=== PATIENT | male | born 1985 | race Caucasian/White ===

== ENCOUNTER 2017-11-10 15:24 | Emergency (ER) | payer OTHER ==
[~2017-11-10] VITALS: Ht 177.8 cm; Wt 76.1 kg
[~2017-11-10 15:24] MED LIST: INSPMPNVLG; MULT-506 PO
[2017-11-10 15:26] VITALS: Ht 177.8 cm; Wt 76.1 kg
[2017-11-10] MEDS ORDERED: SODIUM CHLORIDE 0.9% 500ML 500 ML IV STA (15:32)
[2017-11-10 15:54] LABS: BASO ABS # 0.06 K/uL (0-0.2); EOS % 0.8 %; EOS ABS # 0.05 K/uL (0-0.5); HEMATOCRIT 25.7 % (42-52); HEMOGLOBIN 8.9 g/dL (14.0-18.0); IG# 0.01 K/uL (0.00-0.02); LYMPH % 11.5 %; LYMPH ABS # 0.69 K/uL (1.2-3.4); MEAN CORPUSCULAR HEMOGLOBIN 30.5 pg (25-34); MEAN CORPUSCULAR HGB CONC 34.6 g/dl (32-36); MEAN PLATELET VOLUME 8.8 fL (7.4-10.4); NEUT % 71.5 %; NEUT ABS # 4.29 K/uL (1.4-6.5); PLATELET COUNT 282 K/uL (130-400); RED CELL DISTRIBUTION WIDTH CV 13.2 % (11.5-14.5); RED CELL DISTRIBUTION WIDTH SD 42.3 fL (36.4-46.3)
[2017-11-10] MEDS ORDERED: LABETALOL HCL IV 5 MG/ML 20ML IV STA (16:02)
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
[2017-11-10 16:10] LABS: PTT PATIENT 25.3 SECONDS (21.0-31.0)
[2017-11-10 16:14] LABS: ALBUMIN 2.4 gm/dl (3.4-5.0); CALCIUM 8.8 mg/dl (8.5-10.1); CREATININE 2.42 mg/dl (0.60-1.40); POTASSIUM 4.3 mmol/L (3.5-5.1)
[2017-11-10] MEDS ORDERED: NVLG SC (16:25)
[2017-11-10] MEDS ORDERED: INSDGIPEN SC (16:25)
[2017-11-10] MEDS ORDERED: CHOL100027 PO (16:25)
[2017-11-10 16:26] LABS: TOTAL PROTEIN 6.7 gm/dl (6.4-8.2)
[2017-11-10] MEDS ORDERED: DOXY100C PO (16:54)
[2017-11-10] MEDS ORDERED: DOXYCYCLINE HYCLATE 100 MG CAP PO ONE (17:00)
[2017-11-10 17:19] VITALS: BP 164/98; PULSE 82; TEMP 36.7; O2SAT 94
[2017-11-10] MEDS ORDERED: LISI-461 PO (22:07)
== END 2017-11-10 17:19 | disposition home or self-care (01) ==
LOC: C.EDB 15:26 → C.EDA 17:19
DX: N17.8 Other acute kidney failure (principal); I10 Essential (primary) hypertension; E87.5 Hyperkalemia; D64.9 Anemia, unspecified; R79.9 Abnormal finding of blood chemistry, unspecified; L03.115 Cellulitis of right lower limb; Z87.891 Personal history of nicotine dependence

== ENCOUNTER 2017-11-23 15:48 | Emergency (ER) | payer SELFPAY ==
[~2017-11-23] VITALS: Ht 177.8 cm; Wt 74.7 kg
[~2017-11-23 15:48] MED LIST changes: +CHOL100027 PO; -INSPMPNVLG; +LISI-461 PO
[2017-11-23 15:55] VITALS: TEMP 36.6; Ht 177.8 cm; Wt 74.7 kg
[2017-11-23] MEDS ORDERED: INSDGIPEN SC (16:25)
[2017-11-23] MEDS ORDERED: NVLG SC (16:25)
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
[2017-11-23] MEDS ORDERED: KETOROLAC TROMETHAMINE 30 MG/ML VIAL IV STA (17:04)
[2017-11-23] MEDS ORDERED: ACETAMINOPHEN 325 MG TAB PO STA (17:04)
[2017-11-23 17:39] LABS: BASO % 2.2 %; BASO ABS # 0.15 K/uL (0-0.2); EOS % 1.3 %; EOS ABS # 0.09 K/uL (0-0.5); HEMATOCRIT 27.7 % (42-52); HEMOGLOBIN 9.7 g/dL (14.0-18.0); IG# 0.01 K/uL (0.00-0.02); LYMPH % 21.4 %; LYMPH ABS # 1.44 K/uL (1.2-3.4); MEAN CELL VOLUME 87.1 fL (80-100); MEAN CORPUSCULAR HEMOGLOBIN 30.5 pg (25-34); MONO % 9.7 %; MONO ABS # 0.65 K/uL (0.11-0.59); NEUT % 65.3 %; NEUT ABS # 4.38 K/uL (1.4-6.5); PLATELET COUNT 425 K/uL (130-400); RED CELL DISTRIBUTION WIDTH SD 41.7 fL (36.4-46.3); WHITE BLOOD COUNT 6.72 K/uL (4.8-10.8)
[2017-11-23] MEDS ORDERED: CHOLCAP5 PO (17:55)
[2017-11-23] MEDS ORDERED: LISI-787 PO (17:55)
[2017-11-23 18:00] LABS: CALCIUM 8.9 mg/dl (8.5-10.1); CREATININE 2.51 mg/dl (0.60-1.40); POTASSIUM 3.7 mmol/L (3.5-5.1)
[2017-11-23] MEDS ORDERED: CLINDAMYCIN IV 600 MG in DEXTROSE 5% 50ML 50 ML IV ONE (18:00)
[2017-11-23] MEDS ORDERED: ONDA4TAB46 PO (18:39)
[2017-11-23] MEDS ORDERED: CLIN150C PO (18:39)
[2017-11-23 19:15] VITALS: BP 152/103; PULSE 84; O2SAT 100
== END 2017-11-23 19:33 | disposition home or self-care (01) ==
LOC: C.EDB 15:49
DX: S81.801A Unspecified open wound, right lower leg, initial encounter (principal); V03.10XA Pedestrian on foot injured in collision with car, pick-up truck or van in traffic accident, initial encounter; L03.115 Cellulitis of right lower limb; L08.9 Local infection of the skin and subcutaneous tissue, unspecified; R03.0 Elevated blood-pressure reading, without diagnosis of hypertension; N18.3 Chronic kidney disease, stage 3 (moderate); E11.22 Type 2 diabetes mellitus with diabetic chronic kidney disease; E11.65 Type 2 diabetes mellitus with hyperglycemia; Z87.891 Personal history of nicotine dependence; Z79.4 Long term (current) use of insulin; Z83.3 Family history of diabetes mellitus; Z82.49 Family history of ischemic heart disease and other diseases of the circulatory system

== ENCOUNTER 2017-12-11 20:34 | Inpatient (IN) | payer OTHER ==
[~2017-12-11] VITALS: Ht 177.8 cm; Wt 73.9 kg
[~2017-12-11 20:34] MED LIST changes: -CHOL100027 PO; +CHOLCAP5 PO; +INSDGIPEN SC; -LISI-461 PO; +LISI-787 PO; +NVLG SC; +ONDA4TAB46 PO
[2017-12-11] MEDS ORDERED: SODIUM CHLORIDE 0.9% 1000ML 1,000 ML IV STA (20:51)
[2017-12-11] MEDS ORDERED: ONDANSETRON INJ 2 MG/ML 2 ML VIAL IV STA (20:55)
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
--- NOTE | 2017-12-11 21:13 | DIAGNOSTIC IMAGING REPORT ---
SINGLE VIEW CHEST CLINICAL HISTORY: Generalized abdominal pain. FINDINGS: An AP, portable, upright chest radiograph is compared to study dated 02/15/2010. The examination is degraded by portable technique and patient rotation. The cardiomediastinal silhouette is unremarkable. The lungs and pleural spaces are clear. No pneumothorax is seen. The bony thorax is grossly intact. IMPRESSION: No active disease in the chest. Electronically signed by: Alvarez Juan M.D. 12/11/2017 9:11 PM Dictated Date/Time: 12/11/2017 9:11 PM
[2017-12-11 22:00] LABS: ISTAT CREATININE 2.6 mg/dl (0.6-1.3); ISTAT IONIZED CALCIUM 1.13 mmol/l (1.12-1.32); ISTAT POTASSIUM 4.2 mEq/L (3.3-5.0)
[2017-12-11 22:02] LABS: BASO % 1.6 %; BASO ABS # 0.12 K/uL (0-0.2); EOS % 1.6 %; EOS ABS # 0.12 K/uL (0-0.5); HEMATOCRIT 23.7 % (42-52); HEMOGLOBIN 8.3 g/dL (14.0-18.0); IG# 0.01 K/uL (0.00-0.02); LYMPH % 12.9 %; LYMPH ABS # 0.97 K/uL (1.2-3.4); MEAN CELL VOLUME 85.3 fL (80-100); MEAN CORPUSCULAR HEMOGLOBIN 29.9 pg (25-34); MEAN PLATELET VOLUME 9.3 fL (7.4-10.4); MONO % 12.2 %; MONO ABS # 0.92 K/uL (0.11-0.59); NEUT % 71.6 %; PLATELET COUNT 397 K/uL (130-400); RED CELL DISTRIBUTION WIDTH CV 12.7 % (11.5-14.5); RED CELL DISTRIBUTION WIDTH SD 39.9 fL (36.4-46.3); WHITE BLOOD COUNT 7.54 K/uL (4.8-10.8)
[2017-12-11 22:21] LABS: INFLUENZA A PCR Neg for Influ A (NEG); INFLUENZA B PCR Neg for Influ B (NEG)
[2017-12-11 22:21] LABS: ALBUMIN 2.1 gm/dl (3.4-5.0); ALT/SGPT 18 U/L (12-78); AST/SGOT 14 U/L (15-37); BLOOD UREA NITROGEN 68 mg/dl (7-18); CALCIUM 8.6 mg/dl (8.5-10.1); CARBON DIOXIDE 24 mmol/L (21-32); CREATININE 2.64 mg/dl (0.60-1.40); GLUCOSE 272 mg/dl (70-99); LIPASE 245 U/L (73-393); POTASSIUM 4.2 mmol/L (3.5-5.1); SODIUM 132 mmol/L (136-145)
[2017-12-11 22:24] LABS: ALKALINE PHOSPHATASE 136 U/L (45-117); TOTAL PROTEIN 7.1 gm/dl (6.4-8.2)
--- NOTE | 2017-12-11 23:09 | DIAGNOSTIC IMAGING REPORT ---
RIGHT ANKLE 3 VIEWS; RIGHT FOOT 3 VIEWS CLINICAL HISTORY: Left foot and ankle pain and swelling. Fever. FINDINGS: 3 views of the right ankle and 3 views of the right foot are obtained. No prior studies are available for comparison at the time of dictation. The skeletal structures are osteopenic. Advanced destructive change is seen at the talocalcaneal articulation with bony sclerosis, foci of erosion/destruction, as well as bony overgrowth. There is partial collapse of the talus and calcaneus. No acute fracture is clearly seen in the foot or ankle. The ankle mortise is maintained. A large bone island is incidentally noted in the distal fibula. There is an ankle joint effusion. Destructive change is also seen at the base of the fourth metatarsal with associated periostitis. Mild degenerative change is seen involving the remaining intertarsal joints and the tarsometatarsal joints. Marked edema is seen throughout the regional soft tissues. There is atherosclerotic calcification of the regional arteries. IMPRESSION: 1. Soft tissue swelling and joint effusion. 2. No acute fracture is clearly seen in the right foot or ankle. 3. Osteopenia with advanced destructive change is seen at the talocalcaneal articulation. This may be chronic related to a Charcot foot. Superimposed infection would be impossible to exclude. Clinical correlation will be essential. Correlation with any prior outside imaging studies would also be useful for comparison purposes. 4. Destructive change is also identified at the base of the fourth metatarsal with associated periostitis. Again, infection would be impossible to exclude. Electronically signed by: Alvarez Juan M.D. 12/11/2017 11:08 PM Dictated Date/Time: 12/11/2017 11:01 PM
[2017-12-12] VITALS (15 sets, daily range): BP systolic 105–160; BP diastolic 64–88; PULSE 76–88; TEMP 36.9–37.5; O2SAT 96–98; BMI 23.4
[2017-12-12] MEDS ORDERED: PIPERACILLIN/TAZOBACTAM 4.5 GM/100ML D5W IV STA (00:01)
[2017-12-12] MEDS ORDERED: ACETAMINOPHEN 325 MG TAB PO PRN (00:30)
[2017-12-12] MEDS ORDERED: ACETAMINOPHEN 325 MG TAB PO STA (00:36)
[2017-12-12] MEDS ORDERED: INSULIN GLARGINE SOLOSTAR 100 UNITS/ML 3 ML PEN SC STA (01:16)
[2017-12-12] MEDS ORDERED: DOXYCYCLINE IV 100 MG in DEXTROSE 5% 100ML 100 ML IV STA (01:31)
[2017-12-12] MEDS ORDERED: GLUCOSE 40% GEL 15 GM TUBE PO PRN (01:45)
[2017-12-12] MEDS ORDERED: GLUCOSE 10 TABS/TUBE PO PRN (01:45)
[2017-12-12] MEDS ORDERED: PROCHLORPERAZINE INJ 5 MG in SYRINGE 4 ML IV PRN (01:45)
[2017-12-12] MEDS ORDERED: GLUCAGON FOR INJ 1 MG VIAL SQ PRN (01:45)
[2017-12-12] MEDS ORDERED: DEXTROSE 50% 50 ML SYR IV PRN (01:45)
[2017-12-12] MEDS ORDERED: HYDROmorphone INJ 0.5 MG/0.5 ML SYR IV PRN (01:45)
[2017-12-12] MEDS ORDERED: TRAMADOL HCL 50 MG TAB PO PRN (01:45)
[2017-12-12] MEDS ORDERED: SODIUM CHLORIDE 0.9% 1000ML 1,000 ML IV ONE (02:00)
[2017-12-12] MEDS ORDERED: INSULIN ASPART 100 UNITS/ML 3 ML PEN SC STA (02:19)
[2017-12-12] MEDS ORDERED: [UNRECOGNIZED DRUG - OTHER] PRN (03:15)
[2017-12-12] MEDS ORDERED: DOXY PRN (03:15)
[2017-12-12 05:34] LABS: HEMATOCRIT 19.6 % (42-52); HEMOGLOBIN 6.7 g/dL (14.0-18.0); MEAN CORPUSCULAR HEMOGLOBIN 29.4 pg (25-34); MEAN CORPUSCULAR HGB CONC 34.2 g/dl (32-36); MEAN PLATELET VOLUME 8.9 fL (7.4-10.4); PLATELET COUNT 364 K/uL (130-400); PTT PATIENT 29.9 SECONDS (21.0-31.0); RED CELL DISTRIBUTION WIDTH CV 12.9 % (11.5-14.5); RED CELL DISTRIBUTION WIDTH SD 40.4 fL (36.4-46.3); WHITE BLOOD COUNT 7.31 K/uL (4.8-10.8)
[2017-12-12 05:43] LABS: ALBUMIN 1.8 gm/dl (3.4-5.0); CALCIUM 8.5 mg/dl (8.5-10.1); CREATININE 2.68 mg/dl (0.60-1.40); POTASSIUM 3.9 mmol/L (3.5-5.1)
[2017-12-12 05:45] LABS: TOTAL PROTEIN 6.2 gm/dl (6.4-8.2)
--- NOTE | 2017-12-12 05:53 | DIAGNOSTIC IMAGING REPORT ---
R VENOUS DOPP LOWER EXT UNILAT CLINICAL HISTORY: pain swelling fever pain. Edema. TECHNIQUE: Venous Doppler COMPARISON STUDY: None FINDINGS: Normal study IMPRESSION: Normal study. Mild edema is present The above report was generated using voice recognition software. It may contain grammatical, syntax or spelling errors. Electronically signed by: Slick Howell M.D. 12/12/2017 5:51 AM Dictated Date/Time: 12/12/2017 5:51 AM
[2017-12-12 05:57] LABS: BASO % 1.1 %; BASO ABS # 0.08 K/uL (0-0.2); EOS % 2.6 %; EOS ABS # 0.19 K/uL (0-0.5); IG# 0.02 K/uL (0.00-0.02); LYMPH % 27.6 %; LYMPH ABS # 2.02 K/uL (1.2-3.4); MONO % 11.4 %; MONO ABS # 0.83 K/uL (0.11-0.59); NEUT ABS # 4.17 K/uL (1.4-6.5); RETIC COUNT % 1.5 % (0.5-2.0)
[2017-12-12] MEDS: HEPARIN SOD 5000 UNIT/0.5 ML CARP SQ SCH ×3 (06:00→21:13)
[2017-12-12] MEDS: PIPERACILL/TAZOBAC IV 3.375 GM in NSS 100ML IV SCH ×3 (06:19→23:02)
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
[2017-12-12] MEDS ORDERED: INSULIN GLARGINE SOLOSTAR 100 UNITS/ML 3 ML PEN SC ONE (08:01)
[2017-12-12] MEDS: MULTIVITAMIN TAB PO SCH (08:17)
[2017-12-12] MEDS: INSULIN ASPART 100 UNITS/ML 3 ML PEN SC SCH ×4 (08:19→20:58)
[2017-12-12] MEDS ORDERED: INSULIN GLARGINE SOLOSTAR 100 UNITS/ML 3 ML PEN SC SCH ×2 (09:00→21:00)
[2017-12-12] MEDS ORDERED: PIPERACILL/TAZOBAC CONSULT ACTIVE PRN (09:00)
[2017-12-12] MEDS: ACETAMINOPHEN 325 MG TAB PO PRN (12:11)
--- NOTE | 2017-12-12 13:09 | ORTHOPEDIC CONSULTATION ---
DATE OF CONSULTATION: 12/12/2017 Special attention to right foot swelling. HISTORY OF PRESENT ILLNESS: This is a 32-year-old male with history of diabetes. He notes persistent swelling in the right foot. He states this began in September and he has been treated with wound care clinic due to a nonhealing traumatic wound in the right anterior ankle. He is admitted with diabetic ketoacidosis and increasing sugars. PAST MEDICAL HISTORY: Hypertension, type 1 diabetes, past tobacco abuse, history of chronic renal insufficiency, baseline creatinine 2.5. PAST SURGICAL HISTORY: Eye surgery, parotid surgery. Right foot exam does show moderate to significant swelling in the foot. He has very mild overlying erythema, but no streaking erythema. He can flex and extend the ankle joint without significant discomfort. He has no clinical signs of septic joint. He can wiggle his toes. He has open wounds over the anterior aspect of the ankle with eschar. No gross purulent drainage. Calf is nontender. Radiographs of the foot and ankle do show significant destructive changes in the foot. A periosteal reaction is seen in the base of the fourth metacarpal as well. Ankle fusion suggested on x-ray. ASSESSMENT: A 32-year-old diabetic male with: 1. Right foot Charcot joint versus infection. 2. Poorly controlled diabetes. 3. Acute on chronic renal failure. PLAN: Clinically, examination does suggest Charcot foot rather than septic joint. At this point in time, I do not see any surgical indications and do not feel he would benefit from drainage of the ankle. Recommendation is for MRI with and without contrast to rule out any osteomyelitic lesion. We will continue to follow and evaluate. He will likely benefit from evaluation by Dr. Molina, a foot and ankle specialist. I do recommend strict glycemic control as well. I spoke with Dr. Bennett about MRI. He would like to hydrate the patient and consider MRI with and without contrast on Wednesday.
[2017-12-12] MEDS: NSS + 20MEQ KCL 1000ML 1,000 ML IV SCH (14:05)
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
[2017-12-12] MEDS: DOXYCYCLINE IV 100 MG in DEXTROSE 5% 100ML 100 ML IV SCH (21:05)
[2017-12-13] MEDS: NSS + 20MEQ KCL 1000ML 1,000 ML IV SCH ×2 (02:03→10:43)
[2017-12-13] MEDS: PIPERACILL/TAZOBAC IV 3.375 GM in NSS 100ML IV SCH ×3 (05:46→22:15)
[2017-12-13] MEDS: HEPARIN SOD 5000 UNIT/0.5 ML CARP SQ SCH ×3 (05:48→21:49)
[2017-12-13] MEDS: ACETAMINOPHEN 325 MG TAB PO PRN (05:51)
[2017-12-13 06:22] LABS: HEMATOCRIT 26.9 % (42-52); HEMOGLOBIN 9.3 g/dL (14.0-18.0); MEAN CELL VOLUME 87.3 fL (80-100); MEAN CORPUSCULAR HEMOGLOBIN 30.2 pg (25-34); MEAN CORPUSCULAR HGB CONC 34.6 g/dl (32-36); MEAN PLATELET VOLUME 8.9 fL (7.4-10.4); PLATELET COUNT 361 K/uL (130-400); RED CELL DISTRIBUTION WIDTH CV 13.7 % (11.5-14.5)
[2017-12-13 06:53] VITALS: BP 166/90; PULSE 76; TEMP 36.7; O2SAT 96
[2017-12-13 07:05] LABS: CALCIUM 8.7 mg/dl (8.5-10.1); CREATININE 2.59 mg/dl (0.60-1.40); PHOSPHORUS 4.2 mg/dl (2.5-4.9); POTASSIUM 4.2 mmol/L (3.5-5.1); TOTAL PROTEIN 6.6 gm/dl (6.4-8.2)
[2017-12-13] MEDS ORDERED: PHARMACY GLYCEMIC MGMT CONSULT PRN (08:15)
[2017-12-13] MEDS: INSULIN ASPART 100 UNITS/ML 3 ML PEN SC SCH ×4 (08:32→21:00)
[2017-12-13] MEDS: INSULIN GLARGINE SOLOSTAR 100 UNITS/ML 3 ML PEN SC SCH ×2 (08:33→21:44)
[2017-12-13] MEDS: MULTIVITAMIN TAB PO SCH (08:33)
--- NOTE | 2017-12-13 09:14 | Nephrology Progress Note ---
Nephrology Progress Note Date of Service: Dec 13, 2017. Subjective 32 yo male with uncontrolled diabetes with infection of his ankle and low blood counts requiring two units of blood yesterday. has an underlying charcot foot. did have low blood sugars this morning and quit smoking over a year ago. for mri today. tolerating the fluids. Objective Date Time Temp Pulse Resp B/P (MAP) Pulse Ox O2 Delivery O2 Flow Rate FiO2 12/13/17 08:10 Room Air 12/13/17 06:53 36.7 76 18 166/90 (115) 96 Room Air 12/13/17 00:00 Room Air 12/12/17 22:35 37.1 78 20 160/88 (112) 98 Room Air 12/12/17 16:00 Room Air 12/12/17 15:45 37.3 78 17 130/80 (97) 96 Room Air 12/12/17 12:55 37.5 82 16 116/70 97 12/12/17 11:50 37.3 79 18 131/78 12/12/17 11:20 37.1 76 16 134/80 12/12/17 11:05 37.2 76 16 130/79 12/12/17 10:45 37.2 77 18 124/80 97 12/12/17 10:10 37.0 80 16 129/76 12/12/17 09:10 37.1 82 16 118/71 Physical Exam: General-aaox3 Eyes-no scleral icterus ENT-mmm Neck-supple Lungs-cta Heart-rrr Abdomen-bs+ s/nt/nd Extremities-right foot swollen Neuro-+neuropathy Current Inpatient Medications Medications (Trade) Dose Ordered Sig/Everton Route Start Time Stop Time Status Last Admin Dose Admin Doxycycline Hyclate 100 mg/ Dextrose 110 ml @ 50 mls/hr BID IV 12/12/17 21:00 12/22/17 20:59 12/12/17 21:05 50 MLS/HR Heparin Sodium (Porcine) (Heparin Sq 5000 Unit/0.5ml) 5,000 unit Q8H SQ 12/12/17 06:00 01/11/18 05:59 12/13/17 05:48 5,000 UNIT Acetaminophen (Tylenol Tab) 650 mg Q4H PRN PO 12/12/17 01:45 01/11/18 01:44 12/13/17 05:51 650 MG Insulin Aspart (novoLOG ASPART) SLIDING SCALE If C... ACHS SC 12/12/17 06:30 01/11/18 06:59 12/13/17 08:32 2 UNITS Glucose (Glucose 40% Gel) 15-30 GRAMS 15 GRAMS... UD PRN PO 12/12/17 01:45 01/11/18 01:44 Glucose (Glucose Chew Tab) 4-8 Tablets 4 Tabl... UD PRN PO 12/12/17 01:45 01/11/18 01:44 Dextrose (Dextrose 50% 50ML Syringe) 25-50ML OF 50% DW IV FOR... UD PRN IV 12/12/17 01:45 01/11/18 01:44 Glucagon (Glucagon Inj) 1 mg UD PRN SQ 12/12/17 01:45 01/11/18 01:44 Miscellaneous Information (Consult) 1 ea DAILY PRN N/A 12/12/17 09:00 01/11/18 08:59 Prochlorperazine Edisylate 5 mg/ Syringe 5 ml @ 5 mls/min Q6H PRN IV 12/12/17 01:45 01/11/18 01:44 Multivitamins (Multivitamin Tab) 1 tab DAILY PO 12/12/17 09:00 01/11/18 08:59 12/13/17 08:33 1 TAB Hydromorphone HCl (Dilaudid Inj) 0.5 mg Q3H PRN IV 12/12/17 01:45 12/26/17 01:44 Tramadol HCl (Ultram Tab) not relieved by tylenol @ Q6H PRN PO 12/12/17 01:45 01/11/18 01:44 Piperacillin Sod/ Tazobactam Sod 3.375 gm/Sodium Chloride 115 ml @ 28.75 mls/ hr Q8H IV 12/12/17 06:00 01/23/18 05:59 12/13/17 05:46 28.75 MLS/HR Miscellaneous Information 1 ea UD PRN N/A 12/12/17 03:15 01/11/18 03:14 Potassium Chloride/Sodium Chloride 1,000 ml @ 100 mls/hr Q10H IV 12/12/17 13:45 12/13/17 19:44 12/13/17 02:03 100 MLS/HR Miscellaneous Information (Consult Glycemic Management Pharmacy) 1 ea UD PRN N/A 12/13/17 08:15 01/12/18 08:14 Insulin Glargine (Lantus Solostar Pen) PLEASE SEE PROTOCOL TEXT Q12 SC 12/13/17 09:00 01/11/18 08:59 12/13/17 08:33 15 UNITS Last 24 Hours Test 12/12/17 10:38 12/12/17 11:47 12/12/17 16:54 12/12/17 20:50 Urine Color YELLOW Urine Appearance CLEAR Urine pH 5.0 Urine Specific Spangler 1.020 Urine Protein 3+ Urine Glucose (UA) 3+ Urine Ketones NEG Urine Occult Blood NEG Urine Nitrite NEG Urine Bilirubin NEG Urine Urobilinogen NEG Urine Leukocyte Esterase NEG Urine WBC (Auto) 1-5 /hpf Urine RBC (Auto) 0-4 /hpf Urine Hyaline Casts (Auto) 5-10 /lpf Urine Epithelial Cells (Auto) >30 /lpf Urine Bacteria (Auto) NEG Urine Renal Epithelial Cells /lpf Urine Pathogenic Casts See comments /lpf Urine Mucus PRESENT Bedside Glucose 273 mg/dl 162 mg/dl 142 mg/dl Test 12/13/17 05:53 White Blood Count 5.80 K/uL Red Blood Count 3.08 M/uL Hemoglobin 9.3 g/dL Hematocrit 26.9 % Mean Corpuscular Volume 87.3 fL Mean Corpuscular Hemoglobin 30.2 pg Mean Corpuscular Hemoglobin Concent 34.6 g/dl RDW Standard Deviation 44.0 fL RDW Coefficient of Variation 13.7 % Platelet Count 361 K/uL Mean Platelet Volume 8.9 fL Sodium Level 139 mmol/L Potassium Level 4.2 mmol/L Chloride Level 109 mmol/L Carbon Dioxide Level 25 mmol/L Anion Gap 5.0 mmol/L Blood Urea Nitrogen 41 mg/dl Creatinine 2.59 mg/dl Est Creatinine Clear Calc Drug Dose 41.9 ml/min Estimated GFR () 36.1 Estimated GFR (Non- 31.2 BUN/Creatinine Ratio 15.9 Random Glucose 49 mg/dl Calcium Level 8.7 mg/dl Phosphorus Level 4.2 mg/dl Magnesium Level 2.2 mg/dl Total Bilirubin 0.4 mg/dl Aspartate Amino Transf (AST/SGOT) 12 U/L Alanine Aminotransferase (ALT/SGPT) 14 U/L Alkaline Phosphatase 104 U/L Total Protein 6.6 gm/dl Albumin 2.0 gm/dl Globulin 4.6 gm/dl Albumin/Globulin Ratio 0.4 Assessment & Plan JUANA-difficult to say if this is natural progression of ckd in the setting of uncontrolled diabetes and htn vs juana from cellulitis and anemia. creatinine is mildly better today compared to yesterday however overall high likelihood of eventually needing dialysis at some point in his life. continue the fluids for another twenty four hours and plan on stopping them tomorrow. eating and drinking well. Anemia-may have anemia from ckd and may benefit from procrit which we will evaluate at next office visit. did have iron deficienty anemia and hg still below 10 and likely iron levels repleted from the blood transfusion.
[2017-12-13] MEDS: DOXYCYCLINE IV 100 MG in DEXTROSE 5% 100ML 100 ML IV SCH ×2 (10:42→20:37)
--- NOTE | 2017-12-13 11:30 | DIAGNOSTIC IMAGING REPORT ---
MRI OF THE RIGHT ANKLE WITHOUT CONTRAST CLINICAL HISTORY: Right ankle pain and swelling. Diabetic foot infection. Evaluate for osteomyelitis. COMPARISON STUDY: Right ankle and right foot radiographs December 11, 2017. TECHNIQUE: Utilizing a 1.5 Mirian magnet and dedicated coil, multiplanar, multiecho imaging of the right ankle and hindfoot was performed without intravenous contrast due to patient's relative renal insufficiency. FINDINGS: A marker was placed on the skin at site of laceration. No associated abscess is identified on this unenhanced examination. Note is made of a markedly abnormal appearance of the right ankle centered on the subtalar joint where there is extensive bony destruction with erosion of the talus and posterior superior aspect of the calcaneus adjacent to the posterior facet of the subtalar joint. There is possible discontinuity of the talar neck. This may reflect a talar neck fracture. There is also abnormal signal within the distal right tibia. There are multiple associated bone fragments with a tibiotalar joint effusion with intra-articular joint bodies. T1 signal is markedly diminished with increased T2 signal within these bones. There is also marrow signal abnormality within the navicular as well as the base of the right fourth metatarsal. There is a associated subcutaneous and intramuscular edema which is nonspecific. Note is also made of increased fluid within multiple tendon sheaths, most pronounced within the flexor tendon sheaths. There is T2 hypointense material within several tendencies. The findings suggest tenosynovitis. No masses identified on this unenhanced exam. Distal Achilles and plantar fascia are intact. IMPRESSION: 1. Markedly abnormal appearance of the right ankle with extensive marrow signal abnormality and bony destruction centered on the subtalar joint with associated erosion of the talus and posterior superior aspect of the calcaneus with possible discontinuity of the talar neck which may reflect a talar neck fracture. Numerous associated bone fragments. Tibiotalar and subtalar joint effusions which contain joint bodies. The appearance favors a neuropathic arthropathy. Osteomyelitis could appear similar although is considered less likely. 2. Increased fluid within multiple tendon sheaths which contains complex material, most pronounced within the flexor tendons. This suggests tenosynovitis. 3. Nonspecific subcutaneous and muscular edema of the right ankle and foot. 4. Marrow signal abnormality within the base of the right fourth metatarsal which may reflect a healing fracture or neuropathic change. Osteomyelitis is within the differential although considered less likely. Electronically signed by: Sharan Bishop M.D. 12/13/2017 11:29 AM Dictated Date/Time: 12/13/2017 11:10 AM
[2017-12-13 11:40] VITALS: Ht 177.8 cm; Wt 73.9 kg
--- NOTE | 2017-12-13 12:50 | Progress Note ---
Internal Med Progress Note Date of Service: Dec 12, 2017. Provider Documentation: SUBJECTIVE: The patient was examined and seen in the telemetry unit. He is a 32-year-old male with insulin-dependent diabetes admitted with hypoglycemic symptoms and noted to have right ankle infection. Right ankle pain and swelling has been going on for over a month and got worse recently. The ulcerated area was noted to be for the last few days Patient denies to have any fever or chills He has been feeling better today and denies any symptoms 12/13 Has had Low blood sugar on 2 occasions Supplemental glucose given Complains right ankle pain ,no fever ,chills, OBJECTIVE: Vital Signs-as noted below Exam: General-no apparent distress at rest Eyes-normal ENT-normal Neck-supple Lungs-clear to auscultate bilaterally Heart-regular, no murmur appreciated Abdomen-benign, nontender, no organomegaly, bowel sounds present Extremities-trace edema on left without any other significant change. 1+ edema on the right with swelling and deformity around right ankle and an elongated ulcer to the dorsum Very minimal drainage from the ulcer, no significant redness and/or tenderness in the adjoining area. Ankle movement on the right side minimally painful Neuro-alert, awake and oriented 3 Lab data as noted below. ASSESSMENT & PLAN: Charcot's joint Right Ankle MRI of the right Ankle -doubt Osteomyelitis Management as per Ortho Diabetic foot infection, R R ankle effusion,less likely to have septic joint History of RLE injury 2 months ago. RLE wound had slowly healed sp antibiotic Rx Possible osteomyelitis-awaiting MRI with and without contrast Cultures-Pending. Baseline ESR-38, CRP-18.50. Doxycycline and Cefepime for diabetic foot infection. Orthopedics consult RE R ankle effusion -appreciate Input Podiatry consult RE diabetic foot. Clinically stable DM-Type 1, suboptimal control Sugars elevated more than usual the last 3 days likely secondary to infection. May benefit from pharmacy glycemic consult. Has had recurrent hypoglycemia Will ask Pharmacy management of Diabetes Anemia, likely secondary to chronic kidney disease. Complicated by Infection Hb dropped to <7 Getting 2 units of PRBC Hb >9 Acute renal failure on chronic renal insufficiency. Hold home ACEI for now until creatinine at baseline. Nephrology evaluation for ARF on CRI if kidney function does not improve in a.m. appreciate nephrology input Hypertension, stable. Past tobacco abuse. DM medication DVT prophylaxis: Heparin subQ. Full code. Vital Signs: Date Time Temp Pulse Resp B/P (MAP) Pulse Ox O2 Delivery O2 Flow Rate FiO2 12/13/17 08:10 Room Air 12/13/17 06:53 36.7 76 18 166/90 (115) 96 Room Air 12/13/17 00:00 Room Air 12/12/17 22:35 37.1 78 20 160/88 (112) 98 Room Air 12/12/17 16:00 Room Air 12/12/17 15:45 37.3 78 17 130/80 (97) 96 Room Air 12/12/17 12:55 37.5 82 16 116/70 97 Lab Results: Results Past 24 Hours Test 12/12/17 16:54 12/12/17 20:50 12/13/17 05:53 12/13/17 07:08 Range/Units Bedside Glucose 162 142 55 70-99 mg/dl White Blood Count 5.80 4.8-10.8 K/uL Red Blood Count 3.08 4.7-6.1 M/uL Hemoglobin 9.3 14.0-18.0 g/dL Hematocrit 26.9 42-52 % Mean Corpuscular Volume 87.3 80-100 fL Mean Corpuscular Hemoglobin 30.2 25-34 pg Mean Corpuscular Hemoglobin Concent 34.6 32-36 g/dl RDW Standard Deviation 44.0 36.4-46.3 fL RDW Coefficient of Variation 13.7 11.5-14.5 % Platelet Count 361 130-400 K/uL Mean Platelet Volume 8.9 7.4-10.4 fL Sodium Level 139 136-145 mmol/L Potassium Level 4.2 3.5-5.1 mmol/L Chloride Level 109 98-107 mmol/L Carbon Dioxide Level 25 21-32 mmol/L Anion Gap 5.0 3-11 mmol/L Blood Urea Nitrogen 41 7-18 mg/dl Creatinine 2.59 0.60-1.40 mg/dl Est Creatinine Clear Calc Drug Dose 41.9 ml/min Estimated GFR () 36.1 Estimated GFR (Non- 31.2 BUN/Creatinine Ratio 15.9 10-20 Random Glucose 49 70-99 mg/dl Calcium Level 8.7 8.5-10.1 mg/dl Phosphorus Level 4.2 2.5-4.9 mg/dl Magnesium Level 2.2 1.8-2.4 mg/dl Total Bilirubin 0.4 0.2-1 mg/dl Aspartate Amino Transf (AST/SGOT) 12 15-37 U/L Alanine Aminotransferase (ALT/SGPT) 14 12-78 U/L Alkaline Phosphatase 104 45-117 U/L Total Protein 6.6 6.4-8.2 gm/dl Albumin 2.0 3.4-5.0 gm/dl Globulin 4.6 2.5-4.0 gm/dl Albumin/Globulin Ratio 0.4 0.9-2 Test 12/13/17 07:28 12/13/17 07:52 12/13/17 12:01 Range/Units Bedside Glucose 71 103 139 70-99 mg/dl
[2017-12-13 13:08] VITALS: BP 160/100; PULSE 76
--- NOTE | 2017-12-13 13:12 | Pharmacy Progress Note ---
Glycemic Control Intl Consult Date of Service Dec 13, 2017. Scope Glycemic Pharmacist consulted by Dr Bennett on 12/13/17 for glycemic control and to write orders per [facility] inpatient glycemic control protocol Objective Weight (Kilograms): 73.900 Accuchecks BSG (last 24hrs): Test 12/12/17 16:54 12/12/17 20:50 12/13/17 05:53 12/13/17 07:08 Bedside Glucose 162 mg/dl (70-99) 142 mg/dl (70-99) 55 mg/dl (70-99) Random Glucose 49 mg/dl (70-99) Test 12/13/17 07:28 12/13/17 07:52 12/13/17 12:01 Bedside Glucose 71 mg/dl (70-99) 103 mg/dl (70-99) 139 mg/dl (70-99) Laboratory Data (last 24hrs) Test 12/13/17 05:53 Anion Gap 5.0 mmol/L BUN/Creatinine Ratio 15.9 Blood Urea Nitrogen 41 mg/dl Creatinine 2.59 mg/dl Potassium Level 4.2 mmol/L Sodium Level 139 mmol/L White Blood Count 5.80 K/uL HbA1c 13.7 11/10/17 Recent Pertinent Medications Outpatient Anti-diabetic Regimen: * Lantus 20u Q12 plus Novolog SSI, per pt he averages about 40u of insulin/day * A1c = 13.7 % 11/10/17 Risk Factors for Insulin Resistance: * Infection:diabetic foot infxn Assessment & Plan ASSESSMENT: * Mr. Hicks is a poorly controlled DMI. He p/w suspected diabetic foot infxn being treated with doxy and zosyn. Most recent A1C indicative of poor glycemic management. He was previously on an insulin pump but due to insurance/monetary factors he was converted to basal/bolus insulin. This afternoon I met with Mr. Hicks myself. He endorses a daily insulin regimen that yields a total of 40units , Lantus 20u Q12 + Novolog SSI. He received a total of 90units of lantus on 12/12. Pharmacy now consulted on 12/13/17 due to low this AM. Pt states that he is prone to AM fasting lows. PLAN FOR INPATIENT GLYCEMIC CONTROL: * Basal insulin with LANTUS 15 units this AM and scale set for HS on 12/13/17. 5 units if BSG 110 or greater. 0 units if less than 110. I feel backing off significantly on his metabolic coverage is necessary due to the large doses of lantus he received 12/12/17. * Correctional Insulin with NOVOLOG / REGULAR per scale ACHS or Q6hrs while NPO * Goal Range: Low 110 mg/dL - High 140 mg/dL * Correction Factor: 25 mg/dL/unit * Nutritional / Prandial insulin per carb ratio of 1 unit per 15 grams CHO consumed * Please note that the plan above was derived based on current level of insulin resistance and hospital stress. These recommendations are appropriate for inpatient admission only. Plan of care upon discharge will need to be reassessed to avoid potential outpatient hypo/hyperglycemia. Thank you.
[2017-12-13] MEDS ORDERED: HydrALAZINE HCL 20 MG/ML VIAL IV. PRN (13:15)
--- NOTE | 2017-12-13 13:34 | Orthopedic Progress Note ---
Orthopedic Progress Note Date of Service Dec 13, 2017. Subjective Reports: feeling well Objective calves soft nontender, capillary refill less than 2 sec., dressing C/D/I, A&O x3 , toes mobile DRESSING CHANGED THIS AM. HE HAS 2 OPEN WOUNDS AT THE ANTERIOR/DORSAL PORTION OF THE ANKLE. THEY ARE NOT ACTIVELY DRAINING AND HAVE SOME ESCHAR FORMATION. OVERALL EDEMA AND ERYTHEMA SEEMS TO BE IMPROVING. Date Time Temp Pulse Resp B/P (MAP) Pulse Ox O2 Delivery O2 Flow Rate FiO2 12/13/17 13:08 76 160/100 (120) 12/13/17 08:10 Room Air 12/13/17 06:53 36.7 76 18 166/90 (115) 96 Room Air 12/13/17 00:00 Room Air 12/12/17 22:35 37.1 78 20 160/88 (112) 98 Room Air 12/12/17 16:00 Room Air 12/12/17 15:45 37.3 78 17 130/80 (97) 96 Room Air Laboratory Results 24 Hours: Test 12/13/17 05:53 Hematocrit 26.9 % Hemoglobin 9.3 g/dL Additional Notes: MRI RESULTS: 1. Markedly abnormal appearance of the right ankle with extensive marrow signal abnormality and bony destruction centered on the subtalar joint with associated erosion of the talus and posterior superior aspect of the calcaneus with possible discontinuity of the talar neck which may reflect a talar neck fracture. Numerous associated bone fragments. Tibiotalar and subtalar joint effusions which contain joint bodies. The appearance favors a neuropathic arthropathy. Osteomyelitis could appear similar although is considered less likely. 2. Increased fluid within multiple tendon sheaths which contains complex material, most pronounced within the flexor tendons. This suggests tenosynovitis. 3. Nonspecific subcutaneous and muscular edema of the right ankle and foot. 4. Marrow signal abnormality within the base of the right fourth metatarsal which may reflect a healing fracture or neuropathic change. Osteomyelitis is within the differential although considered less likely. Assessment & Plan Assessment: RIGHT CHARCOT FOOT Plan: PATIENT MRI CONSISTENT WITH CHARCOT AND DEGENERATIVE CHANGES. HE IS NON- SURGICAL AT THIS TIME. RECOMMEND OUTPATIENT FOLLOW UP WITH DR. RAMESH IN 2-4 WEEKS. PATIENT SHOULD CONTINUE TO SEE WOUND CARE. WOULD CONSIDER CUSTOM ORTHOTICS OR ORTHOTIC SHOES BUT CAN WAIT UNTIL OUTPATIENT EVAL FOR EXACT RECOMMENDATIONS. ORTHOPEDICS WILL SIGN OFF. THANK YOU.
--- NOTE | 2017-12-13 13:35 | Consultant Recommendations ---
Foxer Recommendations Date of Service Dec 13, 2017. Foxer Recommendations PATIENT MRI CONSISTENT WITH CHARCOT AND DEGENERATIVE CHANGES. HE IS NON- SURGICAL AT THIS TIME. RECOMMEND OUTPATIENT FOLLOW UP WITH DR. RAMESH IN 2-4 WEEKS. [phone] PATIENT SHOULD CONTINUE TO SEE WOUND CARE. WOULD CONSIDER CUSTOM ORTHOTICS OR ORTHOTIC SHOES BUT CAN WAIT UNTIL OUTPATIENT EVAL FOR EXACT RECOMMENDATIONS. ORTHOPEDICS WILL SIGN OFF. THANK YOU.
[2017-12-13 15:33] VITALS: BP 154/85; PULSE 80; TEMP 36.8; O2SAT 98
[2017-12-13 16:00] VITALS: O2SAT 98
[2017-12-13 22:10] VITALS: BP 165/91; PULSE 80
[2017-12-13] MEDS ORDERED: AMLODIPINE BESYLATE 5 MG TAB PO ONE (22:18)
[2017-12-14] VITALS (8 sets, daily range): BP systolic 122–178; BP diastolic 72–99; PULSE 75–84; TEMP 36.7–37.2; O2SAT 96–98
[2017-12-14] MEDS: PIPERACILL/TAZOBAC IV 3.375 GM in NSS 100ML IV SCH (05:49)
[2017-12-14] MEDS: HEPARIN SOD 5000 UNIT/0.5 ML CARP SQ SCH ×3 (05:51→21:12)
[2017-12-14 06:38] LABS: HEMATOCRIT 27.4 % (42-52); HEMOGLOBIN 9.3 g/dL (14.0-18.0); MEAN CELL VOLUME 87.5 fL (80-100); MEAN CORPUSCULAR HEMOGLOBIN 29.7 pg (25-34); MEAN CORPUSCULAR HGB CONC 33.9 g/dl (32-36); MEAN PLATELET VOLUME 8.6 fL (7.4-10.4); PLATELET COUNT 355 K/uL (130-400); RED CELL DISTRIBUTION WIDTH CV 13.5 % (11.5-14.5); RED CELL DISTRIBUTION WIDTH SD 43.4 fL (36.4-46.3); WHITE BLOOD COUNT 5.54 K/uL (4.8-10.8)
[2017-12-14 07:16] LABS: ALBUMIN 1.8 gm/dl (3.4-5.0); CALCIUM 9.1 mg/dl (8.5-10.1); CREATININE 2.48 mg/dl (0.60-1.40); POTASSIUM 4.3 mmol/L (3.5-5.1); TOTAL PROTEIN 6.6 gm/dl (6.4-8.2)
[2017-12-14] MEDS: MULTIVITAMIN TAB PO SCH (08:41)
[2017-12-14] MEDS: INSULIN ASPART 100 UNITS/ML 3 ML PEN SC SCH ×4 (08:45→21:18)
[2017-12-14] MEDS: DOXYCYCLINE IV 100 MG in DEXTROSE 5% 100ML 100 ML IV SCH ×2 (10:36→21:05)
[2017-12-14] MEDS ORDERED: INSULIN GLARGINE SOLOSTAR 100 UNITS/ML 3 ML PEN SC ONE ×2 (11:00→21:00)
--- NOTE | 2017-12-14 12:54 | Pharmacy Progress Note ---
Pharmacy Glycemic Short Note 2 Date of Service Dec 14, 2017. ASSESSMENT: * Mr. Hicks's AM fasting was low, again ~60mg/dL. He received 5 units of lantus with an HS BSG of 120. His PO intake has remained consistent. Poor renal fxn continues, possibly increasing his insulin sensitivity. PLAN FOR INPATIENT GLYCEMIC CONTROL: * Basal insulin * AM Lantus 15units on 12/13/17 yielded adequate BSGs throughout the day. Moved AM lantus to lunch today. Will adjust HS lantus scale to be much more conservative to mitigate further AM fasting lows. BSG under 200 give 0 units, BSG 200 and up give 5 units * Bolus insulin * NovoLog per scale ACHS or Q6hrs while NPO * Goal Range: Low 110 mg/dL - High 140 mg/dL * Correction Factor: 25 mg/dL/unit * Nutritional / Prandial insulin per carb ratio of 1 unit per 15 grams CHO consumed
--- NOTE | 2017-12-14 17:20 | Progress Note ---
Subjective Date of Service: Dec 14, 2017. Subjective Pt evaluation today including: conversation w/ patient, physical exam, lab review, review of studies, review of inpatient medication list Saw/examined the patient in room 286 States his R ankle is still painful; difficult when ambulating due to the deformity States he was once on an insulin pump, but lost insurance and could not afford it; now he has insurance and would like to get that pump back Problem List Medical Problems: (1) Acute renal failure Status: Acute (2) Anemia Status: Acute (3) Cellulitis Status: Acute (4) Cellulitis Status: Acute (5) Cellulitis of right lower extremity Status: Acute (6) Chronic wound of extremity Status: Acute (7) CKD (chronic kidney disease) Status: Acute (8) Hyperglycemia Status: Acute (9) Hyperkalemia Status: Acute (10) Leg pain Status: Acute (11) Leg swelling Status: Acute Review of Systems Constitutional: No fever, No chills, No weakness Respiratory: No cough, No sputum, No shortness of breath Cardiac: No chest pain Abdomen: No pain, No nausea, No vomiting, No diarrhea, No constipation, No GI bleeding Musculoskeletal: + see HPI, + joint pain, + muscle pain, + swelling Male : No dysuria, No urinary frequency Heme: No abnormal bleeding/bruising Medications Current Inpatient Medications Medications (Trade) Dose Ordered Sig/Everton Route Start Time Stop Time Status Last Admin Dose Admin Doxycycline Hyclate 100 mg/ Dextrose 110 ml @ 50 mls/hr BID IV 12/12/17 21:00 12/22/17 20:59 12/14/17 10:36 50 MLS/HR Heparin Sodium (Porcine) (Heparin Sq 5000 Unit/0.5ml) 5,000 unit Q8H SQ 12/12/17 06:00 01/11/18 05:59 12/14/17 14:29 5,000 UNIT Acetaminophen (Tylenol Tab) 650 mg Q4H PRN PO 12/12/17 01:45 01/11/18 01:44 12/13/17 05:51 650 MG Insulin Aspart (novoLOG ASPART) SLIDING SCALE If C... ACHS SC 12/12/17 06:30 01/11/18 06:59 12/14/17 12:05 4 UNITS Glucose (Glucose 40% Gel) 15-30 GRAMS 15 GRAMS... UD PRN PO 12/12/17 01:45 01/11/18 01:44 Glucose (Glucose Chew Tab) 4-8 Tablets 4 Tabl... UD PRN PO 12/12/17 01:45 01/11/18 01:44 Dextrose (Dextrose 50% 50ML Syringe) 25-50ML OF 50% DW IV FOR... UD PRN IV 12/12/17 01:45 01/11/18 01:44 Glucagon (Glucagon Inj) 1 mg UD PRN SQ 12/12/17 01:45 01/11/18 01:44 Prochlorperazine Edisylate 5 mg/ Syringe 5 ml @ 5 mls/min Q6H PRN IV 12/12/17 01:45 01/11/18 01:44 Multivitamins (Multivitamin Tab) 1 tab DAILY PO 12/12/17 09:00 01/11/18 08:59 12/14/17 08:41 1 TAB Hydromorphone HCl (Dilaudid Inj) 0.5 mg Q3H PRN IV 12/12/17 01:45 12/26/17 01:44 Tramadol HCl (Ultram Tab) not relieved by tylenol @ Q6H PRN PO 12/12/17 01:45 01/11/18 01:44 Miscellaneous Information 1 ea UD PRN N/A 12/12/17 03:15 01/11/18 03:14 Miscellaneous Information (Consult Glycemic Management Pharmacy) 1 ea UD PRN N/A 12/13/17 08:15 01/12/18 08:14 Amlodipine Besylate (Norvasc Tab) 2.5 mg HS PO 12/14/17 21:00 01/13/18 20:59 Insulin Glargine (Lantus Solostar Pen) PLEASE SEE PROTOCOL TE... TODAY@2100 ONCE SC 12/14/17 21:00 12/14/17 21:01 Objective Vital Signs Date Time Temp Pulse Resp B/P (MAP) Pulse Ox O2 Delivery O2 Flow Rate FiO2 12/14/17 16:00 98 12/14/17 15:35 36.7 75 18 178/99 (125) 98 Room Air 12/14/17 11:24 36.8 78 18 169/95 (119) 96 Room Air 12/14/17 08:00 Room Air 12/14/17 07:24 36.9 82 18 149/87 (107) 96 Room Air 12/14/17 04:00 36.9 84 20 122/72 (89) 98 Room Air 12/14/17 00:28 37.0 83 16 154/89 (110) 96 Room Air 12/14/17 00:00 Room Air 12/13/17 22:10 80 165/91 (115) Physical Exam General Appearance: no apparent distress Respiratory/Chest: lungs clear, normal breath sounds, no respiratory distress, no accessory muscle use Cardiovascular: regular rate, rhythm, no edema, no murmur Extremities: + swelling (R ankle, foot swelling; mild erythema noted; ankle is inverted and foot deformity noted), + pertinent finding Laboratory Results Last 24 Hours Test 12/13/17 20:56 12/14/17 03:13 12/14/17 06:21 12/14/17 07:38 Bedside Glucose 120 mg/dl 62 mg/dl 63 mg/dl White Blood Count 5.54 K/uL Red Blood Count 3.13 M/uL Hemoglobin 9.3 g/dL Hematocrit 27.4 % Mean Corpuscular Volume 87.5 fL Mean Corpuscular Hemoglobin 29.7 pg Mean Corpuscular Hemoglobin Concent 33.9 g/dl RDW Standard Deviation 43.4 fL RDW Coefficient of Variation 13.5 % Platelet Count 355 K/uL Mean Platelet Volume 8.6 fL Sodium Level 138 mmol/L Potassium Level 4.3 mmol/L Chloride Level 109 mmol/L Carbon Dioxide Level 24 mmol/L Anion Gap 5.0 mmol/L Blood Urea Nitrogen 30 mg/dl Creatinine 2.48 mg/dl Est Creatinine Clear Calc Drug Dose 43.7 ml/min Estimated GFR () 38.1 Estimated GFR (Non- 32.8 BUN/Creatinine Ratio 12.1 Random Glucose 55 mg/dl Calcium Level 9.1 mg/dl Total Bilirubin 0.3 mg/dl Aspartate Amino Transf (AST/SGOT) 11 U/L Alanine Aminotransferase (ALT/SGPT) 12 U/L Alkaline Phosphatase 91 U/L Total Protein 6.6 gm/dl Albumin 1.8 gm/dl Globulin 4.8 gm/dl Albumin/Globulin Ratio 0.4 Test 12/14/17 07:56 12/14/17 08:13 12/14/17 11:46 Bedside Glucose 60 mg/dl 102 mg/dl 184 mg/dl Assessment and Plan This is a 32 year old male with a past medical history of uncontrolled, type 1 diabetes, diabetic nephropathy and CKD stage 3, diabetic retinopathy, neuropathy of bilateral lower extremities and toes, HTN, tobacco use disorder - presents with deformity of the R ankle with pain and subsequently found to have neuropathic arthropathy Neuropathic Arthropathy R Ankle Charcot Joint in the setting of Uncontrolled Diabetes - patient presented with R ankle pain - MRI suggested neuropathic arthropathy - appreciate ortho input, non-surgical at this time - will consult podiatry - patient will need to follow-up with them closely due to diabetes - orthotics were also consulted for possible fitting of a walking boot - outpatient follow-up with podiatry, orthopedics and possibly orthotics Hyperglycemia in the setting of Uncontrolled Type 1 DM - BSGs ~ 300 on arrival - Ha1c noted in October to be 13.7% - significantly uncontrolled; though with anemia, unsure how accurate this is - patient should have an insulin pump and will work on obtaining one as an outpatient - for now, appreciate glycemic control input - will discharge with basal/bolus dosing Anemia - likely of chronic kidney disease - s/p two units pRBCs - outpatient Procrit injections with nephrology Diabetic Nephropathy Acute Kidney Injury superimposed on CKD stage 3 - creatinine elevated - unsure if this is natural progression due to uncontrolled diabetes - appreciate nephrology input - may need to restart MICHELLE-I at low dose, will discuss with nephrology HTN - holding Lisinopril/HCTZ due to kidney function - monitor BP and will give PRN doses of Hydralazine intermittently DVT ppx - subq heparin FULL CODE
[2017-12-14] MEDS: AMLODIPINE BESYLATE 5 MG TAB PO SCH (21:04)
[2017-12-15 06:22] LABS: HEMATOCRIT 26.5 % (42-52); HEMOGLOBIN 9.1 g/dL (14.0-18.0); MEAN CELL VOLUME 87.7 fL (80-100); MEAN CORPUSCULAR HEMOGLOBIN 30.1 pg (25-34); MEAN CORPUSCULAR HGB CONC 34.3 g/dl (32-36); MEAN PLATELET VOLUME 8.7 fL (7.4-10.4); PLATELET COUNT 352 K/uL (130-400); RED CELL DISTRIBUTION WIDTH CV 13.2 % (11.5-14.5); RED CELL DISTRIBUTION WIDTH SD 42.7 fL (36.4-46.3); WHITE BLOOD COUNT 4.39 K/uL (4.8-10.8)
[2017-12-15] MEDS: HEPARIN SOD 5000 UNIT/0.5 ML CARP SQ SCH ×3 (06:29→20:49)
[2017-12-15 06:53] LABS: CALCIUM 8.5 mg/dl (8.5-10.1); CREATININE 2.23 mg/dl (0.60-1.40); POTASSIUM 4.5 mmol/L (3.5-5.1)
[2017-12-15 07:29] VITALS: BP 156/91; PULSE 80; TEMP 36.9; O2SAT 99
[2017-12-15 08:00] VITALS: O2SAT 99
--- NOTE | 2017-12-15 08:06 | Podiatry Consultation ---
Podiatry Consultation Date of Consultation: Dec 15, 2017. Attending Physician: Venus Alex DO History of Present Illness This is a 32 yo male who was recently admitted for uncontrolled glucose and suspicion of DKA. He is type I diabetic with insulin pump at home. He has hx of R A leg and foot wounds that were suspicious for cellulitis and abscess. MRI reveals charcot arthropathy of hindfoot and ankle complex. No abscess was noted. He was seen by orthopedics who recommended outpatient consultation. I was consulted regarding plan going forward for treatment of charcot arthropathy. 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 He attributes the lack of insurance to non- compliance with insulin pump and regimen. On interview he denies pain to the RLE, denies any NVFC CP or SOB. Past Medical/Surgical History Medical Problems: (1) Acute renal failure Status: Acute (2) Anemia Status: Acute (3) Cellulitis Status: Acute (4) Cellulitis Status: Acute (5) Cellulitis of right lower extremity Status: Acute (6) Chronic wound of extremity Status: Acute (7) CKD (chronic kidney disease) Status: Acute (8) Hyperglycemia Status: Acute (9) Hyperkalemia Status: Acute (10) Leg pain Status: Acute (11) Leg swelling Status: Acute Family History Diabetes mellitus Hypertension Social History Smoking Status: Former Smoker Drug Use: none Marital Status: single Housing Status: lives with family Occupation Status: employed Allergies Coded Allergies: No Known Allergies (Verified , 11/23/17) Home Medications Scheduled Cholecalciferol (Vitamin D3), 5,000 INTER.UNIT PO DAILY Insulin Aspart (Novolog), 1 DOSE SC ACHS Insulin Glargine (Lantus Solostar), 20 UNITS SC Q12 Lisinopril/Hctz (Zestoretic 20MG/12.5MG), 1 TAB PO DAILY Multivitamin (Multivitamin), 1 TAB PO DAILY Current Inpatient Medications Current Inpatient Medications Medications (Trade) Dose Ordered Sig/Everotn Route Start Time Stop Time Status Last Admin Dose Admin Doxycycline Hyclate 100 mg/ Dextrose 110 ml @ 50 mls/hr BID IV 12/12/17 21:00 12/22/17 20:59 12/14/17 21:05 50 MLS/HR Heparin Sodium (Porcine) (Heparin Sq 5000 Unit/0.5ml) 5,000 unit Q8H SQ 12/12/17 06:00 01/11/18 05:59 12/15/17 06:29 5,000 UNIT Acetaminophen (Tylenol Tab) 650 mg Q4H PRN PO 12/12/17 01:45 01/11/18 01:44 12/13/17 05:51 650 MG Insulin Aspart (novoLOG ASPART) SLIDING SCALE If C... ACHS SC 12/12/17 06:30 01/11/18 06:59 12/14/17 21:18 3 UNITS Glucose (Glucose 40% Gel) 15-30 GRAMS 15 GRAMS... UD PRN PO 12/12/17 01:45 01/11/18 01:44 Glucose (Glucose Chew Tab) 4-8 Tablets 4 Tabl... UD PRN PO 12/12/17 01:45 01/11/18 01:44 Dextrose (Dextrose 50% 50ML Syringe) 25-50ML OF 50% DW IV FOR... UD PRN IV 12/12/17 01:45 01/11/18 01:44 Glucagon (Glucagon Inj) 1 mg UD PRN SQ 12/12/17 01:45 01/11/18 01:44 Prochlorperazine Edisylate 5 mg/ Syringe 5 ml @ 5 mls/min Q6H PRN IV 12/12/17 01:45 01/11/18 01:44 Multivitamins (Multivitamin Tab) 1 tab DAILY PO 12/12/17 09:00 01/11/18 08:59 12/14/17 08:41 1 TAB Hydromorphone HCl (Dilaudid Inj) 0.5 mg Q3H PRN IV 12/12/17 01:45 12/26/17 01:44 Tramadol HCl (Ultram Tab) not relieved by tylenol @ Q6H PRN PO 12/12/17 01:45 01/11/18 01:44 Miscellaneous Information 1 ea UD PRN N/A 12/12/17 03:15 01/11/18 03:14 Miscellaneous Information (Consult Glycemic Management Pharmacy) 1 ea UD PRN N/A 12/13/17 08:15 01/12/18 08:14 Amlodipine Besylate (Norvasc Tab) 2.5 mg HS PO 12/14/17 21:00 01/13/18 20:59 12/14/17 21:04 2.5 MG Review of Systems 12 system ROS was conducted and noted to be negative other than the above HPI. Physical Exam Date Time Temp Pulse Resp B/P (MAP) Pulse Ox O2 Delivery O2 Flow Rate FiO2 12/15/17 07:29 36.9 80 18 156/91 (112) 99 Room Air 12/15/17 00:00 Room Air 12/14/17 23:47 37.2 77 16 132/81 (98) 97 Room Air 12/14/17 20:02 36.8 83 20 176/94 (121) 98 Room Air 12/14/17 16:00 98 12/14/17 15:35 36.7 75 18 178/99 (125) 98 Room Air 12/14/17 11:24 36.8 78 18 169/95 (119) 96 Room Air 12/14/17 08:00 Room Air Palpable pulses to RLE SILT RLE, subjective numbness present R A leg wound is stable with mild surrounding erythema and calor, negative abscess on MRI and WBC is normal at this time. VSS. Wound is fibrotic in nature and does not probe deeply. No malodor is present and no purulence is present. MRI is consistent with acute charcot arthropathy involving ankle and hindfoot complex with multiple fragments noted aboout the tibia, talus, 4th MT base and possible calcaneus and navicular involvement. Laboratory Results Last 24 Hours Test 12/14/17 07:56 12/14/17 08:13 12/14/17 11:46 12/14/17 16:23 Bedside Glucose 60 mg/dl 102 mg/dl 184 mg/dl 114 mg/dl Test 12/14/17 20:46 12/15/17 05:59 Bedside Glucose 123 mg/dl White Blood Count 4.39 K/uL Red Blood Count 3.02 M/uL Hemoglobin 9.1 g/dL Hematocrit 26.5 % Mean Corpuscular Volume 87.7 fL Mean Corpuscular Hemoglobin 30.1 pg Mean Corpuscular Hemoglobin Concent 34.3 g/dl RDW Standard Deviation 42.7 fL RDW Coefficient of Variation 13.2 % Platelet Count 352 K/uL Mean Platelet Volume 8.7 fL Sodium Level 138 mmol/L Potassium Level 4.5 mmol/L Chloride Level 107 mmol/L Carbon Dioxide Level 25 mmol/L Anion Gap 6.0 mmol/L Blood Urea Nitrogen 28 mg/dl Creatinine 2.23 mg/dl Est Creatinine Clear Calc Drug Dose 48.6 ml/min Estimated GFR () 43.3 Estimated GFR (Non- 37.3 BUN/Creatinine Ratio 12.7 Random Glucose 114 mg/dl Calcium Level 8.5 mg/dl Assessment & Plan Charcot Arthropathy - He is in the acute stage with a cast boot present to the RLE. This is a limb threatening breakdown and I recommend immediate NWB status in the boot. He would be ideally served with a cast however the anterior leg wound prevents this from a logistical perspective. The erythema and calor about the foot and leg are likely 2/2 charcot and not infectious process. He is not currently a surgical candidate due to uncontrolled diabetes and multiple other comorbidities. He will require an extensive period of NWB. I recommend a PT eval for NWB status as well as social sciences lecturer consultation for possible SNF placement due to home and work situation. He would likely benefit from a knee scoot for NWB status.I addressed this with the patient and he is in agreement with this plan. He understands the severity of the situation. R foot wound - Stable at this time without abscess present - Recommend santyl W2D dressing with daily changes. Appreciate wound care team input. - No intermediate school teacher IV antibiosis is warranted as no abscess is present and it is extremely unlikely that patient has any type of infectious osseous process. Follow up - I recommend he follow up with me as outpatient within 1 week of discharge. I would be happy to manage both wound and charcot arthropathy in that setting. Once social situation and PT evaluation are complete, he is clear for discharge from my perspective. Thank you for the consultation and allowing me to take part in this patient's care. Please contact me directly at [phone] with any questions regarding this plan. Additional Copies To Venus Alex, DO
[2017-12-15] MEDS ORDERED: INSULIN GLARGINE SOLOSTAR 100 UNITS/ML 3 ML PEN SC SCH ×2 (09:00→21:00)
[2017-12-15] MEDS: MULTIVITAMIN TAB PO SCH (09:17)
[2017-12-15] MEDS: INSULIN ASPART 100 UNITS/ML 3 ML PEN SC SCH ×4 (09:21→20:49)
[2017-12-15] MEDS: DOXYCYCLINE IV 100 MG in DEXTROSE 5% 100ML 100 ML IV SCH ×2 (09:26→20:42)
[2017-12-15 15:23] VITALS: BP 138/88; PULSE 79; TEMP 37; O2SAT 98
--- NOTE | 2017-12-15 15:26 | Progress Note ---
Subjective Date of Service: Dec 15, 2017. Subjective Pt evaluation today including: conversation w/ patient, physical exam, lab review, review of studies, review of inpatient medication list Saw/examined the patient in room 286 No problems/issues with the new boot Understands the reason for nonweightbearing status on the R Problem List Medical Problems: (1) Acute renal failure Status: Acute (2) Anemia Status: Acute (3) Cellulitis Status: Acute (4) Cellulitis Status: Acute (5) Cellulitis of right lower extremity Status: Acute (6) Chronic wound of extremity Status: Acute (7) CKD (chronic kidney disease) Status: Acute (8) Hyperglycemia Status: Acute (9) Hyperkalemia Status: Acute (10) Leg pain Status: Acute (11) Leg swelling Status: Acute Review of Systems Constitutional: No fever, No chills Respiratory: No cough, No sputum, No shortness of breath Cardiac: No chest pain, No edema, No palpitations Musculoskeletal: + joint pain Medications Current Inpatient Medications Medications (Trade) Dose Ordered Sig/Everton Route Start Time Stop Time Status Last Admin Dose Admin Doxycycline Hyclate 100 mg/ Dextrose 110 ml @ 50 mls/hr BID IV 12/12/17 21:00 12/22/17 20:59 12/15/17 09:26 50 MLS/HR Heparin Sodium (Porcine) (Heparin Sq 5000 Unit/0.5ml) 5,000 unit Q8H SQ 12/12/17 06:00 01/11/18 05:59 12/15/17 14:56 5,000 UNIT Acetaminophen (Tylenol Tab) 650 mg Q4H PRN PO 12/12/17 01:45 01/11/18 01:44 12/13/17 05:51 650 MG Insulin Aspart (novoLOG ASPART) SLIDING SCALE If C... ACHS SC 12/12/17 06:30 01/11/18 06:59 12/15/17 13:02 7 UNITS Glucose (Glucose 40% Gel) 15-30 GRAMS 15 GRAMS... UD PRN PO 12/12/17 01:45 01/11/18 01:44 Glucose (Glucose Chew Tab) 4-8 Tablets 4 Tabl... UD PRN PO 12/12/17 01:45 01/11/18 01:44 Dextrose (Dextrose 50% 50ML Syringe) 25-50ML OF 50% DW IV FOR... UD PRN IV 12/12/17 01:45 01/11/18 01:44 Glucagon (Glucagon Inj) 1 mg UD PRN SQ 12/12/17 01:45 01/11/18 01:44 Prochlorperazine Edisylate 5 mg/ Syringe 5 ml @ 5 mls/min Q6H PRN IV 12/12/17 01:45 01/11/18 01:44 Multivitamins (Multivitamin Tab) 1 tab DAILY PO 12/12/17 09:00 01/11/18 08:59 12/15/17 09:17 1 TAB Hydromorphone HCl (Dilaudid Inj) 0.5 mg Q3H PRN IV 12/12/17 01:45 12/26/17 01:44 Tramadol HCl (Ultram Tab) not relieved by tylenol @ Q6H PRN PO 12/12/17 01:45 01/11/18 01:44 Miscellaneous Information 1 ea UD PRN N/A 12/12/17 03:15 01/11/18 03:14 Miscellaneous Information (Consult Glycemic Management Pharmacy) 1 ea UD PRN N/A 12/13/17 08:15 01/12/18 08:14 Amlodipine Besylate (Norvasc Tab) 2.5 mg HS PO 12/14/17 21:00 01/13/18 20:59 12/14/17 21:04 2.5 MG Insulin Glargine (Lantus Solostar Pen) 15 units QAM SC 12/15/17 09:00 01/14/18 08:59 12/15/17 09:23 15 UNITS Insulin Glargine (Lantus Solostar Pen) PLEASE SEE PROTOCOL TE... DAILY@2100 SC 12/15/17 21:00 01/14/18 20:59 Objective Vital Signs Date Time Temp Pulse Resp B/P (MAP) Pulse Ox O2 Delivery O2 Flow Rate FiO2 12/15/17 08:00 99 Room Air 12/15/17 07:29 36.9 80 18 156/91 (112) 99 Room Air 12/15/17 00:00 Room Air 12/14/17 23:47 37.2 77 16 132/81 (98) 97 Room Air 12/14/17 20:02 36.8 83 20 176/94 (121) 98 Room Air 12/14/17 16:00 98 12/14/17 15:35 36.7 75 18 178/99 (125) 98 Room Air Physical Exam General Appearance: no apparent distress Respiratory/Chest: no respiratory distress, no accessory muscle use Cardiovascular: regular rate, rhythm Extremities: no calf tenderness, + pertinent finding (pneumatic boot in place) Neurologic/Psychiatric: no motor/sensory deficits, alert, normal mood/affect Laboratory Results Last 24 Hours Test 12/14/17 16:23 12/14/17 20:46 12/15/17 05:59 12/15/17 07:43 Bedside Glucose 114 mg/dl 123 mg/dl 156 mg/dl White Blood Count 4.39 K/uL Red Blood Count 3.02 M/uL Hemoglobin 9.1 g/dL Hematocrit 26.5 % Mean Corpuscular Volume 87.7 fL Mean Corpuscular Hemoglobin 30.1 pg Mean Corpuscular Hemoglobin Concent 34.3 g/dl RDW Standard Deviation 42.7 fL RDW Coefficient of Variation 13.2 % Platelet Count 352 K/uL Mean Platelet Volume 8.7 fL Sodium Level 138 mmol/L Potassium Level 4.5 mmol/L Chloride Level 107 mmol/L Carbon Dioxide Level 25 mmol/L Anion Gap 6.0 mmol/L Blood Urea Nitrogen 28 mg/dl Creatinine 2.23 mg/dl Est Creatinine Clear Calc Drug Dose 48.6 ml/min Estimated GFR () 43.3 Estimated GFR (Non- 37.3 BUN/Creatinine Ratio 12.7 Random Glucose 114 mg/dl Calcium Level 8.5 mg/dl Test 12/15/17 11:47 Bedside Glucose 250 mg/dl Assessment and Plan This is a 32 year old male with a past medical history of uncontrolled, type 1 diabetes, diabetic nephropathy and CKD stage 3, diabetic retinopathy, neuropathy of bilateral lower extremities and toes, HTN, tobacco use disorder - presents with deformity of the R ankle with pain and subsequently found to have neuropathic arthropathy Neuropathic Arthropathy R Ankle Charcot Joint in the setting of Uncontrolled Diabetes 12/15 - appreciate podiatry input - pneumatic boot in place - Non-weight bearing status on the R LE - PT/OT ordered - case management placed - plan to d/c to SNF; will need knee scooter 12/14 - patient presented with R ankle pain - MRI suggested neuropathic arthropathy - appreciate ortho input, non-surgical at this time - will consult podiatry - patient will need to follow-up with them closely due to diabetes - orthotics were also consulted for possible fitting of a walking boot - outpatient follow-up with podiatry, orthopedics and possibly orthotics Hyperglycemia in the setting of Uncontrolled Type 1 DM - BSGs ~ 300 on arrival - Ha1c noted in October to be 13.7% - significantly uncontrolled; though with anemia, unsure how accurate this is - patient should have an insulin pump and will work on obtaining one as an outpatient - for now, appreciate glycemic control input - will discharge with basal/bolus dosing Anemia - likely of chronic kidney disease - s/p two units pRBCs - outpatient Procrit injections with nephrology Diabetic Nephropathy Acute Kidney Injury superimposed on CKD stage 3 - creatinine elevated - unsure if this is natural progression due to uncontrolled diabetes - appreciate nephrology input - may need to restart MICHELLE-I at low dose, will discuss with nephrology HTN - holding Lisinopril/HCTZ due to kidney function - monitor BP and will give PRN doses of Hydralazine intermittently DVT ppx - subq heparin FULL CODE
[2017-12-15 16:14] VITALS: O2SAT 99
[2017-12-15] MEDS: AMLODIPINE BESYLATE 5 MG TAB PO SCH (20:43)
[2017-12-15 22:47] VITALS: BP 144/89; PULSE 79; TEMP 37; O2SAT 97
[2017-12-16] MEDS: HEPARIN SOD 5000 UNIT/0.5 ML CARP SQ SCH ×2 (05:48→14:39)
[2017-12-16 07:01] LABS: HEMATOCRIT 31.3 % (42-52); HEMOGLOBIN 10.5 g/dL (14.0-18.0); MEAN CELL VOLUME 88.7 fL (80-100); MEAN CORPUSCULAR HEMOGLOBIN 29.7 pg (25-34); MEAN CORPUSCULAR HGB CONC 33.5 g/dl (32-36); MEAN PLATELET VOLUME 8.8 fL (7.4-10.4); PLATELET COUNT 438 K/uL (130-400); RED CELL DISTRIBUTION WIDTH CV 13.1 % (11.5-14.5); RED CELL DISTRIBUTION WIDTH SD 42.2 fL (36.4-46.3); WHITE BLOOD COUNT 5.17 K/uL (4.8-10.8)
[2017-12-16 07:37] LABS: CALCIUM 9.6 mg/dl (8.5-10.1); CREATININE 2.26 mg/dl (0.60-1.40); POTASSIUM 4.6 mmol/L (3.5-5.1)
[2017-12-16 08:13] VITALS: BP 165/90; PULSE 71; TEMP 36.7; O2SAT 99
[2017-12-16] MEDS ORDERED: INSULIN GLARGINE SOLOSTAR 100 UNITS/ML 3 ML PEN SC SCH (08:15)
[2017-12-16] MEDS: INSULIN ASPART 100 UNITS/ML 3 ML PEN SC SCH ×2 (08:30→12:46)
[2017-12-16] MEDS: MULTIVITAMIN TAB PO SCH (08:35)
[2017-12-16] MEDS: DOXYCYCLINE IV 100 MG in DEXTROSE 5% 100ML 100 ML IV SCH (08:35)
[2017-12-16 11:09] VITALS: BP 148/87; PULSE 80; TEMP 36.8; O2SAT 99
--- NOTE | 2017-12-16 13:07 | Pharmacy Progress Note ---
Pharmacy Glycemic Short Note 2 Date of Service Dec 16, 2017. OUTPATIENT REGIMEN: * Lantus 20 units BID * Novolog w/ CF 20 and CR 7.5 * (per CDE note, follows danielle/ Yvon at [facility] clinic) Test 12/15/17 16:29 12/15/17 20:05 12/16/17 06:18 12/16/17 07:41 Bedside Glucose 149 mg/dl (70-99) 174 mg/dl (70-99) 183 mg/dl (70-99) Random Glucose 152 mg/dl (70-99) Test 12/16/17 12:15 Bedside Glucose 243 mg/dl (70-99) ASSESSMENT: 12/16/17 * Mr. Hicks had a few hypoglycemic episodes on admission, secondary to high doses of Lantus and elevated SCr * We are now starting to see a trend with increasing BSGs since the insulin regimen was cut back significantly and SCr slowly improving * Fasting BSG = 183: will increase AM basal by 20% and remove PM dose altogether while we are adjusting AM dose * Postprandial BSGs = 250, 149, 174, 243: there is not a continued trend of high BSGs so will tighten slightly. This can be tightened further tomorrow if not enough. PLAN FOR INPATIENT GLYCEMIC CONTROL: * Basal insulin * Increase AM Lantus to 18 units qAM * D/C PM Lantus scale * Bolus insulin * NovoLog per scale ACHS or Q6hrs while NPO * Goal Range: Low 110 mg/dL - High 140 mg/dL * Correction Factor: 25 mg/dL/unit * TIGHTEN Nutritional / Prandial insulin per carb ratio of 1 unit per 12 grams CHO consumed Discharge recommendations: * A1c elevated mostly from noncompliance * Continue same regimen on discharge and schedule f/u appt with outpatient [facility] pharmacist. Patient apparently hasn't had f/u in > 1 yr but willing to get back on track (per CDE note).
--- NOTE | 2017-12-16 13:27 | Progress Note ---
Subjective Date of Service: Dec 16, 2017. Subjective Pt evaluation today including: conversation w/ patient, physical exam, lab review, review of studies, review of inpatient medication list Saw/examined the patient in room 414 He's doing okay today; questioning how he will perform certain activities Realizes that he may need to go home with home health states he's okay with going to his dad's house - as they have less steps NWB on R Problem List Medical Problems: (1) Acute renal failure Status: Acute (2) Anemia Status: Acute (3) Cellulitis Status: Acute (4) Cellulitis Status: Acute (5) Cellulitis of right lower extremity Status: Acute (6) Chronic wound of extremity Status: Acute (7) CKD (chronic kidney disease) Status: Acute (8) Hyperglycemia Status: Acute (9) Hyperkalemia Status: Acute (10) Leg pain Status: Acute (11) Leg swelling Status: Acute Review of Systems Constitutional: No fever, No chills, No weakness Respiratory: No shortness of breath Cardiac: No chest pain Abdomen: No pain, No nausea, No vomiting, No diarrhea, No constipation, No GI bleeding Musculoskeletal: + joint pain, + muscle pain, + swelling Medications Current Inpatient Medications Medications (Trade) Dose Ordered Sig/Everton Route Start Time Stop Time Status Last Admin Dose Admin Doxycycline Hyclate 100 mg/ Dextrose 110 ml @ 50 mls/hr BID IV 12/12/17 21:00 12/22/17 20:59 12/16/17 08:35 50 MLS/HR Heparin Sodium (Porcine) (Heparin Sq 5000 Unit/0.5ml) 5,000 unit Q8H SQ 12/12/17 06:00 01/11/18 05:59 12/16/17 05:48 5,000 UNIT Acetaminophen (Tylenol Tab) 650 mg Q4H PRN PO 12/12/17 01:45 01/11/18 01:44 12/13/17 05:51 650 MG Insulin Aspart (novoLOG ASPART) SLIDING SCALE If C... ACHS SC 12/12/17 06:30 01/11/18 06:59 12/16/17 08:30 6 UNITS Glucose (Glucose 40% Gel) 15-30 GRAMS 15 GRAMS... UD PRN PO 12/12/17 01:45 01/11/18 01:44 Glucose (Glucose Chew Tab) 4-8 Tablets 4 Tabl... UD PRN PO 12/12/17 01:45 01/11/18 01:44 Dextrose (Dextrose 50% 50ML Syringe) 25-50ML OF 50% DW IV FOR... UD PRN IV 12/12/17 01:45 01/11/18 01:44 Glucagon (Glucagon Inj) 1 mg UD PRN SQ 12/12/17 01:45 01/11/18 01:44 Prochlorperazine Edisylate 5 mg/ Syringe 5 ml @ 5 mls/min Q6H PRN IV 12/12/17 01:45 01/11/18 01:44 Multivitamins (Multivitamin Tab) 1 tab DAILY PO 12/12/17 09:00 01/11/18 08:59 12/16/17 08:35 1 TAB Hydromorphone HCl (Dilaudid Inj) 0.5 mg Q3H PRN IV 12/12/17 01:45 12/26/17 01:44 Tramadol HCl (Ultram Tab) not relieved by tylenol @ Q6H PRN PO 12/12/17 01:45 01/11/18 01:44 Miscellaneous Information 1 ea UD PRN N/A 12/12/17 03:15 01/11/18 03:14 Miscellaneous Information (Consult Glycemic Management Pharmacy) 1 ea UD PRN N/A 12/13/17 08:15 01/12/18 08:14 Amlodipine Besylate (Norvasc Tab) 2.5 mg HS PO 12/14/17 21:00 01/13/18 20:59 12/15/17 20:43 2.5 MG Insulin Glargine (Lantus Solostar Pen) 18 units QAM SC 12/16/17 08:15 01/15/18 08:14 12/16/17 08:42 18 UNITS Objective Vital Signs Date Time Temp Pulse Resp B/P (MAP) Pulse Ox O2 Delivery O2 Flow Rate FiO2 12/16/17 11:09 36.8 80 16 148/87 (107) 99 Room Air 12/16/17 08:30 Room Air 12/16/17 08:13 36.7 71 16 165/90 (115) 99 12/16/17 00:00 Room Air 12/15/17 22:47 37.0 79 16 144/89 (107) 97 Room Air 12/15/17 16:14 99 Room Air 12/15/17 15:23 37.0 79 18 138/88 (105) 98 Room Air Physical Exam General Appearance: no apparent distress Respiratory/Chest: lungs clear, normal breath sounds, no respiratory distress, no accessory muscle use Cardiovascular: regular rate, rhythm, no edema, no murmur Extremities: + pertinent finding (+pneumatic boot in place on R) Neurologic/Psychiatric: no motor/sensory deficits, alert, normal mood/affect Laboratory Results Last 24 Hours Test 12/15/17 16:29 12/15/17 20:05 12/16/17 06:18 12/16/17 07:41 Bedside Glucose 149 mg/dl 174 mg/dl 183 mg/dl White Blood Count 5.17 K/uL Red Blood Count 3.53 M/uL Hemoglobin 10.5 g/dL Hematocrit 31.3 % Mean Corpuscular Volume 88.7 fL Mean Corpuscular Hemoglobin 29.7 pg Mean Corpuscular Hemoglobin Concent 33.5 g/dl RDW Standard Deviation 42.2 fL RDW Coefficient of Variation 13.1 % Platelet Count 438 K/uL Mean Platelet Volume 8.8 fL Sodium Level 136 mmol/L Potassium Level 4.6 mmol/L Chloride Level 106 mmol/L Carbon Dioxide Level 24 mmol/L Anion Gap 6.0 mmol/L Blood Urea Nitrogen 33 mg/dl Creatinine 2.26 mg/dl Est Creatinine Clear Calc Drug Dose 48.0 ml/min Estimated GFR () 42.6 Estimated GFR (Non- 36.7 BUN/Creatinine Ratio 14.6 Random Glucose 152 mg/dl Calcium Level 9.6 mg/dl Test 12/16/17 12:15 Bedside Glucose 243 mg/dl Assessment and Plan This is a 32 year old male with a past medical history of uncontrolled, type 1 diabetes, diabetic nephropathy and CKD stage 3, diabetic retinopathy, neuropathy of bilateral lower extremities and toes, HTN, tobacco use disorder - presents with deformity of the R ankle with pain and subsequently found to have neuropathic arthropathy Neuropathic Arthropathy R Ankle Charcot Joint in the setting of Uncontrolled Diabetes 12/16 - pneumatic boot in place, nonweightbearing status on the R - PT/OT pending - will likely not get approved for SNF, can d/c home with home health 12/15 - appreciate podiatry input - pneumatic boot in place - Non-weight bearing status on the R LE - PT/OT ordered - case management placed - plan to d/c to SNF; will need knee scooter 12/14 - patient presented with R ankle pain - MRI suggested neuropathic arthropathy - appreciate ortho input, non-surgical at this time - will consult podiatry - patient will need to follow-up with them closely due to diabetes - orthotics were also consulted for possible fitting of a walking boot - outpatient follow-up with podiatry, orthopedics and possibly orthotics Hyperglycemia in the setting of Uncontrolled Type 1 DM - BSGs ~ 300 on arrival - Ha1c noted in October to be 13.7% - significantly uncontrolled; though with anemia, unsure how accurate this is - patient should have an insulin pump and will work on obtaining one as an outpatient - for now, appreciate glycemic control input - will discharge with basal/bolus dosing Anemia - likely of chronic kidney disease - s/p two units pRBCs - outpatient Procrit injections with nephrology Diabetic Nephropathy Acute Kidney Injury superimposed on CKD stage 3 - creatinine elevated - unsure if this is natural progression due to uncontrolled diabetes - appreciate nephrology input - may need to restart MICHELLE-I at low dose, will discuss with nephrology HTN - holding Lisinopril/HCTZ due to kidney function - monitor BP and will give PRN doses of Hydralazine intermittently DVT ppx - subq heparin FULL CODE
[2017-12-16] MEDS ORDERED: PNEUMOCOCCAL ADMINISTRATION CHARGE ONE (14:00)
[2017-12-16] MEDS ORDERED: PNEUMOCOCCAL POLYSACCHARIDES 25 MCG/0.5 ML VIAL/SYR IM. ONE (14:00)
[2017-12-16 16:21] VITALS: BP 155/93; PULSE 75; TEMP 36.7; O2SAT 100
--- NOTE | 2017-12-16 16:21 | Nephrology Progress Note ---
Nephrology Progress Note Date of Service: Dec 16, 2017. Subjective 32 yo male with uncontrolled diabetes with a walking boot for his right ankle. has a charcot joint. did require blood transfusion while admitted. pt oob to chair, father in room. awaiting discharge. Objective Date Time Temp Pulse Resp B/P (MAP) Pulse Ox O2 Delivery O2 Flow Rate FiO2 12/16/17 11:09 36.8 80 16 148/87 (107) 99 Room Air 12/16/17 08:30 Room Air 12/16/17 08:13 36.7 71 16 165/90 (115) 99 12/16/17 00:00 Room Air 12/15/17 22:47 37.0 79 16 144/89 (107) 97 Room Air Physical Exam: General-aaox3 Eyes-no scleral icterus ENT-mmm Neck-supple Lungs-clear Heart-regular Abdomen-bs+ s/nt/nd Extremities-right leg in boot Neuro-+neuropathy Current Inpatient Medications Medications (Trade) Dose Ordered Sig/Ever[place] Route Start Time Stop Time Status Last Admin Dose Admin Heparin Sodium (Porcine) (Heparin Sq 5000 Unit/0.5ml) 5,000 unit Q8H SQ 12/12/17 06:00 01/11/18 05:59 12/16/17 05:48 5,000 UNIT Acetaminophen (Tylenol Tab) 650 mg Q4H PRN PO 12/12/17 01:45 01/11/18 01:44 12/13/17 05:51 650 MG Insulin Aspart (novoLOG ASPART) SLIDING SCALE If C... ACHS SC 12/12/17 06:30 01/11/18 06:59 12/16/17 08:30 6 UNITS Glucose (Glucose 40% Gel) 15-30 GRAMS 15 GRAMS... UD PRN PO 12/12/17 01:45 01/11/18 01:44 Glucose (Glucose Chew Tab) 4-8 Tablets 4 Tabl... UD PRN PO 12/12/17 01:45 01/11/18 01:44 Dextrose (Dextrose 50% 50ML Syringe) 25-50ML OF 50% DW IV FOR... UD PRN IV 12/12/17 01:45 01/11/18 01:44 Glucagon (Glucagon Inj) 1 mg UD PRN SQ 12/12/17 01:45 01/11/18 01:44 Prochlorperazine Edisylate 5 mg/ Syringe 5 ml @ 5 mls/min Q6H PRN IV 12/12/17 01:45 01/11/18 01:44 Multivitamins (Multivitamin Tab) 1 tab DAILY PO 12/12/17 09:00 01/11/18 08:59 12/16/17 08:35 1 TAB Hydromorphone HCl (Dilaudid Inj) 0.5 mg Q3H PRN IV 12/12/17 01:45 12/26/17 01:44 Tramadol HCl (Ultram Tab) not relieved by tylenol @ Q6H PRN PO 12/12/17 01:45 01/11/18 01:44 Miscellaneous Information (Consult Glycemic Management Pharmacy) 1 ea UD PRN N/A 12/13/17 08:15 01/12/18 08:14 Amlodipine Besylate (Norvasc Tab) 2.5 mg HS PO 12/14/17 21:00 01/13/18 20:59 12/15/17 20:43 2.5 MG Insulin Glargine (Lantus Solostar Pen) 18 units QAM SC 12/16/17 08:15 01/15/18 08:14 12/16/17 08:42 18 UNITS Last 24 Hours Test 12/15/17 16:29 12/15/17 20:05 12/16/17 06:18 12/16/17 07:41 Bedside Glucose 149 mg/dl 174 mg/dl 183 mg/dl White Blood Count 5.17 K/uL Red Blood Count 3.53 M/uL Hemoglobin 10.5 g/dL Hematocrit 31.3 % Mean Corpuscular Volume 88.7 fL Mean Corpuscular Hemoglobin 29.7 pg Mean Corpuscular Hemoglobin Concent 33.5 g/dl RDW Standard Deviation 42.2 fL RDW Coefficient of Variation 13.1 % Platelet Count 438 K/uL Mean Platelet Volume 8.8 fL Sodium Level 136 mmol/L Potassium Level 4.6 mmol/L Chloride Level 106 mmol/L Carbon Dioxide Level 24 mmol/L Anion Gap 6.0 mmol/L Blood Urea Nitrogen 33 mg/dl Creatinine 2.26 mg/dl Est Creatinine Clear Calc Drug Dose 48.0 ml/min Estimated GFR () 42.6 Estimated GFR (Non- 36.7 BUN/Creatinine Ratio 14.6 Random Glucose 152 mg/dl Calcium Level 9.6 mg/dl Test 12/16/17 12:15 Bedside Glucose 243 mg/dl Assessment & Plan GNI-dwq-mnduklly-creatinine improved into the low 2s which is closer to his baseline. not uremic. however, overall poor prognosis given his uncontrolled diabetes. Anemia of renal failure-hg of 10.5 after blood transfusion. may eventually qualify for procrit as an outpt and would like to try to minimize blood transfusions in the future given his possible transplant status in the future. ok from renal perspective to go home today.
[2017-12-16] MEDS ORDERED: INSDGIPEN SC (16:30)
[2017-12-16] MEDS ORDERED: LSN25 PO (16:30)
[2017-12-16] MEDS ORDERED: NRV5 PO (16:30)
--- NOTE | 2017-12-16 16:34 | Discharge Instructions ---
Discharge Instructions Date of Service Dec 16, 2017. Admission Reason for Admission: Diabetic Foot Infection Discharge Discharge Diagnosis / Problem: Charcot Foot Discharge Goals Goal(s): Decrease discomfort, Improve function, Diagnostic testing, Therapeutic intervention Activity Recommendations Activity Limitations: per Instructions/Follow-up section May Resume Sexual Activity: when tolerated Shower/Bathe: no limitations Weightbearing Status: Right non-weightbearing . Instructions / Follow-Up Instructions / Follow-Up Please follow-up with Dr. Singh on December 20 at 2:45PM * No weight bearing on the R foot * Please follow-up with endocrinology due to significantly uncontrolled diabetes * Please follow-up with nephrology as outpatient due to kidney disease related to diabetes * Your blood pressure medications have been adjusted * Follow-up with Dr. Muro, podiatry, in one week Current Hospital Diet Patient's current hospital diet: Diabetes Type 1 Diet, AHA Diet (Heart Healthy) Discharge Diet Recommended Diet: AHA Diet (Heart Healthy), Diabetes Type 1 Diet Pending Studies Studies pending at discharge: no Medical Emergencies . Who to Call and When: Medical Emergencies: If at any time you feel your situation is an emergency, please call 911 immediately. . Non-Emergent Contact Non-Emergency issues call your: Primary Care Provider, Debone Supervisor, Specialist (Endocrinology, Podiatry) . . "Provider Documentation" section prepared by Venus Alex. . Quality Assurance Project Manager Recommendations Quality Assurance Project Manager Recommendations: PATIENT MRI CONSISTENT WITH CHARCOT AND DEGENERATIVE CHANGES. HE IS NON- SURGICAL AT THIS TIME. RECOMMEND OUTPATIENT FOLLOW UP WITH DR. RAMESH IN 2-4 WEEKS. [phone] PATIENT SHOULD CONTINUE TO SEE WOUND CARE. WOULD CONSIDER CUSTOM ORTHOTICS OR ORTHOTIC SHOES BUT CAN WAIT UNTIL OUTPATIENT EVAL FOR EXACT RECOMMENDATIONS. ORTHOPEDICS WILL SIGN OFF. THANK YOU.
[2017-12-16 16:36] VITALS: BP 155/93; PULSE 75; TEMP 36.7; O2SAT 100
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
== END 2017-12-16 17:50 | disposition home health service (06) | DRG 74 ==
LOC: C.EDA 20:34 → C.MED 12-12 01:14 → ENRESERV 12-12 01:37 → C.4E 12-15 21:55
PROVIDERS: ADMIT Internal Medicine; ATTEND Family Medicine
DX: E10.40 Type 1 diabetes mellitus with diabetic neuropathy, unspecified (principal); L97.919 Non-pressure chronic ulcer of unspecified part of right lower leg with unspecified severity; E10.610 Type 1 diabetes mellitus with diabetic neuropathic arthropathy; M00.871 Arthritis due to other bacteria, right ankle and foot; L03.116 Cellulitis of left lower limb; N17.9 Acute kidney failure, unspecified; E10.65 Type 1 diabetes mellitus with hyperglycemia; E10.69 Type 1 diabetes mellitus with other specified complication; Z87.891 Personal history of nicotine dependence; E10.622 Type 1 diabetes mellitus with other skin ulcer; I12.9 Hypertensive chronic kidney disease with stage 1 through stage 4 chronic kidney disease, or unspecified chronic kidney disease; D63.1 Anemia in chronic kidney disease; N18.3 Chronic kidney disease, stage 3 (moderate)

== ENCOUNTER 2018-03-21 11:31 | Emergency (ER) | payer OTHER ==
[~2018-03-21] VITALS: Ht 177.8 cm; Wt 70.4 kg
[~2018-03-21 11:31] MED LIST changes: -LISI-787 PO; +LSN25 PO; +NRV5 PO; -ONDA4TAB46 PO
[2018-03-21 11:45] VITALS: TEMP 37.2; Ht 177.8 cm; Wt 70.4 kg
[2018-03-21] MEDS ORDERED: ONDANSETRON INJ 2 MG/ML 2 ML VIAL IV STA (11:45)
[2018-03-21] MEDS ORDERED: SODIUM CHLORIDE 0.9% 1000ML 1,000 ML IV STA (11:45)
[2018-03-21] MEDS ORDERED: FENTANYL CITRATE INJ 50 MCG/1 ML 2 ML VIAL IV STA (11:49)
[2018-03-21] MEDS: LISINOPRIL 5 MG TAB PO ONE ×3 (11:59→15:59)
[2018-03-21 12:00] LABS: BASO % 1.6 %; BASO ABS # 0.11 K/uL (0-0.2); EOS ABS # 0.07 K/uL (0-0.5); HEMATOCRIT 36.3 % (42-52); HEMOGLOBIN 12.6 g/dL (14.0-18.0); IG# 0.01 K/uL (0.00-0.02); LYMPH % 15.6 %; LYMPH ABS # 1.09 K/uL (1.2-3.4); MEAN CORPUSCULAR HEMOGLOBIN 29.9 pg (25-34); MEAN CORPUSCULAR HGB CONC 34.7 g/dl (32-36); MEAN PLATELET VOLUME 9.9 fL (7.4-10.4); MONO ABS # 0.56 K/uL (0.11-0.59); NEUT % 73.7 %; NEUT ABS # 5.14 K/uL (1.4-6.5); PLATELET COUNT 312 K/uL (130-400); RED CELL DISTRIBUTION WIDTH CV 13.8 % (11.5-14.5); RED CELL DISTRIBUTION WIDTH SD 43.2 fL (36.4-46.3); WHITE BLOOD COUNT 6.98 K/uL (4.8-10.8)
[2018-03-21] MEDS ORDERED: NRV/5 PO (12:02)
[2018-03-21] MEDS ORDERED: LISI-789 PO (12:02)
[2018-03-21] MEDS ORDERED: INSDGIPEN SC (12:02)
[2018-03-21] MEDS ORDERED: INSPMPNVLG (12:02)
[2018-03-21] MEDS ORDERED: PROCHLORPERAZINE 5 MG/ML 2 ML VIAL IV STA (12:09)
[2018-03-21] MEDS ORDERED: HydrALAZINE HCL 20 MG/ML VIAL IV. STA (12:09)
[2018-03-21 12:10] LABS: PTT PATIENT 26.7 SECONDS (21.0-31.0)
--- NOTE | 2018-03-21 12:18 | DIAGNOSTIC IMAGING REPORT ---
CHEST ONE VIEW PORTABLE CLINICAL HISTORY: EVALUATE ALTERED MENTAL STATUS/WEAKNESS dyspnea COMPARISON STUDY: 12/11/2017 FINDINGS: The bones soft tissues and hemidiaphragms are normal. The cardiomediastinal silhouette is normal. The lungs are clear. The pulmonary vasculature is normal. IMPRESSION: Negative chest. The above report was generated using voice recognition software. It may contain grammatical, syntax or spelling errors. Electronically signed by: Slick Howell M.D. 03/21/2018 12:17 PM Dictated Date/Time: 03/21/2018 12:17 PM
[2018-03-21 12:26] LABS: ALBUMIN 3.6 gm/dl (3.4-5.0); ALKALINE PHOSPHATASE 68 U/L (45-117); ALT/SGPT 16 U/L (12-78); AST/SGOT 19 U/L (15-37); BLOOD UREA NITROGEN 36 mg/dl (7-18); CALCIUM 9.6 mg/dl (8.5-10.1); CARBON DIOXIDE 26 mmol/L (21-32); CKMB 1.7 ng/ml (0.5-3.6); CREATININE 2.73 mg/dl (0.60-1.40); GLUCOSE 86 mg/dl (70-99); LIPASE 86 U/L (73-393); POTASSIUM 4.2 mmol/L (3.5-5.1); SODIUM 138 mmol/L (136-145)
--- NOTE | 2018-03-21 13:20 | DIAGNOSTIC IMAGING REPORT ---
CT HEAD WITHOUT CONTRAST (CT) CLINICAL HISTORY: Headache, dizziness, altered mental status. COMPARISON STUDY: No previous studies for comparison. TECHNIQUE: Axial CT of the brain is performed from the vertex to the skull base. IV contrast was not administered for this examination. A dose lowering technique was utilized adhering to the principles of ALARA. CT DOSE: FINDINGS: No intra or extra-axial mass lesions are visualized. There is no CT evidence of acute cortical infarction. There is no evidence of midline shift. There is no acute hemorrhage. No calvarial fractures are visualized. There is no evidence of pathologic ventricular dilatation. There is no evidence of acute sinusitis. There is minor disconjugate ocular gaze IMPRESSION: No acute intracranial findings Electronically signed by: Edson Sheffield M.D. 03/21/2018 1:19 PM Dictated Date/Time: 03/21/2018 1:18 PM
--- NOTE | 2018-03-21 13:27 | DIAGNOSTIC IMAGING REPORT ---
CT SCAN OF THE ABDOMEN AND PELVIS WITHOUT CONTRAST CLINICAL HISTORY: Acute abdominal pain, nausea, vomiting. COMPARISON STUDY: December 2007 TECHNIQUE: CT scan of the abdomen and pelvis was performed from the lung bases to the proximal femurs. Images are reviewed in the axial, sagittal, and coronal planes. IV contrast was not administered for this examination. A dose lowering technique was utilized adhering to the principles of ALARA. CT DOSE: 1492.95 mGy.cm FINDINGS: The patient was unable to keep his arms above his head. This results in secondary streak artifact. There is also artifact secondary to motion. Lower chest: The heart is normal in size and configuration, without pericardial effusion. The lung bases and pleural spaces are clear. Liver: The unenhanced liver is normal in size, contour, and attenuation. There is no intrahepatic biliary ductal dilatation. Gallbladder: Unremarkable. Spleen: Normal in size and attenuation. Pancreas: Unremarkable. Adrenal glands: Unremarkable. Kidneys: The unenhanced kidneys are normal in size without hydronephrosis. There is no contour deforming renal mass lesion. No renal calculi are identified. Bowel: There are no transition zones indicate bowel obstruction. There is no acute diverticulitis. The appendix is not seen with certainty. Peritoneum: There is trace free pelvic fluid. No free intraperitoneal air is visualized. Vasculature: The abdominal aorta is normal in course and caliber. Adenopathy: None. Pelvic viscera: There is bladder distention. Skeletal structures: There is a new 11 mm sclerotic lesion within the left iliac bone. IMPRESSION: 1. Technically limited study secondary to the lack of intravenous and oral contrast, motion artifact, and streak artifact from the patient's arms 2. No renal, ureteral, or bladder calculi identified 3. No evidence of bowel obstruction. No evidence of free air 4. Mild bladder distention 5. New 11 mm sclerotic lesion within the left iliac bone 6. Trace free pelvic fluid Electronically signed by: Edson Sheffield M.D. 03/21/2018 1:26 PM Dictated Date/Time: 03/21/2018 1:20 PM
[2018-03-21] MEDS ORDERED: ONDA4TAB10 SL (13:57)
--- NOTE | 2018-03-21 13:57 | EMERGENCY ROOM VISIT NOTE ---
History Report prepared by Sabino: Jamie Rodriguez Under the Supervision of: Dr. Fredo Higginbotham D.O. First contact with patient: 11:34 Stated Complaint: NAUSEA/HEADACHE History of Present Illness The patient is a 32 year old male who presents to the Emergency Room with complaints of a constant and severe headache that began this morning. The patient states that the headache is localized above the right eye. He adds "I don't remember when I went to bed or woke up." He notes that he is also nauseous and has been vomiting. He is dizzy as well. The patient claims that he is on blood pressure medication, but he did not take it this morning. Source of History: patient Onset: This morning Position: head Symptom Intensity: moderate Quality: ache (headache) Timing: constant Associated Symptoms: + nausea, + vomiting Review of Systems See HPI for pertinent positives & negatives. A total of 10 systems reviewed and were otherwise negative. Past Medical & Surgical Medical Problems: (1) Diabetes (2) Diabetic foot infection (3) Hypertension Surgical Problems: (1) S/P eye surgery Family History Diabetes mellitus Hypertension Social History Smoking Status: Former Smoker Alcohol Use: none Drug Use: none Marital Status: single Housing Status: lives with family Occupation Status: employed Current/Historical Medications Scheduled Amlodipine Besylate (Amlodipine Besylate), 2.5 MG PO HS Cholecalciferol (Vitamin D3), 5,000 INTER.UNIT PO DAILY Insulin Aspart (novoLOG INSULIN PUMP ), 1 EA N/A UD Insulin Glargine (Lantus Solostar), 0 SC DIRECTED Lisinopril (Zestril), 2.5 MG PO QAM Multivitamin (Multivitamin), 1 TAB PO DAILY Ondasetron Odt (Zofran Odt), 4 MG SL Q6H Allergies Coded Allergies: No Known Allergies (Verified , 03/21/18) Physical Exam Vital Signs Date Time Temp Pulse Resp B/P (MAP) Pulse Ox O2 Delivery O2 Flow Rate FiO2 03/21/18 12:31 106 15 146/82 99 Room Air 03/21/18 12:28 151/84 99 Room Air 03/21/18 12:21 153/93 99 Room Air 03/21/18 12:16 98 24 163/96 99 Room Air 03/21/18 11:45 37.2 98 24 198/111 100 Room Air 03/21/18 11:44 101 03/21/18 11:42 98 26 198/111 99 Room Air Physical Exam CONSTITUTIONAL/VITAL SIGNS: Reviewed / noted above. GENERAL: Non-toxic in appearance. INTEGUMENTARY: Warm, dry, and [place]. HEAD: Normocephalic. EYES: without scleral icterus or trauma. ENT/OROPHARYNX: clear and moist. LYMPHADENOPATHY/NECK: Is supple without lymphadenopathy or meningismus. RESPIRATORY: Lungs clear and equal. CARDIOVASCULAR: Regular rate and rhythm. GI/ABDOMEN: Soft and nontender. No organomegaly or pulsatile mass. No rebound or guarding. Normal bowel sounds. EXTREMITIES: Warm and well perfused. BACK: No CVA tenderness. NEUROLOGICAL: Intact without focal deficits. PSYCHIATRIC: normal affect. MUSCULOSKELETAL: Normally developed with good muscle tone. Medical Decision & Procedures ER Provider Diagnostic Interpretation: Radiology results as stated below per my review and radiologist interpretation: CT SCAN OF THE ABDOMEN AND PELVIS WITHOUT CONTRAST CLINICAL HISTORY: Acute abdominal pain, nausea, vomiting. COMPARISON STUDY: December 2007 TECHNIQUE: CT scan of the abdomen and pelvis was performed from the lung bases to the proximal femurs. Images are reviewed in the axial, sagittal, and coronal planes. IV contrast was not administered for this examination. A dose lowering technique was utilized adhering to the principles of ALARA. CT DOSE: 1492.95 mGy.cm FINDINGS: The patient was unable to keep his arms above his head. This results in secondary streak artifact. There is also artifact secondary to motion. Lower chest: The heart is normal in size and configuration, without pericardial effusion. The lung bases and pleural spaces are clear. Liver: The unenhanced liver is normal in size, contour, and attenuation. There is no intrahepatic biliary ductal dilatation. Gallbladder: Unremarkable. Spleen: Normal in size and attenuation. Pancreas: Unremarkable. Adrenal glands: Unremarkable. Kidneys: The unenhanced kidneys are normal in size without hydronephrosis. There is no contour deforming renal mass lesion. No renal calculi are identified. Bowel: There are no transition zones indicate bowel obstruction. There is no acute diverticulitis. The appendix is not seen with certainty. Peritoneum: There is trace free pelvic fluid. No free intraperitoneal air is visualized. Vasculature: The abdominal aorta is normal in course and caliber. Adenopathy: None. Pelvic viscera: There is bladder distention. Skeletal structures: There is a new 11 mm sclerotic lesion within the left iliac bone. IMPRESSION: 1. Technically limited study secondary to the lack of intravenous and oral contrast, motion artifact, and streak artifact from the patient's arms 2. No renal, ureteral, or bladder calculi identified 3. No evidence of bowel obstruction. No evidence of free air 4. Mild bladder distention 5. New 11 mm sclerotic lesion within the left iliac bone 6. Trace free pelvic fluid Electronically signed by: Edson Sheffield M.D. 03/21/2018 1:26 PM Dictated Date/Time: 03/21/2018 1:20 PM CHEST ONE VIEW PORTABLE CLINICAL HISTORY: EVALUATE ALTERED MENTAL STATUS/WEAKNESS dyspnea COMPARISON STUDY: 12/11/2017 FINDINGS: The bones soft tissues and hemidiaphragms are normal. The cardiomediastinal silhouette is normal. The lungs are clear. The pulmonary vasculature is normal. IMPRESSION: Negative chest. The above report was generated using voice recognition software. It may contain grammatical, syntax or spelling errors. Electronically signed by: Slick Howell M.D. 03/21/2018 12:17 PM Dictated Date/Time: 03/21/2018 12:[address] HEAD WITHOUT CONTRAST (CT) CLINICAL HISTORY: Headache, dizziness, altered mental status. COMPARISON STUDY: No previous studies for comparison. TECHNIQUE: Axial CT of the brain is performed from the vertex to the skull base. IV contrast was not administered for this examination. A dose lowering technique was utilized adhering to the principles of ALARA. CT DOSE: FINDINGS: No intra or extra-axial mass lesions are visualized. There is no CT evidence of acute cortical infarction. There is no evidence of midline shift. There is no acute hemorrhage. No calvarial fractures are visualized. There is no evidence of pathologic ventricular dilatation. There is no evidence of acute sinusitis. There is minor disconjugate ocular gaze IMPRESSION: No acute intracranial findings Electronically signed by: Edson Sheffield M.D. 03/21/2018 1:19 PM Dictated Date/Time: 03/21/2018 1:18 PM Laboratory Results 03/21/18 11:09 Red Blood Count 4.22, Mean Corpuscular Volume 86.0, Mean Corpuscular Hemoglobin 29.9, Mean Corpuscular Hemoglobin Concent 34.7, Mean Platelet Volume 9.9, Neutrophils (%) (Auto) 73.7, Lymphocytes (%) (Auto) 15.6, Monocytes (%) (Auto) 8.0, Eosinophils (%) (Auto) 1.0, Basophils (%) (Auto) 1.6, Neutrophils # (Auto) 5.14, Lymphocytes # (Auto) 1.09, Monocytes # (Auto) 0.56, Eosinophils # (Auto) 0.07, Basophils # (Auto) 0.11 03/21/18 11:09 Test 03/21/18 11:09 White Blood Count 6.98 K/uL (4.8-10.8) Red Blood Count 4.22 M/uL (4.7-6.1) Hemoglobin 12.6 g/dL (14.0-18.0) Hematocrit 36.3 % (42-52) Mean Corpuscular Volume 86.0 fL (80-100) Mean Corpuscular Hemoglobin 29.9 pg (25-34) Mean Corpuscular Hemoglobin Concent 34.7 g/dl (32-36) Platelet Count 312 K/uL (130-400) Mean Platelet Volume 9.9 fL (7.4-10.4) Neutrophils (%) (Auto) 73.7 % Lymphocytes (%) (Auto) 15.6 % Monocytes (%) (Auto) 8.0 % Eosinophils (%) (Auto) 1.0 % Basophils (%) (Auto) 1.6 % Neutrophils # (Auto) 5.14 K/uL (1.4-6.5) Lymphocytes # (Auto) 1.09 K/uL (1.2-3.4) Monocytes # (Auto) 0.56 K/uL (0.11-0.59) Eosinophils # (Auto) 0.07 K/uL (0-0.5) Basophils # (Auto) 0.11 K/uL (0-0.2) RDW Standard Deviation 43.2 fL (36.4-46.3) RDW Coefficient of Variation 13.8 % (11.5-14.5) Immature Granulocyte % (Auto) 0.1 % Immature Granulocyte # (Auto) 0.01 K/uL (0.00-0.02) Prothrombin Time 10.5 SECONDS (9.0-12.0) Prothromb Time International Ratio 1.0 (0.9-1.1) Activated Partial Thromboplast Time 26.7 SECONDS (21.0-31.0) Partial Thromboplastin Ratio 1.0 Anion Gap 9.0 mmol/L (3-11) Est Creatinine Clear Calc Drug Dose 38.3 ml/min Estimated GFR () 33.9 Estimated GFR (Non- 29.2 BUN/Creatinine Ratio 13.3 (10-20) Calcium Level 9.6 mg/dl (8.5-10.1) Magnesium Level 2.3 mg/dl (1.8-2.4) Total Bilirubin 0.5 mg/dl (0.2-1) Direct Bilirubin 0.1 mg/dl (0-0.2) Aspartate Amino Transf (AST/SGOT) 19 U/L (15-37) Alanine Aminotransferase (ALT/SGPT) 16 U/L (12-78) Alkaline Phosphatase 68 U/L (45-117) Total Creatine Kinase 146 U/L (39-308) Creatine Kinase MB 1.7 ng/ml (0.5-3.6) Creatine Kinase MB Ratio 1.2 (0-3.0) Troponin I < 0.015 ng/ml (0-0.045) Total Protein 8.0 gm/dl (6.4-8.2) Albumin 3.6 gm/dl (3.4-5.0) Lipase 86 U/L (73-393) Thyroid Stimulating Hormone (TSH) 1.510 uIu/ml (0.300-4.500) Laboratory results as stated above per my review. Medications Administered Medications (Trade) Dose Ordered Sig/[place] Route Start Time Stop Time Status Last Admin Dose Admin Sodium Chloride 1,000 ml @ 999 mls/hr Q1H1M STAT IV 03/21/18 11:45 03/21/18 12:45 DC 03/21/18 11:57 999 MLS/HR Ondansetron HCl (Zofran Inj) 4 mg NOW STAT IV 03/21/18 11:45 03/21/18 11:49 DC 03/21/18 11:58 4 MG Fentanyl Citrate (Fentanyl Inj) 100 mcg NOW STAT IV 03/21/18 11:49 03/21/18 11:51 DC 03/21/18 11:58 100 MCG Prochlorperazine Edisylate (Compazine Inj) 10 mg NOW STAT IV 03/21/18 12:09 03/21/18 12:10 DC 03/21/18 12:17 10 MG Hydralazine HCl (HydrALAZINE INJ) 10 mg ONE STAT IV. 03/21/18 12:09 03/21/18 12:10 DC 03/21/18 12:17 10 MG ECG Per My Interpretation Indication: nausea, vomiting Rate (beats per minute): 99 Rhythm: sinus rhythm Findings: no acute ischemic change, no ectopy, other (No MYKE, no PVCs) ED Course 1143: Previous medical records were reviewed. The patient was evaluated in room C9. A complete history and physical examination was performed. 1145: Ordered Zofran 4 mg IV, Sodium Chloride 1000 mL @ 999 mL?hr IV, Fentanyl 100 mcg IV. 1200: Ordered Lisinopril 5 mg. 1209: Ordered Hydralazine 10 mg Iv, Compazine 10 mg IV. 1353: On reevaluation, the patient is resting in bed. I discussed the results and findings with the patient. He verbalized agreement of the treatment plan. The patient was discharged home. Medical Decision Differential includes: Acute intracranial bleed, trauma, meningitis, encephalitis, increased intracranial pressure, mass or mass effect, facial or dental infection, temporal arteritis, CVA, TIA, acute hypertensive emergency, sinusitis, carbon monoxide exposure. This is a 32-year-old male diabetic with a history of renal insufficiency presents to the ED with a chief complaint of a left-sided and frontal headache. He also states that he has some associated nausea with this. The patient states that his symptoms were present when he awoke. He also felt a little confused. His initial blood pressure was elevated at 198/111. The patient states that he did not take his blood pressure medication this morning. His physical exam was otherwise unremarkable with exception of some mild tenderness in the epigastric area. CBC is normal, BUN is 36 and creatinine is 2.73. His creatinine is near his baseline. Troponin was negative and a TSH was normal, LFTs were normal. Chest x-ray did not show acute process. A CT scan of the brain did not show acute process and a CT scan of the abdomen pelvis did not show acute process. The patient was treated with IV fluids and IV hydralazine as well as IV Zofran and IV Compazine. Oral lisinopril was also provided as the missed his dose this morning. The patient was told the results of the test. He is felt to be stable for discharge and outpatient follow-up. Prescription for Zofran ODT was provided. Patient's blood pressure did improve during his stay. Last blood pressure was 146/82. Medication Reconcilliation Current Medication List: was personally reviewed by me Blood Pressure Screening Patient's blood pressure: Elevated blood pressure Blood pressure disposition: Elevated BP felt to be situational Did not take medication this morning. Impression Primary Impression: Headache Additional Impressions: Vomiting Epigastric abdominal pain Chronic renal disease Scribe Attestation The scribe's documentation has been prepared under my direction and personally reviewed by me in its entirety. I confirm that the note above accurately reflects all work, treatment, procedures, and medical decision making performed by me. Departure Information Dispostion Home / Self-Care Prescriptions Ondasetron Odt (ZOFRAN ODT) 4 Mg Tab 4 MG SL Q6H for Nausea, #20 TAB Prov: Fredo Higginbotham D.O. 03/21/18 Referrals Ciro Singh M.D. (PCP) Additional Instructions Follow-up with your doctor for further care and evaluation in 1-2 days. Return to the emergency department for worsening or new symptoms or any concerns. You have been examined and treated today on an emergency basis only. This is not a substitute for, or an effort to provide, complete comprehensive medical care. It is impossible to recognize and treat all injuries or illnesses in a single emergency department visit. It is therefore important that you follow up closely with your doctor. Call as soon as possible for an appointment. Zofran: Allow one tablet to dissolve under the tongue every 6 hours as needed for nausea or vomiting. Problem Qualifiers
[2018-03-21] MEDS ORDERED: METOCLOPRAMIDE HCL INJ 5 MG/ML 2 ML VIAL IV STA (14:53)
[2018-03-21] MEDS ORDERED: PROMETHAZINE HCL INJ 25 MG/ML 1 ML VIAL IM STA (15:43)
[2018-03-21 15:59] VITALS: BP 148/84; PULSE 98; O2SAT 98
--- NOTE | 2018-03-21 16:46 | EMERGENCY ROOM VISIT NOTE ---
ED Visit Note I evaluated the patient and the patient had been discharged by the prior provider. The patient was still having some vomiting. This was checked and was heme negative. Patient was given an IV dose of Phenergan. I did review the patient's blood work which did not show any gross abnormalities. Patient does have CKD the baseline creatinine of 2 3 today it is 2.7. The patient left prior to being reevaluated.
[2018-03-28] MEDS ORDERED: CRG3125 PO (15:04)
[2018-03-28] MEDS ORDERED: AMX500 PO (15:04)
[2018-03-28] MEDS ORDERED: CRFUDL PO (15:04)
[2018-03-28] MEDS ORDERED: PANT40TA2 PO (15:04)
== END 2018-03-21 16:14 | disposition home or self-care (01) ==
LOC: EDBD 11:31 → C.EDC 11:31
DX: R51 Headache (principal); R11.2 Nausea with vomiting, unspecified; R10.13 Epigastric pain; N18.9 Chronic kidney disease, unspecified; E11.22 Type 2 diabetes mellitus with diabetic chronic kidney disease; Z79.4 Long term (current) use of insulin; I12.9 Hypertensive chronic kidney disease with stage 1 through stage 4 chronic kidney disease, or unspecified chronic kidney disease; Z79.899 Other long term (current) drug therapy; Z87.891 Personal history of nicotine dependence

== ENCOUNTER 2018-03-23 19:19 | Inpatient (IN) | payer OTHER ==
[~2018-03-23] VITALS: Ht 177.8 cm; Wt 72.8 kg
[~2018-03-23 19:19] MED LIST changes: +INSPMPNVLG; +LISI-789 PO; -LSN25 PO; +NRV/5 PO; -NRV5 PO; -NVLG SC; +ONDA4TAB10 SL
[2018-03-23] MEDS ORDERED: FAMOTIDINE 20MG/5ML IV PUSH IV STA (19:40)
[2018-03-23] MEDS ORDERED: SODIUM CHLORIDE 0.9% 1000ML 1,000 ML IV STA (19:40)
[2018-03-23] MEDS ORDERED: ONDANSETRON INJ 2 MG/ML 2 ML VIAL IV STA (19:40)
[2018-03-23] MEDS ORDERED: FENTANYL CITRATE INJ 50 MCG/1 ML 2 ML VIAL IV ONE (19:45)
--- NOTE | 2018-03-23 19:46 | EMERGENCY ROOM VISIT NOTE ---
History Report prepared by Sabino: Rosie Strong Under the Supervision of: Dr. Colin Hill M.D. First contact with patient: 19:34 Chief Complaint: VOMITING Stated Complaint: VOMITING, HX DIABETES History of Present Illness The patient is a 32 year old male who presents to the Emergency Room with complaints of persistent vomiting beginning 3 days ago. He notes he has been unable to keep any food down for the past few days. The patient notes he was seen in the ED 2 days ago due to feeling mentally foggy. He reports he is still experiencing this fogginess, along with a constant headache. He states he was given Zofran at discharge, which he vomited up after placing under his tongue. The patient reports diffuse abdominal pain. He reports his blood sugar has been up and down since his illness began. The patient denies diarrhea, fevers, or urinary symptoms. He also denies a history of abdominal surgeries and notes he has not had any recent sick contacts. Source of History: patient Onset: 3 days ago Position: abdomen Quality: other (vomiting) Timing: other (persistent) Modifying Factors (Relieving): other (not relieved by Zofran) Associated Symptoms: + abdominal pain (diffuse), No fevers, No diarrhea, No urinary symptoms Note: Associated symptom: mental fogginess. Review of Systems See HPI for pertinent positives and negatives. A total of ten systems were reviewed and were otherwise negative. Past Medical & Surgical Medical Problems: (1) Diabetes (2) Diabetic foot infection (3) Hypertension (4) Syncope (5) Vomiting Surgical Problems: (1) S/P eye surgery Family History Diabetes mellitus Hypertension Social History Smoking Status: Never Smoker Alcohol Use: none Drug Use: none Marital Status: single Housing Status: lives with family Occupation Status: employed Current/Historical Medications Scheduled Amlodipine Besylate (Amlodipine Besylate), 5 MG PO HS Cholecalciferol (D 5000), 1 CAP PO DAILY Insulin Aspart (novoLOG INSULIN PUMP ), 1 EA N/A UD Lisinopril (Zestril), 2.5 MG PO QAM Allergies Coded Allergies: No Known Allergies (Verified , 03/23/18) Physical Exam Vital Signs Date Time Temp Pulse Resp B/P (MAP) Pulse Ox O2 Delivery O2 Flow Rate FiO2 03/23/18 21:20 91 18 175/103 96 Room Air 8/1/18 19:21 37.0 117 18 160/108 96 Room Air Physical Exam GENERAL: Awake, alert, appears uncomfortable on the bed. HENT: Normocephalic, atraumatic. Oropharynx unremarkable other than mildly tachy mucous membranes. EYES: Normal conjunctiva. Sclera non-icteric. NECK: Supple. No nuchal rigidity. RESPIRATORY: Clear to auscultation. No wheezes. Normal respiratory effort. CARDIAC: Tachycardic rate. Normal rhythm. Extremities warm and well perfused. GI: Soft, non-distended. No tenderness to palpation. No rebound or guarding. No masses. Mild LUQ tenderness RECTAL: Deferred. MUSCULOSKELETAL: Atraumatic. Chest examination reveals no tenderness. There is no CVA tenderness to palpation. LOWER EXTREMITIES: Calves are equal size bilaterally and non-tender. No edema. R foot in walking boot. NEURO: Normal sensorium. No sensory or motor deficits noted. No facial droop. SKIN: Warm and dry. No rash or jaundice noted. Medical Decision & Procedures ER Provider Diagnostic Interpretation: Radiology results as stated below per my review and radiologist interpretation: CT SCAN OF THE ABDOMEN AND PELVIS WITHOUT CONTRAST CLINICAL HISTORY: Nausea and vomiting COMPARISON STUDY: 03/21/2018 TECHNIQUE: CT scan of the abdomen and pelvis was performed from the lung bases to the proximal femurs. Images are reviewed in the axial, sagittal, and coronal planes. IV contrast was not administered for this examination. A dose lowering technique was utilized adhering to the principles of ALARA. CT DOSE: 280.02 mGy.cm FINDINGS: Lower chest: The heart is normal in size and configuration, without pericardial effusion. The lung bases and pleural spaces are clear. There is mild distal esophageal wall thickening. Liver: The unenhanced liver is normal in size, contour, and attenuation. There is no intrahepatic biliary ductal dilatation. Gallbladder: There is equivocal layering bile within the gallbladder Spleen: Normal in size and attenuation. Pancreas: Unremarkable. Adrenal glands: Unremarkable. Kidneys: No renal, ureteral, or bladder calculi are visualized. Bowel: There are no transition zones indicate bowel obstruction. There is borderline rectal wall thickening. There is no evidence of acute diverticulitis. The appendix is not visualized with certainty. There are no findings on this noncontrast study to indicate acute appendicitis Peritoneum: There is no intraperitoneal free air or abdominal ascites. Vasculature: The abdominal aorta is normal in course and caliber. There are vascular calcifications. Distribution raises the possibility of diabetes given the patient's young age. Adenopathy: None. Pelvic viscera: The bladder, and pelvic viscera are unremarkable. Skeletal structures: There is a stable 11 mm chronic lesion within the left iliac bone. IMPRESSION: 1. Study limited due to the lack of intravenous and oral contrast. 2. No renal, ureteral, or bladder calculi identified 3. No evidence of bowel obstruction. No evidence of free air 4. Stable 11 mm sclerotic lesion within the left iliac bone 5. Mild distal esophageal wall thickening. 6. Borderline rectal wall thickening. Electronically signed by: Edson Sheffield M.D. 03/23/2018 9:54 PM Dictated Date/Time: 03/23/2018 9:47 PM Laboratory Results 03/23/18 19:30 Red Blood Count 4.09, Mean Corpuscular Volume 85.1, Mean Corpuscular Hemoglobin 29.8, Mean Corpuscular Hemoglobin Concent 35.1, Mean Platelet Volume 9.8, Neutrophils (%) (Auto) 83.0, Lymphocytes (%) (Auto) 5.9, Monocytes (%) (Auto) 10.7, Eosinophils (%) (Auto) 0.1, Basophils (%) (Auto) 0.1, Neutrophils # (Auto ) 13.84, Lymphocytes # (Auto) 0.98, Monocytes # (Auto) 1.78, Eosinophils # (Auto ) 0.01, Basophils # (Auto) 0.02 03/23/18 19:30 Test 03/23/18 19:30 03/23/18 19:58 White Blood Count 16.67 K/uL (4.8-10.8) Red Blood Count 4.09 M/uL (4.7-6.1) Hemoglobin 12.2 g/dL (14.0-18.0) Hematocrit 34.8 % (42-52) Mean Corpuscular Volume 85.1 fL (80-100) Mean Corpuscular Hemoglobin 29.8 pg (25-34) Mean Corpuscular Hemoglobin Concent 35.1 g/dl (32-36) Platelet Count 324 K/uL (130-400) Mean Platelet Volume 9.8 fL (7.4-10.4) Neutrophils (%) (Auto) 83.0 % Lymphocytes (%) (Auto) 5.9 % Monocytes (%) (Auto) 10.7 % Eosinophils (%) (Auto) 0.1 % Basophils (%) (Auto) 0.1 % Neutrophils # (Auto) 13.84 K/uL (1.4-6.5) Lymphocytes # (Auto) 0.98 K/uL (1.2-3.4) Monocytes # (Auto) 1.78 K/uL (0.11-0.59) Eosinophils # (Auto) 0.01 K/uL (0-0.5) Basophils # (Auto) 0.02 K/uL (0-0.2) RDW Standard Deviation 42.6 fL (36.4-46.3) RDW Coefficient of Variation 13.7 % (11.5-14.5) Immature Granulocyte % (Auto) 0.2 % Immature Granulocyte # (Auto) 0.04 K/uL (0.00-0.02) Anion Gap 11.0 mmol/L (3-11) Est Creatinine Clear Calc Drug Dose 25.8 ml/min Estimated GFR () 21.9 Estimated GFR (Non- 18.9 BUN/Creatinine Ratio 19.7 (10-20) Calcium Level 8.9 mg/dl (8.5-10.1) Phosphorus Level 3.7 mg/dl (2.5-4.9) Magnesium Level 2.7 mg/dl (1.8-2.4) Total Bilirubin 0.8 mg/dl (0.2-1) Direct Bilirubin 0.2 mg/dl (0-0.2) Aspartate Amino Transf (AST/SGOT) 16 U/L (15-37) Alanine Aminotransferase (ALT/SGPT) 21 U/L (12-78) Alkaline Phosphatase 73 U/L (45-117) Total Protein 7.0 gm/dl (6.4-8.2) Albumin 3.1 gm/dl (3.4-5.0) Lipase 52 U/L (73-393) Venous Blood pH 7.42 (7.36-7.41) Venous Blood Partial Pressure CO2 40 mmHg (38.0-50.0) Venous Blood Partial Pressure O2 68 mmHg Venous Blood HCO3 25 mmol/L Venous Blood Oxygen Saturation 92.5 % Venous Blood Base Excess 0.4 mEq/L Lactic Acid Level 0.8 mmol/L (0.4-2.0) Laboratory results reviewed by me Medications Administered Medications (Trade) Dose Ordered Sig/Ever[place] Route Start Time Stop Time Status Last Admin Dose Admin Sodium Chloride 1,000 ml @ 999 mls/hr Q1H1M STAT IV 03/23/18 19:40 03/23/18 20:40 DC 03/23/18 20:00 999 MLS/HR Ondansetron HCl (Zofran Inj) 4 mg NOW STAT IV 03/23/18 19:40 03/23/18 19:46 DC 03/23/18 20:00 4 MG Fentanyl Citrate (Fentanyl Inj) 100 mcg NOW ONCE IV 03/23/18 19:45 03/23/18 19:46 DC 03/23/18 20:00 100 MCG Famotidine (Pepcid 20mg Iv Push) 20 mg ONE STAT IV 03/23/18 19:40 03/23/18 19:46 DC 03/23/18 20:00 20 MG Sodium Chloride 1,000 ml @ 999 mls/hr Q1H1M ONCE IV 03/23/18 20:28 03/23/18 21:28 DC 03/23/18 20:36 999 MLS/HR Prochlorperazine Edisylate (Compazine Inj) 10 mg NOW STAT IV 03/23/18 20:28 03/23/18 20:30 DC 03/23/18 20:35 10 MG Diphenhydramine HCl (Benadryl Inj) 25 mg NOW STAT IV 03/23/18 20:28 03/23/18 20:30 DC 03/23/18 20:35 25 MG ED Course 1930: The patient was evaluated in room B12B. A complete history and physical exam was performed. 1939: Ordered Famotidine 20 mg IV, Zofran Inj 4 mg IV, Sodium Chloride 1000 ml @ 999 mls/hr IV. 1944: Ordered Fentanyl Inj 100 mcg IV. 2027: Ordered Benadryl Inj 25 mg IV, Compazine Inj 10 mg IV, Sodium Chloride 1000 ml @ 999 mls/hr IV. 2039: I reevaluated and updated the patient. 2041: [facility] the [facility] The patient will be evaluated for further treatment and disposition. Medical Decision Etiologies such as gastroenteritis, food borne illness, infections, appendicitis , diverticulitis, inflammatory bowel disease, obstruction, GI bleed, biliary pathology, as well as others were entertained. Patient presents complaining of headache and abdominal pain with intractable nausea over the past 3 days. Was seen here 2 days ago and evaluation at that time with laboratory studies CT of the head and abdomen pelvis. Chronic kidney disease. Type I diabetic. Patient with some left upper quadrant tenderness on exam but otherwise benign at recent CT and will defer additional repeat scan at this time. Laboratory studies were sent including venous blood gas. Fluid rehydrated and treated symptomatically for pain and nausea. Doubt this represents acute intracranial abnormality or bleed given the prior CT findings. Likely secondary to dehydration. Not acidotic and I doubt acute DKA. No evidence of pancreatitis. Mild leukocytosis but significantly worse renal function with acute kidney injury from baseline CKD. Given fluid hydration. Likely has some migrainous symptoms likely from dehydration given Compazine and Benadryl help with headache as well. Patient require admission for rehydration , symptom control, better glucose control, and monitoring of his acute kidney injury for improvement. Medication Reconcilliation Current Medication List: was personally reviewed by me Blood Pressure Screening Patient's blood pressure: Elevated blood pressure Blood pressure disposition: Did not require urgent referral (referred to hospitalist) Consults Time Called: 2039 Consulting Physician: Gwendolyn Boyer hospitalist Returned Call: 2041 Discussed the patient's case with Gwendolyn Boyer hospitalist. The patient will be evaluated for further treatment and disposition. Impression Primary Impression: Acute kidney injury Additional Impressions: Nausea & vomiting Headache Hyperglycemia Scribe Attestation The scribe's documentation has been prepared under my direction and personally reviewed by me in its entirety. I confirm that the note above accurately reflects all work, treatment, procedures, and medical decision making performed by me. Departure Information Dispostion Being Evaluated By Hospitalist Referrals Ciro Singh M.D. (PCP) Patient Instructions My [facility] Problem Qualifiers Additional Impressions: Nausea & vomiting Vomiting type: unspecified Vomiting Intractability: intractable Qualified Codes: R11.2 - Nausea with vomiting, unspecified Headache Headache type: unspecified Headache chronicity pattern: acute headache Intractability: intractable Qualified Codes: R51 - Headache
[2018-03-23 19:57] LABS: BASO % 0.1 %; BASO ABS # 0.02 K/uL (0-0.2); EOS % 0.1 %; EOS ABS # 0.01 K/uL (0-0.5); HEMATOCRIT 34.8 % (42-52); HEMOGLOBIN 12.2 g/dL (14.0-18.0); IG# 0.04 K/uL (0.00-0.02); LYMPH % 5.9 %; LYMPH ABS # 0.98 K/uL (1.2-3.4); MEAN CELL VOLUME 85.1 fL (80-100); MEAN CORPUSCULAR HEMOGLOBIN 29.8 pg (25-34); MEAN CORPUSCULAR HGB CONC 35.1 g/dl (32-36); MEAN PLATELET VOLUME 9.8 fL (7.4-10.4); MONO % 10.7 %; MONO ABS # 1.78 K/uL (0.11-0.59); NEUT ABS # 13.84 K/uL (1.4-6.5); PLATELET COUNT 324 K/uL (130-400); RED CELL DISTRIBUTION WIDTH CV 13.7 % (11.5-14.5); RED CELL DISTRIBUTION WIDTH SD 42.6 fL (36.4-46.3); WHITE BLOOD COUNT 16.67 K/uL (4.8-10.8)
[2018-03-23 20:20] LABS: ALBUMIN 3.1 gm/dl (3.4-5.0); CALCIUM 8.9 mg/dl (8.5-10.1); CREATININE 3.92 mg/dl (0.60-1.40); POTASSIUM 3.8 mmol/L (3.5-5.1)
[2018-03-23] MEDS ORDERED: SODIUM CHLORIDE 0.9% 1000ML 1,000 ML IV ONE (20:28)
[2018-03-23] MEDS ORDERED: DiphenhydrAMINE HCL 50 MG/ML VIAL IV STA (20:28)
[2018-03-23] MEDS ORDERED: PROCHLORPERAZINE 5 MG/ML 2 ML VIAL IV STA (20:28)
[2018-03-23] MEDS ORDERED: ONDANSETRON INJ 2 MG/ML 2 ML VIAL IV PRN (21:30)
[2018-03-23] MEDS ORDERED: POLYETHYLENE (MIRALAX) 17 GM PACK PO PRN (21:30)
[2018-03-23] MEDS ORDERED: CHOLCAP10 PO (21:33)
[2018-03-23] MEDS: SODIUM CHLORIDE 0.9% 1000ML 1,000 ML IV SCH (21:36)
--- NOTE | 2018-03-23 21:44 | History and Physical ---
History & Physical Date & Time of Service: Mar 23, 2018 at 21:20 Chief Complaint: Vomiting, Hx Diabetes Primary Care Physician: Ciro Singh M.D. History of Present Illness Source: patient He is a 32-year-old white male with significant past medical history of chronic kidney disease stage III type 1 diabetes on insulin therapy hypertension and also to work use disorder and apparently was in ER on the of last month with an attack of syncope and collapsed followed by profuse nausea and vomiting. He was evaluated by the ER physician and apparent blood test and imaging studies were unremarkable and he was sent home. For the last 3 days he has been complaining of constant nausea and vomiting to an extent that his voice has been affected by this and he feels weak and tired. He does have some abdominal discomfort but no definite pain associated with it. He denies to any recent hypoglycemic event and he denies to have any fever, chills, riders, any abdominal distention, any numbness or tingling in the extremities and/or any more episode of blackout since 21 March of this year. He denies to use any alcohol and/or any illicit drugs. In the ER he was afebrile, hemodynamically stable and his white count was elevated to 16,000 and he is creatinine went up to 3.9 from 2.4 3 days back. He was still having discomfort and nausea with weakness during my examination. He was admitted to telemetry unit for observation. Past Medical/Surgical History Medical Problems: (1) Acute renal failure (2) Anemia (3) Cellulitis (4) Cellulitis (5) Cellulitis of right lower extremity (6) Chronic renal disease (7) Chronic wound of extremity (8) CKD (chronic kidney disease) (9) Diabetes (10) Diabetic foot infection (11) Epigastric abdominal pain (12) Headache (13) Hyperglycemia (14) Hyperkalemia (15) Hypertension (16) Leg pain (17) Leg swelling (18) UTI (urinary tract infection) (19) Vomiting Surgical Problems: (1) S/P eye surgery Family History Diabetes mellitus Hypertension Social History Smoking Status: Never Smoker Smokeless Tobacco Use: No Alcohol Use: none Drug Use: none Marital Status: single Occupational Status: employed Immunizations History of Influenza Vaccine: N/A History of Tetanus Vaccine?: Yes Tetanus Immunization Date: Dec 08, 2008 History of Pneumococcal: No History of Hepatitis B Vaccine: No Allergies Coded Allergies: No Known Allergies (Verified , 03/23/18) Home Medications Scheduled Amlodipine Besylate (Amlodipine Besylate), 2.5 MG PO HS Insulin Aspart (novoLOG INSULIN PUMP ), 1 EA N/A UD Insulin Glargine (Lantus Solostar), 0 SC DIRECTED Lisinopril (Zestril), 2.5 MG PO QAM Multivitamin (Multivitamin), 1 TAB PO DAILY Review of Systems Constitutional: + chills, + weakness, + fatigue ENT: + sore throat (From Nausea and vimiting) Abdomen: + nausea, + vomiting Neurologic: + weakness Physical Exam Vital Signs Date Time Temp Pulse Resp B/P (MAP) Pulse Ox O2 Delivery O2 Flow Rate FiO2 03/23/18 19:21 37.0 117 18 160/108 96 Room Air General Appearance: + mild distress Head: normocephalic Eyes: normal inspection, PERRL, EOMI, sclerae normal ENT: normal ENT inspection Neck: supple, no adenopathy, thyroid normal Respiratory/Chest: lungs clear Cardiovascular: regular rate, rhythm Abdomen/GI: normal bowel sounds, + tenderness (Mild tenderness all over) Back: normal inspection Extremities/Musculoskelatal: normal inspection Neurologic/Psych: normal mood/affect Skin: normal color Lymphatic: no adenopathy Diagnostics Laboratory Results Results Past 24 Hours Test 03/23/18 19:30 03/23/18 19:58 Range/Units White Blood Count 16.67 4.8-10.8 K/uL Red Blood Count 4.09 4.7-6.1 M/uL Hemoglobin 12.2 14.0-18.0 g/dL Hematocrit 34.8 42-52 % Mean Corpuscular Volume 85.1 80-100 fL Mean Corpuscular Hemoglobin 29.8 25-34 pg Mean Corpuscular Hemoglobin Concent 35.1 32-36 g/dl Platelet Count 324 130-400 K/uL Mean Platelet Volume 9.8 7.4-10.4 fL Neutrophils (%) (Auto) 83.0 % Lymphocytes (%) (Auto) 5.9 % Monocytes (%) (Auto) 10.7 % Eosinophils (%) (Auto) 0.1 % Basophils (%) (Auto) 0.1 % Neutrophils # (Auto) 13.84 1.4-6.5 K/uL Lymphocytes # (Auto) 0.98 1.2-3.4 K/uL Monocytes # (Auto) 1.78 0.11-0.59 K/uL Eosinophils # (Auto) 0.01 0-0.5 K/uL Basophils # (Auto) 0.02 0-0.2 K/uL RDW Standard Deviation 42.6 36.4-46.3 fL RDW Coefficient of Variation 13.7 11.5-14.5 % Immature Granulocyte % (Auto) 0.2 % Immature Granulocyte # (Auto) 0.04 0.00-0.02 K/uL Sodium Level 140 136-145 mmol/L Potassium Level 3.8 3.5-5.1 mmol/L Chloride Level 103 98-107 mmol/L Carbon Dioxide Level 25 21-32 mmol/L Anion Gap 11.0 3-11 mmol/L Blood Urea Nitrogen 77 7-18 mg/dl Creatinine 3.92 0.60-1.40 mg/dl Est Creatinine Clear Calc Drug Dose 25.8 ml/min Estimated GFR () 21.9 Estimated GFR (Non- 18.9 BUN/Creatinine Ratio 19.7 10-20 Random Glucose 284 70-99 mg/dl Calcium Level 8.9 8.5-10.1 mg/dl Total Bilirubin 0.8 0.2-1 mg/dl Direct Bilirubin 0.2 0-0.2 mg/dl Aspartate Amino Transf (AST/SGOT) 16 15-37 U/L Alanine Aminotransferase (ALT/SGPT) 21 12-78 U/L Alkaline Phosphatase 73 45-117 U/L Total Protein 7.0 6.4-8.2 gm/dl Albumin 3.1 3.4-5.0 gm/dl Lipase 52 73-393 U/L Venous Blood pH 7.42 7.36-7.41 Venous Blood Partial Pressure CO2 40 38.0-50.0 mmHg Venous Blood Partial Pressure O2 68 mmHg Venous Blood HCO3 25 mmol/L Venous Blood Oxygen Saturation 92.5 % Venous Blood Base Excess 0.4 mEq/L Lactic Acid Level 0.8 0.4-2.0 mmol/L Diagnostic Radiology CXR -pending,CT of the Abdomen and Pelvis-pending Impression Assessment and Plan Syncope and collapse; Causes could be secondary to hypoglycemic episode, infection, dehydration and hypotension Doubt any meningitis or arrhythmias at this time Happened on 21 March last month Was evaluated in ER and was sent home He will be admitted to telemetry unit for monitoring Orthostatic blood pressure pulse Type 1 diabetes on insulin pump May have hypoglycemic episode Pharmacist management of diabetes Doubt any DKA Check hemoglobin A1c Nausea and vomiting ::R/O Gastroparesis With some abdominal discomfort and High WCC could be due to stress Has been going on for the last 3 days There is no abdominal distention We will get CAT scan of the abdomen and pelvis rule out any intra-abdominal cause/intestinal obstruction Acute on chronic kidney disease Likely secondary to dehydration from nausea and vomiting We will give him adequate amount of IV fluid and monitor PRP If the kidney function does not get better we need to consult crib attendant Hypertension Blood pressure is noted to be very high in the emergency room Has not been taking his amlodipine and lisinopril We will continue amlodipine and hold lisinopril for now GI prophylaxis Will give Maalox Mylanta as needed DVT prophylaxis Subcu heparin CODE STATUS; full In my clinical assessment the beneficially meets criteria as per CMS for 2 minute rest in the hospital thank . Resuscitation Status VTE Prophylaxis Will order VTE Prophylaxis: Yes
[2018-03-23] MEDS ORDERED: PROMETHAZINE HCL INJ 12.5 MG in SODIUM CHLORIDE 0.9% 50ML 50 ML IV PRN (21:45)
[2018-03-23] MEDS ORDERED: PHARMACY GLYCEMIC MGMT CONSULT PRN (21:55)
--- NOTE | 2018-03-23 21:56 | DIAGNOSTIC IMAGING REPORT ---
CT SCAN OF THE ABDOMEN AND PELVIS WITHOUT CONTRAST CLINICAL HISTORY: Nausea and vomiting COMPARISON STUDY: 03/21/2018 TECHNIQUE: CT scan of the abdomen and pelvis was performed from the lung bases to the proximal femurs. Images are reviewed in the axial, sagittal, and coronal planes. IV contrast was not administered for this examination. A dose lowering technique was utilized adhering to the principles of ALARA. CT DOSE: 280.02 mGy.cm FINDINGS: Lower chest: The heart is normal in size and configuration, without pericardial effusion. The lung bases and pleural spaces are clear. There is mild distal esophageal wall thickening. Liver: The unenhanced liver is normal in size, contour, and attenuation. There is no intrahepatic biliary ductal dilatation. Gallbladder: There is equivocal layering bile within the gallbladder Spleen: Normal in size and attenuation. Pancreas: Unremarkable. Adrenal glands: Unremarkable. Kidneys: No renal, ureteral, or bladder calculi are visualized. Bowel: There are no transition zones indicate bowel obstruction. There is borderline rectal wall thickening. There is no evidence of acute diverticulitis. The appendix is not visualized with certainty. There are no findings on this noncontrast study to indicate acute appendicitis Peritoneum: There is no intraperitoneal free air or abdominal ascites. Vasculature: The abdominal aorta is normal in course and caliber. There are vascular calcifications. Distribution raises the possibility of diabetes given the patient's young age. Adenopathy: None. Pelvic viscera: The bladder, and pelvic viscera are unremarkable. Skeletal structures: There is a stable 11 mm chronic lesion within the left iliac bone. IMPRESSION: 1. Study limited due to the lack of intravenous and oral contrast. 2. No renal, ureteral, or bladder calculi identified 3. No evidence of bowel obstruction. No evidence of free air 4. Stable 11 mm sclerotic lesion within the left iliac bone 5. Mild distal esophageal wall thickening. 6. Borderline rectal wall thickening. Electronically signed by: Edson Sheffield M.D. 03/23/2018 9:54 PM Dictated Date/Time: 03/23/2018 9:47 PM
[2018-03-23] MEDS ORDERED: AMLODIPINE BESYLATE 5 MG TAB PO STA (21:58)
[2018-03-23 22:00] LABS: PHOSPHORUS 3.7 mg/dl (2.5-4.9)
[2018-03-23] MEDS ORDERED: GLUCAGON FOR INJ 1 MG VIAL IM PRN (22:00)
[2018-03-23] MEDS ORDERED: ALUMINUM/MAGNESIUM/SIMETH (MAALOX MAX) 30 ML UDC PO PRN (22:00)
[2018-03-23] MEDS ORDERED: GLUCOSE 40% GEL 15 GM TUBE PO PRN (22:00)
[2018-03-23] MEDS ORDERED: DEXTROSE 50% 50 ML SYR IV PRN (22:00)
[2018-03-23] MEDS ORDERED: GLUCOSE 10 TABS/TUBE PO PRN (22:00)
[2018-03-23] MEDS ORDERED: INSULIN ASPART 100 UNITS/ML VIAL SC PRN (22:00)
[2018-03-23] MEDS ORDERED: NovoLOG INSULIN PUMP SCH (22:00)
--- NOTE | 2018-03-23 22:18 | DIAGNOSTIC IMAGING REPORT ---
CHEST 2 VIEWS ROUTINE CLINICAL HISTORY: Nausea and vomiting COMPARISON STUDY: 03/21/2018 FINDINGS: The cardiac and mediastinal contours are normal. There is no evidence of focal pulmonary consolidation. There is no evidence of failure. No pleural effusions are visualized.[ There is no free intraperitoneal air. IMPRESSION: No active disease in the chest. Electronically signed by: Edson Sheffield M.D. 03/23/2018 10:16 PM Dictated Date/Time: 03/23/2018 10:16 PM
[2018-03-23 22:20] VITALS: BP 175/92; PULSE 101; TEMP 36.8; O2SAT 97; BMI 21.3
[2018-03-23] MEDS: NovoLOG INSULIN PUMP SCH (23:26)
[2018-03-23] MEDS: HEPARIN SOD 5000 UNIT/0.5 ML CARP SQ SCH (23:41)
[2018-03-24] VITALS (7 sets, daily range): BP systolic 132–179; BP diastolic 72–97; PULSE 67–99; TEMP 36.9–38.1; O2SAT 95–99; BMI 19.8
[2018-03-24] MEDS: HEPARIN SOD 5000 UNIT/0.5 ML CARP SQ SCH ×3 (06:00→21:25)
[2018-03-24] MEDS: ACETAMINOPHEN 325 MG TAB PO PRN ×2 (06:23→21:21)
[2018-03-24 06:52] LABS: BASO % 0.2 %; BASO ABS # 0.02 K/uL (0-0.2); EOS % 0.2 %; EOS ABS # 0.03 K/uL (0-0.5); HEMATOCRIT 32.4 % (42-52); HEMOGLOBIN 11.2 g/dL (14.0-18.0); IG# 0.02 K/uL (0.00-0.02); LYMPH % 7.7 %; LYMPH ABS # 0.98 K/uL (1.2-3.4); MEAN CELL VOLUME 85.5 fL (80-100); MEAN CORPUSCULAR HEMOGLOBIN 29.6 pg (25-34); MEAN CORPUSCULAR HGB CONC 34.6 g/dl (32-36); MONO % 11.9 %; MONO ABS # 1.52 K/uL (0.11-0.59); NEUT % 79.8 %; NEUT ABS # 10.19 K/uL (1.4-6.5); PLATELET COUNT 230 K/uL (130-400); RED CELL DISTRIBUTION WIDTH CV 13.7 % (11.5-14.5); RED CELL DISTRIBUTION WIDTH SD 43.1 fL (36.4-46.3); WHITE BLOOD COUNT 12.76 K/uL (4.8-10.8)
[2018-03-24] MEDS: NovoLOG INSULIN PUMP SCH ×4 (07:00→21:00)
[2018-03-24 07:27] LABS: CALCIUM 8.2 mg/dl (8.5-10.1); CREATININE 2.85 mg/dl (0.60-1.40); PHOSPHORUS 2.8 mg/dl (2.5-4.9); POTASSIUM 3.5 mmol/L (3.5-5.1)
[2018-03-24] MEDS: SODIUM CHLORIDE 0.9% 1000ML 1,000 ML IV SCH ×2 (08:16→18:14)
[2018-03-24] MEDS: CHOLECALCIFEROL 1000 INTER.UNIT TAB PO SCH (08:16)
--- NOTE | 2018-03-24 08:34 | Pharmacy Progress Note ---
Glycemic Control Intl Consult Date of Service Mar 24, 2018. Scope Glycemic Pharmacist consulted by Laura Srivastava on 03/23/18 for glycemic control and to write orders per [facility] inpatient glycemic control protocol Objective Weight (Kilograms): 62.500 Accuchecks BSG (last 24hrs): Test 03/23/18 19:30 03/23/18 22:59 03/24/18 06:40 03/24/18 07:35 Random Glucose 284 mg/dl (70-99) 97 mg/dl (70-99) Bedside Glucose 211 mg/dl (70-99) 91 mg/dl (70-99) Laboratory Data (last 24hrs) Test 03/23/18 19:30 03/24/18 06:40 Anion Gap 11.0 mmol/L 7.0 mmol/L BUN/Creatinine Ratio 19.7 18.5 Blood Urea Nitrogen 77 mg/dl 53 mg/dl Creatinine 3.92 mg/dl 2.85 mg/dl Potassium Level 3.8 mmol/L 3.5 mmol/L Sodium Level 140 mmol/L 142 mmol/L White Blood Count 16.67 K/uL 12.76 K/uL Red Blood Count 4.09 M/uL 3.79 M/uL Hemoglobin 12.2 g/dL 11.2 g/dL Hematocrit 34.8 % 32.4 % Mean Corpuscular Volume 85.1 fL 85.5 fL Mean Corpuscular Hemoglobin 29.8 pg 29.6 pg Mean Corpuscular Hemoglobin Concent 35.1 g/dl 34.6 g/dl Platelet Count 324 K/uL 230 K/uL Mean Platelet Volume 9.8 fL 9.0 fL Neutrophils (%) (Auto) 83.0 % 79.8 % Lymphocytes (%) (Auto) 5.9 % 7.7 % Monocytes (%) (Auto) 10.7 % 11.9 % Eosinophils (%) (Auto) 0.1 % 0.2 % Basophils (%) (Auto) 0.1 % 0.2 % Neutrophils # (Auto) 13.84 K/uL 10.19 K/uL Lymphocytes # (Auto) 0.98 K/uL 0.98 K/uL Monocytes # (Auto) 1.78 K/uL 1.52 K/uL Eosinophils # (Auto) 0.01 K/uL 0.03 K/uL Basophils # (Auto) 0.02 K/uL 0.02 K/uL Recent Pertinent Medications Outpatient Anti-diabetic Regimen: Novolog pump with the following settings Basal rates: 0.75 units/hr (midnight - 6 am) 0.925 units/hr (6 am - midnight) Bolus settings: CF 40 mg/dL/unit CR 1 unit per 11 gm CHO A1c = 8.3 % 02/10/18 The patient is currently receiving: * Novolog insulin pump continued from home Risk Factors for Insulin Resistance: * None Assessment & Plan ASSESSMENT: * 32 y/o male admitted with severe nausea/vomiting, with type 1 diabetes managed on an insulin pump as an outpatient. Followed by pharmacy [facility] in [facility]. A1c is above goal but not significantly elevated, has improved significantly since October (13.7%). Other pertinent PMH includes CKD Stage III. * Insulin pump has continued into admission. RN notes indicate insulin pump agreement already signed. * BSGs were elevated last evening but fasting is WNL this AM. SCr back to baseline. [place] FOR INPATIENT GLYCEMIC CONTROL: * Continue Novolog insulin pump with usual settings managed by patient * If BSGs become unstable, pharmacy will transition to SQ basal/bolus injections with following doses: * Lantus 10 units BID * Novolog with goal 110-150, CF 40, CR 11 Discharge Recommendations: * Continue close follow up with [facility] clinic for insulin pump management Thank you.
[2018-03-24] MEDS ORDERED: FAMOTIDINE IV INJ 20 MG in DEXTROSE 5% 100ML 100 ML IV SCH (11:00)
--- NOTE | 2018-03-24 11:37 | Progress Note ---
Internal Med Progress Note Date of Service: Mar 24, 2018. Provider Documentation: SUBJECTIVE: Seen and examined at bedside Feels slightly better today Still has nausea Headache improving Reports sore throat and hoarseness with intermittent cough Denies chest pain, SOB, abdominal pain, diarrhea, dizziness No other complaints OBJECTIVE: Vital Signs-as noted below Physical Exam: General Appearance:Moderately built and nourished, no apparent distress Head: normocephalic, Atraumatic Eyes: normal inspection, EOMI, PERRL Neck: supple, Trachea midline Respiratory/Chest: Normal breath sounds, CTA Cardiovascular: S1, S2, +Tachycardia, No murmur Abdomen/GI:Soft, mild generalized tender, Bowel sounds present Extremities/Musculoskelatal:normal inspection, no edema Neurologic/Psych:AAOX3, grossly no focal neurological deficits Skin: normal color, warm Lab data as noted below. ASSESSMENT & PLAN: Recent Syncope and collapse Occurred on March 21 DD: hypoglycemic episode, hypotension tele monitoring: No issues so far Check Orthostatics DM Type 1 On Insulin pump at home monitor for hypoglycemic episodes Check A1C Pharmacist consulted for diabetes management No signs of DKA Possible Pharyngitis/Laryngitis CXR: no active disease Check Rapid Strep screen Leukocytosis trending down Consider Abx if screen is positive Nausea and vomiting ?? Gastroparesis CT abd:No evidence of bowel obstruction. Mild distal esophageal wall thickening. Tox Screen: Negative IV fluids Start Reglan Consider GI eval May need EGD/Gastric emptying study if no improvement Start Pepcid Acute renal failure on CKD III Likely prerenal Continue IV fluid monitor PRP Cr:3.92>>>2.85 Consider Nephrology eval if no improvement Hypertension Headache could be 2/2 elevated BP Increase amlodipine to 10mg daily Hold lisinopril 2/2 JUANA monitor DVT Px: SQ heparin Code Status Full Code Disposition: Expect to discharge home when stable Vital Signs: Date Time Temp Pulse Resp B/P (MAP) Pulse Ox O2 Delivery O2 Flow Rate FiO2 03/24/18 08:00 96 Room Air 03/24/18 07:10 36.9 95 18 170/92 (118) 96 Room Air 03/24/18 03:51 36.9 99 18 170/89 (116) 99 Room Air 03/23/18 22:20 36.8 101 18 175/92 97 Room Air 03/23/18 21:20 91 18 175/103 96 Room Air 03/23/18 19:21 37.0 117 18 160/108 96 Room Air Lab Results: Results Past 24 Hours Test 03/23/18 19:30 03/23/18 19:58 03/23/18 22:59 03/24/18 03:20 Range/Units White Blood Count 16.67 4.8-10.8 K/uL Red Blood Count 4.09 4.7-6.1 M/uL Hemoglobin 12.2 14.0-18.0 g/dL Hematocrit 34.8 42-52 % Mean Corpuscular Volume 85.1 80-100 fL Mean Corpuscular Hemoglobin 29.8 25-34 pg Mean Corpuscular Hemoglobin Concent 35.1 32-36 g/dl Platelet Count 324 130-400 K/uL Mean Platelet Volume 9.8 7.4-10.4 fL Neutrophils (%) (Auto) 83.0 % Lymphocytes (%) (Auto) 5.9 % Monocytes (%) (Auto) 10.7 % Eosinophils (%) (Auto) 0.1 % Basophils (%) (Auto) 0.1 % Neutrophils # (Auto) 13.84 1.4-6.5 K/uL Lymphocytes # (Auto) 0.98 1.2-3.4 K/uL Monocytes # (Auto) 1.78 0.11-0.59 K/uL Eosinophils # (Auto) 0.01 0-0.5 K/uL Basophils # (Auto) 0.02 0-0.2 K/uL RDW Standard Deviation 42.6 36.4-46.3 fL RDW Coefficient of Variation 13.7 11.5-14.5 % Immature Granulocyte % (Auto) 0.2 % Immature Granulocyte # (Auto) 0.04 0.00-0.02 K/uL Sodium Level 140 136-145 mmol/L Potassium Level 3.8 3.5-5.1 mmol/L Chloride Level 103 98-107 mmol/L Carbon Dioxide Level 25 21-32 mmol/L Anion Gap 11.0 3-11 mmol/L Blood Urea Nitrogen 77 7-18 mg/dl Creatinine 3.92 0.60-1.40 mg/dl Est Creatinine Clear Calc Drug Dose 25.8 ml/min Estimated GFR () 21.9 Estimated GFR (Non- 18.9 BUN/Creatinine Ratio 19.7 10-20 Random Glucose 284 70-99 mg/dl Calcium Level 8.9 8.5-10.1 mg/dl Phosphorus Level 3.7 2.5-4.9 mg/dl Magnesium Level 2.7 1.8-2.4 mg/dl Total Bilirubin 0.8 0.2-1 mg/dl Direct Bilirubin 0.2 0-0.2 mg/dl Aspartate Amino Transf (AST/SGOT) 16 15-37 U/L Alanine Aminotransferase (ALT/SGPT) 21 12-78 U/L Alkaline Phosphatase 73 45-117 U/L Total Protein 7.0 6.4-8.2 gm/dl Albumin 3.1 3.4-5.0 gm/dl Lipase 52 73-393 U/L Venous Blood pH 7.42 7.36-7.41 Venous Blood Partial Pressure CO2 40 38.0-50.0 mmHg Venous Blood Partial Pressure O2 68 mmHg Venous Blood HCO3 25 mmol/L Venous Blood Oxygen Saturation 92.5 % Venous Blood Base Excess 0.4 mEq/L Lactic Acid Level 0.8 0.4-2.0 mmol/L Bedside Glucose 211 70-99 mg/dl Urine Color YELLOW Urine Appearance CLEAR CLEAR Urine pH 5.0 4.5-7.5 Urine Specific [place] 1.022 1.000-1.030 Urine Protein 4+ NEG Urine Glucose (UA) 3+ NEG Urine Ketones TRACE NEG Urine Occult Blood 2+ NEG Urine Nitrite NEG NEG Urine Bilirubin NEG NEG Urine Urobilinogen NEG NEG Urine Leukocyte Esterase NEG NEG Urine WBC (Auto) 1-5 0-5 /hpf Urine RBC (Auto) 0-4 0-4 /hpf Urine Hyaline Casts (Auto) 1-5 0-5 /lpf Urine Epithelial Cells (Auto) >30 0-5 /lpf Urine Bacteria (Auto) NEG NEG Urine Pathogenic Casts 0-3 GRANULAR CASTS 0 /lpf Urine Yeast (Auto) NONE PRSENT Urine Opiates Screen NEG NEG Urine Methadone, Qualitative NEG NEG Urine Barbiturates NEG NEG Urine Phencyclidine (PCP) Level NEG NEG Ur Amphetamine/Methamphetamine NEG NEG MDMA (Ecstasy) Screen NEG NEG Urine Benzodiazepines Screen NEG NEG Urine Cocaine Metabolite NEG NEG Urine Marijuana (THC) NEG NEG Test 03/24/18 06:40 03/24/18 07:35 Range/Units White Blood Count 12.76 4.8-10.8 K/uL Red Blood Count 3.79 4.7-6.1 M/uL Hemoglobin 11.2 14.0-18.0 g/dL Hematocrit 32.4 42-52 % Mean Corpuscular Volume 85.5 80-100 fL Mean Corpuscular Hemoglobin 29.6 25-34 pg Mean Corpuscular Hemoglobin Concent 34.6 32-36 g/dl Platelet Count 230 130-400 K/uL Mean Platelet Volume 9.0 7.4-10.4 fL Neutrophils (%) (Auto) 79.8 % Lymphocytes (%) (Auto) 7.7 % Monocytes (%) (Auto) 11.9 % Eosinophils (%) (Auto) 0.2 % Basophils (%) (Auto) 0.2 % Neutrophils # (Auto) 10.19 1.4-6.5 K/uL Lymphocytes # (Auto) 0.98 1.2-3.4 K/uL Monocytes # (Auto) 1.52 0.11-0.59 K/uL Eosinophils # (Auto) 0.03 0-0.5 K/uL Basophils # (Auto) 0.02 0-0.2 K/uL RDW Standard Deviation 43.1 36.4-46.3 fL RDW Coefficient of Variation 13.7 11.5-14.5 % Immature Granulocyte % (Auto) 0.2 % Immature Granulocyte # (Auto) 0.02 0.00-0.02 K/uL Sodium Level 142 136-145 mmol/L Potassium Level 3.5 3.5-5.1 mmol/L Chloride Level 111 98-107 mmol/L Carbon Dioxide Level 24 21-32 mmol/L Anion Gap 7.0 3-11 mmol/L Blood Urea Nitrogen 53 7-18 mg/dl Creatinine 2.85 0.60-1.40 mg/dl Est Creatinine Clear Calc Drug Dose 32.6 ml/min Estimated GFR () 32.2 Estimated GFR (Non- 27.8 BUN/Creatinine Ratio 18.5 10-20 Random Glucose 97 70-99 mg/dl Calcium Level 8.2 8.5-10.1 mg/dl Phosphorus Level 2.8 2.5-4.9 mg/dl Magnesium Level 2.4 1.8-2.4 mg/dl Bedside Glucose 91 70-99 mg/dl Microbiology Results 03/24/18 Urine Culture, Received Pending
[2018-03-24] MEDS: METOCLOPRAMIDE HCL INJ 5 MG/ML 2 ML VIAL IV. SCH ×2 (11:58→18:14)
[2018-03-24] MEDS: FAMOTIDINE IV SCH (11:58)
[2018-03-24 12:15] LABS: HEMOGLOBIN A1C 7.1 % (4.5-5.6)
[2018-03-24] MEDS: CLONIDINE HCL 0.1 MG TAB PO PRN (15:48)
[2018-03-24] MEDS ORDERED: AMLODIPINE BESYLATE 5 MG TAB PO SCH (21:00)
[2018-03-24] MEDS: AMLODIPINE BESYLATE 5 MG TAB PO SCH (21:20)
[2018-03-25] MEDS: METOCLOPRAMIDE HCL INJ 5 MG/ML 2 ML VIAL IV. SCH ×5 (00:10→23:59)
[2018-03-25] MEDS: FAMOTIDINE IV SCH ×2 (00:11→11:22)
[2018-03-25 02:46] VITALS: BP 149/84; PULSE 86; TEMP 36.8; O2SAT 96
[2018-03-25] MEDS: SODIUM CHLORIDE 0.9% 1000ML 1,000 ML IV SCH ×3 (04:43→15:59)
[2018-03-25] MEDS: HEPARIN SOD 5000 UNIT/0.5 ML CARP SQ SCH ×3 (06:41→21:19)
[2018-03-25] MEDS: NovoLOG INSULIN PUMP SCH ×4 (07:00→21:00)
[2018-03-25 07:06] VITALS: BP 155/84; PULSE 81; TEMP 37.7; O2SAT 97
[2018-03-25 07:34] LABS: HEMATOCRIT 29.4 % (42-52); MEAN CELL VOLUME 87.2 fL (80-100); MEAN CORPUSCULAR HEMOGLOBIN 29.7 pg (25-34); MEAN PLATELET VOLUME 8.9 fL (7.4-10.4); PLATELET COUNT 159 K/uL (130-400); RED CELL DISTRIBUTION WIDTH CV 13.4 % (11.5-14.5); RED CELL DISTRIBUTION WIDTH SD 43.1 fL (36.4-46.3); WHITE BLOOD COUNT 7.61 K/uL (4.8-10.8)
[2018-03-25 08:07] LABS: CREATININE 2.29 mg/dl (0.60-1.40); POTASSIUM 3.4 mmol/L (3.5-5.1)
[2018-03-25] MEDS: CHOLECALCIFEROL 1000 INTER.UNIT TAB PO SCH (09:24)
[2018-03-25] MEDS ORDERED: CHLORASEPTIC 1.4% SOLN 180 ML BTL MT PRN (09:45)
[2018-03-25] MEDS: CARBOHYDRATES FOR HYPOGLYCEMIA PO PRN ×2 (11:17→11:33)
[2018-03-25] MEDS ORDERED: POTASSIUM CHLORIDE 20 MEQ/15 ML UDC PO ONE (12:00)
[2018-03-25 12:04] VITALS: BP 170/91; PULSE 92; TEMP 36.8; O2SAT 96
--- NOTE | 2018-03-25 12:04 | Progress Note ---
Internal Med Progress Note Date of Service: Mar 25, 2018. Provider Documentation: SUBJECTIVE: Seen and examined at bedside Patient states having epigastric abdominal pain and pain with swallowing Nausea better BP better Also reports cough with clear expectoration No other complaints OBJECTIVE: Vital Signs-as noted below Physical Exam: General Appearance:Moderately built and nourished, no apparent distress Head: normocephalic, Atraumatic Eyes: normal inspection, EOMI, PERRL Neck: supple, Trachea midline Respiratory/Chest: Normal breath sounds, CTA Cardiovascular: S1, S2, +Tachycardia, No murmur Abdomen/GI:Soft, mild generalized tender, Bowel sounds present Extremities/Musculoskelatal:normal inspection, no edema, Right foot in brace Neurologic/Psych:AAOX3, grossly no focal neurological deficits Skin: normal color, warm Lab data as noted below. ASSESSMENT & PLAN: Recent Syncope and collapse Occurred on March 21 could be secondary to hypoglycemic episode tele monitoring: No issues so far DM Type 1 On Insulin pump at home monitor for hypoglycemic episodes Hb A1C: 7.1 Pharmacist consulted for diabetes management No signs of DKA Possible Bronchitis CXR: no active disease Rapid Strep: Group B strep Leukocytosis trending down Has low grade fever Start Augmentin Epigastric Abdominal pain Esophageal Wall thickening, Odynophagia Nausea and vomiting ?? Gastroparesis CT abd:No evidence of bowel obstruction. Mild distal esophageal wall thickening. Tox Screen: Negative IV fluids Continue Reglan, Pepcid Consulted GI eval Acute renal failure on CKD III Likely prerenal Continue IV fluids monitor PRP Cr:3.92>>>2.85>>2.29 Hold lisinopril Consider Nephrology eval if no improvement Hypertension Headache could be 2/2 elevated BP Increase amlodipine to 10mg daily Hold lisinopril 2/2 JUANA monitor Right Charcot foot: Patient prefers no X ray to R/O fracture Follows with Director [facility]er Services as outpatient He doesn't want any intervention of right ankle DVT Px: SQ heparin Code Status Full Code Disposition: Expect to discharge home when stable Vital Signs: Date Time Temp Pulse Resp B/P (MAP) Pulse Ox O2 Delivery O2 Flow Rate FiO2 03/25/18 15:34 37.2 82 20 186/100 (128) 97 Room Air 186/104 (131) 03/25/18 12:04 36.8 92 18 170/91 (117) 96 Room Air 03/25/18 08:00 Room Air 03/25/18 07:06 37.7 81 16 155/84 (107) 97 Room Air 03/25/18 02:46 36.8 86 16 149/84 (105) 96 Room Air 03/24/18 23:13 38.1 83 20 132/72 (92) 98 Room Air 03/24/18 20:00 Room Air 03/24/18 19:25 37.0 67 16 135/80 (98) 97 Room Air Lab Results: Results Past 24 Hours Test 03/24/18 20:41 03/25/18 07:11 03/25/18 07:22 03/25/18 11:14 Range/Units Bedside Glucose 88 98 62 70-99 mg/dl White Blood Count 7.61 4.8-10.8 K/uL Red Blood Count 3.37 4.7-6.1 M/uL Hemoglobin 10.0 14.0-18.0 g/dL Hematocrit 29.4 42-52 % Mean Corpuscular Volume 87.2 80-100 fL Mean Corpuscular Hemoglobin 29.7 25-34 pg Mean Corpuscular Hemoglobin Concent 34.0 32-36 g/dl RDW Standard Deviation 43.1 36.4-46.3 fL RDW Coefficient of Variation 13.4 11.5-14.5 % Platelet Count 159 130-400 K/uL Mean Platelet Volume 8.9 7.4-10.4 fL Sodium Level 141 136-145 mmol/L Potassium Level 3.4 3.5-5.1 mmol/L Chloride Level 108 98-107 mmol/L Carbon Dioxide Level 28 21-32 mmol/L Anion Gap 5.0 3-11 mmol/L Blood Urea Nitrogen 29 7-18 mg/dl Creatinine 2.29 0.60-1.40 mg/dl Est Creatinine Clear Calc Drug Dose 35.6 ml/min Estimated GFR () 41.9 Estimated GFR (Non- 36.2 BUN/Creatinine Ratio 12.6 10-20 Random Glucose 87 70-99 mg/dl Calcium Level 8.0 8.5-10.1 mg/dl Magnesium Level 2.3 1.8-2.4 mg/dl Test 03/25/18 11:15 03/25/18 11:30 03/25/18 11:46 03/25/18 16:29 Range/Units Bedside Glucose 67 61 88 181 70-99 mg/dl
--- NOTE | 2018-03-25 12:51 | Gastrointestinal Consultation ---
Gastrointestinal Consultation Date of Consultation: Mar 25, 2018 Attending Physician: Zelda Consulting Physician: Abdulaziz Reason for Consultation: Abdominal pain, Odynophagia History of Present Illness Patient is a 32 year old male patient of Dr. Singh with a hx of DM1, CKD-3 who presented to the ED yesterday for nausea/vomiting, fatigue. GI is consulted for abdominal pain, odynophagia. He had also been in the ED on Wednesday 03/21 for a syncopal episode and was beginning to experience the vomiting at that time. Since Wednesday, he has had vomiting minutes after every time that he ate or drank anything. He believes that there was a bit of blood tinged mucous in the initial emesis but didn't see blood after that. He hasn't had a BM since last week but also doesn't feel constipated. In the past 24 hrs, the vomiting has stopped. The nausea persists. He does not do marijuana or other drugs. He doesn't any alcohol. He is on zofran here which is not helpful for the nausea. Current symptoms are: burning and pressure in the lower retrosternal area. He also has a feeling of dysphagia explained as having to swallow twice to get the fluids to go down. He also had two episodes of gagging and coughing while trying to swallow. Past Medical/Surgical History Medical Problems: (1) Acute kidney injury Status: Acute (2) Acute renal failure Status: Acute (3) Anemia Status: Acute (4) Cellulitis Status: Acute (5) Cellulitis Status: Acute (6) Cellulitis of right lower extremity Status: Acute (7) Chronic renal disease Status: Acute (8) Chronic wound of extremity Status: Acute (9) CKD (chronic kidney disease) Status: Acute (10) Epigastric abdominal pain Status: Acute (11) Headache Status: Acute (12) Headache Status: Acute (13) Hyperglycemia Status: Acute (14) Hyperkalemia Status: Acute (15) Leg pain Status: Acute (16) Leg swelling Status: Acute (17) Nausea & vomiting Status: Acute (18) Vomiting Status: Acute Past Medical History: 1. Anemia 2. DM-2 3. CKD-3 4. Headaches 5. HTN 6. Hypertriglyceridemia Past Surgical History: 1. Eye surgery No prior endoscopies Family History Diabetes mellitus Hypertension Social History Smoking Status: Never Smoker Alcohol Use: none Drug Use: none Marital Status: single Housing Status: lives with family Occupation Status: employed Allergies Coded Allergies: No Known Allergies (Verified , 03/23/18) Current Medications Home Meds and Scripts Medications Dose Route/Sig Max Daily Dose Days Date Category Dose Instructions D 5000 (Cholecalciferol) 5,000 Unit Cap 1 Cap PO DAILY 03/23/18 Reported novoLOG INSULIN PUMP (Insulin Aspart) 1 Ea Inj 1 Ea N/A UD 03/21/18 Reported Basal rates: 0.75 units/hr (midnight - 6 am) 0.925 units/hr (6 am - midnight) Bolus settings: CF 40 mg/dL/unit CR 1 unit per 11 gm CHO Amlodipine Besylate 5 Mg Tab 5 Mg PO HS 03/21/18 Reported Zestril (Lisinopril) 2.5 Mg Tab 2.5 Mg PO QAM 03/21/18 Reported Review of Systems Constitutional: No fever, No chills, No sweats, No weight loss, No weakness Eyes: No eye pain, No redness ENT: No sore throat, No trouble swallowing, No pain on swallowing Respiratory: No cough, No wheezing, No shortness of breath, No dyspnea on exertion Cardiac: No chest pain, No edema, No palpitations Abdomen: + see HPI, + nausea, + vomiting, + dysphagia, + odynophagia, No pain, No diarrhea, No constipation, No GI bleeding Neuro: No memory loss, No weakness, No numbness/tingling, No vertigo, No balance problems Psych: No depression symptoms, No anxiety, No insomnia Heme: No abnormal bleeding/bruising, No night sweats Endo: No excessive thirst, No excessive urination Skin: No rash, No itch, No new/changing skin lesions, No jaundice Physical Exam Date Time Temp Pulse Resp B/P (MAP) Pulse Ox O2 Delivery O2 Flow Rate FiO2 03/25/18 12:04 36.8 92 18 170/91 (117) 96 Room Air 03/25/18 07:06 37.7 81 16 155/84 (107) 97 Room Air 03/25/18 02:46 36.8 86 16 149/84 (105) 96 Room Air 03/24/18 23:13 38.1 83 20 132/72 (92) 98 Room Air 03/24/18 20:00 Room Air 03/24/18 19:25 37.0 67 16 135/80 (98) 97 Room Air 03/24/18 15:24 36.9 85 18 179/92 (121) 97 Room Air General Appearance: no apparent distress Eyes: normal inspection, EOMI ENT: + pertinent finding (raspy/hoarse voice) Neck: supple, no adenopathy, thyroid normal Respiratory/Chest: chest non-tender, lungs clear, normal breath sounds, no accessory muscle use Cardiovascular: regular rate, rhythm, no JVD, no murmur Abdomen: normal bowel sounds, non tender, soft, no organomegaly Extremities: normal inspection, no pedal edema, normal capillary refill Neurologic/Psych: alert, normal mood/affect, oriented x 3 Skin: normal color, no jaundice, warm/dry, no rash Laboratory Results Last 24 Hours Test 03/24/18 16:34 03/24/18 20:41 03/25/18 07:11 03/25/18 07:22 Bedside Glucose 82 mg/dl 88 mg/dl 98 mg/dl White Blood Count 7.61 K/uL Red Blood Count 3.37 M/uL Hemoglobin 10.0 g/dL Hematocrit 29.4 % Mean Corpuscular Volume 87.2 fL Mean Corpuscular Hemoglobin 29.7 pg Mean Corpuscular Hemoglobin Concent 34.0 g/dl RDW Standard Deviation 43.1 fL RDW Coefficient of Variation 13.4 % Platelet Count 159 K/uL Mean Platelet Volume 8.9 fL Sodium Level 141 mmol/L Potassium Level 3.4 mmol/L Chloride Level 108 mmol/L Carbon Dioxide Level 28 mmol/L Anion Gap 5.0 mmol/L Blood Urea Nitrogen 29 mg/dl Creatinine 2.29 mg/dl Est Creatinine Clear Calc Drug Dose 35.6 ml/min Estimated GFR () 41.9 Estimated GFR (Non- 36.2 BUN/Creatinine Ratio 12.6 Random Glucose 87 mg/dl Calcium Level 8.0 mg/dl Magnesium Level 2.3 mg/dl Test 03/25/18 11:14 03/25/18 11:15 03/25/18 11:30 03/25/18 11:46 Bedside Glucose 62 mg/dl 67 mg/dl 61 mg/dl 88 mg/dl Non-contrast CT abd/pelvis: 1. Study limited due to the lack of intravenous and oral contrast. 2. No renal, ureteral, or bladder calculi identified 3. No evidence of bowel obstruction. No evidence of free air 4. Stable 11 mm sclerotic lesion within the left iliac bone 5. Mild distal esophageal wall thickening. 6. Borderline rectal wall thickening. Impression Patient is a 32 year old male diabetic with nausea/vomiting, CT with distal esophageal thickening. Esophageal wall thickening on CT is most likely a result of his vomiting. However, differentials considered include diabetic gastroparesis, reflux esophagitis, candidiasis. Plan 1. Recommend EGD, NM GES. These could be done as an OP. If remains as an IP, then he could get one of these tests on Wednesday, the other on Wednesday, but they can't be done the same day (has to be NPO and sedated for EGD, can't be sedated on a day that he undergoes a NM GES because this would effect gastric motility) . 2. Stop the Famotidine drip. 3. Protonix 40mg BID po. 4. Sucralfate 1gram achs. ATTESTATION: I have performed a history and physical examination of this patient and reviewed the electronic record. Specifically on physical examination there is no significant epigastric tenderness. I have discussed the case with CHRIS Rivas. The above note reflects my findings, conclusions, and recommendations. Samuel Cintron MD
[2018-03-25 14:04] VITALS: Ht 177.8 cm; Wt 72.8 kg
--- NOTE | 2018-03-25 14:49 | Pharmacy Progress Note ---
Pharmacy Glycemic Short Note 2 Date of Service Mar 25, 2018. OUTPATIENT ANTIDIABETIC REGIMEN: * NovoLog via [employer] insulin pump. * Basal settings: 7126-7203 0.75units/hr and 1943-7845 0.925 units/hr (21.15units) * Bolus Settings: 1 unit/11 grams carb plus SF:40 with BG goal 110-150. Pt works with [facility] for BG control A1c = 7.1% on 03/24/18 Item Value Date Time Bedside Glucose 91 mg/dl 03/24/18 0735 Bedside Glucose 97 mg/dl 03/24/18 1115 Bedside Glucose 82 mg/dl 03/24/18 1634 Bedside Glucose 88 mg/dl 03/24/18 2041 Bedside Glucose 98 mg/dl 03/25/18 0711 Bedside Glucose 62 mg/dl *L 03/25/18 1114 Bedside Glucose 67 mg/dl *L 03/25/18 1115 Bedside Glucose 61 mg/dl *L 03/25/18 1130 Bedside Glucose 88 mg/dl 03/25/18 1146 ASSESSMENT: * 32yo T1DM male maintained on NovoLog SQ insulin pump. Pump is being continued for admission per patient request. * Pt with LOW BSG today at lunch time secondary to decreased PO intake N/V. * Pt stopped basal on his pump today at 11am for low and resumed it at noon after low BSG treated/resolved. * Pt will need to set a decreased temporary basal rate to prevent further hypoglycemia --> discussed with DM educator. * Next site change tomorrow. * Glycemic [facility] on all weekend 7-3:30pm to help with pump issues/questions PLAN FOR INPATIENT GLYCEMIC CONTROL: * Pt is to manage BSGs with insulin pump per outpatient settings. * If at any time the patients condition evidences that he/she is not able to manage the insulin pump (i.e. frequent hypo/hyperglycemia) Pharmacy will assume glycemic control by discontinuing the pump & managing with SQ basal bolus insulin regimen for the interim.
[2018-03-25 15:34] VITALS: BP_SYST 186; BP_DIAS 100; BP_DIAS 104; PULSE 82; TEMP 37.2; O2SAT 97
[2018-03-25] MEDS: CLONIDINE HCL 0.1 MG TAB PO PRN (15:59)
[2018-03-25 16:00] VITALS: O2SAT 97
[2018-03-25] MEDS: AMOXICILLIN/CLAVULANATE TAB 500 MG TAB PO SCH (17:35)
[2018-03-25] MEDS: SUCRALFATE 1 GM/10 ML UDC PO SCH ×2 (17:35→21:10)
[2018-03-25 19:17] VITALS: BP 147/80; PULSE 78; TEMP 37.3; O2SAT 97
[2018-03-25] MEDS: AMLODIPINE BESYLATE 5 MG TAB PO SCH (21:10)
[2018-03-25] MEDS: PANTOprazole SOD 40 MG TAB PO SCH (21:11)
[2018-03-26] VITALS (7 sets, daily range): BP systolic 148–178; BP diastolic 83–97; PULSE 72–90; TEMP 36.9–37.5; O2SAT 96–97
[2018-03-26] MEDS: METOCLOPRAMIDE HCL INJ 5 MG/ML 2 ML VIAL IV. SCH (06:10)
[2018-03-26] MEDS: HEPARIN SOD 5000 UNIT/0.5 ML CARP SQ SCH ×3 (06:11→21:10)
[2018-03-26 07:12] LABS: HEMATOCRIT 27.6 % (42-52); HEMOGLOBIN 9.6 g/dL (14.0-18.0); MEAN CELL VOLUME 86.3 fL (80-100); MEAN CORPUSCULAR HGB CONC 34.8 g/dl (32-36); MEAN PLATELET VOLUME 9.7 fL (7.4-10.4); PLATELET COUNT 151 K/uL (130-400); RED CELL DISTRIBUTION WIDTH SD 41.7 fL (36.4-46.3)
[2018-03-26] MEDS: CARBOHYDRATES FOR HYPOGLYCEMIA PO PRN (07:40)
[2018-03-26] MEDS: PANTOprazole SOD 40 MG TAB PO SCH ×2 (07:50→21:10)
[2018-03-26] MEDS: SUCRALFATE 1 GM/10 ML UDC PO SCH ×4 (07:50→21:10)
[2018-03-26] MEDS: CHOLECALCIFEROL 1000 INTER.UNIT TAB PO SCH (07:51)
[2018-03-26 07:52] LABS: CALCIUM 7.9 mg/dl (8.5-10.1); POTASSIUM 3.6 mmol/L (3.5-5.1)
[2018-03-26] MEDS: AMOXICILLIN/CLAVULANATE TAB 500 MG TAB PO SCH ×2 (07:52→17:04)
[2018-03-26] MEDS: NovoLOG INSULIN PUMP SCH ×4 (07:52→21:10)
--- NOTE | 2018-03-26 08:49 | Pharmacy Progress Note ---
Pharmacy Glycemic Short Note 2 Date of Service Mar 26, 2018. OUTPATIENT ANTIDIABETIC REGIMEN: * NovoLog via Medtronic insulin pump. * Basal settings: 3171-2799 0.75units/hr and 8967-4172 0.925 units/hr (21.15units) * Bolus Settings: 1 unit/11 grams carb plus SF:40 with BG goal 110-150. Pt works with [facility] for BG control A1c = 7.1% on 03/24/18 Item Value Date Time Bedside Glucose 91 mg/dl 03/24/18 0735 Bedside Glucose 97 mg/dl 03/24/18 1115 Bedside Glucose 82 mg/dl 03/24/18 1634 Bedside Glucose 88 mg/dl 03/24/18 2041 Item Value Date Time Bedside Glucose 98 mg/dl 03/25/18 0711 Bedside Glucose 62 mg/dl *L 03/25/18 1114 Bedside Glucose 67 mg/dl *L 03/25/18 1115 Bedside Glucose 61 mg/dl *L 03/25/18 1130 Bedside Glucose 88 mg/dl 03/25/18 1146 Bedside Glucose 181 mg/dl H 03/25/18 1629 Bedside Glucose 103 mg/dl H 03/25/18 2048 Bedside Glucose 41 mg/dl *L 03/26/18 0732 Bedside Glucose 45 mg/dl *L 03/26/18 0757 Bedside Glucose 86 mg/dl 03/26/18 0826 ASSESSMENT: * 32yo T1DM male maintained on NovoLog SQ insulin pump. Pump is being continued for admission per patient request. * Pt with LOW BSG yesterday and today secondary to decreased PO intake N/V. * This morning BSG was 41 mg/dl. Pt drank x2 OJ but BSG only ricky to 45 mg/dl. Pt denied any additional CHO for hypo. He just wanted his breakfast tray. Instructed nursing to continue checking BSG Q15 min until BSG >80 mg/dl. * Pt stopped basal on his pump when hypoglycemia occurs. He will resume pump after breakfsat. * Pt will need to set a decreased temporary basal rate to prevent further hypoglycemia --> discussed with DM educator, nursing, and patient. * Next site change today * Glycemic RPH on all weekend 7-3:30pm to help with pump issues/questions PLAN FOR INPATIENT GLYCEMIC CONTROL: * Pt is to manage BSGs with insulin pump per outpatient settings. * Pt needs to set a temporary basal while decrease PO intake. * Will discuss with patient stopping pump in house and using SQ basal bolus d/ t frequent hypoglycemia If at any time the patients condition evidences that he/she is not able to manage the insulin pump (i.e. frequent hypo/hyperglycemia) Pharmacy will assume glycemic control by discontinuing the pump & managing with SQ basal bolus insulin regimen for the interim.
[2018-03-26] MEDS: SODIUM CHLORIDE 0.9% 1000ML 1,000 ML IV SCH ×2 (10:29→22:21)
[2018-03-26] MEDS ORDERED: CARVEDILOL 3.125 MG TAB PO ONE (11:30)
--- NOTE | 2018-03-26 11:46 | Progress Note ---
Internal Med Progress Note Date of Service: Mar 26, 2018. Provider Documentation: SUBJECTIVE: Seen and examined at bedside States feeling much better today Headache, Abdominal pain resolved cough improving Still has hoarseness Hypoglycemic earlier today No other complaints OBJECTIVE: Vital Signs-as noted below Physical Exam: General Appearance:Moderately built and nourished, no apparent distress Head: normocephalic, Atraumatic Eyes: normal inspection, EOMI, PERRL Neck: supple, Trachea midline Respiratory/Chest: Normal breath sounds, CTA Cardiovascular: S1, S2, +Tachycardia, No murmur Abdomen/GI:Soft, mild generalized tender, Bowel sounds present Extremities/Musculoskelatal:normal inspection, no edema, Right foot in brace Neurologic/Psych:AAOX3, grossly no focal neurological deficits Skin: normal color, warm Lab data as noted below. ASSESSMENT & PLAN: Recent Syncope and collapse Occurred on March 21 could be secondary to hypoglycemic episodes No issues on Tele DM Type 1 On Insulin pump at home monitor for hypoglycemic episodes Hb A1C: 7.1 Pharmacist consulted for diabetes management No signs of DKA Possible Bronchitis CXR: no active disease Rapid Strep: Group B strep Leukocytosis normalized Afebrile Continue Augmentin Day # 2 Epigastric Abdominal pain: Resolved Esophageal Wall thickening likely 2/2 vomiting DD: Esophagitis, Gastroparesis CT abd:No evidence of bowel obstruction. Mild distal esophageal wall thickening. Tox Screen: Negative Continue Protonix, Sucralfate May need EGD/GES:::Inpatient Vs Outpatient Appreciate GI Input Will make him NPO tomorrow night for possible EGD on Wednesday if continues to require hospitalization Acute renal failure on CKD III Likely prerenal Continue IV fluids monitor PRP Cr:3.92>>>2.85>>2.29>>2.0 Hold lisinopril Consider Nephrology eval if no improvement Hypertension Continue amlodipine Add Coreg for better BP control Hold lisinopril 2/2 JUANA monitor Right Charcot foot: Patient prefers no X ray to R/O fracture Follows with [facility] [employer] as outpatient He doesn't want any intervention of right ankle DVT Px: SQ heparin Code Status Full Code Disposition: Expect to discharge home when stable Vital Signs: Date Time Temp Pulse Resp B/P (MAP) Pulse Ox O2 Delivery O2 Flow Rate FiO2 03/26/18 08:00 Room Air 03/26/18 07:35 37.1 90 20 178/97 (124) 96 Room Air 03/26/18 03:31 36.9 80 18 156/83 (107) 96 03/26/18 00:42 37.1 81 18 155/84 (107) 97 Room Air 03/26/18 00:02 Room Air 03/25/18 19:17 37.3 78 16 147/80 (102) 97 Room Air 03/25/18 16:00 97 Room Air 03/25/18 15:34 37.2 82 20 186/100 (128) 97 Room Air 186/104 (131) 03/25/18 12:04 36.8 92 18 170/91 (117) 96 Room Air Lab Results: Results Past 24 Hours Test 03/25/18 11:46 03/25/18 16:29 03/25/18 20:48 03/26/18 06:45 Range/Units Bedside Glucose 88 181 103 70-99 mg/dl White Blood Count 5.90 4.8-10.8 K/uL Red Blood Count 3.20 4.7-6.1 M/uL Hemoglobin 9.6 14.0-18.0 g/dL Hematocrit 27.6 42-52 % Mean Corpuscular Volume 86.3 80-100 fL Mean Corpuscular Hemoglobin 30.0 25-34 pg Mean Corpuscular Hemoglobin Concent 34.8 32-36 g/dl RDW Standard Deviation 41.7 36.4-46.3 fL RDW Coefficient of Variation 13.0 11.5-14.5 % Platelet Count 151 130-400 K/uL Mean Platelet Volume 9.7 7.4-10.4 fL Sodium Level 140 136-145 mmol/L Potassium Level 3.6 3.5-5.1 mmol/L Chloride Level 107 98-107 mmol/L Carbon Dioxide Level 27 21-32 mmol/L Anion Gap 5.0 3-11 mmol/L Blood Urea Nitrogen 21 7-18 mg/dl Creatinine 2.00 0.60-1.40 mg/dl Est Creatinine Clear Calc Drug Dose 39.3 ml/min Estimated GFR () 49.4 Estimated GFR (Non- 42.6 BUN/Creatinine Ratio 10.7 10-20 Random Glucose 41 70-99 mg/dl Calcium Level 7.9 8.5-10.1 mg/dl Magnesium Level 2.2 1.8-2.4 mg/dl Test 03/26/18 07:32 03/26/18 07:57 03/26/18 08:26 Range/Units Bedside Glucose 41 45 86 70-99 mg/dl
[2018-03-26] MEDS: CLONIDINE HCL 0.1 MG TAB PO PRN (15:25)
[2018-03-26] MEDS: AMLODIPINE BESYLATE 5 MG TAB PO SCH (21:10)
[2018-03-26] MEDS: CARVEDILOL 3.125 MG TAB PO SCH (21:14)
[2018-03-27] MEDS: HEPARIN SOD 5000 UNIT/0.5 ML CARP SQ SCH ×3 (05:58→20:54)
[2018-03-27] MEDS: CARBOHYDRATES FOR HYPOGLYCEMIA PO PRN ×2 (06:15→06:31)
[2018-03-27 07:07] VITALS: BP 157/91; PULSE 76; TEMP 36.9; O2SAT 95
[2018-03-27 07:27] LABS: CALCIUM 8.2 mg/dl (8.5-10.1); CREATININE 2.04 mg/dl (0.60-1.40)
[2018-03-27] MEDS: AMOXICILLIN 500 MG CAP PO SCH ×2 (08:35→17:11)
[2018-03-27] MEDS: PANTOprazole SOD 40 MG TAB PO SCH ×2 (08:36→20:53)
[2018-03-27] MEDS: CHOLECALCIFEROL 1000 INTER.UNIT TAB PO SCH (08:36)
[2018-03-27] MEDS: SUCRALFATE 1 GM/10 ML UDC PO SCH ×4 (08:37→20:52)
[2018-03-27] MEDS: NovoLOG INSULIN PUMP SCH ×4 (08:37→20:52)
[2018-03-27] MEDS: CARVEDILOL 3.125 MG TAB PO SCH ×2 (09:22→20:53)
[2018-03-27] MEDS: SODIUM CHLORIDE 0.9% 1000ML 1,000 ML IV SCH ×2 (11:55→23:36)
--- NOTE | 2018-03-27 11:58 | Progress Note ---
Internal Med Progress Note Date of Service: Mar 27, 2018. Provider Documentation: SUBJECTIVE: Seen and examined at bedside Doing well today Headache, Abdominal pain, nausea resolved hoarseness improving Hypoglycemic overnight No other complaints OBJECTIVE: Vital Signs-as noted below Physical Exam: General Appearance:Moderately built and nourished, no apparent distress Head: normocephalic, Atraumatic Eyes: normal inspection, EOMI, PERRL Neck: supple, Trachea midline Respiratory/Chest: Normal breath sounds, CTA Cardiovascular: S1, S2, No murmur Abdomen/GI:Soft, mild generalized tender, Bowel sounds present Extremities/Musculoskelatal:normal inspection, no edema, Right foot in brace Neurologic/Psych:AAOX3, grossly no focal neurological deficits Skin: normal color, warm Lab data as noted below. ASSESSMENT & PLAN: Recent Syncope and collapse Occurred on March 21 could be secondary to hypoglycemic episodes No issues on Tele DM Type 1 On Insulin pump at home monitor for hypoglycemic episodes Hb A1C: 7.1 Pharmacist consulted for diabetes management No signs of DKA Possible Bronchitis CXR: no active disease Rapid Strep: Group B strep Leukocytosis normalized Afebrile Continue Amoxicillin Day # 3 Epigastric Abdominal pain: Resolved Esophageal Wall thickening likely 2/2 vomiting DD: Esophagitis, Gastroparesis CT abd:No evidence of bowel obstruction. Mild distal esophageal wall thickening. 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 He doesn't want any intervention of right ankle DVT Px: SQ heparin Code Status Full Code Disposition: Expect to discharge home when stable Vital Signs: Date Time Temp Pulse Resp B/P (MAP) Pulse Ox O2 Delivery O2 Flow Rate FiO2 03/27/18 08:00 Room Air 03/27/18 07:07 36.9 76 18 157/91 (113) 95 Room Air 03/26/18 23:59 Room Air 8/4/18 23:37 37.5 75 18 149/87 (107) 96 Room Air 03/26/18 16:00 Room Air 03/26/18 15:03 37.1 72 18 173/92 (119) 96 Room Air 03/26/18 13:02 37.1 90 20 96 03/26/18 13:00 37.1 76 16 148/94 (112) 97 Room Air Lab Results: Results Past 24 Hours Test 03/26/18 16:19 03/26/18 20:27 03/27/18 06:03 03/27/18 06:26 Range/Units Bedside Glucose 73 118 33 43 70-99 mg/dl Test 03/27/18 06:39 03/27/18 06:45 03/27/18 07:07 Range/Units Sodium Level 141 136-145 mmol/L Potassium Level 4.0 3.5-5.1 mmol/L Chloride Level 108 98-107 mmol/L Carbon Dioxide Level 28 21-32 mmol/L Anion Gap 5.0 3-11 mmol/L Blood Urea Nitrogen 18 7-18 mg/dl Creatinine 2.04 0.60-1.40 mg/dl Est Creatinine Clear Calc Drug Dose 44.1 ml/min Estimated GFR () 48.2 Estimated GFR (Non- 41.6 BUN/Creatinine Ratio 8.7 10-20 Random Glucose 60 70-99 mg/dl Calcium Level 8.2 8.5-10.1 mg/dl Magnesium Level 2.2 1.8-2.4 mg/dl Bedside Glucose 66 108 70-99 mg/dl
--- NOTE | 2018-03-27 12:38 | Pharmacy Progress Note ---
Pharmacy Glycemic Short Note 2 Date of Service Mar 27, 2018. OUTPATIENT ANTIDIABETIC REGIMEN: * NovoLog via Medtronic insulin pump. * Basal settings: 4985-6571 0.75units/hr and 3186-2381 0.925 units/hr (21.15units) * Bolus Settings: 1 unit/11 grams carb plus SF:40 with BG goal 110-150. Pt works with [facility] for BG control A1c = 7.1% on 03/24/18 Item Value Date Time Bedside Glucose 91 mg/dl 03/24/18 0735 Bedside Glucose 97 mg/dl 03/24/18 1115 Bedside Glucose 82 mg/dl 03/24/18 1634 Bedside Glucose 88 mg/dl 03/24/18 2041 Item Value Date Time Bedside Glucose 98 mg/dl 03/25/18 0711 Bedside Glucose 62 mg/dl *L 03/25/18 1114 Bedside Glucose 67 mg/dl *L 03/25/18 1115 Bedside Glucose 61 mg/dl *L 03/25/18 1130 Bedside Glucose 88 mg/dl 03/25/18 1146 Bedside Glucose 181 mg/dl H 03/25/18 1629 Bedside Glucose 103 mg/dl H 03/25/18 2048 Bedside Glucose 41 mg/dl *L 03/26/18 0732 Bedside Glucose 45 mg/dl *L 03/26/18 0757 Bedside Glucose 86 mg/dl 03/26/18 0826 Item Value Date Time Bedside Glucose 118 mg/dl H 03/26/18 1131 Bedside Glucose 73 mg/dl 03/26/18 1619 Bedside Glucose 118 mg/dl H 03/26/18 2027 Bedside Glucose 33 mg/dl *L 03/27/18 0603 Bedside Glucose 43 mg/dl *L 03/27/18 0626 Bedside Glucose 66 mg/dl *L 03/27/18 0645 Bedside Glucose 108 mg/dl H 03/27/18 0707 ASSESSMENT: * 32yo T1DM male maintained on NovoLog SQ insulin pump. Pump is being continued for admission per patient request. * Pt with repeated hypoglycemia in the morning secondary to decreased PO intake/ clear liquid diet. * Pt reports that he suspends his pump when he has a low * Pt has been instructed to set a temporary basal overnight but I am not sure he is actually doing this * I met with the patient and discussed lows, pump vs basal bolus, etc and how to prevent hypoglycemia tomorrow morning prior to EGD. Pt will be NPO after midnight for EGD 03/28/18 AM. Pt adamantly refused to give up his pump and use SQ injections. Instead, Pt has agreed to set a 50% temporary basal rate starting at 1600 (his choice in time). This should be sufficient to prevent low tomorrow AM. * Insulin pump site is due to be changed tonight. Pharmacy does not stock any pump supplies. We do stock insulin needed to refill pump. Patient says that he does not have a friend/family member that could bring in pump supplies for him. He has enough insulin in his pump for at least another day or so. Pump site should be fine to change tomorrow after procedure if he is discharged. However, if gastic emptying study is planned for Wednesday and discharge is delayed until Wednesday we will need to work out a plan to either obtain his pump supplies vs switch to sq basal bolus temporarily. PLAN FOR INPATIENT GLYCEMIC CONTROL: * Pt is to manage BSGs with insulin pump per outpatient settings. * Pt will set a temporary basal rate of 50% starting at 1600 today to prevent AM hypoglycemia tomorrow. Per protocol: If at any time the patients condition evidences that he/she is not able to manage the insulin pump (i.e. frequent hypo/hyperglycemia) Pharmacy will assume glycemic control by discontinuing the pump & managing with SQ basal bolus insulin regimen for the interim. HOWEVER, Pt is not agreeable to this.
[2018-03-27 15:41] VITALS: BP 175/97; PULSE 69; TEMP 37; O2SAT 96
[2018-03-27] MEDS ORDERED: NovoLOG INSULIN PUMP SCH (16:00)
[2018-03-27] MEDS: CLONIDINE HCL 0.1 MG TAB PO PRN (16:09)
[2018-03-27] MEDS: AMLODIPINE BESYLATE 5 MG TAB PO SCH (20:53)
[2018-03-28 00:02] VITALS: BP 150/84; PULSE 71; TEMP 37.3; O2SAT 97
[2018-03-28] MEDS: HEPARIN SOD 5000 UNIT/0.5 ML CARP SQ SCH ×2 (05:36→13:20)
[2018-03-28] MEDS: NovoLOG INSULIN PUMP SCH ×2 (05:51→13:18)
[2018-03-28 07:05] VITALS: BP 155/85; PULSE 69; TEMP 37.2; O2SAT 94
[2018-03-28 07:41] LABS: CREATININE 1.9 mg/dl (0.60-1.40); POTASSIUM 3.7 mmol/L (3.5-5.1)
[2018-03-28] MEDS: CHOLECALCIFEROL 1000 INTER.UNIT TAB PO SCH (08:31)
[2018-03-28] MEDS: PANTOprazole SOD 40 MG TAB PO SCH (08:31)
[2018-03-28] MEDS: CARVEDILOL 3.125 MG TAB PO SCH (08:31)
[2018-03-28] MEDS: AMOXICILLIN 500 MG CAP PO SCH (08:32)
[2018-03-28] MEDS: SUCRALFATE 1 GM/10 ML UDC PO SCH ×2 (08:34→13:00)
--- NOTE | 2018-03-28 10:28 | Progress Note ---
Progress Note Date of Service Mar 28, 2018. (Rosangela Todd CRNP) Progress Note Pt w hx of diabetes, seen last week by our GI team for n/v, distal esophagus thickening seen on CT scan. He is currently feeling much better. No n/v over weekend but only been eating CL diet. Sore slight pain on swallowing. He is on Carafate 1g QID and Protonix 40mg BID. VS, Labs reviewed. Exam: - AAOx3, in NAD - HR regular w/o murmur or gallops - Clear to auscultation bilateral chest - Abd soft, non tender - R leg in boot (hx of Charcot foot), L leg w/o edema. Plan for to have him undergo EGD eval if he's still in house today. We will add him to our endoscopy schedule. If no significant finding such as severe esophagitis or ulcer disease, may advance diet as tolerated and DC home. Plan for future gastric emptying study to r/o gastroparesis. (Rosangela Todd CRNP) Attending attestation I have seen, examined this patient, and agree with the findings and above by our mid-level provider Myra Dyer. -improved, however, still with hoarseness, odynophagia. Therefore, will plan to proceed with EGD today (Walter Sierra MD)
[2018-03-28] MEDS ORDERED: ONDANSETRON INJ 2 MG/ML 2 ML VIAL ONE (11:30)
[2018-03-28] MEDS ORDERED: PROPOFOL IV EMULSION 10 MG/ML 20 ML VIAL ONE (11:30)
[2018-03-28] MEDS ORDERED: FENTANYL CITRATE INJ 50 MCG/1 ML 2 ML VIAL ONE (11:30)
[2018-03-28] MEDS ORDERED: LIDOCAINE HCL 2% 2 ML VIAL (20MG/ML) ONE (11:30)
--- NOTE | 2018-03-28 12:00 | GI REPORT ---
Patient Name: Xavier Hicks Procedure Date: 03/28/2018 11:34 AM Date of : 1985 Admit Type: Inpatient Age: 32 Gender: Male Attending MD: Walter Sierra MD Procedure: Upper GI endoscopy Providers: Walter Sierra MD Referring MD: Richard Ndiaye Md Indications: Abnormal CT of the GI tract Medicines: Monitored Anesthesia Care Complications: No immediate complications. Estimated blood loss: None. Estimated Blood Loss: Estimated blood loss: none. Procedure: Pre-Anesthesia Assessment: - Pre-Anesthesia Assessment: - Prior to the procedure, a History and Physical was performed, and patient medications, allergies and sensitivities were reviewed. The patient's tolerance of previous anesthesia was reviewed. Please see [employer] for complete details. - The risks and benefits of the procedure and the sedation options and risks were discussed with the patient. All questions were answered and informed consent was obtained. - Patient identification and proposed procedure were verified prior to the procedure by the physician and the nurse. The procedure was verified in the pre-procedure area in the procedure room. After obtaining informed consent, the endoscope was passed carefully and meticuously under direct vision and only advanced when the lumen was clearly identified, C02 insuflation was utilized throughout the entirity of the procedure. Throughout the procedure, the patient's blood pressure, pulse, and oxygen saturations were monitored continuously. After obtaining informed consent, the endoscope was passed under direct vision. Throughout the procedure, the patient's blood pressure, pulse, and oxygen saturations were monitored continuously. The Scope was introduced through the mouth, and advanced to the second part of duodenum. The upper GI endoscopy was accomplished without difficulty. The patient tolerated the procedure well. Findings: LA Grade D (one or more mucosal breaks involving at least 75% of esophageal circumference) esophagitis with no bleeding was found. Biopsies were taken with a cold forceps for histology. The entire examined stomach was normal. The examined duodenum was normal. 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 Impression: - LA Grade D reflux esophagitis. Biopsied. - Normal stomach. - Normal examined duodenum. 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 Recommendation: - Await pathology results. - Discharge patient to home (with escort). - [facility]. - Use Prilosec (omeprazole) 40 mg PO BID for 2 months. - Repeat EGD in 6- 8 wks to document Healing - ENT can review my images of EGD given hoarseness. Walter Sierra MD 03/28/2018 11:59:57 AM This report has been signed electronically. Note Initiated On: 03/28/2018 11:34 AM Number of Addenda: 0 I attest to the content of the Intraoperative Record and orders documented therein, exceptions below {[id number]}
--- NOTE | 2018-03-28 12:52 | Anesthesiology Progress Note ---
Anesthesia Post Op Note Date & Time Mar 28, 2018 at 12:52 Vital Signs Pain Intensity: 0 Vital Signs Past 12 Hours Date Time Temp Pulse Resp B/P (MAP) Pulse Ox O2 Delivery O2 Flow Rate FiO2 03/28/18 12:30 68 20 173/101 (125) 96 Room Air 03/28/18 12:15 67 20 163/100 (121) 96 Room Air 03/28/18 12:01 37 69 20 136/94 (108) 96 Room Air 03/28/18 10:52 37 73 20 175/100 (125) 96 Room Air 03/28/18 08:00 Room Air 03/28/18 07:05 37.2 69 18 155/85 (108) 94 Room Air Notes Mental Status: alert / awake / arousable, participated in evaluation Pt Amnestic to Procedure: Yes Nausea / Vomiting: adequately controlled Pain: adequately controlled Airway Patency, RR, SpO2: stable & adequate BP & HR: stable & adequate Hydration State: stable & adequate Anesthetic Complications: no major complications apparent
--- NOTE | 2018-03-28 15:01 | Progress Note ---
Internal Med Progress Note Date of Service: Mar 28, 2018. Provider Documentation: SUBJECTIVE: Seen and examined at bedside Had EGD today hoarseness improved No complaints Denies chest pain, SOB, abd pain OBJECTIVE: Vital Signs-as noted below Physical Exam: General Appearance:Moderately built and nourished, no apparent distress Head: normocephalic, Atraumatic Eyes: normal inspection, EOMI, PERRL Neck: supple, Trachea midline Respiratory/Chest: Normal breath sounds, CTA Cardiovascular: S1, S2, No murmur Abdomen/GI:Soft, mild generalized tender, Bowel sounds present Extremities/Musculoskelatal:normal inspection, no edema, Right foot in brace Neurologic/Psych:AAOX3, grossly no focal neurological deficits Skin: normal color, warm Lab data as noted below. ASSESSMENT & PLAN: Recent Syncope and collapse Occurred on March 21 could be secondary to hypoglycemic episodes No issues on Tele Advised to monitor BGs daily upon discharge and follow up with his PCP DM Type 1 On Insulin pump at home monitor for hypoglycemic episodes Hb A1C: 7.1 Pharmacist consulted for diabetes management No signs of DKA Possible Bronchitis CXR: no active disease Rapid Strep: Group B strep Leukocytosis normalized Afebrile Continue Amoxicillin Day # 4 Epigastric Abdominal pain: Resolved Esophageal Wall thickening likely 2/2 vomiting DD: Esophagitis, Gastroparesis CT abd:No evidence of bowel obstruction. Mild distal esophageal wall thickening. Tox Screen: Negative Continue Protonix for 2 months, Sucralfate for 2 weeks Plan for Gastric empyting study as outpatient S/P EGD: as below---Reflex Esophagitis, Leukoplakia Appreciate GI Input Acute renal failure on CKD III Likely prerenal Received IV fluids monitor PRP Cr:3.92>>>2.85>>2.29>>2.0>>1.9 Hold lisinopril Avoid nephrotoxic agents as able Advised to follow up his Voice Over Artist upon discharge Hypertension Continue amlodipine, coreg Hold lisinopril 2/2 JUANA monitor Right Charcot foot: Patient prefers no X ray to R/O fracture Follows with Child Psychometrist as outpatient He doesn't want any intervention of right ankle DVT Px: SQ heparin Code Status Full Code Disposition: Plan to discharge home today Follow up with on 04/04/18 at 11:00AM for routine Care Follow up with your Card Processing Clerk in 3-4 weeks Follow up with your ENT specialist for evaluation of Leukoplakia noted on EGD and for hoarseness Follow up with your Voice Over Artist for monitoring your kidney function and Blood pressure medications in 1-2 weeks Get Gastric Emptying study as outpatient as advised Complete the antibiotic course as prescribed Monitor your Blood sugar levels regularly. Follow up with your doctor for recommendations on Insulin therapy Follow up with your Voice Over Artist for further recommendation on resuming your Lisinopril Seek immediate medical attention if your symptoms reoccur or worsen PROCEDURES: EGD: Impression: - LA Grade D reflux esophagitis. Biopsied. - Normal stomach. - Normal examined duodenum. 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 Recommendation: - Await pathology results. - Discharge patient to home (with escort). - [facility] to [facility] care. - Use Prilosec (omeprazole) 40 mg PO BID for 2 months. - Repeat EGD in 6- 8 wks to document Healing - ENT can review my images of EGD given hoarseness. Vital Signs: Date Time Temp Pulse Resp B/P (MAP) Pulse Ox O2 Delivery O2 Flow Rate FiO2 03/28/18 12:30 68 20 173/101 (125) 96 Room Air 03/28/18 12:15 67 20 163/100 (121) 96 Room Air 03/28/18 12:01 37 69 20 136/94 (108) 96 Room Air 03/28/18 10:52 37 73 20 175/100 (125) 96 Room Air 03/28/18 08:00 Room Air 03/28/18 07:05 37.2 69 18 155/85 (108) 94 Room Air 03/28/18 00:02 37.3 71 20 150/84 (106) 97 Room Air 03/28/18 00:00 Room Air 03/27/18 16:00 Room Air 03/27/18 15:41 37.0 69 16 175/97 (123) 96 Room Air Lab Results: Results Past 24 Hours Test 03/27/18 16:33 03/27/18 20:09 03/28/18 05:49 03/28/18 06:59 Range/Units Bedside Glucose 140 233 218 70-99 mg/dl Sodium Level 140 136-145 mmol/L Potassium Level 3.7 3.5-5.1 mmol/L Chloride Level 107 98-107 mmol/L Carbon Dioxide Level 26 21-32 mmol/L Anion Gap 7.0 3-11 mmol/L Blood Urea Nitrogen 16 7-18 mg/dl Creatinine 1.90 0.60-1.40 mg/dl Est Creatinine Clear Calc Drug Dose 56.9 ml/min Estimated GFR () 52.5 Estimated GFR (Non- 45.3 BUN/Creatinine Ratio 8.4 10-20 Random Glucose 185 70-99 mg/dl Calcium Level 8.0 8.5-10.1 mg/dl Test 03/28/18 07:33 03/28/18 13:16 Range/Units Bedside Glucose 181 152 70-99 mg/dl
[2018-03-28] MEDS ORDERED: CRG3125 PO (15:04)
[2018-03-28] MEDS ORDERED: AMX500 PO (15:04)
[2018-03-28] MEDS ORDERED: CRFUDL PO (15:04)
[2018-03-28] MEDS ORDERED: PANT40TA2 PO (15:04)
--- NOTE | 2018-03-28 15:08 | Discharge Summary ---
Discharge Summary Date of Service Mar 28, 2018. Discharge Summary Admission Date: Mar 23, 2018 at 21:24 Discharge Date: Mar 28, 2018 Discharge Disposition: Home Principal Diagnosis: JUANA, Reflex Esophagitis, Leukoplakia, HTN Procedures: EGD: Impression: - LA Grade D reflux esophagitis. Biopsied. - Normal stomach. - Normal examined duodenum. 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 Recommendation: - Await pathology results. - Discharge patient to home (with escort). - [facility] to [facility]. - Use Prilosec (omeprazole) 40 mg PO BID for 2 months. - Repeat EGD in 6- 8 wks to document Healing - ENT can review my images of EGD given hoarseness. CT ABD: 1. Study limited due to the lack of intravenous and oral contrast. 2. No renal, ureteral, or bladder calculi identified 3. No evidence of bowel obstruction. No evidence of free air 4. Stable 11 mm sclerotic lesion within the left iliac bone 5. Mild distal esophageal wall thickening. 6. Borderline rectal wall thickening. Consultations: GI Pending Studies/Follow-Up: Follow up with on 04/04/18 at 11:00AM for routine Care Follow up with your Features Editor in 3-4 weeks Follow up with your ENT specialist for evaluation of Leukoplakia noted on EGD and for hoarseness Follow up with your Sole Conditioner for monitoring your kidney function and Blood pressure medications in 1-2 weeks Follow up with your Experimental Welder for further management of your Right Charcot foot Get Repeat EGD in 6-8 weeks and Gastric Emptying study as outpatient as advised Complete the antibiotic course as prescribed Monitor your Blood sugar levels regularly. Follow up with your doctor for recommendations on Insulin therapy Follow up with your Sole Conditioner for further recommendation on resuming your Lisinopril Seek immediate medical attention if your symptoms reoccur or worsen Admission Information HPI (per Admitting provider): He is a 32-year-old white male with significant past medical history of chronic kidney disease stage III type 1 diabetes on insulin therapy hypertension and also to work use disorder and apparently was in ER on the of last month with an attack of syncope and collapsed followed by profuse nausea and vomiting. He was evaluated by the ER physician and apparent blood test and imaging studies were unremarkable and he was sent home. For the last 3 days he has been complaining of constant nausea and vomiting to an extent that his voice has been affected by this and he feels weak and tired. He does have some abdominal discomfort but no definite pain associated with it. He denies to any recent hypoglycemic event and he denies to have any fever, chills, riders, any abdominal distention, any numbness or tingling in the extremities and/or any more episode of blackout since 21 March of this year. He denies to use any alcohol and/or any illicit drugs. In the ER he was afebrile, hemodynamically stable and his white count was elevated to 16,000 and he is creatinine went up to 3.9 from 2.4 3 days back. He was still having discomfort and nausea with weakness during my examination. He was admitted to telemetry unit for observation. Physical Exam (per Admitting): General Appearance: + mild distress Head: normocephalic Eyes: normal inspection, PERRL, EOMI, sclerae normal ENT: normal ENT inspection Neck: supple, no adenopathy, thyroid normal Respiratory/Chest: lungs clear Cardiovascular: regular rate, rhythm Abdomen/GI: normal bowel sounds, + tenderness (Mild tenderness all over) Back: normal inspection Extremities/Musculoskelatal: normal inspection Neurologic/Psych: normal mood/affect Skin: normal color Lymphatic: no adenopathy Hospital Course Recent Syncope and collapse Occurred on March 21 could be secondary to hypoglycemic episodes No issues on Tele Advised to monitor BGs daily upon discharge and follow up with his PCP DM Type 1 On Insulin pump at home monitor for hypoglycemic episodes Hb A1C: 7.1 Pharmacist consulted for diabetes management No signs of DKA Possible Bronchitis CXR: no active disease Rapid Strep: Group B strep Leukocytosis normalized Afebrile Continue Amoxicillin Day # 4 Epigastric Abdominal pain: Resolved Esophageal Wall thickening likely 2/2 vomiting DD: Esophagitis, Gastroparesis CT abd:No evidence of bowel obstruction. Mild distal esophageal wall thickening. Tox Screen: Negative Continue Protonix for 2 months, Sucralfate for 2 weeks Plan for Gastric empyting study as outpatient S/P EGD: as below---Reflex Esophagitis, Leukoplakia Appreciate GI Input Acute renal failure on CKD III Likely prerenal Received IV fluids monitor PRP Cr:3.92>>>2.85>>2.29>>2.0>>1.9 Hold lisinopril Avoid nephrotoxic agents as able Advised to follow up his Sole Conditioner upon discharge Hypertension Continue amlodipine, coreg Hold lisinopril 2/2 JUANA monitor Right Charcot foot: Patient prefers no X ray to R/O fracture Follows with Experimental Welder as outpatient He doesn't want any intervention of right ankle DVT Px: SQ heparin Code Status Full Code Disposition: Plan to discharge home today Follow up with on 04/04/18 at 11:00AM for routine Care Follow up with your Features Editor in 3-4 weeks Follow up with your ENT specialist for evaluation of Leukoplakia noted on EGD and for hoarseness Follow up with your Sole Conditioner for monitoring your kidney function and Blood pressure medications in 1-2 weeks Get Gastric Emptying study as outpatient as advised Complete the antibiotic course as prescribed Monitor your Blood sugar levels regularly. Follow up with your doctor for recommendations on Insulin therapy Follow up with your Sole Conditioner for further recommendation on resuming your Lisinopril Seek immediate medical attention if your symptoms reoccur or worsen PROCEDURES: EGD: Impression: - LA Grade D reflux esophagitis. Biopsied. - Normal stomach. - Normal examined duodenum. 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 Recommendation: - Await pathology results. - Discharge patient to home (with escort). - [facility] to [facility] for [facility] care. - Use Prilosec (omeprazole) 40 mg PO BID for 2 months. - Repeat EGD in 6- 8 wks to document Healing - ENT can review my images of EGD given hoarseness. Total time spent on discharge = 40 minutes This includes examination of the patient, discharge planning, medication reconciliation, and communication with other providers. Discharge Instructions Discharge Instructions Date of Service Mar 28, 2018. Admission Reason for Admission: Syncope, Vomiting Discharge Discharge Diagnosis / Problem: JUANA, Reflex Esophagitis, Leukoplakia, HTN Discharge Goals Goal(s): Decrease discomfort, Improve function Activity Recommendations Activity Limitations: resume your previous activity Exercise/Sports Limitations: as tolerated . Instructions / Follow-Up Instructions / Follow-Up Follow up with on 04/04/18 at 11:00AM for routine Care Follow up with your Features Editor in 3-4 weeks Follow up with your ENT specialist for evaluation of Leukoplakia noted on EGD and for hoarseness Follow up with your Sole Conditioner for monitoring your kidney function and Blood pressure medications in 1-2 weeks Follow up with your Experimental Welder for further management of your Right Charcot foot Get Repeat EGD in 6-8 weeks and Gastric Emptying study as outpatient as advised Complete the antibiotic course as prescribed Monitor your Blood sugar levels regularly. Follow up with your doctor for recommendations on Insulin therapy Follow up with your Sole Conditioner for further recommendation on resuming your Lisinopril Seek immediate medical attention if your symptoms reoccur or worsen Current Hospital Diet Patient's current hospital diet: Clear Liquid Diet, Diabetes Type 1 Diet Discharge Diet Recommended Diet: Diabetes Type 1 Diet Procedures Procedures Performed: Esophagogastroduodenoscopy with biopsy, Dr. Sierra Pending Studies Studies pending at discharge: yes List of pending studies: Pathology reports Laboratory Results Hemoglobin A1c Test 03/24/18 06:40 Range/Units Estimated Average Glucose 157 mg/dl Hemoglobin A1c 7.1 H 4.5-5.6 % Medical Emergencies . Who to Call and When: Medical Emergencies: If at any time you feel your situation is an emergency, please call 911 immediately. . Non-Emergent Contact Non-Emergency issues call your: Primary Care Provider, Features Editor Call Non-Emergent contact if: you have a fever, your pain is not controlled, your pain is worsening, your pain is unusual for you, your pain is concerning you, you have any medication questions Seek immediate medical attention if your symptoms reoccur or worsen . . "Provider Documentation" section prepared by Richard Ndiaye. .
[2018-03-28 15:40] VITALS: BP 173/101; PULSE 68; TEMP 37; O2SAT 96
== END 2018-03-28 16:41 | disposition home or self-care (01) | DRG 392 ==
LOC: C.EDB 19:19 → C.2T 21:24 → ENRESERV 21:49 → C.MS2W 03-26 12:57
PROVIDERS: ADMIT Internal Medicine; ATTEND Internal Medicine
PROC: 0DB58ZX Excision of Esophagus, Via Natural or Artificial Opening Endoscopic, Diagnostic (ICD-10-PCS; principal; 2018-03-28 10:48)
DX: K21.0 Gastro-esophageal reflux disease with esophagitis (principal); N17.9 Acute kidney failure, unspecified; E10.43 Type 1 diabetes mellitus with diabetic autonomic (poly)neuropathy; J38.7 Other diseases of larynx; J20.2 Acute bronchitis due to streptococcus; R51 Headache; E10.649 Type 1 diabetes mellitus with hypoglycemia without coma; E10.22 Type 1 diabetes mellitus with diabetic chronic kidney disease; I12.9 Hypertensive chronic kidney disease with stage 1 through stage 4 chronic kidney disease, or unspecified chronic kidney disease; N18.3 Chronic kidney disease, stage 3 (moderate); E10.610 Type 1 diabetes mellitus with diabetic neuropathic arthropathy; Z87.891 Personal history of nicotine dependence; Z79.899 Other long term (current) drug therapy

== ENCOUNTER 2018-08-05 14:38 | Inpatient (IN) ==
[2018-08-05 15:43] LABS: Basophils # (auto) 0.06 K/uL (0-0.2); Eosinophils # (auto) 0.02 K/uL (0-0.5); Eosinophils % (auto) 0.3 %; Hematocrit (blood only) 30.4 % (42-52); Hemoglobin 10.4 g/dL (14.0-18.0); Immature Granulocytes # (auto) 0.01 K/uL (0.00-0.02); Immature Granulocytes % (auto) 0.2 %; Lymphocytes # (auto) 0.94 K/uL (1.2-3.4); Lymphocytes % (auto) 16.1 %; Mean Corpuscular Hgb Conc 34.2 g/dL (32-36); Mean Corpuscular Volume 86.1 fL (80-100); Mean Platelet Volume 10.2 fL (7.4-10.4); Monocytes # (auto) 0.35 K/uL (0.11-0.59); Neutrophils # (auto) 4.46 K/uL (1.4-6.5); Neutrophils % (auto) 76.4 %; Platelet Count 256 K/uL (130-400); RDW Standard Deviation 43.6 fL (36.4-46.3); Red Blood Count 3.53 M/uL (4.7-6.1); White Blood Count 5.84 K/uL (4.8-10.8)
--- NOTE | 2018-08-05 15:59 | Emergency Department Note ---
History of Present Illness General Chief complaint: Referred by Doctor Stated complaint: LOW BLOOD SUGAR, HIGH BLOOD PRESSURE, KIDNEY DAMAG Time Seen by Provider: 08/05/18 14:47 History of Present Illness Maximum Pain Intensity: 4 This is a 33-year-old male that presents to the emergency department via private vehicle referred by portfolio administrator with complaints of "low blood sugar, high blood pressure, kidney damage". The patient notes that he had a visit yesterday with a new portfolio administrator in the [place]. This was with Dr. Barrera. He notes that he had routine labs drawn. He notes that he was feeling well at that time and then today developed a headache. He notes that he vomited this morning as well. He states that he was told to go to the hospital because the blood work results came back with a blood sugar at 38, as well as findings of acute kidney injury. He currently rates his overall pain is a 4/10. He notes that his sugars have been well. Home Medications Home Medications Medication Instructions Recorded Confirmed Type amlodipine 5 mg PO DAILY 08/05/18 08/05/18 History cholecalciferol (vitamin D3) 5,000 units PO DAILY 08/05/18 08/05/18 History [Vitamin D3] insulin aspart U-100 [Novolog 1 sliding scale dose CONTINUOUS 08/05/18 08/05/18 History U-100 Insulin aspart] SUBCUTANEOUS INFUSION UD lisinopril 2.5 mg PO DAILY 08/05/18 08/05/18 History Allergies Allergy/AdvReac Type Severity Reaction Status Date / Time No Known Allergies Allergy Verified 08/05/18 15:12 Past Med/Surg History Medical History Diabetes (Chronic) Hypertension (Chronic) Surgical History Hx of eye surgery Social History Feels Safe at Home: Yes Smoking Status: Former smoker Preferred Language: Bahamian Review of Systems A total of 10 systems reviewed and were otherwise negative Physical Exam Vital Signs Vital Signs - 24 hr 08/05/18 14:41 08/05/18 16:53 08/05/18 17:02 Temperature 36.5 C Temperature Source Oral Sepsis Recent Fever Within 48 Hours No Sepsis New/Unexplained Change in Mental Status No Sepsis Action Taken by Nursing No Action Required Pulse Rate - Lying 88 Pulse Rate - Sitting 82 Pulse Rate - Standing 89 Pulse Rate 101 H Pulse Rate [Right Finger] 65 Respiratory Rate 17 18 Respiratory Depth Normal Blood Pressure - Lying 169/107 H Blood Pressure - Sitting 149/106 H Blood Pressure- Standing 131/100 Blood Pressure 161/107 H Blood Pressure [Right Arm] 172/104 H Blood Pressure Mean 125 Blood Pressure Mean [Right Arm] 126 Blood Pressure Position Sitting Pulse Oximetry 97 98 Oxygen Delivery Method Room Air 08/05/18 18:56 Temperature Temperature Source Sepsis Recent Fever Within 48 Hours Sepsis New/Unexplained Change in Mental Status Sepsis Action Taken by Nursing Pulse Rate - Lying Pulse Rate - Sitting Pulse Rate - Standing Pulse Rate Pulse Rate [Right Finger] 91 H Respiratory Rate 18 Respiratory Depth Blood Pressure - Lying Blood Pressure - Sitting Blood Pressure- Standing Blood Pressure Blood Pressure [Right Arm] 170/103 H Blood Pressure Mean Blood Pressure Mean [Right Arm] 125 Blood Pressure Position Pulse Oximetry 97 Oxygen Delivery Method Room Air VITAL SIGNS - Vital signs and nursing notes were reviewed. Hypertensive. Otherwise stable. Afebrile. GENERAL -33-year-old male appearing his stated age who is in no acute distress. Communicates well with provider and answers questions appropriately. SKIN - Without rashes. No meningeal or petechial rash. There is a supportive boot on the patient's right foot that he notes is for Charcot foot. HEAD - NC/AT. EYES - PERRL with EOMI bilaterally. Sclera anicteric. EARS - No deformities of external structures noted on gross examination bilaterally. NOSE - Midline and without cyanosis. No epistaxis or purulent drainage noted. Septum midline without deviation or septal hematoma noted. MOUTH/OROPHARYNX - Without perioral cyanosis. Buccal mucosa pink and moist and without leukoplakia. Tongue midline with equal elevation of palate bilaterally. No tonsillar hypertrophy, erythema, or exudates noted. Fair dentition noted. NECK - Neck with FROM. Supple to palpation. No lymphadenopathy noted. No nuchal rigidity. LUNGS - Chest wall symmetric without accessory muscle use, intercostals retractions, or central cyanosis. Normal vesicular breath sounds CTA B/L. No wheezes, rales, or rhonchi appreciated. CARDIAC - RRR with S1/S2. No murmur, rubs, or gallops appreciated. ABDOMEN - Abdominal contour normal without pulsations or visible masses. BS normoactive all four quadrants. No tenderness, palpable masses, hepatosplenomegaly, or ascites noted. EXTREMITIES - No clubbing or peripheral cyanosis. No pretibial edema present. +5 /5 strength noted in UE/LE bilaterally. NEUROLOGIC - Cranial nerves II through XII grossly intact. Sensory intact to light touch throughout. PSYCH - A&Ox3 and cooperates fully with examiner. Pt is very pleasant and interacts well with examiner. Course Administered Medications Discontinued Medications Sodium Chloride (Nss 1000ml) 500 mls @ 999 mls/hr IV .Q31M ONE Stop: 08/05/18 17:13 Last Infusion: 08/05/18 17:58 Dose: 0 mls/hr Admin: 08/05/18 16:52 Dose: 999 mls/hr Medical Decision Making Laboratory Data Result diagrams: 08/05/18 15:14 08/05/18 15:14 Lab Results 08/05/18 08/05/18 Range/Units 15:14 15:14 WBC 5.84 (4.8-10.8) K/uL RBC 3.53 L (4.7-6.1) M/uL Hgb 10.4 L (14.0-18.0) g/dL Hct 30.4 L (42-52) % MCV 86.1 (80-100) fL MCH 29.5 (25-34) pg MCHC 34.2 (32-36) g/dL RDW Std Deviation 43.6 (36.4-46.3) fL RDW Coeff of Ralph 14.0 (11.5-14.5) % Plt Count 256 (130-400) K/uL MPV 10.2 (7.4-10.4) fL Immature Gran % (Auto) 0.2 % Neut % (Auto) 76.4 % Lymph % (Auto) 16.1 % [place] % (Auto) 6.0 % Eos % (Auto) 0.3 % Baso % (Auto) 1.0 % Immature Gran # (Auto) 0.01 (0.00-0.02) K/uL Neut # (Auto) 4.46 (1.4-6.5) K/uL Lymph # (Auto) 0.94 L (1.2-3.4) K/uL [place] # (Auto) 0.35 (0.11-0.59) K/uL Eos # (Auto) 0.02 (0-0.5) K/uL Baso # (Auto) 0.06 (0-0.2) K/uL Sodium 140 (136-145) mmol/L Potassium 4.6 (3.5-5.1) mmol/L Chloride 107 (98-107) mmol/L Carbon Dioxide 28 (21-32) mmol/L Anion Gap 5.0 (3-11) BUN 51 H (7-18) mg/dl Creatinine 3.95 H (0.6-1.4) mg/dl Est Cr Clr Drug Dosing 26.1 ml/min Est GFR ( Amer) 21.5 Est GFR (Non-Af Amer) 18.6 BUN/Creatinine Ratio 12.9 (10-20) Glucose 90 (70-99) mg/dl Calcium 8.4 L (8.5-10.1) mg/dl Magnesium 2.6 H (1.8-2.4) mg/dl Total Bilirubin 0.3 (0.1-1) mg/dl AST 14 L (15-37) U/L ALT 15 (12-78) U/L Alkaline Phosphatase 78 (45-117) U/L Total Protein 6.3 L (6.4-8.2) gm/dl Albumin 2.5 L (3.4-5.0) gm/dl Globulin 3.8 (2.5-4.0) gm/dl Albumin/Globulin Ratio 0.7 L (0.9-2) MDM Narrative Patient was seen and evaluated as above in room C 10. Review was performed of nursing notes and vital signs. After obtaining a thorough history and physical examination the above work up was performed. He presents today referred by portfolio administrator. secondary to concern of acute kidney injury, as well as hypoglycemia per blood work. It was also noted that about 48 hours ago he had 15 minutes of numbness of the right hand as well as difficulty with speaking. His blood sugar around that time was in the 40s. He also notes that today he awoke with a headache. He is nontoxic on examination. He is hypertensive. No neurovascular deficit. Baseline labs were obtained. There is no leukocytosis. There is anemia noted. Metabolic workup does show acute kidney injury at 3.95. Potassium is normal. Calcium low at 8.4. Mag high at 2.6. BUN 51. EKG normal sinus rhythm, rate of 87 bpm. Fluid bolus ordered. His headache greatly improved. Orthostatics ordered. Case discussed with the attending physician. He will be admitted for further evaluation and management of acute kidney injury. Please refer to further documentation regarding his stay. Case was discussed with Dr. Galvez (hospitalist) with [facility]. In the evaluation and treatment of this patient the following differential diagnoses were entertained: Hyperkalemia, acute kidney injury, dehydration, among others. Impression & Plan JUANA (acute kidney injury), Anemia Discharge Plan Visit Data Chief Complaint: Referred by Doctor Stated Complaint: LOW BLOOD SUGAR, HIGH BLOOD PRESSURE, KIDNEY DAMAG ED Provider: Edouard Bhatia ED Midlevel Provider: Brennen Wiseman Discharge Problem: JUANA (acute kidney injury), Anemia Forms Stand Alone Forms: [facility], [facility] Prescriptions Prescriptions: No Action amlodipine 5 mg tablet 5 mg PO DAILY RF: 0 insulin aspart U-100 [Novolog U-100 Insulin aspart] 100 unit/mL Solution 1 sliding scale dose Continuous Subcutaneous Infusion UD RF: 0 lisinopril 2.5 mg tablet 2.5 mg PO DAILY RF: 0 cholecalciferol (vitamin D3) [Vitamin D3] 5,000 unit Tablet 5,000 units PO DAILY RF: 0
[2018-08-05 16:05] LABS: Albumin Level 2.5 gm/dl (3.4-5.0); BUN Creatinine Ratio 12.9 (10-20); Calcium 8.4 mg/dl (8.5-10.1); Creatinine Clr Calc Pharmacy 26.1 ml/min; Est GFR (African American) 21.5; Est GFR (Non-African American) 18.6; Magnesium 2.6 mg/dl (1.8-2.4); Potassium 4.6 mmol/L (3.5-5.1)
[2018-08-05 16:07] LABS: Albumin Globulin Ratio 0.7 (0.9-2); Bilirubin,Total 0.3 mg/dl (0.1-1); Globulin 3.8 gm/dl (2.5-4.0); Total Protein 6.3 gm/dl (6.4-8.2)
[2018-08-05] MEDS ORDERED: SODIUM CHLORIDE 0.9% 1000ML 500 ML IV ONE (16:43)
[2018-08-05] MEDS ORDERED: PHARMACY GLYCEMIC MGMT CONSULT PRN (19:25)
--- NOTE | 2018-08-05 19:36 | History & Physical Report ---
Date of Service August 05, 2018 Assessment & Plan (1) JUANA (acute kidney injury): Serum creatinine 3.95 compared to baseline of 1.9 in March 2018. Acute kidney injury could be secondary to volume depletion, obstructive uropathy , or other etiologies. Check renal US and duplex renal artery. Straight caths for urinary retention. Check FE Na. Hold lisinopril. IV fluids. Consult Nephrology. (2) CKD (chronic kidney disease), stage III: JUANA as discussed above. Ongoing management of CKD per Nephrology. (3) Urinary retention: Patient performs straight caths once a day at home. JUANA could be secondary to obstructive uropathy. Straight caths q shift. Check renal US. (4) Hypertension: Hold lisinopril due to JUANA. Continue amlodipine. Check duplex renal arteries. Follow and titrate therapy. (5) Diabetes mellitus type 1 with complications: Continue management with insulin pump. Check Hgb A1C. Pharmacy consulted to follow. (6) Diabetic neuropathy: Diabetic neuropathy with Charcot foot/ankle. Neuropathy precautions. Off-loading shoe when out of bed. (7) Nausea and vomiting: Chronic intermittent nausea and vomiting. Consider gastroparesis. Gastric emptying scan in near future when acute issues have been addressed (can be done as outpatient). (8) Neurological symptoms: Patient had episode of right hand numbness and difficulty speaking (? expressive aphasia) 2 days prior to admission. Symptoms were associated with hypoglycemia, but patient did not experience usual associated symptoms. Consider TIA. Consider migraine. Check MRI brain. Check carotid duplex. Monitor for arrhythmias. Add antithrombotic therapy if studies demonstrate evidence of cerebrovascular disease. Consult Neurology for their input. (9) DVT prophylaxis: Low risk for DVT (0.5% per IMPROVE Predictive Risk Model). Prophylaxis not indicated. Ambulate. Reassess risk if status changes. (10) Discharge planning issues: Anticipated discharge to home. Family Medicine follow-up with Dr. Singh. Nephrology follow-up with Dr. Bains. History of Present Illness Chief Complaint: abnormal labs Primary Care Provider: Ciro Singh MD 33 year old male followed by Dr. Singh for primary care and Dr. Bains for Nephrology. History of DM type 1 diagnosed at age of 13; currently managed with insulin pump. Diabetes complicated by retinopathy, nephropathy, neuropathy, Charcot foot / ankle. Other problems include hypertension and CKD III with baseline creatinine of 2 +/ -. Seen in Nephrology clinic yesterday and routine labs were performed. Creatinine was 4.2, compared to 2.5 on 05/10/18. Patient was referred to the hospital for management of his acute kidney injury. Blood sugars have been fairly well controlled. Drinks plenty of fluids. No polyuria. Chronic urinary retention managed with straight caths once a day. Does not measure his urine output, but feels that there has been no changed. Does not use any NSAID's. 2 days prior to admission he experienced an episode of difficulty speaking ( words didn't make sense) and right hand numbness. Blood sugar was in the 40's around that time, but he did not have his usual hypoglycemic symptoms. Symptoms lasted a short time, then resolved. He has history of migraine headaches. Severe headache today similar to his typical migraines; symptoms improved with IV fluids. Allergies Allergy/AdvReac Type Severity Reaction Status Date / Time No Known Allergies Allergy Verified 08/05/18 15:12 Home Medications Home Medications Medication Instructions Recorded Confirmed Type amlodipine 5 mg PO DAILY 08/05/18 08/05/18 History cholecalciferol (vitamin D3) 5,000 units PO DAILY 08/05/18 08/05/18 History [Vitamin D3] insulin aspart U-100 [Novolog 1 sliding scale dose CONTINUOUS 08/05/18 08/05/18 History U-100 Insulin aspart] SUBCUTANEOUS INFUSION UD lisinopril 2.5 mg PO DAILY 08/05/18 08/05/18 History Past Med/Surg History Medical History Fatty liver (Chronic) Charcot foot due to diabetes mellitus (Chronic) Nausea and vomiting (Chronic) Urinary retention (Chronic) CKD (chronic kidney disease), stage III (Chronic) Diabetic nephropathy (Chronic) Diabetic neuropathy (Chronic) Diabetic retinopathy (Chronic) 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) Anemia (Chronic) Hypertension (Chronic) Surgical History Hx of eye surgery Social History Feels Safe at Home: Yes Smoking Status: Former smoker Preferred Language: Amharic Review of Systems Constitutional: no fever and no weight loss Eyes: no diplopia and no worsening vision Ear, Nose, Mouth, Throat: no nasal congestion, no sinus pain/pressure and no sore throat Respiratory: no cough and no dyspnea Cardiovascular: no chest pain, no palpitations and no edema Gastrointestinal: + nausea and + vomiting; no hematemesis, no constipation, no diarrhea/loose stools, no blood in stools and no melena Genitourinary (Male): + difficulty urinating (chronic urinary retention requiring straight-caths); no dysuria and no hematuria Musculoskeletal: + deformity (Charcot deformities right foot / ankle); no joint pain and no myalgia Integumentary: no rash and no new lesions Neurologic: + headache(s) (migraines) diabetic neuropathy Endocrine: no polydipsia and no polyuria blood sugars generally well-controlled at home Hematologic / Lymphatic: no easy bleeding, no easy bruising and no lymphadenopathy Physical Exam 2 Vital Signs (Past 24 Hours): Last Vital Signs Temp 36.5 C 08/05/18 14:41 Pulse 91 H 08/05/18 18:56 Resp 18 08/05/18 18:56 BP 170/103 H 08/05/18 18:56 Pulse Ox 97 08/05/18 18:56 Constitutional: WD/WN, vitals as above no acute distress Eyes: PERRL, conjunctivae normal, anicteric sclerae ENMT: external ear and nose normal, oropharynx normal Neck: trachea midline, no thyromegaly Respiratory: normal respiratory effort, lungs clear to auscultation Cardiovascular: Rate/Rhythm: regular rate Heart Sounds: no gallop, no murmur and no cardiac rub Vessels: no JVD Extremities: normal capillary refill and + edema (bilat ankles R > L); no calf tenderness Gastrointestinal (Abdomen): normal bowel sounds, soft, nontender, no hepatosplenomegaly Musculoskeletal: Head/Neck/Chest: neck supple Extremities: strength 5/5 throughout; no cyanosis and no clubbing Ankle: + deformity (right) deformity right foot; no diabetic foot ulcers Skin: no rashes, warm and dry Neurologic: PERRL, EOMI no facial palsy no dysarthria or aphasia Psychiatric: Orientation: alert and oriented x 3 Affect: euthymic affect Lymphatic: no cervical lymphadenopathy Results & Data Laboratory Results Laboratory Results - last 24 hr 08/05/18 08/05/18 15:14 15:14 WBC 5.84 RBC 3.53 L Hgb 10.4 L Hct 30.4 L MCV 86.1 MCH 29.5 MCHC 34.2 RDW Std Deviation 43.6 RDW Coeff of Ralph 14.0 Plt Count 256 MPV 10.2 Immature Gran % (Auto) 0.2 Neut % (Auto) 76.4 Lymph % (Auto) 16.1 [place] % (Auto) 6.0 Eos % (Auto) 0.3 Baso % (Auto) 1.0 Immature Gran # (Auto) 0.01 Neut # (Auto) 4.46 Lymph # (Auto) 0.94 L [place] # (Auto) 0.35 Eos # (Auto) 0.02 Baso # (Auto) 0.06 Sodium 140 Potassium 4.6 Chloride 107 Carbon Dioxide 28 Anion Gap 5.0 BUN 51 H Creatinine 3.95 H Est Cr Clr Drug Dosing 26.1 Est GFR ( Amer) 21.5 Est GFR (Non-Af Amer) 18.6 BUN/Creatinine Ratio 12.9 Glucose 90 Calcium 8.4 L Magnesium 2.6 H Total Bilirubin 0.3 AST 14 L ALT 15 Alkaline Phosphatase 78 Total Protein 6.3 L Albumin 2.5 L Globulin 3.8 Albumin/Globulin Ratio 0.7 L Code Status & VTE Plan Code Status Full code. VTE Prophylaxis Plan VTE Prophylaxis will be ordered: No Reason for no VTE drug order: Treatment not indicated Reason for no VTE mechanical prophylaxis: Treatment not indicated _ (1) Diabetic neuropathy Diabetes mellitus complication detail: diabetic polyneuropathy Diabetes mellitus type: type 1 Qualified Code(s): E10.42 - Type 1 diabetes mellitus with diabetic polyneuropathy (2) Nausea and vomiting Vomiting Intractability: unspecified Vomiting type: unspecified Qualified Code(s): R11.2 - Nausea with vomiting, unspecified (3) Hypertension Hypertension type: unspecified Qualified Code(s): I10 - Essential (primary) hypertension
[2018-08-05] MEDS ORDERED: GLUCOSE 40% GEL 15 GM TUBE PO PRN (19:45)
[2018-08-05] MEDS ORDERED: GLUCOSE 10 TABS/TUBE PO PRN (19:45)
[2018-08-05] MEDS ORDERED: INSULIN ASPART 100 UNITS/ML VIAL SC PRN (19:45)
[2018-08-05] MEDS ORDERED: GLUCAGON FOR INJ 1 MG VIAL SQ PRN (19:45)
[2018-08-05] MEDS ORDERED: ACETAMINOPHEN 325 MG TAB PO PRN (19:49)
[2018-08-05] MEDS ORDERED: NON-FORMULARY MEDICATION (Insulin Aspart U-100 1 sliding scale dose) Continuous Subcutaneous Infusion SCH (19:49)
--- NOTE | 2018-08-05 20:31 | Ultrasound Report ---
ULTRASOUND OF THE CAROTID ARTERIES CLINICAL HISTORY: Transient ischemic attack. COMPARISON STUDY: No priors. TECHNIQUE: Real-time, grayscale, and color Doppler sonography of the carotid arteries is performed. I mages are reviewed in the transverse and longitudinal planes. FINDINGS: Blood pressure in the right arm measures 175/106 and blood pressure in the left arm measures 188/106. The carotid arteries are patent bilaterally and demonstrate antegrade flow. There is no significant a therosclerotic plaque identified. Normal doppler arterial waveforms are seen throughout. Velocity autumn surements are listed below. Common carotid peak systolic velocity (cm/sec): RIGHT: 99 LEFT: 121 ICA proximal peak systolic velocity (cm/sec): RIGHT: 83 LEFT: 84 ICA mid peak systolic velocity (cm/sec): RIGHT: 77 LEFT: 90 ICA distal peak systolic velocity (cm/sec): RIGHT: 71 LEFT: 92 ICA/CC peak systolic ratio: RIGHT: 0.8 LEFT: 0.8 Antegrade flow was shown in the vertebral arteries. The external carotid arteries are patent. IMPRESSION: 1. There is no sonographic evidence of hemodynamically significant stenosis in the right or left [place] tid arterial system. 2. Antegrade flow is shown in the vertebral arteries. Electronically signed by: Alvarez Juan M.D. 08/05/2018 8:29 PM
--- NOTE | 2018-08-05 20:48 | Magnetic Resonance Report ---
MRI OF THE BRAIN WITHOUT IV CONTRAST CLINICAL HISTORY: Transient ischemic attack. COMPARISON STUDY: CT of the brain dated 03/21/2018. TECHNIQUE: MRI of the brain was performed utilizing various T1 and T2-weighted sequences in the axial , sagittal, and coronal planes. IV contrast was not administered for this examination. FINDINGS: Brain parenchyma: The brain parenchyma is normal in appearance. There is no hemorrhage or mass effect . There is no restricted diffusion to suggest acute ischemia. Gonzalez-white matter differentiation is pr eserved. No extra-axial fluid collection is seen. The cerebellar tonsils are normal in configuration. Ventricles, sulci, and cisterns: Normal in configuration. Pituitary and sella: Unremarkable. Intracranial vasculature: Normal flow voids are maintained at the skull base. Orbits: The bony orbits are grossly intact. Orbital contents are normal in appearance. Sinuses and mastoids: Clear. Calvarium: Unremarkable. Cervical cord: Partially visualized cervical spinal cord is normal in morphology and signal intensity . IMPRESSION: No acute intracranial abnormality. Electronically signed by: Alvarez Juan M.D. 08/05/2018 8:47 PM
[2018-08-05] MEDS ORDERED: NovoLOG INSULIN PUMP SCH (21:00)
[2018-08-05] MEDS: SODIUM CHLORIDE 0.9% 1000ML 1,000 ML IV SCH (22:17)
[2018-08-05] MEDS: cloNIDine HCl 0.1 MG TAB PO SCH (22:17)
[2018-08-06] MEDS: HydrALAZINE 10 MG TAB PO PRN ×2 (00:20→06:15)
[2018-08-06] MEDS: SODIUM CHLORIDE 0.9% 1000ML 1,000 ML IV SCH ×3 (05:59→19:41)
[2018-08-06] MEDS: CARBOHYDRATES FOR HYPOGLYCEMIA PO PRN ×2 (06:06→16:44)
--- NOTE | 2018-08-06 06:27 | Ultrasound Report ---
US renal/blad retro comp, US duplex renal artery HISTORY: 33 years-old Male acute kidney injury COMPARISON: Abdominal ultrasound 10/19/2008, CT abdomen and pelvis 03/23/2018 TECHNIQUE: Multiple real-time sonographic images of the kidneys and urinary bladder were obtained ass essing grayscale appearance and color flow. Additionally, color and spectral analysis of the renal va sculature was obtained. FINDINGS: RIGHT: The right kidney measures 11.5 x 5.7 x 5.3 cm and demonstrates no renal calculi, hydronephrosis or leslie spicious mass lesions. Mildly increased echogenicity of the right renal parenchyma. Normal plug flow noted within the aorta. Duplicated right renal artery. Patent renal artery and vein. The arcuate branches appear unremarkable. No elevated peak systolic velocities identified. LEFT: The left kidney measures 11.4 x 6.0 x 5.3 cm and demonstrates no renal calculi, hydronephrosis or sherri picious mass lesions. Mildly increased echogenicity of the left renal parenchyma. Patent renal artery and vein. The arterial branches appear unremarkable. No elevated peak systolic ve locities identified. There is mild wall thickening of the bladder noted measuring up to 4 mm posteriorly. Only the left ur eteral jet identified at this time. IMPRESSION: 1. No renal calculi or hydronephrosis. 2. Mildly increased echogenicity about the bilateral renal parenchyma may reflect underlying medical renal disease. 3. Unremarkable appearance of the bilateral renal vasculature. No evidence of renal arterial stenosis . The above report was generated using voice recognition software. It may contain grammatical, syntax o r spelling errors. Electronically signed by: Asim West M.D. 08/06/2018 6:26 AM
[2018-08-06] MEDS: DEXTROSE 50% 50 ML SYRINGE IV PRN ×2 (06:31→17:24)
[2018-08-06 07:25] LABS: Appearance Urine Clear (Clear); Bilirubin Urine Negative (Negative); Color Urine Yellow; Epithelial Cell Urine Auto >30 /lpf (0-5); Glucose Urine UA Trace (Negative); Ketones Urine Negative (Negative); Leukocyte Esterase Urine Negative (Negative); Nitrite Urine Negative (Negative); Protein Urine 3+ (Negative); Specific Gravity Urine 1.015 (1.000-1.030); Urobilinogen Urine Negative (Negative); pH Urine 6.5 (4.5-7.5)
[2018-08-06] MEDS ORDERED: HYDROmorphone INJ 0.5 MG/0.5 ML SYR IV PRN (07:35)
--- NOTE | 2018-08-06 07:39 | Hospitalist Progress Note ---
Date of Service August 06, 2018 Assessment & Plan (1) JUANA (acute kidney injury): Serum creatinine 3.95 compared to baseline of 1.9 in March 2018. has been on IV fluids and currently 125 cc/hr of normal saline follow up labs for 08/06/18 with creatinine still elevated as 3.99 continue to hold lisinopril. Renal artery duplex / Renal Ultrasound "1. No renal calculi or hydronephrosis. 2. Mildly increased echogenicity about the bilateral renal parenchyma may reflect underlying medical renal disease. 3. Unremarkable appearance of the bilateral renal vasculature. No evidence of renal arterial stenosis." Increase IV fluids from 125 cc/hr to 150 cc/hr Appreciate Nephrology recommendations (2) CKD (chronic kidney disease), stage III: JUANA as discussed above. Ongoing management of CKD per Nephrology. (3) Urinary retention: Patient performs straight caths once a day at home. Straight caths q shift as needed (4) Hypertension: Hold lisinopril due to JUANA. Cobntinue Clonidine 0.1 mg PO BID as started by admitting hospitalist Continue Hydralazine 10 mg QID prn for systolic blood pressure above 160 as started by nocturnalist increase home dose amlodipine from 5 mg daily to 10 mg daily addition of IV fluids may also contribute to hypertension and may need further blood pressure (5) Diabetes mellitus type 1 with complications: Continue management with insulin pump. Check Hgb A1C Pharmacy consulted to follow continue fingerstick glucose to monitor for hypogylcemia If hypoglycemia persists, can consider having patient's insulin pump basal rate turned down versus changing IV fluids for JUANA to include dextrose (6) Diabetic neuropathy: Diabetic neuropathy with Charcot foot/ankle. Neuropathy precautions. Off-loading shoe when out of bed. (7) Nausea and vomiting: Chronic intermittent nausea and vomiting. give antiemetics as needed trial of diet (8) Neurological symptoms: Patient had episode of right hand numbnessand difficulty speaking (? expressive aphasia) 2 days prior to admission with Symptoms were associated with hypoglycemia Admission imaging studies without evidence for stroke Brain MRI No acute intracranial abnormality Carotid dopplers 1. There is no sonographic evidence of hemodynamically significant stenosis in the right or left carotid arterial system. 2. Antegrade flow is shown in the vertebral arteries. Patient again had hypoglycemic episode on 08/06/18 with malaise and likely his previous neurological symptoms were due to hypoglycemia (9) DVT prophylaxis: Low risk for DVT (0.5% per IMPROVE Predictive Risk Model). Prophylaxis not indicated. Ambulate. Reassess risk if status changes. (10) Discharge planning issues: Patient will need follow ups with the following: Family Medicine follow-up with Dr. Singh. Nephrology follow-up with Dr. Bains. Subjective Patient was recently NPO because of going to renal ultrasound imaging. As per nurse, after patient returned he was noted to be diaphoretic. The glucose was recorded as 42 and mildly increased to 47 and so dextrose was pushed. The subsequent reported glucose is 180. On exam at bedside, patient awake and alert. Reports headache. Denies neck pain. Denies fevers or subjective warmth Denies chest pain or shortness of breath or abdominal pain. Reports that he has been able to urinate. Patient reports that recently prior to hospitalization, he had already went down on the basal insulin rate by 10% from insulin pump IV fluids are running for acute kidney injury and patient's blood pressure elevated Physical Exam 2 Vital Signs (Past 24 Hours): Last Vital Signs Temp 37.0 C 08/06/18 05:54 Pulse 73 08/06/18 06:13 Resp 17 08/06/18 05:54 BP 185/102 H 08/06/18 06:13 Pulse Ox 100 08/06/18 06:13 Constitutional: WD/WN, vitals as above Eyes: PERRL, conjunctivae normal, anicteric sclerae EOM intact bilaterally ENMT: external ear and nose normal, oropharynx normal Neck: normal visual inspection and trachea midline Respiratory: normal respiratory effort, lungs clear to auscultation Cardiovascular: RRR, no murmur, no edema Gastrointestinal (Abdomen): normal bowel sounds, soft, nontender, no hepatosplenomegaly (presence of insulin pump) Musculoskeletal: Head/Neck/Chest: normocephalic and head atraumatic Extremities: extremities normal to inspection (right foot sensitive to touch secondary to Charcot foot) Neurologic: PERRL, EOMI, accommodation nl, no face palsy, no dysarthria CN' s II-XI intact bilaterally _ (1) Diabetic neuropathy Diabetes mellitus complication detail: diabetic polyneuropathy Diabetes mellitus type: type 1 Qualified Code(s): E10.42 - Type 1 diabetes mellitus with diabetic polyneuropathy (2) Nausea and vomiting Vomiting Intractability: unspecified Vomiting type: unspecified Qualified Code(s): R11.2 - Nausea with vomiting, unspecified (3) Hypertension Hypertension type: unspecified Qualified Code(s): I10 - Essential (primary) hypertension
[2018-08-06 07:43] LABS: Creatinine Urine Random 68.5 mg/dl
[2018-08-06 07:56] LABS: BUN Creatinine Ratio 11.9 (10-20); Calcium 8.1 mg/dl (8.5-10.1); Creatinine Clr Calc Pharmacy 25.2 ml/min; Est GFR (African American) 21.3; Est GFR (Non-African American) 18.3; Potassium 4.4 mmol/L (3.5-5.1)
[2018-08-06] MEDS: CHOLECALCIFEROL 1,000 UNITS TAB PO SCH (07:58)
[2018-08-06] MEDS: cloNIDine HCl 0.1 MG TAB PO SCH ×2 (07:58→20:32)
[2018-08-06] MEDS ORDERED: ONDANSETRON INJ 2 MG/ML 2 ML VIAL IV PRN (08:01)
[2018-08-06 08:12] LABS: Estimated Average Glucose 209 mg/dl
[2018-08-06 08:14] LABS: Bacteria Urine Automated 1+ (Negative)
[2018-08-06] MEDS: AMLODIPINE BESYLATE 5 MG TAB PO SCH (08:23)
[2018-08-06] MEDS: NovoLOG INSULIN PUMP SCH ×4 (08:24→20:45)
[2018-08-06] MEDS ORDERED: AMLODIPINE BESYLATE 5 MG TAB PO SCH (09:00)
--- NOTE | 2018-08-06 09:00 | Nephrology Consultation ---
Date of Consultation August 06, 2018 Assessment & Plan (1) JUANA (acute kidney injury): nonoliguric JUANA on CKD 3 w/ nephrotic syndrome versus ckd progression. his renal function has progressed quite quickly over the past year. baseline creatinine mid 2's in 2018 and was 4.2 on labs prior to admission, 4.0 on presentation. no radiographic evidence of obstruction, though pt does have chronic urinary retention. admission urine sediment remarkable for proteinuria, nephrotic range , was >5 gm as outpt. has had prerenal JUANA in the past including during hospital stay earlier this year. not oliguric. look for reversible causes, ensure CIC happening. chemistries acceptable though does have mild hyperkalemia , mild hyepr chloremia and elevated bicarb -cont aggressive fluids as tolerated -- bp improved and no worsening OL on exam ; stop these this evening -will order low K diet -daily bmp -for now hold acei Present on Admission?: Yes (2) CKD (chronic kidney disease), stage III: baseline had been mid 2's creat for eGFR just above 30 in 2018 until as recently as april. of note he had creatinine in mid ones in 2017 w/ drop off/ rpid progression from eGFR in 50s in 2017 > low 30s in just a year. ckd from dm, htn, nephrotic syndrome. high risk for esrd in his lifetime Present on Admission?: Yes (3) Urinary retention: continue cic per urology recommendations Present on Admission?: Yes (4) Hypertension: labile bp >> for now tolerating clonidine and 10 mg daily amlodipine; cont for now to hold acei; cont ivf for now; goal sbp is consistent reading in 140-150s systolic -ensure <2 gm daily Na diet Present on Admission?: Yes History of Present Illness Reason for Consultation: JUANA on CKD Requesting Physician: Dr Galvez Attending Physician: Darnell Awan MD History of Present Illness 33 y/o M whom I sent to ER yesterday d/t worsening renal function, uncontrolled blood pressures, nephrotic syndrome, uncontrolled blood glucose. PMH includes rapidly progressive ckd3 w/ 2-5 gm proteinuria secondary to DM, tobacco use, chronic urinary retention; also w/ active tobacco abuse, charcot foot after nonhealing diabetic foot wound, labile HTN. DM since age 13 w/ retinopathy and hypoglycemic unawareness. When I saw him in clinic on 08/04, his blood pressure was 180/100; he had no specific complaints but did report episode the day before in which whether from low BG or unctontrolled bp he was unable to speak intelligibly and had focal hand weakness for about 15 min. On labs, his creatinine had increased from 2.5 in April to 4.2 and his blood sugar was 39. He also reported another [facility]; states he was told needed no further eval. On arrival to ER he was started on NS at 150 mL hourly; his blood pressure has been labile, ranging from 170-180s on presentation to 130s currently. Allergies Allergy/AdvReac Type Severity Reaction Status Date / Time No Known Allergies Allergy Verified 08/05/18 15:12 Home Medications Home Medications Medication Instructions Recorded Confirmed Type amlodipine 5 mg PO DAILY 08/05/18 08/05/18 History cholecalciferol (vitamin D3) 5,000 units PO DAILY 08/05/18 08/05/18 History [Vitamin D3] insulin aspart U-100 [Novolog 1 sliding scale dose CONTINUOUS 08/05/18 08/05/18 History U-100 Insulin aspart] SUBCUTANEOUS INFUSION UD lisinopril 2.5 mg PO DAILY 08/05/18 08/05/18 History Patient History Medical History Fatty liver (Chronic) Charcot foot due to diabetes mellitus (Chronic) Nausea and vomiting (Chronic) Urinary retention (Chronic) CKD (chronic kidney disease), stage III (Chronic) Diabetic nephropathy (Chronic) Diabetic neuropathy (Chronic) Diabetic retinopathy (Chronic) 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) Anemia (Chronic) Hypertension (Chronic) Surgical History Hx of eye surgery Social History Current Living Situation: Alone Feels Safe at Home: Yes Safety Concerns: Feels Safe At This Time Smoking Status: Former smoker Hx Alcohol Use: No Hx Substance Use: No Beliefs That Will Affect Care: None Preferred Language: German Communication Ability: Effective 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 Review of Systems Constitutional: + fatigue; no fever and no body aches Eyes: no worsening vision Ear, Nose, Mouth, Throat: no dry mouth Respiratory: no cough and no dyspnea Cardiovascular: + edema; no chest pain, no dyspnea on exertion and no palpitations Gastrointestinal: no abdominal pain, no vomiting and no change in bowel habits Genitourinary (Male): + difficulty urinating; no urinary frequency and no hematuria straight caths once daily not bid as had been advised Musculoskeletal: + swelling; no back pain and no myalgia Integumentary: no rash and no skin ulcer Neurologic: as per Subjective / HPI, + loss of sensation and + paresthesia; no tremor(s) Psychiatric: no behavioral changes and no depression Endocrine: + fatigue Hematologic / Lymphatic: no easy bleeding Physical Exam 2 Vital Signs (Past 24 Hours): Last Vital Signs Temp 36.9 C 08/06/18 07:49 Pulse 73 08/06/18 07:49 Resp 18 08/06/18 07:49 BP 176/93 H 08/06/18 07:49 Pulse Ox 97 08/06/18 07:49 Constitutional: well developed, well nourished and + frail appearing; no acute distress chronically ill appearing; on RA lying flat, A&0 x 3 Eyes: EOM intact bilaterally ENMT: Ears: no external ear abnormality Nose: no external nose abnormality Mouth: + dry oral mucous membranes Neck: no nuchal rigidity Respiratory: normal respiratory effort Auscultation: + diminished lung sounds Cardiovascular: Rate/Rhythm: regular rate and regular rhythm Extremities: + edema (1-2+) Gastrointestinal (Abdomen): Inspection/Auscultation: normal bowel sounds Percussion/Palpation: abdomen soft; abdomen nontender Musculoskeletal: Extremities: strength 5/5 throughout Skin: no rashes, warm and dry + pallor Neurologic: soria, fluent speech, no tremor Psychiatric: Orientation: alert and oriented x 3 Eye Contact: + fair eye contact Speech: normal rate/rhythm/volume of speech Affect: + flat affect Genitourinary: no solorzano Results & Data Laboratory Results Abnormal lab results 08/05/18 08/05/18 08/06/18 Range/Units 15:14 15:14 06:04 RBC 3.53 L (4.7-6.1) M/uL Hgb 10.4 L (14.0-18.0) g/dL Hct 30.4 L (42-52) % Lymph # (Auto) 0.94 L (1.2-3.4) K/uL BUN 51 H (7-18) mg/dl Creatinine 3.95 H (0.6-1.4) mg/dl Glucose (70-99) mg/dl POC Glucose 42 L* (70-99) Hemoglobin A1c (4.5-5.6) % Calcium 8.4 L (8.5-10.1) mg/dl Magnesium 2.6 H (1.8-2.4) mg/dl AST 14 L (15-37) U/L Total Protein 6.3 L (6.4-8.2) gm/dl Albumin 2.5 L (3.4-5.0) gm/dl Albumin/Globulin Ratio 0.7 L (0.9-2) Triglycerides (0-150) mg/dl Cholesterol (0-200) mg/dl Urine Protein (Negative) Urine Glucose (UA) (Negative) Urine Blood (Negative) Urine WBC (Auto) (0-5) /hpf U Epithel Cells (Auto) (0-5) /lpf Urine Bacteria (Auto) (Negative) 08/06/18 08/06/18 08/06/18 Range/Units 06:24 06:52 06:52 RBC (4.7-6.1) M/uL Hgb (14.0-18.0) g/dL Hct (42-52) % Lymph # (Auto) (1.2-3.4) K/uL BUN 48 H (7-18) mg/dl Creatinine 3.99 H (0.6-1.4) mg/dl Glucose 168 H (70-99) mg/dl POC Glucose 47 L* (70-99) Hemoglobin A1c 8.9 H (4.5-5.6) % Calcium 8.1 L (8.5-10.1) mg/dl Magnesium (1.8-2.4) mg/dl AST (15-37) U/L Total Protein (6.4-8.2) gm/dl Albumin (3.4-5.0) gm/dl Albumin/Globulin Ratio (0.9-2) Triglycerides 151 H (0-150) mg/dl Cholesterol 211 H (0-200) mg/dl Urine Protein (Negative) Urine Glucose (UA) (Negative) Urine Blood (Negative) Urine WBC (Auto) (0-5) /hpf U Epithel Cells (Auto) (0-5) /lpf Urine Bacteria (Auto) (Negative) 08/06/18 08/06/18 08/06/18 Range/Units 06:53 07:49 Unknown RBC (4.7-6.1) M/uL Hgb (14.0-18.0) g/dL Hct (42-52) % Lymph # (Auto) (1.2-3.4) K/uL BUN (7-18) mg/dl Creatinine (0.6-1.4) mg/dl Glucose (70-99) mg/dl POC Glucose 180 H 137 H (70-99) Hemoglobin A1c (4.5-5.6) % Calcium (8.5-10.1) mg/dl Magnesium (1.8-2.4) mg/dl AST (15-37) U/L Total Protein (6.4-8.2) gm/dl Albumin (3.4-5.0) gm/dl Albumin/Globulin Ratio (0.9-2) Triglycerides (0-150) mg/dl Cholesterol (0-200) mg/dl Urine Protein 3+ H (Negative) Urine Glucose (UA) Trace H (Negative) Urine Blood Trace H (Negative) Urine WBC (Auto) 5-10 H (0-5) /hpf U Epithel Cells (Auto) >30 H (0-5) /lpf Urine Bacteria (Auto) 1+ H (Negative) Diagnostic Findings Renal u/s and duplex RIGHT: The right kidney measures 11.5 x 5.7 x 5.3 cm and demonstrates no renal calculi , hydronephrosis or suspicious mass lesions. Mildly increased echogenicity of the right renal parenchyma. Normal plug flow noted within the aorta. Duplicated right renal artery. Patent renal artery and vein. The arcuate branches appear unremarkable. No elevated peak systolic velocities identified. LEFT: The left kidney measures 11.4 x 6.0 x 5.3 cm and demonstrates no renal calculi, hydronephrosis or suspicious mass lesions. Mildly increased echogenicity of the left renal parenchyma. Ptent renal artery and vein. The arterial branches appear unremarkable. No elevated peak systolic velocities identified. There is mild wall thickening of the bladder noted measuring up to 4 mm posteriorly. Only the left ureteral jet identified at this time. IMPRESSION: 1. No renal calculi or hydronephrosis. 2. Mildly increased echogenicity about the bilateral renal parenchyma may reflect underlying medical renal disease. 3. Unremarkable appearance of the bilateral renal vasculature. No evidence of renal arterial stenosis. Brain MRI > no acute process Carotid u/s > no hemodynamically significant stenosis _ (1) Hypertension Hypertension type: unspecified Qualified Code(s): I10 - Essential (primary) hypertension
[2018-08-06 13:35] LABS: Creatinine Clr Calc Pharmacy 25.5 ml/min; Est GFR (African American) 21.5; Est GFR (Non-African American) 18.6; Potassium 5.3 mmol/L (3.5-5.1)
[2018-08-06] MEDS: CLOPIDOGREL BISULFATE 75 MG TAB PO SCH (13:58)
--- NOTE | 2018-08-06 14:16 | Pharmacy Report ---
Glycemic Control Consultation - Date of Service August 06, 2018 - Scope Scope: Glycemic Pharmacist consulted by Dr Galvez on 08/05/18 for glycemic control and to write orders per [facility] inpatient glycemic control protocol - Objective Weight: 68.4 kg Accuchecks BSG (last 24hrs): 08/05/18 08/06/18 08/06/18 15:14 06:04 06:24 Glucose 90 POC Glucose 42 L* 47 L* 08/06/18 08/06/18 08/06/18 06:52 06:53 07:49 Glucose 168 H POC Glucose 180 H 137 H 08/06/18 08/06/18 11:27 12:53 Glucose 127 H POC Glucose 106 H Laboratory Data (last 24hrs): 08/05/18 08/06/18 08/06/18 15:14 06:52 12:53 Potassium 4.6 4.4 5.3 H D Carbon Dioxide 28 26 29 Anion Gap 5.0 7.0 2.0 L Creatinine 3.95 H 3.99 H 3.95 H Est Cr Clr Drug Dosing 26.1 25.2 25.5 HbA1c: Hemoglobin A1c 8.9 % (4.5-5.6) H 08/06/18 06:52 - Recent Pertinent Medications Outpatient Anti-diabetic Regimen: * Novolog insulin pump * Basal: 1576-2120 0.75 units/hr, 4070-6355 0.925 units/hr * Goal range: 100-150 mg/dL * CF 40 mg/dL/unit * CR: 1 unit for every 11 gm CHO * A1c = 8.9 % 08/06/18 - Assessment & Plan Assessment & Plan: ASSESSMENT: * Mr. Hicks is a 33 yr old T1DM male managed with a Novolog insulin pump. He was hypoglycemic on admission; BSG in the 30s. * He reported to the ED Pharmacist that his BSGs have been 60 mg/dL or lower during the last few days. * It was ordered for the patient to continue self management of his insulin pump while admitted. Pharmacy was requested to follow patient. * Xavier decreased his basal rate by 10% last evening. Despite this, he did have an episode of hypoglycemia early this morning, BSG = 42 mg/dL. I spoke with Xavier who confirmed that he last bolused himself with 0.4 units around 2100 on 08/05. This leads me to believe that this basal rate remains too high. He remains in acute kidney injury, which may be contributing to hypoglycemia. I advised him to decrease his basal rate another 10%, which he agreed to do. PLAN FOR INPATIENT GLYCEMIC CONTROL: Pt is to manage BSGs with insulin pump per outpatient settings. * Basal rate is currently at 80% of home rate * RN will have patient read and sign agreement CF 006 Insulin Pump Therapy Patient Agreement. * RN will provide and explain form NS-824 Flowsheet for Patient * Patient will document their insulin dose given on NS-824 which is kept at the bedside, available to caregivers upon request, and which becomes part of the permanent medical record. If at any time the patients condition evidences that he/she is not able to manage the insulin pump (i.e. frequent hypo/hyperglycemia) Pharmacy will assume glycemic control by discontinuing the pump & managing with SQ basal bolus insulin regimen for the interim. Thank you.
--- NOTE | 2018-08-06 15:00 | Consultation Report ---
DATE OF CONSULTATION: 08/06/2018 HISTORY OF PRESENT ILLNESS: Xavier is 33 years old, he is a patient known to Dr. Singh in [place]. He also follows with Dr. Klelie Bains for nephrology. He has longstanding type 1 diabetes diagnosed at age 13, currently managed by insulin pump. Diabetes is complicated by retinopathy requiring triple therapy several years ago, neuropathy, and nephropathy. The neuropathy has been associated with Charcot foot and ankle issues, now on the right more than left, and is also complicated by hypertension and stage III renal disease with a baseline creatinine of 2 plus and minus. He presented for a routine visit to nephrology clinic yesterday. Labs revealed a creatinine of 4.2 compared to 2.5. He is referred for management of acute kidney injury. According to the chart and the patient, he seems to have had fairly good control of his blood glucose. He keeps his fluids up, but he does have some chronic urinary retention managed by straight catheter once a day. He does not really measure his urine output, but he did not think of any changes, and he denies the use of any nonsteroidal antiinflammatory agents as he has been counseled against them very carefully. 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 He managed to get the lid off and drank the fluid, but then several minutes later, he had trouble enunciating words, formulating thoughts, and the hand numbness persisted throughout this. Customers in the store apparently were a little irritated by him thinking he was "making fun of them" but did not have sufficient concernt to suggest that the cytogenetics laboratory manager 911, and everything passed in about 10 minutes. He did not have a headache after this, but on the day of admission from nephrology clinic, did develop a generalized headache, which he thinks are typical for his "migraines" . He apparently does get these headaches periodically but has never had an aura with them. Currently the headache is improving as his blood pressure began to drop. PAST MEDICAL HISTORY: Otherwise reveals fatty liver due to nonalcoholic steatohepatitis, Charcot foot on the right, there is diabetic neuropathy, chronic nausea and vomiting, chronic urinary retention, chronic kidney disease stage III, diabetic nephropathy, retinopathy, and neuropathy, type 1 diabetes, on insulin pump, anemia, and hypertension. PAST SURGICAL HISTORY: Reveals surgery on both eyes for the retinopathy. Otherwise, there had been no significant surgical procedures. 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 He is a nonsmoker though he smoked in the past. He does not consume ethanol. He lives at home. He is single. FAMILY HISTORY: Noncontributory. He denies any other family members suffering from migraines. REVIEW OF SYSTEMS: Reveals no recent fevers, sweats, chills, weight loss, weight gain. He had no visual issues accompanying the hand numbness or the speech issue. He had not had any cough, hemoptysis, chest pain, palpitations, near syncopal events, increased nausea, vomiting, or abdominal pain and has not had any more issues with the neuropathy in his feet or hands. His blood sugars have generally been fairly stable, and the lowest it got was 48 on the day of the neurologic event, which was several days prior to the current admission actually. PHYSICAL EXAMINATION: VITAL SIGNS: On admission to the hospital, his blood pressure is 170/103, and it remains elevated to a similar degree, and there are no significant findings now of coming down, and his headache seems to be improving. His temperature was 36.5, pulse was 91. Monitors have not shown any irregularities. Pulse oximetry was 97%. GENERAL: He is a thin and well-developed white male, did not appear to be in any acute distress. HEENT: Ocular fundi were poorly seen. Pupils were equal, round, and reactive to light. Facial motility, strength, and dentition were normal. NECK: Supple. No bruits were heard. RESPIRATORY: Lungs were clear. CARDIOVASCULAR: Heart had a regular rhythm. There was some bilateral edema of the legs that got worse in the right, and he does have a restrictive orthopedic boot on the right foot. There are no skin lesions. NEUROLOGIC: He is awake, alert, and oriented in 3 spheres. Eye movements are normal. Visual rivas are normal. Facial motility and strength normal. Speech is clear. Tongue protrudes in the midline. I do not hear any bruits. There is no drift or pronation sign in the upper extremities. Rapid repetitive motions is normal in the upper extremities and normal lowers allowing for his right foot being somewhat restricted due to the walking boot. He is areflexic at the ankles and knees. Normal reflex in the upper extremities. Toes are downgoing. No Melissa signs are seen. Strength testing is normal, and sensation reveals vibration, light touch, and temperature reduction over the distal lower extremities in a symmetrical fashion. May be perhaps slightly worse on the right and spares the upper extremities. Imaging studies including MRI have shown no evidence for acute infarction or significant prior episodes, and a duplex of the carotids shows no significant disease. Echocardiographic studies have not been done, and monitoring has shown no atrial fibrillation at least to the best of my ability to determine this. The event 3 days ago is certainly suspicious for a left hemispheric localization and probably was of vascular origin. It was not followed by a migraine, and the patient despite his history of having migraines in the past when he was admitted denies that he really gets these very frequently and certainly denies any classic migraine phenomenon in the past. He certainly has vascular risk factors which are diabetes, hypertension, renal dysfunction, etc. At this point, I think we need to consider this event a nonmigrainous tia andhe should be on some form of antiplatelet anticoagulation until we could do some further studies. I would place him on Plavix, which would take the nonsteroidal risk out of the picture, and I did talk to Dr. Awan, his current attending about this. I would get an echocardiogram,. I think this is going to be done, and he is going to be monitored to see if he is in and out of atrial fibrillation, which he is also at risk for based on his vascular risk factors and hypertension. At some point in the future, if his renal function is adequate, it would be nice to get some form of contrast study of his intracranial vasculature, but I am not sure if this is going to be possible as his baseline creatinine probably is well above what we normally expect as safe for either CTA or MRA. To some degree this is academic,as if he had intracranial disease, we would only use antiplatelet agents anyway. The major issue here now is whether he has a cardiogenic source of embolization and/or whether he may be going in and out of atrial fibrillation, and hopefully the monitoring studies during this hospital stay will answer the latter question. If not, we may have to have him have a Zio patch for 2 weeks after discharge. Clearly the nature of his anticoagulation program would change if there is an intracardiac source for emboli or hei has paroxysmal atrial fibrillation I will either stop by and see him through the weekend or review his chart via the EMR and will parts picker his case certainly on Wednesday. For now, I have no further suggestions. MONIKA
[2018-08-06] MEDS ORDERED: SODIUM POLYSTYRENE SULFONATE 15G/60ML SUSP PO STA (15:59)
[2018-08-06] MEDS ORDERED: INSULIN ASPART 100 UNITS/ML 3 ML PEN SC STA (19:15)
[2018-08-06 20:34] LABS: BUN Creatinine Ratio 10.9 (10-20); Calcium 7.7 mg/dl (8.5-10.1); Creatinine Clr Calc Pharmacy 23.4 ml/min; Est GFR (African American) 19.4; Est GFR (Non-African American) 16.8
[2018-08-07] MEDS: SODIUM CHLORIDE 0.9% 1000ML 1,000 ML IV SCH (02:06)
[2018-08-07 06:47] LABS: Basophils # (auto) 0.09 K/uL (0-0.2); Basophils % (auto) 2.1 %; Eosinophils # (auto) 0.16 K/uL (0-0.5); Eosinophils % (auto) 3.7 %; Hematocrit (blood only) 24.8 % (42-52); Hemoglobin 8.4 g/dL (14.0-18.0); Immature Granulocytes # (auto) 0.01 K/uL (0.00-0.02); Immature Granulocytes % (auto) 0.2 %; Lymphocytes # (auto) 1.64 K/uL (1.2-3.4); Lymphocytes % (auto) 37.9 %; Mean Corpuscular Hgb Conc 33.9 g/dL (32-36); Mean Corpuscular Volume 87.6 fL (80-100); Monocytes # (auto) 0.49 K/uL (0.11-0.59); Monocytes % (auto) 11.3 %; Neutrophils # (auto) 1.94 K/uL (1.4-6.5); Neutrophils % (auto) 44.8 %; Platelet Count 200 K/uL (130-400); RDW Coefficient of Variation 13.7 % (11.5-14.5); RDW Standard Deviation 44.8 fL (36.4-46.3); Red Blood Count 2.83 M/uL (4.7-6.1); White Blood Count 4.33 K/uL (4.8-10.8)
[2018-08-07 07:15] LABS: BUN Creatinine Ratio 11.3 (10-20); Calcium 7.8 mg/dl (8.5-10.1); Creatinine Clr Calc Pharmacy 27.2 ml/min; Est GFR (African American) 21.5; Est GFR (Non-African American) 18.6; Potassium 4.6 mmol/L (3.5-5.1)
[2018-08-07 07:34] LABS: RBC Morphology Unremarkable
[2018-08-07] MEDS: cloNIDine HCl 0.1 MG TAB PO SCH (08:47)
[2018-08-07] MEDS: CLOPIDOGREL BISULFATE 75 MG TAB PO SCH (08:47)
[2018-08-07] MEDS: AMLODIPINE BESYLATE 5 MG TAB PO SCH (08:48)
[2018-08-07] MEDS: CHOLECALCIFEROL 1,000 UNITS TAB PO SCH (08:48)
[2018-08-07] MEDS: NovoLOG INSULIN PUMP SCH ×4 (08:55→21:22)
--- NOTE | 2018-08-07 10:40 | Nephrology Progress Note ---
Date of Service August 07, 2018 Assessment & Plan (1) CKD (chronic kidney disease) stage 4, GFR 15-29 ml/min: no evidence that worsened renal function at this point is other than CKD progression from DM nephropathy and uncontrolled HTN. no obstruction, no change in urine sediement, no response unfortunately to fluid resuscitation. -d/c IVF -will discuss ESRD planning classes w/ him tomorrow -stressed importance of CIC, control of DM, HTN -cont low K diet Present on Admission?: Yes (2) Nephrotic syndrome due to diabetes mellitus: -start low dose lily, start diuretic Present on Admission?: Yes (3) Hypertension: labile bp reported at admission though pt consistently denies sx >> for now tolerating clonidine and 10 mg daily amlodipine; aim for sbp 130-140s systolic though true goal is <130 consistently systolic -cont <2 gm Na diet now and at d/c > pls educate if indicated -will resume lisinopril at 5 mg daily -will also give low dose torsemide -cont amlodipine and clonidine for now -diuretic/acei indicated d/t nephrotic syndrome (4) Urinary retention: continue cic bid per urology recommendations (5) Anemia in chronic kidney disease (CKD): will check iron stores in am; may need anemia clinic referral after d/c for consideration of epo -check stool card and folate, [id number] if indcated Present on Admission?: Yes Subjective getting up/down to bathroom w/o issues or orthostatic sx. has had a few hypoglycemic episodes this admission w/o awareness, as was happening prior to admission. no f/c or poor appetite. no musculoskeletal pain; no sob or cough ; no palpitations or chest pain and stable chronic edema. no n/v/d/c/abd pain; no voiding complaints except to state finds [facility] catheters uncomfortalbe >> doing CIC bid currently in house. no rash; no recurrent speech defects or focal numbness/weakness. Physical Exam 2 Vital Signs (Past 24 Hours): Last Vital Signs Temp 36.6 C 08/07/18 07:52 Pulse 65 08/07/18 07:52 Resp 18 08/07/18 07:52 BP 155/95 H 08/07/18 07:52 Pulse Ox 97 08/07/18 07:52 Constitutional: well developed, well nourished and + frail appearing; no acute distress A&0 x 3, maneuvers readily for exam Eyes: EOM intact bilaterally ENMT: Ears: no external ear abnormality Nose: no external nose abnormality Mouth: + dry oral mucous membranes Neck: no nuchal rigidity Respiratory: normal respiratory effort Auscultation: + diminished lung sounds Cardiovascular: Rate/Rhythm: regular rate and regular rhythm Extremities: + edema (trace-1+) Gastrointestinal (Abdomen): Inspection/Auscultation: normal bowel sounds Percussion/Palpation: abdomen soft; abdomen nontender Musculoskeletal: Extremities: strength 5/5 throughout wearing boot R foot Skin: no rashes, warm and dry + pallor Psychiatric: Orientation: alert and oriented x 3 Eye Contact: + fair eye contact Speech: normal rate/rhythm/volume of speech Affect: + flat affect Results & Data Laboratory Results Abnormal lab results 08/06/18 08/06/18 08/06/18 Range/Units 11:27 12:53 16:41 WBC (4.8-10.8) K/uL RBC (4.7-6.1) M/uL Hgb (14.0-18.0) g/dL Hct (42-52) % ESR (0-14) mm/hr Potassium 5.3 H D (3.5-5.1) mmol/L Chloride 108 H (98-107) mmol/L Anion Gap 2.0 L (3-11) BUN 48 H (7-18) mg/dl Creatinine 3.95 H (0.6-1.4) mg/dl Glucose 127 H (70-99) mg/dl POC Glucose 106 H 52 L* (70-99) Calcium 8.0 L (8.5-10.1) mg/dl 08/06/18 08/06/18 08/06/18 Range/Units 16:41 17:02 17:47 WBC (4.8-10.8) K/uL RBC (4.7-6.1) M/uL Hgb (14.0-18.0) g/dL Hct (42-52) % ESR (0-14) mm/hr Potassium (3.5-5.1) mmol/L Chloride (98-107) mmol/L Anion Gap (3-11) BUN (7-18) mg/dl Creatinine (0.6-1.4) mg/dl Glucose (70-99) mg/dl POC Glucose 54 L* 57 L* 203 H (70-99) Calcium (8.5-10.1) mg/dl 08/06/18 08/06/18 08/06/18 Range/Units 18:43 20:02 20:46 WBC (4.8-10.8) K/uL RBC (4.7-6.1) M/uL Hgb (14.0-18.0) g/dL Hct (42-52) % ESR (0-14) mm/hr Potassium (3.5-5.1) mmol/L Chloride (98-107) mmol/L Anion Gap (3-11) BUN 47 H (7-18) mg/dl Creatinine 4.30 H D (0.6-1.4) mg/dl Glucose 203 H (70-99) mg/dl POC Glucose 246 H 177 H (70-99) Calcium 7.7 L (8.5-10.1) mg/dl 08/07/18 08/07/18 08/07/18 Range/Units 06:17 06:17 06:17 WBC 4.33 L (4.8-10.8) K/uL RBC 2.83 L (4.7-6.1) M/uL Hgb 8.4 L (14.0-18.0) g/dL Hct 24.8 L (42-52) % ESR 36 H (0-14) mm/hr Potassium (3.5-5.1) mmol/L Chloride 110 H (98-107) mmol/L Anion Gap (3-11) BUN 45 H (7-18) mg/dl Creatinine 3.95 H D (0.6-1.4) mg/dl Glucose 101 H (70-99) mg/dl POC Glucose (70-99) Calcium 7.8 L (8.5-10.1) mg/dl 08/07/18 Range/Units 07:29 WBC (4.8-10.8) K/uL RBC (4.7-6.1) M/uL Hgb (14.0-18.0) g/dL Hct (42-52) % ESR (0-14) mm/hr Potassium (3.5-5.1) mmol/L Chloride (98-107) mmol/L Anion Gap (3-11) BUN (7-18) mg/dl Creatinine (0.6-1.4) mg/dl Glucose (70-99) mg/dl POC Glucose 107 H (70-99) Calcium (8.5-10.1) mg/dl _ (1) Hypertension Hypertension type: unspecified Qualified Code(s): I10 - Essential (primary) hypertension (2) Anemia in chronic kidney disease (CKD) Chronic kidney disease stage: stage 4 (severe) Qualified Code(s): N18.4 - Chronic kidney disease, stage 4 (severe); D63.1 - Anemia in chronic kidney disease
[2018-08-07] MEDS ORDERED: LISINOPRIL 5 MG TAB PO ONE (10:43)
[2018-08-07] MEDS ORDERED: TORSEMIDE 20 MG TAB PO SCH (10:45)
--- NOTE | 2018-08-07 12:51 | Hospitalist Progress Note ---
Date of Service August 07, 2018 Assessment & Plan (1) JUANA (acute kidney injury): Serum creatinine 3.95 compared to baseline of 1.9 in March 2018. Renal artery duplex / Renal Ultrasound "1. No renal calculi or hydronephrosis. 2. Mildly increased echogenicity about the bilateral renal parenchyma may reflect underlying medical renal disease. 3. Unremarkable appearance of the bilateral renal vasculature. No evidence of renal arterial stenosis." despite being on continuous IV fluids between 125 to 150 cc/hr the renal function has not improved and currently the creatinine is still 3.95 as of 08/07 Nephrology service 08/07/18 now describing the acute kidney injury as progression of chronic kidney disease from DM nephropathy and uncontrolled hypertension IV fluids have been stopped and nephrology service giving lisinopril at 5 mg daily and give low dose torsemide on 08/07/18 (2) CKD (chronic kidney disease), stage III: JUANA as discussed above and that this is progression from chronic kidney disease stage III to chronic kidney disease stage IV (3) Urinary retention: Patient performs straight caths once a day at home. Straight caths q shift as needed (4) Hypertension: Continue Hydralazine 10 mg QID prn for systolic blood pressure above 160 as started by nocturnalist continue amlodipine 10 mg daily clonidine stopped and lisinopril 5 mg daily (5) Diabetes mellitus type 1 with complications: Diabetes mellitus type I on insulin pump and complicated by hypoglycemia Hgb A1C 8.9 currently patient is on 70% of usual basal Lantus rate continue fingerstick glucose to monitor for hypogylcemia (6) Diabetic neuropathy: Diabetic neuropathy with Charcot foot/ankle. Neuropathy precautions. Off-loading shoe when out of bed. (7) Nausea and vomiting: Chronic intermittent nausea and vomiting. give antiemetics as needed diet as tolerated (8) Neurological symptoms: Patient had episode of right hand numbnessand difficulty speaking (? expressive aphasia) 2 days prior to admission with Symptoms were associated with hypoglycemia Admission imaging studies without evidence for stroke Brain MRI No acute intracranial abnormality Carotid dopplers 1. There is no sonographic evidence of hemodynamically significant stenosis in the right or left carotid arterial system. 2. Antegrade flow is shown in the vertebral arteries. Patient again had hypoglycemic episode on 08/06/18 with malaise and likely his previous neurological symptoms were due to hypoglycemia However Neurology started patient on Plavix in case patient had Transient Ishcemic Attack prior to hospitalization although workup to date with normal sinus rhythm on telemetry and echocardiogram performed on this admission with noraml EF of 57% and no evidence for atrial septal defect While a diagnosis of TIA is still not strongly supported with current evidence, will give plavix 75 mg for now which was started on 08/06/18 just in case in regards to neurology service assessment will continue to monitor on telemetry for now because of hypoglycemia risks and to see if any cardiac telemetry events (9) DVT prophylaxis: Anemia monitor blood counts while on Plavix downtrending Hgb likely hemodilutional and that anemia likely due to Chronic kidney disease send FOBT when available iron studies to be sent Low risk for DVT (0.5% per IMPROVE Predictive Risk Model). Prophylaxis not indicated. Ambulate. (10) Discharge planning issues: Patient will need follow ups with the following: Family Medicine follow-up with Dr. Singh. Nephrology follow-up with Dr. Bains. Subjective Yesterday around 4:30 PM, patient had second recorded episode of hypoglycemia and was given D50 which elevated his blood sugar to above 200. Patient was asked to turn down the basal rate of insulin pump another 10% so that it is 30 % less than usual baseline So far as of 08/07/18, there are not yet episodes of hypoglycemia On exam at bedside, patient awake and alert. Reports headache. Denies neck pain. Denies fevers or subjective warmth Denies chest pain or shortness of breath or abdominal pain. Reports that he has been able to urinate. Gastrointestinal: + nausea and + vomiting; no hematemesis, no constipation, no diarrhea/loose stools, no blood in stools and no melena Genitourinary (Male): + difficulty urinating (chronic urinary retention requiring straight-caths); no dysuria and no hematuria Musculoskeletal: + deformity (Charcot deformities right foot / ankle); no joint pain and no myalgia Neurologic: + headache(s) (migraines) Physical Exam 2 Vital Signs (Past 24 Hours): Last Vital Signs Temp 36.7 C 08/07/18 11:36 Pulse 66 08/07/18 12:27 Resp 16 08/07/18 11:36 BP 149/88 H 08/07/18 12:27 Pulse Ox 98 08/07/18 11:36 Constitutional: WD/WN, vitals as above Eyes: PERRL, conjunctivae normal, anicteric sclerae EOM intact bilaterally ENMT: external ear and nose normal, oropharynx normal Neck: normal visual inspection and trachea midline Respiratory: normal respiratory effort, lungs clear to auscultation Cardiovascular: RRR, no murmur, no edema Gastrointestinal (Abdomen): normal bowel sounds, soft, nontender, no hepatosplenomegaly (presence of insulin pump) Musculoskeletal: Head/Neck/Chest: normocephalic and head atraumatic Extremities: extremities normal to inspection (right foot sensitive to touch secondary to Charcot foot) Neurologic: PERRL, EOMI, accommodation nl, no face palsy, no dysarthria CN' s II-XI intact bilaterally _ (1) Diabetic neuropathy Diabetes mellitus complication detail: diabetic polyneuropathy Diabetes mellitus type: type 1 Qualified Code(s): E10.42 - Type 1 diabetes mellitus with diabetic polyneuropathy (2) Nausea and vomiting Vomiting Intractability: unspecified Vomiting type: unspecified Qualified Code(s): R11.2 - Nausea with vomiting, unspecified (3) Hypertension Hypertension type: unspecified Qualified Code(s): I10 - Essential (primary) hypertension
[2018-08-07 13:48] LABS: BUN Creatinine Ratio 10.7 (10-20); Blood Urea Nitrogen 43 mg/dl (7-18); Carbon Dioxide 26 mmol/L (21-32); Chloride 107 mmol/L (98-107); Est GFR (African American) 21.3; Est GFR (Non-African American) 18.4; Glucose 218 mg/dl (70-99); Potassium 5.6 mmol/L (3.5-5.1); Sodium 138 mmol/L (136-145)
[2018-08-07 13:51] LABS: C Reactive Protein < 0.29 mg/dl (0-0.29); Ferritin 241.2 ng/ml (8-388); Iron 72 mcg/dl (35-175)
[2018-08-07 13:58] LABS: Folate (Folic Acid) 10.73 ng/ml (>5.38)
[2018-08-07] MEDS ORDERED: SODIUM POLYSTYRENE SULFONATE 15G/60ML SUSP PO STA (14:06)
[2018-08-07] MEDS ORDERED: ALBUTEROL 0.5% NEB SOLN 2.5 MG/0.5 ML VIAL NEB STA (14:07)
[2018-08-07] MEDS ORDERED: CALCIUM GLUCONATE 10% 1,000 MG in SODIUM CHLORIDE 0.9% 50 ML IV STA (14:38)
--- NOTE | 2018-08-07 14:51 | Progress Note ---
DATE: 08/07/2018 I saw Xavier today. His headache is gone. His blood pressure is under better control. He has had no more neurologic events. The workup so far reveals no intracardiac source of her emboli, no extracranial vascular disease involving the carotid system, and shows no evidence for a completed infarction on an unenhanced MRI, and clinically, the event in question was very brief duration but was likely a TIA rather than a migraine, and I really do not think the magnitude of his glucose depression that he describes prior to its onset was sufficient to have caused the problems. He certainly had equivalently or lower glucose levels and was quite conversant with providers and had no symptoms then. Plan now is to have him on Plavix, which certainly is the only antiplatelet drug he can safely take in view of the risk of nonsteroidal antiinflammatory agents in this particular case with his nephropathy. He should have an outpatient Zio patch for 2 weeks. He should follow up with either his primary care physician or neurology after the Zio patch is done and perhaps should follow up with both for recommendations. I am going to assume that this is in this discharge planning and it will be scheduled. I would, therefore, have a neurology followup in about 6 weeks allowing for the Zio patch to be done between his anticipated discharge and that visit. If there are issues with ordering the Zio patch, the neurology needs to get involved in doing so. I would let the discharge team to contact our office directly and go from there, and I will let our scheduling individual know about his situation, and we will have her "troubleshoot" these discharge plans after I return to the office tomorrow. For now, neurology is going to sign off and no further recommendations. MONIKA
--- NOTE | 2018-08-07 15:23 | Pharmacy Report ---
Pharmacy Glycemic Short Note 2 - Date of Service August 07, 2018 - Glycemic Short BSG Results (Last 24 hours): 08/06/18 08/06/18 08/06/18 16:41 16:41 17:02 Glucose POC Glucose 52 L* 54 L* 57 L* 08/06/18 08/06/18 08/06/18 17:47 18:43 20:02 Glucose 203 H POC Glucose 203 H 246 H 08/06/18 08/07/18 08/07/18 20:46 02:08 05:07 Glucose POC Glucose 177 H 71 80 08/07/18 08/07/18 08/07/18 06:17 07:29 11:23 Glucose 101 H POC Glucose 107 H 169 H 08/07/18 13:06 Glucose 218 H POC Glucose OUTPATIENT ANTIDIABETIC REGIMEN: * Novolog insulin pump * Basal: 3927-1874 0.75 units/hr, 2305-1614 0.925 units/hr * Goal range: 100-150 mg/dL * CF 40 mg/dL/unit * CR: 1 unit for every 11 gm CHO * A1c = 8.9 % 08/06/18 ASSESSMENT: 08/07: * Xavier had another episode of hypoglycemia yesterday evening, BSG 54 mg/dL. At that time, Dr. Awan instructed the patient to further decrease the basal rate on his insulin pump. Rate is now at 70% of home basal rate. Dr. Awan spoke with the evening shift pharmacist and asked that the insulin pump be placed on hold with pharmacy assuming glycemic control if the patient continues to have lows. * BSGs have been at goal so far today. Will continue to have patient manage his pump at reduced basal rate. * Scr remains elevated (3.95 mg/dL) 08/06: Mr. Hicks is a 33 yr old T1DM male managed with a Novolog insulin pump. He was hypoglycemic on admission; BSG in the 30s. * He reported to the ED Pharmacist that his BSGs have been 60 mg/dL or lower during the last few days. * It was ordered for the patient to continue self management of his insulin pump while admitted. Pharmacy was requested to follow patient. * Xavier decreased his basal rate by 10% last evening. Despite this, he did have an episode of hypoglycemia early this morning, BSG = 42 mg/dL. I spoke with Xavier who confirmed that he last bolused himself with 0.4 units around 2100 on 08/05. This leads me to believe that this basal rate remains too high. He remains in acute kidney injury, which may be contributing to hypoglycemia. I advised him to decrease his basal rate another 10%, which he agreed to do. PLAN FOR INPATIENT GLYCEMIC CONTROL: Pt is to manage BSGs with insulin pump per outpatient settings. * Basal rate is currently at 70% of home rate * RN will have patient read and sign agreement [id number] Insulin Pump Therapy Patient Agreement. * RN will provide and explain form [id number] Flowsheet for Patient * Patient will document their insulin dose given on [id number] which is kept at the bedside, available to caregivers upon request, and which becomes part of the permanent medical record. Thank you.
[2018-08-07 18:39] LABS: BUN Creatinine Ratio 10.8 (10-20); Calcium 8.3 mg/dl (8.5-10.1); Creatinine Clr Calc Pharmacy 26.3 ml/min; Est GFR (African American) 20.7; Est GFR (Non-African American) 17.9; Potassium 5.5 mmol/L (3.5-5.1)
[2018-08-07] MEDS: ATORVASTATIN 40 MG TAB PO SCH (21:28)
[2018-08-08 07:02] LABS: BUN Creatinine Ratio 11.4 (10-20); Calcium 8.2 mg/dl (8.5-10.1); Creatinine Clr Calc Pharmacy 25.3 ml/min; Est GFR (African American) 19.7; Potassium 5.1 mmol/L (3.5-5.1)
--- NOTE | 2018-08-08 07:57 | Nephrology Progress Note ---
Date of Service August 08, 2018 Assessment & Plan (1) CKD (chronic kidney disease) stage 4, GFR 15-29 ml/min: CKD progression d/t DM nephropathy and uncontrolled HTN. no obstruction, no change in urine sediment, no response unfortunately to fluid resuscitation. -discussed ESRD planning classes w/ him today-he will consider but did not give consent just yet for me to set up; did give him web sites for further education -given eGFR in range of high teens, need also to start AVF creation process. dr mariee does not take his insurance, so would not provide OP services >> pt considering dr mcallister in [place] versus [facility] CV surgery; will verify w/ him in am -needs to f/u w/ me or my partner in [facility] CKD clinic 1st 2 wks of Aug -stressed importance of CIC, control of DM, HTN -cont low K diet (2) Nephrotic syndrome due to diabetes mellitus: given recurrent hyperkalemia despite low K diet and lower dose acei, will stop acei -cont torsemide current dose and low Na diet (3) Hypertension: labile bp reported at admission though pt consistently denies sx >> aim for sbp 130-140s systolic though true goal is <130 consistently systolic -cont <2 gm Na diet now and at d/c > pls reniforce low K and low Na diet -cont current meds -diuretic indicated d/t nephrotic syndrome (4) Urinary retention: continue cic bid per urology recommendations; primary service considering trial of alpha bocker (5) Anemia in chronic kidney disease (CKD): iron stores as outpt this month more than adequate; B12 and folate levels also appropriate -will d/w him anemia clinic referral after d/c for initiation of epo -recent start of plavix noted Subjective seen on rounds this am and pt again w/ essentially negative ROS >> no orhtostatic sx; was up most of night w/ BM after kayexalate; denies issues voiding. had treatment medically for hyperkalemia yesterday- peak K 5.6; K this afternoon again 5.8. BP elevated again, remaining in 140-150s systolic. no cough/sob, no chest paln palpitations, unchnaged mild edema; no n/v/abd pain. no rash. no new focal numbness/weakness or further tia sx; bg as below; no symptomatic low bg Physical Exam 2 Vital Signs (Past 24 Hours): Last Vital Signs Temp 36.5 C 08/08/18 07:00 Pulse 67 08/08/18 07:00 Resp 18 08/08/18 07:00 BP 160/88 H 08/08/18 07:00 Pulse Ox 97 08/08/18 07:00 Constitutional: well developed, well nourished and + frail appearing; no acute distress on RA, maneuvers readily for exam Eyes: EOM intact bilaterally ENMT: Ears: no external ear abnormality Nose: no external nose abnormality Mouth: + dry oral mucous membranes Neck: no nuchal rigidity Respiratory: normal respiratory effort Auscultation: + diminished lung sounds Cardiovascular: Rate/Rhythm: regular rate and regular rhythm Extremities: + edema (trace-1+) Gastrointestinal (Abdomen): Inspection/Auscultation: normal bowel sounds Percussion/Palpation: abdomen soft; abdomen nontender Musculoskeletal: Extremities: strength 5/5 throughout R leg in boot Skin: no rashes, warm and dry + pallor Neurologic: soria, fluent speech Psychiatric: Orientation: alert and oriented x 3 Eye Contact: + fair eye contact Speech: normal rate/rhythm/volume of speech Affect: + flat affect Results & Data Laboratory Results Abnormal lab results 08/07/18 08/07/18 08/07/18 Range/Units 06:17 11:23 13:06 ESR 36 H (0-14) mm/hr Potassium 5.6 H D (3.5-5.1) mmol/L Chloride (98-107) mmol/L BUN 43 H (7-18) mg/dl Creatinine 3.98 H (0.6-1.4) mg/dl Glucose 218 H (70-99) mg/dl POC Glucose 169 H (70-99) Calcium 8.0 L (8.5-10.1) mg/dl TIBC 203 L (250-450) mcg/dl 08/07/18 08/07/18 08/08/18 Range/Units 16:37 17:55 05:18 ESR (0-14) mm/hr Potassium 5.5 H (3.5-5.1) mmol/L Chloride 108 H (98-107) mmol/L BUN 44 H (7-18) mg/dl Creatinine 4.08 H (0.6-1.4) mg/dl Glucose (70-99) mg/dl POC Glucose 106 H 152 H (70-99) Calcium 8.3 L (8.5-10.1) mg/dl TIBC (250-450) mcg/dl 08/08/ Range/Units 06:11 ESR (0-14) mm/hr Potassium (3.5-5.1) mmol/L Chloride 110 H (98-107) mmol/L BUN 49 H (7-18) mg/dl Creatinine 4.25 H (0.6-1.4) mg/dl Glucose 106 H (70-99) mg/dl POC Glucose (70-99) Calcium 8.2 L (8.5-10.1) mg/dl TIBC (250-450) mcg/dl _ (1) Anemia in chronic kidney disease (CKD) Chronic kidney disease stage: stage 4 (severe) Qualified Code(s): N18.4 - Chronic kidney disease, stage 4 (severe); D63.1 - Anemia in chronic kidney disease (2) Hypertension Hypertension type: unspecified Qualified Code(s): I10 - Essential (primary) hypertension
[2018-08-08] MEDS: ATORVASTATIN 40 MG TAB PO SCH (08:32)
[2018-08-08] MEDS ORDERED: LISINOPRIL 5 MG TAB PO SCH (09:00)
[2018-08-08] MEDS ORDERED: TORSEMIDE 20 MG TAB PO SCH (09:00)
[2018-08-08] MEDS: AMLODIPINE BESYLATE 5 MG TAB PO SCH (09:14)
[2018-08-08] MEDS: CLOPIDOGREL BISULFATE 75 MG TAB PO SCH (09:14)
[2018-08-08] MEDS: CHOLECALCIFEROL 1,000 UNITS TAB PO SCH (09:14)
[2018-08-08] MEDS: NovoLOG INSULIN PUMP SCH ×4 (11:21→20:39)
[2018-08-08 14:23] LABS: BUN Creatinine Ratio 11.6 (10-20); Calcium 8.3 mg/dl (8.5-10.1); Est GFR (African American) 20.5; Est GFR (Non-African American) 17.7; Potassium 5.8 mmol/L (3.5-5.1)
[2018-08-08] MEDS ORDERED: CALCIUM GLUCONATE 10% 1,000 MG in SODIUM CHLORIDE 0.9% 50 ML IV STA (14:47)
[2018-08-08] MEDS ORDERED: SODIUM POLYSTYRENE SULFONATE 15G/60ML SUSP PO STA ×2 (14:48→20:41)
[2018-08-08] MEDS ORDERED: ALBUTEROL 0.5% NEB SOLN 2.5 MG/0.5 ML VIAL NEB STA (14:48)
--- NOTE | 2018-08-08 15:13 | Hospitalist Progress Note ---
Date of Service August 08, 2018 Assessment & Plan (1) JUANA (acute kidney injury): Serum creatinine 3.95 compared to baseline of 1.9 in March 2018. Renal artery duplex / Renal Ultrasound "1. No renal calculi or hydronephrosis. 2. Mildly increased echogenicity about the bilateral renal parenchyma may reflect underlying medical renal disease. 3. Unremarkable appearance of the bilateral renal vasculature. No evidence of renal arterial stenosis." -renal function has not improved with IV fluids and Nephrology service since describing the acute kidney injury as progression of chronic kidney disease from DM nephropathy and uncontrolled hypertension -IV fluids have been stopped on 08/07/18 and nephrology service giving lisinopril at 5 mg daily and give low dose torsemide on 08/07/18 and 08/08/18 to try to control blood pressure and prevent proteinuria in kidney disease while minimizing hyperkalemia with the diuretic -however the patient does not tolerate MICHELLE inhibitor as afternoon labs on and 08/08/18 has demonstrated potassium levels above 5 with recent potassium level 5.8 -no changes in EKGs noted and can hold off calcium gluconate today which was given yesterday, as per nephrology will give kayexelate and IV lasix 20 mg IV x 1 . will discontinue further MICHELLE inhibitor and torsemide (2) CKD (chronic kidney disease), stage III: JUANA as discussed above and that this is progression from chronic kidney disease stage III to chronic kidney disease stage IV (3) Urinary retention: Patient performs straight caths once a day at home. Straight caths q shift as needed will start doxasozin qhs which may help with urination and control blood pressure (4) Hypertension: has been off clonidine Continue Hydralazine 10 mg QID prn for systolic blood pressure above 160 continue amlodipine 10 mg daily avoid MICHELLE inhibitor will start doxasozin qhs which may help with urination and control blood pressure (5) Diabetes mellitus type 1 with complications: Diabetes mellitus type I on insulin pump and complicated by hypoglycemia Hgb A1C 8.9 currently patient is on 70% of usual basal Lantus rate continue fingerstick glucose to monitor for hypogylcemia (6) Diabetic neuropathy: Diabetic neuropathy with Charcot foot/ankle. Neuropathy precautions. Off-loading shoe when out of bed. (7) Nausea and vomiting: Chronic intermittent nausea and vomiting. give antiemetics as needed diet as tolerated (8) Neurological symptoms: Patient had episode of right hand numbnessand difficulty speaking (? expressive aphasia) 2 days prior to admission with Symptoms were associated with hypoglycemia Admission imaging studies without evidence for stroke Brain MRI No acute intracranial abnormality Carotid dopplers 1. There is no sonographic evidence of hemodynamically significant stenosis in the right or left carotid arterial system. 2. Antegrade flow is shown in the vertebral arteries. Patient again had hypoglycemic episode on 08/06/18 with malaise and likely his previous neurological symptoms were due to hypoglycemia However Neurology started patient on Plavix in case patient had Transient Ishcemic Attack prior to hospitalization although workup to date with normal sinus rhythm on telemetry and echocardiogram performed on this admission with noraml EF of 57% and no evidence for atrial septal defect While a diagnosis of TIA is still not strongly supported with current evidence, will give plavix 75 mg for now which was started on 08/06/18 just in case in regards to neurology service assessment will continue to monitor on telemetry for now because of hypoglycemia risks and to see if any cardiac telemetry events (9) DVT prophylaxis: Anemia monitor blood counts while on Plavix downtrending Hgb likely hemodilutional and that anemia likely due to Chronic kidney disease send FOBT when available iron studies does not show iron deficiency Low risk for DVT (0.5% per IMPROVE Predictive Risk Model). Prophylaxis not indicated. Ambulate. (10) Discharge planning issues: Patient will need follow ups with the following: Family Medicine follow-up with Dr. Singh. Nephrology follow-up with Dr. Bains. Subjective Patient denies lightheadedness or or malaise. Glucose is controlled today. Patient eating. Denies vomiting. Repeat labs with hyperkalemia. denies chest pain or palpitations. Physical Exam 2 Vital Signs (Past 24 Hours): Last Vital Signs Temp 36.7 C 08/08/18 14:29 Pulse 72 08/08/18 14:29 Resp 18 08/08/18 14:29 BP 155/89 H 08/08/18 14:29 Pulse Ox 98 08/08/18 14:29 Constitutional: WD/WN, vitals as above Eyes: PERRL, conjunctivae normal, anicteric sclerae EOM intact bilaterally ENMT: external ear and nose normal, oropharynx normal Neck: normal visual inspection and trachea midline Respiratory: normal respiratory effort, lungs clear to auscultation Cardiovascular: RRR, no murmur, no edema Gastrointestinal (Abdomen): normal bowel sounds, soft, nontender, no hepatosplenomegaly (presence of insulin pump) Musculoskeletal: Head/Neck/Chest: normocephalic and head atraumatic Extremities: extremities normal to inspection (right foot sensitive to touch secondary to Charcot foot) Neurologic: PERRL, EOMI, accommodation nl, no face palsy, no dysarthria CN' s II-XI intact bilaterally _ (1) Hypertension Hypertension type: unspecified Qualified Code(s): I10 - Essential (primary) hypertension (2) Diabetic neuropathy Diabetes mellitus type: type 1 Diabetes mellitus complication detail: diabetic polyneuropathy Qualified Code(s): E10.42 - Type 1 diabetes mellitus with diabetic polyneuropathy (3) Nausea and vomiting Vomiting type: unspecified Vomiting Intractability: unspecified Qualified Code(s): R11.2 - Nausea with vomiting, unspecified
[2018-08-08] MEDS ORDERED: FUROSEMIDE 20 MG in SYRINGE 0 ML IV ONE (15:15)
[2018-08-08 19:20] LABS: BUN Creatinine Ratio 11.9 (10-20); Calcium 8.2 mg/dl (8.5-10.1); Creatinine Clr Calc Pharmacy 25.3 ml/min; Est GFR (African American) 19.7; Potassium 5.5 mmol/L (3.5-5.1)
[2018-08-08] MEDS ORDERED: SODIUM POLYSTYRENE SULFONATE 30 GM/120 ML UDP PO STA (20:27)
[2018-08-08] MEDS: DOXAZosin MESYLATE TAB 2 MG TAB PO SCH (20:38)
[2018-08-09 06:25] LABS: BUN Creatinine Ratio 12.1 (10-20); Calcium 8.1 mg/dl (8.5-10.1); Creatinine Clr Calc Pharmacy 24.9 ml/min; Est GFR (African American) 19.7; Potassium 4.4 mmol/L (3.5-5.1)
[2018-08-09] MEDS: CARBOHYDRATES FOR HYPOGLYCEMIA PO PRN (07:33)
[2018-08-09] MEDS: NovoLOG INSULIN PUMP SCH ×4 (08:05→21:39)
--- NOTE | 2018-08-09 09:14 | Nephrology Progress Note ---
Date of Service August 09, 2018 Assessment & Plan (1) CKD (chronic kidney disease) stage 4, GFR 15-29 ml/min: CKD progression d/t DM nephropathy and uncontrolled HTN. no obstruction, no change in urine sediment, no response unfortunately to fluid resuscitation. new baseline creatinine appears to be 4 - low 4's -discussed ESRD planning classes w/ him today-he consents just yet for me to set up; did give him web sites for further education -given eGFR in range of high teens, need also to start AVF creation process. dr mariee does not take his insurance, so would not provide OP services >> pt chooses to est w/ [facility] CV surgery; needs semi urgent appt in [facility] to est care / start avf creation process -needs to f/u w/ me or my partner in [facility] CKD clinic 1st 2 wks of Aug - we will work on -stressed importance of CIC, control of DM, HTN -cont low K diet (2) Nephrotic syndrome due to diabetes mellitus: given recurrent hyperkalemia despite low K diet and lower dose acei, ACEI contraindicated -cont torsemide current dose and low Na diet (3) Hypertension: labile bp reported at admission though pt consistently denies sx >> aim for sbp 130-140s systolic though true goal is <130 consistently systolic -cont <2 gm Na diet now and at d/c > pls reniforce low K and low Na diet >> recommend legal officer education if not already done -cont current meds--doxazosin added last evening >>>>would watch bp today -- controlled this am but trend this admission is one or 2 readings controlled then out of control >> if bp increases again, recommend standing hydralazine 10 mg bid -diuretic indicated d/t nephrotic syndrome (4) Urinary retention: continue cic bid per urology recommendations; primary service considering trial of alpha bocker (5) Anemia in chronic kidney disease (CKD): iron stores as outpt this month more than adequate; B12 and folate levels also appropriate -will d/w him anemia clinic referral after d/c for initiation of epo -recent start of plavix noted Subjective hypoglycemia to 40s again ON. BP has one reading w/ good control this am else high. wt stable about 73 kg. no hypoglycemic awareness or orthostatic sx. no phsyical c/o >> specifically no poor po or f/c, no sob or cough, stable minimal edema and no chest pain, no abd pain n/v/d, no focal numbness/weakness, no acut evision change or further tia sx, no rash, no voiding c/o. Physical Exam 2 Vital Signs (Past 24 Hours): Last Vital Signs Temp 36.7 C 08/09/18 06:50 Pulse 68 08/09/18 06:50 Resp 16 08/09/18 06:50 BP 128/73 08/09/18 06:50 Pulse Ox 96 08/09/18 06:50 Constitutional: well developed and well nourished on RA maneuvers readily for exam Eyes: EOM intact bilaterally ENMT: Ears: no external ear abnormality Nose: no external nose abnormality Mouth: + dry oral mucous membranes Neck: no nuchal rigidity Respiratory: normal respiratory effort Auscultation: + diminished lung sounds Cardiovascular: Rate/Rhythm: regular rate and regular rhythm Extremities: + edema (trace-1+) Gastrointestinal (Abdomen): Inspection/Auscultation: normal bowel sounds Percussion/Palpation: abdomen soft; abdomen nontender Musculoskeletal: Extremities: strength 5/5 throughout large boot on rle Skin: no rashes, warm and dry Neurologic: soria, fluent speech, no tremor Psychiatric: A+Ox3, euthymic affect Genitourinary: no solorzano Results & Data Laboratory Results Abnormal lab results 08/08/18 08/08/18 08/08/18 Range/Units 13:52 16:52 18:47 Potassium 5.8 H 5.5 H (3.5-5.1) mmol/L Chloride 108 H (98-107) mmol/L BUN 48 H 51 H (7-18) mg/dl Creatinine 4.12 H 4.25 H (0.6-1.4) mg/dl Glucose 146 H 180 H (70-99) mg/dl POC Glucose 165 H (70-99) Calcium 8.3 L 8.2 L (8.5-10.1) mg/dl 08/08/18 08/09/18 08/09/18 Range/Units 20:15 05:17 07:32 Potassium (3.5-5.1) mmol/L Chloride (98-107) mmol/L BUN 51 H (7-18) mg/dl Creatinine 4.25 H (0.6-1.4) mg/dl Glucose (70-99) mg/dl POC Glucose 225 H 43 L* (70-99) Calcium 8.1 L (8.5-10.1) mg/dl 08/09/18 08/09/18 08/09/18 Range/Units 07:33 07:57 08:17 Potassium (3.5-5.1) mmol/L Chloride (98-107) mmol/L BUN (7-18) mg/dl Creatinine (0.6-1.4) mg/dl Glucose (70-99) mg/dl POC Glucose 46 L* 58 L* 162 H (70-99) Calcium (8.5-10.1) mg/dl _ (1) Anemia in chronic kidney disease (CKD) Chronic kidney disease stage: stage 4 (severe) Qualified Code(s): N18.4 - Chronic kidney disease, stage 4 (severe); D63.1 - Anemia in chronic kidney disease (2) Hypertension Hypertension type: unspecified Qualified Code(s): I10 - Essential (primary) hypertension
[2018-08-09] MEDS: TORSEMIDE 20 MG TAB PO SCH (11:36)
[2018-08-09] MEDS: CLOPIDOGREL BISULFATE 75 MG TAB PO SCH (11:37)
[2018-08-09] MEDS: CHOLECALCIFEROL 1,000 UNITS TAB PO SCH (11:37)
[2018-08-09] MEDS: ATORVASTATIN 40 MG TAB PO SCH (11:37)
[2018-08-09] MEDS: AMLODIPINE BESYLATE 5 MG TAB PO SCH (11:38)
[2018-08-09 15:07] LABS: Anti Nuclear Antibody Screen NEGATIVE (NEGATIVE)
--- NOTE | 2018-08-09 21:37 | Hospitalist Progress Note ---
Date of Service August 09, 2018 Assessment & Plan (1) JUANA (acute kidney injury): Serum creatinine 3.95 compared to baseline of 1.9 in March 2018. Renal artery duplex / Renal Ultrasound "1. No renal calculi or hydronephrosis. 2. Mildly increased echogenicity about the bilateral renal parenchyma may reflect underlying medical renal disease. 3. Unremarkable appearance of the bilateral renal vasculature. No evidence of renal arterial stenosis." -renal function has not improved with IV fluids and Nephrology service since describing the acute kidney injury as progression of chronic kidney disease from DM nephropathy and uncontrolled hypertension -recent efforts to control hypertension and prevent proteinuria with MICHELLE inhibitor with diuretic led to hyperkalemia -hyperkalemia resolved today after being off the lisinopril (2) CKD (chronic kidney disease), stage III: JUANA as discussed above and that this is progression from chronic kidney disease stage III to chronic kidney disease stage IV (3) Urinary retention: Patient performs straight caths once a day at home. Straight caths q shift as needed have started doxasozin qhs which may help with urination and control blood pressure (4) Hypertension: has been off clonidine Continue Hydralazine 10 mg QID prn for systolic blood pressure above 160 continue amlodipine 10 mg daily avoid MICHELLE inhibitor continue doxasozin qhs which may help with urination and control blood pressure may need additional blood pressure agent (5) Diabetes mellitus type 1 with complications: Diabetes mellitus type I on insulin pump and complicated by hypoglycemia Hgb A1C 8.9 -at home patient's basal rate is (0.75 units/hr from midnight to 6 AM and 0.925 units.hr from 6 AM and onwards to midnight). On this stay to date, because of episodes of hypoglycemia medical doctor has him of 70 percent of home basal rate and because of recent morning hypoglycemia medical doctor and patient have even discussed lower the midnight to 6 AM dosing down to another 5 percent -but if persists to be hyperglycemic after next glcuose check then will have nocturnalist and pharmacy consult take over insulin management with subcutaneous insulin rather than patient's insulin pump (6) Diabetic neuropathy: Diabetic neuropathy with Charcot foot/ankle. Neuropathy precautions. Off-loading shoe when out of bed. (7) Nausea and vomiting: Chronic intermittent nausea and vomiting. give antiemetics as needed diet as tolerated (8) Neurological symptoms: Patient had episode of right hand numbnessand difficulty speaking (? expressive aphasia) 2 days prior to admission with Symptoms were associated with hypoglycemia Admission imaging studies without evidence for stroke Brain MRI No acute intracranial abnormality Carotid dopplers 1. There is no sonographic evidence of hemodynamically significant stenosis in the right or left carotid arterial system. 2. Antegrade flow is shown in the vertebral arteries. Patient again had hypoglycemic episode on 08/06/18 with malaise and likely his previous neurological symptoms were due to hypoglycemia However Neurology started patient on Plavix in case patient had Transient Ishcemic Attack prior to hospitalization although workup to date with normal sinus rhythm on telemetry and echocardiogram performed on this admission with noraml EF of 57% and no evidence for atrial septal defect While a diagnosis of TIA is still not strongly supported with current evidence, will give plavix 75 mg for now which was started on 08/06/18 and atrovastatin daily just in case in regards to neurology service assessment will continue to monitor on telemetry for now because of hypoglycemia risks and to see if any cardiac telemetry events (9) DVT prophylaxis: Anemia monitor blood counts while on Plavix downtrending Hgb likely hemodilutional and that anemia likely due to Chronic kidney disease send FOBT when available iron studies does not show iron deficiency Low risk for DVT (0.5% per IMPROVE Predictive Risk Model). Prophylaxis not indicated. Ambulate. (10) Discharge planning issues: Patient will need follow ups with the following: Family Medicine follow-up with Dr. Singh. Nephrology follow-up with Dr. Bains. Subjective At this time of writing the note, patient hyperglycemic above 300 (recorded as 365) and blood pressure is high. He is in appearance asymptomatic. Denies headache or chest pain or lightheadedness. alert and oriented x 3. He reported that he had recently given himself a correction dose of insulin for the hyperglycemia. I have spoken with patient and patient's nurse and that if in 1 hour if the glucose is higher tahn 365 then production support specialist nocturnal medical doctor will need to be called to get involved in giving subcutaneous insulin with help from pharmacy glycemic control consult to take over the control of his further insulin dosing but stopping the insulin pump at home patient's basal rate is (0.75 units/hr from midnight to 6 AM and 0.925 units.hr from 6 AM and onwards to midnight). On this stay to date, because of episodes of hypoglycemia medical doctor has him of 70 percent of home basal rate and because of recent morning hypoglycemia medical doctor and patient have even discussed lower the midnight to 6 AM dosing down to another 5 percent. But at this point I am very cautious about further adjusting the insulin pump if hyperglycemia persists Physical Exam 2 Vital Signs (Past 24 Hours): Last Vital Signs Temp 36.7 C 08/09/18 20:15 Pulse 76 08/09/18 20:15 Resp 20 08/09/18 20:15 BP 172/98 H 08/09/18 20:15 Pulse Ox 96 08/09/18 20:15 Constitutional: WD/WN, vitals as above Eyes: PERRL, conjunctivae normal, anicteric sclerae EOM intact bilaterally ENMT: external ear and nose normal, oropharynx normal Neck: normal visual inspection and trachea midline Respiratory: normal respiratory effort, lungs clear to auscultation Cardiovascular: RRR, no murmur, no edema Gastrointestinal (Abdomen): normal bowel sounds, soft, nontender, no hepatosplenomegaly (presence of insulin pump) Musculoskeletal: Head/Neck/Chest: normocephalic and head atraumatic Extremities: extremities normal to inspection (right foot sensitive to touch secondary to Charcot foot) Neurologic: PERRL, EOMI, accommodation nl, no face palsy, no dysarthria CN' s II-XI intact bilaterally _ (1) Hypertension Hypertension type: unspecified Qualified Code(s): I10 - Essential (primary) hypertension (2) Diabetic neuropathy Diabetes mellitus type: type 1 Diabetes mellitus complication detail: diabetic polyneuropathy Qualified Code(s): E10.42 - Type 1 diabetes mellitus with diabetic polyneuropathy (3) Nausea and vomiting Vomiting type: unspecified Vomiting Intractability: unspecified Qualified Code(s): R11.2 - Nausea with vomiting, unspecified
[2018-08-09] MEDS: DOXAZosin MESYLATE TAB 2 MG TAB PO SCH (21:39)
[2018-08-10 05:42] LABS: Mean Corpuscular Hgb Conc 34.2 g/dL (32-36); Mean Platelet Volume 10.2 fL (7.4-10.4); Platelet Count 227 K/uL (130-400)
[2018-08-10 06:06] LABS: BUN Creatinine Ratio 12.1 (10-20); Calcium 8.1 mg/dl (8.5-10.1); Creatinine Clr Calc Pharmacy 24.8 ml/min; Est GFR (African American) 19.6; Est GFR (Non-African American) 16.9; Potassium 4.5 mmol/L (3.5-5.1)
[2018-08-10 06:21] LABS: Basophils # (auto) 0.09 K/uL (0-0.2); Basophils % (auto) 1.9 %; Eosinophils # (auto) 0.11 K/uL (0-0.5); Eosinophils % (auto) 2.3 %; Hematocrit (blood only) 25.7 % (42-52); Hemoglobin 8.8 g/dL (14.0-18.0); Lymphocytes # (auto) 1.43 K/uL (1.2-3.4); Lymphocytes % (auto) 29.5 %; Mean Corpuscular Volume 85.1 fL (80-100); Monocytes # (auto) 0.57 K/uL (0.11-0.59); Monocytes % (auto) 11.8 %; Neutrophils # (auto) 2.65 K/uL (1.4-6.5); Neutrophils % (auto) 54.5 %; RBC Morphology Unremarkable; RDW Coefficient of Variation 13.6 % (11.5-14.5); RDW Standard Deviation 42.2 fL (36.4-46.3); Red Blood Count 3.02 M/uL (4.7-6.1); White Blood Count 4.85 K/uL (4.8-10.8)
[2018-08-10] MEDS: NovoLOG INSULIN PUMP SCH ×2 (08:03→12:49)
[2018-08-10] MEDS: AMLODIPINE BESYLATE 5 MG TAB PO SCH (08:37)
[2018-08-10] MEDS: ATORVASTATIN 40 MG TAB PO SCH (08:38)
[2018-08-10] MEDS: CLOPIDOGREL BISULFATE 75 MG TAB PO SCH (08:38)
[2018-08-10] MEDS: CHOLECALCIFEROL 1,000 UNITS TAB PO SCH (08:38)
[2018-08-10] MEDS: TORSEMIDE 20 MG TAB PO SCH (08:39)
--- NOTE | 2018-08-10 09:47 | Hospitalist Progress Note ---
Date of Service August 10, 2018 Assessment & Plan (1) CKD (chronic kidney disease) stage 4, GFR 15-29 ml/min: Patient has CKD stage IV which is a progression due to his diabetic nephropathy and uncontrolled high blood pressure. He is currently at his new baseline. He is scheduled for ESRD planning classes starting 09/14 and also has websites given to him for further education. He will need to start the aVF creation process. Per nephrology local vascular surgeon, Dr. Hodge, does not take his insurance. Therefore the patient chooses to establish with [facility] and has given him an appointment on 09/23. He has follow-up in [facility] and [place] CKD clinic on 09/06 at 9:30 in the morning. Nephrology stressed importance of continuing chronic intermittent catheterization, good control of diabetes and blood pressure. He is recommended to have a low potassium diet and lab work on 08/17 and 08/25. Nephrology has ordered these and will follow results. (2) TIA (transient ischemic attack): Patient presented with right hand numbness and difficulty speaking for approximately 15 minutes 2 days prior to admission. Symptoms appeared consistent with symptomatic hypoglycemia. During this admission a brain MRI revealed no acute intracranial abnormality, carotid Dopplers revealed no evidence of hemodynamically significant stenosis in the right or left carotid artery system. Neurology was consulted and did start the patient on Plavix with the possibility that symptoms were related to TIA. Additional workup including telemetry monitoring has revealed normal sinus rhythm without events. Echocardiogram performed this admission revealed a normal EF of 57% and no evidence for atrial septal defect. In line with the concern of TIA atorvastatin was also started for secondary prevention. Outpatient Holter monitor was recommended to complete the workup. (3) Anemia in chronic kidney disease (CKD): Iron stores are adequate. B12 and folate also appropriate. Considering EPO initiation per nephrology. Continue monitoring as outpatient. (4) Diabetes mellitus type 1 with complications: Diabetes mellitus type 1 on insulin pump. He had an episode of symptomatic hypoglycemia prior to arrival. He has since had some fluctuations in the last 48 hours of his blood sugar which all can be explained, with bolus dosing being adjusted. Currently he is taking 80% of his typical basal rate which is 0.75 units/h from midnight to 6 AM and 0.9-5 units/h from 6 AM to midnight. Additionally his boluses which are recommended by the pump based on carb intake and current blood sugar have been reduced by 50% with good effect. The patient will continue to monitor his glucose at home and has a continuous glucose monitor that needed a battery. Interestingly, his battery life had failed one day prior to admission. He now has a new battery. Will need to continue close monitoring with outpatient glycemic pharmacist who currently manages him. (5) Urinary retention: Chronic, patient performs straight caths once a day at home. Straight caths q shift as needed Doxazosin started nightly this admission which was thought to help with urination and control blood pressure. If continued, will need to monitor as outpatient. (6) Hypertension: Labile blood pressure has been seen throughout admission with goal of less than 130 systolic. Continue less than 2 g sodium diet at discharge. This is in addition to low potassium. Recommend dietitian education to be continued as outpatient if possible. Continue current medications including doxazosin which is new this admission, standing hydralazine doses at noon and bedtime, amlodipine 10 mg p.o. daily and torsemide 10 mg p.o. every morning. He has notably been off clonidine and MICHELLE inhibitors are contraindicated in the setting of hyperkalemia. (7) Diabetic neuropathy: Diabetic neuropathy with Charcot foot/ankle. Neuropathy precautions. Off-loading shoe when out of bed. (8) DVT prophylaxis: Ambulation/SCDs Full Dispo-to home today. Alisha Palomino DO [facility] Hospitalist Subjective 33-year-old man who is a type I diabetic with insulin pump presented with worsening renal function found on lab work as outpatient. Nephrology has worked this up and has not a plan going home. His inhibitors are contraindicated and this was reviewed with the patient. He also had an episode of right hand numbness which has resolved thought secondary to possible TIA versus possible symptomatic hypoglycemia. Plavix and statin have been started as inpatient. The patient otherwise feels fine with no symptoms today. He is tolerating p.o., ambulating at baseline and mentating at baseline. He is ready for discharge. Physical Exam 2 Vital Signs (Past 24 Hours): Last Vital Signs Temp 36.7 C 08/10/18 07:00 Pulse 86 08/10/18 07:00 Resp 18 08/10/18 07:00 BP 134/80 08/10/18 07:00 Pulse Ox 98 08/10/18 07:00 CONSTITUTIONAL: WNWD, vitals as above, generally well-appearing EYES: normal conjuctivae, no scleral icterusality ENT: MMM RESPIRATORY: clear to auscultation bilaterally, no crackles, rales or wheezes, normal respiratory effort CARDIOVASCULAR: regular rate and rhythm, S1 and 2 heard without murmurs, gallops or rubs, no JVD, no peripheral edema GASTROINTESTINAL: soft, nontender, no hepatomegaly, no guarding. Insulin pump present MUSCULOSKELETAL: no gross focal deficits. Charcot ankle with swelling and decreased ROM at baseline, pt wearing large thick orthotic to help off load his L foot and provide immobilization to the area. No foot wounds are present. SKIN: warm and dry NEUROLOGIC: no gross focal deficits present. Baseline sensation deficit on bilateral feet to midfoot area. PSYCHIATRIC: alert cooperative and oriented to person, place and time. Results & Data Laboratory Results Short CBC 08/10/18 Range/Units 05:16 WBC 4.85 (4.8-10.8) K/uL Hgb 8.8 L (14.0-18.0) g/dL Hct 25.7 L (42-52) % Plt Count 227 (130-400) K/uL BMP 08/10/18 05:16 Sodium 138 Potassium 4.5 Chloride 107 Carbon Dioxide 25 BUN 52 H Creatinine 4.27 H Glucose 101 H Calcium 8.1 L Medications Administered Current Inpatient Medications Acetaminophen (Tylenol) 650 mg PO Q4H PRN PRN Reason: Pain or Fever Stop: 09/04/18 19:48 Last Admin: 08/06/18 06:22 Dose: 650 mg Amlodipine Besylate (Norvasc) 10 mg PO DAILY [facility] Stop: 09/05/18 08:59 Last Admin: 08/10/18 08:37 Dose: 10 mg Atorvastatin Calcium (Lipitor) 40 mg PO QAM [facility] Stop: 09/06/18 18:14 Last Admin: 08/10/18 08:38 Dose: 40 mg Clopidogrel Bisulfate (Plavix) 75 mg PO QAM [facility] Stop: 09/05/18 12:59 Last Admin: 08/10/18 08:38 Dose: 75 mg Dextrose (Dextrose 50%) 25 - 50 ml IV UD PRN; Protocol PRN Reason: Hypoglycemia Protocol Stop: 09/04/18 19:44 Last Admin: 08/06/18 17:24 Dose: 25 ml Doxazosin Mesylate (Cardura) 2 mg PO HS [facility] Stop: 09/07/18 20:59 Last Admin: 08/09/18 21:39 Dose: 2 mg Glucagon (Glucagen) 1 mg SQ UD PRN; Protocol PRN Reason: Hypoglycemia Protocol Stop: 09/04/18 19:44 Glucose (Glucose 40%) 15 - 30 gm PO UD PRN; Protocol PRN Reason: Hypoglycemia Protocol Stop: 09/04/18 19:44 Glucose (Dex4 Glucose) 4 - 8 tabs PO UD PRN; Protocol PRN Reason: Hypoglycemia Protocol Stop: 09/04/18 19:44 Last Admin: 08/09/18 08:00 Dose: 4 tabs Hydralazine HCl (Apresoline) 10 mg PO QID PRN PRN Reason: Hypertension Stop: 09/05/18 08:59 Last Admin: 08/06/18 06:15 Dose: 10 mg Hydralazine HCl (Apresoline) 25 mg PO BID@1200,2100 [facility] Stop: 09/09/18 11:59 Hydromorphone HCl (Dilaudid) 0.5 mg IV Q6H PRN PRN Reason: Moderate Pain Stop: 08/20/18 07:34 Insulin Aspart (Novolog Aspart) 0 units SC PRN PRN PRN Reason: Pump Refill Stop: 09/04/18 19:44 Insulin Aspart (Novolog Insulin Pump) 1 ea N/A ACHS [facility]; Protocol Stop: 09/05/18 07:29 Last Admin: 08/10/18 08:03 Dose: 1 ea Miscellaneous (Carbohydrates For Hypoglycemia) 15 - 30 gm PO UD PRN PRN Reason: Hypoglycemia Treatment Stop: 09/04/18 19:44 Last Admin: 08/09/18 07:33 Dose: 30 gm Miscellaneous Information (Consult Glycemic Management Pharmacy) 1 ea N/A UD PRN PRN Reason: Consult Stop: 09/04/18 19:24 Ondansetron HCl (Zofran) 4 mg IV Q4H PRN PRN Reason: Nausea Stop: 09/05/18 08:00 Torsemide (Demadex) 10 mg PO QAM [facility] Stop: 09/08/18 08:59 Last Admin: 08/10/18 08:39 Dose: 10 mg Vitamin D (Vitamin D3) 5,000 units PO DAILY [facility] Stop: 09/05/18 08:59 Last Admin: 08/10/18 08:38 Dose: 5,000 units _ (1) Hypertension Hypertension type: unspecified Qualified Code(s): I10 - Essential (primary) hypertension (2) Diabetic neuropathy Diabetes mellitus type: type 1 Diabetes mellitus complication detail: diabetic polyneuropathy Qualified Code(s): E10.42 - Type 1 diabetes mellitus with diabetic polyneuropathy (3) Anemia in chronic kidney disease (CKD) Chronic kidney disease stage: stage 4 (severe) Qualified Code(s): N18.4 - Chronic kidney disease, stage 4 (severe); D63.1 - Anemia in chronic kidney disease
--- NOTE | 2018-08-10 10:41 | Nephrology Progress Note ---
Date of Service August 10, 2018 Assessment & Plan (1) CKD (chronic kidney disease) stage 4, GFR 15-29 ml/min: CKD progression d/t DM nephropathy and uncontrolled HTN. no obstruction, no change in urine sediment, no response unfortunately to fluid resuscitation. new baseline creatinine appears to be 4 - low 4's -scheduled for ESRD planning class; also has web sites for further education -given eGFR in range of high teens, need also to start AVF creation process. dr mariee does not take his insurance, so would not provide OP services >> pt chooses to est w/ [facility] CV surgery; they gave appt 10/03; my nurses are reaching out to see if we can move this up -he has f/u in [facility] CKD clinic 09/06/18 at 930 scheduled -stressed importance of CIC, control of DM, HTN -cont low K diet -recommend labs on 08/17, 08/25 >> bmp, hgb; I will order but pls inform pt -ok from renal standpoint for d/c home if other issues stable (2) Nephrotic syndrome due to diabetes mellitus: given recurrent hyperkalemia despite low K diet and lower dose acei, ACEI contraindicated -cont torsemide current dose and low Na diet (3) Hypertension: labile bp reported at admission though pt consistently denies sx >> aim for sbp 130-140s systolic though true goal is <130 consistently systolic -cont <2 gm Na diet now and at d/c > pls reniforce low K and low Na diet >> recommend heel coverer education if not already done -cont current meds--doxazosin added on 08/08 -today added standing hydralazine dosed at noon and hs (not in am b/c that is the one time that we get a few good bp readings) -diuretic indicated d/t nephrotic syndrome -cont current bp meds except prn hydralazine at d/c (4) Urinary retention: continue cic bid per urology recommendations; primary service doing trial of alpha bocker (5) Anemia in chronic kidney disease (CKD): iron stores as outpt this month more than adequate; B12 and folate levels also appropriate -will after d/c do anemia clinic referral after d/c for initiation of epo -recent start of plavix noted Subjective bg on higher side last evening then longer effx of insulin noted. no other sx or concerns; did get appts and vascular in mid feb. bp again one good reading then all high. no presync or orthostatic or tia sx; no f/c/poor po. ongoing hypoglycemic unawareness. denies acute viscion change or LYON. no sob or cough or wheeze. unchanged LE edema and no chest pain. no n/v/d/c/abd pain. no focal numbness/weakness. no rash. no voiding c/o though we did not specifically discuss if he is following [facility] CIC. Physical Exam 2 Vital Signs (Past 24 Hours): Last Vital Signs Temp 36.7 C 08/10/18 07:00 Pulse 86 08/10/18 07:00 Resp 18 08/10/18 07:00 BP 134/80 08/10/18 07:00 Pulse Ox 98 08/10/18 07:00 Constitutional: well developed and well nourished on ra maneuvers readily for exam,, reviewing bg in cell phone Eyes: EOM intact bilaterally ENMT: Ears: no external ear abnormality Nose: no external nose abnormality Mouth: + dry oral mucous membranes Neck: no nuchal rigidity Respiratory: normal respiratory effort Auscultation: + diminished lung sounds and + wheezes (BL exp which are new) Cardiovascular: Rate/Rhythm: regular rate and regular rhythm Extremities: + edema (trace-1+) Gastrointestinal (Abdomen): Inspection/Auscultation: normal bowel sounds Percussion/Palpation: abdomen soft; abdomen nontender Musculoskeletal: Extremities: strength 5/5 throughout Skin: no rashes, warm and dry + pallor Psychiatric: A+Ox3, euthymic affect Orientation: alert and oriented x 3 Eye Contact: + fair eye contact Speech: normal rate/rhythm/volume of speech Affect: + flat affect Results & Data Laboratory Results Abnormal lab results 08/09/18 08/09/18 08/09/18 Range/Units 11:31 16:55 20:21 RBC (4.7-6.1) M/uL Hgb (14.0-18.0) g/dL Hct (42-52) % BUN (7-18) mg/dl Creatinine (0.6-1.4) mg/dl Glucose (70-99) mg/dl POC Glucose 185 H 289 H 365 H* (70-99) Calcium (8.5-10.1) mg/dl 08/10/18 08/10/18 08/10/18 Range/Units 05:16 05:16 07:44 RBC 3.02 L (4.7-6.1) M/uL Hgb 8.8 L (14.0-18.0) g/dL Hct 25.7 L (42-52) % BUN 52 H (7-18) mg/dl Creatinine 4.27 H (0.6-1.4) mg/dl Glucose 101 H (70-99) mg/dl POC Glucose 180 H (70-99) Calcium 8.1 L (8.5-10.1) mg/dl _ (1) Hypertension Hypertension type: unspecified Qualified Code(s): I10 - Essential (primary) hypertension (2) Anemia in chronic kidney disease (CKD) Chronic kidney disease stage: stage 4 (severe) Qualified Code(s): N18.4 - Chronic kidney disease, stage 4 (severe); D63.1 - Anemia in chronic kidney disease
--- NOTE | 2018-08-11 22:08 | Discharge Summary ---
Date of Service August 11, 2018 Admission HPI Per Admitting Provider 33 year old male followed by Dr. Singh for primary care and Dr. Bains for Nephrology. History of DM type 1 diagnosed at age of 13; currently managed with insulin pump. Diabetes complicated by retinopathy, nephropathy, neuropathy, Charcot foot / ankle. Other problems include hypertension and CKD III with baseline creatinine of 2 +/ -. Seen in Nephrology clinic yesterday and routine labs were performed. Creatinine was 4.2, compared to 2.5 on 05/10/18. Patient was referred to the hospital for management of his acute kidney injury. Blood sugars have been fairly well controlled. Drinks plenty of fluids. No polyuria. Chronic urinary retention managed with straight caths once a day. Does not measure his urine output, but feels that there has been no changed. Does not use any NSAID's. 2 days prior to admission he experienced an episode of difficulty speaking ( words didn't make sense) and right hand numbness. Blood sugar was in the 40's around that time, but he did not have his usual hypoglycemic symptoms. Symptoms lasted a short time, then resolved. He has history of migraine headaches. Severe headache today similar to his typical migraines; symptoms improved with IV fluids. Admission Exam Per Admitting Provider WD/WN, vitals as above no acute distress Eyes: PERRL, conjunctivae normal, anicteric sclerae ENMT: external ear and nose normal, oropharynx normal Neck: trachea midline, no thyromegaly Respiratory: normal respiratory effort, lungs clear to auscultation Cardiovascular: Rate/Rhythm: regular rate Heart Sounds: no gallop, no murmur and no cardiac rub Vessels: no JVD Extremities: normal capillary refill and + edema (bilat ankles R > L); no calf tenderness Gastrointestinal (Abdomen): normal bowel sounds, soft, nontender, no hepatosplenomegaly Musculoskeletal: Head/Neck/Chest: neck supple Extremities: strength 5/5 throughout; no cyanosis and no clubbing Ankle: + deformity (right) deformity right foot; no diabetic foot ulcers Skin: no rashes, warm and dry Neurologic: PERRL, EOMI no facial palsy no dysarthria or aphasia Psychiatric: Orientation: alert and oriented x 3 Affect: euthymic affect Lymphatic: no cervical lymphadenopathy Principal Diagnosis TIA vs symptomatic hypoglycemia progression of diabetic nephropathy to CKD, Stage IV Anemia of chronic disease (CKD) Type I DM Discharge Exam CONSTITUTIONAL: WNWD, vitals as above, generally well-appearing EYES: normal conjuctivae, no scleral icterusality ENT: MMM RESPIRATORY: clear to auscultation bilaterally, no crackles, rales or wheezes, normal respiratory effort CARDIOVASCULAR: regular rate and rhythm, S1 and 2 heard without murmurs, gallops or rubs, no JVD, no peripheral edema GASTROINTESTINAL: soft, nontender, no hepatomegaly, no guarding. Insulin pump present MUSCULOSKELETAL: no gross focal deficits. Charcot ankle with swelling and decreased ROM at baseline, pt wearing large thick orthotic to help off load his L foot and provide immobilization to the area. No foot wounds are present. SKIN: warm and dry NEUROLOGIC: no gross focal deficits present. Baseline sensation deficit on bilateral feet to midfoot area. PSYCHIATRIC: alert cooperative and oriented to person, place and time. Discharge Data Allergies Allergy/AdvReac Type Severity Reaction Status Date / Time No Known Allergies Allergy Verified 08/05/18 15:12 Consultations 08/05/18 16:56 ED Decision to Admit Stat 08/05/18 19:49 Consult Nephrology Routine 08/06/18 07:00 Consult Neurology Routine Ordered Studies 08/05/18 19:04 US carotid doppler BI Urgent 08/05/18 19:49 MR brain wo con Urgent 08/06/18 19:49 US duplex renal artery Urgent US renal/blad retro comp Urgent Hospital Course (1) CKD (chronic kidney disease) stage 4, GFR 15-29 ml/min: Patient has CKD stage IV which is a progression due to his diabetic nephropathy and uncontrolled high blood pressure. He is currently at his new baseline. He is scheduled for ESRD planning classes starting 09/14 and also has websites given to him for further education. He will need to start the aVF creation process. Per nephrology local vascular surgeon, Dr. Hodge, does not take his insurance. Therefore the patient chooses to establish with [facility] and has given him an appointment on 09/23. He has follow-up [facility] on 09/06 at 9:30 in the morning. Nephrology stressed importance of continuing chronic intermittent catheterization, good control of diabetes and blood pressure. He is recommended to have a low potassium diet and lab work on 08/17 and 08/25. Nephrology has ordered these and will follow results. (2) TIA (transient ischemic attack): Patient presented with right hand numbness and difficulty speaking for approximately 15 minutes 2 days prior to admission. Symptoms appeared consistent with symptomatic hypoglycemia. During this admission a brain MRI revealed no acute intracranial abnormality, carotid Dopplers revealed no evidence of hemodynamically significant stenosis in the right or left carotid artery system. Neurology was consulted and did start the patient on Plavix with the possibility that symptoms were related to TIA. Additional workup including telemetry monitoring has revealed normal sinus rhythm without events. Echocardiogram performed this admission revealed a normal EF of 57% and no evidence for atrial septal defect. In line with the concern of TIA atorvastatin was also started for secondary prevention. Outpatient Holter monitor was recommended to complete the workup. (3) Anemia in chronic kidney disease (CKD): Iron stores are adequate. B12 and folate also appropriate. Considering EPO initiation per nephrology. Continue monitoring as outpatient. (4) Diabetes mellitus type 1 with complications: Diabetes mellitus type 1 on insulin pump. He had an episode of symptomatic hypoglycemia prior to arrival. He has since had some fluctuations in the last 48 hours of his blood sugar which all can be explained, with bolus dosing being adjusted. Currently he is taking 80% of his typical basal rate which is 0.75 units/h from midnight to 6 AM and 0.9-5 units/h from 6 AM to midnight. Additionally his boluses which are recommended by the pump based on carb intake and current blood sugar have been reduced by 50% with good effect. The patient will continue to monitor his glucose at home and has a continuous glucose monitor that needed a battery. Interestingly, his battery life had failed one day prior to admission. He now has a new battery. Will need to continue close monitoring with outpatient glycemic pharmacist who currently manages him. (5) Urinary retention: Chronic, patient performs straight caths once a day at home. Straight caths q shift as needed Doxazosin started nightly this admission which was thought to help with urination and control blood pressure. If continued, will need to monitor as outpatient. (6) Hypertension: Labile blood pressure has been seen throughout admission with goal of less than 130 systolic. Continue less than 2 g sodium diet at discharge. This is in addition to low potassium. Recommend dietitian education to be continued as outpatient if possible. Continue current medications including doxazosin which is new this admission, standing hydralazine doses at noon and bedtime, amlodipine 10 mg p.o. daily and torsemide 10 mg p.o. every morning. He has notably been off clonidine and MICHELLE inhibitors are contraindicated in the setting of hyperkalemia. (7) Diabetic neuropathy: Diabetic neuropathy with Charcot foot/ankle. Neuropathy precautions. Off-loading shoe when out of bed. Total Time Total Time Spent Total Time Spent (In Minutes): 60 Discharge Plan Discharge Items Patient Disposition: Home - Self-Care Reason For Visit: CHEST PAIN Discharge Diagnosis: TIA vs symptomatic hypoglycemia progression of diabetic nephropathy to CKD, Stage IV Anemia of chronic disease (CKD) Type I DM Condition: Good Discharge Goals: Improve disease control Activity: Resume your previous activity Non-emergency contact: Primary Care Provider and Saxophone Teacher Call non-emergency contact if: you have any medication questions, your symptoms worsen, your pain is not controlled and you have a fever Follow-up/Referrals: Kellie Bains MD, PhD [Physician] - Bam Benson MD [Physician] - Ciro Singh MD [Primary Care Provider] - Diet: Low Potassium (2gm) and Low Sodium (2gm) Addtl Provider Instructions: Please take all medications as instructed. Please followup with Nephrology, Vascular Surgery, Neurology, and Primary Care provider as instructed. Some follow-up appointments are listed below. 08/12/2018 10:00 AM GILBERT Fish AT [facility] 08/12/2018 6:00 PM [facility] [id number] 11:05AM Dr. Ciro Singh You will need to have some non-fasting bloodwork performed at your local [facility] lab, which will be ordered by Nephrology to be done on 08/17 and 08/25. You will need to be set up for an outpatient event monitor to complete the workup for TIA. This can be ordered/set up through Dr. Singh's office. As discussed, please continue to use the lower basal/bolus rates and do not adjust until seen by your glycemic pharmacist or primary care physician. It was a pleasure taking care of you! Please call if you have any questions or problems. You can reach a Eugenio hospitalist on duty at [facility] 24 hours a day by calling [phone]. Take care of yourself. DO Eugenio Rabago Hospitalist Prescriptions: New clopidogrel 75 mg Tablet 75 mg PO QAM Qty: 30 RF: 1 amlodipine [Norvasc] 10 mg tablet 10 mg PO DAILY Qty: 30 RF: 1 atorvastatin 40 mg Tablet 40 mg PO HS Qty: 30 RF: 1 doxazosin 2 mg Tablet 2 mg PO HS Qty: 30 RF: 0 hydralazine 25 mg Tablet 25 mg PO BID@1200,2100 Qty: 60 RF: 1 torsemide 20 mg Tablet 10 mg PO QAM Qty: 15 RF: 0 Continue insulin aspart U-100 [Novolog U-100 Insulin aspart] 100 unit/mL Solution 1 sliding scale dose Continuous Subcutaneous Infusion UD RF: 0 cholecalciferol (vitamin D3) [Vitamin D3] 5,000 unit Tablet 5,000 units PO DAILY RF: 0 Discontinued amlodipine 5 mg tablet 5 mg PO DAILY RF: 0 lisinopril 2.5 mg tablet 2.5 mg PO DAILY RF: 0 Visit Report Forms: My [facility] Portal Stand-Alone Forms: [facility] Discharge Orders: Discharge Order (Routine); Ordered 08/10/18 Ordered By: Alisha Palomino Admission Data Admit Date/Time: 08/05/18 18:31 Attending Provider: Alisha Palomino Admit Provider: Bam Galvez Primary Care Provider: Ciro Singh Other Providers: Kellie Bains ; Bam Benson ; Bam Galvez Service: Telemetry Medical Other Interventions: Discharge Summary Assessment (RN) Last Done: 08/10/18 13:54 DC Date/Time DO NOT enter until pt leaves facility: 08/10/18 15:12
== END 2018-08-10 15:12 | disposition home or self-care (01) | DRG 683 ==
LOC: ED 14:38 → SUATTDRO 18:31 → 2N 18:31

== ENCOUNTER 2018-09-28 12:30 | Inpatient (IN) ==
[2018-09-28] MEDS ORDERED: NITROGLYCERIN 2% OINTMENT 30GM TUBE EXT STA (13:14)
[2018-09-28 13:32] LABS: Basophils # (auto) 0.12 K/uL (0-0.2); Basophils % (auto) 3.3 %; Eosinophils # (auto) 0.14 K/uL (0-0.5); Eosinophils % (auto) 3.8 %; Hematocrit (blood only) 24.6 % (42-52); Hemoglobin 8.3 g/dL (14.0-18.0); Immature Granulocytes # (auto) 0.01 K/uL (0.00-0.02); Immature Granulocytes % (auto) 0.3 %; Lymphocytes # (auto) 1.18 K/uL (1.2-3.4); Lymphocytes % (auto) 32.2 %; Mean Corpuscular Hgb Conc 33.7 g/dL (32-36); Mean Corpuscular Volume 86.6 fL (80-100); Mean Platelet Volume 9.4 fL (7.4-10.4); Monocytes # (auto) 0.47 K/uL (0.11-0.59); Monocytes % (auto) 12.8 %; Neutrophils # (auto) 1.75 K/uL (1.4-6.5); Neutrophils % (auto) 47.6 %; Platelet Count 201 K/uL (130-400); RDW Coefficient of Variation 14.5 % (11.5-14.5); RDW Standard Deviation 45.6 fL (36.4-46.3); Red Blood Count 2.84 M/uL (4.7-6.1); White Blood Count 3.67 K/uL (4.8-10.8)
[2018-09-28 13:40] LABS: Alanine Aminotransferase 27 U/L (12-78); Albumin Level 2.7 gm/dl (3.4-5.0); Aspartate Aminotransferase 13 U/L (15-37); BUN Creatinine Ratio 13.1 (10-20); Blood Urea Nitrogen 54 mg/dl (7-18); Calcium 8.7 mg/dl (8.5-10.1); Carbon Dioxide 21 mmol/L (21-32); Chloride 111 mmol/L (98-107); Creatinine Clr Calc Pharmacy 25.9 ml/min; Est GFR (African American) 20.3; Est GFR (Non-African American) 17.5; Glucose 84 mg/dl (70-99); Potassium 4.3 mmol/L (3.5-5.1); Sodium 141 mmol/L (136-145)
[2018-09-28 13:45] LABS: Albumin Globulin Ratio 0.8 (0.9-2); Alkaline Phosphatase 105 U/L (45-117); Bilirubin,Total 0.3 mg/dl (0.2-1); Globulin 3.5 gm/dl (2.5-4.0); Total Protein 6.2 gm/dl (6.4-8.2); Troponin I < 0.015 ng/ml (0-0.045)
--- NOTE | 2018-09-28 13:51 | XRay Report ---
SINGLE VIEW CHEST CLINICAL HISTORY: Atypical chest pain. FINDINGS: An AP, portable, upright chest radiograph is compared to study dated 08/28/2018. The examinat ion is degraded by portable technique and patient rotation. The heart appears enlarged. There is pro minence of the central pulmonary vessels. A trace right pleural effusion is suspected. There is mild bibasilar atelectasis. No airspace consolidation is seen typical for pneumonia. No pneumothorax is se en. The bony thorax is grossly intact. IMPRESSION: 1. The heart appears enlarged and there is prominence of the central pulmonary vessels. Correlate cli nically for evidence of mild congestive change. 2. Consider correlation with a dedicated PA and lateral examination for better assessment. 3. Suspect a trace right pleural effusion. Electronically signed by: Alvarez Juan M.D. 09/28/2018 1:50 PM
[2018-09-28 13:56] LABS: RBC Morphology Unremarkable
--- NOTE | 2018-09-28 14:27 | XRay Report ---
XR chest 2V routine CLINICAL HISTORY: 33 years-old Male presenting with left cp. TECHNIQUE: PA and lateral views of the chest were obtained. COMPARISON: Portable chest x-ray 09/28/2018 performed at 1:24 PM. FINDINGS: Moderate cardiopericardial silhouette enlargement. Right basilar opacity with small right pleural eff usion. No pneumothorax. Osseous structures normal. Upper abdomen normal. IMPRESSION: 1. Enlargement of the cardiopericardial silhouette. This indicates cardiomegaly or a pericardial eff usion. 2. Small right pleural effusion with right basilar passive atelectasis. Electronically signed by: Kareem Mendoza M.D. 09/28/2018 2:26 PM
--- NOTE | 2018-09-28 14:44 | History & Physical Report ---
Date of Service September 28, 2018 Assessment & Plan (1) Acute chest pain: Atypical Chest Pain: Risk factors: H/O HTN, HLP, Former Tobacco use disorder, DM Type I DD: Constochondritis, Pericardial effusion, R/O ACS Initial troponin:Negative EKG shows: Unchanged from Prior --CXR: Enlargement of the cardiopericardial silhouette. This indicates cardiomegaly or a pericardial effusion. Small right pleural effusion with right basilar passive atelectasis. Check ECHO to r/o pericardial effusion, wall motion abnormality Trend serial cardiac enzymes, repeat EKG, fasting lipid panel in AM Continue Plavix, statins, beta blockers Oxygen PRN NPO after midnight Consider Cardiology consult if necessary DM Type I Diabetic retinopathy, nephropathy, neuropathy, Charcot foot Continue Insulin Pump Last A1C: 8.6 on 09/27/18 Monitor BGs CKD IV Cr:4.15 --New baseline Recently had fistula placement Consider Nephrology consult if renal function worsens HTN Mildly elevated Continue home medications monitor H/O Neurogenic bladder Bladder scan PRN Patient Straight Cath twice a day at baseline TIA Continue Plavix, Lipitor Anemia of chronic disease Received Procrit yesterday Hb at baseline monitor DVT Px: Heparin SQ Code Status Full Code History of Present Illness Primary Care Provider: Ciro Singh MD Patient is a 33 yr male with PMH of DM Type I on Insulin Pump, Diabetic retinopathy, nephropathy, neuropathy, Charcot foot, CKD IV, HTN, Neurogenic bladder, Former smoker, TIA, Anemia of chronic disease and other problems presents with history of chest pain since 3 days ago. He reports chest pain is constant, dull/pressure like pain, retrosternal, 3/10 intensity, increased with deep breathing and on exertion, non radiating, relived with NTG while in ED. Also reports dyspnea on exertion since many months. Reports dry cough since 2 days. Reports nausea but no vomiting. Patient had fistula placed on his right arm 2 weeks ago. He states, he was evaluated in Nephrology clinic yesterday and was noted to have elevated Troponin and he was advised to go to ED for further evaluation. Denies any history of palpitations, diaphoresis, wheezing, fever, chills, trauma, headache, vomiting, abdominal pain, diarrhea, dysuria, dizziness. Allergies Allergy/AdvReac Type Severity Reaction Status Date / Time No Known Allergies Allergy Verified 09/28/18 14:12 Home Medications Home Medications Medication Instructions Recorded Confirmed Type amlodipine [Norvasc] 10 mg PO QAM 09/28/18 09/28/18 History atorvastatin 40 mg PO HS 09/28/18 09/28/18 History calcium acetate 667 mg PO TID 09/28/18 09/28/18 History carvedilol 12.5 mg PO BID 09/28/18 09/28/18 History cholecalciferol (vitamin D3) 5,000 unit PO QAM 09/28/18 09/28/18 History [Vitamin D3] clopidogrel 75 mg PO QAM 09/28/18 09/28/18 History doxazosin 2 mg PO HS 09/28/18 09/28/18 History epoetin fredy [Procrit] 10,000 unit/kg SUBCUT UD 09/28/18 09/28/18 History insulin aspart U-100 [Novolog 0 unit SUBCUT UD 09/28/18 09/28/18 History U-100 Insulin aspart] torsemide 40 mg PO QAM 09/28/18 09/28/18 History Past Med/Surg History Medical History TIA (transient ischemic attack) Anemia in chronic kidney disease (CKD) Nephrotic syndrome due to diabetes mellitus CKD (chronic kidney disease) stage 4, GFR 15-29 ml/min Neurological symptoms (Acute) DVT prophylaxis Fatty liver (Chronic) Charcot foot due to diabetes mellitus (Chronic) Nausea and vomiting (Chronic) Urinary retention (Chronic) CKD (chronic kidney disease), stage III (Chronic) Diabetic nephropathy (Chronic) Diabetic neuropathy (Chronic) Diabetic retinopathy (Chronic) 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) JUANA (acute kidney injury) (Acute) Anemia (Chronic) Hyperglycemia (Acute) Hypertension (Chronic) Surgical History Hx of eye surgery Family History Mother Hypertension Grandfather (Maternal) Diabetes mellitus Grandmother (Maternal) Diabetes mellitus Grandmother (Paternal) Diabetes mellitus Other Heart disease Social History marital status: single Current Living Situation: Alone current occupational status: employed Other Information That Helps Us Care for You: No Feels Safe at Home: Yes Safety Concerns: Feels Safe At This Time Smoking Status: Former smoker Do You Dip or Chew Tobacco: No Smoking End Date: Jun 2017 Hx Alcohol Use: No Hx Substance Use: No Beliefs That Will Affect Care: None Preferred Language: Argentine Communication Ability: Effective Contract Serviceman Required: No Review of Systems All systems reviewed & are unremarkable except as noted in HPI & below Physical Exam 2 Vital Signs (Past 24 Hours): Last Vital Signs Temp 36.5 C 09/28/18 12:39 Pulse 69 09/28/18 13:28 Resp 20 09/28/18 13:28 BP 141/85 H 09/28/18 13:28 Pulse Ox 96 09/28/18 13:28 Physical Exam: Physical Exam: Vitals signs as noted above General Appearance:Moderately built and nourished, no apparent distress Head: normocephalic, Atraumatic Eyes: normal inspection, EOMI Neck: supple, Trachea midline Respiratory/Chest: Normal breath sounds, CTA, Reproducible on palpation Cardiovascular: S1, S2, No murmur Abdomen/GI:Soft, Non tender, Bowel sounds present Extremities/Musculoskelatal:normal inspection, chronic B/L LE edema, +R charcot foot Neurologic/Psych:AAOX3, grossly no focal neurological deficits Skin: normal color, warm Results & Data Laboratory Results Short CBC 09/28/18 Range/Units 12:55 WBC 3.67 L (4.8-10.8) K/uL Hgb 8.3 L (14.0-18.0) g/dL Hct 24.6 L (42-52) % Plt Count 201 (130-400) K/uL BMP 09/28/18 12:55 Sodium 141 Potassium 4.3 Chloride 111 H Carbon Dioxide 21 BUN 54 H Creatinine 4.15 H Glucose 84 Calcium 8.7 Cardiac Enzymes 09/28/18 Range/Units 12:55 Troponin I < 0.015 (0-0.045) ng/ml Liver Function 09/28/18 Range/Units 12:55 Total Bilirubin 0.3 (0.2-1) mg/dl AST 13 L (15-37) U/L ALT 27 (12-78) U/L Alkaline Phosphatase 105 (45-117) U/L Albumin 2.7 L (3.4-5.0) gm/dl Diagnostic Findings CXR: 1. Enlargement of the cardiopericardial silhouette. This indicates cardiomegaly or a pericardial effusion. 2. Small right pleural effusion with right basilar passive atelectasis. ECG Additional Comments: EKG:Normal sinus rhythm Poor R wave progression, consider anterior AL vs. lead placement vs. LVH Unchanged from prior EKG
[2018-09-28] MEDS ORDERED: PHARMACY GLYCEMIC MGMT CONSULT STA (17:30)
[2018-09-28] MEDS ORDERED: GLUCAGON FOR INJ 1 MG VIAL SQ PRN (17:30)
[2018-09-28] MEDS ORDERED: DEXTROSE 50% 50 ML SYRINGE IV PRN (17:30)
[2018-09-28] MEDS ORDERED: ACETAMINOPHEN 325 MG TAB PO PRN (17:30)
[2018-09-28] MEDS ORDERED: NITROGLYCERIN SL 0.4 MG/TAB TAB SL PRN (17:30)
[2018-09-28] MEDS ORDERED: CARBOHYDRATES FOR HYPOGLYCEMIA PO PRN (17:30)
[2018-09-28] MEDS ORDERED: GLUCOSE 10 TABS/TUBE PO PRN (17:30)
[2018-09-28] MEDS ORDERED: ONDANSETRON INJ 2 MG/ML 2 ML VIAL IV PRN (17:30)
[2018-09-28] MEDS ORDERED: GLUCOSE 40% GEL 15 GM TUBE PO PRN (17:30)
[2018-09-28] MEDS ORDERED: INSULIN ASPART 100 UNITS/ML VIAL SC PRN (18:06)
[2018-09-28] MEDS ORDERED: PHARMACY GLYCEMIC MGMT CONSULT PRN (18:15)
--- NOTE | 2018-09-28 18:29 | Emergency Department Note ---
Entered by Haylee Garber acting as a scribe for History of Present Illness General Chief complaint: Abnormal Labs/Diagnostic Testing Stated complaint: ELEVATED TROPONIN LEVELS IN LAB WORK Source: patient History of Present Illness Onset (ago): day(s) 3 Location: chest Radiation: non-radiation Pain Consistency: + constant Maximum Pain Intensity: 3 Quality: + other (weight sitting on chest) Exacerbated By: + movement (exertion) and + other (first getting up); not by eating and not by rest (lying down) Associated symptoms: + denies other symptoms (lightheadedness, leg pain), + shortness of breath and + other (leg swelling); no diaphoresis The patient is a 33 year old male who presents to the Emergency Room with complaints of constant chest pain starting 3 days ago. The patient states that the pain is in the middle of his chest and feels like there is a weight sitting on it. He notes that the pain is worse when he first gets up and when he exerts himself, such as bending or lifting. He notes that it is not worse with eating or lying down. The patient states that he has been short of breath, but has been for a few weeks when he walks around. He states that he just thought it was from his kidney failure like his leg swelling. The patient notes that he had a fistula placed 2 weeks ago in his right arm and will be started on dialysis when his kidney disease completely matures. He notes that it has progressively becoming worse over the last 3-4 months. 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 He states that his troponin came back elevated and she called him to have him sent here. The patient notes that he was a smoker and quit 6 months ago. He states that he smoked a pack a day for 15 years. The patient denies the pain radiating, sweating, lightheadedness, leg pain, use of cocaine or other drugs, use of Viagra or similar products, and a family history of early cardiac problems. Home Medications Home Medications Medication Instructions Recorded Confirmed Type amlodipine [Norvasc] 10 mg PO QAM 09/28/18 09/28/18 History atorvastatin 40 mg PO HS 09/28/18 09/28/18 History calcium acetate 667 mg PO TID 09/28/18 09/28/18 History carvedilol 12.5 mg PO BID 09/28/18 09/28/18 History cholecalciferol (vitamin D3) 5,000 unit PO QAM 09/28/18 09/28/18 History [Vitamin D3] clopidogrel 75 mg PO QAM 09/28/18 09/28/18 History doxazosin 2 mg PO HS 09/28/18 09/28/18 History epoetin fredy [Procrit] 10,000 unit/kg SUBCUT UD 09/28/18 09/28/18 History insulin aspart U-100 [Novolog 0 unit SUBCUT UD 09/28/18 09/28/18 History U-100 Insulin aspart] torsemide 40 mg PO QAM 09/28/18 09/28/18 History Allergies Allergy/AdvReac Type Severity Reaction Status Date / Time No Known Allergies Allergy Verified 09/28/18 14:12 Past Med/Surg History Medical History TIA (transient ischemic attack) Anemia in chronic kidney disease (CKD) Nephrotic syndrome due to diabetes mellitus CKD (chronic kidney disease) stage 4, GFR 15-29 ml/min Neurological symptoms (Acute) DVT prophylaxis Fatty liver (Chronic) Charcot foot due to diabetes mellitus (Chronic) Nausea and vomiting (Chronic) Urinary retention (Chronic) CKD (chronic kidney disease), stage III (Chronic) Diabetic nephropathy (Chronic) Diabetic neuropathy (Chronic) Diabetic retinopathy (Chronic) 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) JUANA (acute kidney injury) (Acute) Anemia (Chronic) Hyperglycemia (Acute) Hypertension (Chronic) Surgical History Hx of eye surgery Family History Mother Hypertension Grandfather (Maternal) Diabetes mellitus Grandmother (Maternal) Diabetes mellitus Grandmother (Paternal) Diabetes mellitus Other Heart disease Social History marital status: single Current Living Situation: Alone current occupational status: employed Other Information That Helps Us Care for You: No Feels Safe at Home: Yes Safety Concerns: Feels Safe At This Time Smoking Status: Former smoker Do You Dip or Chew Tobacco: No Smoking End Date: Jun 2017 Hx Alcohol Use: No Hx Substance Use: No Beliefs That Will Affect Care: None Preferred Language: Indonesian Communication Ability: Effective Senior Bi Developer Required: No Review of Systems See HPI for pertinent positives & negatives. and A total of 10 systems reviewed and were otherwise negative Physical Exam Vital Signs Vital Signs - 24 hr 09/28/18 12:39 09/28/18 13:25 09/28/18 13:28 Temperature 36.5 C Temperature Source Oral Sepsis Recent Fever Within 48 Hours No Sepsis New/Unexplained Change in Mental Status No Sepsis Action Taken by Nursing No Action Required Pulse Rate 70 Pulse Rate [Left Finger] 69 Pulse Rhythm [Left Finger] Pulse Strength [Left Finger] Respiratory Rate 20 20 Respiratory Effort / Characteristics Respiratory Depth Normal Respiratory Pattern Blood Pressure 131/82 Blood Pressure [Left Arm] 141/85 H Blood Pressure Mean 98 Blood Pressure Mean [Left Arm] 103 Blood Pressure Position [Left Arm] Pulse Oximetry 99 96 96 Oxygen Delivery Method Room Air Room Air 09/28/18 16:04 09/28/18 16:15 09/28/18 16:43 Temperature Temperature Source Sepsis Recent Fever Within 48 Hours Sepsis New/Unexplained Change in Mental Status Sepsis Action Taken by Nursing Pulse Rate 72 Pulse Rate [Left Finger] 72 Pulse Rhythm [Left Finger] Pulse Strength [Left Finger] Respiratory Rate 18 19 Respiratory Effort / Characteristics Respiratory Depth Respiratory Pattern Blood Pressure 150/91 H Blood Pressure [Left Arm] 150/91 H Blood Pressure Mean Blood Pressure Mean [Left Arm] 110 Blood Pressure Position [Left Arm] Pulse Oximetry 98 98 Oxygen Delivery Method Room Air Room Air 09/28/18 17:36 Temperature 36.7 C Temperature Source Oral Sepsis Recent Fever Within 48 Hours Sepsis New/Unexplained Change in Mental Status Sepsis Action Taken by Nursing Pulse Rate Pulse Rate [Left Finger] 74 Pulse Rhythm [Left Finger] Regular Pulse Strength [Left Finger] Normal Respiratory Rate 18 Respiratory Effort / Characteristics Non-Labored Spontaneous Normal for Patient Respiratory Depth Normal Respiratory Pattern Regular Blood Pressure Blood Pressure [Left Arm] 150/72 H Blood Pressure Mean Blood Pressure Mean [Left Arm] 98 Blood Pressure Position [Left Arm] Lying Pulse Oximetry 98 Oxygen Delivery Method Room Air Constitutional: Vital signs reviewed. Eyes: Pupils are equal round reactive to light. Conjunctiva are noninjected. ENT: Pharynx is clear without erythema or exudate. Mucous membranes are moist. Neck supple without meningeal signs. Respiratory: Clear to auscultation bilaterally. Breath sounds are equal bilaterally. Cardiovascular: Regular rate and rhythm. No rubs or gallops. GI: Soft, nondistended and nontender. Bowel sounds are present. Musculoskeletal: Right arm AV fistula with palpable thrill. Charcot Ruth foot right side in a boot. Integumentary: No cyanosis. Neurological: The patient is awake and alert. No focal deficits. Psychiatric: Normal affect. Course 1306: Past medical records reviewed. The patient was evaluated in room B7, and a complete history and physical examination were performed. 1409: I reevaluated the patient and his chest pain is completely gone. His troponin at the office was a high sensitivity that was 70. 1413: I discussed the patient's case with Dr. Suleiman Mayes. He is leaving the decision to be admitted or not up to the hospitalist. 1421: I reviewed the patient's case with KATHERINE Maria. She will evaluate the patient for further management. 1426: I reevaluated the patient and discussed his test results with him. I discussed the treatment plan with him. He verbally agrees and understands. Consultations Consultation #1: I discussed the patient's case with Dr. Suleiman Mayes. He is leaving the decision to be admitted or not up to the hospitalist. Time: 14:13 Consultation #2: I reviewed the patient's case with KATHERINE Maria. She will evaluate the patient for further management. Time: 14:21 Administered Medications Discontinued Medications Miscellaneous Information (Consult Glycemic Management Pharmacy) 1 ea N/A NOW STA Stop: 09/28/18 17:31 Last Admin: 09/28/18 18:02 Dose: 1 ea Nitroglycerin (Nitro-Bid 2%) 0.5 inch EXT NOW STA Stop: 09/28/18 13:15 Last Admin: 09/28/18 13:36 Dose: 0.5 inch Medical Decision Making Differential Diagnosis Differential diagnoses include ESRD, falsely elevated troponin, unstable angina , AL, pleurisy. Medical Records Attestation: I reviewed the patient's medical records. Home Medications Current Medication List: was personally reviewed by me Laboratory Data Attestation: I reviewed the patient's lab results. Result diagrams: 09/28/18 12:55 09/28/18 12:55 Lab Results 09/28/18 09/28/18 09/28/18 Range/Units 12:55 12:55 13:23 WBC 3.67 L (4.8-10.8) K/uL RBC 2.84 L (4.7-6.1) M/uL Hgb 8.3 L (14.0-18.0) g/dL Hct 24.6 L (42-52) % MCV 86.6 (80-100) fL MCH 29.2 (25-34) pg MCHC 33.7 (32-36) g/dL RDW Std Deviation 45.6 (36.4-46.3) fL RDW Coeff of Ralph 14.5 (11.5-14.5) % Plt Count 201 (130-400) K/uL MPV 9.4 (7.4-10.4) fL Immature Gran % (Auto) 0.3 % Neut % (Auto) 47.6 % Lymph % (Auto) 32.2 % Assumption % (Auto) 12.8 % Eos % (Auto) 3.8 % Baso % (Auto) 3.3 % Immature Gran # (Auto) 0.01 (0.00-0.02) K/uL Neut # (Auto) 1.75 (1.4-6.5) K/uL Lymph # (Auto) 1.18 L (1.2-3.4) K/uL Assumption # (Auto) 0.47 (0.11-0.59) K/uL Eos # (Auto) 0.14 (0-0.5) K/uL Baso # (Auto) 0.12 (0-0.2) K/uL RBC Morphology Unremarkable Sodium 141 (136-145) mmol/L Potassium 4.3 (3.5-5.1) mmol/L Chloride 111 H (98-107) mmol/L Carbon Dioxide 21 (21-32) mmol/L Anion Gap 8.0 (3-11) BUN 54 H (7-18) mg/dl Creatinine 4.15 H (0.6-1.4) mg/dl Est Cr Clr Drug Dosing 25.9 ml/min Est GFR ( Amer) 20.3 Est GFR (Non-Af Amer) 17.5 BUN/Creatinine Ratio 13.1 (10-20) Glucose 84 (70-99) mg/dl Calcium 8.7 (8.5-10.1) mg/dl Total Bilirubin 0.3 (0.2-1) mg/dl AST 13 L (15-37) U/L ALT 27 (12-78) U/L Alkaline Phosphatase 105 (45-117) U/L POC Troponin I < 0.03 (0-0.045) ng/ml Troponin I < 0.015 (0-0.045) ng/ml Total Protein 6.2 L (6.4-8.2) gm/dl Albumin 2.7 L (3.4-5.0) gm/dl Globulin 3.5 (2.5-4.0) gm/dl Albumin/Globulin Ratio 0.8 L (0.9-2) Lipase 110 (73-393) U/L Imaging Data Radiologist's Impression: Radiology results as stated below per my review and the radiologist's interpretation: SINGLE VIEW CHEST CLINICAL HISTORY: Atypical chest pain. FINDINGS: An AP, portable, upright chest radiograph is compared to study dated . The examination is degraded by portable technique and patient rotation. The heart appears enlarged. There is prominence of the central pulmonary vessels. A trace right pleural effusion is suspected. There is mild bibasilar atelectasis. No airspace consolidation is seen typical for pneumonia. No pneumothorax is seen. The bony thorax is grossly intact. IMPRESSION: 1. The heart appears enlarged and there is prominence of the central pulmonary vessels. Correlate clinically for evidence of mild congestive change. 2. Consider correlation with a dedicated PA and lateral examination for better assessment. 3. Suspect a trace right pleural effusion. Electronically signed by: Alvarez Juan M.D. 09/28/2018 1:50 PM XR chest 2V routine CLINICAL HISTORY: 33 years-old Male presenting with left cp. TECHNIQUE: PA and lateral views of the chest were obtained. COMPARISON: Portable chest x-ray 09/28/2018 performed at 1:24 PM. FINDINGS: Moderate cardiopericardial silhouette enlargement. Right basilar opacity with small right pleural effusion. No pneumothorax. Osseous structures normal. Upper abdomen normal. IMPRESSION: 1. Enlargement of the cardiopericardial silhouette. This indicates cardiomegaly or a pericardial effusion. 2. Small right pleural effusion with right basilar passive atelectasis. Electronically signed by: Kareem Mendoza M.D. 09/28/2018 2:26 PM ECG Data Attestation: I personally reviewed and interpreted this ECG as follows: Indication: chest pain Rate (beats per minute): 70 Rhythm: normal sinus Findings: no PVC and no ST elevation Blood Pressure Blood Pressure Findings: Elevated blood pressure Blood Pressure Disposition: Referred to patients primary care provider MDM Narrative I did perform a limited focused review of portions of the patient's old chart on the electronic medical record. The patient has had no recent pertinent visits to this hospital. He had a Creatinine of 4.3 on February 25. I did evaluate the patient as noted above. The patient is presenting with exertional chest heaviness intermittently. He had a positive troponin at his doctor's office and was sent here. IV access was established. The patient was placed on a continuous site monitor. I did order and personally review the patient's 12-lead EKG and chest x-ray as described above. His twelve-lead EKG demonstrated no acute ischemic changes. Chest x-ray demonstrated cardiomegaly and a small pleural effusion on the right side. I did order and review the patient's blood work as noted in the electronic medical record. Troponin is negative here. I did obtain records from the [employer] system. The patient had a high-sensitivity troponin performed which was positive at the doctor's office. I did treat the patient with nitroglycerin paste. On reassessment the patient states that his chest pain is now completely resolved. Given his numerous risk factors for coronary artery disease and a positive high- sensitivity troponin I did recommend hospitalization for further evaluation. He was agreeable with this plan. I did discuss the case with the hospitalist and case hardener. Impression & Plan Acute chest pain, End-stage renal disease (ESRD) Discharge Plan Visit Data *Final* Discharge Date/Time: 09/28/18 16:43 Chief Complaint: Abnormal Labs/Diagnostic Testing Stated Complaint: ELEVATED TROPONIN LEVELS IN LAB WORK ED Provider: Lang Laughlin Discharge Problem: Acute chest pain, End-stage renal disease (ESRD) Patient Disposition: Admitted As Inpatient Discharge Instructions Interventions: ED Discharge Assessment Last Done: 09/28/18 16:43 The scribe's documentation has been prepared under my direction and personally reviewed by me in its entirety. I confirm that the note above accurately reflects all work, treatment, procedures, and medical decision making performed by me.
[2018-09-28 18:47] LABS: INR 1.1 (0.9-1.1); Prothrombin Time 11.3 Seconds (9.0-12.0)
[2018-09-28] MEDS: CALCIUM ACETATE 667 MG CAP PO SCH (20:00)
[2018-09-28] MEDS: DOXAZosin MESYLATE TAB 2 MG TAB PO SCH (20:04)
[2018-09-28] MEDS: CARVEDILOL 12.5 MG TAB PO SCH (20:05)
[2018-09-28] MEDS: ATORVASTATIN 40 MG TAB PO SCH (20:07)
[2018-09-28] MEDS: HEPARIN SOD 5,000 UNIT/0.5 ML VIAL SQ SCH (20:17)
[2018-09-28] MEDS ORDERED: NovoLOG INSULIN PUMP SCH (21:00)
[2018-09-29] MEDS ORDERED: INSULIN ASPART 100 UNITS/ML VIAL SC ONE (04:00)
[2018-09-29] MEDS: NovoLOG INSULIN PUMP SCH ×4 (06:11→22:14)
[2018-09-29 07:12] LABS: Hematocrit (blood only) 23.4 % (42-52); Mean Corpuscular Hgb Conc 34.2 g/dL (32-36); Mean Platelet Volume 9.6 fL (7.4-10.4); Platelet Count 174 K/uL (130-400); RDW Coefficient of Variation 14.5 % (11.5-14.5); Red Blood Count 2.69 M/uL (4.7-6.1); White Blood Count 3.95 K/uL (4.8-10.8)
[2018-09-29 07:40] LABS: BUN Creatinine Ratio 12.4 (10-20); Blood Urea Nitrogen 51 mg/dl (7-18); Calcium 8.1 mg/dl (8.5-10.1); Carbon Dioxide 21 mmol/L (21-32); Chloride 115 mmol/L (98-107); Est GFR (African American) 20.4; Est GFR (Non-African American) 17.6; Glucose 75 mg/dl (70-99); Magnesium 2.2 mg/dl (1.8-2.4); Potassium 3.9 mmol/L (3.5-5.1); Sodium 143 mmol/L (136-145)
[2018-09-29 07:51] LABS: Chol HDL Ratio 3; Cholesterol 126 mg/dl (0-200); HDL Cholesterol 44 mg/dl; LDL Cholesterol Calculated 63 mg/dl; Triglycerides 97 mg/dl (0-150); Troponin I < 0.015 ng/ml (0-0.045); VLDL Cholesterol 19 mg/dl
[2018-09-29] MEDS: AMLODIPINE BESYLATE 5 MG TAB PO SCH (08:27)
[2018-09-29] MEDS: CLOPIDOGREL BISULFATE 75 MG TAB PO SCH (08:27)
[2018-09-29] MEDS: CARVEDILOL 12.5 MG TAB PO SCH ×2 (08:27→19:49)
[2018-09-29] MEDS: TORSEMIDE 20 MG TAB PO SCH (08:27)
[2018-09-29] MEDS: HEPARIN SOD 5,000 UNIT/0.5 ML VIAL SQ SCH ×2 (08:28→19:50)
[2018-09-29] MEDS: CHOLECALCIFEROL 1,000 UNITS TAB PO SCH (08:28)
[2018-09-29] MEDS: CALCIUM ACETATE 667 MG CAP PO SCH ×3 (10:47→16:43)
--- NOTE | 2018-09-29 14:27 | Pharmacy Report ---
Glycemic Control Consultation - Date of Service September 29, 2018 - Scope Scope: Glycemic Pharmacist consulted by Dr Ndiaye on 09/28/18 for glycemic control and to write orders per [facility] inpatient glycemic control protocol - Objective Weight: 73.5 kg Accuchecks BSG (last 24hrs): 09/28/18 09/28/18 09/29/18 17:27 20:33 03:56 Glucose POC Glucose 203 H 170 H 89 09/29/18 09/29/18 09/29/18 06:09 06:49 07:22 Glucose 75 POC Glucose 74 93 09/29/18 09/29/18 10:50 11:25 Glucose POC Glucose 106 H 142 H Laboratory Data (last 24hrs): 09/29/18 06:49 Potassium 3.9 Carbon Dioxide 21 Anion Gap 7.0 Creatinine 4.13 H Est Cr Clr Drug Dosing 26.0 - Recent Pertinent Medications Outpatient Anti-diabetic Regimen: * Novolog Pump * goal range 100-150 * CF of 60 * CR of 11 * Basal rate = 0.75 unit/hr from 6737-3631; 0.875 units/hr from 2046-7325 * A1c = 8.9 % 08/06/18 The patient is currently receiving: * Novolog pump Risk Factors for Insulin Resistance: * Diet: NPO to T1DM diet - Assessment & Plan Assessment & Plan: ASSESSMENT: * Mr Hicks is a 33 y/o M with a PMH of T1DM who presents with chest pain. Patient is typically maintained on Novolog pump while hospitalized. He was made NPO at midnight for cardiac evaluation. Blood sugar this morning was lower and he was treated with glucose gel. I spoke with patient around 0800, and basal rate reduced to 50% of home rate to prevent future hypoglycemic episodes. * Spoke with patient around 1330 about increasing basal rate again. He wanted to wait until he checked his sugar 2 hours after eating uncovered 51 grams of carbohydrates. Blood sugar at 1400 was 301 mg/dL. He agreed to increase basal rate and will cover with CF. PLAN FOR INPATIENT GLYCEMIC CONTROL: * Continue insulin pump at reduced rate for now. Per previous hospitalizations this appeared okay. * Please note that the plan above was derived based on current level of insulin resistance and hospital stress. These recommendations are appropriate for inpatient admission only. Plan of care upon discharge will need to be reassessed to avoid potential outpatient hypo/hyperglycemia. Thank you.
--- NOTE | 2018-09-29 16:53 | Hospitalist Progress Note ---
Date of Service September 29, 2018 Assessment & Plan (1) Acute chest pain: Atypical Chest Pain: Risk factors: H/O HTN, HLP, Former Tobacco use disorder, DM Type I DD: Constochondritis, Pericardial effusion, R/O ACS Has been pain-free since admission Serial cardiac enzymes and EKG unremarkable for any ACS Repeat echo showed mild to moderate amount of pericardial effusion without any other other abnormalities Continue Plavix, statins, beta blockers Case discussed with vp patient No further recommendation from vp patient except the patient is to have dialysis to improve the pericardial effusion Nephrology consult DM Type I Diabetic retinopathy, nephropathy, neuropathy, Charcot foot Continue Insulin Pump Last A1C: 8.6 on 09/27/18 Monitor BGs CKD IV Cr:4.15 --New baseline Recently had fistula placement Creatinine has been increasing Nephrology consulted for probable dialysis in short time HTN Mildly elevated Continue home medications monitor H/O Neurogenic bladder Bladder scan PRN Patient Straight Cath twice a day at baseline TIA Continue Plavix, Lipitor Denies any acute symptoms Anemia of chronic disease Received Procrit yesterday Hb at baseline monitor-hemoglobin is 8.0 DVT Px: Heparin SQ Code Status Full Code Subjective Patient is a 33 yr male with PMH of DM Type I on Insulin Pump, Diabetic retinopathy, nephropathy, neuropathy, Charcot foot, CKD IV, HTN, Neurogenic bladder, Former smoker, TIA, Anemia of chronic disease and other problems presents with history of chest pain since 3 days ago 09/29 The patient was seen and examined in telemetry unit He was admitted with atypical chest pain for 3 days prior to admission There is a history of pericarditis and pericardial effusion Denies any more chest pain since admission His serial cardiac enzymes and EKGs remain unremarkable Physical Exam 2 Vital Signs (Past 24 Hours): Last Vital Signs Temp 36.5 C 09/29/18 15:43 Pulse 69 09/29/18 15:43 Resp 16 09/29/18 15:43 BP 152/88 H 09/29/18 15:43 Pulse Ox 97 09/29/18 15:43 Physical Exam: No apparent distress at rest Constitutional: WD/WN, vitals as above Eyes: PERRL, conjunctivae normal, anicteric sclerae ENMT: external ear and nose normal, oropharynx normal Neck: trachea midline, no thyromegaly Respiratory: normal respiratory effort; no respiratory distress and no labored breathing Auscultation: lungs clear to auscultation bilaterally Cardiovascular: Rate/Rhythm: regular rate and regular rhythm Heart Sounds: normal S1 and normal S2; no murmur and no cardiac rub Gastrointestinal (Abdomen): Inspection/Auscultation: abdomen normal to inspection and normal bowel sounds Percussion/Palpation: abdomen soft; abdomen nontender Neurologic: Alert, awake and oriented x3 Results & Data Laboratory Results Short CBC 09/29/18 Range/Units 06:49 WBC 3.95 L (4.8-10.8) K/uL Hgb 8.0 L (14.0-18.0) g/dL Hct 23.4 L (42-52) % Plt Count 174 (130-400) K/uL BMP 09/29/18 06:49 Sodium 143 Potassium 3.9 Chloride 115 H Carbon Dioxide 21 BUN 51 H Creatinine 4.13 H Glucose 75 Calcium 8.1 L Cardiac Enzymes 09/28/18 09/29/18 Range/Units 21:30 06:49 Troponin I < 0.015 < 0.015 (0-0.045) ng/ml Medications Administered Current Inpatient Medications Acetaminophen (Tylenol) 650 mg PO Q4H PRN PRN Reason: Pain or Fever Stop: 10/28/18 17:29 Amlodipine Besylate (Norvasc) 10 mg PO QAM EMERY Stop: 10/29/18 08:59 Last Admin: 09/29/18 08:27 Dose: 10 mg Atorvastatin Calcium (Lipitor) 40 mg PO HS EMERY Stop: 10/28/18 20:59 Last Admin: 09/28/18 20:07 Dose: 40 mg Calcium Acetate (Phoslo) 667 mg PO TIDM EMERY Stop: 10/28/18 17:59 Last Admin: 09/29/18 16:43 Dose: 667 mg Carvedilol (Coreg) 12.5 mg PO BID EMERY Stop: 10/28/18 20:59 Last Admin: 09/29/18 08:27 Dose: 12.5 mg Clopidogrel Bisulfate (Plavix) 75 mg PO QAM [facility] Stop: 10/29/18 08:59 Last Admin: 09/29/18 08:27 Dose: 75 mg Dextrose (Dextrose 50%) 25 - 50 ml IV UD PRN; Protocol PRN Reason: Hypoglycemia Protocol Stop: 10/28/18 17:29 Doxazosin Mesylate (Cardura) 2 mg PO HS EMERY Stop: 10/28/18 20:59 Last Admin: 09/28/18 20:04 Dose: 2 mg Glucagon (Glucagen) 1 mg SQ UD PRN; Protocol PRN Reason: Hypoglycemia Protocol Stop: 10/28/18 17:29 Glucose (Dex4 Glucose) 4 - 8 tabs PO UD PRN; Protocol PRN Reason: Hypoglycemia Protocol Stop: 10/28/18 17:29 Glucose (Glucose 40%) 15 - 30 gm PO UD PRN; Protocol PRN Reason: Hypoglycemia Protocol Stop: 10/28/18 17:29 Last Admin: 09/29/18 04:13 Dose: 7.5 gm Heparin Sodium (Porcine) (Heparin Sodium (Porcine)) 5,000 units SQ Q12 EMERY Stop: 10/28/18 20:59 Last Admin: 09/29/18 08:28 Dose: 5,000 units Insulin Aspart (Novolog Aspart) 0 units SC PRN PRN PRN Reason: PRN Stop: 10/28/18 18:05 Insulin Aspart (Novolog Insulin Pump) 1 ea N/A Q6 EMERY; Protocol Stop: 10/29/18 05:59 Last Admin: 09/29/18 12:01 Dose: 1 ea Miscellaneous (Carbohydrates For Hypoglycemia) 15 - 30 gm PO UD PRN PRN Reason: Hypoglycemia Treatment Stop: 10/28/18 17:29 Miscellaneous Information (Consult Glycemic Management Pharmacy) 1 ea N/A UD PRN PRN Reason: Consult Stop: 10/28/18 18:05 Nitroglycerin (Nitrostat) 0.4 mg SL UD PRN PRN Reason: Chest Pain Stop: 10/28/18 17:29 Ondansetron HCl (Zofran) 4 mg IV Q6H PRN PRN Reason: Nausea Stop: 10/28/18 17:29 Torsemide (Demadex) 40 mg PO QAM EMERY Stop: 10/29/18 08:59 Last Admin: 09/29/18 08:27 Dose: 40 mg Vitamin D (Vitamin D3) 5,000 units PO QAM EMERY Stop: 10/29/18 08:59 Last Admin: 09/29/18 08:28 Dose: 5,000 units
--- NOTE | 2018-09-29 17:16 | Nephrology Consultation ---
Date of Consultation September 29, 2018 Assessment & Plan (1) End-stage renal disease (ESRD): has avf; creatinine progressively worsening recently >> now with uremic pericardial effusion. needs to start chronic dialysis -plan catheter placement tomorrow (unclear if will be temporary or tunnelled; will before d/c need tunnelled line as avf not mature) -pls make him NPO at [place] -plan first dialysis tomorrow then Sat, then Wednesday Present on Admission?: Yes (2) Acute chest pain: chest pain brought him to hospital but no evidence of ACS; does have pericardial effusion; see below Present on Admission?: Yes (3) Pericardial effusion without cardiac tamponade: present on july imaging but appears worse here and in setting of mild chest discomfort. no tamponade physiology on TTE; no pericarditis findings on ecg -- cardiology recommends dialysis d/t concern for uremic effusion; in this clinical setting agree w/ plan and will move for catheter access to get dialysis started tomorrow Present on Admission?: Yes (4) Anemia in ESRD (end-stage renal disease): plan to start TERRI, venofer w/ dialysis >> ordered anemia studies for am Present on Admission?: Yes History of Present Illness Reason for Consultation: Advanced CKD, pericardial effusion Requesting Physician: Dr Bennett Attending Physician: Shannan Bennett MD History of Present Illness 33 y/o M w/ ESRD (rapidly progressive CKD) and maturing AVF (placed 09/15/18) whom I'm asked to see regarding ESRD, pericardial effusion. He was referred to [facility] for evaluation of 3-4 days of chest pain by nephro PA which he mentioned to her on routine visit in clinic 2 days back. ACS eval in ER negative and pt chest pain free since admission. Chest pain intermittent and positional -- worse w/ standing/moving, resolves w/ lying in bed. Pt also chronically w/ poor diet but has been having more emesis, less po than baseline prior to admission. On arrival, noted to have pericardial effusion on TTE, increased in size from effusion noted on imaging done last month during admission for TIA. 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 Allergies Allergy/AdvReac Type Severity Reaction Status Date / Time No Known Allergies Allergy Verified 09/28/18 14:12 Home Medications Home Medications Medication Instructions Recorded Confirmed Type amlodipine [Norvasc] 10 mg PO QAM 09/28/18 09/28/18 History atorvastatin 40 mg PO HS 09/28/18 09/28/18 History calcium acetate 667 mg PO TID 09/28/18 09/28/18 History carvedilol 12.5 mg PO BID 09/28/18 09/28/18 History cholecalciferol (vitamin D3) 5,000 unit PO QAM 09/28/18 09/28/18 History [Vitamin D3] clopidogrel 75 mg PO QAM 09/28/18 09/28/18 History doxazosin 2 mg PO HS 09/28/18 09/28/18 History epoetin fredy [Procrit] 10,000 unit/kg SUBCUT UD 09/28/18 09/28/18 History insulin aspart U-100 [Novolog 0 unit SUBCUT UD 09/28/18 09/28/18 History U-100 Insulin aspart] torsemide 40 mg PO QAM 09/28/18 09/28/18 History Patient History Medical History TIA (transient ischemic attack) Anemia in chronic kidney disease (CKD) Nephrotic syndrome due to diabetes mellitus CKD (chronic kidney disease) stage 4, GFR 15-29 ml/min Neurological symptoms (Acute) DVT prophylaxis Fatty liver (Chronic) Charcot foot due to diabetes mellitus (Chronic) Nausea and vomiting (Chronic) Urinary retention (Chronic) CKD (chronic kidney disease), stage III (Chronic) Diabetic nephropathy (Chronic) Diabetic neuropathy (Chronic) Diabetic retinopathy (Chronic) 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) JUANA (acute kidney injury) (Acute) Anemia (Chronic) Hyperglycemia (Acute) Hypertension (Chronic) Surgical History Hx of eye surgery Family History Mother Hypertension Grandfather (Maternal) Diabetes mellitus Grandmother (Maternal) Diabetes mellitus Grandmother (Paternal) Diabetes mellitus Other Heart disease Social History marital status: single Current Living Situation: Alone current occupational status: employed Other Information That Helps Us Care for You: No Feels Safe at Home: Yes Safety Concerns: Feels Safe At This Time Smoking Status: Former smoker Do You Dip or Chew Tobacco: No Smoking End Date: Jun 2017 Hx Alcohol Use: No Hx Substance Use: No Beliefs That Will Affect Care: None Preferred Language: Persian Communication Ability: Effective Equipment Hire Manager Required: No Review of Systems Constitutional: as per Subjective / HPI, + sweats, + fatigue and + anorexia; no chills Eyes: no worsening vision Ear, Nose, Mouth, Throat: no dry mouth Respiratory: + dyspnea on exertion; no cough Cardiovascular: as per Subjective / HPI, + chest pain with activity and + edema (stable chronic) Gastrointestinal: + bloating, + early satiety, + nausea and + vomiting; no abdominal pain and no change in bowel habits not straight cathing as often as should Musculoskeletal: + deformity and + swelling avf healing well Neurologic: no problem reported Psychiatric: no behavioral changes Endocrine: + fatigue BG have been more brittle lately Hematologic / Lymphatic: no easy bleeding Physical Exam 2 Vital Signs (Past 24 Hours): Last Vital Signs Temp 36.5 C 09/29/18 15:43 Pulse 69 09/29/18 15:43 Resp 16 09/29/18 15:43 BP 152/88 H 09/29/18 15:43 Pulse Ox 97 09/29/18 15:43 Constitutional: well developed, well nourished, average body habitus, cooperative and + diaphoretic (slight) on RA, nad, a& o x 3 Eyes: EOM intact bilaterally ENMT: Ears: no external ear abnormality Nose: no external nose abnormality Mouth: + dry oral mucous membranes Neck: no nuchal rigidity Respiratory: normal respiratory effort Auscultation: + diminished lung sounds Cardiovascular: Rate/Rhythm: regular rate and regular rhythm Heart Sounds: + cardiac rub (possible; heard best R lower sternal border, more intense w/ leaning forward) Extremities: + edema (trace-1+) and + AV fistula (RUE + t/b ) Gastrointestinal (Abdomen): Inspection/Auscultation: normal bowel sounds Percussion/Palpation: abdomen soft; abdomen nontender Musculoskeletal: Extremities: strength 5/5 throughout Skin: no rashes, warm and dry + pallor Neurologic: soria, fluent speech, no tremor Psychiatric: A+Ox3, euthymic affect Insight: good insight Genitourinary: no solorzano Results & Data Laboratory Results Abnormal lab results 09/28/18 09/28/18 09/29/18 Range/Units 17:27 20:33 06:49 WBC 3.95 L (4.8-10.8) K/uL RBC 2.69 L (4.7-6.1) M/uL Hgb 8.0 L (14.0-18.0) g/dL Hct 23.4 L (42-52) % Chloride (98-107) mmol/L BUN (7-18) mg/dl Creatinine (0.6-1.4) mg/dl POC Glucose 203 H 170 H (70-99) Calcium (8.5-10.1) mg/dl Phosphorus (2.5-4.9) mg/dl 09/29/18 09/29/18 09/29/18 Range/Units 06:49 10:50 11:25 WBC (4.8-10.8) K/uL RBC (4.7-6.1) M/uL Hgb (14.0-18.0) g/dL Hct (42-52) % Chloride 115 H (98-107) mmol/L BUN 51 H (7-18) mg/dl Creatinine 4.13 H (0.6-1.4) mg/dl POC Glucose 106 H 142 H (70-99) Calcium 8.1 L (8.5-10.1) mg/dl Phosphorus 5.0 H (2.5-4.9) mg/dl 09/29/18 09/29/18 Range/Units 16:17 16:32 WBC (4.8-10.8) K/uL RBC (4.7-6.1) M/uL Hgb (14.0-18.0) g/dL Hct (42-52) % Chloride (98-107) mmol/L BUN (7-18) mg/dl Creatinine (0.6-1.4) mg/dl POC Glucose 322 H 309 H (70-99) Calcium (8.5-10.1) mg/dl Phosphorus (2.5-4.9) mg/dl Diagnostic Findings TTE today mild [facility] EF 60% normal diastolic function mild - moderate pericardial effusion w/ no tamponade seen
[2018-09-29] MEDS: DOXAZosin MESYLATE TAB 2 MG TAB PO SCH (19:48)
[2018-09-29] MEDS: ATORVASTATIN 40 MG TAB PO SCH (19:50)
[2018-09-30] MEDS ORDERED: HydrALAZINE 10 MG TAB PO PRN (01:37)
[2018-09-30] MEDS: NovoLOG INSULIN PUMP SCH ×3 (05:27→19:38)
[2018-09-30 07:58] LABS: BUN Creatinine Ratio 11.8 (10-20); Creatinine Clr Calc Pharmacy 23.3 ml/min; Est GFR (African American) 17.8; Est GFR (Non-African American) 15.4; Potassium 4.2 mmol/L (3.5-5.1)
[2018-09-30] MEDS ORDERED: EPOETIN ALFA 10,000 UNITS/ML VIAL IV SCH (08:00)
[2018-09-30] MEDS ORDERED: SODIUM CHLORIDE 0.9% 1000ML 1,000 ML IV PRN (08:00)
[2018-09-30] MEDS: TORSEMIDE 20 MG TAB PO SCH (08:21)
[2018-09-30] MEDS: CARVEDILOL 12.5 MG TAB PO SCH ×2 (08:21→20:29)
[2018-09-30] MEDS: CHOLECALCIFEROL 1,000 UNITS TAB PO SCH (08:23)
[2018-09-30] MEDS: AMLODIPINE BESYLATE 5 MG TAB PO SCH (08:23)
[2018-09-30] MEDS: CALCIUM ACETATE 667 MG CAP PO SCH ×3 (08:24→19:38)
--- NOTE | 2018-09-30 08:31 | Nephrology Progress Note ---
Date of Service September 30, 2018 Assessment & Plan (1) End-stage renal disease (ESRD): has avf; creatinine progressively worsening recently >> now with uremic pericardial effusion. needs to start chronic dialysis -for catheter placement today (unclear if will be temporary or tunnelled; will before d/c need tunnelled line as avf not mature) -can eat after catheter placed -plan first dialysis today; 2nd treatment wednesday >>>>from renal standpoint, PROVIDED HAS TIME/DATE FOR [facility]O AT [facility] for 10/03 or 10/04, he can be d/c 10/01 after tx (2) Acute chest pain: chest pain brought him to hospital but no evidence of ACS; does have pericardial effusion; see below (3) Pericardial effusion without cardiac tamponade: -treat w/ dialysis (4) Anemia in ESRD (end-stage renal disease): plan to start TERRI w/ dialysis >> iron stores replete Subjective slept well. no f/c. no further chest pain. hungry. for TDC today 1300. unchanged swelling. no sob. no n/v/d. no rash. denies voiding concerns. focussed on adhereing to fluid limit Physical Exam 2 Vital Signs (Past 24 Hours): Last Vital Signs Temp 37.0 C 09/30/18 03:35 Pulse 74 09/30/18 03:35 Resp 16 09/30/18 03:35 BP 156/83 H 09/30/18 03:35 Pulse Ox 95 09/30/18 03:35 Constitutional: well developed, well nourished, average body habitus and cooperative on ra, maneuvers readily for exam Eyes: EOM intact bilaterally ENMT: Ears: no external ear abnormality Nose: no external nose abnormality Mouth: + dry oral mucous membranes Neck: no nuchal rigidity Respiratory: normal respiratory effort Auscultation: + diminished lung sounds Cardiovascular: Rate/Rhythm: regular rate and regular rhythm Heart Sounds: + cardiac rub (possible; heard best R lower sternal border, more intense w/ leaning forward) Extremities: + edema (trace-1+) and + AV fistula (RUE + t/b ) Gastrointestinal (Abdomen): Inspection/Auscultation: normal bowel sounds Percussion/Palpation: abdomen soft; abdomen nontender Musculoskeletal: Extremities: strength 5/5 throughout Skin: no rashes, warm and dry + pallor Neurologic: soria, fluent speech Psychiatric: A+Ox3, euthymic affect Insight: good insight Results & Data Laboratory Results Abnormal lab results 09/29/18 09/29/18 09/29/18 Range/Units 10:50 11:25 16:17 Chloride (98-107) mmol/L BUN (7-18) mg/dl Creatinine (0.6-1.4) mg/dl Glucose (70-99) mg/dl POC Glucose 106 H 142 H 322 H (70-99) Calcium (8.5-10.1) mg/dl Transferrin (200-360) mg/dl 09/29/18 09/29/18 09/30/18 Range/Units 16:32 20:46 03:32 Chloride (98-107) mmol/L BUN (7-18) mg/dl Creatinine (0.6-1.4) mg/dl Glucose (70-99) mg/dl POC Glucose 309 H 172 H 146 H (70-99) Calcium (8.5-10.1) mg/dl Transferrin (200-360) mg/dl 09/30/18 09/30/18 Range/Units 06:41 07:40 Chloride 112 H (98-107) mmol/L BUN 54 H (7-18) mg/dl Creatinine 4.62 H* D (0.6-1.4) mg/dl Glucose 135 H (70-99) mg/dl POC Glucose 150 H (70-99) Calcium 8.0 L (8.5-10.1) mg/dl Transferrin 167 L (200-360) mg/dl
[2018-09-30] MEDS: CLOPIDOGREL BISULFATE 75 MG TAB PO SCH (08:42)
[2018-09-30] MEDS: HEPARIN SOD 5,000 UNIT/0.5 ML VIAL SQ SCH ×2 (08:55→20:30)
--- NOTE | 2018-09-30 08:59 | Consultation ---
Date of Consultation September 30, 2018 Assessment & Plan (1) End-stage renal disease (ESRD): Pt scheduled for permcath insertion later today by Dr Hodge. Procedure discussed wtih pt, he is agreeable. R AC brachiocephalic AVF demonstrates excellent thrill/bruit, however, is too immature for use at only 2 weeks post op. Patient was seen, examined, and chart reviewed. Agree with exam and treatment plan of the Vascular PA. Patient for permcath insertion today. I have discussed the risks options and benefits of the procedure with the patient. The patient understands the risks options and benefits and agrees to the procedure. Present on Admission?: Yes History of Present Illness Reason for Consultation: ESRD Attending Physician: Shannan Bennett MD History of Present Illness 33 yo m with multiple medical problems, including CKD IV, DM, hx TIA, anemia, fatty liver, admitted with worsening renal fxn, seen in consultation today for permcath insertion to initiate HD. Pt admits fatigue and malaise. Denies LYON, fever, chills, chest pain presently, SOB, abd pain, N/V, rest pain, claudication , other complaints. States had a R AC brachiocephalic AVF created at [facility] on 09/15/18. Allergies Allergy/AdvReac Type Severity Reaction Status Date / Time No Known Allergies Allergy Verified 09/28/18 14:12 Home Medications Home Medications Medication Instructions Recorded Confirmed Type amlodipine [Norvasc] 10 mg PO QAM 09/28/18 09/28/18 History atorvastatin 40 mg PO HS 09/28/18 09/28/18 History calcium acetate 667 mg PO TID 09/28/18 09/28/18 History carvedilol 12.5 mg PO BID 09/28/18 09/28/18 History cholecalciferol (vitamin D3) 5,000 unit PO QAM 09/28/18 09/28/18 History [Vitamin D3] clopidogrel 75 mg PO QAM 09/28/18 09/28/18 History doxazosin 2 mg PO HS 09/28/18 09/28/18 History epoetin fredy [Procrit] 10,000 unit/kg SUBCUT UD 09/28/18 09/28/18 History insulin aspart U-100 [Novolog 0 unit SUBCUT UD 09/28/18 09/28/18 History U-100 Insulin aspart] torsemide 40 mg PO QAM 09/28/18 09/28/18 History Patient History Medical History TIA (transient ischemic attack) Anemia in chronic kidney disease (CKD) Nephrotic syndrome due to diabetes mellitus CKD (chronic kidney disease) stage 4, GFR 15-29 ml/min Neurological symptoms (Acute) DVT prophylaxis Fatty liver (Chronic) Charcot foot due to diabetes mellitus (Chronic) Nausea and vomiting (Chronic) Urinary retention (Chronic) CKD (chronic kidney disease), stage III (Chronic) Diabetic nephropathy (Chronic) Diabetic neuropathy (Chronic) Diabetic retinopathy (Chronic) 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) JUANA (acute kidney injury) (Acute) Anemia (Chronic) Hyperglycemia (Acute) Hypertension (Chronic) Surgical History Hx of eye surgery Family History Mother Hypertension Grandfather (Maternal) Diabetes mellitus Grandmother (Maternal) Diabetes mellitus Grandmother (Paternal) Diabetes mellitus Other Heart disease Social History marital status: single Current Living Situation: Alone current occupational status: employed Other Information That Helps Us Care for You: No Feels Safe at Home: Yes Safety Concerns: Feels Safe At This Time Smoking Status: Former smoker Do You Dip or Chew Tobacco: No Smoking End Date: Jun 2017 Hx Alcohol Use: No Hx Substance Use: No Beliefs That Will Affect Care: None Communication Ability: Effective Review of Systems Constitutional: + fatigue and + malaise; no fever, no chills, no sweats and no weight loss Eyes: no blind spots and no problem reported Ear, Nose, Mouth, Throat: no hearing loss and no sore throat Respiratory: no cough, no dyspnea, no dyspnea on exertion and no hemoptysis Cardiovascular: no chest pain, no palpitations, no syncope, no claudication and no problem reported Gastrointestinal: no abdominal pain, no early satiety, no nausea, no vomiting, no cramping, no change in bowel habits, no diarrhea/loose stools and no blood in stools Musculoskeletal: no back pain, no joint pain, no swelling and no muscle weakness Integumentary: no rash, no non-healing lesions, no skin ulcer, no wounds and no erythema Neurologic: no localized weakness, no generalized weakness, no paralysis, no loss of sensation, no tingling, no numbness, no paresthesia, no seizure-like activity, no syncope, no headache(s) and no confusion Psychiatric: as per Subjective / HPI Hematologic / Lymphatic: no easy bleeding, no easy bruising, no coagulopathy, no night sweats and no unexplained weight loss Physical Exam 2 Vital Signs (Past 24 Hours): Last Vital Signs Temp 36.6 C 09/30/18 07:45 Pulse 73 09/30/18 07:45 Resp 16 09/30/18 07:45 BP 163/89 H 09/30/18 07:45 Pulse Ox 99 09/30/18 07:45 Constitutional: WD/WN, vitals as above well developed, well nourished, + ill appearing, + thin, well groomed, cooperative and comfortable; not in distress Eyes: PERRL, conjunctivae normal, anicteric sclerae EOM intact bilaterally ENMT: external ear and nose normal, oropharynx normal Ears: no hearing impairment Nose: no nasal discharge Neck: trachea midline, no thyromegaly no tracheal deviation, no neck crepitus and neck nontender Respiratory: normal respiratory effort, lungs clear to auscultation able to speak in complete sentences; does not use accessory muscles, no cough, not tachypneic and no audible wheezes Auscultation: lungs clear to auscultation bilaterally and + diminished lung sounds; no rhonchi and no wheezes Cardiovascular: RRR, no murmur, no edema Heart Sounds: no gallop and no murmur Vessels: normal peripheral pulses, femoral pulses present, posterior tibial pulses present, dorsalis pedis pulses present, brachial pulses present and radial pulses present; no carotid bruit and no femoral bruit Extremities : normal capillary refill, + edema and + AV fistula (R AC brachiocephalic AVF with excellent thrill/bruit); no vascular access device Chest (Breasts): Chest: normal inspection of chest Gastrointestinal (Abdomen): normal bowel sounds, soft, nontender, no hepatosplenomegaly Inspection/Auscultation: abdomen normal to inspection and normal bowel sounds; abdomen not distended Percussion/Palpation: abdomen soft ; abdomen nontender, no guarding, abdomen not rigid and no abdominal mass Musculoskeletal: no cyanosis or clubbing, extremities motor strength 5/5 Head/Neck/Chest: normocephalic, head atraumatic and neck supple Extremities: extremities normal to inspection; full ROM of extremities, + abnormal strength, normal strength, no chronic stasis changes, no clubbing, no amputation noted, no lower leg abnormality and no foot abnormality Skin: no rashes, warm and dry normal turgor and + incision (R AC AVF incision C/D/I, no erythema or drainage. ); no rashes, no lesions, no ulcers, no erythema and no pallor Trauma: no hematoma and no puncture Neurologic: moves all extremities and awake; no focal motor deficits and not confused Speech / Cognition: no expressive aphasia and no receptive aphasia Motor/Sensory: no tremor Cranial Nerves: EOM intact bilaterally and normal facial strength Gait: not gait assisted Psychiatric: Orientation: alert, oriented x 3, oriented to person, oriented to place, oriented to time and cooperative Apperance: appropriately dressed and appropriately groomed Affect: euthymic affect Thought Process: goal directed thought process, linear/logical thought process and clear/coherent thought process Cognition: recent memory grossly intact, remote memory grossly intact, attention grossly intact and language grossly intact Estimated Intelligence: average estimated intelligence Lymphatic: no lymphedema
[2018-09-30] MEDS ORDERED: CEFAZOLIN 1000MG 1,000 MG/7.5 ML SYR IV SCH (09:00)
--- NOTE | 2018-09-30 09:27 | Pharmacy Report ---
Pharmacy Glycemic Short Note 2 - Date of Service September 30, 2018 - Glycemic Short BSG Results (Last 24 hours): 09/29/18 09/29/18 09/29/18 10:50 11:25 16:17 Glucose POC Glucose 106 H 142 H 322 H 09/29/18 09/29/18 09/30/18 16:32 20:46 03:32 Glucose POC Glucose 309 H 172 H 146 H 09/30/18 09/30/18 06:41 07:40 Glucose 135 H POC Glucose 150 H OUTPATIENT ANTIDIABETIC REGIMEN: * Novolog Pump * goal range 100-150 * CF of 60 * CR of 11 * Basal rate = 0.75 unit/hr from 6717-9714; 0.875 units/hr from 6670-4325 * A1c = 8.9 % 08/06/18 ASSESSMENT: 09/30/18 * Mr. Hicks is currently NPO for a permcath insertion later today. He continues on his insulin pump but basal rate was reduced back to 50% of outpatient basal rates @ 0400 this AM for NPO status. BSGs have been stable so far on this. * Will plan to continue same basal rate for now and patient can increase back to 70% of basal rate once po intake resumes 09/29/18 * Mr Hicks is a 33 y/o M with a PMH of T1DM who presents with chest pain. Patient is typically maintained on Novolog pump while hospitalized. He was made NPO at midnight for cardiac evaluation. Blood sugar this morning was lower and he was treated with glucose gel. I spoke with patient around 0800, and basal rate reduced to 50% of home rate to prevent future hypoglycemic episodes. * Spoke with patient around 1330 about increasing basal rate again. He wanted to wait until he checked his sugar 2 hours after eating uncovered 51 grams of carbohydrates. Blood sugar at 1400 was 301 mg/dL. He agreed to increase basal rate and will cover with CF. PLAN FOR INPATIENT GLYCEMIC CONTROL: * Continue insulin pump with basal rates reduced to 50% of usual, while NPO * Patient can increase back to 70% of usual once po intake resumes PLAN FOR DISCHARGE: * Patient follows closely with [facility] pharmacist in [place] for insulin pump management. Would recommend continued f/u with them.
--- NOTE | 2018-09-30 13:49 | Hospitalist Progress Note ---
Date of Service September 30, 2018 Assessment & Plan (1) Acute chest pain: Atypical Chest Pain: Risk factors: H/O HTN, HLP, Former Tobacco use disorder, DM Type I DD: Constochondritis, Pericardial effusion, R/O ACS Has been pain-free since admission Serial cardiac enzymes and EKG unremarkable for any ACS Repeat echo showed mild to moderate amount of pericardial effusion without any other other abnormalities Continue Plavix, statins, beta blockers Case discussed with acid filler No further recommendation from acid filler except the patient is to have dialysis to improve the pericardial effusion Nephrology consult-appreciate input and recommendation No more chest pain DM Type I Diabetic retinopathy, nephropathy, neuropathy, Charcot foot Continue Insulin Pump Last A1C: 8.6 on 09/27/18 Monitor BGs CKD IV Cr:4.15 --New baseline Recently had fistula placement Creatinine has been increasing Nephrology consulted for probable dialysis in short time Will have dialysis today HTN Mildly elevated Continue home medications monitor H/O Neurogenic bladder Bladder scan PRN Patient Straight Cath twice a day at baseline TIA Continue Plavix, Lipitor Denies any acute symptoms Anemia of chronic disease Received Procrit yesterday Hb at baseline monitor-hemoglobin is 8.0 DVT Px: Heparin SQ Code Status Full Code Subjective Patient is a 33 yr male with PMH of DM Type I on Insulin Pump, Diabetic retinopathy, nephropathy, neuropathy, Charcot foot, CKD IV, HTN, Neurogenic bladder, Former smoker, TIA, Anemia of chronic disease and other problems presents with history of chest pain since 3 days ago 09/29 The patient was seen and examined in telemetry unit He was admitted with atypical chest pain for 3 days prior to admission There is a history of pericarditis and pericardial effusion Denies any more chest pain since admission His serial cardiac enzymes and EKGs remain unremarkable 09/30 The patient was seen and examined in telemetry He denies any more chest pain and/or palpitation He complains to have some weakness He will have dialysis today Physical Exam 2 Vital Signs (Past 24 Hours): Last Vital Signs Temp 37 C 09/30/18 11:35 Pulse 65 09/30/18 11:35 Resp 16 09/30/18 11:35 BP 144/84 H 09/30/18 11:35 Pulse Ox 98 09/30/18 11:35 Constitutional: WD/WN, vitals as above Eyes: PERRL, conjunctivae normal, anicteric sclerae ENMT: external ear and nose normal, oropharynx normal Neck: trachea midline, no thyromegaly Respiratory: normal respiratory effort; no respiratory distress and no labored breathing Auscultation: lungs clear to auscultation bilaterally Cardiovascular: Rate/Rhythm: regular rate and regular rhythm Heart Sounds: normal S1 and normal S2; no murmur and no cardiac rub Gastrointestinal (Abdomen): Inspection/Auscultation: abdomen normal to inspection and normal bowel sounds Percussion/Palpation: abdomen soft; abdomen nontender Results & Data Laboratory Results [facility] 09/30/18 06:41 Sodium 141 Potassium 4.2 Chloride 112 H Carbon Dioxide 21 BUN 54 H Creatinine 4.62 H* D Glucose 135 H Calcium 8.0 L Medications Administered Current Inpatient Medications Acetaminophen (Tylenol) 650 mg PO Q4H PRN PRN Reason: Pain or Fever Stop: 10/28/18 17:29 Amlodipine Besylate ([facility]asc) [facility] Stop: 10/29/18 08:59 Last Admin: 09/30/18 08:23 Dose: 10 mg Atorvastatin Calcium (Lipitor) 40 mg PO HS [facility] Stop: 10/28/18 20:59 Last Admin: 09/29/18 19:50 Dose: 40 mg Calcium Acetate (Phoslo) 667 mg PO TIDM [facility] Stop: 10/28/18 17:59 Last Admin: 09/30/18 12:12 Dose: Not Given Carvedilol (Coreg) 12.5 mg PO BID [facility] Stop: 10/28/18 20:59 Last Admin: 09/30/18 08:21 Dose: 12.5 mg Clopidogrel Bisulfate (Plavix) 75 mg PO QAM [facility] Stop: 10/29/18 08:59 Last Admin: 09/30/18 08:42 Dose: 75 mg Dextrose (Dextrose 50%) 25 - 50 ml IV UD PRN; Protocol PRN Reason: Hypoglycemia Protocol Stop: 10/28/18 17:29 Doxazosin Mesylate (Cardura) 2 mg PO HS [facility] Stop: 10/28/18 20:59 Last Admin: 09/29/18 19:48 Dose: 2 mg Epoetin Clint (Procrit) 10,000 units IV TODAY@0800 [facility] Stop: 09/30/18 18:00 Glucagon (Glucagen) 1 mg SQ UD PRN; Protocol PRN Reason: Hypoglycemia Protocol Stop: 10/28/18 17:29 Glucose (Dex4 Glucose) 4 - 8 tabs PO UD PRN; Protocol PRN Reason: Hypoglycemia Protocol Stop: 10/28/18 17:29 Glucose (Glucose 40%) 15 - 30 gm PO UD PRN; Protocol PRN Reason: Hypoglycemia Protocol Stop: 10/28/18 17:29 Last Admin: 09/29/18 04:13 Dose: 7.5 gm Heparin Sodium (Porcine) (Heparin Sodium (Porcine)) 5,000 units SQ Q12 [facility] Stop: 10/28/18 20:59 Last Admin: 09/30/18 08:55 Dose: Not Given Hydralazine HCl (Apresoline) 10 mg PO QID PRN PRN Reason: Hypertension Stop: 10/30/18 08:59 Last Admin: 09/30/18 02:44 Dose: 10 mg Sodium Chloride (Nss 1000ml) 1,000 mls @ 0 mls/hr IV .Q0M PRN PRN Reason: For Hemodialysis Use ONLY Stop: 09/30/18 18:00 Cefazolin Sodium (Ancef 1000mg) 1,000 mg in 7.5 mls @ 2.5 mls/min IV PREOP@ 0900 EMERY; Protocol Stop: 10/01/18 08:59 Insulin Aspart (Novolog Aspart) 0 units SC PRN PRN PRN Reason: PRN Stop: 10/28/18 18:05 Insulin Aspart (Novolog Insulin Pump) 1 ea N/A Q6 EMERY; Protocol Stop: 10/29/18 05:59 Last Admin: 09/30/18 12:13 Dose: 1 ea Miscellaneous (Carbohydrates For Hypoglycemia) 15 - 30 gm PO UD PRN PRN Reason: Hypoglycemia Treatment Stop: 10/28/18 17:29 Miscellaneous (No Heparin In Dialysis) 1 ea N/A TODAY@0800 [facility] Stop: 09/30/18 20:00 Miscellaneous (Pending Order) 1 ea N/A Q6 [facility] Stop: 10/30/18 17:59 Miscellaneous Information (Consult Glycemic Management Pharmacy) 1 ea N/A UD PRN PRN Reason: Consult Stop: 10/28/18 18:05 Nitroglycerin (Nitrostat) 0.4 mg SL UD PRN PRN Reason: Chest Pain Stop: 10/28/18 17:29 Ondansetron HCl (Zofran) 4 mg IV Q6H PRN PRN Reason: Nausea Stop: 10/28/18 17:29 Torsemide (Demadex) 40 mg PO [facility] Stop: 10/29/18 08:59 Last Admin: 09/30/18 08:21 Dose: 40 mg Vitamin D (Vitamin D3) 5,000 units PO [facility] Stop: 10/29/18 08:59 Last Admin: 09/30/18 08:23 Dose: 5,000 units
[2018-09-30] MEDS ORDERED: HEPARIN SOD (PORCINE) 5,000 UNITS/ML VIAL ONE (15:07)
[2018-09-30] MEDS ORDERED: fentaNYL citrate 100 MCG/2 ML VIAL ONE (15:08)
[2018-09-30] MEDS ORDERED: LIDOCAINE HCL 1% 20 ML VIAL ONE (15:08)
[2018-09-30] MEDS ORDERED: MIDAZOLAM HCL 1 MG/ML 2ML VIAL ONE (15:08)
--- NOTE | 2018-09-30 15:16 | Pre Anesthesia Assessment ---
Date of Service September 30, 2018 Pre Sedation Assessment Vital Signs Temp Pulse Resp BP Pulse Ox 09/30/18 11:35 37 C 65 16 144/84 H 98 09/30/18 07:45 36.6 C 73 16 163/89 H 99 09/30/18 03:35 37.0 C 74 16 156/83 H 95 09/30/18 02:00 71 165/85 H 09/29/18 23:55 36.7 C 72 20 172/89 H 97 09/29/18 19:09 36.6 C 71 18 156/86 H 97 09/29/18 15:43 36.5 C 69 16 152/88 H 97 Cardiovascular + regular rate and + regular rhythm Respiratory normal respiratory effort, lungs clear to auscultation Pre-Sedation Airway Assessment Smoking Status: Former smoker Hx Sleep Apnea: No Short, Thick Neck: No Thyromental Distance: > or= 3.5 Finger Breadths Oral Cavity: + WNL Mallampati Class: II ASA: ASA4 NPO Status Date of Last Intake of Fluids: 09/29/18 Time of Last Intake of Fluids: 16:00 Date of Last Intake of Solid Food: 09/29/18 Time of Last Intake of Solid Foods: 16:00 Procedure Planning Contraindications for Sedation: none Current Medications Reviewed: Yes Notes The planned sedation has been discussed with the patient. Informed Consent was obtained. I have identified the patient, determined the appropriateness of sedation and have assessed the patient immediately prior to the procedure. All medicine(s) and interventions are by my order.
--- NOTE | 2018-09-30 15:57 | Post Operative Brief Note ---
Immediate Post Op Note v1 Date of Surgery September 30, 2018 Pre & Post Diagnosis Operation Date: 09/30/18 08:00 Pre-Op Diagnosis: End Stage Renal Disease Post-Op Diagnosis: End Stage Renal Disease Procedure Operation Date: 09/30/18 08:00 Actual Procedures p Insertion of Perm Catheter, Right Internal Jugular Approach, Ultrasound Localization of Right Internal Jugular Vein, Fluoroscopy for positioning , Moderate sedation from 1538 - 1605 (Right) - Tirso Hodge MD Surgeon Tirso Hodge MD Wastewater Superintendent Yandel Fowler MD Estimated Blood Loss 3 Findings Consistent with Post-Op Diagnosis Anesthesia Type RN Sedation Complications none Disposition Accompanied Patient To Recovery: No Disposition: Recovery Room
--- NOTE | 2018-09-30 16:00 | Operative Report ---
Post Operative Report Pre & Post Diagnosis Operation Date: 09/30/18 08:00 Pre-Op Diagnosis: End Stage Renal Disease Post-Op Diagnosis: End Stage Renal Disease Procedure Operation Date: 09/30/18 08:00 Actual Procedures p Insertion of Perm Catheter, Right Internal Jugular Approach, Ultrasound Localization of Right Internal Jugular Vein, Fluoroscopy for positioning , Moderate sedation from 1538 - 1605(Right) - Tirso Hodge MD Surgeon Dr. Ayesha Fowler MD Hot Roller Yandel Fowler MD Estimated Blood Loss 3 Findings Consistent with Post-Op Diagnosis patent R IJV Specimens none Drains none Anesthesia Type RN Sedation Complications none Disposition Accompanied Patient To Recovery: No Disposition: Recovery Room Indications ESRD Description of Procedure Patient was takent to the angio suite and placed in the supine position. The right side of the neck and chest wall were prepped and draped in a sterile manner. Local anesthesia was then administered to the appropriate areas of the neck and chest wall. Ultrasound was then used to locate the right internal jugular vein. The vein compressed easily, had no filing defects, and was patent. The vein was then punctured under direct ultrasound imaging. A guidewire was then passed centrally under fluoroscopic imaging. A stab wound was then made in the anterior chest wall and a 19 cm permcath was passed from the stab wound on the chest wall to the puncture site on the neck. The puncture site was then dilated till the 14Fr peel away sheath was inserted. The permcath was then inserted through the sheath to a central position in the distal superior vena cava. The peel away sheath was then removed. The catheter was then sutured in place using nylon sutures. The puncture was then closed using a 4-0 Vicryl subcuticular suture. Both ports aspirated and flushed easily and were then packed with heparin. A sterile dressing was applied to the catheter. The patient left the angio suite in good condition and tolerated the procedure well. Dr. Hodge was present and scrubbed for the entire procedure. I attest to the content of the Intraoperative Record and any orders documented therein. Any exceptions are noted below.
--- NOTE | 2018-09-30 16:07 | Post Anesthesia Assessment ---
Date of Service September 30, 2018 Post Sedation Assessment Vital Signs Temp Pulse Pulse Pulse Resp BP Pulse Ox 09/30/18 16:05 64 16 135/83 95 09/30/18 16:00 65 12 127/81 94 09/30/18 15:57 63 12 140/83 100 09/30/18 15:50 65 12 142/88 H 100 09/30/18 15:45 66 18 163/90 H 100 09/30/18 15:40 68 17 166/96 H 100 09/30/18 15:35 69 18 161/94 H 97 09/30/18 15:33 70 20 164/94 H 95 09/30/18 15:04 36.8 C 66 16 159/90 H 95 09/30/18 11:35 37 C 65 16 144/84 H 98 09/30/18 07:45 36.6 C 73 16 163/89 H 99 09/30/18 03:35 37.0 C 74 16 156/83 H 95 09/30/18 02:00 71 165/85 H 09/29/18 23:55 36.7 C 72 20 172/89 H 97 09/29/18 19:09 36.6 C 71 18 156/86 H 97 Recovery Score Activity: Moves 4 extremities Respiration: Deep Breath/Cough Circulation: +/-20% PreAnes Value Consciousness: Fully Awake Oxygen Saturation: > 92% On Room Air Post Anesthesia Score: 10 Discharge Sedation Level of Care: Fast Track Phase II Post Sedation Plan On clinical assessment, the patient appears to have tolerated the sedation without complications. Patient is recovering as anticipated. Patient will continue to be monitored by nursing and may be discharged when sedation discharge criteria are met per below protocol. Upon Completions of procedure and additional 15 minutes continue every 5 minute vital signs and the P.A.R. score; then discharge to a Phase I or Fast Track to Phase II per the following guidelines: * Discharge Patient to appropriate Phase II area if PAR is 8 or greater or return to pre- procedure baseline. The post - procedure orders will be as directed. * If PAR score is less than 8 or not return to pre-procedure baseline then patient will follow Phase I monitoring till PAR is reached for Phase II. The Phase I may be done in procedure room or may call to secure a Phase I area. * If naloxone or flumazenil are used for reversal, hold in Phase I for continued monitoring from when last reversal dose was given for a minimum of 60 minutes or longer pending the nurse and/or physician discretion of patient condition before discharge to Phase II. Please call the Sedation Physician to re-evaluate and complete post-note for discharge to Phase II area. Do NOT discharge from procedure sedation or Phase 1 until post- sedation evaluation note is complete by procedure /sedation MD Sedation Discharge Instructions to be given to the patient at discharge to home.
[2018-09-30] MEDS: HYDROmorphone INJ 0.5 MG/0.5 ML SYR IV PRN (19:37)
[2018-09-30] MEDS: DOXAZosin MESYLATE TAB 2 MG TAB PO SCH (20:29)
[2018-09-30] MEDS: ATORVASTATIN 40 MG TAB PO SCH (20:30)
[2018-10-01] MEDS: NovoLOG INSULIN PUMP SCH ×4 (01:08→16:56)
[2018-10-01] MEDS: HYDROmorphone INJ 0.5 MG/0.5 ML SYR IV PRN (01:12)
[2018-10-01 07:12] LABS: Hematocrit (blood only) 25.3 % (42-52); Hemoglobin 8.5 g/dL (14.0-18.0); Mean Corpuscular Hgb Conc 33.6 g/dL (32-36); Mean Corpuscular Volume 88.8 fL (80-100); Mean Platelet Volume 9.4 fL (7.4-10.4); Platelet Count 193 K/uL (130-400); RDW Coefficient of Variation 14.7 % (11.5-14.5); RDW Standard Deviation 47.6 fL (36.4-46.3); Red Blood Count 2.85 M/uL (4.7-6.1); White Blood Count 4.81 K/uL (4.8-10.8)
[2018-10-01] MEDS: CALCIUM ACETATE 667 MG CAP PO SCH ×3 (07:44→16:56)
[2018-10-01] MEDS: CLOPIDOGREL BISULFATE 75 MG TAB PO SCH (07:44)
[2018-10-01] MEDS: HEPARIN SOD 5,000 UNIT/0.5 ML VIAL SQ SCH ×2 (07:44→19:15)
[2018-10-01] MEDS: AMLODIPINE BESYLATE 5 MG TAB PO SCH (07:45)
[2018-10-01] MEDS: TORSEMIDE 20 MG TAB PO SCH (07:46)
[2018-10-01] MEDS: CHOLECALCIFEROL 1,000 UNITS TAB PO SCH (07:46)
[2018-10-01] MEDS: CARVEDILOL 12.5 MG TAB PO SCH ×2 (07:47→19:14)
[2018-10-01] MEDS ORDERED: SODIUM CHLORIDE 0.9% 1000ML 1,000 ML IV PRN (08:00)
[2018-10-01] MEDS ORDERED: HEPARIN SOD (PORCINE) 1000 UNIT/ML 10 ML VIAL IV ONE (08:00)
[2018-10-01] MEDS ORDERED: EPOETIN ALFA 4,000 UNIT/ML VIAL IV ONE (08:00)
[2018-10-01 09:48] LABS: Hepatitis B Surface Antibody Immune
[2018-10-01 09:58] LABS: Hepatitis B Surface Antigen Neg (Neg)
--- NOTE | 2018-10-01 10:04 | Pharmacy Report ---
Pharmacy Glycemic Short Note 2 - Date of Service October 01, 2018 - Glycemic Short BSG Results (Last 24 hours): 09/30/18 09/30/18 09/30/18 11:16 15:07 20:03 POC Glucose 168 H 151 H 141 H 10/01/18 07:34 POC Glucose 180 H OUTPATIENT ANTIDIABETIC REGIMEN: * Novolog Pump * goal range 100-150 * CF of 60 * CR of 11 * Basal rate = 0.75 unit/hr from 4871-3184; 0.875 units/hr from 6485-1060 * A1c = 8.9 % 08/06/18 ASSESSMENT: 10/01/18 * Mr. Hicks remains on Novolog insulin pump with adequate glycemic control. * He resumed an oral diet yesterday with dinner. For unknown reason, the patient was not instructed to increase basal rate at that time, therefore his pump has been running at 50% of home rate. Fasting BSG was elevated, 180 mg/dL. * Discussed with RN and advised to have patient increase basal rate to 70% of home rate. 09/30/18 * Mr. Hicks is currently NPO for a permcath insertion later today. He continues on his insulin pump but basal rate was reduced back to 50% of outpatient basal rates @ 0400 this AM for NPO status. BSGs have been stable so far on this. * Will plan to continue same basal rate for now and patient can increase back to 70% of basal rate once po intake resumes 09/29/18 * Mr Hicks is a 33 y/o M with a PMH of T1DM who presents with chest pain. Patient is typically maintained on Novolog pump while hospitalized. He was made NPO at midnight for cardiac evaluation. Blood sugar this morning was lower and he was treated with glucose gel. I spoke with patient around 0800, and basal rate reduced to 50% of home rate to prevent future hypoglycemic episodes. * Spoke with patient around 1330 about increasing basal rate again. He wanted to wait until he checked his sugar 2 hours after eating uncovered 51 grams of carbohydrates. Blood sugar at 1400 was 301 mg/dL. He agreed to increase basal rate and will cover with CF. PLAN FOR INPATIENT GLYCEMIC CONTROL: * Continue insulin pump * current basal rate is 70% of home rate PLAN FOR DISCHARGE: * Patient follows closely with [facility] pharmacist in [place] for insulin pump management. Would recommend continued f/u with them.
--- NOTE | 2018-10-01 15:33 | Hospitalist Progress Note ---
Date of Service October 01, 2018 Assessment & Plan (1) Acute chest pain: Atypical Chest Pain: Risk factors: H/O HTN, HLP, Former Tobacco use disorder, DM Type I DD: Constochondritis, Pericardial effusion, R/O ACS Has been pain-free since admission Serial cardiac enzymes and EKG unremarkable for any ACS Repeat echo showed mild to moderate amount of pericardial effusion without any other other abnormalities Continue Plavix, statins, beta blockers Case discussed with haulpak driver No further recommendation from haulpak driver except the patient is to have dialysis to improve the pericardial effusion Nephrology consult-appreciate input and recommendation No more chest pain Remains stable without any chest pain, palpitation, shortness of breath or any arrhythmias on monitor DM Type I Diabetic retinopathy, nephropathy, neuropathy, Charcot foot Continue Insulin Pump Last A1C: 8.6 on 09/27/18 Monitor BGs CKD IV Cr:4.15 --New baseline Recently had fistula placement Creatinine has been increasing Nephrology consulted for probable dialysis in short time Will have dialysis today 09/30 Will have another session of dialysis today Likely will discharge him of the day today or tomorrow HTN Mildly elevated Continue home medications monitor H/O Neurogenic bladder Bladder scan PRN Patient Straight Cath twice a day at baseline TIA Continue Plavix, Lipitor Denies any acute symptoms Anemia of chronic disease Received Procrit yesterday Hb at baseline monitor-hemoglobin is 8.0 DVT Px: Heparin SQ Code Status Full Code Subjective Patient is a 33 yr male with PMH of DM Type I on Insulin Pump, Diabetic retinopathy, nephropathy, neuropathy, Charcot foot, CKD IV, HTN, Neurogenic bladder, Former smoker, TIA, Anemia of chronic disease and other problems presents with history of chest pain since 3 days ago 09/29 The patient was seen and examined in telemetry unit He was admitted with atypical chest pain for 3 days prior to admission There is a history of pericarditis and pericardial effusion Denies any more chest pain since admission His serial cardiac enzymes and EKGs remain unremarkable 09/30 The patient was seen and examined in telemetry He denies any more chest pain and/or palpitation He complains to have some weakness He will have dialysis today 10/01 Denies any chest pain Generally weak and awaiting another hemodialysis today Some pain over the right shoulder at the catheter site Physical Exam 2 Vital Signs (Past 24 Hours): Last Vital Signs Temp 37.0 C 10/01/18 13:40 Pulse 63 10/01/18 13:40 Resp 18 10/01/18 07:12 BP 143/68 H 10/01/18 13:40 Pulse Ox 95 10/01/18 07:12 Constitutional: WD/WN, vitals as above Eyes: PERRL, conjunctivae normal, anicteric sclerae ENMT: external ear and nose normal, oropharynx normal Neck: trachea midline, no thyromegaly Respiratory: normal respiratory effort; no respiratory distress and no labored breathing Auscultation: lungs clear to auscultation bilaterally Cardiovascular: Rate/Rhythm: regular rate and regular rhythm Heart Sounds: normal S1 and normal S2; no murmur and no cardiac rub Gastrointestinal (Abdomen): Inspection/Auscultation: abdomen normal to inspection and normal bowel sounds Percussion/Palpation: abdomen soft; abdomen nontender Results & Data Laboratory Results Short CBC 10/01/18 Range/Units 06:52 WBC 4.81 (4.8-10.8) K/uL Hgb 8.5 L (14.0-18.0) g/dL Hct 25.3 L (42-52) % Plt Count 193 (130-400) K/uL Medications Administered Current Inpatient Medications Acetaminophen (Tylenol) 650 mg PO Q4H PRN PRN Reason: Pain or Fever Stop: 10/28/18 17:29 Amlodipine Besylate (Norvasc) 10 mg PO QAM [facility] Stop: 10/29/18 08:59 Last Admin: 10/01/18 07:45 Dose: 10 mg Atorvastatin Calcium (Lipitor) 40 mg PO HS [facility] Stop: 10/28/18 20:59 Last Admin: 09/30/18 20:30 Dose: 40 mg Calcium Acetate (Phoslo) 667 mg PO TIDM [facility] Stop: 10/28/18 17:59 Last Admin: 10/01/18 14:13 Dose: 667 mg Carvedilol (Coreg) 12.5 mg PO BID [facility] Stop: 10/28/18 20:59 Last Admin: 10/01/18 07:47 Dose: 12.5 mg Clopidogrel Bisulfate (Plavix) 75 mg PO QAM [facility] Stop: 10/29/18 08:59 Last Admin: 10/01/18 07:44 Dose: 75 mg Dextrose (Dextrose 50%) 25 - 50 ml IV UD PRN; Protocol PRN Reason: Hypoglycemia Protocol Stop: 10/28/18 17:29 Doxazosin Mesylate (Cardura) 2 mg PO HS [facility] Stop: 10/28/18 20:59 Last Admin: 09/30/18 20:29 Dose: 2 mg Glucagon (Glucagen) 1 mg SQ UD PRN; Protocol PRN Reason: Hypoglycemia Protocol Stop: 10/28/18 17:29 Glucose (Dex4 Glucose) 4 - 8 tabs PO UD PRN; Protocol PRN Reason: Hypoglycemia Protocol Stop: 10/28/18 17:29 Glucose (Glucose 40%) 15 - 30 gm PO UD PRN; Protocol PRN Reason: Hypoglycemia Protocol Stop: 10/28/18 17:29 Last Admin: 09/29/18 04:13 Dose: 7.5 gm Heparin Sodium (Porcine) (Heparin Sodium (Porcine)) 5,000 units SQ Q12 [facility] Stop: 10/28/18 20:59 Last Admin: 10/01/18 07:44 Dose: 5,000 units Hydralazine HCl (Apresoline) 10 mg PO QID PRN PRN Reason: Hypertension Stop: 10/30/18 08:59 Last Admin: 09/30/18 02:44 Dose: 10 mg Hydromorphone HCl (Dilaudid) 0.5 mg IV Q3H PRN PRN Reason: Pain Stop: 10/14/18 19:01 Last Admin: 10/01/18 01:12 Dose: 0.5 mg Sodium Chloride (Nss 1000ml) 1,000 mls @ 0 mls/hr IV .Q0M PRN PRN Reason: For Hemodialysis Use ONLY Stop: 10/01/18 18:00 Insulin Aspart (Novolog Aspart) 0 units SC PRN PRN PRN Reason: PRN Stop: 10/28/18 18:05 Insulin Aspart (Novolog Insulin Pump) 1 ea N/A Q6 EMERY; Protocol Stop: 10/29/18 05:59 Last Admin: 10/01/18 14:13 Dose: 1 ea Miscellaneous (Carbohydrates For Hypoglycemia) 15 - 30 gm PO UD PRN PRN Reason: Hypoglycemia Treatment Stop: 10/28/18 17:29 Miscellaneous Information (Consult Glycemic Management Pharmacy) 1 ea N/A UD PRN PRN Reason: Consult Stop: 10/28/18 18:05 Nitroglycerin (Nitrostat) 0.4 mg SL UD PRN PRN Reason: Chest Pain Stop: 10/28/18 17:29 Ondansetron HCl (Zofran) 4 mg IV Q6H PRN PRN Reason: Nausea Stop: 10/28/18 17:29 Torsemide (Demadex) 40 mg PO [facility] Stop: 10/29/18 08:59 Last Admin: 10/01/18 07:46 Dose: 40 mg Vitamin D (Vitamin D3) 5,000 units PO [facility] Stop: 10/29/18 08:59 Last Admin: 10/01/18 07:46 Dose: 5,000 units
--- NOTE | 2018-10-01 17:34 | Nephrology Progress Note ---
Date of Service October 01, 2018 Assessment & Plan (1) End-stage renal disease (ESRD): has avf; creatinine progressively worsening recently >> now with uremic pericardial effusion. Patient started on dialysis yesterday. Today was the second dialysis treatment which he tolerated well with no UF. Patient can be discharged if stable to continue dialysis outpatient at [place] (2) Acute chest pain: chest pain brought him to hospital but no evidence of ACS; does have pericardial effusion; likely uremic pericarditis (3) Pericardial effusion without cardiac tamponade: -treat w/ dialysis (4) Anemia in ESRD (end-stage renal disease): plan to start TERRI w/ dialysis >> iron stores replete Subjective Patient complains of pain at the site of dialysis catheter insertion. No shortness of breath. Patient tolerated dialysis well this morning no UF. Review of Systems All systems reviewed & are unremarkable except as noted in HPI & below Physical Exam 2 Vital Signs (Past 24 Hours): Last Vital Signs Temp 36.5 C 10/01/18 15:42 Pulse 67 10/01/18 15:42 Resp 18 10/01/18 15:42 BP 132/74 10/01/18 15:42 Pulse Ox 97 10/01/18 15:42 Physical Exam: General exam: Appears comfortable, no acute distress HEENT: Pupils are equal and reactive to light Neck: No JVD, neck is supple trachea is midline Respiratory system: Clear breath sounds bilaterally. Gastrointestinal: Abdomen is soft, non distended, non tender, bowel sounds are present CVS: Regular rate and rhythm. No murmurs, rubs or gallops Musculoskeletal: No joint or muscle tenderness Extremities: Non tender, no edema, peripheral pulses are present Neuro: Oriented, no tremors, no focal neurological deficits Skin: No rashes Access: Right tunneled IJ catheter. Right AV fistula with good bruit Results & Data Laboratory Results Reviewed potassium of 4 yesterday
[2018-10-01] MEDS: HEPARIN SOD (PORCINE) 1000 UNIT/ML 10 ML VIAL IV SCH ×2 (19:05→19:06)
[2018-10-01] MEDS: DOXAZosin MESYLATE TAB 2 MG TAB PO SCH (19:14)
[2018-10-01] MEDS: ATORVASTATIN 40 MG TAB PO SCH (19:15)
[2018-10-02] MEDS: NovoLOG INSULIN PUMP SCH ×3 (01:19→11:48)
[2018-10-02] MEDS: HYDROmorphone INJ 0.5 MG/0.5 ML SYR IV PRN (01:23)
[2018-10-02] MEDS: CALCIUM ACETATE 667 MG CAP PO SCH ×2 (07:50→11:48)
[2018-10-02] MEDS: CARVEDILOL 12.5 MG TAB PO SCH (07:50)
[2018-10-02] MEDS: AMLODIPINE BESYLATE 5 MG TAB PO SCH (07:51)
[2018-10-02] MEDS: CLOPIDOGREL BISULFATE 75 MG TAB PO SCH (07:51)
[2018-10-02] MEDS: CHOLECALCIFEROL 1,000 UNITS TAB PO SCH (07:51)
[2018-10-02] MEDS: TORSEMIDE 20 MG TAB PO SCH (07:52)
[2018-10-02] MEDS: HEPARIN SOD 5,000 UNIT/0.5 ML VIAL SQ SCH (07:53)
[2018-10-02 10:18] LABS: Calcium 8.4 mg/dl (8.5-10.1); Est GFR (African American) 21.5; Est GFR (Non-African American) 18.5; Potassium 4.3 mmol/L (3.5-5.1)
--- NOTE | 2018-10-02 11:02 | Nephrology Progress Note ---
Date of Service October 02, 2018 Assessment & Plan (1) End-stage renal disease (ESRD): Patient now ESRD. Started dialysis 3 days ago. He tolerated HD yesterday with no UF. Has avf; Patient can be discharged if stable to continue dialysis outpatient at [place] on Wednesday. Patient is aware. He is interested in continuing to work. I have asked him to discuss with the dialysis unit about timing of his dialysis to enable him to continue work. He will also think about home hemodialysis as an option. (2) Acute chest pain: chest pain brought him to hospital but no evidence of ACS; does have pericardial effusion; likely uremic pericarditis. Chest pain is resolved. (3) Pericardial effusion without cardiac tamponade: Improving with dialysis (4) Anemia in ESRD (end-stage renal disease): plan to start TERRI w/ dialysis >> iron stores replete Subjective Patient complains of pain at the site of dialysis catheter insertion. No shortness of breath. Patient tolerated dialysis well yesterday. He complained of fatigue post dialysis. He is eager to be discharged today. Patient is set up for outpatient dialysis in [place]. Review of Systems All systems reviewed & are unremarkable except as noted in HPI & below Physical Exam 2 Vital Signs (Past 24 Hours): Last Vital Signs Temp 36.6 C 10/02/18 07:00 Pulse 61 10/02/18 07:00 Resp 18 10/02/18 07:00 BP 149/82 H 10/02/18 07:00 Pulse Ox 97 10/02/18 07:00 Physical Exam: General exam: Appears comfortable, no acute distress HEENT: Pupils are equal and reactive to light Neck: No JVD, neck is supple trachea is midline Respiratory system: Clear breath sounds bilaterally. Gastrointestinal: Abdomen is soft, non distended, non tender, bowel sounds are present CVS: Regular rate and rhythm. No murmurs, rubs or gallops Musculoskeletal: No joint or muscle tenderness Extremities: Non tender, no edema, peripheral pulses are present Neuro: Oriented, no tremors, no focal neurological deficits Skin: No rashes Access: Right tunneled IJ catheter. Right upper arm AV fistula with good bruit. Results & Data Laboratory Results Recent hemoglobin of 8.5., Potassium of 4.3
--- NOTE | 2018-10-02 13:51 | Hospitalist Progress Note ---
Date of Service October 02, 2018 Assessment & Plan (1) Acute chest pain: per Dr Bennett notes: Atypical Chest Pain: Risk factors: H/O HTN, HLP, Former Tobacco use disorder, DM Type I DD: Constochondritis, Pericardial effusion, R/O ACS Has been pain-free since admission Serial cardiac enzymes and EKG unremarkable for any ACS Repeat echo showed mild to moderate amount of pericardial effusion without any other other abnormalities Continue Plavix, statins, beta blockers Case discussed with director of design No further recommendation from director of design except the patient is to have dialysis to improve the pericardial effusion Nephrology consult-appreciate input and recommendation 10/02 significantly improved anticipate continued improvement with further HD ff up with Nephro and PCP DM Type I Diabetic retinopathy, nephropathy, neuropathy, Charcot foot Continue Insulin Pump Last A1C: 8.6 on 09/27/18 CKD IV Cr:4.15 --New baseline Recently had fistula placement Creatinine has been increasing Nephrology consulted underwent 2 HD sessions thru [facility] while admitted tolerating well so far -- next HD 10/04/18 HTN stable today Continue home medications monitor H/O Neurogenic bladder Bladder scan PRN Patient Straight Cath twice a day at baseline continue Doxazosin TIA Continue Plavix, Lipitor Denies any acute symptoms Anemia of chronic disease Received Procrit Hb at baseline monitor-hemoglobin is 8.0 d/c home today with Home Health Services ff up with Nephro for HD 10/04 ff up with PCP Dr. Singh 10/05 Subjective ff up for chest pain , ESRD patient seen resting in bed, comfortable in good spirits states he feels fine overall states chest discomfort is only mild, and continues to improve denies dyspnea, dizziness, palpitations, nausea voiding better denies other symptoms states he is ready and comfortable for discharge today Physical Exam 2 Vital Signs (Past 24 Hours): Last Vital Signs Temp 36.4 C L 10/02/18 12:17 Pulse 64 10/02/18 12:17 Resp 18 10/02/18 12:17 BP 124/75 10/02/18 12:17 Pulse Ox 98 10/02/18 12:17 Physical Exam: General- oriented x 3, not in distress, speaks in sentences with no effort or accessory muscle use Eyes- anicteric Neck- no JVD Lungs- clear breath sounds bilaterally, no rales/wheezes permcath right side of the chest: no signs of infection Heart- normal rate, regular rhythm; no murmurs Abdomen- normal bowel sounds, nondistended, soft, nontender Extremities- no pretibial edema, no calf tenderness fistula right arm: no signs of infection Neuro- alert, oriented x 3; no gross focal neurologic deficits Skin- warm & dry Results & Data Laboratory Results Laboratory Results - last 24 hr 10/01/18 10/01/18 10/01/18 14:03 16:17 20:08 Sodium Potassium Chloride Carbon Dioxide Anion Gap BUN Creatinine Est Cr Clr Drug Dosing Est GFR ( Amer) Est GFR (Non-Af Amer) BUN/Creatinine Ratio Glucose POC Glucose 131 H 138 H 95 Calcium 10/02/18 10/02/18 07:32 09:15 Sodium 138 Potassium 4.3 Chloride 104 Carbon Dioxide 26 Anion Gap 7.0 BUN 36 H Creatinine 3.96 H Est Cr Clr Drug Dosing 27.0 Est GFR ( Amer) 21.5 Est GFR (Non-Af Amer) 18.5 BUN/Creatinine Ratio 9.0 L Glucose 149 H POC Glucose 162 H Calcium 8.4 L
--- NOTE | 2018-10-07 09:58 | Discharge Summary ---
Date of Service October 07, 2018 Admission HPI Per Admitting Provider Patient is a 33 yr male with PMH of DM Type I on Insulin Pump, Diabetic retinopathy, nephropathy, neuropathy, Charcot foot, CKD IV, HTN, Neurogenic bladder, Former smoker, TIA, Anemia of chronic disease and other problems presents with history of chest pain since 3 days ago. He reports chest pain is constant, dull/pressure like pain, retrosternal, 3/10 intensity, increased with deep breathing and on exertion, non radiating, relived with NTG while in ED. Also reports dyspnea on exertion since many months. Reports dry cough since 2 days. Reports nausea but no vomiting. Patient had fistula placed on his right arm 2 weeks ago. He states, he was evaluated in Nephrology clinic yesterday and was noted to have elevated Troponin and he was advised to go to ED for further evaluation. Denies any history of palpitations, diaphoresis, wheezing, fever, chills, trauma, headache, vomiting, abdominal pain, diarrhea, dysuria, dizziness. Admission Exam Per Admitting Provider Vital Signs (Past 24 Hours): Last Vital Signs Temp 36.5 C 09/28/18 12:39 Pulse 69 09/28/18 13:28 Resp 20 09/28/18 13:28 BP 141/85 H 09/28/18 13:28 Pulse Ox 96 09/28/18 13:28 Physical Exam: Physical Exam: Vitals signs as noted above General Appearance:Moderately built and nourished, no apparent distress Head: normocephalic, Atraumatic Eyes: normal inspection, EOMI Neck: supple, Trachea midline Respiratory/Chest: Normal breath sounds, CTA, Reproducible on palpation Cardiovascular: S1, S2, No murmur Abdomen/GI:Soft, Non tender, Bowel sounds present Extremities/Musculoskelatal:normal inspection, chronic B/L LE edema, +R charcot foot Neurologic/Psych:AAOX3, grossly no focal neurological deficits Skin: normal color, warm Principal Diagnosis Chest Pain likely secondary Uremia, ESRD Discharge Exam Vital Signs (Past 24 Hours): Last Vital Signs Temp 36.4 C L 10/02/18 12:17 Pulse 64 10/02/18 12:17 Resp 18 10/02/18 12:17 BP 124/75 10/02/18 12:17 Pulse Ox 98 10/02/18 12:17 Physical Exam: General- oriented x 3, not in distress, speaks in sentences with no effort or accessory muscle use Eyes- anicteric Neck- no JVD Lungs- clear breath sounds bilaterally, no rales/wheezes permcath right side of the chest: no signs of infection Heart- normal rate, regular rhythm; no murmurs Abdomen- normal bowel sounds, nondistended, soft, nontender Extremities- no pretibial edema, no calf tenderness fistula right arm: no signs of infection Neuro- alert, oriented x 3; no gross focal neurologic deficits Skin- warm & dry Discharge Data Allergies Allergy/AdvReac Type Severity Reaction Status Date / Time No Known Allergies Allergy Verified 09/28/18 14:12 Consultations 09/28/18 14:22 ED Decision to Admit Stat 09/29/18 13:26 Consult Nephrology Routine 09/29/18 17:29 Consult Vascular Surgery Routine Procedures Performed Operation Date: 09/30/18 08:00 Actual Procedures p Insertion of Perm Catheter, Right Internal Jugular Approach, Ultrasound Localization of Right Internal Jugular Vein, Fluoroscopy for positioning , Moderate sedation from 1538 - 1610(Right) - Tirso Hodge MD Ordered Studies 09/30/18 08:59 EV 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 Routine Hospital Course (1) Acute chest pain: per Dr Bennett notes: Atypical Chest Pain: Risk factors: H/O HTN, HLP, Former Tobacco use disorder, DM Type I DD: Constochondritis, Pericardial effusion, R/O ACS Has been pain-free since admission Serial cardiac enzymes and EKG unremarkable for any ACS Repeat echo showed mild to moderate amount of pericardial effusion without any other other abnormalities Continue Plavix, statins, beta blockers Case discussed with toy mechanic No further recommendation from toy mechanic except the patient is to have dialysis to improve the pericardial effusion Nephrology consult-appreciate input and recommendation 10/02 significantly improved anticipate continued improvement with further HD ff up with Nephro and PCP DM Type I Diabetic retinopathy, nephropathy, neuropathy, Charcot foot Continue Insulin Pump Last A1C: 8.6 on 09/27/18 CKD IV Cr:4.15 --New baseline Recently had fistula placement Creatinine has been increasing Nephrology consulted underwent 2 HD sessions thru [facility] while admitted tolerating well so far -- next HD 10/04/18 HTN stable Continue home medications monitor H/O Neurogenic bladder Bladder scan PRN Patient Straight Cath twice a day at baseline continue Doxazosin TIA Continue Plavix, Lipitor Denies any acute symptoms Anemia of chronic disease Received Procrit Hb at baseline monitor-hemoglobin is 8.0 d/c home with Home Health Services ff up with Nephro for HD 10/04 ff up with PCP Dr. Singh 10/05 Total Time Total Time Spent Total Time Spent (In Minutes): 40 minutes Discharge Plan Discharge Items Patient Disposition: Home - Home Health Services Reason For Visit: CHEST PAIN Discharge Diagnosis: CHEST PAIN, KIDNEY DISEASE Discharge Goals: Decrease discomfort, Diagnostic testing and Therapeutic intervention Activity: As commented below Activity Comment: NO HEAVY EXERTION UNTIL RE-EVALUATED BY PRIMARY CARE PHYSICIAN Lifting: Wait until after follow-up appointment Exercise/Sports: Wait until after follow-up appointment Driving/Machine Use Comment: NO DRIVING Non-emergency contact: Primary Care Provider and Coverage Specialist Rn Call non-emergency contact if: you have any medication questions, your symptoms worsen, your pain is worsening, your pain is unusual for you, your pain is concerning for you, you have a fever, your wound has increased redness, your wound has increased drainage and your wound pain has increased Follow-up/Referrals: Ciro Singh MD [Primary Care Provider] - 10/05/18 12:45 pm Diet: Carb Count or DM1, Dialysis Renal and Heart Healthy Addtl Provider Instructions: PLEASE FOLLOW UP AT THE DIALYSIS CLINIC ON Wednesday10/04/18 FOR YOUR NEXT DIALYSIS SESSION. OBSERVE PROPER DAILY WOUND CARE FOR THE FISTULA SITE AND THE PERM CATH SITE. CALL YOUR PRIMARY CARE PHYSICIAN OR RETURN TO THE ER IMMEDIATELY IF WITH RECURRENCE/WORSENING OF SYMPTOMS, REDNESS/PAIN/SWELLING/DISCHARGE ON YOUR WOUND/ PERMCATH SITES, FEVER/CHILLS, NAUSEA/VOMITING, WEAKNESS, DIZZINESS. Prescriptions: Continue atorvastatin 40 mg tablet 40 mg PO HS RF: 0 torsemide 20 mg tablet 40 mg PO QAM RF: 0 clopidogrel 75 mg tablet 75 mg PO QAM RF: 0 calcium acetate 667 mg Tablet 667 mg PO TID RF: 0 carvedilol 3.125 mg tablet 12.5 mg PO BID RF: 0 amlodipine 10 mg tablet 10 mg PO QAM RF: 0 insulin aspart U-100 [Novolog U-100 Insulin aspart] 100 unit/mL Solution SUBCUT UD RF: 0 epoetin fredy [Procrit] 10,000 unit/mL Solution 10,000 unit/kg subcut UD RF: 0 cholecalciferol (vitamin D3) [Vitamin D3] 5,000 unit Tablet 5,000 unit PO QAM RF: 0 doxazosin 2 mg tablet 2 mg PO HS 30 Days Qty: 30 RF: 1 Stand-Alone Forms: [facility] Discharge Orders: Discharge Order (Routine); Ordered 10/02/18 Ordered By: Doug Mercado Admission Data Admit Date/Time: 09/30/18 12:14 Attending Provider: Doug Mercado Admit Provider: Richard Ndiaye Primary Care Provider: Ciro Singh Other Providers: Kellie Bains ; Tirso Hodge Service: Telemetry Other Interventions: Discharge Summary Assessment (RN) Last Done: 10/02/18 14:06 DC Date/Time DO NOT enter until pt leaves facility: 10/02/18 14:53
== END 2018-10-02 14:53 | disposition home health service (06) | DRG 673 ==
LOC: 2S 12:30 → ED 12:30 → 2S 16:43 → SUATTDRO 09-30 12:14

== ENCOUNTER 2018-11-05 14:47 | Observation (INO) ==
[2018-11-05] MEDS ORDERED: SODIUM CHLORIDE 0.9% 1000ML 500 ML IV ONE (15:07)
[2018-11-05] MEDS ORDERED: ACETAMINOPHEN 1,000 MG/100 ML VIAL IV STA (15:07)
[2018-11-05] MEDS ORDERED: PROMETHAZINE HCL 6.25 MG in SODIUM CHLORIDE 0.9% 50 ML IV STA (15:07)
[2018-11-05] MEDS ORDERED: KETOROLAC TROMETHAMINE 15 MG/ML VIAL IV STA (15:07)
[2018-11-05 15:50] LABS: Basophils # (auto) 0.07 K/uL (0-0.2); Eosinophils # (auto) 0.05 K/uL (0-0.5); Eosinophils % (auto) 1.4 %; Hematocrit (blood only) 27.7 % (42-52); Hemoglobin 9.6 g/dL (14.0-18.0); Lymphocytes # (auto) 0.62 K/uL (1.2-3.4); Lymphocytes % (auto) 17.3 %; Mean Corpuscular Hgb Conc 34.7 g/dL (32-36); Mean Corpuscular Volume 86.8 fL (80-100); Mean Platelet Volume 9.4 fL (7.4-10.4); Monocytes # (auto) 0.55 K/uL (0.11-0.59); Monocytes % (auto) 15.4 %; Neutrophils # (auto) 2.29 K/uL (1.4-6.5); Neutrophils % (auto) 63.9 %; Platelet Count 229 K/uL (130-400); RDW Coefficient of Variation 13.4 % (11.5-14.5); RDW Standard Deviation 42.6 fL (36.4-46.3); Red Blood Count 3.19 M/uL (4.7-6.1); White Blood Count 3.58 K/uL (4.8-10.8)
[2018-11-05 16:08] LABS: Albumin Level 2.3 gm/dl (3.4-5.0); BUN Creatinine Ratio 8.9 (10-20); Calcium 7.9 mg/dl (8.5-10.1); Creatinine Clr Calc Pharmacy 50.2 ml/min; Est GFR (African American) 45.2; Potassium 3.2 mmol/L (3.5-5.1)
[2018-11-05 16:11] LABS: Albumin Globulin Ratio 0.6 (0.9-2); Bilirubin,Total 0.3 mg/dl (0.2-1); Globulin 4.1 gm/dl (2.5-4.0); Total Protein 6.4 gm/dl (6.4-8.2)
[2018-11-05] MEDS ORDERED: DEXTROSE 50% 50 ML SYRINGE IV ONE ×2 (16:13→16:14)
[2018-11-05] MEDS ORDERED: DEXTROSE 5% 1,000 ML IV STA (16:14)
--- NOTE | 2018-11-05 16:54 | XRay Report ---
PA CHEST WITH ABDOMINAL SERIES CLINICAL HISTORY: Vomiting. Generalized abdominal pain. FINDINGS: A PA chest radiograph is compared to study dated 09/28/2018. A right internal jugular central venous in fusion port is new from previous. The heart is normal for projection. The mediastinal contour is with in normal limits. Chronic interstitial thickening is similar to previous. There is no airspace consol idation or pleural effusion. No pneumothorax is seen. The bony thorax is grossly intact. Supine and erect abdominal radiographs are correlated with abdominal CT dated 03/23/2018. There is a no nobstructed abdominal bowel gas pattern. Moderate colonic fecal retention is observed. No evidence of intraperitoneal free air is seen. There are no abnormal abdominal calcifications. Numerous phlebolit hs are seen in the pelvis. The lumbosacral spine and bony pelvis appear intact. IMPRESSION: 1. No active disease in the chest. 2. Nonobstructed abdominal bowel gas pattern noting moderate constipation. 3. A right internal jugular central venous infusion port is new from previous. Electronically signed by: Alvarez Juan M.D. 11/05/2018 4:53 PM
--- NOTE | 2018-11-05 17:11 | Emergency Department Note ---
Entered by Humberto Mukherjee acting as a scribe for Alvarez Patel MD History of Present Illness General Chief complaint: Vomiting Stated complaint: vomit/nausea Time Seen by Provider: 11/05/18 15:00 Source: patient and other (nurse) History of Present Illness Onset (ago): hour(s) (at dialysis prior to arrival) Pain Consistency: + other (last vomited prior to arrival) Quality: + other (vomiting, hypoglycemia) Relieved By: + medication (temporarily with Zofran) Exacerbated By: + other (started vomiting at dialysis) Associated symptoms: + headaches and + other (denies diarrhea, falling, or head trauma) The patient is a 33 year old male who presents to the Emergency Room with com plaints of vomiting beginning prior to arrival. Nursing staff reports that while at dialysis today, the patient started to vomit. His blood sugar was found to be in the 30s, and after administration of glucose twice, his blood sugar increased to 134 prior to arrival. Upon arrival his blood sugar was in the 90s. She states that the patient was also given 4 Zofran, and he has not vomited since arrival to the ER. The patient reports that he was feeling fine this morning, but he started vomiting after one hour of dialysis. He states that he was able to finish dialysis today. He reports that he had a cup of fruit this morning and nothing else since that time, noting that he usually eats an egg sandwich the morning of dialysis. He states that the nausea medication that he was given seemed to temporarily improve his symptoms, but he did vomit again prior to arrival. He reports that his head feels horrible, stating that he usually gets headaches at dialysis, but it was worse today. He notes that his stomach feels weird. He denies diarrhea, falling, or head trauma. He states that he still makes urine. He notes that he was evaluated two days ago in the ER for hypoglycemia. Home Medications Home Medications Medication Instructions Recorded Confirmed Type Novolog U-100 Insulin aspart 0 unit SUBCUT UD 09/28/18 11/05/18 History amlodipine 10 mg PO QAM 09/28/18 11/05/18 History atorvastatin 40 mg PO HS 09/28/18 11/05/18 History calcium acetate 1,334 mg PO TIDM 09/28/18 11/05/18 History cholecalciferol (vitamin D3) 5,000 unit PO QAM 09/28/18 11/05/18 History [Vitamin D3] clopidogrel 75 mg PO QAM 09/28/18 11/05/18 History torsemide 40 mg PO QAM 09/28/18 11/05/18 History doxazosin 2 mg PO HS 30 Days #30 tab 10/02/18 11/05/18 Rx calcium acetate 667 mg PO UD 11/03/18 11/05/18 History carvedilol [Coreg] 12.5 mg PO BID 11/03/18 11/05/18 History insulin glargine [Lantus U-100 24 unit SUBCUT DAILY 11/03/18 11/05/18 History Insulin] Allergies Allergy/AdvReac Type Severity Reaction Status Date / Time No Known Allergies Allergy Verified 11/03/18 19:29 Past Med/Surg History Medical History Esophagitis ESRD (end stage renal disease) (Chronic) TIA (transient ischemic attack) (Chronic) Anemia in chronic kidney disease (CKD) (Chronic) Nephrotic syndrome due to diabetes mellitus (Chronic) DVT prophylaxis Fatty liver (Chronic) Charcot foot due to diabetes mellitus (Chronic) Nausea and vomiting (Chronic) Diabetic nephropathy (Chronic) Diabetic neuropathy (Chronic) Diabetic retinopathy (Chronic) 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) Anemia (Chronic) Hypertension (Chronic) CKD (chronic kidney disease), stage III (Resolved) Hyperglycemia (Resolved) Neurological symptoms (Resolved) Surgical History History of esophagogastroduodenoscopy (EGD) AV fistula (Chronic) Hx of eye surgery Family History Mother Hypertension Grandfather (Maternal) Diabetes Grandmother (Maternal) Diabetes Grandmother (Paternal) Diabetes Other Heart disease Social History Preferred Language: Sami Communication Ability: Effective Beliefs That Will Affect Care: None marital status: single Current Living Situation: Alone current occupational status: employed Other Information That Helps Us Care for You: No Feels Safe at Home: Yes Smoking Status: Former smoker Hx Alcohol Use: No Hx Substance Use: No Review of Systems See HPI for pertinent positives & negatives. and A total of 10 systems reviewed and were otherwise negative Physical Exam Vital Signs Vital Signs - 24 hr 11/05/18 15:08 11/05/18 16:15 03/16/19 17:44 Temperature 36.8 C Temperature Source Oral Sepsis Recent Fever Within 48 Hours No Sepsis New/Unexplained Change in Mental Status No Sepsis Action Taken by Nursing No Action Required Pulse Rate 87 Pulse Rate [Right Finger] 81 83 Respiratory Rate 20 19 20 Respiratory Effort / Characteristics Non-Labored Non-Labored Spontaneous Non-Labored Spontaneous Respiratory Depth Normal Normal Normal Respiratory Pattern Regular Regular Regular Blood Pressure 189/105 H Blood Pressure [Left Arm] 175/100 H 177/103 H Blood Pressure Mean 133 Blood Pressure Mean [Left Arm] 125 127 Blood Pressure Position Lying Blood Pressure Position [Left Arm] Sitting Lying Pulse Oximetry 98 100 98 Oxygen Delivery Method Room Air Room Air Room Air 11/05/18 19:00 11/05/18 20:08 Temperature Temperature Source Sepsis Recent Fever Within 48 Hours Sepsis New/Unexplained Change in Mental Status Sepsis Action Taken by Nursing Pulse Rate Pulse Rate [Right Finger] 84 Respiratory Rate 20 Respiratory Effort / Characteristics Non-Labored Spontaneous Respiratory Depth Normal Respiratory Pattern Regular Blood Pressure Blood Pressure [Left Arm] 160/97 H Blood Pressure Mean Blood Pressure Mean [Left Arm] 118 Blood Pressure Position Blood Pressure Position [Left Arm] Lying Pulse Oximetry 95 Oxygen Delivery Method Room Air Room Air GENERAL: Patient is in no acute distress. HEENT: No acute trauma, normocephalic atraumatic, mucous membranes moist, no nasal congestion, no scleral icterus. NECK: No stridor, no adenopathy, no meningismus, trachea is midline. LUNGS: Clear to auscultation bilaterally, no wheeze, no rhonchi, breath sounds equal. HEART: Without murmurs gallops or rubs, regular rate and rhythm. ABDOMEN: Soft, diffusely mildly tender, bowel sounds positive, no hernias, no peritonitis. EXTREMITIES: Brace noted on the right ankle. No cyanosis or edema, full range of motion of all the joints without pain or difficulty, no signs for acute trauma. NEUROLOGIC: Oriented x 3, no acute motor or sensory deficits, no focal weakness. SKIN: Pale, no rash, no jaundice, no diaphoresis. Course 150: Past medical records reviewed. The patient was evaluated in room A4A, and a complete history and physical examination were performed. 1658: I updated the patient on results. His blood sugar is still low. 170: I [facility] Kavita Franklin [facility] The patient will be reevaluated for hospitalization. Consultations Consultation #1: I consulted Kavita Franklin PA-C: [facility] Hospitalist. The patient will be reevaluated for hospitalization. Time: 17:05 Administered Medications Atorvastatin Calcium (Lipitor) 40 mg PO HS [facility] Stop: 12/05/18 20:59 Last Admin: 11/05/18 21:16 Dose: 40 mg Documented by: [id number] Calcium Acetate (Phoslo) 667 mg PO DAILY@ [facility]ERY Stop: 12/05/18 20:59 Last Admin: 11/05/18 21:18 Dose: 667 mg Documented by: [id number] Carvedilol (Coreg) 12.5 mg PO BID [facility]ERY Stop: 12/05/18 20:59 Last Admin: 11/05/18 22:16 Dose: 12.5 mg Documented by: [id number] Dextrose (Dextrose 50%) 25 - 50 ml IV UD PRN; Protocol PRN Reason: Hypoglycemia Protocol Stop: 12/05/18 20:01 Last Admin: 11/05/18 20:10 Dose: 25 ml Documented by: [id number] Docusate Sodium (Colace) 100 mg PO BID EMERY Stop: 12/05/18 20:59 Last Admin: 11/05/18 21:16 Dose: 100 mg Documented by: [id number] Doxazosin Mesylate (Cardura) 2 mg PO HS [facility] Stop: 12/05/18 20:59 Last Admin: 11/05/18 21:16 Dose: 2 mg Documented by: [id number] Heparin Sodium (Porcine) (Heparin Sodium (Porcine)) 5,000 units SQ Q8 [facility]ERY Stop: 12/05/18 21:59 Last Admin: 11/05/18 22:18 Dose: Not Given Documented by: [id number] Potassium Chloride/Dextrose/Sod Cl (D5nss + 20meq Kcl) 20 meq in 1,000 mls @ 80 mls/hr IV .[id number] EMERY Stop: 11/06/18 08:44 Last Admin: 11/05/18 21:08 Dose: 80 mls/hr Documented by: [id number] Metoclopramide HCl (Reglan) 5 mg IV QID EMERY Stop: 11/07/18 20:59 Last Admin: 11/05/18 21:19 Dose: 5 mg Documented by: [id number] Discontinued Medications Dextrose (Dextrose 50%) Confirm Administered Dose 50 ml IV .STK-MED ONE Stop: 11/05/18 16:14 Last Admin: 11/05/18 16:53 Dose: Not Given Documented by: [id number] Dextrose (Dextrose 50%) 25 ml IV NOW ONE Stop: 11/05/18 16:15 Last Admin: 11/05/18 16:52 Dose: 25 ml Documented by: [id number] Acetaminophen (Ofirmev) 1,000 mg in 100 mls @ 400 mls/hr IV NOW STA Stop: 11/05/18 15:21 Last Infusion: 11/05/18 16:01 Dose: 0 mls/hr Documented by: [id number] Admin: 11/05/18 15:35 Dose: 400 mls/hr Documented by: [id number] Promethazine HCl 6.25 mg/ (Sodium Chloride) 50.25 mls @ 201 mls/hr IV NOW STA Stop: 11/05/18 15:21 Last Infusion: 11/05/18 20:22 Dose: 0 mls/hr Documented by: [id number] Admin: 11/05/18 17:03 Dose: 201 mls/hr Documented by: [id number] Sodium Chloride (Nss 1000ml) 500 mls @ 999 mls/hr IV .[id number] ONE Stop: 11/05/18 15:37 Last Infusion: 11/05/18 16:09 Dose: 0 mls/hr Documented by: [id number] Admin: 11/05/18 15:35 Dose: 999 mls/hr Documented by: [id number] Dextrose (D5w) 1,000 mls @ 80 mls/hr IV .[id number] STA Stop: 11/06/18 04:43 Last Infusion: 11/05/18 21:11 Dose: 0 mls/hr Documented by: [id number] Admin: 11/05/18 17:15 Dose: 80 mls/hr Documented by: [id number] Ketorolac Tromethamine (Toradol) 15 mg IV NOW STA Stop: 11/05/18 15:08 Last Admin: 11/05/18 15:33 Dose: 15 mg Documented by: [id number] Labetalol HCl (Normodyne) 10 mg IV NOW STA Stop: 11/05/18 17:44 Last Admin: 11/05/18 19:20 Dose: 10 mg Documented by: [id number] Cosigned by: [id number] Miscellaneous Information (Consult Glycemic Management Pharmacy) 1 ea N/A NOW STA; Protocol Stop: 11/05/18 17:43 Last Admin: 11/05/18 21:26 Dose: Not Given Documented by: [id number] Potassium Chloride (Klor-Con M10) 20 meq PO NOW STA Stop: 11/05/18 17:44 Last Admin: 11/05/18 21:08 Dose: 20 meq Documented by: [id number] Medical Decision Making Differential Diagnosis Differential diagnosis: viral illness or foodborne illness, dehydration, bowel obstruction, aspiration, electrolyte imbalance, anemia, influenza Medical Records Attestation: I reviewed the patient's medical records. Home Medications Current Medication List: was personally reviewed by me Laboratory Data Attestation: I reviewed the patient's lab results. Result diagrams: 11/05/18 15:39 11/05/18 15:39 Lab Results 11/05/18 11/05/18 11/05/18 Range/Units 14:50 15:10 15:39 WBC 3.58 L (4.8-10.8) K/uL RBC 3.19 L (4.7-6.1) M/uL Hgb 9.6 L (14.0-18.0) g/dL Hct 27.7 L (42-52) % MCV 86.8 (80-100) fL MCH 30.1 (25-34) pg MCHC 34.7 (32-36) g/dL RDW Std Deviation 42.6 (36.4-46.3) fL RDW Coeff of Ralph 13.4 (11.5-14.5) % Plt Count 229 (130-400) K/uL MPV 9.4 (7.4-10.4) fL Immature Gran % (Auto) 0.0 % Neut % (Auto) 63.9 % Lymph % (Auto) 17.3 % [place] % (Auto) 15.4 % Eos % (Auto) 1.4 % Baso % (Auto) 2.0 % Immature Gran # (Auto) 0.00 (0.00-0.02) K/uL Neut # (Auto) 2.29 (1.4-6.5) K/uL Lymph # (Auto) 0.62 L (1.2-3.4) K/uL [place] # (Auto) 0.55 (0.11-0.59) K/uL Eos # (Auto) 0.05 (0-0.5) K/uL Baso # (Auto) 0.07 (0-0.2) K/uL Sodium (136-145) mmol/L Potassium (3.5-5.1) mmol/L Chloride (98-107) mmol/L Carbon Dioxide (21-32) mmol/L Anion Gap (3-11) BUN (7-18) mg/dl Creatinine (0.6-1.4) mg/dl Est Cr Clr Drug Dosing ml/min Est GFR ( Amer) Est GFR (Non-Af Amer) BUN/Creatinine Ratio (10-20) Glucose (70-99) mg/dl POC Glucose 99 (70-99) Calcium (8.5-10.1) mg/dl Magnesium (1.8-2.4) mg/dl Total Bilirubin (0.2-1) mg/dl AST (15-37) U/L ALT (12-78) U/L Alkaline Phosphatase (45-117) U/L Total Protein (6.4-8.2) gm/dl Albumin (3.4-5.0) gm/dl Globulin (2.5-4.0) gm/dl Albumin/Globulin Ratio (0.9-2) Lipase (73-393) U/L Influenza Type A Ag Neg for Influ A (Neg) Influenza Type B Ag Neg for Influ B (Neg) 11/05/18 11/05/18 11/05/18 Range/Units 15:39 15:39 17:01 WBC (4.8-10.8) K/uL RBC (4.7-6.1) M/uL Hgb (14.0-18.0) g/dL Hct (42-52) % MCV (80-100) fL MCH (25-34) pg MCHC (32-36) g/dL RDW Std Deviation (36.4-46.3) fL RDW Coeff of Ralph (11.5-14.5) % Plt Count (130-400) K/uL MPV (7.4-10.4) fL Immature Gran % (Auto) % Neut % (Auto) % Lymph % (Auto) % [place] % (Auto) % Eos % (Auto) % Baso % (Auto) % Immature Gran # (Auto) (0.00-0.02) K/uL Neut # (Auto) (1.4-6.5) K/uL Lymph # (Auto) (1.2-3.4) K/uL [place] # (Auto) (0.11-0.59) K/uL Eos # (Auto) (0-0.5) K/uL Baso # (Auto) (0-0.2) K/uL Sodium 131 L (136-145) mmol/L Potassium 3.2 L (3.5-5.1) mmol/L Chloride 97 L (98-107) mmol/L Carbon Dioxide 31 (21-32) mmol/L Anion Gap 3.0 (3-11) BUN 19 H (7-18) mg/dl Creatinine 2.14 H (0.6-1.4) mg/dl Est Cr Clr Drug Dosing 50.2 ml/min Est GFR ( Amer) 45.2 Est GFR (Non-Af Amer) 39.0 BUN/Creatinine Ratio 8.9 L (10-20) Glucose 67 L (70-99) mg/dl POC Glucose 72 (70-99) Calcium 7.9 L (8.5-10.1) mg/dl Magnesium 2.0 (1.8-2.4) mg/dl Total Bilirubin 0.3 (0.2-1) mg/dl AST 11 L (15-37) U/L ALT 17 (12-78) U/L Alkaline Phosphatase 116 (45-117) U/L Total Protein 6.4 (6.4-8.2) gm/dl Albumin 2.3 L (3.4-5.0) gm/dl Globulin 4.1 H (2.5-4.0) gm/dl Albumin/Globulin Ratio 0.6 L (0.9-2) Lipase 272 Cancelled (73-393) U/L Influenza Type A Ag (Neg) Influenza Type B Ag (Neg) 11/05/18 11/05/18 11/05/18 Range/Units 19:02 19:51 20:27 WBC (4.8-10.8) K/uL RBC (4.7-6.1) M/uL Hgb (14.0-18.0) g/dL Hct (42-52) % MCV (80-100) fL MCH (25-34) pg MCHC (32-36) g/dL RDW Std Deviation (36.4-46.3) fL RDW Coeff of Ralph (11.5-14.5) % Plt Count (130-400) K/uL MPV (7.4-10.4) fL Immature Gran % (Auto) % Neut % (Auto) % Lymph % (Auto) % [place] % (Auto) % Eos % (Auto) % Baso % (Auto) % Immature Gran # (Auto) (0.00-0.02) K/uL Neut # (Auto) (1.4-6.5) K/uL Lymph # (Auto) (1.2-3.4) K/uL [place] # (Auto) (0.11-0.59) K/uL Eos # (Auto) (0-0.5) K/uL Baso # (Auto) (0-0.2) K/uL Sodium (136-145) mmol/L Potassium (3.5-5.1) mmol/L Chloride (98-107) mmol/L Carbon Dioxide (21-32) mmol/L Anion Gap (3-11) BUN (7-18) mg/dl Creatinine (0.6-1.4) mg/dl Est Cr Clr Drug Dosing ml/min Est GFR ( Amer) Est GFR (Non-Af Amer) BUN/Creatinine Ratio (10-20) Glucose (70-99) mg/dl POC Glucose 73 68 L* 118 H (70-99) Calcium (8.5-10.1) mg/dl Magnesium (1.8-2.4) mg/dl Total Bilirubin (0.2-1) mg/dl AST (15-37) U/L ALT (12-78) U/L Alkaline Phosphatase (45-117) U/L Total Protein (6.4-8.2) gm/dl Albumin (3.4-5.0) gm/dl Globulin (2.5-4.0) gm/dl Albumin/Globulin Ratio (0.9-2) Lipase (73-393) U/L Influenza Type A Ag (Neg) Influenza Type B Ag (Neg) Imaging Data Radiologist's Impression: Radiology results as stated below per my review and the radiologist's interpretation: PA CHEST WITH ABDOMINAL SERIES CLINICAL HISTORY: Vomiting. Generalized abdominal pain. FINDINGS: A PA chest radiograph is compared to study dated 09/28/2018. A right internal jugular central venous infusion port is new from previous. The heart is normal for projection. The mediastinal contour is within normal limits. Chronic interstitial thickening is similar to previous. There is no airspace consolidation or pleural effusion. No pneumothorax is seen. The bony thorax is grossly intact. Supine and erect abdominal radiographs are correlated with abdominal CT dated 03/23/2018. There is a nonobstructed abdominal bowel gas pattern. Moderate colonic fecal retention is observed. No evidence of intraperitoneal free air is seen. There are no abnormal abdominal calcifications. Numerous phleboliths are seen in the pelvis. The lumbosacral spine and bony pelvis appear intact. IMPRESSION: 1. No active disease in the chest. 2. Nonobstructed abdominal bowel gas pattern noting moderate constipation. 3. A right internal jugular central venous infusion port is new from previous. Electronically signed by: Alvarez Juan M.D. 11/05/2018 4:53 PM Blood Pressure Blood Pressure Findings: Elevated blood pressure Blood Pressure Disposition: further management by hospitalist MDM Narrative There is no leukocytosis. The patient is anemic but this is baseline looking back at previous testing. Renal panel testing does show an elevated creatinine consistent with his history of dialysis. Glucose was low at 67. There was no hepatitis. Influenza testing was negative. Abdominal series shows some potential constipation, no bowel obstruction, no pneumonia. The patient presents with vomiting and persistent hypoglycemia. He had received D50 x2 prior to arrival. He required D25 here and then was eventually placed on a D5 drip. He was given IV Tylenol for his headache. IV Toradol for his headache. He received a dose of IV Phenergan for persistent nausea. He received a small 500 cc saline bolus. The patient's blood sugar keeps dropping. He has required IV dextrose multiple times. He is vomiting. I do think a hospital stay is warranted. The patient did consent to hospitalization. I spoke to the patient and nurse case manager. The on-call hospitalist was consulted. The cause for his symptom complex at this point is not completely clear. Impression & Plan Hypoglycemia, Vomiting, Dehydration Discharge Plan Visit Data *Final* Discharge Date/Time: 11/05/18 20:08 Chief Complaint: Vomiting Stated Complaint: vomit/nausea ED Provider: Alvarez Patel Discharge Problem: Hypoglycemia, Vomiting, Dehydration Patient Disposition: Admitted As Inpatient Discharge Instructions Interventions: ED Discharge Assessment Last Done: 11/05/18 20:08 Discharge Problem: Vomiting Qualifiers: Vomiting type: unspecified Vomiting Intractability: intractable Nausea presence: with nausea Qualified Code(s): R11.2 - Nausea with vomiting, unspecified The scribe's documentation has been prepared under my direction and personally reviewed by me in its entirety. I confirm that the note above accurately reflects all work, treatment, procedures, and medical decision making performed by me.
[2018-11-05] MEDS ORDERED: PHARMACY GLYCEMIC MGMT CONSULT STA (17:42)
[2018-11-05] MEDS ORDERED: LABETALOL HCL IV 5 MG/ML 20ML IV STA (17:43)
[2018-11-05] MEDS ORDERED: POTASSIUM CHLORIDE 10 MEQ TABCR PO STA (17:43)
--- NOTE | 2018-11-05 18:32 | History & Physical Report ---
Date of Service November 05, 2018 Assessment & Plan (1) Intractable nausea and vomiting: (2) Hypoglycemia associated with diabetes: This is a 33-year-old male who has significant past medical history of T1 DM, diabetic nephropathy, retinopathy, end-stage renal disease on HD, HTN, history of TIA, anemia of chronic disease, Charcot arthropathy, fatty liver who presents to [facility] secondary to persistent hypoglycemia that developed during hemodialysis today. Prior to arrival patient received amp of D50 x2 without significant improvement in hypoglycemia. Received D 25 and placed on dextrose drip in ED to maintain euglycemia. Lab work revealed WBC 3.58, hematoma 9.6, hematocrit 27.7, platelet 229, sodium 131, potassium 3.2, chloride 97, BUN 17, creatinine 2.14, influenza negative. Chest x-ray negative for acute cardiopulmonary abnormality. Abdominal x-ray positive for moderate constipation but no obstruction. No signs or symptoms of acute infection. Hypoglycemia likely secondary to excessive insulin and HD but still need to rule out infection -Admit to MedSurg/telemetry -Monitor BSG every 2 hours -IV D5 normal saline 80 cc/h x 1 L with 20 M EQ KCl -Consult glycemic pharmacist for further assistance in diabetic management -Reglan 5 mg IV every 6 hours times 48 hours for persistent nausea and vomiting ? If there is component of gastroparesis secondary to diabetes -Clear liquid diet -Patient does still produce urine so will obtain UA C&S to rule out UTI otherwise chest x-ray negative, influenza negative, asymptomatic of infection -Check lipase (3) Hypertension: -Blood pressure significantly elevated despite taking oral meds this morning -Likely in setting of nausea vomiting and acute illness -Labetalol 10 mg IV x1 now and every 6 as needed -Continue Coreg, amlodipine, torsemide in a.m. (4) Hypokalemia: -Likely in the setting of vomiting -Potassium chloride 20 M EQ x1 now along with 20 M EQ and IVF -Repeat BMP in a.m. (5) Constipation: -MiraLAX 17 g daily -Colace 100 mg twice daily -Check KUB in a.m. (6) Diabetes mellitus type 1 with complications: -Patient follows [facility] diabetic pharmacist -Current regimen recently reduced on 11/04/18 to - Current diabetic medications: (not currently on pump) Lantus vial 24 units daily Novolog vial 1 unit: 8g carbs PLUS CF 1:20 over 140 -We will consult glycemic pharmacy for further management of patient type 1 diabetes to prevent hypo-glycemia -Last A1c 09/27/18 8.6, check A1c in a.m. (7) ESRD (end stage renal disease): -Hemodialysis Wednesday and Saturdays -will consult nephrology and arrange dialysis if patient will be hospitalized greater than 24 hours (8) Anemia in chronic kidney disease (CKD): -H&H is stable at 9.6 and 27.7 -Monitor BMP (9) TIA (transient ischemic attack): -hx of TIA -continue plavix and statin therapy (10) DVT prophylaxis: -Heparin sq 5000 units every 8 hours Disposition: DC to home when able Follow-up: PCP Dr. Coffey upon discharge along with appropriate MTM glycemic pharmacy follow-up Patient was seen and examined in collaboration with Dr. Ndiaye, please see addendum History of Present Illness Chief Complaint: Persistent hypoglycemia that started at HD today. Primary Care Provider: Ciro Singh MD This is a 33-year-old male who has significant past medical history of T1 DM, diabetic nephropathy, retinopathy, end-stage renal disease on HD, HTN, history of TIA, anemia of chronic disease, Charcot arthropathy, fatty liver who presents to [facility] secondary to persistent hypoglycemia that developed during hemodialysis today. Patient was in his usual state of health until he developed nausea and vomiting at HD. Blood glucose was noted to be in 60s. He had persistent nausea and emesis approximately 45. Despite amp of D50 x2 hypoglycemia persisted. Due to continued ill feeling and persistent hypoglycemia he was brought via EMS to [facility] ED. He received dextrose 25 and eventual D5 water at 80 cc/h to maintain euglycemia. After Phenergan administration his nausea has improved and he has not had any further emesis but continues to feel poorly. He denies any recent illness, fever, chills, sweats, lightheadedness, dizziness, syncope, chest pain, shortness breath, cough, abdominal pain, diarrhea, change in bowel habits. He still produces minimal urine and denies dysuria, increased frequency or urgency with urination, hematuria. Up until today appetite has been okay. He is currently not using insulin pump and has been using basal bolus administration. He states this morning he took Lantus 24 units along with a NovoLog sliding scale, unsure of amount. His blood sugar this morning was in 200s which is normal for him. He states his last A1c was in the nines. He also presented to ED on 11/03 for similar symptoms and hypoglycemia. His glycemic pharmacist through [employer] spoke with patient on 11/04/18 and it was recommended to decrease his basal Lantus to 20 units daily and to take a snack/meal with him during dialysis. Further his NovoLog correction was 1 unit per 8 carbs plus a correction factor of 1:2 over 140 Allergies Allergy/AdvReac Type Severity Reaction Status Date / Time No Known Allergies Allergy Verified 11/03/18 19:29 Home Medications Home Medications Medication Instructions Recorded Confirmed Type Novolog U-100 Insulin aspart 0 unit SUBCUT UD 09/28/18 11/05/18 History amlodipine 10 mg PO QAM 09/28/18 11/05/18 History atorvastatin 40 mg PO HS 09/28/18 11/05/18 History calcium acetate 1,334 mg PO TIDM 09/28/18 11/05/18 History cholecalciferol (vitamin D3) 5,000 unit PO QAM 09/28/18 11/05/18 History [Vitamin D3] clopidogrel 75 mg PO QAM 09/28/18 11/05/18 History torsemide 40 mg PO QAM 09/28/18 11/05/18 History doxazosin 2 mg PO HS 30 Days #30 tab 10/02/18 11/05/18 Rx calcium acetate 667 mg PO UD 11/03/18 11/05/18 History carvedilol [Coreg] 12.5 mg PO BID 11/03/18 11/05/18 History insulin glargine [Lantus U-100 24 unit SUBCUT DAILY 11/03/18 11/05/18 History Insulin] Past Med/Surg History Medical History Esophagitis ESRD (end stage renal disease) (Chronic) TIA (transient ischemic attack) (Chronic) Anemia in chronic kidney disease (CKD) (Chronic) Nephrotic syndrome due to diabetes mellitus (Chronic) DVT prophylaxis Fatty liver (Chronic) Charcot foot due to diabetes mellitus (Chronic) Nausea and vomiting (Chronic) Diabetic nephropathy (Chronic) Diabetic neuropathy (Chronic) Diabetic retinopathy (Chronic) 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) Anemia (Chronic) Hypertension (Chronic) CKD (chronic kidney disease), stage III (Resolved) Hyperglycemia (Resolved) Neurological symptoms (Resolved) Surgical History History of esophagogastroduodenoscopy (EGD) AV fistula (Chronic) Hx of eye surgery Family History Mother Hypertension Grandfather (Maternal) Diabetes Grandmother (Maternal) Diabetes Grandmother (Paternal) Diabetes Other Heart disease Social History Preferred Language: Burkinan Communication Ability: Effective Beliefs That Will Affect Care: None marital status: single Current Living Situation: Alone current occupational status: employed Other Information That Helps Us Care for You: No Feels Safe at Home: Yes Smoking Status: Former smoker Hx Alcohol Use: No Hx Substance Use: No Review of Systems All systems reviewed & are unremarkable except as noted in HPI & below Physical Exam Vital Signs (Past 24 Hours): Last Vital Signs Temp 36.8 C 11/05/18 15:08 Pulse 83 11/05/18 17:44 Resp 20 11/05/18 17:44 BP 177/103 H 11/05/18 17:44 Pulse Ox 98 11/05/18 17:44 Physical Exam: Gen: Thin, ill-appearing, male, pale NAD, sitting up in bed, pleasant, conversing easily Head: Normocephalic, Atraumatic Eyes: Sclera normal, no conjunctival injection, PERRLA, EOMI ENT: Gross hearing intact, normal pharynx, mucous membranes moist Neck: supple, no adenopathy, No JVD, no bruit, Resp: Clear to auscultation b/l, no wheeze, rales, rhonchi. Normal insp/exp effort, no accessory muscle use CV: Regular rate, regular rhythm, no murmur, rub, gallop, or ectopy, right anterior chest wall Vas-Cath in place Abd: +BS x 4, soft, nontender, nondistended Musculoskeletal: moves extremities active rom x 4, strength intact, good trace clerk strength Extremities: Trace edema bilaterally Skin: warm, moist, no rash, negative turgor, cap refill < 2sec Neuro: Alert and oriented x 3, speech normal, good mood/affect, cran nerve 2-12 intact grossly : deferred Results & Data Laboratory Results Short CBC 11/05/18 Range/Units 15:39 WBC 3.58 L (4.8-10.8) K/uL Hgb 9.6 L (14.0-18.0) g/dL Hct 27.7 L (42-52) % Plt Count 229 (130-400) K/uL BMP 11/05/18 15:39 Sodium 131 L Potassium 3.2 L Chloride 97 L Carbon Dioxide 31 BUN 19 H Creatinine 2.14 H Glucose 67 L Calcium 7.9 L Liver Function 11/05/18 Range/Units 15:39 Total Bilirubin 0.3 (0.2-1) mg/dl AST 11 L (15-37) U/L ALT 17 (12-78) U/L Alkaline Phosphatase 116 (45-117) U/L Albumin 2.3 L (3.4-5.0) gm/dl Diagnostic Findings CXR:IMPRESSION: 1. No active disease in the chest. 2. Nonobstructed abdominal bowel gas pattern noting moderate constipation. 3. A right internal jugular central venous infusion port is new from previous. Code Status & VTE Plan Code Status Full Code VTE Prophylaxis Plan VTE Prophylaxis will be ordered: Yes Supervising Physician Co-Signing Physician Notes Patient is a 33-year-old male with history of type 1 diabetes mellitus, end- stage renal disease on dialysis and other problems presents with history of intractable nausea and vomiting which started while getting dialysis today. He was noted to be hypoglycemic. Patient was brought to [facility] for further management. While in ED patient was noted to have elevated blood pressure, his electrolytes suggestive of hyponatremia hypochloremia and hypokalemia. Imaging studies and also history of any bowel obstruction but shows findings suggestive of constipation. On exam patient is moderately built and nourished, no distress, lungs are clear to auscultation, S1-S2, no murmur, abdomen is soft, nontender, bowel sounds are present, neurologically no focal deficits, trace bilateral pedal edema. Patient states his pharmacist is adjusting his Lantus dose secondary to hypoglycemia. Patient will be admitted for management of intractable nausea vomiting and hypoglycemia. None plan to start on D5 normal saline, replace electrolytes, start on IV Reglan, KUB in the morning, start on clear liquid diet and advance diet as tolerated. Antiemetics to control nausea vomiting. Bowel regimen to prevent worsening of constipation. Pharmacy will be consulted for management of hyperglycemia and diabetes. If patient's hospitalization is prolonged, plan to consult nephrology for management of dialysis. Will start on labetalol as needed for blood pressure management. I personally reviewed the record. Patient is interviewed and examined at bedside. Patient's care is coordinated with Kavita Franklin PA-C. Please refer to the documentation above for details of patient's presentation and for discussion of other issues. (1) Anemia in chronic kidney disease (CKD) Chronic kidney disease stage: stage 4 (severe) Qualified Code(s): N18.4 - Chronic kidney disease, stage 4 (severe); D63.1 - Anemia in chronic kidney disease (2) Intractable nausea and vomiting Vomiting type: unspecified Qualified Code(s): R11.2 - Nausea with vomiting, unspecified (3) Hypertension Hypertension type: unspecified Qualified Code(s): I10 - Essential (primary) hypertension (4) Constipation Constipation type: unspecified constipation type Qualified Code(s): K59.00 - Constipation, unspecified
[2018-11-05] MEDS ORDERED: CARBOHYDRATES FOR HYPOGLYCEMIA PO PRN (20:02)
[2018-11-05] MEDS ORDERED: GLUCOSE 10 TABS/TUBE PO PRN (20:02)
[2018-11-05] MEDS ORDERED: GLUCOSE 40% GEL 15 GM TUBE PO PRN (20:02)
[2018-11-05] MEDS ORDERED: LABETALOL HCL IV 5 MG/ML 20ML IV PRN (20:02)
[2018-11-05] MEDS ORDERED: PROMETHAZINE HCL 6.25 MG in SODIUM CHLORIDE 0.9% 50 ML IV PRN (20:02)
[2018-11-05] MEDS ORDERED: ACETAMINOPHEN 325 MG TAB PO PRN (20:02)
[2018-11-05] MEDS ORDERED: GLUCAGON FOR INJ 1 MG VIAL SQ PRN (20:02)
[2018-11-05] MEDS: DEXTROSE 50% 50 ML SYRINGE IV PRN (20:10)
[2018-11-05] MEDS ORDERED: D5NSS + 20MEQ KCL 20 MEQ/1,000 ML BAG IV SCH (20:15)
[2018-11-05] MEDS ORDERED: PHARMACY GLYCEMIC MGMT CONSULT PRN (20:30)
[2018-11-05] MEDS ORDERED: CALCIUM ACETATE 667 MG CAP PO SCH (21:00)
[2018-11-05] MEDS ORDERED: DOXAZosin MESYLATE TAB 2 MG TAB PO SCH (21:00)
[2018-11-05] MEDS ORDERED: ATORVASTATIN 40 MG TAB PO SCH (21:00)
[2018-11-05] MEDS: DOCUSATE SODIUM 100 MG CAP PO SCH (21:16)
--- NOTE | 2018-11-05 21:17 | Pharmacy Report ---
PHA: Glycemic Control AP - Date of Service November 05, 2018 - Assessment & Plan Laboratory Tests 11/05/18 11/05/18 14:50 15:39 Glucose 67 L POC Glucose 99 Start IV Insulin Infusion when BSG >180mg/dL Stress Level = Moderate Goal BS-180mg/dL, NO Initial BOLUS. Type I DM, insulin on hold for recurrent hypoglycemia. Glycemic Service to reassess 3/17 AM and consider alternative regimen? Pharmacy Glycemic Control Consult Patient Pharmacy will continue to monitor patient daily and write orders per [facility] inpatient glycemic control protocol. Thanks. * Please note that the plan above was derived based on current level of insulin resistance and hospital stress. These recommendations are appropriate for inpatient admission only. Plan of care upon discharge will need to be reassessed to avoid potential outpatient hypo/hyperglycemia.
[2018-11-05] MEDS: METOCLOPRAMIDE HCL INJ 5 MG/ML 2 ML VIAL IV SCH (21:19)
[2018-11-05] MEDS: CARVEDILOL 12.5 MG TAB PO SCH (22:16)
[2018-11-05] MEDS: HEPARIN SOD 5,000 UNIT/0.5 ML VIAL SQ SCH (22:18)
[2018-11-05] MEDS ORDERED: INSULIN REGULAR 250 UNITS in SODIUM CHLORIDE 0.9% 247.5 ML IV SCH (22:30)
[2018-11-05 23:03] VITALS: O2SAT 97
[2018-11-06] MEDS: DEXTROSE 50% 50 ML SYRINGE IV PRN (04:26)
[2018-11-06 04:45] LABS: Appearance Urine Clear (Clear); Bacteria Urine Automated Negative (Negative); Bilirubin Urine Negative (Negative); Blood Urine Trace (Negative); Color Urine Yellow; Epithelial Cell Urine Auto >30 /lpf (0-5); Glucose Urine UA 2+ (Negative); Ketones Urine Negative (Negative); Leukocyte Esterase Urine Negative (Negative); Nitrite Urine Negative (Negative); RBC Urine Automated 0-4 /hpf (0-4); Urobilinogen Urine Negative (Negative); pH Urine 7.5 (4.5-7.5)
[2018-11-06 05:04] LABS: Protein Urine 4+ (Negative)
[2018-11-06 05:13] LABS: Sperm Urine Present (None Prsent)
[2018-11-06 05:14] LABS: Cast Urine Automated 0 /lpf (0-5)
[2018-11-06] MEDS: HEPARIN SOD 5,000 UNIT/0.5 ML VIAL SQ SCH ×2 (05:16→12:26)
[2018-11-06 07:11] LABS: Hematocrit (blood only) 25.8 % (42-52); Hemoglobin 8.6 g/dL (14.0-18.0); Mean Corpuscular Hgb Conc 33.3 g/dL (32-36); Mean Corpuscular Volume 87.8 fL (80-100); Mean Platelet Volume 9.6 fL (7.4-10.4); Platelet Count 218 K/uL (130-400); RDW Standard Deviation 44.8 fL (36.4-46.3); Red Blood Count 2.94 M/uL (4.7-6.1); White Blood Count 3.67 K/uL (4.8-10.8)
--- NOTE | 2018-11-06 07:35 | XRay Report ---
XR KUB CLINICAL HISTORY: constipation f/u COMPARISON STUDY: 11/05/2018 FINDINGS: There is no pathologic bowel dilatation. There is decreasing stool within the colon. Pelvic basin calcifications remain unchanged and likely represent phleboliths. IMPRESSION: No evidence of pathologic bowel dilatation. Electronically signed by: Edson Sheffield M.D. 11/06/2018 7:34 AM
[2018-11-06 07:39] LABS: BUN Creatinine Ratio 7.1 (10-20); Calcium 7.6 mg/dl (8.5-10.1); Creatinine Clr Calc Pharmacy 32.5 ml/min; Est GFR (African American) 26.7; Potassium 3.6 mmol/L (3.5-5.1)
[2018-11-06] MEDS: CALCIUM ACETATE 667 MG CAP PO SCH ×2 (07:54→11:21)
[2018-11-06] MEDS: CARVEDILOL 12.5 MG TAB PO SCH (07:55)
[2018-11-06] MEDS: METOCLOPRAMIDE HCL INJ 5 MG/ML 2 ML VIAL IV SCH ×2 (07:57→12:22)
[2018-11-06] MEDS: DOCUSATE SODIUM 100 MG CAP PO SCH (08:27)
[2018-11-06] MEDS ORDERED: INSULIN GLARGINE SOLOSTAR 100 UNITS/ML 3 ML PEN SC STA (08:53)
[2018-11-06] MEDS ORDERED: AMLODIPINE BESYLATE 5 MG TAB PO SCH (09:00)
[2018-11-06] MEDS ORDERED: POLYETHYLENE (MIRALAX) 17 GM PACK PO SCH (09:00)
[2018-11-06] MEDS ORDERED: INSULIN ASPART 100 UNITS/ML 3 ML PEN SC SCH ×2 (09:00→11:30)
[2018-11-06] MEDS ORDERED: CLOPIDOGREL BISULFATE 75 MG TAB PO SCH (09:00)
[2018-11-06] MEDS ORDERED: CHOLECALCIFEROL 1,000 UNITS TAB PO SCH (09:00)
[2018-11-06] MEDS ORDERED: TORSEMIDE 20 MG TAB PO SCH (09:00)
[2018-11-06 11:19] VITALS: BP 166/93; PULSE 74; TEMP 97.9
--- NOTE | 2018-11-06 13:18 | Hospitalist Progress Note ---
Date of Service November 06, 2018 Assessment & Plan (1) Intractable nausea and vomiting: (2) Hypoglycemia associated with diabetes: Patient is a 33 yr male with H/O Type I DM, diabetic nephropathy, retinopathy, end-stage renal disease on HD, HTN, history of TIA, anemia of chronic disease, Charcot arthropathy, fatty liver who presents to [facility] secondary to persistent hypoglycemia that developed during hemodialysis today. Type I DM Hypoglycemia likely due to meds States His Insulin Pump has not been working since 3 weeks and is currently using SQ meds Has been having hypoglycemic episodes prior to admission Follows with a Pharmacist who adjusts his Insulin dosing Patient informs that his Lantus was recently decreased from 24 to 20 units Last A1C:8.9 BGs improved with IV fluids Appreciate glycemic pharmacist recommendations Decrease Lantus to 15 units QAM, continue ISS Off Note: "Patient likely not follows instructions" Nausea and Vomiting: ABD X ray: No active disease in the chest. Nonobstructed abdominal bowel gas pattern noting moderate constipation. A right internal jugular central venous infusion port is new from previous. Received IV Reglan Antiemetics PRN Nausea/vomiting resolved KUB:No evidence of pathologic bowel dilatation. (3) Hypertension: Slightly elevated Continue Coreg, amlodipine, torsemide Labetelol PRN (4) Hypokalemia: Likely due to GI loses Potassium supplemented Resolved (5) Constipation: Continue bowel regimen (6) Diabetes mellitus type 1 with complications: Management as above (7) ESRD (end stage renal disease): Hemodialysis Wednesday and Saturdays (8) Anemia in chronic kidney disease (CKD): Stable Monitor (9) TIA (transient ischemic attack): H/O TIA continue plavix, statin (10) DVT prophylaxis: Heparin SQ Disposition: DC to home today Subjective Patient is seen and examined at bedside Doing much better today Nausea/Vomiting resolved Denies chest pain, SOB, dizziness, abd pain Offers no other complaints Physical Exam 2 Vital Signs (Past 24 Hours): Last Vital Signs Temp 36.6 C 11/06/18 11:18 Pulse 74 11/06/18 11:18 Resp 16 11/06/18 11:18 BP 166/93 H 11/06/18 11:18 Pulse Ox 97 11/06/18 11:18 Physical Exam: Physical Exam: Vitals signs as noted above General Appearance:Moderately built and nourished, no apparent distress Head: normocephalic, Atraumatic Eyes: normal inspection, EOMI Neck: supple, Trachea midline Respiratory/Chest: Normal breath sounds, CTA Cardiovascular: S1, S2, No murmur Abdomen/GI:Soft, Non tender, Bowel sounds present Extremities/Musculoskelatal:normal inspection, Trace B/L LE edema Neurologic/Psych:AAOX3, grossly no focal neurological deficits Skin: normal color, warm Results & Data Laboratory Results Short CBC 11/05/18 11/06/18 Range/Units 15:39 06:39 WBC 3.58 L 3.67 L (4.8-10.8) K/uL Hgb 9.6 L 8.6 L (14.0-18.0) g/dL Hct 27.7 L 25.8 L (42-52) % Plt Count 229 218 (130-400) K/uL BMP 11/05/18 11/06/18 15:39 06:39 Sodium 131 L 137 Potassium 3.2 L 3.6 Chloride 97 L 104 Carbon Dioxide 31 28 BUN 19 H 23 H Creatinine 2.14 H 3.31 H D Glucose 67 L 120 H Calcium 7.9 L 7.6 L Liver Function 11/05/18 Range/Units 15:39 Total Bilirubin 0.3 (0.2-1) mg/dl AST 11 L (15-37) U/L ALT 17 (12-78) U/L Alkaline Phosphatase 116 (45-117) U/L Albumin 2.3 L (3.4-5.0) gm/dl Urine 11/06/18 Range/Units 04:21 Urine Color Yellow Urine Appearance Clear (Clear) Urine pH 7.5 (4.5-7.5) Ur Specific [place] 1.010 (1.000-1.030) Urine Protein 4+ H (Negative) Urine Glucose (UA) 2+ H (Negative) (1) Intractable nausea and vomiting Vomiting type: unspecified Qualified Code(s): R11.2 - Nausea with vomiting, unspecified (2) Hypertension Hypertension type: unspecified Qualified Code(s): I10 - Essential (primary) hypertension (3) Constipation Constipation type: unspecified constipation type Qualified Code(s): K59.00 - Constipation, unspecified (4) Anemia in chronic kidney disease (CKD) Chronic kidney disease stage: stage 4 (severe) Qualified Code(s): N18.4 - Chronic kidney disease, stage 4 (severe); D63.1 - Anemia in chronic kidney disease
--- NOTE | 2018-11-06 13:39 | Pharmacy Report ---
Pharmacy Glycemic Short Note 2 - Date of Service November 06, 2018 - Glycemic Short BSG Results (Last 24 hours): 11/05/18 11/05/18 11/05/18 14:50 15:39 17:01 Glucose 67 L POC Glucose 99 72 11/05/18 11/05/18 11/05/18 19:02 19:51 20:27 Glucose POC Glucose 73 68 L* 118 H 11/05/18 11/06/18 11/06/18 22:12 00:01 01:01 Glucose POC Glucose 202 H 202 H 167 H 11/06/18 11/06/18 11/06/18 02:02 03:04 03:34 Glucose POC Glucose 184 H 115 H 98 11/06/18 11/06/18 11/06/18 03:48 04:17 04:46 Glucose POC Glucose 108 H 81 172 H 11/06/18 11/06/18 11/06/18 05:59 06:31 06:39 Glucose 120 H POC Glucose 130 H 125 H 11/06/18 11/06/18 11/06/18 07:01 07:33 08:32 Glucose POC Glucose 118 H 118 H 193 H 11/06/18 11/06/18 09:30 11:13 Glucose POC Glucose 151 H 105 H ASSESSMENT: * I did meet with Mr. Hicks personally this afternoon. He was admitted overnight for intractable vomiting that occurred during his dialysis session. He had some severe lows PROVIDER EDUCATION SPECIALIST. He was subsequently placed on an insulin infusion to help determine his insulin requirements. * His insulin pump is currently broken and is being managed via basal/bolus. 20u nits of lantus QAM, novolog CF:20, CR:8 PLAN FOR DISCHARGE: * He received 10 units of lantus this AM and looks good at lunch. I would recommend 15 units of lantus QAM (STARTING 11/07/18) until he sees his outpt pharmacist who is managing his insulin doses. * Continue his correctional novolog with a CF of 20 and CR of 8. Use a goal range of 140-180mg/dL * Further titration per outpt pharmacist * Upon leaving his room Mr Hicks stated "I plan on doing what I want with my insulin doses".
--- NOTE | 2018-11-06 13:52 | Discharge Summary ---
Date of Service November 06, 2018 Admission HPI Per Admitting Provider This is a 33-year-old male who has significant past medical history of T1 DM, diabetic nephropathy, retinopathy, end-stage renal disease on HD, HTN, history of TIA, anemia of chronic disease, Charcot arthropathy, fatty liver who presents to [facility] secondary to persistent hypoglycemia that developed during hemodialysis today. Patient was in his usual state of health until he developed nausea and vomiting at HD. Blood glucose was noted to be in 60s. He had persistent nausea and emesis approximately 45. Despite amp of D50 x2 hypoglycemia persisted. Due to continued ill feeling and persistent hypoglycemia he was brought via EMS to [facility] ED. He received dextrose 25 and eventual D5 water at 80 cc/h to maintain euglycemia. After Phenergan administration his nausea has improved and he has not had any further emesis but continues to feel poorly. He denies any recent illness, fever, chills, sweats, lightheadedness, dizziness, syncope, chest pain, shortness breath, cough, abdominal pain, diarrhea, change in bowel habits. He still produces minimal urine and denies dysuria, increased frequency or urgency with urination, hematuria. Up until today appetite has been okay. He is currently not using insulin pump and has been using basal bolus administration. He states this morning he took Lantus 24 units along with a NovoLog sliding scale, unsure of amount. His blood sugar this morning was in 200s which is normal for him. He states his last A1c was in the nines. He also presented to ED on 11/03 for similar symptoms and hypoglycemia. His glycemic pharmacist through [facility] spoke with patient on 11/04/18 and it was recommended to decrease his basal Lantus to 20 units daily and to take a snack/meal with him during dialysis. Further his NovoLog correction was 1 unit per 8 carbs plus a correction factor of 1:2 over 140 Admission Exam Per Admitting Provider Gen: Thin, ill-appearing, male, pale NAD, sitting up in bed, pleasant, conversing easily Head: Normocephalic, Atraumatic Eyes: Sclera normal, no conjunctival injection, PERRLA, EOMI ENT: Gross hearing intact, normal pharynx, mucous membranes moist Neck: supple, no adenopathy, No JVD, no bruit, Resp: Clear to auscultation b/l, no wheeze, rales, rhonchi. Normal insp/exp effort, no accessory muscle use CV: Regular rate, regular rhythm, no murmur, rub, gallop, or ectopy, right anterior chest wall Vas-Cath in place Abd: +BS x 4, soft, nontender, nondistended Musculoskeletal: moves extremities active rom x 4, strength intact, good branch specialist strength Extremities: Trace edema bilaterally Skin: warm, moist, no rash, negative turgor, cap refill < 2sec Neuro: Alert and oriented x 3, speech normal, good mood/affect, cran nerve 2-12 intact grossly : deferred Principal Diagnosis Discharge Information Discharge Diagnosis Hypoglycemia Nausea and Vomiting ESRD Discharge Goals Decrease discomfort,Improve disease control, Improve function Discharge Activity Limitations Resume your previous activity Discharge Data Allergies Allergy/AdvReac Type Severity Reaction Status Date / Time No Known Allergies Allergy Verified 11/03/18 19:29 Consultations 11/05/18 17:05 ED Decision to Admit Stat Procedures Performed ABD X ray: 1. No active disease in the chest. 2. Nonobstructed abdominal bowel gas pattern noting moderate constipation. 3. A right internal jugular central venous infusion port is new from previous. Hospital Course (1) Intractable nausea and vomiting: (2) Hypoglycemia associated with diabetes: Patient is a 33 yr male with H/O Type I DM, diabetic nephropathy, retinopathy, end-stage renal disease on HD, HTN, history of TIA, anemia of chronic disease, Charcot arthropathy, fatty liver who presents to [facility] secondary to persistent hypoglycemia that developed during hemodialysis today. Type I DM Hypoglycemia likely due to meds States His Insulin Pump has not been working since 3 weeks and is currently using SQ meds Has been having hypoglycemic episodes prior to admission Follows with a Pharmacist who adjusts his Insulin dosing Patient informs that his Lantus was recently decreased from 24 to 20 units Last A1C:8.9 BGs improved with IV fluids Appreciate glycemic pharmacist recommendations Decrease Lantus to 15 units QAM, continue ISS Off Note: "Patient likely not follows instructions" Nausea and Vomiting: ABD X ray: No active disease in the chest. Nonobstructed abdominal bowel gas pattern noting moderate constipation. A right internal jugular central venous infusion port is new from previous. Received IV Reglan Antiemetics PRN Nausea/vomiting resolved KUB:No evidence of pathologic bowel dilatation. (3) Hypertension: Slightly elevated Continue Coreg, amlodipine, torsemide Labetelol PRN (4) Hypokalemia: Likely due to GI loses Potassium supplemented Resolved (5) Constipation: Continue bowel regimen (6) Diabetes mellitus type 1 with complications: Management as above (7) ESRD (end stage renal disease): Hemodialysis Wednesday and Saturdays (8) Anemia in chronic kidney disease (CKD): Stable Monitor (9) TIA (transient ischemic attack): H/O TIA continue plavix, statin (10) DVT prophylaxis: Heparin SQ Disposition: DC to home today Total Time Total Time Spent Total Time Spent (In Minutes): 25 minutes Total Time Includes: Examination of the Patient, Discharge Planning, Medication Reconciliation and Other Discharge Plan Discharge Items Patient Disposition: Home - Self-Care Reason For Visit: PERSISTENT HYPOGLYCEMIA Discharge Diagnosis: Hypoglycemia Nausea and Vomiting ESRD Discharge Goals: Decrease discomfort, Improve disease control and Improve function Activity: Resume your previous activity Exercise/Sports: Gradually increase as tolerated Non-emergency contact: Primary Care Provider and Specialist Call non-emergency contact if: you have any medication questions, your symptoms worsen, your pain is not controlled, your pain is worsening, your pain is unusual for you, your pain is concerning for you and you have a fever Follow-up/Referrals: Ciro Singh MD [Primary Care Provider] - Diet: Carb Count or DM1 and Dialysis Renal Addtl Provider Instructions: Follow up with your PCP in 1 week as advised Follow up with your [place] Administrator/glycemic pharmacist in 1 week for management of your Insulin therapy Medication Changes: Decreased your Lantus to 15 units daily Seek immediate medical attention if your symptoms reoccur or worsen Prescriptions: New polyethylene glycol 3350 [Miralax] 17 gram Powder In Packet 17 g PO DAILY PRN (Reason: Constipation) 15 Days Qty: 15 RF: 0 docusate sodium 100 mg Capsule 100 mg PO BID 15 Days Qty: 30 RF: 0 Continued atorvastatin 40 mg tablet 40 mg PO HS RF: 0 torsemide 20 mg tablet 40 mg PO QAM RF: 0 clopidogrel 75 mg tablet 75 mg PO QAM RF: 0 calcium acetate 667 mg Tablet 1,334 mg PO TIDM RF: 0 amlodipine 10 mg tablet 10 mg PO QAM RF: 0 Novolog U-100 Insulin aspart 100 unit/mL Solution SUBCUT UD RF: 0 cholecalciferol (vitamin D3) [Vitamin D3] 5,000 unit Tablet 5,000 unit PO QAM RF: 0 doxazosin 2 mg tablet 2 mg PO HS 30 Days Qty: 30 RF: 1 carvedilol [Coreg] 12.5 mg tablet 12.5 mg PO BID RF: 0 calcium acetate 667 mg capsule 667 mg PO UD RF: 0 Changed Lantus U-100 Insulin 100 unit/mL Solution 15 unit SUBCUT DAILY Qty: 0 RF: 0 Stand-Alone Forms: [facility] Discharge Orders: Discharge Order (Routine); Ordered 11/06/18 Ordered By: Richard Ndiaye Admission Data Admit Date/Time: 11/05/18 17:42 Attending Provider: Richard Ndiaye Admit Provider: Richard Ndiaye Primary Care Provider: Ciro Singh Other Providers: Richard Ndiaye Service: Telemetry Other Interventions: Discharge Summary Assessment (RN) Last Done: 11/06/18 13:54 Pending Studies at Discharge: Yes (Hb A1C) DC Date/Time DO NOT enter until pt leaves facility: 11/06/18 14:05
[2018-11-07 06:07] LABS: Estimated Average Glucose 229 mg/dl; Hemoglobin A1C 9.6 % (4.5-5.6)
== END 2018-11-06 14:05 | disposition home or self-care (01) ==
LOC: 2S 14:47 → ED 14:47 → 2S 20:08

== ENCOUNTER 2018-12-09 10:10 | Inpatient (IN) ==
[2018-12-09] MEDS ORDERED: ACETAMINOPHEN 1,000 MG/100 ML VIAL IV STA (10:40)
[2018-12-09] MEDS ORDERED: ONDANSETRON INJ 2 MG/ML 2 ML VIAL IV STA (10:40)
[2018-12-09 10:52] LABS: Basophils # (auto) 0.07 K/uL (0-0.2); Basophils % (auto) 1.1 %; Eosinophils # (auto) 0.11 K/uL (0-0.5); Eosinophils % (auto) 1.8 %; Hematocrit (blood only) 31.8 % (42-52); Hemoglobin 10.9 g/dL (14.0-18.0); Immature Granulocytes # (auto) 0.01 K/uL (0.00-0.02); Immature Granulocytes % (auto) 0.2 %; Lymphocytes # (auto) 1.51 K/uL (1.2-3.4); Lymphocytes % (auto) 24.3 %; Mean Corpuscular Hgb Conc 34.3 g/dL (32-36); Mean Corpuscular Volume 86.2 fL (80-100); Monocytes # (auto) 0.84 K/uL (0.11-0.59); Monocytes % (auto) 13.5 %; Neutrophils # (auto) 3.67 K/uL (1.4-6.5); Neutrophils % (auto) 59.1 %; Platelet Count 225 K/uL (130-400); RDW Coefficient of Variation 13.5 % (11.5-14.5); RDW Standard Deviation 42.4 fL (36.4-46.3); Red Blood Count 3.69 M/uL (4.7-6.1); White Blood Count 6.21 K/uL (4.8-10.8)
[2018-12-09 11:24] LABS: Alanine Aminotransferase 18 U/L (12-78); Albumin Globulin Ratio 0.6 (0.9-2); Albumin Level 2.2 gm/dl (3.4-5.0); Alkaline Phosphatase 110 U/L (45-117); Aspartate Aminotransferase 12 U/L (15-37); BUN Creatinine Ratio 7.2 (10-20); Bilirubin,Total 0.1 mg/dl (0.2-1); Blood Urea Nitrogen 38 mg/dl (7-18); Calcium 8.3 mg/dl (8.5-10.1); Carbon Dioxide 33 mmol/L (21-32); Chloride 98 mmol/L (98-107); Creatinine Clr Calc Pharmacy 19.9 ml/min; Est GFR (African American) 15.2; Est GFR (Non-African American) 13.1; Glucose 93 mg/dl (70-99); Magnesium 2.5 mg/dl (1.8-2.4); Potassium 3.6 mmol/L (3.5-5.1); Sodium 136 mmol/L (136-145); Total Protein 6.2 gm/dl (6.4-8.2); Troponin I < 0.015 ng/ml (0-0.045)
--- NOTE | 2018-12-09 11:31 | XRay Report ---
SINGLE VIEW CHEST CLINICAL HISTORY: Generalized weakness. FINDINGS: An AP, portable, upright chest radiograph is compared to study dated 11/05/2018. A right sin uses and intravenous catheter is unchanged from previous. The cardiac silhouette is top normal for pr ojection. The mediastinal contour is within normal limits. The lungs and pleural spaces are clear. No pneumothorax is seen. The bony thorax is grossly intact. IMPRESSION: No active disease in the chest. Electronically signed by: Alvarez Juan M.D. 12/09/2018 11:30 AM
[2018-12-09 11:38] LABS: Appearance Urine Clear (Clear); Bacteria Urine Automated Negative (Negative); Bilirubin Urine Negative (Negative); Blood Urine Trace (Negative); Color Urine Yellow; Epithelial Cell Urine Auto >30 /lpf (0-5); Glucose Urine UA 3+ (Negative); Ketones Urine Negative (Negative); Leukocyte Esterase Urine Negative (Negative); Nitrite Urine Negative (Negative); Specific Gravity Urine 1.022 (1.000-1.030); Urobilinogen Urine Negative (Negative)
--- NOTE | 2018-12-09 11:40 | CT Scan Report ---
CT OF THE HEAD WITHOUT CONTRAST CLINICAL HISTORY: headache, aphasia, DM, ESRD COMPARISON STUDY: Head CT November 20, 2018. CT DOSE: 638.56 mGycm TECHNIQUE: Helical axial images of the head were obtained without IV contrast. Automated exposure con trol was utilized for the study. A dose lowering technique was utilized adhering to the principles o f ALARA. FINDINGS: No acute intracranial hemorrhage, midline shift or mass effect is present. Ventricular syst em is stable. Basilar cisterns are patent. There are no extra-axial collections. Gonzalez-white different iation is maintained. There are no findings to suggest acute dural sinus thrombosis or acute territor ial infarct. There are no significant calvarial abnormalities. Visualized portions of the sinuses and mastoid air cells are clear. IMPRESSION: No acute intracranial findings. Electronically signed by: Sharan Bishop M.D. 12/09/2018 11:39 AM
[2018-12-09 12:02] LABS: Protein Urine 4+ (Negative)
[2018-12-09 12:03] LABS: Sperm Urine Present (None Prsent)
--- NOTE | 2018-12-09 12:10 | Emergency Department Note ---
Entered by Sarah Storm acting as a scribe for Bam Gaxiola MD ED Provider Note CHIEF COMPLAINT: TIA symptoms HISTORY OF PRESENT ILLNESS: The patient is a 33 year old male who presents to the Emergency Room with complaints of TIA symptoms occurring at 0900 this morning. The patient states that he was unable to think or speech straight. The patient states that he was at work when he had his symptoms and states that he was not doing anything stressful. The patient states that while he was writing at work he noticed that he was missing letters. The patient also reports that his right arm went numb. He states that his worse symptoms lasted for 5-10 minutes. The patient states that he then developed a headache afterward which he currently rates at a 5/10. He reports that he vomited on arrival. The patient states that he has a fistula for dialysis and states that he last had it yesterday. He states that he usually gets a migraine after going to dialysis. The patient states that he had an episode similar to this in the past but states that he ignored it. He reports that he saw his PCP a day later for an appointment and was checked out then. The patient states that he did not eat anything unusual and states that he has not been around anyone sick. He reports that he did take his blood pressure medication this morning. The patient states that he is diabetic and reports that his sugars usually run high. He denies hitting his head or any recent trauma. Pt denies LOC, fevers, chills, diaphoresis, visual changes, neck pain, chest pain, breathing difficulties, abdominal pain, back pain, melena, hematochezia, lymphadenopathy, rash, or other complaints. REVIEW OF SYSTEMS: See HPI for pertinent positives and negatives. A total of ten systems were reviewed and were otherwise negative. PMHx/PSHx: TIA, CKD, diabetes, GERD, anemia, HTN, DVT SOCIAL HISTORY: Patient lives at home. PHYSICAL EXAM: GENERAL: Awake, alert, well appearing, no distress HENT: Normocephalic, atraumatic. TM's normal. Oropharynx unremarkable. EYES: PERRL. EOMI. Normal conjunctiva. Sclera non-icteric. NECK: Supple. No nuchal rigidity. FROM. No bruit. RESPIRATORY: Breath sounds equal. No wheezes. No rhonchi. Normal respiratory effort. CARDIAC: Normal rate. Regular rhythm. No murmurs. No rubs. No JVD. GI: Soft, non distended. No tenderness to palpation. No rebound or guarding. No masses. RECTAL: Deferred. MUSCULOSKELETAL: Unremarkable. No edema. No discoloration. Gross motor strength symmetric. Fistula in the right upper arm with palpable thrill. NEURO: Cranial nerves 2-12 grossly intact. Normal sensorium. No sensory or motor deficits noted. Speech normal. No pronator drift. Normal rapid alternating movements. Normal heel to iniguez. SKIN: No rash or jaundice noted. LYMPH: No adenopathy. EMERGENCY DEPARTMENT COURSE: 1034: The patient was evaluated in room A9B, and a complete history and physical examination were performed. 1154: I updated the patient who verbalized agreement and understanding of the treatment plan. 1229: I discussed the patient's case with Amina Snow, admitting to Dr. Young, who will evaluate the patient for further management. MEDICAL DECISION MAKING: Triage Nursing notes reviewed. The patient's presentation and history were concerning for expressive aphasia and a history of significant diabetes. Etiologies such as TIA, CVA, complex migraine, hypertensive emergency, metabolic, infection, hypo/hyperglycemia, electrolyte abnormalities, cardiac sources, intracerebral event, toxicologic, neurologic, as well as others were entertained. The patient was examined. His symptoms had resolved. He was very hypertensive when he came in although he did vomit. He was given Zofran and IV Tylenol. On reassessment he was feeling better. He has a significant history of diabetes with significant complications. He had a nonfocal examination. He does have a history of migraine-like headaches. His CT imaging was performed and this was negative. Blood work was unremarkable except for his end-stage renal disease and mild anemia. Because of the patient's history of the hypertension and his diabetic complications further evaluation and management in the hospital is most appropriate to rule out a true vascular event. A complex migraine could be similar. I discussed this with the patient and family and they were in agreement. A consultation was made with the [facility] hospitalist service. The patient was evaluated in the ER for further management. IMPRESSION: Expressive aphasia, Hypertension, and history of diabetes PLAN: Admitted The scribe's documentation has been prepared under my direction and personally reviewed by me in its entirety. I confirm that the note above accurately reflects all work, treatment, procedures, and medical decision making performed by me. 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) Anemia (Chronic) Hypertension (Chronic) CKD (chronic kidney disease), stage III (Resolved) Hyperglycemia (Resolved) Neurological symptoms (Resolved) Surgical History History of esophagogastroduodenoscopy (EGD) AV fistula (Chronic) Hx of eye surgery Family History Mother Hypertension Grandfather (Maternal) Diabetes Grandmother (Maternal) Diabetes Grandmother (Paternal) Diabetes Other Heart disease Social History Preferred Language: Divehi Communication Ability: Effective Visual Impairment: Limited Elect Equip Maint Eng Required: No Beliefs That Will Affect Care: None marital status: single Current Living Situation: Alone current occupational status: employed Other Information That Helps Us Care for You: No Feels Safe at Home: Yes Safety Concerns: Feels Safe At This Time Smoking Status: Unknown if ever smoked Hx Alcohol Use: No Hx Substance Use: No Results & Data Vital Signs Vital Signs - 24 hr 12/09/18 10:14 12/09/18 10:40 12/09/18 12:00 Temperature Temperature Source Sepsis Recent Fever Within 48 Hours No Sepsis New/Unexplained Change in Mental Status No Sepsis Action Taken by Nursing No Action Required Pulse Rate 115 H Pulse Rate [Right Finger] 81 76 Pulse Rhythm [Right Finger] Regular Pulse Strength [Right Finger] Normal Respiratory Rate 18 20 18 Respiratory Effort / Characteristics Non-Labored Non-Labored Respiratory Depth Normal Normal Respiratory Pattern Regular Blood Pressure 248/137 H Blood Pressure [Left Arm] 203/114 H 119/113 H Blood Pressure Mean 174 Blood Pressure Mean [Left Arm] 143 115 Blood Pressure Position Sitting Blood Pressure Position [Left Arm] Sitting Sitting Pulse Oximetry 99 98 96 Oxygen Delivery Method Room Air Room Air 12/09/18 14:00 12/09/18 16:00 Temperature 36.8 C Temperature Source Oral Sepsis Recent Fever Within 48 Hours Sepsis New/Unexplained Change in Mental Status Sepsis Action Taken by Nursing Pulse Rate Pulse Rate [Right Finger] 76 93 H Pulse Rhythm [Right Finger] Regular Pulse Strength [Right Finger] Normal Respiratory Rate 18 18 Respiratory Effort / Characteristics Non-Labored Spontaneous Respiratory Depth Normal Respiratory Pattern Regular Blood Pressure Blood Pressure [Left Arm] 200/115 H 189/101 H Blood Pressure Mean Blood Pressure Mean [Left Arm] 143 130 Blood Pressure Position Blood Pressure Position [Left Arm] Sitting Pulse Oximetry 99 98 Oxygen Delivery Method Room Air Home Medications Current Medication List: was personally reviewed by me Laboratory Data Attestation: I reviewed the patient's lab results. Result diagrams: 12/09/18 10:35 12/09/18 10:35 Lab Results 12/09/18 12/09/18 12/09/18 Range/Units 10:35 10:35 11:15 WBC 6.21 (4.8-10.8) K/uL RBC 3.69 L (4.7-6.1) M/uL Hgb 10.9 L (14.0-18.0) g/dL Hct 31.8 L (42-52) % MCV 86.2 (80-100) fL MCH 29.5 (25-34) pg MCHC 34.3 (32-36) g/dL RDW Std Deviation 42.4 (36.4-46.3) fL RDW Coeff of Ralph 13.5 (11.5-14.5) % Plt Count 225 (130-400) K/uL MPV 10.0 (7.4-10.4) fL Immature Gran % (Auto) 0.2 % Neut % (Auto) 59.1 % Lymph % (Auto) 24.3 % Pine % (Auto) 13.5 % Eos % (Auto) 1.8 % Baso % (Auto) 1.1 % Immature Gran # (Auto) 0.01 (0.00-0.02) K/uL Neut # (Auto) 3.67 (1.4-6.5) K/uL Lymph # (Auto) 1.51 (1.2-3.4) K/uL Pine # (Auto) 0.84 H (0.11-0.59) K/uL Eos # (Auto) 0.11 (0-0.5) K/uL Baso # (Auto) 0.07 (0-0.2) K/uL Sodium 136 (136-145) mmol/L Potassium 3.6 (3.5-5.1) mmol/L Chloride 98 (98-107) mmol/L Carbon Dioxide 33 H (21-32) mmol/L Anion Gap 5.0 (3-11) BUN 38 H (7-18) mg/dl Creatinine 5.27 H* (0.6-1.4) mg/dl Est Cr Clr Drug Dosing 19.9 ml/min Est GFR ( Amer) 15.2 Est GFR (Non-Af Amer) 13.1 BUN/Creatinine Ratio 7.2 L (10-20) Glucose 93 (70-99) mg/dl POC Glucose (70-99) Calcium 8.3 L (8.5-10.1) mg/dl Magnesium 2.5 H (1.8-2.4) mg/dl Total Bilirubin 0.1 L (0.2-1) mg/dl AST 12 L (15-37) U/L ALT 18 (12-78) U/L Alkaline Phosphatase 110 (45-117) U/L Troponin I < 0.015 (0-0.045) ng/ml Total Protein 6.2 L (6.4-8.2) gm/dl Albumin 2.2 L (3.4-5.0) gm/dl Globulin 4.0 (2.5-4.0) gm/dl Albumin/Globulin Ratio 0.6 L (0.9-2) TSH 2.890 (0.300-4.500) uIu/ml Urine Color Yellow Urine Appearance Clear (Clear) Urine pH 8.0 H (4.5-7.5) Ur Specific [place] 1.022 (1.000-1.030) Urine Protein 4+ H (Negative) Urine Glucose (UA) 3+ H (Negative) Urine Ketones Negative (Negative) Urine Blood Trace H (Negative) Urine Nitrite Negative (Negative) Urine Bilirubin Negative (Negative) Urine Urobilinogen Negative (Negative) Ur Leukocyte Esterase Negative (Negative) Urine WBC (Auto) 1-5 (0-5) /hpf Urine RBC (Auto) 5-10 H (0-4) /hpf U Hyaline Cast (Auto) 1-5 (0-5) /lpf U Epithel Cells (Auto) >30 H (0-5) /lpf Urine Bacteria (Auto) Negative (Negative) Ur Renal Epithelial Cell Not Reportable Urine Sperm Present H (None Prsent) 12/09/18 Range/Units 15:34 WBC (4.8-10.8) K/uL RBC (4.7-6.1) M/uL Hgb (14.0-18.0) g/dL Hct (42-52) % MCV (80-100) fL MCH (25-34) pg MCHC (32-36) g/dL RDW Std Deviation (36.4-46.3) fL RDW Coeff of Ralph (11.5-14.5) % Plt Count (130-400) K/uL MPV (7.4-10.4) fL Immature Gran % (Auto) % Neut % (Auto) % Lymph % (Auto) % Pine % (Auto) % Eos % (Auto) % Baso % (Auto) % Immature Gran # (Auto) (0.00-0.02) K/uL Neut # (Auto) (1.4-6.5) K/uL Lymph # (Auto) (1.2-3.4) K/uL Pine # (Auto) (0.11-0.59) K/uL Eos # (Auto) (0-0.5) K/uL Baso # (Auto) (0-0.2) K/uL Sodium (136-145) mmol/L Potassium (3.5-5.1) mmol/L Chloride (98-107) mmol/L Carbon Dioxide (21-32) mmol/L Anion Gap (3-11) BUN (7-18) mg/dl Creatinine (0.6-1.4) mg/dl Est Cr Clr Drug Dosing ml/min Est GFR ( Amer) Est GFR (Non-Af Amer) BUN/Creatinine Ratio (10-20) Glucose (70-99) mg/dl POC Glucose 105 H (70-99) Calcium (8.5-10.1) mg/dl Magnesium (1.8-2.4) mg/dl Total Bilirubin (0.2-1) mg/dl AST (15-37) U/L ALT (12-78) U/L Alkaline Phosphatase (45-117) U/L Troponin I (0-0.045) ng/ml Total Protein (6.4-8.2) gm/dl Albumin (3.4-5.0) gm/dl Globulin (2.5-4.0) gm/dl Albumin/Globulin Ratio (0.9-2) TSH (0.300-4.500) uIu/ml Urine Color Urine Appearance (Clear) Urine pH (4.5-7.5) Ur Specific [place] (1.000-1.030) Urine Protein (Negative) Urine Glucose (UA) (Negative) Urine Ketones (Negative) Urine Blood (Negative) Urine Nitrite (Negative) Urine Bilirubin (Negative) Urine Urobilinogen (Negative) Ur Leukocyte Esterase (Negative) Urine WBC (Auto) (0-5) /hpf Urine RBC (Auto) (0-4) /hpf U Hyaline Cast (Auto) (0-5) /lpf U Epithel Cells (Auto) (0-5) /lpf Urine Bacteria (Auto) (Negative) Ur Renal Epithelial Cell Urine Sperm (None Prsent) Administered Medications Calcium Acetate (Phoslo) 2,001 mg PO TIDM [facility] Stop: 01/08/19 16:59 Last Admin: 12/09/18 17:23 Dose: 2,001 mg Documented by: [id number] Insulin Aspart (Novolog Flexpen) 0 units SC ACHS [facility] Stop: 01/08/19 16:29 Last Admin: 12/09/18 17:01 Dose: 5 units Documented by: [id number] Cosigned by: [id number] Discontinued Medications Hydralazine HCl (Hydralazine Hcl) 10 mg IV NOW STA Stop: 12/09/18 14:04 Last Admin: 12/09/18 16:17 Dose: Not Given Documented by: [id number] Hydralazine HCl (Hydralazine Hcl) Confirm Administered Dose 20 mg .ROUTE .STK- MED ONE Stop: 12/09/18 14:37 Last Admin: 12/09/18 14:44 Dose: 10 mg Documented by: [id number] Acetaminophen (Ofirmev) 1,000 mg in 100 mls @ 400 mls/hr IV NOW STA Stop: 12/09/18 10:54 Last Infusion: 12/09/18 11:45 Dose: 0 mls/hr Documented by: [id number] Admin: 12/09/18 11:23 Dose: 400 mls/hr Documented by: [id number] Ondansetron HCl (Zofran) 4 mg IV NOW STA Stop: 12/09/18 10:41 Last Admin: 12/09/18 11:23 Dose: 4 mg Documented by: [id number] Sumatriptan Succinate (Imitrex) 6 mg SQ NOW STA Stop: 12/09/18 14:13 Last Admin: 12/09/18 14:43 Dose: 6 mg Documented by: [id number] Imaging Data Radiologist's Impression: Radiology results as stated below per my review and the radiologist's interpretation: SINGLE VIEW CHEST CLINICAL HISTORY: Generalized weakness. FINDINGS: An AP, portable, upright chest radiograph is compared to study dated 11/05/2018. A right sinuses and intravenous catheter is unchanged from previous. The cardiac silhouette is top normal for projection. The mediastinal contour is within normal limits. The lungs and pleural spaces are clear. No pneumothorax is seen. The bony thorax is grossly intact. IMPRESSION: No active disease in the chest. Electronically signed by: Alvarez Juan M.D. 12/09/2018 11:[address] OF THE HEAD WITHOUT CONTRAST CLINICAL HISTORY: headache, aphasia, DM, ESRD COMPARISON STUDY: Head CT November 20, 2018. CT DOSE: 638.56 mGycm TECHNIQUE: Helical axial images of the head were obtained without IV contrast. Automated exposure control was utilized for the study. A dose lowering technique was utilized adhering to the principles of ALARA. FINDINGS: No acute intracranial hemorrhage, midline shift or mass effect is present. Ventricular system is stable. Basilar cisterns are patent. There are no extra-axial collections. Gonzalez-white differentiation is maintained. There are no findings to suggest acute dural sinus thrombosis or acute territorial infarct. There are no significant calvarial abnormalities. Visualized portions of the sinuses and mastoid air cells are clear. IMPRESSION: No acute intracranial findings. Electronically signed by: Sharan Bishop M.D. 12/09/2018 11:39 AM ECG Data Attestation: I personally reviewed and interpreted this ECG as follows: Indication: weakness Rate (beats per minute): 76 Rhythm: normal sinus Findings: + prolonged QT; no ST depression, no ST elevation and no acute ischemic change Blood Pressure Blood Pressure Findings: Elevated blood pressure Blood Pressure Disposition: further management by hospitalist Discharge Plan Visit Data *Final* Discharge Date/Time: 12/09/18 15:05 Chief Complaint: TIA Symptoms Stated Complaint: TIA, DR. REFERRED OVER ED Provider: Bam Gaxiola Discharge Problem: Expressive aphasia, Hypertension, History of diabetes mellitus Patient Disposition: Admitted As Inpatient Discharge Instructions Interventions: ED Discharge Assessment Last Done: 12/09/18 15:05 Discharge Problem: Hypertension Qualifiers: Hypertension type: unspecified Qualified Code(s): I10 - Essential (primary) hy pertension The scribe's documentation has been prepared under my direction and personally reviewed by me in its entirety. I confirm that the note above accurately reflects all work, treatment, procedures, and medical decision making performed by me.
[2018-12-09] MEDS ORDERED: HydrALAZINE HCL 20 MG/ML VIAL IV STA (14:03)
[2018-12-09] MEDS ORDERED: SUMAtriptan succinate 6 MG/0.5 ML VIAL SQ STA (14:12)
[2018-12-09] MEDS ORDERED: HydrALAZINE HCL 20 MG/ML VIAL ONE (14:36)
--- NOTE | 2018-12-09 15:11 | History & Physical Report ---
Date of Service December 09, 2018 Assessment & Plan (1) Expressive aphasia: (2) Headache: Pt is 33 y/o M with PMH DM I, ESRD on HD, HTN, retinopathy, h/o TIA, anemia of chronic disease, sure, arthropathy, presented to ER with complaint of speech difficulty. Reported at 9:00 AM today had word finding problems, using wrong words, trouble writing, trouble making change, fuzzy vision, right arm numbness that lasted approx 10-15 minutes. It was then followed by [facility] to left eye. Upon arrival to ER he had emesis x 1. P: 115 down to 76, R: 18, BP: 248/137, 203/114. No leukocytosis. No significant electrolyte abnormality. Glucose: 98. Negative troponin. TSH: 2.8. EKG: NSR Today CT head: no acute findings. 07/2018: Carotid Doppler with no evidence of stenosis 07/2018: MRI brain without contrast: No acute findings 11/23/18: MRI brain without contrast: Normal study -Tele to monitor for arrhythmias -EKG in am -tox screen pending -cbc, bmp in am -will update echo -continue statin and plavix -neurology consult (3) Hypertensive urgency: BP: 248/137, 203/114 while in ER Pt reports taking his BP at home and have been around 200/100 Pt thinks that he took his amlodipine this morning -hydralazine 10mg IV now -hydralazine 25mg po Q8H prn SBP >180 -continue amlodipine, carvedilol, torsemide -monitor BP (4) TIA (transient ischemic attack): H/O TIA -continue plavix, statin (5) Diabetes mellitus type 1 with complications: A1c: 8.6 on 09/27/18 Pt not currently on insulin pump and on lantus 17 units HS and novolog sliding scale -Lantus, novolog sliding scale -glycemic pharmacy consult, pt with hx hypoglycemia (6) End-stage renal disease (ESRD): On HD on wednesday, , wednesday schedule -nephrology consult for HD consideration tomorrow (7) Prolonged QT interval: Qtc: 508 -repeat EKG tomorrow morning -avoid Qt prolonging agents (8) Pericardial effusion without cardiac tamponade: Hx echo 09/29/18: EF: 60-65%, mild to moderate sized pericardial effusion without evidence of tamponade. Patient was seen by Dr. Velasquez for preop risk assessment prior to renal transplant consideration on 12/07/18. At that time patient was asymptomatic and repeat echo was scheduled for 01/2019 -echo to reassess for pericardial effusion (9) Anemia in ESRD (end-stage renal disease): Hgb: 10.9. At baseline -monitor cbc DVT Prophylaxis -SCDs and ambulate Follows with Dr Singh for routine care Pt was seen with Dr Young. See addendum History of Present Illness Chief Complaint: Neuro symptoms Primary Care Provider: Ciro Singh MD Pt is 33 y/o M with PMH DM I, ESRD on HD, HTN, retinopathy, h/o TIA, anemia of chronic disease, sure, arthropathy, presented to ER with complaint of speech difficulty. Patient states this morning his fasting blood sugar was 160. States he ate 2 pieces of toast and 2 eggs for breakfast. Patient states 9:00 this morning while he was at work he developed word finding problems. Also reports he was trying to say the word Silver and kept saying single. He states he thinks speech may have been garbled. He noticed missing letters and words when he was writing. 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 Also has some right arm numbness and "fuzzy" vision of bilateral eyes. Symptoms lasted approximately 10-15 minutes and then resolved. After that he started with headache to left eye. He states he did not take his blood sugar at the time of symptoms. Upon arrival to ER he had emesis x 1. Still makes a little urine, denies dysuria or hematuria. Pt with hx possible TIA admission [facility] in 07/2018 and was placed on plavix and atorvastatin. Patient with history of getting right sided headache after dialysis. Denies fever/chills, diaphoresis, diarrhea or constipation, dizziness, syncope, neck pain, CP, SOB, orthopnea, palpitations, cough, sore throat, choking, otalgia, rhinorrhea, abdominal pain, extremity edema, rashes. 07/2018: Carotid Doppler with no evidence of stenosis 07/2018: MRI brain without contrast: No acute findings 11/23/18: MRI brain without contrast: Normal study Allergies Allergy/AdvReac Type Severity Reaction Status Date / Time No Known Allergies Allergy Verified 12/09/18 10:31 Home Medications Home Medications Medication Instructions Recorded Confirmed Type Novolog U-100 Insulin aspart 0 unit SUBCUT UD 09/28/18 12/09/18 History amlodipine 10 mg PO QAM 09/28/18 12/09/18 History atorvastatin 40 mg PO HS 09/28/18 12/09/18 History calcium acetate 2,001 mg PO TIDM 09/28/18 12/09/18 History cholecalciferol (vitamin D3) 5,000 unit PO QAM 09/28/18 12/09/18 History [Vitamin D3] clopidogrel 75 mg PO QAM 09/28/18 12/09/18 History torsemide 40 mg PO QAM 09/28/18 12/09/18 History carvedilol [Coreg] 12.5 mg PO BID 11/03/18 12/09/18 History Lantus U-100 Insulin 17 unit SUBCUT PM 11/20/18 12/09/18 History acetaminophen [Tylenol Extra 1,000 mg PO Q6H PRN 11/20/18 12/09/18 History Strength] Past Med/Surg History Medical History Esophagitis ESRD (end stage renal disease) (Chronic) TIA (transient ischemic attack) (Chronic) Anemia in chronic kidney disease (CKD) (Chronic) Nephrotic syndrome due to diabetes mellitus (Chronic) DVT prophylaxis Fatty liver (Chronic) Charcot foot due to diabetes mellitus (Chronic) Nausea and vomiting (Chronic) Diabetic nephropathy (Chronic) Diabetic neuropathy (Chronic) Diabetic retinopathy (Chronic) 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) Anemia (Chronic) Hypertension (Chronic) CKD (chronic kidney disease), stage III (Resolved) Hyperglycemia (Resolved) Neurological symptoms (Resolved) Surgical History History of esophagogastroduodenoscopy (EGD) AV fistula (Chronic) Hx of eye surgery Family History Mother Hypertension Grandfather (Maternal) Diabetes Grandmother (Maternal) Diabetes Grandmother (Paternal) Diabetes Other Heart disease Social History Preferred Language: Polish Communication Ability: Effective Visual Impairment: Limited 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 Beliefs That Will Affect Care: None marital status: single Current Living Situation: Alone current occupational status: employed Other Information That Helps Us Care for You: No Feels Safe at Home: Yes Safety Concerns: Feels Safe At This Time Smoking Status: Unknown if ever smoked Hx Alcohol Use: No Hx Substance Use: No Review of Systems Review of Systems: All systems reviewed & are unremarkable except as noted in HPI & below Physical Exam Physical Exam: General: no acute distress, WDWN, chronic ill appearing, non- toxic appearance Head: normocephalic, atraumatic Eyes: PERRL, EOM's intact, conjunctiva non-injected, anicteric ENT: normal inspection external ears, nose, mucous membranes moist Neck: supple, trachea midline, non-tender, ROM intact Lungs: clear, no respiratory distress, no wheezing/rhonchi/rales CV: RRR, no murmur, no pretibial edema Abd: normal BS, soft, non-tender Ext: no cyanosis, no calf tenderness, strength 5/5 bilateral upper and lower extremities Neuro: A&O x 3, no focal deficits noted, no facial drooping, normal speech, tongue midline, no pronator drift, sensation to light touch equal to face, arms and legs, normal affect Skin: warm, dry Results & Data Vital Signs (Past 12 Hours) Vital Signs Pulse Pulse Resp BP BP Pulse Ox 12/09/18 14:00 76 18 200/115 H 99 12/09/18 12:00 76 18 119/113 H 96 12/09/18 10:40 81 20 203/114 H 98 12/09/18 10:14 115 H 18 248/137 H 99 Laboratory Results Short CBC 12/09/18 Range/Units 10:35 WBC 6.21 (4.8-10.8) K/uL Hgb 10.9 L (14.0-18.0) g/dL Hct 31.8 L (42-52) % Plt Count 225 (130-400) K/uL BMP 12/09/18 10:35 Sodium 136 Potassium 3.6 Chloride 98 Carbon Dioxide 33 H BUN 38 H Creatinine 5.27 H* Glucose 93 Calcium 8.3 L Cardiac Enzymes 12/09/18 Range/Units 10:35 Troponin I < 0.015 (0-0.045) ng/ml Liver Function 12/09/18 Range/Units 10:35 Total Bilirubin 0.1 L (0.2-1) mg/dl AST 12 L (15-37) U/L ALT 18 (12-78) U/L Alkaline Phosphatase 110 (45-117) U/L Albumin 2.2 L (3.4-5.0) gm/dl Urine 12/09/18 Range/Units 11:15 Urine Color Yellow Urine Appearance Clear (Clear) Urine pH 8.0 H (4.5-7.5) Ur Specific Coldiron 1.022 (1.000-1.030) Urine Protein 4+ H (Negative) Urine Glucose (UA) 3+ H (Negative) Diagnostic Findings CT HEAD: IMPRESSION: No acute intracranial findings. CXR: IMPRESSION: No active disease in the chest. ECG Rate (beats per minute): 76 Rhythm: normal sinus Supervising Physician Co-Signing Physician Notes Attending addendum: Patient seen and examined care coordinated with Corina Srivastava PA-C, This is a 33-year-old male with complex past medical history of type 1 diabetes, poorly controlled, end-stage renal disease on dialysis, history of pericardial effusion, history of anemia of chronic disease Presented to ER with complaint of headache, right-sided arm and hand numbness, slurred speech Symptoms started around 9 AM this morning, started to have throbbing migraine around left orbital, area associated with photosensitivity, lasted for half an hour, upon arrival to ER all his symptoms were resolved CT head noncontrast shows no evidence of any acute CVA Patient has history of chronic migraine-usually happens during dialysis days Case discussed with neurology, possible complex migraine attack, need to rule out TIA Patient also presents with hypertensive urgency Will be admitted to telemetry, for blood pressure control, further neurological workup Vannesa Young MD
[2018-12-09] MEDS ORDERED: GLUCOSE 10 TABS/TUBE PO PRN (15:57)
[2018-12-09] MEDS ORDERED: DEXTROSE 50% 50 ML SYRINGE IV PRN (15:57)
[2018-12-09] MEDS ORDERED: PHARMACIST DISCHARGE MED REC CONSULT PRN (15:57)
[2018-12-09] MEDS ORDERED: CARBOHYDRATES FOR HYPOGLYCEMIA PO PRN (15:57)
[2018-12-09] MEDS ORDERED: GLUCOSE 40% GEL 15 GM TUBE PO PRN (15:57)
[2018-12-09] MEDS ORDERED: ACETAMINOPHEN 325 MG TAB PO PRN (15:57)
[2018-12-09] MEDS ORDERED: GLUCAGON FOR INJ 1 MG VIAL SQ PRN (15:57)
[2018-12-09] MEDS ORDERED: PHARMACY GLYCEMIC MGMT CONSULT PRN (16:10)
[2018-12-09] MEDS: INSULIN ASPART 100 UNITS/ML 3 ML PEN SC SCH ×3 (17:01→21:41)
[2018-12-09] MEDS: CALCIUM ACETATE 667 MG CAP PO SCH (17:23)
[2018-12-09] MEDS: CARVEDILOL 12.5 MG TAB PO SCH (20:29)
[2018-12-09] MEDS: ATORVASTATIN 40 MG TAB PO SCH (20:29)
[2018-12-09] MEDS ORDERED: INSULIN GLARGINE SOLOSTAR 100 UNITS/ML 3 ML PEN SC SCH (21:00)
[2018-12-09] MEDS: ACETAMINOPHEN 1,000 MG/100 ML VIAL IV SCH (21:42)
[2018-12-10 06:03] LABS: Basophils # (auto) 0.06 K/uL (0-0.2); Eosinophils % (auto) 1.7 %; Hematocrit (blood only) 30.7 % (42-52); Hemoglobin 10.6 g/dL (14.0-18.0); Immature Granulocytes # (auto) 0.01 K/uL (0.00-0.02); Immature Granulocytes % (auto) 0.2 %; Lymphocytes # (auto) 1.67 K/uL (1.2-3.4); Lymphocytes % (auto) 27.6 %; Mean Corpuscular Hgb Conc 34.5 g/dL (32-36); Mean Corpuscular Volume 86.2 fL (80-100); Mean Platelet Volume 9.5 fL (7.4-10.4); Monocytes # (auto) 0.47 K/uL (0.11-0.59); Monocytes % (auto) 7.8 %; Neutrophils # (auto) 3.75 K/uL (1.4-6.5); Neutrophils % (auto) 61.7 %; Platelet Count 218 K/uL (130-400); RDW Coefficient of Variation 13.5 % (11.5-14.5); RDW Standard Deviation 42.8 fL (36.4-46.3); Red Blood Count 3.56 M/uL (4.7-6.1); White Blood Count 6.06 K/uL (4.8-10.8)
[2018-12-10] MEDS: ACETAMINOPHEN 1,000 MG/100 ML VIAL IV SCH ×3 (06:22→21:47)
[2018-12-10 06:51] LABS: BUN Creatinine Ratio 7.4 (10-20); Calcium 8.6 mg/dl (8.5-10.1); Creatinine Clr Calc Pharmacy 15.9 ml/min; Est GFR (African American) 11.6; Potassium 3.9 mmol/L (3.5-5.1)
[2018-12-10] MEDS ORDERED: INSULIN GLARGINE SOLOSTAR 100 UNITS/ML 3 ML PEN SC ONE (08:15)
[2018-12-10] MEDS: CALCIUM ACETATE 667 MG CAP PO SCH ×3 (08:16→17:20)
[2018-12-10] MEDS: CARVEDILOL 12.5 MG TAB PO SCH ×2 (08:50→21:46)
[2018-12-10] MEDS: CHOLECALCIFEROL 1,000 UNITS TAB PO SCH (08:51)
[2018-12-10] MEDS: TORSEMIDE 10 MG TAB PO SCH (08:51)
[2018-12-10] MEDS: CLOPIDOGREL BISULFATE 75 MG TAB PO SCH (08:52)
[2018-12-10] MEDS: AMLODIPINE BESYLATE 5 MG TAB PO SCH (08:52)
[2018-12-10] MEDS: INSULIN ASPART 100 UNITS/ML 3 ML PEN SC SCH ×4 (09:01→21:47)
--- NOTE | 2018-12-10 10:36 | Communication Note ---
Date of Service: December 10, 2018 I saw Xavier today in consultation, reviewed his history, examined him, reviewed the imaging studies and discussed his case with Dr. Rivas I have also dictated a complete consultation note which will not be typed until later today. At this time I favor the diagnosis of a complicated migraine with a aphasia transient numbness of the right hand and bilateral visual disturbances all of brief duration followed by a severe left unilateral headache I do not think this was a TIA or stroke on this occasion I have recommended that he have a noncontrast MRI of the brain just to be certain that no small vascular event did occur. This man is on the transplant list and unfortunately where he is to have the documentation of a cerebrovascular accident, he would probably be put on hold for transplantation for at least 6-9 months so I think it is very important for us to be clear that this was not a completed stroke The above is been discussed with Dr. Rivas along with the possibility of starting him on some preventative medications for his dialysis related headaches. Unfortunately he is on quite a number of other medications and has a prolonged QT interval and the menu for agents which might be offered a going to be limited I have asked her to check with his manager editorial concerning possible addition of low-dose beta blockade, low-dose calcium channel blockade, or even low-dose tricyclic antidepressant such as Elavil at 10 mg to 20 mg at bedtime Topamax in my opinion is not a good option does have the risk of inducing renal calculi and this man really does not need to have this is an additional issue Neurology can see him in follow-up if needed in about 4-6 weeks assuming that the MRI was negative and and he will be discharged today or tomorrow depending on his blood pressure control Bam Benson MD
--- NOTE | 2018-12-10 12:10 | Consultation Report ---
DATE OF CONSULTATION: 12/10/[address] Young. HISTORY OF PRESENT ILLNESS: Xavier is a 33-year-old white right-handed man with a past medical history of type 1 diabetes, end-stage renal disease on hemodialysis, hypertension, retinopathy, and a history of a possible TIA versus migraine last July for which I saw him, anemia of chronic disease, arthropathy, postdialysis migraine headache like issues, yesterday while at work was examining a coin that a friend had offered to him and was unable to describe it or actually speaking anything was gibberish after that point. This lasted for several minutes, initially he thought it was funny, so did the friend, but then he developed numbness of the right arm and bilateral visual obscurations with some haziness, but no real scintillating phenomenon. All of this lasted about 10-15 minutes and then cleared completely, starting with the arm, then the vision and then the speech, but then he developed a severe left pounding, throbbing headache, was brought to the Emergency Room where he vomited and was noted to have a blood pressure 248/137 which gradually came down. Laboratory studies revealed no leukocytosis, significant electrical abnormality, normal sugar, normal troponin. CT scan was negative. Carotid duplexes in the past had been negative and has had MRI scans without contrast including a recent one on 11/23/2018. This of course was unfortunately prior to this event. He was admitted to the hospital and neurology has been consulted. PAST MEDICAL HISTORY: Pretty much as outlined above and includes hypertension, history of TIAs, diabetes, end-stage renal disease and he is in fact just had been put on transplant list. He has a prolonged QT interval, pericardial effusion and anemia due to end-stage renal disease. His primary care doctor is usually Dr. Singh in [place]. He is not allowed to take any nonsteroidal anti-inflammatory agents including aspirin and last time he was placed on Plavix acting on the assumption that the event in July was a TIA, not a migraine, but he does have a history of migraines as a child and post-dialysis headaches which are migrainous in type by their nature, but rarely are associated with any aura. MEDICATIONS: Include NovoLog, amlodipine, atorvastatin, calcium acetate, cholecalciferol, Plavix, torsemide, carvedilol, Lantus and acetaminophen. He again has some limitations on agents because of his prolonged QT interval. Other issues in the past medical history besides the end-stage renal disease, TIAs, diabetes and the complications included Charcot foot due to diabetes, esophagitis and the migraine-like headaches and prior event in July, which I thought was probably a TIA, although I was suspicious of a migraine as well. PAST SURGICAL HISTORY: Surgically, he has had an EGD, an AV fistula and some eye surgery. FAMILY HISTORY: Revealing of hypertension and diabetes, but no particular migraines at least according to what he tells me. SOCIAL HISTORY: Reveals him to be employed. He is a nonsmoker, minimal consumer of ethanol. REVIEW OF SYSTEMS: Reveals no recent acute changes and has systemic illness. He has had no new issues referable to head, eyes, ears, nose and throat, cardiovascular, pulmonary, gastrointestinal, genitourinary, musculoskeletal, dermatologic, hematologic, or endocrinologic system other than those issues related to his chronic renal disease, his diabetes, his anemia and now the neurologic events which I frankly think are migrainous. PHYSICAL EXAMINATION: GENERAL: He had a blood pressure as recorded above which gradually came down to normal range with observation. He was a thin, but otherwise well-developed, well-nourished white male, did not appear to be in any distress. HEENT: Examination was normal. LUNGS: Clear. No carotid bruits were heard. ABDOMEN: Soft and nontender. EXTREMITIES: Free of edema. NEUROLOGICAL: Today, he is completely normal. He is awake, alert, oriented in 3 spheres, has normal eye movements, normal visual rivas, normal speech. Tongue protrudes in the midline. Gait is absolutely normal without spasticity or ataxia. There is no drift, pronation sign, tremor, tics, choreiform activity. Reflexes are absent at the ankles, reduced at the knees, normal in the upper extremities. Strength is good. Position and vibratory sense loss in the lower extremities consistent with a mild polyneuropathy, and not unexpected in a man with longstanding diabetes and renal failure. I reviewed the imaging studies and at this point I believe this was probably a migraine with a left hemispheric progressive aura clearing in 15 minutes and then followed by more typical migraine headache. Unfortunately, this man is now on renal transplant list and if there is ever going to be a question of whether he had a stroke, I think it is important that we eliminate this now and I think we will do another noncontrast MRI to be sure there is nothing on diffusion that would suggest a vascular event. We are stuck, however, because of his inability to take aspirin. Dr. Young has also a question about migraine prophylaxis, but with the prolonged QT interval and number of the agents that we normally would use may be off the table including tricyclic antidepressants, even in low dose, and I would ask her to check with nephrology about what agents might be something to consider. He could be placed on low-dose Inderal, perhaps a calcium channel sunil such as Calan, perhaps on low-dose Topamax, although I am not sure that would not be dialyzed out quickly or even some tricyclic antidepressants, but again this will have to be judged in the context of his preexisting medication list and his prolonged QT interval. I will check back with him tomorrow if he is still here, but frankly I think he probably could be discharged once the MRI is done and assumedly negative for a new stroke. I will continue his Plavix at this point as if his history is correct and the MRI is negative, there is no reason to even consider adding additional antiplatelet medications at this time. MONIKA
--- NOTE | 2018-12-10 12:24 | Consultation Report ---
DATE OF CONSULTATION: 12/10/2018 NEPHROLOGY CONSULTATION HISTORY OF PRESENT ILLNESS: The patient is a 33-year-old male with type 1 diabetes with ESRD, on chronic hemodialysis Wednesday, , Wednesday, who was admitted last night overnight for TIA observation. Today is dialysis day and is getting dialysis as I speak right now. He appears asymptomatic at this time. Denies any acute symptoms. He had a CT scan of his head yesterday, which was unremarkable. PAST MEDICAL HISTORY: Includes type 1 diabetes with ESRD, on chronic hemodialysis, TTS, anemia of kidney disease, history of TIA, history of hypertension. PAST SURGICAL HISTORY: AV fistula, history of eye surgery. FAMILY HISTORY: Positive for diabetes in grandparents and hypertension in mother. SOCIAL HISTORY: He is single, lives alone, no smoking, no alcohol. REVIEW OF SYSTEMS: Twelve systems reviewed and negative. PHYSICAL EXAMINATION: GENERAL: Young white male who is not in any distress at this time. He is awake, alert, oriented x3. HEENT: Mucous membranes moist. NECK: Supple. No jugular venous distention. CHEST: Bilateral clear to auscultation. CARDIOVASCULAR: S1, S2 regular. ABDOMEN: Soft, nontender. EXTREMITIES: Shows no edema. He has an AV fistula which has been successfully cannulated just now. He also has a tunneled catheter. LABORATORY TESTS: From this morning shows a BUN of 49, creatinine of 6.58. Sodium 135, potassium 3.9. CT head unremarkable. Chest x-ray unremarkable. ASSESSMENT AND PLAN: A 33-year-old male with type 1 diabetes with end-stage renal disease, on chronic hemodialysis, TTS, admitted with rule out transient ischemic attack. He does not appear he had a clear cut TIA, but hard to tell. In any case, today is his dialysis day and he is getting dialysis as I speak. We will take 2.5 kilo off and 3-hour 30 minutes on a 2K bath. MTDD
--- NOTE | 2018-12-10 14:01 | Pharmacy Report ---
Glycemic Control Consultation - Date of Service December 10, 2018 - Scope Scope: Glycemic Pharmacist consulted for glycemic control and to write orders per [facility] inpatient glycemic control protocol - Objective Weight: 71.6 kg Accuchecks BSG (last 24hrs): 12/09/18 12/09/18 12/10/18 15:34 20:40 05:42 Glucose 295 H POC Glucose 105 H 288 H 12/10/18 12/10/18 07:58 13:39 Glucose POC Glucose 293 H 163 H Laboratory Data (last 24hrs): 12/10/18 05:42 Potassium 3.9 Carbon Dioxide 28 Anion Gap 9.0 Creatinine 6.58 H* D Est Cr Clr Drug Dosing 15.9 - Recent Pertinent Medications Outpatient Anti-diabetic Regimen: * Lantus 17 units SC qPM * Novolog AC * Correction factor: 20 mg/dL/unit * Carb ratio: 8 g CHO/unit * A1c = 8.6% on 10/07/18 The patient is currently receiving: * Basal insulin: Lantus 7 units SC 12/09 PM * Correctional Insulin: Novolog Correction per scale ACHS Goal Range: Low 140 mg/dL - High 180 mg/dL Correction Factor: 20 mg/dL/unit * Prandial insulin: Per carb ratio of 1 unit per 8 grams CHO consumed Risk Factors for Insulin Resistance: * Diet: T1DM - Assessment & Plan Assessment & Plan: ASSESSMENT: * 33 yo M with Type 1 diabetes admitted with stroke-like symptoms * BSG's were will controlled yesterday until HS - suspect that patient may have had po intake shortly before the BSG check * Lantus dose reduced significantly last night (received ~40% of home dose) * Suspect that AM hyperglycemia noted this morning is 2nd to basal insufficiency due to a too aggressive decrease from home basal insulin dose. Will therefore give a larger dose this AM * Will slightly tighten Novolog this AM for breakfast only as compared to home regimen as suspect some insulin resistance from basal insufficiency * OK to loosen again this afternoon as BSG's significantly responded - trended down from 293 to 163 mg/dL PLAN FOR INPATIENT GLYCEMIC CONTROL: * Basal insulin * Lantus 15 units SQ x1 now. Additional 5 units tonight if BSG >160 mg/dL * Bolus insulin * NovoLog per scale ACHS or Q6hrs while NPO * Goal Range: Low 120 mg/dL - High 150 mg/dL * Correction Factor: 20 mg/dL/unit * Nutritional / Prandial insulin per carb ratio of 1 unit per 9 grams CHO consumed * Please note that the plan above was derived based on current level of insulin resistance and hospital stress. These recommendations are appropriate for inpatient admission only. Plan of care upon discharge will need to be reassessed to avoid potential outpatient hypo/hyperglycemia. Thank you.
[2018-12-10] MEDS ORDERED: HYDROmorphone INJ 0.5 MG/0.5 ML SYR IV STA (14:06)
[2018-12-10] MEDS ORDERED: PROMETHAZINE HCL 12.5 MG in SODIUM CHLORIDE 0.9% 50 ML IV SCH (14:15)
--- NOTE | 2018-12-10 16:29 | Hospitalist Progress Note ---
Date of Service December 10, 2018 Assessment & Plan (1) Expressive aphasia: (2) Headache: Pt is 33 y/o M with PMH DM I, ESRD on HD, HTN, retinopathy, h/o TIA, anemia of chronic disease, sure, arthropathy, presented to ER with complaint of speech difficulty. Reported at 9:00 AM today had word finding problems, using wrong words, trouble writing, trouble making change, fuzzy vision, right arm numbness that lasted approx 10-15 minutes. It was then followed by [facility] to left eye. Upon arrival to ER he had emesis x 1. P: 115 down to 76, R: 18, BP: 248/137, 203/114. No leukocytosis. No significant electrolyte abnormality. Glucose: 98. Negative troponin. TSH: 2.8. EKG: NSR Today CT head: no acute findings. 07/2018: Carotid Doppler with no evidence of stenosis 07/2018: MRI brain without contrast: No acute findings 11/23/18: MRI brain without contrast: Normal study Since presentation is most likely secondary to complex migraine attack, No apparent sign of stroke MRI of brain without contrast ordered for definitive diagnosis, Should input from nephrology (3) Hypertensive urgency: -Added hydralazine 25mg po Q8H prn SBP >180 -continue amlodipine, carvedilol, torsemide -monitor BP (4) TIA (transient ischemic attack): H/O TIA -continue plavix, statin MRI of brain ordered rule out acute CVA (5) Diabetes mellitus type 1 with complications: A1c: 8.6 on 09/27/18 Pt not currently on insulin pump and on lantus 17 units HS and novolog sliding scale -Lantus, novolog sliding scale -glycemic pharmacy consult, (6) End-stage renal disease (ESRD): On HD on wednesday, , wednesday schedule -nephrology consult for HD Had dialysis treatment today (7) Prolonged QT interval: Qtc: 508 -repeat EKG tomorrow morning -avoid Qt prolonging agents (8) Pericardial effusion without cardiac tamponade: Hx echo 09/29/18: EF: 60-65%, mild to moderate sized pericardial effusion without evidence of tamponade. Patient was seen by Dr. Velasquez for preop risk assessment prior to renal transplant consideration on 12/07/18. At that time patient was asymptomatic and repeat echo was scheduled for 01/2019 -echo to reassess for pericardial effusion (9) Anemia in ESRD (end-stage renal disease): Hgb: 10.9. At baseline -monitor cbc DVT Prophylaxis -SCDs and ambulate Subjective Developed left arm weakness, difficulty in talking, worsening of headache during dialysis today Symptom improved after dialysis Patient is very tearful, Has been having migraine attack with each dialysis session, today his pain and weakness worse worse than before Counseling provided, Discussed with neurology, Patient is presenting with complex migraine attack associated with volume shift during dialysis Physical Exam Physical Exam: GENERAL: No sign of distress, HEENT: Sclera nonicteric, pink-purple bilateral equal reactive to light extraocular muscle intact Normal oral mucosa, neck: No JVD, no thyromegaly, trachea midline Lungs: Clear to auscultate, no wheeze or rales Cardiovascular: Regular S1 and S2, no murmur or gallop, no JVD, no lower extremity edema Abdomen: Soft, nontender, bowel sounds active, no hepatosplenomegaly Extremities: No rash or deformity, normal joint, Neuro: No focal neurological deficit, no dysarthria, no facial droop Psych: Alert awake oriented x3: Euthymic Skin: No rash LYMPH NODES: No cervical lymphadenopathy Results & Data Vital Signs (Past 12 Hours) Vital Signs Temp Pulse Pulse Pulse Resp BP BP 12/10/18 15:00 37 C 68 18 133/79 12/10/18 13:40 36.8 C 70 18 154/85 H 12/10/18 13:15 37 C 73 152/89 H 12/10/18 12:40 70 119/75 12/10/18 12:20 69 127/78 12/10/18 12:00 70 137/80 12/10/18 11:40 69 138/80 12/10/18 11:20 72 157/92 H 12/10/18 11:00 74 165/95 H 12/10/18 10:50 36.9 C 74 12/10/18 10:04 136/78 12/10/18 08:46 81 16 194/107 H 12/10/18 07:25 100 H Pulse Ox 12/10/18 15:00 98 12/10/18 13:40 96 12/10/18 13:15 12/10/18 12:40 12/10/18 12:20 12/10/18 12:00 12/10/18 11:40 12/10/18 11:20 12/10/18 11:00 12/10/18 10:50 12/10/18 10:04 12/10/18 08:46 97 12/10/18 07:25
[2018-12-10] MEDS ORDERED: PROMETHAZINE HCL 12.5 MG in SODIUM CHLORIDE 0.9% 50 ML IV PRN (20:00)
[2018-12-10] MEDS ORDERED: INSULIN GLARGINE SOLOSTAR 100 UNITS/ML 3 ML PEN SC SCH (21:00)
--- NOTE | 2018-12-10 21:09 | Magnetic Resonance Report ---
MRI OF THE BRAIN WITHOUT CONTRAST CLINICAL HISTORY: Right arm numbness and slurred speech. Suspected stroke. COMPARISON STUDY: Noncontrast head CT dated 12/09/2018, MRI the brain dated 08/05/2018. FINDINGS: Sagittal T1, axial diffusion, proton density and T2 weighted axial, coronal FLAIR, and axial T1-weigh trudy images were acquired. No intra or extra-axial mass lesions are visualized Axial diffusion-weighted images reveal no evidence of acute or subacute infarction. There is no evidence of ventricular dilatation. Proton density T2-weighted and FLAIR images reveal no significant intraparenchymal signal abnormaliti es There are no abnormal flow voids. IMPRESSION: 1. No acute intracranial findings 2. No evidence of acute or subacute infarction 3. No evidence of intracranial mass on this noncontrast study Electronically signed by: Edson Sheffield M.D. 12/10/2018 9:08 PM
[2018-12-10] MEDS: ATORVASTATIN 40 MG TAB PO SCH (21:45)
[2018-12-11] MEDS: ACETAMINOPHEN 1,000 MG/100 ML VIAL IV SCH ×3 (06:21→14:43)
[2018-12-11] MEDS: CARVEDILOL 12.5 MG TAB PO SCH (08:18)
[2018-12-11] MEDS: CALCIUM ACETATE 667 MG CAP PO SCH ×2 (08:18→12:25)
[2018-12-11] MEDS: AMLODIPINE BESYLATE 5 MG TAB PO SCH (08:18)
[2018-12-11] MEDS: CLOPIDOGREL BISULFATE 75 MG TAB PO SCH (08:18)
[2018-12-11] MEDS: CHOLECALCIFEROL 1,000 UNITS TAB PO SCH (08:18)
[2018-12-11] MEDS: TORSEMIDE 10 MG TAB PO SCH (08:19)
[2018-12-11] MEDS: INSULIN ASPART 100 UNITS/ML 3 ML PEN SC SCH (08:21)
[2018-12-11] MEDS ORDERED: INSULIN GLARGINE SOLOSTAR 100 UNITS/ML 3 ML PEN SC ONE ×2 (08:45→09:00)
--- NOTE | 2018-12-11 09:15 | Pharmacy Report ---
Pharmacy Glycemic Short Note 2 - Date of Service December 11, 2018 - Glycemic Short BSG Results (Last 24 hours): 12/10/18 12/10/18 12/10/18 13:39 16:36 20:23 POC Glucose 163 H 115 H 158 H 12/11/18 07:44 POC Glucose 273 H Outpatient Anti-diabetic Regimen: * Lantus 17 units SC qPM * Novolog AC * Correction factor: 20 mg/dL/unit * Carb ratio: 8 g CHO/unit * A1c = 8.6% on 10/07/18 Risk Factors for Insulin Resistance: * Diet: T1DM ASSESSMENT: * 33 yo M with Type 1 diabetes admitted with stroke-like symptoms, likely due to complex migraine * AM fasting again elevated despite increase in dose yesterday. Patient may still be basal deficient from reduced Lantus dose on 12/09 PM (received ~40% of home dose). Will slightly increase dose today and add a scale for tomorrow. * Significant elevation to 489 mg/dL noted at lunch today. Will correct with IV insulin 0.1 units/kg to rapidly decrease BSG's. 1 hour recheck with noted decrease to 355 mg/dL. Will cover CHO consumed at lunch with a tighter CHO ratio / Novolog. Will tighten ongoing Novolog as well PLAN FOR INPATIENT GLYCEMIC CONTROL: * Insulin regular 7 units IV x1 * Basal insulin: Lantus 18 units SQ x1 now then qAM based on BSG * 16 units for BSG less than 100 mg/dL * 18 units for BSG 100-160 mg/dL * 20 units for BSG greater than 160 mg/dL * Bolus insulin * NovoLog per scale ACHS or Q6hrs while NPO * Goal Range: Low 110 mg/dL - High 140 mg/dL * Correction Factor: 20 mg/dL/unit * Nutritional / Prandial insulin per carb ratio of 1 unit per 7 grams CHO consumed
[2018-12-11 09:26] LABS: Basophils # (auto) 0.11 K/uL (0-0.2); Basophils % (auto) 1.8 %; Eosinophils % (auto) 1.6 %; Hematocrit (blood only) 32.3 % (42-52); Hemoglobin 10.8 g/dL (14.0-18.0); Lymphocytes # (auto) 0.91 K/uL (1.2-3.4); Lymphocytes % (auto) 14.9 %; Mean Corpuscular Hgb Conc 33.4 g/dL (32-36); Mean Corpuscular Volume 88.7 fL (80-100); Mean Platelet Volume 9.3 fL (7.4-10.4); Monocytes # (auto) 0.71 K/uL (0.11-0.59); Monocytes % (auto) 11.6 %; Neutrophils # (auto) 4.27 K/uL (1.4-6.5); Neutrophils % (auto) 70.1 %; Platelet Count 216 K/uL (130-400); RDW Coefficient of Variation 13.4 % (11.5-14.5); Red Blood Count 3.64 M/uL (4.7-6.1)
[2018-12-11 10:05] LABS: BUN Creatinine Ratio 6.2 (10-20); Calcium 8.7 mg/dl (8.5-10.1); Creatinine Clr Calc Pharmacy 17.5 ml/min; Est GFR (African American) 13.3; Est GFR (Non-African American) 11.5; Potassium 4.2 mmol/L (3.5-5.1)
[2018-12-11 10:22] LABS: Beta-Hydroxybutyrate 4.31 mg/dl (0.2-2.81)
--- NOTE | 2018-12-11 10:37 | Communication Note ---
Date of Service: December 11, 2018 I saw Xavier today reviewed his chart and actually received communication from the dialysis unit yesterday afternoon which outlined an event very similar to the one he had previously with the exception that it involved the other cerebral hemisphere i.e. the right and was characterized by the onset of left arm numbness numbness in his left tongue and mild dysarthria speech rather than a aphasia. The event emerged about 2 hours into dialysis clearance within 20 minutes or so and then was accompanied by right sided pounding throbbing headache typical of the headaches he usually gets during dialysis MRI has shown no evidence for infarction Examination today remains neurologically normal with the exception of his polyneuropathy This point treatment is going to be difficult. Medications we could offer prior to dialysis or on all likelihood going to be removed quickly and is not clear that they would be effective anyway unless they were given on sustained daily doses. My suggestions would be to try a 10 mg Inderal given orally as soon as he starts dialysis to see if this would prevent the headaches from occurring. Another option would be to try a short acting calcium channel sunil such as verapamil again administered as soon as he starts dialysis in hopes that it would prevent the headaches If these immediate release compounds are ineffective perhaps a trial of sustained release Inderal 60 mg or verapamil 120 mg taken an hour before dialysis might have a more sustained effect with a slower release and less propensity to be removed during dialysis I would leave these decisions up to his nephrology team and to the internal medicine group covering him currently but for now see no reason he could not be discharged and of course we could follow him in the neurology clinic and discuss his case with our nephrologists who actually occupy the same clinic space and certainly would be able to communicate using the [employer] system as well Bam Benson MD
[2018-12-11] MEDS ORDERED: INSULIN ASPART 100 UNITS/ML 3 ML PEN SC ONE ×3 (11:30→16:30)
[2018-12-11] MEDS ORDERED: INSULIN HUMAN REGULAR PER UNIT 7 UNITS in SYRINGE 6.93 ML IV STA (12:13)
[2018-12-11] MEDS ORDERED: VERAPAMIL HCL 40 MG TAB PO ONE (14:56)
[2018-12-11] MEDS ORDERED: STROKE PATIENT DISCHARGE STA (14:59)
--- NOTE | 2018-12-12 08:27 | Discharge Summary ---
Date of Service December 14, 2018 Admission HPI Per Admitting Provider Pt is 33 y/o M with PMH DM I, ESRD on HD, HTN, retinopathy, h/o TIA, anemia of chronic disease, sure, arthropathy, presented to ER with complaint of speech difficulty. Patient states this morning his fasting blood sugar was 160. States he ate 2 pieces of toast and 2 eggs for breakfast. Patient states 9:00 this morning while he was at work he developed word finding problems. Also reports he was trying to say the word Silver and kept saying single. He states he thinks speech may have been garbled. He noticed missing letters and words when he was writing. 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 Also has some right arm numbness and "fuzzy" vision of bilateral eyes. Symptoms lasted approximately 10-15 minutes and then resolved. After that he started with headache to left eye. He states he did not take his blood sugar at the time of symptoms. Upon arrival to ER he had emesis x 1. Still makes a little urine, denies dysuria or hematuria. Pt with hx possible TIA admission [facility] in 07/2018 and was placed on plavix and atorvastatin. Patient with history of getting right sided headache after dialysis. Denies fever/chills, diaphoresis, diarrhea or constipation, dizziness, syncope, neck pain, CP, SOB, orthopnea, palpitations, cough, sore throat, choking, otalgia, rhinorrhea, abdominal pain, extremity edema, rashes. 07/2018: Carotid Doppler with no evidence of stenosis 07/2018: MRI brain without contrast: No acute findings 11/23/18: MRI brain without contrast: Normal study Discharge Data Consultations 12/09/18 15:40 ED Decision to Admit Stat 12/09/18 15:57 Consult Case Management - Discharge Planning Routine Consult Nephrology Routine Consult Neurology Routine
[2018-12-12] MEDS ORDERED: INSULIN GLARGINE SOLOSTAR 100 UNITS/ML 3 ML PEN SC SCH (09:00)
--- NOTE | 2018-12-13 07:23 | Discharge Summary ---
Date of Service December 13, 2018 Admission HPI Per Admitting Provider Pt is 33 y/o M with PMH DM I, ESRD on HD, HTN, retinopathy, h/o TIA, anemia of chronic disease, sure, arthropathy, presented to ER with complaint of speech difficulty. Patient states this morning his fasting blood sugar was 160. States he ate 2 pieces of toast and 2 eggs for breakfast. Patient states 9:00 this morning while he was at work he developed word finding problems. Also reports he was trying to say the word Silver and kept saying single. He states he thinks speech may have been garbled. He noticed missing letters and words when he was writing. 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 Also has some right arm numbness and "fuzzy" vision of bilateral eyes. Symptoms lasted approximately 10-15 minutes and then resolved. After that he started with headache to left eye. He states he did not take his blood sugar at the time of symptoms. Upon arrival to ER he had emesis x 1. Still makes a little urine, denies dysuria or hematuria. Pt with hx possible TIA admission [facility] in 07/2018 and was placed on plavix and atorvastatin. Patient with history of getting right sided headache after dialysis. Denies fever/chills, diaphoresis, diarrhea or constipation, dizziness, syncope, neck pain, CP, SOB, orthopnea, palpitations, cough, sore throat, choking, otalgia, rhinorrhea, abdominal pain, extremity edema, rashes. 07/2018: Carotid Doppler with no evidence of stenosis 07/2018: MRI brain without contrast: No acute findings 11/23/18: MRI brain without contrast: Normal study Principal Diagnosis COMPLEX MIGRAINE , TIA, END STAGE RENAL DISEASE ON DIALYSIS , TYPE 1 DIABETES Discharge Exam GENERAL: No sign of distress, HEENT: Sclera nonicteric, pink-purple bilateral equal reactive to light extraoc ular muscle intact Normal oral mucosa, neck: No JVD, no thyromegaly, trachea midline Lungs: Clear to auscultate, no wheeze or rales Cardiovascular: Regular S1 and S2, no murmur or gallop, no JVD, no lower extremity edema Abdomen: Soft, nontender, bowel sounds active, no hepatosplenomegaly Extremities: No rash or deformity, normal joint, Neuro: No focal neurological deficit, no dysarthria, no facial droop Psych: Alert awake oriented x3: Euthymic Skin: No rash LYMPH NODES: No cervical lymphadenopathy Discharge Data Allergies Allergy/AdvReac Type Severity Reaction Status Date / Time No Known Allergies Allergy Verified 12/09/18 10:31 Consultations 12/09/18 15:40 ED Decision to Admit Stat 12/09/18 15:57 Consult Case Management - Discharge Planning Routine Consult Nephrology Routine Consult Neurology Routine Ordered Studies 12/09/18 10:40 CT head/brain wo con Stat 12/10/18 14:06 MR brain wo con Routine Hospital Course (1) Expressive aphasia: (2) Headache: Pt is 33 y/o M with PMH DM I, ESRD on HD, HTN, retinopathy, h/o TIA, anemia of chronic disease, sure, arthropathy, presented to ER with complaint of speech difficulty. Reported at 9:00 AM today had word finding problems, using wrong words, trouble writing, trouble making change, fuzzy vision, right arm numbness that lasted approx 10-15 minutes. It was then followed by [facility] to left eye. Upon arrival to ER he had emesis x 1. P: 115 down to 76, R: 18, BP: 248/137, 203/114. No leukocytosis. No significant electrolyte abnormality. Glucose: 98. Negative troponin. TSH: 2.8. EKG: NSR Today CT head: no acute findings. 07/2018: Carotid Doppler with no evidence of stenosis 07/2018: MRI brain without contrast: No acute findings 11/23/18: MRI brain without contrast: Normal study Since presentation is most likely secondary to complex migraine attack, No apparent sign of stroke MRI of brain without contrast ordered for definitive diagnosis, appreciate input from Neurology pt started on calcium channel sunil -Diltiazem 80 mg daily /can be titrated up to 120 mg daily if needed should be taken in am 1 hr before dialysis ( pt gets dialysis at 7 am (3) Hypertensive urgency: -added Diltiazem for migraine prophylaxis -continue amlodipine, carvedilol, torsemide -monitor BP (4) TIA (transient ischemic attack): H/O TIA -continue plavix, statin MRI of brain : no evidence of stroke pt's presenting symptom possibly due to complex migraine , he has been getting them regularly during dialysis but symptom was never this severe had another episode during dialysis headache improved with taking tylenol left hand numbness /difficulty speaking resolved few hours after dialysis (5) Diabetes mellitus type 1 with complications: A1c: 8.6 on 09/27/18 Pt not currently on insulin pump currently on lantus 17 units HS and novolog sliding scale -Lantus, novolog sliding scale -glycemic pharmacy consult, -appreciate input pt will resume his prior insulin protocol on discharge (6) End-stage renal disease (ESRD): On HD on wednesday, , wednesday schedule -nephrology consult for HD s/p dialysis yesterday , developed similar symptom of left arm /face weakness ,numbness , left sided headache , difficult to speack symptom resolved after few hours post dialysis MRI OF BRAIN shows no evidence of CVA (7) Prolonged QT interval: Qtc: 508 -avoid Qt prolonging agents (8) Pericardial effusion without cardiac tamponade: Hx echo 09/29/18: EF: 60-65%, mild to moderate sized pericardial effusion without evidence of tamponade. Patient was seen by Dr. Velasquez for preop risk assessment prior to renal transplant consideration on 12/07/18. At that time patient was asymptomatic and repeat echo was scheduled for 01/2019 -ECHO SHOWS ; improved pericardial effusion (9) Anemia in ESRD (end-stage renal disease): Hgb: 10.9. At baseline - DVT Prophylaxis -SCDs and ambulate DISPOSITION : stable to be discharged home today pt given information /leaflets regarding Migrane prophylaxis started on Calcium channel sunil Neurology follow up in clinic with Dr Moody Total Time Total Time Spent Total Time Spent (In Minutes): approx 40 mins Total Time Includes: Examination of the Patient, Discharge Planning, Medication Reconciliation and Communication With Other Providers Discharge Plan Discharge Items Patient Disposition: Home - Self-Care Reason For Visit: NEUROLOGICAL SYMPTOMS Discharge Diagnosis: COMPLEX MIGRAIN Discharge Goals: Decrease discomfort, Diagnostic testing and Therapeutic intervention Activity: Resume your previous activity Non-emergency contact: Primary Care Provider Call non-emergency contact if: you have any medication questions Follow-up/Referrals: Ciro Singh MD [Primary Care Provider] - Diet: Carb Count or DM1 and Dialysis Renal Addtl Provider Instructions: TAKE VERAPAMIL/CALAN 80 MG DAILY TAKE 1 HOUR BEFORE DIALYSIS ON DIALYSIS DAYS PLEASE FOLLOW UP WITH NEUROLOGY DR MOODY IF CONTINUED TO [facility] UP [facility] DR CLEMENS IN A WEEK Prescriptions: New verapamil [Calan] 80 mg tablet 80 mg PO DAILY Qty: 30 RF: 3 Continued atorvastatin 40 mg tablet 40 mg PO HS RF: 0 torsemide 20 mg tablet 40 mg PO QAM RF: 0 clopidogrel 75 mg tablet 75 mg PO QAM RF: 0 calcium acetate 667 mg Tablet 2,001 mg PO TIDM RF: 0 amlodipine 10 mg tablet 10 mg PO QAM RF: 0 Novolog U-100 Insulin aspart 100 unit/mL Solution SUBCUT UD RF: 0 cholecalciferol (vitamin D3) [Vitamin D3] 5,000 unit Tablet 5,000 unit PO QAM RF: 0 carvedilol [Coreg] 12.5 mg tablet 12.5 mg PO BID RF: 0 Lantus U-100 Insulin 100 unit/mL solution 17 unit SUBCUT PM RF: 0 acetaminophen [Tylenol Extra Strength] 500 mg Tablet 1,000 mg PO Q6H PRN (Reason: Pain) RF: 0 Stand-Alone Forms: [employer] [facility]/Other Patient Handouts: Migraine Stages Tx, Migraine Headache Triggers Prevent, Migraine Meds Lifestyle Change Discharge Orders: Discharge Order (Routine); Ordered 12/11/18 Ordered By: Vannesa Young Admission Data Admit Date/Time: 12/09/18 13:55 Attending Provider: Vannesa Young Admit Provider: Vannesa Young Primary Care Provider: Ciro Singh Other Providers: Vannesa Young ; Bam Moody Stacy L. Service: Telemetry Medical Other Interventions: Discharge Summary Assessment (RN) Last Done: 12/11/18 14:57 DC Date/Time DO NOT enter until pt leaves facility: 12/11/18 15:44
== END 2018-12-11 15:44 | disposition home or self-care (01) | DRG 102 ==
LOC: ED 10:10 → 2N 13:55
DX: Z86.73 Personal history of transient ischemic attack (TIA), and cerebral infarction without residual deficits; D63.1 Anemia in chronic kidney disease; Z86.718 Personal history of other venous thrombosis and embolism; N18.6 End stage renal disease; I16.0 Hypertensive urgency; F80.1 Expressive language disorder; I31.3 Pericardial effusion (noninflammatory); D64.9 Anemia, unspecified; Z99.2 Dependence on renal dialysis; R51 Headache; I12.0 Hypertensive chronic kidney disease with stage 5 chronic kidney disease or end stage renal disease; E10.22 Type 1 diabetes mellitus with diabetic chronic kidney disease; I45.81 Long QT syndrome; K21.9 Gastro-esophageal reflux disease without esophagitis; G43.909 Migraine, unspecified, not intractable, without status migrainosus

== ENCOUNTER 2018-12-30 19:44 | Inpatient (IN) ==
[2018-12-30] MEDS ORDERED: ONDANSETRON INJ 2 MG/ML 2 ML VIAL IV STA (20:36)
[2018-12-30 20:37] LABS: Basophils # (auto) 0.04 K/uL (0-0.2); Basophils % (auto) 0.8 %; Eosinophils # (auto) 0.04 K/uL (0-0.5); Eosinophils % (auto) 0.8 %; Hematocrit (blood only) 28.8 % (42-52); Hemoglobin 10.2 g/dL (14.0-18.0); Immature Granulocytes # (auto) 0.01 K/uL (0.00-0.02); Immature Granulocytes % (auto) 0.2 %; Lymphocytes # (auto) 0.65 K/uL (1.2-3.4); Lymphocytes % (auto) 13.7 %; Mean Corpuscular Hgb Conc 35.4 g/dL (32-36); Mean Platelet Volume 10.4 fL (7.4-10.4); Monocytes # (auto) 0.49 K/uL (0.11-0.59); Monocytes % (auto) 10.3 %; Neutrophils # (auto) 3.52 K/uL (1.4-6.5); Neutrophils % (auto) 74.2 %; Platelet Count 178 K/uL (130-400); RDW Coefficient of Variation 14.1 % (11.5-14.5); RDW Standard Deviation 42.9 fL (36.4-46.3); Red Blood Count 3.43 M/uL (4.7-6.1); White Blood Count 4.75 K/uL (4.8-10.8)
[2018-12-30 20:47] LABS: Prothrombin Time 10.3 Seconds (9.0-12.0)
[2018-12-30 21:00] LABS: iSTAT Creatinine 5.9 mg/dl (0.6-1.3); iSTAT Hemoglobin 9.2 g/dl (14.0-18.0); iSTAT Ionized Calcium 1.03 mmol/l (1.12-1.32); iSTAT Potassium 3.6 mEq/L (3.3-5.0)
--- NOTE | 2018-12-30 21:00 | XRay Report ---
XR chest 1V portable CLINICAL HISTORY: weakness COMPARISON STUDY: 12/20/2018 FINDINGS: The heart is enlarged. There is evidence for interstitial pulmonary edema. There are trace pleural effusions.[ IMPRESSION: Cardiomegaly and interstitial pulmonary edema. Trace pleural effusions. Electronically signed by: Edson Sheffield M.D. 12/30/2018 8:58 PM
[2018-12-30 21:17] LABS: Base Excess VBG 0.6 mEq/L; pH VBG 7.34 (7.36-7.41)
[2018-12-30 21:23] LABS: Alanine Aminotransferase 16 U/L (12-78); Albumin Globulin Ratio 0.6 (0.9-2); Albumin Level 2.5 gm/dl (3.4-5.0); Alkaline Phosphatase 121 U/L (45-117); Aspartate Aminotransferase 18 U/L (15-37); BUN Creatinine Ratio 7.7 (10-20); Bilirubin,Total 0.3 mg/dl (0.2-1); Blood Urea Nitrogen 46 mg/dl (7-18); Calcium 8.1 mg/dl (8.5-10.1); Carbon Dioxide 27 mmol/L (21-32); Chloride 90 mmol/L (98-107); Creatine Kinase 699 U/L (39-308); Creatinine Clr Calc Pharmacy 18.6 ml/min; Est GFR (African American) 13.1; Est GFR (Non-African American) 11.3; Globulin 3.9 gm/dl (2.5-4.0); Glucose 505 mg/dl (70-99); Magnesium 2.1 mg/dl (1.8-2.4); Potassium 3.5 mmol/L (3.5-5.1); Sodium 127 mmol/L (136-145); Total Protein 6.4 gm/dl (6.4-8.2); Troponin I < 0.015 ng/ml (0-0.045)
--- NOTE | 2018-12-30 21:37 | CT Scan Report ---
CT head/brain wo con CLINICAL HISTORY: Acute change in mental status COMPARISON STUDY: 12/20/2018 TECHNIQUE: Axial CT of the brain is performed from the vertex to the skull base. IV contrast was not administered for this examination. A dose lowering technique was utilized adhering to the principles of ALARA. CT DOSE: 537.48 mGy.cm FINDINGS: No intra or extra-axial mass lesions are visualized. There is no CT evidence of acute cortical infarc tion. There is no evidence of midline shift. There is no acute hemorrhage. No calvarial fractures ar e visualized. There are patchy white matter hypodensities likely on a small vessel basis. There is no evidence of pathologic ventricular dilatation. There is no evidence of acute sinusitis IMPRESSION: No acute intracranial findings Electronically signed by: Edson Sheffield M.D. 12/30/2018 9:35 PM
[2018-12-30] MEDS ORDERED: NovoLIN-R INSULIN PER UNIT CHARGE IV STA (21:38)
--- NOTE | 2018-12-30 21:59 | Emergency Department Note ---
Entered by Valeria Smith acting as a scribe for Fredo Higginbotham DO History of Present Illness General Chief complaint: Altered Mental Status Time Seen by Provider: 12/30/18 19:46 Source: patient and other (Nurse) Mode of arrival: EMS Limitations: altered mental status History of Present Illness Onset (ago): hour(s) (hours ago) Location: head (Altered Mental Status) Pain Consistency: + other (Episode) Quality: + other (Altered mental status) Associated symptoms: + confusion and + other (Left leg pain); no chest pain, no headaches, no nausea/vomiting and no weakness The patient is a 33 year old male presenting to the Emergency Department complaining of an episode of altered mental status starting hours ago. The nurse reports that EMS brought the patient to the Emergency Department. The patient reports that he cannot say what he wants to say. He states that he does not know when this started. He states that he does not know who he lives with. He notes that receives dialysis. He adds that his left leg hurts. The patient denies chest pain, diarrhea, headache, weakness, recent falls and vomiting. The HPI and ROS are limited due to AMS. Home Medications Home Medications Medication Instructions Recorded Confirmed Type amlodipine 10 mg PO QAM 09/28/18 12/30/18 History atorvastatin 40 mg PO HS 09/28/18 12/30/18 History calcium acetate 2,668 mg PO TIDM 09/28/18 12/30/18 History cholecalciferol (vitamin D3) 5,000 units PO QAM 09/28/18 12/30/18 History [Vitamin D3] clopidogrel 75 mg PO QAM 09/28/18 12/30/18 History carvedilol [Coreg] 12.5 mg PO BID 11/03/18 12/30/18 History Lantus U-100 Insulin 14 units SUBCUT HS 11/20/18 12/30/18 History acetaminophen [Tylenol Extra 1,000 mg PO Q6H PRN 11/20/18 12/20/18 History Strength] doxazosin 2 mg PO HS 12/20/18 12/30/18 History insulin aspart U-100 [Novolog 7 units SUBCUT UD 12/20/18 12/30/18 History U-100 Insulin aspart] metoclopramide HCl [Reglan] 10 mg PO AC 12/20/18 12/30/18 History topiramate [Topamax] 25 mg PO BID #20 tab 12/20/18 12/30/18 Rx verapamil [Calan] 80 mg PO QAM 12/20/18 12/30/18 History Allergies Allergy/AdvReac Type Severity Reaction Status Date / Time No Known Allergies Allergy Verified 12/20/18 10:02 Past Med/Surg History Medical History Esophagitis ESRD (end stage renal disease) (Chronic) TIA (transient ischemic attack) (Chronic) Anemia in chronic kidney disease (CKD) (Chronic) Nephrotic syndrome due to diabetes mellitus (Chronic) DVT prophylaxis Fatty liver (Chronic) Charcot foot due to diabetes mellitus (Chronic) Nausea and vomiting (Chronic) Diabetic nephropathy (Chronic) Diabetic neuropathy (Chronic) Diabetic retinopathy (Chronic) 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) Anemia (Chronic) Hypertension (Chronic) CKD (chronic kidney disease), stage III (Resolved) Hyperglycemia (Resolved) Neurological symptoms (Resolved) Diabetes Surgical History History of esophagogastroduodenoscopy (EGD) AV fistula (Chronic) Hx of eye surgery Family History Mother Hypertension Grandfather (Maternal) Diabetes Grandmother (Maternal) Diabetes Grandmother (Paternal) Diabetes Other Heart disease Social History Preferred Language: Telugu Communication Ability: Effective Visual Impairment: Limited Beliefs That Will Affect Care: None marital status: single Current Living Situation: Alone current occupational status: employed Feels Safe at Home: Yes Smoking Status: Never smoker Tobacco Type: cigarettes Cigarettes Per Day: [id number] history, quit 1 year ago Second Hand Exposure: No Hx Alcohol Use: No Hx Substance Use: No Review of Systems The HPI and ROS are limited due to AMS. Physical Exam Vital Signs Vital Signs - 24 hr 12/30/18 19:50 12/30/18 20:09 12/30/18 20:25 Temperature 36.6 C Temperature Source Oral Sepsis Recent Fever Within 48 Hours No Sepsis New/Unexplained Change in Mental Status Yes Sepsis Action Taken by Nursing No Action Required Pulse Rate 92 H Pulse Rate [Apical] Pulse Rhythm Regular Pulse Rhythm [Apical] Pulse Strength Normal Pulse Strength [Apical] Respiratory Rate 16 Respiratory Effort / Characteristics Non-Labored Respiratory Depth Normal Respiratory Pattern Regular Blood Pressure 202/118 H Blood Pressure [Left Arm] Blood Pressure Mean 146 Blood Pressure Mean [Left Arm] Blood Pressure Position Sitting Blood Pressure Position [Left Arm] Pulse Oximetry 93 93 89 L Oxygen Delivery Method Room Air Room Air Room Air Oxygen Flow Rate 2 12/30/18 21:02 12/30/18 21:42 Temperature Temperature Source Sepsis Recent Fever Within 48 Hours Sepsis New/Unexplained Change in Mental Status Sepsis Action Taken by Nursing Pulse Rate 93 H Pulse Rate [Apical] 92 H Pulse Rhythm Regular Pulse Rhythm [Apical] Regular Pulse Strength Pulse Strength [Apical] Normal Respiratory Rate 18 Respiratory Effort / Characteristics Non-Labored Respiratory Depth Normal Respiratory Pattern Blood Pressure Blood Pressure [Left Arm] 203/113 H Blood Pressure Mean Blood Pressure Mean [Left Arm] 143 Blood Pressure Position Blood Pressure Position [Left Arm] Sitting Pulse Oximetry 89 L 87 L Oxygen Delivery Method Nasal Cannula Oxymask Oxygen Flow Rate 3 6 CONSTITUTIONAL/VITAL SIGNS: Reviewed / noted above. GENERAL: Non-toxic in appearance. Occasional cough. Does not answer questions appropriately. Does not appear to be able to formulate sentence sin a understandable manner. Denies pain when asked. INTEGUMENTARY: Warm, dry, and [place]. No rashes. HEAD: Normocephalic. EYES: without scleral icterus or trauma. ENT/OROPHARYNX: clear and moist. LYMPHADENOPATHY/NECK: Is supple without lymphadenopathy or meningismus. RESPIRATORY: Lungs clear and equal. CARDIOVASCULAR: Regular rate and rhythm. GI/ABDOMEN: Soft and nontender. No organomegaly or pulsatile mass. No rebound or guarding. Normal bowel sounds. EXTREMITIES: Warm and well perfused. Right upper arm fistula with good thrill. BACK: No CVA tenderness. NEUROLOGICAL: Intact without focal deficits. Awake and alert but unable to assess further due to lack of cooperation. PSYCHIATRIC: normal affect. MUSCULOSKELETAL: Normally developed with good muscle tone. Course 2004: The patient was evaluated in room B2, and a complete history and physical examination were performed. 2037: I reevaluated the patient at this time. 2141: I discussed the patient's case with Dr. Estee Snow hospitalist. He will evaluate the patient for further management. Consultations Consultation #1: I discussed the [facility] He will evaluate the patient for further management. Time: 21:42 Administered Medications Discontinued Medications Insulin Human Regular (Novolin R U-100 Per Unit) 15 units IV NOW STA Stop: 12/30/18 21:39 Last Admin: 12/30/18 21:50 Dose: 15 units Documented by: [id number] Cosigned by: [id number] Ondansetron HCl (Zofran) 4 mg IV NOW STA Stop: 12/30/18 20:37 Last Admin: 12/30/18 20:43 Dose: 4 mg Documented by: [id number] Medical Decision Making Differential Diagnosis Differential diagnoses includes but is not limited to toxic, metabolic, infectious, traumatic, cardiac, neurologic, hematologic, psychiatric and inflammatory etiologies. Medical Records Attestation: I reviewed the patient's medical records. Home Medications Current Medication List: was personally reviewed by me Laboratory Data Attestation: I reviewed the patient's lab results. Result diagrams: 12/30/18 20:00 12/30/18 20:00 Lab Results 12/30/18 12/30/18 12/30/18 Range/Units 20:00 20:00 20:00 WBC 4.75 L (4.8-10.8) K/uL RBC 3.43 L (4.7-6.1) M/uL Hgb 10.2 L (14.0-18.0) g/dL POC Hgb (14.0-18.0) g/dl Hct 28.8 L (42-52) % POC Hct (42-52) % MCV 84.0 (80-100) fL MCH 29.7 (25-34) pg MCHC 35.4 (32-36) g/dL RDW Std Deviation 42.9 (36.4-46.3) fL RDW Coeff of Ralph 14.1 (11.5-14.5) % Plt Count 178 (130-400) K/uL MPV 10.4 (7.4-10.4) fL Immature Gran % (Auto) 0.2 % Neut % (Auto) 74.2 % Lymph % (Auto) 13.7 % Jerome % (Auto) 10.3 % Eos % (Auto) 0.8 % Baso % (Auto) 0.8 % Immature Gran # (Auto) 0.01 (0.00-0.02) K/uL Neut # (Auto) 3.52 (1.4-6.5) K/uL Lymph # (Auto) 0.65 L (1.2-3.4) K/uL Jerome # (Auto) 0.49 (0.11-0.59) K/uL Eos # (Auto) 0.04 (0-0.5) K/uL Baso # (Auto) 0.04 (0-0.2) K/uL PT 10.3 (9.0-12.0) Seconds INR 1.0 (0.9-1.1) VBG pH (7.36-7.41) VBG pCO2 (38-50) mmHg VBG pO2 mmHg VBG HCO3 mmol/L VBG O2 Saturation % VBG Base Excess mEq/L Barometric Pressure mm/Hg POC Sodium (135-144) mEq/L Sodium 127 L (136-145) mmol/L POC Potassium (3.3-5.0) mEq/L Potassium 3.5 (3.5-5.1) mmol/L POC Chloride (101-112) mEq/L Chloride 90 L (98-107) mmol/L Carbon Dioxide 27 (21-32) mmol/L POC Total CO2 (24-31) mEq/l Anion Gap 10.0 (3-11) POC Anion Gap (16-25) mmol/L POC BUN (7-18) mg/dl BUN 46 H (7-18) mg/dl Creatinine 5.97 H* (0.6-1.4) mg/dl POC Creatinine (0.6-1.3) mg/dl Est Cr Clr Drug Dosing 18.6 ml/min Est GFR ( Amer) 13.1 Est GFR (Non-Af Amer) 11.3 BUN/Creatinine Ratio 7.7 L (10-20) Glucose 505 H* (70-99) mg/dl POC Glucose (other) (70-99) mg/dl POC Lactic Acid Victor Manuel (0.90-1.70) mmol/L Calcium 8.1 L (8.5-10.1) mg/dl POC Ioniz Calcium Ale (1.12-1.32) mmol/l Magnesium 2.1 (1.8-2.4) mg/dl Total Bilirubin 0.3 (0.2-1) mg/dl AST 18 (15-37) U/L ALT 16 (12-78) U/L Alkaline Phosphatase 121 H (45-117) U/L Ammonia (11-32) umol/L Total Creatine Kinase 699 H (39-308) U/L Troponin I < 0.015 (0-0.045) ng/ml Total Protein 6.4 (6.4-8.2) gm/dl Albumin 2.5 L (3.4-5.0) gm/dl Globulin 3.9 (2.5-4.0) gm/dl Albumin/Globulin Ratio 0.6 L (0.9-2) Beta-Hydroxybutyric Acd 0.60 (0.2-2.81) mg/dl TSH 2.330 (0.300-4.500) uIu/ml Ethyl Alcohol mg/dL (0-3) mg/dl 12/30/18 12/30/18 12/30/18 Range/Units 20:41 20:42 20:46 WBC (4.8-10.8) K/uL RBC (4.7-6.1) M/uL Hgb (14.0-18.0) g/dL POC Hgb 9.2 L (14.0-18.0) g/dl Hct (42-52) % POC Hct 27 L (42-52) % MCV (80-100) fL MCH (25-34) pg MCHC (32-36) g/dL RDW Std Deviation (36.4-46.3) fL RDW Coeff of Ralph (11.5-14.5) % Plt Count (130-400) K/uL MPV (7.4-10.4) fL Immature Gran % (Auto) % Neut % (Auto) % Lymph % (Auto) % Jerome % (Auto) % Eos % (Auto) % Baso % (Auto) % Immature Gran # (Auto) (0.00-0.02) K/uL Neut # (Auto) (1.4-6.5) K/uL Lymph # (Auto) (1.2-3.4) K/uL Jerome # (Auto) (0.11-0.59) K/uL Eos # (Auto) (0-0.5) K/uL Baso # (Auto) (0-0.2) K/uL PT (9.0-12.0) Seconds INR (0.9-1.1) VBG pH (7.36-7.41) VBG pCO2 (38-50) mmHg VBG pO2 mmHg VBG HCO3 mmol/L VBG O2 Saturation % VBG Base Excess mEq/L Barometric Pressure mm/Hg POC Sodium 129 L (135-144) mEq/L Sodium (136-145) mmol/L POC Potassium 3.6 (3.3-5.0) mEq/L Potassium (3.5-5.1) mmol/L POC Chloride 89 L (101-112) mEq/L Chloride (98-107) mmol/L Carbon Dioxide (21-32) mmol/L POC Total CO2 26 (24-31) mEq/l Anion Gap (3-11) POC Anion Gap 18.0 (16-25) mmol/L POC BUN 39 H (7-18) mg/dl BUN (7-18) mg/dl Creatinine (0.6-1.4) mg/dl POC Creatinine 5.9 H* (0.6-1.3) mg/dl Est Cr Clr Drug Dosing ml/min Est GFR ( Amer) Est GFR (Non-Af Amer) BUN/Creatinine Ratio (10-20) Glucose (70-99) mg/dl POC Glucose (other) 391 H* (70-99) mg/dl POC Lactic Acid Victor Manuel 2.23 H (0.90-1.70) mmol/L Calcium (8.5-10.1) mg/dl POC Ioniz Calcium Ale 1.03 L (1.12-1.32) mmol/l Magnesium (1.8-2.4) mg/dl Total Bilirubin (0.2-1) mg/dl AST (15-37) U/L ALT (12-78) U/L Alkaline Phosphatase (45-117) U/L Ammonia (11-32) umol/L Total Creatine Kinase (39-308) U/L Troponin I (0-0.045) ng/ml Total Protein (6.4-8.2) gm/dl Albumin (3.4-5.0) gm/dl Globulin (2.5-4.0) gm/dl Albumin/Globulin Ratio (0.9-2) Beta-Hydroxybutyric Acd (0.2-2.81) mg/dl TSH (0.300-4.500) uIu/ml Ethyl Alcohol mg/dL < 3.0 (0-3) mg/dl 12/30/18 12/30/18 Range/Units 20:49 20:49 WBC (4.8-10.8) K/uL RBC (4.7-6.1) M/uL Hgb (14.0-18.0) g/dL POC Hgb (14.0-18.0) g/dl Hct (42-52) % POC Hct (42-52) % MCV (80-100) fL MCH (25-34) pg MCHC (32-36) g/dL RDW Std Deviation (36.4-46.3) fL RDW Coeff of Ralph (11.5-14.5) % Plt Count (130-400) K/uL MPV (7.4-10.4) fL Immature Gran % (Auto) % Neut % (Auto) % Lymph % (Auto) % Jerome % (Auto) % Eos % (Auto) % Baso % (Auto) % Immature Gran # (Auto) (0.00-0.02) K/uL Neut # (Auto) (1.4-6.5) K/uL Lymph # (Auto) (1.2-3.4) K/uL Jerome # (Auto) (0.11-0.59) K/uL Eos # (Auto) (0-0.5) K/uL Baso # (Auto) (0-0.2) K/uL PT (9.0-12.0) Seconds INR (0.9-1.1) VBG pH 7.34 L (7.36-7.41) VBG pCO2 51 H (38-50) mmHg VBG pO2 34 mmHg VBG HCO3 27 mmol/L VBG O2 Saturation 65.0 % VBG Base Excess 0.6 mEq/L Barometric Pressure 732.8 mm/Hg POC Sodium (135-144) mEq/L Sodium (136-145) mmol/L POC Potassium (3.3-5.0) mEq/L Potassium (3.5-5.1) mmol/L POC Chloride (101-112) mEq/L Chloride (98-107) mmol/L Carbon Dioxide (21-32) mmol/L POC Total CO2 (24-31) mEq/l Anion Gap (3-11) POC Anion Gap (16-25) mmol/L POC BUN (7-18) mg/dl BUN (7-18) mg/dl Creatinine (0.6-1.4) mg/dl POC Creatinine (0.6-1.3) mg/dl Est Cr Clr Drug Dosing ml/min Est GFR ( Amer) Est GFR (Non-Af Amer) BUN/Creatinine Ratio (10-20) Glucose (70-99) mg/dl POC Glucose (other) (70-99) mg/dl POC Lactic Acid Victor Manuel (0.90-1.70) mmol/L Calcium (8.5-10.1) mg/dl POC Ioniz Calcium Ale (1.12-1.32) mmol/l Magnesium (1.8-2.4) mg/dl Total Bilirubin (0.2-1) mg/dl AST (15-37) U/L ALT (12-78) U/L Alkaline Phosphatase (45-117) U/L Ammonia 17.4 (11-32) umol/L Total Creatine Kinase (39-308) U/L Troponin I (0-0.045) ng/ml Total Protein (6.4-8.2) gm/dl Albumin (3.4-5.0) gm/dl Globulin (2.5-4.0) gm/dl Albumin/Globulin Ratio (0.9-2) Beta-Hydroxybutyric Acd (0.2-2.81) mg/dl TSH (0.300-4.500) uIu/ml Ethyl Alcohol mg/dL (0-3) mg/dl Imaging Data Radiologist's Impression: Radiology results as stated below per my review and the radiologist's interpretation: CT head/brain wo con CLINICAL HISTORY: Acute change in mental status COMPARISON STUDY: 12/20/2018 TECHNIQUE: Axial CT of the brain is performed from the vertex to the skull base. IV contrast was not administered for this examination. A dose lowering technique was utilized adhering to the principles of ALARA. CT DOSE: 537.48 mGy.cm FINDINGS: No intra or extra-axial mass lesions are visualized. There is no CT evidence of acute cortical infarction. There is no evidence of midline shift. There is no acute hemorrhage. No calvarial fractures are visualized. There are patchy white matter hypodensities likely on a small vessel basis. There is no evidence of pathologic ventricular dilatation. There is no evidence of acute sinusitis IMPRESSION: No acute intracranial findings Electronically signed by: Edson Sheffield M.D. 12/30/2018 9:35 PM XR chest 1V portable CLINICAL HISTORY: weakness COMPARISON STUDY: 12/20/2018 FINDINGS: The heart is enlarged. There is evidence for interstitial pulmonary edema. There are trace pleural effusions.[ IMPRESSION: Cardiomegaly and interstitial pulmonary edema. Trace pleural effusions. Electronically signed by: Edson Sheffield M.D. 12/30/2018 8:58 PM ECG Data Attestation: I personally reviewed and interpreted this ECG as follows: Indication: altered mental status Rate (beats per minute): 94 Rhythm: normal sinus Findings: no ST elevation and no ectopy Blood Pressure Blood Pressure Findings: Elevated blood pressure Blood Pressure Disposition: further management by hospitalist [facility] Narrative This is a 33-year-old male who presents to the ED with a chief complaint of altered mental status. The patient is a poor historian. He seems Impression & Plan Acute hyperglycemia, Expressive aphasia The scribe's documentation has been prepared under my direction and personally reviewed by me in its entirety. I confirm that the note above accurately reflects all work, treatment, procedures, and medical decision making performed by me.
[2018-12-30] MEDS ORDERED: FUROSEMIDE 40 MG in SYRINGE 0 ML IV ONE (22:30)
[2018-12-30] MEDS ORDERED: FUROSEMIDE 80 MG in SYRINGE 0 ML IV ONE (22:31)
[2018-12-30] MEDS ORDERED: METOPROLOL TARTRATE 1 MG/ML VIAL IV STA (22:36)
--- NOTE | 2018-12-30 23:17 | History & Physical Report ---
Date of Service December 30, 2018 Assessment & Plan (1) Encephalopathy: (2) Altered mental status: Pt presented to ER by EMS for AMS. It is reported by ER staff that pt was found by neighbor outside not acting appropriately. Last known well unknown. In ER pt unable to give any history, repeats words Pt afebrile, R: 16, P:92-103, BP: 202/118, 93% on RA initially then 89% on RA. WBC: 4, H/H: 10.2/28.8, corrected Na: 133 for glucose of 505, K: 3.5. POC lactate: 2.23, negative troponin, CK: 699, TSH:2.3 CT HEAD:no acute changes DDX: metabolic encephalopathy, hypertensive emergency, stroke -unable to verify home med list secondary to pt's mental status -plan per attending physician (3) Hypertensive urgency: In ER BP: 202/118, 203/113 Hx HTN. Unknown if pt took his BP meds today. Noted visit at PCP on 12/26/18 BP was 180/102 and pt had reportedly not taken meds that day -Pt on amlodipine, carvedilol on med list from PCP office (4) Hyperglycemia: (5) Diabetes mellitus type 1 with complications: A1c: 9.6 on 11/06/18 Med list reports insulin glargine 16 units daily with novolog sliding scale In ER glucose: 505. beta hydroxybutyric acid: 0.6. VBG: pH; 7.3, CO2: 51, O2: 34, HCO3: 27 In ER was given Insulin R 15 units IV with repeat BS (6) Hypoxia: In ER pt 93% on RA initially then 89% on RA up to 96% on 10L oxymask. WBC: 4 CXR: Cardiomegaly and interstitial pulmonary edema. Trace pleural effusions. (7) End-stage renal disease (ESRD): On HD on , sat schedule Unsure when pt last went to dialysis (8) Anemia in ESRD (end-stage renal disease): H/H: 10.2/28.8. baseline Hgb: ~10 -monitor H&H Pt was seen with Dr Fontanez. See addendum for plan and further assessment. History of Present Illness Chief Complaint: Altered mental status Primary Care Provider: Ciro Singh MD Pt is 33 y/o M with PMH DM I, HTN, ESRD on HD on wed schedule, h/o TIA, retinopathy, anemia of chronic disease, presented to the ER by EMS for altered mental status. Unable to obtain history from patient secondary to altered mental status. Information obtained from ER physician reports EMS was called by patient's neighbor who noticed he was in the yard wandering around and not acting normally. Upon arrival to ER staff report he would repeat a sentence when asked a question and shake his head "yes or no", but unable to obtain further history. Unknown if pt had any of his medications today. Unknown when his last HD was. Patient with history of hospitalization 12/09/2018-12/11/2018 for speech d ifficulty, and right arm numbness, visual disturbance. Was reporting LYON after dialysis. Pt had no acute changes on CT head or MRI brain at that time. It was thought pt may be having complex migraine. He was started on Diltiazem 80 mg daily and to be taken 1 hr before dialysis. Review of out patient med list from PCP's office pt on topamax 25mg BID. Pt also with hx possible TIA admission [facility] in 07/2018 and was placed on plavix and atorvastatin. 07/2018: Carotid Doppler with no evidence of stenosis 07/2018: MRI brain without contrast: No acute findings 11/23/18: MRI brain without contrast: Normal study 12/10/18: MRI brain without contrast: No acute intracranial findings. No evidence of acute or subacute infarction. No evidence of intracranial mass on this noncontrast study 12/10/18: echo: EF: 55-60%, normal wall motion, grade I diastolic dysfunction, improved pericardial effusion Allergies Allergy/AdvReac Type Severity Reaction Status Date / Time No Known Allergies Allergy Verified 12/20/18 10:02 Home Medications Home Medications Medication Instructions Recorded Confirmed Type amlodipine 10 mg PO QAM 09/28/18 12/30/18 History atorvastatin 40 mg PO HS 09/28/18 12/30/18 History calcium acetate 2,668 mg PO TIDM 09/28/18 12/30/18 History cholecalciferol (vitamin D3) 5,000 units PO QAM 09/28/18 12/30/18 History [Vitamin D3] clopidogrel 75 mg PO QAM 09/28/18 12/30/18 History carvedilol [Coreg] 12.5 mg PO BID 11/03/18 12/30/18 History Lantus U-100 Insulin 14 units SUBCUT HS 11/20/18 12/30/18 History acetaminophen [Tylenol Extra 1,000 mg PO Q6H PRN 11/20/18 12/20/18 History Strength] doxazosin 2 mg PO HS 12/20/18 12/30/18 History insulin aspart U-100 [Novolog 7 units SUBCUT UD 12/20/18 12/30/18 History U-100 Insulin aspart] metoclopramide HCl [Reglan] 10 mg PO AC 12/20/18 12/30/18 History topiramate [Topamax] 25 mg PO BID #20 tab 12/20/18 12/30/18 Rx verapamil [Calan] 80 mg PO QAM 12/20/18 12/30/18 History Past Med/Surg History Medical History Esophagitis ESRD (end stage renal disease) (Chronic) TIA (transient ischemic attack) (Chronic) Anemia in chronic kidney disease (CKD) (Chronic) Nephrotic syndrome due to diabetes mellitus (Chronic) DVT prophylaxis Fatty liver (Chronic) Charcot foot due to diabetes mellitus (Chronic) Nausea and vomiting (Chronic) Diabetic nephropathy (Chronic) Diabetic neuropathy (Chronic) Diabetic retinopathy (Chronic) 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) Anemia (Chronic) Hypertension (Chronic) CKD (chronic kidney disease), stage III (Resolved) Hyperglycemia (Resolved) Neurological symptoms (Resolved) Diabetes Surgical History History of esophagogastroduodenoscopy (EGD) AV fistula (Chronic) Hx of eye surgery Family History Mother Hypertension Grandfather (Maternal) Diabetes Grandmother (Maternal) Diabetes Grandmother (Paternal) Diabetes Other Heart disease Social History Preferred Language: Latvian Communication Ability: Effective Visual Impairment: Limited Beliefs That Will Affect Care: None marital status: single Current Living Situation: Alone current occupational status: employed Feels Safe at Home: Yes Smoking Status: Unknown if ever smoked Hx Alcohol Use: No Hx Substance Use: No Review of Systems Review of Systems: Unobtainable due to cognitive status Physical Exam Physical Exam: General: chronic ill appearing, WDWN Head: normocephalic, atraumatic Eyes: PERRL, difficult to fully test EOM's as pt not fully following commands, conjunctiva non-injected, anicteric ENT: normal inspection external ears, nose, mucous membranes dry Neck: supple, trachea midline Lungs: R:20, On oxymask 6L with sat 96%, no accessory muscle use, mildly diminished breath sounds CV: Pulse 102, regular rhythm, no murmur, no pretibial edema Abd: normal BS, soft, no apparent tenderness, no guarding Ext: no cyanosis, no apparent calf tenderness Neuro: Alert. Pt repeats sentence: I can't back outside repeatedly, then answers outside for other responses. Pt will not shake head in yes or no fashion when asked other question just repeats the word outside. Speech doesn't appear slurred. No noted facial drooping. Difficult to assess neuro exam as pt with limited participation. With repeated prompting pt will move left foot (right foot in brace), able to wiggle toes bilaterally, noted to be freely able to move his bilateral arms to reposition himself in bed but when prompted pt will not actively move arms Skin: warm, dry, scab noted right anterior chest Results & Data Vital Signs (Past 12 Hours) Vital Signs Temp Pulse Pulse Resp BP BP Pulse Ox 12/30/18 23:07 103 H 196/114 H 12/30/18 22:34 88 16 211/120 H 96 12/30/18 21:42 93 H 87 L 12/30/18 21:02 92 H 18 203/113 H 89 L 12/30/18 20:25 89 L 12/30/18 20:09 93 12/30/18 19:50 36.6 C 92 H 16 202/118 H 93 Laboratory Results Short CBC 12/30/18 Range/Units 20:00 WBC 4.75 L (4.8-10.8) K/uL Hgb 10.2 L (14.0-18.0) g/dL Hct 28.8 L (42-52) % Plt Count 178 (130-400) K/uL BMP 12/30/18 20:00 Sodium 127 L Potassium 3.5 Chloride 90 L Carbon Dioxide 27 BUN 46 H Creatinine 5.97 H* Glucose 505 H* Calcium 8.1 L Cardiac Enzymes 12/30/18 12/30/18 Range/Units 20:00 20:00 Total Creatine Kinase 699 H (39-308) U/L Troponin I < 0.015 Cancelled (0-0.045) ng/ml Liver Function 12/30/18 Range/Units 20:00 Total Bilirubin 0.3 (0.2-1) mg/dl AST 18 (15-37) U/L ALT 16 (12-78) U/L Alkaline Phosphatase 121 H (45-117) U/L Albumin 2.5 L (3.4-5.0) gm/dl Diagnostic Findings CT HEAD: IMPRESSION: No acute intracranial findings CXR: IMPRESSION: Cardiomegaly and interstitial pulmonary edema. Trace pleural effusions. Supervising Physician Co-Signing Physician Notes IM ATTENDING : Patient seen and examined. History obtained from patient, father, and records. Patient is not a reliable historian secondary to disorientation. Preceding documentation by Ms. Marika Srivastava PA-C reviewed. FINAL ASSESSMENT AND PLAN as follows : Encephalopathy, perseveration symptoms Multifactorial : Uncontrolled BP ? Compliance Hyperglycemia, DM1, suboptimal control as of recent hemoglobin A1c of 9.26 October 2018 Hypoxemic respiratory failure secondary to pulmonary congestion, ESRD on HD Rule out CVA, past hx TIA on Plavix Rule out seizures Abdominal pain secondary to constipation Chronic anemia secondary to CKD, hemoglobin at baseline Recurrent admissions ?functional disability past tobacco abuse PCU Facilitate home BP meds, may need titration Supplemental O2 Baseline ABG IV Lasix dose for renal function, neb 1 dose MRI/MRA of the brain RE encephalopathy, perseveration EEG RE encephalopathy Add aspirin to Plavix for additional stroke prophylaxis until new CVA ruled out Neurology consult RE perseveration symptoms Bowel regimen Nephrology consult RE dialysis management Pharmacy glycemic control consult DVT prophylaxis. Heparin subcu Full code Patient's father requesting updates from providers. Mr. Gilson Hicks, contact #[phone].
[2018-12-30] MEDS ORDERED: XOPENEX/ATROVENT 1.25mg/0.5MG NEB COMBO NEB STA (23:26)
[2018-12-30] MEDS ORDERED: DEXTROSE 50% 50 ML SYRINGE IV ONE ×2 (23:40→23:47)
[2018-12-30] MEDS ORDERED: LEVALBUTEROL 1.25MG/0.5ML NEB INH STA (23:47)
[2018-12-30] MEDS ORDERED: IPRATROPIUM BROMIDE NEB SOLN 0.02% 2.5 ML VIAL INH STA (23:47)
[2018-12-31] MEDS ORDERED: PHARMACY GLYCEMIC MGMT CONSULT PRN (00:23)
[2018-12-31] MEDS ORDERED: GLUCOSE 10 TABS/TUBE PO PRN ×2 (00:30→01:46)
[2018-12-31] MEDS ORDERED: GLUCOSE 40% GEL 15 GM TUBE PO PRN ×2 (00:30→01:46)
[2018-12-31] MEDS ORDERED: DEXTROSE 50% 50 ML SYRINGE IV PRN ×2 (00:30→01:46)
[2018-12-31] MEDS ORDERED: CARBOHYDRATES FOR HYPOGLYCEMIA PO PRN ×2 (00:30→01:46)
[2018-12-31] MEDS ORDERED: GLUCAGON FOR INJ 1 MG VIAL SQ PRN ×2 (00:30→01:46)
[2018-12-31] MEDS ORDERED: DOXAZosin MESYLATE TAB 2 MG TAB PO STA (00:35)
[2018-12-31] MEDS ORDERED: POLYETHYLENE (MIRALAX) 17 GM PACK PO PRN (00:38)
[2018-12-31 00:46] LABS: Appearance Urine Clear (Clear); Bacteria Urine Automated Negative (Negative); Bilirubin Urine Negative (Negative); Blood Urine 2+ (Negative); Color Urine Yellow; Glucose Urine UA 3+ (Negative); Ketones Urine Negative (Negative); Leukocyte Esterase Urine Negative (Negative); Nitrite Urine Negative (Negative); Urobilinogen Urine Negative (Negative)
[2018-12-31] MEDS ORDERED: POLYETHYLENE (MIRALAX) 17 GM PACK PO STA (00:49)
[2018-12-31 00:50] LABS: Protein Urine 4+ (Negative)
[2018-12-31 01:06] LABS: Amphetamines+Metham, Urine Neg (Neg); Barbiturates, Urine Neg (Neg); Benzodiazepine, Urine Neg (Neg); Cocaine, Urine Neg (Neg); MDMA (Ecstacy), Urine Neg (Neg); Methadone, Urine Neg (Neg); Opiate, Urine Neg (Neg); Phencyclidine, Urine Neg (Neg)
[2018-12-31] MEDS ORDERED: CARVEDILOL 12.5 MG TAB PO ONE (01:43)
[2018-12-31] MEDS ORDERED: CLOPIDOGREL BISULFATE 75 MG TAB PO STA (01:43)
[2018-12-31] MEDS ORDERED: PHARMACY GLYCEMIC MGMT CONSULT STA (01:46)
[2018-12-31] MEDS ORDERED: PROMETHAZINE HCL 12.5 MG in SODIUM CHLORIDE 0.9% 50 ML IV STA (01:46)
[2018-12-31] MEDS ORDERED: PROMETHAZINE HCL 12.5 MG in SODIUM CHLORIDE 0.9% 50 ML IV PRN (01:46)
[2018-12-31] MEDS ORDERED: CLOPIDOGREL BISULFATE 75 MG TAB PO ONE (01:46)
[2018-12-31] MEDS ORDERED: PHARMACIST DISCHARGE MED REC CONSULT PRN (01:46)
[2018-12-31] MEDS ORDERED: HYDROmorphone INJ 0.5 MG/0.5 ML SYR IV PRN (01:47)
[2018-12-31] MEDS: DOCUSATE SODIUM 100 MG CAP PO SCH ×2 (02:09→09:44)
[2018-12-31] MEDS: ASPIRIN 81 MG ECTAB PO SCH (02:11)
[2018-12-31] MEDS: INSULIN ASPART 100 UNITS/ML 3 ML PEN SC SCH ×4 (04:36→21:51)
[2018-12-31] MEDS: AMLODIPINE BESYLATE 5 MG TAB PO SCH (04:56)
[2018-12-31] MEDS: HEPARIN SOD 5,000 UNIT/0.5 ML VIAL SQ SCH ×3 (04:58→21:47)
--- NOTE | 2018-12-31 06:06 | CT Scan Report ---
CT abd pelvis wo con CT DOSE: 567.26 mGy.cm HISTORY: Pain abd pain TECHNIQUE: Multiaxial CT images of the abdomen and pelvis were performed without contrast. A dose lo wering technique was utilized adhering to the principles of ALARA. COMPARISON STUDY: 03/23/2018 FINDINGS: Small bilateral pleural effusions. Prominent basilar pulmonary vasculature. Liver spleen an d pancreas are unremarkable. Liver spleen and pancreas appear unremarkable. Kidneys are negative for hydronephrosis. Bowel pattern is nonobstructive. Slight bladder wall thickening. Trace free fluid within the pelvic c ul-de-sac. Small amount of body wall anasarca. IMPRESSION: 1. Bilateral pleural effusions with probable pulmonary edema. 2. Mild body wall anasarca. 3. Otherwise negative abdomen and pelvis. Electronically signed by: Slick Howell M.D. 12/31/2018 6:04 AM The above report was generated using voice recognition software. It may contain grammatical, syntax or spelling errors.
[2018-12-31 06:16] LABS: Basophils # (auto) 0.04 K/uL (0-0.2); Basophils % (auto) 0.6 %; Eosinophils # (auto) 0.02 K/uL (0-0.5); Eosinophils % (auto) 0.3 %; Hematocrit (blood only) 26.3 % (42-52); Hemoglobin 9.2 g/dL (14.0-18.0); Immature Granulocytes # (auto) 0.03 K/uL (0.00-0.02); Immature Granulocytes % (auto) 0.4 %; Lymphocytes # (auto) 0.86 K/uL (1.2-3.4); Lymphocytes % (auto) 12.8 %; Mean Platelet Volume 10.2 fL (7.4-10.4); Monocytes # (auto) 0.54 K/uL (0.11-0.59); Monocytes % (auto) 8.1 %; Neutrophils # (auto) 5.21 K/uL (1.4-6.5); Neutrophils % (auto) 77.8 %; Platelet Count 155 K/uL (130-400); RDW Coefficient of Variation 14.5 % (11.5-14.5); RDW Standard Deviation 44.4 fL (36.4-46.3); Red Blood Count 3.13 M/uL (4.7-6.1)
[2018-12-31 06:49] LABS: Est GFR (African American) 13.2; Est GFR (Non-African American) 11.4; Potassium 3.6 mmol/L (3.5-5.1)
[2018-12-31] MEDS ORDERED: INSULIN GLARGINE SOLOSTAR 100 UNITS/ML 3 ML PEN SC ONE ×2 (08:00→17:00)
[2018-12-31] MEDS ORDERED: AMLODIPINE BESYLATE 5 MG TAB PO SCH (09:00)
[2018-12-31] MEDS: CHOLECALCIFEROL 1,000 UNITS TAB PO SCH (09:43)
[2018-12-31] MEDS: CALCIUM ACETATE 667 MG CAP PO SCH ×3 (09:43→17:58)
[2018-12-31] MEDS: VERAPAMIL HCL 40 MG TAB PO SCH (09:43)
[2018-12-31] MEDS: TOPIRAMATE 25 MG TAB PO SCH ×2 (09:44→21:47)
[2018-12-31] MEDS: CARVEDILOL 12.5 MG TAB PO SCH ×2 (09:44→21:47)
--- NOTE | 2018-12-31 09:58 | Pharmacy Report ---
Pharmacy Glycemic Short Note 2 - Date of Service December 31, 2018 - Glycemic Short BSG Results (Last 24 hours): 12/30/18 12/30/18 12/30/18 20:00 20:46 23:23 Glucose 505 H* POC Glucose 68 L* POC Glucose (other) 391 H* 12/31/18 12/31/18 12/31/18 00:55 03:45 05:55 Glucose 184 H POC Glucose 85 137 H POC Glucose (other) 12/31/18 07:13 Glucose POC Glucose 207 H POC Glucose (other) OUTPATIENT ANTIDIABETIC REGIMEN: * Lantus 14 units SQ qHS * Novolog 7 units SQ with meals * A1c = 9.6% 11/06/18 (unreliable due to ESRD - HD) ASSESSMENT: * 33 yr old T1DM male admitted for encephalopathy, altered mental status. * Patient is well known to the glycemic service. During an admission from November 2018 he required ~46 units of insulin per day, however BSGs did fluctuate. * He was administered a dose of 15 units IV regular insulin last night. Novolog sliding scale was initiated @ 0400 this morning. * Unable to confirm if patient took any Lantus yesterday due to AMS. Per home med rec, he takes his dose in the evening so it seems unlikely. I will give a dose of Lantus now. Will attempt to work patient back to qHS dosing. I would not be surprised if BSGs remain elevated throughout the day since patient is basal deficient. * Lunch BSG elevated at 219 mg/dL. Patient not given coverage per he was taken off floor for HD. I requested that BSG be checked and covered with Novolog once patient returns to floor. PLAN FOR INPATIENT GLYCEMIC CONTROL: * Basal insulin * Lantus 15 units SQ this AM, then per scale at HS: * 0 units for BSG less than 140 * 5 units for BSG 140-250 * 7 units for BSG greater than 250 * Bolus insulin - tighten * NovoLog per scale ACHS or Q6hrs while NPO * Goal Range: Low 110 mg/dL - High 140 mg/dL * Correction Factor: 25 mg/dL/unit * Nutritional / Prandial insulin per carb ratio of 1 unit per 9 grams CHO consumed
--- NOTE | 2018-12-31 10:13 | Communication Note ---
Date of Service: December 31, 2018 I saw Xavier today, examined him, reviewed his chart, his imaging studies and laboratory studies and agrees that he has most likely a mixed metabolic toxic en cephalopathy perhaps with a superimposed confusional migraine. I cannot state that he did not have a seizure as the CPK was elevated but this may have been due to the fact he was found down on the ground may have been there for some time. Please full consults been dictated Examination reveals mild confusion but is otherwise nonfocal with exception of his polyneuropathy We will get an EEG but I suspect this will be done until Wednesday I will be back tomorrow to reassess him For now would make no changes in his medications and will continue the verapamil at 80 mg. And consider raising this to a long-acting 120 mg tablet Bam Benson MD
[2018-12-31] MEDS ORDERED: SODIUM CHLORIDE 0.9% 1000ML 1,000 ML IV PRN (10:17)
[2018-12-31] MEDS ORDERED: EPOETIN ALFA 10,000 UNITS/ML VIAL IV SCH (10:30)
[2018-12-31] MEDS ORDERED: HEPARIN SOD (PORCINE) 1000 UNIT/ML 10 ML VIAL IV ONE (10:45)
--- NOTE | 2018-12-31 11:10 | Magnetic Resonance Report ---
MR angio head wo con HISTORY: Mental status change aphasia TECHNIQUE: 3-D [id number] MRA of the brain was performed without contrast. COMPARISON STUDY: None. FINDINGS: Visualized intracranial internal carotid arteries, distal vertebral arteries, and basilar a rtery are widely patent. There is no significant stenosis, occlusion, or aneurysm seen within the yancy ateral ACAs, MCAs, or stemmer machine. IMPRESSION: No significant stenosis, occlusion, or aneurysm within the [place]. The above report was generated using voice recognition software. It may contain grammatical, syntax or spelling errors. Electronically signed by: Slick Howell M.D. 12/31/2018 11:09 AM
--- NOTE | 2018-12-31 11:28 | Magnetic Resonance Report ---
MR brain wo con HISTORY: Mental status change aphasia TECHNIQUE: Multiplanar multisequence MRI of the brain was performed without the use of contrast. COMPARISON STUDY: None. FINDINGS: There are no areas of restricted diffusion to suggest acute infarction. The midline structu res are intact. The paranasal sinuses are clear. The mastoid air cells are clear. The ventricles and sulci are within normal limits for age. There is no mass, hematoma, midline shift. The major vascular flow-voids at the skull base are well maintained. IMPRESSION: No acute intracranial abnormality. The above report was generated using voice recognition software. It may contain grammatical, syntax or spelling errors. Electronically signed by: Slick Howell M.D. 12/31/2018 11:27 AM
--- NOTE | 2018-12-31 11:56 | Hospitalist Progress Note ---
Date of Service December 31, 2018 Assessment & Plan (1) Encephalopathy: (2) Altered mental status: Metabolic encephalopathy Possible Confusion Migraine Hypertensive Urgency In setting of Transient Hypoxia, Hyperglycemia MRI Brain:No acute intracranial abnormality. MRA Brain:No significant stenosis, occlusion, or aneurysm within the [place]. Toxicology Screen: Negative Ammonia levels: normal EEG: pending Continue Verapamil, Topiramate Appreciate Neurology Input Neuro Checks Reorient frequently (3) Hypertensive urgency: Presented with elevated BP H/O HTN Could have missed with HTN medications prior to admission Continue amlodipine, carvedilol BP much better today Denies headache (4) Hyperglycemia: (5) Diabetes mellitus type 1 with complications: A1c: 9.6 on 11/06/18 Home med list: Insulin glargine 16 units daily with novolog sliding scale In ER glucose: 505. beta hydroxybutyric acid: 0.6. VBG: pH; 7.3, CO2: 51, O2: 34, HCO3: 27 Continue ISS, basal Insulin Pharmacy Glycemic control consult Monitor BGs (6) Hypoxia: CXR: Cardiomegaly and interstitial pulmonary edema. Trace pleural effusions. Hypoxemic respiratory failure secondary to pulmonary congestion Likely due to volume overload Currently saturating well on room air Volume status managed through dialysis Nephrology consulted (7) End-stage renal disease (ESRD): On HD on Wed, Wed, Sat schedule Unsure when patient had last dialysis Nephrology on board Planned for HD today (8) Anemia in ESRD (end-stage renal disease): Hb near baseline monitor H&H Hyponatremia ? Dilutional Monitor sodium levels DVT Px: Heparin SQ Code Status Full Code Disposition: Expect to discharge home when stable Patient's father:Mr. Gilson Hicks, contact #[phone]. Subjective Patient is seen and examined at bedside Patient is oriented to place and person He seemed to be confused, repeats words to questions Follows simple commands Complains of dizziness and nausea Unable to answer when he had dialysis last and no recollection of events from yesterday Clinically seemed to be volume overloaded Head Imaging studies--normal Review of Systems Review of Systems: Other Physical Exam Physical Exam: Physical Exam: Vitals signs as noted above General Appearance:Moderately built and nourished, no apparent distress, confused Head: normocephalic, Atraumatic Eyes: normal inspection, EOMI Neck: supple, Trachea midline Respiratory/Chest: Decreased breath sounds, CTA Cardiovascular: S1, S2, No murmur Chest: reproducible chest tenderness Abdomen/GI:Soft, Non tender, Bowel sounds present Extremities/Musculoskelatal:normal inspection, 1-2 + B/L LE edema Neurologic/Psych:grossly no focal neurological deficits Skin: normal color, warm Results & Data Vital Signs (Past 12 Hours) Vital Signs Temp Pulse Pulse Resp BP BP Pulse Ox 12/31/18 08:00 37.4 C 85 17 149/77 H 97 12/31/18 03:42 37.3 C 91 H 16 196/110 H 91 12/31/18 01:57 37.1 C 90 14 213/110 H 93 12/31/18 00:59 83 18 195/112 H 99 12/31/18 00:14 88 16 202/114 H 12/31/18 00:07 82 22 96 Laboratory Results Short CBC 12/30/18 12/31/18 Range/Units 20:00 05:55 WBC 4.75 L 6.70 (4.8-10.8) K/uL Hgb 10.2 L 9.2 L (14.0-18.0) g/dL Hct 28.8 L 26.3 L (42-52) % Plt Count 178 155 (130-400) K/uL BMP 12/30/18 12/31/18 20:00 05:55 Sodium 127 L 131 L Potassium 3.5 3.6 Chloride 90 L 95 L Carbon Dioxide 27 22 BUN 46 H 47 H Creatinine 5.97 H* 5.91 H* Glucose 505 H* 184 H Calcium 8.1 L 8.0 L Cardiac Enzymes 12/30/18 12/30/18 12/31/18 Range/Units 20:00 20:00 05:55 Total Creatine Kinase 699 H 400 H (39-308) U/L Troponin I < 0.015 Cancelled (0-0.045) ng/ml Liver Function 12/30/18 Range/Units 20:00 Total Bilirubin 0.3 (0.2-1) mg/dl AST 18 (15-37) U/L ALT 16 (12-78) U/L Alkaline Phosphatase 121 H (45-117) U/L Albumin 2.5 L (3.4-5.0) gm/dl Urine 12/31/18 Range/Units 00:30 Urine Color Yellow Urine Appearance Clear (Clear) Urine pH 8.0 H (4.5-7.5) Ur Specific [place] 1.020 (1.000-1.030) Urine Protein 4+ H (Negative) Urine Glucose (UA) 3+ H (Negative)
--- NOTE | 2018-12-31 11:58 | Consultation Report ---
DATE OF CONSULTATION: 12/31/2018 CONSULTATION FOR: Richard Ndiaye MD. HISTORY OF PRESENT ILLNESS: Xavier is 33 years old, is a patient of Dr. Singh and is well known to our nephrology service. He presented last night for an acute confusional episode and was found wandering apparently by neighbors and has no recall of most of the events of the day. He was noted to be repeating words. He was afebrile. He had some mild hypoxemia on room air. White count was not elevated. His CPK was up to 2699. His sodium was 133. His lactate was 2.23. He had a negative troponin and apparently had an elevated glucose. His blood pressure was elevated and he has been admitted now with metabolic encephalopathy, hypertensive emergency and possible stroke, although he has now cleared up significantly and is less confused but still has no recall of yesterday and has trouble coming up with the date and the day of the week, but knows he is in the hospital, remembers seeing me and can tell me little bit about his history. I have seen this man on several occasions for migraine headaches, which involve either the left or right hemisphere, often occur during dialysis and are characterized by varying degrees of hemisensory deficits, aphasias and confusion followed by headaches and we put him on some verapamil last time in hopes that this would cut down the frequency of them and would also help during his dialysis. It is hard to say if this has been effective, but he claims that it has done a little benefit. Other problems include diabetes, diabetic retinopathy and neuropathy, anemia of chronic disease, chronic end-stage renal failure - on dialysis, and the migraine headaches and he has been extensively evaluated with a number of MRI scans over the past 6 months or so, all of which have been negative and there has been no evidence of extracranial vascular disease or sources of emboli. He has not had any evidence for seizure activity, but again has not been extensively evaluated for this. I refer the reader to the admission history and physical, which outlines his past evaluations quite well, and our prior consultation notes done as early as last month when he was admitted for a left hemispheric migraine. HOME MEDICATIONS: Include amlodipine, atorvastatin, calcium, cholecalciferol, Plavix, Coreg, Lantus, acetaminophen, doxazosin, insulin, Reglan, topiramate and Calan 80 mg in the morning. PAST MEDICAL HISTORY, PAST SURGICAL HISTORY, ETC.: All outlined on the current chart and will not be reiterated here. FAMILY HISTORY: Noncontributory. REVIEW OF SYSTEMS: Reveals occasional headaches since starting on verapamil, but he claims he is a little bit better. We did get a call about a single event during dialysis several weeks ago, but none since. His history capacity today, however, is so limited, I will have to reassess this tomorrow for reliability. Otherwise, he has not been systemically ill. He has had no hospitalizations. He is tolerating dialysis reasonably well. He has no new specific issues referable to head, eyes, ears, nose and throat, cardiovascular, pulmonary, gastrointestinal, genitourinary, musculoskeletal, dermatologic, hematologic, and endocrinologic systems other than those related to his chronic ongoing active medical problems. PHYSICAL EXAMINATION: On exam today, he is awake, alert, oriented superficially. His blood pressure, pulse, and temperature are all within the normal range. I do not feel any pulse irregularity. He has no recall of the events from yesterday. He does remember seeing me. Speech is a little dysarthric. Speech content is grossly intact. He has trouble coming up with the year and the month and the day of the week. He has normal extraocular movements, normal visual rivas, normal facial motility and strength, normal facial sensation. There is no real drift, pronation sign, tremor, tics, or choreiform activity. I see no evidence for lingual or buccal lacerations. He does not complain of any myalgias. There are no obvious issues with shoulder movements that would suggest dislocation. He can move all extremities well. He has a little distal weakness. He is areflexic at the ankles and knees. He has a distal sensory loss, all consistent with his neuropathy. It is hard to know what happened with Xavier yesterday. One could always be concerned about a seizure and I think we need to get an EEG at some point, but for now I would rack this up to a mixed encephalopathy, perhaps with a confusional migraine thrown in, although he has not yet developed a headache, so this would be a diagnosis of exclusion. His imaging studies so far are normal. I would wait a day or so to see how he does and consider yet another MRI. I will try to get an EEG done, but I suspect it will not be done until Wednesday as this is the weekend. In the interim, I simply continue the Calan at 80 mg, I may consider putting on a prolonged-acting at 120. We will be back tomorrow, try to get a little more history from him and sketch his orientation at that point. MTDD
--- NOTE | 2018-12-31 13:53 | Nephrology Consultation ---
Date of Consultation December 31, 2018 Assessment & Plan (1) End-stage renal disease (ESRD): on TRSat HD; compliant w/ txs; uses AVF -for tx today w/ goal UF 2.5 - 3 L as tolerated and probe Present on Admission?: Yes (2) Encephalopathy: per primary service and neuro; for EEG on 01/02 Present on Admission?: Yes (3) Anemia in ESRD (end-stage renal disease): will give epo today since bp are better controlled Present on Admission?: Yes (4) Hypertension: improved/controlled now; some lability since arrival; goal SBP is in 140- 160s today; readings on dialysis today a bit lower -cont current meds; ensure hold parameters -some vol OL on imaging > i-s edema, edema on exam Present on Admission?: Yes History of Present Illness Reason for Consultation: ESRD on HD Requesting Physician: Dr Arteaga Attending Physician: Richard Ndiaye MD History of Present Illness 33 y/o M w/ ESRD on TRSat HD via AVF, DM1 w/ challenging/labile BG, HTN, severe chronic migraines exacerbated by HD admitted overnight for altered mental status after a neighbor found him wandering in yard, behaving abnormally. Pt could give little hx on admission: BG was 505; also had HTN urgency w/ SBP in 200s. He frequently has uncontrolled /labile bp in 180-190s on tx and in clinic. No cause found so far for AMS > tox screen, inf w/u, neuro imaging unrevealing. His sbp was controlled so sbp 190s w/in 7 hrs and to 140s w/in 12 hrs. Last HD was 12/29; I saw him on tx which was uneventful except for his LYON which plagues him at every tx. He has been following w/ neuro to try to improve LYON control but so far w/ little success. His dialysis catheter was removed approximately 5 days back. Pt was hospitalized fro 3 days in November w/ speech difficulty/visual disturbance/ R arm numbness. Neurology saw pt: impression is mixed metabolic toxic encephalopathy potentially superimposed on confusional migraine. Allergies Allergy/AdvReac Type Severity Reaction Status Date / Time No Known Allergies Allergy Verified 12/20/18 10:02 Home Medications Home Medications Medication Instructions Recorded Confirmed Type amlodipine 10 mg PO QAM 09/28/18 12/30/18 History atorvastatin 40 mg PO HS 09/28/18 12/30/18 History calcium acetate 2,668 mg PO TIDM 09/28/18 12/30/18 History cholecalciferol (vitamin D3) 5,000 units PO QAM 09/28/18 12/30/18 History [Vitamin D3] clopidogrel 75 mg PO QAM 09/28/18 12/30/18 History carvedilol [Coreg] 12.5 mg PO BID 11/03/18 12/30/18 History Lantus U-100 Insulin 14 units SUBCUT HS 11/20/18 12/30/18 History acetaminophen [Tylenol Extra 1,000 mg PO Q6H PRN 11/20/18 12/20/18 History Strength] doxazosin 2 mg PO HS 12/20/18 12/30/18 History insulin aspart U-100 [Novolog 7 units SUBCUT UD 12/20/18 12/30/18 History U-100 Insulin aspart] metoclopramide HCl [Reglan] 10 mg PO AC 12/20/18 12/30/18 History topiramate [Topamax] 25 mg PO BID #20 tab 12/20/18 12/30/18 Rx verapamil [Calan] 80 mg PO QAM 12/20/18 12/30/18 History Patient History Medical History Esophagitis ESRD (end stage renal disease) (Chronic) TIA (transient ischemic attack) (Chronic) Anemia in chronic kidney disease (CKD) (Chronic) Nephrotic syndrome due to diabetes mellitus (Chronic) DVT prophylaxis Fatty liver (Chronic) Charcot foot due to diabetes mellitus (Chronic) Nausea and vomiting (Chronic) Diabetic nephropathy (Chronic) Diabetic neuropathy (Chronic) Diabetic retinopathy (Chronic) 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) Anemia (Chronic) Hypertension (Chronic) CKD (chronic kidney disease), stage III (Resolved) Hyperglycemia (Resolved) Neurological symptoms (Resolved) Diabetes Surgical History History of esophagogastroduodenoscopy (EGD) AV fistula (Chronic) Hx of eye surgery Family History Mother Hypertension Grandfather (Maternal) Diabetes Grandmother (Maternal) Diabetes Grandmother (Paternal) Diabetes Other Heart disease Social History Preferred Language: Mexican Communication Ability: Impaired Visual Impairment: Limited Beliefs That Will Affect Care: None marital status: single Current Living Situation: Alone current occupational status: employed Feels Safe at Home: Yes Smoking Status: Unknown if ever smoked Hx Alcohol Use: No Hx Substance Use: No Review of Systems Review of Systems: Unobtainable due to cognitive status (pt does state he feels "confused," that LYON is "ok," that he has no cp/sob/edema; cannot recall events past 24 hrs) Physical Exam 2 Constitutional: well developed, well nourished and + ill appearing; no acute distress quiet on ra Eyes: EOM intact bilaterally ENMT: Ears: no external ear abnormality Nose: no external nose abnormality Mouth: + dry oral mucous membranes Neck: no nuchal rigidity Respiratory: normal respiratory effort Auscultation: + diminished lung sounds Cardiovascular: Rate/Rhythm: regular rate and regular rhythm Extremities: + edema (trace BL ankle edema) Gastrointestinal (Abdomen): Inspection/Auscultation: normal bowel sounds Percussion/Palpation: abdomen soft; abdomen nontender Musculoskeletal: soria Skin: no rashes, warm and dry Neurologic: soria, limited and delayed but simple and appropriate speech, no tremor Psychiatric: A+Ox3, euthymic affect Results & Data Vital Signs (Past 12 Hours) Vital Signs Temp Pulse Resp BP Pulse Ox 12/31/18 12:03 36.8 C 73 17 123/69 98 12/31/18 08:00 37.4 C 85 17 149/77 H 97 12/31/18 03:42 37.3 C 91 H 16 196/110 H 91 12/31/18 01:57 37.1 C 90 14 213/110 H 93 Laboratory Results Abnormal lab results 12/30/18 12/30/18 12/30/18 Range/Units 20:00 20:00 20:42 WBC 4.75 L (4.8-10.8) K/uL RBC 3.43 L (4.7-6.1) M/uL Hgb 10.2 L (14.0-18.0) g/dL POC Hgb (14.0-18.0) g/dl Hct 28.8 L (42-52) % POC Hct (42-52) % Immature Gran # (Auto) (0.00-0.02) K/uL Lymph # (Auto) 0.65 L (1.2-3.4) K/uL VBG pH (7.36-7.41) VBG pCO2 (38-50) mmHg POC Sodium (135-144) mEq/L Sodium 127 L (136-145) mmol/L POC Chloride (101-112) mEq/L Chloride 90 L (98-107) mmol/L Anion Gap (3-11) POC BUN (7-18) mg/dl BUN 46 H (7-18) mg/dl Creatinine 5.97 H* (0.6-1.4) mg/dl POC Creatinine (0.6-1.3) mg/dl BUN/Creatinine Ratio 7.7 L (10-20) Glucose 505 H* (70-99) mg/dl POC Glucose (70-99) POC Glucose (other) (70-99) mg/dl POC Lactic Acid Victor Manuel 2.23 H (0.90-1.70) mmol/L Calcium 8.1 L (8.5-10.1) mg/dl POC Ioniz Calcium Ale (1.12-1.32) mmol/l Alkaline Phosphatase 121 H (45-117) U/L Total Creatine Kinase 699 H (39-308) U/L Albumin 2.5 L (3.4-5.0) gm/dl Albumin/Globulin Ratio 0.6 L (0.9-2) Urine pH (4.5-7.5) Urine Protein (Negative) Urine Glucose (UA) (Negative) Urine Blood (Negative) Urine RBC (Auto) (0-4) /hpf U Epithel Cells (Auto) (0-5) /lpf 12/30/18 12/30/18 12/30/18 Range/Units 20:46 20:49 23:23 WBC (4.8-10.8) K/uL RBC (4.7-6.1) M/uL Hgb (14.0-18.0) g/dL POC Hgb 9.2 L (14.0-18.0) g/dl Hct (42-52) % POC Hct 27 L (42-52) % Immature Gran # (Auto) (0.00-0.02) K/uL Lymph # (Auto) (1.2-3.4) K/uL VBG pH 7.34 L (7.36-7.41) VBG pCO2 51 H (38-50) mmHg POC Sodium 129 L (135-144) mEq/L Sodium (136-145) mmol/L POC Chloride 89 L (101-112) mEq/L Chloride (98-107) mmol/L Anion Gap (3-11) POC BUN 39 H (7-18) mg/dl BUN (7-18) mg/dl Creatinine (0.6-1.4) mg/dl POC Creatinine 5.9 H* (0.6-1.3) mg/dl BUN/Creatinine Ratio (10-20) Glucose (70-99) mg/dl POC Glucose 68 L* (70-99) POC Glucose (other) 391 H* (70-99) mg/dl POC Lactic Acid Victor Manuel (0.90-1.70) mmol/L Calcium (8.5-10.1) mg/dl POC Ioniz Calcium Ale 1.03 L (1.12-1.32) mmol/l Alkaline Phosphatase (45-117) U/L Total Creatine Kinase (39-308) U/L Albumin (3.4-5.0) gm/dl Albumin/Globulin Ratio (0.9-2) Urine pH (4.5-7.5) Urine Protein (Negative) Urine Glucose (UA) (Negative) Urine Blood (Negative) Urine RBC (Auto) (0-4) /hpf U Epithel Cells (Auto) (0-5) /lpf 12/31/18 12/31/18 12/31/18 Range/Units 00:30 03:45 05:55 WBC (4.8-10.8) K/uL RBC (4.7-6.1) M/uL Hgb (14.0-18.0) g/dL POC Hgb (14.0-18.0) g/dl Hct (42-52) % POC Hct (42-52) % Immature Gran # (Auto) (0.00-0.02) K/uL Lymph # (Auto) (1.2-3.4) K/uL VBG pH (7.36-7.41) VBG pCO2 (38-50) mmHg POC Sodium (135-144) mEq/L Sodium 131 L (136-145) mmol/L POC Chloride (101-112) mEq/L Chloride 95 L (98-107) mmol/L Anion Gap 14.0 H (3-11) POC BUN (7-18) mg/dl BUN 47 H (7-18) mg/dl Creatinine 5.91 H* (0.6-1.4) mg/dl POC Creatinine (0.6-1.3) mg/dl BUN/Creatinine Ratio 8.0 L (10-20) Glucose 184 H (70-99) mg/dl POC Glucose 137 H (70-99) POC Glucose (other) (70-99) mg/dl POC Lactic Acid Victor Manuel (0.90-1.70) mmol/L Calcium 8.0 L (8.5-10.1) mg/dl POC Ioniz Calcium Ale (1.12-1.32) mmol/l Alkaline Phosphatase (45-117) U/L Total Creatine Kinase 400 H (39-308) U/L Albumin (3.4-5.0) gm/dl Albumin/Globulin Ratio (0.9-2) Urine pH 8.0 H (4.5-7.5) Urine Protein 4+ H (Negative) Urine Glucose (UA) 3+ H (Negative) Urine Blood 2+ H (Negative) Urine RBC (Auto) 5-10 H (0-4) /hpf U Epithel Cells (Auto) 10-20 H (0-5) /lpf 12/31/18 12/31/18 12/31/18 Range/Units 05:55 07:13 11:25 WBC (4.8-10.8) K/uL RBC 3.13 L (4.7-6.1) M/uL Hgb 9.2 L (14.0-18.0) g/dL POC Hgb (14.0-18.0) g/dl Hct 26.3 L (42-52) % POC Hct (42-52) % Immature Gran # (Auto) 0.03 H (0.00-0.02) K/uL Lymph # (Auto) 0.86 L (1.2-3.4) K/uL VBG pH (7.36-7.41) VBG pCO2 (38-50) mmHg POC Sodium (135-144) mEq/L Sodium (136-145) mmol/L POC Chloride (101-112) mEq/L Chloride (98-107) mmol/L Anion Gap (3-11) POC BUN (7-18) mg/dl BUN (7-18) mg/dl Creatinine (0.6-1.4) mg/dl POC Creatinine (0.6-1.3) mg/dl BUN/Creatinine Ratio (10-20) Glucose (70-99) mg/dl POC Glucose 207 H 219 H (70-99) POC Glucose (other) (70-99) mg/dl POC Lactic Acid Victor Manuel (0.90-1.70) mmol/L Calcium (8.5-10.1) mg/dl POC Ioniz Calcium Ale (1.12-1.32) mmol/l Alkaline Phosphatase (45-117) U/L Total Creatine Kinase (39-308) U/L Albumin (3.4-5.0) gm/dl Albumin/Globulin Ratio (0.9-2) Urine pH (4.5-7.5) Urine Protein (Negative) Urine Glucose (UA) (Negative) Urine Blood (Negative) Urine RBC (Auto) (0-4) /hpf U Epithel Cells (Auto) (0-5) /lpf Diagnostic Findings Brain MRI/ head MRA no acute process CT abd/pelvis > mild body wall anasarca, BL pl effusions w/ probable plm edema CXR > cardiomegaly, trace pl effusions, i-s pulmonary edema (1) Hypertension Hypertension type: unspecified Qualified Code(s): I10 - Essential (primary) hypertension
[2018-12-31] MEDS: HEPARIN SOD (PORCINE) 1000 UNIT/ML 10 ML VIAL IV SCH ×2 (14:20→19:11)
--- NOTE | 2018-12-31 14:51 | Dialysis Progress Note ---
Date of Service December 31, 2018 Assessment & Plan (1) End-stage renal disease (ESRD): on TRSat HD; compliant w/ txs; uses AVF -for tx today w/ goal UF 2.5 - 3 L as tolerated and probe >> next tx on ; consider 01/02 tx if bp remains a challenge (2) Encephalopathy: per primary service and neuro; for EEG on 01/02 (3) Anemia in ESRD (end-stage renal disease): had epo today since bp are better controlled (4) Hypertension: improved/controlled now; some lability since arrival; goal SBP is in 140- 160s today; readings on dialysis today a bit lower -cont current meds; ensure hold parameters -some vol OL on imaging > i-s edema, edema on exam Subjective seen on dialysis; LYON not prominent currently; tired, resting; no sob, no chest pain, admits still confused Review of Systems Review of Systems: Unobtainable due to cognitive status (except as above) Physical Exam Constitutional: well developed, well nourished and + ill appearing; no acute distress Eyes: EOM intact bilaterally ENMT: Ears: no external ear abnormality Nose: no external nose abnormality Mouth: + dry oral mucous membranes Neck: no nuchal rigidity Respiratory: normal respiratory effort Auscultation: + diminished lung sounds Cardiovascular: Rate/Rhythm: regular rate and regular rhythm Extremities: + edema (trace BL ankle edema) Gastrointestinal (Abdomen): Inspection/Auscultation: normal bowel sounds Percussion/Palpation: abdomen soft; abdomen nontender Skin: no rashes, warm and dry Psychiatric: A+Ox3, euthymic affect Results & Data Vital Signs (Past 12 Hours) Vital Signs Temp Pulse Resp BP Pulse Ox 12/31/18 12:03 36.8 C 73 17 123/69 98 12/31/18 08:00 37.4 C 85 17 149/77 H 97 12/31/18 03:42 37.3 C 91 H 16 196/110 H 91 Laboratory Results reviewed (1) Hypertension Hypertension type: unspecified Qualified Code(s): I10 - Essential (primary) hypertension
[2019-01-01] MEDS: HEPARIN SOD 5,000 UNIT/0.5 ML VIAL SQ SCH ×3 (05:25→22:33)
[2019-01-01 07:05] LABS: Hematocrit (blood only) 28.3 % (42-52); Hemoglobin 9.9 g/dL (14.0-18.0); Mean Platelet Volume 10.3 fL (7.4-10.4); Platelet Count 189 K/uL (130-400); RDW Coefficient of Variation 14.7 % (11.5-14.5); Red Blood Count 3.33 M/uL (4.7-6.1); White Blood Count 3.43 K/uL (4.8-10.8)
[2019-01-01] MEDS: HEPARIN SOD (PORCINE) 1000 UNIT/ML 10 ML VIAL IV SCH (07:24)
[2019-01-01 07:40] LABS: BUN Creatinine Ratio 5.6 (10-20); Calcium 8.4 mg/dl (8.5-10.1); Creatinine Clr Calc Pharmacy 20.1 ml/min; Est GFR (Non-African American) 13.8; Phosphorus 4.5 mg/dl (2.5-4.9)
[2019-01-01] MEDS: CHOLECALCIFEROL 1,000 UNITS TAB PO SCH (07:57)
[2019-01-01] MEDS: CARVEDILOL 12.5 MG TAB PO SCH ×2 (07:57→20:29)
[2019-01-01] MEDS: AMLODIPINE BESYLATE 5 MG TAB PO SCH (07:57)
[2019-01-01] MEDS: CALCIUM ACETATE 667 MG CAP PO SCH ×3 (07:57→16:45)
[2019-01-01] MEDS: CLOPIDOGREL BISULFATE 75 MG TAB PO SCH (07:58)
[2019-01-01] MEDS: DOCUSATE SODIUM 100 MG CAP PO SCH (07:58)
[2019-01-01] MEDS: VERAPAMIL HCL 40 MG TAB PO SCH (07:58)
[2019-01-01] MEDS: ASPIRIN 81 MG ECTAB PO SCH (07:58)
[2019-01-01] MEDS: INSULIN ASPART 100 UNITS/ML 3 ML PEN SC SCH ×4 (07:59→22:29)
[2019-01-01] MEDS: TOPIRAMATE 25 MG TAB PO SCH ×2 (07:59→20:29)
[2019-01-01] MEDS: ACETAMINOPHEN 325 MG TAB PO PRN (08:01)
[2019-01-01] MEDS: INSULIN GLARGINE SOLOSTAR 100 UNITS/ML 3 ML PEN SC SCH (08:04)
[2019-01-01] MEDS ORDERED: POTASSIUM CHLORIDE 10 MEQ TABCR PO STA (08:15)
[2019-01-01] MEDS: POTASSIUM CHLORIDE / WTR 10 MEQ/100 ML PLCT IV SCH ×2 (09:36→10:07)
--- NOTE | 2019-01-01 10:25 | Communication Note ---
Date of Service: January 01, 2019 I saw Xavier today, reviewed his chart, did a brief examination and him pleased that he is nearly back to his baseline. He remembers everything about yesterday but still is totally amnestic for the events occurred on Wednesday His basic your chemistry screen etc. coming back to normal for him with his chronic end-stage renal disease and his hyperglycemia is now resolved. Examination remains neurologically normal with the exception of his peripheral neuropathy Cause for his confusional state remains unclear this could be acute confusional migraine can occur in young males particularly in individuals who have a history of classic migraines such as Xavier but could have also been a seizure EEG is not been done but will likely be done tomorrow when the lay out technician returns after the weekend My recommendations would be that he be held overnight get EEG in the morning, perhaps have his dialysis done here in the hospital which she is due for anyway I will check him tomorrow afternoon. I will continue the verapamil at the current dose until we have a chance to review him on an outpatient basis in terms of his headache frequency If the EEG reveals evidence for potentially epileptogenic activity and we may end up having to treat him with Keppra based on its renal clearance but this is a decision that remains in the future pending results of the EEG and is conceivable we may need to do a 72-hour ambulatory recording to clarify the issue regarding potential episodic partial seizures Bam Benson MD
[2019-01-01] MEDS: OXYCODONE HCL IR 5 MG TAB (IMMEDIATE RELEASE) PO PRN ×3 (11:41→23:47)
--- NOTE | 2019-01-01 12:15 | Hospitalist Progress Note ---
Date of Service January 01, 2019 Assessment & Plan (1) Encephalopathy: (2) Altered mental status: Metabolic encephalopathy--Resolved Possible Confusion Migraine Hypertensive Urgency--Resolved In setting of Transient Hypoxia, Hyperglycemia MRI Brain:No acute intracranial abnormality. MRA Brain:No significant stenosis, occlusion, or aneurysm within the [place] of [place]. Toxicology Screen: Negative Ammonia levels: normal Mental status back to baseline EEG: pending Continue Verapamil, Topiramate Appreciate Neurology Input Neuro Checks Continue to monitor (3) Hypertensive urgency: Presented with elevated BP H/O HTN Could have missed with HTN medications prior to admission Continue amlodipine, carvedilol BP stable now (4) Hyperglycemia: (5) Diabetes mellitus type 1 with complications: A1c: 9.6 on 11/06/18 Home med list: Insulin glargine 16 units daily with novolog sliding scale In ER glucose: 505. beta hydroxybutyric acid: 0.6. VBG: pH; 7.3, CO2: 51, O2: 34, HCO3: 27 Continue ISS, basal Insulin Pharmacy Glycemic control consult Monitor BGs (6) Hypoxia: CXR: Cardiomegaly and interstitial pulmonary edema. Trace pleural eff usions. Hypoxemic respiratory failure secondary to pulmonary congestion Likely due to mild volume overload Volume status managed through dialysis Saturating well on room air (7) End-stage renal disease (ESRD): On HD on Wed, Wed, Wed schedule Appreciate Nephrology Input Dialysis as per Nephrology (8) Anemia in ESRD (end-stage renal disease): Hb near baseline monitor H&H Hyponatremia ? Dilutional Resolved Monitor sodium levels DVT Px: Heparin SQ Code Status Full Code Disposition: Expect to discharge home when stable Patient's father:Mr. Gilson Hicks, contact #[phone]. Subjective Patient is seen and examined at bedside Doing much better today Mental status seemed to be back to baseline Reports mild left sided headache Offers no other complaints Denies chest pain, SOB, dizziness, nausea Review of Systems Review of Systems: All systems reviewed & are unremarkable except as noted in HPI & below Physical Exam Physical Exam: Physical Exam: Vitals signs as noted above General Appearance:Moderately built and nourished, no apparent distress Head: normocephalic, Atraumatic Eyes: normal inspection, EOMI Neck: supple, Trachea midline Respiratory/Chest: Decreased breath sounds, CTA Cardiovascular: S1, S2, No murmur Abdomen/GI:Soft, Non tender, Bowel sounds present Extremities/Musculoskelatal:normal inspection, 1-2 + B/L LE edema Neurologic/Psych:grossly no focal neurological deficits Skin: normal color, warm Results & Data Vital Signs (Past 12 Hours) Vital Signs Temp Pulse Pulse Resp BP Pulse Ox 01/01/19 11:52 37.1 C 70 16 134/85 97 01/01/19 08:00 68 01/01/19 06:57 36.9 C 66 20 157/90 H 96 01/01/19 04:18 36.9 C 70 20 138/76 96 Laboratory Results Short CBC 01/01/19 Range/Units 06:43 WBC 3.43 L (4.8-10.8) K/uL Hgb 9.9 L (14.0-18.0) g/dL Hct 28.3 L (42-52) % Plt Count 189 (130-400) K/uL BMP 01/01/19 06:43 Sodium 137 Potassium 3.0 L D Chloride 100 Carbon Dioxide 31 BUN 28 H Creatinine 5.06 H* D Glucose 83 Calcium 8.4 L Cardiac Enzymes 01/01/19 Range/Units 06:43 Total Creatine Kinase 145 (39-308) U/L
--- NOTE | 2019-01-01 14:30 | Pharmacy Report ---
Pharmacy Glycemic Short Note 2 - Date of Service January 01, 2019 - Glycemic Short BSG Results (Last 24 hours): 12/31/18 12/31/18 01/01/19 17:55 20:21 06:43 Glucose 83 POC Glucose 142 H 99 01/01/19 01/01/19 07:28 11:09 Glucose POC Glucose 92 87 OUTPATIENT ANTIDIABETIC REGIMEN: * Lantus 14 units SQ qHS * Novolog 7 units SQ with meals * A1c = 9.6% 11/06/18 (unreliable due to ESRD - HD) ASSESSMENT: 01/01: * Mr. Hicks received 28 units of insulin yesterday: * 20 units of basal * 8 units of bolus * BSGs have improved significantly and are now below goal (92, 87 mg/dL) therefore I will decrease basal and bolus insulin: * will resume home dose of Lantus 14 units daily * will loosen carb ratio from 9 to 11 since mealtime BSGs are trending downward. 12/31: * 33 yr old T1DM male admitted for encephalopathy, altered mental status. * Patient is well known to the glycemic service. During an admission from November 2018 he required ~46 units of insulin per day, however BSGs did fluctuate. * He was administered a dose of 15 units IV regular insulin last night. Novolog sliding scale was initiated @ 0400 this morning. * Unable to confirm if patient took any Lantus yesterday due to AMS. Per home me d rec, he takes his dose in the evening so it seems unlikely. I will give a dose of Lantus now. Will attempt to work patient back to qHS dosing. I would not be surprised if BSGs remain elevated throughout the day since patient is basal deficient. * Lunch BSG elevated at 219 mg/dL. Patient not given coverage per he was taken off floor for HD. I requested that BSG be checked and covered with Novolog once patient returns to floor. PLAN FOR INPATIENT GLYCEMIC CONTROL: * Basal insulin * Lantus 14 units SQ daily * Dose for 01/02 is on hold pending fasting BSG * Bolus insulin - loosen carb coverage * NovoLog per scale ACHS or Q6hrs while NPO * Goal Range: Low 110 mg/dL - High 140 mg/dL * Correction Factor: 25 mg/dL/unit * Nutritional / Prandial insulin per carb ratio of 1 unit per 11 grams CHO consumed
[2019-01-01] MEDS ORDERED: POTASSIUM CHLORIDE 10 MEQ TABCR PO ONE (16:00)
[2019-01-01 20:32] LABS: BUN Creatinine Ratio 5.5 (10-20); Calcium 8.3 mg/dl (8.5-10.1); Creatinine Clr Calc Pharmacy 15.7 ml/min; Est GFR (African American) 11.8; Est GFR (Non-African American) 10.2; Potassium 4.2 mmol/L (3.5-5.1)
[2019-01-02] MEDS: HEPARIN SOD 5,000 UNIT/0.5 ML VIAL SQ SCH ×2 (05:38→13:45)
[2019-01-02 06:54] LABS: Hematocrit (blood only) 29.9 % (42-52); Hemoglobin 10.2 g/dL (14.0-18.0)
[2019-01-02 07:08] VITALS: TEMP 98.2
[2019-01-02 07:38] LABS: BUN Creatinine Ratio 5.4 (10-20); Calcium 8.5 mg/dl (8.5-10.1); Creatinine Clr Calc Pharmacy 14.6 ml/min; Est GFR (African American) 10.8; Est GFR (Non-African American) 9.3; Potassium 4.4 mmol/L (3.5-5.1)
[2019-01-02] MEDS: TOPIRAMATE 25 MG TAB PO SCH (08:11)
[2019-01-02] MEDS: CARVEDILOL 12.5 MG TAB PO SCH (08:11)
[2019-01-02] MEDS: VERAPAMIL HCL 40 MG TAB PO SCH (08:11)
[2019-01-02] MEDS: AMLODIPINE BESYLATE 5 MG TAB PO SCH (08:11)
[2019-01-02] MEDS: CALCIUM ACETATE 667 MG CAP PO SCH ×2 (08:11→11:46)
[2019-01-02] MEDS: CHOLECALCIFEROL 1,000 UNITS TAB PO SCH (08:11)
[2019-01-02] MEDS: ASPIRIN 81 MG ECTAB PO SCH (08:11)
[2019-01-02] MEDS: DOCUSATE SODIUM 100 MG CAP PO SCH (08:12)
[2019-01-02] MEDS: CLOPIDOGREL BISULFATE 75 MG TAB PO SCH (08:12)
[2019-01-02] MEDS: INSULIN ASPART 100 UNITS/ML 3 ML PEN SC SCH ×2 (08:15→11:45)
[2019-01-02] MEDS: ACETAMINOPHEN 325 MG TAB PO PRN (09:59)
[2019-01-02] MEDS: INSULIN GLARGINE SOLOSTAR 100 UNITS/ML 3 ML PEN SC SCH (10:11)
--- NOTE | 2019-01-02 10:53 | Procedure Note ---
EEG Procedure Note Date of Service January 02, 2019 Start / End Times Start Time: 0830 End Time: 0900 Referring Physician Bam Benson MD History Acute confusiona episode with amnesia questioni seizure Home Medication List Home Medications Medication Instructions Recorded Confirmed Type amlodipine 10 mg PO QAM 09/28/18 12/30/18 History atorvastatin 40 mg PO HS 09/28/18 12/30/18 History calcium acetate 2,668 mg PO TIDM 09/28/18 12/30/18 History cholecalciferol (vitamin D3) 5,000 units PO QAM 09/28/18 12/30/18 History [Vitamin D3] clopidogrel 75 mg PO QAM 09/28/18 12/30/18 History carvedilol [Coreg] 12.5 mg PO BID 11/03/18 12/30/18 History Lantus U-100 Insulin 14 units SUBCUT HS 11/20/18 12/30/18 History acetaminophen [Tylenol Extra 1,000 mg PO Q6H PRN 11/20/18 12/20/18 History Strength] doxazosin 2 mg PO HS 12/20/18 12/30/18 History insulin aspart U-100 [Novolog 7 units SUBCUT UD 12/20/18 12/30/18 History U-100 Insulin aspart] metoclopramide HCl [Reglan] 10 mg PO AC 12/20/18 12/30/18 History topiramate [Topamax] 25 mg PO BID #20 tab 12/20/18 12/30/18 Rx verapamil [Calan] 80 mg PO QAM 12/20/18 12/30/18 History Inpatient Medication List Acetaminophen (Tylenol) 650 mg PO Q4H PRN PRN Reason: Pain or Fever Stop: 01/30/19 01:45 Last Admin: 01/02/19 09:59 Dose: 650 mg Documented by: [id number] Admin: 01/01/19 08:01 Dose: 650 mg Documented by: [id number] Amlodipine Besylate ([facility]asc) [facility] [place] Stop: 01/30/19 03:59 Last Admin: 01/02/19 08:11 Dose: 10 mg Documented by: [id number] Admin: 01/01/19 07:57 Dose: 10 mg Documented by: [id number] Admin: 12/31/18 04:56 Dose: 10 mg Documented by: [id number] Aspirin (Ecotrin Ectab) 81 mg PO QAM [facility] Stop: 01/30/19 01:45 Last Admin: 01/02/19 08:11 Dose: 81 mg Documented by: [id number] Admin: 01/01/19 07:58 Dose: 81 mg Documented by: [id number] Admin: 12/31/18 02:11 Dose: 81 mg Documented by: [id number] Calcium Acetate (Phoslo) 2,668 mg PO TIDM [facility] Stop: 01/30/19 07:59 Last Admin: 01/02/19 08:11 Dose: 2,668 mg Documented by: [id number] Admin: 01/01/19 16:45 Dose: 2,668 mg Documented by: [id number] Admin: 01/01/19 11:39 Dose: 2,668 mg Documented by: [id number] Admin: 01/01/19 07:57 Dose: 2,668 mg Documented by: [id number] Admin: 12/31/18 17:58 Dose: 2,668 mg Documented by: [id number] Admin: 12/31/18 12:54 Dose: Not Given Documented by: [id number] Admin: 12/31/18 09:43 Dose: 2,668 mg Documented by: [id number] Carvedilol (Coreg) 12.5 mg PO BID [facility] Stop: 01/30/19 08:59 Last Admin: 01/02/19 08:11 Dose: 12.5 mg Documented by: [id number] Admin: 01/01/19 20:29 Dose: 12.5 mg Documented by: [id number] Admin: 01/01/19 07:57 Dose: 12.5 mg Documented by: [id number] Admin: 12/31/18 21:47 Dose: 12.5 mg Documented by: [id number] Admin: 12/31/18 09:44 Dose: 12.5 mg Documented by: [id number] Clopidogrel Bisulfate (Plavix) [facility] [place] Stop: 01/31/19 08:59 Last Admin: 01/02/19 08:12 Dose: 75 mg Documented by: [id number] Admin: 01/01/19 07:58 Dose: 75 mg Documented by: [id number] Docusate Sodium (Colace) 100 mg PO DAILY [facility] Stop: 01/30/19 00:39 Last Admin: 01/02/19 08:12 Dose: Not Given Documented by: [id number] Admin: 01/01/19 07:58 Dose: 100 mg Documented by: [id number] Admin: 12/31/18 09:44 Dose: 100 mg Documented by: [id number] Admin: 12/31/18 02:09 Dose: 100 mg Documented by: [id number] Heparin Sodium (Porcine) (Heparin Sodium (Porcine)) 5,000 units SQ Q8 [facility] Stop: 01/30/19 05:59 Last Admin: 01/02/19 05:38 Dose: Not Given Documented by: [id number] Admin: 01/01/19 22:33 Dose: 5,000 units Documented by: [id number] Cosigned by: [id number] Admin: 01/01/19 14:05 Dose: 5,000 units Documented by: [id number] Cosigned by: [id number] Admin: 01/01/19 05:25 Dose: 5,000 units Documented by: [id number] Cosigned by: [id number] Admin: 12/31/18 21:47 Dose: 5,000 units Documented by: [id number] Cosigned by: [id number] Admin: 12/31/18 17:58 Dose: 5,000 units Documented by: [id number] Cosigned by: [id number] Admin: 12/31/18 04:58 Dose: 5,000 units Documented by: [id number] Cosigned by: [id number] Insulin Aspart (Novolog Flexpen) 0 units SC ACHS [facility] Stop: 01/30/19 16:29 Last Admin: 01/02/19 08:15 Dose: 6 units Documented by: [id number] Cosigned by: [id number] Admin: 01/01/19 22:29 Dose: Not Given Documented by: [id number] Cosigned by: [id number] Admin: 01/01/19 16:45 Dose: 3 units Documented by: [id number] Cosigned by: [id number] Admin: 01/01/19 11:40 Dose: 7 units Documented by: [id number] Cosigned by: [id number] Admin: 01/01/19 07:59 Dose: 2 units Documented by: [id number] Cosigned by: [id number] Admin: 12/31/18 21:51 Dose: Not Given Documented by: [id number] Cosigned by: [id number] Admin: 12/31/18 17:59 Dose: 5 units Documented by: [id number] Cosigned by: [id number] Insulin Glargine (Lantus Solostar Pen) 14 units SC DAILY [facility]; Protocol Stop: 01/31/19 08:59 Last Admin: 01/02/19 10:11 Dose: 14 units Documented by: [id number] Cosigned by: [id number] Admin: 01/01/19 08:04 Dose: 14 units Documented by: [id number] Cosigned by: [id number] Oxycodone HCl (Roxicodone Immediate Rel) 5 mg PO Q4H PRN PRN Reason: Pain Stop: 01/14/19 01:45 Last Admin: 01/01/19 23:47 Dose: 5 mg Documented by: [id number] Admin: 01/01/19 16:48 Dose: 5 mg Documented by: [id number] Admin: 01/01/19 11:41 Dose: 5 mg Documented by: [id number] Topiramate (Topamax) 25 mg PO BID [facility] Stop: 01/30/19 08:59 Last Admin: 01/02/19 08:11 Dose: 25 mg Documented by: [id number] Admin: 01/01/19 20:29 Dose: 25 mg Documented by: [id number] Admin: 01/01/19 07:59 Dose: 25 mg Documented by: [id number] Admin: 12/31/18 21:47 Dose: 25 mg Documented by: [id number] Admin: 12/31/18 09:44 Dose: 25 mg Documented by: [id number] Verapamil HCl (Calan) 80 mg PO [facility] Stop: 01/30/19 08:59 Last Admin: 01/02/19 08:11 Dose: 80 mg Documented by: [id number] Admin: 01/01/19 07:58 Dose: 80 mg Documented by: [id number] Admin: 12/31/18 09:43 Dose: 80 mg Documented by: [id number] Vitamin D (Vitamin D3) 5,[facility] [place] Stop: 01/30/19 08:59 Last Admin: 01/02/19 08:11 Dose: 5,000 units Documented by: [id number] Admin: 01/01/19 07:57 Dose: 5,000 units Documented by: [id number] Admin: 12/31/18 09:43 Dose: 5,000 units Documented by: [id number] Discontinued Medications Carvedilol (Coreg) 12.5 mg PO NOW ONE Stop: 12/31/18 01:44 Last Admin: 12/31/18 02:10 Dose: 12.5 mg Documented by: [id number] Clopidogrel Bisulfate (Plavix) 75 mg PO NOW STA Stop: 12/31/18 01:44 Last Admin: 12/31/18 02:10 Dose: 75 mg Documented by: [id number] Dextrose (Dextrose 50%) 25 ml IV NOW ONE Stop: 12/30/18 23:41 Last Admin: 12/31/18 00:01 Dose: 50 ml Documented by: [id number] Dextrose (Dextrose 50%) Confirm Administered Dose 50 ml IV .STK-MED ONE Stop: 12/30/18 23:48 Last Admin: 12/31/18 01:50 Dose: Not Given Documented by: [id number] Doxazosin Mesylate (Cardura) 2 mg PO NOW STA Stop: 12/31/18 00:36 Last Admin: 12/31/18 01:49 Dose: 2 mg Documented by: [id number] Epoetin Clint (Procrit) 10,000 units IV TODAY@1030 [facility] Stop: 12/31/18 18:00 Last Admin: 12/31/18 15:11 Dose: 10,000 units Documented by: [id number] Heparin Sodium (Porcine) (Heparin Iv Bolus) 400 units IV Q1H [facility] Stop: 12/31/18 12:31 Last Admin: 01/01/19 07:24 Dose: Not Given Documented by: [id number] Admin: 12/31/18 19:11 Dose: Not Given Documented by: [id number] Admin: 12/31/18 14:20 Dose: Not Given Documented by: [id number] Heparin Sodium (Porcine) (Heparin Iv Bolus) 1,000 units IV ONE ONE Stop: 12/31/18 10:46 Last Admin: 12/31/18 12:40 Dose: Not Given Documented by: [id number] Furosemide 80 mg/ Syringe 8 mls @ 4 mls/min IV ONE ONE Stop: 12/30/18 22:32 Last Admin: 12/30/18 23:09 Dose: 4 mls/min Documented by: [id number] Promethazine HCl 12.5 mg/ (Sodium Chloride) 50.5 mls @ 202 mls/hr IV NOW STA Stop: 12/31/18 02:00 Last Admin: 12/31/18 02:04 Dose: Not Given Documented by: [id number] Potassium Chloride (K Helder / Wtr) 10 meq in 100 mls @ 100 mls/hr IV Q1H [facility] Stop: 01/01/19 10:29 Last Admin: 01/01/19 10:07 Dose: Not Given Documented by: [id number] Infusion: 01/01/19 09:58 Dose: 0 mls/hr Documented by: [id number] Admin: 01/01/19 09:36 Dose: 100 mls/hr Documented by: [id number] Insulin Aspart (Novolog Flexpen) 0 units SC Q4 [facility] Stop: 01/30/19 03:59 Last Admin: 12/31/18 09:42 Dose: 3 units Documented by: [id number] Cosigned by: [id number] Admin: 12/31/18 04:36 Dose: Not Given Documented by: [id number] Cosigned by: [id number] Insulin Glargine (Lantus Solostar Pen) 15 units SC ONE ONE Stop: 12/31/18 08:01 Last Admin: 12/31/18 09:42 Dose: 15 units Documented by: [id number] Cosigned by: [id number] Insulin Glargine (Lantus Solostar Pen) 0 units SC 1700 ONE; Protocol Stop: 12/31/18 17:01 Last Admin: 12/31/18 18:00 Dose: 5 units Documented by: [id number] Cosigned by: [id number] Insulin Human Regular (Novolin R U-100 Per Unit) 15 units IV NOW STA Stop: 12/30/18 21:39 Last Admin: 12/30/18 21:50 Dose: 15 units Documented by: [id number] Cosigned by: [id number] Ipratropium [place] (Atrovent 0.02% 0.5mg/2.5ml) 0.5 mg INH NOW STA Stop: 12/30/18 23:48 Last Admin: 12/30/18 23:59 Dose: 0.5 mg Documented by: [id number] Levalbuterol HCl (Xopenex 1.25mg/0.5ml Neb) 1.25 mg INH NOW STA Stop: 12/30/18 23:48 Last Admin: 12/30/18 23:59 Dose: 1.25 mg Documented by: [id number] Metoprolol Tartrate (Lopressor) 2.5 mg IV NOW STA Stop: 12/30/18 22:37 Last Admin: 12/30/18 23:07 Dose: 5 mg Documented by: [id number] Ondansetron HCl (Zofran) 4 mg IV NOW STA Stop: 12/30/18 20:37 Last Admin: 12/30/18 20:43 Dose: 4 mg Documented by: [id number] Polyethylene Glycol (Miralax Powder Packet) 17 gm PO NOW STA Stop: 12/31/18 00:50 Last Admin: 12/31/18 02:06 Dose: Not Given Documented by: [id number] Potassium Chloride (Klor-Con M10) 40 meq PO NOW STA Stop: 01/01/19 08:16 Last Admin: 01/01/19 09:36 Dose: 40 meq Documented by: [id number] Potassium Chloride (Klor-Con M10) 40 meq PO ONE ONE Stop: 01/01/19 16:01 Last Admin: 01/01/19 16:44 Dose: 40 meq Documented by: [id number] Description This is a 21 electrode EEG with a single channel dedicated to limited EKG. The electrodes were placed in accordance with the International 10-20 system. During wakefulness the recording shows a analy alpha posteriorly, a normal central theta and a normal bifrontal beta pattern Drowsiness is seen episodically and shows normal patterns Photic stimulation induces no signifannt changes There is no evidence for potentially epileptogenic activity Interpretation Normal eeg during wakefulness and sleep Clinical Correlation Normal waking and drowsy eeg showing no evidence for a focal or generalized encephalopathy and no evidence for potentially epileptogenic patterns Bam Benson MD
--- NOTE | 2019-01-02 11:02 | Pharmacy Report ---
Pharmacy Glycemic Short Note 2 - Date of Service January 02, 2019 - Glycemic Short BSG Results (Last 24 hours): 01/01/19 01/01/19 01/01/19 11:09 16:35 19:51 Glucose 105 H POC Glucose 87 87 01/01/19 01/02/19 01/02/19 21:09 06:37 07:05 Glucose 173 H POC Glucose 92 188 H OUTPATIENT ANTIDIABETIC REGIMEN: * Lantus 14 units SQ qHS * Novolog 7 units SQ with meals * A1c = 9.6% 11/06/18 (unreliable due to ESRD - HD) ASSESSMENT: 01/02: * Type 1 diabetic admitted with encephalopathy * Over the last 24 hrs he has received 26 units of SQ insulin while tolerating a diet (14 units of basal insulin + 12 units prandial insulin) * All BSGs less than 100 yesterday, and as a result prandial insulin was adjusted down * Will continue the current Lantus dose for one more day, however if BSGs are running on the low end of goal, will reduce dose starting tomorrow PLAN FOR INPATIENT GLYCEMIC CONTROL: * Basal insulin (no change) * Lantus 14 units SQ daily * Bolus insulin - loosen correctional insulin dose * NovoLog per scale ACHS or Q6hrs while NPO * Goal Range: Low 110 mg/dL - High 140 mg/dL * Correction Factor: 30 mg/dL/unit * Nutritional / Prandial insulin per carb ratio of 1 unit per 11 grams CHO consumed
[2019-01-02 11:42] VITALS: BP 113/72; O2SAT 97
--- NOTE | 2019-01-02 14:04 | Communication Note ---
I spoke to Dr Ndiaye about Xavier today He is apparently back to baseline and the eeg is normal I have recommended that he be discharged on higher doses of long acting verapamil ( 120 mg ) and that we see him in the office in several weeks The diagnosis here is unclear but an acute confusional migraine complicated by some metabolid issues seems most likely I am not willing at this time to commit him to aeds We may need a 72 hour eeg outpatient at some point if these type of events recur but prior episodes were classicly migrainous and mri scans have been negative for ischemia Bam Benson MD
--- NOTE | 2019-01-02 14:18 | Hospitalist Progress Note ---
Date of Service January 02, 2019 Assessment & Plan (1) Encephalopathy: (2) Altered mental status: Metabolic encephalopathy--Resolved Possible Confusion Migraine Hypertensive Urgency--Resolved In setting of Transient Hypoxia, Hyperglycemia MRI Brain:No acute intracranial abnormality. MRA Brain:No significant stenosis, occlusion, or aneurysm within the pa[place] of [place]. Toxicology Screen: Negative Ammonia levels: normal Mental status back to baseline --EEG:Normal waking and drowsy eeg showing no evidence for a focal or generalized encephalopathy and no evidence for potentially epileptogenic patterns Continue Verapamil, Topiramate Plan to increase Verapamil to 120mg Appreciate Neurology Input May need 72 Hr EEG as outpatient Needs FU with Neurology as outpatient (3) Hypertensive urgency: Presented with elevated BP H/O HTN Could have missed with HTN medications prior to admission Continue amlodipine, carvedilol BP stable (4) Hyperglycemia: (5) Diabetes mellitus type 1 with complications: A1c: 9.6 on 11/06/18 Home med list: Insulin glargine 16 units daily with novolog sliding scale In ER glucose: 505. beta hydroxybutyric acid: 0.6. VBG: pH; 7.3, CO2: 51, O2: 34, HCO3: 27 Continue ISS, basal Insulin Pharmacy Glycemic control consult Monitor BGs (6) Hypoxia: CXR: Cardiomegaly and interstitial pulmonary edema. Trace pleural effusions. Hypoxemic respiratory failure secondary to pulmonary congestion Likely due to mild volume overload Volume status managed through dialysis Volume status better Saturating well on room air (7) End-stage renal disease (ESRD): On HD on e, Nati, Sat schedule Appreciate Nephrology Input Dialysis as per Nephrology (8) Anemia in ESRD (end-stage renal disease): Hb near baseline monitor H&H Hyponatremia ? Dilutional Resolved Monitor sodium levels DVT Px: Heparin SQ Code Status Full Code Disposition: Expect to discharge home when stable Patient's father:Mr. Gilson Hicks, contact #[phone]. Subjective Patient is seen and examined at bedside Feels well today No complaints Had EEG today Discussed with today Has mild headache Denies chest pain, SOB, dizziness, nausea Plan to discharge home today Review of Systems Review of Systems: All systems reviewed & are unremarkable except as noted in HPI & below Physical Exam Physical Exam: Physical Exam: Vitals signs as noted above General Appearance:Moderately built and nourished, no apparent distress Head: normocephalic, Atraumatic Eyes: normal inspection, EOMI Neck: supple, Trachea midline Respiratory/Chest: Decreased breath sounds, CTA Cardiovascular: S1, S2, No murmur Abdomen/GI:Soft, Non tender, Bowel sounds present Extremities/Musculoskelatal:normal inspection, 1 B/L LE edema Neurologic/Psych:grossly no focal neurological deficits, Mental status back to baseline Skin: normal color, warm Results & Data Vital Signs (Past 12 Hours) Vital Signs Temp Pulse Pulse Resp BP Pulse Ox 01/02/19 11:41 36.8 C 67 18 113/72 97 01/02/19 08:00 71 01/02/19 07:07 36.8 C 72 16 167/91 H 98 01/02/19 03:44 36.9 C 71 16 138/75 96 Laboratory Results Short CBC 01/02/19 Range/Units 06:37 Hgb 10.2 L (14.0-18.0) g/dL Hct 29.9 L (42-52) % BMP 01/01/19 01/02/19 19:51 06:37 Sodium 138 139 Potassium 4.2 D 4.4 Chloride 101 104 Carbon Dioxide 32 27 BUN 35 H 37 H Creatinine 6.48 H* D 6.98 H* D Glucose 105 H 173 H Calcium 8.3 L 8.5
[2019-01-02] MEDS ORDERED: STROKE PATIENT DISCHARGE STA (14:25)
--- NOTE | 2019-01-02 14:27 | Discharge Summary ---
Date of Service January 02, 2019 Admission HPI Per Admitting Provider Pt is 33 y/o M with PMH DM I, HTN, ESRD on HD on wed schedule, h/o TIA, retinopathy, anemia of chronic disease, presented to the ER by EMS for altered mental status. Unable to obtain history from patient secondary to altered mental status. Information obtained from ER physician reports EMS was called by patient's neighbor who noticed he was in the yard wandering around and not acting normally. Upon arrival to ER staff report he would repeat a sentence when asked a question and shake his head "yes or no", but unable to obtain further history. Unknown if pt had any of his medications today. Unknown when his last HD was. Patient with history of hospitalization 12/09/2018-12/11/2018 for speech difficulty, and right arm numbness, visual disturbance. Was reporting LYON after dialysis. Pt had no acute changes on CT head or MRI brain at that time. It was thought pt may be having complex migraine. He was started on Diltiazem 80 mg daily and to be taken 1 hr before dialysis. Review of out patient med list from PCP's office pt on topamax 25mg BID. Pt also with hx possible TIA admission [facility] in 07/2018 and was placed on plavix and atorvastatin. 07/2018: Carotid Doppler with no evidence of stenosis 07/2018: MRI brain without contrast: No acute findings 11/23/18: MRI brain without contrast: Normal study 12/10/18: MRI brain without contrast: No acute intracranial findings. No evidence of acute or subacute infarction. No evidence of intracranial mass on this noncontrast study 12/10/18: echo: EF: 55-60%, normal wall motion, grade I diastolic dysfunction, improved pericardial effusion Admission Exam Per Admitting Provider General: chronic ill appearing, WDWN Head: normocephalic, atraumatic Eyes: PERRL, difficult to fully test EOM's as pt not fully following commands, conjunctiva non-injected, anicteric ENT: normal inspection external ears, nose, mucous membranes dry Neck: supple, trachea midline Lungs: R:20, On oxymask 6L with sat 96%, no accessory muscle use, mildly diminished breath sounds CV: Pulse 102, regular rhythm, no murmur, no pretibial edema Abd: normal BS, soft, no apparent tenderness, no guarding Ext: no cyanosis, no apparent calf tenderness Neuro: Alert. Pt repeats sentence: I can't back outside repeatedly, then answers outside for other responses. Pt will not shake head in yes or no fashion when asked other question just repeats the word outside. Speech doesn't appear slurred. No noted facial drooping. Difficult to assess neuro exam as pt with limited participation. With repeated prompting pt will move left foot (right foot in brace), able to wiggle toes bilaterally, noted to be freely able to move his bilateral arms to reposition himself in bed but when prompted pt will not actively move arms Skin: warm, dry, scab noted right anterior chest Principal Diagnosis Discharge Information Discharge Diagnosis Metabolic encephalopathy Possible Confusion Migraine Hypertensive Urgency Hyponatremia Discharge Goals Decrease discomfort,Improve function,Improve disease control Discharge Activity Limitations Resume your previous activity Discharge Data Allergies Allergy/AdvReac Type Severity Reaction Status Date / Time No Known Allergies Allergy Verified 12/20/18 10:02 Consultations 12/30/18 23:36 Consult Nephrology Routine 12/31/18 01:46 Consult Case Management - Discharge Planning Routine Consult Neurology Routine Procedures Performed MRI Brain:No acute intracranial abnormality. MRA Brain:No significant stenosis, occlusion, or aneurysm within the [place]. EEG:Normal waking and drowsy eeg showing no evidence for a focal or generalized encephalopathy and no evidence for potentially epileptogenic patterns ABD CT: 1. Bilateral pleural effusions with probable pulmonary edema. 2. Mild body wall anasarca. 3. Otherwise negative abdomen and pelvis. CXR: Cardiomegaly and interstitial pulmonary edema. Trace pleural effusions. Ordered Studies 12/30/18 20:25 CT head/brain wo con Stat 12/30/18 23:22 CT abd pelvis wo con Urgent 12/31/18 01:46 MR angio head wo con Routine MR brain wo con Routine Hospital Course (1) Encephalopathy: (2) Altered mental status: Metabolic encephalopathy--Resolved Possible Confusion Migraine Hypertensive Urgency--Resolved In setting of Transient Hypoxia, Hyperglycemia MRI Brain:No acute intracranial abnormality. MRA Brain:No significant stenosis, occlusion, or aneurysm within the [place]. Toxicology Screen: Negative Ammonia levels: normal Mental status back to baseline --EEG:Normal waking and drowsy eeg showing no evidence for a focal or genera lized encephalopathy and no evidence for potentially epileptogenic patterns Continue Verapamil, Topiramate Plan to increase Verapamil to 120mg Appreciate Neurology Input May need 72 Hr EEG as outpatient Needs FU with Neurology as outpatient (3) Hypertensive urgency: Presented with elevated BP H/O HTN Could have missed with HTN medications prior to admission Continue amlodipine, carvedilol BP stable (4) Hyperglycemia: (5) Diabetes mellitus type 1 with complications: A1c: 9.6 on 11/06/18 Home med list: Insulin glargine 16 units daily with novolog sliding scale In ER glucose: 505. beta hydroxybutyric acid: 0.6. VBG: pH; 7.3, CO2: 51, O2: 34, HCO3: 27 Continue ISS, basal Insulin Pharmacy Glycemic control consult Monitor BGs (6) Hypoxia: CXR: Cardiomegaly and interstitial pulmonary edema. Trace pleural effusions. Hypoxemic respiratory failure secondary to pulmonary congestion Likely due to mild volume overload Volume status managed through dialysis Volume status better Saturating well on room air (7) End-stage renal disease (ESRD): On HD on Wed, Wed, Wed schedule Appreciate Nephrology Input Dialysis as per Nephrology (8) Anemia in ESRD (end-stage renal disease): Hb near baseline monitor H&H Hyponatremia ? Dilutional Resolved Monitor sodium levels DVT Px: Heparin SQ Code Status Full Code Disposition: Expect to discharge home when stable Patient's father:Mr. Gilson Hicks, contact #[phone]. Total Time Total Time Spent Total Time Spent (In Minutes): 37 minutes Total Time Includes: Examination of the Patient, Discharge Planning, Medication Reconciliation, Communication With Other Providers and Other Discharge Plan Discharge Items Patient Disposition: Home - Self-Care Reason For Visit: ENCEPHALOPATHY Discharge Diagnosis: Metabolic encephalopathy Possible Confusion Migraine Hypertensive Urgency Hyponatremia Discharge Goals: Decrease discomfort, Improve disease control and Improve function Activity: Resume your previous activity Exercise/Sports: Gradually increase as tolerated Driving/Machine Use Comment: No driving until cleared by your Neurologist Non-emergency contact: Primary Care Provider, Manager Diabetes and Neurologist Call non-emergency contact if: you have any medication questions, your symptoms worsen, your pain is not controlled, your pain is worsening, your pain is unusual for you, your pain is concerning for you and you have a fever Follow-up/Referrals: Ciro Singh MD [Primary Care Provider] - Diet: Carb Count or DM1 and Dialysis Renal Addtl Provider Instructions: Follow up with your PCP On January 09, 2019 at 11:20AM Follow up with your Neurologist Laurie Aguiar on January 18, 2019 at 11:20AM 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 Seek immediate medical attention if your symptoms reoccur or worsen Your Verapamil dose is increased from 80mg to 120 mg daily as per recommendations of your Neurologist Prescriptions: New verapamil 120 mg tablet 120 mg PO DAILY Qty: 30 RF: 1 Continued atorvastatin 40 mg tablet 40 mg PO HS RF: 0 clopidogrel 75 mg tablet 75 mg PO QAM RF: 0 calcium acetate 667 mg Tablet 2,668 mg PO TIDM RF: 0 amlodipine 10 mg tablet 10 mg PO QAM RF: 0 cholecalciferol (vitamin D3) [Vitamin D3] 5,000 unit Tablet 5,000 units PO QAM RF: 0 carvedilol [Coreg] 12.5 mg tablet 12.5 mg PO BID RF: 0 Lantus U-100 Insulin 100 unit/mL solution 14 units SUBCUT HS RF: 0 acetaminophen [Tylenol Extra Strength] 500 mg Tablet 1,000 mg PO Q6H PRN (Reason: Pain) RF: 0 Novolog U-100 Insulin aspart 100 unit/mL solution 7 units subcut UD RF: 0 metoclopramide HCl [Reglan] 5 mg tablet 10 mg PO AC RF: 0 doxazosin 2 mg tablet 2 mg PO HS RF: 0 topiramate [Topamax] 25 mg tablet 25 mg PO BID Qty: 20 RF: 1 Discontinued verapamil [Calan] 80 mg tablet 80 mg PO QAM RF: 0 Stand-Alone Forms: [facility]/Other Patient Handouts: Verapamil Hydrochloride Oral tablet, Headaches Migraines and Cluster, Migraine Stages Tx Discharge Orders: Discharge Order (Routine); Ordered 01/02/19 Ordered By: Richard Ndiaye Admission Data Admit Date/Time: 12/30/18 23:26 Attending Provider: Richard Ndiaye Admit Provider: Wally Fontanez Primary Care Provider: Ciro Singh Other Providers: Kellie Bains ; Des Marcano ; Delmar Douglas I ; Deyanira Shelley ; Brenda Piedra ; Braulio Henriquez ; Laurie Aguiar ; Bam Benson ; Laurie Barfield ; Sara Blake ; Xavi Contreras ; Wally Fontanez Service: Telemetry Other Interventions: Discharge Summary Assessment (RN) Last Done: 01/02/19 14:39 Pending Studies at Discharge: No DC Date/Time DO NOT enter until pt leaves facility: 01/02/19 15:28
[2019-01-02 14:41] VITALS: PULSE 73
== END 2019-01-02 15:28 | disposition home or self-care (01) | DRG 70 ==
LOC: ED 19:44 → 2E 23:26 → SUATTDRO 23:26 → 2E 12-31 00:59

== ENCOUNTER 2019-02-02 16:58 | Inpatient (IN) ==
[2019-02-02] MEDS ORDERED: CEFEPIME 2,000 MG/20 ML VIAL IV STA (17:30)
[2019-02-02] MEDS ORDERED: ALBUTEROL 0.083% NEBU SOLN 3 ML VIAL NEB STA (17:35)
--- NOTE | 2019-02-02 17:57 | Emergency Department Note ---
History of Present Illness General Chief Complaint: Illness Stated Complaint: PSUNOMINIA? HIGH BP, LOW BLOOD OXYGEN Source: patient Mode of arrival: ambulatory Limitations: no limitations History of Present Illness Provider Complaint: shortness of breath and cough Onset (ago): week(s) (3) Severity: moderate Consistency/Duration: + constant Maximum Pain Intensity: 3 Current Pain Intensity: 3 Relieved By: + upright position Exacerbated By: + lying flat, + exertion, + coughing, + inspiration and + talking Context: + recent illness Known history of: diabetes Associated symptoms: + fever, + wheezing, + sputum production and + lightheadedness Treatment prior to arrival: none This 33-year-old male patient significant past medical history of diabetes, hypertension, chronic kidney disease, on dialysis, presents to the emergency department for evaluation of pneumonia noted on outpatient x-ray. The patient states he is also had elevated blood pressure over the past 1 week. His symptoms have been ongoing for approximately 3 weeks, but significantly worsened within the past 1 week. He was seen after dialysis by his primary care provider earlier today and had O2 saturation of 91%. He had a chest x-ray performed which was reviewed by the provider and concerning for left lower lobe pneumonia. The patient states he did have a fever earlier today 99 degrees at dialysis and 100 degrees at his primary care office. He states he has dialysis Tuesdays, , and Saturdays. He has been taking NyQuil and DayQuil without relief of his symptoms. He has had a significantly decreased appetite over the past few days. He states he has not eaten much for 2 days. The patient reported dizziness and a presyncopal episode earlier today to his primary care provider. He states this was associated with position changes. He denies any chest pain, coughing up blood, vomiting blood, hematochezia, diarrhea, constipation, or other associated symptoms. Related Data Home oxygen amount: none Home Medications Home Medications Medication Instructions Recorded Confirmed Type atorvastatin 40 mg PO HS 09/28/18 02/02/19 History calcium acetate 2,668 mg PO TIDM 09/28/18 02/02/19 History cholecalciferol (vitamin D3) 5,000 units PO QAM 09/28/18 02/02/19 History [Vitamin D3] clopidogrel 75 mg PO QAM 09/28/18 02/02/19 History carvedilol [Coreg] 12.5 mg PO BID 11/03/18 02/02/19 History Lantus U-100 Insulin 17 units SUBCUT HS 11/20/18 02/02/19 History Novolog U-100 Insulin aspart 0 units SUBCUT UD 12/20/18 02/02/19 History doxazosin 2 mg PO HS 12/20/18 02/02/19 History topiramate [Topamax] 25 mg PO BID #20 tab 12/20/18 02/02/19 Rx verapamil 120 mg PO DAILY #30 tab 01/02/19 02/02/19 Rx amlodipine 5 mg PO HS 02/02/19 02/02/19 History Allergies Allergy/AdvReac Type Severity Reaction Status Date / Time No Known Allergies Allergy Verified 02/02/19 17:29 Past Med/Surg History Medical History Migraines (Chronic) End-stage renal disease (ESRD) (Chronic) Pericardial effusion without cardiac tamponade (Chronic) Anemia in ESRD (end-stage renal disease) (Chronic) Prolonged QT interval (Chronic) ESRD (end stage renal disease) (Chronic) TIA (transient ischemic attack) (Chronic) Nephrotic syndrome due to diabetes mellitus (Chronic) Fatty liver (Chronic) Charcot foot due to diabetes mellitus (Chronic) Diabetic nephropathy (Chronic) Diabetic neuropathy (Chronic) Diabetic retinopathy (Chronic) 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) Hypertension (Chronic) Surgical History S/P eye surgery (Chronic) Family History Mother Hypertension Grandfather (Maternal) Diabetes Grandmother (Maternal) Diabetes Grandmother (Paternal) Diabetes Social History Preferred Language: [place] Communication Ability: Impaired Visual Impairment: Limited Beliefs That Will Affect Care: None marital status: single Current Living Situation: Alone current occupational status: employed Feels Safe at Home: Yes Smoking Status: Former smoker Tobacco Type: cigarettes Second Hand Exposure: No Hx Alcohol Use: No Hx Substance Use: No Review of Systems A total of 10 systems reviewed and were otherwise negative Physical Exam Vital Signs: Vital Signs - 24 hr 02/02/19 17:05 02/02/19 17:55 02/02/19 18:08 Temperature 37.5 C Temperature Source Oral Sepsis Recent Feve r Within 48 Hours No Sepsis New/Unexpla ined Change in Men joelle Status No Sepsis Action Take n by Nursing No Action Required Pulse Rate - Lying 92 H Pulse Rate - Sitti ng 93 H Pulse Rate - Stand ing 96 H Pulse Rate 88 Pulse Rhythm Regular Pulse Strength Normal Respiratory Rate 18 Respiratory Effort / Characteristics Non-Labored Respiratory Depth Normal Blood Pressure - L izabela 203/107 H Blood Pressure - S itting 201/101 H Blood Pressure- St anding 187/87 H Blood Pressure 193/92 H Blood Pressure Marguerite n 125 Blood Pressure Pos ition Sitting Pulse Oximetry 93 93 Oxygen Delivery Me thod Room Air Room Air 02/02/19 18:19 02/02/19 19:30 Temperature Temperature Source Sepsis Recent Feve r Within 48 Hours Sepsis New/Unexpla ined Change in Men joelle Status Sepsis Action Take n by Nursing Pulse Rate - Lying Pulse Rate - Sitti ng Pulse Rate - Stand ing Pulse Rate 92 H Pulse Rhythm Pulse Strength Respiratory Rate 18 21 Respiratory Effort / Characteristics Non-Labored Sponta neous Respiratory Depth Blood Pressure - L izabela Blood Pressure - S itting Blood Pressure- St anding Blood Pressure 192/100 H Blood Pressure Marguerite n Blood Pressure Pos ition Pulse Oximetry 93 96 Oxygen Delivery Me thod Room Air Room Air Physical Exam: VITALS: Vitals are noted on the nurse's note and reviewed by myself. Vital signs stable. GENERAL: This is a 33-year-old white male, in no acute distress, nondiaphoretic, well-developed well-nourished. SKIN: The skin was without rashes, erythema, edema, or bruising. There is no tenting of the skin. Capillary reflex less than 2 seconds. HEAD: Normocephalic atraumatic. EARS: External auditory canals clear, tympanic membranes pearly melara without erythema or effusion bilaterally. EYES: Pupils equal round and reactive to light and accommodation. Conjunctivae without injection, sclerae without icterus. Extraocular movements intact. NOSE: Patent, turbinates without inflammation or discharge. No sinus tenderness. MOUTH: Mucous membranes moist. Tonsils are not enlarged. Pharynx without erythema or exudate. Uvula midline. Airway patent. Tongue does not deviate. NECK: Supple without nuchal rigidity. No lymphadenopathy. Cervical spine is nontender. No JVD. HEART: Regular rate and rhythm without murmurs gallops or rubs. LUNGS: Rhonchi noted in the left lower lobe. Otherwise, lungs are clear to auscultation bilaterally without wheezes, rales or rhonchi. No dullness to percussion. No retractions or accessory muscle use. ABDOMEN: Positive bowel sounds x 4. Normal tympanic percussion. Soft, nontender, without masses or organomegaly. Mack sign negative. No guarding or rebound tenderness. MUSCULOSKELETAL: No muscle atrophy, erythema, or edema noted. Full range of motion without joint tenderness in all extremities. No tenderness to palpation. Normal gait. Strength 5/5 throughout. NEURO: Patient was alert and oriented to person place and time. Normal sensation to light and sharp touch. No focal neurological deficits. Course The patient was seen and evaluated as above. IV access obtained, labs drawn. Patient medicated with IV cefepime. Outpatient imaging reviewed by myself. Chest x-ray showed findings consistent with left lower lobe infiltrate. Labs reviewed by myself. I discussed the findings with the patient at bedside. I discussed the case with my attending. Discussed the case with hospitalist, CHRIS Lynn. We see her dictation regarding ongoing management care of this patient. Administered Medications Albuterol (Duoneb) 3 ml NEB Q4R PRN PRN Reason: shortness of breath Stop: 03/04/19 19:45 Last Admin: 02/02/19 19:59 Dose: 3 ml Documented by: [id number] Amlodipine Besylate (Norvasc) 5 mg PO HS EMERY Stop: 03/04/19 20:59 Last Admin: 02/02/19 21:14 Dose: 5 mg Documented by: [id number] Atorvastatin Calcium (Lipitor) 40 mg PO HS EMERY Stop: 03/04/19 20:59 Last Admin: 02/02/19 21:14 Dose: 40 mg Documented by: [id number] Carvedilol (Coreg) 12.5 mg PO BID EMERY Stop: 03/04/19 20:59 Last Admin: 02/02/19 21:15 Dose: 12.5 mg Documented by: [id number] Doxazosin Mesylate (Cardura) 2 mg PO HS EMERY Stop: 03/04/19 20:59 Last Admin: 02/02/19 21:14 Dose: 2 mg Documented by: [id number] Heparin Sodium (Porcine) (Heparin Sodium (Porcine)) 5,000 units SQ Q8 EMERY Stop: 03/04/19 21:59 Last Admin: 02/02/19 21:23 Dose: 5,000 units Documented by: [id number] Cosigned by: [id number] Insulin Aspart (Novolog Flexpen) 0 units SC ACHS EMERY Stop: 03/04/19 20:59 Last Admin: 02/02/19 21:23 Dose: 10 units Documented by: [id number] Cosigned by: [id number] Insulin Glargine (Lantus Solostar Pen) 17 units SC HS EMERY Stop: 03/04/19 20:59 Last Admin: 02/02/19 21:24 Dose: 17 units Documented by: [id number] Cosigned by: [id number] Topiramate (Topamax) 25 mg PO BID EMERY Stop: 03/04/19 20:59 Last Admin: 02/02/19 21:16 Dose: 25 mg Documented by: [id number] Verapamil HCl (Calan) 120 mg PO DAILY EMERY Stop: 03/04/19 19:59 Last Admin: 02/02/19 21:15 Dose: 120 mg Documented by: [id number] Discontinued Medications Albuterol (Ventolin 0.083% 2.5mg/3ml) 2.5 mg NEB NOW STA Stop: 02/02/19 17:36 Last Admin: 02/02/19 18:17 Dose: 2.5 mg Documented by: [id number] Cefepime HCl (Maxipime) 2,000 mg in 20 mls @ 5 mls/min IV NOW STA; Protocol Stop: 02/02/19 17:33 Last Admin: 02/02/19 18:14 Dose: 5 mls/min Documented by: [id number] Piperacillin Sod/Tazobactam (Sod 3.375 gm/ Dextrose) 115 mls @ 230 mls/hr IV NOW ONE; Protocol Stop: 02/02/19 20:44 Last Infusion: 02/02/19 21:50 Dose: 0 mls/hr Documented by: [id number] Admin: 02/02/19 21:16 Dose: 230 mls/hr Documented by: [id number] Potassium Chloride (Klor-Con M20) 20 meq PO NOW STA Stop: 02/02/19 19:47 Last Admin: 02/02/19 21:19 Dose: Not Given Documented by: [id number] Medical Decision Making Differential Diagnosis + acute exacerbation of chronic obstructive airways disease, + congestive heart failure, + community acquired pneumonia, + asthma with exacerbation, + pulmonary embolism, + COPD, + bronchitis, + pneumothorax, + pneumonia, + pleural effusion, + CHF, + ACS and + aspiration Home Medications Current Medication List: was personally reviewed by me Laboratory Data Attestation: I reviewed the patient's lab results. Leukocytosis of 12,000. Anemia with hemoglobin of 9.4, hematocrit 27.3. RBCs 3.19. Coags normal. Slight hyponatremia 135. Potassium 3.2. Chloride 95. Creatinine elevated 4.3. Glucose 259. Hepatic function without significant abnormality. Result diagrams: 02/02/19 17:56 02/02/19 17:56 Lab Results 02/02/19 02/02/19 02/02/19 Range/Units 17:56 17:56 17:56 WBC 12.20 H (4.8-10.8) K/uL RBC 3.19 L (4.7-6.1) M/uL Hgb 9.4 L (14.0-18.0) g/dL Hct 27.3 L (42-52) % MCV 85.6 (80-100) fL MCH 29.5 (25-34) pg MCHC 34.4 (32-36) g/dL RDW Std Deviation 44.6 (36.4-46.3) fL RDW Coeff of Ralph 14.2 (11.5-14.5) % Plt Count 350 (130-400) K/uL MPV 10.0 (7.4-10.4) fL Immature Gran % (Auto) 0.2 % Neut % (Auto) 76.9 % Lymph % (Auto) 8.7 % Wilkinson % (Auto) 13.4 % Eos % (Auto) 0.6 % Baso % (Auto) 0.2 % Immature Gran # (Auto) 0.03 H (0.00-0.02) K/uL Neut # (Auto) 9.39 H (1.4-6.5) K/uL Lymph # (Auto) 1.06 L (1.2-3.4) K/uL Wilkinson # (Auto) 1.63 H (0.11-0.59) K/uL Eos # (Auto) 0.07 (0-0.5) K/uL Baso # (Auto) 0.02 (0-0.2) K/uL PT 11.6 (9.0-12.0) Seconds INR 1.1 (0.9-1.1) APTT 27.1 (21.0-31.0) Seconds PTT Ratio 1.0 Sodium 135 L (136-145) mmol/L Potassium 3.2 L (3.5-5.1) mmol/L Chloride 95 L (98-107) mmol/L Carbon Dioxide 31 (21-32) mmol/L Anion Gap 10.0 (3-11) BUN 19 H (7-18) mg/dl Creatinine 4.30 H (0.6-1.4) mg/dl Est Cr Clr Drug Dosing 25.0 ml/min Est GFR ( Amer) 19.4 Est GFR (Non-Af Amer) 16.8 BUN/Creatinine Ratio 4.4 L (10-20) Glucose 259 H (70-99) mg/dl Calcium 8.9 (8.5-10.1) mg/dl Total Bilirubin 0.3 (0.2-1) mg/dl AST 8 L (15-37) U/L ALT 11 L (12-78) U/L Alkaline Phosphatase 105 (45-117) U/L Total Protein 6.7 (6.4-8.2) gm/dl Albumin 1.7 L (3.4-5.0) gm/dl Globulin 5.0 H (2.5-4.0) gm/dl Albumin/Globulin Ratio 0.3 L (0.9-2) Imaging Data Attestation: I personally reviewed and interpreted this imaging study as follows: (Outpatient CXR: Left lower lobe infiltrate) ECG Data Attestation: I personally reviewed and interpreted this ECG as follows: Prior ECG tracings: available for review Interpretation: Normal sinus rhythm with a ventricular rate of 89 bpm. Prolonged QT 412, QTc 501. No acute ischemic changes. Comparison to EKG performed January 01, 2019 shows no significant change. Blood Pressure Blood Pressure Findings: Elevated blood pressure Blood Pressure Disposition: further management by hospitalist SAMMI Flores This 33-year-old male patient significant past medical history of ESRD, diabetes, on dialysis, presents emergency department complaining of cough, fevers, congestion, and pneumonia diagnosed on outpatient x-ray. The patient does have mild leukocytosis just above 12,000. No tachycardia or hypotension. Patient's O2 saturation is at approximately 93% following albuterol nebulizer, and drops during conversation or physical activity. Because of his comorbidities and the above findings, with hospital acquired pneumonia suspected due to the patient's recent admission and dialysis, I did recommend admission for IV antibiotics and management of the respiratory disease. The patient was agreeable. I did speak with the hospitalist nurse practitioner who did see and evaluate the patient. Please see hospitalist dictation regarding ongoing management care of this patient. The chart was completed utilizing [employer] Speech voice recognition software. Grammatical errors, random word insertions, pronoun errors, and incomplete sentences are an occasional consequence of this system due to software limitations, ambient noise, and hardware issues. Any formal questions or concerns about the content, text, or information contained within the body of this dictation should be directly addressed to the provider for clarification. Impression & Plan HCAP (healthcare-associated pneumonia) Discharge Plan Visit Data *Final* Discharge Date/Time: 02/02/19 19:30 Chief Complaint: Illness Stated Complaint: PSUNOMINIA? HIGH BP, LOW BLOOD OXYGEN ED Provider: Sean Byers ED Midlevel Provider: Taylor Pierce Discharge Problem: HCAP (healthcare-associated pneumonia) Patient Disposition: Admitted As Inpatient Condition: Good Discharge Instructions Interventions: ED Discharge Assessment Last Done: 02/02/19 19:30
[2019-02-02 18:08] LABS: Basophils # (auto) 0.02 K/uL (0-0.2); Basophils % (auto) 0.2 %; Eosinophils # (auto) 0.07 K/uL (0-0.5); Eosinophils % (auto) 0.6 %; Hematocrit (blood only) 27.3 % (42-52); Hemoglobin 9.4 g/dL (14.0-18.0); Immature Granulocytes # (auto) 0.03 K/uL (0.00-0.02); Immature Granulocytes % (auto) 0.2 %; Lymphocytes # (auto) 1.06 K/uL (1.2-3.4); Lymphocytes % (auto) 8.7 %; Mean Corpuscular Hgb Conc 34.4 g/dL (32-36); Mean Corpuscular Volume 85.6 fL (80-100); Monocytes # (auto) 1.63 K/uL (0.11-0.59); Monocytes % (auto) 13.4 %; Neutrophils # (auto) 9.39 K/uL (1.4-6.5); Neutrophils % (auto) 76.9 %; Platelet Count 350 K/uL (130-400); RDW Coefficient of Variation 14.2 % (11.5-14.5); RDW Standard Deviation 44.6 fL (36.4-46.3); Red Blood Count 3.19 M/uL (4.7-6.1)
[2019-02-02 18:18] LABS: INR 1.1 (0.9-1.1); Partial Thromboplastin Time 27.1 Seconds (21.0-31.0); Prothrombin Time 11.6 Seconds (9.0-12.0)
[2019-02-02 18:24] LABS: Albumin Level 1.7 gm/dl (3.4-5.0); BUN Creatinine Ratio 4.4 (10-20); Calcium 8.9 mg/dl (8.5-10.1); Est GFR (African American) 19.4; Est GFR (Non-African American) 16.8; Potassium 3.2 mmol/L (3.5-5.1)
[2019-02-02 18:27] LABS: Albumin Globulin Ratio 0.3 (0.9-2); Bilirubin,Total 0.3 mg/dl (0.2-1); Total Protein 6.7 gm/dl (6.4-8.2)
[2019-02-02] MEDS ORDERED: PIPERACILL/TAZOBAC CONSULT ACTIVE PRN (19:46)
[2019-02-02] MEDS ORDERED: POTASSIUM CHLORIDE 20 MEQ TABCR PO STA (19:46)
[2019-02-02] MEDS: ALBUT/IPRATROP 3MG/0.5MG NEB 3 ML VIAL NEB PRN (19:59)
[2019-02-02] MEDS ORDERED: PHARMACY GLYCEMIC MGMT CONSULT PRN (20:09)
[2019-02-02] MEDS ORDERED: PIPERACILLIN/TAZOBACTAM 3.375 GM in DEXTROSE 5% 100 ML IV ONE (20:15)
--- NOTE | 2019-02-02 20:22 | History & Physical Report ---
Date of Service February 02, 2019 Assessment & Plan (1) HCAP (healthcare-associated pneumonia): -Admit to [facility] -Patient presenting by referral to PCPs office for evaluation of cough and shortness of breath -Outpatient CXR per my interpretation demonstrates a left lower lobe opacity -Would be considered HCAP given patient's recent hospital admission and dialysis -In the ED, WBC 12K, afebrile, saturating well on room air, stable vitals; do not suspect sepsis -Received IV cefepime in the ED, will continue with Zosyn for now; check MRSA swab and if positive will add vancomycin -Check sputum culture -Pulmonary toilet with nebs, flutter valve, incentive spirometer (2) Hypertension: -BP elevated, likely secondary to missed medications today -Continue amlodipine, carvedilol, doxazosin; make adjustments as needed (3) ESRD (end stage renal disease): -Dialysis schedule Wednesday, , Wednesday; received dialysis today -Nephrology consult for dialysis orders -Continue routine renal medications (4) Anemia in ESRD (end-stage renal disease): -Hgb at baseline, continue to monitor (5) TIA (transient ischemic attack): -Continue clopidogrel (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 Patient reports persistent and worsening cough over the past 3 weeks. He reports cough is been intermittently productive for a melara sputum. He was seen in his PCPs office today and was sent to the ED for further evaluation. He reports running some low-grade fevers today. He denies chest pain. He reports some mild exertional shortness of breath. No lightheadedness, dizziness, diaphoresis, syncopal events. He denies abdominal pain, nausea, vomiting, diarrhea. Patient went to dialysis today. He denies any recent travel or sick contacts. In the ED, patient is afebrile and is saturating well on room air. Labs show WBC 12 K, other labs unremarkable/at baseline. Outpatient CXR shows a left lower lobe infiltrate. Patient was given nebulizer treatment and IV cefepime. Allergies Allergy/AdvReac Type Severity Reaction Status Date / Time No Known Allergies Allergy Verified 02/02/19 17:29 Home Medications Home Medications Medication Instructions Recorded Confirmed Type atorvastatin 40 mg PO HS 09/28/18 02/02/19 History calcium acetate 2,668 mg PO TIDM 09/28/18 02/02/19 History cholecalciferol (vitamin D3) 5,000 units PO QAM 09/28/18 02/02/19 History [Vitamin D3] clopidogrel 75 mg PO QAM 09/28/18 02/02/19 History carvedilol [Coreg] 12.5 mg PO BID 11/03/18 02/02/19 History Lantus U-100 Insulin 17 units SUBCUT HS 11/20/18 02/02/19 History Novolog U-100 Insulin aspart 0 units SUBCUT UD 12/20/18 02/02/19 History doxazosin 2 mg PO HS 12/20/18 02/02/19 History topiramate [Topamax] 25 mg PO BID #20 tab 12/20/18 02/02/19 Rx verapamil 120 mg PO DAILY #30 tab 01/02/19 02/02/19 Rx amlodipine 5 mg PO HS 02/02/19 02/02/19 History Past Med/Surg History Medical History Migraines (Chronic) End-stage renal disease (ESRD) (Chronic) Pericardial effusion without cardiac tamponade (Chronic) Anemia in ESRD (end-stage renal disease) (Chronic) Prolonged QT interval (Chronic) ESRD (end stage renal disease) (Chronic) TIA (transient ischemic attack) (Chronic) Nephrotic syndrome due to diabetes mellitus (Chronic) Fatty liver (Chronic) Charcot foot due to diabetes mellitus (Chronic) Diabetic nephropathy (Chronic) Diabetic neuropathy (Chronic) Diabetic retinopathy (Chronic) 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) Hypertension (Chronic) Surgical History S/P eye surgery (Chronic) Family History Mother Hypertension Grandfather (Maternal) Diabetes Grandmother (Maternal) Diabetes Grandmother (Paternal) Diabetes Social History Preferred Language: Faroese Communication Ability: Impaired Visual Impairment: Limited Beliefs That Will Affect Care: None marital status: single Current Living Situation: Alone current occupational status: employed Feels Safe at Home: Yes Smoking Status: Former smoker Tobacco Type: cigarettes Second Hand Exposure: No Hx Alcohol Use: No Hx Substance Use: No Review of Systems Review of Systems: ROS per HPI, all other systems reviewed and negative Physical Exam Physical Exam: Please refer to Dr. Ndiaye's addendum for physical exam Results & Data Vital Signs (Past 12 Hours) Vital Signs Temp Pulse Pulse Resp BP Pulse Ox 02/02/19 20:01 82 18 95 02/02/19 19:30 92 H 21 192/100 H 96 02/02/19 18:19 18 93 02/02/19 18:08 93 02/02/19 17:05 37.5 C 88 18 193/92 H 93 Laboratory Results Short CBC 02/02/19 Range/Units 17:56 WBC 12.20 H (4.8-10.8) K/uL Hgb 9.4 L (14.0-18.0) g/dL Hct 27.3 L (42-52) % Plt Count 350 (130-400) K/uL BMP 02/02/19 17:56 Sodium 135 L Potassium 3.2 L Chloride 95 L Carbon Dioxide 31 BUN 19 H Creatinine 4.30 H Glucose 259 H Calcium 8.9 Liver Function 02/02/19 Range/Units 17:56 Total Bilirubin 0.3 (0.2-1) mg/dl AST 8 L (15-37) U/L ALT 11 L (12-78) U/L Alkaline Phosphatase 105 (45-117) U/L Albumin 1.7 L (3.4-5.0) gm/dl Diagnostic Findings Outpatient CXR per my interpretation shows a left lower lobe opacity. Code Status & VTE Plan VTE Prophylaxis Plan VTE Prophylaxis will be ordered: Yes Supervising Physician Co-Signing Physician Notes Patient is a 33-year-old female with history of ESRD on dialysis, hypertension, type 1 diabetes mellitus and other problems who was recently admitted at [facility] and was treated for metabolic encephalopathy likely due to confusion migraine and hypertensive urgency presents with history of worsening cough with expectoration since 3 weeks duration. He reports associated shortness of breath intermittently. Denies any fever chills, chest pain. Patient had dialysis today. His outpatient chest x-ray suggestive of left lower lobe infiltrate. Admits to missing his hypertension medications today. On exam patient is moderately built and nourished, no apparent distress, normocephalic atraumatic, lungs-decreased breath sounds, S1-S2, no murmur,+ tachycardia, abdomen soft nontender, no focal neurological deficits, 1+ bilateral lower extremity edema. Patient was admitted for management of healthcare associated pneumonia and hypertensive urgency. No signs of sepsis. Agree with IV Zosyn. Check MRSA screen. Restart home medications. Nephrology consulted for dialysis management. I personally reviewed the record. Patient is interviewed and examined at bedside. Patient's care is coordinated with Viji Coleman NP. Please refer to the documentation above for details of patient's presentation and for discussion of other issues. (1) Hypertension Hypertension type: unspecified Qualified Code(s): I10 - Essential (primary) hypertension
[2019-02-02] MEDS ORDERED: GLUCOSE 10 TABS/TUBE PO PRN (20:30)
[2019-02-02] MEDS ORDERED: GLUCAGON FOR INJ 1 MG VIAL IM PRN (20:30)
[2019-02-02] MEDS ORDERED: GLUCOSE 40% GEL 15 GM TUBE PO PRN (20:30)
[2019-02-02] MEDS ORDERED: DEXTROSE 50% 50 ML SYRINGE IV PRN (20:30)
[2019-02-02] MEDS ORDERED: CARBOHYDRATES FOR HYPOGLYCEMIA PO PRN (20:30)
[2019-02-02] MEDS ORDERED: ALBUTEROL 0.5% NEB SOLN 2.5 MG/0.5 ML VIAL NEB PRN (20:38)
[2019-02-02] MEDS ORDERED: INSULIN GLARGINE SOLOSTAR 100 UNITS/ML 3 ML PEN SC SCH (21:00)
[2019-02-02] MEDS: DOXAZosin MESYLATE TAB 2 MG TAB PO SCH (21:14)
[2019-02-02] MEDS: ATORVASTATIN 40 MG TAB PO SCH (21:14)
[2019-02-02] MEDS: AMLODIPINE BESYLATE 5 MG TAB PO SCH (21:14)
[2019-02-02] MEDS: CARVEDILOL 12.5 MG TAB PO SCH (21:15)
[2019-02-02] MEDS: VERAPAMIL HCL 40 MG TAB PO SCH (21:15)
[2019-02-02] MEDS: TOPIRAMATE 25 MG TAB PO SCH (21:16)
[2019-02-02] MEDS: HEPARIN SOD 5,000 UNIT/0.5 ML VIAL SQ SCH (21:23)
[2019-02-02] MEDS: INSULIN ASPART 100 UNITS/ML 3 ML PEN SC SCH (21:23)
[2019-02-03] MEDS: INSULIN ASPART 100 UNITS/ML 3 ML PEN SC SCH ×7 (00:34→23:55)
[2019-02-03] MEDS: PIPERACILLIN/TAZOBACTAM 3.375 GM in DEXTROSE 5% 100 ML IV SCH ×2 (02:13→17:00)
[2019-02-03] MEDS: HEPARIN SOD 5,000 UNIT/0.5 ML VIAL SQ SCH ×2 (06:14→21:08)
[2019-02-03 06:43] LABS: Hematocrit (blood only) 22.8 % (42-52); Hemoglobin 7.8 g/dL (14.0-18.0); Mean Corpuscular Hgb Conc 34.2 g/dL (32-36); Mean Corpuscular Volume 85.7 fL (80-100); Mean Platelet Volume 9.4 fL (7.4-10.4); Platelet Count 296 K/uL (130-400); RDW Coefficient of Variation 14.4 % (11.5-14.5); RDW Standard Deviation 44.6 fL (36.4-46.3); Red Blood Count 2.66 M/uL (4.7-6.1); White Blood Count 9.41 K/uL (4.8-10.8)
[2019-02-03] MEDS: ALBUT/IPRATROP 3MG/0.5MG NEB 3 ML VIAL NEB PRN (06:53)
[2019-02-03 07:17] LABS: BUN Creatinine Ratio 4.5 (10-20); Calcium 8.4 mg/dl (8.5-10.1); Creatinine Clr Calc Pharmacy 20.2 ml/min; Est GFR (African American) 15.1
--- NOTE | 2019-02-03 07:41 | Nephrology Consultation ---
Date of Consultation February 03, 2019 Assessment & Plan (1) End-stage renal disease (ESRD): -next HD for tomorrow; no urgent need for today -agree w/ hospitalist plan to repeat CXR tomorrow to f/u on ? fluid accumulation no L lung Present on Admission?: Yes (2) Labile essential hypertension: for now cont current meds and dialysis; no lability so far in clinic Present on Admission?: Yes (3) Anemia in ESRD (end-stage renal disease): plan aggressive epo and iron w/ dialysis -daily labs -minimize/avoid transfusions as he is a potential txplt candidate Present on Admission?: Yes History of Present Illness Reason for Consultation: esrd Requesting Physician: Dr Ndiaye Attending Physician: Darnell Awan MD History of Present Illness 33 y/o M whom I'm asked to see for ESRD care after he was admitted for HCAP last evening. He dialyzes under my care TRSat at [facility] and had a full tx yesterday. He was feeling quite poorly on HD yesterday (he often does) but for different reasons: cough, weakness, uri sx which he stated had been ongoing x 3 wks. Had not seen pcp about it and strongly advised him to do so. Had been taking OTC decongestants and SBP were elevated in 190-200s w/o sx. At the first tx of week, he had symptomatic hypotension, quite atypical for him, and we had stopped his amlodipine. Possible that stopping this contributed to his high bp and we resumed this at 5 mg yesterday. Pt went to pcp who advised ER eval, where he was admitted for HCAP. CXR apparently at clinic showed L lung findings c/w pna. Other PMH includes DM 1, charcot foot, HTN, severe migraines, prolonged QT, past TIA. He has been admitted here at least 2X since 07/2018 for TIA like sx and encephalopathy. His headaches can be quite severe and often worsen on HD. Neurology has been following to evaluate this and treat best we can. Today pt feels slightly improved w/ less cough though he is still exhausted. no sob; did have Tmax 37.9 overnight. Allergies Allergy/AdvReac Type Severity Reaction Status Date / Time No Known Allergies Allergy Verified 02/02/19 17:29 Home Medications Home Medications Medication Instructions Recorded Confirmed Type atorvastatin 40 mg PO HS 09/28/18 02/02/19 History calcium acetate 2,668 mg PO TIDM 09/28/18 02/02/19 History cholecalciferol (vitamin D3) 5,000 units PO QAM 09/28/18 02/02/19 History [Vitamin D3] clopidogrel 75 mg PO QAM 09/28/18 02/02/19 History carvedilol [Coreg] 12.5 mg PO BID 11/03/18 02/02/19 History Lantus U-100 Insulin 17 units SUBCUT HS 11/20/18 02/02/19 History Novolog U-100 Insulin aspart 0 units SUBCUT UD 12/20/18 02/02/19 History doxazosin 2 mg PO HS 12/20/18 02/02/19 History topiramate [Topamax] 25 mg PO BID #20 tab 12/20/18 02/02/19 Rx verapamil 120 mg PO DAILY #30 tab 01/02/19 02/02/19 Rx amlodipine 5 mg PO HS 02/02/19 02/02/19 History Patient History Medical History Migraines (Chronic) End-stage renal disease (ESRD) (Chronic) Pericardial effusion without cardiac tamponade (Chronic) Anemia in ESRD (end-stage renal disease) (Chronic) Prolonged QT interval (Chronic) ESRD (end stage renal disease) (Chronic) TIA (transient ischemic attack) (Chronic) Nephrotic syndrome due to diabetes mellitus (Chronic) Fatty liver (Chronic) Charcot foot due to diabetes mellitus (Chronic) Diabetic nephropathy (Chronic) Diabetic neuropathy (Chronic) Diabetic retinopathy (Chronic) 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) Hypertension (Chronic) Surgical History S/P eye surgery (Chronic) Family History Mother Hypertension Grandfather (Maternal) Diabetes Grandmother (Maternal) Diabetes Grandmother (Paternal) Diabetes Social History Preferred Language: Chilean Communication Ability: Impaired Visual Impairment: Limited Network Programmer Required: No Beliefs That Will Affect Care: None marital status: single Current Living Situation: Alone current occupational status: employed Other Information That Helps Us Care for You: No Feels Safe at Home: Yes Safety Concerns: Feels Safe At This Time Smoking Status: Former smoker Tobacco Type: cigarettes Do You Dip or Chew Tobacco: No Second Hand Exposure: No Tobacco Cessation Education Requested by Patient: No Hx Alcohol Use: No Hx Substance Use: No Review of Systems Review of Systems: All systems reviewed & are unremarkable except as noted in HPI & below Constitutional: + chills, + body aches, + fatigue, + weakness and + anorexia Eyes: no worsening vision Ear, Nose, Mouth, Throat: + sore throat and + hoarseness Respiratory: + cough, + chest congestion and + dyspnea on exertion Cardiovascular: + edema (mild, intermittent); no chest pain and no palpitations Gastrointestinal: no abdominal pain and no change in bowel habits Genitourinary: + problem reported (cont to void most days; no change in chronic voiding habits) Musculoskeletal: + myalgia and + body aches Integumentary: no rash and no non-healing lesions Neurologic: + generalized weakness headache as above Psychiatric: + depression; no behavioral changes Endocrine: + fatigue Hematologic / Lymphatic: no easy bleeding Physical Exam Constitutional: well developed and + frail appearing; no acute distress lying asleep/ flat on room air, wakens fully Eyes: no EOM movement deficit ENMT: Mouth: + dry oral mucous membranes Neck: no nuchal rigidity Respiratory: no respiratory distress and no labored breathing Auscultation: + diminished lung sounds Cardiovascular: RRR, no murmur, no edema Extremities: + AV fistula (+ t/b) Gastrointestinal (Abdomen): Inspection/Auscultation: normal bowel sounds Percussion/Palpation: abdomen soft; abdomen nontender Musculoskeletal: soria, fluent speech Skin: no rashes, warm and dry Neurologic: no tremor, A& 0 x 3 Psychiatric: A+Ox3, euthymic affect Results & Data Vital Signs (Past 12 Hours) Vital Signs Temp Pulse Resp BP Pulse Ox 02/03/19 06:54 67 14 90 02/02/19 23:25 37.9 C H 83 18 148/73 H 90 02/02/19 20:01 82 18 95 02/02/19 20:00 37.1 C 88 187/94 H 93 Laboratory Results Abnormal lab results 02/02/19 02/02/19 02/02/19 Range/Units 17:56 17:56 20:07 WBC 12.20 H (4.8-10.8) K/uL RBC 3.19 L (4.7-6.1) M/uL Hgb 9.4 L (14.0-18.0) g/dL Hct 27.3 L (42-52) % Immature Gran # (Auto) 0.03 H (0.00-0.02) K/uL Neut # (Auto) 9.39 H (1.4-6.5) K/uL Lymph # (Auto) 1.06 L (1.2-3.4) K/uL Bleckley # (Auto) 1.63 H (0.11-0.59) K/uL Sodium 135 L (136-145) mmol/L Potassium 3.2 L (3.5-5.1) mmol/L Chloride 95 L (98-107) mmol/L BUN 19 H (7-18) mg/dl Creatinine 4.30 H (0.6-1.4) mg/dl BUN/Creatinine Ratio 4.4 L (10-20) Glucose 259 H (70-99) mg/dl POC Glucose 274 H (70-99) Hemoglobin A1c (4.5-5.6) % Calcium (8.5-10.1) mg/dl AST 8 L (15-37) U/L ALT 11 L (12-78) U/L Albumin 1.7 L (3.4-5.0) gm/dl Globulin 5.0 H (2.5-4.0) gm/dl Albumin/Globulin Ratio 0.3 L (0.9-2) 02/03/19 02/03/19 02/03/19 Range/Units 00:12 00:13 04:17 WBC (4.8-10.8) K/uL RBC (4.7-6.1) M/uL Hgb (14.0-18.0) g/dL Hct (42-52) % Immature Gran # (Auto) (0.00-0.02) K/uL Neut # (Auto) (1.4-6.5) K/uL Lymph # (Auto) (1.2-3.4) K/uL Bleckley # (Auto) (0.11-0.59) K/uL Sodium (136-145) mmol/L Potassium (3.5-5.1) mmol/L Chloride (98-107) mmol/L BUN (7-18) mg/dl Creatinine (0.6-1.4) mg/dl BUN/Creatinine Ratio (10-20) Glucose (70-99) mg/dl POC Glucose 302 H* 301 H* 132 H (70-99) Hemoglobin A1c (4.5-5.6) % Calcium (8.5-10.1) mg/dl AST (15-37) U/L ALT (12-78) U/L Albumin (3.4-5.0) gm/dl Globulin (2.5-4.0) gm/dl Albumin/Globulin Ratio (0.9-2) 02/03/19 02/03/19 02/03/19 Range/Units 06:29 06:29 06:29 WBC (4.8-10.8) K/uL RBC 2.66 L (4.7-6.1) M/uL Hgb 7.8 L (14.0-18.0) g/dL Hct 22.8 L (42-52) % Immature Gran # (Auto) (0.00-0.02) K/uL Neut # (Auto) (1.4-6.5) K/uL Lymph # (Auto) (1.2-3.4) K/uL Bleckley # (Auto) (0.11-0.59) K/uL Sodium (136-145) mmol/L Potassium 3.0 L (3.5-5.1) mmol/L Chloride (98-107) mmol/L BUN 24 H (7-18) mg/dl Creatinine 5.31 H* D (0.6-1.4) mg/dl BUN/Creatinine Ratio 4.5 L (10-20) Glucose (70-99) mg/dl POC Glucose (70-99) Hemoglobin A1c 11.5 H (4.5-5.6) % Calcium 8.4 L (8.5-10.1) mg/dl AST (15-37) U/L ALT (12-78) U/L Albumin (3.4-5.0) gm/dl Globulin (2.5-4.0) gm/dl Albumin/Globulin Ratio (0.9-2) 02/03/19 Range/Units 07:39 WBC (4.8-10.8) K/uL RBC (4.7-6.1) M/uL Hgb (14.0-18.0) g/dL Hct (42-52) % Immature Gran # (Auto) (0.00-0.02) K/uL Neut # (Auto) (1.4-6.5) K/uL Lymph # (Auto) (1.2-3.4) K/uL Bleckley # (Auto) (0.11-0.59) K/uL Sodium (136-145) mmol/L Potassium (3.5-5.1) mmol/L Chloride (98-107) mmol/L BUN (7-18) mg/dl Creatinine (0.6-1.4) mg/dl BUN/Creatinine Ratio (10-20) Glucose (70-99) mg/dl POC Glucose 109 H (70-99) Hemoglobin A1c (4.5-5.6) % Calcium (8.5-10.1) mg/dl AST (15-37) U/L ALT (12-78) U/L Albumin (3.4-5.0) gm/dl Globulin (2.5-4.0) gm/dl Albumin/Globulin Ratio (0.9-2)
[2019-02-03 08:24] LABS: Estimated Average Glucose 283 mg/dl; Hemoglobin A1C 11.5 % (4.5-5.6)
[2019-02-03] MEDS: CHOLECALCIFEROL 1,000 UNITS TAB PO SCH (08:36)
[2019-02-03] MEDS: CALCIUM ACETATE 667 MG CAP PO SCH ×3 (08:37→17:08)
[2019-02-03] MEDS: VERAPAMIL HCL 40 MG TAB PO SCH (08:37)
[2019-02-03] MEDS: CARVEDILOL 12.5 MG TAB PO SCH ×2 (08:37→21:10)
[2019-02-03] MEDS: TOPIRAMATE 25 MG TAB PO SCH ×2 (08:38→21:15)
[2019-02-03] MEDS: CLOPIDOGREL BISULFATE 75 MG TAB PO SCH (08:38)
--- NOTE | 2019-02-03 09:08 | Pharmacy Report ---
Glycemic Control Consultation - Date of Service February 03, 2019 - Scope Scope: Glycemic Pharmacist consulted by Viji PEREZ on 02/02/19 for glycemic control and to write orders per [facility] inpatient glycemic control protocol - Objective Weight: 74 kg Accuchecks BSG (last 24hrs): 02/02/19 02/02/19 02/03/19 17:56 20:07 00:12 Glucose 259 H POC Glucose 274 H 302 H* 02/03/19 02/03/19 02/03/19 00:13 04:17 06:29 Glucose 89 POC Glucose 301 H* 132 H 02/03/19 07:39 Glucose POC Glucose 109 H Laboratory Data (last 24hrs): 02/02/19 02/03/19 17:56 06:29 Potassium 3.2 L 3.0 L Carbon Dioxide 31 31 Anion Gap 10.0 9.0 Creatinine 4.30 H 5.31 H* D Est Cr Clr Drug Dosing 25.0 20.2 HbA1c: Hemoglobin A1c 11.5 % (4.5-5.6) H 02/03/19 06:29 * However, this result is likely somewhat unreliable in ESRD patients d/t interactions between the A1c analyzing technique and high levels of urea in ESRD, reduced RBC life span, iron deficiency anemia, and EPO administration. HbA1c > 7.5% in ESRD patient may overestimate the extent of hyperglycemia in ESRD patients. - Recent Pertinent Medications Outpatient Anti-diabetic Regimen: * Lantus 17 units SQ HS * NovoLog per SSI and 7 units SQ prior to meals Risk Factors for Insulin Resistance: * Infection * Diet - Assessment & Plan Assessment & Plan: ASSESSMENT: * 33yo T1DM male with presumed poor outpatient control. Patient with ESRD secondary to uncontrolled DM. * Pt with moderate hyperglycemia on admission - improved with Q4hr Novolog checks and coverage. * AM fasting BSG is in goal range with the addition of 7 units of NovoLog overnight- will continue outpatient basal insulin dosing but scale the dose based on BSG so that more is given with BSG elevated. * Outpatient dosing of NovoLog with meals is 7 units. Typically, meals inhouse contain 60-70g CHO therefore will use a CHO ratio of ~ 10 PLAN FOR INPATIENT GLYCEMIC CONTROL: * Basal insulin * Lantus 17 units SQ HS * Will increase the dose to 19 units if BSG >200 * Bolus insulin * NovoLog per scale ACHS or Q6hrs while NPO * Goal Range: Low 100 mg/dL - High 140 mg/dL * Correction Factor: 30 mg/dL/unit * Nutritional / Prandial insulin per carb ratio of 1 unit per 10 grams CHO consumed * Please note that the plan above was derived based on current level of insulin resistance and hospital stress. These recommendations are appropriate for inpatient admission only. Plan of care upon discharge will need to be reassessed to avoid potential outpatient hypo/hyperglycemia. Thank you.
--- NOTE | 2019-02-03 10:51 | Hospitalist Progress Note ---
Date of Service February 03, 2019 Assessment & Plan (1) HCAP (healthcare-associated pneumonia): Patient admitted for left lower lobe pneumonia -and by admitting team that this pneumonia may be considered to be hospital acquire pneumonia given history of hospitalizations and as patient is a dialysis patient starting the year -received Cefepime in the ED and then as Zosyn on admission -will continue IV Zosyn as MRSA negative -lung exam on 02/03/19 concerning for right sided lung congestion, will send CXR portable, have discussed with Dr. Bains about additional dialysis session on Wednesday02/03/19 besides planned dialysis session on Wednesday02/04/19 (2) Hypertension: -BP elevated, likely secondary to missed medications today -Continue amlodipine, carvedilol, doxazosin; make adjustments as needed (3) ESRD (end stage renal disease): -usual Dialysis schedule is Wednesday, , Wednesday -patient had outpatient dialysis session in the AM of 02/02/19 prior to ED presentation -lung exam on 02/03/19 concerning for right sided lung congestion, will send CXR portable, have discussed with Dr. 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 patient appeared uncomfortable. on room air but he feels more shortness of breath. on lung exam there appeared to be more congestion of the right lung rivas than the left lung rivas. patient saturated above 91% on room air. Discussed with Dr. Bains from nephrology of considering dialysis today on Wednesday02/03/19 rather than wait until Wednesday02/04/19. Dr Bains will make the arrangements. Patient informed. Patient denies pain. no lightheadedness, no dizziness. Physical Exam Constitutional: + ill appearing Eyes: PERRL, conjunctivae normal, anicteric sclerae EOM intact bilaterally Neck: trachea midline, no thyromegaly normal visual inspection Cardiovascular: Rate/Rhythm: regular rate and regular rhythm Gastrointestinal (Abdomen): normal bowel sounds, soft, nontender, no hepatosplenomegaly Musculoskeletal: Head/Neck/Chest: normocephalic and head atraumatic Neurologic: PERRL, EOMI, accommodation nl, no face palsy, no dysarthria CN's II-XI intact bilaterally Psychiatric: A+Ox3, euthymic affect Results & Data Vital Signs (Past 12 Hours) Vital Signs Temp Pulse Resp BP Pulse Ox 02/03/19 07:00 37.1 C 67 17 145/77 H 91 02/03/19 06:54 67 14 90 02/02/19 23:25 37.9 C H 83 18 148/73 H 90 (1) Hypertension Hypertension type: unspecified Qualified Code(s): I10 - Essential (primary) hypertension
[2019-02-03] MEDS ORDERED: SODIUM CHLORIDE 0.9% 1000ML 1,000 ML IV PRN (11:14)
--- NOTE | 2019-02-03 11:14 | XRay Report ---
XR chest 1V portable HISTORY: 33 years-old Male shortness of breath acute shortness of breath COMPARISON: Chest radiograph 12/30/2018 TECHNIQUE: Portable AP view of the chest FINDINGS: Cardiac silhouette is upper limits of normal in size. Patchy alveolar opacities of the left lung base and left midlung. No pneumothorax, overt pulmonary edema or large pleural effusion. The right lung i s clear. The bones appear grossly intact. IMPRESSION: Patchy left lung base and left midlung opacities are suspicious for pneumonia in the [facility] clinical setting. Follow-up imaging to document resolution recommended. The above report was generated using voice recognition software. It may contain grammatical, syntax o r spelling errors. Electronically signed by: Asim West M.D. 02/03/2019 11:12 AM
[2019-02-03] MEDS ORDERED: HEPARIN SOD (PORCINE) 1000 UNIT/ML 10 ML VIAL IV ONE (11:15)
[2019-02-03 14:42] LABS: Basophils # (auto) 0.02 K/uL (0-0.2); Basophils % (auto) 0.2 %; Eosinophils # (auto) 0.09 K/uL (0-0.5); Eosinophils % (auto) 1.1 %; Hematocrit (blood only) 23.4 % (42-52); Hemoglobin 7.9 g/dL (14.0-18.0); Immature Granulocytes # (auto) 0.01 K/uL (0.00-0.02); Immature Granulocytes % (auto) 0.1 %; Lymphocytes # (auto) 1.29 K/uL (1.2-3.4); Lymphocytes % (auto) 15.3 %; Mean Corpuscular Hgb Conc 33.8 g/dL (32-36); Mean Corpuscular Volume 86.7 fL (80-100); Mean Platelet Volume 9.8 fL (7.4-10.4); Monocytes # (auto) 1.26 K/uL (0.11-0.59); Neutrophils # (auto) 5.75 K/uL (1.4-6.5); Neutrophils % (auto) 68.3 %; Platelet Count 290 K/uL (130-400); RDW Coefficient of Variation 14.5 % (11.5-14.5); RDW Standard Deviation 44.9 fL (36.4-46.3); White Blood Count 8.42 K/uL (4.8-10.8)
[2019-02-03 15:08] LABS: Basophilic Stippling 1+; Polychromasia 1+; Toxic Granulation 2+
[2019-02-03] MEDS: HEPARIN SOD (PORCINE) 1000 UNIT/ML 10 ML VIAL IV SCH ×2 (15:20→15:49)
[2019-02-03] MEDS: ACETAMINOPHEN 325 MG TAB PO PRN (17:06)
[2019-02-03] MEDS: INSULIN GLARGINE SOLOSTAR 100 UNITS/ML 3 ML PEN SC SCH (21:08)
[2019-02-03] MEDS: AMLODIPINE BESYLATE 5 MG TAB PO SCH (21:09)
[2019-02-03] MEDS: DOXAZosin MESYLATE TAB 2 MG TAB PO SCH (21:10)
[2019-02-03] MEDS: ATORVASTATIN 40 MG TAB PO SCH (21:10)
[2019-02-03] MEDS ORDERED: TRAZODONE HCL 50 MG TAB PO PRN (23:54)
[2019-02-03] MEDS ORDERED: TRAZODONE HCL 50 MG TAB PO ONE (23:55)
[2019-02-04] MEDS: PIPERACILLIN/TAZOBACTAM 3.375 GM in DEXTROSE 5% 100 ML IV SCH ×2 (02:22→15:17)
[2019-02-04] MEDS ORDERED: HEPARIN SOD (PORCINE) 1000 UNIT/ML 10 ML VIAL IV ONE ×2 (07:00→08:14)
[2019-02-04] MEDS ORDERED: EPOETIN ALFA 20,000 UNITS/ML VIAL IV SCH ×2 (07:00→09:00)
[2019-02-04] MEDS ORDERED: HEPARIN SOD (PORCINE) 1000 UNIT/ML 10 ML VIAL IV SCH (07:00)
[2019-02-04] MEDS ORDERED: SODIUM CHLORIDE 0.9% 1000ML 1,000 ML IV PRN ×2 (07:00→08:14)
[2019-02-04] MEDS ORDERED: IRON SUCROSE 100 MG in SYRINGE 0 ML IV PRN (08:14)
[2019-02-04 08:15] LABS: Iron 40 mcg/dl (35-175); Transferrin 92 mg/dl (200-360); Transferrin Percent Saturation 31 % (20-50)
[2019-02-04] MEDS ORDERED: INSULIN ASPART 100 UNITS/ML 3 ML PEN SC STA (08:20)
[2019-02-04] MEDS: CLOPIDOGREL BISULFATE 75 MG TAB PO SCH ×2 (08:43→15:14)
[2019-02-04] MEDS: CHOLECALCIFEROL 1,000 UNITS TAB PO SCH ×2 (08:44→15:15)
[2019-02-04] MEDS: CARVEDILOL 12.5 MG TAB PO SCH ×3 (08:44→20:45)
[2019-02-04] MEDS: TOPIRAMATE 25 MG TAB PO SCH ×3 (08:45→20:44)
[2019-02-04] MEDS ORDERED: METOCLOPRAMIDE HCL INJ 5 MG/ML 2 ML VIAL IV PRN (08:45)
[2019-02-04] MEDS: HEPARIN SOD 5,000 UNIT/0.5 ML VIAL SQ SCH ×2 (08:46→20:43)
[2019-02-04] MEDS: CALCIUM ACETATE 667 MG CAP PO SCH ×3 (08:48→17:29)
[2019-02-04] MEDS: VERAPAMIL HCL 40 MG TAB PO SCH ×2 (08:49→15:14)
[2019-02-04] MEDS: INSULIN ASPART 100 UNITS/ML 3 ML PEN SC SCH ×5 (08:55→20:42)
[2019-02-04] MEDS: ONDANSETRON INJ 2 MG/ML 2 ML VIAL IV PRN (09:02)
[2019-02-04 09:15] LABS: BUN Creatinine Ratio 4.4 (10-20); Calcium 8.6 mg/dl (8.5-10.1); Creatinine Clr Calc Pharmacy 18.6 ml/min; Est GFR (African American) 13.7; Est GFR (Non-African American) 11.8; Potassium 3.8 mmol/L (3.5-5.1)
[2019-02-04 09:28] LABS: Beta-Hydroxybutyrate 20.32 mg/dl (0.2-2.81)
[2019-02-04] MEDS ORDERED: INSULIN HUMAN REGULAR PER UNIT 4 UNITS in SYRINGE 3.96 ML IV ONE (09:30)
--- NOTE | 2019-02-04 10:18 | Nephrology Progress Note ---
Date of Service February 04, 2019 Assessment & Plan (1) End-stage renal disease (ESRD): -had HD yesterday 2 hrs to help w/ respiratory status; for 4 hrs today w/ aggressive UF as tolerated -agree w/ hospitalist plan to repeat CXR post HD to f/u on ? fluid accumulation in lungs -pt prone to LYON on tx and little helps relieve them - defer to hospitalist, cont OP meds -next HD tentatively 02/06 depending on fluid status (2) Labile essential hypertension: for now cont current meds and dialysis -- edema and breathing issues suggest he may be overloaded (3) Anemia in ESRD (end-stage renal disease): plan aggressive epo and iron w/ dialysis -daily labs -minimize/avoid transfusions as he is a potential txplt candidate Subjective feels sick to stomach, feels worse today than yesterday; endorses exertional dyspnea taking a few min to resolve getting up to bathroom and back to bed. no emesis; eating forfirst time today; BG have been high (400s). cough productive now of melara rather than green sputum. very tired Review of Systems Review of Systems: All systems reviewed & are unremarkable except as noted in HPI & below Physical Exam Constitutional: well developed and + frail appearing; no acute distress sitting on side of bed on RA; looks exhausted Eyes: no EOM movement deficit ENMT: Mouth: + dry oral mucous membranes Neck: no nuchal rigidity Respiratory: no respiratory distress and no labored breathing Auscultation: + diminished lung sounds deep breathing provokes cough Cardiovascular: Rate/Rhythm: regular rate and regular rhythm Extremities: + edema (primarily sacral) and + AV fistula (+ t/b) Gastrointestinal (Abdomen): Inspection/Auscultation: normal bowel sounds Percussion/Palpation: abdomen soft; abdomen nontender Musculoskeletal: soria, fluent speech Skin: no rashes, warm and dry Neurologic: no tremor Psychiatric: Orientation: alert and oriented x 3 Eye Contact: good eye contact Affect: + anxious affect Results & Data Vital Signs (Past 12 Hours) Vital Signs Temp Pulse Resp BP Pulse Ox 02/04/19 07:00 36.9 C 83 18 187/96 H 92 02/04/19 02:55 83 190/89 H 02/03/19 23:34 36.9 C 81 20 190/94 H 97 Laboratory Results Abnormal lab results 02/03/19 02/03/19 02/03/19 Range/Units 11:44 14:33 17:02 RBC 2.70 L (4.7-6.1) M/uL Hgb 7.9 L (14.0-18.0) g/dL Hct 23.4 L (42-52) % [place] # (Auto) 1.26 H (0.11-0.59) K/uL Sodium (136-145) mmol/L Chloride (98-107) mmol/L BUN (7-18) mg/dl Creatinine (0.6-1.4) mg/dl BUN/Creatinine Ratio (10-20) Glucose (70-99) mg/dl POC Glucose 189 H 193 H (70-99) Transferrin (200-360) mg/dl Beta-Hydroxybutyric Acd (0.2-2.81) mg/dl 02/03/19 02/03/19 02/04/19 Range/Units 20:15 23:37 07:14 RBC (4.7-6.1) M/uL Hgb (14.0-18.0) g/dL Hct (42-52) % [place] # (Auto) (0.11-0.59) K/uL Sodium (136-145) mmol/L Chloride (98-107) mmol/L BUN (7-18) mg/dl Creatinine (0.6-1.4) mg/dl BUN/Creatinine Ratio (10-20) Glucose (70-99) mg/dl POC Glucose 227 H 284 H (70-99) Transferrin 92 L (200-360) mg/dl Beta-Hydroxybutyric Acd (0.2-2.81) mg/dl 02/04/19 02/04/19 02/04/19 Range/Units 07:54 07:55 08:21 RBC (4.7-6.1) M/uL Hgb (14.0-18.0) g/dL Hct (42-52) % [place] # (Auto) (0.11-0.59) K/uL Sodium 134 L (136-145) mmol/L Chloride 97 L (98-107) mmol/L BUN 25 H (7-18) mg/dl Creatinine 5.75 H* D (0.6-1.4) mg/dl BUN/Creatinine Ratio 4.4 L (10-20) Glucose 395 H* (70-99) mg/dl POC Glucose 419 H* 397 H* (70-99) Transferrin (200-360) mg/dl Beta-Hydroxybutyric Acd 20.32 H (0.2-2.81) mg/dl 02/04/19 Range/Units 08:52 RBC (4.7-6.1) M/uL Hgb (14.0-18.0) g/dL Hct (42-52) % [place] # (Auto) (0.11-0.59) K/uL Sodium (136-145) mmol/L Chloride (98-107) mmol/L BUN (7-18) mg/dl Creatinine (0.6-1.4) mg/dl BUN/Creatinine Ratio (10-20) Glucose (70-99) mg/dl POC Glucose 446 H* (70-99) Transferrin (200-360) mg/dl Beta-Hydroxybutyric Acd (0.2-2.81) mg/dl
[2019-02-04] MEDS ORDERED: METOCLOPRAMIDE HCL INJ 5 MG/ML 2 ML VIAL IV STA (10:24)
[2019-02-04] MEDS: HEPARIN SOD (PORCINE) 1000 UNIT/ML 10 ML VIAL IV SCH ×3 (11:20→13:20)
--- NOTE | 2019-02-04 14:33 | Pharmacy Report ---
Glycemic Control Progress Note - Date of Service February 04, 2019 - Scope Glycemic Pharmacist consulted for glycemic control to write orders per [facility] inpatient glycemic control protocol. - Objective Accuchecks BSG(last 24 hours):: 02/03/19 02/03/19 02/03/19 17:02 20:15 23:37 Glucose POC Glucose 193 H 227 H 284 H 02/04/19 02/04/19 02/04/19 07:54 07:55 08:21 Glucose 395 H* POC Glucose 419 H* 397 H* 02/04/19 02/04/19 08:52 12:09 Glucose POC Glucose 446 H* 209 H HbA1c:: Hemoglobin A1c 11.5 % (4.5-5.6) H 02/03/19 06:29 - Recent Pertinent Medications The patient is currently receiving: * Basal insulin: Lantus 17 units every 24 hours (19 UNITS IF ABOVE 200 MG/DL) * Correctional Insulin: Novolog Correction per scale ACHS Goal Range: Low 110 mg/dL - High 140 mg/dL Correction Factor: 30 mg/dL/unit * Prandial insulin: Per carb ratio of 1 unit per 10 grams CHO consumed - Outpatient Anti-Diabetic Meds Lantus 17 units HS plus Novolog 7 units with meals - Assessment & Plan ASSESSMENT: * See progress note from 02/03/19 for more background info, in short: * Pt receiving SQ basal bolus insulin regimen for hyperglycemia secondary to baseline DM (outpatient regimen on hold) and currently being treated with Zosyn for possible pneumonia. * Patient is currently receiving an average of 47 units of insulin per day * 19 units of basal insulin * 28 units of prandial/correctional insulin * BSGs ranging 109 - 284 mg/dl over the past 24hrs * Changes needed to insulin regimen: * AM Fasting BSG = 397 mg/dl. This is above goal range for patient based on inpatient targets and co-morbidities. The patient received above his home dose of Lantus yesterday. His evening blood sugar was 284 mg/dL and he received 5 units of Novolog. Could patient have component of Brenda phenomenon? Will add 0400 check to see. Add a dose of 21 units for tonight if blood sugar continues over 200 mg/dL. * Post-prandial BSGs were reasonable controlled with this regimen. Gave insulin bolus of 4 units (0.05 units/kg) this morning- delayed because waiting for potassium to return. Patient then went to dialysis. 2 hour check was decreased to 209 mg/dL. * Total daily dose = ~50 units. PLAN FOR INPATIENT GLYCEMIC CONTROL: * Lantus 17-21 units SQ HS * lantus 17 units for blood sugar under 120 mg/dL * Lantus 19 units for blood sugar 120-180 mg/dL * Lantus 21 units for blood sugar over 180 mg/dL * Continuing correction factor of 30 mg/dl/unit * Continuing carb ratio of 1 unit per 10 grams CHO consumed * Continuing goal range of Low 110 mg/dL - High 140 mg/dL RECOMMENDATIONS FOR DISCHARGE: * Patient's HbA1C indicates poor control - recommend tight follow-up with b2b appointment setter. * Please note that the plan above was derived based on current level of insulin resistance and hospital stress. These recommendations are appropriate for inpatient admission only. Plan of care upon discharge will need to be reassessed to avoid potential outpatient hypo/hyperglycemia. Thank you.
--- NOTE | 2019-02-04 14:40 | Hospitalist Progress Note ---
Date of Service February 04, 2019 Assessment & Plan (1) HCAP (healthcare-associated pneumonia): Patient admitted for left lower lobe pneumonia -and by admitting team that this pneumonia may be considered to be hospital acquire pneumonia given history of hospitalizations and as patient is a dialysis patient starting the year -received Cefepime in the ED and then as Zosyn on admission -will continue IV Zosyn as MRSA negative -02/02/19 sputum cultures were positive for haemophilus influenzae beta lactamase positive as of 02/04/19 Have discussed with infectious disease Dr. Gonzalez about continuing IV Zosyn for now. droplet precautions instituted as it may be possible that haemophilus influenzae is a cause of the pneumonia and it is not clear if this asymptomatic colonizer of upper airway -follow up 2 view CXR scheduled for 02/04/19 after the 02/04/19 dialysis session (2) Hypertension: -Continue amlodipine, carvedilol, doxazosin -blood pressure improved with dialysis (3) ESRD (end stage renal disease): -usual Dialysis schedule is Wednesday, , Wednesday -patient had outpatient dialysis session in the AM of 02/02/19 prior to ED presentation -patient completed dialysis on 02/03/19 and 02/04/19 Hypokalemia -serum potassium 3.2 to 3 on 02/03/19 -serum potassium 3.8 on 02/04/19, monitor (4) Anemia in ESRD (end-stage renal disease): -Hgb downtrended from 9.4 on 02/02/19 and stabilized at 7.8 om 02/03/19 and 7.9 on 02/04/19 -nephrology ordered Epoetin on 02/04/19 (5) TIA (transient ischemic attack): History of TIA in the past -Continue clopidogrel (6) Diabetes mellitus type 1 with complications: Type 1 diabetes 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 Explained to patient that 02/02/19 sputum cultures were positive for haemophilus influenzae beta lactamase positive. Have discussed with infectious disease Dr. Gonzalez about continuing IV Zosyn for now. droplet precautions instituted as it may be possible that haemophilus influenzae is a cause of the pneumonia and it is not clear if this asymptomatic colonizer of upper airway. patient's blood pressure also improved with hypertension. hyperglycemia this AM. patient received additional insulin. patient not currently vomiting. no chest pain. no headache. no dizziness. Physical Exam Constitutional: + ill appearing Eyes: PERRL, conjunctivae normal, anicteric sclerae EOM intact bilaterally Neck: trachea midline, no thyromegaly normal visual inspection Respiratory: normal respiratory effort Cardiovascular: Rate/Rhythm: regular rate and regular rhythm Gastrointestinal (Abdomen): normal bowel sounds, soft, nontender, no hepatosplenomegaly Musculoskeletal: Head/Neck/Chest: normocephalic and head atraumatic Neurologic: PERRL, EOMI, accommodation nl, no face palsy, no dysarthria CN's II-XI intact bilaterally Psychiatric: A+Ox3, euthymic affect Results & Data Vital Signs (Past 12 Hours) Vital Signs Temp Pulse Pulse Resp BP BP Pulse Ox 02/04/19 14:00 72 144/80 H 02/04/19 13:40 70 127/74 02/04/19 13:20 68 126/73 02/04/19 13:00 69 141/77 H 02/04/19 12:40 68 136/77 02/04/19 12:20 67 129/75 02/04/19 12:00 69 129/74 02/04/19 11:40 69 124/70 02/04/19 11:20 75 130/77 02/04/19 11:00 81 147/84 H 02/04/19 10:40 84 179/99 H 02/04/19 10:25 83 189/103 H 02/04/19 10:15 36.9 C 95 H 02/04/19 07:00 36.9 C 83 18 187/96 H 92 02/04/19 02:55 83 190/89 H (1) Hypertension Hypertension type: unspecified Qualified Code(s): I10 - Essential (primary) hypertension
--- NOTE | 2019-02-04 15:59 | XRay Report ---
XR chest 2V routine CLINICAL HISTORY: 33 years-old Male presenting with follow up lung infiltrates, pneumonia for a few d ays, shortness of breath, history of a cold for 3 weeks. TECHNIQUE: PA and lateral views of the chest were obtained. COMPARISON: 02/03/2019. FINDINGS: Cardiomediastinal silhouette normal. Interval decrease in patchy opacities in the right mid to lower lung. Trace left pleural effusion. No pneumothorax. Osseous structures normal. Upper abdomen normal. IMPRESSION: 1. Interval decrease in patchy right mid to lower lung infiltrates compatible with resolving pneumon ia. 2. Trace left parapneumonic effusion. Electronically signed by: Kareem Mendoza M.D. 02/04/2019 3:58 PM
[2019-02-04] MEDS: AMLODIPINE BESYLATE 5 MG TAB PO SCH (20:42)
[2019-02-04] MEDS: INSULIN GLARGINE SOLOSTAR 100 UNITS/ML 3 ML PEN SC SCH (20:42)
[2019-02-04] MEDS: DOXAZosin MESYLATE TAB 2 MG TAB PO SCH (20:44)
[2019-02-04] MEDS: ATORVASTATIN 40 MG TAB PO SCH (20:44)
[2019-02-04] MEDS ORDERED: ZOLPIDEM TARTRATE 5 MG TAB PO PRN (21:00)
[2019-02-05] MEDS: PIPERACILLIN/TAZOBACTAM 3.375 GM in DEXTROSE 5% 100 ML IV SCH (03:55)
[2019-02-05] MEDS ORDERED: INSULIN ASPART 100 UNITS/ML 3 ML PEN SC SCH (04:00)
[2019-02-05] MEDS ORDERED: INSULIN HUMAN REGULAR PER UNIT 6 UNITS in SYRINGE 5.94 ML IV SCH (04:15)
[2019-02-05] MEDS: ONDANSETRON INJ 2 MG/ML 2 ML VIAL IV PRN (04:43)
[2019-02-05] MEDS: INSULIN ASPART 100 UNITS/ML 3 ML PEN SC SCH ×4 (08:09→21:34)
[2019-02-05] MEDS: HEPARIN SOD 5,000 UNIT/0.5 ML VIAL SQ SCH ×2 (08:11→21:32)
[2019-02-05] MEDS: VERAPAMIL HCL 40 MG TAB PO SCH (08:12)
[2019-02-05] MEDS: CHOLECALCIFEROL 1,000 UNITS TAB PO SCH (08:12)
[2019-02-05] MEDS: CLOPIDOGREL BISULFATE 75 MG TAB PO SCH (08:12)
[2019-02-05] MEDS: TOPIRAMATE 25 MG TAB PO SCH ×2 (08:13→21:33)
[2019-02-05] MEDS: CALCIUM ACETATE 667 MG CAP PO SCH ×3 (08:13→17:13)
[2019-02-05] MEDS: CARVEDILOL 6.25 MG TAB PO SCH ×2 (08:23→21:32)
[2019-02-05 08:49] LABS: Basophils # (auto) 0.05 K/uL (0-0.2); Basophils % (auto) 0.5 %; Eosinophils % (auto) 1.1 %; Hematocrit (blood only) 30.7 % (42-52); Hemoglobin 10.4 g/dL (14.0-18.0); Immature Granulocytes # (auto) 0.05 K/uL (0.00-0.02); Immature Granulocytes % (auto) 0.5 %; Lymphocytes # (auto) 1.07 K/uL (1.2-3.4); Lymphocytes % (auto) 11.7 %; Mean Corpuscular Volume 87.2 fL (80-100); Mean Platelet Volume 9.3 fL (7.4-10.4); Monocytes # (auto) 0.67 K/uL (0.11-0.59); Monocytes % (auto) 7.3 %; Neutrophils # (auto) 7.21 K/uL (1.4-6.5); Neutrophils % (auto) 78.9 %; Platelet Count 385 K/uL (130-400); RDW Coefficient of Variation 14.4 % (11.5-14.5); RDW Standard Deviation 45.6 fL (36.4-46.3); Red Blood Count 3.52 M/uL (4.7-6.1); White Blood Count 9.15 K/uL (4.8-10.8)
[2019-02-05 08:54] LABS: Mean Corpuscular Hgb Conc 33.9 g/dL (32-36)
[2019-02-05] MEDS ORDERED: INSULIN GLARGINE SOLOSTAR 100 UNITS/ML 3 ML PEN SC SCH ×2 (09:00→21:00)
[2019-02-05 09:20] LABS: Albumin Globulin Ratio 0.3 (0.9-2); Albumin Level 1.7 gm/dl (3.4-5.0); BUN Creatinine Ratio 5.3 (10-20); Bilirubin,Total 0.3 mg/dl (0.2-1); Calcium 8.7 mg/dl (8.5-10.1); Creatinine Clr Calc Pharmacy 19.6 ml/min; Est GFR (African American) 15.1; Potassium 3.5 mmol/L (3.5-5.1); Total Protein 6.7 gm/dl (6.4-8.2)
[2019-02-05 09:35] LABS: Beta-Hydroxybutyrate 31.36 mg/dl (0.2-2.81)
[2019-02-05] MEDS ORDERED: INSULIN HUMAN REGULAR BOLUS IV ONE (11:00)
[2019-02-05] MEDS: INSULIN REGULAR 250 UNITS in SODIUM CHLORIDE 0.9% 247.5 ML IV SCH ×2 (11:02→23:21)
--- NOTE | 2019-02-05 12:15 | Hospitalist Progress Note ---
Date of Service February 05, 2019 Assessment & Plan (1) HCAP (healthcare-associated pneumonia): Patient admitted for left lower lobe pneumonia -and by admitting team that this pneumonia may be considered to be hospital acquire pneumonia given history of hospitalizations and as patient is a dialysis patient starting the year -received Cefepime in the ED and then as Zosyn on admission -will continue IV Zosyn as MRSA negative -02/02/19 sputum cultures were positive for haemophilus influenzae beta lactamase positive as of 02/04/19 Have discussed with infectious disease Dr. Gonzalez about continuing IV Zosyn for now. droplet precautions instituted as it may be possible that haemophilus influenzae is a cause of the pneumonia and it is not clear if this asymptomatic colonizer of upper airway -follow up 2 view CXR scheduled for 02/04/19 after the 02/04/19 dialysis session shows clearer lung rivas and as IMPRESSION: 1. Interval decrease in patchy right mid to lower lung infiltrates compatible with resolving pneumonia. 2. Trace left parapneumonic effusion. -will hope to transition patient from IV antibiotics to an oral regimen starting 02/06/19, appreciate Infectious disease input on these plans (2) Hypertension: -Continue amlodipine, carvedilol, doxazosin -blood pressure improved with dialysis -perhaps when patient can be transition off IV Zosyn, patient's blood pressure will be better -monitor blood pressure closely (3) ESRD (end stage renal disease): -usual Dialysis schedule is Wednesday, , Wednesday -patient had outpatient dialysis session in the AM of 02/02/19 prior to ED presentation -patient completed dialysis on 02/03/19 and 02/04/19 -next plan dialysis session is 02/05/19 Hypokalemia -serum potassium 3.2 to 3 on 02/03/19 -serum potassium 3.8 on 02/04/19 -serum potassium is 3.5 on 02/05/19 monitor (4) Anemia in ESRD (end-stage renal disease): -Hgb downtrended from 9.4 on 02/02/19 and stabilized at 7.8 om 02/03/19 and 7.9 on 02/04/19 -nephrology ordered Epoetin on 02/04/19 -hgb is 10.4 on 02/05/19 (5) TIA (transient ischemic attack): History of TIA in the past -Continue clopidogrel (6) Diabetes mellitus type 1 with complications: Type 1 diabetes mellitis with hyperglycemia with usp current use of insulin -continue management in the hospital with Lantus and short acting insulin as per pharmacy glycemic consult -pharmacist has at times initiated IV insulin and currently patient on IV insulin due to hyperglycemia - glucose as high as over 400 during hospital stay -have discussed with patient that at home his glucose control was better, he reports at home he uses a long acting insulin of 17 units at night and covered himself with sliding scale insulin, potentially when in the hospital patient eats more calories and also stress response from illness causing more problems with glucose control (7) Migraines: -Continue Topamax and verapamil (8) DVT prophylaxis: -SQ heparin as q12 hours Subjective Patient currently on IV insulin because blood sugar was high today. breathing on room air. blood pressure high today. no headache. no dizziness. denies vomiting. no abdomen pain. no chest pain. discuss plans for dialysis session tomorrow on Wednesday. Physical Exam Constitutional: + ill appearing Eyes: PERRL, conjunctivae normal, anicteric sclerae EOM intact bilaterally Neck: trachea midline, no thyromegaly normal visual inspection Respiratory: normal respiratory effort (mild crackles) Cardiovascular: Rate/Rhythm: regular rate and regular rhythm Gastrointestinal (Abdomen): normal bowel sounds, soft, nontender, no hepatosplenomegaly Musculoskeletal: Head/Neck/Chest: normocephalic and head atraumatic Neurologic: PERRL, EOMI, accommodation nl, no face palsy, no dysarthria CN's II-XI intact bilaterally Psychiatric: A+Ox3, euthymic affect Results & Data Vital Signs (Past 12 Hours) Vital Signs Temp Pulse Resp BP Pulse Ox 02/05/19 07:29 37.0 C 79 18 179/93 H 93 (1) Hypertension Hypertension type: unspecified Qualified Code(s): I10 - Essential (primary) hypertension
--- NOTE | 2019-02-05 13:46 | Pharmacy Report ---
Glycemic Control Progress Note - Date of Service February 05, 2019 - Scope Glycemic Pharmacist consulted for glycemic control to write orders per [facility] inpatient glycemic control protocol. - Objective Accuchecks BSG(last 24 hours):: 02/04/19 02/04/19 02/04/19 15:02 16:49 20:11 Glucose POC Glucose 184 H 241 H 206 H 02/05/19 02/05/19 02/05/19 03:54 04:28 07:39 Glucose POC Glucose 399 H* 372 H* 434 H* 02/05/19 02/05/19 02/05/19 08:38 10:38 11:57 Glucose 418 H* POC Glucose 409 H* 359 H* 02/05/19 12:50 Glucose POC Glucose 347 H* HbA1c:: Hemoglobin A1c 11.5 % (4.5-5.6) H 02/03/19 06:29 - Recent Pertinent Medications The patient is currently receiving: * Basal insulin: Lantus 17-21 units every 24 hours at bedtime * Correctional Insulin: Novolog Correction per scale ACHS Goal Range: Low 110 mg/dL - High 140 mg/dL Correction Factor: 30 mg/dL/unit * Prandial insulin: Per carb ratio of 1 unit per 10 grams CHO consumed - Outpatient Anti-Diabetic Meds Lantus 17 units at bedtime plus Novolog scale (7 units with meals) - Assessment & Plan ASSESSMENT: * See progress note from 02/03/19 for more background info, in short: * Pt receiving SQ basal bolus insulin regimen for hyperglycemia secondary to baseline DM (outpatient regimen on hold) and infection (currently on Zosyn) * Patient is currently receiving an average of 55 units of insulin per day * 21 units of basal insulin * 34 units of prandial/correctional insulin * BSGs ranging 184 - 446 mg/dl over the past 24hrs * Changes needed to insulin regimen: * AM Fasting BSG = 434 mg/dl. This is above goal range for patient based on inpatient targets and co-morbidities. This picture does suggest a gracia phenomenon (increase in blood sugar between 2 AM and 8 AM) BUT the patient denies this problem at home. He confirms that he takes 17 units of Lantus and blood sugars can go up into the 200s but does not have a problem with blood sugars in the 400s. Due to concern with continued elevated blood sugars even with IV insulin at 0400 and extra Novolog - started insulin infusion. Gave additional 5 units of Lantus this morning. Schedule dose of 20 units of Lantus. * Post-prandial BSGs will be managed by insulin infusion * Total daily dose = 50-60 units. This is concerning as this is close to 1 unit/kg ... which is close to type 2 insulin dosing. Will monitor closely. * Additional notes / comments: Patient is concerned about his blood sugars. Will continue insulin infusion. Stop if the infusion states hold. If this occurs then notify pharmacy and q2 or q4 hour checks can be started per patient request. PLAN FOR INPATIENT GLYCEMIC CONTROL: * Starting IV insulin infusion per moderate (moderate/severe) stress protocol * Goal Range 140 - 200 mg/dl * In the critical care setting, continuous IV insulin infusion has been shown to be the best method for achieving glycemic targets. * Basal insulin * Lantus 20 units SQ HS * Please note that the plan above was derived based on current level of insulin resistance and hospital stress. These recommendations are appropriate for inpatient admission only. Plan of care upon discharge will need to be reassessed to avoid potential outpatient hypo/hyperglycemia. Thank you.
--- NOTE | 2019-02-05 14:47 | Nephrology Progress Note ---
Date of Service February 05, 2019 Assessment & Plan (1) End-stage renal disease (ESRD): -had HD yesterday 2 hrs to help w/ respiratory status; for 4 hrs today w/ aggressive UF as tolerated -agree w/ hospitalist plan to repeat CXR post HD to f/u on ? fluid accumulation in lungs -pt prone to LYON on tx and little helps relieve them - defer to hospitalist, cont OP meds -next HD tentatively 02/06 depending on fluid status (2) Labile essential hypertension: for now cont dialysis -- edema and breathing issues suggest he may be overloaded; I also increased amlodipine back to 10 mg and coreg doubled today -- cont to follow (3) Anemia in ESRD (end-stage renal disease): plan aggressive epo and iron w/ dialysis -daily labs -minimize/avoid transfusions as he is a potential txplt candidate Subjective feels a bit better; 3.5L off yesterday, CXR improved. still w/ elevated BG, BP, exertional dyspnea Review of Systems Review of Systems: All systems reviewed & are unremarkable except as noted in HPI & below Physical Exam Constitutional: well developed and + frail appearing; no acute distress on RA Eyes: no EOM movement deficit ENMT: Mouth: + dry oral mucous membranes Neck: no nuchal rigidity Respiratory: no respiratory distress and no labored breathing Auscultation: + diminished lung sounds Cardiovascular: Rate/Rhythm: regular rate and regular rhythm Extremities: + edema (primarily sacral, less today) and + AV fistula (+ t/b) Gastrointestinal (Abdomen): Inspection/Auscultation: normal bowel sounds Percussion/Palpation: abdomen soft; abdomen nontender Musculoskeletal: soria Skin: no rashes, warm and dry Psychiatric: A+Ox3, euthymic affect Orientation: alert and oriented x 3 Eye Contact: good eye contact Affect: + anxious affect Results & Data Vital Signs (Past 12 Hours) Vital Signs Temp Pulse Resp BP Pulse Ox 02/05/19 07:29 37.0 C 79 18 179/93 H 93
[2019-02-05 15:35] LABS: Albumin Globulin Ratio 0.3 (0.9-2); Albumin Level 1.6 gm/dl (3.4-5.0); BUN Creatinine Ratio 5.5 (10-20); Beta-Hydroxybutyrate 0.91 mg/dl (0.2-2.81); Bilirubin,Total 0.2 mg/dl (0.2-1); Creatinine Clr Calc Pharmacy 17.6 ml/min; Est GFR (African American) 13.3; Est GFR (Non-African American) 11.5; Globulin 4.6 gm/dl (2.5-4.0); Potassium 3.7 mmol/L (3.5-5.1); Total Protein 6.2 gm/dl (6.4-8.2)
[2019-02-05] MEDS: AMOXICILLIN/CLAVULANATE 500 MG TAB PO SCH (16:00)
--- NOTE | 2019-02-05 16:43 | Infectious Disease Consult ---
Date of Consultation February 05, 2019 Assessment & Plan (1) Haemophilus influenzae pneumonia: 33-year-old male with end-stage renal disease, diabetes mellitus now with pneumonia with positive sputum culture for Haemophilus influenza. Patient appears to be clinically responding to antibiotics. Agree with transition to oral antibiotics with Augmentin. Will follow. History of Present Illness Reason for Consultation: Haemophilus influenza beta-lactamase positive in sputum Attending Physician: Darnell Awan MD History of Present Illness 33-year-old male with end-stage renal disease on dialysis, type 1 diabetes mellitus, hypertension, fatty liver, recently hospitalized for hypertensive urgency, who is now admitted with 3-day history of worsening shortness of breath and cough along with low-grade fevers. He was seen by his primary care physician and referred to the hospital for admission. He was found on chest x- ray to have evidence of left lower lobe pneumonia, was treated empirically with Zosyn. Has improved since admission, and has been afebrile. Sputum culture now growing a beta-lactamase positive Haemophilus influenza. Patient denies any significant travel or exposure history otherwise. Allergies Allergy/AdvReac Type Severity Reaction Status Date / Time No Known Allergies Allergy Verified 02/02/19 17:29 Home Medications Home Medications Medication Instructions Recorded Confirmed Type atorvastatin 40 mg PO HS 09/28/18 02/02/19 History calcium acetate 2,668 mg PO TIDM 09/28/18 02/02/19 History cholecalciferol (vitamin D3) 5,000 units PO QAM 09/28/18 02/02/19 History [Vitamin D3] clopidogrel 75 mg PO QAM 09/28/18 02/02/19 History carvedilol [Coreg] 12.5 mg PO BID 11/03/18 02/02/19 History Lantus U-100 Insulin 17 units SUBCUT HS 11/20/18 02/02/19 History Novolog U-100 Insulin aspart 0 units SUBCUT UD 12/20/18 02/02/19 History doxazosin 2 mg PO HS 12/20/18 02/02/19 History topiramate [Topamax] 25 mg PO BID #20 tab 12/20/18 02/02/19 Rx verapamil 120 mg PO DAILY #30 tab 01/02/19 02/02/19 Rx amlodipine 5 mg PO HS 02/02/19 02/02/19 History Patient History Medical History Migraines (Chronic) End-stage renal disease (ESRD) (Chronic) Pericardial effusion without cardiac tamponade (Chronic) Anemia in ESRD (end-stage renal disease) (Chronic) Prolonged QT interval (Chronic) ESRD (end stage renal disease) (Chronic) TIA (transient ischemic attack) (Chronic) Nephrotic syndrome due to diabetes mellitus (Chronic) Fatty liver (Chronic) Charcot foot due to diabetes mellitus (Chronic) Diabetic nephropathy (Chronic) Diabetic neuropathy (Chronic) Diabetic retinopathy (Chronic) 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) Hypertension (Chronic) Surgical History S/P eye surgery (Chronic) Family History Mother Hypertension Grandfather (Maternal) Diabetes Grandmother (Maternal) Diabetes Grandmother (Paternal) Diabetes Social History Preferred Language: Belarusian Communication Ability: Effective Visual Impairment: Limited Marketing Services Specialist Required: No Beliefs That Will Affect Care: None marital status: single Current Living Situation: Alone current occupational status: employed Other Information That Helps Us Care for You: No Feels Safe at Home: Yes Safety Concerns: Feels Safe At This Time Smoking Status: Former smoker Tobacco Type: cigarettes Do You Dip or Chew Tobacco: No Second Hand Exposure: No Tobacco Cessation Education Requested by Patient: No Hx Alcohol Use: No Hx Substance Use: No Review of Systems Review of Systems: All systems reviewed & are unremarkable except as noted in HPI & below Physical Exam Constitutional: WD/WN, vitals as above comfortable; no acute distress Eyes: PERRL, conjunctivae normal, anicteric sclerae ENMT: external ear and nose normal, oropharynx normal Neck: trachea midline, no thyromegaly neck nontender Respiratory: normal respiratory effort and + uses accessory muscles; no respiratory distress Auscultation: + rales (Left-sided) Cardiovascular: Rate/Rhythm: regular rate and regular rhythm Heart Sounds: normal S1 and normal S2; no gallop, no murmur and no cardiac rub Vessels: normal peripheral pulses; no JVD Gastrointestinal (Abdomen): normal bowel sounds, soft, nontender, no hepatosplenomegaly Musculoskeletal: no cyanosis or clubbing, extremities motor strength 5/5 Spine: thoracic spine normal to inspection and lumbar spine normal to inspection; no cervical spinal tenderness Skin: no rashes, warm and dry normal turgor; no lesions Neurologic: patellar DTR's 2+ bilat, sensation intact no focal motor defi cits Psychiatric: A+Ox3, euthymic affect Orientation: cooperative Lymphatic: no cervical or axillary lymphadenopathy no inguinal lymphadenopathy Results & Data Vital Signs (Past 12 Hours) Vital Signs Temp Pulse Resp BP Pulse Ox 02/05/19 15:32 36.6 C 67 18 168/89 H 95 02/05/19 07:29 37.0 C 79 18 179/93 H 93 Laboratory Results Short CBC 02/05/19 Range/Units 08:38 WBC 9.15 (4.8-10.8) K/uL Hgb 10.4 L (14.0-18.0) g/dL Hct 30.7 L (42-52) % Plt Count 385 (130-400) K/uL BMP 02/05/19 02/05/19 08:38 14:46 Sodium 132 L 134 L Potassium 3.5 3.7 Chloride 93 L 95 L Carbon Dioxide 26 31 BUN 28 H 32 H Creatinine 5.29 H* D 5.89 H* D Glucose 418 H* 273 H Calcium 8.7 9.0 Liver Function 02/05/19 02/05/19 Range/Units 08:38 14:46 Total Bilirubin 0.3 0.2 (0.2-1) mg/dl AST 8 L 8 L (15-37) U/L ALT 10 L 10 L (12-78) U/L Alkaline Phosphatase 92 87 (45-117) U/L Albumin 1.7 L 1.6 L (3.4-5.0) gm/dl Diagnostic Findings Microbiology 02/02/19 21:35 Sputum, Expectorated Gram Stain - Final 02/02/19 21:35 Sputum, Expectorated Sputum Culture - Final Haemo.influ betalactamase pos 02/02/19 17:56 Blood Aerobic Blood Culture - Preliminary No growth in Aerobic bottle after 48 hours. 02/02/19 17:56 Blood Anaerobic Blood Culture - Preliminary No growth in Anaerobic bottle after 48 hours. 02/02/19 17:56 Blood Aerobic Blood Culture - Preliminary No growth in Aerobic bottle after 48 hours. 02/02/19 17:56 Blood Anaerobic Blood Culture - Preliminary No growth in Anaerobic bottle after 48 hours. XR chest 2V routine CLINICAL HISTORY: 33 years-old Male presenting with follow up lung infiltrates, pneumonia for a few days, shortness of breath, history of a cold for 3 weeks. TECHNIQUE: PA and lateral views of the chest were obtained. COMPARISON: 02/03/2019. FINDINGS: Cardiomediastinal silhouette normal. Interval decrease in patchy opacities in the right mid to lower lung. Trace left pleural effusion. No pneumothorax. Osseous structures normal. Upper abdomen normal. IMPRESSION: 1. Interval decrease in patchy right mid to lower lung infiltrates compatible with resolving pneumonia. 2. Trace left parapneumonic effusion. Electronically signed by: Kareem Mendoza M.D. 02/04/2019 3:58 PM Dictated: 02/04/19 1556
[2019-02-05] MEDS: DOXAZosin MESYLATE TAB 2 MG TAB PO SCH (21:33)
[2019-02-05] MEDS: ATORVASTATIN 40 MG TAB PO SCH (21:33)
[2019-02-05] MEDS: AMLODIPINE BESYLATE 5 MG TAB PO SCH (21:34)
[2019-02-06] MEDS: INSULIN REGULAR 250 UNITS in SODIUM CHLORIDE 0.9% 247.5 ML IV SCH ×3 (01:19→05:29)
[2019-02-06] MEDS ORDERED: HEPARIN SOD (PORCINE) 1000 UNIT/ML 10 ML VIAL IV ONE (08:13)
[2019-02-06] MEDS ORDERED: SODIUM CHLORIDE 0.9% 1000ML 1,000 ML IV PRN (08:13)
[2019-02-06] MEDS ORDERED: HEPARIN SOD (PORCINE) 1000 UNIT/ML 10 ML VIAL IV SCH (08:15)
[2019-02-06] MEDS: CALCIUM ACETATE 667 MG CAP PO SCH ×3 (08:55→17:08)
[2019-02-06] MEDS: CARVEDILOL 6.25 MG TAB PO SCH ×2 (08:56→21:39)
[2019-02-06] MEDS: CHOLECALCIFEROL 1,000 UNITS TAB PO SCH (08:58)
[2019-02-06] MEDS: CLOPIDOGREL BISULFATE 75 MG TAB PO SCH (08:58)
[2019-02-06] MEDS: TOPIRAMATE 25 MG TAB PO SCH ×2 (09:00→21:38)
[2019-02-06] MEDS: AMOXICILLIN/CLAVULANATE 500 MG TAB PO SCH (09:00)
[2019-02-06] MEDS: VERAPAMIL HCL 40 MG TAB PO SCH (09:00)
[2019-02-06] MEDS: ACETAMINOPHEN 325 MG TAB PO PRN (09:16)
[2019-02-06] MEDS: HEPARIN SOD 5,000 UNIT/0.5 ML VIAL SQ SCH ×2 (09:19→21:38)
[2019-02-06] MEDS: INSULIN ASPART 100 UNITS/ML 3 ML PEN SC SCH ×4 (09:28→21:42)
--- NOTE | 2019-02-06 09:50 | XRay Report ---
XR abdomen min 2V CLINICAL HISTORY: 33 years-old Male presenting with pneumonia and left flank pain. TECHNIQUE: Single supine view of the abdomen was obtained. COMPARISON: CT from 12/30/2018 and plain radiograph and abdomen from 11/06/2018. FINDINGS: Mottled lucencies in the epigastrium likely gastric contents. Moderate stool burden throughout the co scott. Nonobstructive bowel gas pattern. No gross pneumoperitoneum. Allowing for bowel gas and stool, no calcifications to suggest nephrolithiasis. Stable distribution o f pelvic phleboliths. Osseous structures normal. Lung bases clear. IMPRESSION: 1. Moderate stool burden may suggest constipation. No bowel obstruction. Electronically signed by: Kareem Mendoza M.D. 02/06/2019 9:49 AM
--- NOTE | 2019-02-06 09:51 | XRay Report ---
XR chest 2V routine HISTORY: 33 years-old Male pneumonia, left flank pain acute left-sided flank pain with pneumonia COMPARISON: Abdominal radiographs of same day, chest radiograph 02/04/2019 TECHNIQUE: PA and lateral views of the chest FINDINGS: Cardiomediastinal and hilar silhouettes are unchanged. No pneumothorax. Right lung is clear. Trace le ft pneumothorax. Unchanged patchy left lower lobe and lingular alveolar opacities. Bones appear unrem arkable. IMPRESSION: 1. Unchanged patchy alveolar opacities of the lingula and basal left lower lobe suggestive of ongoing pneumonia. 2. Unchanged trace left parapneumonic effusion. The above report was generated using voice recognition software. It may contain grammatical, syntax o r spelling errors. Electronically signed by: Asim West M.D. 02/06/2019 9:49 AM
--- NOTE | 2019-02-06 10:59 | Pharmacy Report ---
Glycemic Control Progress Note - Date of Service February 06, 2019 - Scope Glycemic Pharmacist consulted for glycemic control to write orders per [facility] inpatient glycemic control protocol. - Objective Accuchecks BSG(last 24 hours):: 02/05/19 02/05/19 02/05/19 11:57 12:50 14:00 Glucose POC Glucose 359 H* 347 H* 334 H* 02/05/19 02/05/19 02/05/19 14:31 14:46 15:00 Glucose 273 H POC Glucose 326 H* 279 H 02/05/19 02/05/19 02/05/19 16:01 16:38 17:56 Glucose POC Glucose 237 H 218 H 183 H 02/05/19 02/05/19 02/05/19 18:58 21:11 23:13 Glucose POC Glucose 157 H 174 H 139 H 02/06/19 02/06/19 02/06/19 00:14 01:12 02:12 Glucose POC Glucose 140 H 121 H 114 H 02/06/19 02/06/19 02/06/19 03:16 04:14 05:18 Glucose POC Glucose 119 H 118 H 112 H 02/06/19 02/06/19 02/06/19 06:11 07:11 07:34 Glucose POC Glucose 113 H 140 H 150 H 02/06/19 02/06/19 02/06/19 08:15 09:13 10:13 Glucose POC Glucose 153 H 192 H 225 H HbA1c:: Hemoglobin A1c 11.5 % (4.5-5.6) H 02/03/19 06:29 - Recent Pertinent Medications The patient is currently receiving: * Basal insulin: Lantus 5 units in the morning and then 20 units last night * Correctional Insulin: Novolog Correction per scale ACHS Goal Range: Low 140 mg/dL - High 200 mg/dL Correction Factor: 30 mg/dL/unit * Prandial insulin: Per carb ratio of 1 unit per 10 grams CHO consumed - Outpatient Anti-Diabetic Meds Lantus 17 units HS Novolog with meals (7 units) - Assessment & Plan ASSESSMENT: * See progress note from 02/03/19 for more background info, in short: * Pt receiving SQ basal bolus insulin regimen for hyperglycemia secondary to baseline DM (outpatient regimen on hold) and infection (H flu respiratory infection now on oral Augmentin) * Patient is currently receiving an average of ~35 units of insulin per day PLUS insulin infusion * 20 units of basal insulin * 15 units of prandial/correctional insulin * BSGs ranging 139 - 409 mg/dl over the past 24hrs * Changes needed to insulin regimen: * AM Fasting BSG = 113 mg/dl ON INSULIN INFUSION. Insulin infusion titrated down last night to 0.8 units/hr indicating that 25 units of Lantus may be sufficient for patient. Confirmed with patient again that he takes 17 units of basal. I asked what was the highest dose he has tolerated- the patient was not certain but thought it might be 25 units. Will restart patient's home dose of Lantus 17 units here at lunch then have a scale at bedtime for patient to be QS to 17 units, 21 units, or 25 units. * Post-prandial BSGs are controlled via drip. Will continue current weight- based stress of 2 dosing. * Total daily dose is really unknown at this point. Unsure if there is some other underlying process that is causing an increased requirement for insulin. Infectious disease is seeing patient - the patient is improving. Labs from yesterday were normal not suggesting any underlying dehydration or possible HHS/DKA. PLAN FOR INPATIENT GLYCEMIC CONTROL: * Starting Lantus 17 units x1 then scale this evening of 0-8 units units SQ HS * Continuing correction factor of 30 mg/dl/unit * Continuing carb ratio of 1 unit per 10 grams CHO consumed * Continuing goal range to Low 110 mg/dL - High 140 mg/dL RECOMMENDATIONS FOR DISCHARGE: * will contact outpatient provider (Yvon at [facility] - email [email or web address]) to update him- patient requested that I do this and I obtained permission. * Encouraged patient to follow-up with pharmacist. * Please note that the plan above was derived based on current level of insulin resistance and hospital stress. These recommendations are appropriate for inpatient admission only. Plan of care upon discharge will need to be reassessed to avoid potential outpatient hypo/hyperglycemia. Thank you.
[2019-02-06] MEDS ORDERED: INSULIN GLARGINE SOLOSTAR 100 UNITS/ML 3 ML PEN SC ONE (11:00)
--- NOTE | 2019-02-06 13:29 | Hospitalist Progress Note ---
Date of Service February 06, 2019 Assessment & Plan (1) HCAP (healthcare-associated pneumonia): Patient admitted for left lower lobe pneumonia -and by admitting team that this pneumonia may be considered to be hospital acquire pneumonia given history of hospitalizations and as patient is a dialysis patient starting the year -received Cefepime in the ED and then as Zosyn on admission -will continue IV Zosyn as MRSA negative -02/02/19 sputum cultures were positive for haemophilus influenzae beta lactamase positive as of 02/04/19 Have discussed with infectious disease Dr. Gonzalez about continuing IV Zosyn for now. droplet precautions instituted as it may be possible that haemophilus influenzae is a cause of the pneumonia and it is not clear if this asymptomatic colonizer of upper airway -follow up 2 view CXR scheduled for 02/04/19 after the 02/04/19 dialysis session shows clearer lung rivas and as IMPRESSION: 1. Interval decrease in patchy right mid to lower lung infiltrates compatible with resolving pneumonia. 2. Trace left parapneumonic effusion. -transitioned patient from IV antibiotics to an oral regimen starting 02/06/19, give Augmentin renally dose which is 500 mg daily and additional 250 mg after dialysis sessions (am avoiding oral doxycycline to avoid potential drug interactions with patient's calcium acetate am avoiding azithromycin to avoid prolonging the QTc interval) -left lower flank pain is pleuritic chest pain, patient encouraged to use incentive spirometer (2) Hypertension: -on combination of amlodipine, carvedilol, doxazosin, verapamil -currently on increased amlodipine as 10 mg qHS since 02/05/19 and increased carv edilol 18.75 mg BID since 02/05/19 (3) ESRD (end stage renal disease): -usual Dialysis schedule is Wednesday, , Wednesday -patient had outpatient dialysis session in the AM of 02/02/19 prior to ED presentation -patient completed dialysis on 02/03/19 and 02/04/19 -next plan dialysis session is 02/06/19 Hypokalemia -serum potassium 3.2 to 3 on 02/03/19 -serum potassium 3.8 on 02/04/19 -serum potassium is 37 on 02/05/19 monitor (4) Anemia in ESRD (end-stage renal disease): -Hgb downtrended from 9.4 on 02/02/19 and stabilized at 7.8 om 02/03/19 and 7.9 on 02/04/19 -nephrology ordered Epoetin on 02/04/19 -hgb is 10.4 on 02/05/19 (5) TIA (transient ischemic attack): History of TIA in the past -Continue clopidogrel (6) Diabetes mellitus type 1 with complications: 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 -continue management in the hospital with Lantus and short acting insulin as per pharmacy glycemic consult -pharmacist has at times initiated IV insulin and currently patient on IV i nsulin due to hyperglycemia - glucose as high as over 400 during hospital stay -have discussed with patient that at home his glucose control was better, he reports at home he uses a long acting insulin of 17 units at night and covered himself with sliding scale insulin, potentially when in the hospital patient eats more calories and also stress response from illness causing more problems with glucose control -pharmacy glycemic control to transition patient off insulin drip on 02/06/19, will continue to follow whether patient can remain stable glycemic control with subcut insulin (7) Migraines: -Continue Topamax and verapamil (8) DVT prophylaxis: -SQ heparin as q12 hours Subjective Patient seen and examined when still on IV insulin. Patient reportedly that he had left lower flank pain that started x 1 day. Pain appears to be pleuritic in nature. Patient denies vomiting. no anterior chest pain. no lightheadedness. no dizziness. he declined hemodialysis today. breathing on room air Physical Exam Constitutional: + ill appearing Eyes: PERRL, conjunctivae normal, anicteric sclerae EOM intact bilaterally Neck: trachea midline, no thyromegaly normal visual inspection Respiratory: normal respiratory effort (mild crackles) Cardiovascular: Rate/Rhythm: regular rate and regular rhythm Gastrointestinal (Abdomen): normal bowel sounds, soft, nontender, no hepatosplenomegaly Musculoskeletal: Head/Neck/Chest: normocephalic and head atraumatic left lower flank pain Neurologic: PERRL, EOMI, accommodation nl, no face palsy, no dysarthria CN's II-XI intact bilaterally Psychiatric: A+Ox3, euthymic affect Results & Data Vital Signs (Past 12 Hours) Vital Signs Temp Pulse Pulse Resp BP Pulse Ox 02/06/19 07:16 36.5 C 76 20 171/90 H 96 02/06/19 04:20 36.7 C 75 20 166/96 H 94 (1) Hypertension Hypertension type: unspecified Qualified Code(s): I10 - Essential (primary) hypertension
[2019-02-06 14:08] LABS: Basophils # (auto) 0.09 K/uL (0-0.2); Eosinophils # (auto) 0.15 K/uL (0-0.5); Eosinophils % (auto) 1.6 %; Hematocrit (blood only) 28.5 % (42-52); Hemoglobin 9.7 g/dL (14.0-18.0); Immature Granulocytes # (auto) 0.05 K/uL (0.00-0.02); Immature Granulocytes % (auto) 0.5 %; Lymphocytes # (auto) 1.55 K/uL (1.2-3.4); Lymphocytes % (auto) 16.6 %; Mean Corpuscular Volume 87.7 fL (80-100); Mean Platelet Volume 9.6 fL (7.4-10.4); Monocytes # (auto) 0.72 K/uL (0.11-0.59); Monocytes % (auto) 7.7 %; Neutrophils % (auto) 72.6 %; Platelet Count 344 K/uL (130-400); RDW Coefficient of Variation 14.7 % (11.5-14.5); RDW Standard Deviation 46.6 fL (36.4-46.3); Red Blood Count 3.25 M/uL (4.7-6.1); White Blood Count 9.36 K/uL (4.8-10.8)
[2019-02-06 14:27] LABS: Albumin Globulin Ratio 0.3 (0.9-2); Albumin Level 1.5 gm/dl (3.4-5.0); BUN Creatinine Ratio 5.3 (10-20); Bilirubin,Total 0.3 mg/dl (0.2-1); Calcium 8.4 mg/dl (8.5-10.1); Creatinine Clr Calc Pharmacy 13.9 ml/min; Est GFR (African American) 9.7; Est GFR (Non-African American) 8.4; Globulin 4.5 gm/dl (2.5-4.0); Magnesium 2.3 mg/dl (1.8-2.4); Potassium 3.8 mmol/L (3.5-5.1)
--- NOTE | 2019-02-06 14:33 | Infectious Disease Progress Nt ---
Date of Service February 06, 2019 Assessment & Plan (1) Haemophilus influenzae pneumonia: 33-year-old male with end-stage renal disease, diabetes mellitus now with pneumonia with positive sputum culture for Haemophilus influenza. Patient appears to be clinically responding to antibiotics. Continue Rx with Augmentin. Will follow. Subjective Patient seen in follow-up for pneumonia. Feeling somewhat better, offers no new complaints tolerating Augmentin without apparent difficulty. Remains afebrile Review of Systems Review of Systems: All systems reviewed & are unremarkable except as noted in HPI & below Physical Exam Constitutional: WD/WN, vitals as above comfortable; no acute distress Eyes: PERRL, conjunctivae normal, anicteric sclerae ENMT: external ear and nose normal, oropharynx normal Neck: trachea midline, no thyromegaly neck nontender Respiratory: normal respiratory effort and + uses accessory muscles; no respiratory distress Auscultation: + rales (Left-sided) Cardiovascular: Rate/Rhythm: regular rate and regular rhythm Heart Sounds: normal S1 and normal S2; no gallop, no murmur and no cardiac rub Vessels: normal peripheral pulses; no JVD Gastrointestinal (Abdomen): normal bowel sounds, soft, nontender, no hepatosplenomegaly Musculoskeletal: no cyanosis or clubbing, extremities motor strength 5/5 Spine: thoracic spine normal to inspection and lumbar spine normal to inspection; no cervical spinal tenderness Skin: no rashes, warm and dry normal turgor; no lesions Neurologic: patellar DTR's 2+ bilat, sensation intact no focal motor deficits Psychiatric: A+Ox3, euthymic affect Orientation: cooperative Lymphatic: no cervical or axillary lymphadenopathy no inguinal lymphadenopathy Results & Data Vital Signs (Past 12 Hours) Vital Signs Temp Pulse Pulse Resp BP Pulse Ox 02/06/19 07:16 36.5 C 76 20 171/90 H 96 02/06/19 04:20 36.7 C 75 20 166/96 H 94 Laboratory Results Short CBC 02/06/19 Range/Units 13:43 WBC 9.36 (4.8-10.8) K/uL Hgb 9.7 L (14.0-18.0) g/dL Hct 28.5 L (42-52) % Plt Count 344 (130-400) K/uL BMP 02/05/19 02/06/19 14:46 13:43 Sodium 134 L 132 L Potassium 3.7 3.8 Chloride 95 L 95 L Carbon Dioxide 31 28 BUN 32 H 40 H Creatinine 5.89 H* D 7.64 H* D Glucose 273 H 236 H Calcium 9.0 8.4 L Liver Function 02/05/19 02/06/19 Range/Units 14:46 13:43 Total Bilirubin 0.2 0.3 (0.2-1) mg/dl AST 8 L 9 L (15-37) U/L ALT 10 L 11 L (12-78) U/L Alkaline Phosphatase 87 79 (45-117) U/L Albumin 1.6 L 1.5 L (3.4-5.0) gm/dl Diagnostic Findings Microbiology 02/02/19 21:35 Sputum, Expectorated Gram Stain - Final 02/02/19 21:35 Sputum, Expectorated Sputum Culture - Final Haemo.influ betalactamase pos 02/02/19 17:56 Blood Aerobic Blood Culture - Preliminary No growth in Aerobic bottle after 48 hours. 02/02/19 17:56 Blood Anaerobic Blood Culture - Preliminary No growth in Anaerobic bottle after 48 hours. 02/02/19 17:56 Blood Aerobic Blood Culture - Preliminary No growth in Aerobic bottle after 48 hours. 02/02/19 17:56 Blood Anaerobic Blood Culture - Preliminary No growth in Anaerobic bottle after 48 hours. XR chest 2V routine HISTORY: 33 years-old Male pneumonia, left flank pain acute left-sided flank pain with pneumonia COMPARISON: Abdominal radiographs of same day, chest radiograph 02/04/2019 TECHNIQUE: PA and lateral views of the chest FINDINGS: Cardiomediastinal and hilar silhouettes are unchanged. No pneumothorax. Right lung is clear. Trace left pneumothorax. Unchanged patchy left lower lobe and lingular alveolar opacities. Bones appear unremarkable. IMPRESSION: 1. Unchanged patchy alveolar opacities of the lingula and basal left lower lobe suggestive of ongoing pneumonia. 2. Unchanged trace left parapneumonic effusion. The above report was generated using voice recognition software. It may contain grammatical, syntax or spelling errors. Electronically signed by: Asim West M.D. 02/06/2019 9:49 AM
[2019-02-06] MEDS ORDERED: KETOROLAC TROMETHAMINE 15 MG/ML VIAL IV ONE (15:07)
--- NOTE | 2019-02-06 17:21 | Nephrology Progress Note ---
Date of Service February 06, 2019 Assessment & Plan (1) End-stage renal disease (ESRD): -had extra HD 2 hrs 02/03 to help w/ breathing and regular tx on 02/04; recommended another 2 hrs today w/ aggressive UF as tolerated but pt declines -repeat CXR post HD this weekend shows less fluid in lungs -pt prone to LYON on tx and little helps relieve them - defer to hospitalist, cont OP meds -next HD tentatively 02/07 full tx depending on fluid status (2) Labile essential hypertension: for now cont dialysis -- edema and breathing issues suggest he may be overloaded; I also increased amlodipine back to 10 mg (his original OP dose)and coreg doubled 02/05 -- cont to follow (3) Anemia in ESRD (end-stage renal disease): plan aggressive epo and iron w/ dialysis -daily labs -minimize/avoid transfusions as he is a potential txplt candidate Subjective seen on round s this am; c/o pleuritic chest pain L flank, poor sleep. i recommended another short dialysis session today but he declines; he is on RA; ongoing N; no diarrhea; still feels lousy; minimal po; BG labile Review of Systems Review of Systems: All systems reviewed & are unremarkable except as noted in HPI & below Physical Exam Constitutional: well developed, + ill appearing (mild; no distress) and + frail appearing on RA Eyes: no EOM movement deficit ENMT: Mouth: + dry oral mucous membranes Neck: no nuchal rigidity Respiratory: no respiratory distress and no labored breathing Auscultation: + diminished lung sounds Cardiovascular: RRR, no murmur, no edema Rate/Rhythm: regular rate and regular rhythm Extremities: + AV fistula (+ t/b) sacral edema resolved Gastrointestinal (Abdomen): Inspection/Auscultation: normal bowel sounds Percussion/Palpation: abdomen soft; abdomen nontender Skin: no rashes, warm and dry Neurologic: soria, fluent speech Psychiatric: A+Ox3, euthymic affect Orientation: alert and oriented x 3 Eye Contact: good eye contact Affect: + anxious affect Results & Data Vital Signs (Past 12 Hours) Vital Signs Temp Pulse Resp BP Pulse Ox 02/06/19 15:17 36.9 C 66 18 131/80 95 02/06/19 07:16 36.5 C 76 20 171/90 H 96 Laboratory Results Abnormal lab results 02/05/19 02/05/19 02/06/19 Range/Units 21:11 23:13 00:14 RBC (4.7-6.1) M/uL Hgb (14.0-18.0) g/dL Hct (42-52) % RDW Std Deviation (36.4-46.3) fL RDW Coeff of Ralph (11.5-14.5) % Immature Gran # (Auto) (0.00-0.02) K/uL Neut # (Auto) (1.4-6.5) K/uL [place] # (Auto) (0.11-0.59) K/uL Sodium (136-145) mmol/L Chloride (98-107) mmol/L BUN (7-18) mg/dl Creatinine (0.6-1.4) mg/dl BUN/Creatinine Ratio (10-20) Glucose (70-99) mg/dl POC Glucose 174 H 139 H 140 H (70-99) Calcium (8.5-10.1) mg/dl AST (15-37) U/L ALT (12-78) U/L Total Protein (6.4-8.2) gm/dl Albumin (3.4-5.0) gm/dl Globulin (2.5-4.0) gm/dl Albumin/Globulin Ratio (0.9-2) 02/06/19 02/06/19 02/06/19 Range/Units 01:12 02:12 03:16 RBC (4.7-6.1) M/uL Hgb (14.0-18.0) g/dL Hct (42-52) % RDW Std Deviation (36.4-46.3) fL RDW Coeff of Ralph (11.5-14.5) % Immature Gran # (Auto) (0.00-0.02) K/uL Neut # (Auto) (1.4-6.5) K/uL [place] # (Auto) (0.11-0.59) K/uL Sodium (136-145) mmol/L Chloride (98-107) mmol/L BUN (7-18) mg/dl Creatinine (0.6-1.4) mg/dl BUN/Creatinine Ratio (10-20) Glucose (70-99) mg/dl POC Glucose 121 H 114 H 119 H (70-99) Calcium (8.5-10.1) mg/dl AST (15-37) U/L ALT (12-78) U/L Total Protein (6.4-8.2) gm/dl Albumin (3.4-5.0) gm/dl Globulin (2.5-4.0) gm/dl Albumin/Globulin Ratio (0.9-2) 02/06/19 02/06/19 02/06/19 Range/Units 04:14 05:18 06:11 RBC (4.7-6.1) M/uL Hgb (14.0-18.0) g/dL Hct (42-52) % RDW Std Deviation (36.4-46.3) fL RDW Coeff of Ralph (11.5-14.5) % Immature Gran # (Auto) (0.00-0.02) K/uL Neut # (Auto) (1.4-6.5) K/uL [place] # (Auto) (0.11-0.59) K/uL Sodium (136-145) mmol/L Chloride (98-107) mmol/L BUN (7-18) mg/dl Creatinine (0.6-1.4) mg/dl BUN/Creatinine Ratio (10-20) Glucose (70-99) mg/dl POC Glucose 118 H 112 H 113 H (70-99) Calcium (8.5-10.1) mg/dl AST (15-37) U/L ALT (12-78) U/L Total Protein (6.4-8.2) gm/dl Albumin (3.4-5.0) gm/dl Globulin (2.5-4.0) gm/dl Albumin/Globulin Ratio (0.9-2) 02/06/19 02/06/19 02/06/19 Range/Units 07:11 07:34 08:15 RBC (4.7-6.1) M/uL Hgb (14.0-18.0) g/dL Hct (42-52) % RDW Std Deviation (36.4-46.3) fL RDW Coeff of Ralph (11.5-14.5) % Immature Gran # (Auto) (0.00-0.02) K/uL Neut # (Auto) (1.4-6.5) K/uL [place] # (Auto) (0.11-0.59) K/uL Sodium (136-145) mmol/L Chloride (98-107) mmol/L BUN (7-18) mg/dl Creatinine (0.6-1.4) mg/dl BUN/Creatinine Ratio (10-20) Glucose (70-99) mg/dl POC Glucose 140 H 150 H 153 H (70-99) Calcium (8.5-10.1) mg/dl AST (15-37) U/L ALT (12-78) U/L Total Protein (6.4-8.2) gm/dl Albumin (3.4-5.0) gm/dl Globulin (2.5-4.0) gm/dl Albumin/Globulin Ratio (0.9-2) 02/06/19 02/06/19 02/06/19 Range/Units 09:13 10:13 11:14 RBC (4.7-6.1) M/uL Hgb (14.0-18.0) g/dL Hct (42-52) % RDW Std Deviation (36.4-46.3) fL RDW Coeff of Ralph (11.5-14.5) % Immature Gran # (Auto) (0.00-0.02) K/uL Neut # (Auto) (1.4-6.5) K/uL [place] # (Auto) (0.11-0.59) K/uL Sodium (136-145) mmol/L Chloride (98-107) mmol/L BUN (7-18) mg/dl Creatinine (0.6-1.4) mg/dl BUN/Creatinine Ratio (10-20) Glucose (70-99) mg/dl POC Glucose 192 H 225 H 213 H (70-99) Calcium (8.5-10.1) mg/dl AST (15-37) U/L ALT (12-78) U/L Total Protein (6.4-8.2) gm/dl Albumin (3.4-5.0) gm/dl Globulin (2.5-4.0) gm/dl Albumin/Globulin Ratio (0.9-2) 02/06/19 02/06/19 02/06/19 Range/Units 12:24 13:13 13:43 RBC 3.25 L (4.7-6.1) M/uL Hgb 9.7 L (14.0-18.0) g/dL Hct 28.5 L (42-52) % RDW Std Deviation 46.6 H (36.4-46.3) fL RDW Coeff of Ralph 14.7 H (11.5-14.5) % Immature Gran # (Auto) 0.05 H (0.00-0.02) K/uL Neut # (Auto) 6.80 H (1.4-6.5) K/uL [place] # (Auto) 0.72 H (0.11-0.59) K/uL Sodium (136-145) mmol/L Chloride (98-107) mmol/L BUN (7-18) mg/dl Creatinine (0.6-1.4) mg/dl BUN/Creatinine Ratio (10-20) Glucose (70-99) mg/dl POC Glucose 217 H 225 H (70-99) Calcium (8.5-10.1) mg/dl AST (15-37) U/L ALT (12-78) U/L Total Protein (6.4-8.2) gm/dl Albumin (3.4-5.0) gm/dl Globulin (2.5-4.0) gm/dl Albumin/Globulin Ratio (0.9-2) 02/06/19 02/06/19 02/06/19 Range/Units 13:43 14:16 15:19 RBC (4.7-6.1) M/uL Hgb (14.0-18.0) g/dL Hct (42-52) % RDW Std Deviation (36.4-46.3) fL RDW Coeff of Ralph (11.5-14.5) % Immature Gran # (Auto) (0.00-0.02) K/uL Neut # (Auto) (1.4-6.5) K/uL [place] # (Auto) (0.11-0.59) K/uL Sodium 132 L (136-145) mmol/L Chloride 95 L (98-107) mmol/L BUN 40 H (7-18) mg/dl Creatinine 7.64 H* D (0.6-1.4) mg/dl BUN/Creatinine Ratio 5.3 L (10-20) Glucose 236 H (70-99) mg/dl POC Glucose 248 H 251 H (70-99) Calcium 8.4 L (8.5-10.1) mg/dl AST 9 L (15-37) U/L ALT 11 L (12-78) U/L Total Protein 6.0 L (6.4-8.2) gm/dl Albumin 1.5 L (3.4-5.0) gm/dl Globulin 4.5 H (2.5-4.0) gm/dl Albumin/Globulin Ratio 0.3 L (0.9-2) 02/06/19 Range/Units 16:48 RBC (4.7-6.1) M/uL Hgb (14.0-18.0) g/dL Hct (42-52) % RDW Std Deviation (36.4-46.3) fL RDW Coeff of Ralph (11.5-14.5) % Immature Gran # (Auto) (0.00-0.02) K/uL Neut # (Auto) (1.4-6.5) K/uL [place] # (Auto) (0.11-0.59) K/uL Sodium (136-145) mmol/L Chloride (98-107) mmol/L BUN (7-18) mg/dl Creatinine (0.6-1.4) mg/dl BUN/Creatinine Ratio (10-20) Glucose (70-99) mg/dl POC Glucose 188 H (70-99) Calcium (8.5-10.1) mg/dl AST (15-37) U/L ALT (12-78) U/L Total Protein (6.4-8.2) gm/dl Albumin (3.4-5.0) gm/dl Globulin (2.5-4.0) gm/dl Albumin/Globulin Ratio (0.9-2)
[2019-02-06] MEDS ORDERED: AMOXICILLIN/CLAVULANATE 250 MG TAB PO SCH (18:00)
[2019-02-06] MEDS ORDERED: INSULIN GLARGINE SOLOSTAR 100 UNITS/ML 3 ML PEN SC SCH (21:00)
[2019-02-06] MEDS: AMLODIPINE BESYLATE 5 MG TAB PO SCH (21:37)
[2019-02-06] MEDS: DOXAZosin MESYLATE TAB 2 MG TAB PO SCH (21:38)
[2019-02-06] MEDS: ATORVASTATIN 40 MG TAB PO SCH (21:39)
[2019-02-06] MEDS ORDERED: HYDROmorphone INJ 0.5 MG/0.5 ML SYR IV STA (21:54)
--- NOTE | 2019-02-06 22:41 | CT Scan Report ---
CT chest wo con CT DOSE: 283.35 mGy.cm HISTORY: Chest pain. Pneumonia. pleuritic chest pain TECHNIQUE: Multiaxial CT images of the chest were performed without contrast. A dose lowering techni que was utilized adhering to the principles of ALARA. COMPARISON: None. FINDINGS: Hilar mediastinal regions show no significant adenopathy. There is a small left pleural eff usion. There is a minimal right pleural effusion. There is a consolidative infiltrate at the left and to a lesser extent right base. The upper lungs are considered generally clear. No evidence for pneumothorax. Several small reactive axillary nodes bilaterally. IMPRESSION: 1. Small bilateral pleural effusions. 2. Focal consolidative parenchymal infiltrates left and to lesser extent right base. The above report was generated using voice recognition software. It may contain grammatical, syntax or spelling errors. Electronically signed by: Slick Howell M.D. 02/06/2019 10:40 PM
[2019-02-07] MEDS ORDERED: SODIUM CHLORIDE 0.9% 1000ML 1,000 ML IV PRN (06:47)
[2019-02-07] MEDS ORDERED: EPOETIN ALFA 10,000 UNITS/ML VIAL IV SCH (07:00)
[2019-02-07] MEDS ORDERED: HEPARIN SOD (PORCINE) 1000 UNIT/ML 10 ML VIAL IV SCH (07:00)
[2019-02-07] MEDS ORDERED: HEPARIN SOD (PORCINE) 1000 UNIT/ML 10 ML VIAL IV ONE (07:15)
[2019-02-07] MEDS: INSULIN ASPART 100 UNITS/ML 3 ML PEN SC SCH ×2 (08:11→13:45)
[2019-02-07] MEDS: VERAPAMIL HCL 40 MG TAB PO SCH (08:12)
[2019-02-07] MEDS: CARVEDILOL 6.25 MG TAB PO SCH (08:12)
[2019-02-07] MEDS: CALCIUM ACETATE 667 MG CAP PO SCH ×2 (08:13→13:26)
[2019-02-07] MEDS: CLOPIDOGREL BISULFATE 75 MG TAB PO SCH (08:14)
[2019-02-07] MEDS: CHOLECALCIFEROL 1,000 UNITS TAB PO SCH (08:14)
[2019-02-07] MEDS: HEPARIN SOD 5,000 UNIT/0.5 ML VIAL SQ SCH (08:15)
[2019-02-07] MEDS: AMOXICILLIN/CLAVULANATE 500 MG TAB PO SCH (08:15)
[2019-02-07] MEDS: TOPIRAMATE 25 MG TAB PO SCH (08:16)
[2019-02-07] MEDS ORDERED: TRAMADOL HCL 50 MG TABLET PO STA (13:07)
[2019-02-07] MEDS ORDERED: TRAMADOL HCL 50 MG TABLET PO PRN (13:08)
--- NOTE | 2019-02-07 13:19 | Hospitalist Progress Note ---
Date of Service February 07, 2019 Assessment & Plan (1) HCAP (healthcare-associated pneumonia): Left lower lobe pneumonia secondary to haemophilus influenzae beta lactamase positive and may be a healthcare-associated pneumonia -and by admitting team that this pneumonia may be considered to be hospital acquire pneumonia given history of hospitalizations and as patient is a dialysis patient starting the year -received Cefepime in the ED and then as Zosyn on admission on 02/02/19, was then continued on IV Zosyn alone as MRSA negative -02/02/19 sputum cultures were positive for haemophilus influenzae beta lactamase positive as of 02/04/19 Have discussed with infectious disease Dr. Gonzalez about c ontinuing IV Zosyn for now. droplet precautions instituted as it may be possible that haemophilus influenzae is a cause of the pneumonia and it is not clear if this asymptomatic colonizer of upper airway -follow up 2 view CXR scheduled for 02/04/19 after the 02/04/19 dialysis session shows clearer lung rivas and as IMPRESSION: 1. Interval decrease in patchy right mid to lower lung infiltrates compatible with resolving pneumonia. 2. Trace left parapneumonic effusion. -transitioned patient from IV antibiotics to an oral regimen starting 02/06/19, give Augmentin renally dose which is 500 mg daily and additional 250 mg after dialysis sessions - completion date is 02/16/19 which will be a total of 2 weeks of antibiotics (am avoiding oral doxycycline to avoid potential drug interactions with pat ient's calcium acetate am avoiding azithromycin to avoid prolonging the QTc interval) -CT chest on 02/07/19: Hilar mediastinal regions show no significant adenopathy. There is a small left pleural effusion. There is a minimal right pleural effusion. There is a consolidative infiltrate at the left and to a lesser extent right base.The upper lungs are considered generally clear. No evidence for pneum othorax. Several small reactive axillary nodes bilaterally. -left lower flank pain is pleuritic chest pain, patient encouraged to use incentive spirometer -Because of Pleuritic Chest pain [place] PDMP was checked and patient does not have active controlled substances prescribed prior to this hospital stay. Patient may take tramadol 25 mg every 8 hours as needed for severe pain for the next 4 days. Prescription made Patient may take acetaminophen 325 mg every 6 hours as needed for mild pain or moderate pain or fever for the next 4 days. Prescription made (2) Hypertension: -on combination of amlodipine, carvedilol, doxazosin, verapamil -currently on increased amlodipine as 10 mg qHS since 02/05/19 and increased carvedilol 18.75 mg BID since 02/05/19 (3) ESRD (end stage renal disease): -usual Dialysis schedule is Wednesday, , Wednesday -patient had outpatient dialysis session in the AM of 02/02/19 prior to ED presentation -patient completed dialysis on 02/03/19 and 02/04/19 and 02/06/19 -patient has renal transplant clinic appointments and testing scheduled as outpatient for 02/08/19 -patient should continue dialysis every Wednesday//Wednesday as outpatient Hypokalemia -resolved (4) Anemia in ESRD (end-stage renal disease): -Hgb downtrended from 9.4 on 02/02/19 and stabilized at 7.8 om 02/03/19 and 7.9 on 02/04/19 -nephrology gaveEpoetin on 02/04/19 -hgb is 10.4 on 02/05/19 (5) TIA (transient ischemic attack): History of TIA in the past -Continue clopidogrel (6) Diabetes mellitus type 1 with complications: Type 1 diabetes mellitis with hyperglycemia with senior care current use of insulin -continue management in the hospital with Lantus and short acting insulin as per pharmacy glycemic consult -pharmacist has at times on this hospital stay initiated IV insulin and currently patient on IV insulin due to hyperglycemia - glucose as high as over 400 during hospital stay -have discussed with patient that at home his glucose control was better, he reports at home he uses a long acting insulin of 17 units at night and covered himself with sliding scale insulin, potentially when in the hospital patient eats more calories and also stress response from illness causing more problems with glucose control -pharmacy glycemic control transitioned patient off insulin drip on 02/06/19 -continue subcutaneous insulin Patient instructed to take following insulin dosing at home Lantus 17 units daily Continuing correction factor of 30 mg/dl/unit Continuing carb ratio of 1 unit per 10 grams CHO consumed Continuing goal range to Low 110 mg/dL - High 140 mg/dL (7) Migraines: -Continue Topamax and verapamil (8) DVT prophylaxis: -SQ heparin as q12 hours Discharge Diagnosis Left lower lobe pneumonia secondary to haemophilus influenzae beta lactamase positive and may be a healthcare-associated pneumonia, ESRD (end stage renal disease) on dialysis, Hypertension, Type 1 diabetes mellitus with hyperglycemia, Anemia in ESRD, Hypokalemia (resolved) Discharge to Home Augmentin renally dose which is 500 mg daily and additional 250 mg after dialysis sessions - completion date is 02/16/19 which will be a total of 2 weeks of antibiotics Because of Pleuritic Chest pain [place] PDMP was checked and patient does not have active controlled substances prescribed prior to this hospital stay. Patient may take tramadol 25 mg every 8 hours as needed for severe pain for the next 4 days. Prescription made Patient may take acetaminophen 325 mg every 6 hours as needed for mild pain or moderate pain or fever for the next 4 days. Prescription made Patient should take amlodipine 10 mg daily and carvedilol 18.75 mg BID. Prescriptions made Patient instructed to take following insulin dosing at home Lantus 17 units daily Continuing correction factor of 30 mg/dl/unit Continuing carb ratio of 1 unit per 10 grams CHO consumed Continuing goal range to Low 110 mg/dL - High 140 mg/dL appointments 02/08/2019 9:00 AM Provider Pre [facility], [facility] 02/08/2019 10:00 AM Provider Lab [facility] Laboratory, [facility] 02/08/2019 10:30 AM Provider XR2 [facility] Radiology [address] 02/08/2019 2:00 [address] Provider [address]1 [facility] Radiology [address], [place] 02/09/2019 6:00 PM Provider [facility] Clinic [facility] Department Pharmacy, [facility] patient should continue dialysis every Wednesday//Wednesday as outpatient - next dialysis session with [facility] in [place] on February 09 for 7 AM 02/14/2019 10:00 AM Provider Ciro Singh MD Department Internal Medicine [facility] Subjective overnight patient had left chest pleuritic pain and night time doctor ordered CT chest which reaffirmed left lower lobe infiltrates glucose controlled today Patient seen and examined at end of dialysis session. Patient breathing on room air. Pain control has been an issue as patient has left pleuritic chest pain. Discussed with the patient different potential side effects of pain medications given he is ESRD on dialysis but with some ability to make urine. Will give stat tramadol and prn 25 mg q8 hour for short duration as prescription. patient has no vomiting. no abdomen pain. no acute headache. no dizziness Patient recently aware of transplant clinic and appointments set up for him as outpatient on 02/08/19. Plan is to discharge today so he can follow up tomorrow Physical Exam Constitutional: + ill appearing Eyes: PERRL, conjunctivae normal, anicteric sclerae EOM intact bilaterally Neck: trachea midline, no thyromegaly normal visual inspection Respiratory: normal respiratory effort Cardiovascular: Rate/Rhythm: regular rate and regular rhythm Gastrointestinal (Abdomen): normal bowel sounds, soft, nontender, no hepatosplenomegaly Musculoskeletal: Head/Neck/Chest: normocephalic and head atraumatic Neurologic: PERRL, EOMI, accommodation nl, no face palsy, no dysarthria CN's II-XI intact bilaterally Psychiatric: A+Ox3, euthymic affect Results & Data Vital Signs (Past 12 Hours) Vital Signs Temp Pulse Pulse Resp BP BP Pulse Ox 02/07/19 12:40 71 166/92 H 02/07/19 12:20 72 178/100 H 02/07/19 12:00 72 171/102 H 02/07/19 11:40 70 163/95 H 02/07/19 11:20 69 168/98 H 02/07/19 11:00 69 145/87 H 02/07/19 10:40 68 130/84 02/07/19 10:20 68 144/91 H 02/07/19 10:00 69 157/87 H 02/07/19 09:40 70 146/87 H 02/07/19 09:20 70 151/84 H 02/07/19 09:00 71 154/89 H 02/07/19 08:45 36.5 C 73 73 167/92 H 02/07/19 08:00 36.4 C L 71 20 168/93 H 95 (1) Hypertension Hypertension type: unspecified Qualified Code(s): I10 - Essential (primary) hypertension
--- NOTE | 2019-02-07 14:11 | Discharge Summary ---
Date of Service February 07, 2019 Admission HPI Per Admitting Provider 33-year-old male who presents the ED with cough and shortness of breath. Patient reports persistent and worsening cough over the past 3 weeks. He reports cough is been intermittently productive for a melara sputum. He was seen in his PCPs office today and was sent to the ED for further evaluation. He reports running some low-grade fevers today. He denies chest pain. He reports some mild exertional shortness of breath. No lightheadedness, dizziness, diaphoresis, syncopal events. He denies abdominal pain, nausea, vomiting, diarrhea. Patient went to dialysis today. He denies any recent travel or sick contacts. In the ED, patient is afebrile and is saturating well on room air. Labs show WBC 12 K, other labs unremarkable/at baseline. Outpatient CXR shows a left lower lobe infiltrate. Patient was given nebulizer treatment and IV cefepime. Principal Diagnosis Left lower lobe pneumonia secondary to haemophilus influenzae beta lactamase positive and may be a healthcare-associated pneumonia, ESRD (end stage renal disease) on dialysis, Hypertension, Type 1 diabetes mellitus with hyperglycemia, Anemia in ESRD, Hypokalemia (resolved) Discharge Exam Constitutional WD/WN, vitals as above Eyes PERRL, conjunctivae normal, anicteric sclerae EOM intact bilaterally Neck trachea midline, no thyromegaly normal visual inspection Respiratory normal respiratory effort Cardiovascular Rate/Rhythm: regular rate and regular rhythm Gastrointestinal (Abdomen) normal bowel sounds, soft, nontender, no hepatosplenomegaly Musculoskeletal Head/Neck/Chest: normocephalic and head atraumatic Neurologic PERRL, EOMI, accommodation nl, no face palsy, no dysarthria CN's II-XI intact bilaterally Psychiatric A+Ox3, euthymic affect Discharge Data Allergies Allergy/AdvReac Type Severity Reaction Status Date / Time No Known Allergies Allergy Verified 02/02/19 17:29 Consultations 02/02/19 18:58 ED Decision to Admit Stat 02/02/19 19:46 Consult Nephrology Routine 02/04/19 14:06 Consult Infectious Diseases Routine Ordered Studies 02/06/19 21:54 CT chest wo con Urgent Hospital Course (1) HCAP (healthcare-associated pneumonia): Left lower lobe pneumonia secondary to haemophilus influenzae beta lactamase positive and may be a healthcare-associated pneumonia -and by admitting team that this pneumonia may be considered to be hospital acquire pneumonia given history of hospitalizations and as patient is a dialysis patient starting the year -received Cefepime in the ED and then as Zosyn on admission on 02/02/19, was then continued on IV Zosyn alone as MRSA negative -02/02/19 sputum cultures were positive for haemophilus influenzae beta lactamase positive as of 02/04/19 Have discussed with infectious disease Dr. Gonzalez about continuing IV Zosyn for now. droplet precautions instituted as it may be possible that haemophilus influenzae is a cause of the pneumonia and it is not clear if this asymptomatic colonizer of upper airway -follow up 2 view CXR scheduled for 02/04/19 after the 02/04/19 dialysis session shows clearer lung rivas and as IMPRESSION: 1. Interval decrease in patchy right mid to lower lung infiltrates compatible with resolving pneumonia. 2. Trace left parapneumonic effusion. -transitioned patient from IV antibiotics to an oral regimen starting 02/06/19, give Augmentin renally dose which is 500 mg daily and additional 250 mg after dialysis sessions - completion date is 02/16/19 which will be a total of 2 weeks of antibiotics (am avoiding oral doxycycline to avoid potential drug interactions with patient's calcium acetate am avoiding azithromycin to avoid prolonging the QTc interval) -CT chest on 02/07/19: Hilar mediastinal regions show no significant adenopathy. There is a small left pleural effusion. There is a minimal right pleural effusion. There is a consolidative infiltrate at the left and to a lesser extent right base.The upper lungs are considered generally clear. No evidence for pneumothorax. Several small reactive axillary nodes bilaterally. -left lower flank pain is pleuritic chest pain, patient encouraged to use incentive spirometer -Because of Pleuritic Chest pain [place] PDMP was checked and patient does not have active controlled substances prescribed prior to this hospital stay. Patient may take tramadol 25 mg every 8 hours as needed for severe pain for the next 4 days. Prescription made Patient may take acetaminophen 325 mg every 6 hours as needed for mild pain or moderate pain or fever for the next 4 days. Prescription made (2) Hypertension: -on combination of amlodipine, carvedilol, doxazosin, verapamil -currently on increased amlodipine as 10 mg qHS since 02/05/19 and increased carvedilol 18.75 mg BID since 02/05/19 (3) ESRD (end stage renal disease): -usual Dialysis schedule is Wednesday, , Wednesday -patient had outpatient dialysis session in the AM of 02/02/19 prior to ED presentation -patient completed dialysis on 02/03/19 and 02/04/19 and 02/06/19 -patient has renal transplant clinic appointments and testing scheduled as outpatient for 02/08/19 -patient should continue dialysis every Wednesday//Wednesday as outpatient Hypokalemia -resolved (4) Anemia in ESRD (end-stage renal disease): -Hgb downtrended from 9.4 on 02/02/19 and stabilized at 7.8 om 02/03/19 and 7.9 on 02/04/19 -nephrology gaveEpoetin on 02/04/19 -hgb is 10.4 on 02/05/19 (5) TIA (transient ischemic attack): History of TIA in the past -Continue clopidogrel (6) Diabetes mellitus type 1 with complications: Type 1 diabetes mellitis with hyperglycemia with rat exterminator current use of insulin -continue management in the hospital with Lantus and short acting insulin as per pharmacy glycemic consult -pharmacist has at times on this hospital stay initiated IV insulin and currently patient on IV insulin due to hyperglycemia - glucose as high as over 400 during hospital stay -have discussed with patient that at home his glucose control was better, he reports at home he uses a long acting insulin of 17 units at night and covered himself with sliding scale insulin, potentially when in the hospital patient eats more calories and also stress response from illness causing more problems with glucose control -pharmacy glycemic control transitioned patient off insulin drip on 02/06/19 -continue subcutaneous insulin Patient instructed to take following insulin dosing at home Lantus 17 units daily Continuing correction factor of 30 mg/dl/unit Continuing carb ratio of 1 unit per 10 grams CHO consumed Continuing goal range to Low 110 mg/dL - High 140 mg/dL (7) Migraines: -Continue Topamax and verapamil (8) DVT prophylaxis: -SQ heparin as q12 hours Discharge Diagnosis Left lower lobe pneumonia secondary to haemophilus influenzae beta lactamase positive and may be a healthcare-associated pneumonia, ESRD (end stage renal disease) on dialysis, Hypertension, Type 1 diabetes mellitus with hyperglycemia, Anemia in ESRD, Hypokalemia (resolved) Discharge to Home Augmentin renally dose which is 500 mg daily and additional 250 mg after dialysis sessions - completion date is 02/16/19 which will be a total of 2 weeks of antibiotics Because of Pleuritic Chest pain [place] PDMP was checked and patient does not have active controlled substances prescribed prior to this hospital stay. Patient may take tramadol 25 mg every 8 hours as needed for severe pain for the next 4 days. Prescription made Patient may take acetaminophen 325 mg every 6 hours as needed for mild pain or moderate pain or fever for the next 4 days. Prescription made Patient should take amlodipine 10 mg daily and carvedilol 18.75 mg BID. Prescriptions made Patient instructed to take following insulin dosing at home Lantus 17 units daily Continuing correction factor of 30 mg/dl/unit Continuing carb ratio of 1 unit per 10 grams CHO consumed Continuing goal range to Low 110 mg/dL - High 140 mg/dL appointments 02/08/2019 9:00 AM Provider [facility], [facility] 02/08/2019 10:00 AM Provider Lab [facility], [facility] 02/08/2019 10:30 AM Provider XR2 [facility] Radiology [address] 02/08/2019 2:[address] [facility]iology [address] 02/09/2019 6:00 PM Provider [facility] Pharm[facility], [facility] patient should continue dialysis every Wednesday//Wednesday as outpatient - next dialysis session with [facility] in [place] on February 09 for 7 AM 02/14/2019 10:00 AM Provider Ciro Singh MD Department Internal Medicine [facility] Total Time Total Time Spent Total Time Spent (In Minutes): 40 minutes Total Time Includes: Examination of the Patient, Discharge Planning, Medication Reconciliation and Communication With Other Providers Discharge Plan Discharge Items Patient Disposition: Home - Self-Care Reason For Visit: PNEUMONIA Discharge Diagnosis: Left lower lobe pneumonia secondary to haemophilus influenzae beta lactamase positive and may be a healthcare-associated pneumonia, ESRD (end stage renal disease) on dialysis, Hypertension, Type 1 diabetes mellitus with hyperglycemia, Anemia in ESRD, Hypokalemia (resolved) Condition: Good Discharge Goals: Improve disease control Activity: Resume your previous activity Non-emergency contact: Primary Care Provider and Specialist Call non-emergency contact if: you have any medication questions Follow-up/Referrals: Ciro Singh MD [Primary Care Provider] - Diet: Dialysis Renal Addtl Provider Instructions: Discharge to Home Augmentin renally dose which is 500 mg daily and additional 250 mg after dialysis sessions - completion date is 02/16/19 which will be a total of 2 weeks of antibiotics Because of Pleuritic Chest pain [place] PDMP was checked and patient does not have active controlled substances prescribed prior to this hospital stay. Patient may take tramadol 25 mg every 8 hours as needed for severe pain for the next 4 days. Prescription made Patient may take acetaminophen 325 mg every 6 hours as needed for mild pain or moderate pain or fever for the next 4 days. Prescription made Patient should take amlodipine 10 mg daily and carvedilol 18.75 mg BID. Prescriptions made Patient instructed to take following insulin dosing at home Lantus 17 units daily Continuing correction factor of 30 mg/dl/unit Continuing carb ratio of 1 unit per 10 grams CHO consumed Continuing goal range to Low 110 mg/dL - High 140 mg/dL appointments 02/08/2019 9:00 AM Provider [facility], [facility] 02/08/2019 10:00 AM Provider Lab [facility], [facility] 02/08/2019 10:30 AM Provider XR2 [facility] Radiology [address] 02/08/2019 2:[address] [facility]iology [address] 02/09/2019 6:00 PM Provider [facility] Department Pharmacy, [facility] patient should continue dialysis every Wednesday//Wednesday as outpatient - next dialysis session with [facility] in [place] on February 09 for 7 AM 02/14/2019 10:00 AM Provider Ciro Singh MD Department Internal Medicine [facility] Prescriptions: New tramadol 50 mg Tablet 25 mg PO Q8H PRN (Reason: severe pain) 4 Days Qty: 6 RF: 0 acetaminophen [Mapap (acetaminophen)] 325 mg Tablet 325 mg PO Q6H PRN (Reason: mild to moderate pain or fever) 4 Days Qty: 16 RF: 0 carvedilol 6.25 mg Tablet 18.75 mg PO BID 30 Days Qty: 180 RF: 0 amlodipine [Norvasc] 5 mg Tablet 10 mg PO HS 30 Days Qty: 60 RF: 0 amoxicillin-pot clavulanate 250-125 mg Tablet 1 tab PO TuThSa@2000 4 Days Qty: 4 RF: 0 amoxicillin-pot clavulanate 500-125 mg Tablet 1 tab PO QAM 9 Days Qty: 9 RF: 0 Continued atorvastatin 40 mg tablet 40 mg PO HS RF: 0 clopidogrel 75 mg tablet 75 mg PO QAM RF: 0 calcium acetate 667 mg Tablet 2,668 mg PO TIDM RF: 0 cholecalciferol (vitamin D3) [Vitamin D3] 5,000 unit Tablet 5,000 units PO QAM RF: 0 Lantus U-100 Insulin 100 unit/mL solution 17 units SUBCUT HS RF: 0 verapamil 120 mg tablet 120 mg PO DAILY Qty: 30 RF: 1 Novolog U-100 Insulin aspart 100 unit/mL solution subcut UD RF: 0 doxazosin 2 mg tablet 2 mg PO HS RF: 0 topiramate [Topamax] 25 mg tablet 25 mg PO BID Qty: 20 RF: 1 Discontinued carvedilol [Coreg] 12.5 mg tablet 12.5 mg PO BID RF: 0 amlodipine 5 mg tablet 5 mg PO HS RF: 0 Stand-Alone Forms: [facility] Discharge Orders: Discharge Order (Routine); Ordered 02/07/19 Ordered By: Darnell Awan Admission Data Admit Date/Time: 02/02/19 19:36 Attending Provider: Darnell Awan Admit Provider: Richard Ndiaye Primary Care Provider: Ciro Singh Other Providers: Kellie Bains ; Richard Ndiaye ; Deandre Gonzalez Service: Medical
[2019-02-07] MEDS ORDERED: INSULIN GLARGINE SOLOSTAR 100 UNITS/ML 3 ML PEN SC SCH (17:00)
[2019-02-07] MEDS ORDERED: AMOXICILLIN/CLAVULANATE 250 MG TAB PO SCH (20:00)
--- NOTE | 2019-02-07 23:31 | Dialysis Progress Note ---
Date of Service February 07, 2019 Assessment & Plan (1) End-stage renal disease (ESRD): -had extra HD 2 hrs 02/03 to help w/ breathing and regular tx on 02/04; recommended another 2 hrs 02/06 w/ aggressive UF as tolerated but pt declined; had regular tx today and 3.5 L UF -repeat CXR post HD this weekend shows less fluid in lungs -pt prone to LYON on tx and little helps relieve them - defer to hospitalist, cont OP meds -next HD tentatively 02/09 full tx depending on fluid status (2) Labile essential hypertension: for now cont dialysis -- edema and breathing issues suggest he may be overloaded; I also increased amlodipine back to 10 mg (his original OP dose)and coreg doubled 02/05 -- cont to follow (3) Anemia in ESRD (end-stage renal disease): plan aggressive epo and iron w/ dialysis -daily labs -minimize/avoid transfusions as he is a potential txplt candidate Subjective seen on dialysis today about 1015; breathing a bit improved; still L rib/flank pain; no n/v; still gen weakness/ malaise Review of Systems Review of Systems: All systems reviewed & are unremarkable except as noted in HPI & below Physical Exam Constitutional: well developed, + ill appearing (mild; no distress) and + frail appearing on RA Eyes: no EOM movement deficit ENMT: Mouth: + dry oral mucous membranes Neck: no nuchal rigidity Respiratory: no respiratory distress and no labored breathing Auscultation: + diminished lung sounds Cardiovascular: RRR, no murmur, no edema Rate/Rhythm: regular rate and regular rhythm Extremities: + AV fistula (+ t/b) Gastrointestinal (Abdomen): Inspection/Auscultation: normal bowel sounds Percussion/Palpation: abdomen soft; abdomen nontender Musculoskeletal: soria Skin: no rashes, warm and dry Psychiatric: A+Ox3, euthymic affect Orientation: alert and oriented x 3 Eye Contact: good eye contact Affect: + anxious affect Results & Data Vital Signs (Past 12 Hours) Vital Signs Temp Pulse Pulse Pulse Resp BP BP 02/07/19 15:34 36.7 C 79 20 178/103 H 02/07/19 14:20 36.5 C 62 73 20 182/102 H 02/07/19 12:47 36.5 C 73 73 182/102 H 182/102 H 02/07/19 12:40 71 166/92 H 02/07/19 12:20 72 178/100 H 02/07/19 12:00 72 171/102 H 02/07/19 11:40 70 163/95 H Pulse Ox 02/07/19 15:34 95 02/07/19 14:20 95 02/07/19 12:47 02/07/19 12:40 02/07/19 12:20 02/07/19 12:00 02/07/19 11:40
== END 2019-02-07 16:05 | disposition home or self-care (01) | DRG 193 ==
LOC: ED 16:58 → 2N 19:30

== ENCOUNTER 2019-10-03 13:17 | Inpatient (IN) ==
[2019-10-03 14:20] LABS: Basophils # (auto) 0.04 K/uL (0-0.2); Basophils % (auto) 0.9 %; Eosinophils # (auto) 0.13 K/uL (0-0.5); Hemoglobin 10.9 g/dL (14.0-18.0); Immature Granulocytes # (auto) 0.01 K/uL (0.00-0.02); Immature Granulocytes % (auto) 0.2 %; Lymphocytes # (auto) 0.64 K/uL (1.2-3.4); Lymphocytes % (auto) 14.8 %; Mean Corpuscular Hemoglobin 29.5 pg (25-34); Mean Corpuscular Hgb Conc 34.1 g/dL (32-36); Mean Corpuscular Volume 86.5 fL (80-100); Mean Platelet Volume 10.2 fL (7.4-10.4); Monocytes # (auto) 0.95 K/uL (0.11-0.59); Neutrophils # (auto) 2.55 K/uL (1.4-6.5); Neutrophils % (auto) 59.1 %; Platelet Count 272 K/uL (130-400); RDW Coefficient of Variation 14.2 % (11.5-14.5); RDW Standard Deviation 45.1 fL (36.4-46.3); White Blood Count 4.32 K/uL (4.8-10.8)
--- NOTE | 2019-10-03 14:35 | XRay Report ---
XR chest 1V portable CLINICAL HISTORY: weakness COMPARISON STUDY: 06/25/2019 FINDINGS: The heart is borderline enlarged. There is mild chronic interstitial prominence. There is n o focal pulmonary consolidation. There are no pleural effusions. There is no overt failure.[ IMPRESSION: Stable borderline cardiomegaly. No acute findings. ACT 112: Negative or not required by law. Electronically signed by: Edson Sheffield M.D. 10/03/2019 2:34 PM
[2019-10-03 14:38] LABS: INR 1.1 (0.9-1.1); Prothrombin Time 11.3 Seconds (9.0-12.0)
[2019-10-03 14:47] LABS: Albumin Globulin Ratio 0.7 (0.9-2); Albumin Level 3.1 gm/dl (3.4-5.0); BUN Creatinine Ratio 5.3 (10-20); Bilirubin,Total 0.4 mg/dl (0.2-1); Calcium 8.6 mg/dl (8.5-10.1); Creatinine Clr Calc Pharmacy 11.3 ml/min; Est GFR (African American) 7.5; Est GFR (Non-African American) 6.4; Globulin 4.7 gm/dl (2.5-4.0); Magnesium 2.3 mg/dl (1.8-2.4); Phosphorus 4.8 mg/dl (2.5-4.9); Thyroid Stimulating Hormone 2.41 uIu/ml (0.300-4.500); Total Protein 7.8 gm/dl (6.4-8.2)
--- NOTE | 2019-10-03 15:22 | Electrocardiogram Report ---
Test Reason : Blood Pressure : / mmHG Vent. Rate : 074 BPM Atrial Rate : 074 BPM P-R Int : 136 ms QRS Dur : 098 ms QT Int : 452 ms P-R-T Axes : 035 -12 062 degrees QTc Int : 501 ms Normal sinus rhythm Possible Left atrial enlargement Left ventricular hypertrophy Prolonged QT Abnormal ECG When compared with ECG of 25-JUN-2019 08:43, No significant change was found Confirmed by Tyler Kennedy [id number]) on 10/03/2019 3:22:16 PM Referred By: REFERRED SELF Confirmed By:Tyler Kennedy
--- NOTE | 2019-10-03 15:47 | Nephrology Consultation ---
Date of Consultation October 03, 2019 Assessment & Plan (1) ESRD (end stage renal disease): ESRD on PD. No concerns for peritonitis; many concerns however that he is simply not doing txs. Marked worsening of OP labs past 2 months. He has functional AV fistula -recommend HD tomorrow and indefinitely pending improvement in clinical status -renal nurses to flush PD catheter and change dressing tomorrow and weekly -unclear that he can go back to PD given multiple uncontrolled medical issues Present on Admission?: Yes (2) Anemia in ESRD (end-stage renal disease): t stn 29% this month TERRI as indicated w/ HD monitor hgb q 48 hr Present on Admission?: Yes (3) Labile essential hypertension: continue home bp meds for now -plan longer HD tomorrow Present on Admission?: Yes (4) Fall: denies fall hx to me in clinic -- stated could not remember if fell or not in PD clinic; tells hospital providers fell d/t low BG; concern he fell d/t hyperglycemia -low threshold for orbital XR or head CT Present on Admission?: Yes (5) Safety impairment: concern that labile BG are causing bad decisions> removing continuous BG monitor, not doing PD, falling w/ injury, not calling pcp or other providers for eval/with safety concerns -? if needs home services Present on Admission?: Yes History of Present Illness Reason for Consultation: ESRD on dialysis Requesting Physician: Gwendolyn Cee Attending Physician: Gwendolyn Cee History of Present Illness 34 y/o M whom I'm asked to see for ESRD care was sent by me to ER today d/t concerns about safety at home. PMH includes ESRD on PD, DM1 which can be brittle, HTN, migraines, hx of TIAs. He came to PD clinic visit today and state d " I feel like I multiple times this week." He endorses progressive weakness, exertional dyspnea, and chest pain w/ walking 1/2 block on flat surface. Denies chest pain or sob at OV w/ me. He also had a R brow contusion > denied trauma; stated he could not remember if he fell or not. He stated that he'd had BG in 30s this week (pt lives alone). He stated BG has been labile (common issue w/ him): he'd decided despite this hx to remove his continuous glucose monitor prior to getting [place] bus [place] to [place] for PD clinic. He brought a memory stick w/ records of PD txs that showed no treatments this month - which he attributed to a bad modem. He was to do adequacy studies prior to visit but did not complete. BG in clinic today 183, SBP 152. His labs from last week were showed worsening abnormalities, including calcium 6.7, phos 14.7, creatinine 15. I had increased his calcium supplements last week in response and was awaiting dialysis adequacy studies which are still in process. I recommended immediate in center 2 hr HD which he had today; then sent him to ER on completion d/t concerns about poor self care, ruben BG control at home. Labs from this AM are true labs; labs drawn in ER are immediately after HD and will be inaccurate d/t ongoing fluid shifts/reequilibration. Allergies Allergy/AdvReac Type Severity Reaction Status Date / Time No Known Allergies Allergy Verified 06/25/19 10:11 Home Medications Home Medications Medication Instructions Recorded Confirmed Type atorvastatin 40 mg PO HS 09/28/18 10/03/19 History calcium acetate 2,668 mg PO TIDM 09/28/18 10/03/19 History cholecalciferol (vitamin D3) 5,000 units PO QAM 09/28/18 10/03/19 History [Vitamin D3] clopidogrel 75 mg PO QAM 09/28/18 10/03/19 History doxazosin 2 mg PO HS 12/20/18 10/03/19 History insulin aspart U-100 [Novolog 1 sliding scale dose SUBCUT AC 12/20/18 10/03/19 History U-100 Insulin aspart] carvedilol 25 mg PO QAM 06/25/19 10/03/19 History carvedilol 37.5 mg PO HS 06/25/19 10/03/19 History amlodipine 10 mg PO DAILY 10/03/19 10/03/19 History calcium carbonate [Tums Ultra] 1,600 mg PO BID 10/03/19 10/03/19 History gentamicin 1 applic TOPICAL DAILY 10/03/19 10/03/19 History insulin glargine [Lantus Solostar 15 unit SUBCUT PM 10/03/19 10/03/19 History U-100 Insulin] ropinirole 0.25 mg PO HS 10/03/19 10/03/19 History sucroferric oxyhydroxide [Velphoro] 500 mg PO TIDM 10/03/19 10/03/19 History trazodone 50 mg PO DAILY 10/03/19 10/03/19 History Patient History Medical History Anemia in ESRD (end-stage renal disease) (Chronic) Charcot foot due to diabetes mellitus (Chronic) 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) Diabetic nephropathy (Chronic) Diabetic neuropathy (Chronic) Diabetic retinopathy (Chronic) End-stage renal disease (ESRD) (Chronic) ESRD (end stage renal disease) (Chronic) Fatty liver (Chronic) Hypertension (Chronic) Migraines (Chronic) Nephrotic syndrome due to diabetes mellitus (Chronic) Pericardial effusion without cardiac tamponade (Chronic) Prolonged QT interval (Chronic) TIA (transient ischemic attack) (Chronic) Surgical History S/P eye surgery (Chronic) Family History Mother Hypertension Grandfather (Maternal) Diabetes Grandmother (Maternal) Diabetes Grandmother (Paternal) Diabetes Social History Preferred Language: Italian Communication Ability: Effective Visual Impairment: Limited Grain Operator Required: No Beliefs That Will Affect Care: None marital status: single Current Living Situation: Alone current occupational status: employed Other Information That Helps Us Care for You: No Feels Safe at Home: Yes Safety Concerns: Feels Safe At This Time Smoking Status: Former smoker Do You Dip or Chew Tobacco: No ; Second Hand Exposure: No ; Tobacco Cessation Education Requested by Patient: No Hx Alcohol Use: No Hx Substance Use: No Review of Systems Review of Systems: All systems reviewed & are unremarkable except as noted in HPI & below Constitutional: + fatigue, + weakness, + weight gain and + insomnia Eyes: no worsening vision Respiratory: as per Subjective / HPI; no cough Cardiovascular: as per Subjective / HPI Gastrointestinal: no abdominal pain, no vomiting, no constipation and no diarrhea/loose stools Genitourinary: + problem reported (anuric; no change in chronic voiding habits; became anuric about 6-8 wks back) Endocrine: as per Subjective / HPI Physical Exam Constitutional: well developed and well nourished; no acute distress facial edema w/ R brow contusion Eyes: EOM intact bilaterally ENMT: Ears: no external ear abnormality Nose: no external nose abnormality Mouth: + dry oral mucous membranes Neck: no nuchal rigidity Respiratory: normal respiratory effort; no respiratory distress and no labored breathing Auscultation: lungs clear to auscultation bilaterally and + diminished lung sounds Cardiovascular: Rate/Rhythm: regular rate and regular rhythm Extremities: + edema (2-3 + BLE ) and + AV fistula (+ t/b) Gastrointestinal (Abdomen): Inspection/Auscultation: normal bowel sounds Percussion/Palpation: abdomen soft; abdomen nontender PD catheter mid abdomen Musculoskeletal: Extremities: strength 5/5 throughout Skin: no rashes, warm and dry Trauma: + contusion (R brow) Neurologic: soria, fluent speech, no tremor Psychiatric: Orientation: alert and oriented x 3 Speech: normal rate/rhythm/volume of speech (some hoarseness) Affect: + flat affect Insight: + impaired insight Judgement: + impaired judgement Results & Data Vital Signs (Past 12 Hours) Vital Signs Temp Pulse Pulse Resp BP BP Pulse Ox 10/03/19 15:00 75 16 167/91 H 95 10/03/19 14:30 73 17 161/88 H 98 10/03/19 14:14 75 75 16 168/90 H 96 10/03/19 13:32 36.7 C 74 16 147/86 H 97 Laboratory Results Abnormal lab results 10/03/19 10/03/19 Range/Units 14:05 14:05 WBC 4.32 L (4.8-10.8) K/uL RBC 3.70 L (4.7-6.1) M/uL Hgb 10.9 L (14.0-18.0) g/dL Hct 32.0 L (42-52) % Lymph # (Auto) 0.64 L (1.2-3.4) K/uL Rich # (Auto) 0.95 H (0.11-0.59) K/uL Potassium 3.0 L (3.5-5.1) mmol/L Anion Gap 12.0 H (3-11) BUN 50 H (7-18) mg/dl Creatinine 9.42 H* D (0.6-1.4) mg/dl BUN/Creatinine Ratio 5.3 L (10-20) Glucose 142 H (70-99) mg/dl AST 11 L (15-37) U/L Albumin 3.1 L (3.4-5.0) gm/dl Globulin 4.7 H (2.5-4.0) gm/dl Albumin/Globulin Ratio 0.7 L (0.9-2) PLEASE SEE LABS DONE AT 1030 THIS AM WHICH ARE TRUER TO BASELINE SINCE 1400 LABS DRAWN SHORTLY AFTER DIALYSIS Diagnostic Findings CXR Stable borderline cardiomegaly. No acute findings. (1) Fall Encounter type: initial encounter Qualified Code(s): W19.XXXA - Unspecified fall, initial encounter
--- NOTE | 2019-10-03 16:09 | Emergency Department Note ---
Entered by Sigifredo La acting as a scribe for History of Present Illness General Chief complaint: Abnormal Labs/Diagnostic Testing Stated complaint: ABNORMAL LABS Time Seen by Provider: 10/03/19 13:43 Source: patient Limitations: no limitations History of Present Illness Location: head Severity: similar to prior episodes Pain Consistency: + constant Maximum Pain Intensity: 4 Current Pain Intensity: 4 Quality: + other (fatigued, muscle pain) Associated symptoms: + denies other symptoms (vision problems) Treatments prior to arrival: other (Dialysis) The patient is a 34 year old male who presents to the Emergency Room with complaints of constant body pain. The patient states he has been doing peritoneal dialysis every day at home. He states today he was told to do a two hour dialysis session. He states he had blood work done at dialysis today, and was told his results were off and was told to go to the ED. He states he has achiness all over. He notes he has muscle pain. He states he has been vomiting today. He notes his pain is 4/10. He notes peritoneal dialysis has been going well. He states he has been fatigued. He states he has been taking all his medicines. He notes he had a low blood sugar a couple days ago and fell. He states he did not have a headache before dialysis, but states he had one after. He states his vision has been okay. The patient denies having fevers, flu symptoms, and nose bleeds. He states his PCP is Dr. Coffey. Home Medications Home Medications Medication Instructions Recorded Confirmed Type atorvastatin 40 mg PO HS 09/28/18 10/03/19 History calcium acetate 2,668 mg PO TIDM 09/28/18 10/03/19 History cholecalciferol (vitamin D3) 5,000 units PO QAM 09/28/18 10/03/19 History [Vitamin D3] clopidogrel 75 mg PO QAM 09/28/18 10/03/19 History doxazosin 2 mg PO HS 12/20/18 10/03/19 History insulin aspart U-100 [Novolog 1 sliding scale dose SUBCUT AC 12/20/18 10/03/19 History U-100 Insulin aspart] carvedilol 25 mg PO QAM 06/25/19 10/03/19 History carvedilol 37.5 mg PO HS 06/25/19 10/03/19 History amlodipine 10 mg PO DAILY 10/03/19 10/03/19 History calcium carbonate [Tums Ultra] 1,600 mg PO BID 10/03/19 10/03/19 History gentamicin 1 applic TOPICAL DAILY 10/03/19 10/03/19 History insulin glargine [Lantus Solostar 15 unit SUBCUT PM 10/03/19 10/03/19 History U-100 Insulin] ropinirole 0.25 mg PO HS 10/03/19 10/03/19 History sucroferric oxyhydroxide [Velphoro] 500 mg PO TIDM 10/03/19 10/03/19 History trazodone 50 mg PO DAILY 10/03/19 10/03/19 History Allergies Allergy/AdvReac Type Severity Reaction Status Date / Time No Known Allergies Allergy Verified 06/25/19 10:11 Past Med/Surg History Medical History Anemia in ESRD (end-stage renal disease) (Chronic) Charcot foot due to diabetes mellitus (Chronic) 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) Diabetic nephropathy (Chronic) Diabetic neuropathy (Chronic) Diabetic retinopathy (Chronic) End-stage renal disease (ESRD) (Chronic) ESRD (end stage renal disease) (Chronic) Fatty liver (Chronic) Hypertension (Chronic) Migraines (Chronic) Nephrotic syndrome due to diabetes mellitus (Chronic) Pericardial effusion without cardiac tamponade (Chronic) Prolonged QT interval (Chronic) TIA (transient ischemic attack) (Chronic) Surgical History S/P eye surgery (Chronic) Family History Mother Hypertension Grandfather (Maternal) Diabetes Grandmother (Maternal) Diabetes Grandmother (Paternal) Diabetes Social History Preferred Language: Irish Communication Ability: Effective Visual Impairment: Limited Air Press Operator Required: No Beliefs That Will Affect Care: None marital status: single Current Living Situation: Alone current occupational status: employed Other Information That Helps Us Care for You: No Feels Safe at Home: Yes Safety Concerns: Feels Safe At This Time Smoking Status: Former smoker Do You Dip or Chew Tobacco: No ; Second Hand Exposure: No ; Tobacco Cessation Education Requested by Patient: No Hx Alcohol Use: No Hx Substance Use: No Review of Systems See HPI for pertinent positives & negatives. and A total of 10 systems reviewed and were otherwise negative Physical Exam Vital Signs Vital Signs - 24 hr 10/03/19 13:32 10/03/19 14:14 10/03/19 14:30 Temperature 36.7 C Temperature Source Oral Pulse Rate 74 75 73 Pulse Rate [Apical] 75 Pulse Rate from SpO2 Sensor 73 Respiratory Rate 16 16 17 Blood Pressure 147/86 H 161/88 H Blood Pressure [Left Arm] 168/90 H Blood Pressure Mean 106 101 Blood Pressure Mean [Left Arm] 116 Pulse Oximetry 97 96 98 Oxygen Delivery Method Room Air Room Air Room Air Sepsis Recent Fever Within 48 Hours No Sepsis Action Taken by Nursing No Action Required 10/03/19 15:00 10/03/19 15:30 10/03/19 16:00 Temperature Temperature Source Pulse Rate 75 75 74 Pulse Rate [Apical] Pulse Rate from SpO2 Sensor 75 75 74 Respiratory Rate 16 18 13 Blood Pressure 167/91 H 166/87 H 165/88 H Blood Pressure [Left Arm] Blood Pressure Mean 117 108 116 Blood Pressure Mean [Left Arm] Pulse Oximetry 95 96 95 Oxygen Delivery Method Room Air Room Air Sepsis Recent Fever Within 48 Hours Sepsis Action Taken by Nursing GENERAL: Awake, alert, fatigued appearing in no distress HENT: Normocephalic. 1 x 3 cm right lateral eyebrow erythema/swelling. EOMI. Midface stable. EYES: Normal conjunctiva. Sclera non-icteric. NECK: Supple. No nuchal rigidity. RESPIRATORY: Clear to auscultation. No wheezes. Normal respiratory effort. CARDIAC: Normal rate. Normal rhythm. Extremities warm and well perfused. Right upper extremity fistula with thrill. GI: Soft, non-distended. No tenderness to palpation. No rebound or guarding. No masses. PD catheter in place. RECTAL: Deferred. MUSCULOSKELETAL: Atraumatic. Chest examination reveals no tenderness. LOWER EXTREMITIES: Calves are equal size bilaterally and non-tender. No edema NEURO: Normal sensorium. No sensory or motor deficits noted. No facial droop. SKIN: Warm and dry. No jaundice noted. Course Course 1349: The patient was evaluated in room A10, and a complete history and physical examination were performed. 1504: I spoke with Dr. Barrera - Nephrology. He recommends admitting the patient. 1509: I updated the patient on his labs and imaging. I recommended admission and he is agreeable. 1528: I discussed the patient's case with Dr. Giuseppe Snow Hospitalist. He will evaluate the patient for further management. Administered Medications Discontinued Medications Insulin Aspart (Novolog Per Unit) 7 units SC NOW STA Stop: 10/03/19 16:28 Last Admin: 10/03/19 17:08 Dose: 7 units Documented by: [id number] Cosigned by: [id number] Medical Decision Making Differential Diagnosis Differential Diagnosis includes but is not limited to dehydration, stroke, anemia, hypoglycemia, hyponatremia, hypernatremia, urinary tract infection, pneumonia, bronchitis, sepsis, gastroenteritis, additional abdominal pathology, metabolic abnormalities and infections. Medical Records Attestation: I reviewed the patient's medical records. Home Medications Current Medication List: was personally reviewed by me Laboratory Data Attestation: I reviewed the patient's lab results. Result diagrams: 10/03/19 14:05 10/03/19 14:05 Lab Results 10/03/19 10/03/19 10/03/19 Range/Units 14:05 14:05 14:05 WBC 4.32 L (4.8-10.8) K/uL RBC 3.70 L (4.7-6.1) M/uL Hgb 10.9 L (14.0-18.0) g/dL Hct 32.0 L (42-52) % MCV 86.5 (80-100) fL MCH 29.5 (25-34) pg MCHC 34.1 (32-36) g/dL RDW Std Deviation 45.1 (36.4-46.3) fL RDW Coeff of Ralph 14.2 (11.5-14.5) % Plt Count 272 (130-400) K/uL MPV 10.2 (7.4-10.4) fL Immature Gran % (Auto) 0.2 % Neut % (Auto) 59.1 % Lymph % (Auto) 14.8 % [place] % (Auto) 22.0 % Eos % (Auto) 3.0 % Baso % (Auto) 0.9 % Immature Gran # (Auto) 0.01 (0.00-0.02) K/uL Neut # (Auto) 2.55 (1.4-6.5) K/uL Lymph # (Auto) 0.64 L (1.2-3.4) K/uL [place] # (Auto) 0.95 H (0.11-0.59) K/uL Eos # (Auto) 0.13 (0-0.5) K/uL Baso # (Auto) 0.04 (0-0.2) K/uL PT 11.3 (9.0-12.0) Seconds INR 1.1 (0.9-1.1) Sodium 138 (136-145) mmol/L Potassium 3.0 L (3.5-5.1) mmol/L Chloride 102 (98-107) mmol/L Carbon Dioxide 24 (21-32) mmol/L Anion Gap 12.0 H (3-11) BUN 50 H (7-18) mg/dl Creatinine 9.42 H* D (0.6-1.4) mg/dl Est Cr Clr Drug Dosing 11.3 ml/min Est GFR ( Amer) 7.5 Est GFR (Non-Af Amer) 6.4 BUN/Creatinine Ratio 5.3 L (10-20) Glucose 142 H (70-99) mg/dl Calcium 8.6 (8.5-10.1) mg/dl Phosphorus 4.8 (2.5-4.9) mg/dl Magnesium 2.3 (1.8-2.4) mg/dl Total Bilirubin 0.4 (0.2-1) mg/dl AST 11 L (15-37) U/L ALT 22 (12-78) U/L Alkaline Phosphatase 72 (45-117) U/L Total Protein 7.8 (6.4-8.2) gm/dl Albumin 3.1 L (3.4-5.0) gm/dl Globulin 4.7 H (2.5-4.0) gm/dl Albumin/Globulin Ratio 0.7 L (0.9-2) TSH 2.410 (0.300-4.500) uIu/ml Imaging Data Radiologist's Impression: Radiology results as stated below per my review and the radiologist's interpretation: XR chest 1V portable CLINICAL HISTORY: weakness COMPARISON STUDY: 06/25/2019 FINDINGS: The heart is borderline enlarged. There is mild chronic interstitial prominence. There is no focal pulmonary consolidation. There are no pleural effusions. There is no overt failure.[ IMPRESSION: Stable borderline cardiomegaly. No acute findings. ACT 112: Negative or not required by law. Electronically signed by: Edson Sheffield M.D. 10/03/2019 2:34 PM ECG Data Attestation: I personally reviewed and interpreted this ECG as follows: Indication: + weakness Rate (beats per minute): 74 Rhythm: + normal sinus ECG ST segments: no ST depression and no ST elevation ECG Findings: + Other (Prolonged QT-c); no PVCs Blood Pressure Blood Pressure Findings: Elevated blood pressure Blood Pressure Disposition: further management by hospitalist SAMMI Narrative Patient is a 34-year-old gentleman with a past medical history including end- stage renal disease on dialysis, hypertension, migraines, type 1 diabetes presenting today referred by his admissions representative for laboratory abnormalities. Patient states that Dr. Barrera found his calcium and phosphorus levels were abnormal so referred him here. Patient is mildly hypertensive upon arrival. No trauma or fevers reported. Patient does report falling 7 days ago during a hypoglycemic episode and does have a contusion overlying his right lateral eyebrow. No evidence of ocular injury or entrapment. Patient states a bit of a headache now after dialysis but before this was doing okay and denies visual changes. Given the delay onset and discussed with the patient will defer additional imaging here at this time. Complains of some mild diffuse arthralgias. Repeat laboratory studies were completed after his 2 hours dialysis session today. Has been doing peritoneal dialysis he says without issue but his laboratory numbers are are poor. States he has been anuric for several days. Chest x-ray without evidence of fluid overload. Creatinine elevated but no emergent need for dialysis at this juncture. Discussed with his admissions representative who had concerns about his ability care for himself at home and safety given his issues with dialysis recently. She recommended admission. Discussed with hospitalist team. Impression & Plan Fatigue, Dialysis patient, noncompliant Discharge Plan Visit Data *Final* Discharge Date/Time: 10/03/19 17:57 Chief Complaint: Abnormal Labs/Diagnostic Testing Stated Complaint: ABNORMAL LABS ED Provider: Colin Hill Discharge Problem: Fatigue, Dialysis patient, noncompliant Patient Disposition: Admitted As Inpatient Discharge Instructions Interventions: ED Discharge Assessment Last Done: 10/03/19 17:57 Discharge Problem: Fatigue Qualifiers: Fatigue type: unspecified Qualified Code(s): R53.83 - Other fatigue The scribe's documentation has been prepared under my direction and personally reviewed by me in its entirety. I confirm that the note above accurately reflects all work, treatment, procedures, and medical decision making performed by me.
--- NOTE | 2019-10-03 16:19 | History & Physical Report ---
Date of Service October 03, 2019 Assessment & Plan (1) Fall: Pt is 34 y/o M with PMH DM I, HTN, ESRD currently on PD, h/o TIA, retinopathy, anemia of chronic disease presented to ER from dialysis for concern for recent falls. Pt reports 3 days ago had BSG of 30. He states the next day he noted swelling and redness to right forehead and reports he thinks he fell. Pt reports has continuous BSG monitor however reports "fell off". He states that he has been self adjusting his insulin since to avoid hypoglycemia -Obtain CT head/face to r/o lesion, bleed, fracture -Fall possibly from hypoglycemia -Tele to monitor -Monitor BSGs -Fall precautions (2) End-stage renal disease (ESRD): Pt previously on HD and currently on PD. Today he required emergent HD. There is concern by journal entry audit clerk if pt is doing his PD regimen. -continue binders -nephrology consult -bmp, phosphorus, magnesium labs in am (3) Diabetes mellitus type 1 with complications: A1c: 10.9 on 02/08/19 Pt reports his continuous BSG monitor fell off at home -Monitor BSGs -Decrease home Lantus from 15 units HS to 10 units given his recent hypoglycemia episodes at home -Novolog sliding scale -A1c in am (4) Hypertension: -continue amlodipine, carvedilol, doxazosin (5) Anemia in ESRD (end-stage renal disease): Hgb: 10.9. Baseline Hgb ~10 (6) TIA (transient ischemic attack): H/O TIA -continue plavix, statin DVT Prophylaxis -SCDs Full Code Follows with Dr Singh for routine care Pt was seen and care coordinated with Dr Chin. See addendum History of Present Illness Chief Complaint: Referred by nephrology Primary Care Provider: Ciro Singh MD Pt is 34 y/o M with PMH DM I, HTN, ESRD currently on PD, h/o TIA, retinopathy, anemia of chronic disease presented to ER from dialysis for concern for recent falls. Pt previously on HD and reports on PD since 06/2019. He states that does PD nightly. Today he required emergent HD. There is concern by journal entry audit clerk if pt is doing his PD regimen. Pt reports 3 days ago had BSG of 30. He states the next day he noted swelling and redness to right forehead and reports he thinks he fell. Pt reports has continuous BSG monitor however reports "fell off". He states that he has been self adjusting his insulin and decreased his Lantus HS and since he hasn't had low BSGs. Pt states that he has been feeling bad past couple of weeks with increased fatigue and reports SOB with exertion. Pt brings copy of labs from outpatient 2 weeks ago with Ca:6.7, phos 14.7, Cr: 15. Denies fever/chills, diaphoresis, N/V/D/C, LYON, dizziness, vision changes, neck pain, CP, SOB, orthopnea, palpitations, cough, sore throat, choking, otalgia, rhinorrhea, abdominal pain, paresthesias, weakness, extremity weakness, extremity edema, rashes. Allergies Allergy/AdvReac Type Severity Reaction Status Date / Time No Known Allergies Allergy Verified 06/25/19 10:11 Home Medications Home Medications Medication Instructions Recorded Confirmed Type atorvastatin 40 mg PO HS 09/28/18 10/03/19 History calcium acetate 2,668 mg PO TIDM 09/28/18 10/03/19 History cholecalciferol (vitamin D3) 5,000 units PO QAM 09/28/18 10/03/19 History [Vitamin D3] clopidogrel 75 mg PO QAM 09/28/18 10/03/19 History doxazosin 2 mg PO HS 12/20/18 10/03/19 History insulin aspart U-100 [Novolog 1 sliding scale dose SUBCUT AC 12/20/18 10/03/19 History U-100 Insulin aspart] carvedilol 25 mg PO QAM 06/25/19 10/03/19 History carvedilol 37.5 mg PO HS 06/25/19 10/03/19 History amlodipine 10 mg PO DAILY 10/03/19 10/03/19 History calcium carbonate [Tums Ultra] 1,600 mg PO BID 10/03/19 10/03/19 History gentamicin 1 applic TOPICAL DAILY 10/03/19 10/03/19 History insulin glargine [Lantus Solostar 15 unit SUBCUT PM 10/03/19 10/03/19 History U-100 Insulin] ropinirole 0.25 mg PO HS 10/03/19 10/03/19 History sucroferric oxyhydroxide [Velphoro] 500 mg PO TIDM 10/03/19 10/03/19 History trazodone 50 mg PO DAILY 10/03/19 10/03/19 History Past Med/Surg History Medical History Anemia in ESRD (end-stage renal disease) (Chronic) Charcot foot due to diabetes mellitus (Chronic) 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) Diabetic nephropathy (Chronic) Diabetic neuropathy (Chronic) Diabetic retinopathy (Chronic) End-stage renal disease (ESRD) (Chronic) ESRD (end stage renal disease) (Chronic) Fatty liver (Chronic) Hypertension (Chronic) Migraines (Chronic) Nephrotic syndrome due to diabetes mellitus (Chronic) Pericardial effusion without cardiac tamponade (Chronic) Prolonged QT interval (Chronic) TIA (transient ischemic attack) (Chronic) Surgical History S/P eye surgery (Chronic) Family History Mother Hypertension Grandfather (Maternal) Diabetes Grandmother (Maternal) Diabetes Grandmother (Paternal) Diabetes Social History Preferred Language: Turkmen Communication Ability: Effective Visual Impairment: Limited Print Inspector Required: No Beliefs That Will Affect Care: None marital status: single Current Living Situation: Alone current occupational status: employed Other Information That Helps Us Care for You: No Feels Safe at Home: Yes Safety Concerns: Feels Safe At This Time Smoking Status: Former smoker Do You Dip or Chew Tobacco: No ; Second Hand Exposure: No ; Tobacco Cessation Education Requested by Patient: No Hx Alcohol Use: No Hx Substance Use: No Review of Systems Review of Systems: All systems reviewed & are unremarkable except as noted in HPI & below Physical Exam Physical Exam: General: no distress, chronic ill appearing Head: normocephalic, Forehead: right superior orbital region with +hematoma Eyes: PERRL, EOM's intact, conjunctiva non-injected, anicteric ENT: normal inspection external ears, nose, mucous membranes moist Neck: supple, trachea midline, non-tender Lungs: clear, no respiratory distress, no wheezing/rhonchi/rales CV: RRR, no murmur, no pretibial edema Abd: normal BS, +PD cath in place, soft, non-tender Ext: no cyanosis, no calf tenderness; right arm with fistula with palpable thrill Neuro: A&O x 3, no focal deficits noted, normal affect Skin: warm, dry Results & Data Vital Signs (Past 12 Hours) Vital Signs Temp Pulse Pulse Resp BP BP Pulse Ox 10/03/19 16:00 74 13 165/88 H 95 10/03/19 15:30 75 18 166/87 H 96 10/03/19 15:00 75 16 167/91 H 95 10/03/19 14:30 73 17 161/88 H 98 10/03/19 14:14 75 75 16 168/90 H 96 10/03/19 13:32 36.7 C 74 16 147/86 H 97 Laboratory Results Short CBC 10/03/19 Range/Units 14:05 WBC 4.32 L (4.8-10.8) K/uL Hgb 10.9 L (14.0-18.0) g/dL Hct 32.0 L (42-52) % Plt Count 272 (130-400) K/uL BMP 10/03/19 14:05 Sodium 138 Potassium 3.0 L Chloride 102 Carbon Dioxide 24 BUN 50 H Creatinine 9.42 H* D Glucose 142 H Calcium 8.6 Liver Function 10/03/19 Range/Units 14:05 Total Bilirubin 0.4 (0.2-1) mg/dl AST 11 L (15-37) U/L ALT 22 (12-78) U/L Alkaline Phosphatase 72 (45-117) U/L Albumin 3.1 L (3.4-5.0) gm/dl Diagnostic Findings CXR: IMPRESSION: Stable borderline cardiomegaly. No acute findings. Code Status & VTE Plan VTE Prophylaxis Plan VTE Prophylaxis will be ordered: Yes Supervising Physician Co-Signing Physician Notes Patient referred to the ER and admitted on directions from his journal entry audit clerk. There is a concern that he is not getting adequate peritoneal dialysis at home. His electrolytes are within normal limits and he does not appear fluid overloaded. He has also had a fall, probably related to hypoglycemia as he stated that his glucose was 30 at that time. Dose of insulin decreased as above. CT head without any acute abnormalities. Otherwise no infectious signs/symptoms. His abdomen was non tender. No concern for peritonitis. He received hemodialysis today and will likely be maintained on that. He has a right arm AV fistula. (1) Fall Encounter type: initial encounter Qualified Code(s): W19.XXXA - Unspecified fall, initial encounter
[2019-10-03] MEDS ORDERED: INSULIN ASPART PER UNIT SC STA (16:27)
--- NOTE | 2019-10-03 17:10 | CT Scan Report ---
CT head/brain wo con CLINICAL HISTORY: 34 years-old Male presenting with fall, right forehead hematoma. TECHNIQUE: Multidetector CT imaging of the head was performed without the use of intravenous contrast . IV contrast: None. One or more dose lowering techniques were used consistent with the principles of ALARA (as low as reasonably achievable), including automatic exposure control, mA or kV adjustment t o individual patient size, and/or use of iterative reconstruction. COMPARISON: 06/25/2019. CT DOSE (mGy.cm): The estimated cumulative dose is 749.72. FINDINGS: Nuclear Chemistry Technician topogram: Unremarkable. Ventricles and sulci normal in size. No hemorrhage. Brain parenchyma normal in appearance with preser adolfo melara-white differentiation. No acute territorial infarct. No mass effect or midline shift. No ext ra-axial fluid collection. Paranasal sinuses and mastoid air cells clear. Calvarium intact. Skin thic kening over the frontal scalp with infiltration. No focal hematoma. IMPRESSION: 1. No acute intracranial abnormality. 2. Trace frontal scalp contusion. No subjacent osseous injury. ACT 112: Negative or not required by law. Electronically signed by: Kareem Mendoza M.D. 10/03/2019 5:09 PM
--- NOTE | 2019-10-03 17:14 | CT Scan Report ---
CT facial bones wo con CLINICAL HISTORY: 34 years-old Male presenting with fall, orbital edema. Acute right-sided head and face injury status post fall COMPARISON STUDY: Head CT of same day and also 07/05/2019 TECHNIQUE: High-resolution CT scan of the facial bones is performed. Images are reviewed in the axia l, sagittal, and coronal planes. IV contrast was not administered for this examination. A dose lower ing technique was utilized adhering to the principles of ALARA. CT DOSE: 749.72 mGy.cm FINDINGS: The orbits appear unremarkable. There is minimal right periorbital subcutaneous edema without large h ematoma. Arterial calcifications are noted. The imaged intracranial structures demonstrate no acute a bnormality. No acute calvarial fracture identified. Mastoid air cells and middle ear cavities are la ar. Streak artifact from dental amalgam hardware limits evaluation of the adjacent tissues. Mild poly poid mucosal thickening of the inferior left maxillary sinus. 1.7 cm osteoma involves the inferior le ft frontal sinus. The remaining paranasal sinuses are generally clear. Mild sigmoidal bowing and spur ring of the nasal septum. Bony orbits appear intact. No acute fracture or dislocation. Dental caries are noted involving the left third maxillary molar with an unerupted supernumerary small tooth adjace nt to the left third molar. Unerupted right maxillary and left mandibular third molars. IMPRESSION: Mild right periorbital subcutaneous edema. No acute facial bone fracture identified. ACT 112: Negative or not required by law. The above report was generated using voice recognition software. It may contain grammatical, syntax o r spelling errors. Electronically signed by: Asim West M.D. 10/03/2019 5:13 PM
[2019-10-03] MEDS ORDERED: GLUCOSE 40% GEL 15 GM TUBE PO PRN (18:01)
[2019-10-03] MEDS ORDERED: CARBOHYDRATES FOR HYPOGLYCEMIA PO PRN (18:01)
[2019-10-03] MEDS ORDERED: DEXTROSE 50% 50 ML SYRINGE IV PRN (18:01)
[2019-10-03] MEDS ORDERED: GLUCOSE 10 TABS/TUBE PO PRN (18:01)
[2019-10-03] MEDS ORDERED: GLUCAGON FOR INJ 1 MG VIAL SQ PRN (18:01)
[2019-10-03] MEDS: CALCIUM ACETATE 667 MG CAP PO SCH (19:39)
[2019-10-03] MEDS: INSULIN ASPART 100 UNITS/ML 3 ML PEN SC SCH ×2 (19:41→20:35)
[2019-10-03] MEDS: CALCIUM CARBONATE 500 MG CHEWABLE TAB PO SCH (20:32)
[2019-10-03] MEDS: DOXAZosin MESYLATE TAB 2 MG TAB PO SCH (20:33)
[2019-10-03] MEDS: carvediloL 25 MG TAB PO SCH (20:35)
[2019-10-03] MEDS: INSULIN GLARGINE SOLOSTAR 100 UNITS/ML 3 ML PEN SC SCH (20:36)
[2019-10-03] MEDS: ROPINIROLE HCL 0.25 MG TABLET PO SCH (20:39)
[2019-10-03] MEDS: ATORVASTATIN 40 MG TAB PO SCH (20:39)
[2019-10-03 21:44] LABS: Appearance Urine Turbid (Clear); Bacteria Urine Automated 2+ (Negative); Bilirubin Urine Negative (Negative); Blood Urine 1+ (Negative); Color Urine Yellow; Glucose Urine UA 2+ (Negative); Ketones Urine Negative (Negative); Leukocyte Esterase Urine 2+ (Negative); Nitrite Urine Negative (Negative); Protein Urine 3+ (Negative); RBC Urine Automated 0-4 /hpf (0-4); Urobilinogen Urine Negative (Negative); WBC Urine Automated >30 /hpf (0-5); pH Urine 5.5 (4.5-7.5)
[2019-10-03] MEDS ORDERED: TRAZODONE HCL 50 MG TAB PO ONE (21:45)
[2019-10-03 22:04] LABS: Sperm Urine Present (None Prsent)
[2019-10-04] MEDS: ACETAMINOPHEN 325 MG TAB PO PRN (01:13)
[2019-10-04] MEDS ORDERED: SODIUM CHLORIDE 0.9% 1000ML 1,000 ML IV PRN (07:00)
[2019-10-04] MEDS: VELPHORO PO SCH ×4 (07:54→17:04)
[2019-10-04 07:55] LABS: Hematocrit (blood only) 30.8 % (42-52); Hemoglobin 10.5 g/dL (14.0-18.0); Mean Corpuscular Hemoglobin 29.8 pg (25-34); Mean Corpuscular Hgb Conc 34.1 g/dL (32-36); Mean Corpuscular Volume 87.5 fL (80-100); Mean Platelet Volume 9.7 fL (7.4-10.4); Nucleated RBC % (auto) 2.3 %; Platelet Count 282 K/uL (130-400); RDW Coefficient of Variation 14.2 % (11.5-14.5); RDW Standard Deviation 45.6 fL (36.4-46.3); Red Blood Count 3.52 M/uL (4.7-6.1); White Blood Count 4.35 K/uL (4.8-10.8)
[2019-10-04] MEDS: CALCIUM ACETATE 667 MG CAP PO SCH ×4 (07:56→17:05)
[2019-10-04] MEDS: CLOPIDOGREL BISULFATE 75 MG TAB PO SCH (07:58)
[2019-10-04] MEDS: CHOLECALCIFEROL 1,000 UNITS 25 MCG TAB PO SCH (07:59)
[2019-10-04] MEDS: CALCIUM CARBONATE 500 MG CHEWABLE TAB PO SCH ×2 (07:59→20:19)
[2019-10-04 08:33] LABS: BUN Creatinine Ratio 5.3 (10-20); Calcium 8.2 mg/dl (8.5-10.1); Creatinine Clr Calc Pharmacy 8.9 ml/min; Est GFR (African American) 5.6; Est GFR (Non-African American) 4.9; Magnesium 2.3 mg/dl (1.8-2.4); Phosphorus 7.1 mg/dl (2.5-4.9); Potassium 3.1 mmol/L (3.5-5.1)
[2019-10-04] MEDS ORDERED: TRAZODONE HCL 50 MG TAB PO SCH (09:00)
[2019-10-04 09:49] LABS: Estimated Average Glucose 192 mg/dl; Hemoglobin A1C 8.3 % (4.5-5.6)
[2019-10-04] MEDS: INSULIN ASPART 100 UNITS/ML 3 ML PEN SC SCH ×4 (10:34→21:06)
[2019-10-04] MEDS: AMLODIPINE BESYLATE 5 MG TAB PO SCH (13:51)
[2019-10-04] MEDS: carvediloL 25 MG TAB PO SCH ×2 (13:51→20:18)
--- NOTE | 2019-10-04 15:08 | Nephrology Progress Note ---
Date of Service October 04, 2019 Assessment & Plan (1) ESRD (end stage renal disease): ESRD on PD. No concerns for peritonitis; many concerns however that he is simply not doing txs. Marked worsening of OP labs past 2 months. He has functional AV fistula -patient plan for HD today. -renal nurses to flush PD catheter and change dressing weekly -unclear that he can go back to PD given multiple uncontrolled medical issues (2) Anemia in ESRD (end-stage renal disease): t stn 29% this month TERRI as indicated w/ HD monitor hgb q 48 hr (3) Labile essential hypertension: continue home bp meds for now -plan longer HD tomorrow (4) Fall: denies fall hx to me in clinic -- stated could not remember if fell or not in PD clinic; tells hospital providers fell d/t low BG; concern he fell d/t hyperglycemia -low threshold for orbital XR or head CT (5) Safety impairment: concern that labile BG are causing bad decisions> removing continuous BG monitor, not doing PD, falling w/ injury, not calling pcp or other providers for eval/with safety concerns -? if needs home services Admission and Anticipated Discharge Date Admission Date: October 03, 2019 Subjective Patient feels well today. No shortness of breath. No abdominal pain. Is planned for dialysis today. Review of Systems Review of Systems: All systems reviewed & are unremarkable except as noted in HPI & below Physical Exam Physical Exam: General exam: Appears comfortable, no acute distress HEENT: Pupils are equal and reactive to light Neck: No JVD, neck is supple trachea is midline Respiratory system: Clear breath sounds bilaterally. Gastrointestinal: Abdomen is soft, non distended, non tender, bowel sounds are present CVS: Regular rate and rhythm. No murmurs, rubs or gallops Musculoskeletal: No joint or muscle tenderness Extremities: Non tender, no edema, peripheral pulses are present Neuro: Oriented, no tremors, no focal neurological deficits Skin: No rashes Access: Right upper arm AV fistula with good bruit Results & Data ([facility]) Vital Signs (Past 12 Hours) Vital Signs Temp Pulse Pulse Pulse Resp BP BP 10/04/19 14:59 37.1 C 74 16 175/86 H 10/04/19 13:20 71 141/70 H 10/04/19 13:00 70 164/93 H 10/04/19 12:40 69 156/89 H 10/04/19 12:20 69 142/65 H 10/04/19 12:00 69 163/85 H 10/04/19 11:40 67 164/84 H 10/04/19 11:20 67 162/86 H 10/04/19 11:00 68 166/89 H 10/04/19 10:40 68 162/89 H 10/04/19 10:20 66 163/99 H 10/04/19 09:54 36.6 C 68 10/04/19 08:00 67 10/04/19 07:28 37.2 C 69 19 144/70 H 10/04/19 04:13 36.4 C L 71 18 155/77 H Pulse Ox 10/04/19 14:59 97 10/04/19 13:20 10/04/19 13:00 10/04/19 12:40 10/04/19 12:20 10/04/19 12:00 10/04/19 11:40 10/04/19 11:20 10/04/19 11:00 10/04/19 10:40 10/04/19 10:20 10/04/19 09:54 10/04/19 08:00 10/04/19 07:28 97 10/04/19 04:13 98 Laboratory Results 10/04/19 07:35 10/04/19 10/04/19 07:35 07:35 WBC 4.35 L RBC 3.52 L MCV 87.5 MCH 29.8 MCHC 34.1 RDW Std Deviation 45.6 RDW Coeff of Ralph 14.2 Plt Count 282 MPV 9.7 Phosphorus 7.1 H D (1) Fall Encounter type: initial encounter Qualified Code(s): W19.XXXA - Unspecified fall, initial encounter
[2019-10-04] MEDS: TRAZODONE HCL 50 MG TAB PO SCH (20:19)
[2019-10-04] MEDS: ROPINIROLE HCL 0.25 MG TABLET PO SCH (20:20)
[2019-10-04] MEDS: ATORVASTATIN 40 MG TAB PO SCH (20:20)
[2019-10-04] MEDS: DOXAZosin MESYLATE TAB 2 MG TAB PO SCH (20:21)
--- NOTE | 2019-10-04 20:42 | Hospitalist Progress Note ---
Date of Service October 04, 2019 Assessment & Plan (1) End-stage renal disease (ESRD): Suspected noncompliance with peritoneal dialysis. Hemodialysis initiated. Ongoing management per Nephrology. 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 Severe hypoglycemia at home. Had some nausea and vomiting a few days ago which has resolved. Hemoglobin A1c 8.3. Fasting blood sugar today 84. Did not receive NovoLog with breakfast or at noon because of hemodialysis. Continue Lantus and NovoLog per protocol with care to avoid hypoglycemia. (3) Fall: Possibly secondary to hypoglycemia. Check orthostatic VS. PT/OT. (4) Anemia in ESRD (end-stage renal disease): Anemia of chronic kidney disease. Hemoglobin 10.5. Follow. (5) Hypertension: Continue carvedilol, amlodipine, doxazosin. (6) DVT prophylaxis: SCDs ordered. Ambulate. (7) Discharge planning issues: Anticipated discharge to home. Family Medicine follow-up with Dr. Coffey. Diabetes management per [facility]. Admission and Anticipated Discharge Date Admission Date: October 03, 2019 Subjective Recheck for multiple problems. Patient seen in their room around 1510. Hypoglycemic this morning. Underwent hemodialysis earlier today without incident. Review of Systems: Constitutional- no fever. Cardiac- no chest pain. Pulmonary- no cough or SOB. GI- no nausea, vomiting, diarrhea, melena, hematochezia. - no urinary symptoms. Otherwise, as noted above. Physical Exam Constitutional: no acute distress Respiratory: no respiratory distress Auscultation: lungs clear to auscult ation bilaterally Cardiovascular: Rate/Rhythm: regular rate and regular rhythm Vessels: no JVD Extremities: no calf tenderness and no edema Gastrointestinal (Abdomen): normal bowel sounds, soft, nontender, no hepat osplenomegaly Musculoskeletal: Extremities: no cyanosis Skin: no rashes, warm and dry Psychiatric: Orientation: alert and oriented x 3 Results & Data ([facility]) Vital Signs (Past 12 Hours) Vital Signs Temp Pulse Pulse Pulse Resp BP BP 10/04/19 19:57 37.3 C 79 18 179/86 H 10/04/19 16:19 79 10/04/19 14:59 37.1 C 74 16 175/86 H 10/04/19 14:10 36.5 C 70 162/88 H 10/04/19 14:00 71 173/95 H 10/04/19 13:40 71 171/92 H 10/04/19 13:20 71 141/70 H 10/04/19 13:00 70 164/93 H 10/04/19 12:40 69 156/89 H 10/04/19 12:20 69 142/65 H 10/04/19 12:00 69 163/85 H 10/04/19 11:40 67 164/84 H 10/04/19 11:20 67 162/86 H 10/04/19 11:00 68 166/89 H 10/04/19 10:40 68 162/89 H 10/04/19 10:20 66 163/99 H 10/04/19 09:54 36.6 C 68 Pulse Ox 10/04/19 19:57 97 10/04/19 16:19 10/04/19 14:59 97 10/04/19 14:10 10/04/19 14:00 10/04/19 13:40 10/04/19 13:20 10/04/19 13:00 10/04/19 12:40 10/04/19 12:20 10/04/19 12:00 10/04/19 11:40 10/04/19 11:20 10/04/19 11:00 10/04/19 10:40 10/04/19 10:20 10/04/19 09:54 Laboratory Results 10/04/19 07:35 10/04/19 07:35 (1) Fall Encounter type: initial encounter Qualified Code(s): W19.XXXA - Unspecified fall, initial encounter
[2019-10-04] MEDS: INSULIN GLARGINE SOLOSTAR 100 UNITS/ML 3 ML PEN SC SCH (21:07)
[2019-10-05] MEDS ORDERED: INSULIN ASPART 100 UNITS/ML 3 ML PEN SC ONE (01:00)
[2019-10-05 07:16] LABS: BUN Creatinine Ratio 4.3 (10-20); Calcium 8.4 mg/dl (8.5-10.1); Creatinine Clr Calc Pharmacy 14.1 ml/min; Est GFR (Non-African American) 8.7
[2019-10-05 07:58] LABS: Potassium 3.6 mmol/L (3.5-5.1)
[2019-10-05] MEDS: VELPHORO PO SCH ×3 (08:14→17:52)
[2019-10-05] MEDS: CALCIUM ACETATE 667 MG CAP PO SCH ×3 (08:14→17:52)
[2019-10-05] MEDS: CHOLECALCIFEROL 1,000 UNITS 25 MCG TAB PO SCH (08:15)
[2019-10-05] MEDS: CALCIUM CARBONATE 500 MG CHEWABLE TAB PO SCH ×2 (08:15→17:30)
[2019-10-05] MEDS: carvediloL 25 MG TAB PO SCH ×2 (08:15→21:38)
[2019-10-05] MEDS: CLOPIDOGREL BISULFATE 75 MG TAB PO SCH (08:15)
[2019-10-05] MEDS: AMLODIPINE BESYLATE 5 MG TAB PO SCH (08:15)
[2019-10-05] MEDS: INSULIN ASPART 100 UNITS/ML 3 ML PEN SC SCH ×5 (08:20→21:41)
--- NOTE | 2019-10-05 13:40 | Nephrology Progress Note ---
Date of Service October 05, 2019 Assessment & Plan (1) ESRD (end stage renal disease): ESRD on PD. No concerns for peritonitis; many concerns however that he is simply not doing txs. Marked worsening of OP labs past 2 months. He has functional AV fistula -patient had HD on 10/04/2019. Next HD is tomorrow. -renal nurses to flush PD catheter and change dressing weekly -will plan to switch to PD on discharge. (2) Anemia in ESRD (end-stage renal disease): t stn 29% this month TERRI as indicated w/ HD monitor hgb q 48 hr (3) Labile essential hypertension: Blood pressure is above target. Will add hydralazine 25 mg p.o. twice daily. (4) Fall: denies fall hx to me in clinic -- stated could not remember if fell or not in PD clinic; tells hospital providers fell d/t low BG; concern he fell d/t hyperglycemia -patient will need visiting nurse or home health services but will defer to primary team. (5) Safety impairment: concern that labile BG are causing bad decisions> removing continuous BG monitor, not doing PD, falling w/ injury, not calling pcp or other providers for eval/with safety concerns -? if needs home services Admission and Anticipated Discharge Date Admission Date: October 03, 2019 Subjective Feels better today. He tolerated dialysis well yesterday. Blood sugars were up yesterday but better this morning. No shortness of breath. No vomiting. Review of Systems Review of Systems: All systems reviewed & are unremarkable except as noted in HPI & below Physical Exam Physical Exam: General exam: Appears comfortable, no acute distress HEENT: Pupils are equal and reactive to light Neck: No JVD, neck is supple trachea is midline Respiratory system: Clear breath sounds bilaterally. Gastrointestinal: Abdomen is soft, non distended, non tender, bowel sounds are present. PD catheter clean CVS: Regular rate and rhythm. No murmurs, rubs or gallops Musculoskeletal: No joint or muscle tenderness Extremities: Non tender, no edema, peripheral pulses are present Neuro: Oriented, no tremors, no focal neurological deficits Skin: No rashes Access: Right upper arm AV fistula with good bruit Results & Data ([facility]) Vital Signs (Past 12 Hours) Vital Signs Temp Pulse Pulse Pulse Resp BP Pulse Ox 10/05/19 11:43 36.7 C 63 18 166/86 H 97 10/05/19 08:37 65 10/05/19 07:30 36.9 C 67 18 165/82 H 98 10/05/19 03:07 36.9 C 72 18 145/70 H 99 Laboratory Results 10/05/19 06:09 (1) Fall Encounter type: initial encounter Qualified Code(s): W19.XXXA - Unspecified fall, initial encounter
[2019-10-05] MEDS ORDERED: LORazepam 0.5 MG/1 ML VIAL IV ONE (17:12)
[2019-10-05] MEDS ORDERED: DOXYCYCLINE HYCLATE 100 MG in DEXTROSE 5% 100 ML IV ONE (18:00)
[2019-10-05] MEDS ORDERED: DOXYCYCLINE HYCLATE 100 MG CAP PO ONE (19:00)
[2019-10-05 20:58] LABS: Appearance Urine Turbid (Clear); Bacteria Urine Automated 2+ (Negative); Bilirubin Urine Negative (Negative); Blood Urine 2+ (Negative); Color Urine Yellow; Epithelial Cell Urine Auto >30 /lpf (0-5); Glucose Urine UA 2+ (Negative); Ketones Urine Trace (Negative); Leukocyte Esterase Urine 3+ (Negative); Nitrite Urine Negative (Negative); Protein Urine 4+ (Negative); Specific Gravity Urine 1.018 (1.000-1.030); Urobilinogen Urine Negative (Negative); WBC Urine Automated >30 /hpf (0-5); pH Urine 6.5 (4.5-7.5)
[2019-10-05] MEDS: ACETAMINOPHEN 325 MG TAB PO PRN (21:11)
[2019-10-05 21:14] LABS: Sperm Urine Present (None Prsent)
[2019-10-05] MEDS: DOXAZosin MESYLATE TAB 2 MG TAB PO SCH (21:38)
[2019-10-05] MEDS: INSULIN GLARGINE SOLOSTAR 100 UNITS/ML 3 ML PEN SC SCH (21:39)
[2019-10-05] MEDS: TRAZODONE HCL 50 MG TAB PO SCH (21:39)
[2019-10-05] MEDS: ATORVASTATIN 40 MG TAB PO SCH (21:40)
[2019-10-05] MEDS: ROPINIROLE HCL 0.25 MG TABLET PO SCH (21:42)
[2019-10-05] MEDS ORDERED: VANCOMYCIN CONSULT ACTIVE PRN ×2 (21:55)
[2019-10-05] MEDS ORDERED: CEFEPIME CONSULT ACTIVE PRN (21:55)
--- NOTE | 2019-10-05 22:00 | Hospitalist Progress Note ---
Date of Service October 05, 2019 Assessment & Plan (1) End-stage renal disease (ESRD): Suspected noncompliance with peritoneal dialysis. Hemodialysis initiated. Ongoing management per Nephrology. 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 Severe hypoglycemia (30) at home. Patient attributes hypoglycemic episode to missed meal. Hemoglobin A1c 8.3. Fasting blood sugar 68 morning of 10/04. Blood sugars > 300 yesterday afternoon- did not receive NovoLog with breakfast or at noon because of hemodialysis. FBS this morning 170. Blood sugars > 300 this afteroon. Patient would like to resume his previous NovoLog protocol. He would like to keep Lantus dose 10 units HS for now (usual dose at home 15 units HS). Blood sugars may be difficult to manage with SQ insulin due to febrile illness; may need to convert to insulin infusion. (3) Fall: Suspected fall, but patient not 100% certain whether he fell or not. Fall possibly secondary to hypoglycemia. Check orthostatic VS. PT/OT. (4) Anemia in ESRD (end-stage renal disease): Anemia of chronic kidney disease. Hemoglobin 10.5. Follow. (5) Hypertension: Continue carvedilol, amlodipine, doxazosin. (6) Nausea & vomiting: Intermittent nausea and vomiting. Probably has gastroparesis (although could not find any gastric emptying scans). Anti-emetics PRN (no ondansetron or other QT-prolonging meds like promethazine). Further evaluation if symptoms persist / worsen. (7) Fever: Spiked fever this evening. Patient reports occasional voiding with chronic dysuria. UA day of admission showed + leukocytosis, WBC's, bacteria, many epithelial cells. Urine culture not obtained at that time. Repeat UA today shows similar findings; urine culture ordered. Has erythema and tenderness left antecubital fossa at IV site; may have suppurative phlebitis. Initially ordered doxycycline (before fever, nausea/vomiting). In light of high fever, blood cultures obtained and IV vancomycin + cefepime ordered. Chest x-ray showed ?? infiltrate left base. (8) DVT prophylaxis: Anticoagulants not utilized due to possible head injury. SCDs ordered. Ambulate. (9) Discharge planning issues: Anticipated discharge to home. Family Medicine follow-up with Dr. Coffey. Diabetes management per [facility]. Admission and Anticipated Discharge Date Admission Date: October 03, 2019 Subjective Recheck for multiple problems. Patient seen in their room around 1630. Father visiting. Blood sugars running higher. Patient would like to get back to his usual dosing of NovoLog: carb ratio 1:7 correction factor 1:30 for blood sugars > 180. Has some discomfort at IV site left antecubital fossa. Review of Systems: Constitutional- no fever. Cardiac- no chest pain. Pulmonary- no cough or SOB. GI- no nausea, vomiting, diarrhea, melena, hematochezia. - oliguric, voids occasionally, chronic dysuria. Otherwise, as noted above. Patient experienced nausea and vomiting soon after my visit. Temp 37.3 --> 37.8 --> 39.4. Physical Exam Constitutional: no acute distress Respiratory: no respiratory distress Auscultation: lungs clear to auscultation bilaterally Cardiovascular: Rate/Rhythm: regular rate and regular rhythm Vessels: no JVD Extremities: no calf tenderness and no edema Gastrointestinal (Abdomen): normal bowel sounds, soft, nontender, no hepatosplenomegaly Musculoskeletal: Extremities: no cyanosis Skin: erythema and tenderness left antecubital fossa; small pustule at IV site Psychiatric: Orientation: alert and oriented x 3 Results & Data ([facility]) Vital Signs (Past 12 Hours) Vital Signs Temp Pulse Resp BP Pulse Ox 10/05/19 21:05 39.4 C H 97 H 18 169/80 H 95 10/05/19 17:22 37.8 C H 10/05/19 16:00 37.3 C 79 18 134/87 96 10/05/19 11:43 36.7 C 63 18 166/86 H 97 (1) Fall Encounter type: initial encounter Qualified Code(s): W19.XXXA - Unspecified fall, initial encounter
[2019-10-05] MEDS ORDERED: VANCOMYCIN HCL 1,500 MG in SODIUM CHLORIDE 0.9% 500 ML IV ONE (22:30)
[2019-10-05] MEDS ORDERED: CEFEPIME 2,000 MG in SYRINGE 7.5 ML IV ONE (22:30)
--- NOTE | 2019-10-05 22:31 | XRay Report ---
XR chest 1V portable CLINICAL HISTORY: fever COMPARISON STUDY: 10/03/2019 FINDINGS: The heart is the upper limits of normal in size. There is no failure. There is a subtle lef t basilar opacity, possibly representing a focal pneumonia. Radiographic follow-up is recommended. Th ere are no pleural effusions.[ IMPRESSION: Subtle left basilar opacity, possibly representing a small focus of pneumonia. Radiograph ic follow-up is recommended. ACT 112: Negative or not required by law. Electronically signed by: Edson Sheffield M.D. 10/05/2019 10:30 PM
[2019-10-06] MEDS ORDERED: PHARMACY GLYCEMIC MGMT CONSULT PRN (01:32)
[2019-10-06] MEDS ORDERED: INSULIN ASPART 100 UNITS/ML 3 ML PEN SC SCH (02:00)
[2019-10-06] MEDS ORDERED: ACETAMINOPHEN 1000 MG/100 ML IV IV ONE ×2 (04:12→04:45)
[2019-10-06] MEDS ORDERED: PROMETHAZINE HCL 12.5 MG in SODIUM CHLORIDE 0.9% 50 ML IV PRN (04:12)
[2019-10-06] MEDS ORDERED: ACETAMINOPHEN 500 MG TAB PO ONE (04:30)
[2019-10-06] MEDS ORDERED: SODIUM CHLORIDE 0.9% 1000ML 1,000 ML IV PRN (07:34)
[2019-10-06] MEDS ORDERED: HEPARIN SOD (PORCINE) 1000 UNIT/ML 10 ML VIAL IV SCH (08:00)
[2019-10-06] MEDS: ACETAMINOPHEN 325 MG TAB PO PRN ×3 (08:01→20:15)
--- NOTE | 2019-10-06 08:01 | Pharmacy Report ---
Glycemic Control Consultation - Date of Service October 06, 2019 - Scope Scope: Glycemic Pharmacist consulted by Dr Galvez on 10/06/19 for glycemic control and to write orders per [facility] inpatient glycemic control protocol - Objective Weight: 72.8 kg Accuchecks BSG (last 24hrs): 10/05/19 10/05/19 10/05/19 11:30 15:39 15:41 POC Glucose 210 H 375 H* 359 H* 10/05/19 10/05/19 10/05/19 16:50 16:52 17:48 POC Glucose 362 H* 386 H* 318 H* 10/05/19 10/05/19 10/05/19 17:50 20:12 20:14 POC Glucose 340 H* 324 H* 332 H* 10/05/19 10/06/19 10/06/19 23:31 00:59 02:00 POC Glucose 301 H* 275 H 237 H 10/06/19 07:50 POC Glucose 202 H HbA1c: Hemoglobin A1c 8.3 % (4.5-5.6) H 10/04/19 07:35 - Recent Pertinent Medications Outpatient Anti-diabetic Regimen: * Lantus 15 units HS * Novolog SS * A1c = 8.3 % 10/04/19 The patient is currently receiving: * Basal insulin: Lantus 10 units every 24 hours * Correctional Insulin: Novolog Correction per scale ACHS Goal Range: Low 160 mg/dL - High 200 mg/dL Correction Factor: 30 mg/dL/unit * Prandial insulin: Per carb ratio of 1 unit per 7 grams CHO consumed Risk Factors for Insulin Resistance: * Infection: IV Vancomycin, Gram positive cocci growing in 1/2 blood cultures * Diet: Type 1 DM - Assessment & Plan Assessment & Plan: ASSESSMENT: * 34 year old male admitted with hyperglycemia, noncompliance with PD, started HD while inpatient, received 10/04 and scheduled again for this afternoon. Started IV antibiotics for fever and bacteremia, urine cultures pending. * Brittle type 1 diabetic dx at 13 years of age, with lows in 30's at home. Follows with Yvon at [facility] clinic in [place]. * Blood sugars trending high over past 24 hours, but patient also started having N/V, gastroparesis. * Patient had 7 units of novolog with breakfast to correct for blood sugar of 202mg/dl and cover 52 grams of CHO, but then vomited everything up after eating. Dr Galvez aware. Patient had Phenergan at 0500, trying lorazepam now, pt with QT prolongation. * May need to consider low rate of D5W IV fluids. * No changes in insulin doses at this time, will adjust goal range, will follow trends and adjust conservatively to minimize hyper and hypoglycemia. PLAN FOR INPATIENT GLYCEMIC CONTROL: * Basal insulin * Lantus 10 units SQ HS * Bolus insulin * NovoLog per scale ACHS or Q6hrs while NPO * Goal Range: Low 120 mg/dL - High 160 mg/dL - change to try to prevent hypoglycemia * Correction Factor: 30 mg/dL/unit * Nutritional / Prandial insulin per carb ratio of 1 unit per 7 grams CHO consumed * Please note that the plan above was derived based on current level of insulin resistance and hospital stress. These recommendations are appropriate for inpatient admission only. Plan of care upon discharge will need to be reassessed to avoid potential outpatient hypo/hyperglycemia. Thank you.
[2019-10-06 08:10] LABS: Creatinine Clr Calc Pharmacy 10.2 ml/min; Est GFR (African American) 6.6; Est GFR (Non-African American) 5.7
[2019-10-06] MEDS: CALCIUM ACETATE 667 MG CAP PO SCH ×3 (08:20→17:10)
[2019-10-06] MEDS: VELPHORO PO SCH ×3 (08:20→17:09)
[2019-10-06] MEDS: INSULIN ASPART 100 UNITS/ML 3 ML PEN SC SCH ×4 (08:20→20:22)
[2019-10-06] MEDS: CALCIUM CARBONATE 500 MG CHEWABLE TAB PO SCH ×2 (08:21→17:11)
--- NOTE | 2019-10-06 08:48 | Pharmacy Report ---
Pharmacy Abx Initial Consult - Date of Service October 06, 2019 - Pharmacy Dosing Scope Date of Consult: 10/05/19 Consultation requested by: Dr. Galvez Pharmacy is consulted to initiate Vancomycin IV dosing therapy, order appropriate labs and adjust drug dose/frequency. - Subjective The patient is a 34 year old M admitted on 10/03/19 16:04, pt with fevers, N/V, repeat Urine and blood cultures, 1/2 blood growing gram positive cocci. - Objective Height: 5 ft 10 in Weight: 72.8 kg Vital Signs (Past 12hrs): Vital Signs Temp Pulse Pulse Pulse Resp BP Pulse Ox 10/06/19 07:13 38 C H 83 20 142/72 H 91 10/06/19 03:41 39.2 C H 81 18 159/79 H 95 10/05/19 23:46 38.4 C H 80 18 130/63 97 10/05/19 23:15 97 H 10/05/19 22:19 75 10/05/19 21:05 39.4 C H 97 H 18 169/80 H 95 Lab Results (24hrs): Laboratory Tests (24 Hours) 10/06/19 10/06/19 07:11 07:11 Creatinine 10.40 H* D Est Cr Clr Drug Dosing 10.2 Random Vancomycin 26.1 Micro Results: 10/05/19 17:58 Aerobic Blood Culture - Pending Blood 10/05/19 18:01 Aerobic Blood Culture - Pending Blood Anaerobic Blood Culture - Pending 10/05/19 20:15 Urine Culture - Pending Urine,Clean Catch - Risk Factors for Resistance * Chronic dialysis within the past 30 days * Antimicrobial use within the last 90 days - Doxycycline 10/05-10/06; Cefepime 2g IV x 1 dose 10/05 - Assessment & Plan Assessment 34 year old M admitted with hyperglycemia, possibly noncompliant with PD, started HD as inpatient, spiking fevers yesterday, N/V continues today. UA day of admission showed + leukocytosis, WBC's, bacteria, many epithelial cells. Urine culture not obtained at that time. Repeat UA 10/05 shows similar findings; urine culture ordered. Has erythema and tenderness left antecubital fossa at IV site; may have suppurative phlebitis. Initially ordered doxycycline (before fever, nausea/vomiting). IV vancomycin + cefepime ordered 10/05 - pt had 1 dose of IV cefepime, discontinued and continuing IV Vancomycin for gram positive cocci in blood 08/24. Chest x-ray showed ?? infiltrate left base. Plan IV Vancomycin for treatment of fever and gram positive cocci in blood. Vancomycin IV * Loading dose: 1500 mg (20 mg/kg) x 1 dose last night at 2310 * Random Vancomycin level is 26.1mcg/ml this morning. Patient therapeutic, scheduled for HD today. * Vancomycin 500mg IV x 1 today after HD with random level in AM Pharmacy will continue to follow and will adjust dose/frequency as necessary. Thank you.
[2019-10-06] MEDS: CHOLECALCIFEROL 1,000 UNITS 25 MCG TAB PO SCH (09:05)
[2019-10-06] MEDS: LORazepam 0.5 MG/1 ML VIAL IV PRN ×2 (09:35→21:31)
--- NOTE | 2019-10-06 09:54 | Nephrology Progress Note ---
Date of Service October 06, 2019 Assessment & Plan (1) ESRD (end stage renal disease): ESRD on PD. No concerns for peritonitis; many concerns however that he is simply not doing txs. Marked worsening of OP labs past 2 months. He has functional AV fistula -patient had HD on 10/04/2019. Will do HD today. Patient now septic. Will avoid UF -renal nurses to flush PD catheter and change dressing weekly -will plan to switch to PD on discharge. (2) Anemia in ESRD (end-stage renal disease): t stn 29% this month TERRI as indicated w/ HD monitor hgb q 48 hr (3) Labile essential hypertension: Blood pressure is Controlled on current regimen. (4) Bacteremia: Due to gram positive cocci. Unclear source but could be iv site. he is getting vanco per primary team. If discharged vanco can be administered at dialysis unit. Dialysis unit will likely not supply the vanco though. Admission and Anticipated Discharge Date Admission Date: October 03, 2019 Subjective Patient complains of fever and vomiting which started last night. Last dialysis was on Wednesday. No shortness of breath. No abdominal pain. PD catheter was flushed on Wednesday. He has not had PD since admission. Review of Systems Review of Systems: All systems reviewed & are unremarkable except as noted in HPI & below Physical Exam Physical Exam: General exam: Appears comfortable, no acute distress HEENT: Pupils are equal and reactive to light Neck: No JVD, neck is supple trachea is midline Respiratory system: Clear breath sounds bilaterally. Gastrointestinal: Abdomen is soft, non distended, non tender, bowel sounds are present. PD catheter exit site clean CVS: Regular rate and rhythm. No murmurs, rubs or gallops Musculoskeletal: No joint or muscle tenderness Extremities: Non tender, no edema, peripheral pulses are present Neuro: Oriented, no tremors, no focal neurological deficits Skin: No rashes Access: Left upper arm AV fistula with good bruit Results & Data ([facility] [place]) Vital Signs (Past 12 Hours) Vital Signs Temp Pulse Pulse Pulse Resp BP Pulse Ox 10/06/19 09:05 38.7 C H 10/06/19 07:13 38 C H 83 20 142/72 H 91 10/06/19 03:41 39.2 C H 81 18 159/79 H 95 10/05/19 23:46 38.4 C H 80 18 130/63 97 10/05/19 23:15 97 H 10/05/19 22:19 75 Laboratory Results 10/06/19 07:11
[2019-10-06] MEDS ORDERED: DOXYCYCLINE HYCLATE 100 MG CAP PO SCH (10:00)
[2019-10-06] MEDS: HYDROmorphone INJ 0.5 MG/0.5 ML SYR IV PRN (13:53)
[2019-10-06] MEDS: CLOPIDOGREL BISULFATE 75 MG TAB PO SCH (15:03)
[2019-10-06] MEDS: AMLODIPINE BESYLATE 5 MG TAB PO SCH (15:03)
[2019-10-06] MEDS: carvediloL 25 MG TAB PO SCH ×2 (15:03→20:17)
[2019-10-06] MEDS ORDERED: VANCOMYCIN HCL 500 MG in 0.9 % SODIUM CHLORIDE 100 ML IV SCH (16:00)
--- NOTE | 2019-10-06 19:01 | Hospitalist Progress Note ---
Date of Service October 06, 2019 Assessment & Plan (1) End-stage renal disease (ESRD): Suspected noncompliance with peritoneal dialysis. Hemodialysis initiated. Ongoing management per Nephrology. 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 Severe hypoglycemia (30) at home. Patient attributes hypoglycemic episode at home to missed meal. Hemoglobin A1c 8.3. Blood sugars fluctuating due to acute illness and variable PO intake. Pharmacy consulted for glycemic management. FBS this morning = 202. (3) Fall: Suspected fall, but patient not 100% certain whether he fell or not. Fall possibly secondary to hypoglycemia. PT/OT. (4) Anemia in ESRD (end-stage renal disease): Anemia of chronic kidney disease. Hemoglobin 10.5. Follow. (5) Hypertension: Continue carvedilol, amlodipine, doxazosin. (6) Nausea & vomiting: Intermittent nausea and vomiting. Probably has gastroparesis (although could not find any gastric emptying scans). Anti-emetics PRN (no ondansetron or other QT-prolonging meds like promethazine). Further evaluation if symptoms persist / worsen. (7) Fever: Spiked fever evening of 10/05. Chest x-ray showed ?? infiltrate left base, but no cough and lungs clear. Patient reports occasional voiding with chronic dysuria. UA day of admission showed + leukocytosis, WBC's, bacteria, many epithelial cells; urine culture not obtained at that time. Repeat UA 10/05 showed similar findings; urine culture ordered. Developed erythema and tenderness left antecubital fossa at IV site; may have suppurative phlebitis. Blood cultures obtained and empiric IV antibiotic therapy with vancomycin and cefepime initiated. 2 of 2 blood cultures today reported growing gram-positive cocci. PCR's-staph aureus, not MRSA. Antibiotic therapy de-escalated with discontinuation cefepime. Continue IV vancomycin. Check repeat blood cultures with morning labs. Consult ID once final culture reports available. (8) DVT prophylaxis: Anticoagulants not utilized due to possible head injury. SCDs ordered. Ambulate. (9) Discharge planning issues: Anticipated discharge to home. Family Medicine follow-up with Dr. Coffey. Diabetes management per [facility]. Admission and Anticipated Discharge Date Admission Date: October 03, 2019 Subjective Recheck for multiple problems. Patient seen in their room around 1020. Spiked fever last night. Nausea and vomiting last evening and early this morning. No abdominal pain. No diarrhea. No cough. Less discomfort at IV site left antecubital fossa. Blood sugars fluctuating. Review of Systems: Constitutional- as noted above. Cardiac- no chest pain. Pulmonary- as noted above. GI- as noted above. - oliguric. Otherwise, as noted above. Physical Exam Constitutional: no acute distress Respiratory: no respiratory distress Auscultation: lungs clear to auscultation bilaterally Cardiovascular: Rate/Rhythm: regular rate and regular rhythm Vessels: no JVD Extremities: no calf tenderness and no edema Gastrointestinal (Abdomen): normal bowel sounds, soft, nontender, no hepatosplenomegaly Musculoskeletal: Extremities: no cyanosis Skin: less erythema and tenderness left antecubital fossa Psychiatric: Orientation: alert and oriented x 3 Results & Data ([facility]) Vital Signs (Past 12 Hours) Vital Signs Temp Pulse Pulse Resp BP BP Pulse Ox 10/06/19 15:22 39.1 C H 96 H 19 177/88 H 90 10/06/19 14:37 37.5 C 94 H 183/94 H 10/06/19 14:00 86 173/87 H 10/06/19 13:30 83 152/77 H 10/06/19 13:00 83 162/88 H 10/06/19 12:30 78 169/85 H 10/06/19 12:00 76 146/71 H 10/06/19 11:30 74 154/83 H 10/06/19 11:02 72 146/80 H 10/06/19 10:42 80 10/06/19 10:02 37.9 C H 73 10/06/19 09:05 38.7 C H 10/06/19 07:13 38 C H 83 20 142/72 H 91 Laboratory Results Laboratory Results - last 24 hr 10/05/19 10/05/19 10/05/19 18:01 20:12 20:14 Potassium Creatinine Est Cr Clr Drug Dosing Est GFR ( Amer) Est GFR (Non-Af Amer) POC Glucose 324 H* 332 H* Urine Color Urine Appearance Urine pH Ur Specific [place] Urine Protein Urine Glucose (UA) Urine Ketones Urine Blood Urine Nitrite Urine Bilirubin Urine Urobilinogen Ur Leukocyte Esterase Urine WBC (Auto) Urine RBC (Auto) U Hyaline Cast (Auto) U Epithel Cells (Auto) Urine Bacteria (Auto) Urine Yeast Urine Sperm Random Vancomycin Bld Cult Staph aureus PCR Positive A Blood Culture MRSA PCR Negative 10/05/19 10/05/19 10/06/19 20:15 23:31 00:59 Potassium Creatinine Est Cr Clr Drug Dosing Est GFR ( Amer) Est GFR (Non-Af Amer) POC Glucose 301 H* 275 H Urine Color Yellow Urine Appearance Turbid A Urine pH 6.5 Ur Specific [place] 1.018 Urine Protein 4+ H Urine Glucose (UA) 2+ H Urine Ketones Trace H Urine Blood 2+ H Urine Nitrite Negative Urine Bilirubin Negative Urine Urobilinogen Negative Ur Leukocyte Esterase 3+ H Urine WBC (Auto) >30 H Urine RBC (Auto) 5-10 H U Hyaline Cast (Auto) Not Reportable U Epithel Cells (Auto) >30 H Urine Bacteria (Auto) 2+ H Urine Yeast Not Reportable Urine Sperm Present A Random Vancomycin Bld Cult Staph aureus PCR Blood Culture MRSA PCR 10/06/19 10/06/19 10/06/19 02:00 07:11 07:11 Potassium Creatinine 10.40 H* D Est Cr Clr Drug Dosing 10.2 Est GFR ( Amer) 6.6 Est GFR (Non-Af Amer) 5.7 POC Glucose 237 H Urine Color Urine Appearance Urine pH Ur Specific [place] Urine Protein Urine Glucose (UA) Urine Ketones Urine Blood Urine Nitrite Urine Bilirubin Urine Urobilinogen Ur Leukocyte Esterase Urine WBC (Auto) Urine RBC (Auto) U Hyaline Cast (Auto) U Epithel Cells (Auto) Urine Bacteria (Auto) Urine Yeast Urine Sperm Random Vancomycin 26.1 Bld Cult Staph aureus PCR Blood Culture MRSA PCR 10/06/19 10/06/19 10/06/19 07:11 07:50 10:35 Potassium 4.3 D Creatinine Est Cr Clr Drug Dosing Est GFR ( Amer) Est GFR (Non-Af Amer) POC Glucose 202 H 180 H Urine Color Urine Appearance Urine pH Ur Specific [place] Urine Protein Urine Glucose (UA) Urine Ketones Urine Blood Urine Nitrite Urine Bilirubin Urine Urobilinogen Ur Leukocyte Esterase Urine WBC (Auto) Urine RBC (Auto) U Hyaline Cast (Auto) U Epithel Cells (Auto) Urine Bacteria (Auto) Urine Yeast Urine Sperm Random Vancomycin Bld Cult Staph aureus PCR Blood Culture MRSA PCR 02/14/20 16:33 Potassium Creatinine Est Cr Clr Drug Dosing Est GFR ( Amer) Est GFR (Non-Af Amer) POC Glucose 166 H Urine Color Urine Appearance Urine pH Ur Specific [place] Urine Protein Urine Glucose (UA) Urine Ketones Urine Blood Urine Nitrite Urine Bilirubin Urine Urobilinogen Ur Leukocyte Esterase Urine WBC (Auto) Urine RBC (Auto) U Hyaline Cast (Auto) U Epithel Cells (Auto) Urine Bacteria (Auto) Urine Yeast Urine Sperm Random Vancomycin Bld Cult Staph aureus PCR Blood Culture MRSA PCR Microbiology 10/05/19 20:15 Urine,Clean Catch Urine Culture - Preliminary Pin-point growth present, reincubating. 10/05/19 17:58 Blood Aerobic Blood Culture - Preliminary Gram positive cocci clusters 10/05/19 17:58 Blood Anaerobic Blood Culture - Preliminary Gram positive cocci clusters 10/05/19 18:01 Blood Aerobic Blood Culture - Preliminary Gram positive cocci clusters 10/05/19 18:01 Blood Anaerobic Blood Culture - Preliminary Gram positive cocci clusters (1) Fall Encounter type: initial encounter Qualified Code(s): W19.XXXA - Unspecified fall, initial encounter
[2019-10-06] MEDS: INSULIN GLARGINE SOLOSTAR 100 UNITS/ML 3 ML PEN SC SCH (20:18)
[2019-10-06] MEDS: TRAZODONE HCL 50 MG TAB PO SCH (20:18)
[2019-10-06] MEDS: ROPINIROLE HCL 0.25 MG TABLET PO SCH (20:19)
[2019-10-06] MEDS: ATORVASTATIN 40 MG TAB PO SCH (20:19)
[2019-10-06] MEDS: DOXAZosin MESYLATE TAB 2 MG TAB PO SCH (21:30)
[2019-10-06] MEDS ORDERED: CEFEPIME 500 MG in SYRINGE 0 ML IV SCH (22:00)
[2019-10-07] MEDS: ACETAMINOPHEN 325 MG TAB PO PRN ×3 (00:18→17:22)
[2019-10-07] MEDS: INSULIN ASPART 100 UNITS/ML 3 ML PEN SC SCH ×5 (07:58→21:18)
[2019-10-07] MEDS: VELPHORO PO SCH ×3 (07:59→17:22)
[2019-10-07] MEDS: CALCIUM ACETATE 667 MG CAP PO SCH ×3 (08:00→17:23)
[2019-10-07] MEDS: CALCIUM CARBONATE 500 MG CHEWABLE TAB PO SCH ×2 (08:01→17:23)
[2019-10-07] MEDS: CHOLECALCIFEROL 1,000 UNITS 25 MCG TAB PO SCH (08:01)
[2019-10-07] MEDS: AMLODIPINE BESYLATE 5 MG TAB PO SCH (08:01)
[2019-10-07] MEDS: carvediloL 25 MG TAB PO SCH ×2 (08:02→21:16)
[2019-10-07] MEDS: CLOPIDOGREL BISULFATE 75 MG TAB PO SCH (08:02)
[2019-10-07 08:45] LABS: Hematocrit (blood only) 31.4 % (42-52); Hemoglobin 10.5 g/dL (14.0-18.0); Mean Corpuscular Hemoglobin 30.3 pg (25-34); Mean Corpuscular Hgb Conc 33.4 g/dL (32-36); Mean Corpuscular Volume 90.8 fL (80-100); Platelet Count 186 K/uL (130-400); Red Blood Count 3.46 M/uL (4.7-6.1); White Blood Count 6.85 K/uL (4.8-10.8)
[2019-10-07] MEDS: LORazepam 0.5 MG/1 ML VIAL IV PRN (08:47)
[2019-10-07 08:56] LABS: Calcium 8.6 mg/dl (8.5-10.1); Creatinine Clr Calc Pharmacy 14.7 ml/min; Est GFR (African American) 10.4; Potassium 4.6 mmol/L (3.5-5.1)
--- NOTE | 2019-10-07 09:07 | Pharmacy Report ---
Pharmacy Abx Dose Progress Nt - Date of Service October 07, 2019 - Pharmacy Dosing Scope The patient is currently receiving the following antimicrobial agents per Pharmacy consult: Vancomycin - dosing based on levels and HD schedule - Objective Vital Signs (Past 12hrs): Vital Signs Temp Pulse Pulse Pulse Resp BP Pulse Ox 10/07/19 08:00 38.8 C H 76 18 169/84 H 94 10/07/19 07:17 78 10/07/19 04:21 37.8 C H 69 19 133/73 97 10/07/19 00:20 75 10/06/19 23:21 38.2 C H 75 20 158/70 H 94 10/06/19 21:40 38.8 C H Lab Results (24hrs): Laboratory Tests (24 Hours) 10/07/19 10/07/19 10/07/19 07:49 07:49 07:49 WBC 6.85 Creatinine 7.14 H* D Est Cr Clr Drug Dosing 14.7 Random Vancomycin 23.8 Micro Results: Microbiology 10/05/19 20:15 Urine,Clean Catch Urine Culture - Preliminary Pin-point growth present, reincubating. 10/05/19 18:01 Blood Aerobic Blood Culture - Preliminary 10/05/19 18:01 Blood Anaerobic Blood Culture - Preliminary Staphylococcus aureus Staphylococcus aureus 10/05/19 17:58 Blood Aerobic Blood Culture - Preliminary 10/05/19 17:58 Blood Anaerobic Blood Culture - Preliminary Staphylococcus aureus Staphylococcus aureus Laboratory Tests 10/05/19 18:01 Bld Cult Staph aureus PCR Positive A Blood Culture MRSA PCR Negative - Risk Factors for Resistance * Chronic dialysis within the past 30 days * Antimicrobial use within the last 90 days - Doxycycline 10/05-10/06; Cefepime 2g IV x 1 dose 10/05 - Assessment & Plan Assessment 34 year old M receiving Vancomycin for treatment of staph aureus bacteremia - c/s still pending Day # 3 of antimicrobial therapy Vancomycin is currently being dosed per protocol after HD sessions according to pre-HD level Plan Vancomycin IV * Random level of 23.8 mcg/ml this morning is slightly supratherapeutic * Last HD session was yesterday - 500mg IV Vanco given after HD. * HD session was complete - 3.5 hr length 0.5 L fluid removal * No HD ordered for today. Vancomycin level unlikely to decrease/change without HD. No vanco needed today. * Goal trough level for bacteremia : 15 to 20 mcg/mL * Random level ordered for prior to next HD session (Wednesday10/09/19) Pharmacy will continue to follow and will adjust dose/frequency as necessary. Thank you.
[2019-10-07 09:16] LABS: BUN Creatinine Ratio 3.7 (10-20)
[2019-10-07] MEDS ORDERED: PANTOprazole 80 MG in DEXTROSE 5% 100 ML IV SCH (10:15)
[2019-10-07] MEDS: PANTOprazole 40 MG in DEXTROSE 5% 100 ML IV SCH ×3 (10:29→19:31)
[2019-10-07 14:12] LABS: Hemoglobin 9.9 g/dL (14.0-18.0)
[2019-10-07] MEDS: HYDROmorphone INJ 0.5 MG/0.5 ML SYR IV PRN (17:52)
[2019-10-07] MEDS ORDERED: HYDROmorphone INJ 0.5 MG/0.5 ML SYR IV ONE (19:42)
[2019-10-07 20:01] LABS: Hematocrit (blood only) 27.7 % (42-52); Hemoglobin 9.2 g/dL (14.0-18.0)
[2019-10-07] MEDS: DOXAZosin MESYLATE TAB 2 MG TAB PO SCH (21:16)
[2019-10-07] MEDS: INSULIN GLARGINE SOLOSTAR 100 UNITS/ML 3 ML PEN SC SCH (21:17)
[2019-10-07] MEDS: TRAZODONE HCL 50 MG TAB PO SCH (21:17)
[2019-10-07] MEDS: ROPINIROLE HCL 0.25 MG TABLET PO SCH (21:18)
[2019-10-07] MEDS: ATORVASTATIN 40 MG TAB PO SCH (21:18)
--- NOTE | 2019-10-07 21:32 | Hospitalist Progress Note ---
Date of Service October 07, 2019 Assessment & Plan (1) End-stage renal disease (ESRD): Worsening renal function despite peritoneal dialysis. Hemodialysis initiated. Ongoing management per Nephrology. 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 Severe hypoglycemia (30) at home. Patient attributes hypoglycemic episode at home to missed meal. Hemoglobin A1c 8.3. Blood sugars fluctuating due to acute illness and variable PO intake. Pharmacy consulted for glycemic management. FBS this morning = 180. (3) Fall: Suspected fall, but patient not 100% certain whether he fell or not. Fall possibly secondary to hypoglycemia. PT/OT. (4) Anemia in ESRD (end-stage renal disease): Anemia of chronic kidney disease. Baseline hemoglobin 10 - 10.5. Now with acute blood loss anemia due to GI bleeding as discussed below. Follow. (5) Hypertension: Continue carvedilol, amlodipine, doxazosin. (6) Nausea & vomiting: Intermittent nausea and vomiting. Probably has gastroparesis (although could not find any gastric emptying scans). Anti-emetics PRN (no ondansetron or other QT-prolonging meds like promethazine). Further evaluation if symptoms persist / worsen. (7) Fever: Spiked fever evening of 10/05. Chest x-ray showed ?? infiltrate left base, but no cough and lungs clear. Patient reports occasional voiding with chronic dysuria. UA day of admission showed + leukocytosis, WBC's, bacteria, many epithelial cells; urine culture not obtained at that time. Repeat UA 10/05 showed similar findings; urine culture ordered and is growing gram + cocci. Developed erythema and tenderness left antecubital fossa at IV site; may have suppurative phlebitis. Blood cultures obtained and empiric IV antibiotic therapy with vancomycin and cefepime initiated. 2 of 2 blood cultures from 10/05 growing gram-positive cocci. PCR's-staph aureus, not MRSA. Antibiotic therapy de-escalated with discontinuation of cefepime. Check repeat blood cultures with morning labs today and tomorrow. Nafcillin ideal drug of choice for MSSA, but vancomycin may be more pragmatic with hemodialysis. Continue IV vancomycin. Consult ID once final culture reports available. (8) GI bleedin episodes of loose dark stools this morning. No abdominal pain. Has had several episodes of emesis without les blood or coffee grounds. Hemodynamically stable. Hold clopidogrel (prescribed for TIA). Type and screen pRBC's. IV pantoprazole. Consult GI. (9) Acute blood loss anemia: Baseline Hgb 10 - 10.5. Now with GI bleeding. Hgb this morning 10.5, repeat this afternoon 9.9. Acute blood loss anemia due to GI bleeding. No transfusion necessary at this time. Follow H/H. (10) DVT prophylaxis: Anticoagulants not utilized due to possible head injury. SCDs ordered. Ambulate. (11) Discharge planning issues: Anticipated discharge to home. Family Medicine follow-up with Dr. Coffey. Diabetes management per [facility]. Admission and Anticipated Discharge Date Admission Date: October 03, 2019 Subjective Recheck for multiple problems. Patient seen in their room around 1540. 2 loose dark stools this morning, none since. No abdominal pain. No further nausea / vomiting. Hemodynamically stable. Still having intermittent temps. Still has pain left antecubital fossa. Review of Systems: Constitutional- as noted above. Cardiac- no chest pain. Pulmonary- as noted above. GI- as noted above. - oliguric. Otherwise, as noted above. Physical Exam Constitutional: no acute distress Respiratory: no respiratory distress Auscultation: lungs clear to auscultation bilaterally Cardiovascular: Rate/Rhythm: regular rate and regular rhythm Vessels: no JVD Extremities: no calf tenderness and no edema Gastrointestinal (Abdomen): normal bowel sounds, soft, nontender, no hepatosplenomegaly Musculoskeletal: Extremities: no cyanosis Skin: erythema and warmth left antecubital fossa improved Psychiatric: Orientation: alert and oriented x 3 Results & Data ([facility]) Vital Signs (Past 12 Hours) Vital Signs Temp Pulse Pulse Pulse Resp BP Pulse Ox 10/07/19 19:40 37.3 C 10/07/19 19:27 38.0 C H 67 16 139/74 95 10/07/19 16:19 63 10/07/19 15:25 36.8 C 65 17 129/62 97 10/07/19 12:00 36.9 C 65 18 133/73 93 Laboratory Results 10/07/19 19:26 10/07/19 07:49 Microbiology 10/05/19 20:15 Urine,Clean Catch Urine Culture - Preliminary Gram positive cocci 10/05/19 18:01 Blood Aerobic Blood Culture - Preliminary Staphylococcus aureus 10/05/19 18:01 Blood Anaerobic Blood Culture - Preliminary Staphylococcus aureus 10/05/19 17:58 Blood Aerobic Blood Culture - Preliminary Staphylococcus aureus 10/05/19 17:58 Blood Anaerobic Blood Culture - Preliminary Staphylococcus aureus (1) Fall Encounter type: initial encounter Qualified Code(s): W19.XXXA - Unspecified fall, initial encounter
[2019-10-08] MEDS: PANTOprazole 40 MG in DEXTROSE 5% 100 ML IV SCH ×4 (00:34→17:28)
[2019-10-08] MEDS: LORazepam 0.5 MG/1 ML VIAL IV PRN (00:41)
[2019-10-08] MEDS ORDERED: HYDROmorphone INJ 1 MG/ML SYRINGE IV SCH (02:00)
--- NOTE | 2019-10-08 02:00 | Communication Note ---
Date of Service: October 08, 2019 Patient experiencing worsening pain and swelling of left forearm. Has IV site above wrist. No swelling / tenderness LUE proximally. Suspect that swelling is due to IV infiltration, but there was concern about infected IV site left antecubital fossa and may have superficial thrombophlebitis. Check venous duplex + soft tissue US of LUE. If DVT is noted, will not be able to anticoagulate due to GI bleeding within past 24 hours.
[2019-10-08] MEDS: ACETAMINOPHEN 325 MG TAB PO PRN (03:18)
[2019-10-08 06:00] LABS: Hematocrit (blood only) 30.1 % (42-52); Hemoglobin 9.7 g/dL (14.0-18.0); Mean Corpuscular Hemoglobin 29.4 pg (25-34); Mean Corpuscular Hgb Conc 32.2 g/dL (32-36); Mean Corpuscular Volume 91.2 fL (80-100); Mean Platelet Volume 10.5 fL (7.4-10.4); Platelet Count 146 K/uL (130-400); RDW Coefficient of Variation 13.7 % (11.5-14.5); RDW Standard Deviation 45.8 fL (36.4-46.3); White Blood Count 6.43 K/uL (4.8-10.8)
[2019-10-08] MEDS ORDERED: HydrALAZINE HCL 20 MG/ML VIAL IV STA (06:12)
[2019-10-08 06:42] LABS: BUN Creatinine Ratio 4.5 (10-20); Calcium 8.4 mg/dl (8.5-10.1); Creatinine Clr Calc Pharmacy 11.5 ml/min; Est GFR (African American) 7.6; Est GFR (Non-African American) 6.6; Potassium 4.6 mmol/L (3.5-5.1)
--- NOTE | 2019-10-08 07:31 | Ultrasound Report ---
ULTRASOUND LEFT UPPER EXTREMITY VENOUS CLINICAL HISTORY: Left arm pain and swelling. COMPARISON STUDY: No priors.. TECHNIQUE: Real-time, grayscale, and color Doppler sonography of the deep veins of the left upper ext remity is performed. Compression and augmentation were utilized. FINDINGS: There is no sonographic evidence of deep venous thrombosis identified in the left upper ext remity. The left internal jugular, axillary, and brachial veins are patent and normally compressible. Normal venous waveforms and augmentation are seen within the left subclavian vein. The visualized ra dial and ulnar veins are patent. There is occlusive superficial venous thrombus identified within the cephalic vein which extends into additional superficial veins in the antecubital fossa. Superficial venous thrombus extends greater than 5 cm in craniocaudal length. The basilic vein appears clear. IMPRESSION: 1. There is no sonographic evidence of deep venous thrombosis identified in the left upper extremity. 2. There is occlusive superficial venous thrombus identified in the distal cephalic vein which extend s into additional superficial veins in the antecubital fossa. ACT 112: Negative or not required by law. Electronically signed by: Alvarez Juan M.D. 10/08/2019 7:30 AM
--- NOTE | 2019-10-08 07:35 | Ultrasound Report ---
ULTRASOUND LEFT UPPER EXTREMITY NONVASCULAR CLINICAL HISTORY: Left forearm swelling. COMPARISON STUDY: Venous ultrasound of the left upper extremity performed concurrently on 10/08/2019. FINDINGS: Real-time, grayscale, and color flow sonography of the soft tissues of the antecubital jermain a is performed at the site of interest. There is subcutaneous soft tissue edema identified at this si te. No organized fluid collection is seen. Occlusive superficial venous thrombus is identified in thi s region. IMPRESSION: 1. Soft tissue edema with no organized fluid collection identified. 2. There is occlusive superficial venous thrombus identified in the antecubital fossa. See report of left upper extremity vascular ultrasound performed concurrently for detailed vascular findings. Electronically signed by: Alvarez Juan M.D. 10/08/2019 7:34 AM
[2019-10-08] MEDS: VELPHORO PO SCH ×3 (08:12→17:14)
[2019-10-08] MEDS: CHOLECALCIFEROL 1,000 UNITS 25 MCG TAB PO SCH (08:13)
[2019-10-08] MEDS: CALCIUM ACETATE 667 MG CAP PO SCH ×3 (08:13→17:14)
[2019-10-08] MEDS: CALCIUM CARBONATE 500 MG CHEWABLE TAB PO SCH ×2 (08:17→17:27)
[2019-10-08] MEDS: INSULIN ASPART 100 UNITS/ML 3 ML PEN SC SCH ×4 (08:18→21:11)
[2019-10-08] MEDS: carvediloL 25 MG TAB PO SCH ×2 (09:20→21:09)
[2019-10-08] MEDS: AMLODIPINE BESYLATE 5 MG TAB PO SCH (09:20)
--- NOTE | 2019-10-08 10:58 | Nephrology Progress Note ---
Date of Service October 08, 2019 Assessment & Plan (1) Dialysis patient, noncompliant: ESRD on PD. No concerns for peritonitis; many concerns however that he is simply not doing txs prior to admission. Marked worsening of OP labs past 2 months. He has functional AV fistula -patient had HD on 10/06/2019. w/ no UF >> next HD on 10/09 w/ UF -renal nurses to flush PD catheter and change dressing weekly > will verify last time this done (believe 10/04) -will hope to switch back to PD after IV abtx completed if these are to be given w/ HD and if pt agrees to home health visits at least 2x weekly to start--may need to evaluate after d/c -d/t F, I liberalized FR to 2L daily, though this may need to be scaled back if HTN continues Present on Admission?: Yes (2) Anemia in ESRD (end-stage renal disease): t stn 29% this month TERRI as indicated w/ HD monitor hgb daily w/ heme + stool; on protonix; has been fairly stable (3) Labile essential hypertension: Blood pressure is elevated >> needs HD tomorrow first tx; cont current meds (4) Bacteremia: Due to MSSA attributed to suppurative phlebitis at L AC IV site; however also w/ MSSA in urine. getting vanco per primary team but nafcillin while in house may be more suitable. -still spiking temps>> ordered PVR check bid for now; discussing w/ Dr Galvez most appropriate abtx and abd imaging -inf dzs c/s pending -If discharged vanco can be administered at dialysis unit but will need to be supplied by pt/ by specialty pharmacy. (5) Fever: w/ bacteremia on abtx and ongoing F; see above Present on Admission?: No Admission and Anticipated Discharge Date Admission Date: October 03, 2019 Subjective T max ON 39.3; 38.1 last check; feels weaker, more exhausted past 2 days w/ F than on admission; no voiding c/o; no sob or n/v or abd pain. L arm pain at former IV site. bladder scan 170 mL today-unclear if pVR or not and ordered to check pvr; asks what his clinical issues are; tells me he feels he's lost track of them; on protonix gtt for heme + stool dislikes FR Review of Systems Review of Systems: All systems reviewed & are unremarkable except as noted in HPI & below Physical Exam Constitutional: well developed, well nourished and + ill appearing; no acute distress Eyes: EOM intact bilaterally ENMT: Ears: no external ear abnormality Nose: no external nose abnormality Mouth: + dry oral mucous membranes Neck: no nuchal rigidity Respiratory: normal respiratory effort; no respiratory distress and no labored breathing Auscultation: lungs clear to auscultation bilaterally and + diminished lung sounds Cardiovascular: Rate/Rhythm: regular rate and regular rhythm Extremities: + edema (2 + BLE ) and + AV fistula (+ t/b) Gastrointestinal (Abdomen): Inspection/Auscultation: normal bowel sounds Percussion/Palpation: abdomen soft; abdomen nontender Musculoskeletal: Extremities: strength 5/5 throughout Skin: no rashes, warm and dry + lesion (L forearm w/ compress on it) Trauma: + contusion (R brow; resolving) Psychiatric: Orientation: alert and oriented x 3 Speech: normal rate/rhythm/volume of speech (some hoarseness) Affect: + flat affect Insight: + impaired insight Judgement: + impaired judgement Results & Data ([facility]) Vital Signs (Past 12 Hours) Vital Signs Temp Pulse Pulse Pulse Resp BP BP 10/08/19 07:37 72 10/08/19 07:14 38.1 C H 74 20 155/77 H 10/08/19 06:01 39.3 C H 83 201/77 H 10/08/19 03:03 39.3 C H 88 21 185/86 H 10/07/19 23:07 70 BP Pulse Ox 10/08/19 07:37 10/08/19 07:14 93 10/08/19 06:01 193/98 H 10/08/19 03:03 96 10/07/19 23:07 Laboratory Results 10/08/19 05:41 10/08/19 05:41
--- NOTE | 2019-10-08 11:19 | Pharmacy Report ---
Pharmacy Glycemic Short Note 2 - Date of Service October 08, 2019 - Glycemic Short BSG Results (Last 24 hours): 10/07/19 10/07/19 10/07/19 11:57 16:45 20:07 Glucose POC Glucose 180 H 132 H 148 H 10/08/19 10/08/19 05:41 08:00 Glucose 256 H POC Glucose 256 H OUTPATIENT ANTIDIABETIC REGIMEN: * Lantus 15 units HS * Novolog SS * A1c = 8.3 % 10/04/19 Risk Factors for Insulin Resistance: * Infection: IV Vancomycin, MSSA * IV Fluids: Protonix drip mixed in D5 * Diet: Type 1 DM ASSESSMENT: 10/08/19 * Blood sugars looking much better for this patient over past 48 hours, no hypoglycemia, somewhat elevated fasting of 256mg/dl this morning. Patient did start IV Protonix drip yesterday for GI Bleed. Will increase Lantus slight to help cover that dextrose. * No HD today or yesterday, scheduled again for tomorrow. * No further changes needed in insulin regimen at this time. 10/06/19 * 34 year old male admitted with hyperglycemia, noncompliance with PD, started HD while inpatient, received 10/04 and scheduled again for this afternoon. Started IV antibiotics for fever and bacteremia, urine cultures pending. * Brittle type 1 diabetic dx at 13 years of age, with lows in 30's at home. Follows with Yvon at [facility] clinic in [place]. * Blood sugars trending high over past 24 hours, but patient also started having N/V, gastroparesis. * Patient had 7 units of novolog with breakfast to correct for blood sugar of 202mg/dl and cover 52 grams of CHO, but then vomited everything up after eating. Dr Galvez aware. Patient had Phenergan at 0500, trying lorazepam now, pt with QT prolongation. * May need to consider low rate of D5W IV fluids. * No changes in insulin doses at this time, will adjust goal range, will follow trends and adjust conservatively to minimize hyper and hypoglycemia. PLAN FOR INPATIENT GLYCEMIC CONTROL: * Basal insulin -increase * Lantus 12 units SQ HS * Bolus insulin * NovoLog per scale ACHS or Q6hrs while NPO * Goal Range: Low 120 mg/dL - High 160 mg/dL - change to try to prevent hypoglycemia * Correction Factor: 30 mg/dL/unit * Nutritional / Prandial insulin per carb ratio of 1 unit per 7 grams CHO consumed
[2019-10-08] MEDS: HYDROmorphone INJ 0.5 MG/0.5 ML SYR IV PRN (17:27)
--- NOTE | 2019-10-08 18:29 | CT Scan Report ---
CT SCAN OF THE ABDOMEN AND PELVIS WITHOUT IV CONTRAST CLINICAL HISTORY: Generalized abdominal pain. Nausea and vomiting. COMPARISON STUDY: Abdominal CT dated 03/31/2019. TECHNIQUE: CT scan of the abdomen and pelvis is performed from the lung bases to the proximal femora. Images are reviewed in the axial, sagittal, and coronal planes. IV contrast was not administered for this examination as per the referring clinician. Note that the examination was performed in suboptim al fashion without oral and IV contrast. The Examination is also degraded by streak artifact from the left arm which could not be elevated above the abdomen. A dose lowering technique was utilized adher ing to the principles of ALARA. CT DOSE: 519.20 mGy.cm FINDINGS: Lung bases: The heart is normal in size and there is a trace pericardial effusion. There is age advan jean-claude atherosclerotic calcification of the coronary arteries. There is diminished attenuation of the ca rdiac blood pool as compared to the myocardium suggesting anemia There are small pleural effusions wi th dependent consolidation. Gynecomastia is noted. Liver: Evaluation of liver is degraded by streak artifact. The unenhanced liver is enlarged, measurin g 23 cm in length. The liver is otherwise normal in contour and attenuation. There is no intrahepatic biliary ductal dilatation. Gallbladder: Unremarkable. Spleen: Normal in size and attenuation. Pancreas: The unenhanced pancreas is mildly atrophic and grossly unremarkable. Adrenal glands: Unremarkable. Kidneys: The unenhanced kidneys demonstrate cortical atrophy and are without hydronephrosis. There is a punctate nonobstructing left renal calculus. No right renal calculi are identified. There is no ev idence of contour deforming renal mass lesion. Abdominal vasculature: The abdominal aorta is normal in course and caliber noting mild but age advanc ed atherosclerotic calcification. Bowel: Residual enteric contrast is noted in the colon. No bowel obstruction is seen. There is mild c olonic fecal retention. The small bowel loops are mildly distended and fluid-filled. No wall thickeni ng or surrounding inflammation is identified. The appendix is not visualized. Peritoneum: A catheter is coiled in the pelvis from a mid pelvic approach. There is a small volume of free fluid in the abdomen and pelvis. No intraperitoneal free air is identified. There is a fat-cont aining umbilical hernia. Lymphadenopathy: None. Pelvic viscera: The bladder appears circumferentially thick walled. The prostate and seminal vesicles are normal as visualized. Skeletal structures: The skeletal structures are osteopenic. No lytic or blastic lesions are seen. IMPRESSION: 1. A catheter in the pelvis is new from previous. Clinical correlation will be required. 2. There is a small volume of abdominopelvic ascites, which is nonspecific and may be related to romero toneal dialysis. Again, clinical correlation will be required. 3. The bladder wall is circumferentially thickened. Correlate clinically and with urinalysis for evid ence of cystitis. 4. The small bowel loops are mildly distended and filled with fluid. No bowel obstruction is seen. Co rrelate clinically for evidence of a nonspecific gastroenteritis. 5. Small pleural effusions with bibasilar consolidation. This likely represents atelectasis. Correlat e clinically for evidence of superimposed pneumonia. 6. Hepatomegaly. 7. Nonobstructing left renal calculus. 8. Additional findings as above. ACT 112: Negative or not required by law. Electronically signed by: Alvarez Juan M.D. 10/08/2019 6:28 PM
[2019-10-08] MEDS ORDERED: INSULIN GLARGINE SOLOSTAR 100 UNITS/ML 3 ML PEN SC SCH (21:00)
--- NOTE | 2019-10-08 21:01 | Hospitalist Progress Note ---
Date of Service October 08, 2019 Assessment & Plan (1) End-stage renal disease (ESRD): Worsening renal function despite peritoneal dialysis. Hemodialysis initiated. Ongoing management per Nephrology. 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 Severe hypoglycemia (30) at home. Patient attributes hypoglycemic episode at home to missed meal. Hemoglobin A1c 8.3. Blood sugars fluctuating due to acute illness and variable PO intake. Pharmacy consulted for glycemic management. FBS this morning = 256. (3) Hypertension: Continue carvedilol, amlodipine, doxazosin. (4) Fever: Spiked fever evening of 10/05. Chest x-ray showed ?? infiltrate left base, but no cough and lungs clear. Patient reports occasional voiding with chronic dysuria. Possible UTI as discussed below. Developed erythema and tenderness left antecubital fossa at IV site. Suspected suppurative phlebitis with bacteremia as discussed below. (5) Bacteremia due to Staphylococcus aureus: Developed erythema and tenderness left antecubital fossa at IV site. Blood cultures obtained and empiric IV antibiotic therapy with vancomycin and cefepime initiated. 2 of 2 blood cultures from 10/05 grew gram-positive cocci. PCR's-staph aureus, not MRSA. Antibiotic therapy de-escalated with discontinuation of cefepime. IV vancomycin continued. Final report from blood cultures - MSSA. Beta lactams probably ideal drugs of choice for MSSA, but vancomycin may be more pragmatic with hemodialysis. Discussed with Nephrology and Pharmacy. Cefazolin has advantage of q 24 hr dosing compared to nafcillin q 4 hours. Checking repeat blood cultures to confirm clearance of bacteremia. Check echo. Consult ID for further recommendations. (6) Urinary tract infection: Patient reports occasional voiding with chronic dysuria. UA day of admission showed + leukocytosis, WBC's, bacteria, many epithelial cells; urine culture not obtained at that time. Repeat UA 10/05 showed similar findings. Urine culture growing coag neg Staph. Not certain whether or not bacteruria represents UTI or colonization. Received vancomycin. Check CT to rule out urinary tract obstruction. (7) Nausea & vomiting: Intermittent nausea and vomiting. Probably has gastroparesis (although could not find any gastric emptying scans). Anti-emetics PRN (no ondansetron or other QT-prolonging meds like promethazine). Further evaluation if symptoms persist / worsen. (8) GI bleedin episodes of loose dark stools 10/07. No abdominal pain. Has had several episodes of emesis without les blood or coffee grounds. Hemodynamically stable. Hold clopidogrel (prescribed for TIA). Type and screen pRBC's. Received IV pantoprazole. No further melena. Hgb 10.9 --> 9.2 --> 9.7. Consult GI. (9) Acute blood loss anemia: Baseline Hgb 10 - 10.5. Now with GI bleeding. Hgb as low as 9.2. Acute blood loss anemia due to GI bleeding. No transfusion necessary at this time. Follow H/H. (10) Anemia in ESRD (end-stage renal disease): Anemia of chronic kidney disease. Baseline hemoglobin 10 - 10.5. Now with acute blood loss anemia due to GI bleeding as discussed below. Follow. (11) Fall: Suspected fall, but patient not 100% certain whether he fell or not. Fall possibly secondary to hypoglycemia. PT/OT. (12) Pain of left upper extremity: Suspected infected IV site left antecubital fossa. Swelling of left forearm 10/07. Venous duplex LUE - superficial phlebitis. Soft tissue US - soft tissue edema, no abscess. (13) DVT prophylaxis: Anticoagulants not utilized due to possible head injury. SCDs ordered. Ambulate. (14) Discharge planning issues: Anticipated discharge to home. Family Medicine follow-up with Dr. Coffey. Diabetes management per [facility]. Admission and Anticipated Discharge Date Admission Date: October 03, 2019 Subjective Recheck for multiple problems. Patient seen in their room around 1530. Still febrile. Ongoing pain LUE. Nausea, but no emesis today. No loose dark stools since yesterday morning. Review of Systems: Constitutional- as noted above. Cardiac- no chest pain. Pulmonary- no cough. GI- as noted above. - oliguric. Otherwise, as noted above. Physical Exam Constitutional: no acute distress Respiratory: no respiratory distress Auscultation: lungs clear to auscultation bilaterally Cardiovascular: Rate/Rhythm: regular rate and regular rhythm Vessels: no JVD Extremities: no calf tenderness and no edema Gastrointestinal (Abdomen): normal bowel sounds, soft, nontender, no hepatosplenomegaly Musculoskeletal: Extremities: + extremities abnormal to inspection (swelling L forearm (improved); erythema L antecubital fossa (improved)) and no cyanosis Skin: no rashes, warm and dry Psychiatric: Orientation: alert and oriented x 3 Results & Data ([facility]) Vital Signs (Past 12 Hours) Vital Signs Temp Pulse Pulse Resp BP BP Pulse Ox 10/08/19 19:03 37.7 C H 73 18 134/71 90 10/08/19 15:31 73 10/08/19 14:58 37.8 C H 72 20 137/67 90 10/08/19 11:31 37.9 C H 73 20 143/85 H 95 Laboratory Results 10/08/19 05:41 10/08/19 05:41 Microbiology 10/05/19 20:15 Urine,Clean Catch Urine Culture - Final Coag negative Staphylococcus 10/07/19 07:49 Blood Aerobic Blood Culture - Preliminary No growth in Aerobic bottle after 24 hours. 10/07/19 07:49 Blood Anaerobic Blood Culture - Preliminary No growth in Anaerobic bottle after 24 hours. 10/05/19 17:58 Blood Aerobic Blood Culture - Preliminary Staphylococcus aureus 10/05/19 17:58 Blood Anaerobic Blood Culture - Preliminary Staphylococcus aureus 10/05/19 18:01 Blood Aerobic Blood Culture - Preliminary Staphylococcus aureus 10/05/19 18:01 Blood Anaerobic Blood Culture - Preliminary Staphylococcus aureus (1) Fall Encounter type: initial encounter Qualified Code(s): W19.XXXA - Unspecified fall, initial encounter
[2019-10-08] MEDS: PANTOprazole 40 MG in SYRINGE 0 ML IV SCH (21:06)
[2019-10-08] MEDS: CEFAZOLIN 1000MG 1,000 MG/7.5 ML SYR IV SCH (21:06)
[2019-10-08] MEDS: DOXAZosin MESYLATE TAB 2 MG TAB PO SCH (21:08)
[2019-10-08] MEDS: TRAZODONE HCL 50 MG TAB PO SCH (21:10)
[2019-10-08] MEDS: ROPINIROLE HCL 0.25 MG TABLET PO SCH (21:10)
[2019-10-08] MEDS: ATORVASTATIN 40 MG TAB PO SCH (21:10)
[2019-10-08] MEDS: LORazepam 1 MG TAB PO PRN (21:45)
[2019-10-09] MEDS: ACETAMINOPHEN 325 MG TAB PO PRN (01:20)
[2019-10-09] MEDS ORDERED: XOPENEX/ATROVENT 1.25mg/0.5MG NEB COMBO NEB STA (04:37)
[2019-10-09] MEDS ORDERED: IPRATROPIUM BROMIDE NEB SOLN 0.02% 2.5 ML VIAL INH STA (04:38)
[2019-10-09] MEDS ORDERED: LEVALBUTEROL 1.25MG/0.5ML NEB INH STA (04:38)
[2019-10-09] MEDS ORDERED: FUROSEMIDE 120 MG in SYRINGE 0 ML IV ONE (05:15)
--- NOTE | 2019-10-09 05:58 | XRay Report ---
XR chest 1V portable CLINICAL HISTORY: low o2 dyspnea COMPARISON STUDY: 10/05/2019 FINDINGS: Mild increase in cardiac size. Moderate increase in prominence of the pulmonary vasculature . Diaphragms are smooth. IMPRESSION: Findings consistent with developing pulmonary vascular congestion possibly with a superi mposed right basilar infiltrate. ACT 112: Negative or not required by law. The above report was generated using voice recognition software. It may contain grammatical, syntax or spelling errors. Electronically signed by: Slick Howell M.D. 10/09/2019 5:57 AM
[2019-10-09 06:32] LABS: Basophils # (auto) 0.03 K/uL (0-0.2); Basophils % (auto) 0.4 %; Eosinophils # (auto) 0.04 K/uL (0-0.5); Eosinophils % (auto) 0.5 %; Hematocrit (blood only) 27.1 % (42-52); Hemoglobin 8.9 g/dL (14.0-18.0); Immature Granulocytes # (auto) 0.02 K/uL (0.00-0.02); Immature Granulocytes % (auto) 0.2 %; Lymphocytes # (auto) 1.24 K/uL (1.2-3.4); Mean Corpuscular Hemoglobin 29.7 pg (25-34); Mean Corpuscular Hgb Conc 32.8 g/dL (32-36); Mean Corpuscular Volume 90.3 fL (80-100); Mean Platelet Volume 11.4 fL (7.4-10.4); Monocytes # (auto) 1.26 K/uL (0.11-0.59); Monocytes % (auto) 15.3 %; Neutrophils # (auto) 5.65 K/uL (1.4-6.5); Neutrophils % (auto) 68.6 %; Platelet Count 163 K/uL (130-400); RDW Coefficient of Variation 13.7 % (11.5-14.5); RDW Standard Deviation 45.7 fL (36.4-46.3); White Blood Count 8.24 K/uL (4.8-10.8)
[2019-10-09] MEDS ORDERED: EPOETIN ALFA 10,000 UNITS/ML VIAL IV ONE (07:00)
[2019-10-09] MEDS ORDERED: SODIUM CHLORIDE 0.9% 1000ML 1,000 ML IV PRN (07:00)
[2019-10-09 07:15] LABS: BUN Creatinine Ratio 5.3 (10-20); Calcium 8.8 mg/dl (8.5-10.1); Creatinine Clr Calc Pharmacy 9.1 ml/min; Est GFR (African American) 5.8; Magnesium 2.6 mg/dl (1.8-2.4); Potassium 4.3 mmol/L (3.5-5.1)
[2019-10-09] MEDS ORDERED: INSULIN GLARGINE SOLOSTAR 100 UNITS/ML 3 ML PEN SC ONE (08:00)
[2019-10-09] MEDS: CALCIUM ACETATE 667 MG CAP PO SCH ×3 (08:10→17:28)
[2019-10-09] MEDS: VELPHORO PO SCH ×3 (08:10→16:41)
[2019-10-09] MEDS: CHOLECALCIFEROL 1,000 UNITS 25 MCG TAB PO SCH (08:11)
[2019-10-09] MEDS: CALCIUM CARBONATE 500 MG CHEWABLE TAB PO SCH ×2 (08:11→16:41)
[2019-10-09] MEDS: PANTOprazole 40 MG in SYRINGE 0 ML IV SCH ×2 (08:12→20:53)
[2019-10-09] MEDS: INSULIN ASPART 100 UNITS/ML 3 ML PEN SC SCH ×4 (08:13→21:13)
--- NOTE | 2019-10-09 09:15 | Infectious Disease Consult ---
Date of Consultation October 09, 2019 Assessment & Plan (1) Gram positive sepsis: continue abx, renal dosing, pt states he will remain on HD for now. would give min 6 weeks IV abx. suspect clot is source of infection. follow repeat cultures, echo results. (2) Thrombophlebitis arm: History of Present Illness Attending Physician: Bam Galvez MD pt admitted after falls, low blood sugar. h/o type 1 DM, on HD converted to PD recently, AV fistula placed 1 year ago. Creat elevated, now converted back to HD. tolerating well. Admitted on 10/03, on 10/05 began having high fevers -39.4, blood cultures obtained, growing MSSA. Continued with high grade persistent fevers, now starting to improve. was initally on vanco now of anc, tolerating well. repeat cultures 10/07 negative to date. had IV in right AC fossa initially, had pain, IV removed and replaced in RUE, still with significant pain, ultrasound done, superficial clot noted in AC fossa. echo done this am, pending. denies cp, sob, cough, no abd pain, no n/v/d. ct abd with no acute infection, no peritonitis noted. Allergies Allergy/AdvReac Type Severity Reaction Status Date / Time No Known Allergies Allergy Verified 06/25/19 10:11 Home Medications Home Medications Medication Instructions Recorded Confirmed Type atorvastatin 40 mg PO HS 09/28/18 10/03/19 History calcium acetate(phosphat bind) 2,668 mg PO TIDM 09/28/18 10/03/19 History cholecalciferol (vitamin D3) 5,000 units PO QAM 09/28/18 10/03/19 History [Vitamin D3] clopidogrel 75 mg PO QAM 09/28/18 10/03/19 History doxazosin 2 mg PO HS 12/20/18 10/03/19 History insulin aspart U-100 [Novolog 1 sliding scale dose SUBCUT AC 12/20/18 10/03/19 H istory U-100 Insulin aspart] carvedilol 25 mg PO QAM 06/25/19 10/03/19 History carvedilol 37.5 mg PO HS 06/25/19 10/03/19 History amlodipine 10 mg PO DAILY 10/03/19 10/03/19 History calcium carbonate [Tums Ultra] 1,600 mg PO BID 10/03/19 10/03/19 History gentamicin 1 applic TOPICAL DAILY 10/03/19 10/03/19 History insulin glargine [Lantus Solostar 15 unit SUBCUT PM 10/03/19 10/03/19 History U-100 Insulin] ropinirole 0.25 mg PO HS 10/03/19 10/03/19 History sucroferric oxyhydroxide [Velphoro] 500 mg PO TIDM 10/03/19 10/03/19 History trazodone 50 mg PO DAILY 10/03/19 10/03/19 History Patient History Medical History Anemia in ESRD (end-stage renal disease) (Chronic) Charcot foot due to diabetes mellitus (Chronic) 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) Diabetic nephropathy (Chronic) Diabetic neuropathy (Chronic) Diabetic retinopathy (Chronic) End-stage renal disease (ESRD) (Chronic) ESRD (end stage renal disease) (Chronic) Fatty liver (Chronic) Hypertension (Chronic) Migraines (Chronic) Nephrotic syndrome due to diabetes mellitus (Chronic) Pericardial effusion without cardiac tamponade (Chronic) Prolonged QT interval (Chronic) TIA (transient ischemic attack) (Chronic) Surgical History S/P eye surgery (Chronic) Family History Mother Hypertension Grandfather (Maternal) Diabetes Grandmother (Maternal) Diabetes Grandmother (Paternal) Diabetes Social History Preferred Language: Jordanian Communication Ability: Effective Visual Impairment: Limited Freight Adjuster Required: No Beliefs That Will Affect Care: None marital status: Single Current Living Situation: Alone current occupational status: employed Other Information That Helps Us Care for You: No Feels Safe at Home: Yes Safety Concerns: Feels Safe At This Time Smoking Status: Former smoker Do You Dip or Chew Tobacco: No ; Second Hand Exposure: No ; Tobacco Cessation Education Requested by Patient: No Hx Alcohol Use: No Hx Substance Use: No Review of Systems Review of Systems: All systems reviewed & are unremarkable except as noted in HPI & below Physical Exam Constitutional: WD/WN, vitals as above Eyes: PERRL, conjunctivae normal, anicteric sclerae ENMT: external ear and nose normal, oropharynx normal Neck: normal visual inspection Respiratory: normal respiratory effort, lungs clear to auscultation Cardiovascular: RRR, no murmur, no edema Gastrointestinal (Abdomen): normal bowel sounds, soft, nontender, no hepatosplenomegaly Musculoskeletal: no cyanosis or clubbing, extremities motor strength 5/5 Skin: no rashes, warm and dry Psychiatric: A+Ox3, euthymic affect Results & Data ([facility]) Vital Signs (Past 12 Hours) Vital Signs Temp Pulse Pulse Resp BP Pulse Ox 10/09/19 07:12 72 10/09/19 05:37 73 16 90 10/09/19 03:56 37.6 C H 77 19 154/73 H 89 L 10/09/19 01:17 78 10/08/19 23:19 38.2 C H 78 19 150/66 H 97 10/08/19 21:26 79 154/69 H Laboratory Results Microbiology 10/07/19 07:49 Blood Aerobic Blood Culture - Preliminary No growth in Aerobic bottle after 48 hours. 10/07/19 07:49 Blood Anaerobic Blood Culture - Preliminary No growth in Anaerobic bottle after 48 hours. 10/08/19 05:41 Blood Aerobic Blood Culture - Preliminary No growth in Aerobic bottle after 24 hours. 10/08/19 05:41 Blood Anaerobic Blood Culture - Preliminary No growth in Anaerobic bottle after 24 hours. 10/05/19 20:15 Urine,Clean Catch Urine Culture - Final Coag negative Staphylococcus 10/05/19 17:58 Blood Aerobic Blood Culture - Preliminary Staphylococcus aureus 10/05/19 17:58 Blood Anaerobic Blood Culture - Preliminary Staphylococcus aureus 10/05/19 18:01 Blood Aerobic Blood Culture - Preliminary Staphylococcus aureus 10/05/19 18:01 Blood Anaerobic Blood Culture - Preliminary Staphylococcus aureus PG Care Time/CCT Total # of Minutes Spent Total Time Spent with Patient: Total time spent is greater than 50% in coordination of care (as documented) at patient's floor/unit and/or counseling patient: Coding Level of Care Code 23879 Inpt Consult Level 4 Diagnoses Gram positive sepsis A41.89 Thrombophlebitis arm I80.8
--- NOTE | 2019-10-09 11:07 | Dialysis Progress Note ---
Date of Service October 09, 2019 Assessment & Plan (1) Dialysis patient, noncompliant: ESRD on PD but currently on HD and likely for HD at d/c. No concerns for peritonitis; many concerns however that he is simply not doing txs prior to admission. Marked worsening of OP labs past 2 months. He has functional AV fistula -patient had HD on 10/06/2019; for HD today goal 2-2.5L as tolerated uf -renal nurses to flush PD catheter and change dressing weekly > will do so today -will hope to switch back to PD after IV abtx completed if these are to be given w/ HD and if pt agrees to home health visits at least 2x weekly to start--may need to evaluate after d/c -will cut back FR to 1.5L daily given XR findings (2) Anemia in ESRD (end-stage renal disease): t stn 29% this month TERRI as indicated w/ HD monitor hgb daily w/ heme + stool; on protonix; has been fairly stable (3) Labile essential hypertension: Blood pressure is elevated >> for HD today; cont current meds (4) Bacteremia: Due to MSSA attributed to suppurative phlebitis at L AC IV site; also w/ CoNS in urine. getting vanco per primary team but nafcillin while in house may be more suitable. -still spiking temps or near -F >> ordered PVR check bid for now; no reflux/retention on imaging -inf dzs c/s pending -If discharged vanco can be administered at dialysis unit but will need to be supplied by pt/ by specialty pharmacy. (5) Fever: w/ bacteremia on abtx and ongoing F; see above Subjective seen on dialysis at about 1010; no sob; states was not sob earlier in am when noted to be hypoxic. denies uncontrolled musculoskeletal pain or n/v; denies voiding concerns Review of Systems Review of Systems: All systems reviewed & are unremarkable except as noted in HPI & below Physical Exam Constitutional: well developed, well nourished and + ill appearing; no acute distress on RA Eyes: EOM intact bilaterally ENMT: Ears: no external ear abnormality Nose: no external nose abnormality Mouth: + dry oral mucous membranes Neck: no nuchal rigidity Respiratory: normal respiratory effort; no respiratory distress and no labored breathing Auscultation: lungs clear to auscultation bilaterally and + dimini shed lung sounds Cardiovascular: Rate/Rhythm: regular rate and regular rhythm Extremities: + edema (1-2 + BLE) and + AV fistula (+ t/b) Gastrointestinal (Abdomen): Inspection/Auscultation: normal bowel sounds Percussion/Palpation: abdomen soft; abdomen nontender Musculoskeletal: Extremities: strength 5/5 throughout Skin: no rashes, warm and dry + lesion (L forearm not examined today) Trauma: + contusion (R brow; further resolving) Psychiatric: Orientation: alert and oriented x 3 Speech: normal rate/rhythm/volume of speech (some hoarseness) Affect: + flat affect Insight: + impaired insight Judgement: + impaired judgement Results & Data Vital Signs (Past 12 Hours) Vital Signs Temp Pulse Pulse Pulse Pulse Resp BP 10/09/19 10:30 69 157/69 H 10/09/19 10:00 66 138/56 L 10/09/19 09:38 68 145/70 H 10/09/19 09:26 68 134/62 10/09/19 09:19 37.6 C H 74 73 67 10/09/19 07:12 72 10/09/19 05:37 73 16 10/09/19 03:56 37.6 C H 77 19 10/09/19 01:17 78 10/08/19 23:19 38.2 C H 78 19 BP Pulse Ox 10/09/19 10:30 10/09/19 10:00 10/09/19 09:38 10/09/19 09:26 10/09/19 09:19 10/09/19 07:12 10/09/19 05:37 90 10/09/19 03:56 154/73 H 89 L 10/09/19 01:17 10/08/19 23:19 150/66 H 97 Laboratory Results 10/09/19 06:02 10/09/19 06:02 Diagnostic Findings cxr IMPRESSION: Findings consistent with developing pulmonary vascular congestion possibly with a superimposed right basilar infiltrate ct abd/pelvis > cystitis; no reflux
--- NOTE | 2019-10-09 11:56 | Gastrointestinal Consultation ---
Date of Consultation October 09, 2019 Assessment & Plan (1) Black stool: Pt is a 34 y/o male with PMHx T1DM, HTN, TIA on Plavix, admitted with hypoglycemia, found to have staph bacteremia, worsening renal fxn and was switched from PD --> HD, who GI was consulted for GI bleeding along with ongoing nausea, vomiting. He had 2 black stools 2 days ago; has had no subsequent GI output. HGB slightly down from baseline (8.9 down from 10). Plavix was held and he was started on PPI gtt. He reports n/v is stable at the moment; tolerated regular breakfast today. Diff dx black stools = episode of UGIB; lack of ongoing symptoms suggests bleeding is not ongoing and also suggests against C. diff. Diff dx nausea/vomiting = PUD/gastritis/esophagitis/AVM, vs gastroparesis given DM, vs medication related vs other. Lack of elevated LFTs, bilirubin, and biliary dilation on CT would make biliary source less likely. Currently is hemodynamically stable. - Would benefit from EGD to eval his n/v in addition to episode of melena - As he ate breakfast this AM and is getting dialysis today, will review timing of endoscopy - Trend H&H, transfuse PRN - Continue supportive care for ongoing issues including ESRD and staph bacteremia - Would benefit from GES as an outpt in the event initial GI w/u is unrevealing Thank you for allowing us to participate in the care of this patient. Please call with any acute changes, questions or concerns. Please see addendum below with additional recommendation from my supervising physician. (2) Nausea & vomiting: Supervising Physician Co-Signing Physician Notes I saw and evaluated the patient. We are consulted for question of melena earlier today. The patient is on hemodialysis presently and has a history of peritoneal dialysis. He has noted nausea over the past few months. He denies having difficulty with swallowing or pain with swallowing Physical examination No obvious distress No abdominal distention noted Impression: Patient with a question of dark stool prior to admission upper endoscopy has been requested by the hospital service to evaluate for evidence of peptic ulcer disease. Recommendations Upper endoscopy tomorrow, patient was eating a regular meal today Protonix 40 grams twice daily IV Please call with any questions or concerns History of Present Illness Reason for Consultation: GI bleed, nausea vomiting Attending Physician: Bam Galvez MD History of Present Illness Pt is a 34 y/o male with PMHx T1DM (A1C 8-11%), HTN, ESRD currently on HD, h/o TIA, retinopathy, anemia of chronic disease, who was admitted 10/03/19 after presenting with falls and hypoglycemia; subsequently found to have superficial clot in the right arm and + sepsis with staph bacteremia (from suppurative phlebitis and also from UC); now on ABX. There was concern he was non compliant with peritoneal dialysis as his labs have worsened of late and he was started on hemodialysis. GI consulted today for GI bleed, intermittent nausea, vomiting. Pt interviewed while undergoing dialysis today. He reports 2 dark black tarry stools on 10/07; has had no GI output since. He was started on IV PPI. Baseline HGB is 10; today is 8.9. Plavix has been held. CTAP 10/08/19 with no IHDD, small bowel loops that were mildly distended bowel and filled with fluid; no obstruction. He had some emesis this admission which was non-bloody. Has reported some intermittent bouts of nausea, vomiting over the last year. Tends toward constipation; has a few BMS a week; solid, brown. Has not had EGD or GES to evaluate his GI symptoms. Labs from 10/03/19 demonstrated normal LFTs, bilirubin. Currently denies nausea, vomiting; ate a full breakfast this AM; denies ongoing abd bloating; no heartburn, dysphagia, abd cramping, diarrhea Pt reports no h/o PUD, GIB. He thought he had an EGD 3 years ago at [facility] but I was unable to find such as result in [facility] records. Denies NSAID, ETOH, tobacco use. Allergies Allergy/AdvReac Type Severity Reaction Status Date / Time No Known Allergies Allergy Verified 06/25/19 10:11 Home Medications Home Medications Medication Instructions Recorded Confirmed Type atorvastatin 40 mg PO HS 09/28/18 10/03/19 History calcium acetate(phosphat bind) 2,668 mg PO TIDM 09/28/18 10/03/19 History cholecalciferol (vitamin D3) 5,000 units PO QAM 09/28/18 10/03/19 History [Vitamin D3] clopidogrel 75 mg PO QAM 09/28/18 10/03/19 History doxazosin 2 mg PO HS 12/20/18 10/03/19 History insulin aspart U-100 [Novolog 1 sliding scale dose SUBCUT AC 12/20/18 10/03/19 History U-100 Insulin aspart] carvedilol 25 mg PO QAM 06/25/19 10/03/19 History carvedilol 37.5 mg PO HS 06/25/19 10/03/19 History amlodipine 10 mg PO DAILY 10/03/19 10/03/19 History calcium carbonate [Tums Ultra] 1,600 mg PO BID 10/03/19 10/03/19 History gentamicin 1 applic TOPICAL DAILY 10/03/19 10/03/19 History insulin glargine [Lantus Solostar 15 unit SUBCUT PM 10/03/19 10/03/19 History U-100 Insulin] ropinirole 0.25 mg PO HS 10/03/19 10/03/19 History sucroferric oxyhydroxide [Velphoro] 500 mg PO TIDM 10/03/19 10/03/19 History trazodone 50 mg PO DAILY 10/03/19 10/03/19 History Patient History Medical History Anemia in ESRD (end-stage renal disease) (Chronic) Charcot foot due to diabetes mellitus (Chronic) 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) Diabetic nephropathy (Chronic) Diabetic neuropathy (Chronic) Diabetic retinopathy (Chronic) End-stage renal disease (ESRD) (Chronic) ESRD (end stage renal disease) (Chronic) Fatty liver (Chronic) Hypertension (Chronic) Migraines (Chronic) Nephrotic syndrome due to diabetes mellitus (Chronic) Pericardial effusion without cardiac tamponade (Chronic) Prolonged QT interval (Chronic) TIA (transient ischemic attack) (Chronic) Surgical History S/P eye surgery (Chronic) Family History Mother Hypertension Grandfather (Maternal) Diabetes Grandmother (Maternal) Diabetes Grandmother (Paternal) Diabetes Social History Preferred Language: [place] Communication Ability: Effective Visual Impairment: Limited Harness And Bag Inspector Required: No Beliefs That Will Affect Care: None marital status: Single Current Living Situation: Alone current occupational status: employed Other Information That Helps Us Care for You: No Feels Safe at Home: Yes Safety Concerns: Feels Safe At This Time Smoking Status: Former smoker Do You Dip or Chew Tobacco: No ; Second Hand Exposure: No ; Tobacco Cessation Education Requested by Patient: No Hx Alcohol Use: No Hx Substance Use: No Review of Systems Constitutional: as per Subjective / HPI Respiratory: no cough and no dyspnea Cardiovascular: no chest pain, no dyspnea and no edema Gastrointestinal: as per Subjective / HPI Genitourinary: + as per Subjective / HPI Integumentary: no rash Endocrine: as per Subjective / HPI Hematologic / Lymphatic: no easy bleeding and no easy bruising Allergy / Immunological: no GI upset with certain foods Physical Exam Constitutional: no acute distress + chronically ill Eyes: sclera anicteric Respiratory: normal respiratory effort, lungs clear to auscultation Cardiovascular: Rate/Rhythm: regular rate and regular rhythm Gastrointestinal (Abdomen): normal bowel sounds, soft, nontender, no hepatosplenomegaly Inspection/Auscultation: abdomen not distended Skin: no rashes, warm and dry Psychiatric: A+Ox3, euthymic affect Results & Data ([facility]) Vital Signs (Past 12 Hours) Vital Signs Temp Pulse Pulse Resp BP Pulse Ox 10/09/19 07:12 72 10/09/19 05:37 73 16 90 10/09/19 03:56 37.6 C H 77 19 154/73 H 89 L 10/09/19 01:17 78 10/08/19 23:19 38.2 C H 78 19 150/66 H 97 10/08/19 21:26 79 154/69 H Laboratory Results 10/09/19 10/09/19 10/09/19 Range/Units 08:16 06:02 06:02 WBC 8.24 (4.8-10.8) K/uL RBC 3.00 L (4.7-6.1) M/uL Hgb 8.9 L (14.0-18.0) g/dL Hct 27.1 L (42-52) % MCV 90.3 (80-100) fL MCH 29.7 (25-34) pg MCHC 32.8 (32-36) g/dL RDW Std Deviation 45.7 (36.4-46.3) fL RDW Coeff of Ralph 13.7 (11.5-14.5) % Plt Count 163 (130-400) K/uL MPV 11.4 H (7.4-10.4) fL Immature Gran % (Auto) 0.2 % Neut % (Auto) 68.6 % Lymph % (Auto) 15.0 % Bond % (Auto) 15.3 % Eos % (Auto) 0.5 % Baso % (Auto) 0.4 % Immature Gran # (Auto) 0.02 (0.00-0.02) K/uL Neut # (Auto) 5.65 (1.4-6.5) K/uL Lymph # (Auto) 1.24 (1.2-3.4) K/uL Bond # (Auto) 1.26 H (0.11-0.59) K/uL Eos # (Auto) 0.04 (0-0.5) K/uL Baso # (Auto) 0.03 (0-0.2) K/uL Sodium 127 L (136-145) mmol/L Potassium 4.3 (3.5-5.1) mmol/L Chloride 91 L (98-107) mmol/L Carbon Dioxide 24 (21-32) mmol/L Anion Gap 12.0 H (3-11) BUN 62 H (7-18) mg/dl Creatinine 11.70 H* D (0.6-1.4) mg/dl Est Cr Clr Drug Dosing 9.1 ml/min Est GFR ( Amer) 5.8 Est GFR (Non-Af Amer) 5.0 BUN/Creatinine Ratio 5.3 L (10-20) Glucose 253 H (70-99) mg/dl POC Glucose 276 H (70-99) mg/dl Calcium 8.8 (8.5-10.1) mg/dl Magnesium 2.6 H (1.8-2.4) mg/dl 10/08/19 10/08/19 Range/Units 20:15 16:49 WBC (4.8-10.8) K/uL RBC (4.7-6.1) M/uL Hgb (14.0-18.0) g/dL Hct (42-52) % MCV (80-100) fL MCH (25-34) pg MCHC (32-36) g/dL RDW Std Deviation (36.4-46.3) fL RDW Coeff of Ralph (11.5-14.5) % Plt Count (130-400) K/uL MPV (7.4-10.4) fL Immature Gran % (Auto) % Neut % (Auto) % Lymph % (Auto) % Bond % (Auto) % Eos % (Auto) % Baso % (Auto) % Immature Gran # (Auto) (0.00-0.02) K/uL Neut # (Auto) (1.4-6.5) K/uL Lymph # (Auto) (1.2-3.4) K/uL Bond # (Auto) (0.11-0.59) K/uL Eos # (Auto) (0-0.5) K/uL Baso # (Auto) (0-0.2) K/uL Sodium (136-145) mmol/L Potassium (3.5-5.1) mmol/L Chloride (98-107) mmol/L Carbon Dioxide (21-32) mmol/L Anion Gap (3-11) BUN (7-18) mg/dl Creatinine (0.6-1.4) mg/dl Est Cr Clr Drug Dosing ml/min Est GFR ( Amer) Est GFR (Non-Af Amer) BUN/Creatinine Ratio (10-20) Glucose (70-99) mg/dl POC Glucose 211 H 139 H (70-99) mg/dl Calcium (8.5-10.1) mg/dl Magnesium (1.8-2.4) mg/dl
[2019-10-09] MEDS: AMLODIPINE BESYLATE 5 MG TAB PO SCH (14:05)
[2019-10-09] MEDS: carvediloL 25 MG TAB PO SCH ×2 (14:06→20:58)
--- NOTE | 2019-10-09 14:58 | Pharmacy Report ---
Pharmacy Glycemic Short Note 2 - Date of Service October 09, 2019 - Glycemic Short BSG Results (Last 24 hours): 10/08/19 10/08/19 10/09/19 16:49 20:15 06:02 Glucose 253 H POC Glucose 139 H 211 H 10/09/19 10/09/19 08:16 14:09 Glucose POC Glucose 276 H 170 H OUTPATIENT ANTIDIABETIC REGIMEN: * Lantus 15 units HS * Novolog SS * A1c = 8.3 % 10/04/19 ASSESSMENT: 10/09/19: * Fasting BSG remains significantly elevated this morning (276 mg/dL). This indicates that basal insulin is still quite inadequate. * BSGs throughout the day are reasonably well-controlled and corrected with current Novolog parameters. * Antibiotics have been switched from Vanc to Ancef and Protonix gtt is no longer infusing. 10/08/19 * Blood sugars looking much better for this patient over past 48 hours, no hypoglycemia, somewhat elevated fasting of 256mg/dl this morning. Patient did start IV Protonix drip yesterday for GI Bleed. Will increase Lantus slight to help cover that dextrose. * No HD today or yesterday, scheduled again for tomorrow. * No further changes needed in insulin regimen at this time. 10/06/19 * 34 year old male admitted with hyperglycemia, noncompliance with PD, started HD while inpatient, received 10/04 and scheduled again for this afternoon. Started IV antibiotics for fever and bacteremia, urine cultures pending. * Brittle type 1 diabetic dx at 13 years of age, with lows in 30's at home. Follows with Yvon at [facility] clinic in [place]. * Blood sugars trending high over past 24 hours, but patient also started having N/V, gastroparesis. * Patient had 7 units of novolog with breakfast to correct for blood sugar of 202mg/dl and cover 52 grams of CHO, but then vomited everything up after eating. Dr Galvez aware. Patient had Phenergan at 0500, trying lorazepam now, pt with QT prolongation. * May need to consider low rate of D5W IV fluids. * No changes in insulin doses at this time, will adjust goal range, will follow trends and adjust conservatively to minimize hyper and hypoglycemia. PLAN FOR INPATIENT GLYCEMIC CONTROL: * Basal insulin -increase * Lantus 15 units SQ HS * supplemental dose of Lantus 3 units this morning * Bolus insulin * NovoLog per scale ACHS or Q6hrs while NPO * Goal Range: Low 120 mg/dL - High 160 mg/dL - change to try to prevent hypoglycemia * Correction Factor: 30 mg/dL/unit * Nutritional / Prandial insulin per carb ratio of 1 unit per 7 grams CHO consumed
[2019-10-09] MEDS: HYDROmorphone INJ 0.5 MG/0.5 ML SYR IV PRN (19:34)
--- NOTE | 2019-10-09 20:38 | Hospitalist Progress Note ---
Date of Service October 09, 2019 Assessment & Plan (1) End-stage renal disease (ESRD): Worsening renal function despite peritoneal dialysis. Hemodialysis initiated. Ongoing management per Nephrology. 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 Severe hypoglycemia (30) at home. Patient attributes hypoglycemic episode at home to missed meal. Hemoglobin A1c 8.3. Blood sugars fluctuating due to acute illness and variable PO intake. Pharmacy consulted for glycemic management. FBS this morning = 276. (3) Hypertension: Continue carvedilol, amlodipine, doxazosin. (4) Fever: Spiked fever evening of 10/05. Chest x-ray showed ?? infiltrate left base, but no cough and lungs clear. Patient reports occasional voiding with chronic dysuria. Possible UTI as discussed below. Developed erythema and tenderness left antecubital fossa at IV site. Suspected suppurative phlebitis with bacteremia as discussed below. (5) Bacteremia due to Staphylococcus aureus: Developed erythema and tenderness left antecubital fossa at IV site. Blood cultures obtained and empiric IV antibiotic therapy with vancomycin and cefepime initiated. 2 of 2 blood cultures from 10/05 grew gram-positive cocci. PCR's-staph aureus, not MRSA. Antibiotic therapy de-escalated with discontinuation of cefepime; IV vancomycin continued. Final report from blood cultures - MSSA. Beta lactams probably ideal drugs of choice for MSSA, but vancomycin may be more pragmatic with hemodialysis. Discussed with Nephrology and Pharmacy. Cefazolin has advantage of q 24 hr dosing compared to nafcillin q 4 hours. Checking repeat blood cultures to confirm clearance of bacteremia- blood cultures from 10/07 and 10/08 negative so far. Echo - no apparent valvular vegetations. ID recommends minimum of 6 weeks of antibiotic therapy. (6) Urinary tract infection: Patient reports occasional voiding with chronic dysuria. UA day of admission showed + leukocytosis, WBC's, bacteria, many epithelial cells; urine culture not obtained at that time. Repeat UA 10/05 showed similar findings. Urine culture growing coag neg Staph. Not certain whether or not bacteruria represents UTI or colonization. Received vancomycin. CT abd & pelvis - circumferential thickening of bladder wall, nonobstructing left renal calculus, no urinary tract obstruction. (7) Nausea & vomiting: Intermittent nausea and vomiting. Probably has gastroparesis (although could not find any gastric emptying scans). Anti-emetics PRN (no ondansetron or other QT-prolonging meds like promethazine). Further evaluation if symptoms persist / worsen. (8) GI bleedin episodes of loose dark stools 10/07. No abdominal pain. Has had several episodes of emesis without les blood or coffee grounds. Hemodynamically stable. Hold clopidogrel (prescribed for TIA). Type and screen pRBC's. Received IV pantoprazole. No further melena. Hgb 10.9 --> 9.2 --> 9.7 --> 8.9. GI consulted; EGD anticipated 10/10. (9) Acute blood loss anemia: Baseline Hgb 10 - 10.5. Now with GI bleeding. Hgb as low as 8.7. Acute blood loss anemia due to GI bleeding. No transfusion necessary at this time. Follow H/H. (10) Anemia in ESRD (end-stage renal disease): Anemia of chronic kidney disease. Baseline hemoglobin 10 - 10.5. Now with acute blood loss anemia due to GI bleeding as discussed below. Follow. (11) Fall: Suspected fall, but patient not 100% certain whether he fell or not. Fall possibly secondary to hypoglycemia. PT/OT. (12) Pain of left upper extremity: Suspected infected IV site left antecubital fossa. Swelling of left forearm 10/07. Venous duplex LUE - superficial phlebitis. Soft tissue US - soft tissue edema, no abscess. (13) DVT prophylaxis: Anticoagulants not utilized due to possible head injury. SCDs ordered. Ambulate. (14) Discharge planning issues: Anticipated discharge to home. Family Medicine follow-up with Dr. Coffey. Diabetes management per [facility]. Admission and Anticipated Discharge Date Admission Date: October 03, 2019 Subjective Recheck for multiple problems. Patient seen in their room around 1640. Intermittent fevers. Ongoing pain LUE. Nausea, but no emesis today. No loose dark stools since 2 days ago. SOB during the night associated with fluid overload on CXR- improved with hemodialysis today. Review of Systems: Constitutional- as noted above. Cardiac- no chest pain. Pulmonary- rare cough. GI- as noted above. - oliguric. Otherwise, as noted above. Physical Exam Constitutional: no acute distress Respiratory: no respiratory distress Auscultation: lungs clear to auscultation bilaterally Cardiovascular: Rate/Rhythm: regular rate and regular rhythm Vessels: no JVD Extremities: no calf tenderness and no edema Gastrointestinal (Abdomen): normal bowel sounds, soft, nontender, no hepatosp lenomegaly Musculoskeletal: Extremities: + extremities abnormal to inspection (swelling L forearm (improved); erythema L antecubital fossa (improved)) and no cyanosis Skin: no rashes, warm and dry Psychiatric: Orientation: alert and oriented x 3 Results & Data ([facility]) Vital Signs (Past 12 Hours) Vital Signs Temp Pulse Pulse Pulse Pulse Resp BP 10/09/19 19:02 37.2 C 70 18 10/09/19 15:34 37 C 68 18 10/09/19 13:50 37.4 C 73 10/09/19 13:31 37.4 C 73 16 10/09/19 13:00 72 189/88 H 10/09/19 12:41 72 183/89 H 10/09/19 12:00 71 170/75 H 10/09/19 11:30 72 185/85 H 10/09/19 11:00 72 166/80 H 10/09/19 10:30 69 157/69 H 10/09/19 10:00 66 138/56 L 10/09/19 09:38 68 145/70 H 10/09/19 09:26 68 134/62 10/09/19 09:19 37.6 C H 74 73 67 BP Pulse Ox 10/09/19 19:02 155/99 H 95 10/09/19 15:34 148/76 H 95 10/09/19 13:50 194/91 H 10/09/19 13:31 10/09/19 13:00 10/09/19 12:41 10/09/19 12:00 10/09/19 11:30 10/09/19 11:00 10/09/19 10:30 10/09/19 10:00 10/09/19 09:38 10/09/19 09:26 10/09/19 09:19 Laboratory Results 10/09/19 06:02 10/09/19 06:02 Microbiology 10/07/19 07:49 Blood Aerobic Blood Culture - Preliminary No growth in Aerobic bottle after 48 hours. 10/07/19 07:49 Blood Anaerobic Blood Culture - Preliminary No growth in Anaerobic bottle after 48 hours. 10/08/19 05:41 Blood Aerobic Blood Culture - Preliminary No growth in Aerobic bottle after 24 hours. 10/08/19 05:41 Blood Anaerobic Blood Culture - Preliminary No growth in Anaerobic bottle after 24 hours. 10/05/19 20:15 Urine,Clean Catch Urine Culture - Final Coag negative Staphylococcus 10/05/19 17:58 Blood Aerobic Blood Culture - Preliminary Staphylococcus aureus 10/05/19 17:58 Blood Anaerobic Blood Culture - Preliminary Staphylococcus aureus 10/05/19 18:01 Blood Aerobic Blood Culture - Preliminary Staphylococcus aureus 10/05/19 18:01 Blood Anaerobic Blood Culture - Preliminary Staphylococcus aureus (1) Fall Encounter type: initial encounter Qualified Code(s): W19.XXXA - Unspecified fall, initial encounter
[2019-10-09] MEDS: CEFAZOLIN 1000MG 1,000 MG/7.5 ML SYR IV SCH (20:49)
[2019-10-09] MEDS: TRAZODONE HCL 50 MG TAB PO SCH (20:53)
[2019-10-09] MEDS: DOXAZosin MESYLATE TAB 2 MG TAB PO SCH (20:53)
[2019-10-09] MEDS: ROPINIROLE HCL 0.25 MG TABLET PO SCH (20:54)
[2019-10-09] MEDS: ATORVASTATIN 40 MG TAB PO SCH (20:57)
[2019-10-09] MEDS ORDERED: INSULIN GLARGINE SOLOSTAR 100 UNITS/ML 3 ML PEN SC SCH (21:00)
[2019-10-10 06:25] LABS: Hematocrit (blood only) 27.4 % (42-52); Hemoglobin 9.1 g/dL (14.0-18.0); Mean Corpuscular Hemoglobin 30.3 pg (25-34); Mean Corpuscular Hgb Conc 33.2 g/dL (32-36); Mean Corpuscular Volume 91.3 fL (80-100); Mean Platelet Volume 10.9 fL (7.4-10.4); Platelet Count 176 K/uL (130-400); RDW Coefficient of Variation 13.8 % (11.5-14.5); RDW Standard Deviation 45.8 fL (36.4-46.3); White Blood Count 5.82 K/uL (4.8-10.8)
[2019-10-10 07:08] LABS: BUN Creatinine Ratio 4.4 (10-20); Calcium 8.3 mg/dl (8.5-10.1); Creatinine Clr Calc Pharmacy 13.2 ml/min; Est GFR (African American) 9.1; Est GFR (Non-African American) 7.8; Potassium 3.5 mmol/L (3.5-5.1)
[2019-10-10] MEDS ORDERED: INSULIN GLARGINE SOLOSTAR 100 UNITS/ML 3 ML PEN SC ONE (07:30)
[2019-10-10] MEDS: INSULIN ASPART 100 UNITS/ML 3 ML PEN SC SCH ×4 (08:29→21:30)
[2019-10-10] MEDS: carvediloL 25 MG TAB PO SCH ×2 (08:31→20:39)
[2019-10-10] MEDS: VELPHORO PO SCH ×3 (08:31→16:38)
[2019-10-10] MEDS: CALCIUM ACETATE 667 MG CAP PO SCH ×3 (08:31→16:38)
[2019-10-10] MEDS: PANTOprazole 40 MG in SYRINGE 0 ML IV SCH ×2 (08:31→20:38)
[2019-10-10] MEDS: CALCIUM CARBONATE 500 MG CHEWABLE TAB PO SCH ×2 (08:32→16:38)
[2019-10-10] MEDS: CHOLECALCIFEROL 1,000 UNITS 25 MCG TAB PO SCH (08:34)
--- NOTE | 2019-10-10 09:35 | Gastroenterology Progress Note ---
Date of Service October 10, 2019 Assessment & Plan (1) Black stool: Pt is a 34 y/o male with PMHx T1DM, HTN, TIA on Plavix, admitted with hypoglycemia, found to have staph bacteremia, worsening renal fxn and was switched from PD --> HD, who GI was consulted for GI bleeding along with ongoing nausea, vomiting. He had 2 black stools 2 days ago; has had no subsequent GI output. HGB slightly down from baseline (8.9 down from 10). Plavix was held and he was started on PPI gtt. He reports n/v is stable at the moment; tolerated regular breakfast today. Diff dx black stools = episode of UGIB; lack of ongoing symptoms suggests bleeding is not ongoing and also suggests against C. diff. Diff dx nausea/vomiting = PUD/gastritis/esophagitis/AVM, vs gastroparesis given DM, vs medication related vs other. Lack of elevated LFTs, bilirubin, and biliary dilation on CT would make biliary source less likely. Currently is hemodynamically stable. - NPO for EGD - Continue IV PPI - Trend H&H, transfuse PRN - Continue supportive care for ongoing issues including ESRD and staph bacteremia Thank you for allowing us to participate in the care of this patient. Please call with any acute changes, questions or concerns. Please see addendum below with additional recommendation from my supervising physician. Admission and Anticipated Discharge Date Admission Date: October 03, 2019 Supervising Physician Co-Signing Physician Notes I saw and evaluated the patient. We are planning to do upper endoscopy today due to a question of dark stool several days ago. The patient is presently admitted due to complications related to his renal failure, presently on peritoneal dialysis as an outpatient. He was recently started on hemodialysis as an inpatient due to volume overload. Subjective Pt was seen and evaluated, chart reviewed NPO for EGD No further black stools Denies any rectal bleeding Denies any hematemesis or coffee ground emesis Review of Systems Constitutional: no fever, no chills and no fatigue Respiratory: no cough and no dyspnea Cardiovascular: no chest pain and no dyspnea on exertion Gastrointestinal: no abdominal pain, no blood in stools and no melena Physical Exam Constitutional: + ill appearing (chornically ill); no acute distress Neck: trachea midline Respiratory: normal respiratory effort Cardiovascular: Rate/Rhythm: regular rhythm Gastrointestinal (Abdomen): normal bowel sounds, soft, nontender, no hepatosplenomegaly Results & Data ([facility]) Vital Signs (Past 12 Hours) Vital Signs Temp Pulse Pulse Pulse Resp BP BP 10/10/19 07:27 36.8 C 67 18 164/73 H 10/10/19 04:34 37.0 C 64 18 160/77 H 10/09/19 23:50 70 10/09/19 23:21 37.2 C 69 18 166/84 H Pulse Ox 10/10/19 07:27 93 10/10/19 04:34 92 10/09/19 23:50 10/09/19 23:21 94
[2019-10-10] MEDS: AMLODIPINE BESYLATE 5 MG TAB PO SCH (09:46)
--- NOTE | 2019-10-10 11:36 | Infectious Disease Progress Nt ---
Date of Service October 10, 2019 Assessment & Plan (1) Gram positive sepsis: continue abx, renal dosing, pt states he will remain on HD for now. would give min 6 weeks IV abx. suspect clot is source of infection. follow repeat cultures, echo negative for veg. (2) Thrombophlebitis arm: Admission and Anticipated Discharge Date Admission Date: October 03, 2019 Subjective pt continues on ancef, tolerating well. afebrile overnight, echo negative, repeat blood cultures negative, tolerating HD. Results & Data ([facility] [place]) Vital Signs (Past 12 Hours) Vital Signs Temp Pulse Pulse Pulse Resp BP BP 10/10/19 11:17 37 C 67 16 157/75 H 10/10/19 11:07 67 10/10/19 07:27 36.8 C 67 18 164/73 H 10/10/19 04:34 37.0 C 64 18 160/77 H 10/09/19 23:50 70 Pulse Ox 10/10/19 11:17 93 10/10/19 11:07 10/10/19 07:27 93 10/10/19 04:34 92 10/09/19 23:50 Laboratory Results Microbiology 10/08/19 05:41 Blood Aerobic Blood Culture - Preliminary No growth in Aerobic bottle after 48 hours. 10/08/19 05:41 Blood Anaerobic Blood Culture - Preliminary No growth in Anaerobic bottle after 48 hours. 10/09/19 06:02 Blood Aerobic Blood Culture - Preliminary No growth in Aerobic bottle after 24 hours. 10/09/19 06:02 Blood Anaerobic Blood Culture - Preliminary No growth in Anaerobic bottle after 24 hours. 10/07/19 07:49 Blood Aerobic Blood Culture - Preliminary No growth in Aerobic bottle after 48 hours. 10/07/19 07:49 Blood Anaerobic Blood Culture - Preliminary No growth in Anaerobic bottle after 48 hours. 10/05/19 20:15 Urine,Clean Catch Urine Culture - Final Coag negative Staphylococcus 10/05/19 17:58 Blood Aerobic Blood Culture - Preliminary Staphylococcus aureus 10/05/19 17:58 Blood Anaerobic Blood Culture - Preliminary Staphylococcus aureus 10/05/19 18:01 Blood Aerobic Blood Culture - Preliminary Staphylococcus aureus 10/05/19 18:01 Blood Anaerobic Blood Culture - Preliminary Staphylococcus aureus PG Care Time/CCT Total # of Minutes Spent Total Time Spent with Patient: Total time spent is greater than 50% in coordination of care (as documented) at patient's floor/unit and/or counseling patient: Coding Level of Care Code 51903 Subseq Hosp Care Lvl 1 Diagnoses Gram positive sepsis A41.89 Thrombophlebitis arm I80.8
[2019-10-10] MEDS ORDERED: LIDOCAINE HCL 2% 2 ML VIAL/AMP(20MG/ML) INFIL ONE (11:41)
[2019-10-10] MEDS ORDERED: PROPOFOL IV EMULSION 10 MG/ML 20 ML VIAL IV ONE (11:41)
[2019-10-10] MEDS ORDERED: ATROPINE SULFATE 0.1 MG/ML 10ML SYR IV PRN (11:47)
[2019-10-10] MEDS ORDERED: ePHEDrine sulfate 50 MG/ML AMP IV PRN (11:47)
--- NOTE | 2019-10-10 11:47 | Anesthesiology Consultation ---
Date of Service October 10, 2019 Assessment & Plan Chart Review Chart Review: Acceptable Risk for Surgery and Patient NOT seen in Pre Admission Testing Consults Requested none ASA ASA4 Proposed Anesthesia Anesthesia Type: MAC Risk / Benefits Reviewed With: PT / POA / Parent / Guardian, Accepts Plan and Informed Consent Obtained History Surgery Operation Date: 10/10/19 17:00 Proposed Procedures p Esophagogastroduodenoscopy Dr Quinton Alcantara Height/Weight Height: 5 ft 10 in Weight: 72.4 kg Allergies Allergy/AdvReac Type Severity Reaction Status Date / Time No Known Allergies Allergy Verified 06/25/19 10:11 Medications Home Medications Medication Instructions Recorded Confirmed Last Taken atorvastatin 40 mg PO HS 09/28/18 10/03/19 10/02/19 calcium acetate(phosphat bind) 2,668 mg PO TIDM 09/28/18 10/03/19 04/16/19 08:00 cholecalciferol (vitamin D3) 5,000 units PO QAM 09/28/18 10/03/19 04/16/19 08:00 [Vitamin D3] clopidogrel 75 mg PO QAM 09/28/18 10/03/19 04/16/19 08:00 doxazosin 2 mg PO HS 12/20/18 10/03/19 04/15/19 insulin aspart U-100 [Novolog 1 sliding scale dose SUBCUT AC 12/20/18 10/03/19 04/16/19 08:00 U-100 Insulin aspart] carvedilol 25 mg PO QAM 06/25/19 10/03/19 Unknown carvedilol 37.5 mg PO HS 06/25/19 10/03/19 Unknown amlodipine 10 mg PO DAILY 10/03/19 10/03/19 10/03/19 calcium carbonate [Tums Ultra] 1,600 mg PO BID 10/03/19 10/03/19 Unknown gentamicin 1 applic TOPICAL DAILY 10/03/19 10/03/19 Unknown insulin glargine [Lantus Solostar 15 unit SUBCUT PM 10/03/19 10/03/19 Unknown U-100 Insulin] ropinirole 0.25 mg PO HS 10/03/19 10/03/19 Unknown sucroferric oxyhydroxide [Velphoro] 500 mg PO TIDM 10/03/19 10/03/19 Unknown trazodone 50 mg PO DAILY 10/03/19 10/03/19 Unknown Active Medications Generic Name Dose Route Start Last Admin Trade Name Freq PRN Reason Stop Dose Admin Acetaminophen 650 mg 10/03/19 18:01 10/09/19 01:20 Tylenol PO 11/02/19 18:00 650 mg Q4H PRN Administration Pain or Fever Amlodipine Besylate 10 mg 10/04/19 09:00 10/10/19 09:46 Norvasc PO 11/03/19 08:59 10 mg DAILY EMERY Administration Atorvastatin Calcium 40 mg 10/03/19 21:00 10/09/19 20:57 Lipitor PO 11/02/19 20:59 40 mg HS EMERY Administration Calcium Acetate 2,668 mg 10/03/19 18:30 10/10/19 08:31 Phoslo PO 11/02/19 18:29 Not Given TIDM EMERY Calcium Carbonate 1,500 mg 10/05/19 17:00 10/10/19 08:32 Tums PO 11/04/19 16:59 1,500 mg BIDM EMERY Administration Carvedilol 25 mg 10/04/19 09:00 10/10/19 08:31 Coreg PO 11/03/19 08:59 25 mg QAM EMERY Administration Carvedilol 37.5 mg 10/03/19 21:00 10/09/19 20:58 Coreg PO 11/02/19 20:59 37.5 mg HS EMERY Administration Clopidogrel Bisulfate 75 mg 10/04/19 09:00 10/07/19 08:02 Plavix PO 11/03/19 08:59 75 mg QAM EMERY Administration Doxazosin Mesylate 2 mg 10/03/19 21:00 10/09/19 20:53 Cardura PO 11/02/19 20:59 2 mg HS EMERY Administration Hydralazine HCl 25 mg 10/05/19 14:00 10/10/19 08:32 Apresoline PO 11/04/19 13:59 25 mg BID EMERY Administration Hydromorphone HCl 0.5 mg 10/06/19 13:38 10/09/19 19:34 Dilaudid IV 10/20/19 13:37 0.5 mg Q4H PRN Administration Severe Pain Lorazepam 0.5 mg in 1 mls @ 1 mls/min 10/05/19 17:13 10/08/19 00:41 Ativan IV 11/04/19 17:12 1 mls/min Q6H PRN Administration Nausea And Vomiting Promethazine HCl 12.5 mg/ 50.5 mls @ 202 mls/hr 10/06/19 04:12 10/06/19 05:10 Sodium Chloride IV 11/05/19 04:11 Infused Q6H PRN Infusion Nausea And Vomiting Cefazolin Sodium 1,000 mg in 7.5 mls @ 2.5 mls/min 10/08/19 21:00 10/09/19 20:49 Ancef 1000mg IV 10/22/19 20:59 2.5 mls/min HS EMERY Administration Protocol Pantoprazole Sodium 40 mg/ 10 mls @ 5 mls/min 10/08/19 21:00 10/10/19 08:31 Syringe IV 11/07/19 20:59 5 mls/min BID@0900,2100 EMERY Administration Insulin Aspart 0 units 10/03/19 18:01 10/10/19 08:29 Novolog Flexpen SC 11/02/19 18:00 3 units ACHS EMERY Administration Insulin Glargine 15 units 10/09/19 21:00 10/09/19 20:56 Lantus Solostar Pen SC 11/08/19 20:59 15 units HS EMERY Administration Lorazepam 1 mg 10/08/19 21:35 10/08/19 21:45 Ativan PO 11/07/19 21:34 1 mg HS PRN Administration Insomnia Miscellaneous 15 - 30 gm 10/03/19 18:01 10/04/19 07:53 Carbohydrates For Hypoglycemia PO 11/02/19 18:00 15 gm UD PRN Administration Hypoglycemia Protocol Velphoro~Non- 1 ea 10/04/19 08:00 10/10/19 08:31 Formulary Patient's PO 11/03/19 07:59 Not Given Own Med TIDM EMERY Ropinirole HCl 0.25 mg 10/03/19 21:00 10/09/19 20:54 Requip PO 11/02/19 20:59 0.25 mg HS EMERY Administration Trazodone HCl 50 mg 10/04/19 21:00 10/09/19 20:53 Desyrel PO 11/03/19 20:59 50 mg HS EMERY Administration Vitamin D 5,000 units 10/04/19 09:00 10/10/19 08:34 Vitamin D3 PO 11/03/19 08:59 5,000 units QAM EMERY Administration NPO Date Last Intake of Fluids: 10/10/19 Time Last Intake of Fluids: 00:00 Last Intake of Fluids Comment: Sips of water with morning pills Date Last Intake of Solids: 10/09/19 Time Last Intake of Solids: 17:00 Past Medical History Medical History Anemia in ESRD (end-stage renal disease) (Chronic) Charcot foot due to diabetes mellitus (Chronic) 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) Diabetic nephropathy (Chronic) Diabetic neuropathy (Chronic) Diabetic retinopathy (Chronic) End-stage renal disease (ESRD) (Chronic) ESRD (end stage renal disease) (Chronic) Fatty liver (Chronic) Hypertension (Chronic) Migraines (Chronic) Nephrotic syndrome due to diabetes mellitus (Chronic) Pericardial effusion without cardiac tamponade (Chronic) Prolonged QT interval (Chronic) TIA (transient ischemic attack) (Chronic) Exercise / Class Metabolic Activity III < 4 Walking/Shop/Light housework Past Family History Family History Mother Hypertension Grandfather (Maternal) Diabetes Grandmother (Maternal) Diabetes Grandmother (Paternal) Diabetes Past Surgical History Surgical History S/P eye surgery (Chronic) Past Anesthesia History No Hx of Anesthesia Complications and No Family Hx of Anesthesia Complications History of PONV No Hx of PONV and No Hx of Motion Sickness Social History Smoking Status: Former smoker Do You Dip or Chew Tobacco: No Hx Alcohol Use: No Hx Substance Use: No substance use type: does not use Physical Exam Vital Signs Last Vital Signs Temp 37 C 10/10/19 11:17 Pulse 67 10/10/19 11:17 Resp 16 10/10/19 11:17 BP 157/75 H 10/10/19 11:17 Pulse Ox 93 10/10/19 11:17 Constitutional not obese ENMT Mouth: no dentition abnormality Thyromental Distance: < 3.5 Finger Breadths Mallampati Class: II Neck normal visual inspection, trachea midline and + facial hair; neck extension not limited Respiratory normal respiratory effort Auscultation: lungs clear to auscultation bilaterally Cardiovascular Rate/Rhythm: regular rate and regular rhythm Heart Sounds: no murmur Vessels: no carotid bruit Musculoskeletal Spine: normal cervical ROM Extremities: extremities normal to inspection Neurologic moves all extremities Motor/Sensory: + sensory deficit Psychiatric Orientation: alert and oriented x 3 Testing Laboratory Results 10/10/19 05:55 10/10/19 05:55 PT 11.3 Seconds (9.0-12.0) 10/03/19 14:05 INR 1.1 (0.9-1.1) 10/03/19 14:05 Hemoglobin A1c 8.3 % (4.5-5.6) H 10/04/19 07:35 Urine Color Yellow 10/05/19 20:15 Urine Appearance Turbid (Clear) A 10/05/19 20:15 Urine pH 6.5 (4.5-7.5) 10/05/19 20:15 Ur Specific Cascade 1.018 (1.000-1.030) 10/05/19 20:15 Urine Protein 4+ (Negative) H 10/05/19 20:15 Urine Glucose (UA) 2+ (Negative) H 10/05/19 20:15 Urine Ketones Trace (Negative) H 10/05/19 20:15 Urine Nitrite Negative (Negative) 10/05/19 20:15 Ur Leukocyte Esterase 3+ (Negative) H 10/05/19 20:15 Urine WBC (Auto) >30 /hpf (0-5) H 10/05/19 20:15 Urine RBC (Auto) 5-10 /hpf (0-4) H 10/05/19 20:15 U Hyaline Cast (Auto) Not Reportable 10/05/19 20:15 U Epithel Cells (Auto) >30 /lpf (0-5) H 10/05/19 20:15 Urine Bacteria (Auto) 2+ (Negative) H 10/05/19 20:15 Blood Type A Positive 10/07/19 13:51 Antibody Screen NEGATIVE 10/07/19 13:51 10/08/19 05:41 Aerobic Blood Culture - Preliminary Blood No growth in Aerobic bottle after 48 hours. Anaerobic Blood Culture - Preliminary No growth in Anaerobic bottle after 48 hours. 10/09/19 06:02 Aerobic Blood Culture - Preliminary Blood No growth in Aerobic bottle after 24 hours. Anaerobic Blood Culture - Preliminary No growth in Anaerobic bottle after 24 hours. 10/07/19 07:49 Aerobic Blood Culture - Preliminary Blood No growth in Aerobic bottle after 48 hours. Anaerobic Blood Culture - Preliminary No growth in Anaerobic bottle after 48 hours. 10/05/19 20:15 Urine Culture - Final Urine,Clean Catch Coag negative Staphylococcus 10/05/19 17:58 Aerobic Blood Culture - Preliminary Blood Staphylococcus aureus Anaerobic Blood Culture - Preliminary Staphylococcus aureus 10/05/19 18:01 Aerobic Blood Culture - Preliminary Blood Staphylococcus aureus Anaerobic Blood Culture - Preliminary Staphylococcus aureus 10/10/19 07:42 POC Glucose 245 H
--- NOTE | 2019-10-10 12:01 | GI REPORT ---
Addendum Number: 1 Addendum Date: 10/13/2019 11:49:21 AM Please note the procedure note should read that the endoscope was advanced only to the stomach due to retained food contents. Yessenia Lauren DO 10/13/2019 11:49:47 AM This report has been signed electronically. Patient Name: Xavier Hicks Procedure Date: 10/10/2019 11:54 AM Date of : 1985 Admit Type: Inpatient Age: 34 Gender: Male Attending MD: Killian Alcantara DO Procedure: Upper GI endoscopy Providers: Killian Alcantara DO Referring MD: Bam Galvez Indications: Epigastric abdominal pain, Suspected upper gastrointestinal bleeding Medicines: Monitored Anesthesia Care Complications: No immediate complications. Estimated blood loss: Minimal. Estimated Blood Loss: Estimated blood loss was minimal. Procedure: Pre-Anesthesia Assessment: - Prior to the procedure, a History and Physical was performed, and patient medications, allergies and sensitivities were reviewed. The patient's tolerance of previous anesthesia was reviewed. - The risks and benefits of the procedure and the sedation options and risks were discussed with the patient. All questions were answered and informed consent was obtained. - Patient identification and proposed procedure were verified prior to the procedure by the physician, the nurse and the analyst competitive intelligence. The procedure was verified in the procedure room. - Pre-procedure physical examination revealed no contraindications to sedation. - ASA Grade Assessment: IV - A patient with severe systemic disease that is a constant threat to life. - After reviewing the risks and benefits, the patient was deemed in satisfactory condition to undergo the procedure. - The anesthesia plan was to use monitored anesthesia care (MAC). - Immediately prior to administration of medications, the patient was re-assessed for adequacy to receive sedatives. - The heart rate, respiratory rate, oxygen saturations, blood pressure, adequacy of pulmonary ventilation, and response to care were monitored throughout the procedure. - The physical status of the patient was re-assessed after the procedure. After obtaining informed consent, the endoscope was passed under direct vision. Throughout the procedure, the patient's blood pressure, pulse, and oxygen saturations were monitored continuously. The Endoscope was introduced through the mouth, with the intention of advancing to the duodenum. The scope was advanced to the second part of the duodenum before the procedure was aborted. Medications were given. The upper GI endoscopy was accomplished without difficulty. The patient tolerated the procedure well. Findings: The examined esophagus was normal. A large amount of food (residue) was found in the entire examined stomach. Impression: - Normal esophagus. - A large amount of food (residue) in the stomach. - No specimens collected. Recommendation: - Return patient to [facility] care. - Repeat upper endoscopy at appointment to be scheduled because the preparation was poor. Given the amount of food in the stomach I wonder if his symptoms may be related to underlying gastroparesis. I would recommend a liquid diet for the next 48 hours at which time a repeat upper endoscopy could be attempted. Perhaps the patient would benefit from use of Reglan 5 mg 4 times daily while inpatient to help clear the stomach. Killian Alcantara D.O. Killian Alcantara, DO 10/10/2019 12:00:39 PM This report has been signed electronically. Note Initiated On: 10/10/2019 11:54 AM Number of Addenda: 1 I attest to the content of the Intraoperative Record and orders documented therein, exceptions below {[id number]}
--- NOTE | 2019-10-10 12:06 | Anesthesiology Progress Note ---
Date of Service October 10, 2019 Anesthesia Post Procedure Vital Signs Vital Signs: Temp Pulse Pulse Pulse Resp BP BP 10/10/19 11:17 37 C 67 16 157/75 H 10/10/19 11:07 67 10/10/19 11:04 36.9 C 68 18 163/75 H 10/10/19 07:27 36.8 C 67 18 10/10/19 04:34 37.0 C 64 18 160/77 H 10/09/19 23:50 70 10/09/19 23:21 37.2 C 69 18 166/84 H 10/09/19 19:02 37.2 C 70 18 155/99 H 10/09/19 15:34 37 C 68 18 148/76 H 10/09/19 13:50 37.4 C 73 194/91 H 10/09/19 13:31 37.4 C 73 16 10/09/19 13:00 72 189/88 H 10/09/19 12:41 72 183/89 H BP Pulse Ox 10/10/19 11:17 93 10/10/19 11:07 10/10/19 11:04 93 10/10/19 07:27 164/73 H 93 10/10/19 04:34 92 10/09/19 23:50 10/09/19 23:21 94 10/09/19 19:02 95 10/09/19 15:34 95 10/09/19 13:50 10/09/19 13:31 10/09/19 13:00 10/09/19 12:41 Pain Intensity Generalized: Pain Intensity: 6 Transfer of Care Handoff Completed per policy Notes Mental Status: alert / awake / arousable Patient Amnestic to Procedure: Yes Nausea / Vomiting: adequately controlled Pain: adequately controlled Airway Patency, RR, SpO2: stable & adequate BP & HR: stable & adequate Hydration State: stable & adequate Anesthetic Complications: no major complications apparent
--- NOTE | 2019-10-10 15:08 | Pharmacy Report ---
Pharmacy Glycemic Short Note 2 - Date of Service October 10, 2019 - Glycemic Short BSG Results (Last 24 hours): 10/09/19 10/09/19 10/10/19 16:10 20:27 05:55 Glucose 197 H POC Glucose 134 H 237 H 10/10/19 10/10/19 07:42 12:52 Glucose POC Glucose 245 H 257 H OUTPATIENT ANTIDIABETIC REGIMEN: * Lantus 15 units HS * Novolog SS * A1c = 8.3 % 10/04/19 ASSESSMENT: 10/10/19: * Fasting BSG is slightly improved today following insulin adjustments, but is still markedly elevated. * Will continue to titrate basal insulin upward. * Novolog parameters appear to be appropriate, but will adjust as needed as basal insulin is adjusted. 10/09/19 * Fasting BSG remains significantly elevated this morning (276 mg/dL). This indicates that basal insulin is still quite inadequate. * BSGs throughout the day are reasonably well-controlled and corrected with current Novolog parameters. * Antibiotics have been switched from Vanc to Ancef and Protonix gtt is no longer infusing. 10/08/19 * Blood sugars looking much better for this patient over past 48 hours, no hypoglycemia, somewhat elevated fasting of 256mg/dl this morning. Patient did start IV Protonix drip yesterday for GI Bleed. Will increase Lantus slight to help cover that dextrose. * No HD today or yesterday, scheduled again for tomorrow. * No further changes needed in insulin regimen at this time. 10/06/19 * 34 year old male admitted with hyperglycemia, noncompliance with PD, started HD while inpatient, received 10/04 and scheduled again for this afternoon. Started IV antibiotics for fever and bacteremia, urine cultures pending. * Brittle type 1 diabetic dx at 13 years of age, with lows in 30's at home. Follows with Yvon at [facility] clinic in [place]. * Blood sugars trending high over past 24 hours, but patient also started having N/V, gastroparesis. * Patient had 7 units of novolog with breakfast to correct for blood sugar of 202mg/dl and cover 52 grams of CHO, but then vomited everything up after eating. Dr Galvez aware. Patient had Phenergan at 0500, trying lorazepam now, pt with QT prolongation. * May need to consider low rate of D5W IV fluids. * No changes in insulin doses at this time, will adjust goal range, will follow trends and adjust conservatively to minimize hyper and hypoglycemia. PLAN FOR INPATIENT GLYCEMIC CONTROL: * Basal insulin -increase * Lantus 20 units SQ HS * supplemental dose of Lantus 5 units this morning * Bolus insulin * NovoLog per scale ACHS or Q6hrs while NPO * Goal Range: Low 120 mg/dL - High 160 mg/dL - change to try to prevent hypoglycemia * Correction Factor: 30 mg/dL/unit * Nutritional / Prandial insulin per carb ratio of 1 unit per 7 grams CHO consumed
[2019-10-10] MEDS ORDERED: METOCLOPRAMIDE HCL 5 MG TABLET PO SCH (18:00)
--- NOTE | 2019-10-10 18:36 | Nephrology Progress Note ---
Date of Service October 10, 2019 Assessment & Plan (1) Dialysis patient, noncompliant: ESRD on PD but currently on HD and likely for HD at d/c. No concerns for peritonitis; many concerns however that he is simply not doing txs prior to admission. Marked worsening of OP labs past 2 months. He has functional AV fistula -plan to transition back to in center HD -renal nurses to flush PD catheter and change dressing weekly > last done 10/09 >> until PD cath can be removed (suspect will have to be after d/c) -rationale for FR 1.5 L again explained to pt (2) Anemia in ESRD (end-stage renal disease): t stn 29% this month TERRI as indicated w/ HD monitor hgb daily w/ heme + stool; on protonix; has been fairly stable >for EGD today d/t 2 melanotic stools on weekend-f/u results (3) Labile essential hypertension: Blood pressure is elevated >> for HD today; cont current meds (4) Bacteremia: Due to MSSA attributed to suppurative phlebitis at L AC IV site; also w/ CoNS in urine. getting vanco per primary team but nafcillin while in house may be more suitable. -still spiking temps or near -F >> ordered PVR check bid for now; no reflux/retention on imaging -inf dzs c/s pending -If discharged vanco can be administered at dialysis unit but will need to be leslie pplied by pt/ by specialty pharmacy. (5) Fever: w/ bacteremia on abtx and ongoing F; has a midline - like catheter that can be used x 4 wks Admission and Anticipated Discharge Date Admission Date: October 03, 2019 Subjective seen on rounds at about 0930; long and les discussion about goals of dialysis care and best dialysis modality-will move to [facility]. he is feeling somewhat better today; for EGD; c/o fluid limit too tight and that staff not counting out his fluids correctly; no sob; no abd pain; will need 6 wx IV abtx Review of Systems Review of Systems: All systems reviewed & are unremarkable except as noted in HPI & below Physical Exam Constitutional: well developed, well nourished and + ill appearing; no acute distress Eyes: EOM intact bilaterally ENMT: Ears: no external ear abnormality Nose: no external nose abnormality Mouth: + dry oral mucous membranes Neck: no nuchal rigidity Respiratory: normal respiratory effort; no respiratory distress and no labored breathing Auscultation: lungs clear to auscultation bilaterally and + diminished lung sounds Cardiovascular: Rate/Rhythm: regular rate and regular rhythm Extremities: + AV fistula (+ t/b); no edema Gastrointestinal (Abdomen): Inspection/Auscultation: normal bowel sounds Percussion/Palpation: abdomen soft; abdomen nontender Musculoskeletal: Extremities: strength 5/5 throughout Skin: no rashes, warm and dry + lesion (L forearm not examined today) Trauma: + contusion (R brow; further resolving) Psychiatric: Orientation: alert and oriented x 3 Speech: normal rate/rhythm/volume of speech (some hoarseness) Affect: + flat affect I nsight: + impaired insight Judgement: + impaired judgement Results & Data ([facility]) Vital Signs (Past 12 Hours) Vital Signs Temp Pulse Pulse Pulse Resp BP BP 10/10/19 15:46 62 10/10/19 15:37 36.7 C 65 18 167/85 H 10/10/19 12:33 67 14 176/90 H 10/10/19 12:18 66 14 174/88 H 10/10/19 12:03 66 12 172/87 H 10/10/19 11:17 37 C 67 16 157/75 H 10/10/19 11:07 67 10/10/19 11:04 36.9 C 68 18 163/75 H 10/10/19 07:27 36.8 C 67 18 164/73 H Pulse Ox 10/10/19 15:46 10/10/19 15:37 95 10/10/19 12:33 92 10/10/19 12:18 94 10/10/19 12:03 96 10/10/19 11:17 93 10/10/19 11:07 10/10/19 11:04 93 10/10/19 07:27 93 Laboratory Results 10/10/19 05:55 10/10/19 05:55
[2019-10-10] MEDS: DOXAZosin MESYLATE TAB 2 MG TAB PO SCH (20:42)
[2019-10-10] MEDS: TRAZODONE HCL 50 MG TAB PO SCH (20:43)
[2019-10-10] MEDS: ATORVASTATIN 40 MG TAB PO SCH (20:45)
--- NOTE | 2019-10-10 20:50 | Hospitalist Progress Note ---
Date of Service October 10, 2019 Assessment & Plan (1) End-stage renal disease (ESRD): Worsening renal function despite peritoneal dialysis. Hemodialysis initiated. Ongoing management per Nephrology. 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 Severe hypoglycemia (30) at home. Patient attributes hypoglycemic episode at home to missed meal. Hemoglobin A1c 8.3. Blood sugars fluctuating due to acute illness and variable PO intake. Pharmacy consulted for glycemic management. FBS this morning = 245. (3) Hypertension: Continue carvedilol, amlodipine, doxazosin. (4) Fever: Spiked fever evening of 10/05. Chest x-ray showed ?? infiltrate left base, but no cough and lungs clear. Patient reports occasional voiding with chronic dysuria. Possible UTI as discussed below. Developed erythema and tenderness left antecubital fossa at IV site. Suspected suppurative phlebitis with bacteremia as discussed below. (5) Bacteremia due to Staphylococcus aureus: Developed erythema and tenderness left antecubital fossa at IV site. Blood cultures obtained and empiric IV antibiotic therapy with vancomycin and cefepime initiated. 2 of 2 blood cultures from 10/05 grew gram-positive cocci. PCR's-staph aureus, not MRSA. Antibiotic therapy de-escalated with discontinuation of cefepime; IV vancomycin continued. Final report from blood cultures - MSSA. Beta lactams probably ideal drugs of choice for MSSA, but vancomycin may be more pragmatic with hemodialysis. Discussed with Nephrology and Pharmacy. Cefazolin has advantage of q 24 hr dosing compared to nafcillin q 4 hours and should be as effective. Checking repeat blood cultures to confirm clearance of bacteremia- blood cultures from 10/07, 10/08, and 10/09 negative so far. Echo - no apparent valvular vegetations. ID recommends minimum of 6 weeks of antibiotic therapy. Case Management consulted to pursue outpatient treatment options. (6) Urinary tract infection: Patient reports occasional voiding with chronic dysuria. UA day of admission showed + leukocytosis, WBC's, bacteria, many epithelial cells; urine culture not obtained at that time. Repeat UA 10/05 showed similar findings. Urine culture growing coag neg Staph. Not certain whether or not bacteruria represents UTI or colonization. Received vancomycin. CT abd & pelvis - circumferential thickening of bladder wall, nonobstructing left renal calculus, no urinary tract obstruction. (7) Nausea & vomiting: Intermittent nausea and vomiting. Probably has gastroparesis (although could not find any gastric emptying scans). Anti-emetics PRN (no ondansetron or other QT-prolonging meds like promethazine). Further evaluation if symptoms persist / worsen. (8) GI bleedin episodes of loose dark stools 10/07. No abdominal pain. Has had several episodes of emesis without les blood or coffee grounds. Hemodynamically stable. Hold clopidogrel (prescribed for TIA). Type and screen pRBC's. Received IV pantoprazole. No further melena. Hgb 10.9 --> --> 9.1. GI consulted. EGD attempted, but very limited due to retained gastric contents. GI recommended clear liquids x 48 hrs followed by repeat EGD, but pt prefers not to pursue. Transition to PO PPI. (9) Acute blood loss anemia: Baseline Hgb 10 - 10.5. Now with GI bleeding. Hgb as low as 8.7. Acute blood loss anemia due to GI bleeding. No transfusion necessary at this time. Follow H/H. (10) Anemia in ESRD (end-stage renal disease): Anemia of chronic kidney disease. Baseline hemoglobin 10 - 10.5. Now with acute blood loss anemia due to GI bleeding as discussed below. Follow. (11) Fall: Suspected fall, but patient not 100% certain whether he fell or not. Fall possibly secondary to hypoglycemia. PT/OT discussed; patient does not feel that therapies are necessary. (12) Pain of left upper extremity: Suspected infected IV site left antecubital fossa. Swelling of left forearm 10/07. Venous duplex LUE - superficial phlebitis. Soft tissue US - soft tissue edema, no abscess. (13) DVT prophylaxis: Anticoagulants not utilized due to possible head injury + GI bleed. SCDs ordered. Ambulate. (14) Discharge planning issues: Anticipated discharge to home. Best option for outpatient IV antibiotic therapy to be determined. Family Medicine follow-up with Dr. Coffey. Diabetes management per [facility]. Admission and Anticipated Discharge Date Admission Date: October 03, 2019 Subjective Recheck for multiple problems. Patient seen in their room around 1415. Temps down. Left arm feels better. EGD attempted, but very limited due to retained gastric contents. GI recommended clear liquid x 48 hours, but patient prefers to stay on his usual diet. Ambulating. Review of Systems: Constitutional- as noted above. Cardiac- no chest pain. Pulmonary- no cough. GI- as noted above. - oliguric. Otherwise, as noted above. Physical Exam Constitutional: no acute distress Respiratory: no respiratory distress Auscultation: lungs clear to auscultation bilaterally Cardiovascular: Rate/Rhythm: regular rate and regular rhythm Vessels: no JVD Extremities: no calf tenderness and no edema Gastrointestinal (Abdomen): normal bowel sounds, soft, nontender, no hepatosplenomegaly Musculoskeletal: Extremities: + extremities abnormal to inspection (swelling L forearm (improved); erythema L antecubital fossa (improved)) and no cyanosis Skin: no rashes, warm and dry Psychiatric: Orientation: alert and oriented x 3 Results & Data ([facility]) Vital Signs (Past 12 Hours) Vital Signs Temp Pulse Pulse Pulse Resp BP BP 10/10/19 19:46 36.7 C 66 19 175/78 H 10/10/19 15:46 62 10/10/19 15:37 36.7 C 65 18 167/85 H 10/10/19 12:33 67 14 176/90 H 10/10/19 12:18 66 14 174/88 H 10/10/19 12:03 66 12 172/87 H 10/10/19 11:17 37 C 67 16 157/75 H 10/10/19 11:07 67 10/10/19 11:04 36.9 C 68 18 163/75 H Pulse Ox 10/10/19 19:46 94 10/10/19 15:46 10/10/19 15:37 95 10/10/19 12:33 92 10/10/19 12:18 94 10/10/19 12:03 96 10/10/19 11:17 93 10/10/19 11:07 10/10/19 11:04 93 Laboratory Results 10/10/19 05:55 10/10/19 05:55 Microbiology 10/08/19 05:41 Blood Aerobic Blood Culture - Preliminary No growth in Aerobic bottle after 48 hours. 10/08/19 05:41 Blood Anaerobic Blood Culture - Preliminary No growth in Anaerobic bottle after 48 hours. 10/09/19 06:02 Blood Aerobic Blood Culture - Preliminary No growth in Aerobic bottle after 24 hours. 10/09/19 06:02 Blood Anaerobic Blood Culture - Preliminary No growth in Anaerobic bottle after 24 hours. 10/07/19 07:49 Blood Aerobic Blood Culture - Preliminary No growth in Aerobic bottle after 48 hours. 10/07/19 07:49 Blood Anaerobic Blood Culture - Preliminary No growth in Anaerobic bottle after 48 hours. 10/05/19 20:15 Urine,Clean Catch Urine Culture - Final Coag negative Staphylococcus 10/05/19 17:58 Blood Aerobic Blood Culture - Preliminary Staphylococcus aureus 10/05/19 17:58 Blood Anaerobic Blood Culture - Preliminary Staphylococcus aureus 10/05/19 18:01 Blood Aerobic Blood Culture - Preliminary Staphylococcus aureus 10/05/19 18:01 Blood Anaerobic Blood Culture - Preliminary Staphylococcus aureus (1) Fall Encounter type: initial encounter Qualified Code(s): W19.XXXA - Unspecified fall, initial encounter
[2019-10-10] MEDS ORDERED: INSULIN GLARGINE SOLOSTAR 100 UNITS/ML 3 ML PEN SC SCH (21:00)
[2019-10-10] MEDS: CEFAZOLIN 1000MG 1,000 MG/7.5 ML SYR IV SCH (21:30)
[2019-10-10] MEDS: ROPINIROLE HCL 0.25 MG TABLET PO SCH (21:31)
[2019-10-11 07:40] LABS: Hematocrit (blood only) 30.4 % (42-52); Mean Corpuscular Hemoglobin 29.5 pg (25-34); Mean Corpuscular Hgb Conc 32.9 g/dL (32-36); Mean Corpuscular Volume 89.7 fL (80-100); Mean Platelet Volume 11.1 fL (7.4-10.4); Platelet Count 224 K/uL (130-400); RDW Coefficient of Variation 13.6 % (11.5-14.5); Red Blood Count 3.39 M/uL (4.7-6.1)
[2019-10-11] MEDS ORDERED: HEPARIN SOD (PORCINE) 1000 UNIT/ML 10 ML VIAL IV ONE (07:49)
[2019-10-11] MEDS ORDERED: SODIUM CHLORIDE 0.9% 1000ML 1,000 ML IV PRN (07:49)
[2019-10-11] MEDS ORDERED: EPOETIN ALFA 10,000 UNITS/ML VIAL IV ONE (07:54)
[2019-10-11 08:24] LABS: BUN Creatinine Ratio 4.9 (10-20); Calcium 8.9 mg/dl (8.5-10.1); Creatinine Clr Calc Pharmacy 10.3 ml/min; Est GFR (African American) 6.7; Est GFR (Non-African American) 5.8; Potassium 3.6 mmol/L (3.5-5.1)
[2019-10-11] MEDS: VELPHORO PO SCH ×3 (08:27→17:01)
[2019-10-11] MEDS: CALCIUM ACETATE 667 MG CAP PO SCH ×3 (08:27→17:01)
[2019-10-11] MEDS: PANTOprazole 40 MG TAB PO SCH ×2 (08:27→20:42)
[2019-10-11] MEDS: CALCIUM CARBONATE 500 MG CHEWABLE TAB PO SCH ×2 (08:29→17:01)
[2019-10-11] MEDS: CHOLECALCIFEROL 1,000 UNITS 25 MCG TAB PO SCH (08:29)
[2019-10-11] MEDS ORDERED: EPOETIN ALFA IV SCH (08:30)
[2019-10-11] MEDS: INSULIN ASPART 100 UNITS/ML 3 ML PEN SC SCH ×4 (08:33→20:42)
[2019-10-11 11:20] LABS: Hepatitis B Surface Antigen Neg (Neg)
[2019-10-11 11:49] LABS: Hepatitis C IgG 13Yrs+Old_Rflx Neg (Neg)
[2019-10-11] MEDS: HEPARIN SOD (PORCINE) 1000 UNIT/ML 10 ML VIAL IV SCH (13:04)
[2019-10-11] MEDS: AMLODIPINE BESYLATE 5 MG TAB PO SCH (14:14)
[2019-10-11] MEDS: carvediloL 25 MG TAB PO SCH ×2 (14:14→20:40)
--- NOTE | 2019-10-11 15:37 | Dialysis Progress Note ---
Date of Service October 11, 2019 Assessment & Plan (1) Dialysis patient, noncompliant: ESRD on PD but now w/ modality switch to HD and for HD at d/c. No concerns for peritonitis; many concerns however that he is simply not doing txs prior to admission. Marked worsening of OP labs past 2 months. He has functional AV fistula -plan to transition back to in center HD at [facility] at d/c -renal nurses to flush PD catheter and change dressing weekly > last done 10/09 >> until PD cath can be removed, likely at [facility], after d/c -pt refuses 1.5L fluid limit (2) Anemia in ESRD (end-stage renal disease): t stn 29% this month TERRI as indicated w/ HD monitor hgb daily w/ heme + stool; on protonix; has been fairly stable (3) Labile essential hypertension: Blood pressure is elevated >> for HD today; cont current meds; complicated by pain/N frequently (4) Bacteremia: Due to MSSA attributed to suppurative phlebitis at L AC IV site. for 6 wks ancef. F resolved now. has mid-line like catheter that can be used x 4 wks Subjective seen on dialysis; working on plans to resume in center HD as OP and on arrangements for daily OP antibiotics; c/o LYON; EGD showed no obvious gastritis though not all visualized d/t large food bolus; no sob; no N currently Review of Systems Review of Systems: All systems reviewed & are unremarkable except as noted in HPI & below Physical Exam Constitutional: well developed and well nourished; no acute distress Eyes: EOM intact bilaterally ENMT: Ears: no external ear abnormality Nose: no external nose abnormality Mouth: + dry oral mucous membranes Neck: no nuchal rigidity Respiratory: normal respiratory effort; no respiratory distress and no labored breathing Auscultation: lungs clear to auscultation bilaterally and + diminished lung sounds Cardiovascular: Rate/Rhythm: regular rate and regular rhythm Extremities: + AV fistula (+ t/b); no edema Gastrointestinal (Abdomen): Inspection/Auscultation: normal bowel sounds Percussion/Palpation: abdomen soft; abdomen nontender Musculoskeletal: Extremities: strength 5/5 throughout Skin: no rashes, warm and dry Psychiatric: Orientation: alert and oriented x 3 Speech: normal rate /rhythm/volume of speech (some hoarseness) Affect: + flat affect Insight: + impaired insight Judgement: + impaired judgement Results & Data Vital Signs (Past 12 Hours) Vital Signs Temp Pulse Pulse Pulse Resp BP BP 10/11/19 14:00 36.6 C 65 181/79 H 10/11/19 13:40 66 176/76 H 10/11/19 13:20 66 173/73 H 10/11/19 13:00 65 189/92 H 10/11/19 12:40 65 182/85 H 10/11/19 12:20 67 161/74 H 10/11/19 12:00 65 142/63 H 10/11/19 11:40 65 172/80 H 10/11/19 11:20 66 183/77 H 10/11/19 11:00 67 181/87 H 10/11/19 10:40 68 163/79 H 10/11/19 10:20 65 125/74 10/11/19 10:00 66 152/78 H 10/11/19 09:43 36.6 C 64 10/11/19 08:00 67 10/11/19 07:37 36.4 C L 64 16 177/91 H Pulse Ox 10/11/19 14:00 10/11/19 13:40 10/11/19 13:20 10/11/19 13:00 10/11/19 12:40 10/11/19 12:20 10/11/19 12:00 10/11/19 11:40 10/11/19 11:20 10/11/19 11:00 10/11/19 10:40 10/11/19 10:20 10/11/19 10:00 10/11/19 09:43 10/11/19 08:00 10/11/19 07:37 94 Laboratory Results 10/11/19 07:26 10/11/19 07:26
--- NOTE | 2019-10-11 15:39 | Pharmacy Report ---
Pharmacy Glycemic Short Note 2 - Date of Service October 11, 2019 - Glycemic Short BSG Results (Last 24 hours): 10/10/19 10/10/19 10/11/19 16:17 20:07 07:26 Glucose 54 L POC Glucose 243 H 276 H 10/11/19 10/11/19 07:59 14:12 Glucose POC Glucose 70 189 H OUTPATIENT ANTIDIABETIC REGIMEN: * Lantus 15 units HS * Novolog SS * A1c = 8.3 % 10/04/19 ASSESSMENT: 10/11/19: * Patient was hypoglycemic this morning. Suspect that this is due to the additional basal insulin that has been required the past couple of days. * Will reduce basal insulin this evening back to home dose. 10/10/19 * Fasting BSG is slightly improved today following insulin adjustments, but is still markedly elevated. * Will continue to titrate basal insulin upward. * Novolog parameters appear to be appropriate, but will adjust as needed as basal insulin is adjusted. 10/09/19 * Fasting BSG remains significantly elevated this morning (276 mg/dL). This indicates that basal insulin is still quite inadequate. * BSGs throughout the day are reasonably well-controlled and corrected with current Novolog parameters. * Antibiotics have been switched from Vanc to Ancef and Protonix gtt is no longer infusing. 10/08/19 * Blood sugars looking much better for this patient over past 48 hours, no hypoglycemia, somewhat elevated fasting of 256mg/dl this morning. Patient did start IV Protonix drip yesterday for GI Bleed. Will increase Lantus slight to help cover that dextrose. * No HD today or yesterday, scheduled again for tomorrow. * No further changes needed in insulin regimen at this time. 10/06/19 * 34 year old male admitted with hyperglycemia, noncompliance with PD, started HD while inpatient, received 10/04 and scheduled again for this afternoon. Started IV antibiotics for fever and bacteremia, urine cultures pending. * Brittle type 1 diabetic dx at 13 years of age, with lows in 30's at home. Follows with Yvon at [facility] clinic in [place]. * Blood sugars trending high over past 24 hours, but patient also started having N/V, gastroparesis. * Patient had 7 units of novolog with breakfast to correct for blood sugar of 202mg/dl and cover 52 grams of CHO, but then vomited everything up after eating. Dr Galvez aware. Patient had Phenergan at 0500, trying lorazepam now, pt with QT prolongation. * May need to consider low rate of D5W IV fluids. * No changes in insulin doses at this time, will adjust goal range, will follow trends and adjust conservatively to minimize hyper and hypoglycemia. PLAN FOR INPATIENT GLYCEMIC CONTROL: * Basal insulin -decrease * Lantus 15 units SQ HS * Bolus insulin * NovoLog per scale ACHS or Q6hrs while NPO * Goal Range: Low 120 mg/dL - High 160 mg/dL - change to try to prevent hypoglycemia * Correction Factor: 30 mg/dL/unit * Nutritional / Prandial insulin per carb ratio of 1 unit per 7 grams CHO consumed Discharge planning: * Unable to interpret A1c in the setting of dialysis, but expect that patient may resume home regimen on discharge (as long as he does not report having extreme hyperglycemia or periods of hypoglycemia on current regimen). * Continue to f/u with outpt providers as patient acclimates to the new change from PD to HD.
--- NOTE | 2019-10-11 17:04 | Hospitalist Progress Note ---
Date of Service October 11, 2019 Assessment & Plan (1) End-stage renal disease (ESRD): Worsening renal function despite peritoneal dialysis. Hemodialysis initiated. Ongoing management per Nephrology. 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 Severe hypoglycemia (30) at home. Patient attributes hypoglycemic episode at home to missed meal. Hemoglobin A1c 8.3. Blood sugars fluctuating due to acute illness and variable PO intake. Pharmacy consulted for glycemic management. FBS this morning = 70. (3) Hypertension: Continue carvedilol, amlodipine, doxazosin. (4) Fever: Spiked fever evening of 10/05. Chest x-ray showed ?? infiltrate left base, but no cough and lungs clear. Patient reports occasional voiding with chronic dysuria. Possible UTI as discussed below. Developed erythema and tenderness left antecubital fossa at IV site. Suspected suppurative phlebitis with bacteremia as discussed below. (5) Bacteremia due to Staphylococcus aureus: Developed erythema and tenderness left antecubital fossa at IV site. Blood cultures obtained and empiric IV antibiotic therapy with vancomycin and cefepime initiated. 2 of 2 blood cultures from 10/05 grew gram-positive cocci. PCR's-staph aureus, not MRSA. Antibiotic therapy de-escalated with discontinuation of cefepime; IV vancomycin continued. Final report from blood cultures - MSSA. Beta lactams probably ideal drugs of choice for MSSA, but vancomycin may be more pragmatic with hemodialysis. Discussed with Nephrology and Pharmacy. Cefazolin has advantage of q 24 hr dosing compared to nafcillin q 4 hours and should be as effective. Checking repeat blood cultures to confirm clearance of bacteremia- blood cultures from 10/07, 10/08, and 10/09 negative so far. Echo - no apparent valvular vegetations. ID recommends minimum of 6 weeks of antibiotic therapy. Case Management consulted to pursue outpatient treatment options. (6) Urinary tract infection: Patient reports occasional voiding with chronic dysuria. UA day of admission showed + leukocytosis, WBC's, bacteria, many epithelial cells; urine culture not obtained at that time. Repeat UA 10/05 showed similar findings. Urine culture growing coag neg Staph. Not certain whether or not bacteruria represents UTI or colonization. Received vancomycin. CT abd & pelvis - circumferential thickening of bladder wall, nonobstructing left renal calculus, no urinary tract obstruction. (7) Nausea & vomiting: Intermittent nausea and vomiting. Probably has gastroparesis (although could not find any gastric emptying scans). Anti-emetics PRN (no ondansetron or other QT-prolonging meds like promethazine). Further evaluation if symptoms persist / worsen. (8) GI bleedin episodes of loose dark stools 10/07. No abdominal pain. Has had several episodes of emesis without les blood or coffee grounds. Hemodynamically stable. Hold clopidogrel (prescribed for TIA). Type and screen pRBC's. Received IV pantoprazole. No further melena. Hgb 10.9 --> --> 8.7 --> --> 10.0.. GI consulted. EGD attempted, but very limited due to retained gastric contents. GI recommended clear liquids x 48 hrs followed by repeat EGD, but pt prefers not to pursue. Transition to PO PPI. (9) Acute blood loss anemia: Baseline Hgb 10 - 10.5. Now with GI bleeding. Hgb as low as 8.7. Acute blood loss anemia due to GI bleeding. No transfusion necessary at this time. Follow H/H. (10) Anemia in ESRD (end-stage renal disease): Anemia of chronic kidney disease. Baseline hemoglobin 10 - 10.5. Now with acute blood loss anemia due to GI bleeding as discussed below. Follow. (11) Fall: Suspected fall, but patient not 100% certain whether he fell or not. Fall possibly secondary to hypoglycemia. PT/OT discussed; patient does not feel that therapies are necessary. (12) Pain of left upper extremity: Suspected infected IV site left antecubital fossa. Swelling of left forearm 10/07. Venous duplex LUE - superficial phlebitis. Soft tissue US - soft tissue edema, no abscess. (13) DVT prophylaxis: Anticoagulants not utilized due to possible head injury + GI bleed. SCDs ordered. Ambulate. (14) Discharge planning issues: Anticipated discharge to home. Best option for outpatient IV antibiotic therapy to be determined. Family Medicine follow-up with Dr. Coffey. Diabetes management per [facility]. Admission and Anticipated Discharge Date Admission Date: October 03, 2019 Subjective Recheck for multiple problems. Patient seen in their room around 1600. No fever. Left arm feels better. No nausea, vomiting, abdominal pain, melena, hematochezia. Review of Systems: Constitutional- as noted above. Cardiac- no chest pain. Pulmonary- no cough. GI- as noted above. - oliguric. Otherwise, as noted above. Physical Exam Constitutional: no acute distress Respiratory: no respiratory distress Auscultation: lungs clear to auscultation bilaterally Cardiovascular: Rate/Rhythm: regular rate and regular rhythm Vessels: no JVD Extremities: no calf tenderness and no edema Gastrointestinal (Abdomen): normal bowel sounds, soft, nontender, no hepatosplenomegaly Musculoskeletal: Extremities: + extremities abnormal to inspection (swelling L forearm (improved); erythema L antecubital fossa (improved)) and no cyanosis Skin: no rashes, warm and dry Psychiatric: Orientation: alert and oriented x 3 Results & Data ([facility]) Vital Signs (Past 12 Hours) Vital Signs Temp Pulse Pulse Pulse Resp BP BP 10/11/19 15:47 36.4 C L 68 18 138/71 10/11/19 15:40 67 10/11/19 14:00 36.6 C 65 181/79 H 10/11/19 13:40 66 176/76 H 10/11/19 13:20 66 173/73 H 10/11/19 13:00 65 189/92 H 10/11/19 12:40 65 182/85 H 10/11/19 12:20 67 161/74 H 10/11/19 12:00 65 142/63 H 10/11/19 11:40 65 172/80 H 10/11/19 11:20 66 183/77 H 10/11/19 11:00 67 181/87 H 10/11/19 10:40 68 163/79 H 10/11/19 10:20 65 125/74 10/11/19 10:00 66 152/78 H 10/11/19 09:43 36.6 C 64 10/11/19 08:00 67 10/11/19 07:37 36.4 C L 64 16 177/91 H Pulse Ox 10/11/19 15:47 95 10/11/19 15:40 10/11/19 14:00 10/11/19 13:40 10/11/19 13:20 10/11/19 13:00 10/11/19 12:40 10/11/19 12:20 10/11/19 12:00 10/11/19 11:40 10/11/19 11:20 10/11/19 11:00 10/11/19 10:40 10/11/19 10:20 10/11/19 10:00 10/11/19 09:43 10/11/19 08:00 10/11/19 07:37 94 Laboratory Results 10/11/19 07:26 10/11/19 07:26 (1) Fall Encounter type: initial encounter Qualified Code(s): W19.XXXA - Unspecified fall, initial encounter
[2019-10-11] MEDS: DOXAZosin MESYLATE TAB 2 MG TAB PO SCH (20:40)
[2019-10-11] MEDS: ATORVASTATIN 40 MG TAB PO SCH (20:41)
[2019-10-11] MEDS: INSULIN GLARGINE SOLOSTAR 100 UNITS/ML 3 ML PEN SC SCH (20:41)
[2019-10-11] MEDS: TRAZODONE HCL 50 MG TAB PO SCH (20:41)
[2019-10-11] MEDS: ROPINIROLE HCL 0.25 MG TABLET PO SCH (20:42)
[2019-10-11] MEDS: CEFAZOLIN 1000MG 1,000 MG/7.5 ML SYR IV SCH (20:51)
[2019-10-12] MEDS: LORazepam 1 MG TAB PO PRN (01:52)
[2019-10-12 04:04] LABS: Hepatitis A Antibody IgM NON-REACTIVE (NON-REACTIVE); Hepatitis B Core Antibody IgM NON-REACTIVE (NON-REACTIVE)
[2019-10-12] MEDS ORDERED: SODIUM CHLORIDE 0.9% 1000ML 1,000 ML IV PRN (07:59)
[2019-10-12] MEDS ORDERED: INSULIN HUMAN REGULAR PER UNIT 5 UNITS in SYRINGE 4.95 ML IV ONE (08:00)
[2019-10-12] MEDS: CALCIUM CARBONATE 500 MG CHEWABLE TAB PO SCH ×2 (08:26→17:52)
[2019-10-12 08:27] LABS: Hematocrit (blood only) 31.8 % (42-52); Hemoglobin 10.4 g/dL (14.0-18.0); Mean Corpuscular Hemoglobin 29.5 pg (25-34); Mean Corpuscular Hgb Conc 32.7 g/dL (32-36); Mean Corpuscular Volume 90.1 fL (80-100); Mean Platelet Volume 10.8 fL (7.4-10.4); Platelet Count 263 K/uL (130-400); RDW Coefficient of Variation 13.7 % (11.5-14.5); RDW Standard Deviation 45.7 fL (36.4-46.3); Red Blood Count 3.53 M/uL (4.7-6.1); White Blood Count 6.41 K/uL (4.8-10.8)
[2019-10-12] MEDS: CHOLECALCIFEROL 1,000 UNITS 25 MCG TAB PO SCH (08:27)
[2019-10-12] MEDS: AMLODIPINE BESYLATE 5 MG TAB PO SCH (08:27)
[2019-10-12] MEDS: PANTOprazole 40 MG TAB PO SCH ×2 (08:28→21:05)
[2019-10-12] MEDS: carvediloL 25 MG TAB PO SCH ×2 (08:28→21:07)
[2019-10-12] MEDS: VELPHORO PO SCH ×3 (08:29→17:51)
[2019-10-12] MEDS: CALCIUM ACETATE 667 MG CAP PO SCH ×3 (08:29→17:51)
[2019-10-12] MEDS: ACETAMINOPHEN 325 MG TAB PO PRN (08:34)
[2019-10-12] MEDS: INSULIN ASPART 100 UNITS/ML 3 ML PEN SC SCH ×4 (08:35→21:08)
[2019-10-12] MEDS: HydrALAZINE TAB 50 MG TAB PO SCH ×2 (09:00→21:06)
[2019-10-12] MEDS ORDERED: HEPARIN SOD (PORCINE) 1000 UNIT/ML 10 ML VIAL IV SCH (09:00)
[2019-10-12 09:08] LABS: BUN Creatinine Ratio 5.4 (10-20); Creatinine Clr Calc Pharmacy 13.8 ml/min; Est GFR (African American) 9.7; Est GFR (Non-African American) 8.3; Potassium 4.1 mmol/L (3.5-5.1)
[2019-10-12 09:19] LABS: Hepatitis B Surface Ab Quant 638.08 mIU/mL (>or=10mIU/mL Immune); Hepatitis B Surface Antibody Immune
[2019-10-12 09:21] LABS: Beta-Hydroxybutyrate 2.43 mg/dl (0.2-2.81)
--- NOTE | 2019-10-12 14:07 | Hospitalist Progress Note ---
Date of Service October 12, 2019 Assessment & Plan (1) End-stage renal disease (ESRD): Worsening renal function despite peritoneal dialysis. Hemodialysis initiated. Ongoing management per Nephrology. 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 Severe hypoglycemia (30) at home. Patient attributes hypoglycemic episode at home to missed meal. Hemoglobin A1c 8.3. Blood sugars fluctuating due to acute illness and variable PO intake. Pharmacy consulted for glycemic management. FBS this morning = 396 - ?? why. Blood sugar at 1129 = 187. (3) Hypertension: Continue carvedilol, amlodipine, doxazosin. (4) Fever: Spiked fever evening of 10/05. Chest x-ray showed ?? infiltrate left base, but no cough and lungs clear. Patient reports occasional voiding with chronic dysuria. Possible UTI as discussed below. Developed erythema and tenderness left antecubital fossa at IV site. Suspected suppurative phlebitis with bacteremia as discussed below. (5) Bacteremia due to Staphylococcus aureus: Developed erythema and tenderness left antecubital fossa at IV site. Blood cultures obtained and empiric IV antibiotic therapy with vancomycin and cefepime initiated. 2 of 2 blood cultures from 10/05 grew gram-positive cocci. PCR's-staph aureus, not MRSA. Antibiotic therapy de-escalated with discontinuation of cefepime; IV vancomycin continued. Final report from blood cultures - MSSA. Beta lactams probably ideal drugs of choice for MSSA, but vancomycin may be more pragmatic with hemodialysis. Discussed with Nephrology and Pharmacy. Cefazolin has advantage of q 24 hr dosing compared to nafcillin q 4 hours and should be as effective. Checking repeat blood cultures to confirm clearance of bacteremia- blood cultures from 10/07, 10/08, and 10/09 negative so far. Echo - no apparent valvular vegetations. ID recommends minimum of 6 weeks of antibiotic therapy. Case Management consulted to pursue outpatient treatment options. (6) Urinary tract infection: Patient reports occasional voiding with chronic dysuria. UA day of admission showed + leukocytosis, WBC's, bacteria, many epithelial ce lls; urine culture not obtained at that time. Repeat UA 10/05 showed similar findings. Urine culture growing coag neg Staph. Not certain whether or not bacteruria represents UTI or colonization. Received vancomycin. CT abd & pelvis - circumferential thickening of bladder wall, nonobstructing left renal calculus, no urinary tract obstruction. (7) Nausea & vomiting: Intermittent nausea and vomiting. Probably has gastroparesis (although could not find any gastric emptying scans). Anti-emetics PRN (no ondansetron or other QT-prolonging meds like promethazine). EGD as discussed below. Further evaluation if symptoms persist / worsen. (8) GI bleedin episodes of loose dark stools 10/07. No abdominal pain. Has had several episodes of emesis without les blood or coffee grounds. Hemodynamically stable. Hold clopidogrel (prescribed for TIA). Type and screen pRBC's. Received IV pantoprazole. No further melena. Hgb 10.9 --> --> 8.7 --> --> 10.4. GI consulted. EGD attempted, but very limited due to retained gastric contents. GI recommended clear liquids x 48 hrs followed by repeat EGD, but pt preferred not to pursue. Transition to PO PPI. (9) Acute blood loss anemia: Baseline Hgb 10 - 10.5. Now with GI bleeding. Hgb as low as 8.7. Acute blood loss anemia due to GI bleeding. No transfusion necessary at this time. Follow H/H. (10) Anemia in ESRD (end-stage renal disease): Anemia of chronic kidney disease. Baseline hemoglobin 10 - 10.5. Now with acute blood loss anemia due to GI bleeding as discussed below. Follow. (11) Fall: Suspected fall, but patient not 100% certain whether he fell or not. Fall possibly secondary to hypoglycemia. PT/OT discussed; patient does not feel that therapies are necessary. (12) Pain of left upper extremity: Suspected infected IV site left antecubital fossa. Swelling of left forearm 10/07. Venous duplex LUE - superficial phlebitis. Soft tissue US - soft tissue edema, no abscess. (13) DVT prophylaxis: Anticoagulants not utilized due to possible head injury + GI bleed. SCDs ordered. Ambulate. (14) Discharge planning issues: Anticipated discharge to home. Best option for outpatient IV antibiotic therapy to be determined. Family Medicine follow-up with Dr. Coffey. Diabetes management per [facility]. Admission and Anticipated Discharge Date Admission Date: October 03, 2019 Subjective Recheck for multiple problems. Patient seen in their room around 1340. No fever for last 2-3 days. Left arm feels better. No nausea, vomiting, abdominal pain, melena, hematochezia. Blood sugar high this morning; patient not sure why. He would like to use his continuous glucose monitor from home. Review of Systems: Constitutional- as noted above. Cardiac- no chest pain. Pulmonary- no cough. GI- as noted above. - oliguric. Otherwise, as noted above. Physical Exam Constitutional: no acute distress Respiratory: no respiratory distress Auscultation: lungs clear to auscultation bilaterally Cardiovascular: Rate/Rhythm: regular rate and regular rhythm Vessels: no JVD Extremities: no calf tenderness and no edema Gastrointestinal (Abdomen): normal bowel sounds, soft, nontender, no hepatosplenomegaly Musculoskeletal: Extremities: + extremities abnormal to inspection (swelling L forearm (improved); erythema L antecubital fossa (improved)) and no cyanosis Skin: no rashes, warm and dry Psychiatric: Orientation: alert and oriented x 3 Results & Data ([facility]) Vital Signs (Past 12 Hours) Vital Signs Temp Pulse Pulse Resp BP Pulse Ox 10/12/19 11:43 36.5 C 59 L 18 137/81 99 10/12/19 07:56 36.8 C 70 18 167/81 H 94 10/12/19 07:29 68 10/12/19 04:09 36.9 C 66 20 175/90 H 96 Laboratory Results 10/12/19 08:07 10/12/19 08:07 (1) Fall Encounter type: initial encounter Qualified Code(s): W19.XXXA - Unspecified fall, initial encounter
[2019-10-12] MEDS: HEPARIN SOD (PORCINE) 1000 UNIT/ML 10 ML VIAL IV SCH (14:51)
--- NOTE | 2019-10-12 18:44 | Nephrology Progress Note ---
Date of Service October 12, 2019 Assessment & Plan (1) Dialysis patient, noncompliant: ESRD on PD but now w/ modality switch to HD and for HD at d/c. No concerns for peritonitis; many concerns however that he is simply not doing txs prior to admission. Marked worsening of OP labs past 2 months. He has functional AV fistula -plan to transition back to in center HD at [facility] at d/ with first treatment October 17 Next hemodialysis treatment for -Patient will after discharge flush PD catheter and change dressing weekly > last done 10/09 >> until PD cath can be removed after d/c>> we will order ED catheter removal after discharge -pt refuses 1.5L fluid limit earlier this admission; but I did reorder that today (2) Anemia in ESRD (end-stage renal disease): t stn 29% this month TERRI as indicated w/ HD monitor hgb daily w/ heme + stool; on protonix; has been fairly stable (3) Labile essential hypertension: Blood pressure is elevated >> for HD today and improved afterward; cont current meds; complicated by pain/N frequently (4) Bacteremia: Due to MSSA attributed to suppurative phlebitis at L AC IV site. for 6 wks ancef 1 g daily. F resolved now. has mid-line like catheter that can be used x 4 wks Admission and Anticipated Discharge Date Admission Date: October 03, 2019 Subjective Seen on evening rounds today at approximately 1730 after completing dialysis. Less headache today than on prior treatments. Nausea has resolved. No dyspnea Review of Systems Review of Systems: All systems reviewed & are unremarkable except as noted in HPI & below Physical Exam Constitutional: well developed and well nourished; no acute distress Eyes: EOM intact bilaterally ENMT: Ears: no external ear abnormality Nose: no external nose abnormality Mouth: + dry oral mucous membranes Neck: no nuchal rigidity Respiratory: normal respiratory effort; no respiratory distress and no labored breathing Auscultation: lungs clear to auscultation bilaterally and + diminished lung sounds Cardiovascular: Rate/Rhythm: regular rate and regular rhythm Extremities: + AV fistula (+ t/b); no edema Gastrointestinal (Abdomen): Inspection/Auscultation: normal bowel sounds Percussion/Palpation: abdomen soft; abdomen nontender Musculoskeletal: Extremities: strength 5/5 throughout Skin: no rashes, warm and dry Psychiatric: Orientation: alert and oriented x 3 Speech: normal rate/rhythm/volume of speech (some hoarseness) Affect: + flat affect Insight: + impaired insight Judgement: + impaired judgement Results & Data ([facility]) Vital Signs (Past 12 Hours) Vital Signs Temp Pulse Pulse Pulse Resp BP BP 10/12/19 18:03 62 10/12/19 17:57 57 L 10/12/19 17:48 37.0 C 58 L 152/82 H 10/12/19 17:00 58 L 154/81 H 10/12/19 16:42 58 L 152/82 H 10/12/19 16:23 58 L 150/83 H 10/12/19 16:00 58 L 143/83 H 10/12/19 15:40 57 L 154/81 H 10/12/19 15:20 56 L 149/81 H 10/12/19 15:17 36.7 C 61 18 123/69 10/12/19 15:02 56 L 142/79 H 10/12/19 14:20 37.0 C 86 10/12/19 11:43 36.5 C 59 L 18 137/81 10/12/19 07:56 36.8 C 70 18 167/81 H 10/12/19 07:29 68 Pulse Ox 10/12/19 18:03 10/12/19 17:57 10/12/19 17:48 10/12/19 17:00 10/12/19 16:42 10/12/19 16:23 10/12/19 16:00 10/12/19 15:40 10/12/19 15:20 10/12/19 15:17 96 10/12/19 15:02 10/12/19 14:20 10/12/19 11:43 99 10/12/19 07:56 94 10/12/19 07:29 Laboratory Results 10/12/19 08:07 10/12/19 08:07
[2019-10-12] MEDS: DOXAZosin MESYLATE TAB 2 MG TAB PO SCH (21:05)
[2019-10-12] MEDS: ATORVASTATIN 40 MG TAB PO SCH (21:05)
[2019-10-12] MEDS: TRAZODONE HCL 50 MG TAB PO SCH (21:06)
[2019-10-12] MEDS: ROPINIROLE HCL 0.25 MG TABLET PO SCH (21:06)
[2019-10-12] MEDS: INSULIN GLARGINE SOLOSTAR 100 UNITS/ML 3 ML PEN SC SCH (21:08)
[2019-10-12] MEDS: CEFAZOLIN 1000MG 1,000 MG/7.5 ML SYR IV SCH (21:08)
[2019-10-13] MEDS: CHOLECALCIFEROL 1,000 UNITS 25 MCG TAB PO SCH (08:30)
[2019-10-13] MEDS: carvediloL 25 MG TAB PO SCH ×2 (08:32→20:57)
[2019-10-13] MEDS: AMLODIPINE BESYLATE 5 MG TAB PO SCH (08:32)
[2019-10-13] MEDS: HydrALAZINE TAB 50 MG TAB PO SCH ×2 (08:32→20:57)
[2019-10-13] MEDS: PANTOprazole 40 MG TAB PO SCH ×2 (08:32→20:57)
[2019-10-13] MEDS: VELPHORO PO SCH ×3 (08:33→16:52)
[2019-10-13] MEDS: CALCIUM CARBONATE 500 MG CHEWABLE TAB PO SCH ×2 (08:33→16:51)
[2019-10-13] MEDS: CALCIUM ACETATE 667 MG CAP PO SCH ×3 (08:34→16:52)
[2019-10-13] MEDS: INSULIN ASPART 100 UNITS/ML 3 ML PEN SC SCH ×4 (08:36→20:53)
--- NOTE | 2019-10-13 11:18 | Hospitalist Progress Note ---
Date of Service October 13, 2019 Assessment & Plan (1) End-stage renal disease (ESRD): Worsening renal function despite peritoneal dialysis. Hemodialysis initiated. Ongoing management per Nephrology. 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 Severe hypoglycemia (30) at home. Patient attributes hypoglycemic episode at home to missed meal. Hemoglobin A1c 8.3. Blood sugars fluctuating due to acute illness and variable PO intake. Pharmacy consulted for glycemic management. FBS this morning = 136. (3) Hypertension: Continue carvedilol, amlodipine, doxazosin. (4) Fever: Spiked fever evening of 10/05. Chest x-ray showed ?? infiltrate left base, but no cough and lungs clear. Patient reports occasional voiding with chronic dysuria. Possible UTI as discussed below. Developed erythema and tenderness left antecubital fossa at IV site. Suspected suppurative phlebitis with bacteremia as discussed below. (5) Bacteremia due to Staphylococcus aureus: Developed erythema and tenderness left antecubital fossa at IV site. Blood cultures obtained and empiric IV antibiotic therapy with vancomycin and cefepime initiated. 2 of 2 blood cultures from 10/05 grew gram-positive cocci. PCR's-staph aureus, not MRSA. Antibiotic therapy de-escalated with discontinuation of cefepime; IV vancomycin continued. Final report from blood cultures - MSSA. Beta lactams probably ideal drugs of choice for MSSA, but vancomycin may be more pragmatic with hemodialysis. Discussed with Nephrology and Pharmacy. Cefazolin has advantage of q 24 hr dosing compared to nafcillin q 4 hours and should be as effective. Checking repeat blood cultures to confirm clearance of bacteremia- blood cultures from 10/07, 10/08, and 10/09 remain negative so far. Echo - no apparent valvular vegetations. ID recommends minimum of 6 weeks of antibiotic therapy. Case Management consulted to pursue outpatient treatment options. (6) Urinary tract infection: Patient reports occasional voiding with chronic dysuria. UA day of admission showed + leukocytosis, WBC's, bacteria, many epithelial cells; urine culture not obtained at that time. Repeat UA 10/05 showed similar findings. Urine culture growing coag neg Staph. Not certain whether or not bacteruria represents UTI or colonization. Received vancomycin. CT abd & pelvis - circumferential thickening of bladder wall, nonobstructing left renal calculus, no urinary tract obstruction. (7) GI bleedin episodes of loose dark stools 10/07. No abdominal pain. Has had several episodes of emesis without les blood or coffee grounds. Hemodynamically stable. Hold clopidogrel (prescribed for TIA). Type and screen pRBC's. Received IV pantoprazole. No further melena. Hgb 10.9 --> --> 8.7 --> --> 10.4. GI consulted. EGD attempted, but very limited due to retained gastric contents. GI recommended clear liquids x 48 hrs followed by repeat EGD, but pt preferred not to pursue. Transition to PO PPI. (8) Acute blood loss anemia: Baseline Hgb 10 - 10.5. Now with GI bleeding. Hgb as low as 8.7. Acute blood loss anemia due to GI bleeding. No transfusion necessary at this time. Follow H/H. (9) Anemia in ESRD (end-stage renal disease): Anemia of chronic kidney disease. Baseline hemoglobin 10 - 10.5. Now with acute blood loss anemia due to GI bleeding as discussed below. Follow. (10) Fall: Suspected fall, but patient not 100% certain whether he fell or not. Fall possibly secondary to hypoglycemia. PT/OT discussed; patient does not feel that therapies are necessary. Ambulating independently without difficulty. (11) Pain of left upper extremity: Suspected infected IV site left antecubital fossa. Swelling of left forearm 10/07. Venous duplex LUE - superficial phlebitis. Soft tissue US - soft tissue edema, no abscess. (12) DVT prophylaxis: Anticoagulants not utilized due to possible head injury + GI bleed. SCDs ordered. Ambulate. (13) Discharge planning issues: Anticipated discharge to home. Best option for outpatient IV antibiotic therapy to be determined. Case Management assisting with plans. Tentative plan is to DC Wednesday after dose of cefazolin in the afternoon, start MTU dosing MWFSu starting 09/24, start dosing with hemodialysis TuThSa x 5 more weeks, last dose Sat 11/17. Family Medicine follow-up with Dr. Coffey. Diabetes management per [facility]. Admission and Anticipated Discharge Date Admission Date: October 03, 2019 Subjective Recheck for multiple problems. Patient seen in their room around 1030. No fever for last few days (last temp 10/09). Left arm feels better. No nausea, vomiting, abdominal pain, melena, hematochezia. Blood sugars better today. Ambulating. Review of Systems: Constitutional- as noted above. Cardiac- no chest pain. Pulmonary- rare cough, no SOB. GI- as noted above. - oliguric. Otherwise, as noted above. Physical Exam Constitutional: no acute distress Respiratory: no respiratory distress Auscultation: lungs clear to auscultation bilaterally Cardiovascular: Rate/Rhythm: regular rate and regular rhythm Vessels: no JVD Extremities: no calf tenderness and no edema Gastrointestinal (Abdomen): normal bowel sounds, soft, nontender, no hepatosplenomegaly Musculoskeletal: Extremities: + extremities abnormal to inspection (swelling L forearm (improved); erythema L antecubital fossa (improved)) and no cyanosis Skin: no rashes, warm and dry Psychiatric: Orientation: alert and oriented x 3 Results & Data ([facility]) Vital Signs (Past 12 Hours) Vital Signs Temp Pulse Pulse Resp BP BP Pulse Ox 10/13/19 07:18 63 10/13/19 07:08 36.8 C 64 18 152/78 H 96 10/13/19 04:54 36.9 C 60 19 149/77 H 95 10/13/19 00:46 60 Laboratory Results 10/12/19 10/12/19 10/12/19 11:29 17:52 20:23 POC Glucose 187 H 94 137 H 10/13/19 08:07 POC Glucose 136 H (1) Fall Encounter type: initial encounter Qualified Code(s): W19.XXXA - Unspecified fall, initial encounter
--- NOTE | 2019-10-13 14:28 | Pharmacy Report ---
Pharmacy Glycemic Short Note 2 - Date of Service October 13, 2019 - Glycemic Short BSG Results (Last 24 hours): 10/12/19 10/12/19 10/13/19 17:52 20:23 08:07 POC Glucose 94 137 H 136 H 10/13/19 11:48 POC Glucose 112 H OUTPATIENT ANTIDIABETIC REGIMEN: * Lantus 15 units HS * Novolog SS * A1c = 8.3 % 10/04/19 ASSESSMENT: 10/12/19: * BSGs have been very well-controlled for the past 24 hours. * No changes to current regimen at this time. 10/11/19 * Patient was hypoglycemic this morning. Suspect that this is due to the additional basal insulin that has been required the past couple of days. * Will reduce basal insulin this evening back to home dose. 10/10/19 * Fasting BSG is slightly improved today following insulin adjustments, but is still markedly elevated. * Will continue to titrate basal insulin upward. * Novolog parameters appear to be appropriate, but will adjust as needed as basal insulin is adjusted. 10/09/19 * Fasting BSG remains significantly elevated this morning (276 mg/dL). This indicates that basal insulin is still quite inadequate. * BSGs throughout the day are reasonably well-controlled and corrected with current Novolog parameters. * Antibiotics have been switched from Vanc to Ancef and Protonix gtt is no longer infusing. 10/08/19 * Blood sugars looking much better for this patient over past 48 hours, no hypoglycemia, somewhat elevated fasting of 256mg/dl this morning. Patient did start IV Protonix drip yesterday for GI Bleed. Will increase Lantus slight to help cover that dextrose. * No HD today or yesterday, scheduled again for tomorrow. * No further changes needed in insulin regimen at this time. 10/06/19 * 34 year old male admitted with hyperglycemia, noncompliance with PD, started HD while inpatient, received 10/04 and scheduled again for this afternoon. Started IV antibiotics for fever and bacteremia, urine cultures pending. * Brittle type 1 diabetic dx at 13 years of age, with lows in 30's at home. Follows with Yvon at [facility] clinic in [place]. * Blood sugars trending high over past 24 hours, but patient also started having N/V, gastroparesis. * Patient had 7 units of novolog with breakfast to correct for blood sugar of 202mg/dl and cover 52 grams of CHO, but then vomited everything up after eating. Dr Galvez aware. Patient had Phenergan at 0500, trying lorazepam now, pt with QT prolongation. * May need to consider low rate of D5W IV fluids. * No changes in insulin doses at this time, will adjust goal range, will follow trends and adjust conservatively to minimize hyper and hypoglycemia. PLAN FOR INPATIENT GLYCEMIC CONTROL: * Basal insulin * Lantus 15 units SQ HS * Bolus insulin * NovoLog per scale ACHS or Q6hrs while NPO * Goal Range: Low 120 mg/dL - High 160 mg/dL - change to try to prevent hypoglycemia * Correction Factor: 30 mg/dL/unit * Nutritional / Prandial insulin per carb ratio of 1 unit per 7 grams CHO consumed Discharge planning: * Unable to interpret A1c in the setting of dialysis, but expect that patient may resume home regimen on discharge (as long as he does not report having extreme hyperglycemia or periods of hypoglycemia on current regimen). * Continue to f/u with outpt providers as patient acclimates to the new change from PD to HD.
--- NOTE | 2019-10-13 17:26 | Nephrology Progress Note ---
Date of Service October 13, 2019 Assessment & Plan (1) Dialysis patient, noncompliant: ESRD on PD but now w/ modality switch to HD and for HD at d/c. No concerns for peritonitis; many concerns however that he is simply not doing txs prior to admission. Marked worsening of OP labs past 2 months. He has functional AV fistula -transition back to in center HD at [facility] at d/ with first treatment October 17 Next hemodialysis treatment for to be done here >>> Patient with history of headaches on dialysis which have been severe. He has been seen by neurology in the past for this. Recommend resuming tizanidine 2 mg which is to be taken every 6 hours as needed including predialysis as well as postdialysis and up to 3 tablets in 24 hours--I will order this for HD treatment tomorrow; please discharge patient on this medication -Discharge summary updated to recommend follow-up with neurology in November or December -Patient will after discharge flush PD catheter and change dressing weekly > last done 10/09 >> until PD cath can be removed after d/c>> we will order ED catheter removal after discharge -pt refuses 1.5L fluid limit earlier this admission; but I did reorder that today (2) Anemia in ESRD (end-stage renal disease): t stn 29% this month TERRI as indicated w/ HD monitor hgb daily w/ heme + stool; on protonix; has been fairly stable (3) Labile essential hypertension: Blood pressure is elevated at times>> for hemodialysis tomorrow; cont current meds; complicated by pain/N frequently (4) Bacteremia: Due to MSSA attributed to suppurative phlebitis at L AC IV site. for 6 wks ancef 1 g daily. F resolved now. has mid-line like catheter that can be used x 4 wks Admission and Anticipated Discharge Date Admission Date: October 03, 2019 Subjective Seen on rounds today at about 730. Enjoying breakfast at bedside. No nausea or vomiting. No shortness of breath. No edema Denies voiding complaints Review of Systems Review of Systems: All systems reviewed & are unremarkable except as noted in HPI & below Physical Exam Constitutional: well developed and well nourished; no acute distress Sitting on side of the bed on room air Eyes: EOM intact bilaterally ENMT: Ears: no external ear abnormality Nose: no external nose abnormality Mouth: + dry oral mucous membranes Neck: no nuchal rigidity Respiratory: normal respiratory effort; no respiratory distress and no labored breathing Auscultation: lungs clear to auscultation bilaterally and + diminished lung sounds Cardiovascular: Rate/Rhythm: regular rate and regular rhythm Extremities: + AV fistula (+ t/b); no edema Gastrointestinal (Abdomen): Inspection/Auscultation: normal bowel sounds Percussion/Palpation: abdomen soft; abdomen nontender Musculoskeletal: Extremities: strength 5/5 throughout Skin: no rashes, warm and dry Psychiatric: Orientation: alert and oriented x 3 Speech: normal rate/rhythm/volume of speech (some hoarseness) Affect: + flat affect Insight: + impaired insight Judgement: + impaired judgement Results & Data ([facility]) Vital Signs (Past 12 Hours) Vital Signs Temp Pulse Pulse Resp BP BP Pulse Ox 10/13/19 15:35 61 10/13/19 15:24 36.8 C 60 15 134/87 138/78 97 10/13/19 12:22 36.7 C 59 L 20 128/78 98 10/13/19 07:18 63 10/13/19 07:08 36.8 C 64 18 152/78 H 96 Laboratory Results 10/12/19 08:07 10/12/19 08:07
[2019-10-13] MEDS ORDERED: TIZANIDINE HCL 4 MG TABLET PO PRN (17:28)
[2019-10-13] MEDS: INSULIN GLARGINE SOLOSTAR 100 UNITS/ML 3 ML PEN SC SCH (20:54)
[2019-10-13] MEDS: CEFAZOLIN 1000MG 1,000 MG/7.5 ML SYR IV SCH (20:56)
[2019-10-13] MEDS: ATORVASTATIN 40 MG TAB PO SCH (20:57)
[2019-10-13] MEDS: ROPINIROLE HCL 0.25 MG TABLET PO SCH (20:57)
[2019-10-13] MEDS: DOXAZosin MESYLATE TAB 2 MG TAB PO SCH (20:57)
[2019-10-13] MEDS: TRAZODONE HCL 50 MG TAB PO SCH (20:57)
[2019-10-13] MEDS: ZOLPIDEM TARTRATE 5 MG TAB PO PRN (21:10)
[2019-10-14] MEDS ORDERED: LORazepam 0.5 MG TAB PO STA (00:57)
[2019-10-14] MEDS ORDERED: HEPARIN SOD (PORCINE) 1000 UNIT/ML 10 ML VIAL IV ONE (07:00)
[2019-10-14] MEDS ORDERED: SODIUM CHLORIDE 0.9% 1000ML 1,000 ML IV PRN (07:00)
[2019-10-14] MEDS ORDERED: EPOETIN ALFA 10,000 UNITS/ML VIAL IV ONE (07:00)
[2019-10-14 07:23] LABS: Basophils # (auto) 0.06 K/uL (0-0.2); Basophils % (auto) 0.9 %; Eosinophils # (auto) 0.23 K/uL (0-0.5); Eosinophils % (auto) 3.5 %; Hematocrit (blood only) 31.9 % (42-52); Hemoglobin 10.3 g/dL (14.0-18.0); Immature Granulocytes # (auto) 0.02 K/uL (0.00-0.02); Immature Granulocytes % (auto) 0.3 %; Lymphocytes # (auto) 1.53 K/uL (1.2-3.4); Lymphocytes % (auto) 23.3 %; Mean Corpuscular Hemoglobin 29.5 pg (25-34); Mean Corpuscular Hgb Conc 32.3 g/dL (32-36); Mean Corpuscular Volume 91.4 fL (80-100); Mean Platelet Volume 9.8 fL (7.4-10.4); Monocytes % (auto) 19.8 %; Neutrophils # (auto) 3.42 K/uL (1.4-6.5); Neutrophils % (auto) 52.2 %; Platelet Count 348 K/uL (130-400); RDW Coefficient of Variation 13.9 % (11.5-14.5); RDW Standard Deviation 46.5 fL (36.4-46.3); Red Blood Count 3.49 M/uL (4.7-6.1); White Blood Count 6.56 K/uL (4.8-10.8)
[2019-10-14 08:07] LABS: Alanine Aminotransferase < 6 U/L (12-78); Albumin Globulin Ratio 0.6 (0.9-2); Albumin Level 2.5 gm/dl (3.4-5.0); Alkaline Phosphatase 54 U/L (45-117); Aspartate Aminotransferase 10 U/L (15-37); BUN Creatinine Ratio 5.6 (10-20); Bilirubin Direct < 0.1 mg/dl (0-0.2); Bilirubin,Total 0.3 mg/dl (0.2-1); Blood Urea Nitrogen 55 mg/dl (7-18); Calcium 9.6 mg/dl (8.5-10.1); Carbon Dioxide 27 mmol/L (21-32); Chloride 99 mmol/L (98-107); Creatinine Clr Calc Pharmacy 10.7 ml/min; Est GFR (African American) 7.2; Est GFR (Non-African American) 6.2; Globulin 4.1 gm/dl (2.5-4.0); Glucose 84 mg/dl (70-99); Potassium 4.2 mmol/L (3.5-5.1); Sodium 134 mmol/L (136-145); Total Protein 6.6 gm/dl (6.4-8.2)
[2019-10-14] MEDS: AMLODIPINE BESYLATE 5 MG TAB PO SCH (08:23)
[2019-10-14] MEDS: carvediloL 25 MG TAB PO SCH ×2 (08:23→21:52)
[2019-10-14] MEDS: HydrALAZINE TAB 50 MG TAB PO SCH ×2 (08:23→21:50)
[2019-10-14] MEDS: VELPHORO PO SCH ×3 (08:24→17:15)
[2019-10-14] MEDS: CALCIUM ACETATE 667 MG CAP PO SCH ×3 (08:24→17:15)
[2019-10-14] MEDS: CHOLECALCIFEROL 1,000 UNITS 25 MCG TAB PO SCH (08:25)
[2019-10-14] MEDS: PANTOprazole 40 MG TAB PO SCH ×2 (08:25→21:54)
[2019-10-14] MEDS: CALCIUM CARBONATE 500 MG CHEWABLE TAB PO SCH ×2 (08:25→17:16)
[2019-10-14] MEDS: INSULIN ASPART 100 UNITS/ML 3 ML PEN SC SCH ×4 (08:25→21:56)
[2019-10-14] MEDS: HEPARIN SOD (PORCINE) 1000 UNIT/ML 10 ML VIAL IV SCH ×3 (10:40→17:08)
[2019-10-14] MEDS ORDERED: EPOETIN ALFA 10,000 UNITS/ML VIAL IV SCH (11:30)
--- NOTE | 2019-10-14 14:44 | Hospitalist Progress Note ---
Date of Service October 14, 2019 Assessment & Plan (1) End-stage renal disease (ESRD): End-stage renal disease, was on peritoneal dialysis, admitted with worsening of renal function, electrolyte imbalance Started with hemodialysis, Patient will be transition back to hemodialysis at 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 Hemoglobin A1c 8.3. Appreciate pharmacy input for glycemic management (3) Hypertension: Patient was noted to be hypertensive, blood pressure improved after dialysis Continue carvedilol, amlodipine, doxazosin. (4) Fever: (5) Bacteremia due to Staphylococcus aureus: M SSA-bacteremia Developed erythema and tenderness left antecubital fossa at IV site-infection Blood cultures obtained and empiric IV antibiotic therapy with vancomycin and ce fepime initiated. Discussed with Nephrology and Pharmacy. Patient is continued with Ancef Checking repeat blood cultures to confirm clearance of bacteremia- blood cultures from 10/07, 10/08, and 10/09 remain negative so far. Echo - no apparent valvular vegetations. Patient will need minimum 6-week of antibiotic therapy, appreciate ID input Arrangements made for outpatient IV antibiotic therapy (6) Urinary tract infection: Patient reports occasional voiding with chronic dysuria. UA day of admission showed + leukocytosis, WBC's, bacteria, many epithelial cells; urine culture not obtained at that time. Repeat UA 10/05 showed similar findings. Urine culture growing coag neg Staph. Not certain whether or not bacteruria represents UTI or colonization. Received vancomycin. CT abd & pelvis - circumferential thickening of bladder wall, nonobstructing left renal calculus, no urinary tract obstruction. (7) GI bleeding: No further episode of GI bleed, hemoglobin remained stable Due to have episodes of loose dark stools 10/07. No abdominal pain. No further melena. Hgb 10.9 --> --> 8.7 --> --> 10.4. GI consulted. EGD attempted, but very limited due to retained gastric contents. GI recommended clear liquids x 48 hrs followed by repeat EGD, but pt preferred not to pursue. Continue on p.o. PPI (8) Acute blood loss anemia: Baseline Hgb 10 - 10.5. Developed acute blood loss anemia secondary to GI bleed, (9) Anemia in ESRD (end-stage renal disease): Anemia of chronic kidney disease. Baseline hemoglobin 10 - 10.5. Nephrology following, retroperitoneal will be given as indicated with dialysis (10) Fall: (11) Pain of left upper extremity: Suspected infected IV site left antecubital fossa. Swelling of left forearm 10/07. Venous duplex LUE - superficial phlebitis. Soft tissue US - soft tissue edema, no abscess. (12) DVT prophylaxis: Anticoagulants not utilized due to possible head injury + GI bleed. SCDs ordered. Ambulate. (13) Discharge planning issues: Anticipated discharge to home. Family Medicine follow-up with Dr. Coffey. Diabetes management per [facility]. Admission and Anticipated Discharge Date Admission Date: October 03, 2019 Subjective Sitting up, on edge of bed, denies of any discomfort, no shortness of breath, no fever or chills, no cough Had dialysis earlier today Review of Systems Review of Systems: All systems reviewed & are unremarkable except as noted in HPI & below Constitutional: no fever, no chills and no fatigue Respiratory: no cough, no dyspnea and no dyspnea on exertion Cardiovascular: no chest pain, no dyspnea, no palpitations and no edema Physical Exam Constitutional: no acute distress Eyes: PERRL, conjunctivae normal, anicteric sclerae ENMT: external ear and nose normal, oropharynx normal Neck: trachea midline, no thyromegaly Respiratory: no respiratory distress Auscultation: lungs clear to auscultation bilaterally Cardiovascular: Rate/Rhythm: regular rate and regular rhythm Vessels: no JVD Extremities: no calf tenderness and no edema Gastrointestinal (Abdomen): normal bowel sounds, soft, nontender, no hepatosplenomegaly Musculoskeletal: Extremities: + extremities abnormal to inspection (swelling L forearm (improved); erythema L antecubital fossa (improved)) and no cyanosis Skin: no rashes, warm and dry Psychiatric: Orientation: alert and oriented x 3 Results & Data ([facility]) Vital Signs (Past 12 Hours) Vital Signs Temp Pulse Pulse Resp BP BP BP 10/14/19 12:00 58 L 138/76 10/14/19 11:40 58 L 131/66 10/14/19 11:20 58 L 122/65 10/14/19 11:00 59 L 131/64 10/14/19 10:40 60 129/66 10/14/19 10:20 59 L 132/74 10/14/19 10:00 60 156/80 H 10/14/19 09:42 61 146/85 H 10/14/19 09:34 36.5 C 62 10/14/19 09:28 53 L 10/14/19 08:19 145/79 H 10/14/19 07:38 36.5 C 64 16 191/96 H 10/14/19 04:20 36.9 C 64 19 133/68 Pulse Ox 10/14/19 12:00 10/14/19 11:40 10/14/19 11:20 10/14/19 11:00 10/14/19 10:40 10/14/19 10:20 10/14/19 10:00 10/14/19 09:42 10/14/19 09:34 10/14/19 09:28 10/14/19 08:19 10/14/19 07:38 97 10/14/19 04:20 97 (1) Fall Encounter type: initial encounter Qualified Code(s): W19.XXXA - Unspecified fall, initial encounter
--- NOTE | 2019-10-14 15:34 | Nephrology Progress Note ---
Date of Service October 14, 2019 Assessment & Plan (1) Dialysis patient, noncompliant: ESRD on PD but now w/ modality switch to HD and for HD at d/c. No concerns for peritonitis; many concerns however that he is simply not doing txs prior to admission. Marked worsening of OP labs past 2 months. He has functional AV fistula -transition back to in center HD at [facility] at d/ with first treatment October 17 Patient tolerating hemodialysis well today >>> Patient with history of headaches on dialysis which have been severe. He has been seen by neurology in the past for this. Recommend resuming tizanidine 2 mg which is to be taken every 6 hours as needed including predialysis as well as postdialysis and up to 3 tablets in 24 hours--I will order this for HD treatment tomorrow; please discharge patient on this medication -Discharge summary updated to recommend follow-up with neurology in November or December -Patient will after discharge flush PD catheter and change dressing weekly > last done 10/09 >> until PD cath can be removed after d/c>> we will order ED catheter removal after discharge -pt refuses 1.5L fluid limit earlier this admission; but I did reorder that today (2) Anemia in ESRD (end-stage renal disease): t stn 29% this month TERRI as indicated w/ HD monitor hgb daily w/ heme + stool; on protonix; has been fairly stable (3) Labile essential hypertension: Blood pressure is elevated at times>> improves after hemodialysis; cont current meds; complicated by pain/N frequently (4) Bacteremia: Due to MSSA attributed to suppurative phlebitis at L AC IV site. for 6 wks ancef 1 g daily. F resolved now. has mid-line like catheter that can be used x 4 wks Admission and Anticipated Discharge Date Admission Date: October 03, 2019 Subjective Patient was seen and examined while on dialysis. No SOB or vomiting. No leg swelling. Bp is high Review of Systems Review of Systems: All systems reviewed & are unremarkable except as noted in HPI & below Physical Exam Physical Exam: General exam: Appears comfortable, no acute distress HEENT: Pupils are equal and reactive to light Neck: No JVD, neck is supple trachea is midline Respiratory system: Clear breath sounds bilaterally. Gastrointestinal: Abdomen is soft, non distended, non tender, bowel sounds are present CVS: Regular rate and rhythm. No murmurs, rubs or gallops Musculoskeletal: No joint or muscle tenderness Extremities: Non tender, no edema, peripheral pulses are present Neuro: Oriented, no tremors, no focal neurological deficits Skin: No rashes Access: right UA AVF Results & Data ([facility]) Vital Signs (Past 12 Hours) Vital Signs Temp Pulse Pulse Resp BP BP BP 10/14/19 12:00 58 L 138/76 10/14/19 11:40 58 L 131/66 10/14/19 11:20 58 L 122/65 10/14/19 11:00 59 L 131/64 10/14/19 10:40 60 129/66 10/14/19 10:20 59 L 132/74 10/14/19 10:00 60 156/80 H 10/14/19 09:42 61 146/85 H 10/14/19 09:34 36.5 C 62 10/14/19 09:28 53 L 10/14/19 08:19 145/79 H 10/14/19 07:38 36.5 C 64 16 191/96 H 10/14/19 04:20 36.9 C 64 19 133/68 Pulse Ox 10/14/19 12:00 10/14/19 11:40 10/14/19 11:20 10/14/19 11:00 10/14/19 10:40 10/14/19 10:20 10/14/19 10:00 10/14/19 09:42 10/14/19 09:34 10/14/19 09:28 10/14/19 08:19 10/14/19 07:38 97 10/14/19 04:20 97 Laboratory Results 10/14/19 06:52 10/14/19 10/14/19 06:52 06:52 WBC 6.56 RBC 3.49 L MCV 91.4 MCH 29.5 MCHC 32.3 RDW Std Deviation 46.5 H RDW Coeff of Ralph 13.9 Plt Count 348 MPV 9.8 Albumin 2.5 L
[2019-10-14] MEDS: ROPINIROLE HCL 0.25 MG TABLET PO SCH (21:51)
[2019-10-14] MEDS: DOXAZosin MESYLATE TAB 2 MG TAB PO SCH (21:51)
[2019-10-14] MEDS: TRAZODONE HCL 50 MG TAB PO SCH (21:52)
[2019-10-14] MEDS: ATORVASTATIN 40 MG TAB PO SCH (21:53)
[2019-10-14] MEDS: INSULIN GLARGINE SOLOSTAR 100 UNITS/ML 3 ML PEN SC SCH (21:55)
[2019-10-14] MEDS: ZOLPIDEM TARTRATE 5 MG TAB PO PRN (22:17)
[2019-10-14] MEDS: CEFAZOLIN 1000MG 1,000 MG/7.5 ML SYR IV SCH (22:17)
[2019-10-15] MEDS ORDERED: LORazepam 0.5 MG TAB PO STA (00:23)
[2019-10-15] MEDS: CALCIUM ACETATE 667 MG CAP PO SCH ×2 (08:04→12:09)
[2019-10-15] MEDS: VELPHORO PO SCH ×2 (08:04→12:09)
[2019-10-15] MEDS: CALCIUM CARBONATE 500 MG CHEWABLE TAB PO SCH (08:04)
[2019-10-15] MEDS: carvediloL 25 MG TAB PO SCH (08:05)
[2019-10-15] MEDS: PANTOprazole 40 MG TAB PO SCH (08:05)
[2019-10-15] MEDS: CHOLECALCIFEROL 1,000 UNITS 25 MCG TAB PO SCH (08:05)
[2019-10-15] MEDS: HydrALAZINE TAB 50 MG TAB PO SCH (08:05)
[2019-10-15] MEDS: AMLODIPINE BESYLATE 5 MG TAB PO SCH (08:05)
[2019-10-15] MEDS: INSULIN ASPART 100 UNITS/ML 3 ML PEN SC SCH ×2 (08:05→12:11)
--- NOTE | 2019-10-15 11:32 | Pharmacy Report ---
Glycemic Control Progress Note - Date of Service October 15, 2019 - Scope Glycemic Pharmacist consulted for glycemic control to write orders per [facility] inpatient glycemic control protocol. - Objective Accuchecks BSG(last 24 hours):: 10/14/19 10/14/19 10/14/19 14:12 16:36 20:26 POC Glucose 185 H 196 H 97 10/14/19 10/15/19 10/15/19 21:52 07:34 11:06 POC Glucose 171 H 184 H 291 H HbA1c:: Hemoglobin A1c 8.3 % (4.5-5.6) H 10/04/19 07:35 - Recent Pertinent Medications The patient is currently receiving: * Basal insulin: Lantus 15 units every 24 hours * Correctional Insulin: Novolog Correction per scale ACHS Goal Range: Low 110 mg/dL - High 160 mg/dL Correction Factor: 30 mg/dL/unit * Prandial insulin: Per carb ratio of 1 unit per 7 grams CHO consumed - Outpatient Anti-Diabetic Meds Lantus 15 units qPM + Novolog - Assessment & Plan ASSESSMENT: * See progress note from 10/06/2019 for more background info, in short: * Pt receiving SQ basal bolus insulin regimen for hyperglycemia secondary to baseline DM (outpatient regimen on hold) and infection (on IV Ancef). * Patient is currently receiving an average of ~49 units of insulin per day * 15 units of basal insulin * 34 units of prandial/correctional insulin * BSGs ranging 85 - 185 mg/dl over the past 24hrs * Changes needed to insulin regimen: * AM Fasting BSG = 184 mg/dl. This is slightly goal range for patient based o n inpatient targets and co-morbidities. Will continue with home regimen of Lantus. Patient has had many different fasting BSGs on this Lantus 15 units regimen including 428, 136, 85, and now 184 mg/dL). Will not react at this point. Lantus 20 units is too much as noted by AM hypoglycemia. * Post-prandial BSGs are reasonably controlled. Reduced lower end of the glycemic range to prevent loss of carbohydrate coverage with lower BSGs. BSG elevated at lunch but do not want to tighten right now to prevent stacking. * Total daily dose = 49 units. PLAN FOR INPATIENT GLYCEMIC CONTROL: * Continuing Lantus to 15 units SQ HS * Continuing correction factor of 30 mg/dl/unit * Continuing carb ratio of 1 unit per 7 grams CHO consumed * Continuing goal range of Low 80 mg/dL - High 160 mg/dL RECOMMENDATIONS FOR DISCHARGE: * Continue home regimen and follow-up with outpatient provider. Thank you.
--- NOTE | 2019-10-15 11:47 | Nephrology Progress Note ---
Date of Service October 15, 2019 Assessment & Plan (1) Dialysis patient, noncompliant: ESRD on PD but now w/ modality switch to HD and for HD at d/c. No concerns for peritonitis; many concerns however that he is simply not doing txs prior to admission. Marked worsening of OP labs past 2 months. He has functional AV fistula -transition back to in center HD at [facility] at d/ with first treatment October 17 Patient tolerating hemodialysis well yesterday. Next HD wednesday as out patient >>> Patient with history of headaches on dialysis which have been severe. He has been seen by neurology in the past for this. Recommend resuming tizanidine 2 mg which is to be taken every 6 hours as needed including predialysis as well as postdialysis and up to 3 tablets in 24 hours--I will order this for HD treatment tomorrow; please discharge patient on this medication -Discharge summary updated to recommend follow-up with neurology in November or December -Patient will after discharge flush PD catheter and change dressing weekly > last done 10/09 >> until PD cath can be removed after d/c>> we will order ED catheter removal after discharge (2) Anemia in ESRD (end-stage renal disease): t stn 29% this month TERRI as indicated w/ HD monitor hgb daily w/ heme + stool; on protonix; has been fairly stable (3) Labile essential hypertension: Blood pressure is elevated at times>> improves after hemodialysis; cont current meds; complicated by pain/N frequently (4) Bacteremia: Due to MSSA attributed to suppurative phlebitis at L AC IV site. for 6 wks ancef 1 g daily. has mid-line like catheter that can be used x 4 wks Admission and Anticipated Discharge Date Admission Date: October 03, 2019 Subjective Patient feels well. He had HD yesterday, net UF 3 litres. No SOB Review of Systems Review of Systems: All systems reviewed & are unremarkable except as noted in HPI & below Physical Exam Physical Exam: General exam: Appears comfortable, no acute distress HEENT: Pupils are equal and reactive to light Neck: No JVD, neck is supple trachea is midline Respiratory system: Clear breath sounds bilaterally. Gastrointestinal: Abdomen is soft, non distended, non tender, bowel sounds are present CVS: Regular rate and rhythm. No murmurs, rubs or gallops Musculoskeletal: No joint or muscle tenderness Extremities: Non tender, no edema, peripheral pulses are present Neuro: Oriented, no tremors, no focal neurological deficits Skin: No rashes Access: right AVF, good bruit Results & Data ([facility]) Vital Signs (Past 12 Hours) Vital Signs Temp Pulse Pulse Pulse Pulse Resp BP 10/15/19 09:00 59 L 10/15/19 07:41 37 C 58 L 18 10/15/19 04:34 36.7 C 59 L 15 152/75 H 10/14/19 23:49 37.0 C 66 15 138/76 BP Pulse Ox 10/15/19 09:00 10/15/19 07:41 148/79 H 97 10/15/19 04:34 97 10/14/19 23:49 96 Laboratory Results 10/14/19 06:52
[2019-10-15] MEDS ORDERED: CEFAZOLIN 1000MG 1,000 MG/7.5 ML SYR IV SCH (16:00)
--- NOTE | 2019-10-15 16:09 | Hospitalist Progress Note ---
Date of Service October 15, 2019 Assessment & Plan (1) End-stage renal disease (ESRD): Worsening renal function despite peritoneal dialysis. Hemodialysis initiated. Arrangements to start outpatient hemodialysis at [facility] dialysis [facility] in [place] on 10/17. Ongoing management per Nephrology. 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 Severe hypoglycemia (30) at home. Patient attributes hypoglycemic episode at home to missed meal. Hemoglobin A1c 8.3. Blood sugars fluctuated due to acute illness and variable PO intake. Pharmacy consulted for glycemic management. FBS this morning = 184. Discharge on usual regimen, including continuous glucose monitoring. (3) Hypertension: Continue carvedilol, amlodipine, doxazosin. (4) Fever: Spiked fever evening of 10/05. Chest x-ray showed ?? infiltrate left base, but no cough and lungs clear. Patient reports occasional voiding with chronic dysuria. Possible UTI as discussed below. Developed erythema and tenderness left antecubital fossa at IV site. Suspected suppurative phlebitis with bacteremia as discussed below. (5) Bacteremia due to Staphylococcus aureus: Developed erythema and tenderness left antecubital fossa at IV site. Blood cultures obtained and empiric IV antibiotic therapy with vancomycin and cefepime initiated. 2 of 2 blood cultures from 10/05/19 grew gram-positive cocci. PCR's-staph aureus, not MRSA. Antibiotic therapy de-escalated with discontinuation of cefepime; IV vancomycin initially continued. Final report from blood cultures - MSSA. Beta lactams ideal drugs of choice for MSSA. Discussed with Nephrology and Pharmacy. Cefazolin has advantage of q 24 hr dosing compared to nafcillin q 4 hours and should be as effective. Checked repeat blood cultures to confirm clearance of bacteremia- blood cultures from 10/07, 10/08, and 10/09 remain negative so far. Echo - no apparent valvular vegetations. ID recommends minimum of 6 weeks of antibiotic therapy. Case Management consulted to pursue outpatient treatment options. Arrangements made for cefazolin to be given with dialysis on dialysis days and at [facility] on other days. Last day of treatment 11/18/19. (6) Pain of left upper extremity: Suspected infected IV site left antecubital fossa. Swelling of left forearm 10/07. Venous duplex LUE - superficial phlebitis. Soft tissue US - soft tissue edema, no abscess. (7) Superficial thrombophlebitis of left upper extremity: Venous duplex LUE 10/08/18 demonstrated superficial 5 cm thrombus in the distal cephalic vein extending to the superficial veins in the antecubital fossa. Anticoagulation not indicated due to superficial thrombosis. NSAID's / anticoagulants contra-indicated in light of GI bleeding. Repeat venous duplex as necessary if symptoms / exam worsen. (8) Urinary tract infection: Patient reports occasional voiding with chronic dysuria. UA day of admission showed + leukocytosis, WBC's, bacteria, many epithelial cells; urine culture not obtained at that time. Repeat UA 10/05 showed similar findings. Urine culture growing coag neg Staph. Not certain whether or not bacteruria represents UTI or colonization. Received vancomycin. CT abd & pelvis - circumferential thickening of bladder wall, nonobstructing left renal calculus, no urinary tract obstruction. (9) GI bleedin episodes of loose dark stools 10/07. No abdominal pain. Has had several episodes of emesis without les blood or coffee grounds. Hemodynamically stable. Hold clopidogrel (prescribed for TIA). Type and screen pRBC's. Received IV pantoprazole. No further melena. Hgb 10.9 --> --> 8.7. GI consulted. EGD attempted, but very limited due to retained gastric contents. GI recommended clear liquids x 48 hrs followed by repeat EGD, but pt preferred not to pursue. Transitioned to PO PPI for possible PUD. (10) Acute blood loss anemia: Baseline Hgb 10 - 10.5. Now with GI bleeding. Hgb as low as 8.7. Acute blood loss anemia due to GI bleeding. No transfusion necessary at this time. Hgb 10.3 on 10/14. Follow H/H. (11) Anemia in ESRD (end-stage renal disease): Anemia of chronic kidney disease. Baseline hemoglobin 10 - 10.5. Now with acute blood loss anemia due to GI bleeding as discussed below. Follow. (12) Fall: Suspected fall, but patient not 100% certain whether he fell or not. Fall possibly secondary to hypoglycemia. PT/OT discussed; patient does not feel that therapies are necessary. Ambulating independently without difficulty. (13) DVT prophylaxis: Anticoagulants not utilized due to possible head injury + GI bleed. SCDs ordered. Ambulating. (14) Discharge planning issues: Anticipated discharge to home. Case Management assisted with plans. Outpatient IV cefazolin arranged - [facility] dosing [facility] starting 10/16, start dosing with hemodialysis 10/17 TuThSa x 5 more weeks, last dose Sat 11/17. Weekly CBC with diff, comp metabolic profile, and ESR while receiving cefazolin. Family Medicine follow-up with Dr. Coffey. Nephrology follow-up with Dr. Bains. ID follow-up with Dr. Strong. Diabetes management per [facility]. Admission and Anticipated Discharge Date Admission Date: October 03, 2019 Subjective Recheck for multiple problems. Patient seen in their room around 1400. No fever for last several days (last temp 10/09). Left arm pain continues to improve. No nausea, vomiting, abdominal pain, melena, hematochezia. Ambulating. Ready to go home. Review of Systems: Constitutional- as noted above. Cardiac- no chest pain. Pulmonary- no cough, no SOB. GI- as noted above. - oliguric. Otherwise, as noted above. Physical Exam Constitutional: no acute distress Respiratory: no respiratory distress Auscultation: lungs clear to auscultation bilaterally Cardiovascular: Rate/Rhythm: regular rate and regular rhythm Vessels: no JVD Extremities: no calf tenderness and no edema Gastrointestinal (Abdomen): normal bowel sounds, soft, nontender, no hepatosplenomegaly Musculoskeletal: Extremities: + extremities abnormal to inspection (LUE- decreased erythema, swelling, tenderness antecubital fossa) and no cyanosis palpable superficial venous cord left antecubital fossa / proximal forearm Skin: no rashes, warm and dry Psychiatric: Orientation: alert and oriented x 3 Results & Data ([facility]) Vital Signs (Past 12 Hours) Vital Signs Temp Pulse Pulse Pulse Pulse Pulse Resp 10/15/19 15:49 36.6 C 74 59 L 66 58 L 16 10/15/19 11:53 36.6 C 58 L 16 10/15/19 09:00 59 L 10/15/19 07:41 37 C 58 L 18 10/15/19 04:34 36.7 C 59 L 15 BP BP BP Pulse Ox 10/15/19 15:49 152/75 H 131/76 193/98 H 98 10/15/19 11:53 131/76 98 10/15/19 09:00 10/15/19 07:41 148/79 H 97 10/15/19 04:34 152/75 H 97 Laboratory Results 10/14/19 10/14/19 10/15/19 20:26 21:52 07:34 POC Glucose 97 171 H 184 H 10/15/19 11:06 POC Glucose 291 H (1) Fall Encounter type: initial encounter Qualified Code(s): W19.XXXA - Unspecified fall, initial encounter
--- NOTE | 2019-10-15 18:18 | Discharge Summary ---
Date of Service Date of Admission: 10/03/19 Date of Discharge: 10/15/19 Admission HPI Per Admitting Provider Pt is 34 y/o M with PMH DM I, HTN, ESRD currently on PD, h/o TIA, retinopathy, anemia of chronic disease presented to ER from dialysis for concern for recent falls. Pt previously on HD and reports on PD since 06/2019. He states that does PD nightly. Today he required emergent HD. There is concern by strike planning applications if pt is doing his PD regimen. Pt reports 3 days ago had BSG of 30. He states the next day he noted swelling and redness to right forehead and reports he thinks he fell. Pt reports has continuous BSG monitor however reports "fell off". He states that he has been self adjusting his insulin and decreased his Lantus HS and since he hasn't had low BSGs. Pt states that he has been feeling bad past couple of weeks with increased fatigue and reports SOB with exertion. Pt brings copy of labs from outpatient 2 weeks ago with Ca:6.7, phos 14.7, Cr: 15. Denies fever/chills, diaphoresis, N/V/D/C, LYON, dizziness, vision changes, neck pain, CP, SOB, orthopnea, palpitations, cough, sore throat, choking, otalgia, rhinorrhea, abdominal pain, paresthesias, weakness, extremity weakness, extremity edema, rashes. Principal Diagnosis CKD V with worsening renal function, transitioned from peritoneal dialysis to hemodialysis OTHER ACUTE / NEW DIAGNOSES: suppurative phlebitis left antecubital fossa, probably secondary to IV insertion Staph aureus (MSSA) bacteremia GI bleed, source not determined acute blood loss anemia Discharge Data Allergies Allergy/AdvReac Type Severity Reaction Status Date / Time No Known Allergies Allergy Verified 06/25/19 10:11 Consultations 10/03/19 15:10 ED Decision to Admit Stat 10/03/19 18:01 Consult Case Management - Discharge Planning Routine Consult Nephrology Routine 10/09/19 07:00 Consult Gastroenterology Routine Consult Infectious Diseases Routine Procedures Performed Operation Date: 10/10/19 17:00 Actual Procedures p Esophagogastroduodenoscopy - Killian Alcantara Operation Date: 10/12/19 16:30 <No data on this case meets the specified criteria> Ordered Studies 10/03/19 16:15 CT head/brain wo con Urgent 10/03/19 16:32 CT facial bones wo con Routine 10/08/19 01:21 US extremity nonvascular Urgent US venous doppler UE LT Urgent 10/08/19 17:18 CT abd pelvis wo con Urgent Hospital Course (1) End-stage renal disease (ESRD): Worsening renal function despite peritoneal dialysis. Hemodialysis initiated. Arrangements to start outpatient hemodialysis at [facility] dialysis [facility] in [place] on 10/17. Ongoing management per Nephrology. 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 Severe hypoglycemia (30) at home. Patient attributes hypoglycemic episode at home to missed meal. Hemoglobin A1c 8.3. Blood sugars fluctuated due to acute illness and variable PO intake. Pharmacy consulted for glycemic management. FBS day of discharge was 184. Discharge on usual regimen, including continuous glucose monitoring. Ongoing education / support. (3) Hypertension: Continue carvedilol, amlodipine, doxazosin. (4) Fever: Spiked fever evening of 10/05. Chest x-ray showed ?? infiltrate left base, but no cough and lungs clear. Patient reports occasional voiding with chronic dysuria. Possible UTI as discussed below. Developed erythema and tenderness left antecubital fossa at IV site. Suspected suppurative phlebitis with bacteremia as discussed below. (5) Bacteremia due to Staphylococcus aureus: Developed erythema and tenderness left antecubital fossa at IV site. Blood cultures obtained and empiric IV antibiotic therapy with vancomycin and cefepime initiated. 2 of 2 blood cultures from 10/05/19 grew gram-positive cocci. PCR's-staph aureus, not MRSA. Antibiotic therapy de-escalated with discontinuation of cefepime; IV vancomycin initially continued. Final report from blood cultures - MSSA. Beta lactams ideal drugs of choice for MSSA. Discussed with Nephrology and Pharmacy. Cefazolin has advantage of q 24 hr dosing compared to nafcillin q 4 hours and should be as effective. Checked repeat blood cultures to confirm clearance of bacteremia- blood cultures from 10/07, 10/08, and 10/09 remain negative so far. Echo - no apparent valvular vegetations. ID recommends minimum of 6 weeks of antibiotic therapy. Case Management consulted to pursue outpatient treatment options. Arrangements made for cefazolin to be given with dialysis on dialysis days and at [facility] on other days. Last day of treatment 11/18/19. (6) Pain of left upper extremity: Suspected infected IV site left antecubital fossa. Swelling of left forearm 10/07. Venous duplex LUE - superficial phlebitis. Soft tissue US - soft tissue edema, no abscess. (7) Superficial thrombophlebitis of left upper extremity: Venous duplex LUE 10/08/18 demonstrated superficial 5 cm thrombus in the distal cephalic vein extending to the superficial veins in the antecubital fossa. Anticoagulation not indicated due to superficial thrombosis. NSAID's / anticoagulants contra-indicated in light of GI bleeding. Repeat venous duplex as necessary if symptoms / exam worsen. (8) Urinary tract infection: Patient reports occasional voiding with chronic dysuria. UA day of admission showed + leukocytosis, WBC's, bacteria, many epithelial cells; urine culture not obtained at that time. Repeat UA 10/05 showed similar findings. Urine culture growing coag neg Staph. Not certain whether or not bacteruria represents UTI or colonization. Received vancomycin. CT abd & pelvis - circumferential thickening of bladder wall, nonobstructing left renal calculus, no urinary tract obstruction. (9) GI bleedin episodes of loose dark stools 10/07. No abdominal pain. Has had several episodes of emesis without les blood or coffee grounds. Hemodynamically stable. Hold clopidogrel (prescribed for TIA). Type and screen pRBC's. Received IV pantoprazole. No further melena. Hgb 10.9 --> --> 8.7. GI consulted. EGD attempted, but very limited due to retained gastric contents. GI recommended clear liquids x 48 hrs followed by repeat EGD, but pt preferred not to pursue. Transitioned to PO PPI for possible PUD. (10) Acute blood loss anemia: Baseline Hgb 10 - 10.5. Now with GI bleeding. Hgb as low as 8.7. Acute blood loss anemia due to GI bleeding. No transfusion necessary at this time. Hgb 10.3 on 10/14. Follow H/H. (11) Anemia in ESRD (end-stage renal disease): Anemia of chronic kidney disease. Baseline hemoglobin 10 - 10.5. Superimposed acute blood loss anemia due to GI bleeding as discussed below. Follow. (12) Fall: Suspected fall at home, but patient not 100% certain whether he fell or not. Fall possibly secondary to hypoglycemia. PT/OT discussed; patient does not feel that therapies are necessary. Ambulating independently without difficulty. (13) DVT prophylaxis: Anticoagulants not utilized due to possible head injury + GI bleed. SCDs ordered. Ambulating. (14) Discharge planning issues: Discharged to home. Case Management assisted with plans. Outpatient IV cefazolin arranged - [facility] dosing [facility] starting 10/16, start dosing with hemodialysis 10/17 TuThSa x 5 more weeks, last dose Sat 11/17. Weekly CBC with diff, comp metabolic profile, and ESR while receiving cefazolin. Family Medicine follow-up with Dr. Coffey. Nephrology follow-up with Dr. Bains. ID follow-up with Dr. Strong. Diabetes management per [facility]. Total Time Total Time Spent Total Time Spent (In Minutes): 50 Discharge Plan Discharge Items Patient Disposition: Home - Self-Care Reason For Visit: worsening kidney function Discharge Diagnosis: worsening kidney function Staph infection in blood from intravenous catheter bleeding from stomach or intestine anemia Condition on Discharge: Good Activity: Resume your previous activity Non-emergency contact: Primary Care Provider, Hospitalist, Specialist and Small Stock Facer Call non-emergency contact if: you have any medication questions, your symptoms worsen and your temperature is above 101 Follow-up/Referrals: Radha Strong DO [Physician] - 10/26/19 1:15 pm Kellie Bains MD, PhD [Physician] - (Office will contact you with next appointment.) Ciro Singh MD [Primary Care Provider] - 10/18/19 11:40 am (Your follow up is with Dr Singh on Wednesday10/18/2019 @ 1140. If this appt does not fit your schedule please call [phone] to reschedule. Please arrive 15 minutes prior to your appt time. ) Diet: Carb Count or DM1 and Dialysis Renal Fluids: 1500ml (6 cups) Addtl Attending Provider Instructions: MEDICATION CHANGES: cefazolin (Ancef) 1 gram intravenously daily until 11/18/19Tuesdays, , Saturdays with dialysis Mondays, Wednesdays, Fridays at [facility] at 3:30 PM. Sundays at Medical Treatment Unit at 8:00 AM pantoprazole (Protonix) 40 mg daily for 5 weeks for possible stomach ulcer tizanidine (Zanaflex) 2 mg pills take 1 pill before dialysis treatments to help prevent headache may take 1 pill every 6 hrs after dialysis as needed for headaches maximum dose 3 pills / day SUMMARY OF TEST RESULTS: Blood tests showed worsening kidney function. Blood cultures showed Staph aureus. RECOMMENDATIONS FOR FOLLOW-UP: Hemodialysis at [facility] dialysis [facility] in [place] as scheduled. OTHER INSTRUCTIONS: Keep IV site left arm clean and dry. Seek medical attention if you have: * temperature above 101 * chest pain or trouble breathing * abdominal pain, nausea, vomiting * diarrhea, dark stools or bloody stools * pain, redness, swelling of left arm * any unanswered questions or concerns Call [phone] if symptoms are severe. Please take good care of yourself. Call if you have any questions or problems. You can reach a [facility] hospitalist on duty at [facility] 24 hours a day by calling [phone]. My cell # is [phone]. Addtl Stevedoring Superintendent Provider Instructions: -No need to follow-up with Dr. Bains in nephrology clinic since patient will see Dr. Bains at dialysis Recommend tizanidine 2 mg by mouth before dialysis and as needed after dialysis every 6 hours for headache up to 3 tablets daily Recommend follow-up with neurology [facility] group for headaches in November or December after IV antibiotics are complete Patient will be contacted with appointment for PD catheter removal at [facility] as soon as possible after this hospital discharge -last day of IV antibiotics is 11/18/19 Pending Studies at Discharge: No Stand-Alone Forms: My [facility], Smoking Cessation Medications and DC Order Prescriptions: New cefazolin 1 gram recon soln 1 gm IV DAILY 34 Days Qty: 34 RF: 0 pantoprazole 40 mg tablet,delayed release (DR/EC) 40 mg PO HS 35 Days Qty: 35 RF: 0 tizanidine 2 mg tablet See Rx Instructions .ROUTE .COMPLEX Qty: 60 RF: 1 Continued atorvastatin 40 mg tablet 40 mg PO HS RF: 0 clopidogrel 75 mg tablet 75 mg PO QAM RF: 0 calcium acetate(phosphat bind) 667 mg Tablet 2,668 mg PO TIDM RF: 0 cholecalciferol (vitamin D3) [Vitamin D3] 5,000 unit Tablet 5,000 units PO QAM RF: 0 carvedilol 12.5 mg tablet 25 mg PO QAM RF: 0 carvedilol 12.5 mg tablet 37.5 mg PO HS RF: 0 trazodone 50 mg tablet 50 mg PO DAILY RF: 0 calcium carbonate [Tums Ultra] 400 mg calcium (1,000 mg) tablet,chewable 1,600 mg PO BID RF: 0 ropinirole 0.25 mg tablet 0.25 mg PO HS RF: 0 gentamicin 0.1 % cream 1 applic TOPICAL DAILY RF: 0 Lantus Solostar U-100 Insulin 100 unit/mL (3 mL) insulin pen 15 unit SUBCUT PM RF: 0 Velphoro 500 mg tablet,chewable 500 mg PO TIDM RF: 0 amlodipine 10 mg tablet 10 mg PO DAILY RF: 0 insulin aspart U-100 [Novolog U-100 Insulin aspart] 100 unit/mL solution 1 sliding scale dose subcut AC RF: 0 doxazosin 2 mg tablet 2 mg PO HS RF: 0 Discharge Orders: Discharge Order (Routine); Ordered 10/15/19 Ordered By: Bam Galvez Admission Data Admit Date/Time: 10/03/19 16:04 Attending Provider: Bam Galvez Admit Provider: Adam Chin Primary Care Provider: Ciro Singh Other Providers: Adam Chin ; Kellie Bains ; Killian Alcantara ; Radha Strong Other Interventions: Discharge Summary Assessment (RN) Last Done: 10/15/19 15:49 DC Date/Time DO NOT enter until pt leaves facility: 10/15/19 16:06
== END 2019-10-15 16:06 | disposition home or self-care (01) | DRG 299 ==
LOC: ED 13:17 → 2N 16:04 → SUATTDRO 16:04 → 2N 17:57

== ENCOUNTER 2019-11-27 15:29 | Inpatient (IN) ==
[2019-11-27] MEDS ORDERED: SODIUM CHLORIDE 0.9% 1000ML 1,000 ML IV ONE (15:53)
[2019-11-27] MEDS ORDERED: ONDANSETRON INJ 2 MG/ML 2 ML VIAL IV STA (15:53)
[2019-11-27] MEDS ORDERED: FAMOTIDINE 20MG IV PUSH 20 MG/5 ML SYR IV STA ×2 (15:53→18:43)
[2019-11-27 16:14] LABS: Basophils # (auto) 0.06 K/uL (0-0.2); Basophils % (auto) 0.9 %; Eosinophils # (auto) 0.04 K/uL (0-0.5); Eosinophils % (auto) 0.6 %; Hemoglobin 10.2 g/dL (14.0-18.0); Immature Granulocytes # (auto) 0.02 K/uL (0.00-0.02); Immature Granulocytes % (auto) 0.3 %; Lymphocytes # (auto) 1.28 K/uL (1.2-3.4); Lymphocytes % (auto) 18.3 %; Mean Corpuscular Hemoglobin 29.8 pg (25-34); Mean Corpuscular Hgb Conc 32.9 g/dL (32-36); Mean Corpuscular Volume 90.6 fL (80-100); Mean Platelet Volume 9.9 fL (7.4-10.4); Monocytes # (auto) 0.72 K/uL (0.11-0.59); Monocytes % (auto) 10.3 %; Neutrophils # (auto) 4.89 K/uL (1.4-6.5); Neutrophils % (auto) 69.6 %; Platelet Count 226 K/uL (130-400); RDW Standard Deviation 50.1 fL (36.4-46.3); Red Blood Count 3.42 M/uL (4.7-6.1); White Blood Count 7.01 K/uL (4.8-10.8)
--- NOTE | 2019-11-27 16:18 | XRay Report ---
XR chest 1V portable CLINICAL HISTORY: Abdominal pain. COMPARISON STUDY: Chest radiograph October 09, 2019. FINDINGS: Enlargement of the cardiac silhouette is unchanged. There is no pneumothorax or pleural eff usion. No consolidation is noted. There is no evidence for pulmonary edema. No lucency is identified under the hemidiaphragms to suggest pneumoperitoneum on this exam. IMPRESSION: No acute cardiopulmonary findings. Stable enlargement of the cardiac silhouette. ACT 112: Negative or not required by law. Electronically signed by: Sharan Bishop M.D. 11/27/2019 4:16 PM
--- NOTE | 2019-11-27 16:30 | Emergency Department Note ---
Impression & Plan Gastroenteritis, Nausea & vomiting, Hyperglycemia due to type 2 diabetes mellitus ED Provider Note Provider: Colin Hill MD DATE OF SERVICE: 11/27/2019 CHIEF COMPLAINT: Hyperglycemia, nausea vomiting HISTORY OF PRESENT ILLNESS: Patient is a 34-year-old male with a history of recent gram-positive sepsis, end-stage renal disease on hemodialysis, type 1 diabetes presenting today complaining of approximately 3 days of refractory nausea and vomiting. Denies any diarrhea. Denies fever or URI symptoms. Is a little bit of epigastric discomfort and pain. Patient states has not been able to keep down many of his home oral medications. Patient is his blood sugars also been significantly elevated in the spiking at home sometimes reader greater than 600. Patient states he is been using his insulin as directed and not actually eating very much. Patient denies sick contacts. Patient is not been in contact his doctor using any at home medications. Patient's epigastric abdominal pain is fairly constant slightly worse with palpation. Patient states no significant GI bleeding symptomatologies. Patient finished antibiotics approximately a week ago from his recent hospitalization and staph sepsis. Tolerating hemodialysis normally he states. REVIEW OF SYSTEMS: A total of 10 review of systems was obtained and negative except as stated above in the HPI. PAST MEDICAL HISTORY: As noted above MEDICATIONS: Reviewed the nursing notes and significant for insulin SOCIAL HISTORY: Former smoker, single, denies drug abuse PHYSICAL EXAM: GENERAL: alert and oriented in no acute distress on stretcher but fatigued appearing Head: normocephalic and atraumatic EYES: No injection, discharge or icterus. ENT: Mucous membranes pink and moist. LUNGS: Airway patent. No retractions. Breath sounds clear HEART: Regular rate and rhythm. No chest wall tenderness ABDOMEN: Soft with very slight epigastric tenderness. Not peritoneal without rebound. Slight voluntary guarding. SKIN: Acyanotic, warm, dry, without rashes EXTREMITIES: Without swelling, tenderness or deformity with a fistula in the right upper extremity with thrill. NEUROLOGICAL: No focal deficits. No aphasia. No facial droop or slurred speech. Ambulatory. EKG: Normal sinus rhythm at 68 bpm. No PVC. QTC is noted to be somewhat prolonged. Normal axis. No acute ST segment elevation. Some baseline artifact is significantly noted across the precordial leads. CONTINUOUS CARDIAC MONITORING: was ordered and showed a heart rate of 70 bpm in normal sinus rhythm [facility]: [facility]50 Patient was first seen and H&P performed. 1807 Patient reassessed and updated. Patient was no longer vomiting. Glucose increasing, his glucometer is reading 100 points higher than ours. 1829 patient was reassessed. Now feeling significantly nauseous with some GI discomfort in his mid chest. Patient has tried several ice cubes. No vomiting at this time. Discussed with him options. Patient's laboratory studies and imaging reviewed. Differential includes Appendicitis, testicular torsion, infections, diverticulitis, UTI, obstruction, mesenteric ischemia, aortic pathology, inflammatory bowel disease, renal colic, PUD, pancreatitis, biliary pathology, hernia, volvulus, constipation, as well as other pathologies. IMPRESSION/MEDICAL DECISION MAKING: Patient presents complaining of nausea and vomiting symptomatology system slight of gastric discomfort. Denies symptomatology consistent with acute GI bleed. Patient states he is been having some weakness and hyperglycemia episodes. Recent illness and sepsis. Afebrile and not tachycardic upon arrival here. Blood sugars actually improved at this time. Patient states significantly decreased oral intake and not taking his oral medications. Basic labs are completed, EKG, chest x-ray, blood cultures were sent. I doubt sepsis at this point. Patient has no significant leukocytosis. Patient's chest x-ray is clear. Anemia is stable at baseline. Slightly hyperglycemic but not significantly here. Initially given some Zofran and fluid hydration. Laboratory studies here without significant abnormality considering ESRD. He is due for dialysis tomorrow and his creatinine BUN do not surprise me. No significant acidosis and I doubt this is acute DKA. Slight anion gap likely related to his elevated BUN. No evidence again of sepsis and no evidence of hepatitis or pancreatitis. Blood cultures will be pending. Reevaluation the patient still with nausea although vomiting is now improved. Oral trial was initiated with some ice cubes. Patient is calm and is reading about 100 point higher than ours but glucose is increasing to the 250s and is not had anything to eat. On reassessment the patient had significant nausea and some midsternal discomfort related to a trial of ice cubes. As he is not able to tolerate even this do not feel that he has the ability to go home given his medical comorbidities and type 1 diabetes. Discussed with the patient and he was in agreement. Unsure if truly has been having as severe hyperglycemia as his meter says but some is evident. Likely more of a gastroenteritis with this type 1 diabetes presented significant risk as well as medical morbidities for decompensation. Asked the hospitalist to evaluate. DIAGNOSIS: Gastroenteritis, Hyperglycemia related to type 1 diabetes DISPOSITION: Hospitalist will evaluate Patient was agreeable with this plan. 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 Required: No Beliefs That Will Affect Care: None marital status: Single Current Living Situation: Alone current occupational status: employed Other Information That Helps Us Care for You: No Feels Safe at Home: Yes Safety Concerns: Feels Safe At This Time Smoking Status: Former smoker Tobacco Type: cigarettes ; Second Hand Exposure: No ; Hx Alcohol Use: No Hx Substance Use: No Allergies Allergies Allergy/AdvReac Type Severity Reaction Status Date / Time NSAIDS (Non-Steroidal AdvReac RENAL Unverified 11/27/19 17:16 Anti-Inflamma FAILURE Home Meds Home Medications Medication Instructions Recorded Confirmed atorvastatin 40 mg PO HS 09/28/18 11/27/19 calcium acetate(phosphat bind) 2,668 mg PO TIDM 09/28/18 11/27/19 cholecalciferol (vitamin D3) 5,000 units PO QAM 09/28/18 11/27/19 [Vitamin D3] clopidogrel 75 mg PO QAM 09/28/18 11/27/19 doxazosin 2 mg PO HS 12/20/18 11/27/19 insulin aspart U-100 [Novolog 1 sliding scale dose SUBCUT AC 12/20/18 11/27/19 U-100 Insulin aspart] carvedilol 25 mg PO QAM 06/25/19 11/27/19 carvedilol 37.5 mg PO HS 06/25/19 11/27/19 Lantus Solostar U-100 Insulin 15 unit SUBCUT PM 10/03/19 11/27/19 Velphoro 500 mg PO TIDM 10/03/19 11/27/19 calcium carbonate [Tums Ultra] 1,600 mg PO BID 10/03/19 11/27/19 gentamicin 1 applic TOPICAL DAILY 10/03/19 11/27/19 ropinirole 0.25 mg PO HS 10/03/19 11/27/19 trazodone 50 mg PO DAILY 10/03/19 11/27/19 amlodipine 10 mg PO DAILY 10/16/19 11/27/19 Previous Rx's Medication Instructions Recorded tizanidine See Rx Instructions .ROUTE 10/15/19 .COMPLEX #60 tab Results & Data (ED) Vital Signs Vital Signs - 24 hr 11/27/19 15:30 11/27/19 16:07 11/27/19 16:30 Temperature 37 C Temperature Source Oral Pulse Rate 69 70 72 Pulse Rate from SpO2 Sensor 70 72 Respiratory Rate 18 16 20 Respiratory Effort / Characteristics Non-Labored Respiratory Depth Normal Respiratory Pattern Regular Blood Pressure 115/70 171/87 H 162/87 H Blood Pressure Mean 85 116 126 Pulse Oximetry 97 98 96 Oxygen Delivery Method Room Air Room Air Room Air Sepsis Recent Fever Within 48 Hours No Sepsis Action Taken by Nursing No Action Required 11/27/19 17:00 11/27/19 17:30 11/27/19 18:00 Temperature Temperature Source Pulse Rate 76 77 80 Pulse Rate from SpO2 Sensor 77 77 80 Respiratory Rate 21 20 16 Respiratory Effort / Characteristics Respiratory Depth Respiratory Pattern Blood Pressure 157/89 H 169/94 H 157/86 H Blood Pressure Mean 123 129 116 Pulse Oximetry 95 95 96 Oxygen Delivery Method Room Air Room Air Room Air Sepsis Recent Fever Within 48 Hours Sepsis Action Taken by Nursing 11/27/19 18:30 11/27/19 19:00 11/27/19 19:30 Temperature Temperature Source Pulse Rate 79 80 79 Pulse Rate from SpO2 Sensor 78 80 79 Respiratory Rate 19 17 16 Respiratory Effort / Characteristics Respiratory Depth Respiratory Pattern Blood Pressure 160/87 H 160/90 H 149/108 H Blood Pressure Mean 121 123 123 Pulse Oximetry 98 97 98 Oxygen Delivery Method Room Air Room Air Room Air Sepsis Recent Fever Within 48 Hours Sepsis Action Taken by Nursing 11/27/19 20:00 Temperature Temperature Source Pulse Rate 79 Pulse Rate from SpO2 Sensor 80 Respiratory Rate 20 Respiratory Effort / Characteristics Respiratory Depth Respiratory Pattern Blood Pressure 154/84 H Blood Pressure Mean 106 Pulse Oximetry 96 Oxygen Delivery Method Room Air Sepsis Recent Fever Within 48 Hours Sepsis Action Taken by Nursing Laboratory Data Result diagrams: 11/27/19 15:50 11/27/19 15:50 Lab Results 11/27/19 11/27/19 11/27/19 Range/Units 15:50 15:50 15:55 WBC 7.01 (4.8-10.8) K/uL RBC 3.42 L (4.7-6.1) M/uL Hgb 10.2 L (14.0-18.0) g/dL Hct 31.0 L (42-52) % MCV 90.6 (80-100) fL MCH 29.8 (25-34) pg MCHC 32.9 (32-36) g/dL RDW Std Deviation 50.1 H (36.4-46.3) fL RDW Coeff of Ralph 15.0 H (11.5-14.5) % Plt Count 226 (130-400) K/uL MPV 9.9 (7.4-10.4) fL Immature Gran % (Auto) 0.3 % Neut % (Auto) 69.6 % Lymph % (Auto) 18.3 % [place] % (Auto) 10.3 % Eos % (Auto) 0.6 % Baso % (Auto) 0.9 % Immature Gran # (Auto) 0.02 (0.00-0.02) K/uL Neut # (Auto) 4.89 (1.4-6.5) K/uL Lymph # (Auto) 1.28 (1.2-3.4) K/uL [place] # (Auto) 0.72 H (0.11-0.59) K/uL Eos # (Auto) 0.04 (0-0.5) K/uL Baso # (Auto) 0.06 (0-0.2) K/uL VBG pH (7.36-7.41) VBG pCO2 (38-50) mmHg VBG pO2 mmHg VBG HCO3 mmol/L VBG O2 Saturation % VBG Base Excess mEq/L Barometric Pressure mm/Hg Sodium 137 (136-145) mmol/L Potassium 3.4 L (3.5-5.1) mmol/L Chloride 93 L (98-107) mmol/L Carbon Dioxide 30 (21-32) mmol/L Anion Gap 14.0 H (3-11) BUN 43 H (7-18) mg/dl Creatinine 10.60 H* (0.6-1.4) mg/dl Est Cr Clr Drug Dosing 9.5 ml/min Est GFR ( Amer) 6.5 Est GFR (Non-Af Amer) 5.6 BUN/Creatinine Ratio 4.0 L (10-20) Glucose 143 H (70-99) mg/dl POC Glucose 142 H (70-99) mg/dl Calcium 9.7 (8.5-10.1) mg/dl Magnesium 2.5 H (1.8-2.4) mg/dl Total Bilirubin 0.6 (0.2-1) mg/dl AST 8 L (15-37) U/L ALT < 6 L (12-78) U/L Alkaline Phosphatase 56 (45-117) U/L Troponin I < 0.015 (0-0.045) ng/ml Total Protein 7.9 (6.4-8.2) gm/dl Albumin 4.3 (3.4-5.0) gm/dl Globulin 3.6 (2.5-4.0) gm/dl Albumin/Globulin Ratio 1.2 (0.9-2) Lipase 57 L (73-393) U/L 11/27/19 11/27/19 11/27/19 Range/Units 16:17 17:46 17:48 WBC (4.8-10.8) K/uL RBC (4.7-6.1) M/uL Hgb (14.0-18.0) g/dL Hct (42-52) % MCV (80-100) fL MCH (25-34) pg MCHC (32-36) g/dL RDW Std Deviation (36.4-46.3) fL RDW Coeff of Ralph (11.5-14.5) % Plt Count (130-400) K/uL MPV (7.4-10.4) fL Immature Gran % (Auto) % Neut % (Auto) % Lymph % (Auto) % [place] % (Auto) % Eos % (Auto) % Baso % (Auto) % Immature Gran # (Auto) (0.00-0.02) K/uL Neut # (Auto) (1.4-6.5) K/uL Lymph # (Auto) (1.2-3.4) K/uL [place] # (Auto) (0.11-0.59) K/uL Eos # (Auto) (0-0.5) K/uL Baso # (Auto) (0-0.2) K/uL VBG pH 7.45 H (7.36-7.41) VBG pCO2 43 (38-50) mmHg VBG pO2 53 mmHg VBG HCO3 29 mmol/L VBG O2 Saturation 85.7 % VBG Base Excess 5.0 mEq/L Barometric Pressure 731.8 mm/Hg Sodium (136-145) mmol/L Potassium (3.5-5.1) mmol/L Chloride (98-107) mmol/L Carbon Dioxide (21-32) mmol/L Anion Gap (3-11) BUN (7-18) mg/dl Creatinine (0.6-1.4) mg/dl Est Cr Clr Drug Dosing ml/min Est GFR ( Amer) Est GFR (Non-Af Amer) BUN/Creatinine Ratio (10-20) Glucose (70-99) mg/dl POC Glucose 227 H 259 H (70-99) mg/dl Calcium (8.5-10.1) mg/dl Magnesium (1.8-2.4) mg/dl Total Bilirubin (0.2-1) mg/dl AST (15-37) U/L ALT (12-78) U/L Alkaline Phosphatase (45-117) U/L Troponin I (0-0.045) ng/ml Total Protein (6.4-8.2) gm/dl Albumin (3.4-5.0) gm/dl Globulin (2.5-4.0) gm/dl Albumin/Globulin Ratio (0.9-2) Lipase (73-393) U/L Administered Medications Discontinued Medications Al Hydrox/Mg Hydrox/Simethicone () 1 dose PO ONE ONE Stop: 11/27/19 18:35 Last Admin: 11/27/19 18:43 Dose: 1 dose Documented by: [id number] Sodium Chloride (Nss 1000ml) 1,000 mls @ 999 mls/hr IV .Q1H1M ONE Stop: 11/27/19 16:53 Last Infusion: 11/27/19 18:25 Dose: 0 mls/hr Documented by: [id number] Admin: 11/27/19 16:13 Dose: 999 mls/hr Documented by: [id number] Famotidine (Pepcid 20mg Iv Push) 20 mg in 5 mls @ 2.5 mls/min IV NOW STA Stop: 11/27/19 15:54 Last Admin: 11/27/19 16:13 Dose: 2.5 mls/min Documented by: [id number] Famotidine (Pepcid 20mg Iv Push) 20 mg in 5 mls @ 2.5 mls/min IV NOW STA Stop: 11/27/19 18:44 Last Admin: 11/27/19 18:57 Dose: Not Given Documented by: Ondansetron HCl (Zofran) 4 mg IV NOW STA Stop: 11/27/19 15:54 Last Admin: 11/27/19 16:13 Dose: 4 mg Documented by: Discharge Plan Visit Data *Final* Discharge Date/Time: 11/27/19 20:44 Chief Complaint: Hyperglycemia Stated Complaint: HYPERGLYCEMIA, NAUSEA ED Provider: Colin Hill Discharge Problem: Gastroenteritis, Nausea & vomiting, Hyperglycemia due to type 2 diabetes mellitus Patient Disposition: Admitted As Inpatient Discharge Instructions Interventions: ED Discharge Assessment Last Done: 11/27/19 20:44 Discharge Problem: Nausea & vomiting Qualifiers: Vomiting type: unspecified Vomiting Intractability: non-intractable Qualified Code(s): R11.2 - Nausea with vomiting, unspecified Hyperglycemia due to type 2 diabetes mellitus Qualifiers: Diabetes mellitus halfway insulin use: with intermodal customer service use Qualified Code(s): E11.65 - Type 2 diabetes mellitus with hyperglycemia
[2019-11-27 16:34] LABS: Oxygen Saturation VBG 85.7 %; pH VBG 7.45 (7.36-7.41)
[2019-11-27 17:26] LABS: Alanine Aminotransferase < 6 U/L (12-78); Albumin Globulin Ratio 1.2 (0.9-2); Albumin Level 4.3 gm/dl (3.4-5.0); Alkaline Phosphatase 56 U/L (45-117); Aspartate Aminotransferase 8 U/L (15-37); Bilirubin,Total 0.6 mg/dl (0.2-1); Blood Urea Nitrogen 43 mg/dl (7-18); Calcium 9.7 mg/dl (8.5-10.1); Carbon Dioxide 30 mmol/L (21-32); Chloride 93 mmol/L (98-107); Creatinine Clr Calc Pharmacy 9.5 ml/min; Est GFR (African American) 6.5; Est GFR (Non-African American) 5.6; Globulin 3.6 gm/dl (2.5-4.0); Glucose 143 mg/dl (70-99); Lipase 57 U/L (73-393); Magnesium 2.5 mg/dl (1.8-2.4); Potassium 3.4 mmol/L (3.5-5.1); Sodium 137 mmol/L (136-145); Total Protein 7.9 gm/dl (6.4-8.2); Troponin I < 0.015 ng/ml (0-0.045)
[2019-11-27] MEDS ORDERED: GI COCKTAIL ED USE PO ONE (18:34)
[2019-11-27] MEDS ORDERED: ACETAMINOPHEN 325 MG TAB PO PRN (20:59)
[2019-11-27] MEDS ORDERED: TIZANIDINE 1 MG TABLET PO PRN (20:59)
[2019-11-27] MEDS ORDERED: ALUMINUM/MAGNESIUM SUSP 30 ML UDC PO PRN (20:59)
[2019-11-27] MEDS ORDERED: PROMETHAZINE HCL 12.5 MG in SODIUM CHLORIDE 0.9% 50 ML IV PRN (20:59)
[2019-11-27] MEDS ORDERED: NITROGLYCERIN SL 0.4 MG/TAB TAB SL PRN (20:59)
[2019-11-27] MEDS ORDERED: INSULIN GLARGINE SOLOSTAR 100 UNITS/ML 3 ML PEN SQ SCH (21:00)
[2019-11-27] MEDS ORDERED: CARBOHYDRATES FOR HYPOGLYCEMIA PO PRN (21:15)
[2019-11-27] MEDS ORDERED: GLUCOSE 10 TABS/TUBE PO PRN (21:15)
[2019-11-27] MEDS ORDERED: GLUCOSE 40% GEL 15 GM TUBE PO PRN (21:15)
[2019-11-27] MEDS ORDERED: DEXTROSE 50% 50 ML SYRINGE IV PRN (21:15)
[2019-11-27] MEDS ORDERED: GLUCAGON FOR INJ 1 MG VIAL IM PRN (21:15)
--- NOTE | 2019-11-27 21:27 | History and Physical Report ---
DATE OF ADMISSION: 11/27/2019 CHIEF COMPLAINT: Nausea, vomiting and abdominal discomfort. HISTORY OF PRESENT ILLNESS: This 34-year-old male with past medical history significant for end-stage renal disease, history of peritoneal dialysis, currently on hemodialysis, history of TIA, history of retinopathy, anemia of chronic kidney disease, type 1 diabetes, currently on Lantus and insulin sliding scale, hyperparathyroidism secondary to renal disease, hypertension, fatty liver, neurogenic bladder, migraines, history of recent MSSA bacteremia, completed a course of antibiotics, presents with few days of nausea, vomiting and abdominal discomfort, he has had several episodes of vomiting, today he vomited 4 times. No blood in his vomitus.Sugars were also running high at home, but in the ER his sugars were okay. He says he is not eating much because of his nausea and vomiting. Denies any diarrhea, no blood in stool or black stools. Does not make any urine. Lives alone. Has some abdominal discomfort in the epigastric region, that has improved now. Denies any cough, no chest pain, no shortness of breath, has some headaches, no blurred vision, no earache, no runny nose, some sore throat from vomiting. No dysphagia. No rash. Currently, resting comfortable and hemodynamically stable. ALLERGIES: NSAIDS. PAST MEDICAL HISTORY: As mentioned above. PAST SURGICAL HISTORY: AV access, EGDs, injection of the eyes, removal of the permanent intraperitoneal catheter, laparoscopic insertion of intraperitoneal catheter, laser trabeculoplasty, partial removal of the eye fluid, removal of the parotid gland on the right side. MEDICATIONS: The patient is on Plavix 75 mg p.o. daily, Lipitor 40 mg p.o. daily, Lantus 50 units p.o. daily, Tums as needed, sucroferric oxyhydroxide 500 mg t.i.d. with meals, Coreg 25 mg in a.m. and 37.5 mg in p.m., Protonix currently not taking, Requip 0.5 mg p.o. at bedtime, insulin sliding scale, doxazosin, Cardura 2 mg p.o. at bedtime, amlodipine 10 mg p.o. daily, trazodone 50 mg p.o. at bedtime, Zanaflex 2 mg 1 tablet every 6 hours p.r.n., take pre-dialysis and repeat post-dialysis, may repeat once in 6 hours, limited to 3 tablets in 24 hours, PhosLo 2668 mg t.i.d. with meals, vitamin D 5000 units p.o. daily. FAMILY HISTORY: Significant for mother has hypertension. Maternal grandfather has diabetes. Maternal grandmother has diabetes. Paternal grandmother had diabetes. SOCIAL HISTORY: Single, former smoker, quit in 2017, smoked 1 pack a day for 23 years. Alcohol, currently not drinking. No drug use. REVIEW OF SYMPTOMS: As per HPI. Rest of review of symptoms negative. PHYSICAL EXAMINATION: GENERAL: The patient is of moderate build, not in acute distress. VITAL SIGNS: Temperature 37, pulse 80, respiratory rate 17, blood pressure 116/90, oxygen 97% room air. HEENT: Pupils equal, round, reactive to light. NECK: No JVD, no neck masses. CARDIOVASCULAR: S1, S2 heard, regular rate and rhythm, no murmur, no gallop. RESPIRATORY SYSTEM: Normal AP diameter. No respiratory accessory muscle use. No wheezing, no crackles. ABDOMEN: Soft, bowel sounds present. Mild epigastric discomfort. No guarding. No rigidity. CENTRAL NERVOUS SYSTEM: Cranial nerves II-XII grossly intact. Nonfocal. EXTREMITIES: No edema, no erythema. LABORATORY DATA: WBC 7, hemoglobin 10.2, hematocrit 31, platelets 226. Venous blood gas pH of 7.45, pCO2 of 43, pO2 of 53, bicarbonate 29. Sodium 137, potassium 3.4, chloride 93, bicarbonate 30, BUN 43, creatinine 10.6, glucose 43, calcium 9.7, magnesium 2.5, total bilirubin 0.6, AST 8, ALT less than 6, alkaline phosphatase 56, troponin I less than 0.015. Lipase 57. Chest x-ray, no acute cardiopulmonary findings. Stable enlargement of the cardiac silhouette. ASSESSMENT AND PLAN: A 34-year-old male with a medical history of end-stage renal disease, on hemodialysis, recent MSSA bacteremia, completed antibiotic course, comes to emergency department with persistent nausea, vomiting and abdominal discomfort. 1. Persistent nausea, vomiting and abdominal discomfort, possible gastroenteritis. No diarrhea, possibly peptic ulcer disease. Place him on Protonix po b.i.d., on clear liquid diet and monitor. If no improvement, consult GI. 2. End-stage renal disease on hemodialysis. Consult nephrology. 3. Recent MSSA bacteremia: Completed antibiotic course. 3. Hypertension. Continue home medication of Coreg, amlodipine. We will monitor blood pressure. 4. Restless legs syndrome: Continue ropinirole at bedtime. 5. Anemia of chronic kidney disease: Hemoglobin is stable. We will monitor. 6. Deep venous thrombosis prophylaxis, sequential compression devices for now. 7. Disposition: Close monitoring in the med/surg tele. Level 1 full code. MTDD
[2019-11-27] MEDS: carvediloL 25 MG TAB PO SCH (21:43)
[2019-11-27] MEDS: DOXAZosin MESYLATE TAB 2 MG TAB PO SCH (21:44)
[2019-11-27] MEDS: ROPINIROLE HCL 0.25 MG TABLET PO SCH (21:45)
[2019-11-27] MEDS: ATORVASTATIN 40 MG TAB PO SCH (21:45)
[2019-11-27] MEDS: PANTOprazole 40 MG TAB PO SCH (21:45)
[2019-11-27] MEDS ORDERED: TIZANIDINE HCL 4 MG TABLET PO PRN (22:00)
[2019-11-27] MEDS ORDERED: PHARMACY GLYCEMIC MGMT CONSULT PRN (22:03)
[2019-11-27] MEDS: INSULIN ASPART 100 UNITS/ML 3 ML PEN SC SCH (22:23)
[2019-11-28] MEDS ORDERED: INSULIN ASPART 100 UNITS/ML 3 ML PEN SC SCH (02:00)
[2019-11-28] MEDS ORDERED: TRAMADOL HCL 50 MG TABLET PO STA (03:01)
[2019-11-28] MEDS ORDERED: TIZANIDINE HCL 4 MG TABLET PO SCH (06:00)
[2019-11-28] MEDS: INSULIN ASPART 100 UNITS/ML 3 ML PEN SC SCH ×4 (08:21→20:37)
[2019-11-28] MEDS: carvediloL 25 MG TAB PO SCH ×2 (08:22→20:33)
[2019-11-28] MEDS: CLOPIDOGREL BISULFATE 75 MG TAB PO SCH (08:22)
[2019-11-28] MEDS: PANTOprazole 40 MG TAB PO SCH ×2 (08:22→21:11)
[2019-11-28] MEDS: CALCIUM ACETATE 667 MG CAP/TAB PO SCH ×3 (08:22→19:00)
[2019-11-28] MEDS: AMLODIPINE BESYLATE 5 MG TAB PO SCH (08:23)
[2019-11-28] MEDS: TRAZODONE HCL 50 MG TAB PO SCH (08:23)
[2019-11-28] MEDS: CHOLECALCIFEROL 1,000 UNITS 25 MCG TAB PO SCH (08:24)
[2019-11-28] MEDS: CALCIUM CARBONATE 500 MG CHEWABLE TAB PO SCH ×2 (08:24→20:36)
[2019-11-28] MEDS: GENTAMICIN SULFATE 0.1% CR 15 GM TUBE EXT SCH (08:25)
--- NOTE | 2019-11-28 12:25 | Pharmacy Report ---
Glycemic Control Consultation - Date of Service November 28, 2019 - Scope Scope: Glycemic Pharmacist consulted for glycemic control and to write orders per [facility] inpatient glycemic control protocol. - Objective Weight: 69.8 kg Accuchecks BSG (last 24hrs): 11/27/19 11/27/19 11/27/19 15:50 15:55 17:46 Glucose 143 H POC Glucose 142 H 227 H 11/27/19 11/27/19 11/27/19 17:48 20:35 21:40 Glucose POC Glucose 259 H 319 H* 357 H* 11/28/19 11/28/19 11/28/19 02:04 07:15 11:53 Glucose POC Glucose 205 H 78 94 Laboratory Data (last 24hrs): 11/27/19 15:50 Potassium 3.4 L Carbon Dioxide 30 Anion Gap 14.0 H Creatinine 10.60 H* Est Cr Clr Drug Dosing 9.5 - Recent Pertinent Medications Outpatient Anti-diabetic Regimen: * Lantus 15 units SQ HS * Novolog as needed * A1c is not needed as patient is ESRD The patient is currently receiving: * Basal insulin: Lantus 15 units every 24 hours * Correctional Insulin: Novolog Correction per scale ACHS Goal Range: Low 120 mg/dL - High 150 mg/dL Correction Factor: 30 mg/dL/unit * Prandial insulin: Per carb ratio of 1 unit per 12 grams CHO consumed * Oral Agents: Risk Factors for Insulin Resistance: * Diet: clear liquid diet - Assessment & Plan Assessment & Plan: ASSESSMENT: * Mr Hicks is a well-known type 1 diabetic. He was admitted last night with potential gastroenteritis. Oral intake has decreased significantly. * He received Lantus 15 units last night plus 9 units of Novolog throughout the night. * BSG on admission was 357 mg/dL- 205 mg/dL (at 0200)- 78 mg/dL this morning. Lunch BSG was 94 mg/dL. * Reduce Lantus to 13 units (of note this is the lowest amount of Lantus the patient will receive during his previous hospitalizations .... typically requires around 18-20 units/day). Monitor closely. PLAN FOR INPATIENT GLYCEMIC CONTROL: * Basal insulin * Lantus 13 units SQ daily * Bolus insulin * NovoLog per scale ACHS or Q6hrs while NPO * Goal Range: Low 120 mg/dL - High 150 mg/dL * Correction Factor: 30 mg/dL/unit * Nutritional / Prandial insulin per carb ratio of 1 unit per 12 grams CHO consumed Thank you.
[2019-11-28] MEDS ORDERED: TIZANIDINE HCL 4 MG TABLET PO STA (13:03)
--- NOTE | 2019-11-28 13:56 | Consultation Report ---
DATE OF CONSULTATION: 11/28/2019 NEPHROLOGY CONSULTATION ---ESRD HISTORY OF PRESENT ILLNESS: The patient is a 34-year-old male with type 1 diabetes, end-stage renal disease on hemodialysis Wednesday, , Wednesday, who presented to the hospital because of nausea, vomiting and high glucose. At this time he is already starting to feel better. He did not get dialysis prior to hospitalization; last dialysis was Wednesday without any issues. He has an AV fistula in place. Blood glucose is also getting better now. He denies belly pain, fever or chills, shortness of breath or any other symptoms. REVIEW OF SYSTEMS: Beside the GI symptoms listed above all other systems reviewed and negative. Total 12 systems reviewed. PMH and PSH--reviewed as per HPI. Allergy and meds--reviewed. OBJECTIVE: VITAL SIGNS: Blood pressure 151/78, temperature 36.4 degrees Celsius. He is 96% on room air. HEENT: Mucous membranes moist. NECK: Supple. No jugular venous distention. CHEST: Bilateral clear to auscultation. CARDIOVASCULAR: S1, S2 regular. ABDOMEN: Soft, nontender. EXTREMITIES: Shows no edema. AV fistula with good bruit and thrill. LABORATORY TESTS: Blood work from time of admission showed a hemoglobin of 10.2. Sodium 137, potassium 3.4, BUN 43, creatinine 10.6, glucose 143, magnesium 2.5, lipase 57. Blood glucose most recently 94. Chest x-ray showed no acute findings. ASSESSMENT AND PLAN: 34-year-old with type 1 diabetes with ESRD on hemodialysis, TTS, admitted with nonspecific nausea, vomiting and high glucose. 1. ESRD: Today is his regular dialysis day. We will do him for 3 hours on a 2k bath and take about 2-2.5 kilo off. We will use his AV fistula heparin and epogen will be as per outpatient prescription. 2. Nausea, vomiting. It appears to be very nonspecific. Symptoms have already improved dramatically and does not appear to be anything serious. Defer to primary team. RONNAD
--- NOTE | 2019-11-28 15:04 | Electrocardiogram Report ---
Test Reason : Blood Pressure : / mmHG Vent. Rate : 068 BPM Atrial Rate : 068 BPM P-R Int : 164 ms QRS Dur : 108 ms QT Int : 508 ms P-R-T Axes : 037 023 053 degrees QTc Int : 540 ms Poor data quality, interpretation may be adversely affected Normal sinus rhythm Prolonged QT Abnormal ECG When compared with ECG of 03-OCT-2019 14:04, No significant change was found Confirmed by Tyler Kennedy ([id number]) on 11/28/2019 3:03:48 PM Referred By: REFERRED SELF Confirmed By:Tyler Kennedy
--- NOTE | 2019-11-28 19:13 | Hospitalist Progress Note ---
Date of Service November 28, 2019 Assessment & Plan (1) Nausea & vomiting: presented with intractable nausea /vomiting unable to keep anything down for 2 days no fever or chills no sick contact possible diabetic gastroparesis ? GI symptoms has resolved was on clears , tolerating well diet advanced to renal /DM diet ESRD ON HD : s/p schedule HD today TYPE 1 DM WITH COMPLICATION : pharmacy following for glycemic management FULL CODE Admission and Anticipated Discharge Date Admission Date: November 27, 2019 Subjective had dialyisis today feels much better no nausea /vomiting or abdominal pain tolerating clears advanced to solid no complain of chest pain , SOB no cough , no fever or chills Review of Systems Review of Systems: All systems reviewed & are unremarkable except as noted in HPI & below Physical Exam Constitutional: WD/WN, vitals as above + ill appearing; no acute distress Eyes: PERRL, conjunctivae normal, anicteric sclerae ENMT: external ear and nose normal, oropharynx normal Neck: trachea midline, no thyromegaly Respiratory: normal respiratory effort, lungs clear to auscultation Cardiovascular: RRR, no murmur, no edema Gastrointestinal (Abdomen): normal bowel sounds, soft, nontender, no hepatosplenomegaly Musculoskeletal: no cyanosis or clubbing, extremities motor strength 5/5 Neurologic: PERRL, EOMI, accommodation nl, no face palsy, no dysarthria Psychiatric: A+Ox3, euthymic affect Results & Data Results & Data ([facility] [place]) Vital Signs (Past 12 Hours) Vital Signs Temp Pulse Pulse Resp BP BP Pulse Ox 11/28/19 19:04 36.7 C 66 18 166/85 H 95 11/28/19 18:46 37.0 C 63 152/69 H 11/28/19 18:00 61 142/67 H 11/28/19 17:40 63 149/83 H 11/28/19 17:20 63 158/85 H 11/28/19 16:59 63 162/90 H 11/28/19 16:37 63 164/87 H 11/28/19 16:17 80 158/87 H 11/28/19 16:02 80 154/80 H 11/28/19 15:40 65 158/85 H 11/28/19 15:20 63 157/84 H 11/28/19 15:00 62 150/80 H 11/28/19 14:40 61 151/84 H 11/28/19 14:20 80 154/80 H 11/28/19 14:00 37.0 C 63 11/28/19 11:20 36.4 C L 60 18 151/78 H 96 11/28/19 07:31 69 (1) Nausea & vomiting Vomiting Intractability: non-intractable Vomiting type: unspecified Qualified Code(s): R11.2 - Nausea with vomiting, unspecified
[2019-11-28] MEDS: ATORVASTATIN 40 MG TAB PO SCH (20:33)
[2019-11-28] MEDS: ROPINIROLE HCL 0.25 MG TABLET PO SCH (20:33)
[2019-11-28] MEDS: DOXAZosin MESYLATE TAB 2 MG TAB PO SCH (20:35)
[2019-11-28] MEDS ORDERED: INSULIN GLARGINE SOLOSTAR 100 UNITS/ML 3 ML PEN SQ SCH (21:00)
[2019-11-29] MEDS ORDERED: ZOLPIDEM TARTRATE 5 MG TAB PO PRN (00:04)
[2019-11-29] MEDS: PANTOprazole 40 MG TAB PO SCH (08:12)
[2019-11-29] MEDS: CALCIUM CARBONATE 500 MG CHEWABLE TAB PO SCH (08:12)
[2019-11-29] MEDS: CLOPIDOGREL BISULFATE 75 MG TAB PO SCH (08:12)
[2019-11-29] MEDS: AMLODIPINE BESYLATE 5 MG TAB PO SCH (08:12)
[2019-11-29] MEDS: TRAZODONE HCL 50 MG TAB PO SCH ×2 (08:12→08:31)
[2019-11-29] MEDS: CHOLECALCIFEROL 1,000 UNITS 25 MCG TAB PO SCH (08:13)
[2019-11-29] MEDS: CALCIUM ACETATE 667 MG CAP/TAB PO SCH ×2 (08:13→12:12)
[2019-11-29] MEDS: carvediloL 25 MG TAB PO SCH (08:13)
[2019-11-29] MEDS: INSULIN ASPART 100 UNITS/ML 3 ML PEN SC SCH ×2 (08:39→12:29)
[2019-11-29] MEDS: GENTAMICIN SULFATE 0.1% CR 15 GM TUBE EXT SCH (08:43)
--- NOTE | 2019-11-29 09:20 | Pharmacy Report ---
Pharmacy Glycemic Short Note 2 - Date of Service November 29, 2019 - Glycemic Short BSG Results (Last 24 hours): 11/28/19 11/28/19 11/28/19 11:53 18:50 20:13 POC Glucose 94 113 H 203 H 11/29/19 11/29/19 11/29/19 08:17 08:18 08:37 POC Glucose 44 L* 47 L* 92 OUTPATIENT ANTIDIABETIC REGIMEN: * Lantus 15 units SQ PM * NovoLog per scale with meals * A1c = N/A * Likely somewhat unreliable in ESRD patients d/t interactions between the A1c analyzing technique and high levels of urea in ESRD, reduced RBC life span, iron deficiency anemia, and EPO administration. HbA1c > 7.5% in ESRD patient may overestimate the extent of hyperglycemia in ESRD patients. ASSESSMENT: * 34yo T1DM male well known to pharmacy per previous admissions/glycemic consults. * BSGs running on the "lower" side yesterday, therefore, basal insulin decreased to 13 units last evening (of note this is the lowest amount of Lantus the patient will receive during his previous hospitalizations .... typically requires around 18-20 units/day) * Pt with LOW BSG this AM; 44mg/dl repeat 47 mg/dl. Pt had HS yesterday - typically BSGs can drop after HD but then tend to rise the day after HD. Pt with very brittle DM and high fluctuations in BSGs. Lantus dose was significantly reduced last night but still had a low this AM. Hesitant to decrease dosing much further or rebound severe hyperglycemia will occur. * Will decrease basal insulin slightly from 13 units to 12 units and continue to titrate based on BSG trends. * May need to change NovoLog to Regular insulin which is a better choice for gastroparesis due to its delayed onset and longer duration of action. Will start with one change at a time - decrease basal today and re-evaluate prandial coverage tomorrow. PLAN FOR INPATIENT GLYCEMIC CONTROL: * Basal insulin: decrease * Lantus 12 units SQ HS * Bolus insulin: no change * NovoLog per scale ACHS or Q6hrs while NPO * Goal Range: Low 120 mg/dL - High 150 mg/dL {slightly elevated goal range d/t brittle DM} * Correction Factor: 30 mg/dL/unit * Nutritional / Prandial insulin per carb ratio of 1 unit per 12 grams CHO consumed
[2019-11-29 10:40] LABS: Hematocrit (blood only) 30.7 % (42-52); Hemoglobin 10.2 g/dL (14.0-18.0); Mean Corpuscular Hemoglobin 29.9 pg (25-34); Mean Corpuscular Hgb Conc 33.2 g/dL (32-36); Mean Platelet Volume 9.6 fL (7.4-10.4); Platelet Count 229 K/uL (130-400); RDW Coefficient of Variation 14.7 % (11.5-14.5); RDW Standard Deviation 48.6 fL (36.4-46.3); Red Blood Count 3.41 M/uL (4.7-6.1); White Blood Count 4.83 K/uL (4.8-10.8)
[2019-11-29 11:14] LABS: BUN Creatinine Ratio 3.1 (10-20); Calcium 9.5 mg/dl (8.5-10.1); Creatinine Clr Calc Pharmacy 14.7 ml/min; Est GFR (Non-African American) 9.5; Magnesium 2.4 mg/dl (1.8-2.4); Phosphorus 3.6 mg/dl (2.5-4.9); Potassium 3.7 mmol/L (3.5-5.1)
[2019-11-29] MEDS ORDERED: POTASSIUM CHLORIDE 20 MEQ TABCR PO ONE (14:00)
--- NOTE | 2019-11-29 14:14 | Hospitalist Progress Note ---
Date of Service November 29, 2019 Assessment & Plan (1) Nausea & vomiting: presented with intractable nausea /vomiting unable to keep anything down for 2 days no fever or chills no sick contact possible diabetic gastroparesis ? GI symptoms has resolved was on clears initially, diet advanced to renal/DM diet yesterday, tolerating well ESRD ON HD : Last dialysis yesterday -Continue as his regular schedule, next one on , then Wednesday TYPE 1 DM WITH COMPLICATION : pharmacy following for glycemic management Discussed with the patient recommendations from glycemic pharmacist, this recommendations will be also copied into discharge instructions. Per inpt glycemic pharmacist, patient requires less insulin on dialysis days then on nondialysis days. Patient also says that he already has scheduled appointment with his physician and his glycemic pharmacist and will review everything with them as well. Dispo: plan to d/c home Patient was counseled extensively on COVID-19 pandemic, patient is aware and says that his dialysis center takes precautions. He also stays at home at all times (except for HD) and keeps a distance of 6 feet at least, from other people. FULL CODE Admission and Anticipated Discharge Date Admission Date: November 27, 2019 Subjective Patient is sitting up in bed, in no acute distress. He is tolerating diet. No nausea or vomiting. Had dialysis yesterday. He feels well and is inquiring about going home. Says that he already has set up appointment with his doctor, and also glycemic pharmacist. Discussed that our glycemic pharmacist recommend to change slightly his Lantus, as he seems to need less on his dialysis today and little more on his nondialysis days. This will be copied into his discharge instructions. Patient also denies any chest pain, shortness of breath, abdominal pain, nausea or vomiting. Denies any palpitations, dizziness or lightheadedness. No fevers, chills or cough Review of Systems Review of Systems: All systems reviewed & are unremarkable except as noted in HPI & below Constitutional: no fever and no chills Respiratory: no cough and no dyspnea Cardiovascular: no chest pain, no palpitations and no edema Gastrointestinal: no abdominal pain, no nausea and no vomiting Physical Exam Physical Exam: General: Young thin male, sitting up in bed, in no acute distress Eyes: PERRL, conjunctivae normal, anicteric sclerae ENMT: external ear and nose normal, oropharynx normal Neck: trachea midline, no thyromegaly Respiratory: normal respiratory effort, lungs clear to auscultation, no wheezing, rhonchi or crackles Cardiovascular: RRR, no murmur, no edema Gastrointestinal (Abdomen): normal bowel sounds, soft, nontender, nondistended Musculoskeletal: no cyanosis or clubbing, extremities motor strength 5/5, moves all extremities spontaneously Neurologic: PERRL, EOMI, accommodation nl, no face palsy, no dysarthria, moves all extremities spontaneously Psychiatric: A+Ox3, euthymic affect Results & Data Results & Data ([facility]) Vital Signs (Past 12 Hours) Vital Signs Temp Pulse Pulse Resp BP Pulse Ox 11/29/19 11:21 36.6 C 62 18 182/65 H 94 11/29/19 07:39 36.7 C 59 L 18 160/87 H 98 11/29/19 07:34 59 L 11/29/19 02:40 36.9 C 61 19 151/78 H 93 Laboratory Results 11/29/19 11/29/19 11/29/19 Range/Units 11:45 10:26 10:26 WBC 4.83 (4.8-10.8) K/uL RBC 3.41 L (4.7-6.1) M/uL Hgb 10.2 L (14.0-18.0) g/dL Hct 30.7 L (42-52) % MCV 90.0 (80-100) fL MCH 29.9 (25-34) pg MCHC 33.2 (32-36) g/dL RDW Std Deviation 48.6 H (36.4-46.3) fL RDW Coeff of Ralph 14.7 H (11.5-14.5) % Plt Count 229 (130-400) K/uL MPV 9.6 (7.4-10.4) fL Sodium 137 (136-145) mmol/L Potassium 3.7 (3.5-5.1) mmol/L Chloride 100 (98-107) mmol/L Carbon Dioxide 32 (21-32) mmol/L Anion Gap 5.0 (3-11) BUN 21 H D (7-18) mg/dl Creatinine 6.85 H* D (0.6-1.4) mg/dl Est Cr Clr Drug Dosing 14.7 ml/min Est GFR ( Amer) 11.0 Est GFR (Non-Af Amer) 9.5 BUN/Creatinine Ratio 3.1 L (10-20) Glucose 147 H (70-99) mg/dl POC Glucose 160 H (70-99) mg/dl Calcium 9.5 (8.5-10.1) mg/dl Phosphorus 3.6 (2.5-4.9) mg/dl Magnesium 2.4 (1.8-2.4) mg/dl 11/29/19 11/29/19 11/29/19 Range/Units 08:37 08:18 08:17 WBC (4.8-10.8) K/uL RBC (4.7-6.1) M/uL Hgb (14.0-18.0) g/dL Hct (42-52) % MCV (80-100) fL MCH (25-34) pg MCHC (32-36) g/dL RDW Std Deviation (36.4-46.3) fL RDW Coeff of Ralph (11.5-14.5) % Plt Count (130-400) K/uL MPV (7.4-10.4) fL Sodium (136-145) mmol/L Potassium (3.5-5.1) mmol/L Chloride (98-107) mmol/L Carbon Dioxide (21-32) mmol/L Anion Gap (3-11) BUN (7-18) mg/dl Creatinine (0.6-1.4) mg/dl Est Cr Clr Drug Dosing ml/min Est GFR ( Amer) Est GFR (Non-Af Amer) BUN/Creatinine Ratio (10-20) Glucose (70-99) mg/dl POC Glucose 92 47 L* 44 L* (70-99) mg/dl Calcium (8.5-10.1) mg/dl Phosphorus (2.5-4.9) mg/dl Magnesium (1.8-2.4) mg/dl 11/28/19 11/28/19 Range/Units 20:13 18:50 WBC (4.8-10.8) K/uL RBC (4.7-6.1) M/uL Hgb (14.0-18.0) g/dL Hct (42-52) % MCV (80-100) fL MCH (25-34) pg MCHC (32-36) g/dL RDW Std Deviation (36.4-46.3) fL RDW Coeff of Ralph (11.5-14.5) % Plt Count (130-400) K/uL MPV (7.4-10.4) fL Sodium (136-145) mmol/L Potassium (3.5-5.1) mmol/L Chloride (98-107) mmol/L Carbon Dioxide (21-32) mmol/L Anion Gap (3-11) BUN (7-18) mg/dl Creatinine (0.6-1.4) mg/dl Est Cr Clr Drug Dosing ml/min Est GFR ( Amer) Est GFR (Non-Af Amer) BUN/Creatinine Ratio (10-20) Glucose (70-99) mg/dl POC Glucose 203 H 113 H (70-99) mg/dl Calcium (8.5-10.1) mg/dl Phosphorus (2.5-4.9) mg/dl Magnesium (1.8-2.4) mg/dl Medications Administered Current Inpatient Medications Acetaminophen (Tylenol) 650 mg PO Q4H PRN PRN Reason: Pain or Fever Stop: 12/27/19 20:58 Last Admin: 11/28/19 02:23 Dose: 650 mg Documented by: Al Hydrox/Mg Hydrox/Simethicone (Maalox) 15 ml PO Q4H PRN PRN Reason: Dyspepsia Stop: 12/27/19 20:58 Amlodipine Besylate (Norvasc) 10 mg PO DAILY [facility] Stop: 12/28/19 08:59 Last Admin: 11/29/19 08:12 Dose: 10 mg Documented by: Atorvastatin Calcium (Lipitor) 40 mg PO HS [facility] Stop: 12/27/19 20:59 Last Admin: 11/28/19 20:33 Dose: 40 mg Documented by: Calcium Acetate (Phoslo) 2,668 mg PO TIDM [facility] Stop: 12/28/19 07:59 Last Admin: 11/29/19 12:12 Dose: 2,668 mg Documented by: Calcium Carbonate (Tums) 1,000 mg PO BID [facility]; Protocol Stop: 12/28/19 08:59 Last Admin: 11/29/19 08:12 Dose: 1,000 mg Documented by: Carvedilol (Coreg) 25 mg PO QAM [facility] Stop: 12/28/19 08:59 Last Admin: 11/29/19 08:13 Dose: 25 mg Documented by: Carvedilol (Coreg) 37.5 mg PO [facility] Stop: 12/27/19 20:59 Last Admin: 11/28/19 20:33 Dose: 37.5 mg Documented by: Clopidogrel Bisulfate (Plavix) 75 mg PO QAM [facility] Stop: 12/28/19 08:59 Last Admin: 11/29/19 08:12 Dose: 75 mg Documented by: Dextrose (Dextrose 50%) 25 - 50 ml IV UD PRN; Protocol PRN Reason: Hypoglycemia Protocol Stop: 12/27/19 21:14 Doxazosin Mesylate (Cardura) 2 mg PO [facility] Stop: 12/27/19 20:59 Last Admin: 11/28/19 20:35 Dose: 2 mg Documented by: Gentamicin Sulfate (Garamycin 0.1%) 1 appln EXT DAILY [facility] Stop: 12/08/19 08:59 Last Admin: 11/29/19 08:43 Dose: Not Given Documented by: Glucagon (Glucagen) 1 mg IM UD PRN; Protocol PRN Reason: Hypoglycemia Protocol Stop: 12/27/19 21:14 Glucose (Glucose 40%) 15 - 30 gm PO UD PRN; Protocol PRN Reason: Hypoglycemia Protocol Stop: 12/27/19 21:14 Last Admin: 11/29/19 08:23 Dose: 26 gm Documented by: Glucose (Dex4 Glucose) 4 - 8 tabs PO UD PRN; Protocol PRN Reason: Hypoglycemia Protocol Stop: 12/27/19 21:14 Promethazine HCl 12.5 mg/ (Sodium Chloride) 50.5 mls @ 202 mls/hr IV Q6H PRN PRN Reason: Nausea And Vomiting Stop: 12/27/19 20:58 Last Infusion: 11/27/19 21:54 Dose: Infused Documented by: Insulin Aspart (Novolog Flexpen) 0 units SC ACHS [facility] Stop: 12/27/19 20:59 Last Admin: 11/29/19 12:29 Dose: 6 units Documented by: Insulin Glargine (Lantus Solostar Pen) 12 units SQ PM [facility] Stop: 12/29/19 20:59 Miscellaneous (Order Awaiting Action) 1 ea N/A QS [facility] Stop: 12/28/19 00:00 Last Admin: 11/29/19 08:14 Dose: Not Given Documented by: Miscellaneous (Carbohydrates For Hypoglycemia) 15 - 30 gm PO UD PRN PRN Reason: Hypoglycemia Treatment Stop: 12/27/19 21:14 Last Admin: 11/29/19 08:22 Dose: 26 gm Documented by: Miscellaneous Information (Consult Glycemic Management Pharmacy) 1 ea N/A UD PRN PRN Reason: Consult Stop: 12/27/19 22:02 Nitroglycerin (Nitrostat) 0.4 mg SL UD PRN PRN Reason: Chest Pain Stop: 12/27/19 20:58 Pantoprazole Sodium (Protonix) 40 mg PO BID [facility] Stop: 12/27/19 20:59 Last Admin: 11/29/19 08:12 Dose: 40 mg Documented by: Ropinirole HCl (Requip) 0.25 mg PO HS [facility] Stop: 12/27/19 20:59 Last Admin: 11/28/19 20:33 Dose: 0.25 mg Documented by: Tizanidine HCl (Zanaflex) 2 mg PO Q6H PRN PRN Reason: Headache Stop: 12/27/19 20:58 Trazodone HCl (Desyrel) 50 mg PO DAILY [facility] Stop: 12/28/19 08:59 Last Admin: 11/29/19 08:31 Dose: Not Given Documented by: Vitamin D (Vitamin D3) 5,000 units PO QAM [facility] Stop: 12/28/19 08:59 Last Admin: 11/29/19 08:13 Dose: 5,000 units Documented by: Zolpidem Tartrate (Ambien) 5 mg PO HS PRN PRN Reason: Sleep Stop: 12/29/19 00:03 Last Admin: 11/29/19 00:15 Dose: 5 mg Documented by: (1) Nausea & vomiting Vomiting Intractability: non-intractable Vomiting type: unspecified Qualified Code(s): R11.2 - Nausea with vomiting, unspecified
--- NOTE | 2019-11-29 14:16 | Discharge Summary ---
Date of Service November 29, 2019 Admission HPI Per Admitting Provider This 34-year-old male with past medical history significant for end-stage renal disease, history of peritoneal dialysis, currently on hemodialysis, history of TIA, history of retinopathy, anemia of chronic kidney disease, type 1 diabetes, currently on Lantus and insulin sliding scale, hyperparathyroidism secondary to renal disease, hypertension, fatty liver, neurogenic bladder, migraines, history of recent MSSA bacteremia, completed a course of antibiotics, presents with few days of nausea, vomiting and abdominal discomfort, he has had several episodes of vomiting, today he vomited 4 times. No blood in his vomitus.Sugars were also running high at home, but in the ER his sugars were okay. He says he is not eating much because of his nausea and vomiting. Denies any diarrhea, no blood in stool or black stools. Does not make any urine. Lives alone. Has some abdominal discomfort in the epigastric region, that has improved now. Denies any cough, no chest pain, no shortness of breath, has some headaches, no blurred vision, no earache, no runny nose, some sore throat from vomiting. No dysphagia. No rash. Currently, resting comfortable and hemodynamically stable. Admission Exam Per Admitting Provider GENERAL: The patient is of moderate build, not in acute distress. VITAL SIGNS: Temperature 37, pulse 80, respiratory rate 17, blood pressure 116/90, oxygen 97% room air. HEENT: Pupils equal, round, reactive to light. NECK: No JVD, no neck masses. CARDIOVASCULAR: S1, S2 heard, regular rate and rhythm, no murmur, no gallop. RESPIRATORY SYSTEM: Normal AP diameter. No respiratory accessory muscle use. No wheezing, no crackles. ABDOMEN: Soft, bowel sounds present. Mild epigastric discomfort. No guarding. No rigidity. CENTRAL NERVOUS SYSTEM: Cranial nerves II-XII grossly intact. Nonfocal. EXTREMITIES: No edema, no erythema. Principal Diagnosis Gastritis Hyperglycemia in type I diabetic Discharge Exam General: Young thin male, sitting up in bed, in no acute distress VS: BP 143/78, HR 64, RR 18, Temp. 36.6C, O2 sats 95% on Room Air Eyes: PERRL, EOMI, conjunctivae normal, anicteric sclerae ENMT: external ear and nose normal, oropharynx normal Neck: trachea midline, no thyromegaly Respiratory: normal respiratory effort, lungs clear to auscultation, no wheezing, rhonchi or crackles Cardiovascular: RRR, no murmur, no LE edema b/l Gastrointestinal (Abdomen): normal bowel sounds, soft, nontender, nondistended Musculoskeletal: no cyanosis or clubbing, extremities motor strength 5/5, moves all extremities spontaneously Neurologic: PERRL, EOMI, accommodation nl, no face palsy, no dysarthria, moves all extremities spontaneously Psychiatric: A+Ox3, euthymic affect Discharge Data Allergies Allergy/AdvReac Type Severity Reaction Status Date / Time NSAIDS (Non-Steroidal AdvReac RENAL Unverified 11/27/19 17:16 Anti-Inflamma FAILURE Consultations 11/27/19 18:51 ED Decision to Admit Stat 11/27/19 20:59 Consult Case Management - Discharge Planning Routine 11/28/19 08:00 Consult Nephrology Routine Hospital Course (1) Nausea & vomiting: presented with intractable nausea /vomiting unable to keep anything down for 2 days no fever or chills no sick contact possible diabetic gastroparesis ? GI symptoms has resolved was on clears initially, diet advanced to renal/DM diet yesterday, tolerating well ESRD ON HD : Last dialysis yesterday -Continue as his regular schedule, next one on , then Wednesday TYPE 1 DM WITH COMPLICATION : pharmacy following for glycemic management Discussed with the patient recommendations from glycemic pharmacist, this recommendations will be also copied into discharge instructions. Per inpt glycemic pharmacist, patient requires less insulin on dialysis days then on nondialysis days. Patient also says that he already has scheduled appointment with his physician and his glycemic pharmacist and will review everything with them as well. Glycemic Discharge Recommendations: Xavier is such a brittle diabetic that I think a fluctuating Lantus dose based on HD schedule would be best. His BSGs typically drop after HD and then rise again on non-dialysis days. Therefore, he will need less after HD and more on days between HD sessions. I recommend: HD Days (,, Wed) BSG below 220 = Lantus 12 units BSG 220 or above = Lantus 13 units Non-HD days([place], [place], [place], Fr): BSG below 220 = Lantus 14 units BSG 220 or above = Lantus 15 units The CF/CR combo of 21/08 respectively seems to be working well for him in house and could be continued as an outpatient with NovoLog. Dispo: plan to d/c home Patient was counseled extensively on COVID- pandemic, patient is aware and says that his dialysis center takes precautions. He also stays at home at all times (except for HD) and keeps a distance of 6 feet at least, from other people. Total Time Total Time Spent Total Time Spent (In Minutes): 40 Total Time Includes: Examination of the Patient, Discharge Planning, Medication Reconciliation and Communication With Other Providers Discharge Plan Discharge Items Patient Disposition: Home - Self-Care Reason For Visit: [place],VOMITING,HIGH SUGARS Discharge Diagnosis: Gastritis Hyperglycemia in type I diabetic Activity: As commented below Non-emergency contact: Primary Care Provider and Specialist Call non-emergency contact if: you have any medication questions and your symptoms worsen Follow-up/Referrals: Ciro Singh MD [Primary Care Provider] - 12/05/19 11:20 am Diet: Carb Count or DM1 and Dialysis Renal Addtl Attending Provider Instructions: Please read recommendations regarding your insulin/Lantus use, below. It seems as you need less insulin, on your dialysis days then on your nondialysis days. You should follow-up with your primary care provider, or sugar controller, in next 1 to 2-weeks. Given current COVID- pandemic, it is recommended that you stay at home at all times unless going out for necessities/medical appointments/dialysis. It is highly recommended that you wash her hands often, and keep at least 6 feet dis tance from other people. It is also recommended that you wear face covering/mask when in public. Addtl Strapper And Buffer Provider Instructions: Recommendation regarding insulin (Lantus) HD Days (,, Wed) BSG below 220 = Lantus 12 units BSG 220 or above = Lantus 13 units Non-HD days([place], [place], We, Fr): BSG below 220 = Lantus 14 units BSG 220 or above = Lantus 15 units Pending Studies at Discharge: No Stand-Alone Forms: My [facility] [employer], Smoking Cessation Medications and DC Order Prescriptions: Continued atorvastatin 40 mg tablet 40 mg PO HS RF: 0 clopidogrel 75 mg tablet 75 mg PO QAM RF: 0 calcium acetate(phosphat bind) 667 mg Tablet 2,668 mg PO TIDM RF: 0 cholecalciferol (vitamin D3) [Vitamin D3] 5,000 unit Tablet 5,000 units PO QAM RF: 0 carvedilol 12.5 mg tablet 25 mg PO QAM RF: 0 carvedilol 12.5 mg tablet 37.5 mg PO HS RF: 0 trazodone 50 mg tablet 50 mg PO DAILY RF: 0 calcium carbonate [Tums Ultra] 400 mg calcium (1,000 mg) tablet,chewable 1,600 mg PO BID RF: 0 ropinirole 0.25 mg tablet 0.25 mg PO HS RF: 0 gentamicin 0.1 % cream 1 applic TOPICAL DAILY RF: 0 Velphoro 500 mg tablet,chewable 500 mg PO TIDM RF: 0 tizanidine 2 mg tablet See Rx Instructions .ROUTE .COMPLEX Qty: 60 RF: 1 amlodipine 10 mg tablet 10 mg PO DAILY RF: 0 insulin aspart U-100 [Novolog U-100 Insulin aspart] 100 unit/mL solution 1 sliding scale dose subcut AC RF: 0 doxazosin 2 mg tablet 2 mg PO HS RF: 0 Changed Lantus Solostar U-100 Insulin 100 unit/mL (3 mL) insulin pen 14 unit SUBCUT PM Qty: 0 RF: 0 Discharge Orders: Discharge Order (Routine); Ordered 04/08/20 Ordered By: Ion Penn Admission Data Admit Date/Time: 11/27/19 20:22 Attending Provider: Ion Penn Admit Provider: Crescencio Carter Primary Care Provider: Ciro Singh Other Providers: Kellie Bains ; Des Marcano ; Deyanira Shelley ; Brenda Piedra ; Braulio Henriquez ; Vannesa Young
[2019-11-29] MEDS ORDERED: INSULIN GLARGINE SOLOSTAR 100 UNITS/ML 3 ML PEN SQ SCH (21:00)
== END 2019-11-29 15:16 | disposition home or self-care (01) | DRG 391 ==
LOC: ED 15:29 → SUATTDRO 20:22 → 2N 20:22

== ENCOUNTER 2020-05-01 11:18 | Inpatient (IN) ==
[2020-05-01] MEDS ORDERED: FAMOTIDINE 20MG IV PUSH 20 MG/5 ML SYR IV STA (12:17)
[2020-05-01] MEDS ORDERED: PROCHLORPERAZINE 2 ML IV ONE (12:17)
[2020-05-01] MEDS ORDERED: DiphenhydrAMINE HCL 50 MG/ML VIAL IV STA (12:17)
[2020-05-01] MEDS ORDERED: ALBUTEROL HFA 8 GM INHALER INH PRN (12:17)
[2020-05-01] MEDS ORDERED: DEXAMETHASONE SOD INJ 10 MG/ML VIAL IV ONE (12:18)
[2020-05-01] MEDS ORDERED: guaiFENesin 600 MG TABCR PO STA (12:19)
[2020-05-01] MEDS ORDERED: SODIUM CHLORIDE 0.9% 250 ML IV ONE (12:19)
[2020-05-01 13:00] LABS: iSTAT Creatinine 7.3 mg/dl (0.6-1.3); iSTAT Hemoglobin 9.9 g/dl (14.0-18.0); iSTAT Ionized Calcium 1.07 mmol/l (1.12-1.32); iSTAT Potassium 5.2 mmol/L (3.3-5.0)
--- NOTE | 2020-05-01 13:03 | Emergency Department Note ---
Impression & Plan Sepsis, Pneumonia, Hypoxia, End stage renal disease ED Provider Note NAME: SAVAGE KIDD AGE: 35 SEX: M ARRIVES VIA: Walk-In INFORMANT: Patient, ED PROVIDER(S): Barry Townsend MD CHIEF COMPLAINT: Cough, fevers PLAN: Disposition: Admit. MEDICAL DECISION MAKING: The patient is a pleasant 35-year-old gentleman with a complicated past medical history of IDDM 1, end-stage renal disease disease on dialysis who presents em ergency department with acute onset cough, congestion, fevers with nausea and vomiting that developed since yesterday evening and worsened through today. The patient reports he has gone back to dialysis as scheduled and has not missed any sessions. His last session was yesterday when he was feeling fine. He denies any known contacts with individuals diagnosed with COVID-19. On arrival patient is ill-appearing, actively vomiting with persistent dry cough. He is AFVSS though with mild hypoxia of 88% on RA. EKG without evidence of acute ischemia. CXR with diffuse bilateral interstitial opacities suspicous for pna givent patient's presentation and feverishness. WBC and platelets wnl. H/H similar to prior. Lactate wnl. Chemistry without acidosis. VBG unremarkable. Cr c/w pateint's ESRD on HD. LFTs unremarkable. Troponin negative. Procalcitonin 3.7. Patient treated for suspected early sepsis with Zosyn and Vancomycin. Cough and vomiting improved with duoneb and antiemetics. Covid19 PCR negative. Patient is agreeable with plan for admission. Case was discussed with Dr. Berg, [facility] hospitalist, who will evaluate the patient for admission. Triage Nursing notes reviewed and agree them. Prior medical records reviewed Vital Signs: reviewed and remarkable for no significant abnormalities Differential diagnosis: Viral syndrome, otitis, pharyngitis, pneumonia, influenza, meningitis, urinary tract infection, sepsis, bacteremia, as well as other pathologies. ER treatment provided: See below. Diagnostics interpreted by me: ECG: NSR, 91 bpm, no ectopy, no overt ST elevation or depression. Cardiac Monitoring: An order for continuous cardiac monitoring was placed and demonstrated NSR, 91 bpm, no ectopy Laboratory studies: See below Imaging studies: XR chest 1V portable HISTORY: 35 years-old Male SEPSIS acute sepsis COMPARISON: Chest radiograph 11/27/2019 TECHNIQUE: Portable AP view of the chest FINDINGS: Cardiac silhouette is normal in size. There are new diffuse bilateral interstitial opacities. No pneumothorax, pleural effusion, or lobar airspace consolidation. The bones appear grossly intact. IMPRESSION: Diffuse bilateral interstitial opacities are suspicious for an atypical infectious or inflammatory pneumonitis. Noncardiogenic pulmonary edema could appear similarly. Consultation(s): Case was discussed with Dr. Berg, [facility] hospitalist, who will evaluate the patient for admission. HPI: The patient is a pleasant 35-year-old gentleman with a complicated past medical history of IDDM 1, end-stage renal disease disease on dialysis who presents emergency department with acute onset cough, congestion, fevers with nausea and vomiting that developed since yesterday evening and worsened through today. The patient reports he has gone back to dialysis as scheduled and has not missed any sessions. His last session was yesterday when he was feeling fine. He denies any known contacts with individuals diagnosed with COVID-19. ROS: See above HPI for pertinent positives & negatives. A total of 10 systems reviewed and were otherwise negative. PAST MEDICAL HISTORY:See Below PAST SURGICAL HISTORY:See Below FAMILY HISTORY:See Below SOCIAL HISTORY:See Below HOME MEDICATIONS:See Below ALLERGIES:See Below VITALS:See Below PHYSICAL EXAMINATION: GENERAL: Awake, alert, ill-appearing, in no distress HENT: Normocephalic, atraumatic. Oropharynx with dry mucous membranes and otherwise unremarkable. . EYES: Normal conjunctiva. Sclera non-icteric. NECK: Supple. No nuchal rigidity. FROM. No JVD. RESPIRATORY: Clear to auscultation. CARDIAC: Regular rate, normal rhythm. Extremities warm and well perfused. Pulses equal. RUE fistual with palpable bruit. ABDOMEN: Soft, non-distended. No tenderness to palpation. No rebound or guarding. No masses. RECTAL: Deferred. MUSCULOSKELETAL: Chest examination reveals no tenderness. The back is symmetrical on inspection without obvious abnormality. There is no CVA ten derness to palpation. No joint edema. LOWER EXTREMITIES: Calves are equal size bilaterally and non-tender. No edema. No discoloration. NEURO: Normal sensorium. No sensory or motor deficits noted. SKIN: No rash or jaundice noted. ED COURSE: Critical Care: I have personally spent greater than 55 minutes of critical care time in the direct management of this patient. This includes bedside care, interpretation of diagnostic studies, and testing, discussion with consultants, patient, and family members, and other required patient management activities. This 55 minutes is in excess of all separately billable procedures. Barry Townsend MD Past Med/Surg History Medical History Anemia in ESRD (end-stage renal disease) Bacteremia due to Staphylococcus aureus MSSA bacteremia 10/05/19 treated with cefazolin x 6 wks Charcot foot due to diabetes mellitus Diabetes mellitus type 1 with complications Diabetic nephropathy Diabetic neuropathy Diabetic retinopathy ESRD on dialysis Fatty liver History of peritoneal dialysis Hypertension Nephrotic syndrome due to diabetes mellitus Peritoneal dialysis catheter in place REMOVED 11/10/19 Prolonged QT interval TIA (transient ischemic attack) Surgical History S/P eye surgery Family History Mother Hypertension Grandfather (Maternal) Diabetes Grandmother (Maternal) Diabetes Grandmother (Paternal) Diabetes Social History Smoking Status: Former smoker Second Hand Exposure: No; Hx Alcohol Use: No Hx Substance Use: No Preferred Language: Slovenian Communication Ability: Effective Visual Impairment: Limited 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 Beliefs That Will Affect Care: None marital status: Single Current Living Situation: Alone current occupational status: employed Feels Safe at Home: Yes Safety Concerns: Feels Safe At This Time Allergies Allergies Allergy/AdvReac Type Severity Reaction Status Date / Time NSAIDS (Non-Steroidal AdvReac RENAL Unverified 05/01/20 13:41 Anti-Inflamma FAILURE Home Meds Home Medications Medication Instructions Recorded Confirmed atorvastatin 40 mg PO HS 09/28/18 05/01/20 calcium acetate(phosphat bind) 2,668 mg PO TIDM 09/28/18 05/01/20 cholecalciferol (vitamin D3) 5,000 units PO QAM 09/28/18 05/01/20 [Vitamin D3] clopidogrel 75 mg PO QAM 09/28/18 05/01/20 doxazosin 2 mg PO HS 12/20/18 05/01/20 insulin aspart U-100 [Novolog 1 sliding scale dose SUBCUT AC 12/20/18 05/01/20 U-100 Insulin aspart] carvedilol 25 mg PO QAM 06/25/19 05/01/20 carvedilol 37.5 mg PO HS 06/25/19 05/01/20 ropinirole 0.25 mg PO BID 10/03/19 05/01/20 trazodone 50 mg PO DAILY 10/03/19 05/01/20 amlodipine 10 mg PO DAILY 10/16/19 05/01/20 Lantus Aiyanaostar U-100 Insulin 10 unit SUBCUT PM 05/01/20 05/01/20 hydralazine 25 mg PO BID 05/01/20 05/01/20 valproic acid 250 mg PO UD 05/01/20 05/01/20 Results & Data (ED) Vital Signs Vital Signs - 24 hr 05/01/20 11:24 05/01/20 12:31 05/01/20 12:46 Temperature 37.4 C Temperature Source Oral Pulse Rate 83 Pulse Rate [Apical] Pulse Rate from SpO2 Sensor Pulse Rhythm Regular Respiratory Rate 18 Respiratory Effort / Characteristics Non-Labored Spontaneous Labored SOB on Exertion Blood Pressure 213/95 H Blood Pressure Mean 134 Pulse Oximetry 94 88 L Oxygen Delivery Method Room Air Nasal Cannula Nasal Cannula Oxygen Flow Rate 3 3 Sepsis Recent Fever Within 48 Hours No Sepsis New/Unexplained Change in Mental Status No Sepsis Action Taken by Nursing No Action Required 05/01/20 13:05 05/01/20 13:15 05/01/20 13:16 Temperature Temperature Source Pulse Rate 90 92 H 92 H Pulse Rate [Apical] Pulse Rate from SpO2 Sensor 90 92 H 93 H Pulse Rhythm Respiratory Rate 14 22 21 Respiratory Effort / Characteristics Blood Pressure 193/108 H Blood Pressure Mean 125 Pulse Oximetry 97 92 93 Oxygen Delivery Method Nasal Cannula Oxygen Flow Rate 3 Sepsis Recent Fever Within 48 Hours Sepsis New/Unexplained Change in Mental Status Sepsis Action Taken by Nursing 05/01/20 13:30 05/01/20 13:31 05/01/20 13:45 Temperature Temperature Source Pulse Rate 90 90 88 Pulse Rate [Apical] Pulse Rate from SpO2 Sensor 90 89 88 Pulse Rhythm Respiratory Rate 18 13 19 Respiratory Effort / Characteristics Blood Pressure 186/97 H 183/96 H Blood Pressure Mean 129 123 Pulse Oximetry 93 94 91 Oxygen Delivery Method Oxygen Flow Rate Sepsis Recent Fever Within 48 Hours Sepsis New/Unexplained Change in Mental Status Sepsis Action Taken by Nursing 05/01/20 14:00 05/01/20 14:15 05/01/20 14:30 Temperature Temperature Source Pulse Rate 86 88 88 Pulse Rate [Apical] Pulse Rate from SpO2 Sensor 87 88 89 Pulse Rhythm Respiratory Rate 20 25 H 22 Respiratory Effort / Characteristics Non-Labored SOB on Exertion Blood Pressure 175/94 H 172/101 H 178/94 H Blood Pressure Mean 129 135 128 Pulse Oximetry 91 90 90 Oxygen Delivery Method Nasal Cannula Oxygen Flow Rate 4 Sepsis Recent Fever Within 48 Hours Sepsis New/Unexplained Change in Mental Status Sepsis Action Taken by Nursing 05/01/20 14:38 05/01/20 14:45 05/01/20 15:00 Temperature Temperature Source Pulse Rate 85 87 Pulse Rate [Apical] 85 Pulse Rate from SpO2 Sensor 85 86 Pulse Rhythm Respiratory Rate 16 20 23 Respiratory Effort / Characteristics Spontaneous Blood Pressure 182/92 H 180/86 H Blood Pressure Mean 125 119 Pulse Oximetry 91 97 98 Oxygen Delivery Method Nasal Cannula Oxygen Flow Rate 4 Sepsis Recent Fever Within 48 Hours Sepsis New/Unexplained Change in Mental Status Sepsis Action Taken by Nursing Laboratory Data Attestation: I reviewed the patient's lab results. Result diagrams: 05/01/20 12:49 05/01/20 12:49 Lab Results 05/01/20 05/01/20 05/01/20 Range/Units 12:45 12:45 12:48 WBC (4.8-10.8) K/uL RBC (4.7-6.1) M/uL Hgb (14.0-18.0) g/dL POC Hgb 9.9 L (14.0-18.0) g/dl Hct (42-52) % POC Hct 29 L (42-52) % MCV (80-100) fL MCH (25-34) pg MCHC (32-36) g/dL RDW Std Deviation (36.4-46.3) fL RDW Coeff of Ralph (11.5-14.5) % Plt Count (130-400) K/uL MPV (7.4-10.4) fL Immature Gran % (Auto) % Neut % (Auto) % Lymph % (Auto) % [place] % (Auto) % Eos % (Auto) % Baso % (Auto) % Neut # (Auto) (1.4-6.5) K/uL Lymph # (Auto) (1.2-3.4) K/uL [place] # (Auto) (0.11-0.59) K/uL Eos # (Auto) (0-0.5) K/uL Baso # (Auto) (0-0.2) K/uL Immature Gran # (Auto) (0.00-0.02) K/uL PT (9.0-12.0) Seconds INR (0.9-1.1) APTT (21.0-31.0) Seconds PTT Ratio VBG pH (7.36-7.41) VBG pCO2 (38-50) mmHg VBG pO2 mmHg VBG HCO3 mmol/L VBG O2 Saturation % VBG Base Excess mEq/L Barometric Pressure mm/Hg POC Sodium 138 (135-144) mmol/L Sodium (136-145) mmol/L POC Potassium 5.2 H (3.3-5.0) mmol/L Potassium (3.5-5.1) mmol/L POC Chloride 99 L (101-112) mmol/L Chloride (98-107) mmol/L Carbon Dioxide (21-32) mmol/L POC Total CO2 27 (24-31) mmol/L Anion Gap (3-11) POC Anion Gap 18.0 (16-25) mmol/L POC BUN 55 H (7-18) mg/dl BUN (7-18) mg/dl Creatinine (0.6-1.4) mg/dl POC Creatinine 7.3 H* (0.6-1.3) mg/dl Est Cr Clr Drug Dosing ml/min Est GFR ( Amer) Est GFR (Non-Af Amer) BUN/Creatinine Ratio (10-20) Glucose (70-99) mg/dl POC Glucose (other) 118 H (70-99) mg/dl Lactate (0.4-2.0) mmol/L Calcium (8.5-10.1) mg/dl POC Ioniz Calcium Ale 1.07 L (1.12-1.32) mmol/l Phosphorus (2.5-4.9) mg/dl Magnesium (1.8-2.4) mg/dl Total Bilirubin (0.2-1) mg/dl Direct Bilirubin (0-0.2) mg/dl AST (15-37) U/L ALT (12-78) U/L Alkaline Phosphatase (45-117) U/L Troponin I (0-0.045) ng/ml Total Protein (6.4-8.2) gm/dl Albumin (3.4-5.0) gm/dl Globulin (2.5-4.0) gm/dl Albumin/Globulin Ratio (0.9-2) Procalcitonin (0-0.5) ng/ml COVID-19 Eval Order Covid19 Done at [facility] COVID-19 PCR NEGATIVE (Negative) 05/01/20 05/01/20 05/01/20 Range/Units 12:49 12:49 12:49 WBC 7.23 (4.8-10.8) K/uL RBC 3.04 L (4.7-6.1) M/uL Hgb 9.4 L (14.0-18.0) g/dL POC Hgb (14.0-18.0) g/dl Hct 29.3 L (42-52) % POC Hct (42-52) % MCV 96.4 (80-100) fL MCH 30.9 (25-34) pg MCHC 32.1 (32-36) g/dL RDW Std Deviation 55.3 H (36.4-46.3) fL RDW Coeff of Ralph 16.0 H (11.5-14.5) % Plt Count 174 (130-400) K/uL MPV 10.5 H (7.4-10.4) fL Immature Gran % (Auto) 0.1 % Neut % (Auto) 79.5 % Lymph % (Auto) 9.1 % [place] % (Auto) 10.4 % Eos % (Auto) 0.3 % Baso % (Auto) 0.6 % Neut # (Auto) 5.75 (1.4-6.5) K/uL Lymph # (Auto) 0.66 L (1.2-3.4) K/uL [place] # (Auto) 0.75 H (0.11-0.59) K/uL Eos # (Auto) 0.02 (0-0.5) K/uL Baso # (Auto) 0.04 (0-0.2) K/uL Immature Gran # (Auto) 0.01 (0.00-0.02) K/uL PT 12.2 H (9.0-12.0) Seconds INR 1.2 H (0.9-1.1) APTT 31.1 H (21.0-31.0) Seconds PTT Ratio 1.1 VBG pH (7.36-7.41) VBG pCO2 (38-50) mmHg VBG pO2 mmHg VBG HCO3 mmol/L VBG O2 Saturation % VBG Base Excess mEq/L Barometric Pressure mm/Hg POC Sodium (135-144) mmol/L Sodium (136-145) mmol/L POC Potassium (3.3-5.0) mmol/L Potassium (3.5-5.1) mmol/L POC Chloride (101-112) mmol/L Chloride (98-107) mmol/L Carbon Dioxide (21-32) mmol/L POC Total CO2 (24-31) mmol/L Anion Gap (3-11) POC Anion Gap (16-25) mmol/L POC BUN (7-18) mg/dl BUN (7-18) mg/dl Creatinine (0.6-1.4) mg/dl POC Creatinine (0.6-1.3) mg/dl Est Cr Clr Drug Dosing ml/min Est GFR ( Amer) Est GFR (Non-Af Amer) BUN/Creatinine Ratio (10-20) Glucose (70-99) mg/dl POC Glucose (other) (70-99) mg/dl Lactate (0.4-2.0) mmol/L Calcium (8.5-10.1) mg/dl POC Ioniz Calcium Ale (1.12-1.32) mmol/l Phosphorus (2.5-4.9) mg/dl Magnesium (1.8-2.4) mg/dl Total Bilirubin (0.2-1) mg/dl Direct Bilirubin (0-0.2) mg/dl AST (15-37) U/L ALT (12-78) U/L Alkaline Phosphatase (45-117) U/L Troponin I (0-0.045) ng/ml Total Protein (6.4-8.2) gm/dl Albumin (3.4-5.0) gm/dl Globulin (2.5-4.0) gm/dl Albumin/Globulin Ratio (0.9-2) Procalcitonin 3.77 H (0-0.5) ng/ml COVID-19 Eval Order COVID-19 PCR (Negative) 05/01/20 05/01/20 05/01/20 Range/Units 12:49 12:49 12:49 WBC (4.8-10.8) K/uL RBC (4.7-6.1) M/uL Hgb (14.0-18.0) g/dL POC Hgb (14.0-18.0) g/dl Hct (42-52) % POC Hct (42-52) % MCV (80-100) fL MCH (25-34) pg MCHC (32-36) g/dL RDW Std Deviation (36.4-46.3) fL RDW Coeff of Ralph (11.5-14.5) % Plt Count (130-400) K/uL MPV (7.4-10.4) fL Immature Gran % (Auto) % Neut % (Auto) % Lymph % (Auto) % [place] % (Auto) % Eos % (Auto) % Baso % (Auto) % Neut # (Auto) (1.4-6.5) K/uL Lymph # (Auto) (1.2-3.4) K/uL [place] # (Auto) (0.11-0.59) K/uL Eos # (Auto) (0-0.5) K/uL Baso # (Auto) (0-0.2) K/uL Immature Gran # (Auto) (0.00-0.02) K/uL PT (9.0-12.0) Seconds INR (0.9-1.1) APTT (21.0-31.0) Seconds PTT Ratio VBG pH 7.46 H (7.36-7.41) VBG pCO2 42 (38-50) mmHg VBG pO2 49 mmHg VBG HCO3 29 mmol/L VBG O2 Saturation 82.5 % VBG Base Excess 4.7 mEq/L Barometric Pressure 738.7 mm/Hg POC Sodium (135-144) mmol/L Sodium 138 (136-145) mmol/L POC Potassium (3.3-5.0) mmol/L Potassium 5.1 (3.5-5.1) mmol/L POC Chloride (101-112) mmol/L Chloride 98 (98-107) mmol/L Carbon Dioxide 28 (21-32) mmol/L POC Total CO2 (24-31) mmol/L Anion Gap 12.0 H (3-11) POC Anion Gap (16-25) mmol/L POC BUN (7-18) mg/dl BUN 64 H (7-18) mg/dl Creatinine 7.11 H* (0.6-1.4) mg/dl POC Creatinine (0.6-1.3) mg/dl Est Cr Clr Drug Dosing 14.5 ml/min Est GFR ( Amer) 10.4 Est GFR (Non-Af Amer) 9.0 BUN/Creatinine Ratio 9.0 L (10-20) Glucose 116 H (70-99) mg/dl POC Glucose (other) (70-99) mg/dl Lactate 0.9 (0.4-2.0) mmol/L Calcium 9.3 (8.5-10.1) mg/dl POC Ioniz Calcium Ale (1.12-1.32) mmol/l Phosphorus 4.2 (2.5-4.9) mg/dl Magnesium 2.4 (1.8-2.4) mg/dl Total Bilirubin 0.8 (0.2-1) mg/dl Direct Bilirubin 0.2 (0-0.2) mg/dl AST 17 (15-37) U/L ALT 34 (12-78) U/L Alkaline Phosphatase 64 (45-117) U/L Troponin I < 0.015 (0-0.045) ng/ml Total Protein 7.7 (6.4-8.2) gm/dl Albumin 4.0 (3.4-5.0) gm/dl Globulin 3.7 (2.5-4.0) gm/dl Albumin/Globulin Ratio 1.1 (0.9-2) Procalcitonin (0-0.5) ng/ml COVID-19 Eval Order COVID-19 PCR (Negative) Administered Medications Albuterol (Albut/Ipratrop 3mg/0.5mg Neb 3 Ml Vial) 3 ml NEB QIDR EMERY Stop: 05/31/20 18:59 Last Admin: 05/01/20 19:05 Dose: 3 ml Documented by: [id number] Atorvastatin Calcium (Atorvastatin 40 Mg Tab) 40 mg PO HS EMERY Stop: 05/31/20 20:59 Last Admin: 05/01/20 20:34 Dose: 40 mg Documented by: [id number] Calcium Acetate (Calcium Acetate 667 Mg Cap/Tab) 2,668 mg PO TIDM [facility] Stop: 06/01/20 07:59 Last Admin: 05/01/20 18:41 Dose: 2,668 mg Documented by: [id number] Admin: 05/01/20 18:40 Dose: 2,668 mg Documented by: [id number] Carvedilol (Carvedilol 12.5 Mg Tab) 37.5 mg PO HS [facility] Stop: 05/31/20 20:59 Last Admin: 05/01/20 20:34 Dose: 37.5 mg Documented by: [id number] Doxazosin Mesylate (Doxazosin Mesylate Tab 2 Mg Tab) 2 mg PO HS [facility] Stop: 05/31/20 20:59 Last Admin: 05/01/20 20:33 Dose: 2 mg Documented by: [id number] Hydralazine HCl (Hydralazine Hcl 25 Mg Tab) 25 mg PO BID [facility] Stop: 05/31/20 20:59 Last Admin: 05/01/20 20:33 Dose: 25 mg Documented by: [id number] Piperacillin Sod/Tazobactam (Sod 3.375 gm/ Dextrose) 115 mls @ 28.75 mls/hr IV Q12H [facility]; Protocol Stop: 05/09/20 00:00 Last Admin: 05/02/20 00:05 Dose: 28.8 mls/hr Documented by: [id number] Insulin Aspart (Insulin Aspart 100 Units/Ml 3 Ml Pen) 0 units SC ACHS [facility] Stop: 05/31/20 18:29 Last Admin: 05/01/20 22:11 Dose: 5 units Documented by: [id number] Cosigned by: [id number] Admin: 05/01/20 18:45 Dose: 7 units Documented by: [id number] Cosigned by: [id number] Insulin Aspart (Insulin Aspart 100 Units/Ml 3 Ml Pen) 0 units SC [id number] [facility] Stop: 05/02/20 04:01 Last Admin: 05/02/20 00:05 Dose: 5 units Documented by: [id number] Cosigned by: [id number] Ropinirole HCl (Ropinirole Hcl 0.25 Mg Tablet) 0.25 mg PO BID [facility] Stop: 05/31/20 20:59 Last Admin: 05/01/20 20:34 Dose: 0.25 mg Documented by: [id number] Discontinued Medications Albuterol (Albuterol Hfa 8 Gm Inhaler) 2 puffs INH Q4H PRN PRN Reason: Cough Stop: 05/31/20 12:16 Last Admin: 05/01/20 12:50 Dose: 2 puffs Documented by: [id number] Albuterol (Albut/Ipratrop 3mg/0.5mg Neb 3 Ml Vial) 12 ml NEB ONE ONE Stop: 05/01/20 14:20 Last Admin: 05/01/20 14:36 Dose: 12 ml Documented by: [id number] Dexamethasone (Dexamethasone Sod Inj 10 Mg/Ml Vial) 10 mg IV NOW ONE Stop: 05/01/20 12:19 Last Admin: 05/01/20 12:50 Dose: 10 mg Documented by: [id number] Diphenhydramine HCl (Diphenhydramine Hcl 50 Mg/Ml Vial) 25 mg IV NOW STA Stop: 05/01/20 12:18 Last Admin: 05/01/20 12:50 Dose: 25 mg Documented by: [id number] Guaifenesin (Guaifenesin 600 Mg Tabcr) 600 mg PO NOW STA Stop: 05/01/20 12:20 Last Admin: 05/01/20 12:50 Dose: 600 mg Documented by: [id number] Famotidine (Pepcid 20mg Iv Push) 20 mg in 5 mls @ 2.5 mls/min IV NOW STA Stop: 05/01/20 12:18 Last Admin: 05/01/20 12:50 Dose: 2.5 mls/min Documented by: [id number] Prochlorperazine (Compazine) 2 mls @ 1 mls/min IV ONE ONE Stop: 05/01/20 12:18 Last Admin: 05/01/20 12:50 Dose: 1 mls/min Documented by: [id number] Sodium Chloride (Nss) 250 mls @ 999 mls/hr IV .Q16M ONE Stop: 05/01/20 12:34 Last Infusion: 05/01/20 13:07 Dose: 0 mls/hr Documented by: [id number] Admin: 05/01/20 12:51 Dose: 999 mls/hr Documented by: [id number] Piperacillin Sod/Tazobactam Sod (Zosyn) 4.5 gm in 120 mls @ 240 mls/hr IV NOW ONE Stop: 05/01/20 14:47 Last Infusion: 05/01/20 16:03 Dose: 0 mls/hr Documented by: [id number] Admin: 05/01/20 15:33 Dose: 240 mls/hr Documented by: [id number] Vancomycin HCl 1,500 mg/ (Sodium Chloride) 530 mls @ 200 mls/hr IV NOW ONE Stop: 05/01/20 16:56 Last Infusion: 05/01/20 18:31 Dose: 0 mls/hr Documented by: [id number] Infusion: 05/01/20 16:03 Dose: 200 mls/hr Documented by: [id number] Infusion: 05/01/20 15:33 Dose: 0 mls/hr Documented by: [id number] Admin: 05/01/20 15:22 Dose: 200 mls/hr Documented by: [id number] Insulin Glargine (Insulin Glargine Solostar 100 Units/Ml 3 Ml Pen) 15 units SQ ONE ONE Stop: 05/01/20 22:01 Last Admin: 05/01/20 22:10 Dose: 15 units Documented by: [id number] Cosigned by: [id number] Blood Pressure Blood Pressure Findings: Elevated blood pressure Blood Pressure Disposition: further management by hospitalist Discharge Plan Visit Data Chief Complaint: Cough Stated Complaint: COUGH,CHEST PAIN, SOB ED Provider: Barry Townsend Discharge Problem: Sepsis, Pneumonia, Hypoxia, End stage renal disease Patient Disposition: Admitted As Inpatient Discharge Instructions Interventions: ED Discharge Assessment Last Done: 05/01/20 17:12 Discharge Problem: Sepsis Qualifiers: Sepsis type: sepsis due to unspecified organism Sepsis acute organ dysfunction status: unspecified Qualified Code(s): A41.9 - Sepsis, unspecified organism Pneumonia Qualifiers: Pneumonia type: due to unspecified organism Laterality: bilateral Lung location: lower lobe of lung Qualified Code(s): J18.9 - Pneumonia, unspecified organism
[2020-05-01 13:06] LABS: Base Excess VBG 4.7 mEq/L; Oxygen Saturation VBG 82.5 %; pH VBG 7.46 (7.36-7.41)
--- NOTE | 2020-05-01 13:10 | XRay Report ---
XR chest 1V portable HISTORY: 35 years-old Male SEPSIS acute sepsis COMPARISON: Chest radiograph 11/27/2019 TECHNIQUE: Portable AP view of the chest FINDINGS: Cardiac silhouette is normal in size. There are new diffuse bilateral interstitial opacities. No pneu mothorax, pleural effusion, or lobar airspace consolidation. The bones appear grossly intact. IMPRESSION: Diffuse bilateral interstitial opacities are suspicious for an atypical infectious or inf lammatory pneumonitis. Noncardiogenic pulmonary edema could appear similarly. ACT 112: Negative or not required by law. The above report was generated using voice recognition software. It may contain grammatical, syntax o r spelling errors. Electronically signed by: Asim West M.D. 05/01/2020 1:09 PM
[2020-05-01 13:13] LABS: Basophils # (auto) 0.04 K/uL (0-0.2); Basophils % (auto) 0.6 %; Eosinophils # (auto) 0.02 K/uL (0-0.5); Eosinophils % (auto) 0.3 %; Hematocrit (blood only) 29.3 % (42-52); Hemoglobin 9.4 g/dL (14.0-18.0); Immature Granulocytes # (auto) 0.01 K/uL (0.00-0.02); Immature Granulocytes % (auto) 0.1 %; Lymphocytes # (auto) 0.66 K/uL (1.2-3.4); Lymphocytes % (auto) 9.1 %; Mean Corpuscular Hemoglobin 30.9 pg (25-34); Mean Corpuscular Hgb Conc 32.1 g/dL (32-36); Mean Corpuscular Volume 96.4 fL (80-100); Mean Platelet Volume 10.5 fL (7.4-10.4); Monocytes # (auto) 0.75 K/uL (0.11-0.59); Monocytes % (auto) 10.4 %; Neutrophils # (auto) 5.75 K/uL (1.4-6.5); Neutrophils % (auto) 79.5 %; Platelet Count 174 K/uL (130-400); RDW Standard Deviation 55.3 fL (36.4-46.3); Red Blood Count 3.04 M/uL (4.7-6.1); White Blood Count 7.23 K/uL (4.8-10.8)
[2020-05-01 13:14] LABS: INR 1.2 (0.9-1.1); Partial Thromboplastin Ratio 1.1; Partial Thromboplastin Time 31.1 Seconds (21.0-31.0); Prothrombin Time 12.2 Seconds (9.0-12.0)
[2020-05-01 13:35] LABS: Alanine Aminotransferase 34 U/L (12-78); Albumin Globulin Ratio 1.1 (0.9-2); Alkaline Phosphatase 64 U/L (45-117); Aspartate Aminotransferase 17 U/L (15-37); Bilirubin Direct 0.2 mg/dl (0-0.2); Bilirubin,Total 0.8 mg/dl (0.2-1); Blood Urea Nitrogen 64 mg/dl (7-18); Calcium 9.3 mg/dl (8.5-10.1); Carbon Dioxide 28 mmol/L (21-32); Chloride 98 mmol/L (98-107); Creatinine Clr Calc Pharmacy 14.5 ml/min; Est GFR (African American) 10.4; Globulin 3.7 gm/dl (2.5-4.0); Glucose 116 mg/dl (70-99); Magnesium 2.4 mg/dl (1.8-2.4); Phosphorus 4.2 mg/dl (2.5-4.9); Potassium 5.1 mmol/L (3.5-5.1); Sodium 138 mmol/L (136-145); Total Protein 7.7 gm/dl (6.4-8.2); Troponin I < 0.015 ng/ml (0-0.045)
[2020-05-01] MEDS ORDERED: PIPERACILL/TAZOBAC CONSULT ACTIVE PRN (14:18)
[2020-05-01] MEDS ORDERED: PIPERACILLIN/TAZOBACTAM 4.5 GM/120 ML BAG IV ONE (14:18)
[2020-05-01] MEDS ORDERED: VANCOMYCIN CONSULT ACTIVE PRN (14:18)
[2020-05-01] MEDS ORDERED: VANCOMYCIN HCL 1,500 MG in SODIUM CHLORIDE 0.9% 500 ML IV ONE (14:18)
[2020-05-01] MEDS ORDERED: ALBUT/IPRATROP 3MG/0.5MG NEB 3 ML VIAL NEB ONE (14:19)
--- NOTE | 2020-05-01 16:57 | History & Physical Report ---
Date of Service May 01, 2020 Assessment & Plan (1) Pneumonitis: (2) Acute respiratory failure with hypoxia: -Admit to [facility] -Patient presenting from home with reports of cough and vomiting. Reports the vomiting was induced by cough. Hypoxic on room air at 88%, this improved with oxygen via nasal cannula. -CXR showing signs of pneumonitis -? Aspiration pneumonitis from vomiting -S/p Vanco and Zosyn in the ED. Will continue with Zosyn only for now, check MRSA nasal swab and if positive will re-add Vanco. -Received IV dexamethasone in the ED, no wheezing on exam currently, will hold on further steroids at this time. Scheduled nebs (3) ESRD on dialysis: -Wednesday, , Wednesday schedule. Received full treatment yesterday. -Nephrology consult for dialysis orders -Continue routine renal medications (4) TIA (transient ischemic attack): -Continue Plavix and statin (5) Diabetes mellitus type 1 with complications: -Hgb A1c 7.1 11/2019 -Update Hgb A1c with a.m. labs -Lantus and NovoLog per protocol while hospitalized (6) Hypertension: -BP elevated, likely secondary to missed doses of morning medications -Continue home doses of hydralazine, amlodipine, carvedilol. Make adjustments as needed (7) DVT prophylaxis: -SCDs, ambulate History of Present Illness Chief Complaint: Cough, vomiting Primary Care Provider: Ciro Singh MD 35-year-old male with PMH DM type I on insulin, ESRD on dialysis, HTN, and other problems listed below who presents the ED for evaluation of cough and vomiting. Patient reports that last evening, he developed a cough and shortly after began vomiting. He reports that the vomiting was induced by his severe cough. Reports cough was productive for clear sputum. Denies hematemesis or coffee-ground emesis. Symptoms persisted throughout the night. He reports developing shortness of breath. Denies chills, does not have a thermometer at home to take his temperature. No abdominal pain or diarrhea. Denies chest pain. Reports some mild lightheadedness and dizziness however no syncopal event. Does continue to make a small amount of urine. In the ED, patient was hypoxic on room air at 88%. This improved with oxygen via nasal cannula. CXR shows diffuse bilateral interstitial opacities are suspicious for an atypical infectious or inflammatory pneumonitis. Patient is afebrile, no leukocytosis. He received nebulizer treatment, IV dexamethasone 10 mg, IV diphenhydramine 25 mg, IV famotidine, guaifenesin, IV Zosyn, IV prochlorperazine, IVF, IV Vanco. Patient reports improvement in his symptoms. Allergies Allergy/AdvReac Type Severity Reaction Status Date / Time NSAIDS (Non-Steroidal AdvReac RENAL Unverified 05/01/20 13:41 Anti-Inflamma FAILURE Home Medications Home Medications Medication Instructions Recorded Confirmed Type atorvastatin 40 mg PO HS 09/28/18 05/01/20 History calcium acetate(phosphat bind) 2,668 mg PO TIDM 09/28/18 05/01/20 History cholecalciferol (vitamin D3) 5,000 units PO QAM 09/28/18 05/01/20 History [Vitamin D3] clopidogrel 75 mg PO QAM 09/28/18 05/01/20 History doxazosin 2 mg PO HS 12/20/18 05/01/20 History insulin aspart U-100 [Novolog 1 sliding scale dose SUBCUT AC 12/20/18 05/01/20 History U-100 Insulin aspart] carvedilol 25 mg PO QAM 06/25/19 05/01/20 History carvedilol 37.5 mg PO HS 06/25/19 05/01/20 History ropinirole 0.25 mg PO BID 10/03/19 05/01/20 History trazodone 50 mg PO DAILY 10/03/19 05/01/20 History amlodipine 10 mg PO DAILY 10/16/19 05/01/20 History Lantus Solostar U-100 Insulin 10 unit SUBCUT PM 05/01/20 05/01/20 History hydralazine 25 mg PO BID 05/01/20 05/01/20 History valproic acid 250 mg PO UD 05/01/20 05/01/20 History Past Med/Surg History Medical History Anemia in ESRD (end-stage renal disease) Bacteremia due to Staphylococcus aureus MSSA bacteremia 10/05/19 treated with cefazolin x 6 wks Charcot foot due to diabetes mellitus Diabetes mellitus type 1 with complications Diabetic nephropathy Diabetic neuropathy Diabetic retinopathy ESRD on dialysis Fatty liver History of peritoneal dialysis Hypertension Nephrotic syndrome due to diabetes mellitus Peritoneal dialysis catheter in place REMOVED 11/10/19 Prolonged QT interval TIA (transient ischemic attack) Surgical History S/P eye surgery Family History Mother Hypertension Grandfather (Maternal) Diabetes Grandmother (Maternal) Diabetes Grandmother (Paternal) Diabetes Social History Smoking Status: Former smoker Second Hand Exposure: No; Hx Alcohol Use: No Hx Substance Use: No Preferred Language: Kyrgyz Communication Ability: Effective Visual Impairment: Limited Manager Public Required: No Beliefs That Will Affect Care: None marital status: Single Current Living Situation: Alone current occupational status: employed Feels Safe at Home: Yes Safety Concerns: Feels Safe At This Time Review of Systems Review of Systems: ROS per HPI, all other systems reviewed and negative Physical Exam Constitutional: WD/WN, vitals as above Eyes: PERRL, conjunctivae normal, anicteric sclerae ENMT: external ear and nose normal, oropharynx normal Respiratory: normal respiratory effort; no respiratory distress Auscultation: + diminished lung sounds (Bilateral bases) Cardiovascular: Rate/Rhythm: regular rate and regular rhythm Vessels: normal peripheral pulses Extremities: no edema Gastrointestinal (Abdomen): normal bowel sounds, soft, nontender, no hepatosplenomegaly Musculoskeletal: no cyanosis or clubbing, extremities motor strength 5/5 Skin: no rashes, warm and dry Neurologic: PERRL, EOMI, accommodation nl, no face palsy, no dysarthria Psychiatric: A+Ox3, euthymic affect Results & Data Results & Data ([facility]) Vital Signs (Past 12 Hours) Vital Signs Temp Pulse Pulse Resp BP Pulse Ox 05/01/20 16:16 91 H 16 95 05/01/20 16:15 90 18 170/87 H 96 05/01/20 16:01 89 17 95 05/01/20 16:00 91 H 15 169/88 H 95 05/01/20 15:54 90 18 170/92 H 94 05/01/20 15:45 89 20 170/92 H 92 05/01/20 15:30 91 H 19 170/90 H 91 05/01/20 15:15 90 21 173/92 H 97 05/01/20 15:00 87 23 180/86 H 98 05/01/20 14:45 85 20 182/92 H 97 05/01/20 14:38 85 16 91 05/01/20 14:30 88 22 178/94 H 90 05/01/20 14:15 88 25 H 172/101 H 90 05/01/20 14:00 86 20 175/94 H 91 05/01/20 13:45 88 19 183/96 H 91 05/01/20 13:31 90 13 94 05/01/20 13:30 90 18 186/97 H 93 05/01/20 13:16 92 H 21 93 05/01/20 13:15 92 H 22 193/108 H 92 05/01/20 13:05 90 14 97 05/01/20 12:31 88 L 05/01/20 11:24 37.4 C 83 18 213/95 H 94 Laboratory Results Short CBC 05/01/20 Range/Units 12:49 WBC 7.23 (4.8-10.8) K/uL Hgb 9.4 L (14.0-18.0) g/dL Hct 29.3 L (42-52) % Plt Count 174 (130-400) K/uL BMP 05/01/20 12:49 Sodium 138 Potassium 5.1 Chloride 98 Carbon Dioxide 28 BUN 64 H Creatinine 7.11 H* Glucose 116 H Calcium 9.3 Cardiac Enzymes 05/01/20 Range/Units 12:49 Troponin I < 0.015 (0-0.045) ng/ml Liver Function 05/01/20 Range/Units 12:49 Total Bilirubin 0.8 (0.2-1) mg/dl Direct Bilirubin 0.2 (0-0.2) mg/dl AST 17 (15-37) U/L ALT 34 (12-78) U/L Alkaline Phosphatase 64 (45-117) U/L Albumin 4.0 (3.4-5.0) gm/dl Diagnostic Findings CXR IMPRESSION: Diffuse bilateral interstitial opacities are suspicious for an atypical infectious or inflammatory pneumonitis. Noncardiogenic pulmonary edema could appear similarly. Code Status & VTE Plan VTE Prophylaxis Plan VTE Prophylaxis will be ordered: Yes Supervising Physician Co-Signing Physician Notes 35-year-old male with PMH DM type I on insulin, ESRD on dialysis, HTN presents to the ER with cough and vomiting. Pt said that last night he started to cough alot that led him to vomit. He said that today his symptoms worsening where he continues to cough and vomiting. He said that he developed SOB while lying down. He said that his last episodes of vomiting was around noon. he said that he completed his HD yesterday. Denies any diarrhea, palpitation and dizziness. CXR showed diffuse bilateral interstitial opacities are suspicious for an atypical infectious or inflammatory pneumonitis. Received IV vanco and Zosyn in the ER. Will continue IV Zosyn for now. Blood cx collected in the ER pending. Will consult pharmacy for glycemic management. Nephrology consult for HD. Continue monitor closely. MD Otis
[2020-05-01] MEDS ORDERED: ACETAMINOPHEN 325 MG TAB PO PRN (17:39)
[2020-05-01] MEDS ORDERED: CARBOHYDRATES FOR HYPOGLYCEMIA PO PRN (18:00)
[2020-05-01] MEDS ORDERED: GLUCOSE 10 TABS/TUBE PO PRN (18:00)
[2020-05-01] MEDS ORDERED: GLUCOSE 40% GEL 15 GM TUBE PO PRN (18:00)
[2020-05-01] MEDS ORDERED: GLUCAGON FOR INJ 1 MG VIAL IM PRN (18:00)
[2020-05-01] MEDS ORDERED: DEXTROSE 50% 50 ML SYRINGE IV PRN (18:00)
[2020-05-01] MEDS ORDERED: PHARMACY GLYCEMIC MGMT CONSULT PRN (18:09)
[2020-05-01] MEDS: CALCIUM ACETATE 667 MG CAP/TAB PO SCH ×2 (18:40→18:41)
[2020-05-01] MEDS: INSULIN ASPART 100 UNITS/ML 3 ML PEN SC SCH ×2 (18:45→22:11)
[2020-05-01] MEDS: ALBUT/IPRATROP 3MG/0.5MG NEB 3 ML VIAL NEB SCH (19:05)
--- NOTE | 2020-05-01 19:25 | Electrocardiogram Report ---
Test Reason : Blood Pressure : / mmHG Vent. Rate : 091 BPM Atrial Rate : 091 BPM P-R Int : 142 ms QRS Dur : 090 ms QT Int : 394 ms P-R-T Axes : 031 014 053 degrees QTc Int : 484 ms Normal sinus rhythm Prolonged QT Abnormal ECG When compared with ECG of 27-NOV-2019 16:05, QT has shortened Confirmed by Theo Lara [id number]) on 05/01/2020 7:25:32 PM Referred By: REFERRED SELF Confirmed By:Tip Lara
[2020-05-01] MEDS: DOXAZosin MESYLATE TAB 2 MG TAB PO SCH (20:33)
[2020-05-01] MEDS: ROPINIROLE HCL 0.25 MG TABLET PO SCH (20:34)
[2020-05-01] MEDS: carvediloL 12.5 MG TAB PO SCH (20:34)
[2020-05-01] MEDS: ATORVASTATIN 40 MG TAB PO SCH (20:34)
[2020-05-01] MEDS ORDERED: INSULIN GLARGINE SOLOSTAR 100 UNITS/ML 3 ML PEN SQ SCH (21:00)
[2020-05-01] MEDS ORDERED: INSULIN ASPART 100 UNITS/ML 3 ML PEN SC SCH (21:00)
[2020-05-01] MEDS ORDERED: INSULIN GLARGINE SOLOSTAR 100 UNITS/ML 3 ML PEN SQ ONE (22:00)
[2020-05-02] MEDS: PIPERACILLIN/TAZOBACTAM 3.375 GM in DEXTROSE 5% 100 ML IV SCH ×2 (00:05→14:35)
[2020-05-02] MEDS: INSULIN ASPART 100 UNITS/ML 3 ML PEN SC SCH ×6 (00:05→21:54)
[2020-05-02 06:13] LABS: Hematocrit (blood only) 25.3 % (42-52); Hemoglobin 8.7 g/dL (14.0-18.0); Mean Corpuscular Hemoglobin 32.6 pg (25-34); Mean Corpuscular Hgb Conc 34.4 g/dL (32-36); Mean Corpuscular Volume 94.8 fL (80-100); Mean Platelet Volume 10.9 fL (7.4-10.4); Platelet Count 164 K/uL (130-400); RDW Coefficient of Variation 15.7 % (11.5-14.5); RDW Standard Deviation 53.1 fL (36.4-46.3); Red Blood Count 2.67 M/uL (4.7-6.1); White Blood Count 6.84 K/uL (4.8-10.8)
[2020-05-02 06:53] LABS: BUN Creatinine Ratio 9.1 (10-20); Creatinine Clr Calc Pharmacy 11.3 ml/min; Est GFR (African American) 7.7; Est GFR (Non-African American) 6.7; Potassium 5.1 mmol/L (3.5-5.1)
[2020-05-02 06:56] LABS: Estimated Average Glucose 160 mg/dl; Hemoglobin A1C 7.2 % (4.5-5.6)
[2020-05-02] MEDS: ALBUT/IPRATROP 3MG/0.5MG NEB 3 ML VIAL NEB SCH ×4 (07:27→15:58)
[2020-05-02] MEDS ORDERED: EPOETIN ALFA 10,000 UNITS/ML VIAL IV ONE (07:30)
[2020-05-02] MEDS ORDERED: SODIUM CHLORIDE 0.9% 1000ML 1,000 ML IV PRN (07:30)
[2020-05-02] MEDS ORDERED: HEPARIN SOD (PORCINE) 1000 UNIT/ML 10 ML VIAL IV ONE (07:30)
[2020-05-02 07:38] LABS: Appearance Urine Cloudy (Clear); Bilirubin Urine Negative (Negative); Blood Urine Trace (Negative); Color Urine Yellow; Epithelial Cell Urine Auto 0-5 /lpf (0-5); Glucose Urine UA 2+ (Negative); Ketones Urine Trace (Negative); Leukocyte Esterase Urine 2+ (Negative); Nitrite Urine Negative (Negative); Specific Gravity Urine 1.015 (1.000-1.030); Urobilinogen Urine Negative (Negative); WBC Urine Automated >30 /hpf (0-5); pH Urine >= 9.0 (4.5-7.5)
[2020-05-02 07:59] LABS: Protein Urine 3+ (Negative); Sulfosalicylic Acid Urine Positive (Negative)
[2020-05-02 08:01] LABS: Bacteria Urine Automated 1+ (Negative); RBC Urine Automated 0-4 /hpf (0-4); Sperm Urine Present (None Prsent)
[2020-05-02] MEDS: ROPINIROLE HCL 0.25 MG TABLET PO SCH ×2 (08:27→21:40)
[2020-05-02] MEDS: CHOLECALCIFEROL 1,000 UNITS 25 MCG TAB PO SCH (08:27)
[2020-05-02] MEDS ORDERED: CALCIUM ACETATE 667 MG CAP/TAB PO STA (08:29)
[2020-05-02] MEDS ORDERED: TRAZODONE HCL 50 MG TAB PO SCH (09:00)
--- NOTE | 2020-05-02 10:02 | Nephrology Consultation ---
Date of Consultation May 02, 2020 Assessment & Plan (1) ESRD on dialysis: plan slightly longer tx today (4.25 h) since he is volume overloaded, w/ goal fluid removal his max of 3.7 L with sbp parameters. >plan repeat tx tomorrow to help optimize fluid status; pt aware Present on Admission?: Yes (2) Acute respiratory failure with hypoxia: per primary service; note that volume overload may explain Xray findings > extra tx as above -f/u pending cxs and other therapies Present on Admission?: Yes (3) Pneumonitis: had steroids; on empiric zosyn for possible aspiration; per primary service Present on Admission?: Yes (4) Anemia in ESRD (end-stage renal disease): >gave 10K units epo today on tx; suspect some of anemia is dilutional >> hgb checked weekly at HD is usually mid to high . high Fe stores at OP HD in mid March so no venofer needed >daily bmp Present on Admission?: Yes History of Present Illness Reason for Consultation: ESRD on HD Requesting Physician: Dr Palomino Attending Physician: Alisha Palomino, DO History of Present Illness 35 y/o M whom I'm asked to see for dialysis needs after he was admitted for evaluation of acute hypoxia and concern for possible aspiration PNA/pneumonitis. PMH includes longstanding DM1 which can be brittle at times, HTN, chronic urinary retention on CIC, chronic LYON / migraines (follows with neuro for this), hx of TIA, Staph aureus bacteremia 09/2019. Has had issues adhering to medical recommendations in the past -- see my c/s from 09/2019 at [facility] -- but doing better recently. Failed peritoneal dialysis earlier this year and back to in center HD now under my care at [facility]. he tells me that he needed 5 kg fluid removal at dialysis on 04/30 but only tolerated 3.7 kg off. He woke up 04/30 night with orthopnea/PND and started coughing 05/01 in AM eventually leading to dry heaves then emesis. In ER he was hypertensive and had hypoxia on RA. 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 Allergies Allergy/AdvReac Type Severity Reaction Status Date / Time NSAIDS (Non-Steroidal AdvReac RENAL Unverified 05/01/20 13:41 Anti-Inflamma FAILURE Home Medications Home Medications Medication Instructions Recorded Confirmed Type atorvastatin 40 mg PO HS 09/28/18 05/01/20 History calcium acetate(phosphat bind) 2,668 mg PO TIDM 09/28/18 05/01/20 History cholecalciferol (vitamin D3) 5,000 units PO QAM 09/28/18 05/01/20 History [Vitamin D3] clopidogrel 75 mg PO QAM 09/28/18 05/01/20 History doxazosin 2 mg PO HS 12/20/18 05/01/20 History insulin aspart U-100 [Novolog 1 sliding scale dose SUBCUT AC 12/20/18 05/01/20 History U-100 Insulin aspart] carvedilol 25 mg PO QAM 06/25/19 05/01/20 History carvedilol 37.5 mg PO HS 06/25/19 05/01/20 History ropinirole 0.25 mg PO BID 10/03/19 05/01/20 History trazodone 50 mg PO DAILY 10/03/19 05/01/20 History amlodipine 10 mg PO DAILY 10/16/19 05/01/20 History Lantus Solostar U-100 Insulin 10 unit SUBCUT PM 05/01/20 05/01/20 History hydralazine 25 mg PO BID 05/01/20 05/01/20 History valproic acid 250 mg PO UD 05/01/20 05/01/20 History Patient History Medical History Anemia in ESRD (end-stage renal disease) Bacteremia due to Staphylococcus aureus MSSA bacteremia 10/05/19 treated with cefazolin x 6 wks Charcot foot due to diabetes mellitus Diabetes mellitus type 1 with complications Diabetic nephropathy Diabetic neuropathy Diabetic retinopathy ESRD on dialysis Fatty liver History of peritoneal dialysis Hypertension Nephrotic syndrome due to diabetes mellitus Peritoneal dialysis catheter in place REMOVED 11/10/19 Prolonged QT interval TIA (transient ischemic attack) Surgical History S/P eye surgery Family History Mother Hypertension Grandfather (Maternal) Diabetes Grandmother (Maternal) Diabetes Grandmother (Paternal) Diabetes Social History Smoking Status: Former smoker Second Hand Exposure: No; Hx Alcohol Use: No Hx Substance Use: No Preferred Language: [place]ese Communication Ability: Effective Visual Impairment: Limited Composition Molder Required: No Beliefs That Will Affect Care: None marital status: Single Current Living Situation: Alone current occupational status: employed Feels Safe at Home: Yes Safety Concerns: Feels Safe At This Time Review of Systems Review of Systems: All systems reviewed & are unremarkable except as noted in HPI & below Genitourinary: + problem reported (states UOP has increased recently and has needed less frequent CIC) Physical Exam Constitutional: well developed and well nourished; no acute distress sitting in bed on 02NC Eyes: EOM intact bilaterally ENMT: Ears: no external ear abnormality Nose: no external nose abnormality Mouth: + dry oral mucous membranes Neck: no nuchal rigidity Respiratory: normal respiratory effort; no respiratory distress, no labored breathing and no cough Auscultation: + diminished lung sounds and + crackles (BL bases) Cardiovascular: Rate/Rhythm: regular rate and regular rhythm Extremities: + edema (trace BL legs) and + AV fistula (+ T/b) Gastrointestinal (Abdomen): Inspection/Auscultation: normal bowel sounds Percussion/Palpation: abdomen soft; abdomen nontender Musculoskeletal: Extremities: strength 5/5 throughout maneuvers easily for exam Skin: no rashes, warm and dry Neurologic: soria, fluent speech, no tremor Results & Data ([facility]) Vital Signs (Past 12 Hours) Vital Signs Temp Pulse Pulse Resp BP Pulse Ox 05/02/20 09:05 37.1 C 78 05/02/20 08:05 36.6 C 81 16 194/90 H 96 05/02/20 07:27 79 16 97 05/01/20 22:15 36.9 C 83 16 159/77 H 91 Laboratory Results 05/02/20 05:34 05/02/20 05:34 UA reviewed Blood and urine cxs pending Diagnostic Findings cxr IMPRESSION: Diffuse bilateral interstitial opacities are suspicious for an atypical infectious or inflammatory pneumonitis. Noncardiogenic pulmonary edema could appear similarly.
[2020-05-02] MEDS: HEPARIN SOD (PORCINE) 1000 UNIT/ML 10 ML VIAL IV SCH ×3 (10:10→14:15)
--- NOTE | 2020-05-02 10:17 | Pharmacy Report ---
Glycemic Control Consultation - Date of Service May 02, 2020 - Scope Scope: Glycemic Pharmacist consulted for glycemic control and to write orders per [facility] inpatient glycemic control protocol. - Objective Weight: 77 kg Accuchecks BSG (last 24hrs): Laboratory Data (last 24hrs): 05/01/20 05/02/20 12:49 05:34 Potassium 5.1 5.1 Carbon Dioxide 28 27 Anion Gap 12.0 H 11.0 Creatinine 7.11 H* 9.12 H* D Est Cr Clr Drug Dosing 14.5 11.3 HbA1c: Hemoglobin A1c 7.2 % (4.5-5.6) H 05/02/20 05:34 - Recent Pertinent Medications Outpatient Anti-diabetic Regimen: * Lantus 11 units SC HS + Novolog sliding scale * A1c = 7.2% (05/02/2020) Risk Factors for Insulin Resistance: * Steroids: * IV Dexamethasone 10 mg x 1 * Infection: * Zosyn 3.375 gm IV Q12H * Diet: * Dialysis Renal - Assessment & Plan Assessment & Plan: ASSESSMENT: * 35 yo M admitted secondary to acute respiratory failure. Pharmacy is consulted for inpatient glycemic management. Patient is well known to our service. Outpatient A1c shows good control of T1DM on basal-bolus insulin. * Admission BSG was 116 mg/dL. Due to respiratory failure, patient was given a one time dose of IV dexamethasone in ED. BSGs have increased significantly since: [phone] mg/dL. This is likely a direct result of the steroid dose. Expect extended half-life of dexamethasone given ESRD on HD. Patient was given 15 units of Lantus last evening and started on Novolog. * Fasting BSG this AM is very poorly controlled at 261 mg/dL. He will received HD today and possibly tomorrow. Expect effects of Dexamethasone to wear off by the end of today. * Lunchtime BSG was 193 mg/dL and late as patient had just returned from HD. Instructed RN to cover lunchtime BSG with both correctional and prandial insulin. PLAN FOR INPATIENT GLYCEMIC CONTROL: * Basal insulin - increased per scale * Lantus 15 units SC HS (for BSG 200 mg/dL or less) * Lantus 20 units SC HS (for BSG 201 mg/dL or more) * Bolus insulin - tightened CR * NovoLog per scale ACHS or Q6hrs while NPO * Goal Range: Low 120 mg/dL - High 150 mg/dL * Correction Factor: 30 mg/dL/unit * Nutritional / Prandial insulin per carb ratio of 1 unit per 10 grams CHO consumed * Please note that the plan above was derived based on current level of insulin resistance and hospital stress. These recommendations are appropriate for inpatient admission only. Plan of care upon discharge will need to be reassessed to avoid potential outpatient hypo/hyperglycemia. Thank you.
[2020-05-02] MEDS: carvediloL 25 MG TAB PO SCH (14:14)
[2020-05-02] MEDS: AMLODIPINE BESYLATE 5 MG TAB PO SCH (14:14)
[2020-05-02] MEDS: CLOPIDOGREL BISULFATE 75 MG TAB PO SCH (14:15)
--- NOTE | 2020-05-02 14:15 | Hospitalist Progress Note ---
Date of Service May 02, 2020 Assessment & Plan (1) Aspiration pneumonia: The patient suffered a coughing spell with posttussive vomiting and subsequent shortness of breath and hypoxia. On arrival to the ER oxygen saturation was 88% on room air with improvement with a small amount of oxygen supplementation. He received broad-spectrum antibiotics and reports improvement today on continued Zosyn with some persistent coughing But no fevers or chills overnight. No leukocytosis is present and initial blood cultures from yesterday are preliminarily negative. He appears clinically improved. Continue Zosyn for another 24 hours. (2) Hypoxia: Secondary to aspiration pneumonia versus pneumonitis. Of note he did receive a dose of dexamethasone in the ER likely contributing to elevated blood sugars today. Hold on any further steroids at this time as he is improving clinically. (3) Hypertensive urgency: -BP very elevated consistently over the last 24 to 48 hours. Record review reveals he has been fluctuating up and down on current regimen. Current blood pressure elevation likely secondary to missed doses of morning medications both today and yesterday. We will add Nitropaste overnight in addition to continuing home doses of hydralazine, amlodipine, carvedilol. Make adjustments as needed for goal closer to 130/80. He also reports chest pressure which manifested today, likely a result of the uncontrolled hypertension for over 24 hours. EKG was checked and nonischemic. He was given a trial of morphine with no effect. Hopeful Nitropaste will improve both blood pressure and chest discomfort. Other agents to control the pain may be needed overnight and tomorrow if Nitropaste is not improving the situation (4) Diabetes mellitus type 1 with complications: -Hgb A1c 7.1 11/2019 -Update Hgb A1c is 7.2. -Lantus and NovoLog per protocol while hospitalized. Of note some uncontrolled glucose after hemodialysis today because of the long hemodialysis session and as noted above dexamethasone given yesterday is still on board. Discussed the situation with the inpatient glycemic pharmacist and will get him back on track with a carb ratio of 1-10 and correction factor of 20 to 200 consistent with his home regimen. (5) TIA (transient ischemic attack): -Continue Plavix and statin per home regimen. (6) ESRD on dialysis: -Wednesday, , Wednesday schedule. Received full treatment today with 3.6 L ultrafiltrate removed. -Nephrology consult for dialysis orders and assistance with blood pressure control. -Continue routine renal medications (7) UTI (urinary tract infection): Patient performs intermittent cathing regularly increasing chances of UTI. UA was positive. Cont Zosyn pending urine culture results. Cont to self cath as needed. (8) Anemia in ESRD (end-stage renal disease): per Nephrology (9) DVT prophylaxis: -SCDs, ambulate Heparin added Full Code Dispo-to home when medically stable Alisha Palomino DO [facility] Hospitalist Admission and Anticipated Discharge Date Admission Date: May 01, 2020 Subjective Recently returned from hemodialysis and had something to eat. He has type I DM and his subQ personal meter is registering a blood sugar of 312 He already received 5 units with lunch recently His BP has been in the 170-180s all day and then was close to 200 systolic on arrival back to the room. EKG is normal sinus at 75 BPM and no ischemic changes. Will give a small dose of morphine and see if this helps his pain and his blood pressure. He also reports some dried blood in his nose which is irritating. Nasal saline ordered. Oxygen supplementation is humidified. Some cough still present, no fevers or chills overnight. Pt states that he feels better overall since yesterday. Denies any bladder discomfort today. CIC's once daily as needed at home. He has had UTIs in the past. Review of Systems Review of Systems: All systems reviewed & are unremarkable except as noted in Subjective Physical Exam Physical Exam: CONSTITUTIONAL: WNWD, vitals as above, generally well- appearing EYES: normal conjunctivae, no scleral icterus ENT: external ear and nose normal, MMM RESPIRATORY: normal respiratory effort, crackles at the bases bilaterally, otherwise clear throughout all lung rivas. No wheezing or rales. CARDIOVASCULAR: regular rate and rhythm, S1 and 2 heard without murmurs, gallops or rubs, no JVD, no peripheral edema GASTROINTESTINAL: normal bowel sounds, soft, nontender,nondistended and no guarding. MUSCULOSKELETAL: strength 5/5 throughout, head is normocephalic and atraumatic, no gross focal deficits. SKIN: warm and dry, fistula covered on RUE NEUROLOGIC: CN 2-12 grossly intact, normal cognition, normal speech, no tremor. No gross focal deficits. PSYCHIATRIC: alert cooperative and oriented to person, place and time. Euthymic mood, makes good eye contact Results & Data Results & Data ([facility]) Vital Signs (Past 12 Hours) Vital Signs Temp Pulse Pulse Pulse Resp BP BP 05/02/20 14:09 37.2 C 82 199 H 16 199/90 H 05/02/20 13:00 78 151/70 H 05/02/20 12:40 74 194/98 H 05/02/20 12:20 77 185/98 H 05/02/20 12:00 77 163/74 H 05/02/20 11:40 77 165/78 H 05/02/20 11:20 78 183/98 H 05/02/20 11:00 75 158/85 H 05/02/20 10:40 75 170/91 H 05/02/20 10:20 76 175/93 H 05/02/20 10:00 79 175/95 H 05/02/20 09:40 79 178/96 H 05/02/20 09:20 80 184/103 H 05/02/20 09:10 79 183/96 H 05/02/20 09:05 37.1 C 78 05/02/20 08:05 36.6 C 81 16 194/90 H 05/02/20 07:27 79 16 Pulse Ox 05/02/20 14:09 94 05/02/20 13:00 05/02/20 12:40 05/02/20 12:20 05/02/20 12:00 05/02/20 11:40 05/02/20 11:20 05/02/20 11:00 05/02/20 10:40 05/02/20 10:20 05/02/20 10:00 05/02/20 09:40 05/02/20 09:20 05/02/20 09:10 05/02/20 09:05 05/02/20 08:05 96 05/02/20 07:27 97 Laboratory Results Short CBC 05/02/20 Range/Units 05:34 WBC 6.84 (4.8-10.8) K/uL Hgb 8.7 L (14.0-18.0) g/dL Hct 25.3 L (42-52) % Plt Count 164 (130-400) K/uL BMP 05/02/20 05:34 Sodium 135 L Potassium 5.1 Chloride 96 L Carbon Dioxide 27 BUN 83 H Creatinine 9.12 H* D Glucose 226 H Calcium 9.0 Urine 05/02/20 Range/Units 07:26 Urine Color Yellow Urine Appearance Cloudy A (Clear) Urine pH >= 9.0 H (4.5-7.5) Ur Specific [place] 1.015 (1.000-1.030) Urine Protein 3+ H (Negative) Urine Glucose (UA) 2+ H (Negative) Medications Administered Current Inpatient Medications Acetaminophen (Acetaminophen 325 Mg Tab) 650 mg PO Q4H PRN PRN Reason: pain/fever Stop: 05/31/20 17:38 Albuterol (Albut/Ipratrop 3mg/0.5mg Neb 3 Ml Vial) 3 ml NEB QIDR EMERY Stop: 05/31/20 18:59 Last Admin: 05/02/20 10:37 Dose: Not Given Documented by: Amlodipine Besylate (Amlodipine Besylate 5 Mg Tab) 10 mg PO DAILY [facility] Stop: 06/01/20 08:59 Atorvastatin Calcium (Atorvastatin 40 Mg Tab) 40 mg PO [facility] Stop: 05/31/20 20:59 Last Admin: 05/01/20 20:34 Dose: 40 mg Documented by: Calcium Acetate (Calcium Acetate 667 Mg Cap/Tab) 2,668 mg PO TIDM [facility] Stop: 06/01/20 07:59 Last Admin: 05/01/20 18:41 Dose: 2,668 mg Documented by: Carvedilol (Carvedilol 25 Mg Tab) 25 mg PO QAM [facility] Stop: 06/01/20 08:59 Carvedilol (Carvedilol 12.5 Mg Tab) 37.5 mg PO [facility] Stop: 05/31/20 20:59 Last Admin: 05/01/20 20:34 Dose: 37.5 mg Documented by: Clopidogrel Bisulfate (Clopidogrel Bisulfate 75 Mg Tab) 75 mg PO QAM [facility] Stop: 06/01/20 08:59 Dextrose (Dextrose 50% 50 Ml Syringe) 25 - 50 ml IV UD PRN; Protocol PRN Reason: Hypoglycemia Protocol Stop: 05/31/20 17:59 Doxazosin Mesylate (Doxazosin Mesylate Tab 2 Mg Tab) 2 mg PO HS [facility] Stop: 05/31/20 20:59 Last Admin: 05/01/20 20:33 Dose: 2 mg Documented by: Glucagon (Glucagon For Inj 1 Mg Vial) 1 mg IM UD PRN; Protocol PRN Reason: Hypoglycemia Protocol Stop: 05/31/20 17:59 Glucose (Glucose 40% Gel 15 Gm Tube) 15 - 30 gm PO UD PRN; Protocol PRN Reason: Hypoglycemia Protocol Stop: 05/31/20 17:59 Glucose (Glucose 10 Tabs/Tube) 4 - 8 tabs PO UD PRN; Protocol PRN Reason: Hypoglycemia Protocol Stop: 05/31/20 17:59 Hydralazine HCl (Hydralazine Hcl 25 Mg Tab) 25 mg PO BID EMERY Stop: 05/31/20 20:59 Last Admin: 05/01/20 20:33 Dose: 25 mg Documented by: Piperacillin Sod/Tazobactam (Sod 3.375 gm/ Dextrose) 115 mls @ 28.75 mls/hr IV Q12H [facility]; Protocol Stop: 05/09/20 00:00 Last Infusion: 05/02/20 04:05 Dose: Infused Documented by: Insulin Aspart (Insulin Aspart 100 Units/Ml 3 Ml Pen) 0 units SC ACHS [facility]; Protocol Stop: 05/31/20 18:29 Last Admin: 05/02/20 08:26 Dose: 8 units Documented by: Miscellaneous (Carbohydrates For Hypoglycemia ) 15 - 30 gm PO UD PRN PRN Reason: Hypoglycemia Treatment Stop: 05/31/20 17:59 Miscellaneous Information (Piperacill/Tazobac Consult Active) 1 ea N/A UD PRN PRN Reason: Consult Stop: 05/31/20 14:17 Miscellaneous Information (Pharmacy Glycemic Mgmt Consult) 1 ea N/A UD PRN PRN Reason: Consult Stop: 05/31/20 18:08 Ropinirole HCl (Ropinirole Hcl 0.25 Mg Tablet) 0.25 mg PO BID EMERY Stop: 05/31/20 20:59 Last Admin: 05/02/20 08:27 Dose: 0.25 mg Documented by: Trazodone HCl (Trazodone Hcl 50 Mg Tab) 50 mg PO DAILY [facility] Stop: 06/01/20 08:59 Last Admin: 05/02/20 08:28 Dose: 50 mg Documented by: Vitamin D (Cholecalciferol 1,000 Units 25 Mcg Tab) 5,000 units PO QAM [facility] Stop: 06/01/20 08:59 Last Admin: 05/02/20 08:27 Dose: 5,000 units Documented by:
[2020-05-02] MEDS ORDERED: HydrALAZINE HCL 20 MG/ML VIAL IV STA ×2 (14:17→19:21)
[2020-05-02] MEDS: CALCIUM ACETATE 667 MG CAP/TAB PO SCH ×2 (14:35→17:33)
[2020-05-02] MEDS ORDERED: MoRPHine SULFATE 2 MG/ML CARP IV STA (16:38)
[2020-05-02] MEDS ORDERED: ALBUT/IPRATROP 3MG/0.5MG NEB 3 ML VIAL NEB PRN (16:39)
[2020-05-02] MEDS ORDERED: SODIUM CHLORIDE 0.65% NA SOLN 45 ML (OCEAN) PRN (16:39)
[2020-05-02] MEDS ORDERED: MoRPHine SULFATE 2 MG/ML CARP ONE (16:49)
[2020-05-02] MEDS ORDERED: INSULIN HUMAN REGULAR PER UNIT 4 UNITS in SYRINGE 3.96 ML IV ONE (17:30)
[2020-05-02] MEDS ORDERED: NITROGLYCERIN 2% OINTMENT 30GM TUBE EXT SCH (18:00)
[2020-05-02] MEDS ORDERED: ACETAMINOPHEN 500 MG TAB PO ONE (18:07)
[2020-05-02] MEDS ORDERED: MoRPHine SULFATE 4 MG/ML 1 ML CARP\\VIAL IV PRN (19:21)
[2020-05-02] MEDS ORDERED: ACETAMINOPHEN W/CODEINE #3 1 TAB PO PRN (19:21)
[2020-05-02] MEDS ORDERED: INSULIN GLARGINE SOLOSTAR 100 UNITS/ML 3 ML PEN SC SCH (21:00)
[2020-05-02] MEDS: carvediloL 12.5 MG TAB PO SCH (21:39)
[2020-05-02] MEDS: ATORVASTATIN 40 MG TAB PO SCH (21:40)
[2020-05-02] MEDS: DOXAZosin MESYLATE TAB 2 MG TAB PO SCH (21:42)
[2020-05-02] MEDS ORDERED: HEPARIN SOD 5,000 UNIT/0.5 ML VIAL SQ SCH (22:00)
[2020-05-03] MEDS: PIPERACILLIN/TAZOBACTAM 3.375 GM in DEXTROSE 5% 100 ML IV SCH ×2 (02:30→15:28)
[2020-05-03 06:18] LABS: Hematocrit (blood only) 27.7 % (42-52); Hemoglobin 8.9 g/dL (14.0-18.0); Mean Corpuscular Hemoglobin 31.1 pg (25-34); Mean Corpuscular Hgb Conc 32.1 g/dL (32-36); Mean Corpuscular Volume 96.9 fL (80-100); Mean Platelet Volume 10.9 fL (7.4-10.4); Platelet Count 194 K/uL (130-400); RDW Coefficient of Variation 16.2 % (11.5-14.5); RDW Standard Deviation 56.3 fL (36.4-46.3); Red Blood Count 2.86 M/uL (4.7-6.1); White Blood Count 6.21 K/uL (4.8-10.8)
[2020-05-03 07:04] LABS: BUN Creatinine Ratio 7.1 (10-20); Creatinine Clr Calc Pharmacy 17.1 ml/min; Est GFR (African American) 12.4; Est GFR (Non-African American) 10.7; Magnesium 2.3 mg/dl (1.8-2.4); Potassium 4.8 mmol/L (3.5-5.1)
[2020-05-03] MEDS ORDERED: HEPARIN SOD (PORCINE) 1000 UNIT/ML 10 ML VIAL IV ONE (07:19)
[2020-05-03] MEDS ORDERED: SODIUM CHLORIDE 0.9% 1000ML 1,000 ML IV PRN (07:19)
--- NOTE | 2020-05-03 07:32 | Nephrology Progress Note ---
Date of Service May 03, 2020 Assessment & Plan (1) ESRD on dialysis: for another 3.5hr tx today w/ goal 3L uf since he is volume overloaded >plan routine tx tomorrow to help optimize fluid status; pt aware (2) Hypertensive urgency: aggressive UF and frequent HD increased hydralazine to 50 mg bid wrote for fluid limit pt with hx of autonomic dysfunction/labile BP > none manifesting so far cotn other bp meds Present on Admission?: Yes (3) Anemia in ESRD (end-stage renal disease): >will again give 10K units epo today on tx; suspect some of his anemia is dilutional >> hgb checked weekly at HD is usually mid to high 9's. high Fe stores at OP HD in mid March so no venofer needed >daily hgb (4) Acute respiratory failure with hypoxia: per primary service; note that volume overload may explain Xray findings > extra tx as above (5) Aspiration pneumonia: PNA versus pneumonitis after aspiration w/ coughing fit. had steroids; on short course zosyn; still on 02NC Present on Admission?: Yes Admission and Anticipated Discharge Date Admission Date: May 01, 2020 Subjective tolerated HD yesterday 3.7L UF; remains hypertensive> had nitropaste ON for bp; had some chest pressure yesterday seen on rounds this am at 0740. eating full breakfast. Review of Systems Review of Systems: All systems reviewed & are unremarkable except as noted in HPI & below Physical Exam Constitutional: well developed and well nourished; no acute distress Eyes: EOM intact bilaterally ENMT: Ears: no external ear abnormality Nose: no external nose abnormality Mouth: + dry oral mucous membranes Neck: no nuchal rigidity Respiratory: normal respiratory effort; no respiratory distress, no labored breathing and no cough Auscultation: + diminished lung sounds and + crackles (BL bases) Cardiovascular: Rate/Rhythm: regular rate and regular rhythm Extremities: + edema (trace BL legs) and + AV fistula (+ T/b) Gastrointestinal (Abdomen): Inspection/Auscultation: normal bowel sounds Percussion/Palpation: abdomen soft; abdomen nontender Musculoskeletal: Extremities: strength 5/5 throughout Skin: no rashes, warm and dry Neurologic: soria, fluent speech, no tremor Psychiatric: A+Ox3, euthymic affect Results & Data ([place]) Vital Signs (Past 12 Hours) Vital Signs Temp Pulse Resp BP Pulse Ox 05/02/20 23:33 36.9 C 66 14 157/82 H 95 05/02/20 20:15 150/82 H Laboratory Results 05/03/20 05:23 05/03/20 05:23 (1) Aspiration pneumonia Aspiration pneumonia type: unspecified
[2020-05-03] MEDS: CALCIUM ACETATE 667 MG CAP/TAB PO SCH ×3 (07:38→17:35)
--- NOTE | 2020-05-03 07:38 | XRay Report ---
XR chest 1V portable HISTORY: 35 years-old Male pneumonia, monitor progress infiltrates acute shortness of breath with pn eumonia COMPARISON: Chest radiograph 05/01/2020 TECHNIQUE: Portable AP view of the chest FINDINGS: Cardiac silhouette is upper limits of normal in size. Unchanged diffuse interstitial opacities. No pn eumothorax, large pleural effusion or airspace consolidation typical for pneumonia. Bones appear liz sly intact. IMPRESSION: Unchanged diffuse bilateral reticular opacities are again suspicious for an atypical infe ctious or inflammatory pneumonitis. Pulmonary edema could appear similarly. ACT 112: Negative or not required by law. The above report was generated using voice recognition software. It may contain grammatical, syntax o r spelling errors. Electronically signed by: Asim West M.D. 05/03/2020 7:37 AM
[2020-05-03] MEDS ORDERED: EPOETIN ALFA 10,000 UNITS/ML VIAL IV ONE (08:00)
[2020-05-03] MEDS: INSULIN ASPART 100 UNITS/ML 3 ML PEN SC SCH ×3 (08:14→17:36)
[2020-05-03] MEDS ORDERED: HydrALAZINE TAB 50 MG TAB PO SCH (09:00)
--- NOTE | 2020-05-03 09:08 | Pharmacy Report ---
Pharmacy Glycemic Short Note 2 - Date of Service May 03, 2020 - Glycemic Short BSG Results (Last 24 hours): OUTPATIENT ANTIDIABETIC REGIMEN: * Lantus 11 units SC HS + Novolog sliding scale * A1c = 7.2% (05/02/2020) ASSESSMENT: 05/03: * BSGs very poorly controlled yesterday: [phone] mg/dL * Received 42 units of insulin: 15 units basal + 27 units bolus * Novolog parameters were tightened yesterday * Fasting BSG this morning was 178 mg/dL * Fasting is elevated but greatly improved from yesterday * Steroids should have worn off by now - patient scheduled for HD again today * Lunchtime BSG was 134 mg/dL. This was taken at ~ 1530 when patient returned from dialysis. Instructed RN to cover this accucheck as normal with correctional/prandial coverage. For the dinner accucheck, instructed RN to cover only carbs to prevent stacking/hypoglycemia. 05/02: * 35 yo M admitted secondary to acute respiratory failure. Pharmacy is consulted for inpatient glycemic management. Patient is well known to our service. Outpa tient A1c shows good control of T1DM on basal-bolus insulin. * Admission BSG was 116 mg/dL. Due to respiratory failure, patient was given a one time dose of IV dexamethasone in ED. BSGs have increased significantly since: [phone] mg/dL. This is likely a direct result of the steroid dose. Expect extended half-life of dexamethasone given ESRD on HD. Patient was given 15 units of Lantus last evening and started on Novolog. * Fasting BSG this AM is very poorly controlled at 261 mg/dL. He will received HD today and possibly tomorrow. Expect effects of Dexamethasone to wear off by the end of today. * Lunchtime BSG was 193 mg/dL and late as patient had just returned from HD. Instructed RN to cover lunchtime BSG with both correctional and prandial insulin. PLAN FOR INPATIENT GLYCEMIC CONTROL: * Hold outpatient oral diabetes medications * Basal insulin * Lantus 15-20 units SQ HS (see eMAR for further details) * Bolus insulin - tightened CR * NovoLog per scale ACHS or Q6hrs while NPO * Goal Range: Low 120 mg/dL - High 150 mg/dL * Correction Factor: 20 mg/dL/unit * Nutritional / Prandial insulin per carb ratio of 1 unit per 7 grams CHO consumed PLAN FOR DISCHARGE: * A1c is down to 7.2% from 8.3% in September 2019. * However, these values must be interpreted with caution secondary to ESRD on HD. * Recommend less insulin on HD days as compared to non-HD days: * ,,Sa - Lantus 12 units SC HS (for BSG less than 220 mg/dL) or Lantus 13 units SC HS (for BSG 220 mg/dL or greater) * Turner,Mo,We,Fr - Lantus 14 units SC HS (for BSG less than 220 mg/dL) or Lantus 15 units SC HS (for BSG 220 mg/dL or greater) * Recommend continuing outpatient novolog sliding scale parameters
[2020-05-03] MEDS: carvediloL 25 MG TAB PO SCH (10:20)
[2020-05-03] MEDS: AMLODIPINE BESYLATE 5 MG TAB PO SCH (10:21)
[2020-05-03] MEDS: ROPINIROLE HCL 0.25 MG TABLET PO SCH (10:22)
[2020-05-03] MEDS: CLOPIDOGREL BISULFATE 75 MG TAB PO SCH (10:22)
[2020-05-03] MEDS: CHOLECALCIFEROL 1,000 UNITS 25 MCG TAB PO SCH (10:23)
[2020-05-03] MEDS ORDERED: GUAIFENESIN/CODEINE 200MG/20MG 10ML UDC PO PRN (10:25)
--- NOTE | 2020-05-03 10:28 | Hospitalist Progress Note ---
Date of Service May 03, 2020 Assessment & Plan (1) Aspiration pneumonia: The patient suffered a coughing spell with posttussive vomiting and subsequent shortness of breath and hypoxia. Differential includes but not limited to aspiration pneumonia vs pneumonitis. Denies fevers and chills, blood cultures are negative and he looks well on exam. Would like to get pulmonology opinion prior to stopping abx as patient is relatively immunocompromised as a Type I diabetic on ESRD. No leukocytosis. Procalcitonin on admission was 3.77. (2) Hypoxia: Secondary to aspiration pneumonia versus pneumonitis. Of note he did receive a dose of dexamethasone in the ER. Holding on any further steroids at this time as he is improving clinically and this will increase his blood sugars. (3) Hypertensive urgency: -BP very elevated consistently over the last 24 to 48 hours. Record review reveals he has been fluctuating up and down on current regimen. Advised nurses to give morning meds despite HD planned for today. BP is too high at this time 181/99. Nephro planning for help with managing this with HD settings and increased hydralazine from 25 to 50 BID. Make adjustments as needed for goal closer to 130/80. Chest pressure also still present with likely contribution from this uncontrolled BP which we will continue to make efforts to control today. (4) Diabetes mellitus type 1 with complications: -Hgb A1c 7.1 11/2019 -Update Hgb A1c is 7.2. -Lantus and NovoLog per protocol while hospitalized. At goal this morning. (5) TIA (transient ischemic attack): -Continue Plavix and statin per home regimen. (6) ESRD on dialysis: -Wednesday, , Wednesday schedule. An extra session scheduled for today. -Nephrology consult for dialysis orders and assistance with blood pressure control. -Continue routine renal medications (7) UTI (urinary tract infection): Patient performs intermittent cathing regularly increasing chances of UTI. UA was positive. Cont Zosyn pending urine culture results. Cont to self cath as needed. (8) Anemia in ESRD (end-stage renal disease): per Nephrology (9) DVT prophylaxis: -SCDs, ambulate Heparin added but refused by patient so this was discontinued. Full Code Dispo-to home when medically stable Alisha Palomino DO [facility] Hospitalist Admission and Anticipated Discharge Date Admission Date: May 01, 2020 Subjective Doing slightly better today and now is off oxygen Some cough still persists Chest pain persists especially with coughing and with deep breaths. Otherwise feels OK, however, BP is ritical at 181/89 this am, and BP meds held because it is a dialysis day today. I advised the nurse to give them now anyway. Tolerating PO and no fevers or chills. Didn't get much sleep overnight. Consulted Pulmonology to help with if this is pneumonitis or aspiration pneumonia to understand if we can stop abx or if they should be continued. Glucose is at goal this morning. Review of Systems Review of Systems: All systems reviewed & are unremarkable except as noted in Subjective Physical Exam Physical Exam: CONSTITUTIONAL: WNWD, vitals as above, generally well- appearing EYES: normal conjunctivae, no scleral icterus ENT: external ear and nose normal, MMM RESPIRATORY: normal respiratory effort, crackles at the bases bilaterally, otherwise clear throughout all lung rivas. No wheezing or rales. CARDIOVASCULAR: regular rate and rhythm, S1 and 2 heard without murmurs, gallops or rubs, no JVD, no peripheral edema GASTROINTESTINAL: normal bowel sounds, soft, nontender, nondistended and no guarding. MUSCULOSKELETAL: strength 5/5 throughout, head is normocephalic and atraumatic, no gross focal deficits. SKIN: warm and dry, fistula RUE with palpable thrill. NEUROLOGIC: CN 2-12 grossly intact, normal cognition, normal speech, no tremor. No gross focal deficits. PSYCHIATRIC: alert cooperative and oriented to person, place and time. Euthymic mood, makes good eye contact Results & Data Results & Data ([facility]) Vital Signs (Past 12 Hours) Vital Signs Temp Pulse Resp BP Pulse Ox 05/03/20 07:40 37.1 C 69 16 181/89 H 96 05/02/20 23:33 36.9 C 66 14 157/82 H 95 Laboratory Results Short CBC 05/03/20 Range/Units 05:23 WBC 6.21 (4.8-10.8) K/uL Hgb 8.9 L (14.0-18.0) g/dL Hct 27.7 L (42-52) % Plt Count 194 (130-400) K/uL BMP 05/03/20 05:23 Sodium 137 Potassium 4.8 Chloride 99 Carbon Dioxide 31 BUN 44 H Creatinine 6.17 H* D Glucose 158 H Calcium 9.0 Diagnostic Findings XR chest 1V portable HISTORY: 35 years-old Male pneumonia, monitor progress infiltrates acute shortness of breath with pneumonia COMPARISON: Chest radiograph 05/01/2020 TECHNIQUE: Portable AP view of the chest FINDINGS: Cardiac silhouette is upper limits of normal in size. Unchanged diffuse interstitial opacities. No pneumothorax, large pleural effusion or airspace consolidation typical for pneumonia. Bones appear grossly intact. IMPRESSION: Unchanged diffuse bilateral reticular opacities are again suspicious for an atypical infectious or inflammatory pneumonitis. Pulmonary edema could appear similarly. Medications Administered Current Inpatient Medications Acetaminophen (Acetaminophen 325 Mg Tab) 650 mg PO Q4H PRN PRN Reason: pain/fever Stop: 05/31/20 17:38 Acetaminophen/Codeine Phosphate (Acetaminophen W/Codeine #3 1 Tab) 1 tab PO Q4H PRN PRN Reason: pain or chest pain Stop: 06/01/20 19:20 Last Admin: 05/02/20 20:10 Dose: 1 tab Documented by: Albuterol (Albut/Ipratrop 3mg/0.5mg Neb 3 Ml Vial) 3 ml NEB QIDR PRN PRN Reason: SOB/wheezing Stop: 05/31/20 18:59 Amlodipine Besylate (Amlodipine Besylate 5 Mg Tab) 10 mg PO DAILY EMERY Stop: 06/01/20 08:59 Last Admin: 05/03/20 10:21 Dose: 10 mg Documented by: Atorvastatin Calcium (Atorvastatin 40 Mg Tab) 40 mg PO HS EMERY Stop: 05/31/20 20:59 Last Admin: 05/02/20 21:40 Dose: 40 mg Documented by: Calcium Acetate (Calcium Acetate 667 Mg Cap/Tab) 2,668 mg PO TIDM EMERY Stop: 06/01/20 07:59 Last Admin: 05/03/20 07:38 Dose: 2,668 mg Documented by: Carvedilol (Carvedilol 25 Mg Tab) 25 mg PO QAM EMERY Stop: 06/01/20 08:59 Last Admin: 05/03/20 10:20 Dose: 25 mg Documented by: Carvedilol (Carvedilol 12.5 Mg Tab) 37.5 mg PO HS EMERY Stop: 05/31/20 20:59 Last Admin: 05/02/20 21:39 Dose: 37.5 mg Documented by: Clopidogrel Bisulfate (Clopidogrel Bisulfate 75 Mg Tab) 75 mg PO QAM EMERY Stop: 06/01/20 08:59 Last Admin: 05/03/20 10:22 Dose: 75 mg Documented by: Dextrose (Dextrose 50% 50 Ml Syringe) 25 - 50 ml IV UD PRN; Protocol PRN Reason: Hypoglycemia Protocol Stop: 05/31/20 17:59 Doxazosin Mesylate (Doxazosin Mesylate Tab 2 Mg Tab) 2 mg PO HS [facility] Stop: 05/31/20 20:59 Last Admin: 05/02/20 21:42 Dose: 2 mg Documented by: Glucagon (Glucagon For Inj 1 Mg Vial) 1 mg IM UD PRN; Protocol PRN Reason: Hypoglycemia Protocol Stop: 05/31/20 17:59 Glucose (Glucose 40% Gel 15 Gm Tube) 15 - 30 gm PO UD PRN; Protocol PRN Reason: Hypoglycemia Protocol Stop: 05/31/20 17:59 Glucose (Glucose 10 Tabs/Tube) 4 - 8 tabs PO UD PRN; Protocol PRN Reason: Hypoglycemia Protocol Stop: 05/31/20 17:59 Guaifenesin/Codeine Phosphate (Guaifenesin/Codeine 200mg/20mg 10ml Udc) 10 ml PO Q6H PRN PRN Reason: Cough Stop: 06/02/20 10:24 Hydralazine HCl (Hydralazine Tab 50 Mg Tab) 50 mg PO BID [facility] Stop: 06/02/20 08:59 Last Admin: 05/03/20 10:19 Dose: 50 mg Documented by: Piperacillin Sod/Tazobactam (Sod 3.375 gm/ Dextrose) 115 mls @ 28.75 mls/hr IV Q12H EMERY; Protocol Stop: 05/09/20 00:00 Last Infusion: 05/03/20 06:35 Dose: Infused Documented by: Sodium Chloride (Nss 1000ml) 1,000 mls @ 0 mls/hr IV .Q0M PRN PRN Reason: For Hemodialysis Use ONLY Stop: 05/03/20 13:18 Insulin Aspart (Insulin Aspart 100 Units/Ml 3 Ml Pen) 0 units SC ACHS [facility]; Protocol Stop: 05/31/20 18:29 Last Admin: 05/03/20 08:14 Dose: 8 units Documented by: Insulin Glargine (Insulin Glargine Solostar 100 Units/Ml 3 Ml Pen) 0 units SC HS EMERY; Protocol Stop: 06/01/20 20:59 Last Admin: 05/02/20 21:52 Dose: 15 units Documented by: Miscellaneous (Carbohydrates For Hypoglycemia ) 15 - 30 gm PO UD PRN PRN Reason: Hypoglycemia Treatment Stop: 05/31/20 17:59 Miscellaneous Information (Piperacill/Tazobac Consult Active) 1 ea N/A UD PRN PRN Reason: Consult Stop: 05/31/20 14:17 Miscellaneous Information (Pharmacy Glycemic Mgmt Consult) 1 ea N/A UD PRN PRN Reason: Consult Stop: 05/31/20 18:08 Morphine Sulfate (Morphine Sulfate 4 Mg/Ml 1 Ml Carp\Vial) 4 mg IV Q4H PRN PRN Reason: Chest Pain Stop: 05/16/20 19:20 Last Admin: 05/02/20 22:00 Dose: 4 mg Documented by: Ropinirole HCl (Ropinirole Hcl 0.25 Mg Tablet) 0.25 mg PO BID [facility] Stop: 05/31/20 20:59 Last Admin: 05/03/20 10:22 Dose: 0.25 mg Documented by: Sodium Chloride (Sodium Chloride 0.65% Na Soln 45 Ml ([place])) 2 sprays NA Q1H PRN PRN Reason: nasal irritation Stop: 06/01/20 16:38 Trazodone HCl (Trazodone Hcl 50 Mg Tab) 50 mg PO DAILY [facility] Stop: 06/01/20 08:59 Last Admin: 05/02/20 08:28 Dose: 50 mg Documented by: Vitamin D (Cholecalciferol 1,000 Units 25 Mcg Tab) 5,000 units PO QAM EMERY Stop: 06/01/20 08:59 Last Admin: 05/03/20 10:23 Dose: 5,000 units Documented by: (1) Aspiration pneumonia Aspiration pneumonia type: unspecified
--- NOTE | 2020-05-03 12:40 | Electrocardiogram Report ---
Test Reason : Blood Pressure : / mmHG Vent. Rate : 075 BPM Atrial Rate : 075 BPM P-R Int : 138 ms QRS Dur : 092 ms QT Int : 440 ms P-R-T Axes : 011 018 058 degrees QTc Int : 491 ms Normal sinus rhythm Poor R wave progression, consider anterior IL vs. lead placement vs. LVH When compared with ECG of 01-MAY-2020 13:15, No significant change was found Confirmed by Theo Lara ([id number]) on 05/03/2020 12:39:49 PM Referred By: REFERRED SELF Confirmed By:Tip Lara
[2020-05-03] MEDS: HEPARIN SOD (PORCINE) 1000 UNIT/ML 10 ML VIAL IV SCH ×2 (13:23→13:24)
[2020-05-03] MEDS ORDERED: HydrALAZINE HCL 20 MG/ML VIAL IV STA (15:16)
--- NOTE | 2020-05-03 15:30 | CT Scan Report ---
CT SCAN OF THE CHEST WITHOUT IV CONTRAST CLINICAL HISTORY: Sepsis. COMPARISON STUDY: Chest x-ray dated 05/03/2020. Chest CT dated 02/06/2019. TECHNIQUE: CT scan of the thorax was performed from the thoracic inlet to the upper abdomen. Images are reviewed in the axial, sagittal, and coronal planes. IV contrast was not administered for this ex amination as per the referring clinician. A dose lowering technique was utilized adhering to the [facility] of [place]. CT DOSE: 257.35 mGy.cm FINDINGS: Thyroid: Imaged portions of the thyroid gland are normal in size and attenuation. Thoracic aorta: The thoracic aorta is normal in caliber and demonstrates standard 3-vessel arch anato my. Heart: The heart is mildly enlarged and there is a small to moderate pericardial effusion. There are coronary artery calcifications. Lungs and pleural spaces: There are small pleural effusions with dependent consolidation. Intralobula r septal thickening suggests congestive failure. Minimal patchy groundglass foci in the upper lobes m ay represent mild interstitial edema. Mediastinum: There is no mediastinal lymphadenopathy. Maria: Not well assessed without IV contrast. Axillae: There is no axillary lymphadenopathy. Upper abdomen: A punctate nonobstructing calculus is seen in the upper pole of the right kidney. Ther e is trace perihepatic ascites. Skeletal structures: No lytic or blastic bony lesions are seen. Soft tissues: Gynecomastia is noted. IMPRESSION: 1. Cardiomegaly noting a small to moderate pericardial effusion. 2. Intralobular septal thickening suggests congestive failure. 3. There are small pleural effusions with dependent consolidation. This likely represents atelectasis and clinical correlation will be required. 4. Trace perihepatic ascites. 5. Right-sided nephrolithiasis. ACT 112: Negative or not required by law. Electronically signed by: Alvarez Juan M.D. 05/03/2020 3:29 PM
--- NOTE | 2020-05-03 16:40 | Pulmonary Consultation ---
Date of Consultation May 03, 2020 Assessment & Plan (1) Hypertensive urgency: (2) Acute respiratory failure with hypoxia: CT chest without contrast 05/03/2020 personally reviewed: There is very minimal groundglass opacities appreciated bilateral upper lobes more on the right side, bilateral lower lobe atelectasis. There is some interlobular thickening. Small bilateral pleural effusions. There is no clear infiltrate appreciated. There is no mediastinal lymphadenopathy. The groundglass opacities are most likely atypical pulmonary edema. --Acute hypoxic respiratory failure The etiology most likely in his case was secondary to fluid overload and hypert ensive urgency/emergency Patient got dialyzed and he felt better. I do not see any clear signs of pneumonia on the CT chest. No evidence of pneumonitis. Patient's procalcitonin was 3.77 at the time of presentation but in an end-stage renal disease patient I do not know if it has any significance. Patient had no fever, no WBC count. Plan: Looking at the CAT scan I do not think patient has an infection in the lung. Would discontinue antibiotics. Needs better blood pressure control and better control of his volume status. Patient did have cough when he came to the hospital without any wheezing. He even had posttussive emesis. No hemoptysis. There is significant family history of asthma. Patient could have asthma although I highly doubt it. Trial of albuterol inhaler as needed could be thought of on discharge. Outpatient pulmonary follow-up nonurgent. No further recommendations from pulmonary perspective. Please recall if needed. History of Present Illness Attending Physician: Alisha Palomino DO History of Present Illness 35-year-old male with past medical history of type 1 diabetes which was initially uncontrolled leading to end-stage renal disease, hypertension was admitted to hospital because of cough and posttussive emesis without any phlegm production. There was no fever or chills as per the patient. The cough started when he was laying down. Patient denies any reflux symptoms. Denies any postnasal drip. In the ED patient was found to be saturating 88% with systolic pressure in the 170s and 180s. Initial chest x-ray showed increase vascular markings bilaterally. Thought process was patient might have pneumonia and thus the reason pulmonary were consulted. Patient does not usually cough. At the time of examination today patient states he feels much better. He had gotten already dialysis x2 so far. Patient denies any autoimmune disease in the family. No history of sarcoidosis, lupus. No dry eyes, no difficulty swallowing. Does not complain of dry mouth. Denies any rayauds phenomena. Social history: [id number] smoking history, quit approximately 2018, denies any illicit drugs, social alcohol. Pets: Has 2 cats at home which is he is not allergic to Allergies Allergy/AdvReac Type Severity Reaction Status Date / Time NSAIDS (Non-Steroidal AdvReac RENAL Unverified 05/01/20 13:41 Anti-Inflamma FAILURE Home Medications Home Medications Medication Instructions Recorded Confirmed Type atorvastatin 40 mg PO HS 09/28/18 05/01/20 History calcium acetate(phosphat bind) 2,668 mg PO TIDM 09/28/18 05/01/20 History cholecalciferol (vitamin D3) 5,000 units PO QAM 09/28/18 05/01/20 History [Vitamin D3] clopidogrel 75 mg PO QAM 09/28/18 05/01/20 History doxazosin 2 mg PO HS 12/20/18 05/01/20 History insulin aspart U-100 [Novolog 1 sliding scale dose SUBCUT AC 12/20/18 05/01/20 History U-100 Insulin aspart] carvedilol 25 mg PO QAM 06/25/19 05/01/20 History carvedilol 37.5 mg PO HS 06/25/19 05/01/20 History ropinirole 0.25 mg PO BID 10/03/19 05/01/20 History trazodone 50 mg PO DAILY 10/03/19 05/01/20 History amlodipine 10 mg PO DAILY 10/16/19 05/01/20 History Lantus Solostar U-100 Insulin 10 unit SUBCUT PM 05/01/20 05/01/20 History hydralazine 25 mg PO BID 05/01/20 05/01/20 History valproic acid 250 mg PO UD 05/01/20 05/01/20 History Patient History Medical History Anemia in ESRD (end-stage renal disease) Bacteremia due to Staphylococcus aureus MSSA bacteremia 10/05/19 treated with cefazolin x 6 wks Charcot foot due to diabetes mellitus Diabetes mellitus type 1 with complications Diabetic nephropathy Diabetic neuropathy Diabetic retinopathy ESRD on dialysis Fatty liver History of peritoneal dialysis Hypertension Nephrotic syndrome due to diabetes mellitus Peritoneal dialysis catheter in place REMOVED 11/10/19 Prolonged QT interval TIA (transient ischemic attack) Surgical History S/P eye surgery Family History Mother Hypertension Grandfather (Maternal) Diabetes Grandmother (Maternal) Diabetes Grandmother (Paternal) Diabetes Social History Smoking Status: Former smoker Second Hand Exposure: No; Hx Alcohol Use: No Hx Substance Use: No Preferred Language: Lao Communication Ability: Effective Visual Impairment: Limited Parimutuel Clerk Required: No Beliefs That Will Affect Care: None marital status: Single Current Living Situation: Alone current occupational status: employed Feels Safe at Home: Yes Safety Concerns: Feels Safe At This Time Review of Systems Review of Systems: All systems reviewed & are unremarkable except as noted in HPI & below Physical Exam Physical Exam: Constitutional: No acute distress HEENT: EOMI, PERRLA Respiratory system: Good air entry bilaterally, no wheeze, no rhonchi, positive minimal crackles bilateral lower lobes CVS: S1-S2 positive, no murmurs or gallops Abdomen: Soft, nontender, nondistended, positive bowel sounds x4 Extremities: +2 pulses bilaterally radialis/ dorsalis pedis, no cyanosis, no edema, tattoos appreciated bilateral as well as upper back Neuro: Awake alert oriented x3 Psych: Normal mood and affect G/U: No [place] Skin: no rashes, warm and dry Lymphatic: no cervical or axillary lymphadenopathy Results & Data Results & Data ([facility]) Vital Signs (Past 12 Hours) Vital Signs Temp Pulse Pulse Pulse Resp BP BP 05/03/20 15:10 37.0 C 68 18 177/87 H 05/03/20 14:20 37.1 C 70 70 160/83 H 160/83 H 05/03/20 14:00 68 176/91 H 05/03/20 13:40 69 155/87 H 05/03/20 13:20 70 171/86 H 05/03/20 13:00 69 169/92 H 05/03/20 12:40 70 171/94 H 05/03/20 12:20 74 169/94 H 05/03/20 12:00 79 174/99 H 05/03/20 11:40 77 172/89 H 05/03/20 11:20 72 177/96 H 05/03/20 11:00 67 171/93 H 05/03/20 10:47 36.5 C 67 67 167/94 H 05/03/20 07:40 37.1 C 69 16 181/89 H Pulse Ox 05/03/20 15:10 95 05/03/20 14:20 05/03/20 14:00 05/03/20 13:40 05/03/20 13:20 05/03/20 13:00 05/03/20 12:40 05/03/20 12:20 05/03/20 12:00 05/03/20 11:40 05/03/20 11:20 05/03/20 11:00 05/03/20 10:47 05/03/20 07:40 96 05/03/20 05:23 05/03/20 05:23 PG Care Time/CCT Total # of Minutes Spent Total Time Spent with Patient: Total time spent is greater than 50% in coor dination of care (as documented) at patient's floor/unit and/or counseling patient: Coding Level of Care Code 40941 Inpt Consult Level 4 Diagnoses Hypertensive urgency I16.0 Acute respiratory failure with hypoxia J96.01
--- NOTE | 2020-05-03 18:55 | Discharge Summary ---
Date of Service May 03, 2020 Admission HPI Per Admitting Provider 35-year-old male with PMH DM type I on insulin, ESRD on dialysis, HTN, and other problems listed below who presents the ED for evaluation of cough and vomiting. Patient reports that last evening, he developed a cough and shortly after began vomiting. He reports that the vomiting was induced by his severe cough. Reports cough was productive for clear sputum. Denies hematemesis or coffee- ground emesis. Symptoms persisted throughout the night. He reports developing shortness of breath. Denies chills, does not have a thermometer at home to take his temperature. No abdominal pain or diarrhea. Denies chest pain. Reports some mild lightheadedness and dizziness however no syncopal event. Does continue to make a small amount of urine. In the ED, patient was hypoxic on room air at 88%. This improved with oxygen via nasal cannula. CXR shows diffuse bilateral interstitial opacities are suspicious for an atypical infectious or inflammatory pneumonitis. Patient is afebrile, no leukocytosis. He received nebulizer treatment, IV dexamethasone 10 mg, IV diphenhydramine 25 mg, IV famotidine, guaifenesin, IV Zosyn, IV prochlorperazine, IVF, IV Vanco. Patient reports improvement in his symptoms. Admission Exam Per Admitting Provider Constitutional: WD/WN, vitals as above Eyes: PERRL, conjunctivae normal, anicteric sclerae ENMT: external ear and nose normal, oropharynx normal Respiratory: normal respiratory effort; no respiratory distress Auscultation: + diminished lung sounds (Bilateral bases) Cardiovascular: Rate/Rhythm: regular rate and regular rhythm Vessels: normal peripheral pulses Extremities: no edema Gastrointestinal (Abdomen): normal bowel sounds, soft, nontender, no hepatosplenomegaly Musculoskeletal: no cyanosis or clubbing, extremities motor strength 5/5 Skin: no rashes, warm and dry Neurologic: PERRL, EOMI, accommodation nl, no face palsy, no dysarthria Psychiatric: A+Ox3, euthymic affect Principal Diagnosis acute hypoxic respiratory failure hypertensive urgency fluid overload in ESRD Discharge Data Allergies Allergy/AdvReac Type Severity Reaction Status Date / Time NSAIDS (Non-Steroidal AdvReac RENAL Unverified 05/01/20 13:41 Anti-Inflamma FAILURE Consultations 05/01/20 14:19 ED Decision to Admit Stat 05/01/20 17:39 Consult Nephrology Routine 05/03/20 09:02 Consult Pulmonology Routine Ordered Studies 05/03/20 11:24 CT chest wo con Urgent Hospital Course (1) Acute respiratory failure: (2) Hypoxia: (3) Hypertensive urgency: (4) ESRD on dialysis: (5) UTI (urinary tract infection): (6) Anemia in ESRD (end-stage renal disease): Patient presented from home with reports of cough and vomiting followed by shortness of breath shortly after. On arrival to the ER he was hypoxic on room air 88% and was started on supplemental oxygen via nasal cannula. A chest x-ray revealed possible signs of pneumonitis and he reported some posttussive vomiting that morning. He was started on vancomycin and Zosyn in the ER and was contin ued on Zosyn for possible aspiration pneumonia versus aspiration pneumonia. He had also received IV dexamethasone in the ER. Further steroids were not given. He did also have scheduled bronchodilator therapy. He continued on his dialysis schedule of Wednesday while inpatient and ultrafiltrate during sessions were used to manage fluid. Initially it was thought he was slightly f luid overloaded secondary to ESRD. He remained hypoxic for another couple of days but progressively felt better. He did have notably elevated blood pressure and was labeled as hypertensive urgency requiring several doses of IV antihypertensive and even Nitropaste which had to be pulled off secondary to side effects. His beauty operator noted his blood pressure is difficult to control and outpatient records reflect this. She increased his hydralazine from 20 to 50 mg twice daily. Pulmonary was consulted after a couple of days and reviewed his previous CT of the chest which revealed very minimal groundglass opacities in the bilateral upper lobes more on the right side and bilateral lower lobe atelectasis. He noted some interlobular thickening and small bilateral pleural effusions. There was no clear infiltrate appreciated, there was no mediastinal lymphadenopathy appreciated. He thought the groundglass opacities were more likely atypical pulmonary edema. Therefore, the etiology of his hypoxia was most likely secondary to fluid overload and hypertensive urgency; after dialysis he felt better. The patient did not have a fever or white count during the entire hospitalization. Therefore no further antibiotics were given and he was sent home. There were no further recommendations from pulmonary status. At time of discharge she was hemodynamically stable and afebrile and tolerating p.o. He was mentating ambulating at baseline and was oxygenating well on room air with ambulation. He was sent home in stable condition with close primary care follow-up recommended to assist with further blood pressure control as needed. Of note he did have a positive urinary tract infection which was covered by the Zosyn. He does perform self cathing on occasion making him higher risk for urinary tract infection. Total Time Total Time Spent Total Time Spent (In Minutes): 60 Total Time Includes: Examination of the Patient, Discharge Planning, Medication Reconciliation and Communication With Other Providers Discharge Plan Discharge Items Patient Disposition: Home - Self-Care Reason For Visit: PNEUMONIA Discharge Diagnosis: Acute respiratory failure 2/2 volume overload Improved with hemodialysis DMI Hypoxia resolved Condition on Discharge: Good Activity: Resume your previous activity Non-emergency contact: Primary Care Provider Call non-emergency contact if: you have any medication questions, your symptoms worsen, your pain is not controlled, your pain is worsening, your pain is unus ual for you and you have a fever Follow-up/Referrals: Ciro Singh MD [Primary Care Provider] - 05/08/20 1:00 pm (Date & Time 05/08/2020 1:00 PM Provider Shwetha Hicks MD Department Internal Medicine [facility] ) Diet: Carb Count or DM1 and Dialysis Renal Addtl Attending Provider Instructions: Please continue all medications as instructed on discharge list below. Please follow up with Dr. Coffey next week at the date and time above to recheck your blood pressure and ensure this is improved. Please continue with dialysis tomorrow as scheduled. It appears that your hypoxia and cough was all due to fluid overload, which was improved with dialysis, and this was not due to an infection or pneumonitis. It was a pleasure taking care of you! Please call if you have any questions or problems. You can reach a [facility] hospitalist on duty at [facility] 24 hours a day by calling [phone]. Take care of yourself. Alisha Palomino DO [facility] Hospitalist Pending Studies at Discharge: No Stand-Alone Forms: My [facility] [place] [facility], Smoking Cessation Medications and DC Order Prescriptions: New hydralazine 50 mg Tablet 50 mg PO BID Qty: 60 RF: 2 Continued atorvastatin 40 mg tablet 40 mg PO HS RF: 0 clopidogrel 75 mg tablet 75 mg PO QAM RF: 0 calcium acetate(phosphat bind) 667 mg Tablet 2,668 mg PO TIDM RF: 0 cholecalciferol (vitamin D3) [Vitamin D3] 5,000 unit Tablet 5,000 units PO QAM RF: 0 carvedilol 12.5 mg tablet 25 mg PO QAM RF: 0 carvedilol 12.5 mg tablet 37.5 mg PO HS RF: 0 trazodone 50 mg tablet 50 mg PO DAILY RF: 0 ropinirole 0.25 mg tablet 0.25 mg PO BID RF: 0 amlodipine 10 mg tablet 10 mg PO DAILY RF: 0 insulin aspart U-100 [Novolog U-100 Insulin aspart] 100 unit/mL solution 1 sliding scale dose subcut AC RF: 0 doxazosin 2 mg tablet 2 mg PO HS RF: 0 Lantus Solostar U-100 Insulin 100 unit/mL (3 mL) insulin pen 10 unit SUBCUT PM RF: 0 valproic acid 250 mg capsule 250 mg PO UD RF: 0 Discontinued hydralazine 25 mg tablet 25 mg PO BID RF: 0 Discharge Orders: Discharge Order (Routine); Ordered 05/03/20 Ordered By: Alisha Elkins/Other Patient Handouts: Managing Type 1 Diabetes Admission Data Admit Date/Time: 05/01/20 15:09 Attending Provider: Alisha Palomino Admit Provider: Wally Berg Primary Care Provider: Ciro Singh Other Providers: Wally Berg ; Kellie Bains ; Kendall Prasad Other Interventions: Discharge Summary Assessment (RN) Last Done: 05/03/20 19:20
--- NOTE | 2020-05-13 09:10 | Coding Query ---
CODING QUERY To promote full compliance with coding requirements relating to patient care, provider participation is requested in all cases of salesperson yard goods uncertainty. Please assist us with the question(s) below: Coding Question: Aspiration Pneumonia was documented in the record but was not on the Discharge Summary, please clarify if the patient was treated for aspiration pneumonia or if it was ruled-out. Thank you so much for your help! Have a great day! ( ) Aspiration Pneumonia, present on admission ( x) Aspiration Pneumonia, ruled out ( ) Other explanation: Thank you! Vicky Servin Principal Diagnosis: "that condition established after study, to be chiefly responsible for occasioning the admission of the patient to the hospital for care." Co-Existing Principal Diagnosis: "when two or more diagnoses equally meet the criteria for principal diagnosis as determined by the circumstances of admission, diagnostic work up, and/or therapy provided, and the Alphabetic Index, Tabular List, or another coding guideline does not provide sequencing direction, any one of the diagnoses may be sequenced first." "When the physician has documented what appears to be a current diagnosis in the body of the record, but has not included the diagnosis in the final diagnostic statement, the physician should be asked whether the diagnosis should be added." (Source Coding [facility] 2 QTR90. p3-4) MONIKA
== END 2020-05-03 19:26 | disposition home or self-care (01) | DRG 682 ==
LOC: ED 11:18 → SUATTDRO 15:09 → 3W 15:09

== ENCOUNTER 2020-06-11 10:31 | Inpatient (IN) ==
--- NOTE | 2020-06-11 11:11 | Emergency Department Note ---
History of Present Illness General Chief complaint: Fever Stated complaint: FEVER,NAUSEA,VOMITING Time Seen by Provider: 06/11/20 10:47 History of Present Illness Maximum Pain Intensity: 5 This is a 35-year-old insulin diabetic, hemodialysis patient the presents to the emergency department via private vehicle with complaints "fever, nausea, vomiting". Patient receives dialysis Wednesday, , Wednesday. He was scheduled to have dialysis today but patient notes that his temp was 101 F orally on arrival to dialysis and was unable to participate in dialysis per patient. Patient notes that for the past 2 days he has been experiencing nausea, vomiting, cough that is worse with lying flat, cough production of mucus at times, feeling puffy/fluid overloaded as well as a sore throat, headache, body aches, chills. The patient also notes some generalized abdominal discomfort/nausea. Overall discomfort currently is a 5/10. Patient is unsure if he has loss of taste or smell. He does not think he has been exposed to ill contacts. Home Medications Home Medications Medication Instructions Recorded Confirmed Type atorvastatin 40 mg PO HS 09/28/18 06/11/20 History calcium acetate(phosphat bind) 2,668 mg PO TIDM 09/28/18 06/11/20 History cholecalciferol (vitamin D3) 5,000 units PO QAM 09/28/18 06/11/20 History [Vitamin D3] clopidogrel 75 mg PO QAM 09/28/18 06/11/20 History doxazosin 2 mg PO HS 12/20/18 06/11/20 History insulin aspart U-100 [Novolog 1 sliding scale dose SUBCUT AC 12/20/18 06/11/20 History U-100 Insulin aspart] carvedilol 37.5 mg PO BID 06/25/19 06/11/20 History ropinirole 0.25 mg PO BID 10/03/19 06/11/20 History trazodone 50 mg PO HS 10/03/19 06/11/20 History amlodipine 10 mg PO QAM 10/16/19 06/11/20 History Lantus Solostar U-100 Insulin 10 unit SUBCUT HS 05/01/20 06/11/20 History valproic acid 250 mg PO UD 05/01/20 06/11/20 History hydralazine 50 mg PO BID #60 tab 05/03/20 06/11/20 Rx Allergies Allergy/AdvReac Type Severity Reaction Status Date / Time NSAIDS (Non-Steroidal AdvReac RENAL Unverified 06/11/20 12:26 Anti-Inflamma FAILURE Past Med/Surg History Medical History Anemia in ESRD (end-stage renal disease) Bacteremia due to Staphylococcus aureus MSSA bacteremia 10/05/19 treated with cefazolin x 6 wks Charcot foot due to diabetes mellitus Diabetes mellitus type 1 with complications Diabetic nephropathy Diabetic neuropathy Diabetic retinopathy ESRD on dialysis Fatty liver History of peritoneal dialysis Hypertension Nephrotic syndrome due to diabetes mellitus Peritoneal dialysis catheter in place REMOVED 11/10/19 Prolonged QT interval TIA (transient ischemic attack) Surgical History S/P eye surgery Family History Mother Hypertension Grandfather (Maternal) Diabetes Grandmother (Maternal) Diabetes Grandmother (Paternal) Diabetes Social History Smoking Status: Former smoker Second Hand Exposure: No; Do You Dip or Chew Tobacco: No; Hx Alcohol Use: No Hx Substance Use: No Preferred Language: [place] Communication Ability: Effective Visual Impairment: Limited Regulatory Assistant Required: No Beliefs That Will Affect Care: None marital status: Single Current Living Situation: Alone current occupational status: employed Feels Safe at Home: Yes Safety Concerns: Feels Safe At This Time Assistive Devices: Oxygen - Continuous Review of Systems A total of 10 systems reviewed and were otherwise negative Physical Exam Vital Signs Vital Signs - 24 hr 06/11/20 10:42 06/11/20 11:00 06/11/20 11:35 Temperature 37.5 C Temperature Source Oral Pulse Rate 82 Pulse Rate from SpO2 Sensor Respiratory Rate 20 Respiratory Effort / Characteristics Non-Labored Respiratory Depth Normal Blood Pressure 176/89 H Blood Pressure Mean 118 Pulse Oximetry 99 83 L Oxygen Delivery Method Room Air Room Air Nasal Cannula Oxygen Flow Rate 0 Sepsis Recent Fever Within 48 Hours Yes Sepsis New/Unexplained Change in Mental Status N/A Sepsis Action Taken by Nursing No Action Required Oxygen Flow Rate - Titration 4 Pulse Oximetry Post Tiitration 92 06/11/20 11:58 06/11/20 12:00 06/11/20 12:30 Temperature Temperature Source Pulse Rate 88 87 86 Pulse Rate from SpO2 Sensor 88 87 86 Respiratory Rate 26 H 32 H 24 Respiratory Effort / Characteristics Respiratory Depth Blood Pressure 169/93 H 161/82 H 173/92 H Blood Pressure Mean 126 125 123 Pulse Oximetry 90 94 93 Oxygen Delivery Method Nasal Cannula Nasal Cannula Nasal Cannula Oxygen Flow Rate 4 4 4 Sepsis Recent Fever Within 48 Hours Sepsis New/Unexplained Change in Mental Status Sepsis Action Taken by Nursing Oxygen Flow Rate - Titration Pulse Oximetry Post Tiitration 06/11/20 13:00 06/11/20 13:30 06/11/20 14:00 Temperature Temperature Source Pulse Rate 85 85 87 Pulse Rate from SpO2 Sensor 85 85 87 Respiratory Rate 26 H 30 H 24 Respiratory Effort / Characteristics Respiratory Depth Blood Pressure 176/93 H 173/92 H 168/89 H Blood Pressure Mean 124 125 120 Pulse Oximetry 94 94 94 Oxygen Delivery Method Nasal Cannula Nasal Cannula Nasal Cannula Oxygen Flow Rate 4 4 4 Sepsis Recent Fever Within 48 Hours Sepsis New/Unexplained Change in Mental Status Sepsis Action Taken by Nursing Oxygen Flow Rate - Titration Pulse Oximetry Post Tiitration 06/11/20 14:30 06/11/20 15:00 06/11/20 15:30 Temperature Temperature Source Pulse Rate 85 85 85 Pulse Rate from SpO2 Sensor 85 85 85 Respiratory Rate 27 H 23 22 Respiratory Effort / Characteristics Respiratory Depth Blood Pressure 171/88 H 173/91 H 175/89 H Blood Pressure Mean 120 128 120 Pulse Oximetry 95 93 94 Oxygen Delivery Method Nasal Cannula Oxygen Flow Rate 4 4 4 Sepsis Recent Fever Within 48 Hours Sepsis New/Unexplained Change in Mental Status Sepsis Action Taken by Nursing Oxygen Flow Rate - Titration Pulse Oximetry Post Tiitration 06/11/20 16:00 06/11/20 16:30 Temperature Temperature Source Pulse Rate 85 85 Pulse Rate from SpO2 Sensor 85 85 Respiratory Rate 23 20 Respiratory Effort / Characteristics Respiratory Depth Blood Pressure 174/88 H 177/89 H Blood Pressure Mean 123 120 Pulse Oximetry 96 94 Oxygen Delivery Method Nasal Cannula Nasal Cannula Oxygen Flow Rate 4 4 Sepsis Recent Fever Within 48 Hours Sepsis New/Unexplained Change in Mental Status Sepsis Action Taken by Nursing Oxygen Flow Rate - Titration Pulse Oximetry Post Tiitration VITAL SIGNS - Vital signs and nursing notes were reviewed. Stable however borderline febrile. GENERAL -35-year-old male his appearing stated age who is in no acute distress but is sitting at the bedside, he appears to be experiencing chills but no rigors. Communicates well with provider and answers questions appropriately. SKIN - Without rashes. HEAD - NC/AT. EYES - PERRL with EOMI bilaterally. Sclera anicteric. EARS - No deformities of external structures noted on gross examination bilaterally. NOSE - Midline and without cyanosis. No epistaxis or purulent drainage noted. Septum midline without deviation or septal hematoma noted. MOUTH/OROPHARYNX - Without perioral cyanosis. Buccal mucosa pink and moist and without leukoplakia. Tongue midline with equal elevation of palate bilaterally. No tonsillar hypertrophy, erythema, or exudates noted. Fair dentition noted. NECK - Neck with FROM. Supple to palpation. No lymphadenopathy noted. No nuchal rigidity. LUNGS - Chest wall symmetric without accessory muscle use, intercostals retractions, or central cyanosis. Normal vesicular breath sounds CTA B/L. No wheezes, rales, or rhonchi appreciated. CARDIAC - RRR with S1/S2. No murmur, rubs, or gallops appreciated. ABDOMEN - Abdominal contour normal without pulsations or visible masses. BS normoactive all four quadrants. No tenderness, palpable masses, hepatosplenomegaly, or ascites noted. EXTREMITIES - No clubbing or peripheral cyanosis. No pretibial edema present.+5/5 strength noted in UE/LE bilaterally. NEUROLOGIC - Cranial nerves II through XII grossly intact. PSYCH - A&Ox3 and cooperates fully with examiner. Pt is very pleasant and interacts well with examiner. Course Administered Medications Albuterol (Albut/Ipratrop 3mg/0.5mg Neb 3 Ml Vial) 3 ml NEB Q4R PRN PRN Reason: Shortness Of Breath Or Wheezing Stop: 07/11/20 19:24 Last Admin: 06/11/20 21:19 Dose: 3 ml Documented by: [id number] Amlodipine Besylate (Amlodipine Besylate 5 Mg Tab) 10 mg PO QAM EMERY Stop: 07/11/20 19:24 Last Admin: 06/11/20 21:48 Dose: 10 mg Documented by: [id number] Atorvastatin Calcium (Atorvastatin 40 Mg Tab) 40 mg PO HS EMERY Stop: 07/11/20 20:59 Last Admin: 06/11/20 21:48 Dose: 40 mg Documented by: [id number] Carvedilol (Carvedilol 25 Mg Tab) 37.5 mg PO BID [facility] Stop: 07/11/20 20:59 Last Admin: 06/11/20 21:49 Dose: 37.5 mg Documented by: [id number] Doxazosin Mesylate (Doxazosin Mesylate Tab 2 Mg Tab) 2 mg PO HS [facility] Stop: 07/11/20 20:59 Last Admin: 06/11/20 21:48 Dose: 2 mg Documented by: [id number] Heparin Sodium (Porcine) (Heparin Sod 5,000 Unit/0.5 Ml Vial) 5,000 units SQ Q12 EMERY Stop: 07/11/20 20:59 Last Admin: 06/11/20 22:11 Dose: Not Given Documented by: [id number] Hydralazine HCl (Hydralazine Tab 50 Mg Tab) 50 mg PO BID [facility] Stop: 07/11/20 20:59 Last Admin: 06/11/20 22:10 Dose: 50 mg Documented by: [id number] Piperacillin Sod/Tazobactam (Sod 3.375 gm/ Dextrose) 115 mls @ 28.75 mls/hr IV Q12H [facility]; Protocol Stop: 06/19/20 00:00 Last Infusion: 06/12/20 03:47 Dose: 0 mls/hr Documented by: [id number] Admin: 06/12/20 00:04 Dose: 28.8 mls/hr Documented by: [id number] Insulin Glargine (Insulin Glargine Solostar 100 Units/Ml 3 Ml Pen) 10 units SQ BID [facility] Stop: 07/11/20 20:59 Last Admin: 06/11/20 22:11 Dose: 10 units Documented by: [id number] Cosigned by: [id number] Miscellaneous (Valproic Acid - Order Awaiting Action) 1 ea N/A QS [facility] Stop: 07/12/20 00:00 Last Admin: 06/12/20 00:05 Dose: Not Given Documented by: [id number] Ropinirole HCl (Ropinirole Hcl 0.25 Mg Tablet) 0.25 mg PO BID [facility] Stop: 07/11/20 20:59 Last Admin: 06/11/20 22:11 Dose: 0.25 mg Documented by: [id number] Trazodone HCl (Trazodone Hcl 50 Mg Tab) 50 mg PO [facility] Stop: 07/11/20 20:59 Last Admin: 06/11/20 22:11 Dose: 50 mg Documented by: [id number] Discontinued Medications Acetaminophen (Acetaminophen 325 Mg Tab) Confirm Administered Dose 650 mg .ROUTE .STK-MED ONE Stop: 06/11/20 19:32 Last Admin: 06/11/20 19:32 Dose: 650 mg Documented by: [id number] Albuterol (Albuterol Hfa 8 Gm Inhaler) 2 puffs INH NOW ONE Stop: 06/11/20 12:17 Last Admin: 06/11/20 13:31 Dose: 2 puffs Documented by: [id number] Piperacillin Sod/Tazobactam Sod (Zosyn) 4.5 gm in 120 mls @ 240 mls/hr IV NOW ONE Stop: 06/11/20 12:46 Last Infusion: 06/11/20 14:05 Dose: 0 mls/hr Documented by: [id number] Admin: 06/11/20 13:31 Dose: 240 mls/hr Documented by: [id number] Morphine Sulfate (Morphine Sulfate 2 Mg/Ml Carp) 2 mg IV NOW STA Stop: 06/11/20 21:26 Last Admin: 06/11/20 21:39 Dose: 2 mg Documented by: [id number] Ondansetron HCl (Ondansetron Inj 2 Mg/Ml 2 Ml Vial) 4 mg IV NOW STA Stop: 06/11/20 17:22 Last Admin: 06/11/20 18:15 Dose: 4 mg Documented by: [id number] Oxycodone HCl (Oxycodone Hcl Ir 5 Mg Tab (Immediate Release)) 5 mg PO NOW STA Stop: 06/11/20 21:01 Last Admin: 06/11/20 21:35 Dose: Not Given Documented by: [id number] Oxycodone HCl (Oxycodone Hcl Ir 5 Mg Tab (Immediate Release)) Confirm Administered Dose 5 mg .ROUTE .STK-MED ONE Stop: 06/11/20 21:05 Last Admin: 06/11/20 21:05 Dose: 5 mg Documented by: [id number] Medical Decision Making Laboratory Data Result diagrams: 06/12/20 04:26 06/12/20 04:26 Lab Results 06/11/20 06/11/20 06/11/20 Range/Units 11:00 11:00 11:30 WBC (4.8-10.8) K/uL RBC (4.7-6.1) M/uL Hgb (14.0-18.0) g/dL Hct (42-52) % MCV (80-100) fL MCH (25-34) pg MCHC (32-36) g/dL RDW Std Deviation (36.4-46.3) fL RDW Coeff of Ralph (11.5-14.5) % Plt Count (130-400) K/uL MPV (7.4-10.4) fL Immature Gran % (Auto) % Neut % (Auto) % Lymph % (Auto) % Hitchcock % (Auto) % Eos % (Auto) % Baso % (Auto) % Neut # (Auto) (1.4-6.5) K/uL Lymph # (Auto) (1.2-3.4) K/uL Hitchcock # (Auto) (0.11-0.59) K/uL Eos # (Auto) (0-0.5) K/uL Baso # (Auto) (0-0.2) K/uL Immature Gran # (Auto) (0.00-0.02) K/uL Sodium (136-145) mmol/L Potassium (3.5-5.1) mmol/L Chloride (98-107) mmol/L Carbon Dioxide (21-32) mmol/L Anion Gap (3-11) BUN (7-18) mg/dl Creatinine (0.6-1.4) mg/dl Est Cr Clr Drug Dosing ml/min Est GFR ( Amer) Est GFR (Non-Af Amer) BUN/Creatinine Ratio (10-20) Glucose (70-99) mg/dl Lactate (0.4-2.0) mmol/L Calcium (8.5-10.1) mg/dl Magnesium (1.8-2.4) mg/dl Total Bilirubin (0.2-1) mg/dl AST (15-37) U/L ALT (12-78) U/L Alkaline Phosphatase (45-117) U/L Troponin I (0-0.045) ng/ml Total Protein (6.4-8.2) gm/dl Albumin (3.4-5.0) gm/dl Globulin (2.5-4.0) gm/dl Albumin/Globulin Ratio (0.9-2) Lipase (73-393) U/L Procalcitonin 0.63 H (0-0.5) ng/ml TSH (0.300-4.500) uIu/ml Adenovirus (PCR) (NotDetected) B. pertussis DNA (PCR) (NotDetected) B.parapertussis DNA PCR (NotDetected) C. pneumoniae DNA (PCR) (NotDetected) Coronavirus OC43 (PCR) (NotDetected) Coronavirus HKU1 (PCR) (NotDetected) Coronavirus 229E (PCR) (NotDetected) COVID-19 Eval Order COVID-19 PCR (Negative) Coronavirus NL63 (PCR) (NotDetected) Human Metapneumovir PCR (NotDetected) Influenza Type A (PCR) (NotDetected) Influ A Molecular Assay Negative (Negative) Influenza Type B (PCR) (NotDetected) Influ B Molecular Assay Negative (Negative) M. pneumoniae (PCR) (NotDetected) Parainfluenza 1 (PCR) (NotDetected) Parainfluenza 2 (PCR) (NotDetected) Parainfluenza 3 (PCR) (NotDetected) Parainfluenza 4 (PCR) (NotDetected) RSV (PCR) (NotDetected) Entero/Rhino (PCR) (NotDetected) Group A Strep (PCR) NOT DETECTED (NotDetected) 06/11/20 06/11/20 06/11/20 Range/Units 11:30 11:30 11:45 WBC 7.18 (4.8-10.8) K/uL RBC 2.99 L (4.7-6.1) M/uL Hgb 9.6 L (14.0-18.0) g/dL Hct 29.8 L (42-52) % MCV 99.7 (80-100) fL MCH 32.1 (25-34) pg MCHC 32.2 (32-36) g/dL RDW Std Deviation 57.1 H (36.4-46.3) fL RDW Coeff of Ralph 15.9 H (11.5-14.5) % Plt Count 152 (130-400) K/uL MPV 11.4 H (7.4-10.4) fL Immature Gran % (Auto) 0.1 % Neut % (Auto) 83.9 % Lymph % (Auto) 8.9 % Hitchcock % (Auto) 6.4 % Eos % (Auto) 0.1 % Baso % (Auto) 0.6 % Neut # (Auto) 6.02 (1.4-6.5) K/uL Lymph # (Auto) 0.64 L (1.2-3.4) K/uL Hitchcock # (Auto) 0.46 (0.11-0.59) K/uL Eos # (Auto) 0.01 (0-0.5) K/uL Baso # (Auto) 0.04 (0-0.2) K/uL Immature Gran # (Auto) 0.01 (0.00-0.02) K/uL Sodium 137 (136-145) mmol/L Potassium 4.7 (3.5-5.1) mmol/L Chloride 98 (98-107) mmol/L Carbon Dioxide 26 (21-32) mmol/L Anion Gap 12.0 H (3-11) BUN 59 H (7-18) mg/dl Creatinine 10.20 H* (0.6-1.4) mg/dl Est Cr Clr Drug Dosing 10.2 ml/min Est GFR ( Amer) 6.7 Est GFR (Non-Af Amer) 5.8 BUN/Creatinine Ratio 5.8 L (10-20) Glucose 192 H (70-99) mg/dl Lactate 0.6 (0.4-2.0) mmol/L Calcium 8.9 (8.5-10.1) mg/dl Magnesium 2.8 H (1.8-2.4) mg/dl Total Bilirubin 0.5 (0.2-1) mg/dl AST 9 L (15-37) U/L ALT 17 (12-78) U/L Alkaline Phosphatase 57 (45-117) U/L Troponin I < 0.015 (0-0.045) ng/ml Total Protein 7.2 (6.4-8.2) gm/dl Albumin 3.7 (3.4-5.0) gm/dl Globulin 3.5 (2.5-4.0) gm/dl Albumin/Globulin Ratio 1.1 (0.9-2) Lipase 62 L (73-393) U/L Procalcitonin (0-0.5) ng/ml TSH 1.650 (0.300-4.500) uIu/ml Adenovirus (PCR) (NotDetected) B. pertussis DNA (PCR) (NotDetected) B.parapertussis DNA PCR (NotDetected) C. pneumoniae DNA (PCR) (NotDetected) Coronavirus OC43 (PCR) (NotDetected) Coronavirus HKU1 (PCR) (NotDetected) Coronavirus 229E (PCR) (NotDetected) COVID-19 Eval Order COVID-19 PCR (Negative) Coronavirus NL63 (PCR) (NotDetected) Human Metapneumovir PCR (NotDetected) Influenza Type A (PCR) (NotDetected) Influ A Molecular Assay (Negative) Influenza Type B (PCR) (NotDetected) Influ B Molecular Assay (Negative) M. pneumoniae (PCR) (NotDetected) Parainfluenza 1 (PCR) (NotDetected) Parainfluenza 2 (PCR) (NotDetected) Parainfluenza 3 (PCR) (NotDetected) Parainfluenza 4 (PCR) (NotDetected) RSV (PCR) (NotDetected) Entero/Rhino (PCR) (NotDetected) Group A Strep (PCR) (NotDetected) 06/11/20 06/11/20 06/11/20 Range/Units 11:50 11:50 15:40 WBC (4.8-10.8) K/uL RBC (4.7-6.1) M/uL Hgb (14.0-18.0) g/dL Hct (42-52) % MCV (80-100) fL MCH (25-34) pg MCHC (32-36) g/dL RDW Std Deviation (36.4-46.3) fL RDW Coeff of Ralph (11.5-14.5) % Plt Count (130-400) K/uL MPV (7.4-10.4) fL Immature Gran % (Auto) % Neut % (Auto) % Lymph % (Auto) % Hitchcock % (Auto) % Eos % (Auto) % Baso % (Auto) % Neut # (Auto) (1.4-6.5) K/uL Lymph # (Auto) (1.2-3.4) K/uL Hitchcock # (Auto) (0.11-0.59) K/uL Eos # (Auto) (0-0.5) K/uL Baso # (Auto) (0-0.2) K/uL Immature Gran # (Auto) (0.00-0.02) K/uL Sodium (136-145) mmol/L Potassium (3.5-5.1) mmol/L Chloride (98-107) mmol/L Carbon Dioxide (21-32) mmol/L Anion Gap (3-11) BUN (7-18) mg/dl Creatinine (0.6-1.4) mg/dl Est Cr Clr Drug Dosing ml/min Est GFR ( Amer) Est GFR (Non-Af Amer) BUN/Creatinine Ratio (10-20) Glucose (70-99) mg/dl Lactate (0.4-2.0) mmol/L Calcium (8.5-10.1) mg/dl Magnesium (1.8-2.4) mg/dl Total Bilirubin (0.2-1) mg/dl AST (15-37) U/L ALT (12-78) U/L Alkaline Phosphatase (45-117) U/L Troponin I (0-0.045) ng/ml Total Protein (6.4-8.2) gm/dl Albumin (3.4-5.0) gm/dl Globulin (2.5-4.0) gm/dl Albumin/Globulin Ratio (0.9-2) Lipase (73-393) U/L Procalcitonin (0-0.5) ng/ml TSH (0.300-4.500) uIu/ml Adenovirus (PCR) Not Detected (NotDetected) B. pertussis DNA (PCR) Not Detected (NotDetected) B.parapertussis DNA PCR Not Detected (NotDetected) C. pneumoniae DNA (PCR) Not Detected (NotDetected) Coronavirus OC43 (PCR) Not Detected (NotDetected) Coronavirus HKU1 (PCR) Not Detected (NotDetected) Coronavirus 229E (PCR) Not Detected (NotDetected) COVID-19 Eval Order Covid19 Done at [facility] COVID-19 PCR NEGATIVE Not Detected (Negative) Coronavirus NL63 (PCR) Not Detected (NotDetected) Human Metapneumovir PCR Not Detected (NotDetected) Influenza Type A (PCR) Not Detected (NotDetected) Influ A Molecular Assay (Negative) Influenza Type B (PCR) Not Detected (NotDetected) Influ B Molecular Assay (Negative) M. pneumoniae (PCR) Not Detected (NotDetected) Parainfluenza 1 (PCR) Not Detected (NotDetected) Parainfluenza 2 (PCR) Not Detected (NotDetected) Parainfluenza 3 (PCR) Not Detected (NotDetected) Parainfluenza 4 (PCR) Not Detected (NotDetected) RSV (PCR) Not Detected (NotDetected) Entero/Rhino (PCR) DETECTED A* (NotDetected) Group A Strep (PCR) (NotDetected) Imaging Data Radiologist's Impression: XR chest 1V portable CLINICAL HISTORY: Fever. COMPARISON STUDY: Chest radiograph and chest CT May 03, 2020. FINDINGS: Moderate enlargement of the cardiac silhouette is noted. Small bilateral pleural effusions are noted. Interstitial thickening has increased. There are are bibasilar airspace opacities. There is no pneumothorax. IMPRESSION: 1. Cardiomegaly with interval increase in pulmonary edema. 2. Small bilateral pleural effusions with bibasilar opacities that favor atelectasis although an infectious process could appear similar. ACT 112: Negative or not required by law. Electronically signed by: Sharan Bishop M.D. 06/11/2020 12:27 PM MDM Narrative Patient was seen and evaluated as above in room B8. Review was performed of nursing notes and vital signs. I did review pertinent previous visits and patient history. After obtaining a thorough history and physical examination the above work up was performed. Patient presents to us today noting that he was febrile and unable to participate in dialysis secondary to this. He notes that for the past 2 days he has been experiencing body aches, chills, headache, cough, vomiting, nausea and abdominal discomfort. I will note the patient is currently being seen during the COVID-19 pandemic. Patient has been tested 1 time previously about a month ago for this and was negative. Patient is unaware of any contacts that have been ill lately. On arrival the patient does appear to be more swollen compared to his baseline overall and is pale. The patient is borderline febrile. IV access was established. Blood cultures were drawn. The above work-up was performed. No leukocytosis. Stable anemia noted. Creatinine elevated at 10.20 consistent with the patient history of requiring hemodialysis. Glucose 192. Magnesium elevated at 2.8. Procalcitonin mildly elevated at 0.63. Initial Covid testing is negative. Influenza a and B-. Strep negative. Chest x-ray obtained and results as above. There is cardiomegaly with increased pulmonary edema. In the lower lobe region there is concern for possible infectious process. Patient then desatted and was placed on oxygen. Empiric Zosyn was added. Patient will require inpatient management for his presentation of fever, associated ill symptoms in the setting of hypoxia now and worsening chest x-ray. Patient was educated upon these findings. Case discussed with attending physician. Case discussed with the hospitalist. Please refer to further documentation regarding his stay. EKG per my interpretation reveals normal sinus rhythm at a rate of [address] bpm[address] elevation. No [place] by ekg criteria. An order was placed for continuous cardiac monitoring. The monitor shows a rate of 85 with sinus rhythm. I attest that I have personally reviewed the patient medication list. I attest that I have reviewed the patient's blood pressure and it was found to be elevated. GCS: 15 In the evaluation and treatment of this patient the following differential diagn oses were entertained: Sepsis, meningitis, encephalitis, pneumonia, PE, COVID- 19, among others. Impression & Plan Hypoxia, Acute dyspnea, Cough, Fever, Fluid overload Discharge Plan Visit Data Chief Complaint: Fever Stated Complaint: FEVER,NAUSEA,VOMITING ED Provider: Alvarez Patel ED Midlevel Provider: Brennen Wiseman Discharge Problem: Hypoxia, Acute dyspnea, Cough, Fever, Fluid overload Patient Disposition: Admitted As Inpatient Condition: Fair Discharge Instructions Interventions: ED Discharge Assessment Last Done: 06/11/20 18:56
[2020-06-11 11:59] LABS: Basophils # (auto) 0.04 K/uL (0-0.2); Basophils % (auto) 0.6 %; Eosinophils # (auto) 0.01 K/uL (0-0.5); Eosinophils % (auto) 0.1 %; Hematocrit (blood only) 29.8 % (42-52); Hemoglobin 9.6 g/dL (14.0-18.0); Immature Granulocytes # (auto) 0.01 K/uL (0.00-0.02); Immature Granulocytes % (auto) 0.1 %; Lymphocytes # (auto) 0.64 K/uL (1.2-3.4); Lymphocytes % (auto) 8.9 %; Mean Corpuscular Hemoglobin 32.1 pg (25-34); Mean Corpuscular Hgb Conc 32.2 g/dL (32-36); Mean Corpuscular Volume 99.7 fL (80-100); Mean Platelet Volume 11.4 fL (7.4-10.4); Monocytes # (auto) 0.46 K/uL (0.11-0.59); Monocytes % (auto) 6.4 %; Neutrophils # (auto) 6.02 K/uL (1.4-6.5); Neutrophils % (auto) 83.9 %; Platelet Count 152 K/uL (130-400); RDW Coefficient of Variation 15.9 % (11.5-14.5); RDW Standard Deviation 57.1 fL (36.4-46.3); Red Blood Count 2.99 M/uL (4.7-6.1); White Blood Count 7.18 K/uL (4.8-10.8)
[2020-06-11] MEDS ORDERED: ALBUTEROL HFA 8 GM INHALER INH ONE (12:16)
[2020-06-11] MEDS ORDERED: PIPERACILLIN/TAZOBACTAM 4.5 GM/120 ML BAG IV ONE (12:17)
[2020-06-11] MEDS ORDERED: PIPERACILL/TAZOBAC CONSULT ACTIVE PRN ×2 (12:17→19:25)
--- NOTE | 2020-06-11 12:28 | XRay Report ---
XR chest 1V portable CLINICAL HISTORY: Fever. COMPARISON STUDY: Chest radiograph and chest CT May 03, 2020. FINDINGS: Moderate enlargement of the cardiac silhouette is noted. Small bilateral pleural effusions are noted. Interstitial thickening has increased. There are are bibasilar airspace opacities. There i s no pneumothorax. IMPRESSION: 1. Cardiomegaly with interval increase in pulmonary edema. 2. Small bilateral pleural effusions with bibasilar opacities that favor atelectasis although an infe ctious process could appear similar. ACT 112: Negative or not required by law. Electronically signed by: Sharan Bishop M.D. 06/11/2020 12:27 PM
[2020-06-11 12:31] LABS: Alanine Aminotransferase 17 U/L (12-78); Albumin Globulin Ratio 1.1 (0.9-2); Albumin Level 3.7 gm/dl (3.4-5.0); Alkaline Phosphatase 57 U/L (45-117); Aspartate Aminotransferase 9 U/L (15-37); BUN Creatinine Ratio 5.8 (10-20); Bilirubin,Total 0.5 mg/dl (0.2-1); Blood Urea Nitrogen 59 mg/dl (7-18); Calcium 8.9 mg/dl (8.5-10.1); Carbon Dioxide 26 mmol/L (21-32); Chloride 98 mmol/L (98-107); Creatinine Clr Calc Pharmacy 10.2 ml/min; Est GFR (African American) 6.7; Est GFR (Non-African American) 5.8; Globulin 3.5 gm/dl (2.5-4.0); Glucose 192 mg/dl (70-99); Lipase 62 U/L (73-393); Magnesium 2.8 mg/dl (1.8-2.4); Potassium 4.7 mmol/L (3.5-5.1); Sodium 137 mmol/L (136-145); Total Protein 7.2 gm/dl (6.4-8.2); Troponin I < 0.015 ng/ml (0-0.045)
--- NOTE | 2020-06-11 12:43 | Emergency Department Note ---
ED Visit Note Patient was seen by our PA/SKIVER OPERATOR. I was involved in the patient's care and did evaluate the patient myself. I was involved in the care throughout the ER stay. Patient presents with chills and reported fever at dialysis. He has a history of noncompliance with dialysis. The patient complained of chills and nausea/vomiting. Work-up does suggest pneumonia as a cause for his difficulty. Covid testing was ordered and is pending. He did develop some hypoxia during his ED stay. The patient is being hospitalized. Antibiotics have been ordered. The patient will require dialysis here at [facility]. .
[2020-06-11 12:59] LABS: Influenza A virus by PCR Negative (Negative); Influenza B virus by PCR Negative (Negative)
--- NOTE | 2020-06-11 16:19 | Electrocardiogram Report ---
Test Reason : Blood Pressure : / mmHG Vent. Rate : 088 BPM Atrial Rate : 088 BPM P-R Int : 142 ms QRS Dur : 088 ms QT Int : 390 ms P-R-T Axes : 042 021 067 degrees QTc Int : 472 ms Normal sinus rhythm Prolonged QT Abnormal ECG When compared with ECG of 02-MAY-2020 16:41, No significant change was found Confirmed by Tyler Kennedy ([id number]) on 06/11/2020 4:19:18 PM Referred By: Confirmed By:Tyler Kennedy
--- NOTE | 2020-06-11 16:33 | History & Physical Report ---
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 Continue outpatient medications where appropriate, Med/Surg observation status. ROS-No Headache, No Visual Changes, No Nausea, No Vomiting, positive fever, positive chills, No Neck Pain or Stiffness, No Chest Pain, No Palpitations, positive SOB, positive MORSE, positive cough, No Sputum, No Wheezing, No Abdominal Pain, No Diarrhea, No Hematemesis, No Hemoptysis, No Unexpected Weight Loss, No Flank pain, No Melena, No Hematochezia, No Frequency, No Urgency, No Burning, No Hematuria, No Rashes, No Diaphoresis. Appetite is Normal, cannot lie flat Physical Exam Gen-AAO x 3, NAD, febrile Head-NCAT, EOMI, PERRLA, Anicteric Sclera, No Posterior Pharyngeal Erythema Neck-Supple, No JVD, No Thyromegaly, No Masses, No LAD, No Bruits Lungs-lower bilateral Rales, No Rhonchi, No Wheezing, No Crepitus Chest-No S4, +S1, +S2, No S3, No Murmurs, No Rubs, No Gallops, No Ectopy Abdomen-Soft, Bowel Sounds Present, Non Tender, Non Distended, No Hepatomegaly, No Splenomegaly, No Palpable Masses, No Rebound, No Rigidity, No Guarding Musculoskeletal-Full Range of Motion Bilaterally, No CVAT Extremities-No Cyanosis, No Clubbing, No Edema Nuero-Cranial Nerves II-XII grossly intact, Motor WNL, DTRs WNL, Strength WNL, Non Focal Psych-Normal Mood History of Present Illness Chief Complaint: Fever, nausea and vomiting Primary Care Provider: Ciro Singh MD 35-year-old insulin dependent diabetic, history of noncompliance, acute respiratory failure, UTI, hypertensive urgency, aspiration pneumonia, sepsis, Staphylococcus bacteremia, prolonged QT interval, anemia of chronic renal disease, diabetic nephrotic syndrome, fatty liver, Charcot foot, diabetic nephropathy, diabetic neuropathy, diabetic retinopathy, and hypertension who is also on hemodialysis presents to the emergency department complaining of "fever, nausea, vomiting". Patient receives dialysis Wednesday, , Wednesday. He was scheduled to have dialysis today, but patient notes that his temp was 101 F orally on arrival to dialysis and was declined dialysis per patient. Patient notes that for the past 2 days he has been experiencing nausea, vomiting, cough that is worse with lying flat, cough production of mucus at times, feeling puffy/fluid overloaded as well as a sore throat, headache, body aches, chills. His first Covid test was negative we are repeating. Allergies Allergy/AdvReac Type Severity Reaction Status Date / Time NSAIDS (Non-Steroidal AdvReac RENAL Unverified 06/11/20 12:26 Anti-Inflamma FAILURE Home Medications Home Medications Medication Instructions Recorded Confirmed Type atorvastatin 40 mg PO HS 09/28/18 06/11/20 History calcium acetate(phosphat bind) 2,668 mg PO TIDM 09/28/18 06/11/20 History cholecalciferol (vitamin D3) 5,000 units PO QAM 09/28/18 06/11/20 History [Vitamin D3] clopidogrel 75 mg PO QAM 09/28/18 06/11/20 History doxazosin 2 mg PO HS 12/20/18 06/11/20 History insulin aspart U-100 [Novolog 1 sliding scale dose SUBCUT AC 12/20/18 06/11/20 History U-100 Insulin aspart] carvedilol 37.5 mg PO BID 06/25/19 06/11/20 History ropinirole 0.25 mg PO BID 10/03/19 06/11/20 History trazodone 50 mg PO HS 10/03/19 06/11/20 History amlodipine 10 mg PO QAM 10/16/19 06/11/20 History Lantus Solostar U-100 Insulin 10 unit SUBCUT HS 05/01/20 06/11/20 History valproic acid 250 mg PO UD 05/01/20 06/11/20 History hydralazine 50 mg PO BID #60 tab 05/03/20 06/11/20 Rx Past Med/Surg History Medical History Anemia in ESRD (end-stage renal disease) Bacteremia due to Staphylococcus aureus MSSA bacteremia 10/05/19 treated with cefazolin x 6 wks Charcot foot due to diabetes mellitus Diabetes mellitus type 1 with complications Diabetic nephropathy Diabetic neuropathy Diabetic retinopathy ESRD on dialysis Fatty liver History of peritoneal dialysis Hypertension Nephrotic syndrome due to diabetes mellitus Peritoneal dialysis catheter in place REMOVED 11/10/19 Prolonged QT interval TIA (transient ischemic attack) Surgical History S/P eye surgery Family History Mother Hypertension Grandfather (Maternal) Diabetes Grandmother (Maternal) Diabetes Grandmother (Paternal) Diabetes Social History Smoking Status: Former smoker Second Hand Exposure: No; Hx Alcohol Use: No Hx Substance Use: No Preferred Language: Montserratian Communication Ability: Effective Visual Impairment: Limited Etcher Electrolytic Required: No Beliefs That Will Affect Care: None marital status: Single Current Living Situation: Alone current occupational status: employed Feels Safe at Home: Yes Assistive Devices: Oxygen - Continuous Results & Data Results & Data ([facility]) Vital Signs (Past 12 Hours) Vital Signs Temp Pulse Resp BP Pulse Ox 06/11/20 15:30 85 22 175/89 H 94 06/11/20 15:00 85 23 173/91 H 93 06/11/20 14:30 85 27 H 171/88 H 95 06/11/20 14:00 87 24 168/89 H 94 06/11/20 13:30 85 30 H 173/92 H 94 06/11/20 13:00 85 26 H 176/93 H 94 06/11/20 12:30 86 24 173/92 H 93 06/11/20 12:00 87 32 H 161/82 H 94 06/11/20 11:58 88 26 H 169/93 H 90 06/11/20 11:35 83 L 06/11/20 11:00 37.5 C 06/11/20 10:42 82 20 176/89 H 99 Allergies NSAIDS (Non-Steroidal Anti-Inflamma Adverse Reaction (Unverified 06/11/20 12:26) RENAL FAILURE Height/Weight/Isolation Height 5 ft 10 in Weight 72.3 kg Isolation Type Airborne Precautions,Contact Precautions Chemistry 06/11/20 11:30 Sodium 137 Potassium 4.7 Chloride 98 Carbon Dioxide 26 Anion Gap 12.0 H BUN 59 H Creatinine 10.20 H* Glucose 192 H Microbiology 06/11/20 11:30 Blood Aerobic Blood Culture - Pending 06/11/20 11:30 Blood Anaerobic Blood Culture - Pending 06/11/20 11:46 Blood Aerobic Blood Culture - Pending 06/11/20 11:46 Blood Anaerobic Blood Culture - Pending (1) Diabetic neuropathy Diabetes mellitus type: type 1 Diabetes mellitus complication detail: diabetic polyneuropathy Qualified Code(s): E10.42 - Type 1 diabetes mellitus with diabetic polyneuropathy (2) Diabetic nephropathy Diabetes mellitus type: type 1 Qualified Code(s): E10.21 - Type 1 diabetes mellitus with diabetic nephropathy
[2020-06-11 16:48] LABS: Adenovirus PCR Not Detected (NotDetected); Bordetella parapertussis PCR Not Detected (NotDetected); Bordetella pertussis PCR Not Detected (NotDetected); Chlamydia pneumoniae PCR Not Detected (NotDetected); Coronavirus 229E PCR Not Detected (NotDetected); Coronavirus CoV-2 (COVID19)PCR Not Detected (NotDetected); Coronavirus HKU1 PCR Not Detected (NotDetected); Coronavirus NL63 PCR Not Detected (NotDetected); Coronavirus OC43PCR Not Detected (NotDetected); Human Metapneumovirus PCR Not Detected (NotDetected); Influenza A PCR Not Detected (NotDetected); Influenza B PCR Not Detected (NotDetected); Mycoplasma pneumoniae PCR Not Detected (NotDetected); Parainfluenza Virus 1 PCR Not Detected (NotDetected); Parainfluenza Virus 2 PCR Not Detected (NotDetected); Parainfluenza Virus 3 PCR Not Detected (NotDetected); Parainfluenza Virus 4 PCR Not Detected (NotDetected); Respiratory Syncytial VirusPCR Not Detected (NotDetected)
[2020-06-11 16:56] LABS: Rhinovirus/Enterovirus PCR DETECTED (NotDetected)
[2020-06-11] MEDS ORDERED: ONDANSETRON INJ 2 MG/ML 2 ML VIAL IV STA (17:21)
[2020-06-11] MEDS ORDERED: ONDANSETRON INJ 2 MG/ML 2 ML VIAL IV PRN (19:25)
[2020-06-11] MEDS ORDERED: ACETAMINOPHEN 325 MG TAB ONE (19:31)
[2020-06-11] MEDS ORDERED: oxyCODONE HCL IR 5 MG TAB (IMMEDIATE RELEASE) PO STA (21:00)
[2020-06-11] MEDS ORDERED: oxyCODONE HCL IR 5 MG TAB (IMMEDIATE RELEASE) ONE (21:04)
[2020-06-11] MEDS: ALBUT/IPRATROP 3MG/0.5MG NEB 3 ML VIAL NEB PRN (21:19)
[2020-06-11] MEDS ORDERED: MoRPHine SULFATE 2 MG/ML CARP IV STA (21:25)
[2020-06-11] MEDS ORDERED: GLUCAGON FOR INJ 1 MG VIAL IM PRN (21:30)
[2020-06-11] MEDS ORDERED: GLUCOSE 10 TABS/TUBE PO PRN (21:30)
[2020-06-11] MEDS ORDERED: CARBOHYDRATES FOR HYPOGLYCEMIA PO PRN (21:30)
[2020-06-11] MEDS ORDERED: GLUCOSE 40% GEL 15 GM TUBE PO PRN (21:30)
[2020-06-11] MEDS ORDERED: DEXTROSE 50% 50 ML SYRINGE IV PRN (21:30)
[2020-06-11] MEDS: DOXAZosin MESYLATE TAB 2 MG TAB PO SCH (21:48)
[2020-06-11] MEDS: ATORVASTATIN 40 MG TAB PO SCH (21:48)
[2020-06-11] MEDS: amLODIPine BESYLATE 5 MG TAB PO SCH (21:48)
[2020-06-11] MEDS: carvediloL 25 MG TAB PO SCH (21:49)
[2020-06-11] MEDS: hydrALAZINE TAB 50 MG TAB PO SCH (22:10)
[2020-06-11] MEDS: INSULIN GLARGINE SOLOSTAR 100 UNITS/ML 3 ML PEN SQ SCH (22:11)
[2020-06-11] MEDS: traZODone HCL 50 MG TAB PO SCH (22:11)
[2020-06-11] MEDS: rOPINIRole HCL 0.25 MG TABLET PO SCH (22:11)
[2020-06-11] MEDS: HEPARIN SOD 5,000 UNIT/0.5 ML VIAL SQ SCH (22:11)
[2020-06-12] MEDS: PIPERACILLIN/TAZOBACTAM 3.375 GM in DEXTROSE 5% 100 ML IV SCH ×2 (00:04→12:49)
[2020-06-12 04:37] LABS: Hematocrit (blood only) 25.4 % (42-52); Hemoglobin 8.4 g/dL (14.0-18.0); Mean Corpuscular Hemoglobin 32.7 pg (25-34); Mean Corpuscular Hgb Conc 33.1 g/dL (32-36); Mean Corpuscular Volume 98.8 fL (80-100); Mean Platelet Volume 10.7 fL (7.4-10.4); Platelet Count 144 K/uL (130-400); RDW Coefficient of Variation 15.7 % (11.5-14.5); RDW Standard Deviation 56.9 fL (36.4-46.3); Red Blood Count 2.57 M/uL (4.7-6.1); White Blood Count 4.84 K/uL (4.8-10.8)
[2020-06-12 05:16] LABS: Alanine Aminotransferase 12 U/L (12-78); Albumin Globulin Ratio 0.9 (0.9-2); Alkaline Phosphatase 46 U/L (45-117); Aspartate Aminotransferase 5 U/L (15-37); BUN Creatinine Ratio 6.1 (10-20); Bilirubin,Total 0.6 mg/dl (0.2-1); Blood Urea Nitrogen 70 mg/dl (7-18); Calcium 8.3 mg/dl (8.5-10.1); Carbon Dioxide 27 mmol/L (21-32); Chloride 97 mmol/L (98-107); Creatinine Clr Calc Pharmacy 9.1 ml/min; Est GFR (African American) 5.8; Globulin 3.2 gm/dl (2.5-4.0); Glucose 170 mg/dl (70-99); Magnesium 2.8 mg/dl (1.8-2.4); Phosphorus 7.7 mg/dl (2.5-4.9); Potassium 4.9 mmol/L (3.5-5.1); Sodium 136 mmol/L (136-145); Total Protein 6.2 gm/dl (6.4-8.2); Troponin I < 0.015 ng/ml (0-0.045)
[2020-06-12] MEDS: CHOLECALCIFEROL 1,000 UNITS 25 MCG TAB PO SCH (08:14)
[2020-06-12] MEDS: CALCIUM ACETATE 667 MG CAP/TAB PO SCH ×3 (08:14→19:25)
[2020-06-12] MEDS: CLOPIDOGREL BISULFATE 75 MG TAB PO SCH (08:15)
[2020-06-12] MEDS: INSULIN GLARGINE SOLOSTAR 100 UNITS/ML 3 ML PEN SQ SCH ×2 (08:15→20:29)
[2020-06-12] MEDS: HEPARIN SOD 5,000 UNIT/0.5 ML VIAL SQ SCH ×2 (08:16→20:31)
[2020-06-12] MEDS: rOPINIRole HCL 0.25 MG TABLET PO SCH ×2 (08:17→20:30)
[2020-06-12] MEDS ORDERED: PROMETHAZINE HCL 6.25 MG in SODIUM CHLORIDE 0.9% 50 ML IV PRN (08:49)
[2020-06-12] MEDS ORDERED: GLUCOSE 40% GEL 15 GM TUBE PO PRN (08:57)
[2020-06-12] MEDS ORDERED: CARBOHYDRATES FOR HYPOGLYCEMIA PO PRN (08:57)
[2020-06-12] MEDS ORDERED: DEXTROSE 50% 50 ML SYRINGE IV PRN (08:57)
[2020-06-12] MEDS ORDERED: GLUCAGON FOR INJ 1 MG VIAL SQ PRN (08:57)
[2020-06-12] MEDS ORDERED: GLUCOSE 10 TABS/TUBE PO PRN (08:57)
[2020-06-12] MEDS: carvediloL 25 MG TAB PO SCH ×2 (09:41→20:30)
[2020-06-12] MEDS: amLODIPine BESYLATE 5 MG TAB PO SCH (09:41)
[2020-06-12] MEDS: hydrALAZINE TAB 50 MG TAB PO SCH ×2 (09:41→20:30)
[2020-06-12] MEDS ORDERED: EPOETIN ALFA 10,000 UNITS in SYRINGE 0 ML IV SCH (10:15)
[2020-06-12] MEDS ORDERED: EPOETIN ALFA 10,000 UNITS/ML VIAL SQ SCH (10:30)
[2020-06-12] MEDS ORDERED: EPOETIN ALFA 10,000 UNITS/ML VIAL IV SCH (10:30)
--- NOTE | 2020-06-12 10:40 | Consultation Report ---
DATE OF CONSULTATION: 06/12/2020 REASON FOR CONSULT: Dialysis patient admitted with pneumonia. HISTORY OF PRESENT ILLNESS: The patient is a 35-year-old type 1 diabetic with history of ESRD and gets dialysis on Wednesday, , and Wednesday. He was scheduled to have outpatient dialysis yesterday, but because of temperature of 101 degrees Fahrenheit, he was declined dialysis. The patient was also somewhat short of breath with some nausea, cough and shortness of breath. He came to the Emergency Department. He has been checked for COVID test twice and is negative. At this time, the working diagnosis is he has pneumonia as the cause of his symptoms. His last dialysis was on Wednesday. REVIEW OF SYSTEMS: As detailed in HPI, unless stated otherwise, 12 systems reviewed and negative. MEDICATIONS: List was reviewed in detail. He does have issues of noncompliance. ALLERGIES: NSAIDS. PAST MEDICAL AND SURGICAL HISTORY: ESRD secondary to type 1 diabetes, fatty liver, hypertension, prolonged QT interval, history of TIA, history of bacteremia, Charcot foot, eye surgeries. FAMILY HISTORY: Positive for hypertension and diabetes. SOCIAL HISTORY: Former smoker. He is single. No alcohol. No smoking. PHYSICAL EXAMINATION: GENERAL: Awake, alert, oriented x3. HEENT: Mucous membranes moist. NECK: Supple. No jugular venous distention. VITAL SIGNS: Blood pressure 140/72, pulse rate 63, temperature 37.1, 95% on room air. CHEST: Bilateral rhonchi and decreased breath sounds. CARDIOVASCULAR: S1, S2 regular. ABDOMEN: Soft, nontender. EXTREMITIES: Shows no edema. SKIN: Shows no rashes. LABORATORY TESTS: From this morning was reviewed in detail and shows creatinine of 11.5, BUN 70, potassium 4.9, sodium 136. Phosphorus is 7.7. Chest x-ray done yesterday showed cardiomegaly with some increase in pulmonary edema, small bilateral effusion with bibasilar opacities. ASSESSMENT AND PLAN: A 35-year-old male with type 1 diabetes with ESRD, on chronic hemodialysis, TTS, now admitted with shortness of breath and fever. 1. End-stage renal disease: He has missed dialysis yesterday, so we will do him today for 4 hours and take about 3 kilo of fluid. He has pneumonia as the primary cause of his symptoms, but there is some component of fluid overload/pulmonary edema. We will also do dialysis tomorrow to get him back on his regular schedule of Wednesday, , and Wednesday and take more fluid off.
[2020-06-12] MEDS: INSULIN ASPART 100 UNITS/ML 3 ML PEN SC SCH ×3 (12:34→21:32)
[2020-06-12] MEDS: ACETAMINOPHEN 325 MG TAB PO PRN ×2 (12:52→19:27)
[2020-06-12] MEDS: ALBUT/IPRATROP 3MG/0.5MG NEB 3 ML VIAL NEB PRN (13:08)
--- NOTE | 2020-06-12 13:11 | Electrocardiogram Report ---
Test Reason : Blood Pressure : / mmHG Vent. Rate : 077 BPM Atrial Rate : 077 BPM P-R Int : 134 ms QRS Dur : 086 ms QT Int : 448 ms P-R-T Axes : 028 001 035 degrees QTc Int : 506 ms Poor data quality, interpretation may be adversely affected Normal sinus rhythm Prolonged QT When compared with ECG of 11-JUN-2020 11:53, No significant change was found Confirmed by Arnaud Gonzalez ([id number]) on 06/12/2020 1:11:14 PM Referred By: REFERRED SELF Confirmed By:Arnaud Gonzalez
--- NOTE | 2020-06-12 15:19 | Hospitalist Progress Note ---
Date of Service June 12, 2020 Assessment & Plan (1) Fluid overload: Acute pulmonary edema Fluid Overload CXR:Cardiomegaly with interval increase in pulmonary edema. Small bilateral pleural effusions with bibasilar opacities that favor atelectasis although an infectious process could appear similar. Missed dialysis on 06/11/20 Planned for dialysis today Appreciate Nephrology Input Volume status managed through dialysis Continue supplemental oxygen as needed--Titrate as able Hypoxia Rhino Virus Infection Healthcare associated pneumonia Chest x-ray as above COVID screen: Negative Procalcitonin: 0.63 Isolation precautions Continue IV Zosyn Chest pain h/o Pericardial Effusion Secondary to above Troponin negative EKG no signs of ischemia Echo pending Consider CT to rule out PE ESRD on dialysis Appreciate Nephrology help Anemia of chronic disease Hb drop likely dilutional secondary to volume overload No acute bleeding issues Received Epo Monitor CBC Prolonged QTC Avoid QT C prolonging meds Monitor DM Type I Last HbA1C:7.2 Continue Lantus/Novolog per Protocol Monitor BGs Hypertension Continue amlodipine, hydralazine, carvedilol Also on Candura Monitor H/O TIA Continue Plavix, Statin DVT Px: Heparin SQ Admission and Anticipated Discharge Date Admission Date: June 11, 2020 Subjective Patient is seen and examined at bedside Reports cough with expectoration Reports pleuritic chest chest pain, headache Plan for hemodialysis today Offers no other complaints Review of Systems Review of Systems: All systems reviewed & are unremarkable except as noted in HPI & below Physical Exam Physical Exam: Physical Exam: Vitals signs as noted above General Appearance:Moderately built and nourished, no apparent distress Head: normocephalic, Atraumatic Eyes: normal inspection, EOMI Neck: supple, Trachea midline Respiratory/Chest: Normal breath sounds, B/L Crackles Cardiovascular: S1, S2, No murmur Abdomen/GI:Soft, Non tender, Bowel sounds present Extremities/Musculoskelatal:normal inspection, no edema Neurologic/Psych:AAOX3, grossly no focal neurological deficits Skin: normal color, warm Results & Data Results & Data ([facility]) Vital Signs (Past 12 Hours) Vital Signs Temp Pulse Pulse Pulse Resp BP BP 06/12/20 15:00 65 144/78 H 06/12/20 14:40 36.7 C 64 64 142/76 H 06/12/20 13:32 36.7 C 65 20 152/82 H 06/12/20 13:10 68 28 H 06/12/20 07:33 37.1 C 63 18 140/72 Pulse Ox 06/12/20 15:00 06/12/20 14:40 06/12/20 13:32 94 06/12/20 13:10 84 L 06/12/20 07:33 95 Laboratory Results Short CBC 06/12/20 Range/Units 04:26 WBC 4.84 (4.8-10.8) K/uL Hgb 8.4 L (14.0-18.0) g/dL Hct 25.4 L (42-52) % Plt Count 144 (130-400) K/uL BMP 06/12/20 04:26 Sodium 136 Potassium 4.9 Chloride 97 L Carbon Dioxide 27 BUN 70 H Creatinine 11.50 H* D Glucose 170 H Calcium 8.3 L Cardiac Enzymes 06/11/20 06/12/20 Range/Units 22:28 04:26 Troponin I < 0.015 < 0.015 (0-0.045) ng/ml Liver Function 06/12/20 Range/Units 04:26 Total Bilirubin 0.6 (0.2-1) mg/dl AST 5 L (15-37) U/L ALT 12 (12-78) U/L Alkaline Phosphatase 46 (45-117) U/L Albumin 3.0 L (3.4-5.0) gm/dl
[2020-06-12] MEDS: ATORVASTATIN 40 MG TAB PO SCH (20:30)
[2020-06-12] MEDS: traZODone HCL 50 MG TAB PO SCH (20:30)
[2020-06-12] MEDS: DOXAZosin MESYLATE TAB 2 MG TAB PO SCH (20:30)
[2020-06-12] MEDS ORDERED: OPTIRAY 320 125ml IV ONE (21:00)
[2020-06-12] MEDS ORDERED: MELATONIN 3 MG TAB PO PRN (21:52)
[2020-06-13] MEDS: PIPERACILLIN/TAZOBACTAM 3.375 GM in DEXTROSE 5% 100 ML IV SCH ×3 (00:08→23:36)
--- NOTE | 2020-06-13 07:04 | CT Scan Report ---
CT angio chest PE protocol CT DOSE: 464.19 mGycm HISTORY: 35 years-old Male with PE. Acute atypical chest pain TECHNIQUE: Multiple CTA images of the chest were obtained after the intravenous administration of 120 ml Optiray 320. Coronal and sagittal MIPS were obtained from the axial data set and were submitted for review. All measurements were obtained according to NASCET criteria. A dose lowering technique w as utilized adhering to the principles of ALARA. COMPARISON: Chest radiograph 06/11/2020, chest CT 05/03/2020 FINDINGS: CTA: Unchanged cardiac megaly with small to moderate pericardial effusion, unchanged. No thoracic aortic a neurysm or dissection. There is patency of the imaged great vessels. Pulmonary artery is opacified to the level of the proximal subsegmental branches and demonstrates no filling defects to suggest throm boembolic disease. CT CHEST: Unremarkable thyroid. Nonspecific mildly enlarged mediastinal lymph nodes include subcarinal lymph no cornelio measuring up to 12 mm. These findings appear stable from comparison. Prominent bilateral axillary chain lymph nodes are also present measuring up to 9 mm. Small pleural effusions with dependent biba silar consolidative and groundglass opacities. Mild intralobular septal thickening without pneumothor ax. There is thickening of the bronchovascular bundles. Central airways are patent. Mild nonspecific distal esophageal wall thickening. Trace perihepatic ascites, unchanged. Moderate gy necomastia. Mild generalized body wall edema. Bones appear intact. No acute fracture. IMPRESSION: 1. No acute aortic pathology or evidence of pulmonary thromboembolic disease. 2. Cardiomegaly with unchanged small to moderate pericardial effusion. 3. Pulmonary edema with small pleural effusions. 4. Dependent bibasilar consolidative and groundglass opacities favor atelectasis. Aspiration pneumoni tis or pneumonia considered less likely however are within the differential. 5. Unchanged mediastinal adenopathy, likely reactive. ACT 112: Negative or not required by law. The above report was generated using voice recognition software. It may contain grammatical, syntax o r spelling errors. Electronically signed by: Asim West M.D. 06/13/2020 7:03 AM
[2020-06-13] MEDS: hydrALAZINE TAB 50 MG TAB PO SCH ×2 (07:54→21:44)
[2020-06-13] MEDS: rOPINIRole HCL 0.25 MG TABLET PO SCH ×2 (07:55→21:44)
[2020-06-13] MEDS: CALCIUM ACETATE 667 MG CAP/TAB PO SCH ×3 (07:55→17:37)
[2020-06-13] MEDS: CHOLECALCIFEROL 1,000 UNITS 25 MCG TAB PO SCH (07:55)
[2020-06-13] MEDS: CLOPIDOGREL BISULFATE 75 MG TAB PO SCH (07:55)
[2020-06-13] MEDS: amLODIPine BESYLATE 5 MG TAB PO SCH (07:55)
[2020-06-13] MEDS: carvediloL 25 MG TAB PO SCH ×2 (07:56→21:44)
[2020-06-13] MEDS: HEPARIN SOD 5,000 UNIT/0.5 ML VIAL SQ SCH ×2 (08:08→21:45)
[2020-06-13] MEDS: INSULIN ASPART 100 UNITS/ML 3 ML PEN SC SCH ×5 (08:09→23:42)
[2020-06-13] MEDS: INSULIN GLARGINE SOLOSTAR 100 UNITS/ML 3 ML PEN SQ SCH ×2 (08:10→21:45)
[2020-06-13 09:40] LABS: Hematocrit (blood only) 28.4 % (42-52); Hemoglobin 9.4 g/dL (14.0-18.0)
[2020-06-13 10:38] LABS: BUN Creatinine Ratio 4.9 (10-20); Calcium 8.7 mg/dl (8.5-10.1); Creatinine Clr Calc Pharmacy 13.8 ml/min; Est GFR (African American) 9.6; Est GFR (Non-African American) 8.3; Magnesium 2.4 mg/dl (1.8-2.4); Potassium 4.5 mmol/L (3.5-5.1)
--- NOTE | 2020-06-13 10:46 | Progress Notes ---
DATE: 06/13/2020 DIALYSIS NOTE SUBJECTIVE: The patient was seen during dialysis. He is tolerating it very well. AV fistula is working fine, good blood flow. PHYSICAL EXAMINATION: VITAL SIGNS: Blood pressure is 169/88, temperature 37 degrees Celsius, pulse rate 73, 88% on room air. HEENT: Mucous membranes moist. NECK: Supple. No jugular venous distention. CHEST: Bilateral clear to auscultation. CARDIOVASCULAR: S1, S2 regular. ABDOMEN: Soft, nontender. EXTREMITIES: Shows no edema. LABORATORY TESTS: From this morning was reviewed and is consistent with ESRD. ASSESSMENT AND PLAN: A 35-year-old male admitted with shortness of breath and fever related with pneumonia with some component of congestive heart failure. The patient is a dialysis patient and gets dialysis Wednesday, , and Wednesday. We will continue dialysis as per his normal schedule . We will do him for 3 hours and take 3 kilo of fluid off on a 2K bath. His next dialysis if he is still in the hospital will be on Wednesday. MONIKA
[2020-06-13 13:04] LABS: Phosphorus 5.2 mg/dl (2.5-4.9)
--- NOTE | 2020-06-13 18:07 | Hospitalist Progress Note ---
Date of Service June 13, 2020 Assessment & Plan (1) Fluid overload: Acute pulmonary edema Fluid Overload CXR:Cardiomegaly with interval increase in pulmonary edema. Small bilateral pleural effusions with bibasilar opacities that favor atelectasis although an infectious process could appear similar. Missed dialysis on 06/11/20 Appreciate Nephrology Input Volume status managed through dialysis Had dialysis yesterday and today Volume status improved Saturating low 90s on room air Hypoxia Rhino Virus Infection Healthcare associated pneumonia Chest x-ray as above COVID screen: Negative Procalcitonin: 0.63 Isolation precautions Continue IV Zosyn for now Chest pain--Secondary to above h/o Pericardial Effusion Secondary to above Troponin negative EKG no signs of ischemia Echo: No left ventricular wall motion abnormality. Small circumferential pericardial effusion--unchanged from prior CTA:No PE, unchanged mediastinal adenopathy May need further evaluation with repeat imaging as outpatient ESRD on dialysis Appreciate Nephrology help Anemia of chronic disease Hb drop likely dilutional secondary to volume overload No acute bleeding issues Received Epo Monitor CBC Prolonged QTC Avoid QT C prolonging meds Monitor DM Type I Last HbA1C:7.2 Continue Lantus/Novolog per Protocol Monitor BGs Hypertension Continue amlodipine, hydralazine, carvedilol Also on Candura Monitor H/O TIA Continue Plavix, Statin DVT Px: Heparin SQ Admission and Anticipated Discharge Date Admission Date: June 11, 2020 Subjective Patient is seen and examined at bedside States feeling better today Had hemodialysis earlier today Cough slowly improving Dyspnea much improved Saturating low 90s on room air Pleuritic chest pain is improving as well Review of Systems Review of Systems: All systems reviewed & are unremarkable except as noted in HPI & below Physical Exam Physical Exam: Physical Exam: Vitals signs as noted above General Appearance:Moderately built and nourished, no apparent distress Head: normocephalic, Atraumatic Eyes: normal inspection, EOMI Neck: supple, Trachea midline Respiratory/Chest: Normal breath sounds, Basal Crackles Cardiovascular: S1, S2, No murmur Abdomen/GI:Soft, Non tender, Bowel sounds present Extremities/Musculoskelatal:normal inspection, no edema Neurologic/Psych:AAOX3, grossly no focal neurological deficits Skin: normal color, warm Results & Data Results & Data ([facility]) Vital Signs (Past 12 Hours) Vital Signs Temp Pulse Pulse Pulse Resp BP BP 06/13/20 15:54 36.9 C 72 16 170/85 H 06/13/20 13:32 37.0 C 75 168/75 H 06/13/20 12:49 72 16 06/13/20 12:41 62 18 162/72 H 06/13/20 12:18 74 168/80 H 06/13/20 12:00 73 169/83 H 06/13/20 11:40 70 166/82 H 06/13/20 11:20 72 157/83 H 06/13/20 11:00 74 159/84 H 06/13/20 10:40 74 162/84 H 06/13/20 10:20 78 142/99 H 06/13/20 10:00 72 162/84 H 06/13/20 09:40 73 169/88 H 06/13/20 09:22 73 161/90 H 06/13/20 09:05 37.0 C 71 06/13/20 07:22 37.0 C 72 18 179/85 H Pulse Ox 06/13/20 15:54 92 06/13/20 13:32 06/13/20 12:49 98 06/13/20 12:41 93 06/13/20 12:18 06/13/20 12:00 06/13/20 11:40 06/13/20 11:20 06/13/20 11:00 06/13/20 10:40 06/13/20 10:20 06/13/20 10:00 06/13/20 09:40 06/13/20 09:22 06/13/20 09:05 06/13/20 07:22 88 L Laboratory Results Short CBC 06/13/20 Range/Units 09:19 Hgb 9.4 L (14.0-18.0) g/dL Hct 28.4 L (42-52) % BMP 06/13/20 09:19 Sodium 133 L Potassium 4.5 Chloride 97 L Carbon Dioxide 28 BUN 37 H Creatinine 7.62 H* D Glucose 236 H Calcium 8.7
[2020-06-13] MEDS: ATORVASTATIN 40 MG TAB PO SCH (21:44)
[2020-06-13] MEDS: traZODone HCL 50 MG TAB PO SCH (21:44)
[2020-06-13] MEDS: DOXAZosin MESYLATE TAB 2 MG TAB PO SCH (21:44)
[2020-06-13] MEDS ORDERED: INSULIN GLARGINE SOLOSTAR 100 UNITS/ML 3 ML PEN SC STA (22:46)
[2020-06-13] MEDS ORDERED: hydrALAZINE TAB 50 MG TAB PO STA (22:54)
[2020-06-14 08:02] LABS: Hemoglobin 9.7 g/dL (14.0-18.0)
[2020-06-14] MEDS: rOPINIRole HCL 0.25 MG TABLET PO SCH (08:16)
[2020-06-14] MEDS: carvediloL 25 MG TAB PO SCH (08:16)
[2020-06-14] MEDS: hydrALAZINE TAB 50 MG TAB PO SCH ×2 (08:16→14:17)
[2020-06-14] MEDS: CHOLECALCIFEROL 1,000 UNITS 25 MCG TAB PO SCH (08:17)
[2020-06-14] MEDS: CLOPIDOGREL BISULFATE 75 MG TAB PO SCH (08:17)
[2020-06-14] MEDS: amLODIPine BESYLATE 5 MG TAB PO SCH (08:18)
[2020-06-14] MEDS: CALCIUM ACETATE 667 MG CAP/TAB PO SCH ×2 (08:18→12:31)
[2020-06-14] MEDS: HEPARIN SOD 5,000 UNIT/0.5 ML VIAL SQ SCH (08:45)
[2020-06-14 08:46] LABS: BUN Creatinine Ratio 4.9 (10-20); Calcium 8.9 mg/dl (8.5-10.1); Est GFR (African American) 11.2; Est GFR (Non-African American) 9.6; Magnesium 2.3 mg/dl (1.8-2.4)
[2020-06-14] MEDS ORDERED: INSULIN GLARGINE SOLOSTAR 100 UNITS/ML 3 ML PEN SQ SCH ×3 (09:00→21:00)
[2020-06-14] MEDS: INSULIN ASPART 100 UNITS/ML 3 ML PEN SC SCH ×2 (09:19→12:45)
[2020-06-14 09:53] LABS: Potassium 3.6 mmol/L (3.5-5.1)
[2020-06-14 09:55] LABS: Phosphorus 3.4 mg/dl (2.5-4.9)
[2020-06-14] MEDS ORDERED: BUTALBITAL/ACETAMIN/CAFFEINE TAB PO PRN (10:00)
--- NOTE | 2020-06-14 10:35 | Progress Notes ---
DATE: 06/14/2020 SUBJECTIVE: The patient had dialysis yesterday without any problem. His blood pressure is still somewhat high. Shortness of breath is better. No fever. OBJECTIVE: VITAL SIGNS: Blood pressure 179/93, pulse rate 66, temperature 36.9 degrees Celsius, 96% on room air. HEENT: Mucous membranes moist. NECK: Supple. No jugular venous distention. CHEST: Bilateral clear to auscultation. CARDIOVASCULAR: S1, S2 regular. ABDOMEN: Soft, nontender. EXTREMITIES: Shows no edema. LABORATORY TESTS: From this morning was reviewed and is consistent with ESRD. ASSESSMENT AND PLAN: A 35-year-old male with type 1 diabetes with ESRD, on chronic hemodialysis Wednesday, , Wednesday, admitted with pneumonia and congestive heart failure. 1. End-stage renal disease: He still has some evidence of fluid overload, but this can be managed as an outpatient with gradual lowering of his dry weight. No fever. Discussed the case with hospitalist that patient needs a negative COVID test before he will be accepted at the outpatient dialysis unit as per the protocol. He is getting a stat COVID test now. If by any chance the patient is still in the hospital tomorrow we will do hemodialysis tomorrow and take more fluid off, at least 3 kilos.
[2020-06-14] MEDS: PIPERACILLIN/TAZOBACTAM 3.375 GM in DEXTROSE 5% 100 ML IV SCH (12:45)
--- NOTE | 2020-06-14 13:36 | Hospitalist Progress Note ---
Date of Service June 14, 2020 Assessment & Plan (1) Fluid overload: Acute pulmonary edema Fluid Overload CXR:Cardiomegaly with interval increase in pulmonary edema. Small bilateral pleural effusions with bibasilar opacities that favor atelectasis although an infectious process could appear similar. Missed dialysis on 06/11/20 Appreciate Nephrology Input Volume status managed through dialysis Had dialysis on 06/12 and 06/13 Volume status improved Saturating well on room air Next dialysis tomorrow as scheduled Hypoxia Rhino Virus Infection Healthcare associated pneumonia Chest x-ray as above COVID screen: Negative Procalcitonin: 0.63 Isolation precautions Continue IV Zosyn>> Plan to transition to Augmentin Chest pain--Secondary to above h/o Pericardial Effusion Secondary to above Troponin negative EKG no signs of ischemia Echo: No left ventricular wall motion abnormality. Small circumferential pericardial effusion--unchanged from prior CTA:No PE, unchanged mediastinal adenopathy May need further evaluation with repeat imaging as outpatient ESRD on dialysis Appreciate Nephrology help Anemia of chronic disease Hb drop likely dilutional secondary to volume overload No acute bleeding issues Received Epo Monitor CBC Hb Stable Prolonged QTC Avoid QT C prolonging meds Monitor DM Type I Last HbA1C:7.2 Continue Lantus/Novolog per Protocol Monitor BGs Hypertension Continue amlodipine, hydralazine, carvedilol Also on Candura Monitor H/O TIA Continue Plavix, Statin DVT Px: Heparin SQ Admission and Anticipated Discharge Date Admission Date: June 11, 2020 Subjective Patient is seen and examined at bedside Reports headache today Otherwise feels better Discussed with nephrology today Cough continues to improve Pleuritic chest discomfort improved Saturating well on room air Review of Systems Review of Systems: All systems reviewed & are unremarkable except as noted in HPI & below Physical Exam Physical Exam: Physical Exam: Vitals signs as noted above General Appearance:Moderately built and nourished, no apparent distress Head: normocephalic, Atraumatic Eyes: normal inspection, EOMI Neck: supple, Trachea midline Respiratory/Chest: Normal breath sounds, CTA Cardiovascular: S1, S2, No murmur Abdomen/GI:Soft, Non tender, Bowel sounds present Extremities/Musculoskelatal:normal inspection, no edema Neurologic/Psych:AAOX3, grossly no focal neurological deficits Skin: normal color, warm Results & Data Results & Data ([facility]) Vital Signs (Past 12 Hours) Vital Signs Temp Pulse Resp BP Pulse Ox 06/14/20 11:28 36.9 C 70 18 169/81 H 93 06/14/20 07:43 36.9 C 66 20 179/93 H 96 06/14/20 03:59 36.6 C 65 18 167/80 H 91 Laboratory Results Short CBC 06/14/20 Range/Units 06:48 Hgb 9.7 L (14.0-18.0) g/dL Hct 29.0 L (42-52) % BMP 06/14/20 06:48 Sodium 134 L Potassium 3.6 D Chloride 99 Carbon Dioxide 28 BUN 33 H Creatinine 6.72 H* D Glucose 71 Calcium 8.9
--- NOTE | 2020-06-14 13:47 | Discharge Summary ---
Date of Service June 14, 2020 Admission HPI Per Admitting Provider 35-year-old insulin dependent diabetic, history of noncompliance, acute respiratory failure, UTI, hypertensive urgency, aspiration pneumonia, sepsis, Staphylococcus bacteremia, prolonged QT interval, anemia of chronic renal disease, diabetic nephrotic syndrome, fatty liver, Charcot foot, diabetic nephropathy, diabetic neuropathy, diabetic retinopathy, and hypertension who is also on hemodialysis presents to the emergency department complaining of "fever, nausea, vomiting". Patient receives dialysis Wednesday, , Wednesday. He was scheduled to have dialysis today, but patient notes that his temp was 101 F orally on arrival to dialysis and was declined dialysis per patient. Patient notes that for the past 2 days he has been experiencing nausea, vomiting, cough that is worse with lying flat, cough production of mucus at times, feeling puffy/fluid overloaded as well as a sore throat, headache, body aches, chills. His first Covid test was negative we are repeating. Admission Exam Per Admitting Provider Physical Exam Gen-AAO x 3, NAD, febrile Head-NCAT, EOMI, PERRLA, Anicteric Sclera, No Posterior Pharyngeal Erythema Neck-Supple, No JVD, No Thyromegaly, No Masses, No LAD, No Bruits Lungs-lower bilateral Rales, No Rhonchi, No Wheezing, No Crepitus Chest-No S4, +S1, +S2, No S3, No Murmurs, No Rubs, No Gallops, No Ectopy Abdomen-Soft, Bowel Sounds Present, Non Tender, Non Distended, No Hepatomegaly, No Splenomegaly, No Palpable Masses, No Rebound, No Rigidity, No Guarding Musculoskeletal-Full Range of Motion Bilaterally, No CVAT Extremities-No Cyanosis, No Clubbing, No Edema Nuero-Cranial Nerves II-XII grossly intact, Motor WNL, DTRs WNL, Strength WNL, Non Focal Psych-Normal Mood Principal Diagnosis Acute pulmonary edema Fluid Overload Hypoxia Rhino Virus Infection Healthcare associated pneumonia Discharge Data Allergies Allergy/AdvReac Type Severity Reaction Status Date / Time NSAIDS (Non-Steroidal AdvReac RENAL Unverified 06/11/20 12:26 Anti-Inflamma FAILURE Consultations 06/11/20 12:46 ED Decision to Admit Stat 06/11/20 19:25 Consult Nephrology Routine Procedures Performed CXR:Cardiomegaly with interval increase in pulmonary edema. Small bilateral pleural effusions with bibasilar opacities that favor atelectasis although an infectious process could appear similar. CTA: 1. No acute aortic pathology or evidence of pulmonary thromboembolic disease. 2. Cardiomegaly with unchanged small to moderate pericardial effusion. 3. Pulmonary edema with small pleural effusions. 4. Dependent bibasilar consolidative and groundglass opacities favor atelectasis. Aspiration pneumonitis or pneumonia considered less likely however are within the differential. 5. Unchanged mediastinal adenopathy, likely reactive. Ordered Studies 06/12/20 15:08 CT angio chest PE protocol Routine Hospital Course (1) Fluid overload: Acute pulmonary edema Fluid Overload CXR:Cardiomegaly with interval increase in pulmonary edema. Small bilateral pleural effusions with bibasilar opacities that favor atelectasis although an infectious process could appear similar. Missed dialysis on 06/11/20 Appreciate Nephrology Input Volume status managed through dialysis Had dialysis on 06/12 and 06/13 Volume status improved Saturating well on room air Next dialysis tomorrow as scheduled Hypoxia Rhino Virus Infection Healthcare associated pneumonia Chest x-ray as above COVID screen: Negative Procalcitonin: 0.63 Isolation precautions Continue IV Zosyn>> Plan to transition to Augmentin Chest pain--Secondary to above h/o Pericardial Effusion Secondary to above Troponin negative EKG no signs of ischemia Echo: No left ventricular wall motion abnormality. Small circumferential pericardial effusion--unchanged from prior CTA:No PE, unchanged mediastinal adenopathy May need further evaluation with repeat imaging as outpatient ESRD on dialysis Appreciate Nephrology help Anemia of chronic disease Hb drop likely dilutional secondary to volume overload No acute bleeding issues Received Epo Monitor CBC Hb Stable Prolonged QTC Avoid QT C prolonging meds Monitor DM Type I Last HbA1C:7.2 Continue Lantus/Novolog per Protocol Monitor BGs Hypertension Continue amlodipine, hydralazine, carvedilol Also on [place] Monitor H/O TIA Continue Plavix, Statin DVT Px: Heparin SQ Total Time Total Time Spent Total Time Spent (In Minutes): 45 minutes Discharge Plan Discharge Items Patient Disposition: Home - Self-Care Reason For Visit: FEVER,NAUSEA,VOMITING Discharge Diagnosis: Acute pulmonary edema Fluid Overload Hypoxia Rhino Virus Infection Healthcare associated pneumonia Condition on Discharge: Fair Activity: Per Instructions section Exercise/Sports: Gradually increase as tolerated Non-emergency contact: Primary Care Provider and Health Sciences Manager Call non-emergency contact if: you have any medication questions, your symptoms worsen, your pain is not controlled, your pain is worsening, your pain is unusual for you and you have a fever Follow-up/Referrals: Ciro Singh MD [Primary Care Provider] - (Date & Time 06/19/2020 3:00 PM Provider Ciro Singh MD Department Internal Medicine [facility] ) Diet: Carb Count or DM1 and Dialysis Renal Addtl Attending Provider Instructions: Follow-up with your primary care physician Dr. Singh on 06/19/2020 3:00 PM as scheduled Follow-up with your epic professional for dialysis as scheduled Complete antibiotic course as prescribed Your hydralazine is increased to 50 mg 3 times a day for better control of your blood pressure. Your final blood cultures are pending at the time of discharge. Follow-up with your physician for results. You were noted to have mediastinal lymphadenopathy on CT scanning. This could be secondary to acute infection. Consider getting a repeat CT chest as outpatient in 6 weeks to monitor for resolution. Seek immediate medical attention if your symptoms reoccur or worsen Pending Studies at Discharge: Yes Studies:: Blood Cultures Stand-Alone Forms: [employer], Smoking Cessation Medications and DC Order Prescriptions: New amoxicillin-pot clavulanate [Augmentin] 500-125 mg tablet 1 tab PO Q12H Qty: 13 RF: 0 hydralazine 50 mg Tablet 50 mg PO TID Qty: 90 RF: 0 Continued atorvastatin 40 mg tablet 40 mg PO HS RF: 0 clopidogrel 75 mg tablet 75 mg PO QAM RF: 0 calcium acetate(phosphat bind) 667 mg Tablet 2,668 mg PO TIDM RF: 0 cholecalciferol (vitamin D3) [Vitamin D3] 5,000 unit Tablet 5,000 units PO QAM RF: 0 carvedilol 12.5 mg tablet 37.5 mg PO BID RF: 0 trazodone 50 mg tablet 50 mg PO HS RF: 0 ropinirole 0.25 mg tablet 0.25 mg PO BID RF: 0 amlodipine 10 mg tablet 10 mg PO QAM RF: 0 insulin aspart U-100 [Novolog U-100 Insulin aspart] 100 unit/mL solution 1 sliding scale dose subcut AC RF: 0 doxazosin 2 mg tablet 2 mg PO HS RF: 0 Lantus Solostar U-100 Insulin 100 unit/mL (3 mL) insulin pen 10 unit SUBCUT HS RF: 0 valproic acid 250 mg capsule 250 mg PO UD RF: 0 Discharge Orders: Discharge Order (Routine); Ordered 06/14/20 Ordered By: Richard Ndiaye Admission Data Admit Date/Time: 06/11/20 16:38 Attending Provider: Richard Ndiaye Admit Provider: Darnell De Oliveira Primary Care Provider: Ciro Singh Other Providers: Bam Galvez ; Des Marcano Other Interventions: Discharge Summary Assessment (RN) Last Done: 06/14/20 15:48
[2020-06-14] MEDS ORDERED: ACETAMINOPHEN 325 MG TAB PO ONE (14:15)
[2020-06-14] MEDS ORDERED: traMADol HCL 50 MG TABLET PO ONE (14:15)
== END 2020-06-14 16:30 | disposition home or self-care (01) | DRG 193 ==
LOC: ED 10:31 → 2N 16:38 → SUATTDRO 16:38 → 2N 18:56

== ENCOUNTER 2021-03-11 19:52 | Inpatient (IN) ==
[2021-03-11] MEDS: ACETAMINOPHEN 1,000 MG/100 ML VIAL IV STA (20:36)
[2021-03-11 20:46] LABS: Mean Corpuscular Hgb Conc 33.1 g/dL (32-36); Platelet Count 278 K/uL (130-400)
[2021-03-11 21:00] LABS: Partial Thromboplastin Ratio 0.9; Partial Thromboplastin Time 24.5 Seconds (21.0-31.0); Prothrombin Time 10.5 Seconds (9.0-12.0)
[2021-03-11 21:04] LABS: Alanine Aminotransferase 22 U/L (12-78); Albumin Level 3.7 gm/dl (3.4-5.0); Aspartate Aminotransferase 9 U/L (15-37); BUN Creatinine Ratio 14.9 (10-20); Blood Urea Nitrogen 27 mg/dl (7-18); Calcium 9.2 mg/dl (8.5-10.1); Carbon Dioxide 22 mmol/L (21-32); Chloride 109 mmol/L (98-107); Est GFR (African American) 53.8 ml/min; Est GFR (Non-African American) 46.4 ml/min; Glucose 89 mg/dl (70-99); Lipase 272 U/L (73-393); Magnesium 1.9 mg/dl (1.8-2.4); Potassium 4.5 mmol/L (3.5-5.1); Sodium 138 mmol/L (136-145)
--- NOTE | 2021-03-11 21:04 | CT Scan Report ---
CT SCAN OF THE ABDOMEN AND PELVIS WITHOUT CONTRAST CLINICAL HISTORY: Post kidney and pancreas transplant with fever. COMPARISON STUDY: 10/08/2019 TECHNIQUE: CT scan of the abdomen and pelvis was performed from the lung bases to the proximal femurs . Images are reviewed in the axial, sagittal, and coronal planes. IV contrast was not administered fo r this examination. A dose lowering technique was utilized adhering to the principles of ALARA. CT DOSE: 276.63 mGy.cm FINDINGS: Lower chest: The heart is normal in size and configuration, without pericardial effusion. The lung ba ses and pleural spaces are clear. Liver: The unenhanced liver is normal in size, contour, and attenuation. There is no intrahepatic yancy iary ductal dilatation. Gallbladder: Unremarkable. Spleen: Normal in size and attenuation. Pancreas: No pancreatic masses are visualized on this noncontrast study Adrenal glands: Unremarkable. Kidneys: There are bilateral nonobstructing renal calculi. There are bilateral iliac fossa structures , likely representing renal transplants. There is soft tissue edema surrounding the right iliac fossa lesion. This may indicate acute inflammation. Ultrasound might be considered in follow-up. Correlati on with clinical history recommended. There is a left-sided renal transplant nephroureteral stent. Bowel: There are no transition zones to indicate bowel obstruction. The appendix is not visualized. T here is no acute diverticulitis. Peritoneum: There is no free air. There is trace pelvic fluid. Vasculature: The abdominal aorta is normal in course and caliber. Adenopathy: None. Pelvic viscera: There is mild bladder wall thickening. Skeletal structures: No destructive osseous lesions are seen. IMPRESSION: 1. Significantly limited study from a technical standpoint secondary to the lack of intravenous and o rally administered contrast and the extensive postsurgical changes 2. No evidence of bowel obstruction. No evidence of free air 3. Bilateral nonobstructing renal calculi within the [place] kidneys 4. Bilateral iliac fossa structures, likely representing renal transplants. There is edema surroundin g both suspected transplants more pronounced on the right. This could indicate acute inflammation. Co rrelation with ultrasound could be obtained as deemed clinically appropriate 5. Mild bladder wall thickening ACT 112: Negative or not required by law. Electronically signed by: Edson Sheffield M.D. 03/11/2021 9:03 PM
[2021-03-11 21:05] LABS: Appearance Urine Cloudy (Clear); Bacteria Urine Automated 4+ (Negative); Bilirubin Urine Negative (Negative); Blood Urine 2+ (Negative); Color Urine Yellow; Epithelial Cell Urine Auto 0-5 /lpf (0-5); Glucose Urine UA Negative (Negative); Ketones Urine Trace (Negative); Leukocyte Esterase Urine 1+ (Negative); Nitrite Urine Negative (Negative); Protein Urine 1+ (Negative); Specific Gravity Urine 1.022 (1.000-1.030); Urobilinogen Urine Negative (Negative); WBC Urine Automated >30 /hpf (0-5); pH Urine 5.5 (4.5-7.5)
[2021-03-11 21:09] LABS: Albumin Globulin Ratio 0.8 (0.9-2); Alkaline Phosphatase 132 U/L (45-117); Bilirubin,Total 0.4 mg/dl (0.2-1); Globulin 4.4 gm/dl (2.5-4.0); Total Protein 8.1 gm/dl (6.4-8.2); Troponin I < 0.015 ng/ml (0-0.045)
[2021-03-11 21:26] LABS: Hematocrit (blood only) 34.1 % (42-52); Hemoglobin 11.3 g/dL (14.0-18.0); Mean Corpuscular Volume 96.6 fL (80-100); RDW Coefficient of Variation 16.9 % (11.5-14.5); RDW Standard Deviation 60.1 fL (36.4-46.3); Red Blood Count 3.53 M/uL (4.7-6.1); White Blood Count 7.04 K/uL (4.8-10.8)
[2021-03-11 21:30] LABS: Basophils % (auto) 1.4 %; Eosinophils # (auto) 0.25 K/uL (0-0.5); Eosinophils % (auto) 3.6 %; Immature Granulocytes # (auto) 0.02 K/uL (0.00-0.02); Immature Granulocytes % (auto) 0.3 %; Lymphocytes # (auto) 0.61 K/uL (1.2-3.4); Lymphocytes % (auto) 8.7 %; Monocytes # (auto) 0.27 K/uL (0.11-0.59); Monocytes % (auto) 3.8 %; Neutrophils # (auto) 5.79 K/uL (1.4-6.5); Neutrophils % (auto) 82.2 %
[2021-03-11 21:40] LABS: Influenza A virus by PCR Negative (Negative); Influenza B virus by PCR Negative (Negative); RSV by PCR Negative (Negative)
[2021-03-11] MEDS ORDERED: PIPERACILLIN/TAZOBACTAM 4.5 GM/120 ML BAG IV ONE (21:40)
--- NOTE | 2021-03-12 00:49 | Emergency Department Note ---
History of Present Illness General Chief complaint: Urinary Symptoms Stated complaint: uti Time Seen by Provider: 03/11/21 20:17 History of Present Illness Provider complaint: Dysuria Onset (ago): day(s) 1 Maximum Pain Intensity: 3 Current Pain Intensity: 8 Quality: + stabbing Associated symptoms: + fever/chills; no cough, no headaches, no nausea/vomiting, no rash or no shortness of breath 35-year-old male who is 1 month status post kidney and pancreas transplant done at [facility] presents emergency department for dysuria. He states for the past day he has been having increasing pain when urinating. No hematuria. Patient reports feeling feverish but is not sure if he has had a fever. No cough. Patient is vaccinated as COVID-19. Patient reports suprapubic abdominal pain. Patient reports no nausea or vomiting. No diarrhea. No chest pain or difficulty breathing. Home Medications Medication Instructions Recorded Confirmed Type acetaminophen 325 mg tablet 325 mg PO Q6H PRN 03/11/21 03/11/21 History (Tylenol) aspirin 325 mg tablet 325 mg PO QAM 03/11/21 03/11/21 History atorvastatin 40 mg tablet (Lipitor) 40 mg PO HS 03/11/21 03/11/21 History mycophenolate sodium 180 mg 540 mg PO BID 03/11/21 03/11/21 History tablet,delayed release (Myfortic) ondansetron HCl 4 mg tablet 4 mg PO Q8H PRN 03/11/21 03/11/21 History pantoprazole 40 mg tablet,delayed 40 mg PO QAM 03/11/21 03/11/21 History release (Protonix) patiromer calcium sorbitex 16.8 16.8 g PO DAILY@1400 03/11/21 03/11/21 History gram oral powder packet (Veltassa) sodium bicarbonate 650 mg tablet 1,900 mg PO BID 03/11/21 03/11/21 History sulfamethoxazole 400 1 tab PO 3XWK 03/11/21 03/11/21 History mg-trimethoprim 80 mg tablet (Bactrim) tacrolimus 1 mg capsule, 3 mg PO Q12 03/11/21 03/11/21 History immediate-release (Prograf) tamsulosin 0.4 mg capsule (Flomax) 0.4 mg PO HS 03/11/21 03/11/21 History valganciclovir 450 mg tablet 450 mg PO QAM 03/11/21 03/11/21 History (Valcyte) Allergies Allergy/AdvReac Type Severity Reaction Status Date / Time NSAIDS (Non-Steroidal AdvReac RENAL Unverified 03/11/21 21:44 Anti-Inflamma FAILURE Past Med/Surg History Medical History Anemia in ESRD (end-stage renal disease) Bacteremia due to Staphylococcus aureus MSSA bacteremia 10/05/19 treated with cefazolin x 6 wks Charcot foot due to diabetes mellitus Diabetes mellitus type 1 with complications Diabetic nephropathy Diabetic neuropathy Diabetic retinopathy ESRD on dialysis Fatty liver History of peritoneal dialysis Hypertension Nephrotic syndrome due to diabetes mellitus Peritoneal dialysis catheter in place REMOVED 11/10/19 Prolonged QT interval TIA (transient ischemic attack) Surgical History Kidney transplanted Pancreas transplanted S/P eye surgery Family History Mother Hypertension Grandfather (Maternal) Diabetes Grandmother (Maternal) Diabetes Grandmother (Paternal) Diabetes Social History Smoking Status: Former smoker Second Hand Exposure: No; Hx Alcohol Use: No Hx Substance Use: No Preferred Language: Estonian Communication Ability: Effective Visual Impairment: Limited Folder Gluer Operator Required: No Beliefs That Will Affect Care: None marital status: Single Current Living Situation: Alone current occupational status: employed Feels Safe at Home: Yes Assistive Devices: Glasses Review of Systems A total of 10 systems reviewed and were otherwise negative Physical Exam Vital Signs Vital Signs - 24 hr 03/11/21 19:58 03/11/21 22:00 03/11/21 22:26 Temperature 38.4 C H Temperature Source Temporal Artery Scan Pulse Rate 95 H 85 Pulse Rate from SpO2 Sensor 85 Pulse Rhythm Regular Pulse Strength Normal Respiratory Rate 16 27 H Respiratory Effort / Characteristics Non-Labored Non-Labored Spontaneous Respiratory Depth Normal Respiratory Pattern Regular Blood Pressure 203/97 H 175/93 H Blood Pressure Mean 132 120 Blood Pressure Position Sitting Pulse Oximetry 98 99 98 Oxygen Delivery Method Room Air Room Air Sepsis Recent Fever Within 48 Hours No Sepsis New/Unexplained Change in Mental Status N/A Sepsis Action Taken by Nursing No Action Required 03/11/21 22:30 03/11/21 23:00 03/11/21 23:30 Temperature Temperature Source Pulse Rate 85 82 79 Pulse Rate from SpO2 Sensor 85 83 79 Pulse Rhythm Pulse Strength Respiratory Rate 26 H 33 H 27 H Respiratory Effort / Characteristics Respiratory Depth Respiratory Pattern Blood Pressure 195/98 H 163/97 H 185/81 H Blood Pressure Mean 130 119 115 Blood Pressure Position Pulse Oximetry 98 98 98 Oxygen Delivery Method Sepsis Recent Fever Within 48 Hours Sepsis New/Unexplained Change in Mental Status Sepsis Action Taken by Nursing Physical Exam GENERAL: He is oriented to person, place, and time. He appears well-developed and well-nourished. He does not appear distressed. HENT: Exam performed. - Head: Normocephalic and atraumatic. - Right Ear: External ear normal. No mastoid tenderness. - Left Ear: External ear normal. No mastoid tenderness. - Mouth/Throat: The oropharynx is clear and moist. No trismus in the jaw. No dental abscesses or uvula swelling. No oropharyngeal exudate or tonsillar abscesses. EYES: Conjunctivae and EOM are normal. Pupils are equal, round, and reactive to light. Right eye exhibits no discharge. Left eye exhibits no discharge. No sc leral icterus. NECK: Normal range of motion. Neck supple. No JVD present. No spinous process tenderness present. No carotid bruit present. No rigidity. No tracheal deviation and normal range of motion present. No Brudzinski's sign and no Kernig's sign noted. CV: Normal rate, regular rhythm, normal heart sounds and intact distal pulses. There is no peripheral edema. Palpable radial pulses bue. PULM/CHEST: Effort normal and breath sounds normal. No respiratory distress. No stridor. He has no wheezes. He has no rales. - Chest Wall: He exhibits no tenderness. ABD: Scar over the anterior abdomen is clean and dry. No surrounding erythema or discharge. Pain on palpation of the suprapubic area. No rigidity or guarding. MUSC/SKEL: Normal range of motion. There is no peripheral edema, tenderness or deformity. LYMPH: No cervical adenopathy. NEURO: He is alert and oriented to person, place, and time. He has normal strength. No cranial nerve deficit or sensory deficit. Coordination and gait normal. GCS eye subscore is 4. GCS verbal subscore is 5. GCS motor subscore is 6. Cerebellar tests wnl. SKIN: Skin is warm and dry. He is not diaphoretic. PSYCH: He has a normal mood and affect. Behavior is normal. Judgment and thought content normal. Course Course 2017: The patient was evaluated in room C6. A complete history and physical exam was performed Cardiac monitoring: An order was placed for continuous cardiac monitoring. The monitor shows a rate of 90 with sinus rhythm 2205: Vital signs stable. Labs show no elevation of procalcitonin, lactic acid or white blood cell count. Creatinine is 1.8. Urinalysis does appear to be infected. Patient will be treated with Zosyn. CT of the abdomen does show i nflammation around the transplant area. Discussed the case with Dr. Rain [facility] transplant surgery who does recommend that the patient be transferred to [facility]. He agrees with Zosyn at this time. Patient is in agreement for transfer. Administered Medications Discontinued Medications Piperacillin Sod/Tazobactam Sod (Zosyn) 4.5 gm in 120 mls @ 240 mls/hr IV NOW ONE Stop: 03/11/21 22:09 Last Infusion: 03/11/21 22:23 Dose: 0 mls/hr Documented by: [id number] Admin: 03/11/21 21:48 Dose: 240 mls/hr Documented by: [id number] Medical Decision Making Laboratory Data Result diagrams: 03/11/21 20:30 03/11/21 20:30 Lab Results 03/11/21 03/11/21 03/11/21 Range/Units 20:30 20:30 20:30 WBC 7.04 (4.8-10.8) K/uL RBC 3.53 L (4.7-6.1) M/uL Hgb 11.3 L (14.0-18.0) g/dL Hct 34.1 L (42-52) % MCV 96.6 (80-100) fL MCH 32.0 (25-34) pg MCHC 33.1 (32-36) g/dL RDW Std Deviation 60.1 H (36.4-46.3) fL RDW Coeff of Ralph 16.9 H (11.5-14.5) % Plt Count 278 (130-400) K/uL MPV 10.0 (7.4-10.4) fL Immature Gran % (Auto) 0.3 % Neut % (Auto) 82.2 % Lymph % (Auto) 8.7 % [place] % (Auto) 3.8 % Eos % (Auto) 3.6 % Baso % (Auto) 1.4 % Neut # (Auto) 5.79 (1.4-6.5) K/uL Lymph # (Auto) 0.61 L (1.2-3.4) K/uL [place] # (Auto) 0.27 (0.11-0.59) K/uL Eos # (Auto) 0.25 (0-0.5) K/uL Baso # (Auto) 0.10 (0-0.2) K/uL Immature Gran # (Auto) 0.02 (0.00-0.02) K/uL PT 10.5 (9.0-12.0) Seconds INR 1.0 (0.9-1.1) APTT 24.5 (21.0-31.0) Seconds PTT Ratio 0.9 Sodium 138 (136-145) mmol/L Potassium 4.5 (3.5-5.1) mmol/L Chloride 109 H (98-107) mmol/L Carbon Dioxide 22 (21-32) mmol/L Anion Gap 7.0 (3-11) BUN 27 H (7-18) mg/dl Creatinine 1.83 H (0.6-1.4) mg/dl Est Cr Clr Drug Dosing 53.0 ml/min Est GFR ( Amer) 53.8 ml/min Est GFR (Non-Af Amer) 46.4 ml/min BUN/Creatinine Ratio 14.9 (10-20) Glucose 89 (70-99) mg/dl Lactate (0.4-2.0) mmol/L Calcium 9.2 (8.5-10.1) mg/dl Magnesium 1.9 (1.8-2.4) mg/dl Total Bilirubin 0.4 (0.2-1) mg/dl AST 9 L (15-37) U/L ALT 22 (12-78) U/L Alkaline Phosphatase 132 H (45-117) U/L Troponin I < 0.015 (0-0.045) ng/ml Total Protein 8.1 (6.4-8.2) gm/dl Albumin 3.7 (3.4-5.0) gm/dl Globulin 4.4 H (2.5-4.0) gm/dl Albumin/Globulin Ratio 0.8 L (0.9-2) Lipase 272 (73-393) U/L Procalcitonin (0-0.5) ng/ml Urine Color Urine Appearance (Clear) Urine pH (4.5-7.5) Ur Specific [place] (1.000-1.030) Urine Protein (Negative) Urine Glucose (UA) (Negative) Urine Ketones (Negative) Urine Blood (Negative) Urine Nitrite (Negative) Urine Bilirubin (Negative) Urine Urobilinogen (Negative) Ur Leukocyte Esterase (Negative) Urine WBC (Auto) (0-5) /hpf Urine RBC (Auto) (0-4) /hpf U Hyaline Cast (Auto) (0-5) /lpf U Epithel Cells (Auto) (0-5) /lpf Urine Bacteria (Auto) (Negative) COVID-19 Eval Order SARS-CoV-2 (PCR) (Negative) Influ A Molecular Assay (Negative) Influ B Molecular Assay (Negative) RSV (Molecular) (Negative) 03/11/21 03/11/21 03/11/21 Range/Units 20:30 20:30 20:30 WBC (4.8-10.8) K/uL RBC (4.7-6.1) M/uL Hgb (14.0-18.0) g/dL Hct (42-52) % MCV (80-100) fL MCH (25-34) pg MCHC (32-36) g/dL RDW Std Deviation (36.4-46.3) fL RDW Coeff of Ralph (11.5-14.5) % Plt Count (130-400) K/uL MPV (7.4-10.4) fL Immature Gran % (Auto) % Neut % (Auto) % Lymph % (Auto) % [place] % (Auto) % Eos % (Auto) % Baso % (Auto) % Neut # (Auto) (1.4-6.5) K/uL Lymph # (Auto) (1.2-3.4) K/uL [place] # (Auto) (0.11-0.59) K/uL Eos # (Auto) (0-0.5) K/uL Baso # (Auto) (0-0.2) K/uL Immature Gran # (Auto) (0.00-0.02) K/uL PT (9.0-12.0) Seconds INR (0.9-1.1) APTT (21.0-31.0) Seconds PTT Ratio Sodium (136-145) mmol/L Potassium (3.5-5.1) mmol/L Chloride (98-107) mmol/L Carbon Dioxide (21-32) mmol/L Anion Gap (3-11) BUN (7-18) mg/dl Creatinine (0.6-1.4) mg/dl Est Cr Clr Drug Dosing ml/min Est GFR ( Amer) ml/min Est GFR (Non-Af Amer) ml/min BUN/Creatinine Ratio (10-20) Glucose (70-99) mg/dl Lactate 1.0 (0.4-2.0) mmol/L Calcium (8.5-10.1) mg/dl Magnesium (1.8-2.4) mg/dl Total Bilirubin (0.2-1) mg/dl AST (15-37) U/L ALT (12-78) U/L Alkaline Phosphatase (45-117) U/L Troponin I (0-0.045) ng/ml Total Protein (6.4-8.2) gm/dl Albumin (3.4-5.0) gm/dl Globulin (2.5-4.0) gm/dl Albumin/Globulin Ratio (0.9-2) Lipase (73-393) U/L Procalcitonin 0.24 (0-0.5) ng/ml Urine Color Yellow Urine Appearance Cloudy A (Clear) Urine pH 5.5 (4.5-7.5) Ur Specific [place] 1.022 (1.000-1.030) Urine Protein 1+ H (Negative) Urine Glucose (UA) Negative (Negative) Urine Ketones Trace H (Negative) Urine Blood 2+ H (Negative) Urine Nitrite Negative (Negative) Urine Bilirubin Negative (Negative) Urine Urobilinogen Negative (Negative) Ur Leukocyte Esterase 1+ H (Negative) Urine WBC (Auto) >30 H (0-5) /hpf Urine RBC (Auto) 10-30 H (0-4) /hpf U Hyaline Cast (Auto) 10-30 H (0-5) /lpf U Epithel Cells (Auto) 0-5 (0-5) /lpf Urine Bacteria (Auto) 4+ H (Negative) COVID-19 Eval Order SARS-CoV-2 (PCR) (Negative) Influ A Molecular Assay (Negative) Influ B Molecular Assay (Negative) RSV (Molecular) (Negative) 03/11/21 03/11/21 03/11/21 Range/Units 21:10 21:10 21:10 WBC (4.8-10.8) K/uL RBC (4.7-6.1) M/uL Hgb (14.0-18.0) g/dL Hct (42-52) % MCV (80-100) fL MCH (25-34) pg MCHC (32-36) g/dL RDW Std Deviation (36.4-46.3) fL RDW Coeff of Ralph (11.5-14.5) % Plt Count (130-400) K/uL MPV (7.4-10.4) fL Immature Gran % (Auto) % Neut % (Auto) % Lymph % (Auto) % [place] % (Auto) % Eos % (Auto) % Baso % (Auto) % Neut # (Auto) (1.4-6.5) K/uL Lymph # (Auto) (1.2-3.4) K/uL [place] # (Auto) (0.11-0.59) K/uL Eos # (Auto) (0-0.5) K/uL Baso # (Auto) (0-0.2) K/uL Immature Gran # (Auto) (0.00-0.02) K/uL PT (9.0-12.0) Seconds INR (0.9-1.1) APTT (21.0-31.0) Seconds PTT Ratio Sodium (136-145) mmol/L Potassium (3.5-5.1) mmol/L Chloride (98-107) mmol/L Carbon Dioxide (21-32) mmol/L Anion Gap (3-11) BUN (7-18) mg/dl Creatinine (0.6-1.4) mg/dl Est Cr Clr Drug Dosing ml/min Est GFR ( Amer) ml/min Est GFR (Non-Af Amer) ml/min BUN/Creatinine Ratio (10-20) Glucose (70-99) mg/dl Lactate (0.4-2.0) mmol/L Calcium (8.5-10.1) mg/dl Magnesium (1.8-2.4) mg/dl Total Bilirubin (0.2-1) mg/dl AST (15-37) U/L ALT (12-78) U/L Alkaline Phosphatase (45-117) U/L Troponin I (0-0.045) ng/ml Total Protein (6.4-8.2) gm/dl Albumin (3.4-5.0) gm/dl Globulin (2.5-4.0) gm/dl Albumin/Globulin Ratio (0.9-2) Lipase (73-393) U/L Procalcitonin (0-0.5) ng/ml Urine Color Urine Appearance (Clear) Urine pH (4.5-7.5) Ur Specific [place] (1.000-1.030) Urine Protein (Negative) Urine Glucose (UA) (Negative) Urine Ketones (Negative) Urine Blood (Negative) Urine Nitrite (Negative) Urine Bilirubin (Negative) Urine Urobilinogen (Negative) Ur Leukocyte Esterase (Negative) Urine WBC (Auto) (0-5) /hpf Urine RBC (Auto) (0-4) /hpf U Hyaline Cast (Auto) (0-5) /lpf U Epithel Cells (Auto) (0-5) /lpf Urine Bacteria (Auto) (Negative) COVID-19 Eval Order Covid19 at [facility] SARS-CoV-2 (PCR) NEGATIVE (Negative) Influ A Molecular Assay Negative (Negative) Influ B Molecular Assay Negative (Negative) RSV (Molecular) Negative (Negative) Imaging Data My Impression: Chest x-ray negative. Airway clear. No pneumothorax. No consolidation. No cardiomegaly or cephalization.. No free air under the diaphragm. No fractures of the skeletal structures. Radiologist's Impression: Abdomen/Pelvis CT 03/11/21 20:18 CT SCAN OF THE ABDOMEN AND PELVIS WITHOUT CONTRAST CLINICAL HISTORY: Post kidney and pancreas transplant with fever. COMPARISON STUDY: 10/08/2019 TECHNIQUE: CT scan of the abdomen and pelvis was performed from the lung bases to the proximal femurs. Images are reviewed in the axial, sagittal, and coronal planes. IV contrast was not administered for this examination. A dose lowering technique was utilized adhering to the principles of ALARA. CT DOSE: 276.63 mGy.cm FINDINGS: Lower chest: The heart is normal in size and configuration, without pericardial effusion. The lung bases and pleural spaces are clear. Liver: The unenhanced liver is normal in size, contour, and attenuation. There is no intrahepatic biliary ductal dilatation. Gallbladder: Unremarkable. Spleen: Normal in size and attenuation. Pancreas: No pancreatic masses are visualized on this noncontrast study Adrenal glands: Unremarkable. Kidneys: There are bilateral nonobstructing renal calculi. There are bilateral iliac fossa structures, likely representing renal transplants. There is soft tissue edema surrounding the right iliac fossa lesion. This may indicate acute inflammation. Ultrasound might be considered in follow-up. Correlation with clinical history recommended. There is a left-sided renal transplant nephroureteral stent. Bowel: There are no transition zones to indicate bowel obstruction. The appendix is not visualized. There is no acute diverticulitis. Peritoneum: There is no free air. There is trace pelvic fluid. Vasculature: The abdominal aorta is normal in course and caliber. Adenopathy: None. Pelvic viscera: There is mild bladder wall thickening. Skeletal structures: No destructive osseous lesions are seen. IMPRESSION: 1. Significantly limited study from a technical standpoint secondary to the lack of intravenous and orally administered contrast and the extensive postsurgical changes 2. No evidence of bowel obstruction. No evidence of free air 3. Bilateral nonobstructing renal calculi within the [place] kidneys 4. Bilateral iliac fossa structures, likely representing renal transplants. There is edema surrounding both suspected transplants more pronounced on the right. This could indicate acute inflammation. Correlation with ultrasound could be obtained as deemed clinically appropriate 5. Mild bladder wall thickening ACT 112: Negative or not required by law. Electronically signed by: Edson Sheffield M.D. 03/11/2021 9:03 PM ECG Data Indication: + abdominal pain Rate (beats per minute): 90 Rhythm: + normal sinus ECG Intervals/blocks: + Normal QRS, + Normal SD and + Normal QT-c ECG ST segments: + Normal ST segments MDM Narrative Vital signs stable. Labs show no elevation of procalcitonin, lactic acid or white blood cell count. Creatinine is 1.8. Urinalysis does appear to be infected. Patient will be treated with Zosyn. CT of the abdomen does show inflammation around the transplant area. Discussed the case with Dr. Rain [facility] transplant surgery who does recommend that the patient be transferred to [facility]. He agrees with Emelia at this time. Patient is in agreement for transfer. Impression & Plan Acute UTI Discharge Plan Visit Data Chief Complaint: Urinary Symptoms Stated Complaint: uti ED Provider: Edouard Bhatia Discharge Problem: Acute UTI Patient Disposition: Transfer Acute Care Hospital Forms Stand Alone Forms: [facility] Prescriptions Prescriptions: No Action atorvastatin [Lipitor] 40 mg tablet 40 mg PO HS RF: 0 valganciclovir [Valcyte] 450 mg Tablet 450 mg PO QAM RF: 0 acetaminophen [Tylenol] 325 mg Tablet 325 mg PO Q6H PRN (Reason: Pain) RF: 0 aspirin 325 mg Tablet 325 mg PO QAM RF: 0 sulfamethoxazole-trimethoprim [Bactrim] 400-80 mg tablet 1 tab PO 3XWK RF: 0 ondansetron HCl 4 mg Tablet 4 mg PO Q8H PRN (Reason: nausea/vomiting) RF: 0 tamsulosin [Flomax] 0.4 mg capsule 0.4 mg PO HS RF: 0 sodium bicarbonate 650 mg Tablet 1,900 mg PO BID RF: 0 pantoprazole [Protonix] 40 mg tablet,delayed release (DR/EC) 40 mg PO QAM RF: 0 tacrolimus [Prograf] 1 mg capsule 3 mg PO Q12 RF: 0 mycophenolate sodium [Myfortic] 180 mg tablet,delayed release (DR/EC) 540 mg PO BID RF: 0 Veltassa 16.8 gram powder in packet 16.8 g PO DAILY@1400 RF: 0 Referrals Referrals: Ciro Singh MD [Primary Care Provider] -
--- NOTE | 2021-03-12 04:01 | Emergency Department Note ---
ED Visit Note This case was signed out to me at change of shift awaiting transfer to [facility] in care of his transplant team. During the night time nanny, we contacted [facility] transfer center and they explained that they would not be able to accept this patient until sometime later in the afternoon at the earliest. I did not feel it was best for this patient to remain in the emergency department. I contacted the [facility] hospitalist group and they will evaluate the patient for further inpatient care here until bed becomes available in [place]. .
[2021-03-12] MEDS ORDERED: ONDANSETRON INJ 2 MG/ML 2 ML VIAL IV PRN (06:50)
[2021-03-12] MEDS ORDERED: SODIUM CHLORIDE 0.9% 1000ML 1,000 ML IV SCH (06:50)
[2021-03-12] MEDS ORDERED: PIPERACILL/TAZOBAC CONSULT ACTIVE PRN (06:50)
[2021-03-12] MEDS ORDERED: NITROGLYCERIN SL 0.4 MG/TAB TAB SL PRN (06:50)
--- NOTE | 2021-03-12 06:59 | XRay Report ---
XR chest 1V portable CLINICAL HISTORY: SEPSIS COMPARISON STUDY: June 11, 2020 FINDINGS: No pneumothorax. No pleural effusion. Few linear densities are seen in bilateral bases and could represent small atelectasis or infiltrates . The rest of lung parenchyma is clear. Cardiomediastinal silhouette is within normal limits in size. No significant pulmonary vascular congestion.. Osseous structures: unremarkable IMPRESSION: 1. Minimal atelectasis or infiltrates at bilateral bases. ACT 112: Negative or not required by law. The above report was generated using voice recognition software. It may contain grammatical, syntax o r spelling errors. Electronically signed by: Rashmi Wilson DO 03/12/2021 6:58 AM
--- NOTE | 2021-03-12 07:01 | History and Physical Report ---
DATE OF ADMISSION: 03/12/21 CHIEF COMPLAINT: Urinary symptoms. HISTORY OF PRESENT ILLNESS: This is a 35-year-old male with past medical history significant for type 1 diabetes, history of end-stage renal disease, was on hemodialysis, currently status post renal transplant and pancreatic transplant about 1 month ago at [facility], history of migraines, former smoker who comes here because since yesterday, he was having decreased urination, also burning sensation with urination and frequent urination and called the [facility] and advised to come to the ER. In the ER, he was having temp spike. He was also feeling cold and his urine was positive. ER physician talked to the [facility] transfer center. CT of the abdomen and pelvis was done in the ER showing possible inflammation around the transplant area and the ER physician discussed the case with Dr. Rain at [facility] Transplant Surgery who recommended transfer the patient to the [facility] and it was agreed for Zosyn at this time. Patient is waiting for transfer but [facility] called back and said they do not have beds available until afternoon, so we were called to admit the patient and await for transfer. The patient is currently resting comfortably. Blood pressure running on the higher side. He states since transplant, his blood pressure has actually been a little low at home.Has some lower abdominal discomfort. Denies any hematuria. Somewhat constipated, but when he moves his bowels, they are loose. Denies any blood in stools or black stools. He says his swelling in the legs is improved. He says since his pancreas transplantation his sugars are perfectly controlled. Denies any chest pain, no shortness of breath, no cough, has some mild headache, no blurred visions, no earache, no runny nose, no sore throat. Appetite is down from his medications, but when he eats he swallows okay. Ambulates okay. Lives alone. No rash. ALLERGIES: NSAIDs. PAST MEDICAL HISTORY: As mentioned above. PAST SURGICAL HISTORY: Status post renal and pancreas transplant about a month ago, EGDs, injection of eye drug, laparoscopy insertion of intraperitoneal cannula, partial removal of the eye fluid, removal of the parotid gland. MEDICATIONS: Currently the patient is on Tylenol 350 mg p.o. q. 6 hours p.r.n., aspirin 325 mg p.o. a.m., Lipitor 40 mg p.o. at bedtime, mycophenolate sodium 540 mg p.o. b.i.d., Zofran 4 mg p.o. q. 2 hours p.r.n., Protonix 40 mg p.o. a.m., Veltassa 16.8 gm p.o. daily, sodium bicarbonate 1900 mg p.o. b.i.d., Bactrim 1 tablet p.o. 3 times a week, Prograf 3 mg p.o. b.i.d., Flomax 0.4 mg p.o. at bedtime, Valganciclovir 450 mg p.o. a.m. FAMILY HISTORY: Significant for maternal grandparents have diabetes, paternal grandmother has diabetes. SOCIAL HISTORY: Single, former smoker, smoked 1 pack a day for 23 years, quit in 2017, stopped drinking alcohol, no drug use. REVIEW OF SYSTEMS: As per HPI. Rest of review of systems is negative. PHYSICAL EXAMINATION: GENERAL: The patient is of moderate build, not in acute distress. VITAL SIGNS: T-max 38.4, pulse 82, respiratory rate 21, blood pressure 199/103, oxygen 97% on room air. HEENT: Pupils equal, round and reactive to light. Oral mucosa moist. NECK: No JVD or neck masses. HEART: S1 and S2 heard. Regular rate and rhythm. No murmur, no gallop. RESPIRATORY SYSTEM: Normal AP diameter. No accessory muscle use. No wheezing, no crackles. ABDOMEN: Soft, bowel sounds present, nontender, no distention. CENTRAL NERVOUS SYSTEM: Cranial nerves II-XII grossly intact. EXTREMITIES: No edema, no erythema. LABORATORY DATA: WBC 7, hemoglobin 11.3, hematocrit 34.1, platelets 278. PT 10.4, INR 1, APTT 24.5. Sodium 138, potassium 4.5, chloride 109, bicarbonate 22, BUN 27, creatinine 1.8, serum glucose 89. Lactate 1. Calcium 9.2, magnesium 1.9, total bilirubin 0.4, AST 9, ALT 32, alkaline phosphatase 132. Troponin I less than 0.015. Lipase 272. Procalcitonin 0.24. Urinalysis, +1 leukocyte esterase, +4 bacteria. SARS-CoV-2 PCR negative. Influenza A and B negative. RSV negative. Chest x-ray, no acute findings. EKG: Normal sinus rhythm, no acute ST changes seen. IMAGING DATA: CT abdomen and pelvis without contrast shows no evidence of bowel obstruction, no evidence of free air. There is edema surrounding both transplants, more pronounced on the right, mild bladder wall thickening. ASSESSMENT AND PLAN: This is a 35-year-old male, presents with urinary symptoms and found to have UTI and also inflammation on his transplanted region. 1. UTI complicated. Patient is status post renal and pancreas transplant 1 month ago at [facility]. CAT scan shows probable inflammation around the transplant area. ER physician talked to the [facility] transplant center and the patient was accepted in transfer by Dr. Rain and was okay to give Zosyn. But as there was no bed available until the afternoon we are admitting the patient and transfer to [facility] as soon as possible when the bed is available. Continue Zosyn for now. 2. Renal and pancreas transplant. Continue his transplant medications and prophylactic Bactrim. 3. Hypertension. The patient says since transplant, his blood pressure is running a little low. We will monitor his blood pressure. 4. Deep venous thrombosis prophylaxis. Sequential compression devices for now. DISPOSITION: Admit to tele floor. Await transfer to [facility]. Level 1 full code. Job ID: [id number] [facility]
[2021-03-12 07:20] LABS: Basophils % (auto) 2.3 %; Eosinophils # (auto) 0.29 K/uL (0-0.5); Eosinophils % (auto) 3.4 %; Hematocrit (blood only) 30.5 % (42-52); Hemoglobin 10.3 g/dL (14.0-18.0); Immature Granulocytes # (auto) 0.02 K/uL (0.00-0.02); Immature Granulocytes % (auto) 0.2 %; Lymphocytes # (auto) 0.42 K/uL (1.2-3.4); Lymphocytes % (auto) 4.9 %; Mean Corpuscular Hemoglobin 31.8 pg (25-34); Mean Corpuscular Hgb Conc 33.8 g/dL (32-36); Mean Corpuscular Volume 94.1 fL (80-100); Mean Platelet Volume 9.7 fL (7.4-10.4); Monocytes # (auto) 0.44 K/uL (0.11-0.59); Monocytes % (auto) 5.2 %; Neutrophils # (auto) 7.15 K/uL (1.4-6.5); Platelet Count 237 K/uL (130-400); RDW Coefficient of Variation 16.5 % (11.5-14.5); RDW Standard Deviation 57.6 fL (36.4-46.3); Red Blood Count 3.24 M/uL (4.7-6.1); White Blood Count 8.52 K/uL (4.8-10.8)
[2021-03-12] MEDS ORDERED: PIPERACILLIN/TAZOBACTAM 4.5 GM in DEXTROSE 5% 100 ML IV ONE (07:30)
[2021-03-12 07:48] LABS: BUN Creatinine Ratio 12.4 (10-20); Creatinine Clr Calc Pharmacy 53.4 ml/min; Est GFR (African American) 58.8 ml/min; Est GFR (Non-African American) 50.8 ml/min; Magnesium 1.8 mg/dl (1.8-2.4); Potassium 4.9 mmol/L (3.5-5.1)
[2021-03-12] MEDS: ASPIRIN 325 MG ECTAB PO SCH (08:20)
[2021-03-12] MEDS: TACROLIMUS 1 MG CAP PO SCH ×2 (08:20→20:52)
[2021-03-12] MEDS: MYCOPHENOLATE SODIUM 180 MG TAB PO SCH ×2 (08:20→20:51)
[2021-03-12] MEDS: PANTOprazole 40 MG TAB PO SCH (08:20)
[2021-03-12] MEDS ORDERED: SULFA/TRIMETH 400/80MG TAB PO SCH (09:00)
[2021-03-12] MEDS: ACETAMINOPHEN 1,000 MG/100 ML VIAL IV STA (10:03)
[2021-03-12] MEDS: SODIUM BICARBONATE 650 MG TAB PO SCH ×2 (10:13→22:52)
--- NOTE | 2021-03-12 13:08 | Discharge Summary ---
Date of Service March 14, 2021 Admission HPI Per Admitting Provider HISTORY OF PRESENT ILLNESS: This is a 35-year-old male with past medical history significant for type 1 diabetes, history of end-stage renal disease, was on hemodialysis, currently status post renal transplant and pancreatic transplant about 1 month ago at [facility], history of migraines, former smoker who comes here because since yesterday, he was having decreased urination, also burning sensation with urination and frequent urination and called the [facility] and advised to come to the ER. In the ER, he was having temp spike. He was also feeling cold and his urine was positive. ER physician talked to the [facility] transfer center. CT of the abdomen and pelvis was done in the ER showing possible inflammation around the transplant area and the ER physician discussed the case with Dr. Rain at [facility] Transplant Surgery who recommended transfer the patient to the [facility] and it was agreed for Zosyn at this time. Patient is waiting for transfer but [facility] called back and said they do not have beds available until afternoon, so we were called to admit the patient and await for transfer. The patient is currently resting comfortably. Blood pressure running on the higher side. He states since t ransplant, his blood pressure has actually been a little low at home.Has some lower abdominal discomfort. Denies any hematuria. Somewhat constipated, but when he moves his bowels, they are loose. Denies any blood in stools or black stools. He says his swelling in the legs is improved. He says since his pancreas transplantation his sugars are perfectly controlled. Denies any chest pain, no shortness of breath, no cough, has some mild headache, no blurred visions, no earache, no runny nose, no sore throat. Appetite is down from his medications, but when he eats he swallows okay. Ambulates okay. Lives alone. No rash. Admission Exam Per Admitting Provider PHYSICAL EXAMINATION: GENERAL: The patient is of moderate build, not in acute distress. VITAL SIGNS: T-max 38.4, pulse 82, respiratory rate 21, blood pressure 199/103, oxygen 97% on room air. HEENT: Pupils equal, round and reactive to light. Oral mucosa moist. NECK: No JVD or neck masses. HEART: S1 and S2 heard. Regular rate and rhythm. No murmur, no gallop. RESPIRATORY SYSTEM: Normal AP diameter. No accessory muscle use. No wheezing, no crackles. ABDOMEN: Soft, bowel sounds present, nontender, no distention. CENTRAL NERVOUS SYSTEM: Cranial nerves II-XII grossly intact. EXTREMITIES: No edema, no erythema. Principal Diagnosis UTI s/p pancreatic renal transplant one month ago Immunosuppressed status Discharge Exam Discharge exam not performed as patient was transferred out on 03/14 prior to provider seeing patient. Discharge Data Allergies Allergy/AdvReac Type Severity Reaction Status Date / Time NSAIDS (Non-Steroidal AdvReac RENAL Unverified 03/11/21 21:44 Anti-Inflamma FAILURE Consultations 03/12/21 06:18 ED Decision to Admit Stat Ordered Studies Laboratory Results WBC 8.52 K/uL (4.8-10.8) 03/12/21 06:59 RBC 3.24 M/uL (4.7-6.1) L 03/12/21 06:59 Hgb 10.3 g/dL (14.0-18.0) L 03/12/21 06:59 Hct 30.5 % (42-52) L 03/12/21 06:59 MCV 94.1 fL (80-100) 03/12/21 06:59 MCH 31.8 pg (25-34) 03/12/21 06:59 MCHC 33.8 g/dL (32-36) 03/12/21 06:59 RDW Std Deviation 57.6 fL (36.4-46.3) H 03/12/21 06:59 RDW Coeff of Ralph 16.5 % (11.5-14.5) H 03/12/21 06:59 Plt Count 237 K/uL (130-400) 03/12/21 06:59 MPV 9.7 fL (7.4-10.4) 03/12/21 06:59 Immature Gran % (Auto) 0.2 % 03/12/21 06:59 Neut % (Auto) 84.0 % 03/12/21 06:59 Lymph % (Auto) 4.9 % 03/12/21 06:59 Luce % (Auto) 5.2 % 03/12/21 06:59 Eos % (Auto) 3.4 % 03/12/21 06:59 Baso % (Auto) 2.3 % 03/12/21 06:59 Neut # (Auto) 7.15 K/uL (1.4-6.5) H 03/12/21 06:59 Lymph # (Auto) 0.42 K/uL (1.2-3.4) L 03/12/21 06:59 Luce # (Auto) 0.44 K/uL (0.11-0.59) 03/12/21 06:59 Eos # (Auto) 0.29 K/uL (0-0.5) 03/12/21 06:59 Baso # (Auto) 0.20 K/uL (0-0.2) 03/12/21 06:59 Immature Gran # (Auto) 0.02 K/uL (0.00-0.02) 03/12/21 06:59 PT 10.5 Seconds (9.0-12.0) 03/11/21 20:30 INR 1.0 (0.9-1.1) 03/11/21 20:30 APTT 24.5 Seconds (21.0-31.0) 03/11/21 20:30 PTT Ratio 0.9 03/11/21 20:30 Sodium 136 mmol/L (136-145) 03/12/21 06:59 Potassium 4.9 mmol/L (3.5-5.1) 03/12/21 06:59 Chloride 108 mmol/L (98-107) H 03/12/21 06:59 Carbon Dioxide 22 mmol/L (21-32) 03/12/21 06:59 Anion Gap 5.0 (3-11) 03/12/21 06:59 BUN 21 mg/dl (7-18) H 03/12/21 06:59 Creatinine 1.70 mg/dl (0.6-1.4) H 03/12/21 06:59 Est Cr Clr Drug Dosing 53.4 ml/min 03/12/21 06:59 Est GFR ( Amer) 58.8 ml/min 03/12/21 06:59 Est GFR (Non-Af Amer) 50.8 ml/min 03/12/21 06:59 BUN/Creatinine Ratio 12.4 (10-20) 03/12/21 06:59 Glucose 82 mg/dl (70-99) 03/12/21 06:59 Lactate 1.0 mmol/L (0.4-2.0) 03/11/21 20:30 Calcium 9.0 mg/dl (8.5-10.1) 03/12/21 06:59 Magnesium 1.8 mg/dl (1.8-2.4) 03/12/21 06:59 Total Bilirubin 0.4 mg/dl (0.2-1) 03/11/21 20:30 AST 9 U/L (15-37) L 03/11/21 20:30 ALT 22 U/L (12-78) 03/11/21 20:30 Alkaline Phosphatase 132 U/L (45-117) H 03/11/21 20:30 Troponin I < 0.015 ng/ml (0-0.045) 03/11/21 20: Total Protein 8.1 gm/dl (6.4-8.2) 03/11/21 20:30 Albumin 3.7 gm/dl (3.4-5.0) 03/11/21 20:30 Globulin 4.4 gm/dl (2.5-4.0) H 03/11/21 20:30 Albumin/Globulin Ratio 0.8 (0.9-2) L 03/11/21 20:30 Lipase 272 U/L (73-393) 03/11/21 20:30 Procalcitonin 0.24 ng/ml (0-0.5) 03/11/21 20:30 Urine Color Yellow 03/11/21 20:30 Urine Appearance Cloudy (Clear) A 03/11/21 20:30 Urine pH 5.5 (4.5-7.5) 03/11/21 20:30 Ur Specific [place] 1.022 (1.000-1.030) 03/11/21 20:30 Urine Protein 1+ (Negative) H 03/11/21 20:30 Urine Glucose (UA) Negative (Negative) 03/11/21 20: Urine Ketones Trace (Negative) H 03/11/21 20:30 Urine Blood 2+ (Negative) H 03/11/21 20:30 Urine Nitrite Negative (Negative) 03/11/21 20:30 Urine Bilirubin Negative (Negative) 03/11/21 20:30 Urine Urobilinogen Negative (Negative) 03/11/21 20: Ur Leukocyte Esterase 1+ (Negative) H 03/11/21 20:30 Urine WBC (Auto) >30 /hpf (0-5) H 03/11/21 20:30 Urine RBC (Auto) 10-30 /hpf (0-4) H 03/11/21 20:30 U Hyaline Cast (Auto) 10-30 /lpf (0-5) H 03/11/21 20:30 U Epithel Cells (Auto) 0-5 /lpf (0-5) 03/11/21 20:30 Urine Bacteria (Auto) 4+ (Negative) H 03/11/21 20:30 COVID-19 Eval Order Covid19 at [facility] 03/11/21 21:10 SARS-CoV-2 (PCR) NEGATIVE (Negative) 03/11/21 21:10 Influ A Molecular Assay Negative (Negative) 03/11/21 21:10 Influ B Molecular Assay Negative (Negative) 03/11/21 21:10 RSV (Molecular) Negative (Negative) 03/11/21 21:10 Impressions Chest X-Ray 03/11/21 20:17 XR chest 1V portable CLINICAL HISTORY: SEPSIS COMPARISON STUDY: June 11, 2020 FINDINGS: No pneumothorax. No pleural effusion. Few linear densities are seen in bilateral bases and could represent small atelectasis or infiltrates. The rest of lung parenchyma is clear. Cardiomediastinal silhouette is within normal limits in size. No significant pulmonary vascular congestion.. Osseous structures: unremarkable IMPRESSION: 1. Minimal atelectasis or infiltrates at bilateral bases. ACT 112: Negative or not required by law. The above report was generated using voice recognition software. It may contain grammatical, syntax or spelling errors. Electronically signed by: Rashmi Wilson DO 03/12/2021 6:58 AM Abdomen/Pelvis CT 03/11/21 20:18 CT SCAN OF THE ABDOMEN AND PELVIS WITHOUT CONTRAST CLINICAL HISTORY: Post kidney and pancreas transplant with fever. COMPARISON STUDY: 10/08/2019 TECHNIQUE: CT scan of the abdomen and pelvis was performed from the lung bases to the proximal femurs. Images are reviewed in the axial, sagittal, and coronal planes. IV contrast was not administered for this examination. A dose lowering technique was utilized adhering to the principles of ALARA. CT DOSE: 276.63 mGy.cm FINDINGS: Lower chest: The heart is normal in size and configuration, without pericardial effusion. The lung bases and pleural spaces are clear. Liver: The unenhanced liver is normal in size, contour, and attenuation. There is no intrahepatic biliary ductal dilatation. Gallbladder: Unremarkable. Spleen: Normal in size and attenuation. Pancreas: No pancreatic masses are visualized on this noncontrast study Adrenal glands: Unremarkable. Kidneys: There are bilateral nonobstructing renal calculi. There are bilateral iliac fossa structures, likely representing renal transplants. There is soft tissue edema surrounding the right iliac fossa lesion. This may indicate acute inflammation. Ultrasound might be considered in follow-up. Correlation with clinical history recommended. There is a left-sided renal transplant nephroureteral stent. Bowel: There are no transition zones to indicate bowel obstruction. The appendix is not visualized. There is no acute diverticulitis. Peritoneum: There is no free air. There is trace pelvic fluid. Vasculature: The abdominal aorta is normal in course and caliber. Adenopathy: None. Pelvic viscera: There is mild bladder wall thickening. Skeletal structures: No destructive osseous lesions are seen. IMPRESSION: 1. Significantly limited study from a technical standpoint secondary to the lack of intravenous and orally administered contrast and the extensive postsurgical changes 2. No evidence of bowel obstruction. No evidence of free air 3. Bilateral nonobstructing renal calculi within the [place] kidneys 4. Bilateral iliac fossa structures, likely representing renal transplants. There is edema surrounding both suspected transplants more pronounced on the right. This could indicate acute inflammation. Correlation with ultrasound could be obtained as deemed clinically appropriate 5. Mild bladder wall thickening ACT 112: Negative or not required by law. Electronically signed by: Edson Sheffield M.D. 03/11/2021 9:03 PM Hospital Course (1) Acute UTI: Zosyn with transition to cefdinir-transferred to transplant center. (2) Immunosuppressed status: Tacrolimus and CellCept-renal consultation to monitor progress in transplanted patient. Held Bactrim while on Zosyn. Cont valgancyclovir--non-formulary so brought in from home. (3) Pancreas transplanted: (4) Kidney transplanted: (5) Hypertensive urgency: Hydralazine PRN given during hospital stay. NSS was stopped. BP improved as he got better clinically with antibiotics. (6) Anemia: recent transplant surgery, improving. multifactorial. No indication for transfusion this admission. Current Inpatient Medications Acetaminophen (Acetaminophen 325 Mg Tab) 650 mg PO Q4H PRN PRN Reason: Pain or Fever Stop: 04/11/21 06:49 Aspirin (Aspirin 325 Mg Ectab) 325 mg PO QAM [facility] Stop: 04/11/21 08:59 Last Admin: 03/12/21 08:20 Dose: 325 mg Documented by: Atorvastatin Calcium (Atorvastatin 40 Mg Tab) 40 mg PO HS [facility] Stop: 04/11/21 20:59 Sodium Chloride (Nss 1000ml) 1,000 mls @ 75 mls/hr IV .[id number] [facility] Stop: 04/11/21 06:49 Last Admin: 03/12/21 08:27 Dose: 75 mls/hr Documented by: Piperacillin Sod/Tazobactam (Sod 3.375 gm/ Dextrose) 115 mls @ 28.75 mls/hr IV Q8H [facility]; Protocol Stop: 03/22/21 13:59 Miscellaneous (*Valganciclovir [Valcyte]*Order Awaiting Action) 1 ea N/A QS [facility] Stop: 04/11/21 07:59 Last Admin: 03/12/21 10:01 Dose: Not Given Documented by: Miscellaneous Information (Piperacill/Tazobac Consult Active) 1 ea N/A UD PRN PRN Reason: Consult Stop: 04/11/21 06:49 Mycophenolate Sodium (Mycophenolate Sodium 180 Mg Tab) 540 mg PO BID [facility] Stop: 04/11/21 08:59 Last Admin: 03/12/21 08:20 Dose: 540 mg Documented by: Nitroglycerin (Nitroglycerin Sl 0.4 Mg/Tab Tab) 0.4 mg SL UD PRN PRN Reason: Chest Pain Stop: 04/11/21 06:49 Ondansetron HCl (Ondansetron Inj 2 Mg/Ml 2 Ml Vial) 4 mg IV Q6H PRN PRN Reason: Nausea Stop: 04/11/21 06:49 Pantoprazole Sodium (Pantoprazole 40 Mg Tab) 40 mg PO QAM [facility] Stop: 04/11/21 08:59 Last Admin: 03/12/21 08:20 Dose: 40 mg Documented by: Patiromer (Patiromer Calcium Sorbitex 8.4 Gm Pack) 16.8 gm PO DAILY@1400 [facility] Stop: 04/11/21 13:59 Sodium Bicarbonate (Sodium Bicarbonate 650 Mg Tab) 1,950 mg PO BID [facility] Stop: 04/11/21 08:59 Last Admin: 03/12/21 10:13 Dose: 1,950 mg Documented by: Tacrolimus (Tacrolimus 1 Mg Cap) 3 mg PO Q12 [facility] Stop: 04/11/21 08:59 Last Admin: 03/12/21 08:20 Dose: 3 mg Documented by: Tamsulosin HCl (Tamsulosin Hcl 0.4 Mg Cap) 0.4 mg PO HS [facility] Stop: 04/11/21 20:59 Trimethoprim/Sulfamethoxazole (Sulfa/Trimeth 400/80mg Tab) 1 tab PO MoWeFr@0900 [facility] Stop: 04/11/21 08:59 Last Admin: 03/12/21 08:20 Dose: 1 tab Documented by: Total Time Total Time Spent Total Time Spent (In Minutes): 60 Discharge Plan Discharge Items Patient Disposition: Transfer Acute Care Hospital Reason For Visit: UTI Discharge Diagnosis: UTI inflammation at recent kidney and pancreas transplant region on ct scan Condition on Discharge: Fair Activity: As commented below Activity Comment: as tolerated Lifting: None Non-emergency contact: Primary Care Provider Call non-emergency contact if: you have any medication questions and you have a fever Follow-up/Referrals: Ciro Singh MD [Primary Care Provider] - Diet: Heart Healthy Addtl Attending Provider Instructions: Patient getting transferred to [facility] transplant center Pending Studies at Discharge: No Stand-Alone Forms: [facility] Skilled Items Patient informed of condition?: Yes DNR: No Discharge Level of Care: Other Communicable Disease: No Discharge Prognosis: Stable Lines: Peripheral IV Urinary Catheter: No Medications and DC Order Prescriptions: Continued atorvastatin [Lipitor] 40 mg tablet 40 mg PO HS RF: 0 valganciclovir [Valcyte] 450 mg Tablet 450 mg PO QAM RF: 0 acetaminophen [Tylenol] 325 mg Tablet 325 mg PO Q6H PRN (Reason: Pain) RF: 0 aspirin 325 mg Tablet 325 mg PO QAM RF: 0 sulfamethoxazole-trimethoprim [Bactrim] 400-80 mg tablet 1 tab PO [id number] RF: 0 ondansetron HCl 4 mg Tablet 4 mg PO Q8H PRN (Reason: nausea/vomiting) RF: 0 tamsulosin [Flomax] 0.4 mg capsule 0.4 mg PO HS RF: 0 sodium bicarbonate 650 mg Tablet 1,900 mg PO BID RF: 0 pantoprazole [Protonix] 40 mg tablet,delayed release (DR/EC) 40 mg PO QAM RF: 0 tacrolimus [Prograf] 1 mg capsule 3 mg PO Q12 RF: 0 mycophenolate sodium [Myfortic] 180 mg tablet,delayed release (DR/EC) 540 mg PO BID RF: 0 Veltassa 16.8 gram powder in packet 16.8 g PO DAILY@1400 RF: 0 Discharge Orders: Discharge Order (Routine); Ordered 03/12/21 Ordered By: Crescencio Carter Admission Data Admit Date/Time: 03/12/21 05:23 Attending Provider: Alisha Palomino Admit Provider: Crescencio Carter Primary Care Provider: Ciro Singh Other Providers: Crescencio Carter ; Des Marcano Other Interventions: Discharge Summary Assessment (RN) Last Done: 03/14/21 08:28
[2021-03-12] MEDS: PIPERACILLIN/TAZOBACTAM 3.375 GM in DEXTROSE 5% 100 ML IV SCH ×2 (14:14→22:53)
[2021-03-12] MEDS: PATIROMER CALCIUM SORBITEX 8.4 GM PACK PO SCH (14:15)
--- NOTE | 2021-03-12 16:17 | Electrocardiogram Report ---
Test Reason : Blood Pressure : / mmHG Vent. Rate : 093 BPM Atrial Rate : 093 BPM P-R Int : 128 ms QRS Dur : 092 ms QT Int : 360 ms P-R-T Axes : 043 015 061 degrees QTc Int : 447 ms Poor data quality, interpretation may be adversely affected Normal sinus rhythm Normal ECG When compared with ECG of 11-JUN-2020 22:30, QT has shortened Confirmed by Samuel Agosto ([id number]) on 03/12/2021 4:17:17 PM Referred By: REFERRED SELF Confirmed By:Samuel Agosot
[2021-03-12] MEDS: ACETAMINOPHEN 325 MG TAB PO PRN (19:36)
[2021-03-12] MEDS ORDERED: amLODIPine BESYLATE 5 MG TAB PO ONE (20:22)
[2021-03-12] MEDS ORDERED: TAMSULOSIN HCL 0.4 MG CAP PO SCH (21:00)
[2021-03-12] MEDS ORDERED: ATORVASTATIN 40 MG TAB PO SCH (21:00)
[2021-03-12] MEDS ORDERED: hydrALAZINE HCL 20 MG/ML VIAL IV STA (21:04)
--- NOTE | 2021-03-12 22:09 | Hospitalist Progress Note ---
Date of Service March 12, 2021 Assessment & Plan (1) Acute UTI: Plan: Cont Zosyn pending culture results and clinical improvement, cont full dose tacrolimus and mycophenolate for now. (2) Immunosuppressed status: Plan: Tacrolimus and CellCept-renal consultation to monitor progress in transplanted patient. Hold Bactrim while on Zosyn. Cont valgancyclovir--non-formulary so bringing in from home. (3) Pancreas transplanted: (4) Kidney transplanted: (5) Hypertensive urgency: Plan: Hydralazine PRN for now, cont to trend BP and treat underlying infection and pain. NSS has been stopped. Defer more permanent blood pressure management to nephrology. (6) Anemia: Plan: recent transplant surgery, improving. multifactorial. (7) DVT prophylaxis: Plan: heparin/SCDs Full Code Dispo-transferring to [facility] transplant center when bed available. Alisha Palomino DO [facility] Hospitalist Admission and Anticipated Discharge Date Admission Date: March 12, 2021 Subjective 35 yo immunosuppressed renal pancreatic transplant patient one month ago presented with acute UTI. He is doing well generally, reports the dysuria has resolved and he is frequently urinating. We discussed that the IVF may be contributing to that but he preferred to keep them on board for now. He is tolerating PO. Denies flank pain or pain in his transplanted kidney site. +fevers Review of Systems Review of Systems: All systems were reviewed and negative except as indicated in HPI above. Physical Exam Physical Exam: CONSTITUTIONAL: WNWD, vitals as above, generally well- appearing EYES: normal conjunctivae, no scleral icterus ENT: external ear and nose normal, MMM RESPIRATORY: clear to auscultation bilaterally, no crackles, rales or wheezes, normal respiratory effort CARDIOVASCULAR: regular rate and rhythm, S1 and 2 heard without murmurs, gallops or rubs, no JVD, no peripheral edema GASTROINTESTINAL: soft, nontender except around incision sites which are well healed, nondistended, no CVA tenderness. MUSCULOSKELETAL: strength 5/5 throughout, head is normocephalic and atraumatic SKIN: warm and dry NEUROLOGIC: CN 2-12 grossly intact, normal cognition, normal speech, no tremor PSYCHIATRIC: alert cooperative and oriented to person, place and time. Euthymic mood, makes good eye contact, language grossly intact, recent and remote memory grossly intact. Results & Data Results & Data ([facility]) Vital Signs (Past 12 Hours) Vital Signs Temp Pulse Pulse Resp BP BP Pulse Ox 03/12/21 19:40 208/82 H 03/12/21 19:22 39.1 C H 87 16 207/89 H 98 03/12/21 15:12 37.3 C 76 18 143/82 H 98 03/12/21 15:00 72 03/12/21 11:23 37.7 C H 76 16 169/85 H 99 Laboratory Results Short CBC 03/12/21 Range/Units 06:59 WBC 8.52 (4.8-10.8) K/uL Hgb 10.3 L (14.0-18.0) g/dL Hct 30.5 L (42-52) % Plt Count 237 (130-400) K/uL BMP 03/12/21 06:59 Sodium 136 Potassium 4.9 Chloride 108 H Carbon Dioxide 22 BUN 21 H Creatinine 1.70 H Glucose 82 Calcium 9.0 Medications Administered Current Inpatient Medications Acetaminophen (Acetaminophen 325 Mg Tab) 650 mg PO Q4H PRN PRN Reason: Pain or Fever Stop: 04/11/21 06:49 Last Admin: 03/12/21 19:36 Dose: 650 mg Documented by: Aspirin (Aspirin 325 Mg Ectab) 325 mg PO QAM [facility] Stop: 04/11/21 08:59 Last Admin: 03/12/21 08:20 Dose: 325 mg Documented by: Atorvastatin Calcium (Atorvastatin 40 Mg Tab) 40 mg PO HS [facility] Stop: 04/11/21 20:59 Piperacillin Sod/Tazobactam (Sod 3.375 gm/ Dextrose) 115 mls @ 28.75 mls/hr IV Q8H [facility]; Protocol Stop: 03/22/21 13:59 Last Infusion: 03/12/21 18:50 Dose: Infused Documented by: Miscellaneous (*Valganciclovir [Valcyte]*Order Awaiting Action) 1 ea N/A QS [facility] Stop: 04/11/21 07:59 Last Admin: 03/12/21 17:11 Dose: Not Given Documented by: Miscellaneous Information (Piperacill/Tazobac Consult Active) 1 ea N/A UD PRN PRN Reason: Consult Stop: 04/11/21 06:49 Mycophenolate Sodium (Mycophenolate Sodium 180 Mg Tab) 540 mg PO BID [facility] Stop: 04/11/21 08:59 Last Admin: 03/12/21 20:51 Dose: 540 mg Documented by: Nitroglycerin (Nitroglycerin Sl 0.4 Mg/Tab Tab) 0.4 mg SL UD PRN PRN Reason: Chest Pain Stop: 04/11/21 06:49 Ondansetron HCl (Ondansetron Inj 2 Mg/Ml 2 Ml Vial) 4 mg IV Q6H PRN PRN Reason: Nausea Stop: 04/11/21 06:49 Pantoprazole Sodium (Pantoprazole 40 Mg Tab) 40 mg PO QAM [facility] Stop: 04/11/21 08:59 Last Admin: 03/12/21 08:20 Dose: 40 mg Documented by: Patiromer (Patiromer Calcium Sorbitex 8.4 Gm Pack) 16.8 gm PO DAILY@1400 [facility] Stop: 04/11/21 13:59 Last Admin: 03/12/21 14:15 Dose: 16.8 gm Documented by: Sodium Bicarbonate (Sodium Bicarbonate 650 Mg Tab) 1,950 mg PO BID [facility] Stop: 04/11/21 08:59 Last Admin: 03/12/21 10:13 Dose: 1,950 mg Documented by: Tacrolimus (Tacrolimus 1 Mg Cap) 3 mg PO Q12 [facility] Stop: 04/11/21 08:59 Last Admin: 03/12/21 20:52 Dose: 3 mg Documented by: Tamsulosin HCl (Tamsulosin Hcl 0.4 Mg Cap) 0.4 mg PO HS [facility] Stop: 04/11/21 20:59 Last Admin: 03/12/21 20:52 Dose: 0.4 mg Documented by: Trimethoprim/Sulfamethoxazole (Sulfa/Trimeth 400/80mg Tab) 1 tab PO MoWeFr@0900 [facility] Stop: 04/11/21 08:59 Last Admin: 03/12/21 08:20 Dose: 1 tab Documented by:
[2021-03-12] MEDS ORDERED: Nursing to Pharmacy Communication SCH (22:15)
[2021-03-13] MEDS ORDERED: hydrALAZINE HCL 20 MG/ML VIAL IV PRN (00:45)
[2021-03-13] MEDS: PIPERACILLIN/TAZOBACTAM 3.375 GM in DEXTROSE 5% 100 ML IV SCH ×3 (05:53→22:21)
[2021-03-13] MEDS: ACETAMINOPHEN 325 MG TAB PO PRN ×2 (06:02→19:51)
[2021-03-13 07:01] LABS: Basophils # (auto) 0.12 K/uL (0-0.2); Basophils % (auto) 1.6 %; Eosinophils # (auto) 0.29 K/uL (0-0.5); Eosinophils % (auto) 3.9 %; Hematocrit (blood only) 30.6 % (42-52); Hemoglobin 10.4 g/dL (14.0-18.0); Immature Granulocytes # (auto) 0.02 K/uL (0.00-0.02); Immature Granulocytes % (auto) 0.3 %; Lymphocytes # (auto) 0.56 K/uL (1.2-3.4); Lymphocytes % (auto) 7.5 %; Mean Corpuscular Hemoglobin 31.7 pg (25-34); Mean Corpuscular Volume 93.3 fL (80-100); Mean Platelet Volume 10.1 fL (7.4-10.4); Monocytes # (auto) 0.52 K/uL (0.11-0.59); Monocytes % (auto) 6.9 %; Neutrophils # (auto) 5.99 K/uL (1.4-6.5); Neutrophils % (auto) 79.8 %; Platelet Count 244 K/uL (130-400); RDW Coefficient of Variation 16.1 % (11.5-14.5); RDW Standard Deviation 56.2 fL (36.4-46.3); Red Blood Count 3.28 M/uL (4.7-6.1)
[2021-03-13 08:15] LABS: BUN Creatinine Ratio 9.6 (10-20); Calcium 9.4 mg/dl (8.5-10.1); Creatinine Clr Calc Pharmacy 48.4 ml/min; Est GFR (African American) 53.5 ml/min; Est GFR (Non-African American) 46.1 ml/min; Potassium 4.7 mmol/L (3.5-5.1)
[2021-03-13] MEDS: MYCOPHENOLATE SODIUM 180 MG TAB PO SCH ×2 (08:57→19:52)
[2021-03-13] MEDS: TACROLIMUS 1 MG CAP PO SCH ×2 (08:57→19:53)
[2021-03-13] MEDS: ASPIRIN 325 MG ECTAB PO SCH (08:59)
[2021-03-13] MEDS: PANTOprazole 40 MG TAB PO SCH (08:59)
[2021-03-13] MEDS ORDERED: ATORVASTATIN 40 MG TAB PO SCH (09:00)
[2021-03-13] MEDS: SODIUM BICARBONATE 650 MG TAB PO SCH ×2 (11:42→22:22)
--- NOTE | 2021-03-13 11:51 | Hospitalist Progress Note ---
Date of Service March 13, 2021 Assessment & Plan (1) Acute UTI: Plan: Cont Zosyn-will discuss antibiotic de-escalation with nephrology. Cont full dose tacrolimus and mycophenolate for now. (2) Immunosuppressed status: Plan: Tacrolimus and CellCept-renal consultation to monitor progress in transplanted patient. Hold Bactrim while on Zosyn. Cont valgancyclovir--non-formulary so bringing in from home. (3) Pancreas transplanted: (4) Kidney transplanted: (5) Hypertensive urgency: Plan: Hydralazine PRN for now, cont to trend BP and treat underlying infection and pain. NSS has been stopped. Defer more permanent blood pressure management to nephrology. (6) Anemia: Plan: recent transplant surgery, improving. multifactorial. (7) DVT prophylaxis: Plan: heparin/SCDs Full Code Dispo-transferring to [facility] transplant center when bed available. I did reach out to his transplant team and left a message to give them a daily update. Left them a message for a call back. Alisha Palomino DO [facility] Hospitalist Admission and Anticipated Discharge Date Admission Date: March 12, 2021 Subjective 35 yo immunosuppressed renal pancreatic transplant patient one month ago presented with acute UTI. reports his fever broke this morning and he is feeling better today, however, he still has a headache and did feel intermittent dysequilibrium when walking to the bathroom earlier this morning. This was 1 hr after his systolic BP went from 180 to 140 as a result of hydralazine 7.5mg IV x one dose. There is no resting dizziness. He is tolerating PO. Continues to receive the Zosyn IV. Review of Systems Constitutional: All systems were reviewed and negative except as indicated in HPI above. Physical Exam Physical Exam: CONSTITUTIONAL: WNWD, vitals as above, generally well- appearing EYES: normal conjunctivae, no scleral icterus ENT: external ear and nose normal, MMM RESPIRATORY: clear to auscultation bilaterally, no crackles, rales or wheezes, normal respiratory effort CARDIOVASCULAR: regular rate and rhythm, S1 and 2 heard without murmurs, gallops or rubs, no JVD, no peripheral edema GASTROINTESTINAL: soft, nontender except around incision sites which are well healed, nondistended, no CVA tenderness. MUSCULOSKELETAL: strength 5/5 throughout, head is normocephalic and atraumatic SKIN: warm and dry NEUROLOGIC: CN 2-12 grossly intact, normal cognition, normal speech, no tremor PSYCHIATRIC: alert cooperative and oriented to person, place and time. Euthymic mood, makes good eye contact, language grossly intact, recent and remote memory grossly intact. Results & Data Results & Data ([facility]) Vital Signs (Past 12 Hours) Vital Signs Temp Pulse Pulse Resp BP BP Pulse Ox 03/13/21 10:44 78 03/13/21 08:04 37.9 C H 88 18 147/80 H 97 03/13/21 05:58 38.4 C H 74 18 181/87 H 98 03/13/21 03:49 37.4 C 82 16 161/86 H 98 Laboratory Results Short CBC 03/13/21 Range/Units 06:32 WBC 7.50 (4.8-10.8) K/uL Hgb 10.4 L (14.0-18.0) g/dL Hct 30.6 L (42-52) % Plt Count 244 (130-400) K/uL BMP 03/13/21 06:32 Sodium 134 L Potassium 4.7 Chloride 106 Carbon Dioxide 22 BUN 18 Creatinine 1.84 H Glucose 93 Calcium 9.4 Medications Administered Current Inpatient Medications Acetaminophen (Acetaminophen 325 Mg Tab) 650 mg PO Q4H PRN PRN Reason: Pain or Fever Stop: 04/11/21 06:49 Last Admin: 03/13/21 06:02 Dose: 650 mg Documented by: Aspirin (Aspirin 325 Mg Ectab) 325 mg PO DAILY@0800 [facility] Stop: 04/13/21 07:59 Atorvastatin Calcium (Atorvastatin 40 Mg Tab) 40 mg PO DAILY@0800 [facility] Stop: 04/13/21 07:59 Hydralazine HCl (Hydralazine Hcl 20 Mg/Ml Vial) 7.5 mg IV Q6H PRN PRN Reason: Hypertension Stop: 04/12/21 00:44 Last Admin: 03/13/21 06:02 Dose: 7.5 mg Documented by: Piperacillin Sod/Tazobactam (Sod 3.375 gm/ Dextrose) 115 mls @ 28.75 mls/hr IV Q8H [facility]; Protocol Stop: 03/22/21 13:59 Last Infusion: 03/13/21 10:53 Dose: Infused Documented by: Miscellaneous (*Valganciclovir [Valcyte]*Order Awaiting Action) 1 ea N/A QS [facility] Stop: 04/11/21 07:59 Last Admin: 03/13/21 08:57 Dose: Not Given Documented by: Miscellaneous Information (Piperacill/Tazobac Consult Active) 1 ea N/A UD PRN PRN Reason: Consult Stop: 04/11/21 06:49 Mycophenolate Sodium (Mycophenolate Sodium 180 Mg Tab) 540 mg PO Q12H [facility] Stop: 04/12/21 07:59 Last Admin: 03/13/21 08:57 Dose: 540 mg Documented by: Nitroglycerin (Nitroglycerin Sl 0.4 Mg/Tab Tab) 0.4 mg SL UD PRN PRN Reason: Chest Pain Stop: 04/11/21 06:49 Ondansetron HCl (Ondansetron Inj 2 Mg/Ml 2 Ml Vial) 4 mg IV Q6H PRN PRN Reason: Nausea Stop: 04/11/21 06:49 Pantoprazole Sodium (Pantoprazole 40 Mg Tab) 40 mg PO DAILY@0800 [facility] Stop: 04/13/21 07:59 Patiromer (Patiromer Calcium Sorbitex 8.4 Gm Pack) 16.8 gm PO DAILY@1400 [facility] Stop: 04/11/21 13:59 Last Admin: 03/12/21 14:15 Dose: 16.8 gm Documented by: Sodium Bicarbonate (Sodium Bicarbonate 650 Mg Tab) 1,950 mg PO Q12H [facility] Stop: 04/12/21 09:59 Last Admin: 03/13/21 11:42 Dose: 1,950 mg Documented by: Tacrolimus (Tacrolimus 1 Mg Cap) 3 mg PO Q12H [facility] Stop: 04/12/21 07:59 Last Admin: 03/13/21 08:57 Dose: 3 mg Documented by: Tamsulosin HCl (Tamsulosin Hcl 0.4 Mg Cap) 0.4 mg PO 2000 [facility] Stop: 04/12/21 19:59 Trimethoprim/Sulfamethoxazole (Sulfa/Trimeth 400/80mg Tab) 1 tab PO MoWeFr@0900 [facility] Stop: 04/11/21 08:59 Last Admin: 03/12/21 08:20 Dose: 1 tab Documented by:
[2021-03-13] MEDS: PATIROMER CALCIUM SORBITEX 8.4 GM PACK PO SCH (14:52)
--- NOTE | 2021-03-13 15:29 | Consultation Report ---
NEPHROLOGY CONSULTATION DATE OF CONSULTATION: 03/13/2021 REASON FOR CONSULTATION: Renal transplant patient, admitted with UTI symptoms. HISTORY OF PRESENT ILLNESS: The patient is a 35-year-old male with type 1 diabetes, end-stage renal disease, who was on hemodialysis and had kidney and pancreatic transplant about 1 month ago at [facility]. He presented to the hospital because of fever, chills, urinary complaints. CT of the abdomen and pelvis was done in the Emergency Department, which shows possible pyelonephritis in the transplanted kidney. The patient is waiting for transfer to [facility], but there are no beds available and he is waiting for the bed to open up. He is already feeling better than when he presented. He is getting IV Zosyn with IV fluids. Blood pressure was running slightly on the higher side, but more recent is normal. He is on the same transplant regimen as he was taking before, which is CellCept 540 b.i.d. as well as Prograf 3 mg twice daily. He is also on Valcyte and Bactrim for prophylaxis. He denies having any nausea, vomiting, chest pain, shortness of breath, orthopnea, PND, or lower extremity edema at this time. Creatinine was 1.83 on admission yesterday, and this morning, it is still about the same at 1.84, sodium was 134, potassium 4.7. PAST MEDICAL AND SURGICAL HISTORY: Includes type 1 diabetes, ESRD, on hemodialysis, status post kidney and pancreatic transplant about 1 month ago, migraine, former smoker, endoscopy, laparoscopic insertion of peritoneal catheter, parotid gland removal. MEDICATIONS: At home was reviewed in detail. FAMILY HISTORY: Significant for grandparents with diabetes, but no renal disease or dialysis in the family. SOCIAL HISTORY: Single, former smoker, smoked 1 pack a day for 23 years, quit in 2017. Stopped drinking alcohol. No drug use. REVIEW OF SYSTEMS: As detailed in HPI. Unless stated otherwise, 12 systems reviewed and negative. The positive review of systems included fever with chills and some pain over the transplanted kidney area, otherwise normal. PHYSICAL EXAMINATION: GENERAL: Young white male who is not in any overt respiratory distress. He is awake, alert, oriented x3. VITAL SIGNS: Blood pressure is 131/86, pulse rate 77, temperature 37.1, and 99% on room air. HEENT: Mucous membrane is moist. NECK: Supple. No jugular venous distention. CHEST: Bilaterally clear to auscultation. CARDIOVASCULAR: S1, S2, regular. ABDOMEN: Soft, nontender. Very mild tenderness in the transplanted kidney area. EXTREMITIES: Show no edema. SKIN: Shows no rashes. LABORATORY TEST: Reviewed in detail. Creatinine is 1.84 this morning. Hemoglobin is 10.4, WBC count is 7.5. Urine test done at the time of admission did show protein as well as blood with lots of bacteria and active urine sediment. Urine culture showed Klebsiella pneumoniae. Blood culture so far has been negative. Klebsiella is sensitive to pretty much everything. CT of the abdomen and pelvis was also done and shows bilateral nonobstructing renal calculi within the [place] kidneys. There was some surrounding edema around the transplanted kidney. There is also a mention of left-sided renal transplant nephroureteral stent. Chest x-ray was unremarkable. ASSESSMENT AND PLAN: A 35-year-old male with type 1 diabetes, status post kidney and pancreatic transplant just about a month ago at [facility], now admitted with urinary tract infection and associated symptoms. 1. Acute renal failure: Creatinine is 1.84 now simliar to recent BMP showing creat of 1.8 and 1.9. after the transplant. Continue IV fluid for the time being and in any case, he is getting transferred to [facility] and no further workup is needed from renal standpoint. He has urinary tract infection with Klebsiella growing in the urine, but no evidence of sepsis or bacteremia. His last outpatient creatinine done on 03/10 was 1.88 and 1.96 a week prior. So, based on the comparison of outpatient laboratories and the inpatient laboratories at this time, it does not appear he has acute renal failure. 2. Renal transplant status: He is not septic, so we will continue all the transplant medications as is being done. I would like to restart the Bactrim as this is done for pneumocystis pneumonia prophylaxis, which is not covered by Zosyn. Job ID: [id number] [facility]
[2021-03-13] MEDS ORDERED: TAMSULOSIN HCL 0.4 MG CAP PO SCH (20:00)
[2021-03-14] MEDS: PIPERACILLIN/TAZOBACTAM 3.375 GM in DEXTROSE 5% 100 ML IV SCH (06:04)
[2021-03-14] MEDS: MYCOPHENOLATE SODIUM 180 MG TAB PO SCH (07:46)
[2021-03-14] MEDS: TACROLIMUS 1 MG CAP PO SCH (07:46)
[2021-03-14] MEDS: SODIUM BICARBONATE 650 MG TAB PO SCH (07:51)
[2021-03-14] MEDS ORDERED: ATORVASTATIN 40 MG TAB PO SCH (08:00)
[2021-03-14] MEDS ORDERED: PANTOprazole 40 MG TAB PO SCH (08:00)
[2021-03-14] MEDS ORDERED: ASPIRIN 325 MG ECTAB PO SCH (08:00)
[2021-03-14] MEDS ORDERED: CEFDINIR 300 MG CAP PO SCH (09:00)
[2021-03-14] MEDS ORDERED: VALGANCICLOVIR 450 MG PO SCH (09:00)
== END 2021-03-14 08:28 | disposition short-term general hospital (02) | DRG 689 ==
LOC: ED 19:52 → 2N 03-12 05:00

== ENCOUNTER 2021-08-01 15:00 | Inpatient (IN) ==
[2021-08-01 15:54] LABS: Hematocrit (blood only) 47.6 % (42-52); Hemoglobin 15.7 g/dL (14.0-18.0); Mean Corpuscular Hemoglobin 32.6 pg (25-34); Mean Platelet Volume 10.2 fL (7.4-10.4); Platelet Count 238 K/uL (130-400); RDW Coefficient of Variation 13.8 % (11.5-14.5); Red Blood Count 4.81 M/uL (4.7-6.1); White Blood Count 3.48 K/uL (4.8-10.8)
[2021-08-01 16:07] LABS: INR 1.1 (0.9-1.1); Partial Thromboplastin Ratio 1.2; Partial Thromboplastin Time 32.3 Seconds (21.0-31.0); Prothrombin Time 11.2 Seconds (9.0-12.0)
--- NOTE | 2021-08-01 16:10 | XRay Report ---
XR chest 1V portable HISTORY: Shortness of breath. COMPARISON: Chest 06/11/2021. FINDINGS: The lungs are clear. Cardiac silhouette is normal in size. No pleural effusions. No pneumot horax. IMPRESSION: No acute process. ACT 112: Negative or not required by law. Electronically signed by: Jim Arellano M.D. 08/01/2021 4:09 PM
[2021-08-01] MEDS ORDERED: SODIUM CHLORIDE 0.9% 1000ML 1,000 ML IV ONE (16:15)
[2021-08-01 16:16] LABS: Alanine Aminotransferase 26 (12-78); Albumin Level 3.9 gm/dl (3.4-5.0); Aspartate Aminotransferase 19 U/L (15-37); BUN Creatinine Ratio 15.2 (10-20); Blood Urea Nitrogen 26 mg/dl (7-18); Calcium 10.2 mg/dl (8.5-10.1); Carbon Dioxide 24 mmol/L (21-32); Chloride 105 mmol/L (98-107); Creatinine Clr Calc Pharmacy 48.3 ml/min; Est GFR (African American) 58.4 ml/min; Est GFR (Non-African American) 50.4 ml/min; Glucose 87 mg/dl (70-99); Potassium 5.2 mmol/L (3.5-5.1); Sodium 135 mmol/L (136-145)
[2021-08-01] MEDS ORDERED: cefTRIAXone SODIUM 1,000 MG/50 ML BAG IV STA (16:16)
--- NOTE | 2021-08-01 16:18 | Electrocardiogram Report ---
Test Reason : Blood Pressure : / mmHG Vent. Rate : 098 BPM Atrial Rate : 098 BPM P-R Int : 116 ms QRS Dur : 086 ms QT Int : 366 ms P-R-T Axes : 057 048 071 degrees QTc Int : 467 ms Normal sinus rhythm Normal ECG When compared with ECG of 13-JUN-2021 17:29, No significant change was found Confirmed by Samuel Agosto ([id number]) on 08/01/2021 4:18:00 PM Referred By: Confirmed By:Samuel Agosto
[2021-08-01 16:21] LABS: Albumin Globulin Ratio 0.8 (0.9-2); Alkaline Phosphatase 140 U/L (45-117); Bilirubin,Total 0.7 mg/dl (0.2-1); Globulin 4.8 gm/dl (2.5-4.0); Total Protein 8.7 gm/dl (6.4-8.2); Troponin I < 0.015 ng/ml (0-0.045)
[2021-08-01 16:30] LABS: ALC (manual) 0.31 K/uL (1.2-3.4); ANC (manual) 2.71 K/uL (1.4-6.5); Lymphocytes # (manual) 0.31 K/uL (1.2-3.4); Monocytes # (manual) 0.45 K/uL (0.11-0.59); Neutrophils # (manual) 2.71 K/uL (1.4-6.5)
[2021-08-01 16:35] LABS: Appearance Urine Clear (Clear); Bacteria Urine Automated 4+ (Negative); Bilirubin Urine Negative (Negative); Blood Urine Negative (Negative); Color Urine Yellow; Epithelial Cell Urine Auto 0-5 /lpf (0-5); Glucose Urine UA Negative (Negative); Ketones Urine 1+ (Negative); Leukocyte Esterase Urine 1+ (Negative); Nitrite Urine Negative (Negative); Protein Urine 1+ (Negative); RBC Urine Automated 0-4 /hpf (0-4); Urobilinogen Urine Negative (Negative); WBC Urine Automated >30 /hpf (0-5); pH Urine 5.5 (4.5-7.5)
--- NOTE | 2021-08-01 17:26 | Emergency Department Note ---
Impression & Plan Acute UTI, COVID-19, Acute hyperkalemia ED Provider Note NAME: SAVAGE KIDD AGE: 36 SEX: M : 1985 ARRIVES VIA: Walk-In INFORMANT: Patient ED PROVIDER(S): Sean Byers DO CHIEF COMPLAINT: Urinary symptoms and upper respiratory symptoms HPI: Patient is a 36-year-old male with a renal transplant performed this January as well as a pancreatic transplant who presents the ER for lower abdominal pain. He admits to dysuria, urgency, and frequency which has been present for the past 3 days. He admits to feeling hot and cold. He does have some cough and congestion as well as a postnasal drip and a sore throat. This started within the past 2 days. He takes Prograf, mycophenolate and intermittent Bactrim. He also takes valacyclovir. History of Klebsiella UTIs. ROS: See above HPI for pertinent positives & negatives. A total of 10 systems reviewed and were otherwise negative. PAST MEDICAL HISTORY:See Below PAST SURGICAL HISTORY:See Below FAMILY HISTORY:See Below SOCIAL HISTORY:See Below HOME MEDICATIONS:See Below ALLERGIES:See Below VITALS:See Below PHYSICAL EXAMINATION: GENERAL: Sitting up in bed, alert, well appearing, well nourished, no distress, non-toxic EYE EXAM: normal conjunctiva. PERRL and EOM's grossly intact. OROPHARYNX: no exudate, no erythema, lips, buccal mucosa, and tongue normal and mucous membranes are moist NECK: supple, no nuchal rigidity, no adenopathy, non-tender LUNGS: Clear to auscultation. Normal chest wall mechanics HEART: no murmurs, S1 normal and S2 normal ABDOMEN: abdomen soft, non-tender, with incision over the left lower belly and right lower belly. No tenderness over the kidney in the left normo-active bowel sounds, no masses, no rebound or guarding. UPPER EXTREMITIES: upper extremities are grossly normal. LOWER EXTREMITIES: No pitting edema. NEURO EXAM: Normal sensorium, cranial nerves II-XII grossly intact, normal speech, no gross weakness of arms, no gross weakness of legs. MEDICAL DECISION MAKING: Patient is a 36-year-old male with a renal and pancreatic transplant this February at [facility]. Who presents the ER for upper respiratory symptoms, feeling hot and cold as well as dysuria urgency or frequency. Previous UTIs. Labs show leukopenia 3.4 thousand. No significant anemia. BMP with creatinine of 1.7 consistent with previous. Potassium slightly elevated at 5.2. LFTs bilirubin was unremarkable. UA does show a clear UTI. Is Covid positive. Chest x-ray was clean. EKG was unremarkable. He was given IV Rocephin. Discussed with the transplant team who recommended admission due to the resistance of Klebsiella previously and the immune compromised state. Patient was updated bedside. Discussed with Helen from [facility] service. Triage Nursing notes reviewed. Limited review of prior medical records performed Vital Signs: reviewed and remarkable for HTN Differential diagnosis: Differential diagnosis: Etiologies such as viral syndrome, otitis, pharyngitis, pneumonia, influenza, meningitis, urinary tract infection, sepsis, bacteremia, as well as others were entertained. ER treatment provided: See below Diagnostics interpreted by me: ECG: Sinus rhythm rate of 98 Normal axis No PVCs QTC 467 Cardiac Monitoring: An order was placed for continuous cardiac monitoring. The monitor shows a rate of 80 with sinus rhythm. Laboratory studies: As stated above and show below. Imaging studies: Ultrasound was pending of the kidney. 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 Diabetic nephropathy Diabetic neuropathy Diabetic retinopathy Erectile dysfunction ESRD on dialysis Fatty liver History of peritoneal dialysis Hypertension Hypertension Nephrotic syndrome due to diabetes mellitus Neurogenic bladder Peritoneal dialysis catheter in place REMOVED 11/10/19 Prolonged QT interval TIA (transient ischemic attack) Type 1 diabetes mellitus Surgical History Kidney transplanted Pancreas transplanted S/P eye surgery Family History Mother Hypertension Grandfather (Maternal) Diabetes Grandmother (Maternal) Diabetes Grandmother (Paternal) Diabetes Social History Smoking Status: Never smoker Cigarettes Per Day: 10; Second Hand Exposure: No; Hx Alcohol Use: No Hx Substance Use: No Preferred Language: Portuguese Communication Ability: Effective Visual Impairment: Limited 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 Beliefs That Will Affect Care: None marital status: Single Current Living Situation: Alone current occupational status: employed Feels Safe at Home: Yes Assistive Devices: None Allergies Allergies Allergy/AdvReac Type Severity Reaction Status Date / Time NSAIDS (Non-Steroidal AdvReac RENAL Verified 08/01/21 19:17 Anti-Inflamma FAILURE Home Meds Home Medications Medication Instructions Recorded Confirmed acetaminophen 325 mg tablet 650 mg PO Q6H PRN 03/11/21 08/01/21 (Tylenol) aspirin 325 mg tablet 325 mg PO QAM 03/11/21 08/01/21 atorvastatin 40 mg tablet (Lipitor) 40 mg PO HS 03/11/21 08/01/21 mycophenolate sodium 180 mg 360 mg PO BID 03/11/21 08/01/21 tablet,delayed release (Myfortic) pantoprazole 40 mg tablet,delayed 40 mg PO QAM 03/11/21 08/01/21 release (Protonix) patiromer calcium sorbitex 16.8 8.4 g PO DAILY@1400 03/11/21 08/01/21 gram oral powder packet (Veltassa) sulfamethoxazole 400 1 tab PO Q OTHER DAY 03/11/21 08/01/21 mg-trimethoprim 80 mg tablet (Bactrim) tacrolimus 1 mg capsule, 3 mg PO AMPM 03/11/21 08/01/21 immediate-release (Prograf) tamsulosin 0.4 mg capsule (Flomax) 0.4 mg PO HS 03/11/21 08/01/21 valganciclovir 450 mg tablet 450 - 900 mg PO UD 03/11/21 08/01/21 (Valcyte) fludrocortisone 0.1 mg tablet 0.1 mg PO DAILY 06/13/21 08/01/21 hydralazine 10 mg tablet 10 mg PO HS 08/01/21 08/01/21 sodium zirconium cyclosilicate 5 5 g PO DAILY 08/01/21 08/01/21 gram oral powder packet (Lokelma) Results & Data (ED) Vital Signs Vital Signs - 24 hr 08/01/21 15:04 08/01/21 15:07 08/01/21 15:08 Temperature 36.6 C Temperature Source Temporal Artery Scan Pulse Rate 108 H Pulse Rate [Finger] Pulse Rhythm Regular Pulse Rhythm [Finger] Pulse Strength Normal Pulse Strength [Finger] Respiratory Rate 18 Respiratory Effort / Characteristics Non-Labored Spontaneous Respiratory Depth Normal Respiratory Pattern Regular Blood Pressure 105/67 Blood Pressure [Left Arm] Blood Pressure Mean 79 Blood Pressure Mean [Left Arm] Blood Pressure Position Sitting Blood Pressure Position [Left Arm] Pulse Oximetry 100 Oxygen Delivery Method Room Air Room Air Room Air Sepsis Recent Fever Within 48 Hours No Sepsis New/Unexplained Change in Mental Status N/A Sepsis Action Taken by Nursing No Action Required 08/01/21 16:31 08/01/21 16:32 08/01/21 16:33 Temperature Temperature Source Pulse Rate 84 Pulse Rate [Finger] 84 Pulse Rhythm Regular Pulse Rhythm [Finger] Regular Pulse Strength Pulse Strength [Finger] Normal Respiratory Rate 18 18 18 Respiratory Effort / Characteristics Non-Labored Non-Labored Respiratory Depth Normal Respiratory Pattern Blood Pressure Blood Pressure [Left Arm] 148/88 H Blood Pressure Mean Blood Pressure Mean [Left Arm] 108 Blood Pressure Position Blood Pressure Position [Left Arm] Sitting Pulse Oximetry 99 98 98 Oxygen Delivery Method Room Air Room Air Room Air Sepsis Recent Fever Within 48 Hours Sepsis New/Unexplained Change in Mental Status Sepsis Action Taken by Nursing 08/01/21 16:35 Temperature Temperature Source Pulse Rate Pulse Rate [Finger] Pulse Rhythm Pulse Rhythm [Finger] Pulse Strength Pulse Strength [Finger] Respiratory Rate Respiratory Effort / Characteristics Non-Labored Respiratory Depth Normal Respiratory Pattern Regular Blood Pressure Blood Pressure [Left Arm] Blood Pressure Mean Blood Pressure Mean [Left Arm] Blood Pressure Position Blood Pressure Position [Left Arm] Pulse Oximetry Oxygen Delivery Method Room Air Sepsis Recent Fever Within 48 Hours Sepsis New/Unexplained Change in Mental Status Sepsis Action Taken by Nursing Laboratory Data Result diagrams: 08/01/21 15:39 08/01/21 15:39 Lab Results 08/01/21 08/01/21 08/01/21 Range/Units 15:39 15:39 15:39 WBC 3.48 L (4.8-10.8) K/uL RBC 4.81 (4.7-6.1) M/uL Hgb 15.7 (14.0-18.0) g/dL Hct 47.6 (42-52) % MCV 99.0 (80-100) fL MCH 32.6 (25-34) pg MCHC 33.0 (32-36) g/dL RDW Std Deviation 50.0 H (36.4-46.3) fL RDW Coeff of Ralph 13.8 (11.5-14.5) % Plt Count 238 (130-400) K/uL MPV 10.2 (7.4-10.4) fL Neutrophils % (Manual) 78.0 % Band Neutrophils % 0.0 % Lymphocytes % (Manual) 9.0 % Prolymphocyte % 0.0 % Reactive Lymphs % (Man) 0.0 % Monocytes % (Manual) 13.0 % Eosinophils % (Manual) 0.0 % Basophils % (Manual) 0.0 % Metamyelocytes % (Man) 0.0 % Myelocytes % (Man) 0.0 % Promyelocytes % (Man) 0.0 % Blast Cells % (Manual) 0.0 % Plasma Cell % (Manual) 0.0 % Other Cells % 0.0 % Neutrophils # (Manual) 2.71 (1.4-6.5) K/uL Total Absolute Neuts 2.71 (1.4-6.5) K/uL Lymphocytes # (Manual) 0.31 L (1.2-3.4) K/uL Total Abs Lymphocytes 0.31 L (1.2-3.4) K/uL Monocytes # (Manual) 0.45 (0.11-0.59) K/uL Large Granular Lymphs 0.0 % PT 11.2 (9.0-12.0) Seconds INR 1.1 (0.9-1.1) APTT 32.3 H (21.0-31.0) Seconds PTT Ratio 1.2 Sodium 135 L (136-145) mmol/L Potassium 5.2 H (3.5-5.1) mmol/L Chloride 105 (98-107) mmol/L Carbon Dioxide 24 (21-32) mmol/L Anion Gap 7.0 (3-11) BUN 26 H (7-18) mg/dl Creatinine 1.70 H (0.6-1.4) mg/dl Est Cr Clr Drug Dosing 48.3 ml/min Est GFR ( Amer) 58.4 ml/min Est GFR (Non-Af Amer) 50.4 ml/min BUN/Creatinine Ratio 15.2 (10-20) Glucose 87 (70-99) mg/dl Calcium 10.2 H (8.5-10.1) mg/dl Magnesium 2.0 (1.8-2.4) mg/dl Total Bilirubin 0.7 (0.2-1) mg/dl AST 19 (15-37) U/L ALT 26 (12-78) Alkaline Phosphatase 140 H (45-117) U/L Troponin I < 0.015 (0-0.045) ng/ml Total Protein 8.7 H (6.4-8.2) gm/dl Albumin 3.9 (3.4-5.0) gm/dl Globulin 4.8 H (2.5-4.0) gm/dl Albumin/Globulin Ratio 0.8 L (0.9-2) Urine Color Urine Appearance (Clear) Urine pH (4.5-7.5) Ur Specific [place] (1.000-1.030) Urine Protein (Negative) Urine Glucose (UA) (Negative) Urine Ketones (Negative) Urine Blood (Negative) Urine Nitrite (Negative) Urine Bilirubin (Negative) Urine Urobilinogen (Negative) Ur Leukocyte Esterase (Negative) Urine WBC (Auto) (0-5) /hpf Urine RBC (Auto) (0-4) /hpf U Hyaline Cast (Auto) (0-5) /lpf U Epithel Cells (Auto) (0-5) /lpf Urine Bacteria (Auto) (Negative) SARS-CoV-2 (PCR) (Negative) Influenza Type A (PCR) (Neg) Influenza Type B (PCR) (Neg) RSV (RT-PCR) (Neg) 08/01/21 08/01/21 Range/Units 16:13 16:55 WBC (4.8-10.8) K/uL RBC (4.7-6.1) M/uL Hgb (14.0-18.0) g/dL Hct (42-52) % MCV (80-100) fL MCH (25-34) pg MCHC (32-36) g/dL RDW Std Deviation (36.4-46.3) fL RDW Coeff of Ralph (11.5-14.5) % Plt Count (130-400) K/uL MPV (7.4-10.4) fL Neutrophils % (Manual) % Band Neutrophils % % Lymphocytes % (Manual) % Prolymphocyte % % Reactive Lymphs % (Man) % Monocytes % (Manual) % Eosinophils % (Manual) % Basophils % (Manual) % Metamyelocytes % (Man) % Myelocytes % (Man) % Promyelocytes % (Man) % Blast Cells % (Manual) % Plasma Cell % (Manual) % Other Cells % % Neutrophils # (Manual) (1.4-6.5) K/uL Total Absolute Neuts (1.4-6.5) K/uL Lymphocytes # (Manual) (1.2-3.4) K/uL Total Abs Lymphocytes (1.2-3.4) K/uL Monocytes # (Manual) (0.11-0.59) K/uL Large Granular Lymphs % PT (9.0-12.0) Seconds INR (0.9-1.1) APTT (21.0-31.0) Seconds PTT Ratio Sodium (136-145) mmol/L Potassium (3.5-5.1) mmol/L Chloride (98-107) mmol/L Carbon Dioxide (21-32) mmol/L Anion Gap (3-11) BUN (7-18) mg/dl Creatinine (0.6-1.4) mg/dl Est Cr Clr Drug Dosing ml/min Est GFR ( Amer) ml/min Est GFR (Non-Af Amer) ml/min BUN/Creatinine Ratio (10-20) Glucose (70-99) mg/dl Calcium (8.5-10.1) mg/dl Magnesium (1.8-2.4) mg/dl Total Bilirubin (0.2-1) mg/dl AST (15-37) U/L ALT (12-78) Alkaline Phosphatase (45-117) U/L Troponin I (0-0.045) ng/ml Total Protein (6.4-8.2) gm/dl Albumin (3.4-5.0) gm/dl Globulin (2.5-4.0) gm/dl Albumin/Globulin Ratio (0.9-2) Urine Color Yellow Urine Appearance Clear (Clear) Urine pH 5.5 (4.5-7.5) Ur Specific [place] 1.020 (1.000-1.030) Urine Protein 1+ H (Negative) Urine Glucose (UA) Negative (Negative) Urine Ketones 1+ H (Negative) Urine Blood Negative (Negative) Urine Nitrite Negative (Negative) Urine Bilirubin Negative (Negative) Urine Urobilinogen Negative (Negative) Ur Leukocyte Esterase 1+ H (Negative) Urine WBC (Auto) >30 H (0-5) /hpf Urine RBC (Auto) 0-4 (0-4) /hpf U Hyaline Cast (Auto) 5-10 H (0-5) /lpf U Epithel Cells (Auto) 0-5 (0-5) /lpf Urine Bacteria (Auto) 4+ H (Negative) SARS-CoV-2 (PCR) POSITIVE A* (Negative) Influenza Type A (PCR) Negative (Neg) Influenza Type B (PCR) Negative (Neg) RSV (RT-PCR) Negative (Neg) Administered Medications Discontinued Medications Sodium Chloride (Nss 1000ml) 1,000 mls @ 999 mls/hr IV .Q1H1M ONE Stop: 08/01/21 17:15 Last Infusion: 08/01/21 18:07 Dose: 999 mls/hr Documented by: [id number] Admin: 08/01/21 16:52 Dose: 999 mls/hr Documented by: [id number] Ceftriaxone Sodium (Rocephin) 1,000 mg in 50 mls @ 100 mls/hr IV NOW STA Stop: 08/01/21 16:45 Last Infusion: 08/01/21 17:21 Dose: 100 mls/hr Documented by: [id number] Admin: 08/01/21 16:51 Dose: 100 mls/hr Documented by: [id number] Imaging Data Radiologist's Impression: Chest X-Ray 08/01/21 15:07 XR chest 1V portable HISTORY: Shortness of breath. COMPARISON: Chest 06/11/2021. FINDINGS: The lungs are clear. Cardiac silhouette is normal in size. No pleural effusions. No pneumothorax. IMPRESSION: No acute process. ACT 112: Negative or not required by law. Electronically signed by: Jim Arellano M.D. 08/01/2021 4:09 PM Discharge Plan Visit Data Chief Complaint: Shortness of Breath/Dyspnea Stated Complaint: SOB,FREQ URINATION,PAIN W/ URINATION ED Provider: Sean Byers Discharge Problem: Acute UTI, COVID-19, Acute hyperkalemia Forms Stand Alone Forms: [facility] Prescriptions Prescriptions: No Action atorvastatin [Lipitor] 40 mg tablet 40 mg PO HS RF: 0 valganciclovir [Valcyte] 450 mg Tablet 450 - 900 mg PO UD RF: 0 acetaminophen [Tylenol] 325 mg Tablet 650 mg PO Q6H PRN (Reason: Pain) RF: 0 aspirin 325 mg Tablet 325 mg PO QAM RF: 0 sulfamethoxazole-trimethoprim [Bactrim] 400-80 mg tablet 1 tab PO Q OTHER DAY RF: 0 tamsulosin [Flomax] 0.4 mg capsule 0.4 mg PO HS RF: 0 pantoprazole [Protonix] 40 mg tablet,delayed release (DR/EC) 40 mg PO QAM RF: 0 tacrolimus [Prograf] 1 mg capsule 3 mg PO AMPM RF: 0 mycophenolate sodium [Myfortic] 180 mg tablet,delayed release (DR/EC) 360 mg PO BID RF: 0 Veltassa 16.8 gram powder in packet 8.4 g PO DAILY@1400 RF: 0 hydralazine 10 mg tablet 10 mg PO HS RF: 0 Lokelma 5 gram Powder In Packet 5 g PO DAILY RF: 0 fludrocortisone 0.1 mg tablet 0.1 mg PO DAILY RF: 0 Referrals Referrals: Crio Singh MD [Primary Care Provider] -
[2021-08-01 17:48] LABS: Influenza A virus by PCR Negative (Neg); Influenza B virus by PCR Negative (Neg); RSV by PCR Negative (Neg)
[2021-08-01 18:22] LABS: SARS CoV2 RNA(COVID-19) InHosp POSITIVE (Negative)
--- NOTE | 2021-08-01 19:51 | Ultrasound Report ---
US renal transplant w dop HISTORY: 36 years-old Male us abd kindey llq follow up study in a patient with left lower quadrant r enal transplant February 2021. Acute midline pelvic pain. COMPARISON: CT abdomen pelvis 03/11/2021 TECHNIQUE: Multiple real-time sonographic images of the urinary bladder and left lower quadrant trans plant kidney were obtained assessing grayscale appearance and color flow FINDINGS: Transplanted kidney within the abdominal left lower quadrant measures 12.3 cm in length and demonstra kaz no hydronephrosis or suspicious mass lesion. Mild perinephric edema. Patent transplanted renal ar alexa and vein. Elevated peak velocities are noted within the main renal artery at the anastomotic sit e measuring up to 264 cm/s. The left iliac artery and vein are patent. Resistive index of the left ki dney measures 0.6- 0.8. Moderate circumferential urinary bladder wall thickening measures up to 8 mm. IMPRESSION: 1. No renal calculi or hydronephrosis. 2. Elevated peak systolic velocities within the left renal artery at the anastomosis are suspicious f or arterial stenosis. 3. Nonspecific urinary bladder wall thickening. Correlate with urinalysis. ACT 112: Negative or not required by law. The above report was generated using voice recognition software. It may contain grammatical, syntax o r spelling errors. Electronically signed by: Juanjose West M.D. 08/01/2021 7:49 PM
[2021-08-01] MEDS ORDERED: ONDANSETRON INJ 2 MG/ML 2 ML VIAL ONE (20:28)
[2021-08-01] MEDS ORDERED: CONSULT PHARMACY STA (20:49)
--- NOTE | 2021-08-01 22:24 | History and Physical Report ---
DATE OF ADMISSION: 08/01/2021 CHIEF COMPLAINT: Urinary symptoms and COVID. HISTORY OF PRESENT ILLNESS: This is a 36-year-old male with past medical history significant for type 1 diabetes, end-stage renal disease because of diabetes, and status post renal transplant, status post pancreatic transplant in January of this year. Since pancreatic transplant, he is not requiring any insulin. History of hypertension, migraines, history of UTI, former smoker comes because of urinary symptoms . Having frequent urination, urgency, and some lower abdominal pain and he was found to have UTI. ER physician talked to the transplant center [facility] and they advised to keep the patient in the hospital and treat for UTI. The patient is COVID vaccinated with Moderna, second dose was in November 2020 and did not receive any booster dose. The patient feels weak, loss of appetite and some mild headache for the last 2 days. He thinks he may have some mild cough for the last 2 days and his COVID is positive in the ER, but he is saturating okay on room air. Denies any chest pain. Has some nausea. No earache, no runny nose, no sore throat. Some lower abdominal pain. No diarrhea or constipation. No swelling in the legs, no rash. Hemodynamically stable. ALLERGIES: NSAIDs. PAST MEDICAL HISTORY: As mentioned above. 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 MEDICATIONS: The patient is on Tylenol 650 mg p.o. q.6 hours p.r.n., aspirin 325 mg p.o. a.m., Lipitor 40 mg p.o. at bedtime, fludrocortisone 0.1 mg p.o. daily, hydralazine 10 mg p.o. at bedtime, mycophenolate 360 mg p.o. b.i.d., Protonix 40 mg p.o. daily, sodium bicarbonate 1300 mg p.o. daily, sodium zirconium cyclosilicate 5 g p.o. daily, Bactrim 1 tablet p.o. every other day, Prograf 3 mg p.o. b.i.d., Flomax 0.4 mg p.o. at bedtime, valganciclovir alternating with 450 and 900 mg daily. FAMILY HISTORY: Significant for mother has hypertension, maternal grandfather has diabetes, maternal grandmother has diabetes, paternal grandmother has diabetes. SOCIAL HISTORY: Single, former smoker, smoked 1 pack a day for 23 years, quit in 2017. Alcohol, not drinking currently. No drug use. REVIEW OF SYSTEMS: As per HPI. Rest of review of systems is negative. PHYSICAL EXAMINATION: GENERAL: The patient is moderately built, not in acute distress. VITAL SIGNS: Temperature 36.6, pulse 89, respirations 16, blood pressure 195/97, oxygen 98% on room air. HEENT: Pupils equal, round and reactive to light. Oral mucosa moist. NECK: No JVD, no neck masses. CARDIOVASCULAR: S1 and S2 heard. Regular rate and rhythm. No murmur, no gallop. RESPIRATORY: Normal AP diameter. No accessory muscle use. No wheezing, no crackles. ABDOMEN: Soft, bowel sounds present. Mild lower abdominal discomfort, no guarding, no rigidity, no distention. CENTRAL NERVOUS SYSTEM: Cranial nerves II-XII grossly intact, nonfocal. EXTREMITIES: No edema, no erythema. LABORATORY DATA: WBC 3.4, hemoglobin 15.7, hematocrit 47.6, platelets 238. PT 11.2, INR 1.1, APTT 32.3. Sodium 135, potassium 5.2, chloride 105, bicarbonate 24, BUN 26, creatinine 1.7, serum glucose 87, calcium 10.2, magnesium 2, total bilirubin 0.7, AST 19, ALT 26, alkaline phosphatase 140. Troponin I less than 0.015. Urinalysis positive for +1 leukocyte esterase, +4 bacteria. SARS-CoV-2 PCR positive. Influenza A and B negative. RSV PCR negative. Renal ultrasound: Elevated peak systolic velocity of the left renal artery at the anastomosis site, suspicious for arterial stenosis. Nonspecific urinary bladder wall thickening, correlate with urinalysis. Chest x-ray: No acute process. EKG: Normal sinus rhythm at a rate of 98, no significant change was found. ASSESSMENT AND PLAN: This is a 36-year-old male who presents with urinary tract infection and also found to have COVID. 1. Complicated urinary tract infection. The patient has history of renal transplant, history of urinary tract infection in the past with history of Klebsiella in the past. We will start on cefepime. Follow the cultures. Gentle fluids for 1 liter. Monitor in the med-telemetry. 2. Mild hyperkalemia. We will follow the repeat laboratories in the a.m.Low potassium diet. Continue his home Lokelma.(seems not on Veltassa as per patient med list) The patient is status post renal transplant. 3. History of end-stage renal disease secondary to diabetes, currently creatinine of 1.7, seems to be at baseline. We will follow the laboratories and continue his home transplant medications. Ultrasound showing some stenosis. Emergency Room talked to [facility] transplant center and they advised to keep him in the hospital with antibiotics and when call to update them again will notify about the stenosis. Continue his prophylactic antibiotics also. 4. History of type 1 diabetes, status post renal and pancreatic transplants. Not requiring insulin currently. Continue transplant medications. 5. Gastroesophageal reflux disease. Continue Protonix. 6. Hypertension. Continue his hydralazine. 7. Hyperlipidemia. Continue his statin. 8. COVID. Not received booster.The patient is currently not requiring oxygen.. COVID precautions. Will monitor. 9. Deep venous thrombosis prophylaxis: Heparin subcutaneously. DISPOSITION: Closely monitor in the med-tele. PT/OT prior to discharge. Social service to help with discharge planning. Job ID: [id number] [facility] [place]
[2021-08-01] MEDS ORDERED: SODIUM CHLORIDE 0.9% 1000ML 1,000 ML IV SCH (22:53)
[2021-08-01] MEDS ORDERED: MYCOPHENOLATE SODIUM 180 MG TAB PO SCH (22:53)
[2021-08-01] MEDS ORDERED: ONDANSETRON INJ 2 MG/ML 2 ML VIAL IV PRN (22:53)
[2021-08-01] MEDS ORDERED: NITROGLYCERIN SL 0.4 MG/TAB TAB SL PRN (22:53)
[2021-08-01] MEDS ORDERED: ACETAMINOPHEN 325 MG TAB PO PRN (22:53)
[2021-08-02] MEDS: hydrALAZINE 10 MG TAB PO SCH ×2 (00:46→21:13)
[2021-08-02] MEDS: ATORVASTATIN 40 MG TAB PO SCH ×2 (00:46→21:13)
[2021-08-02] MEDS: TAMSULOSIN HCL 0.4 MG CAP PO SCH ×2 (00:46→21:14)
[2021-08-02] MEDS: HEPARIN SOD 5,000 UNIT/0.5 ML VIAL SQ SCH ×4 (00:47→21:10)
[2021-08-02] MEDS: CEFEPIME 2,000 MG in SYRINGE 0 ML IV SCH ×2 (00:52→23:02)
[2021-08-02] MEDS: TACROLIMUS 1 MG CAP PO SCH ×3 (03:46→21:11)
[2021-08-02 07:01] LABS: Hematocrit (blood only) 44.9 % (42-52); Hemoglobin 14.4 g/dL (14.0-18.0); Mean Corpuscular Hemoglobin 32.3 pg (25-34); Mean Corpuscular Hgb Conc 32.1 g/dL (32-36); Mean Corpuscular Volume 100.7 fL (80-100); Mean Platelet Volume 10.7 fL (7.4-10.4); Platelet Count 237 K/uL (130-400); RDW Standard Deviation 52.2 fL (36.4-46.3); Red Blood Count 4.46 M/uL (4.7-6.1); White Blood Count 3.23 K/uL (4.8-10.8)
[2021-08-02 07:28] LABS: BUN Creatinine Ratio 16.5 (10-20); Calcium 9.7 mg/dl (8.5-10.1); Creatinine Clr Calc Pharmacy 53.9 ml/min; Est GFR (African American) 66.3 ml/min; Est GFR (Non-African American) 57.2 ml/min; Magnesium 2.1 mg/dl (1.8-2.4); Potassium 5.3 mmol/L (3.5-5.1)
[2021-08-02 07:40] LABS: ALC (manual) 0.46 K/uL (1.2-3.4); ANC (manual) 2.09 K/uL (1.4-6.5); Basophils # (manual) 0.11 K/uL (0-0.2); Basophils % (manual) 3.3 %; Lymphocytes # (manual) 0.46 K/uL (1.2-3.4); Lymphocytes % (manual) 14.3 %; Monocytes # (manual) 0.57 K/uL (0.11-0.59); Monocytes % (manual) 17.6 %; Neutrophils # (manual) 2.09 K/uL (1.4-6.5); Neutrophils % (manual) 64.8 %
[2021-08-02] MEDS ORDERED: SODIUM BICARBONATE 650 MG TAB PO SCH (09:00)
[2021-08-02] MEDS: VALGANCICLOVIR HCL 450 MG TABLET PO SCH (10:16)
[2021-08-02] MEDS: SULFA/TRIMETH 400/80MG TAB PO SCH (10:16)
[2021-08-02] MEDS: PANTOprazole 40 MG TAB PO SCH (10:16)
[2021-08-02] MEDS: ASPIRIN 325 MG ECTAB PO SCH (10:16)
[2021-08-02] MEDS: FLUDROCORTISONE ACETATE 0.1 MG TAB PO SCH (10:16)
[2021-08-02] MEDS: ACETAMINOPHEN 325 MG TAB PO PRN (11:23)
--- NOTE | 2021-08-02 11:58 | Nephrology Consultation ---
Date of Consultation August 02, 2021 Assessment & Plan (1) Kidney transplanted: Recent creatinine 1.7-1.8; 1.9 on most recent [facility] labs. He is maintained on mycophenolate 360 mg p.o. twice daily, tacrolimus 3 mg twice daily at baseline; also remains on Bactrim and valganciclovir. Defer to [facility] to comment on clinical significance if any of renal artery stenosis in transplanted kidney. Without overt sepsis and with graft function at baseline. Continue outpatient immunosuppression >>>>>>> myfortic not given b/c not formulary though pt says he has brought it in >defer to hospitalist to investigate/follow up -no timely tacro troughs available here; be sure to remind [facility] of this -will give NS 80 ml hourly x 1 L more (2) Complicated UTI (urinary tract infection): Continue cefepime and follow-up pending cultures; agree with infectious diseases evaluation (3) Neurogenic bladder: Monitor postvoid residual every shift for the next 48 hours or/and x 4 -low threshold to c/s [facility] urology since this is his second admission w/ UTI in 6 mos (4) COVID-19: Per primary service/protocols (5) Hyperkalemia: Maintained as an outpatient on fludrocortisone, sodium bicarbonate, Lokelma: first 2 cont; clarify if lokelma is (pt says it was brought in from home for him to take). Agree with low potassium diet Daily basic metabolic panel >>>if not getting lokelma (pharmacy has not verified this off formulary med) then recommend veltassa 8.4 gm daily History of Present Illness Reason for Consultation: UTI and renal transplant patient Requesting Physician: Dr. Mercado Attending Physician: Doug Mercado MD History of Present Illness 36-year-old male who I am asked to evaluate for anal transplant care in the setting of UTI was admitted for the same last evening and found also on presentation to be Covid positive. Past medical history includes type 1 diabetes status post renal and pancreatic transplant [facility] January 2021, CKD with baseline creatinine post transplant 1.7, hypertension, hyperlipidemia, GERD, reformed tobacco user, history of parotid gland resection, migraines. Admitted here for pansensitive Klebsiella UTI with acute renal failure February 2021; transferred to [facility] after that. Of note prior to transplantation he had a history of chronic urinary retention requiring chronic intermittent self-catheterization. Also admitted here with staph aureus bacteremia September 2019. History of TIA and hypertensive urgency. He has had both Moderna vaccines, completed November 2020. Has not had booster. [facility]s [facility]; pt tells me his neurogenic bladder has resolved completely since txplt and no CIC needed, no retention concerns. On presentation he was given 1 L normal saline, started on cefepime. Imaging notable for possible JUAN. Pt tells me he feels better than admission; prior to admission though he had uri or flu for a few days; did have emesis x 1, was not eating well. also some decreased uop per void and increased frequency and dysuria w/ just prior to admission inability to void. no focal numbness/weakness; no cough. Allergies Allergy/AdvReac Type Severity Reaction Status Date / Time NSAIDS (Non-Steroidal AdvReac RENAL Verified 08/01/21 19:17 Anti-Inflamma FAILURE Home Medications Medication Instructions Recorded Confirmed Type acetaminophen 325 mg tablet 650 mg PO Q6H PRN 03/11/21 08/01/21 History (Tylenol) aspirin 325 mg tablet 325 mg PO QAM 03/11/21 08/01/21 History atorvastatin 40 mg tablet (Lipitor) 40 mg PO HS 03/11/21 08/01/21 History mycophenolate sodium 180 mg 360 mg PO BID 03/11/21 08/01/21 History tablet,delayed release (Myfortic) pantoprazole 40 mg tablet,delayed 40 mg PO QAM 03/11/21 08/01/21 History release (Protonix) patiromer calcium sorbitex 16.8 8.4 g PO DAILY@1400 03/11/21 08/01/21 History gram oral powder packet (Veltassa) sulfamethoxazole 400 1 tab PO Q OTHER DAY 03/11/21 08/01/21 History mg-trimethoprim 80 mg tablet (Bactrim) tacrolimus 1 mg capsule, 3 mg PO AMPM 03/11/21 08/01/21 History immediate-release (Prograf) tamsulosin 0.4 mg capsule (Flomax) 0.4 mg PO HS 03/11/21 08/01/21 History valganciclovir 450 mg tablet 450 - 900 mg PO UD 03/11/21 08/01/21 History (Valcyte) fludrocortisone 0.1 mg tablet 0.1 mg PO DAILY 06/13/21 08/01/21 History hydralazine 10 mg tablet 10 mg PO HS 08/01/21 08/01/21 History sodium bicarbonate 650 mg tablet 1,300 mg PO DAILY 08/01/21 08/01/21 History sodium zirconium cyclosilicate 5 5 g PO DAILY 08/01/21 08/01/21 History gram oral powder packet (Lokelma) Patient History Medical History Anemia in ESRD (end-stage renal disease) At risk for fertility problems Bacteremia due to Staphylococcus aureus MSSA bacteremia 10/05/19 treated with cefazolin x 6 wks Charcot foot due to diabetes mellitus Chronic wound of extremity Complicated UTI (urinary tract infection) Diabetes mellitus type 1 with complications Diabetic nephropathy Diabetic neuropathy Diabetic retinopathy Erectile dysfunction ESRD on dialysis Fatty liver History of peritoneal dialysis Hyperkalemia Hypertension Hypertension Nephrotic syndrome due to diabetes mellitus Neurogenic bladder Peritoneal dialysis catheter in place REMOVED 11/10/19 Prolonged QT interval TIA (transient ischemic attack) Type 1 diabetes mellitus Surgical History Kidney transplanted Pancreas transplanted S/P eye surgery Family History Mother Hypertension Grandfather (Maternal) Diabetes Grandmother (Maternal) Diabetes Grandmother (Paternal) Diabetes Social History Smoking Status: Never smoker Cigarettes Per Day: 10; Second Hand Exposure: No; Hx Alcohol Use: No Hx Substance Use: No Preferred Language: Bengali Communication Ability: Effective Visual Impairment: Limited Director Of Logistics Required: No Beliefs That Will Affect Care: None marital status: Single Current Living Situation: Alone current occupational status: employed Other Information That Helps Us Care for You: No Feels Safe at Home: Yes Assistive Devices: None Review of Systems Review of Systems: All systems reviewed & are unremarkable except as noted in HPI & below Physical Exam Constitutional: well developed and well nourished on RA, maneuvers readily for exam Eyes: EOM intact bilaterally ENMT: Ears: no external ear abnormality Nose: no external nose abnormality Mouth: + dry oral mucous membranes Neck: no nuchal rigidity Respiratory: normal respiratory effort Auscultation: + diminished lung sounds Cardiovascular: RRR, no murmur, no edema Extremities: + AV fistula (+ t/b) Gastrointestinal (Abdomen): Inspection/Auscultation: normal bowel sounds Percussion/Palpation: abdomen soft; abdomen nontender NT renal/pancreatic allografts; moderate suprapubic tenderness Musculoskeletal: Extremities: strength 5/5 throughout Skin: no rashes, warm and dry Neurologic: soria, fluent speech, no tremor Psychiatric: Orientation: oriented x 3 Speech: normal rate/rhythm/volume of speech Results & Data ([facility]) Vital Signs (Past 12 Hours) Vital Signs Temp Pulse Pulse Resp BP Pulse Ox 08/02/21 06:47 36.9 C 71 16 155/88 H 97 08/02/21 05:56 69 08/02/21 03:20 36.7 C 82 16 115/79 97 Laboratory Results 08/02/21 05:55 08/02/21 05:55 Urinalysis with microscopy: Yellow urine specific gravity 1021+ protein 1+ ketones 1+ leukocyte Estrace greater than 30 white cells, 4+ bacteria other indices negative Urine culture with gram-negative rods Blood cultures in process Diagnostic Findings Renal ultrasound Transplanted kidney within the abdominal left lower quadrant measures 12.3 cm in length and demonstrates no hydronephrosis or suspicious mass lesion. Mild perinephric edema. Patent transplanted renal artery and vein. Elevated peak velocities are noted within the main renal artery at the anastomotic site measuring up to 264 cm/s. The left iliac artery and vein are patent. Resistive index of the left kidney measures 0.6- 0.8. Moderate circumferential urinary bladder wall thickening measures up to 8 mm. IMPRESSION: 1. No renal calculi or hydronephrosis. 2. Elevated peak systolic velocities within the left renal artery at the anastomosis are suspicious for arterial stenosis. 3. Nonspecific urinary bladder wall thickening. Correlate with urinalysis. Chest x-ray no acute cardiopulmonary process
[2021-08-02] MEDS: SODIUM BICARBONATE 650 MG TAB PO SCH (13:01)
[2021-08-02] MEDS ORDERED: SODIUM CHLORIDE 0.9% 1000ML 1,000 ML IV SCH (14:00)
[2021-08-02] MEDS: MYCOPHENOLATE SODIUM 180 MG TAB PO SCH ×2 (16:38→23:01)
[2021-08-02] MEDS: SODIUM ZIRCONIUM CYCLOSILICATE 5 GM PO SCH (16:38)
--- NOTE | 2021-08-02 19:09 | Hospitalist Progress Note ---
Date of Service August 02, 2021 Assessment & Plan (1) Complicated UTI (urinary tract infection): (2) COVID-19: Plan: ASSESSMENT AND PLAN: This is a 36-year-old male who presents with urinary tract infection and also found to have COVID. Complicated urinary tract infection. Renal transplant status -- the patient has history of renal transplant, history of urinary tract infection in the past with history of Klebsiella in the past. Ultrasound showing some stenosis. Follow-up urine and blood cultures Continue IV cefepime --Continue mycophenolate, tacrolimus, Bactrim, valacyclovir Nephrology consulted ID consulted web coordinator contacted COVID-19 infection Status post 2 vaccines, due for booster Asymptomatic On room air Chest x-ray clear Continue close monitoring web coordinator contacted Awaiting callback Status post pancreatic transplant Continue immunosuppressants as per above History of diabetes type 1 Not require insulin at this time Mild hyperkalemia. Potassium 5.3 Continue Lokelma Gastroesophageal reflux disease. Continue Protonix. Hypertension. Continue his hydralazine. Hyperlipidemia. Continue his statin. Deep venous thrombosis prophylaxis: Heparin subcutaneously. DISPOSITION:Pending Admission and Anticipated Discharge Date Admission Date: August 01, 2021 Subjective Follow-up for UTI, COVID-19 infection, status post renal transplant and pancreatic transplant Etc. Seen resting in bed, comfortable, not in distress States he feels improved compared to yesterday No abdominal pain, fevers or chills, back pain Reports moderate headache No cough, shortness of breath, nasal congestion, sore throat, loss of taste or smell No other symptoms Review of Systems Review of Systems: all noted and negative except for above Physical Exam Physical Exam: General- oriented x 3, not in distress, speaks in sentences with no effort or accessory muscle use Head- atraumatic Eyes- PERRL, EOMI, anicteric ENT- oropharynx clear Neck- supple, no JVD, no adenopathy, no thyromegaly; carotids +2/2, no bruits appreciated Lungs- clear to auscultation bilaterally, no rales/wheezes Heart- normal rate, regular rhythm; no murmur, no gallop, no rub appreciated Abdomen- normal bowel sounds, nondistended, soft, nontender, no masses or hepatosplenomegaly Extremities- no pretibial edema, no calf tenderness; peripheral pulses intact Neuro- alert, oriented x 3; CN 2-12 grossly intact; motor 5/5 bilaterally;sensation 100% on all extremities; no other gross focal neurologic deficits Skin- warm & dry Results & Data Results & Data ([facility]) Vital Signs (Past 12 Hours) Vital Signs Temp Pulse Resp BP Pulse Ox 08/02/21 16:07 36.7 C 66 16 129/73 99 08/02/21 11:43 36.7 C 76 18 137/79 99 all noted and reviewed including below
[2021-08-02] MEDS: ZOLPIDEM TARTRATE 5 MG TAB PO PRN (23:08)
[2021-08-03] MEDS: HEPARIN SOD 5,000 UNIT/0.5 ML VIAL SQ SCH ×3 (06:05→21:39)
[2021-08-03] MEDS: PANTOprazole 40 MG TAB PO SCH (07:22)
[2021-08-03] MEDS: ASPIRIN 325 MG ECTAB PO SCH (07:22)
[2021-08-03] MEDS: FLUDROCORTISONE ACETATE 0.1 MG TAB PO SCH (07:22)
[2021-08-03] MEDS: TACROLIMUS 1 MG CAP PO SCH ×2 (07:23→21:45)
[2021-08-03] MEDS: VALGANCICLOVIR HCL 450 MG TABLET PO SCH (07:23)
[2021-08-03] MEDS: SODIUM BICARBONATE 650 MG TAB PO SCH (07:24)
[2021-08-03] MEDS: MYCOPHENOLATE SODIUM 180 MG TAB PO SCH ×2 (07:24→21:40)
[2021-08-03 08:34] LABS: Creatinine Clr Calc Pharmacy 50.8 ml/min; Est GFR (African American) 61.5 ml/min
[2021-08-03 09:40] LABS: Hematocrit (blood only) 44.6 % (42-52); Hemoglobin 14.9 g/dL (14.0-18.0); Mean Corpuscular Hgb Conc 33.4 g/dL (32-36); Mean Corpuscular Volume 98.7 fL (80-100); Mean Platelet Volume 10.5 fL (7.4-10.4); Platelet Count 216 K/uL (130-400); RDW Coefficient of Variation 13.8 % (11.5-14.5); RDW Standard Deviation 49.4 fL (36.4-46.3); Red Blood Count 4.52 M/uL (4.7-6.1); White Blood Count 2.52 K/uL (4.8-10.8)
[2021-08-03 09:55] LABS: Basophils # (auto) 0.03 K/uL (0-0.2); Basophils % (auto) 1.2 %; Eosinophils # (auto) 0.07 K/uL (0-0.5); Eosinophils % (auto) 2.8 %; Immature Granulocytes # (auto) 0.18 K/uL (0.00-0.02); Immature Granulocytes % (auto) 7.1 %; Lymphocytes # (auto) 0.23 K/uL (1.2-3.4); Lymphocytes % (auto) 9.1 %; Monocytes # (auto) 0.41 K/uL (0.11-0.59); Monocytes % (auto) 16.3 %; Neutrophils % (auto) 63.5 %
[2021-08-03] MEDS: ACETAMINOPHEN 325 MG TAB PO PRN (12:44)
--- NOTE | 2021-08-03 13:30 | Hospitalist Progress Note ---
Date of Service August 03, 2021 Assessment & Plan (1) Complicated UTI (urinary tract infection): (2) COVID-19: Plan: ASSESSMENT AND PLAN: This is a 36-year-old male who presents with urinary tract infection and also found to have COVID. Complicated urinary tract infection. Renal transplant status -- the patient has history of renal transplant, history of urinary tract infection in the past with history of Klebsiella in the past. Ultrasound showing some stenosis. Urine culture: Klebsiella, sensitive to cefepime and ceftriaxone Blood cultures: Negative so far Continue IV cefepime day #2 --Continue mycophenolate, tacrolimus, Bactrim, valacyclovir Nephrology consulted, appreciate their recommendations ID consulted, awaiting recommendations salon coordinator contacted, awaiting callback COVID-19 infection Status post 2 vaccines, due for booster Positive mild cough, sore throat, decreased sense of smell On room air Chest x-ray clear Continue close monitoring salon coordinator contacted Awaiting callback Status post pancreatic transplant Continue immunosuppressants as per above History of diabetes type 1 Not require insulin at this time Mild hyperkalemia. Potassium 5.3 Continue Lokelma Gastroesophageal reflux disease. Continue Protonix. Hypertension. Continue his hydralazine. Hyperlipidemia. Continue his statin. Deep venous thrombosis prophylaxis: Heparin subcutaneously. DISPOSITION:Pending Admission and Anticipated Discharge Date Admission Date: August 01, 2021 Subjective ff up for Klebsiella UTI, status post renal and pancreatic transplant status, COVID-19 infection, etc. Seen sitting up in bed, about to have his lunch Comfortable, very pleasant Reports mild cough, sore throat, decreased sense of smell No shortness of breath No abdominal pain, urinary symptoms, fevers or chills No other symptoms Review of Systems Review of Systems: all noted and negative except for above Physical Exam Physical Exam: General- oriented x 3, not in distress, speaks in sentences with no effort or accessory muscle use Eyes- anicteric Neck- no JVD Lungs- clear breath sounds bilaterally, no crackles, no wheezing Heart- normal rate, regular rhythm; no murmurs Abdomen- normal bowel sounds, nondistended, soft, nontender Extremities- no pretibial edema, no calf tenderness Neuro- alert, oriented x 3; no gross focal neurologic deficits Skin- warm & dry Results & Data Results & Data ([facility]) Vital Signs (Past 12 Hours) Vital Signs Temp Pulse Pulse Resp BP Pulse Ox 08/03/21 11:49 36.8 C 67 16 154/86 H 98 08/03/21 10:46 57 L 08/03/21 07:18 36.3 C L 61 18 160/72 H 99 08/03/21 04:14 62 08/03/21 03:26 36.4 C L 58 L 18 154/76 H 99 all noted and reviewed including below
[2021-08-03 14:17] LABS: BUN Creatinine Ratio 18.1 (10-20); Calcium 9.8 mg/dl (8.5-10.1); Creatinine Clr Calc Pharmacy 47.9 ml/min; Est GFR (African American) 57.2 ml/min; Est GFR (Non-African American) 49.3 ml/min; Potassium 4.7 mmol/L (3.5-5.1)
[2021-08-03] MEDS: SODIUM ZIRCONIUM CYCLOSILICATE 5 GM PO SCH (14:24)
[2021-08-03] MEDS: ATORVASTATIN 40 MG TAB PO SCH (21:43)
[2021-08-03] MEDS: hydrALAZINE 10 MG TAB PO SCH (21:43)
[2021-08-03] MEDS: TAMSULOSIN HCL 0.4 MG CAP PO SCH (21:44)
[2021-08-03] MEDS: CEFEPIME 2,000 MG in SYRINGE 0 ML IV SCH (23:29)
[2021-08-03] MEDS: ZOLPIDEM TARTRATE 5 MG TAB PO PRN (23:30)
[2021-08-04] MEDS: HEPARIN SOD 5,000 UNIT/0.5 ML VIAL SQ SCH ×3 (05:51→21:47)
[2021-08-04 06:38] LABS: Hemoglobin 14.3 g/dL (14.0-18.0); Mean Corpuscular Hemoglobin 32.6 pg (25-34); Mean Corpuscular Hgb Conc 33.3 g/dL (32-36); Mean Corpuscular Volume 97.9 fL (80-100); Mean Platelet Volume 10.2 fL (7.4-10.4); Platelet Count 221 K/uL (130-400); RDW Coefficient of Variation 13.6 % (11.5-14.5); RDW Standard Deviation 48.7 fL (36.4-46.3); Red Blood Count 4.39 M/uL (4.7-6.1); White Blood Count 2.19 K/uL (4.8-10.8)
[2021-08-04 07:00] LABS: Basophils # (auto) 0.04 K/uL (0-0.2); Basophils % (auto) 1.8 %; Eosinophils # (auto) 0.08 K/uL (0-0.5); Eosinophils % (auto) 3.7 %; Immature Granulocytes # (auto) 0.13 K/uL (0.00-0.02); Immature Granulocytes % (auto) 5.9 %; Lymphocytes # (auto) 0.21 K/uL (1.2-3.4); Lymphocytes % (auto) 9.6 %; Monocytes # (auto) 0.39 K/uL (0.11-0.59); Monocytes % (auto) 17.8 %; Neutrophils # (auto) 1.34 K/uL (1.4-6.5); Neutrophils % (auto) 61.2 %
[2021-08-04 07:08] LABS: Calcium 9.8 mg/dl (8.5-10.1); Creatinine Clr Calc Pharmacy 43.2 ml/min; Est GFR (African American) 50.7 ml/min; Est GFR (Non-African American) 43.8 ml/min; Potassium 4.7 mmol/L (3.5-5.1)
[2021-08-04] MEDS: VALGANCICLOVIR HCL 450 MG TABLET PO SCH (07:59)
[2021-08-04] MEDS: SULFA/TRIMETH 400/80MG TAB PO SCH (07:59)
[2021-08-04] MEDS: PANTOprazole 40 MG TAB PO SCH (08:00)
[2021-08-04] MEDS: FLUDROCORTISONE ACETATE 0.1 MG TAB PO SCH (08:00)
[2021-08-04] MEDS: TACROLIMUS 1 MG CAP PO SCH ×2 (08:00→21:46)
[2021-08-04] MEDS: MYCOPHENOLATE SODIUM 180 MG TAB PO SCH ×2 (08:01→21:46)
[2021-08-04] MEDS: ASPIRIN 325 MG ECTAB PO SCH (08:01)
--- NOTE | 2021-08-04 09:32 | Nephrology Progress Note ---
Date of Service August 04, 2021 Assessment & Plan (1) Kidney transplanted: Plan: Recent creatinine 1.7-1.8; 1.9 on most recent [facility] labs: Remains at baseline allograft function and without overt sepsis. He is maintained on mycophenolate 360 mg p.o. twice daily, tacrolimus 3 mg twice daily at baseline; also remains on Bactrim and valganciclovir. Defer to [facility] to comment on clinical significance if any of renal artery stenosis in transplanted kidney. Continue outpatient immunosuppression -Daily basic metabolic panel -no timely tacro troughs available here; be sure to remind [facility] of this (2) Complicated UTI (urinary tract infection): Plan: Continue cefepime; this is his third complicated UTI needing urgent care and second hospital admission with Klebsiella pneumoniae UTI since 01/2021 renal/pancreatic transplant; had 144 mL urine in bladder on scan w/o urge to void; no formal PVR on file so far -ongoing nursing efforts to obtain PVR appreciated; reinforced need for this w/ pt ->>>inf dzs consult still pending >> may also be able to arrange outpatient inf dzs consult with [facility] or [facility] via telemed ->>>I reached out to Dr Jmienez his [facility] urologist w/ update >> he recommends f/u appt w/ him 1-2 wks after discharge for cystoscopy versus urodynamic studies >>>>would ensure that when pt leaves hospital he has copies of urine, blood cx results and sensitivities for any ID f/u (3) Neurogenic bladder: Plan: Monitor postvoid residual every shift for the next 48 hours or/and x 4 -see abpve (4) COVID-19: Plan: Per primary service/protocols (5) Hyperkalemia: Plan: Maintained as an outpatient on fludrocortisone, sodium bicarbonate, Lokelma: Continued appropriately on all of these medications. Agree with low potassium diet Daily basic metabolic panel Admission and Anticipated Discharge Date Admission Date: August 01, 2021 Subjective no interval events. remains on RA. he tells me he's done PVR but confirmed w/ nursing team despite repeated requests he has not >> he rings hours after void; denies needing to void when he does ring; had one scan for 144 mL thus Review of Systems Review of Systems: All systems reviewed & are unremarkable except as noted in Subjective Physical Exam Constitutional: well developed and well nourished Eyes: EOM intact bilaterally ENMT: Ears: no external ear abnormality Nose: no external nose abnormality Mouth: + dry oral mucous membranes Neck: no nuchal rigidity Respiratory: normal respiratory effort Auscultation: + diminished lung sounds Cardiovascular: RRR, no murmur, no edema Extremities: + AV fistula (+ t/b) Gastrointestinal (Abdomen): Inspection/Auscultation: normal bowel sounds Percussion/Palpation: abdomen soft; abdomen nontender (including LLQ renal allograft) Musculoskeletal: Extremities: strength 5/5 throughout Skin: no rashes, warm and dry Psychiatric: Orientation: oriented x 3 Speech: normal rate/rhythm/volume of speech Genitourinary: suprapubic TTP resolved Results & Data ([facility]) Vital Signs (Past 12 Hours) Vital Signs Temp Pulse Pulse Resp BP Pulse Ox 08/04/21 07:38 37.0 C 64 16 133/74 98 08/04/21 07:08 60 08/04/21 06:48 36.9 C 63 18 145/74 H 98 08/04/21 06:23 59 L 08/04/21 03:03 36.6 C 62 18 177/94 H 98 08/03/21 23:04 36.7 C 63 18 155/85 H 98 Laboratory Results 08/04/21 05:40 08/04/21 05:40
[2021-08-04] MEDS: SODIUM BICARBONATE 650 MG TAB PO SCH (10:01)
[2021-08-04] MEDS: SODIUM ZIRCONIUM CYCLOSILICATE 5 GM PO SCH (12:59)
--- NOTE | 2021-08-04 16:56 | Hospitalist Progress Note ---
Date of Service August 04, 2021 Assessment & Plan (1) Complicated UTI (urinary tract infection): (2) COVID-19: Plan: ASSESSMENT AND PLAN: This is a 36-year-old male who presents with urinary tract infection and also found to have COVID. Complicated urinary tract infection. Renal transplant status -- the patient has history of renal transplant, history of urinary tract infection in the past with history of Klebsiella in the past. Ultrasound showing some stenosis. Urine culture: Klebsiella, sensitive to cefepime and ceftriaxone Blood cultures: Negative so far Continue IV cefepime day #3 --Continue mycophenolate, tacrolimus, Bactrim, valacyclovir Nephrology consulted, appreciate their recommendations ID consulted, awaiting recommendations destination imagination coordinator contacted, awaiting callback Urinary retention Chronic Likely contributing to patient's recurrent Klebsiella We will order urology consultation COVID-19 infection Status post 2 vaccines, due for booster Positive mild cough, sore throat, decreased sense of smell--> cough resolved On room air Chest x-ray clear Continue close monitoring destination imagination coordinator contacted Awaiting callback Status post pancreatic transplant Continue immunosuppressants as per above History of diabetes type 1 Not require insulin at this time Mild hyperkalemia. Potassium 4.7 Continue Lokelma Gastroesophageal reflux disease. Continue Protonix. Hypertension. Continue his hydralazine. Hyperlipidemia. Continue his statin. Deep venous thrombosis prophylaxis: Heparin subcutaneously. DISPOSITION:Lives at home Admission and Anticipated Discharge Date Admission Date: August 01, 2021 Subjective Follow-up for Klebsiella UTI, recurrent, status post renal pancreatic transplant, COVID-19 infection, etc. Seen sitting up in bedside chair, comfortable, not in distress Very pleasant States he continues to feel better No abdominal pain, dysuria, reports voiding twice today Denies shortness of breath, cough, sore throat, smell/taste is off but appetite is good Overall improving since admission No other symptoms Review of Systems Review of Systems: all noted and negative except for above Physical Exam Physical Exam: General- oriented x 3, not in distress, speaks in sentences with no effort or accessory muscle use Eyes- anicteric Neck- no JVD Lungs- clear BS bilaterally, no crackles, no rales no wheezing bilaterally Heart- normal rate, regular rhythm; no murmurs Abdomen- normal bowel sounds, nondistended, soft, nontender Extremities- no pretibial edema, no calf tenderness Neuro- alert, oriented x 3; no gross focal neurologic deficits Skin- warm & dry Results & Data Results & Data ([facility]) Vital Signs (Past 12 Hours) Vital Signs Temp Pulse Pulse Resp BP Pulse Ox 08/04/21 16:27 36.6 C 67 16 153/81 H 99 08/04/21 15:24 66 08/04/21 11:00 36.5 C 70 18 118/75 99 08/04/21 07:38 37.0 C 64 16 133/74 98 08/04/21 07:08 60 08/04/21 06:48 36.9 C 63 18 145/74 H 98 08/04/21 06:23 59 L all noted and reviewed including below
[2021-08-04] MEDS: TAMSULOSIN HCL 0.4 MG CAP PO SCH (21:46)
[2021-08-04] MEDS: ATORVASTATIN 40 MG TAB PO SCH (21:46)
[2021-08-04] MEDS: hydrALAZINE 10 MG TAB PO SCH (21:46)
[2021-08-04] MEDS: ZOLPIDEM TARTRATE 5 MG TAB PO PRN (23:55)
[2021-08-05] MEDS: CEFEPIME 2,000 MG in SYRINGE 0 ML IV SCH (00:28)
[2021-08-05] MEDS: HEPARIN SOD 5,000 UNIT/0.5 ML VIAL SQ SCH ×2 (06:12→13:52)
[2021-08-05 06:55] LABS: Hematocrit (blood only) 42.4 % (42-52); Hemoglobin 14.1 g/dL (14.0-18.0); Mean Corpuscular Hemoglobin 32.4 pg (25-34); Mean Corpuscular Hgb Conc 33.3 g/dL (32-36); Mean Corpuscular Volume 97.5 fL (80-100); Mean Platelet Volume 10.3 fL (7.4-10.4); Platelet Count 230 K/uL (130-400); RDW Coefficient of Variation 13.7 % (11.5-14.5); Red Blood Count 4.35 M/uL (4.7-6.1); White Blood Count 1.88 K/uL (4.8-10.8)
[2021-08-05 07:28] LABS: Basophils # (auto) 0.02 K/uL (0-0.2); Basophils % (auto) 1.1 %; Eosinophils # (auto) 0.06 K/uL (0-0.5); Eosinophils % (auto) 3.2 %; Immature Granulocytes % (auto) 5.3 %; Lymphocytes # (auto) 0.42 K/uL (1.2-3.4); Lymphocytes % (auto) 22.3 %; Monocytes # (auto) 0.23 K/uL (0.11-0.59); Monocytes % (auto) 12.2 %; Neutrophils # (auto) 1.05 K/uL (1.4-6.5); Neutrophils % (auto) 55.9 %
[2021-08-05 07:33] LABS: BUN Creatinine Ratio 19.5 (10-20); Calcium 9.8 mg/dl (8.5-10.1); Creatinine Clr Calc Pharmacy 45.7 ml/min; Est GFR (African American) 54.1 ml/min; Est GFR (Non-African American) 46.7 ml/min
[2021-08-05] MEDS: TACROLIMUS 1 MG CAP PO SCH (08:43)
[2021-08-05] MEDS: PANTOprazole 40 MG TAB PO SCH (08:43)
[2021-08-05] MEDS: MYCOPHENOLATE SODIUM 180 MG TAB PO SCH (08:44)
[2021-08-05] MEDS: FLUDROCORTISONE ACETATE 0.1 MG TAB PO SCH (08:44)
[2021-08-05] MEDS: VALGANCICLOVIR HCL 450 MG TABLET PO SCH (08:44)
[2021-08-05] MEDS: ASPIRIN 325 MG ECTAB PO SCH (08:45)
[2021-08-05] MEDS: SODIUM BICARBONATE 650 MG TAB PO SCH (10:21)
--- NOTE | 2021-08-05 13:33 | Urology Consultation ---
Date of Consultation August 05, 2021 Assessment & Plan (1) Complicated UTI (urinary tract infection): (2) Incomplete bladder emptying: (3) Immunosuppressed status: (4) Kidney transplanted: 36yo M with multiple medical issues and s/p renal and pancreatic transplant in January of this year admitted with UTI and Covid. - Urology consulted for urinary retention. History and chart reviewed. Visit conducted via telephone - Afebrile, VSS. - Labs reviewed - White count 1.88 and creatinine 1.81 - Urine culture positive for Klebsiella; Blood culture preliminary no growth x 48hours - Voiding spontaneously, output appears adequate. - PVR's noted in chart are acceptable, would consider straight catheterization when retaining >300ml. - Continue supportive care, antibiotic therapy, and management per primary team - If he would fail to improve with antibiotics, would recommend retroperitoneal ultrasound to assess [place] kidneys for hydro or other etiologies of recurrent infection. - Will arrange outpatient follow-up with urology in 1-2 weeks for further work- up. - will sign off, please call with any further questions or concerns Supervising Physician Co-Signing Physician Notes I discussed Mr. Hicks's case with CHRIS Huffman, and agree with the above documentation. History of Present Illness Reason for Consultation: Urinary retention Attending Physician: Doug Mercado MD History of Present Illness 36yo M with a past medical history significant for type 1 diabetes, end-stage renal disease 2/2 diabetes, and status post renal and pancreatic transplant in January of this year ([facility]), hypertension, migraines, TIA, anemia, nephrotic syndrome, history of UTI, and former smoker admitted with UTI and Covid-19. Urology consulted for urinary retention. Chart review: Afebrile Wbc 1.88 Hgb 14.1 Cr 1.81 Urine culture final with Klebsiella Blood cultures NGTD On IV Cefepime Continues on Flomax Nephrology and ID both consulted Urine output overnight -625ml. Bladder scanned this morning twice for 159ml and 104ml. Renal US- 1. No renal calculi or hydronephrosis. 2. Elevated peak systolic velocities within the left renal artery at the anastomosis are suspicious for arterial stenosis. 3. Nonspecific urinary bladder wall thickening. Correlate with urinalysis. Spoke with patient via telephone visit for consult. Reports he is being discharged today. He states he has an abnormally large bladder and has issues with urinary retention/incomplete emptying. No hematuria or dysuria. Stream ok. He has done CIC in the past and has also previously had urodynamic testing. Otherwise, feeling well and eager to go home. Offered no additional complaints during telephone visit today. Allergies Allergy/AdvReac Type Severity Reaction Status Date / Time NSAIDS (Non-Steroidal AdvReac RENAL Verified 08/01/21 19:17 Anti-Inflamma FAILURE Home Medications Medication Instructions Recorded Confirmed Type acetaminophen 325 mg tablet 650 mg PO Q6H PRN 03/11/21 08/01/21 History (Tylenol) aspirin 325 mg tablet 325 mg PO QAM 03/11/21 08/01/21 History atorvastatin 40 mg tablet (Lipitor) 40 mg PO HS 03/11/21 08/01/21 History mycophenolate sodium 180 mg 360 mg PO BID 03/11/21 08/01/21 History tablet,delayed release (Myfortic) pantoprazole 40 mg tablet,delayed 40 mg PO QAM 03/11/21 08/01/21 History release (Protonix) patiromer calcium sorbitex 16.8 8.4 g PO DAILY@1400 03/11/21 08/01/21 History gram oral powder packet (Veltassa) sulfamethoxazole 400 1 tab PO Q OTHER DAY 03/11/21 08/01/21 History mg-trimethoprim 80 mg tablet (Bactrim) tacrolimus 1 mg capsule, 3 mg PO AMPM 03/11/21 08/01/21 History immediate-release (Prograf) tamsulosin 0.4 mg capsule (Flomax) 0.4 mg PO HS 03/11/21 08/01/21 History valganciclovir 450 mg tablet 450 - 900 mg PO UD 03/11/21 08/01/21 History (Valcyte) fludrocortisone 0.1 mg tablet 0.1 mg PO DAILY 06/13/21 08/01/21 History hydralazine 10 mg tablet 10 mg PO HS 08/01/21 08/01/21 History sodium bicarbonate 650 mg tablet 1,300 mg PO DAILY 08/01/21 08/01/21 History sodium zirconium cyclosilicate 5 5 g PO DAILY 08/01/21 08/01/21 History gram oral powder packet (Lokelma) amoxicillin 875 mg-potassium 1 tab PO BID 10 Days #20 tab 08/05/21 Rx clavulanate 125 mg tablet (Augmentin) Patient History Medical History Anemia in ESRD (end-stage renal disease) At risk for fertility problems Bacteremia due to Staphylococcus aureus MSSA bacteremia 10/05/19 treated with cefazolin x 6 wks Charcot foot due to diabetes mellitus Chronic wound of extremity Complicated UTI (urinary tract infection) Diabetes mellitus type 1 with complications Diabetic nephropathy Diabetic neuropathy Diabetic retinopathy Erectile dysfunction ESRD on dialysis Fatty liver History of peritoneal dialysis Hyperkalemia Hypertension Hypertension Nephrotic syndrome due to diabetes mellitus Neurogenic bladder Peritoneal dialysis catheter in place REMOVED 11/10/19 Prolonged QT interval TIA (transient ischemic attack) Type 1 diabetes mellitus Surgical History Kidney transplanted Pancreas transplanted S/P eye surgery Family History Mother Hypertension Grandfather (Maternal) Diabetes Grandmother (Maternal) Diabetes Grandmother (Paternal) Diabetes Social History Smoking Status: Never smoker Cigarettes Per Day: 10; Second Hand Exposure: No; Hx Alcohol Use: No Hx Substance Use: No Preferred Language: Slovak Communication Ability: Effective Visual Impairment: Limited Small Parts Assembler Required: No Beliefs That Will Affect Care: None marital status: Single Current Living Situation: Alone current occupational status: employed Other Information That Helps Us Care for You: No Feels Safe at Home: Yes Assistive Devices: None Review of Systems Constitutional: as per Subjective / HPI Genitourinary: + as per Subjective / HPI Physical Exam Physical Exam: Phone consult Results & Data ([facility]) Vital Signs (Past 12 Hours) Vital Signs Temp Pulse Pulse Resp BP Pulse Ox 08/05/21 11:06 36.5 C 61 18 118/74 99 08/05/21 07:39 36.7 C 59 L 18 150/83 H 100 08/05/21 07:30 60 08/05/21 03:46 36.3 C L 60 18 146/84 H 97 PG Care Time/CCT Total # of Minutes Spent Total Time Spent with Patient: Total time spent is greater than 50% in coordination of care (as documented) at patient's floor/unit and/or counseling patient: Coding Level of Care Code 06997 Inpt Consult Level 2 Diagnoses Complicated UTI (urinary tract infection) N39.0 Immunosuppressed status D84.9 Kidney transplanted Z94.0 Incomplete bladder emptying R33.9
[2021-08-05] MEDS: SODIUM ZIRCONIUM CYCLOSILICATE 5 GM PO SCH (13:38)
--- NOTE | 2021-08-05 13:44 | Hospitalist Progress Note ---
Date of Service August 05, 2021 Assessment & Plan (1) Complicated UTI (urinary tract infection): (2) COVID-19: Plan: ASSESSMENT AND PLAN: This is a 36-year-old male who presents with urinary tract infection and also found to have COVID. Complicated urinary tract infection. Renal transplant status -- the patient has history of renal transplant, history of urinary tract infection in the past with history of Klebsiella in the past. Ultrasound showing some stenosis. Urine culture: Klebsiella, sensitive to cefepime and ceftriaxone Blood cultures: Negative so far received IV cefepime day #4 --Continue mycophenolate, tacrolimus, Bactrim, valacyclovir Nephrology consulted, appreciate their recommendations ID consulted, recommend Augmentin to complete 14-day course nurse coordinator contacted, awaiting callback Urinary retention Chronic Likely contributing to patient's recurrent Klebsiella Follow-up with urologist COVID-19 infection Status post 2 vaccines, due for booster Positive mild cough, sore throat, decreased sense of smell--> cough resolved On room air Chest x-ray clear Continue close monitoring nurse coordinator contacted Awaiting callback Status post pancreatic transplant Continue immunosuppressants as per above History of diabetes type 1 Not require insulin at this time Mild hyperkalemia. Potassium 5.0 Continue Lokelma Gastroesophageal reflux disease. Continue Protonix. Hypertension. Continue his hydralazine. Hyperlipidemia. Continue his statin. Deep venous thrombosis prophylaxis: Heparin subcutaneously. DISPOSITION:Discharge to home Follow-up with PCP in 1 week Follow-up with urologist in 1 to 2 weeks Admission and Anticipated Discharge Date Admission Date: August 01, 2021 Subjective Follow-up for Klebsiella UTI, recurrent, status post renal pancreatic transplant status, Covid positive Etc. Seen resting in bed, comfortable, no distress, in good spirits States he feels fine overall No abdominal pain, nausea vomiting, urinary problems No shortness of breath, cough, sore throat, appetite is good No other symptoms States he is ready and would like to be discharged today if possible Review of Systems Review of Systems: all noted and negative except for above Physical Exam Physical Exam: General- oriented x 3, not in distress, speaks in sentences with no effort or accessory muscle use Eyes- anicteric Neck- no JVD Lungs- clear breath sounds, no crackles or wheezes bilaterally no Heart- normal rate, regular rhythm; no murmurs Abdomen- normal bowel sounds, nondistended, soft, nontender Extremities- no pretibial edema, no calf tenderness Neuro- alert, oriented x 3; no gross focal neurologic deficits Skin- warm & dry Results & Data Results & Data ([facility]) Vital Signs (Past 12 Hours) Vital Signs Temp Pulse Pulse Resp BP Pulse Ox 08/05/21 11:06 36.5 C 61 18 118/74 99 08/05/21 07:39 36.7 C 59 L 18 150/83 H 100 08/05/21 07:30 60 08/05/21 03:46 36.3 C L 60 18 146/84 H 97 all noted and reviewed including below
--- NOTE | 2021-08-05 14:26 | Discharge Summary ---
Date of Service August 05, 2021 Admission HPI Per Admitting Provider HISTORY OF PRESENT ILLNESS: This is a 36-year-old male with past medical history significant for type 1 diabetes, end-stage renal disease because of diabetes, and status post renal transplant, status post pancreatic transplant in January of this year. Since pancreatic transplant, he is not requiring any insulin. History of hypertension, migraines, history of UTI, former smoker comes because of urinary symptoms . Having frequent urination, urgency, and some lower abdominal pain and he was found to have UTI. ER physician talked to the transplant center [facility] [place] operated by [facility] and they advised to keep the patient in [facility] and treat for UTI. The patient is COVID vaccinated with Moderna, second dose was in November 2020 and did not receive any booster dose. The patient feels weak, loss of appetite and some mild headache for the last 2 days. He thinks he may have some mild cough for the last 2 days and his COVID is positive in the ER, but he is saturating okay on room air. Denies any chest pain. Has some nausea. No earache, no runny nose, no sore throat. Some lower abdominal pain. No diarrhea or constipation. No swelling in the legs, no rash. Hemodynamically stable. Admission Exam (Per Admitting) Constitutional GENERAL: The patient is moderately built, not in acute distress. VITAL SIGNS: Temperature 36.6, pulse 89, respirations 16, blood pressure 195/97, oxygen 98% on room air. HEENT: Pupils equal, round and reactive to light. Oral mucosa moist. NECK: No JVD, no neck masses. CARDIOVASCULAR: S1 and S2 heard. Regular rate and rhythm. No murmur, no gallop. RESPIRATORY: Normal AP diameter. No accessory muscle use. No wheezing, no crackles. ABDOMEN: Soft, bowel sounds present. Mild lower abdominal discomfort, no guarding, no rigidity, no distention. CENTRAL NERVOUS SYSTEM: Cranial nerves II-XII grossly intact, nonfocal. EXTREMITIES: No edema, no erythema. Discharge Data Consultations 08/01/21 18:01 ED Decision to Admit Stat 08/02/21 09:31 Consult Nephrology Routine 08/02/21 09:32 Consult Infectious Diseases Routine 08/05/21 08:23 Consult Urology Routine Procedures Performed US renal transplant w dop HISTORY: 36 years-old Male us abd kindey llq follow up study in a patient with left lower quadrant renal transplant February 2021. Acute midline pelvic pain. COMPARISON: CT abdomen pelvis 03/11/2021 TECHNIQUE: Multiple real-time sonographic images of the urinary bladder and left lower quadrant transplant kidney were obtained assessing grayscale appearance and color flow FINDINGS: Transplanted kidney within the abdominal left lower quadrant measures 12.3 cm in length and demonstrates no hydronephrosis or suspicious mass lesion. Mild perinephric edema. Patent transplanted renal artery and vein. Elevated peak velocities are noted within the main renal artery at the anastomotic site measuring up to 264 cm/s. The left iliac artery and vein are patent. Resistive index of the left kidney measures 0.6- 0.8. Moderate circumferential urinary bladder wall thickening measures up to 8 mm. IMPRESSION: 1. No renal calculi or hydronephrosis. 2. Elevated peak systolic velocities within the left renal artery at the anastomosis are suspicious for arterial stenosis. 3. Nonspecific urinary bladder wall thickening. Correlate with urinalysis. ACT 112: Negative or not required by law. The above report was generated using voice recognition software. It may contain grammatical, syntax or spelling errors. Electronically signed by: Juanjose West M.D. 08/01/2021 7:49 PM XR chest 1V portable HISTORY: Shortness of breath. COMPARISON: Chest 06/11/2021. FINDINGS: The lungs are clear. Cardiac silhouette is normal in size. No pleural effusions. No pneumothorax. IMPRESSION: No acute process. ACT 112: Negative or not required by law. Electronically signed by: Jim Arellnao M.D. 08/01/2021 4:09 PM Hospital Course (1) Complicated UTI (urinary tract infection): (2) COVID-19: ASSESSMENT AND PLAN: This is a 36-year-old male who presents with urinary tract infection and also found to have COVID. Complicated urinary tract infection, Klebsiella, recurrent Renal transplant status -- the patient has history of renal transplant, history of urinary tract infection in the past with history of Klebsiella in the past. Ultrasound showing some stenosis. Urine culture: Klebsiella, sensitive to cefepime and ceftriaxone Blood cultures: Negative so far received IV cefepime day #4 --Continue mycophenolate, tacrolimus, Bactrim, valacyclovir Nephrology consulted, appreciate their recommendations ID consulted, recommend Augmentin to complete 14-day course department coordinator contacted, awaiting callback Urinary retention Chronic Likely contributing to patient's recurrent Klebsiella Follow-up with urologist COVID-19 infection Status post 2 vaccines, due for booster Positive mild cough, sore throat, decreased sense of smell--> cough resolved On room air Chest x-ray clear Continue close monitoring department coordinator contacted Awaiting callback Isolate for 6 more days to complete 10-day course Status post pancreatic transplant Continue immunosuppressants as per above History of diabetes type 1 Not require insulin at this time Mild hyperkalemia. Potassium 5.0 Continue Lokelma Gastroesophageal reflux disease. Continue Protonix. Hypertension. Continue his hydralazine. Hyperlipidemia. Continue his statin. Deep venous thrombosis prophylaxis: Heparin subcutaneously. DISPOSITION:Discharge to home Follow-up with PCP in 1 week Follow-up with urologist in 1 to 2 weeks plan of care discussed with patient in detail and at length all questions answered he is understanding, agreeable, comfortable with the plan of care
--- NOTE | 2021-08-06 13:31 | Electrocardiogram Report ---
Test Reason : Blood Pressure : / mmHG Vent. Rate : 060 BPM Atrial Rate : 060 BPM P-R Int : 136 ms QRS Dur : 096 ms QT Int : 444 ms P-R-T Axes : 023 025 074 degrees QTc Int : 444 ms Normal sinus rhythm Normal ECG When compared with ECG of 01-AUG-2021 15:34, Vent. rate has decreased BY 38 BPM Confirmed by Tyler Kennedy ([id number]) on 08/06/2021 1:30:48 PM Referred By: REFERRED SELF Confirmed By:Tyler Kennedy
--- NOTE | 2021-08-19 14:33 | Coding Query ---
CODING QUERY To promote full compliance with coding requirements relating to patient care, provider participation is requested in all cases of legal referee uncertainty. Please assist us with the question(s) below: Coding Question(s): Pt admitted for treatment of Klebsiella UTI based on recommendation of the Transplant Center. Pt has kidney transplant. Hyperkalemic on admission . History of Klebsiella UTI's which are drug resistant. Please document below if the function of the transplanted kidney is affected.by the complicated UTI. Please check below your response. Thanks for your help. Roberto Olivera [employer] [facility] [place] Physician's Response(s): __x The transplant kidney function was not impacted by the UTI The transplant kidney function was impacted by the UTI . Cannot clinically correlate if the transplant function was impacted by the UTI Other: please document: Principal Diagnosis: "that condition established after study, to be chiefly responsible for occasioning the admission of the patient to the hospital for care." Co-Existing Principal Diagnosis: "when two or more diagnoses equally meet the criteria for principal diagnosis as determined by the circumstances of admission, diagnostic work up, and/or therapy provided, and the Alphabetic Index, Tabular List, or another coding guideline does not provide sequencing direction, any one of the diagnoses may be sequenced first." "When the physician has documented what appears to be a current diagnosis in the body of the record, but has not included the diagnosis in the final diagnostic statement, the physician should be asked whether the diagnosis should be added." ([facility] 2 QTR90. p3-4) MONIKA
== END 2021-08-05 17:12 | disposition home or self-care (01) | DRG 689 ==
LOC: ED 15:00 → EDINP 20:49 → 2W 23:02

== ENCOUNTER 2022-07-29 08:34 | Inpatient (IN) ==
[2022-07-29] MEDS ORDERED: ACETAMINOPHEN 1,000 MG/100 ML VIAL IV STA (08:51)
[2022-07-29] MEDS ORDERED: VANCOMYCIN CONSULT ACTIVE PRN (09:06)
[2022-07-29] MEDS ORDERED: CEFEPIME 2,000 MG/20 ML VIAL IV STA (09:06)
[2022-07-29] MEDS ORDERED: VANCOMYCIN HCL 1,500 MG in SODIUM CHLORIDE 0.9% 500 ML IV ONE (09:06)
--- NOTE | 2022-07-29 09:31 | XRay Report ---
XR chest 1V portable CLINICAL HISTORY: Sepsis. COMPARISON STUDY: Chest CT June 12, 2020 and chest radiograph March 16, 2022. FINDINGS: Lung volumes are normal. There is possible opacity at the medial right lung base. There is no pneumothorax or pleural effusion. Cardiac size is stable. Mediastinal contours are normal. There i s no evidence for pulmonary edema. IMPRESSION: Possible opacity within the medial right lung base. This is likely artifactual however a focus of pneumonia cannot be excluded. Radiographic follow-up is recommended. ACT 112: Negative or not required by law. Electronically signed by: Sharan Bishop M.D. 07/29/2022 9:29 AM
[2022-07-29 09:36] LABS: Basophils # (auto) 0.04 K/uL (0-0.2); Basophils % (auto) 0.5 %; Eosinophils # (auto) 0.16 K/uL (0-0.50); Eosinophils % (auto) 1.9 %; Hematocrit (blood only) 47.4 % (40.1-51.0); Immature Granulocytes # (auto) 0.03 K/uL (0.00-0.02); Immature Granulocytes % (auto) 0.4 %; Lymphocytes # (auto) 2.14 K/uL (1.2-3.4); Lymphocytes % (auto) 25.5 %; Mean Corpuscular Hemoglobin 31.9 pg (25.0-34.0); Mean Corpuscular Hgb Conc 33.8 g/dL (32.0-36.0); Mean Corpuscular Volume 94.6 fL (80.0-100.0); Mean Platelet Volume 10.2 fL (9.4-12.4); Monocytes # (auto) 1.12 K/uL (0.24-0.82); Monocytes % (auto) 13.3 %; Neutrophils # (auto) 4.91 K/uL (1.4-6.5); Neutrophils % (auto) 58.4 %; Platelet Count 163 K/uL (130-400); RDW Coefficient of Variation 13.2 % (11.5-14.5); Red Blood Count 5.01 M/uL (4.63-6.08)
[2022-07-29] MEDS: SODIUM CHLORIDE 0.9% 1000ML 1,000 ML IV SCH (09:43)
[2022-07-29 09:54] LABS: Base Excess VBG -5.2 mEq/L; HCO3 VBG 20 mmol/L; Oxygen Saturation VBG 84.2 %; PCO2 VBG 37 mmHg (38-50); PO2 VBG 51 mmHg; pH VBG 7.34 (7.36-7.41)
--- NOTE | 2022-07-29 10:00 | Emergency Department Note ---
Impression & Plan Influenza A, Immunosuppressed status, SIRS (systemic inflammatory response syndrome), History of kidney transplant, History of pancreas transplant ED Provider Note NAME: SAVAGE KIDD AGE: 37 SEX: M ARRIVES VIA: Walk-In INFORMANT: Patient ED PROVIDER(S): Barry Townsend MD CHIEF COMPLAINT: Fever, cough, sob PLAN: Disposition: Admit MEDICAL DECISION MAKING: The patient is a pleasant 37-year-old gentleman with a past medical history of kidney transplant and pancreas transplant in January of 2021 on CellCept and Prograf who follows at [facility] who presents to the emergency department with fever, cough congestion and shortness of breath over the past 24 hours. He reports he called his transplant team was referred to emergency department. He denies nausea, vomiting, diarrhea or urinary symptoms. He reports his kidney function to his knowledge is normal since his transplant. He understands his diabetes which led to his nephrotic syndrome and renal failure has resolved after his pancreas transplant. He denies n/v/d. He reports decreased oral intake however. On arrival the patient is fatigued, uncomfortable but no acute distress, febrile to 39.3, heart rate in the 100s and blood pressure 170/100s. He appears clinically dry. He has wheezes and rhonchi bilateral lung rivas. EKG without overt acute ischemia. CXR with infiltrate vs artifact of right medial lung base. WBC, H/H and platelets within normal limits. VBG unremarkable. Chemistry without metabolic acidosis. Creatinine 1.7 within prior range of values. BUN/c reatinine> 20 consistent with patient's clinically dry appearance. Lactic acid 0.4, within normal limits. Magnesium 1.6 repletion provided. LFTs unremarkable. High-sensitivity troponin 9.0, within normal limits. Lipase within normal limits. Procalcitonin is not elevated. Influenza A PCR was p ositive. COVID-19 PCR and RSV was negative. Patient was feeling improved following IV fluid hydration, APAP. Guaifenesin, Combivent. He was treated empirically on arrival given immunocompromise status with cefepime and vancomycin. Tamiflu additionally ordered. Case was discussed with [facility] transplant nephrology, Dr. Gonzalez. Agrees with treatment per above. Does not feel patient requires transfer to their facility at this time and patient can be admitted here. He will be availab le for consultation by admitting team via phone. Appreciate recommendations to hold immunosuppressive therapy until improving. Eva Roberts, Gwendolyn PAC, and Dr. Candelario Snow hospitalist who will evaluate the patient for admission. Triage Nursing notes reviewed and agree them. Prior medical records reviewed Vital Signs: reviewed Differential diagnosis: Viral syndrome, otitis, pharyngitis, pneumonia, influenza, meningitis, urinary tract infection, sepsis, bacteremia, as well as other pathologies. ER treatment provided: See below. Diagnostics interpreted by me: ECG: Normal sinus rhythm, 93 bpm, no ectopy, no overt ST ovation depression, QTC 440 QRS 440. Cardiac Monitoring: An order for continuous cardiac monitoring was placed and demonstrated Normal sinus rhythm, 93 bpm, no ectopy Laboratory studies: See below Imaging studies: See below Consultation(s): [facility] transplant nephrology, Dr. Gonzalez. HPI: The patient is a pleasant 37-year-old gentleman with a past medical history of kidney transplant and pancreas transplant in January of 2021 on CellCept and Prograf who follows at [facility] who presents to the emergency department with fever, cough congestion and shortness of breath over the past 24 hours. He reports he called his transplant team was referred to emergency department. He denies nausea, vomiting, diarrhea or urinary symptoms. He reports his kidney function to his knowledge is normal since his transplant. He understands his diabetes which led to his nephrotic syndrome and renal failure has resolved after his pancreas transplant. He denies n/v/d. He reports decreased oral intake however. ROS: See above HPI for pertinent positives & negatives. A total of 10 systems reviewed and were otherwise negative. VITALS:See Below PHYSICAL EXAMINATION: GENERAL: Awake, alert, fatigued-appearing, in no distress HENT: Normocephalic, atraumatic. Boggy nasal turbinates. Oropharynx with dry mucous membranes and otherwise unremarkable. EYES: Normal conjunctiva. Sclera non-icteric. NECK: Supple. No nuchal rigidity. FROM. No JVD. RESPIRATORY: Wheezes or rhonchi bilateral lung rivas without increased WOB. CARDIAC: Tachycardic rate, normal rhythm. Extremities warm and well perfused. P ulses equal. ABDOMEN: Soft, non-distended. No tenderness to palpation. No rebound or guarding. No masses. RECTAL: Deferred. MUSCULOSKELETAL: Chest examination reveals no tenderness. The back is symmet rical on inspection without obvious abnormality. There is no CVA tenderness to palpation. No joint edema. LOWER EXTREMITIES: Calves are equal size bilaterally and non-tender. No edema. No discoloration. NEURO: Normal sensorium. No sensory or motor deficits noted. SKIN: No rash or jaundice noted. ED COURSE: Critical Care: I have personally spent greater than 35 minutes of critical care time in the direct management of this patient. This includes bedside care, interpretation of diagnostic studies, and testing, discussion with consultants, patient, and family members, and other required patient management activities. This 35 minutes is in excess of all separately billable procedures. Barry Townsend MD Past Med/Surg History Medical History Anemia in ESRD (end-stage renal disease) At risk for fertility problems Bacteremia due to Staphylococcus aureus MSSA bacteremia 10/05/19 treated with cefazolin x 6 wks Charcot foot due to diabetes mellitus Chronic wound of extremity Complicated UTI (urinary tract infection) Diabetes mellitus type 1 with complications Diabetic retinopathy Erectile dysfunction ESRD on dialysis Fatty liver History of peritoneal dialysis Hyperkalemia Hypertension Nephrotic syndrome due to diabetes mellitus Peritoneal dialysis catheter in place REMOVED 11/10/19 Prolonged QT interval TIA (transient ischemic attack) Surgical History Kidney transplanted January 2021-[facility] Pancreas transplanted January 2021-[facility] S/P eye surgery Family History Mother Hypertension Grandfather (Maternal) Diabetes Grandmother (Maternal) Diabetes Grandmother (Paternal) Diabetes Social History Smoking Status: Former smoker Tobacco Type: Cigarettes Cigarettes Per Day: 10; Second Hand Exposure: No; Hx Alcohol Use: No Hx Substance Use: No Preferred Language: Pashto Communication Ability: Effective Visual Impairment: Limited Clerk Rating Required: No Beliefs That Will Affect Care: None marital status: Single Current Living Situation: Alone current occupational status: employed Other Information That Helps Us Care for You: No Feels Safe at Home: Yes Safety Concerns: Feels Safe At This Time Assistive Devices: None and Glasses Allergies Allergies Allergy/AdvReac Type Severity Reaction Status Date / Time NSAIDS (Non-Steroidal AdvReac Unknown RENAL Verified 03/16/22 18:35 Anti-Inflamma FAILURE Home Meds Home Medications Medication Instructions Recorded Confirmed tacrolimus 1 mg capsule, 3 mg PO DAILY 03/11/21 07/29/22 immediate-release (Prograf) aspirin 325 mg tablet,delayed 325 mg PO DAILY 07/29/22 07/29/22 release citalopram 20 mg tablet 20 mg PO DAILY 07/29/22 07/29/22 fludrocortisone 0.1 mg tablet 0.1 mg PO DAILY 07/29/22 07/29/22 hydralazine 10 mg tablet 10 mg PO HS 07/29/22 07/29/22 hydroxyzine HCl 25 mg tablet 25 mg PO Q6H PRN Anxiety 07/29/22 07/29/22 pantoprazole 40 mg tablet,delayed 40 mg PO DAILY 07/29/22 07/29/22 release tacrolimus 1 mg capsule, 2 mg PO HS 07/29/22 07/29/22 immediate-release tamsulosin 0.4 mg capsule 0.4 mg PO HS 07/29/22 07/29/22 Results & Data (ED) Vital Signs Vital Signs - 24 hr 07/29/22 08:45 07/29/22 09:08 07/29/22 09:08 Temperature 39.3 C H Temperature Source Temporal Artery Scan Pulse Rate 101 H Pulse Rate [Apical] 93 H Pulse Rhythm [Apical] Respiratory Rate 18 40 H Respiratory Effort / Characteristics Short of Breath Respiratory Depth Blood Pressure 146/90 H Blood Pressure [Left Arm] 173/108 H Blood Pressure Mean 108 Blood Pressure Mean [Left Arm] 129 Pulse Oximetry 98 97 Oxygen Delivery Method Room Air Room Air Room Air Sepsis Recent Fever Within 48 Hours Yes Sepsis New/Unexplained Change in Mental Status N/A Sepsis Action Taken by Nursing No Action Required 07/29/22 09:09 07/29/22 09:20 07/29/22 10:08 Temperature Temperature Source Pulse Rate Pulse Rate [Apical] 91 H 100 H 90 Pulse Rhythm [Apical] Regular Respiratory Rate 25 H 22 19 Respiratory Effort / Characteristics Short of Breath Short of Breath Respiratory Depth Normal Blood Pressure Blood Pressure [Left Arm] 173/108 H Blood Pressure Mean Blood Pressure Mean [Left Arm] 129 Pulse Oximetry 95 93 94 Oxygen Delivery Method Room Air Room Air Room Air Sepsis Recent Fever Within 48 Hours Sepsis New/Unexplained Change in Mental Status Sepsis Action Taken by Nursing 07/29/22 10:34 07/29/22 12:13 Temperature Temperature Source Pulse Rate Pulse Rate [Apical] 102 H 95 H Pulse Rhythm [Apical] Regular Respiratory Rate 18 16 Respiratory Effort / Characteristics Respiratory Depth Normal Blood Pressure Blood Pressure [Left Arm] 173/108 H Blood Pressure Mean Blood Pressure Mean [Left Arm] 129 Pulse Oximetry 92 95 Oxygen Delivery Method Sepsis Recent Fever Within 48 Hours Sepsis New/Unexplained Change in Mental Status Sepsis Action Taken by Nursing Laboratory Data Attestation: I reviewed the patient's lab results. Result diagrams: 07/29/22 09:10 07/29/22 20:28 Lab Results 07/29/22 07/29/22 07/29/22 Range/Units 09:10 09:10 09:10 WBC 8.40 (4.8-10.8) K/ul RBC 5.01 (4.63-6.08) M/uL Hgb 16.0 (14.0-18.0) g/dl Hct 47.4 (40.1-51.0) % MCV 94.6 (80.0-100.0) fL MCH 31.9 (25.0-34.0) pg MCHC 33.8 (32.0-36.0) g/dL RDW Std Deviation 46.0 (36.4-46.3) fL RDW Coeff of Ralph 13.2 (11.5-14.5) % Plt Count 163 (130-400) K/uL MPV 10.2 (9.4-12.4) fL Immature Gran % (Auto) 0.4 % Neut % (Auto) 58.4 % Lymph % (Auto) 25.5 % [place] % (Auto) 13.3 % Eos % (Auto) 1.9 % Baso % (Auto) 0.5 % Neut # (Auto) 4.91 (1.4-6.5) K/uL Lymph # (Auto) 2.14 (1.2-3.4) K/uL [place] # (Auto) 1.12 H (0.24-0.82) K/uL Eos # (Auto) 0.16 (0-0.50) K/uL Baso # (Auto) 0.04 (0-0.2) K/uL Immature Gran # (Auto) 0.03 H (0.00-0.02) K/uL VBG pH (7.36-7.41) VBG pCO2 (38-50) mmHg VBG pO2 mmHg VBG HCO3 mmol/L VBG O2 Saturation % VBG Base Excess mEq/L Sodium 130 L (136-145) mmol/L Potassium 5.2 H (3.5-5.1) mmol/L Chloride 103 (98-107) mmol/L Carbon Dioxide 20 L (21-32) mmol/L Anion Gap 7 (3-11) BUN 38 H (6-23) mg/dl Creatinine 1.74 H (0.6-1.4) mg/dl Est Cr Clr Drug Dosing 52.8 ml/min Est GFR ( Amer) 56.4 ml/min Est GFR (Non-Af Amer) 48.7 ml/min BUN/Creatinine Ratio 21.8 H (10-20) Glucose 100 H (70-99(Fasting)) mg/dl Lactate (0.4-2.0) mmol/L Calcium 9.7 (8.5-10.1) mg/dl Phosphorus 2.2 L Magnesium 1.6 L (1.7-2.4) mg/dl Total Bilirubin 0.4 (0.2-1.0) mg/dl Direct Bilirubin 0.1 (0-0.2) mg/dl AST 24 (13-39) U/L ALT 22 (7-52) U/L Alkaline Phosphatase 93 (34-104) U/L Troponin I High Sens 9.0 (0-20) pg/ml Total Protein 8.6 H (6.0-8.3) gm/dl Albumin 3.9 (3.4-5.0) gm/dl Lipase 29 Procalcitonin 0.21 (0-0.5) ng/ml SARS-CoV-2 (PCR) (Negative) Influenza Type A (PCR) (Neg) Influenza Type B (PCR) (Neg) RSV (RT-PCR) (Neg) 07/29/22 07/29/22 07/29/22 Range/Units 09:10 09:10 09:37 WBC (4.8-10.8) K/ul RBC (4.63-6.08) M/uL Hgb (14.0-18.0) g/dl Hct (40.1-51.0) % MCV (80.0-100.0) fL MCH (25.0-34.0) pg MCHC (32.0-36.0) g/dL RDW Std Deviation (36.4-46.3) fL RDW Coeff of Ralph (11.5-14.5) % Plt Count (130-400) K/uL MPV (9.4-12.4) fL Immature Gran % (Auto) % Neut % (Auto) % Lymph % (Auto) % [place] % (Auto) % Eos % (Auto) % Baso % (Auto) % Neut # (Auto) (1.4-6.5) K/uL Lymph # (Auto) (1.2-3.4) K/uL [place] # (Auto) (0.24-0.82) K/uL Eos # (Auto) (0-0.50) K/uL Baso # (Auto) (0-0.2) K/uL Immature Gran # (Auto) (0.00-0.02) K/uL VBG pH (7.36-7.41) VBG pCO2 (38-50) mmHg VBG pO2 mmHg VBG HCO3 mmol/L VBG O2 Saturation % VBG Base Excess mEq/L Sodium (136-145) mmol/L Potassium (3.5-5.1) mmol/L Chloride (98-107) mmol/L Carbon Dioxide (21-32) mmol/L Anion Gap (3-11) BUN (6-23) mg/dl Creatinine (0.6-1.4) mg/dl Est Cr Clr Drug Dosing ml/min Est GFR ( Amer) ml/min Est GFR (Non-Af Amer) ml/min BUN/Creatinine Ratio (10-20) Glucose (70-99(Fasting)) mg/dl Lactate 0.4 (0.4-2.0) mmol/L Calcium (8.5-10.1) mg/dl Phosphorus Cancelled Magnesium (1.7-2.4) mg/dl Total Bilirubin (0.2-1.0) mg/dl Direct Bilirubin (0-0.2) mg/dl AST (13-39) U/L ALT (7-52) U/L Alkaline Phosphatase (34-104) U/L Troponin I High Sens (0-20) pg/ml Total Protein (6.0-8.3) gm/dl Albumin (3.4-5.0) gm/dl Lipase Cancelled Procalcitonin (0-0.5) ng/ml SARS-CoV-2 (PCR) NEGATIVE (Negative) Influenza Type A (PCR) Positive A* (Neg) Influenza Type B (PCR) Negative (Neg) RSV (RT-PCR) Negative (Neg) 07/29/22 Range/Units 09:37 WBC (4.8-10.8) K/ul RBC (4.63-6.08) M/uL Hgb (14.0-18.0) g/dl Hct (40.1-51.0) % MCV (80.0-100.0) fL MCH (25.0-34.0) pg MCHC (32.0-36.0) g/dL RDW Std Deviation (36.4-46.3) fL RDW Coeff of Ralph (11.5-14.5) % Plt Count (130-400) K/uL MPV (9.4-12.4) fL Immature Gran % (Auto) % Neut % (Auto) % Lymph % (Auto) % [place] % (Auto) % Eos % (Auto) % Baso % (Auto) % Neut # (Auto) (1.4-6.5) K/uL Lymph # (Auto) (1.2-3.4) K/uL [place] # (Auto) (0.24-0.82) K/uL Eos # (Auto) (0-0.50) K/uL Baso # (Auto) (0-0.2) K/uL Immature Gran # (Auto) (0.00-0.02) K/uL VBG pH 7.34 L (7.36-7.41) VBG pCO2 37 L (38-50) mmHg VBG pO2 51 mmHg VBG HCO3 20 mmol/L VBG O2 Saturation 84.2 % VBG Base Excess -5.2 mEq/L Sodium (136-145) mmol/L Potassium (3.5-5.1) mmol/L Chloride (98-107) mmol/L Carbon Dioxide (21-32) mmol/L Anion Gap (3-11) BUN (6-23) mg/dl Creatinine (0.6-1.4) mg/dl Est Cr Clr Drug Dosing ml/min Est GFR ( Amer) ml/min Est GFR (Non-Af Amer) ml/min BUN/Creatinine Ratio (10-20) Glucose (70-99(Fasting)) mg/dl Lactate (0.4-2.0) mmol/L Calcium (8.5-10.1) mg/dl Phosphorus Magnesium (1.7-2.4) mg/dl Total Bilirubin (0.2-1.0) mg/dl Direct Bilirubin (0-0.2) mg/dl AST (13-39) U/L ALT (7-52) U/L Alkaline Phosphatase (34-104) U/L Troponin I High Sens (0-20) pg/ml Total Protein (6.0-8.3) gm/dl Albumin (3.4-5.0) gm/dl Lipase Procalcitonin (0-0.5) ng/ml SARS-CoV-2 (PCR) (Negative) Influenza Type A (PCR) (Neg) Influenza Type B (PCR) (Neg) RSV (RT-PCR) (Neg) Administered Medications Acetaminophen (Acetaminophen 325 Mg Tab) 650 mg PO Q4H PRN PRN Reason: Pain or Fever Stop: 08/28/22 15:57 Last Admin: 07/29/22 18:16 Dose: 650 mg Documented By: MJN Fluticasone Propionate (Fluticasone Propionate Na Spr 16 Gm Btl) 2 sprays ZARINA Q24H EMERY Stop: 08/28/22 15:57 Last Admin: 07/29/22 17:20 Dose: 2 sprays Documented By: QGV Hydralazine HCl (Hydralazine 10 Mg Tab) 10 mg PO HS EMERY Stop: 08/28/22 20:59 Last Admin: 07/29/22 21:01 Dose: 10 mg Documented By: EEBernardo Cefepime HCl 2,000 mg/ Syringe 20 mls @ 5 mls/min IV Q12H [facility]; Protocol Stop: 08/05/22 20:59 Last Admin: 07/29/22 20:59 Dose: 5 mls/min Documented By: STEPHEN Lactated Ringer's (Lr) 1,000 mls @ 80 mls/hr IV .[id number] [facility] Stop: 07/30/22 17:59 Last Admin: 07/29/22 17:10 Dose: 80 mls/hr Documented By: QGV Tacrolimus (Tacrolimus 1 Mg Cap) 2 mg PO EMERY Stop: 08/28/22 20:59 Last Admin: 07/29/22 21:01 Dose: 2 mg Documented By: STEPHEN Tamsulosin HCl (Tamsulosin Hcl 0.4 Mg Cap) 0.4 mg PO EMERY Stop: 08/28/22 20:59 Last Admin: 07/29/22 21:01 Dose: 0.4 mg Documented By: STEPHEN Discontinued Medications Acetaminophen/Codeine Phosphate (Acetaminophen W/Codeine #3 1 Tab) 1 tab PO NOW ONE Stop: 07/29/22 20:49 Last Admin: 07/29/22 20:59 Dose: 1 tab Documented By: STEPHEN Albuterol (Ipratropium [place]/Albuterol Respimat Inh) 2 puffs INH NOW STA Stop: 07/29/22 10:03 Last Admin: 07/29/22 10:15 Dose: 2 puffs Documented By: LEANNE Guaifenesin (Guaifenesin 600 Mg Tabcr) 600 mg PO NOW STA Stop: 07/29/22 10:03 Last Admin: 07/29/22 10:15 Dose: 600 mg Documented By: LEANNE Guaifenesin/Codeine Phosphate (Guaifenesin/Codeine 100mg/10mg 5ml Udc) 10 ml PO NOW STA Stop: 07/29/22 14:48 Last Admin: 07/29/22 15:46 Dose: 10 ml Documented By: CANDIE Acetaminophen (Ofirmev) 1,000 mg in 100 mls @ 400 mls/hr IV NOW STA Stop: 07/29/22 09:05 Last Infusion: 07/29/22 09:43 Dose: 0 mls/hr Documented By: Admin: 07/29/22 09:06 Dose: 400 mls/hr Documented By: LEANNE Sodium Chloride (Nss 1000ml) 1,000 mls @ 999 mls/hr IV .Q1H1M EMERY Stop: 07/29/22 11:15 Last Infusion: 07/29/22 10:36 Dose: 0 mls/hr Documented By: Admin: 07/29/22 09:43 Dose: 999 mls/hr Documented By: Infusion: 07/29/22 09:43 Dose: 999 mls/hr Documented By: Admin: 07/29/22 09:43 Dose: 999 mls/hr Documented By: KV Cefepime HCl (Maxipime) 2,000 mg in 20 mls @ 5 mls/min IV NOW STA; Protocol Stop: 07/29/22 09:09 Last Admin: 07/29/22 09:44 Dose: 5 mls/min Documented By: KV Vancomycin HCl 1,500 mg/ (Sodium Chloride) 530 mls @ 200 mls/hr IV NOW ONE Stop: 07/29/22 11:44 Last Admin: 07/29/22 09:44 Dose: 200 mls/hr Documented By: KV Magnesium Sulfate/Dextrose (Magnesium Sulfate / D5w) 1 gm in 100 mls @ 100 mls/hr IV Q1H EMERY Stop: 07/29/22 12:42 Last Infusion: 07/29/22 14:04 Dose: 0 mls/hr Documented By: Admin: 07/29/22 12:45 Dose: 100 mls/hr Documented By: Infusion: 07/29/22 12:44 Dose: 0 mls/hr Documented By: Admin: 07/29/22 11:47 Dose: 100 mls/hr Documented By: RSVivian Labetalol HCl (Labetalol Hcl Iv 5 Mg/Ml 20ml) 10 mg IV NOW STA Stop: 07/29/22 16:37 Last Admin: 07/29/22 17:07 Dose: 10 mg Documented By: QGV Co-signed By: CANDIE Oseltamivir Phosphate (Oseltamivir Phosphate 75 Mg Cap) 75 mg PO NOW STA; Protocol Stop: 07/29/22 11:05 Last Admin: 07/29/22 11:47 Dose: 75 mg Documented By: RSL Sodium Chloride (Sodium Chloride 0.65% Na Soln 45 Ml ([place])) 2 sprays NA NOW ONE Stop: 07/29/22 10:03 Last Admin: 07/29/22 10:15 Dose: 2 sprays Documented By: KV Imaging Data Radiologist's Impression: Chest X-Ray 07/29/22 08:50 XR chest 1V portable CLINICAL HISTORY: Sepsis. COMPARISON STUDY: Chest CT June 12, 2020 and chest radiograph March 16, 2022. FINDINGS: Lung volumes are normal. There is possible opacity at the medial right lung base. There is no pneumothorax or pleural effusion. Cardiac size is stable. Mediastinal contours are normal. There is no evidence for pulmonary edema. IMPRESSION: Possible opacity within the medial right lung base. This is likely artifactual however a focus of pneumonia cannot be excluded. Radiographic follow-up is recommended. ACT 112: Negative or not required by law. Electronically signed by: Sharan Bishop M.D. 07/29/2022 9:29 AM Discharge Plan Visit Data Chief Complaint: Shortness of Breath/Dyspnea Stated Complaint: SHORTNESS OF BREATH ED Provider: Barry Townsend Discharge Problem: Influenza A, Immunosuppressed status, SIRS (systemic inflammatory response syndrome), History of kidney transplant, History of pancreas transplant Patient Disposition: Admitted As Inpatient Discharge Instructions Interventions: ED Discharge Assessment Last Done: 07/29/22 15:55
[2022-07-29] MEDS ORDERED: SODIUM CHLORIDE 0.65% NA SOLN 45 ML (OCEAN) ONE (10:02)
[2022-07-29] MEDS ORDERED: IPRATROPIUM BROMIDE/ALBUTEROL respimat INH INH STA (10:02)
[2022-07-29] MEDS ORDERED: guaiFENesin 600 MG TABCR PO STA (10:02)
[2022-07-29 10:09] LABS: Influenza B virus by PCR Negative (Neg); RSV by PCR Negative (Neg); SARS CoV2 RNA(COVID-19) Ceph NEGATIVE (Negative)
[2022-07-29 10:15] LABS: Albumin Level 3.9 gm/dl (3.4-5.0); BUN Creatinine Ratio 21.8 (10-20); Bilirubin Direct 0.1 mg/dl (0-0.2); Bilirubin,Total 0.4 mg/dl (0.2-1.0); Calcium 9.7 mg/dl (8.5-10.1); Creatinine Clr Calc Pharmacy 52.8 ml/min; Est GFR (African American) 56.4 ml/min; Est GFR (Non-African American) 48.7 ml/min; Magnesium 1.6 mg/dl (1.7-2.4); Phosphorus 2.2 mg/dl (2.5-4.9); Potassium 5.2 mmol/L (3.5-5.1); Total Protein 8.6 gm/dl (6.0-8.3)
[2022-07-29 10:35] LABS: Influenza A virus by PCR Positive (Neg)
[2022-07-29] MEDS ORDERED: OSELTAMIVIR PHOSPHATE 75 MG CAP PO STA (11:04)
[2022-07-29] MEDS: MAGNESIUM SULFATE / D5W 1 GM/100 ML BAG IV SCH ×2 (11:47→12:45)
--- NOTE | 2022-07-29 14:18 | History & Physical Report ---
Date of Service July 29, 2022 Assessment & Plan (1) Influenza: Plan: Cont tamiflu and supportive care including antitussive therapy and Flonase for post nasal drip. Droplet precautions. (2) Pneumonia: Plan: empically continue Vanc, Cefepime in setting of immunosuppression. 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 Continue tacrolimus for now while awaiting a call back from patient's transplant team. (4) Hypertension: Plan: Chronic, on hydralazine 10 mg p.o. nightly. Currently uncontrolled in the ER. Giving dose of labetalol now. Continue monitoring closely in the PCU. It is noted that uncontrolled hypertension is a contraindication to tacrolimus. (5) Hyponatremia: Plan: Patient reports heavy intake of water including approximately 620 ounce bottles of water daily over these last few days. Hyponatremia may be a reflection of polydipsia versus poor p.o. intake. Continue to monitor BMP daily and he did receive 2 L of normal saline in the ER. We will continue light IV fluids until he is eating again. Urine studies ordered. (6) Pancreas transplanted: Plan: He is no longer afflicted with diabetes. (7) Kidney transplanted: Plan: Nephrology consult ordered while patient is in the hospital. It is noted that studies have shown a decrease in mortality in solid organ transplant patients who have infectious disease consultations. Consider this early if no improvement with initial therapies. (8) DVT prophylaxis: Plan: Heparin Full Code Dispo-to PCU DO [facility] Hospitalist History of Present Illness Chief Complaint: dyspnea Primary Care Provider: Ciro Singh MD Patient is a 37-year-old man with history of kidney transplant and pancreas transplant in January 2021 on CellCept and Prograf who follows at [facility] who presented to the department with fever cough congestion and shortness of breath for the last 24 hours. He denied any nausea, vomiting, diarrhea or urinary symptoms. Work-up in the ER revealed a creatinine at baseline and his transplant team is aware of his presentation here to this facility. They are comfortable with him staying here for now. Fatigue is reported and he is febrile to 39.3 C. Heart rate is in the low 100s and blood pressure is in the 170s over 100s. He received Tylenol 2 L of normal saline, guaifenesin 600 p.o., magnesium and oseltamivir. He was also given empiric antibiotics with vancomycin and cefepime given his Immunosuppressed status. Low magnesium was replaced. fevers (99-102F)/chills +coughing worse in the evening. has been taking Prograf-not this am headache has been taking tylenol last couple of days no vomiting, diarrhea has not been eating much Allergies Allergy/AdvReac Type Severity Reaction Status Date / Time NSAIDS (Non-Steroidal AdvReac Unknown RENAL Verified 03/16/22 18:35 Anti-Inflamma FAILURE Home Medications Medication Instructions Recorded Confirmed Type tacrolimus 1 mg capsule, 3 mg PO DAILY 03/11/21 07/29/22 History immediate-release (Prograf) aspirin 325 mg tablet,delayed 325 mg PO DAILY 07/29/22 07/29/22 History release citalopram 20 mg tablet 20 mg PO DAILY 07/29/22 07/29/22 History fludrocortisone 0.1 mg tablet 0.1 mg PO DAILY 07/29/22 07/29/22 History hydralazine 10 mg tablet 10 mg PO HS 07/29/22 07/29/22 History hydroxyzine HCl 25 mg tablet 25 mg PO Q6H PRN Anxiety 07/29/22 07/29/22 History pantoprazole 40 mg tablet,delayed 40 mg PO DAILY 07/29/22 07/29/22 History release tacrolimus 1 mg capsule, 2 mg PO HS 07/29/22 07/29/22 History immediate-release tamsulosin 0.4 mg capsule 0.4 mg PO HS 07/29/22 07/29/22 History Past Med/Surg History Medical History (Updated 07/29/22 @ 17:00 by Alisha Palomino DO) Anemia in ESRD (end-stage renal disease) At risk for fertility problems Bacteremia due to Staphylococcus aureus MSSA bacteremia 10/05/19 treated with cefazolin x 6 wks Charcot foot due to diabetes mellitus Chronic wound of extremity Complicated UTI (urinary tract infection) Diabetes mellitus type 1 with complications Diabetic retinopathy Erectile dysfunction ESRD on dialysis Fatty liver History of peritoneal dialysis Hyperkalemia Hypertension Nephrotic syndrome due to diabetes mellitus Peritoneal dialysis catheter in place REMOVED 11/10/19 Prolonged QT interval TIA (transient ischemic attack) Surgical History (Updated 07/29/22 @ 14:19 by Alisha Palomino DO) Kidney transplanted January 2021-[facility] Pancreas transplanted January 2021-[facility] S/P eye surgery Family History Mother Hypertension Grandfather (Maternal) Diabetes Grandmother (Maternal) Diabetes Grandmother (Paternal) Diabetes Social History Smoking Status: Former smoker Tobacco Type: Cigarettes Cigarettes Per Day: 10; Second Hand Exposure: No; Hx Alcohol Use: No Hx Substance Use: No Preferred Language: [place]an Communication Ability: Effective Visual Impairment: Limited 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 Physical Exam Physical Exam: CONSTITUTIONAL: WNWD, vitals as above, generally well- appearing, NAD EYES: PERRL, normal conjunctivae, no scleral icterus ENT: external ear and nose normal, oropharynx clear, enlarged bilateral tonsils without exudates present. No submandibular LAD, sinus TTP in maxillary area. NECK: trachea midline RESPIRATORY: clear to auscultation bilaterally, no crackles, rales or wheezes, normal respiratory effort CARDIOVASCULAR: regular rate and rhythm, S1 and 2 heard without murmurs, gallops or rubs, no JVD, no peripheral edema CHEST: inspection of chest was normal GASTROINTESTINAL: soft, nontender, well healed horizontal scar. MUSCULOSKELETAL: strength 5/5 throughout, head is normocephalic and atraumatic SKIN: warm and dry, no rashes, tattoo ehsan wings on back NEUROLOGIC: CN 2-12 grossly intact, no sensory deficit, normal cognition, normal speech, no tremor PSYCHIATRIC: alert cooperative and oriented to person, place and time. Euthymic mood, makes good eye contact, language grossly intact, recent and remote memory grossly intact. LYMPHATIC: no LAD Results & Data Results & Data ([facility]) Vital Signs (Past 12 Hours) Vital Signs Temp Pulse Pulse Resp BP BP Pulse Ox 07/29/22 12:13 95 H 16 95 07/29/22 10:34 102 H 18 173/108 H 92 07/29/22 10:08 90 19 173/108 H 94 07/29/22 09:20 100 H 22 93 07/29/22 09:09 91 H 25 H 95 07/29/22 09:08 07/29/22 09:08 93 H 40 H 173/108 H 97 07/29/22 08:45 39.3 C H 101 H 18 146/90 H 98 O2 Del Method 07/29/22 12:13 07/29/22 10:34 07/29/22 10:08 Room Air 07/29/22 09:20 Room Air 07/29/22 09:09 Room Air 07/29/22 09:08 Room Air 07/29/22 09:08 Room Air 07/29/22 08:45 Room Air Laboratory Results Short CBC 07/29/22 Range/Units 09:10 WBC 8.40 (4.8-10.8) K/ul Hgb 16.0 (14.0-18.0) g/dl Hct 47.4 (40.1-51.0) % Plt Count 163 (130-400) K/uL BMP 07/29/22 09:10 Sodium 130 L Potassium 5.2 H Chloride 103 Carbon Dioxide 20 L BUN 38 H Creatinine 1.74 H Glucose 100 H Calcium 9.7 Liver Function 07/29/22 Range/Units 09:10 Total Bilirubin 0.4 (0.2-1.0) mg/dl Direct Bilirubin 0.1 (0-0.2) mg/dl AST 24 (13-39) U/L ALT 22 (7-52) U/L Alkaline Phosphatase 93 (34-104) U/L Albumin 3.9 (3.4-5.0) gm/dl Diagnostic Findings Chest X-Ray 07/29/22 08:50 XR chest 1V portable CLINICAL HISTORY: Sepsis. COMPARISON STUDY: Chest CT June 12, 2020 and chest radiograph March 16, 2022. FINDINGS: Lung volumes are normal. There is possible opacity at the medial right lung base. There is no pneumothorax or pleural effusion. Cardiac size is stable. Mediastinal contours are normal. There is no evidence for pulmonary edema. IMPRESSION: Possible opacity within the medial right lung base. This is likely artifactual however a focus of pneumonia cannot be excluded. Radiographic follow-up is recommended. ACT 112: Negative or not required by law. Electronically signed by: Sharan Bishop M.D. 07/29/2022 9:29 AM Code Status & VTE Plan VTE Prophylaxis Plan VTE Prophylaxis will be ordered: Yes (1) Pneumonia Pneumonia type: due to unspecified organism Laterality: right Lung location: lower lobe of lung Qualified Code(s): J18.9 - Pneumonia, unspecified organism
--- NOTE | 2022-07-29 14:23 | Electrocardiogram Report ---
Test Reason : Blood Pressure : / mmHG Vent. Rate : 093 BPM Atrial Rate : 093 BPM P-R Int : 120 ms QRS Dur : 084 ms QT Int : 354 ms P-R-T Axes : 065 067 084 degrees QTc Int : 440 ms Normal sinus rhythm Poor R wave progression, consider anterior NE vs. lead placement vs. LVH Abnormal ECG When compared with ECG of 01-SEP-2021 10:43, T wave inversion now evident in Anterior leads Confirmed by Samuel Agosto ([id number]) on 07/29/2022 2:23:06 PM Referred By: REFERRED SELF Confirmed By:Samuel Agosto
[2022-07-29] MEDS ORDERED: guaiFENesin/CODEINE 100MG/10MG 5ML UDC PO STA (14:47)
[2022-07-29] MEDS ORDERED: ONDANSETRON INJ 2 MG/ML 2 ML VIAL IV PRN (15:58)
[2022-07-29] MEDS ORDERED: hydrOXYzine HCl 25 MG TAB PO PRN (15:58)
[2022-07-29] MEDS ORDERED: POLYETHYLENE (MIRALAX) 17 GM PACK PO PRN (15:58)
[2022-07-29] MEDS ORDERED: ALBUT/IPRATROP 3MG/0.5MG NEB 3 ML VIAL NEB PRN (15:58)
[2022-07-29] MEDS ORDERED: LABETALOL HCL IV 5 MG/ML 20ML IV STA (16:36)
[2022-07-29] MEDS ORDERED: LACTATED RINGER'S 1,000 ML IV SCH (17:00)
[2022-07-29] MEDS: FLUTICASONE PROPIONATE NA SPR 16 GM BTL NAE SCH (17:20)
[2022-07-29 17:49] LABS: Appearance Urine Clear (Clear); Bacteria Urine Automated Negative (Negative); Bilirubin Urine Negative (Negative); Blood Urine 1+ (Negative); Cast Urine Automated 0 /lpf (0-5); Color Urine Yellow; Epithelial Cell Urine Auto 0-5 /lpf (0-5); Glucose Urine UA Negative (Negative); Ketones Urine Negative (Negative); Leukocyte Esterase Urine Negative (Negative); Nitrite Urine Positive (Negative); Protein Urine 2+ (Negative); RBC Urine Automated 0-4 /hpf (0-4); Specific Gravity Urine 1.014 (1.000-1.030); Urobilinogen Urine Negative (Negative)
[2022-07-29] MEDS: ACETAMINOPHEN 325 MG TAB PO PRN (18:16)
[2022-07-29 18:24] LABS: Creatinine Urine Random 45.6 mg/dl
--- NOTE | 2022-07-29 19:18 | Pharmacy Report ---
Pharmacy PK ABX Note - Date of Service July 29, 2022 - Assessment and Plan Assessment 37 year old M receiving VANCOMYCIN/CEFEPIME for treatment EMPIRIC treatment to cover pulmonary source. Patient + for influenza A, on tamiflu, history of kidney/pancreas transplant on immunosuppressants. Day # 1 of antimicrobial therapy. Plan Vancomycin * Loading dose: 1500 mg IV x 1 * Maintenance dose: 1000 mg IV every 18 hours * Regimen is predicted to achieve target AUC/ALY of 400-600 mg/L.hr * Random level to be ordered if continued >48 hours Pharmacy will continue to follow and will adjust dose/frequency as necessary. Thank you. Pharmacy has transitioned to AUC monitoring for vancomycin. AUC/ALY is the preferred PK/PD target and is associated with decreased risk of nephrotoxicity compared to traditional trough targets.
[2022-07-29] MEDS ORDERED: ACETAMINOPHEN W/CODEINE #3 1 TAB PO ONE (20:48)
[2022-07-29 20:55] LABS: Creatinine Clr Calc Pharmacy 53.8 ml/min; Est GFR (African American) 57.6 ml/min; Est GFR (Non-African American) 49.7 ml/min; Magnesium 1.9 mg/dl (1.7-2.4); Potassium 5.1 mmol/L (3.5-5.1)
[2022-07-29] MEDS: CEFEPIME 2,000 MG in SYRINGE 0 ML IV SCH (20:59)
[2022-07-29] MEDS: hydrALAZINE 10 MG TAB PO SCH (21:01)
[2022-07-29] MEDS: TAMSULOSIN HCL 0.4 MG CAP PO SCH (21:01)
[2022-07-29] MEDS: TACROLIMUS 1 MG CAP PO SCH (21:01)
[2022-07-30] MEDS: HEPARIN SOD 5,000 UNIT/0.5 ML VIAL SQ SCH ×4 (01:44→21:24)
[2022-07-30] MEDS: VANCOMYCIN HCL 1,000 MG in SODIUM CHLORIDE 0.9% 250 ML IV SCH ×2 (04:25→21:22)
[2022-07-30 06:48] LABS: Hematocrit (blood only) 44.3 % (40.1-51.0); Hemoglobin 14.6 g/dl (14.0-18.0); Mean Corpuscular Hemoglobin 31.2 pg (25.0-34.0); Mean Corpuscular Volume 94.7 fL (80.0-100.0); Mean Platelet Volume 10.4 fL (9.4-12.4); Platelet Count 130 K/uL (130-400); RDW Coefficient of Variation 13.4 % (11.5-14.5); RDW Standard Deviation 46.8 fL (36.4-46.3); Red Blood Count 4.68 M/uL (4.63-6.08); White Blood Count 8.69 K/ul (4.8-10.8)
[2022-07-30 06:58] LABS: BUN Creatinine Ratio 16.5 (10-20); Calcium 9.1 mg/dl (8.5-10.1); Magnesium 1.9 mg/dl (1.7-2.4); Phosphorus 3.4 mg/dl (2.5-4.9)
[2022-07-30] MEDS: ASPIRIN 325 MG ECTAB PO SCH (08:15)
[2022-07-30] MEDS: PANTOprazole 40 MG TAB PO SCH (08:16)
[2022-07-30] MEDS: TACROLIMUS 1 MG CAP PO SCH ×2 (08:16→21:24)
[2022-07-30] MEDS: CITALOPRAM 20 MG TAB PO SCH (08:16)
[2022-07-30] MEDS: CEFEPIME 2,000 MG in SYRINGE 0 ML IV SCH ×2 (08:19→21:21)
[2022-07-30] MEDS: OSELTAMIVIR PHOSPHATE SUSP 30 MG/5 ML UDP PO SCH ×2 (10:03→21:23)
--- NOTE | 2022-07-30 12:07 | Consultation Report ---
NEPHROLOGY CONSULTATION NOTE REASON FOR CONSULTATION: Kidney-pancreas transplant patient admitted with influenza. HISTORY OF PRESENT ILLNESS: The patient is a 37-year-old male with type 1 diabetes, status post kidney transplant and pancreas transplant in January 2021 at [facility], currently managed with CellCept and Prograf. He presented to the Emergency Department yesterday with fever, cough, congestion, shortness of breath for the last 2 days. He denied nausea, vomiting, diarrhea or urinary symptoms. However, he was not able to eat much solid food, but he was still trying to drink plenty of liquids. His admission creatinine was 1.7 and it is still 1.7 today. Review of his last two outpatient blood work showed a creatinine of 2.1 and 1.8. His amylase and lipase have also been normal. He is starting to feel a little better. He did receive some IV fluid, currently getting same dose of immunosuppressive medicine as outpatient. ALLERGIES: NSAIDS. MEDICATIONS: Home medication include tacrolimus 3 mg daily, aspirin, citalopram, Florinef 0.1 mg daily, hydralazine 10 daily, hydroxyzine, Protonix 40, tamsulosin 0.4. PAST MEDICAL AND SURGICAL HISTORY: Reviewed. Type 1 diabetes, ESRD secondary to type 2 diabetes and previously on dialysis, status post kidney-pancreas transplant in January 2021 at [facility], history of TIA, history of fatty liver, history of peritoneal dialysis, hemodialysis, diabetic retinopathy, history of bacteremia due to Staphylococcus aureus, anemia secondary to chronic medical disease. FAMILY HISTORY: Positive for diabetes. SOCIAL HISTORY: The patient is a former smoker. He has limited vision. He is single. He is alone. He is currently unemployed, on disability. REVIEW OF SYSTEMS: As detailed in HPI; unless stated otherwise, 12 systems reviewed and negative. PHYSICAL EXAMINATION: GENERAL: Young white male who is not in any distress at this time. VITAL SIGNS: Blood pressure is 154/81, pulse rate 76, temperature 37.3, 96% on room air. HEENT: Mucous membranes are moist. NECK: Supple. No jugular venous distention. CHEST: Bilaterally clear to auscultation. CARDIOVASCULAR: S1 and S2, regular. ABDOMEN: Soft, nontender. EXTREMITIES: Show no edema. NEUROLOGIC: Awake, alert, oriented x3. LABORATORY TESTS: Sodium 131, potassium 5.0, BUN 28, creatinine 1.7, it has been stable since being admitted. Calcium 9.1, phosphorus 3.4, magnesium 1.9, hemoglobin 14.6, WBC count 8.6. IMAGING DATA: Chest x-ray shows possible opacity within the medial right lung base, could be a focus of pneumonia. ASSESSMENT AND PLAN: A 37-year-old male with history of type 1 diabetes, status post kidney-pancreas transplant in January 2021 at [facility] with more recent baseline creatinine of 1.8 and 2.1 as an outpatient, now admitted with influenza with possible pneumonia. I have been consulted for management of renal transplant. 1. Renal transplant. Current creatinine of 1.7 is actually better than his most recent outpatient labs. So at this point, he does not have any problem with the kidney function. He did receive some IV fluid, but at this time, it seems he is starting to eat and he is definitely drinking normal amount, so we do not need to give more IV fluid. 2. Influenza. He is currently getting antiviral treatment for that. 3. Immunosuppressive medicines. [facility] home coordinator has been in touch with the primary team and has been guiding therapy. Will continue same. [facility] recently stopped CellCept as an outpatient. . He is currently getting Prograf as an inpatient and This is reasonable. It does not appear the patient will be in the hospital for a prolonged period of time. He is already starting to get better and his vital signs are completely normal and labs are completely stable. Job ID: [id number] MTDD
--- NOTE | 2022-07-30 14:06 | Hospitalist Progress Note ---
Date of Service July 30, 2022 Assessment & Plan (1) Influenza: Plan: Cont tamiflu and supportive care including antitussive therapy and Flonase for post nasal drip. Droplet precautions. (2) Pneumonia: Plan: empirically continue Vanc, Cefepime in setting of immunosuppression. 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 Continue tacrolimus - transplant team contacted by admitting physician - recommend to continue current dose. (4) Hypertension: Plan: Chronic, on hydralazine 10 mg p.o. nightly. BP slightly elevated. Continue monitoring closely in PCU. (5) Hyponatremia: Plan: Patient reports heavy intake of water including approximately 620 ounce bottles of water daily over these last few days. Hyponatremia may be a reflection of polydipsia versus poor p.o. intake. Continue to monitor BMP daily. Received 2 L of normal saline in the ER. Urine studies ordered. Nephrology also consulted (given hx of renal transplant) (6) Pancreas transplanted: Plan: He is no longer afflicted with diabetes. (7) Kidney transplanted: Plan: Nephrology consult ordered while patient is in the hospital. It is noted that studies have shown a decrease in mortality in solid organ transplant patients who have infectious disease consultations. Consider this early if no improvement with initial therapies. (8) DVT prophylaxis: Plan: Heparin Full Code Dispo- PCU Admission and Anticipated Discharge Date Admission Date: July 29, 2022 Subjective Patient seen in follow-up of shortness of breath, found to have influenza A He is status post pancreas and kidney transplant in 2020 Currently sitting up in bed, in no acute distress. Reports feeling better. Reports breathing is much better, however he is having headache. Reports cough with deep breath. Occasional white sputum. No chest pain or palpitations. No abdominal pain nausea vomiting. Review of Systems Review of Systems: All systems reviewed & are unremarkable except as noted in Subjective Physical Exam Physical Exam: CONSTITUTIONAL: WN/WD, in NAD EYES: PERRL, EOMI, normal conjunctivae, no scleral icterus ENT: external ear and nose normal, oropharynx clear NECK: supple RESPIRATORY: clear to auscultation bilaterally, no crackles, rales or wheezes, normal respiratory effort CARDIOVASCULAR: regular rate and rhythm, S1 and 2 heard without murmurs CHEST: inspection of chest was normal GASTROINTESTINAL: soft, nontender, well healed horizontal scar. MUSCULOSKELETAL: strength 5/5 throughout, head is normocephalic and atraumatic SKIN: warm and dry, no rashes, +tattoo on upper back NEUROLOGIC:Alert oriented, answering questions appropriately, speech fluent, moves extremities Results & Data Results & Data ([facility]) Vital Signs (Past 12 Hours) Vital Signs Temp Pulse Resp BP Pulse Ox O2 Del Method 07/30/22 11:31 37.7 C H 73 16 161/84 H 97 Room Air 07/30/22 08:21 37.3 C 76 16 154/81 H 96 Room Air 07/30/22 03:16 37.5 C 79 18 150/85 H 96 Room Air Laboratory Results 07/30/22 07/30/22 07/29/22 Range/Units 06:19 06:19 20:28 WBC 8.69 (4.8-10.8) K/ul RBC 4.68 (4.63-6.08) M/uL Hgb 14.6 (14.0-18.0) g/dl Hct 44.3 (40.1-51.0) % MCV 94.7 (80.0-100.0) fL MCH 31.2 (25.0-34.0) pg MCHC 33.0 (32.0-36.0) g/dL RDW Std Deviation 46.8 H (36.4-46.3) fL RDW Coeff of Ralph 13.4 (11.5-14.5) % Plt Count 130 (130-400) K/uL MPV 10.4 (9.4-12.4) fL Sodium 131 L 129 L (136-145) mmol/L Potassium 5.0 5.1 (3.5-5.1) mmol/L Chloride 106 105 (98-107) mmol/L Carbon Dioxide 20 L 18 L (21-32) mmol/L Anion Gap 5 6 (3-11) BUN 28 H 29 H (6-23) mg/dl Creatinine 1.70 H 1.71 H (0.6-1.4) mg/dl Est Cr Clr Drug Dosing 54.0 53.8 ml/min Est GFR ( Amer) 58.0 57.6 ml/min Est GFR (Non-Af Amer) 50.0 49.7 ml/min BUN/Creatinine Ratio 16.5 17.0 (10-20) Glucose 92 99 (70-99(Fasting)) mg/dl Calcium 9.1 9.0 (8.5-10.1) mg/dl Phosphorus 3.4 D (2.5-4.9) mg/dl Magnesium 1.9 1.9 (1.7-2.4) mg/dl Urine Color Urine Appearance (Clear) Urine pH (4.5-7.5) Ur Specific [place] (1.000-1.030) Urine Protein (Negative) Urine Glucose (UA) (Negative) Urine Ketones (Negative) Urine Blood (Negative) Urine Nitrite (Negative) Urine Bilirubin (Negative) Urine Urobilinogen (Negative) Ur Leukocyte Esterase (Negative) Urine WBC (Auto) (0-5) /hpf Urine RBC (Auto) (0-4) /hpf U Hyaline Cast (Auto) (0-5) /lpf U Epithel Cells (Auto) (0-5) /lpf Urine Bacteria (Auto) (Negative) Urine Osmolality (500-800) mOsm/kg Ur Random Creatinine mg/dl Ur Random Sodium mmol/L 07/29/22 07/29/22 07/29/22 Range/Units 17:25 17:25 17:25 WBC (4.8-10.8) K/ul RBC (4.63-6.08) M/uL Hgb (14.0-18.0) g/dl Hct (40.1-51.0) % MCV (80.0-100.0) fL MCH (25.0-34.0) pg MCHC (32.0-36.0) g/dL RDW Std Deviation (36.4-46.3) fL RDW Coeff of Ralph (11.5-14.5) % Plt Count (130-400) K/uL MPV (9.4-12.4) fL Sodium (136-145) mmol/L Potassium (3.5-5.1) mmol/L Chloride (98-107) mmol/L Carbon Dioxide (21-32) mmol/L Anion Gap (3-11) BUN (6-23) mg/dl Creatinine (0.6-1.4) mg/dl Est Cr Clr Drug Dosing ml/min Est GFR ( Amer) ml/min Est GFR (Non-Af Amer) ml/min BUN/Creatinine Ratio (10-20) Glucose (70-99(Fasting)) mg/dl Calcium (8.5-10.1) mg/dl Phosphorus (2.5-4.9) mg/dl Magnesium (1.7-2.4) mg/dl Urine Color Yellow Urine Appearance Clear (Clear) Urine pH 5.0 (4.5-7.5) Ur Specific [place] 1.014 (1.000-1.030) Urine Protein 2+ H (Negative) Urine Glucose (UA) Negative (Negative) Urine Ketones Negative (Negative) Urine Blood 1+ H (Negative) Urine Nitrite Positive A (Negative) Urine Bilirubin Negative (Negative) Urine Urobilinogen Negative (Negative) Ur Leukocyte Esterase Negative (Negative) Urine WBC (Auto) 1-5 (0-5) /hpf Urine RBC (Auto) 0-4 (0-4) /hpf U Hyaline Cast (Auto) 0 (0-5) /lpf U Epithel Cells (Auto) 0-5 (0-5) /lpf Urine Bacteria (Auto) Negative (Negative) Urine Osmolality 486 L (500-800) mOsm/kg Ur Random Creatinine 45.6 mg/dl Ur Random Sodium 135 mmol/L Medications Administered Current Inpatient Medications Acetaminophen (Acetaminophen 325 Mg Tab) 650 mg PO Q4H PRN PRN Reason: Pain or Fever Stop: 08/28/22 15:57 Last Admin: 07/29/22 18:16 Dose: 650 mg Albuterol (Albut/Ipratrop 3mg/0.5mg Neb 3 Ml Vial) 3 ml NEB QIDR PRN; Protocol PRN Reason: SOB/wheezing Stop: 08/28/22 15:57 Aspirin (Aspirin 325 Mg Ectab) 325 mg PO DAILY [facility] Stop: 08/29/22 08:59 Last Admin: 07/30/22 08:15 Dose: 325 mg Citalopram Hydrobromide (Citalopram 20 Mg Tab) 20 mg PO DAILY [facility] Stop: 08/29/22 08:59 Last Admin: 07/30/22 08:16 Dose: 20 mg Fluticasone Propionate (Fluticasone Propionate Na Spr 16 Gm Btl) 2 sprays ZARINA Q24H [facility] Stop: 08/28/22 15:57 Last Admin: 07/29/22 17:20 Dose: 2 sprays Guaifenesin/Codeine Phosphate (Guaifenesin/Codeine 200mg/20mg 10ml Udc) 10 ml PO Q6H PRN PRN Reason: Cough Stop: 08/28/22 15:57 Heparin Sodium (Porcine) (Heparin Sod 5,000 Unit/0.5 Ml Vial) 5,000 units SQ Q8 EMERY Stop: 08/28/22 21:59 Last Admin: 07/30/22 05:46 Dose: Not Given Hydralazine HCl (Hydralazine 10 Mg Tab) 10 mg PO HS [facility] Stop: 08/28/22 20:59 Last Admin: 07/29/22 21:01 Dose: 10 mg Hydroxyzine HCl (Hydroxyzine Hcl 25 Mg Tab) 25 mg PO Q6H PRN PRN Reason: Anxiety Stop: 08/28/22 15:57 Cefepime HCl 2,000 mg/ Syringe 20 mls @ 5 mls/min IV Q12H [facility]; Protocol Stop: 08/05/22 20:59 Last Admin: 07/30/22 08:19 Dose: 5 mls/min Vancomycin HCl 1,000 mg/ (Sodium Chloride) 270 mls @ 200 mls/hr IV Q18H [facility]; Protocol Stop: 08/06/22 03:59 Last Infusion: 07/30/22 05:46 Dose: Infused Miscellaneous Information (Vancomycin Consult Active) 1 each N/A UD PRN PRN Reason: Consult Stop: 08/28/22 09:05 Ondansetron HCl (Ondansetron Inj 2 Mg/Ml 2 Ml Vial) 4 mg IV Q6H PRN PRN Reason: Nausea Stop: 08/28/22 15:57 Oseltamivir Phosphate (Oseltamivir Phosphate Susp 30 Mg/5 Ml Udp) 30 mg PO BID [facility]; Protocol Stop: 08/04/22 08:59 Last Admin: 07/30/22 10:03 Dose: 30 mg Pantoprazole Sodium (Pantoprazole 40 Mg Tab) 40 mg PO DAILY [facility] Stop: 08/29/22 08:59 Last Admin: 07/30/22 08:16 Dose: 40 mg Polyethylene Glycol (Polyethylene (Miralax) 17 Gm Pack) 17 gm PO DAILY PRN PRN Reason: Constipation Stop: 08/28/22 15:57 Tacrolimus (Tacrolimus 1 Mg Cap) 2 mg PO HS [facility] Stop: 08/28/22 20:59 Last Admin: 07/29/22 21:01 Dose: 2 mg Tacrolimus (Tacrolimus 1 Mg Cap) 3 mg PO DAILY [facility] Stop: 08/29/22 08:59 Last Admin: 07/30/22 08:16 Dose: 3 mg Tamsulosin HCl (Tamsulosin Hcl 0.4 Mg Cap) 0.4 mg PO [facility] Stop: 08/28/22 20:59 Last Admin: 07/29/22 21:01 Dose: 0.4 mg (1) Pneumonia Laterality: right Lung location: lower lobe of lung Pneumonia type: due to unspecified organism Qualified Code(s): J18.9 - Pneumonia, unspecified organism
[2022-07-30] MEDS: ACETAMINOPHEN 325 MG TAB PO PRN (14:39)
[2022-07-30] MEDS: FLUTICASONE PROPIONATE NA SPR 16 GM BTL NAE SCH (14:40)
[2022-07-30] MEDS: hydrALAZINE 10 MG TAB PO SCH (21:23)
[2022-07-30] MEDS: TAMSULOSIN HCL 0.4 MG CAP PO SCH (21:24)
[2022-07-31] MEDS: HEPARIN SOD 5,000 UNIT/0.5 ML VIAL SQ SCH ×2 (05:15→13:17)
--- NOTE | 2022-07-31 07:06 | Hospitalist Progress Note ---
Date of Service July 31, 2022 Assessment & Plan (1) Influenza: Plan: Cont tamiflu and supportive care including antitussive therapy and Flonase for post nasal drip. Droplet precautions. Will continue for 2 more days (total 5 days) (2) Pneumonia: Plan: empirically continued Vanc, Cefepime in setting of immunosuppression. 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 Continue tacrolimus - transplant team contacted by admitting physician - recommend to continue current dose. (4) Hypertension: Plan: Chronic, on hydralazine 10 mg p.o. nightly. BP slightly elevated. Continue monitoring closely while inpt. Recommend close pcp follow up as well. (5) Hyponatremia: Plan: Patient reports heavy intake of water including approximately 620 ounce bottles of water daily over these last few days. Hyponatremia may be a reflection of polydipsia versus poor p.o. intake. Continue to monitor BMP daily. Received 2 L of normal saline in the ER. Urine studies ordered. Nephrology also consulted (given hx of renal transplant) Current Na improved 132 (6) Pancreas transplanted: Plan: He is no longer afflicted with diabetes. (7) Kidney transplanted: Plan: Nephrology consult ordered while patient is in the hospital. Renal function at baseline. (8) DVT prophylaxis: Plan: Heparin Full Code Dispo- Plan to Dc home Admission and Anticipated Discharge Date Admission Date: July 29, 2022 Subjective Patient seen in follow-up of shortness of breath, found to have influenza A He is status post pancreas and kidney transplant in 2020 Currently sitting up in bed, in no acute distress. Reports feeling much better. Reports breathing is much better. No chest pain or palpitations. No abdominal pain nausea vomiting. Discussed w/ ID Review of Systems Review of Systems: All systems reviewed & are unremarkable except as noted in Subjective Physical Exam Physical Exam: CONSTITUTIONAL: WN/WD, in NAD EYES: PERRL, EOMI, normal conjunctivae, no scleral icterus ENT: external ear and nose normal, oropharynx clear NECK: supple RESPIRATORY: clear to auscultation bilaterally, no crackles, rales or wheezes, normal respiratory effort CARDIOVASCULAR: regular rate and rhythm, S1 and 2 heard without murmurs CHEST: inspection of chest was normal GASTROINTESTINAL: soft, nontender, well healed horizontal scar. MUSCULOSKELETAL: strength 5/5 throughout, head is normocephalic and atraumatic SKIN: warm and dry, no rashes, +tattoo on upper back NEUROLOGIC:Alert oriented, answering questions appropriately, speech fluent, moves extremities Results & Data Results & Data ([facility]) Vital Signs (Past 12 Hours) Vital Signs Temp Pulse Pulse Resp BP Pulse Ox O2 Del Method 07/31/22 03:15 36.4 C L 57 L 18 159/88 H 98 Room Air 07/31/22 00:00 59 L 07/30/22 20:45 Room Air 07/30/22 20:15 36.7 C 60 18 164/87 H 98 Room Air 07/30/22 20:13 36.6 C 65 16 136/79 97 Room Air Laboratory Results 07/31/22 07/31/22 Range/Units 06:19 06:19 WBC 5.38 (4.8-10.8) K/ul RBC 4.76 (4.63-6.08) M/uL Hgb 15.0 (14.0-18.0) g/dl Hct 45.9 (40.1-51.0) % MCV 96.4 (80.0-100.0) fL MCH 31.5 (25.0-34.0) pg MCHC 32.7 (32.0-36.0) g/dL RDW Std Deviation 48.4 H (36.4-46.3) fL RDW Coeff of Ralph 13.4 (11.5-14.5) % Plt Count 137 (130-400) K/uL MPV 10.4 (9.4-12.4) fL Sodium 132 L (136-145) mmol/L Potassium 5.1 (3.5-5.1) mmol/L Chloride 106 (98-107) mmol/L Carbon Dioxide 22 (21-32) mmol/L Anion Gap 4 (3-11) BUN 33 H (6-23) mg/dl Creatinine 1.73 H (0.6-1.4) mg/dl Est Cr Clr Drug Dosing 51.8 ml/min Est GFR ( Amer) 56.8 ml/min Est GFR (Non-Af Amer) 49.0 ml/min BUN/Creatinine Ratio 19.1 (10-20) Glucose 80 (70-99(Fasting)) mg/dl Calcium 9.5 (8.5-10.1) mg/dl Phosphorus 3.2 (2.5-4.9) mg/dl Magnesium 2.0 (1.7-2.4) mg/dl Medications Administered Current Inpatient Medications Acetaminophen (Acetaminophen 325 Mg Tab) 650 mg PO Q4H PRN PRN Reason: Pain or Fever Stop: 08/28/22 15:57 Last Admin: 07/30/22 14:39 Dose: 650 mg Albuterol (Albut/Ipratrop 3mg/0.5mg Neb 3 Ml Vial) 3 ml NEB QIDR PRN; Protocol PRN Reason: SOB/wheezing Stop: 08/28/22 15:57 Aspirin (Aspirin 325 Mg Ectab) 325 mg PO DAILY [facility] Stop: 08/29/22 08:59 Last Admin: 07/30/22 08:15 Dose: 325 mg Citalopram Hydrobromide (Citalopram 20 Mg Tab) 20 mg PO DAILY [facility] Stop: 08/29/22 08:59 Last Admin: 07/30/22 08:16 Dose: 20 mg Fluticasone Propionate (Fluticasone Propionate Na Spr 16 Gm Btl) 2 sprays ZARINA Q24H [facility]ERY Stop: 08/28/22 15:57 Last Admin: 07/30/22 14:40 Dose: 2 sprays Guaifenesin/Codeine Phosphate (Guaifenesin/Codeine 200mg/20mg 10ml Udc) 10 ml PO Q6H PRN PRN Reason: Cough Stop: 08/28/22 15:57 Heparin Sodium (Porcine) (Heparin Sod 5,000 Unit/0.5 Ml Vial) 5,000 units SQ Q8 [facility] Stop: 08/28/22 21:59 Last Admin: 07/31/22 05:15 Dose: Not Given Hydralazine HCl (Hydralazine 10 Mg Tab) 10 mg PO HS [facility] Stop: 08/28/22 20:59 Last Admin: 07/30/22 21:23 Dose: 10 mg Hydroxyzine HCl (Hydroxyzine Hcl 25 Mg Tab) 25 mg PO Q6H PRN PRN Reason: Anxiety Stop: 08/28/22 15:57 Cefepime HCl 2,000 mg/ Syringe 20 mls @ 5 mls/min IV Q12H [facility]; Protocol Stop: 08/05/22 20:59 Last Admin: 07/30/22 21:21 Dose: 5 mls/min Vancomycin HCl 1,000 mg/ (Sodium Chloride) 270 mls @ 200 mls/hr IV Q18H [facility]; Protocol Stop: 08/06/22 03:59 Last Infusion: 07/30/22 22:52 Dose: Infused Miscellaneous Information (Vancomycin Consult Active) 1 each N/A UD PRN PRN Reason: Consult Stop: 08/28/22 09:05 Ondansetron HCl (Ondansetron Inj 2 Mg/Ml 2 Ml Vial) 4 mg IV Q6H PRN PRN Reason: Nausea Stop: 08/28/22 15:57 Oseltamivir Phosphate (Oseltamivir Phosphate Susp 30 Mg/5 Ml Udp) 30 mg PO BID [facility]; Protocol Stop: 08/04/22 08:59 Last Admin: 07/30/22 21:23 Dose: 30 mg Pantoprazole Sodium (Pantoprazole 40 Mg Tab) 40 mg PO DAILY [facility] Stop: 08/29/22 08:59 Last Admin: 07/30/22 08:16 Dose: 40 mg Polyethylene Glycol (Polyethylene (Miralax) 17 Gm Pack) 17 gm PO DAILY PRN PRN Reason: Constipation Stop: 08/28/22 15:57 Tacrolimus (Tacrolimus 1 Mg Cap) 2 mg PO HS [facility] Stop: 08/28/22 20:59 Last Admin: 07/30/22 21:24 Dose: 2 mg Tacrolimus (Tacrolimus 1 Mg Cap) 3 mg PO DAILY [facility] Stop: 08/29/22 08:59 Last Admin: 07/30/22 08:16 Dose: 3 mg Tamsulosin HCl (Tamsulosin Hcl 0.4 Mg Cap) 0.4 mg PO HS [facility] Stop: 08/28/22 20:59 Last Admin: 07/30/22 21:24 Dose: 0.4 mg (1) Pneumonia Laterality: right Lung location: lower lobe of lung Pneumonia type: due to unspecified organism Qualified Code(s): J18.9 - Pneumonia, unspecified organism
[2022-07-31 07:16] LABS: Hematocrit (blood only) 45.9 % (40.1-51.0); Mean Corpuscular Hemoglobin 31.5 pg (25.0-34.0); Mean Corpuscular Hgb Conc 32.7 g/dL (32.0-36.0); Mean Corpuscular Volume 96.4 fL (80.0-100.0); Mean Platelet Volume 10.4 fL (9.4-12.4); Platelet Count 137 K/uL (130-400); RDW Coefficient of Variation 13.4 % (11.5-14.5); RDW Standard Deviation 48.4 fL (36.4-46.3); Red Blood Count 4.76 M/uL (4.63-6.08); White Blood Count 5.38 K/ul (4.8-10.8)
[2022-07-31 07:51] LABS: BUN Creatinine Ratio 19.1 (10-20); Calcium 9.5 mg/dl (8.5-10.1); Creatinine Clr Calc Pharmacy 51.8 ml/min; Est GFR (African American) 56.8 ml/min; Phosphorus 3.2 mg/dl (2.5-4.9); Potassium 5.1 mmol/L (3.5-5.1)
[2022-07-31] MEDS: PANTOprazole 40 MG TAB PO SCH (09:09)
[2022-07-31] MEDS: TACROLIMUS 1 MG CAP PO SCH (09:10)
[2022-07-31] MEDS: OSELTAMIVIR PHOSPHATE SUSP 30 MG/5 ML UDP PO SCH (09:10)
[2022-07-31] MEDS: CITALOPRAM 20 MG TAB PO SCH (09:10)
[2022-07-31] MEDS: ASPIRIN 325 MG ECTAB PO SCH (09:10)
[2022-07-31] MEDS: CEFEPIME 2,000 MG in SYRINGE 0 ML IV SCH (09:14)
--- NOTE | 2022-07-31 09:20 | Nephrology Progress Note ---
Date of Service July 31, 2022 Assessment & Plan Admission and Anticipated Discharge Date Admission Date: July 29, 2022 Subjective S--getting better. now new issues. PHYSICAL EXAMINATION: GENERAL: Young white male who is not in any distress at this time. HEENT: Mucous membranes are moist. NECK: Supple. No jugular venous distention. CHEST: Bilaterally clear to auscultation. CARDIOVASCULAR: S1 and S2, regular. ABDOMEN: Soft, nontender. EXTREMITIES: Show no edema. NEUROLOGIC: Awake, alert, oriented x3. LABORATORY TESTS: Sodium 132, creatinine 1.73 today, it has been stable since being admitted. IMAGING DATA: Chest x-ray shows possible opacity within the medial right lung base, could be a focus of pneumonia. ASSESSMENT AND PLAN: A 37-year-old male with history of type 1 diabetes, status post kidney-pancreas transplant in January 2021 at [facility] with more recent baseline creatinine of 1.8 and 2.1 as an outpatient, now admitted with influenza with possible pneumonia. I have been consulted for management of renal transplant. 1. Renal transplant. Current creatinine of 1.7 is actually better than his most recent outpatient labs. So at this point, he does not have any problem wi th the kidney function. He did receive some IV fluid, but at this time, it seems he is starting to eat and he is definitely drinking normal amount, so we do not need to give more IV fluid. 2. Influenza. He is currently getting antiviral treatment for that. 3. Immunosuppressive medicines. [facility] container coordinator has been in touch with the primary team and has been guiding therapy. Will continue same. Results & Data ([facility]) Vital Signs (Past 12 Hours) Vital Signs Temp Pulse Pulse Resp BP Pulse Ox O2 Del Method 07/31/22 08:00 36.5 C 63 16 165/85 H 98 Room Air 07/31/22 03:15 36.4 C L 57 L 18 159/88 H 98 Room Air 07/31/22 00:00 59 L
--- NOTE | 2022-07-31 14:10 | Discharge Summary ---
Date of Service July 31, 2022 Admission HPI Per Admitting Provider Patient is a 37-year-old man with history of kidney transplant and pancreas transplant in January 2021 on CellCept and Prograf who follows at [facility] who presented to the department with fever cough congestion and shortness of breath for the last 24 hours. He denied any nausea, vomiting, diarrhea or urinary symptoms. Work-up in the ER revealed a creatinine at baseline and his transplant team is aware of his presentation here to this facility. They are comfortable with him staying here for now. Fatigue is reported and he is febrile to 39.3 C. Heart rate is in the low 100s and blood pressure is in the 170s over 100s. He received Tylenol 2 L of normal saline, guaifenesin 600 p.o., magnesium and oseltamivir. He was also given empiric antibiotics with vancomycin and cefepime given his Immunosuppressed status. Low magnesium was replaced. fevers (99-102F)/chills +coughing worse in the evening. has been taking Prograf-not this am headache has been taking tylenol last couple of days no vomiting, diarrhea has not been eating much Admission Exam Per Admitting Provider CONSTITUTIONAL: WNWD, vitals as above, generally well-appearing, NAD EYES: PERRL, normal conjunctivae, no scleral icterus ENT: external ear and nose normal, oropharynx clear, enlarged bilateral tonsils without exudates present. No submandibular LAD, sinus TTP in maxillary area. NECK: trachea midline RESPIRATORY: clear to auscultation bilaterally, no crackles, rales or wheezes, normal respiratory effort CARDIOVASCULAR: regular rate and rhythm, S1 and 2 heard without murmurs, gallops or rubs, no JVD, no peripheral edema CHEST: inspection of chest was normal GASTROINTESTINAL: soft, nontender, well healed horizontal scar. MUSCULOSKELETAL: strength 5/5 throughout, head is normocephalic and atraumatic SKIN: warm and dry, no rashes, tattoo ehsan wings on back NEUROLOGIC: CN 2-12 grossly intact, no sensory deficit, normal cognition, nor mal speech, no tremor PSYCHIATRIC: alert cooperative and oriented to person, place and time. Euthymic mood, makes good eye contact, language grossly intact, recent and remote memory grossly intact. LYMPHATIC: no LAD Principal Diagnosis Shortness of breath d/t influenza Fever Hx of pancreatic and renal transplant Discharge Exam CONSTITUTIONAL: WN/WD, in NAD EYES: PERRL, EOMI, normal conjunctivae, no scleral icterus ENT: external ear and nose normal, oropharynx clear NECK: supple RESPIRATORY: clear to auscultation bilaterally, no crackles, rales or wheezes, normal respiratory effort CARDIOVASCULAR: regular rate and rhythm, S1 and 2 heard without murmurs CHEST: inspection of chest was normal GASTROINTESTINAL: soft, nontender, well healed horizontal scar. MUSCULOSKELETAL: strength 5/5 throughout, head is normocephalic and atraumatic SKIN: warm and dry, no rashes, +tattoo on upper back NEUROLOGIC:Alert oriented, answering questions appropriately, speech fluent, moves extremities Discharge Data Allergies Allergy/AdvReac Type Severity Reaction Status Date / Time NSAIDS (Non-Steroidal AdvReac Unknown RENAL Verified 03/16/22 18:35 Anti-Inflamma FAILURE Consultations 07/29/22 14:04 ED Decision to Admit Stat 07/29/22 15:58 Consult Nephrology Routine 07/31/22 07:04 Consult Infectious Diseases Routine Hospital Course (1) Influenza: Cont tamiflu and supportive care including antitussive therapy and Flonase for post nasal drip. Droplet precautions. Will continue for 2 more days (total 5 days) (2) Pneumonia: empirically continued Vanc, Cefepime in setting of immunosuppression. 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 Continue tacrolimus - transplant team contacted by admitting physician - recommend to continue current dose. (4) Hypertension: Chronic, on hydralazine 10 mg p.o. nightly. BP slightly elevated. Continue monitoring closely while inpt. Recommend close pcp follow up as well. (5) Hyponatremia: Patient reports heavy intake of water including approximately 620 ounce bottles of water daily over these last few days. Hyponatremia may be a reflection of polydipsia versus poor p.o. intake. Continue to monitor BMP daily. Received 2 L of normal saline in the ER. Urine studies ordered. Nephrology also consulted (given hx of renal transplant) Current Na improved 132 (6) Pancreas transplanted: He is no longer afflicted with diabetes. (7) Kidney transplanted: Nephrology consult ordered while patient is in the hospital. Renal function at baseline. (8) DVT prophylaxis: Total Time Total Time Spent Total Time Spent (In Minutes): 40 Discharge Plan Discharge Items Patient Disposition: Home - Self-Care Reason For Visit: INFLUENZA, H/O RENAL AND PANCREATIC TRANSPLANT Discharge Diagnosis: Shortness of breath d/t influenza Fever Hx of pancreatic and renal transplant Activity: Per Instructions section Non-emergency contact: Primary Care Provider Call non-emergency contact if: you have any medication questions and your symptoms worsen Follow-up/Referrals: Ciro Singh MD [Primary Care Provider] - Diet: Regular Addtl Attending Provider Instructions: Follow up with your primary care doctor, and the transplant team. You should see your primary care physician within 1 week. Take oseltamivir twice a day as prescribed, for next 2 days. Pending Studies at Discharge: Yes Studies:: Final blood cultures results Stand-Alone Forms: My [facility] [place] [employer], Work/School Release, Smoking Cessation Medications and DC Order Prescriptions: New oseltamivir 30 mg capsule 30 mg PO BID 3 Days Qty: 6 0RF Continued tacrolimus [Prograf] 1 mg capsule 3 mg PO DAILY hydralazine 10 mg tablet 10 mg PO HS citalopram 20 mg tablet 20 mg PO DAILY aspirin 325 mg tablet,delayed release (DR/EC) 325 mg PO DAILY tamsulosin 0.4 mg capsule 0.4 mg PO HS pantoprazole 40 mg tablet,delayed release (DR/EC) 40 mg PO DAILY hydroxyzine HCl 25 mg tablet 25 mg PO Q6H PRN (Reason: Anxiety) fludrocortisone 0.1 mg tablet 0.1 mg PO DAILY tacrolimus 1 mg Capsule 2 mg PO HS Discharge Orders: Discharge Order (Routine); Ordered 07/31/22 Ordered By: Ion Elkins/Other Patient Handouts: Immunocompromised Patients Dc Admission Data Admit Date/Time: 07/29/22 14:03 Attending Provider: Ion Penn Admit Provider: Alisha Palomino Primary Care Provider: Ciro Singh Other Providers: Alisha Palomino ; Des Marcano Carlos M. ; Anjelica Barbosa ; Ted Penaloza I. ; Samir Abrams II ; Mayra Lyon ; Slick Schumacher ; Jackson Reyna ; Dylan Milner
[2022-07-31] MEDS ORDERED: VANCOMYCIN LEVEL ONE (15:15)
== END 2022-07-31 15:30 | disposition home or self-care (01) | DRG 194 ==
LOC: ED 08:34 → SUATTDRO 14:03 → EDINP 14:03 → 2S 15:55

== ENCOUNTER 2024-07-02 11:53 | Inpatient (IN) ==
--- OUTSIDE RECORDS SUMMARY | 2024-07-02 12:00 | External Medical Summary | Summary of Care ---
Author Name Unknown Organization [facility] Address [address] [place] [address] Phone [phone] Care Team Providers Care Industrial Automation Specialist Name Role Phone Taylor Faustin Primary Care Provider [phone] Encounter Details Date Type Department Care Team (Late st Contact Info) Description 06/15/2024 Result Scan Unspecified Department <No scans attached> Allergies Active Allergy Reactions Criticality Noted Date Comments Nsaids 04/11/2019 contraindicated due to kidney function documented as of this encounter (statuses as of 06/16/2024) Medications Medication Sig Dispensed Refills Start Date End Date Status hydrALAZINE HCl 10 MG Oral Tablet (Apresoline) Take 1 Tablet by mouth at bedtime. 03/19/2021 Active Tacrolimus 1 MG Oral Capsule (Prograf) Take 1 Capsule by mouth in the morning and 1 Capsule before bedtime. 3 capsules every am and 3 capsules every evening . 03/19/2021 Active Tamsulosin HCl 0.4 MG Oral Capsule (Flomax) Take 1 Capsule by mouth at bedtime. 03/19/2021 Active Mycophenolate Sodium 180 MG Oral Tablet Delayed Release (Myfortic) Take by mouth. 2 tabs by mouth 2 x daily 03/02/2023 Active Fludrocortisone Acetate 0.1 MG Oral Tablet (Florinef) Take 1 Tablet by mouth in the morning. 03/07/2024 Active Aspirin 325 MG Oral Tablet Take 1 Tablet by mouth in the morning. with food.. 03/07/2024 Active documented as of this encounter (statuses as of 06/16/2024) Active Problems Problem Noted Date Diagnosed Date Retinopathy 03/07/2024 PAD (peripheral artery disease) 03/07/2024 Stage 3b chronic kidney disease (CKD) 08/24/2022 Overview: EGFR 38 History of simultaneous kidney and pancreas cross splant 02/07/2021 Overview: [facility] A-V fistula 10/18/2019 Former smoker 08/26/2018 Primary hypertension 06/30/2016 Fatty liver Charcot's joint of foot, right Overview: right talus particularly documented as of this encounter (statuses as of 06/16/2024) Resolved Problems Problem Noted Date Diagnosed Date Resolved Date Pancreas transplanted 02/07/20212023 Dialysis headache 04/22/2020 08/11/2021 Peritoneal dialysis status 11/10/2019 1 MSSA bacteremia 10/03/2019 05/24/2020 Overview: [facility] Peritoneal dialysis catheter dysfunction 05/22/2019 06/19/2019 End stage renal disease 10/05/2018 12/2 Neurogenic bladder 08/26/2018 4 Diabetes mellitus with nephropathy 08/26/2018 08/11/2021 Type 1 diabetes mellitus wit h Charcot's joint of foot 08/15/2018 08/11/2021 Leukoplakia of oral cavity 04/01/2018 0 03/07/2024 Urinary retention 03/01/2018 10/05/2018 Acute kidney injury superimp osed on chronic kidney disease 12/11/2017 07/12/2018 Overview: [facility], creat 2.5, hgb 8.7, A1c 13.7 CKD (chronic kidney disease), stage III 05/10/2017 08/15/2018 Kidney disease, chronic, sta ge III (GFR 30-59 ml/min) 12/28/2016 01/07/2017 Overview: Per CKD protocol #1 Proliferative diabetic retin opathy of both eyes without macular edema associated with type 1 diabetes mellitus 07/21/2016 03/07/2024 Vitreous hemorrhage of both eyes 05/29/2015 07/21/2016 Type 1 diabetes mellitus wit h proliferative diabetic retinopathy and without macular edema 05/29/2015 06/30/2016 Overview: - long standing h/o Type 1 diabets DXD at age 13 YO. Presented with severe DKA. -Has had multiple DKA's since the diagnosis, last DKA was spring. Hospitalized at [facility] Migraine, hemiplegic 12/20/2008 024 Overview: [facility] ER for headache, chest pain, left arm numbness DIABETES WITH UNSPECIFIFED C OMPLICATION, TYPE I (INSULIN-DEPENDENT TYPE)(IDDM 06/24/20 15 Type 1 diabetes mellitus on insulin therapy 08/11/2022 Type 1 diabetes, HbA1c goal < 7% 08/11/2022 Tobacco use disorder 019 CKD (chronic kidney disease), stage IV 10/05/2018 Hypertensive kidney disease with CKD stage IV 10/05/2018 Type 1 DM with CKD stage 5 and hypertension 08/11/2021 Hyperparathyroidism due to e nd stage renal disease on dialysis 08/11/2021 ACEI/ARB contraindicated Hemodialysis patient 021 documented as of this encounter (statuses as of 06/16/2024) Immunizations Name Administration Dates Next Due COVID-19 mRNA, LNP-s, No Pre serve, 2-Dose Series (Moderna) 11/25/2020,10/28/2020 Hepatitis B Vaccine 08/23/2019 Hepatitis B, 20+ yrs 12/31/2020 Pneumococcal Conjugate Vacc, 13 Valent (Prevnar) 10/21/2019 Pneumococcal Polysaccharide PPV23 (Pneumovax) 05/24/2020,12/16/2019,08/23/2019 Seasonal Influenza Vac., MDV , IM, 0.5 mL (Fluzone) 05/23/2020 Seasonal Influenza, PF, 6 M & above, IM , (FluLaval or Fluzone) 04/23/2020 TDAP, Age 7 and older, IM (Adacel) 01/21/2011 documented as of this encounter Social History Tobacco Use Types Packs/Day Years Used Date Smoking Tobacco: Former Cigarettes 1 24.6 0 1992 - 11/17/2016 Smokeless Tobacco: Never Alcohol Use Standard Drinks/Week Comments Not Currently 0 (1 standard drink = 0.6 oz pur e alcohol) stopped 11-17-16 PHQ-2 Answer Date Recorded PHQ Adult Total Score 0 08/28/2020 Utilities Answer Date Recorded Do you have trouble paying y our heating, water, or electric bill? (Adult - for ages 18 years and over) Not on file 02/08/2024 Is your family able to pay t he heat, water, or electric bill? (Household - for ages 0-17 years) Not on file 02/08/2024 Does your family have access to good internet? (Household - for ages 0-17 years) Not on file 02/08/2024 Social Connections Answer Date Recorded How often do you feel lonely or isolated from those around you? (Adult - for ages 18 years and over) Not on file 02/08/2024 Sex and Gender Information Value Date Recorded Sex Assigned at Not on file Gender Identity Not on file Sexual Orientation Not on file Job Start Date Occupation Industry Not on file Not on file Not on file documented as of this encounter Functional Status Functional Status Response Date of Assess ment Does this person have seriou s difficulty walking or climbing stairs? Yes 02/09/2019 documented as of this encounter Plan of Treatment Upcoming Encounters Date Type Department Care Team (Late st Contact Info) Description 03/07/2025 1:50 PM EDT Office Visit Family Medicine [address] [place] [phone] [place] [id number] Health Maintenance Due Date Last Done Comments Albumin/Creatinine Ratio 11/16/2017 017, 01/05/2003, 04/05/2002, Additional history exists COVID-19 Vaccine (3 - Moderna risk series) 12/23/2020 11/25/2020, 10/28/2020 DTap/Tdap Vaccines (7 - Td or Tdap) 01/21/2021 01/21/2011, 09/07/1988, 10/11/1985, Additional history exists Depression Screening 08/28/2021 08/28/2020 Influenza Vaccine (FLU shot) (#1) 2024 07/30/2022, 05/23/2020, 04/23/2020, Additional history exists GFR 12/14/2024 06/15/2024, 02/20, 02/23/2024, Additional history exists Lipid Panel 11/05/2025 11/05/2020, 1009/2019, 02/08/2019, Additional history exists Pneumococcal Vaccine: Pediatrics (0 to 5 Years) and At-Risk Patients (6 to 64 Years) (4 of 4 - PPSV23 or PCV20) 2049 05/24/2020, 12/16/2019, 10/21/2019, Additional history exists MENINGOCOCCAL (MENACTRA/MENVEO) Aged Out 02/17/2005, 02/17/2005 No longer eligibl e based on patient's age to complete this topic Diabetic Eye Exam Discontinued 05/24/2020 (Do ne elsewhere), 09/28/2017, 09/28/2017, Additional history exists Diabetic Foot Exam Discontinued 05/24/2020 (D one elsewhere), 12/26/2018, 05/03/2017, Additional history exists HPV (Gardasil) Vaccine Aged Out No lo nger eligible based on patient's age to complete this topic documented as of this encounter Medical Devices Not on filedocumented as of this encounter Procedures Procedure Name Priority Date/Time Associated Diagnosis Comments OUTSIDE LAB RESULTS 06/15/2024 documented in this encounter Results * OUTSIDE LAB RESULTS (06/15/2024) 06/15/2024 No Physician Data Unknown LABORATORY documented in this encounter Care Teams Industrial Automation Specialist Relationship Specialty Start Date End Date Taylor Faustin DO [address] [place] [address] [place] [phone] PCP - General Internal Medicine 03/07/24 documented as of this encounter
--- OUTSIDE RECORDS SUMMARY | 2024-07-02 12:00 | External Medical Summary | Summary of Care ---
Author Name Unknown Organization [facility] Address [address] [place] [address] Phone [phone] Care Team Providers Care Bushel Girl Name Role Phone Taylor Faustin DO Primary Care Provider Encounter Details Date Type Department Care Team (Late st Contact Info) Description 06/28/2024 Orders Only Family Medicine [address] [place] [phone] Taylor Faustin DO [address] [place] [address] [place] [phone] Allergies Active Allergy Reactions Criticality Noted Date Comments Nsaids 04/11/2019 contraindicated due to kidney function documented as of this encounter (statuses as of 06/28/2024) Medications Medication Sig Dispensed Refills Start Date [...] as of this encounter (statuses as of 06/28/2024) Active Problems Problem Noted Date Diagnosed Date Retinopathy 03/07/2024 PAD (peripheral artery disease) 03/07/2024 Stage 3b chronic kidney disease (CKD) 08/24/2022 Overview: EGFR 38 History of simultaneous kidney and pancreas cross splant 02/07/2021 Overview: [facility] A-V fistula 10/18/2019 Former smoker 08/26/2018 Primary hypertension 06/30/2016 Fatty liver Charcot's joint of foot, right Overview: right talus particularly documented as of this encounter (statuses as of 06/28/2024) Resolved Problems Problem Noted Date Diagnosed Date Resolved Date Pancreas transplanted 02/07/20212023 Dialysis headache 04/22/2020 08/11/2021 Peritoneal dialysis status 11/10/2019 1 MSSA bacteremia 10/03/2019 05/24/2020 Overview: [facility] Peritoneal dialysis catheter dysfunction 05/22/2019 06/19/2019 End stage renal disease 10/05/201807/24 Neurogenic bladder 08/26/2018 Diabetes mellitus with nephropathy 08/26/2018 08/11/2021 Type 1 diabetes mellitus wit h Charcot's joint of foot 08/15/2018 08/11/2021 Leukoplakia of oral cavity 04/01/2018 0 03/07/2024 Urinary retention 03/01/2018 10/05/2018 Acute kidney injury superimp osed on chronic kidney disease 12/11/2017 07/12/2018 Overview: [facility], creat 2.5, hgb 8.7, A1c 13.7 CKD [...] diagnosis, last DKA was spring. Hospitalized at [facility] Migraine, hemiplegic 12/20/2008 024 Overview: [facility] ER for headache, chest pain, left arm [...] as of this encounter (statuses as of 06/28/2024) Immunizations Name Administration Dates Next Due COVID-19 [...] 1:50 PM EDT Office Visit Family Medicine [address] [place] [phone] Taylor Fa[address] [place] [address] Health Maintenance Due Date Last Done Comments Albumin/Creatinine Ratio 11/16/2017 017, 01/05/2003, 04/05/2002, Additional history exists COVID-19 Vaccine (3 - Moderna risk series) 12/23/2020 11/25/2020, 10/28/2020 DTap/Tdap Vaccines (7 - Td or Tdap) 01/21/2021 01/21/2011, 09/07/1988, 10/11/1985, Additional history exists Depression Screening 08/28/2021 08/28/2020 Influenza Vaccine (FLU shot) (#1) 2024 07/30/2022, 05/23/2020, 04/23/2020, Additional history exists GFR 12/14/2024 06/27/2024, 05/24, 03/08/2024, Additional history exists Lipid Panel 11/05/2025 11/05/2020, 09/2019, 02/08/2019, Additional history exists Pneumococcal Vaccine: Pediatrics [...] Procedure Name Priority Date/Time Associated Diagnosis Comments CHEMISTRY-OUTSIDE Routine 06/27/2024 documented in this encounter Results * (ABNORMAL) CHEMISTRY-OUTSIDE (06/27/2024) Not all results display below - see scan for full detail OUTSIDE LAB (SEE SCANNED REPORT) Comment:SCAN INCL: BMP, AMYL ASE,HA1C,LIPASE, MAG,PHOS, URIC ACID CREATININE 3.99(A) 0.70 - 1.30 MG/DL OUTSIDE LAB (SEE SCANNED REPORT) EGFR 19(A) >=60 ML/MIN OUTSIDE LAB (SEE SCANNED REPORT) POTASSIUM 4.9 3.5 - 5.1 MMOL/L OUTSIDE LAB (SEE SCANNED REPORT) GLUCOSE 88 70 - 110 MG/DL OUTSIDE LAB (SEE SCANNED REPORT) HOURS FASTING OUTSID E LAB (SEE SCANNED REPORT) TRIGLYCERIDES-OUT SIDE LAB OUTSIDE LAB (SEE SCANNED REPORT) CHOLESTEROL-OUTSI DE LAB OUTSIDE LAB (SEE SCANNED REPORT) HDL-OUTSIDE LAB OUTS MANUEL LAB (SEE SCANNED REPORT) CHOL/HDL RATIO-OUTSIDE LAB OUTSIDE LA B (SEE SCANNED REPORT) LDL (CALCULATED)-OUTS MANUEL LAB OUTSIDE LAB (SEE SCANNED REPORT) LDL (DIRECT MEASURE)-OUTSIDE LAB OUTSIDE LAB (SEE SCANNED REPORT) HEMOGLOBIN, [id number] LAB 5.2 3.8 - 5.6 % OUTSIDE LAB (SEE SCANNED REPORT) PHOSPHORUS-OUTSID E LAB 4.4 2.5 - 4.9 MG/DL OUTSIDE LAB (SEE SCANNED REPORT) PTH-OUTSIDE LAB OUTS MANUEL LAB (SEE SCANNED REPORT) MICROALBUMIN RATIO-OUTSIDE LAB OUTSIDE LA B (SEE SCANNED REPORT) PROTEIN, UA-OUTSIDE LAB OUTSIDE LAB (SEE SCANNED REPORT) HGB OUTSIDE LA B (SEE SCANNED REPORT) 06/27/2024 History Per Patient LABORATORY OUTSIDE LAB (SEE SCANNED REPORT) documented in this encounter Care Teams Bushel Girl Relationship Specialty Start Date End Date Taylor Faustin DO [address] [place] [address] [place] [phone] PCP - General Internal Medicine 03/07/24 documented as of this encounter
--- OUTSIDE RECORDS SUMMARY | 2024-07-02 12:00 | External Medical Summary | Summary of Care ---
Author Name Unknown Organization [facility] Address [address] [place] [address] Phone [phone] Care Team Providers Care Park Activities Coordinator Name Role Phone Taylor Faustin Primary Care Provider [phone] Encounter Details Date Type Department Care Team (Late st Contact Info) Description 06/27/2024 Result Scan Unspecified Department <No scans attached> Allergies Active Allergy Reactions Criticality Noted Date Comments Nsaids 04/11/2019 contraindicated due to kidney function documented as of this encounter (statuses as of 06/30/2024) Medications hydrALAZINE HCl 10 MG Oral Tablet (Apresoline) [...] as of this encounter (statuses as of 06/30/2024) Active Problems Problem Noted Date Diagnosed Date Retinopathy 03/07/2024 PAD (peripheral artery disease) 03/07/2024 Stage 3b chronic kidney disease (CKD) 08/24/2022 Overview (09/01/2022): EGFR 38 History of simultaneous kidney and pancreas cross splant 02/07/2021 Overview (09/01/2022): [facility] A-V fistula 10/18/2019 Former smoker 08/26/2018 Primary hypertension 06/30/2016 Fatty liver Charcot's joint of foot, right Overview (04/04/2018): right talus particularly documented as of this encounter (statuses as of 06/30/2024) Resolved Problems Problem Noted Date Diagnosed Date Resolved Date Pancreas transplanted 02/07/20212023 Dialysis headache 04/22/2020 08/11/2021 Peritoneal dialysis status 11/10/2019 1 MSSA bacteremia 10/03/2019 05/24/2020 Overview (10/18/2019): [facility] Peritoneal dialysis catheter dysfunction 05/22/2019 06/19/2019 End stage renal disease 10/05/201807/24 Neurogenic bladder 08/26/2018 Diabetes mellitus with nephropathy 08/26/2018 08/11/2021 Type 1 diabetes mellitus wit h Charcot's joint of foot 08/15/2018 08/11/2021 Leukoplakia of oral cavity 04/01/2018 0 03/07/2024 Urinary retention 03/01/2018 10/05/2018 Acute kidney injury superimp osed on chronic kidney disease 12/11/2017 07/12/2018 Overview (12/20/2017): [facility], creat 2.5, hgb 8.7, A1c [...] retinopathy and without macular edema 05/29/2015 06/30/2016 Overview (06/17/2015): - long standing h/o Type 1 diabets DXD at age 13 YO. Presented with severe DKA. -Has had multiple DKA's since the diagnosis, last DKA was spring. Hospitalized at [facility] Migraine, hemiplegic 12/20/2008 024 Overview (12/26/2018): [facility] ER for headache, chest pain, [...] as of this encounter (statuses as of 06/30/2024) Immunizations Name Administration Dates Next Due COVID-19 [...] Recorded Sex Assigned at Not on file Legal Sex Male 7:19 AM EST Gender Identity Not on file Sexual Orientation Not on file documented as of this encounter Functional Status * Does this person have serious difficulty walking or climbing stairs? Answer Date of Assessment Author Yes 02/09/2019 4:28 PM EDT documented as of this encounter Plan of Treatment Upcoming Encounters Date Type Department Care Team (Late st Contact Info) Description 03/07/2025 1:50 PM EDT Office Visit Family Medicine [address] [place] [phone] [address] [place] [address] Health Maintenance Due Date Last Done Comments Albumin/Creatinine Ratio 11/16/2017 017, 01/05/2003, 04/05/2002, Additional history exists COVID-19 Vaccine (3 - Moderna risk series) 12/23/2020 11/25/2020, 10/28/2020 DTap/Tdap Vaccines (7 - Td or Tdap) 01/21/2021 01/21/2011, 09/07/1988, 10/11/1985, Additional history exists Depression Screening 08/28/2021 08/28/2020 Influenza Vaccine (FLU shot) (#1) 2024 07/30/2022, 05/23/2020, 04/23/2020, Additional history exists GFR 12/25/2024 06/27/2024, 05/24, 03/08/2024, Additional history exists Lipid [...] Date/Time Associated Diagnosis Comments OUTSIDE LAB RESULTS 06/27/2024 documented in this encounter Results * OUTSIDE LAB RESULTS (06/27/2024) 06/27/2024 us No Physician Data Unknown LABORATORY Final Result documented in this encounter Care Teams Park Activities Coordinator Relationship Specialty Start Date End Date Taylor Faustin DO [address] [place] [address] [place] [phone] PCP - General Internal Medicine 03/07/24 documented as of this encounter
--- OUTSIDE RECORDS SUMMARY | 2024-07-02 12:00 | External Medical Summary | Summary of Care ---
Author Name Unknown Organization [facility] Address [address] [place] [address] Phone [phone] Care Team Providers Care Senior Net Web Developer Name Role Phone Taylor Faustin DO Primary Care Provider [phone] Encounter Details Date Type Department Care Team (Late st Contact Info) Description 06/16/2024 Orders Only Family Medicine [address] [place] [phone] Taylor Faustin DO [address] [place] [address] [place] [phone] Allergies Active Allergy Reactions Criticality Noted Date [...] kidney and pancreas cross splant 02/07/2021 Overview: [facility] A-V fistula 10/18/2019 Former smoker 08/26/2018 Primary hypertension 06/30/2016 Fatty liver Charcot's joint of foot, right Overview: right talus particularly documented as of this encounter (statuses as of 06/16/2024) Resolved Problems Problem Noted Date Diagnosed Date Resolved Date Pancreas transplanted 02/07/20212023 Dialysis headache 04/22/2020 08/11/2021 Peritoneal dialysis status 11/10/2019 1 MSSA bacteremia 10/03/2019 05/24/2020 Overview: [facility] Peritoneal dialysis catheter dysfunction 05/22/2019 06/19/2019 End stage renal disease 10/05/201807/24 Neurogenic bladder 08/26/2018 Diabetes mellitus with nephropathy 08/26/2018 08/11/2021 Type 1 diabetes mellitus wit h Charcot's joint of foot 08/15/2018 08/11/2021 Leukoplakia of oral cavity 04/01/2018 0 03/07/2024 Urinary retention 03/01/2018 10/05/2018 Acute kidney injury superimp osed on chronic kidney disease 12/11/2017 07/12/2018 Overview: [facility], creat 2.5, hgb 8.7, A1c 13.7 CKD [...] diagnosis, last DKA was spring. Hospitalized at [facility] Migraine, hemiplegic 12/20/2008 024 Overview: [facility] ER for headache, chest pain, left arm [...] 1:50 PM EDT Office Visit Family Medicine [address] [place] [phone] Taylor Faust[address] [place] [address] Health Maintenance Due Date Last Done Comments [...] Priority Date/Time Associated Diagnosis Comments CHEMISTRY-OUTSIDE Routine 06/15/2024 documented in this encounter Results * (ABNORMAL) CHEMISTRY-OUTSIDE (06/15/2024) Not all results display below - see scan for full detail OUTSIDE LAB (SEE SCANNED REPORT) Comment:SEE SCAN - CBCD, BMP , HA1C, LIPASE MAG PHOS, URIC ACID CREATININE 3.82(A) 0.70 - 1.30 MG/DL OUTSIDE LAB (SEE SCANNED REPORT) EGFR 20 ML/MIN OUTSIDE LA B (SEE SCANNED REPORT) POTASSIUM 5.0 3.5 - 5.1 MMOL/L OUTSIDE LAB (SEE SCANNED REPORT) GLUCOSE 93 70 - 110 MG/DL OUTSIDE LAB (SEE [...] LAB OUTSIDE LAB (SEE SCANNED REPORT) HEMOGLOBIN, [id number] LAB 5.2 3.8 - 5.6 % OUTSIDE LAB (SEE SCANNED REPORT) PHOSPHORUS-OUTSID E LAB 4.1 2.5 - 4.9 MG/DL OUTSIDE LAB (SEE SCANNED REPORT) PTH-OUTSIDE LAB OUTS MANUEL LAB (SEE SCANNED REPORT) MICROALBUMIN RATIO-OUTSIDE LAB OUTSIDE LA B (SEE SCANNED REPORT) PROTEIN, UA-OUTSIDE LAB OUTSIDE LAB (SEE SCANNED REPORT) HGB 16.0 13.5 - 18.0 G/DL OUTSIDE LAB (SEE SCANNED REPORT) 06/15/2024 History Per Patient LABORATORY OUTSIDE LAB (SEE SCANNED REPORT) documented in this encounter Care Teams Senior Net Web Developer Relationship Specialty Start Date End Date Taylor Faustin DO [address] [place] [address] [place] [address] PCP - General Internal Medicine 03/07/24 documented as of this encounter
--- OUTSIDE RECORDS SUMMARY | 2024-07-02 12:00 | External Medical Summary | Summary of Care ---
Author Name Unknown Organization [facility] Address [address] [place] [address] Phone [phone] Care Team Providers Care Senior Architect Name Role Phone Taylor Faustin DO Primary Care Provider [phone] Encounter Details Date Type Department Care Team (Late st Contact Info) Description 06/28/2024 Orders Only Family Medicine [address] [place] [phone] Taylor Faustin DO [address] [place] [address] [place] [address] Allergies Active Allergy Reactions Criticality Noted Date [...] kidney and pancreas cross splant 02/07/2021 Overview: [facility] A-V fistula 10/18/2019 Former smoker 08/26/2018 Primary hypertension 06/30/2016 Fatty liver Charcot's joint of foot, right Overview: right talus particularly documented as of this encounter (statuses as of 06/28/2024) Resolved Problems Problem Noted Date Diagnosed Date Resolved Date Pancreas transplanted 02/07/20212023 Dialysis headache 04/22/2020 08/11/2021 Peritoneal dialysis status 11/10/2019 1 MSSA bacteremia 10/03/2019 05/24/2020 Overview: [facility] Peritoneal dialysis catheter dysfunction 05/22/2019 06/19/2019 End stage renal disease 10/05/201807/24 Neurogenic bladder 08/26/2018 Diabetes mellitus with nephropathy 08/26/2018 08/11/2021 Type 1 diabetes mellitus wit h Charcot's joint of foot 08/15/2018 08/11/2021 Leukoplakia of oral cavity 04/01/2018 0 03/07/2024 Urinary retention 03/01/2018 10/05/2018 Acute kidney injury superimp osed on chronic kidney disease 12/11/2017 07/12/2018 Overview: [facility], creat 2.5, hgb 8.7, A1c [...] diagnosis, last DKA was spring. Hospitalized at [facility] Migraine, hemiplegic 12/20/2008 024 Overview: [facility] ER for headache, chest pain, [...] 1:50 PM EDT Office Visit Family Medicine [address] [place] [phone] Taylor Faust[address] [place] [address] Health Maintenance Due Date Last Done Comments [...] 06/27/2024 documented in this encounter Results * CHEMISTRY-OUTSIDE (06/27/2024) Not all results display below - see scan for full detail OUTSIDE LAB (SEE SCANNED REPORT) Comment:SCAN INCL: CBCD CREATININE OUTSIDE L AB (SEE SCANNED REPORT) EGFR OUTSIDE LA B (SEE SCANNED REPORT) POTASSIUM OUTSIDE LA B (SEE SCANNED REPORT) GLUCOSE OUTSIDE LA B (SEE SCANNED REPORT) HOURS FASTING OUTSID E LAB (SEE SCANNED REPORT) TRIGLYCERIDES-OUT SIDE LAB OUTSIDE LAB (SEE SCANNED REPORT) CHOLESTEROL-OUTSI DE LAB OUTSIDE LAB (SEE SCANNED REPORT) HDL-OUTSIDE LAB OUTS MANUEL LAB (SEE SCANNED REPORT) CHOL/HDL RATIO-OUTSIDE LAB OUTSIDE LA B (SEE SCANNED REPORT) LDL (CALCULATED)-OUTS MANUEL LAB OUTSIDE LAB (SEE SCANNED REPORT) LDL (DIRECT MEASURE)-OUTSIDE LAB OUTSIDE LAB (SEE SCANNED REPORT) HEMOGLOBIN, [id number] LAB OUTSIDE LAB (SEE SCANNED REPORT) PHOSPHORUS-OUTSID E LAB OUTSIDE LAB (SEE SCANNED REPORT) PTH-OUTSIDE LAB OUTS MANUEL LAB (SEE SCANNED REPORT) MICROALBUMIN RATIO-OUTSIDE LAB OUTSIDE LA B (SEE SCANNED REPORT) PROTEIN, UA-OUTSIDE LAB OUTSIDE LAB (SEE SCANNED REPORT) HGB 14.6 13.5 - 18.0 GM/DL OUTSIDE LAB (SEE SCANNED REPORT) 06/27/2024 History Per Patient LABORATORY OUTSIDE LAB (SEE SCANNED REPORT) documented in this encounter Care Teams Senior Architect Relationship Specialty Start Date End Date Taylor Faustin DO [address] [place] [address] [place] [address] PCP - General Internal Medicine 03/07/24 documented as of this encounter
[2024-07-02 12:33] LABS: Basophils # (auto) 0.07 K/uL (0.00-0.20); Basophils % (auto) 1.1 %; Eosinophils # (auto) 0.04 K/uL (0.00-0.50); Eosinophils % (auto) 0.7 %; Hematocrit (blood only) 44.5 % (42.0-52.0); Hemoglobin 14.7 g/dl (14.0-18.0); Immature Granulocytes # (auto) 0.02 K/uL (0.01-0.20); Immature Granulocytes % (auto) 0.3 %; Lymphocytes # (auto) 1.34 K/uL (1.20-3.40); Lymphocytes % (auto) 21.8 %; Mean Corpuscular Volume 90.8 fL (80.0-100.0); Mean Platelet Volume 11.3 fL (9.4-12.4); Monocytes % (auto) 8.1 %; Neutrophils # (auto) 4.17 K/uL (1.40-6.50); Platelet Count 158 K/uL (130-400); RDW Coefficient of Variation 14.3 % (11.5-14.5); RDW Standard Deviation 48.2 fL (36.4-46.3); White Blood Count 6.14 K/ul (4.8-10.8)
[2024-07-02 12:46] LABS: Albumin Globulin Ratio 1.2 (0.9-2); Albumin Level 3.7 gm/dl (3.4-5.0); BUN Creatinine Ratio 16.3 (10-20); Bilirubin,Total 0.6 mg/dl (0.2-1.0); Calcium 9.2 mg/dl (8.6-10.3); Creatinine Clr Calc Pharmacy 22.1 ml/min; Globulin 3.1 gm/dl (2.5-4.0); Potassium 4.7 mmol/L (3.5-5.1); Total Protein 6.8 gm/dl (6.0-8.3)
[2024-07-02 12:53] LABS: Troponin I High Sensitivity 15.9 pg/ml (0-20)
[2024-07-02 12:56] LABS: Partial Thromboplastin Time 28 Seconds (21-31)
[2024-07-02 14:29] LABS: Magnesium 1.8 mg/dl (1.7-2.4)
--- NOTE | 2024-07-02 14:51 | Emergency Department Note ---
Impression & Plan Acute kidney injury superimposed on chronic kidney disease, Hypertensive emergency ED Provider Note HISTORY OF PRESENT ILLNESS: Patient is a 39-year-old male presenting due to abnormal lab test. Patient has a history of a renal and pancreas transplant for type 1 diabetes. He states his transplant was 3 years ago at the [facility]. He states that he has been getting blood work through [facility] and it reportedly has not been being released down to his tissue coordinator. He recently was able to access his lab test results and noticed that his creatinine was 3.9 and he was concerned about renal failure. He reports has been feeling generally unwell for the last few days. Reports nausea and a few episodes of vomiting. He reports slightly decreased urinary output. Denies any dysuria or hematuria. He denies any measured fevers at home. Denies any chest pain or shortness of breath. He states he has been having difficulties getting in touch with his tissue coordinator and he got worried about his creatinine numbers, prompting him to present to the emergency department. He currently complains of diffuse headache. Patient reports he has been taking his tacrolimus and cellcept without missing any doses. ROS: as above PHYSICAL EXAM: Constitutional: Patient appears in no acute distress. HENT: Head: Normocephalic and atraumatic. Eyes: EOMI, PERRL Mouth/Throat: Mucous membranes moist. Neck: Trachea midline. Neck supple. Cardiovascular: RRR, No murmurs, rubs or gallops. Intact distal pulses. Pulmonary/Chest: No respiratory distress. Breath sounds clear and equal bilaterally. No wheezes or rales. Abdominal: Abdomen soft, no tenderness, rebound or guarding. Musculoskeletal: No edema, tenderness or deformity noted. Skin: Warm and dry. No rash, erythema, pallor or cyanosis Psychiatric: Appropriate mood and affect for situation. Neurological: Alert and keenly responsive. CN II-XII grossly intact, moving all extremities equally and fully. MDM: - Vitals signs showed hypertension - History obtained via patient. History as above. - Chronic conditions affecting care: DM-1; renal transplant; pancreas transplant; HTN - Differential diagnoses include, but are not limited to: obstruction; UTI; hypertensive urgency; ureteral stone; renal transplant failure - Order placed for continuous cardiac monitoring. At this time, monitor showed rate of 98 bpm with normal sinus rhythm, per my interpretation. - External medical records reviewed. Discharge summary dated 07/31/2022 was reviewed. Patient was admitted that time for shortness of breath secondary to pneumonia and fever in the setting of pancreatic and renal transplant. - EKG interpreted by myself showed normal sinus rhythm. Rate 78 bpm. QT 418. No acute ischemic changes. - Patient initially given 10 mg IV hydralazine for blood pressure, with minimal improvement in his blood pressure. A repeat 10 mg IV hydralazine was ordered, with repeat blood pressure in the 180s. - Laboratory workup interpreted by myself showed normal WBC; normal PT/INR; normal lactate; normal procalcitonin; JUANA on CKD (Cr 4.29); normal troponin - Viral respiratory panel negative - UA negative for infection - Given 1g IV tylenol for headache. - CT abdomen/pelvis negative for acute pathology. Patient will cholecystitis and recommended ultrasound. - US gallbladder showed a dilated and thickened gallbladder with surrounding fluid. Wall thickening may be secondary to ascites. - Did discuss case with the transplant manager human resources at [facility], Dr. José Hassan at 15:40. He reports that based on patient's renal function, this probably been ongoing for a while and he does not feel the patient requires admission as long as he is tolerating oral intake. Reports that the patient should try to drink around 3 L of water a day. He reports that the patient should follow-up and call clinic to schedule an appointment because he will need a biopsy of his kidney. He recommended that the patient call his tissue coordinator tomorrow to arrange follow-up for the biopsy. Does not feel the patient requires admission based on a kidney function standpoint and does not feel the patient requires transfer. He reports that the patient's antirejection medications are appropriately dosed and he should continue these. - Patient's repeat blood pressure up to 190s again. Concern about patient's end-organ injury secondary to his hypertension. Will admit for hypertensive emergency. - Discussion was had with case assistant about patient's case and need for admission - Hospitalist consulted for admission - [facility]. ASSESSMENT AND PLAN: Diagnosis: JUANA on CKD; hypertensive emergency Plan: admit Past Med/Surg History Problem List (Updated 07/02/24 @ 17:17 by Ivory Calle MD) Hypertensive emergency (Acute) Acute kidney injury superimposed on chronic kidney disease (Acute) History of pancreas transplant (Acute) History of kidney transplant (Acute) SIRS (systemic inflammatory response syndrome) (Acute) Immunosuppressed status (Acute) Influenza A (Acute) Hyponatremia Influenza Pneumonia Recurrent UTI Incomplete bladder emptying Hyperkalemia Complicated UTI (urinary tract infection) Acute UTI (Acute) COVID-19 (Acute) Acute hyperkalemia (Acute) At risk for fertility problems Hypertension Chronic wound of extremity Erectile dysfunction Anemia DVT prophylaxis Immunosuppressed status Pancreas transplanted January 2021-[facility] Kidney transplanted (Acute) January 2021-[facility] Acute UTI (Acute) Pneumonia of both lower lobes Hypoxia (Acute) Acute dyspnea (Acute) Cough (Acute) Fever (Acute) Fluid overload (Acute) Acute respiratory failure UTI (urinary tract infection) Hypertensive urgency Aspiration pneumonia Hypoxia Sepsis (Acute) Pneumonia (Acute) End stage renal disease (Acute) DVT prophylaxis Acute respiratory failure with hypoxia Pneumonitis ESRD on dialysis Bacteremia due to Staphylococcus aureus MSSA bacteremia 10/05/19 treated with cefazolin x 6 wks Anemia in ESRD (end-stage renal disease) (Chronic) Prolonged QT interval (Chronic) TIA (transient ischemic attack) (Chronic) Nephrotic syndrome due to diabetes mellitus (Chronic) Fatty liver (Chronic) Charcot foot due to diabetes mellitus (Chronic) Diabetic retinopathy (Chronic) 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) Medical History Anemia in ESRD (end-stage renal disease) At risk for fertility problems Bacteremia due to Staphylococcus aureus MSSA bacteremia 10/05/19 treated with cefazolin x 6 wks Charcot foot due to diabetes mellitus Chronic wound of extremity Complicated UTI (urinary tract infection) Diabetes mellitus type 1 with complications Diabetic retinopathy Erectile dysfunction ESRD on dialysis Fatty liver History of peritoneal dialysis Hyperkalemia Hypertension Nephrotic syndrome due to diabetes mellitus Peritoneal dialysis catheter in place REMOVED 11/10/19 Prolonged QT interval TIA (transient ischemic attack) Surgical History Kidney transplanted January 2021-[facility] Pancreas transplanted January 2021-[facility] S/P eye surgery Family History Mother Hypertension Grandfather (Maternal) Diabetes Grandmother (Maternal) Diabetes Grandmother (Paternal) Diabetes Social History Smoking Status: Never smoker Tobacco Type: Cigarettes Cigarettes Per Day: 10; Second Hand Exposure: No; Do You Dip or Chew Tobacco: No; Hx Alcohol Use: No Hx Substance Use: No Preferred Language: Pashto Communication Ability: Effective Visual Impairment: Limited Smooth Plater Required: No Beliefs That Will Affect Care: None marital status: Single Current Living Situation: Alone current occupational status: employed Feels Safe at Home: Yes Assistive Devices: None Allergies Allergies Allergy/AdvReac Type Severity Reaction Status Date / Time NSAIDS (Non-Steroidal AdvReac Unknown RENAL Verified 01/24/24 19:10 Anti-Inflamma FAILURE Home Meds Home Medications Medication Instructions Recorded Confirmed aspirin 325 mg tablet,delayed 325 mg PO DAILY 07/29/22 07/02/24 release fludrocortisone 0.1 mg tablet 0.1 mg PO UD 07/29/22 07/02/24 hydralazine 10 mg tablet 10 mg PO UD 07/29/22 07/02/24 tamsulosin 0.4 mg capsule 0.4 mg PO UD 07/29/22 07/02/24 lisinopril 5 mg tablet 2.5 mg PO UD 01/24/24 07/02/24 mycophenolate sodium 180 mg 360 mg PO BID 01/24/24 07/02/24 tablet,delayed release tacrolimus 1 mg capsule, See Rx Instructions .Route .COMPLEX 01/24/24 07/02/24 immediate-release atorvastatin 40 mg tablet 40 mg PO UD 07/02/24 07/02/24 Results & Data (ED) Vital Signs Vital Signs - 24 hr 07/02/24 11:59 07/02/24 12:56 07/02/24 12:56 Temperature 36.8 C 36.5 C Temperature Source Temporal Artery Scan Oral Pulse Rate 81 82 Pulse Rate [Apical] 83 Pulse Rhythm Regular Pulse Rhythm [Apical] Pulse Strength Normal Pulse Strength [Apical] Respiratory Rate 20 16 Respiratory Effort / Characteristics Non-Labored Spontaneous Respiratory Depth Normal Respiratory Pattern Regular Blood Pressure 222/110 H Blood Pressure [Left Arm] 224/114 H Blood Pressure Mean 147 Blood Pressure Mean [Left Arm] 150 Blood Pressure Position Sitting Blood Pressure Position [Left Arm] Pulse Oximetry 98 98 Oxygen Delivery Method Room Air Room Air Sepsis Recent Fever Within 48 Hours No Sepsis New/Unexplained Change in Mental Status No Sepsis Action Taken by Nursing No Action Required 07/02/24 14:16 07/02/24 15:00 07/02/24 16:28 Temperature Temperature Source Pulse Rate Pulse Rate [Apical] 84 88 96 H Pulse Rhythm Pulse Rhythm [Apical] Regular Regular Pulse Strength Pulse Strength [Apical] Normal Normal Respiratory Rate 18 20 20 Respiratory Effort / Characteristics Non-Labored Spontaneous Non-Labored Spontaneous Respiratory Depth Normal Normal Respiratory Pattern Regular Regular Blood Pressure Blood Pressure [Left Arm] 232/124 H 220/114 H 189/91 H Blood Pressure Mean Blood Pressure Mean [Left Arm] 160 149 123 Blood Pressure Position Blood Pressure Position [Left Arm] Sitting Sitting Pulse Oximetry 96 97 97 Oxygen Delivery Method Room Air Room Air Sepsis Recent Fever Within 48 Hours Sepsis New/Unexplained Change in Mental Status Sepsis Action Taken by Nursing 07/02/24 17:01 07/02/24 17:04 Temperature Temperature Source Pulse Rate 98 H Pulse Rate [Apical] 98 H Pulse Rhythm Pulse Rhythm [Apical] Regular Pulse Strength Pulse Strength [Apical] Normal Respiratory Rate 20 Respiratory Effort / Characteristics Non-Labored Spontaneous Respiratory Depth Normal Respiratory Pattern Regular Blood Pressure Blood Pressure [Left Arm] 192/100 H Blood Pressure Mean Blood Pressure Mean [Left Arm] 130 Blood Pressure Position Blood Pressure Position [Left Arm] Sitting Pulse Oximetry 95 Oxygen Delivery Method Room Air Sepsis Recent Fever Within 48 Hours Sepsis New/Unexplained Change in Mental Status Sepsis Action Taken by Nursing Laboratory Data 07/02/24 12:16 07/02/24 12:16 Lab Results 07/02/24 07/02/24 07/02/24 Range/Units 12:16 14:12 15:15 WBC 6.14 (4.8-10.8) K/ul RBC 4.90 (4.70-6.10) M/uL Hgb 14.7 (14.0-18.0) g/dl Hct 44.5 (42.0-52.0) % MCV 90.8 (80.0-100.0) fL MCH 30.0 (25.0-34.0) pg MCHC 33.0 (32.0-36.0) g/dL RDW Std Deviation 48.2 H (36.4-46.3) fL RDW Coeff of Ralph 14.3 (11.5-14.5) % Plt Count 158 (130-400) K/uL MPV 11.3 (9.4-12.4) fL Immature Gran % (Auto) 0.3 % Neut % (Auto) 68.0 % Lymph % (Auto) 21.8 % Gillespie % (Auto) 8.1 % Eos % (Auto) 0.7 % Baso % (Auto) 1.1 % Neut # (Auto) 4.17 (1.40-6.50) K/uL Lymph # (Auto) 1.34 (1.20-3.40) K/uL Gillespie # (Auto) 0.50 (0.11-0.59) K/uL Eos # (Auto) 0.04 (0.00-0.50) K/uL Baso # (Auto) 0.07 (0.00-0.20) K/uL Immature Gran # (Auto) 0.02 (0.01-0.20) K/uL APTT 28 (21-31) Seconds PTT Ratio 1.0 Sodium 139 (136-145) mmol/L Potassium 4.7 (3.5-5.1) mmol/L Chloride 111 H (98-107) mmol/L Carbon Dioxide 20 L (21-32) mmol/L Anion Gap 8 (3-11) BUN 70 H (6-23) mg/dl Creatinine 4.29 H (0.6-1.4) mg/dl Est Cr Clr Drug Dosing 22.1 ml/min eGFR 17.00 BUN/Creatinine Ratio 16.3 (10-20) Glucose 93 (70-99(Fasting)) mg/dl Lactate (0.4-2.0) mmol/L Calcium 9.2 (8.6-10.3) mg/dl Magnesium 1.8 (1.7-2.4) mg/dl Total Bilirubin 0.6 (0.2-1.0) mg/dl AST 15 (13-39) U/L ALT 12 (7-52) U/L Alkaline Phosphatase 70 (34-104) U/L Troponin I High Sens 15.9 (0-20) pg/ml Total Protein 6.8 (6.0-8.3) gm/dl Albumin 3.7 (3.4-5.0) gm/dl Globulin 3.1 (2.5-4.0) gm/dl Albumin/Globulin Ratio 1.2 (0.9-2) Procalcitonin 0.11 (0-0.5) ng/ml Urine Color Yellow Urine Appearance Clear (Clear) Urine pH 6.0 (4.5-7.5) Ur Specific [place] 1.017 (1.000-1.030) Urine Protein 4+ H (Negative) Urine Glucose (UA) Negative (Negative) Urine Ketones Negative (Negative) Urine Blood 1+ H (Negative) Urine Nitrite Negative (Negative) Urine Bilirubin Negative (Negative) Urine Urobilinogen Negative (Negative) Ur Leukocyte Esterase Negative (Negative) Urine WBC (Auto) 0-5 (0-5) /hpf Urine RBC (Auto) 6-10 H (0-2) /hpf U Hyaline Cast (Auto) 3-5 H (0-2) /lpf U Epithel Cells (Auto) 0-2 (0-2) /hpf Urine Bacteria (Auto) None Seen (None Seen) Urine Sperm Present A (None Prsent) Adenovirus (PCR) Not Detected (NotDetected) B. pertussis DNA (PCR) Not Detected (NotDetected) B.parapertussis DNA PCR Not Detected (NotDetected) C. pneumoniae DNA (PCR) Not Detected (NotDetected) Coronavirus OC43 (PCR) Not Detected (NotDetected) Coronavirus HKU1 (PCR) Not Detected (NotDetected) Coronavirus 229E (PCR) Not Detected (NotDetected) SARS-CoV-2 (PCR) Not Detected (NotDetected) Coronavirus NL63 (PCR) Not Detected (NotDetected) Human Metapneumovir PCR Not Detected (NotDetected) Influenza Type A (PCR) Not Detected (NotDetected) Influenza Type B (PCR) Not Detected (NotDetected) M. pneumoniae (PCR) Not Detected (NotDetected) Parainfluenza 1 (PCR) Not Detected (NotDetected) Parainfluenza 2 (PCR) Not Detected (NotDetected) Parainfluenza 3 (PCR) Not Detected (NotDetected) Parainfluenza 4 (PCR) Not Detected (NotDetected) RSV (PCR) Not Detected (NotDetected) Entero/Rhino (PCR) Not Detected (NotDetected) 07/02/24 Range/Units 15:25 WBC (4.8-10.8) K/ul RBC (4.70-6.10) M/uL Hgb (14.0-18.0) g/dl Hct (42.0-52.0) % MCV (80.0-100.0) fL MCH (25.0-34.0) pg MCHC (32.0-36.0) g/dL RDW Std Deviation (36.4-46.3) fL RDW Coeff of Ralph (11.5-14.5) % Plt Count (130-400) K/uL MPV (9.4-12.4) fL Immature Gran % (Auto) % Neut % (Auto) % Lymph % (Auto) % Gillespie % (Auto) % Eos % (Auto) % Baso % (Auto) % Neut # (Auto) (1.40-6.50) K/uL Lymph # (Auto) (1.20-3.40) K/uL [place]pie # (Auto) (0.11-0.59) K/uL Eos # (Auto) (0.00-0.50) K/uL Baso # (Auto) (0.00-0.20) K/uL Immature Gran # (Auto) (0.01-0.20) K/uL APTT (21-31) Seconds PTT Ratio Sodium (136-145) mmol/L Potassium (3.5-5.1) mmol/L Chloride (98-107) mmol/L Carbon Dioxide (21-32) mmol/L Anion Gap (3-11) BUN (6-23) mg/dl Creatinine (0.6-1.4) mg/dl Est Cr Clr Drug Dosing ml/min eGFR BUN/Creatinine Ratio (10-20) Glucose (70-99(Fasting)) mg/dl Lactate 0.5 (0.4-2.0) mmol/L Calcium (8.6-10.3) mg/dl Magnesium (1.7-2.4) mg/dl Total Bilirubin (0.2-1.0) mg/dl AST (13-39) U/L ALT (7-52) U/L Alkaline Phosphatase (34-104) U/L Troponin I High Sens (0-20) pg/ml Total Protein (6.0-8.3) gm/dl Albumin (3.4-5.0) gm/dl Globulin (2.5-4.0) gm/dl Albumin/Globulin Ratio (0.9-2) Procalcitonin (0-0.5) ng/ml Urine Color Urine Appearance (Clear) Urine pH (4.5-7.5) Ur Specific [place] (1.000-1.030) Urine Protein (Negative) Urine Glucose (UA) (Negative) Urine Ketones (Negative) Urine Blood (Negative) Urine Nitrite (Negative) Urine Bilirubin (Negative) Urine Urobilinogen (Negative) Ur Leukocyte Esterase (Negative) Urine WBC (Auto) (0-5) /hpf Urine RBC (Auto) (0-2) /hpf U Hyaline Cast (Auto) (0-2) /lpf U Epithel Cells (Auto) (0-2) /hpf Urine Bacteria (Auto) (None Seen) Urine Sperm (None Prsent) Adenovirus (PCR) (NotDetected) B. pertussis DNA (PCR) (NotDetected) B.parapertussis DNA PCR (NotDetected) C. pneumoniae DNA (PCR) (NotDetected) Coronavirus OC43 (PCR) (NotDetected) Coronavirus HKU1 (PCR) (NotDetected) Coronavirus 229E (PCR) (NotDetected) SARS-CoV-2 (PCR) (NotDetected) Coronavirus NL63 (PCR) (NotDetected) Human Metapneumovir PCR (NotDetected) Influenza Type A (PCR) (NotDetected) Influenza Type B (PCR) (NotDetected) M. pneumoniae (PCR) (NotDetected) Parainfluenza 1 (PCR) (NotDetected) Parainfluenza 2 (PCR) (NotDetected) Parainfluenza 3 (PCR) (NotDetected) Parainfluenza 4 (PCR) (NotDetected) RSV (PCR) (NotDetected) Entero/Rhino (PCR) (NotDetected) Administered Medications Discontinued Medications Hydralazine HCl (Hydralazine Hcl 20 Mg/Ml Vial) 10 mg IV NOW STA Stop: 07/02/24 14:48 Last Admin: 07/02/24 14:57 Dose: 10 mg Documented By: MNE Hydralazine HCl (Hydralazine Hcl 20 Mg/Ml Vial) 10 mg IV NOW STA Stop: 07/02/24 15:41 Last Admin: 07/02/24 15:44 Dose: 10 mg Documented By: NILAY Sodium Chloride (Nss) 500 mls @ 999 mls/hr IV .Q31M ONE Stop: 07/02/24 15:17 Last Infusion: 07/02/24 15:28 Dose: Infused Documented By: Admin: 07/02/24 14:57 Dose: 999 mls/hr Documented By: NILAY Acetaminophen (Ofirmev) 1,000 mg in 100 mls @ 400 mls/hr IV NOW STA Stop: 07/02/24 15:01 Last Infusion: 07/02/24 15:12 Dose: Infused Documented By: Admin: 07/02/24 14:57 Dose: 400 mls/hr Documented By: NILAY Imaging Data Radiologist's Impression: Abdomen/Pelvis CT 07/02/24 14:27 EXAM: CT Abdomen and Pelvis Without Intravenous Contrast INDICATION: Worsening renal failure of the transplant. Nausea and vomiting. TECHNIQUE: Axial computed tomography images of the abdomen and pelvis without intravenous contrast. Sagittal and coronal reformatted images were created and reviewed. This CT exam was performed using one or more of the following dose reduction techniques: automated exposure control, adjustment of the mA and/or kV according to patient size, and/or use of iterative reconstruction technique. COMPARISON: 12/21/2021 FINDINGS: Limitations: None. Lung bases: Bilateral lower lobe airway thickening and atelectasis noted. Pleural space: Small layering right pleural effusion. Heart: Cardiomegaly and stable small pericardial effusion. Mediastinum: No abnormality noted. ABDOMEN: Liver: Lack of intravenous contrast limits detection of some masses. No abnormality noted. Gallbladder and bile ducts: The gallbladder appears mildly thickened and may contain sludge. No ductal dilatation. No calcified stone noted. Pancreas: No pancreatic mass, calcification, inflammation or ductal dilation noted. Spleen: No significant abnormality noted. Adrenals: No significant abnormality noted. Kidneys and ureters: Left lower quadrant renal transplant noted and appears unchanged. No hydronephrosis or gas. No surrounding fluid. Stable small size of the [place] kidneys with increased size of nonobstructing bilateral stones measuring up to 5 mm. No perinephric fluid. No urinary gas. Stomach and bowel: Scattered moderate colonic stool. No obstruction. PELVIS: Appendix: No findings to suggest acute appendicitis. Bladder: Stable circumferential prominence of the urinary bladder wall. No gas or stone. Reproductive: Visualized portions of penile implant appear normal. ABDOMEN and PELVIS: Intraperitoneal space: Small amounts of free fluid noted in the right upper quadrant and dependent pelvis. No abscess. No free air. Bones/joints: No acute abnormality. Soft tissues: Right pelvic soft tissue changes likely reflect a previously failed transplant. Vasculature: No aneurysm. Dense atherosclerosis. Lymph nodes: Increased prominent and few minimally enlarged likely reactive lateral aortic retroperitoneal lymph nodes. Increased prominent bilateral iliac and inguinal reactive nodes. IMPRESSION: 1. Question cholecystitis. Recommend ultrasound. 2. No interval change in appearance of left pelvic renal transplant compared to 2021. No surrounding fluid or gas. 3. Slight increase size and numbers of nonobstructing stones in the [place] kidneys. No hydronephrosis. 4. Bilateral lower lobe bronchitis and atelectasis with small right pleural effusion. ACT 112: Negative or not required by law. Electronically signed by Stefani Michelle 07-02-2024 3:07 PM Gallbladder Ultrasound 07/02/24 15:16 EXAM: US Abdomen Limited Right Upper Quadrant INDICATION: Abdominal pain. Abnormal CT earlier today. TECHNIQUE: Real-time ultrasound of the right upper quadrant with image documentation. COMPARISON: CT abdomen the same day FINDINGS: Liver: The liver is enlarged to 18.9 cm and echogenic. Contour smooth. No mass or ductal dilatation. Gallbladder: The gallbladder is mildly distended. The wall is thickened and edematous up to 5.5 mm. Mild pericholecystic fluid noted. No stones. Common bile duct: No significant abnormality noted. No stones. No dilation. Pancreas: No significant abnormality noted. Right kidney: 8.5 cm long. Normal cortical thickness and echotexture. Small echogenic reflections noted consistent with nonobstructing stone seen on CT. No mass or hydronephrosis. IMPRESSION: 1. The gallbladder is dilated and thickened with surrounding fluid. No stones. Wall thickening could be secondary to the presence of ascites or other entities such as passive congestion or low protein state. 2. Large fatty liver. 3. Atrophic [place] right kidney with nonobstructing stones. ACT 112: Negative or not required by law. Electronically signed by Stefani Michelle 07-02-2024 4:30 PM Discharge Plan Visit Data Chief Complaint: Infection Stated Complaint: KIDNEY FAILURE/POST TRANSPLANT, CONFUSION, FEVER ED Provider: Ivory Calle Discharge Problem: Acute kidney injury superimposed on chronic kidney disease, Hypertensive emergency Forms Stand Alone Forms: [facility] Prescriptions Prescriptions: No Action hydralazine 10 mg tablet 10 mg PO UD Rx Instructions: 10 mg po hs. no fill history available aspirin 325 mg tablet,delayed release (DR/EC) 325 mg PO DAILY Rx Instructions: otc unable to verify tamsulosin 0.4 mg capsule 0.4 mg PO UD Rx Instructions: 0.4 mg po hs. no fill history available fludrocortisone 0.1 mg tablet 0.1 mg PO UD Rx Instructions: 0.1 mg po daily. last filled 01/03/24 30 day supply lisinopril 5 mg tablet 2.5 mg PO UD Rx Instructions: 25 mg po qam. last filled 08/06/23 tacrolimus 1 mg capsule See Rx Instructions .ROUTE .COMPLEX Rx Instructions: Take 3mg by mouth in the morning and 2mg by mouth at bedtime filled 06/26 30 day supply mycophenolate sodium 180 mg tablet,delayed release (DR/EC) 360 mg PO BID Rx Instructions: filled 06/26 30 day supply atorvastatin 40 mg tablet 40 mg PO UD Rx Instructions: 40 mg po daily. last filled 03/25 30 day supply Referrals Referrals: Rosie Duarte MD [Primary Care Provider] -
[2024-07-02] MEDS: SODIUM CHLORIDE 0.9% 500 ML IV ONE (14:57)
[2024-07-02] MEDS: ACETAMINOPHEN 1,000 MG/100 ML VIAL IV STA (14:57)
[2024-07-02] MEDS: hydrALAZINE HCL 20 MG/ML VIAL IV STA ×2 (14:57→15:44)
--- NOTE | 2024-07-02 15:07 | CT Scan Report ---
EXAM: CT Abdomen and Pelvis Without Intravenous Contrast INDICATION: Worsening renal failure of the transplant. Nausea and vomiting. TECHNIQUE: Axial computed tomography images of the abdomen and pelvis without intravenous contrast. Sagittal and coronal reformatted images were created and reviewed. This CT exam was performed using one or more of the following dose reduction techniques: automated exposure control, adjustment of the mA and/or kV according to patient size, and/or use of iterative reconstruction technique. COMPARISON: 12/21/2021 FINDINGS: Limitations: None. Lung bases: Bilateral lower lobe airway thickening and atelectasis noted. Pleural space: Small layering right pleural effusion. Heart: Cardiomegaly and stable small pericardial effusion. Mediastinum: No abnormality noted. ABDOMEN: Liver: Lack of intravenous contrast limits detection of some masses. No abnormality noted. Gallbladder and bile ducts: The gallbladder appears mildly thickened and may contain sludge. No ductal dilatation. No calcified stone noted. Pancreas: No pancreatic mass, calcification, inflammation or ductal dilation noted. Spleen: No significant abnormality noted. Adrenals: No significant abnormality noted. Kidneys and ureters: Left lower quadrant renal transplant noted and appears unchanged. No hydronephrosis or gas. No surrounding fluid. Stable small size of the [place] kidneys with increased size of nonobstructing bilateral stones measuring up to 5 mm. No perinephric fluid. No urinary gas. Stomach and bowel: Scattered moderate colonic stool. No obstruction. PELVIS: Appendix: No findings to suggest acute appendicitis. Bladder: Stable circumferential prominence of the urinary bladder wall. No gas or stone. Reproductive: Visualized portions of penile implant appear normal. ABDOMEN and PELVIS: Intraperitoneal space: Small amounts of free fluid noted in the right upper quadrant and dependent pelvis. No abscess. No free air. Bones/joints: No acute abnormality. Soft tissues: Right pelvic soft tissue changes likely reflect a previously failed transplant. Vasculature: No aneurysm. Dense atherosclerosis. Lymph nodes: Increased prominent and few minimally enlarged likely reactive lateral aortic retroperitoneal lymph nodes. Increased prominent bilateral iliac and inguinal reactive nodes. IMPRESSION: 1. Question cholecystitis. Recommend ultrasound. 2. No interval change in appearance of left pelvic renal transplant compared to 2021. No surrounding fluid or gas. 3. Slight increase size and numbers of nonobstructing stones in the [place] kidneys. No hydronephrosis. 4. Bilateral lower lobe bronchitis and atelectasis with small right pleural effusion. ACT 112: Negative or not required by law. Electronically signed by Stefani Michelle-10-2024 3:07 PM
[2024-07-02 15:22] LABS: Adenovirus PCR Not Detected (NotDetected); Bordetella parapertussis PCR Not Detected (NotDetected); Bordetella pertussis PCR Not Detected (NotDetected); Chlamydia pneumoniae PCR Not Detected (NotDetected); Coronavirus 229E PCR Not Detected (NotDetected); Coronavirus CoV-2 (COVID19)PCR Not Detected (NotDetected); Coronavirus HKU1 PCR Not Detected (NotDetected); Coronavirus NL63 PCR Not Detected (NotDetected); Coronavirus OC43PCR Not Detected (NotDetected); Human Metapneumovirus PCR Not Detected (NotDetected); Influenza A PCR Not Detected (NotDetected); Influenza B PCR Not Detected (NotDetected); Mycoplasma pneumoniae PCR Not Detected (NotDetected); Parainfluenza Virus 1 PCR Not Detected (NotDetected); Parainfluenza Virus 2 PCR Not Detected (NotDetected); Parainfluenza Virus 3 PCR Not Detected (NotDetected); Parainfluenza Virus 4 PCR Not Detected (NotDetected); Respiratory Syncytial VirusPCR Not Detected (NotDetected); Rhinovirus/Enterovirus PCR Not Detected (NotDetected)
[2024-07-02 15:39] LABS: Appearance Urine Clear (Clear); Bacteria Urine Automated None Seen (None Seen); Bilirubin Urine Negative (Negative); Blood Urine 1+ (Negative); Color Urine Yellow; Epithelial Cell Urine Auto 0-2 /hpf (0-2); Glucose Urine UA Negative (Negative); Ketones Urine Negative (Negative); Leukocyte Esterase Urine Negative (Negative); Nitrite Urine Negative (Negative); Protein Urine 4+ (Negative); Specific Gravity Urine 1.017 (1.000-1.030); Sperm Urine Present (None Prsent); Urobilinogen Urine Negative (Negative); WBC Urine Automated 0-5 /hpf (0-5)
--- NOTE | 2024-07-02 16:30 | Ultrasound Report ---
EXAM: US Abdomen Limited Right Upper Quadrant INDICATION: Abdominal pain. Abnormal CT earlier today. TECHNIQUE: Real-time ultrasound of the right upper quadrant with image documentation. COMPARISON: CT abdomen the same day FINDINGS: Liver: The liver is enlarged to 18.9 cm and echogenic. Contour smooth. No mass or ductal dilatation. Gallbladder: The gallbladder is mildly distended. The wall is thickened and edematous up to 5.5 mm. Mild pericholecystic fluid noted. No stones. Common bile duct: No significant abnormality noted. No stones. No dilation. Pancreas: No significant abnormality noted. Right kidney: 8.5 cm long. Normal cortical thickness and echotexture. Small echogenic reflections noted consistent with nonobstructing stone seen on CT. No mass or hydronephrosis. IMPRESSION: 1. The gallbladder is dilated and thickened with surrounding fluid. No stones. Wall thickening could be secondary to the presence of ascites or other entities such as passive congestion or low protein state. 2. Large fatty liver. 3. Atrophic [place] right kidney with nonobstructing stones. ACT 112: Negative or not required by law. Electronically signed by Stefani Michelle 07-02-2024 4:30 PM
[2024-07-02] MEDS: ONDANSETRON INJ 2 MG/ML 2 ML VIAL IV STA ×2 (18:23→18:24)
[2024-07-02] MEDS ORDERED: ACETAMINOPHEN 325 MG TAB PO PRN (18:42)
[2024-07-02] MEDS ORDERED: POLYETHYLENE (MIRALAX) 17 GM PACK PO PRN (18:42)
--- NOTE | 2024-07-02 18:52 | History & Physical Report ---
Date of Service July 02, 2024 Assessment & Plan (1) Acute kidney injury superimposed on chronic kidney disease: (2) History of pancreas transplant: (3) History of kidney transplant: (4) Hypertensive urgency: Plan Patient is a 46-year-old male with past medical history of type 1 diabetes mellitus, renal failure previously on dialysis; kidney/pancreas transplant in [facility], hypertension, Charcot joint of right foot presented to the hospital for concern of progressive kidney failure. ED physician discussed with the transplant physician at [facility]; recommended outpatient follow-up for possible renal biopsy; recommended to continue immunosuppressant medications. He was found to be in hypertensive urgency requiring IV medications for which he was referred for admission JUANA on CKD Proteinuria History of renal/pancreas transplant Hypertensive urgency Patient presents with creatinine of 4.29; last creatinine on 06/27 of 3.99, creatinine on 06/15 of 3.82 Urinalysis shows 4+ protein, 1+ blood No leukocytosis present. CT abdomen and pelvis did not show any acute findings; found to have bilateral lower lobe bronchitis and questionable cystitis. Gallbladder ultrasound showed dilated and thickened gallbladder; likely secondary to presence of ascites. Patient denied abdominal pain/ no tenderness of examination Obtain protein creatinine ratio for significant proteinuria Blood pressure to be gradually reduced over the course of next few days. Started on amlodipine 5 mg and Coreg 6.25 mg bid Labetalol as needed for SBP greater than 180 mmHg. Ultrasound of transplanted kidney ordered Obtained tacrolimus level Continue current doses of tacrolimus and mycophenolate as per his transplant physician Nephrology consulted for comanagement Full code DVT prophylaxis heparin Time spent evaluating patient, direct bedside care, chart review, placing orders, interpretation of diagnostic studies, discussion with consultants, patient, and family members, as well as other required patient management activities is 75 minutes Please note the above document was generated using voice recognition software. It may contain grammatical, syntax or spelling errors. Any formal questions or concerns about the content, text or information contained within the body of this dictation should be directly addressed to the provider for clarification History of Present Illness Chief Complaint: Progressive renal failure Primary Care Provider: Rosie Duarte MD History obtained from chart review and interview with the patient Past medical history of type 1 diabetes, renal failure previously on dialysis, underwent pancreas and kidney transplant in [facility] hypertension, Charcot joint of right foot Patient presented to the hospital after he noticed that his creatinine was 3.9 and was concerned of progressive renal failure. Patient reports that he has not been feeling well for last 1 month; reports nausea and occasional vomiting, low appetite. He also reports decreasing urine output as well over the course of 1 month He denies feeling short of breath; endorses some swelling in his bilateral lower extremity. He reports that his follow-up at [facility] was several months ago; he is concerned that his lab work done at [facility] is not transmitted to the [facility] transplant provider. He reports history of high blood pressure in the past for which he was prescribed low-dose lisinopril a year ago; denies any history of it prior to that. He still has AV fistula on his right arm from prior dialysis. He reports being compliant to the immunosuppressant. Chart review of BMP: 06/27- creatinine of 3.99 06/15creatinine of 3.82 03/09creatinine of 2.86 As above, his creatinine seems to be gradually worsening over the course of last several months. On presentation to the ED, he was hypertensive with blood pressure of 222/110; other vitals were stable. Patient was given 2 doses of IV hydralazine with some improvement in the blood pressure. No leukocytosis present CT abdomen and pelvis did not show any acute findings; found to have bilateral lower lobe bronchitis and questionable cystitis. Gallbladder ultrasound showed dilated and thickened gallbladder; likely secondary to presence of ascites. Patient denied abdominal pain. ED provider discussed with his transplant physician; recommended patient did not need to be admitted or transferred. ED provider also discussed medication regarding tacrolimus and mycophenolate; recommended to continue those at current dose. Allergies Allergy/AdvReac Type Severity Reaction Status Date / Time NSAIDS (Non-Steroidal AdvReac Unknown RENAL Verified 01/24/24 19:10 Anti-Inflamma FAILURE Home Medications Medication Instructions Recorded Confirmed Type aspirin 325 mg tablet,delayed 325 mg PO DAILY 07/29/22 07/02/24 History release mycophenolate sodium 180 mg 360 mg PO BID 01/24/24 07/02/24 History tablet,delayed release tacrolimus 1 mg capsule, See Rx Instructions .Route .COMPLEX 01/24/24 07/02/24 History immediate-release atorvastatin 40 mg tablet 40 mg PO UD 07/02/24 07/02/24 History Past Med/Surg History Problem List (Updated 07/02/24 @ 17:17 by Ivory Calle MD) Hypertensive emergency (Acute) Acute kidney injury superimposed on chronic kidney disease (Acute) History of pancreas transplant (Acute) History of kidney transplant (Acute) SIRS (systemic inflammatory response syndrome) (Acute) Immunosuppressed status (Acute) Influenza A (Acute) Hyponatremia Influenza Pneumonia Recurrent UTI Incomplete bladder emptying Hyperkalemia Complicated UTI (urinary tract infection) Acute UTI (Acute) COVID-19 (Acute) Acute hyperkalemia (Acute) At risk for fertility problems Hypertension Chronic wound of extremity Erectile dysfunction Anemia DVT prophylaxis Immunosuppressed status Pancreas transplanted January 2021-[facility] Kidney transplanted (Acute) January 2021-[facility] Acute UTI (Acute) Pneumonia of both lower lobes Hypoxia (Acute) Acute dyspnea (Acute) Cough (Acute) Fever (Acute) Fluid overload (Acute) Acute respiratory failure UTI (urinary tract infection) Hypertensive urgency Aspiration pneumonia Hypoxia Sepsis (Acute) Pneumonia (Acute) End stage renal disease (Acute) DVT prophylaxis Acute respiratory failure with hypoxia Pneumonitis ESRD on dialysis Bacteremia due to Staphylococcus aureus MSSA bacteremia 10/05/19 treated with cefazolin x 6 wks Anemia in ESRD (end-stage renal disease) (Chronic) Prolonged QT interval (Chronic) TIA (transient ischemic attack) (Chronic) Nephrotic syndrome due to diabetes mellitus (Chronic) Fatty liver (Chronic) Charcot foot due to diabetes mellitus (Chronic) Diabetic retinopathy (Chronic) 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) Medical History Anemia in ESRD (end-stage renal disease) At risk for fertility problems Bacteremia due to Staphylococcus aureus MSSA bacteremia 10/05/19 treated with cefazolin x 6 wks Charcot foot due to diabetes mellitus Chronic wound of extremity Complicated UTI (urinary tract infection) Diabetes mellitus type 1 with complications Diabetic retinopathy Erectile dysfunction ESRD on dialysis Fatty liver History of peritoneal dialysis Hyperkalemia Hypertension Nephrotic syndrome due to diabetes mellitus Peritoneal dialysis catheter in place REMOVED 11/10/19 Prolonged QT interval TIA (transient ischemic attack) Surgical History Kidney transplanted January 2021-[facility] Pancreas transplanted January 2021-[facility] S/P eye surgery Family History Mother Hypertension Grandfather (Maternal) Diabetes Grandmother (Maternal) Diabetes Grandmother (Paternal) Diabetes Social History Smoking Status: Never smoker Tobacco Type: Cigarettes Cigarettes Per Day: 10; Second Hand Exposure: No; Do You Dip or Chew Tobacco: No; Hx Alcohol Use: No Hx Substance Use: No Preferred Language: Ivorian Communication Ability: Effective Visual Impairment: Limited Systems Technologist Required: No Beliefs That Will Affect Care: None marital status: Single Current Living Situation: Alone current occupational status: employed Feels Safe at Home: Yes Assistive Devices: None Review of Systems Review of Systems: All systems reviewed & are unremarkable except as noted in Subjective Physical Exam Physical Exam: Constitutional: Alert oriented x 3; reports some nausea. In mild distress. Respiratory: Bilateral vesicular breath sound. Cardiovascular: RRR, no murmur, no edema Vessels: no JVD or carotid bruit Chest: normal inspection of chest Abdomen: Soft, nontender. Musculoskeletal: no cyanosis or clubbing, extremities motor strength 5/5. Has AV fistula on his right arm; bruit present. Neurologic: PERRL, EOMI, accommodation nl, no face palsy, no dysarthria CN's II- XI intact bilaterally and moves all extremities Psychiatric: A+Ox3, euthymic affect Results & Data Results & Data Vital Signs (Past 12 Hours) Vital Signs Temp Pulse Pulse Resp BP BP Pulse Ox 07/02/24 18:00 95 H 20 197/100 H 97 07/02/24 17:04 98 H 20 192/100 H 95 07/02/24 17:01 98 H 07/02/24 16:28 96 H 20 189/91 H 97 07/02/24 15:00 88 20 220/114 H 97 07/02/24 14:16 84 18 232/124 H 96 07/02/24 12:56 36.5 C 83 16 224/114 H 98 07/02/24 12:56 82 07/02/24 11:59 36.8 C 81 20 222/110 H 98 O2 Del Method 07/02/24 18:00 Room Air 07/02/24 17:04 Room Air 07/02/24 17:01 07/02/24 16:28 Room Air 07/02/24 15:00 Room Air 07/02/24 14:16 07/02/24 12:56 Room Air 07/02/24 12:56 07/02/24 11:59 Room Air
[2024-07-02] MEDS: carvediloL 6.25 MG TAB PO SCH (20:11)
[2024-07-02] MEDS: amLODIPine BESYLATE 5 MG TAB PO SCH (21:19)
[2024-07-02] MEDS: ONDANSETRON INJ 2 MG/ML 2 ML VIAL IV PRN (21:52)
[2024-07-02] MEDS: MYCOPHENOLATE SODIUM 180 MG TAB PO SCH (22:10)
[2024-07-02] MEDS: TACROLIMUS 1 MG CAP PO SCH (22:10)
[2024-07-02] MEDS: HEPARIN SOD 5,000 UNIT/0.5 ML VIAL SQ SCH (22:15)
[2024-07-03] MEDS: LABETALOL HCL IV 5 MG/ML 20ML IV PRN (01:12)
[2024-07-03] MEDS ORDERED: oxyCODONE HCL IR 5 MG TAB (IMMEDIATE RELEASE) PO PRN (01:46)
[2024-07-03] MEDS: hydrALAZINE HCL 20 MG/ML VIAL IV ONE (02:06)
[2024-07-03] MEDS: oxyCODONE HCL IR 5 MG TAB (IMMEDIATE RELEASE) PO STA (02:12)
[2024-07-03] MEDS: ACETAMINOPHEN 1,000 MG/100 ML VIAL IV STA (02:34)
[2024-07-03] MEDS: PROMETHAZINE 6.25 MG/50.25 ML BAG IV STA (02:53)
--- NOTE | 2024-07-03 05:47 | CT Scan Report ---
EXAM: CT head/brain wo con CLINICAL HISTORY: c/o headaches elevated bp INPATIENT TECHNIQUE: Axial non-contrast CT scan of the brain was performed from the skull base to the high parietal region. One of the following dose reduction techniques were utilized for this exam: Automated exposure control, adjustment of the mA and/or kV according to patient size, use of iterative reconstruction. CTDI: 37.69, total DLP: 547.75 mGy.cm COMPARISON: 10/03/2019 FINDINGS: Brain Parenchyma: Multiple subcortical and periventricular white matter hypodensities. New finding. Normal attenuation of the cerebral hemispheres, cerebellum, and brainstem. No evidence of acute infarct, hemorrhage, or mass effect. No abnormal areas of hyperattenuation. Ventricular System: Unchanged capacious ventricular system. No evidence of hydrocephalus or ventricular enlargement. Subarachnoid Spaces: Normal sulci and cisterns. No evidence of subarachnoid hemorrhage or extra-axial fluid collections. Cerebellum and Brainstem: Normal size and attenuation. No masses, lesions, or areas of abnormal attenuation. Orbits: Normal appearance of the globes, optic nerves, and extraocular muscles. No evidence of orbital masses or abnormal attenuation. Sinuses: Clear paranasal sinuses. No evidence of sinusitis or mucosal thickening. Mastoid Air Cells: Clear mastoid air cells. No evidence of mastoiditis. Skull and Meninges: Normal skull morphology. Vessels : Significant atherosclerotic changes of the both internal carotid and vertebral arteries. New finding. IMPRESSION: 1. No acute intracranial hemorrhage. 2. Multiple subcortical and periventricular white matter hypodensities. This nonspecific could be due to microvascular ischemic changes/Hypertensive microangiopathy. Recommend MRI brain for detailed evaluation as clinically needed. New finding. 3. Significant atherosclerotic changes of both internal carotid and vertebral arteries. 4. Otherwise, no significant interval changes compared to prior study dated on 10/03/2019. Electronically signed by Elder Menard 07-03-2024 05:47 AM
[2024-07-03] MEDS: MAGNESIUM SULFATE / D5W 1 GM/100 ML BAG IV ONE (07:18)
[2024-07-03] MEDS: ATORVASTATIN 40 MG TAB PO SCH (08:00)
[2024-07-03] MEDS: ASPIRIN 325 MG ECTAB PO SCH (08:00)
[2024-07-03 08:56] LABS: Basophils # (auto) 0.05 K/uL (0.00-0.20); Eosinophils # (auto) 0.02 K/uL (0.00-0.50); Eosinophils % (auto) 0.4 %; Hematocrit (blood only) 41.3 % (42.0-52.0); Hemoglobin 13.7 g/dl (14.0-18.0); Immature Granulocytes # (auto) 0.01 K/uL (0.01-0.20); Immature Granulocytes % (auto) 0.2 %; Lymphocytes # (auto) 1.67 K/uL (1.20-3.40); Lymphocytes % (auto) 31.9 %; Mean Corpuscular Hemoglobin 29.7 pg (25.0-34.0); Mean Corpuscular Hgb Conc 33.2 g/dL (32.0-36.0); Mean Corpuscular Volume 89.6 fL (80.0-100.0); Mean Platelet Volume 11.5 fL (9.4-12.4); Monocytes % (auto) 9.5 %; Neutrophils # (auto) 2.99 K/uL (1.40-6.50); Platelet Count 158 K/uL (130-400); RDW Coefficient of Variation 14.6 % (11.5-14.5); RDW Standard Deviation 47.9 fL (36.4-46.3); Red Blood Count 4.61 M/uL (4.70-6.10); White Blood Count 5.24 K/ul (4.8-10.8)
[2024-07-03] MEDS: carvediloL 12.5 MG TAB PO SCH (08:57)
[2024-07-03 09:14] LABS: Calcium 9.2 mg/dl (8.6-10.3); Creatinine Clr Calc Pharmacy 22.4 ml/min; Potassium 4.8 mmol/L (3.5-5.1)
--- NOTE | 2024-07-03 10:58 | Nephrology Consultation ---
Date of Consultation July 03, 2024 Assessment & Plan (1) Acute kidney injury superimposed on chronic kidney disease: Current creat of 4.2 is much higher than few months back. Does not appear volume depleted. IN fact looks overloaded. he needs renal allograft biopsy to further manage this. Avoid NSAIDS, Diuretics, MICHELLE/ARB for now. (2) History of kidney transplant: Given rising creat in a renal transplant patient over the last few months, I Do feel he needs renal allograft biopsy for further management. Given this he will need transfer to his transplant center [facility]. has been accepted and waiting for bed. till transfer continue Current prograf dose 3 bid and MMF same dose. (3) History of pancreas transplant: (4) Hypertensive emergency: BP was 220 + last night and is better now but still high 176. Continue amlo 5 HS and Coreg 12.5 bid. may need a bigger dose but he is being transferred so will defer that to [facility]. also getting Iv Hydralazine and Iv Labetalol. For now will avoid MICHELLE/ARB/Diuretics given worsening renal function. Plan total time spent 55 mins. History of Present Illness Reason for Consultation: Huber on CKD in renal Transplant patient Attending Physician: Roshan Youssef MD History of Present Illness 39/M with type 1 diabetes, ESRD previously on dialysis, underwent pancreas and kidney transplant in [facility] in 2020, Long standing hypertension. patient came in because of rising Creat over the last few months. 03/09creatinine of 2.86 then 06/15creatinine of 3.82 then 11/- creatinine of 3.99. He has not been feeling well for last 1 month and reports nausea and occasional vomiting and low appetite. Says decreasing urine output as well over the course of 1 month. He denies feeling short of breath but does have swelling in his bilateral lower extremity. He had follow-up at [facility] several months ago. He reports being compliant to the immunosuppressant. On presentation to the ED, he was hypertensive with blood pressure of 222/110. He was given 2 doses of IV hydralazine with some improvement in the blood pressure. No leukocytosis present CT abdomen and pelvis did not show any acute findings. Also found to have bilateral lower lobe bronchitis and questionable cystitis. Gallbladder ultrasound showed dilated and thickened gallbladder; likely secondary to presence of ascites. Patient denied abdominal pain. ED provider discussed with his transplant physician at [facility]. yesterday recommended patient did not need to be admitted or transferred but has now accepted the patient for transfer.. ED provider also discussed medication regarding tacrolimus and mycophenolate and was recommended to continue those at current dose. BP is still high but better at 176/89. On Room air. Creat this AM same as yesterday at 4.2. ROS--see HPI. unless started otherwise 12 systems reviewed and negative Physical Exam Physical Exam: Constitutional: Alert oriented x 3 Respiratory: Bilateral Clear breath sound. Cardiovascular: RRR, no murmur, no edema no JVD Abdomen: Soft, nontender. Musculoskeletal: no cyanosis or clubbing, extremities motor strength 5/5. Has AV fistula on his right arm; bruit present. Psychiatric: AAo x 3, Normal affect Past Med/Surg History Problem List Hypertensive emergency (Acute) Acute kidney injury superimposed on chronic kidney disease (Acute) History of pancreas transplant (Acute) History of kidney transplant (Acute) SIRS (systemic inflammatory response syndrome) (Acute) Immunosuppressed status (Acute) Influenza A (Acute) Hyponatremia Influenza Pneumonia Recurrent UTI Incomplete bladder emptying Hyperkalemia Complicated UTI (urinary tract infection) Acute UTI (Acute) COVID-19 (Acute) Acute hyperkalemia (Acute) At risk for fertility problems Hypertension Chronic wound of extremity Erectile dysfunction Anemia DVT prophylaxis Immunosuppressed status [facility]) Pneumonia of both lower lobes Hypoxia (Acute) Acute dyspnea (Acute) Cough (Acute) Fever (Acute) Fluid overload (Acute) Acute respiratory failure UTI (urinary tract infection) Hypertensive urgency Aspiration pneumonia Hypoxia Sepsis (Acute) Pneumonia (Acute) End stage renal disease (Acute) DVT prophylaxis Acute respiratory failure with hypoxia Pneumonitis ESRD on dialysis Bacteremia due to Staphylococcus aureus MSSA bacteremia 10/05/19 treated with cefazolin x 6 wksAnemia in ESRD (end-stage renal disease) (Chronic) Prolonged QT interval (Chronic) TIA (transient ischemic attack) (Chronic) Nephrotic syndrome due to diabetes mellitus (Chronic) Fatty liver (Chronic) Charcot foot due to diabetes mellitus (Chronic) Diabetic retinopathy (Chronic) 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) Medical History Anemia in ESRD (end-stage renal disease) At risk for fertility problems Bacteremia due to Staphylococcus aureus MSSA bacteremia 10/05/19 treated with cefazolin x 6 wksCharcot foot due to diabetes mellitus Chronic wound of extremity Complicated UTI (urinary tract infection) Diabetes mellitus type 1 with complications Diabetic retinopathy Erectile dysfunction ESRD on dialysis Fatty liver History of peritoneal dialysis Hyperkalemia Hypertension Nephrotic syndrome due to diabetes mellitus Peritoneal dialysis catheter in place REMOVED 11/10/19Prolonged QT interval TIA (transient ischemic attack) Allergies Allergy/AdvReac Type Severity Reaction Status Date / Time NSAIDS (Non-Steroidal AdvReac Unknown RENAL Verified 01/24/24 19:10 Anti-Inflamma FAILURE Home Medications Medication Instructions Recorded Confirmed Type aspirin 325 mg tablet,delayed 325 mg PO DAILY 07/29/22 07/02/24 History release mycophenolate sodium 180 mg 360 mg PO BID 01/24/24 07/02/24 History tablet,delayed release tacrolimus 1 mg capsule, See Rx Instructions .Route .COMPLEX 01/24/24 07/02/24 History immediate-release atorvastatin 40 mg tablet 40 mg PO UD 07/02/24 07/02/24 History Patient History Medical History Peritoneal dialysis catheter in place REMOVED 11/10/19 History of peritoneal dialysis Surgical History S/P eye surgery Family History Mother Hypertension Grandfather (Maternal) Diabetes Grandmother (Maternal) Diabetes Grandmother (Paternal) Diabetes Social History Smoking Status: Former smoker Tobacco Type: Cigarettes Cigarettes Per Day: 10; Second Hand Exposure: No; Do You Dip or Chew Tobacco: No; Tobacco Cessation Education Requested by Patient: No Hx Alcohol Use: No Hx Substance Use: No Preferred Language: Belgian Communication Ability: Effective Visual Impairment: Limited 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 Beliefs That Will Affect Care: None marital status: Single Current Living Situation: Alone Current Living Situation Comment: lives at home alone current occupational status: employed Other Information That Helps Us Care for You: No Feels Safe at Home: Yes Safety Concerns: Feels Safe At This Time Assistive Devices: Glasses Results & Data Vital Signs (Past 12 Hours) Vital Signs Temp Pulse Pulse Resp BP BP Pulse Ox 07/03/24 09:15 176/89 H 07/03/24 07:50 37.0 C 86 18 187/90 H 96 07/03/24 07:17 74 07/03/24 04:35 122 H 07/03/24 03:46 36.8 C 80 18 155/73 H 96 07/03/24 01:36 73 207/98 H 07/03/24 01:35 73 207/98 H 07/03/24 01:12 90 215/110 H 07/03/24 01:00 37 C 90 16 215/110 H 97 O2 Del Method 07/03/24 09:15 07/03/24 07:50 Room Air 07/03/24 07:17 07/03/24 04:35 07/03/24 03:46 Room Air 07/03/24 01:36 07/03/24 01:35 07/03/24 01:12 07/03/24 01:00 Room Air Laboratory Results reviewed both outpt and inpt labs Diagnostic Findings Ct Abdomen IMPRESSION: 1. Question cholecystitis. Recommend ultrasound. 2. No interval change in appearance of left pelvic renal transplant compared to 2021. No surrounding fluid or gas. 3. Slight increase size and numbers of nonobstructing stones in the [place] kidneys. No hydronephrosis. 4. Bilateral lower lobe bronchitis and atelectasis with small right pleural effusion.
--- NOTE | 2024-07-03 11:59 | Magnetic Resonance Report ---
MR brain wo con HISTORY: [address] years-old Male CT findings, rule out stroke acute stroke like symptoms COMPARISON: Head CT of same day, brain MRI 12/31/2018 TECHNIQUE: Multiplanar multisequence MRI of the brain was obtained without IV contrast FINDINGS: There is no restricted diffusion. Midline structures appear unremarkable. Study is mildly motion degr aded. No acute intracranial hemorrhage, midline shift, abnormal extra-axial collection, hydrocephalus or intra-axial mass. The cerebral venous sinuses and major arterial flow voids appear patent. Mild mucosal thickening of t he paranasal sinuses, most pronounced in the left maxillary sinus. The mastoid air cells are clear. I nterval development of [id number] foci of increased T2/FLAIR prolongation within the white luis fernando er, most pronounced in a periventricular distribution with ill-defined mildly increased FLAIR signal within the central dinesh. IMPRESSION: 1. No acute intracranial abnormality. No acute or subacute infarct. 2. Mild to moderate T2/FLAIR hyperintense foci within the white matter is new from the 2019 study and is nonspecific. Considering the patient's age advanced atherosclerosis, chronic microvascular ischem ic disease is the primary differential consideration. Other entities such as a demyelinating process considered less likely. ACT 112: Negative or not required by law. The above report was generated using voice recognition software. It may contain grammatical, syntax o r spelling errors. Electronically signed by: Juanjose West M.D. 07/03/2024 11:57 AM
--- NOTE | 2024-07-03 13:20 | Hospitalist Progress Note ---
Date of Service July 03, 2024 Assessment & Plan (1) Acute kidney injury superimposed on chronic kidney disease: (2) History of pancreas transplant: (3) History of kidney transplant: (4) Hypertensive urgency: Plan Patient is a 46-year-old male with past medical history of type 1 diabetes mellitus, renal failure previously on dialysis; kidney/pancreas transplant in [facility], hypertension, Charcot joint of right foot presented to the hospital for concern of progressive kidney failure. JUANA on CKD Proteinuria History of renal/pancreas transplant Hypertensive urgency Patient presents with creatinine of 4.29; last creatinine on 06/27 of 3.99, cr eatinine on 06/15 of 3.82 Urinalysis shows 4+ protein, 1+ blood No leukocytosis present. CT abdomen and pelvis did not show any acute findings; found to have bilateral lower lobe bronchitis and questionable cystitis. Gallbladder ultrasound showed dilated and thickened gallbladder; likely secondary to presence of ascites. Patient denied abdominal pain/ no tenderness of examination Patient was started on amlodipine 5 mg and Coreg 12.5 mg for high blood pressure. He also underwent CT head without contrast for concern of headache; found to have multiple subcortical and periventricular white matter hypodensity. MRI brain showed mild to moderate T2/FLAIR hyperintense foci within white matter which is new from 2019 and is nonspecific. Considering patient's advanced atherosclerosis, chronic microvascular ischemic disease is the primary consideration. Given patient's progressive renal failure over the course of last few months and acutely over the last few days; discussion was done with [facility] transfer center(documentation consultant transfer instructional coach, on-call hospitalist); patient is accepted for transfer given the unavailability of transplant services here in the hospital. DVT prophylaxis heparin Full code Time spent evaluating patient, direct bedside care, chart review, placing orders, interpretation of diagnostic studies, discussion with consultants, patient, and family members, as well as other required patient management activities is 75 minutes Please note the above document was generated using voice recognition software. It may contain grammatical, syntax or spelling errors. Any formal questions or concerns about the content, text or information contained within the body of this dictation should be directly addressed to the provider for clarification Admission and Anticipated Discharge Date Admission Date: July 02, 2024 Subjective Patient seen and examined at bedside. He reports nausea and headache overnight requiring medications. He also underwent CT head without contrast; did not show any acute intracranial findings. Multiple subcortical and periventricular white matter hypodensities seen. Blood pressure persistently high Review of Systems Review of Systems: All systems reviewed & are unremarkable except as noted in Subjective Physical Exam Physical Exam: Constitutional: Alert oriented x 3; reports some nausea. In mild distress. Respiratory: Bilateral vesicular breath sound. Cardiovascular: RRR, no murmur, no edema Vessels: no JVD or carotid bruit Chest: normal inspection of chest Abdomen: Soft, nontender. Musculoskeletal: no cyanosis or clubbing, extremities motor strength 5/5. Has AV fistula on his right arm; bruit present. Neurologic: PERRL, EOMI, accommodation nl, no face palsy, no dysarthria CN's II- XI intact bilaterally and moves all extremities Psychiatric: A+Ox3, euthymic affect Results & Data Results & Data Vital Signs (Past 12 Hours) Vital Signs Temp Pulse Pulse Resp BP BP Pulse Ox 07/03/24 11:21 36.4 C L 65 18 152/79 H 97 07/03/24 09:15 176/89 H 07/03/24 07:50 37.0 C 86 18 187/90 H 96 07/03/24 07:17 74 07/03/24 04:35 122 H 07/03/24 03:46 36.8 C 80 18 155/73 H 96 07/03/24 01:36 73 207/98 H 07/03/24 01:35 73 207/98 H O2 Del Method 07/03/24 11:21 Room Air 07/03/24 09:15 07/03/24 07:50 Room Air 07/03/24 07:17 07/03/24 04:35 07/03/24 03:46 Room Air 07/03/24 01:36 07/03/24 01:35
--- NOTE | 2024-07-03 13:21 | Discharge Summary ---
Date of Service July 03, 2024 Admission HPI Per Admitting Provider History obtained from chart review and interview with the patient Past medical history of type 1 diabetes, renal failure previously on dialysis, underwent pancreas and kidney transplant in [facility] hypertension, Charcot joint of right foot Patient presented to the hospital after he noticed that his creatinine was 3.9 and was concerned of progressive renal failure. Patient reports that he has not been feeling well for last 1 month; reports nausea and occasional vomiting, low appetite. He also reports decreasing urine output as well over the course of 1 month He denies feeling short of breath; endorses some swelling in his bilateral lower extremity. He reports that his follow-up at [facility] was several months ago; he is concerned that his lab work done at [facility] is not transmitted to the [facility] transpl ant provider. He reports history of high blood pressure in the past for which he was prescribed low-dose lisinopril a year ago; denies any history of it prior to that. He still has AV fistula on his right arm from prior dialysis. He reports being compliant to the immunosuppressant. Chart review of BMP: 06/27- creatinine of 3.99 06/15creatinine of 3.82 03/09creatinine of 2.86 As above, his creatinine seems to be gradually worsening over the course of last several months. On presentation to the ED, he was hypertensive with blood pressure of 222/110; other vitals were stable. Patient was given 2 doses of IV hydralazine with some improvement in the blood pressure. No leukocytosis present CT abdomen and pelvis did not show any acute findings; found to have bilateral lower lobe bronchitis and questionable cystitis. Gallbladder ultrasound showed dilated and thickened gallbladder; likely secondary to presence of ascites. Patient denied abdominal pain. ED provider discussed with his transplant physician; recommended patient did not need to be admitted or transferred. ED provider also discussed medication regarding tacrolimus and mycophenolate; recommended to continue those at current dose. Admission Exam Per Admitting Provider Constitutional: Alert oriented x 3; reports some nausea. In mild distress. Respiratory: Bilateral vesicular breath sound. Cardiovascular: RRR, no murmur, no edema Vessels: no JVD or carotid bruit Chest: normal inspection of chest Abdomen: Soft, nontender. Musculoskeletal: no cyanosis or clubbing, extremities motor strength 5/5. Has AV fistula on his right arm; bruit present. Neurologic: PERRL, EOMI, accommodation nl, no face palsy, no dysarthria CN's II- XI intact bilaterally and moves all extremities Psychiatric: A+Ox3, euthymic affect Principal Diagnosis JUANA on CKD Proteinuria History of renal/pancreas transplant Hypertensive urgency Discharge Exam Constitutional: Alert oriented x 3; reports some nausea. In mild distress. Respiratory: Bilateral vesicular breath sound. Cardiovascular: RRR, no murmur, no edema Vessels: no JVD or carotid bruit Chest: normal inspection of chest Abdomen: Soft, nontender. Musculoskeletal: no cyanosis or clubbing, extremities motor strength 5/5. Has AV fistula on his right arm; bruit present. Neurologic: PERRL, EOMI, accommodation nl, no face palsy, no dysarthria CN's II- XI intact bilaterally and moves all extremities Psychiatric: A+Ox3, euthymic affect Discharge Data Allergies Allergy/AdvReac Type Severity Reaction Status Date / Time NSAIDS (Non-Steroidal AdvReac Unknown RENAL Verified 01/24/24 19:10 Anti-Inflamma FAILURE Consultations 07/02/24 18:13 ED Decision to Admit Stat 07/02/24 18:42 Consult Nephrology Routine 07/03/24 08:51 Consult Neurology Routine 07/03/24 12:29 Burn CD for patient Stat Ordered Studies 07/02/24 14:27 CT Abd and Pelvis [CT abd pelvis wo con] Stat 07/02/24 15:16 US gallbladder Stat 07/02/24 21:50 US renal transplant w dop Routine 07/03/24 01:47 CT head/brain wo con Stat 07/03/24 07:23 MRI Brain [MR brain wo con] Routine Hospital Course (1) Acute kidney injury superimposed on chronic kidney disease: (2) History of pancreas transplant: (3) History of kidney transplant: (4) Hypertensive urgency: Plan Patient is a 46-year-old male with past medical history of type 1 diabetes mellitus, renal failure previously on dialysis; kidney/pancreas transplant in [facility], hypertension, Charcot joint of right foot presented to the hospital for concern of progressive kidney failure. JUANA on CKD Proteinuria History of renal/pancreas transplant Hypertensive urgency Patient presents with creatinine of 4.29; last creatinine on 06/27 of 3.99, creatinine on 06/15 of 3.82 Urinalysis shows 4+ protein, 1+ blood No leukocytosis present. CT abdomen and pelvis did not show any acute findings; found to have bilateral lower lobe bronchitis and questionable cystitis. Gallbladder ultrasound showed dilated and thickened gallbladder; likely secondary to presence of ascites. Patient denied abdominal pain/ no tenderness of examination Patient was started on amlodipine 5 mg and Coreg 12.5 mg for high blood pressure. He also underwent CT head without contrast for concern of headache; found to have multiple subcortical and periventricular white matter hypodensity. MRI brain showed mild to moderate T2/FLAIR hyperintense foci within white matter which is new from 2019 and is nonspecific. Considering patient's advanced atherosclerosis, chronic microvascular ischemic disease is the primary consideration. Given patient's progressive renal failure over the course of last few months and acutely over the last few days; discussion was done with [facility] transfer center(health information coder transfer juke box mechanic, on-call hospitalist); patient is accepted for transfer given the unavailability of transplant services here in the hospital. Please note the above document was generated using voice recognition software. It may contain grammatical, syntax or spelling errors. Any formal questions or concerns about the content, text or information contained within the body of this dictation should be directly addressed to the provider for clarification Total Time Total Time Spent Total Time Spent (In Minutes): 75 Discharge Plan Discharge Items Patient Disposition: Transfer Acute Care Hospital Reason For Visit: HYPERTENSION, PROGRESSIVE CKD Discharge Diagnosis: Acute on chronic CKD Hypertensive urgency Activity: Resume your previous activity Non-emergency contact: Primary Care Provider Call non-emergency contact if: you have any medication questions and your symptoms worsen Follow-up/Referrals: Rosie Duarte MD [Primary Care Provider] - Diet: Regular Addtl Attending Provider Instructions: You were admitted to the hospital due to progressive kidney failure. You are being transferred to [facility] for further evaluation. Addtl Communications Editor Provider Instructions: Date of Service: July 03, 2024 Current Inpatient Medications Acetaminophen (Acetaminophen 325 Mg Tab) 650 mg PO Q4H PRN PRN Reason: Pain or Fever Stop: 08/01/24 18:41 Amlodipine Besylate (Amlodipine Besylate 5 Mg Tab) 5 mg PO HS EMERY Stop: 08/01/24 20:59 Last Admin: 07/02/24 21:19 Dose: 5 mg Aspirin (Aspirin 325 Mg Ectab) 325 mg PO DAILY EMERY Stop: 08/02/24 08:59 Last Admin: 07/03/24 08:00 Dose: 325 mg Atorvastatin Calcium (Atorvastatin 40 Mg Tab) 40 mg PO QAM [facility] Stop: 08/02/24 08:59 Last Admin: 07/03/24 08:00 Dose: 40 mg Carvedilol (Carvedilol 12.5 Mg Tab) 12.5 mg PO BIDM [facility] Stop: 08/02/24 07:59 Last Admin: 07/03/24 08:57 Dose: 12.5 mg Heparin Sodium (Porcine) (Heparin Sod 5,000 Unit/0.5 Ml Vial) 5,000 units SQ Q8 [facility] Stop: 08/01/24 21:59 Last Admin: 07/03/24 07:17 Dose: 5,000 units Labetalol HCl (Labetalol Hcl Iv 5 Mg/Ml 20ml) 10 mg IV Q6H PRN PRN Reason: SBP > 180 mm Hg Stop: 08/01/24 18:44 Last Admin: 07/03/24 01:12 Dose: 10 mg Mycophenolate Sodium (Mycophenolate Sodium 180 Mg Tab) 360 mg PO BID [facility] Stop: 08/01/24 21:49 Last Admin: 07/03/24 08:00 Dose: 360 mg Ondansetron HCl (Ondansetron Inj 2 Mg/Ml 2 Ml Vial) 4 mg IV Q6H PRN PRN Reason: Nausea Stop: 08/01/24 18:41 Last Admin: 07/02/24 21:52 Dose: 4 mg Oxycodone HCl (Oxycodone Hcl Ir 5 Mg Tab (Immediate Release)) 5 mg PO Q4H PRN PRN Reason: Pain Stop: 07/17/24 01:45 Polyethylene Glycol (Polyethylene (Miralax) 17 Gm Pack) 17 gm PO DAILY PRN PRN Reason: Constipation Stop: 08/01/24 18:41 Tacrolimus (Tacrolimus 1 Mg Cap) 3 mg PO BID [facility] Stop: 08/01/24 21:49 Last Admin: 07/03/24 08:00 Dose: 3 mg Pending Studies at Discharge: No Stand-Alone Forms: [facility] Skilled Items Patient informed of condition?: Yes DNR: No Discharge Level of Care: Other Communicable Disease: No Discharge Prognosis: Stable Lines: None and Peripheral IV Urinary Catheter: No Medications and DC Order Prescriptions: Continued aspirin 325 mg tablet,delayed release (DR/EC) 325 mg PO DAILY Rx Instructions: otc unable to verify tacrolimus 1 mg capsule See Rx Instructions .ROUTE .COMPLEX Rx Instructions: Take 3mg by mouth in the morning and 2mg by mouth at bedtime filled 06/26 30 day supply mycophenolate sodium 180 mg tablet,delayed release (/GYPSY) 360 mg PO BID Rx Instructions: filled 06/26 30 day supply atorvastatin 40 mg tablet 40 mg PO UD Rx Instructions: 40 mg po daily. last filled 03/25 30 day supply Discharge Orders: Discharge Order (Routine); Ordered 07/03/24 Ordered By: Roshan Youssef Admission Data Admit Date/Time: 07/02/24 18:42 Attending Provider: Roshan Youssef Admit Provider: Roshan Youssef Primary Care Provider: Rosie Duarte Other Providers: Roshan Youssef; Kellie Bains; Des Marcano; Braulio Henriquez; Arnol Gavin; Mayra Gomes; Laurie Aguiar; Bam Benson; Laurie Barfield; Xavier Padron; Thiago Vargas; Xavi Contreras; Arnaud Smith; Lilliana Rajan; Payam Skinner; Jamie Rosado; Ward Unger; Jose Alberto Serra; Lauryn Olivia; Massiel Jolly; Arnaud Bush; Angelique Miller
--- NOTE | 2024-07-03 14:05 | Neurology Consultation ---
Date of Consultation July 03, 2024 Assessment & Plan (1) Hypertensive emergency: Xavier Hicks is a 39 yo M presenting with new white matter changes, not present on the MRI in 2019. While HTN and DM are possible causes, the timecourse is unusual. Alternatively this may have been tacro neurotoxicity that subsequently healed, though he has no recollection of symptoms of acute neurotoxicity. Would recommend repeating the MRI in a year to determine if this was a static event or ongoing. His risk factors are otherwise being managed - regarding the HTN and HLD and the patient is already taking a daily aspirin which should continue. Recommend a second neuro opinion at [facility]. -- Continue aspirin -- Repeat MRI in a year -- Consider alternative rejection medication if possible Telehealth Consultation Telehealth Information Telehealth Information: I performed this visit using a real-time telehealth connection between my location and the patients location ([facility]). After connecting through interactive tele-video, patient was identified by name and date of and/or wristband check.Patient (or authorized healthcare national sales representative) was informed that this was a telemedicine visit and it was being conducted confidentially over secure lines. My office door was closed and no one else was present in the room with me.Patient (or authorized healthcare national sales representative) provided consent to proceed with the visit, expressed an understanding of privacy and security of the telemedicine visit, and gave permission to have a hospital national sales representative in the room in order to assist with the visit and to conduct portions of the visit, as needed. I informed the patient (or authorized healthcare national sales representative) that I reviewed their record and presented the opportunity for them to ask any questions regarding the visit today. The patient agreed to participate. History of Present Illness Reason for Consultation: Abnormal MRI Requesting Physician: Dr. Youssef Attending Physician: Roshan Youssef MD History of Present Illness Xavier Hicks is a 39 yo M presenting with uncontrolled HTN and renal dysfunction in the setting of a transplant 3 years ago. The patient denies any significant hospitalizations, episodes of confusion, seizures or vision changes since his transplant. He has been taking tacro for the last 3 years. He does get intermittent migraines but no unusual headaches. One episode of speech changes lasting 2 days but was prior to his transplant and they were unsure of the cause but felt it was due to his diabetes. Otherwise feels well currently, no confusion, weakness or numbness. He did have a headache on presentation but it has improved with BP control. He is otherwise waiting for a bed at [facility]. Allergies Allergy/AdvReac Type Severity Reaction Status Date / Time NSAIDS (Non-Steroidal AdvReac Unknown RENAL Verified 01/24/24 19:10 Anti-Inflamma FAILURE Home Medications Medication Instructions Recorded Confirmed Type aspirin 325 mg tablet,delayed 325 mg PO DAILY 07/29/22 07/02/24 History release mycophenolate sodium 180 mg 360 mg PO BID 01/24/24 07/02/24 History tablet,delayed release tacrolimus 1 mg capsule, See Rx Instructions .Route .COMPLEX 01/24/24 07/02/24 History immediate-release atorvastatin 40 mg tablet 40 mg PO UD 07/02/24 07/02/24 History Patient History Medical History Peritoneal dialysis catheter in place REMOVED 11/10/19 History of peritoneal dialysis Surgical History S/P eye surgery Family History Mother Hypertension Grandfather (Maternal) Diabetes Grandmother (Maternal) Diabetes Grandmother (Paternal) Diabetes Social History Smoking Status: Former smoker Tobacco Type: Cigarettes Cigarettes Per Day: 10; Second Hand Exposure: No; Do You Dip or Chew Tobacco: No; Tobacco Cessation Education Requested by Patient: No Hx Alcohol Use: No Hx Substance Use: No Preferred Language: Austrian Communication Ability: Effective Visual Impairment: Limited Human Services Worker Required: No Beliefs That Will Affect Care: None marital status: Single Current Living Situation: Alone Current Living Situation Comment: lives at home alone current occupational status: employed Other Information That Helps Us Care for You: No Feels Safe at Home: Yes Safety Concerns: Feels Safe At This Time Assistive Devices: Glasses Review of Systems +headache Physical Exam Awake and alert, speech fluent, no aphasia, oriented. Face symmetric, no abnormal movements, antigravity strength throughout. Results & Data Vital Signs (Past 12 Hours) Vital Signs Temp Pulse Pulse Resp BP Pulse Ox O2 Del Method 07/03/24 11:21 36.4 C L 65 18 152/79 H 97 Room Air 07/03/24 09:15 176/89 H 07/03/24 07:50 37.0 C 86 18 187/90 H 96 Room Air 07/03/24 07:17 74 07/03/24 04:35 122 H 07/03/24 03:46 36.8 C 80 18 155/73 H 96 Room Air Laboratory Results Abnormal lab results 07/02/24 07/03/24 Range/Units 15:15 08:32 RBC 4.61 L (4.70-6.10) M/uL Hgb 13.7 L (14.0-18.0) g/dl Hct 41.3 L (42.0-52.0) % RDW Std Deviation 47.9 H (36.4-46.3) fL RDW Coeff of Ralph 14.6 H (11.5-14.5) % Chloride 111 H (98-107) mmol/L Carbon Dioxide 19 L (21-32) mmol/L BUN 72 H (6-23) mg/dl Creatinine 4.24 H (0.6-1.4) mg/dl Glucose 131 H (70-99(Fasting)) mg/dl Urine Protein 4+ H (Negative) Urine Blood 1+ H (Negative) Urine RBC (Auto) 6-10 H (0-2) /hpf U Hyaline Cast (Auto) 3-5 H (0-2) /lpf Urine Sperm Present A (None Prsent) Diagnostic Findings MRI brain - Significantly increased periventricular white matter changes
[2024-07-03 15:34] LABS: Creatinine Urine Random 104.7 mg/dl; Protein Creatinine Ratio Urine 7.1 (0-0.2); Total Protein Urine Random 746.5 mg/dl (0-11.9)
[2024-07-04 07:02] LABS: Basophils # (auto) 0.06 K/uL (0.00-0.20); Basophils % (auto) 1.2 %; Eosinophils # (auto) 0.12 K/uL (0.00-0.50); Eosinophils % (auto) 2.4 %; Hematocrit (blood only) 40.9 % (42.0-52.0); Hemoglobin 13.2 g/dl (14.0-18.0); Immature Granulocytes # (auto) 0.01 K/uL (0.01-0.20); Immature Granulocytes % (auto) 0.2 %; Lymphocytes # (auto) 1.82 K/uL (1.20-3.40); Lymphocytes % (auto) 36.9 %; Mean Corpuscular Hemoglobin 29.7 pg (25.0-34.0); Mean Corpuscular Hgb Conc 32.3 g/dL (32.0-36.0); Mean Corpuscular Volume 92.1 fL (80.0-100.0); Mean Platelet Volume 11.8 fL (9.4-12.4); Monocytes # (auto) 0.57 K/uL (0.11-0.59); Monocytes % (auto) 11.6 %; Neutrophils # (auto) 2.35 K/uL (1.40-6.50); Neutrophils % (auto) 47.7 %; Platelet Count 121 K/uL (130-400); RDW Coefficient of Variation 14.6 % (11.5-14.5); RDW Standard Deviation 49.8 fL (36.4-46.3); Red Blood Count 4.44 M/uL (4.70-6.10); White Blood Count 4.93 K/ul (4.8-10.8)
[2024-07-04 07:20] LABS: BUN Creatinine Ratio 16.5 (10-20); Calcium 9.1 mg/dl (8.6-10.3); Creatinine Clr Calc Pharmacy 20.4 ml/min; Potassium 5.2 mmol/L (3.5-5.1)
--- NOTE | 2024-07-04 10:07 | Nephrology Progress Note ---
Date of Service July 04, 2024 Assessment & Plan Admission and Anticipated Discharge Date Admission Date: July 02, 2024 Subjective Assessment & Plan (1) Acute kidney injury superimposed on chronic kidney disease: Current creat of 4.66 is much higher than few months back. Does not appear volume depleted. IN fact looks overloaded. he needs renal allograft biopsy to further manage this. Avoid NSAIDS, Diuretics, MICHELLE/ARB for now. also K is rising and bicarb is falling so starting to have some electrolyte issues also. (2) History of kidney transplant: Given rising creat in a renal transplant patient over the last few months, I Do feel he needs renal allograft biopsy for further management. Given this he will need transfer to his transplant center [facility]. has been accepted and waiting for bed. till transfer continue Current prograf dose 3 bid and MMF same dose. (3) History of pancreas transplant: (4) Hypertensive emergency: BP was 220 + last night and is better now but still high 176. Continue amlo 5 HS and Coreg 12.5 bid. may need a bigger dose but he is being transferred so will defer that to [facility]. also getting Iv Hydralazine and Iv Labetalol. For now will avoid MICHELLE/ARB/Diuretics given worsening renal function. S--No new issues. he feels fine. Making urine. BP seems high but is coming down as per our goal. Labs getting worse. waiting for transfer to [facility] ROS--see HPI. unless started otherwise 12 systems reviewed and negative Physical Exam Physical Exam: Constitutional: Alert oriented x 3 Respiratory: Bilateral Clear breath sound. Cardiovascular: RRR, no murmur, 1+ edema no JVD Abdomen: Soft, nontender. Musculoskeletal: no cyanosis or clubbing, extremities motor strength 5/5. Has AV fistula on his right arm; bruit present. Psychiatric: AAo x 3, Normal affect Results & Data Vital Signs (Past 12 Hours) Vital Signs Temp Pulse Pulse Resp BP BP Pulse Ox 07/04/24 09:11 67 161/73 H 07/04/24 08:10 66 190/90 H 07/04/24 07:20 36.5 C 66 20 190/90 H 96 07/04/24 03:06 64 164/85 H 07/04/24 03:06 36.6 C 63 20 97 07/04/24 02:36 68 181/82 H 07/03/24 23:11 37.0 C 68 18 164/79 H 96 O2 Del Method 07/04/24 09:11 07/04/24 08:10 07/04/24 07:20 Room Air 07/04/24 03:06 07/04/24 03:06 Room Air 07/04/24 02:36 07/03/24 23:11 Room Air
[2024-07-04 11:26] VITALS: PULSE 64; O2SAT 98
[2024-07-04] MEDS: SODIUM ZIRCONIUM CYCLOSILICATE 10 GM PACKET PO SCH (11:40)
--- NOTE | 2024-07-04 12:46 | Hospitalist Progress Note ---
Date of Service July 04, 2024 Assessment & Plan (1) Acute kidney injury superimposed on chronic kidney disease: (2) History of pancreas transplant: (3) History of kidney transplant: (4) Hypertensive urgency: Plan Patient is a 46-year-old male with past medical history of type 1 diabetes mellitus, renal failure previously on dialysis; kidney/pancreas transplant in [facility], hypertension, Charcot joint of right foot presented to the hospital for concern of progressive kidney failure. JUANA on CKD Proteinuria History of renal/pancreas transplant Hypertensive urgency Patient presents with creatinine of 4.29; last creatinine on 06/27 of 3.99, cr eatinine on 06/15 of 3.82 Urinalysis shows 4+ protein, 1+ blood No leukocytosis present. CT abdomen and pelvis did not show any acute findings; found to have bilateral lower lobe bronchitis and questionable cystitis. Gallbladder ultrasound showed dilated and thickened gallbladder; likely secondary to presence of ascites. Patient denied abdominal pain/ no tenderness of examination Patient was started on amlodipine 5 mg and Coreg 12.5 mg for high blood pressure. He also underwent CT head without contrast for concern of headache; found to have multiple subcortical and periventricular white matter hypodensity. MRI brain showed mild to moderate T2/FLAIR hyperintense foci within white matter which is new from 2019 and is nonspecific. Considering patient's advanced atherosclerosis, chronic microvascular ischemic disease is the primary consideration. Neurology was consulted; recommended patient to repeat MRI in 1 year. Given patient's progressive renal failure over the course of last few months and acutely over the last few days; discussion was done with [facility] transfer center(consultative sales associate transfer pressure washer, on-call hospitalist); patient is accepted for transfer given the unavailability of transplant services here in the hospital. Update on 07/04-creatinine up trended to 4.66 with potassium of 4.2 and bicarb of 18, urine protein ratio of 7.1 [facility] transfer center was contacted again. Updated vitals and laboratory findings. Requested expedited transfer. On-call provider acknowledged the findings; patient's priority level increased. Awaiting bed availability. Full code DVT Heparin Time spent evaluating patient, direct bedside care, chart review, placing orders, interpretation of diagnostic studies, discussion with consultants, patient, and family members, as well as other required patient management activities is 50 minutes Please note the above document was generated using voice recognition software. It may contain grammatical, syntax or spelling errors. Any formal questions or concerns about the content, text or information contained within the body of this dictation should be directly addressed to the provider for clarification Admission and Anticipated Discharge Date Admission Date: July 02, 2024 Subjective Patient seen and examined at bedside. He reports that he is feeling better compared to previous days. He reports that headache has improved. He also reports that the nausea has also improved Blood pressure continues to be on higher side; requiring as needed medications. Review of Systems Review of Systems: All systems reviewed & are unremarkable except as noted in Subjective Physical Exam Physical Exam: Constitutional: Alert oriented x 3; reports some nausea. In mild distress. Respiratory: Bilateral vesicular breath sound. Cardiovascular: RRR, no murmur, no edema Vessels: no JVD or carotid bruit Chest: normal inspection of chest Abdomen: Soft, nontender. Musculoskeletal: no cyanosis or clubbing, extremities motor strength 5/5. Has AV fistula on his right arm; bruit present. Neurologic: PERRL, EOMI, accommodation nl, no face palsy, no dysarthria CN's II- XI intact bilaterally and moves all extremities Psychiatric: A+Ox3, euthymic affect Results & Data Results & Data Vital Signs (Past 12 Hours) Vital Signs Temp Pulse Pulse Resp BP BP Pulse Ox 07/04/24 11:26 36.2 C L 64 20 189/77 H 98 07/04/24 09:11 67 161/73 H 07/04/24 08:10 66 190/90 H 07/04/24 07:20 36.5 C 66 20 190/90 H 96 07/04/24 03:06 64 164/85 H 07/04/24 03:06 36.6 C 63 20 97 07/04/24 02:36 68 181/82 H O2 Del Method 07/04/24 11:26 Room Air 07/04/24 09:11 07/04/24 08:10 07/04/24 07:20 Room Air 07/04/24 03:06 07/04/24 03:06 Room Air 07/04/24 02:36
--- NOTE | 2024-07-04 12:55 | Discharge Summary ---
Date of Service July 04, 2024 Admission HPI Per Admitting Provider History obtained from chart review and interview with the patient Past medical history of type 1 diabetes, renal failure previously on dialysis, underwent pancreas and kidney transplant in [facility] hypertension, Charcot joint of right foot Patient presented to the hospital after he noticed that his creatinine was 3.9 and was concerned of progressive renal failure. Patient reports that he has not been feeling well for last 1 month; reports nausea and occasional vomiting, low appetite. He also reports decreasing urine output as well over the course of 1 month He denies feeling short of breath; endorses some swelling in his bilateral lower extremity. He reports that his follow-up at [facility] was several months ago; he is concerned that his lab work done at [facility] is not transmitted to the [facility] transpl ant provider. He reports history of high blood pressure in the past for which he was prescribed low-dose lisinopril a year ago; denies any history of it prior to that. He still has AV fistula on his right arm from prior dialysis. He reports being compliant to the immunosuppressant. Chart review of BMP: 06/27- creatinine of 3.99 06/15creatinine of 3.82 03/09creatinine of 2.86 As above, his creatinine seems to be gradually worsening over the course of last several months. On presentation to the ED, he was hypertensive with blood pressure of 222/110; other vitals were stable. Patient was given 2 doses of IV hydralazine with some improvement in the blood pressure. No leukocytosis present CT abdomen and pelvis did not show any acute findings; found to have bilateral lower lobe bronchitis and questionable cystitis. Gallbladder ultrasound showed dilated and thickened gallbladder; likely secondary to presence of ascites. Patient denied abdominal pain. ED provider discussed with his transplant physician; recommended patient did not need to be admitted or transferred. ED provider also discussed medication regarding tacrolimus and mycophenolate; recommended to continue those at current dose. Admission Exam Per Admitting Provider Constitutional: Alert oriented x 3; reports some nausea. In mild distress. Respiratory: Bilateral vesicular breath sound. Cardiovascular: RRR, no murmur, no edema Vessels: no JVD or carotid bruit Chest: normal inspection of chest Abdomen: Soft, nontender. Musculoskeletal: no cyanosis or clubbing, extremities motor strength 5/5. Has AV fistula on his right arm; bruit present. Neurologic: PERRL, EOMI, accommodation nl, no face palsy, no dysarthria CN's II- XI intact bilaterally and moves all extremities Psychiatric: A+Ox3, euthymic affect Principal Diagnosis JUANA on CKD Proteinuria History of renal/pancreas transplant Hypertensive urgency Discharge Exam Constitutional: Alert oriented x 3; reports some nausea. In mild distress. Respiratory: Bilateral vesicular breath sound. Cardiovascular: RRR, no murmur, no edema Vessels: no JVD or carotid bruit Chest: normal inspection of chest Abdomen: Soft, nontender. Musculoskeletal: no cyanosis or clubbing, extremities motor strength 5/5. Has AV fistula on his right arm; bruit present. Neurologic: PERRL, EOMI, accommodation nl, no face palsy, no dysarthria CN's II- XI intact bilaterally and moves all extremities Psychiatric: A+Ox3, euthymic affect Discharge Data Allergies Allergy/AdvReac Type Severity Reaction Status Date / Time NSAIDS (Non-Steroidal AdvReac Unknown RENAL Verified 01/24/24 19:10 Anti-Inflamma FAILURE Consultations 07/02/24 18:13 ED Decision to Admit Stat 07/02/24 18:42 Consult Nephrology Routine 07/03/24 08:51 Consult Neurology Routine 07/03/24 12:29 Burn CD for patient Stat Ordered Studies 07/02/24 14:27 CT Abd and Pelvis [CT abd pelvis wo con] Stat 07/02/24 15:16 US gallbladder Stat 07/02/24 21:50 US renal transplant w dop Routine 07/03/24 01:47 CT head/brain wo con Stat 07/03/24 07:23 MRI Brain [MR brain wo con] Routine Hospital Course (1) Acute kidney injury superimposed on chronic kidney disease: (2) History of pancreas transplant: (3) History of kidney transplant: (4) Hypertensive urgency: Plan Patient is a 46-year-old male with past medical history of type 1 diabetes mellitus, renal failure previously on dialysis; kidney/pancreas transplant in [facility], hypertension, Charcot joint of right foot presented to the hospital for concern of progressive kidney failure. JUANA on CKD Proteinuria History of renal/pancreas transplant Hypertensive urgency Patient presents with creatinine of 4.29; last creatinine on 06/27 of 3.99, creatinine on 06/15 of 3.82 Urinalysis shows 4+ protein, 1+ blood No leukocytosis present. CT abdomen and pelvis did not show any acute findings; found to have bilateral lower lobe bronchitis and questionable cystitis. Gallbladder ultrasound showed dilated and thickened gallbladder; likely secondary to presence of ascites. Patient denied abdominal pain/ no tenderness of examination Patient was started on amlodipine 5 mg and Coreg 12.5 mg for high blood pressure. He also underwent CT head without contrast for concern of headache; found to have multiple subcortical and periventricular white matter hypodensity. MRI brain showed mild to moderate T2/FLAIR hyperintense foci within white matter which is new from 2019 and is nonspecific. Considering patient's adva nced atherosclerosis, chronic microvascular ischemic disease is the primary consideration. Neurology was consulted; recommended patient to repeat MRI in 1 year. Given patient's progressive renal failure over the course of last few months and acutely over the last few days; discussion was done with [facility] transfer center(emr implementation specialist transfer shake splitter, on-call hospitalist); patient is accepted for tr ansfer given the unavailability of transplant services here in the hospital. Update on 07/04-creatinine up trended to 4.66 with potassium of 4.2 and bicarb of 18, urine protein ratio of 7.1 [facility] transfer center was contacted again. Updated vitals and laboratory findings. Requested expedited transfer. On-call provider acknowledged the findings; patient's priority level increased. Awaiting bed availability. Please note the above document was generated using voice recognition software. It may contain grammatical, syntax or spelling errors. Any formal questions or concerns about the content, text or information contained within the body of this dictation should be directly addressed to the provider for clarification Total Time Total Time Spent Total Time Spent (In Minutes): 45 Total Time Includes: Examination of the Patient, Discharge Planning, Medication Reconciliation, Communication With Other Providers and Other Discharge Plan Discharge Items Patient Disposition: Transfer Acute Care Hospital Reason For Visit: HYPERTENSION, PROGRESSIVE CKD Discharge Diagnosis: Acute on chronic CKD Hypertensive urgency Activity: Resume your previous activity Non-emergency contact: Primary Care Provider Call non-emergency contact if: you have any medication questions and your symptoms worsen Follow-up/Referrals: Rosie Duarte MD [Primary Care Provider] - Diet: Regular Addtl Attending Provider Instructions: You were admitted to the hospital due to progressive kidney failure. You are being transferred to [facility] for further evaluation. Addtl Director Of Player Personnel Provider Instructions: Date of Service: July 03, 2024 Current Inpatient Medications Acetaminophen (Acetaminophen 325 Mg Tab) 650 mg PO Q4H PRN PRN Reason: Pain or Fever Stop: 08/01/24 18:41 Amlodipine Besylate (Amlodipine Besylate 5 Mg Tab) 5 mg PO HS COUNT INCLUDES THE [facility] Stop: 08/01/24 20:59 Last Admin: 07/02/24 21:19 Dose: 5 mg Aspirin (Aspirin 325 Mg Ectab) 325 mg PO DAILY COUNT INCLUDES THE [facility] Stop: 08/02/24 08:59 Last Admin: 07/03/24 08:00 Dose: 325 mg Atorvastatin Calcium (Atorvastatin 40 Mg Tab) 40 mg PO QAM COUNT INCLUDES THE [facility] Stop: 08/02/24 08:59 Last Admin: 07/03/24 08:00 Dose: 40 mg Carvedilol (Carvedilol 12.5 Mg Tab) 12.5 mg PO BIDM COUNT INCLUDES THE [facility] Stop: 08/02/24 07:59 Last Admin: 07/03/24 08:57 Dose: 12.5 mg Heparin Sodium (Porcine) (Heparin Sod 5,000 Unit/0.5 Ml Vial) 5,000 units SQ Q8 COUNT INCLUDES THE [facility] Stop: 08/01/24 21:59 Last Admin: 07/03/24 07:17 Dose: 5,000 units Labetalol HCl (Labetalol Hcl Iv 5 Mg/Ml 20ml) 10 mg IV Q6H PRN PRN Reason: SBP > 180 mm Hg Stop: 08/01/24 18:44 Last Admin: 07/03/24 01:12 Dose: 10 mg Mycophenolate Sodium (Mycophenolate Sodium 180 Mg Tab) 360 mg PO BID COUNT INCLUDES THE [facility] Stop: 08/01/24 21:49 Last Admin: 07/03/24 08:00 Dose: 360 mg Ondansetron HCl (Ondansetron Inj 2 Mg/Ml 2 Ml Vial) 4 mg IV Q6H PRN PRN Reason: Nausea Stop: 08/01/24 18:41 Last Admin: 07/02/24 21:52 Dose: 4 mg Oxycodone HCl (Oxycodone Hcl Ir 5 Mg Tab (Immediate Release)) 5 mg PO Q4H PRN PRN Reason: Pain Stop: 07/17/24 01:45 Polyethylene Glycol (Polyethylene (Miralax) 17 Gm Pack) 17 gm PO DAILY PRN PRN Reason: Constipation Stop: 08/01/24 18:41 Tacrolimus (Tacrolimus 1 Mg Cap) 3 mg PO BID EMERY Stop: 08/01/24 21:49 Last Admin: 07/03/24 08:00 Dose: 3 mg Pending Studies at Discharge: No Stand-Alone Forms: My [facility] Skilled Items Patient informed of condition?: Yes DNR: No Discharge Level of Care: Other Communicable Disease: No Discharge Prognosis: Stable Lines: None and Peripheral IV Urinary Catheter: No Medications and DC Order Prescriptions: Continued aspirin 325 mg tablet,delayed release (DR/EC) 325 mg PO DAILY Rx Instructions: otc unable to verify tacrolimus 1 mg capsule See Rx Instructions .ROUTE .COMPLEX Rx Instructions: Take 3mg by mouth in the morning and 2mg by mouth at bedtime filled 06/26 30 day supply mycophenolate sodium 180 mg tablet,delayed release (DR/EC) 360 mg PO BID Rx Instructions: filled 06/26 30 day supply atorvastatin 40 mg tablet 40 mg PO UD Rx Instructions: 40 mg po daily. last filled 03/25 30 day supply Discharge Orders: Discharge Order (Routine); Ordered 07/04/24 Ordered By: Roshan Youssef Admission Data Admit Date/Time: 07/02/24 18:42 Attending Provider: Roshan Youssef Admit Provider: Roshan Youssef Primary Care Provider: Rosie Duarte Other Providers: Roshan Youssef; Kellie Bains; Des Marcano; Braulio Henriquez; Arnol Gavin; Mayra Gomes; Laurie Aguiar; Bam Benson; Laurie Barfield; Xavier Padron; Thiago Vargas; Xavi Contreras; Arnaud Smith; Lilliana Rajan; Payam Skinner; Jamie Rosado; Ward Unger; Jose Alberto Serra; Lauryn Olivia; Massiel Jolly; Arnaud Bush; Angelique Miller Other Interventions: Discharge Summary Assessment (RN) Last Done: 07/03/24 15:33
[2024-07-04 15:34] VITALS: BP 170/84; RESP 18; TEMP 97.9
--- NOTE | 2024-07-05 09:44 | Electrocardiogram Report ---
Test Reason : Blood Pressure : */* mmHG Vent. Rate : 78 BPM Atrial Rate : 78 BPM P-R Int : 126 ms QRS Dur : 90 ms QT Int : 418 ms P-R-T Axes : 57 29 88 degrees QTcB Int : 476 ms Normal sinus rhythm Normal ECG When compared with ECG of 22-May-2024 19:37, T wave inversion no longer evident in Inferior leads Nonspecific T wave abnormality now evident in Lateral leads Confirmed by Tyler Kennedy ([id number]) on 07/05/2024 9:43:43 AM Referred By: Confirmed By: Tyler Kennedy
--- NOTE | 2024-07-05 11:30 | Ultrasound Report ---
EXAM: US renal transplant w dop CLINICAL HISTORY: Progressive JUANA. LLQ renal transplant in January 2021. LLQ TX: 12.9 cm, no hydro. Small amount of perinephric fluid seen. RI''s within Arc arteries range from 0.5-0.7. Velocity at artery Anast site 96 cm/s, highest MRA velocity = 108 cm/s. MRV and iliac vein patent. INPATIENT TECHNIQUE: Ultrasound examination was performed in real-time and duplex with the spectral from analysis. COMPARISON: 09/20/2021, 08/01/2021. FINDINGS: The left lower quadrant transplanted kidney measures 12.9 cm. No hydronephrosis is seen. RI of the left lower abdomen transplanted kidney (within arc arteries) is from 0.5-0.7. Velocity at the artery anastomosis site is 96/centimeters per second, highest MRA velocity is 108 cm/s. MRV and iliac vein patent. Minimal free fluid is seen adjacent to the kidney. Partially visualized urinary bladder appears normal. IMPRESSION: 1. Transplanted kidney RI value within normal limits. The highest RA velocity is 108 cm/s within the normal limit. Anastomosis are patent. 2. Minimal fluid is adjacent to the transplanted kidney. Interval new finding. MTDD
== END 2024-07-04 19:27 | disposition short-term general hospital (02) | DRG 683 ==
LOC: ED 11:53 → 2S 18:42

== ENCOUNTER 2024-09-13 09:10 | Inpatient (IN) ==
--- NOTE | 2024-09-13 10:15 | Emergency Department Note ---
Impression & Plan Edema Admission ED Provider Note HPI: History obtained from patient. The patient is a 39-year-old gentleman with history of end-stage renal disease, diabetes, status post kidney transplant and pancreas transplant in 2020 at [facility], on tacrolimus and mycophenolate, who presents the emergency department with a chief complaint of edema in the bilateral lower extremities and scrotum. Patient states that he has had edema on and off in his lower extremities for about the past 2 months, patient states just over the past 2 to 3 days he has also developed some significant swelling in his penis and scrotum. On arrival here to the ED the patient is hypertensive but otherwise hemodynamically stable, he is afebrile on arrival. ROS: - Per HPI Differential Diagnosis: Nephrotic syndrome, acute CHF, obstructive mass of the IVC, lymphedema, Dariela's gangrene, amongst other potential pathologies. *Outpatient medications and allergy history reviewed. PE: General: Alert HEENT: Normocephalic, trachea midline Eyes: Extraocular eye movement is intact, no scleral erythema Pulmonary: Clear to auscultation bilaterally, no wheezing Cardio: Regular rate and rhythm GI: Abdomen is soft to palpation : No suprapubic tenderness, significant edema noted of the penis and scrotum without any evidence of paraphimosis, there is no overlying erythema or crepitus to palpation MSK: No evidence of trauma or malformation of the extremities, 2+ edema of the bilateral lower extremities, chronic appearing deformity of the right ankle/foot consistent with patient's history of Charcot foot Skin: No evidence of rash Neuro: Alert, no focal deficits Psychiatric: Cooperative INDEPENDENT INTERPRETATIONS: 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 Lab work shows no leukocytosis, hemoglobin is stable at 9.1, platelet count is normal, CMP shows a mild hyperkalemia at 5.3, BUN is 64 and creatinine is 3.55 which is slightly lower than the patient's recent baseline. Patient shows me lab work from June through [facility] that showed a creatinine of 4.7. Troponin is negative, BNP is elevated at 455, chest x-ray does show some pulmonary vascular congestion however the patient denies any current shortness of breath. Urinalysis shows 3+ protein, no evidence of infection. Overall the patient's symptoms appear to be consistent with nephrotic syndrome, he does not have any findings of infection on the scrotum or the legs. There is no erythema, there is no pain to palpation or crepitus with palpation. I discussed all the above findings with the on-call transplant physician at [facility], Dr. Burton, and at this time he feels the patient would be stable for admission at this facility to the medicine service with nephrology consultation. He recommends IV diuresis and holding off on steroids at this time until the patient is evaluated by nephrology. I discussed this with the patient, he is in agreement for admission. Case was then discussed with the [facility] hospitalist service and the patient was placed for admission in stable condition to the service of Dr. Alex. Consultants/Discussions held with other healthcare providers: -Hospitalist, Dr. Alex -[facility] transplant service, Dr. Burton Disposition discussion held by myself with: -Patient Diagnosis: 1. Bilateral lower extremity edema, acute 2. Scrotal edema, acute 3. Proteinuria, acute 4. Elevated BNP, acute 5. Hyperkalemia, acute, mild Disposition: Admission Slick Kelsey DO Emergency Medicine Past Med/Surg History Problem List (Updated 09/13/24 @ 15:06 by Slick Kelsey DO) Edema (Acute) Scrotal edema Bilateral lower extremity edema (Acute) Hypertension (Acute) Left leg paresthesias (Acute) Hypertensive emergency (Acute) Acute kidney injury superimposed on chronic kidney disease (Acute) History of pancreas transplant (Acute) History of kidney transplant (Acute) SIRS (systemic inflammatory response syndrome) (Acute) Immunosuppressed status (Acute) Influenza A (Acute) Hyponatremia Influenza Pneumonia Recurrent UTI Incomplete bladder emptying Hyperkalemia Complicated UTI (urinary tract infection) Acute UTI (Acute) COVID-19 (Acute) Acute hyperkalemia (Acute) At risk for fertility problems Hypertension Chronic wound of extremity Erectile dysfunction Anemia DVT prophylaxis Immunosuppressed status Pancreas transplanted January 2021-[facility] Kidney transplanted (Acute) January 2021-[facility] Acute UTI (Acute) Pneumonia of both lower lobes Hypoxia (Acute) Acute dyspnea (Acute) Cough (Acute) Fever (Acute) Fluid overload (Acute) Acute respiratory failure UTI (urinary tract infection) Hypertensive urgency Aspiration pneumonia Hypoxia Sepsis (Acute) Pneumonia (Acute) End stage renal disease (Acute) DVT prophylaxis Acute respiratory failure with hypoxia Pneumonitis ESRD on dialysis Bacteremia due to Staphylococcus aureus MSSA bacteremia 10/05/19 treated with cefazolin x 6 wks Anemia in ESRD (end-stage renal disease) (Chronic) Prolonged QT interval (Chronic) TIA (transient ischemic attack) (Chronic) Nephrotic syndrome due to diabetes mellitus (Chronic) Fatty liver (Chronic) Charcot foot due to diabetes mellitus (Chronic) Diabetic retinopathy (Chronic) 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) Medical History Peritoneal dialysis catheter in place REMOVED 11/10/19 History of peritoneal dialysis Surgical History S/P eye surgery Family History Mother Hypertension Grandfather (Maternal) Diabetes Grandmother (Maternal) Diabetes Grandmother (Paternal) Diabetes Social History Smoking Status: Former smoker Tobacco Type: Cigarettes Cigarettes Per Day: 10; Second Hand Exposure: No; Do You Dip or Chew Tobacco: No; Hx Alcohol Use: No Hx Substance Use: No Preferred Language: Guatemalan Communication Ability: Effective Visual Impairment: Limited 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: No Beliefs That Will Affect Care: None marital status: Single Current Living Situation: Alone Current Living Situation Comment: lives at home alone current occupational status: employed Feels Safe at Home: Yes Assistive Devices: Glasses Allergies Allergies Allergy/AdvReac Type Severity Reaction Status Date / Time NSAIDS (Non-Steroidal AdvReac Unknown RENAL Verified 09/13/24 12:54 Anti-Inflamma FAILURE Home Meds Home Medications Medication Instructions Recorded Confirmed mycophenolate sodium 180 mg 540 mg PO BID 01/24/24 09/13/24 tablet,delayed release tacrolimus 1 mg capsule, See Rx Instructions .Route .COMPLEX 01/24/24 09/13/24 immediate-release amlodipine 10 mg tablet 10 mg PO HS 09/13/24 09/13/24 aspirin 81 mg tablet,delayed 81 mg PO DAILY 09/13/24 09/13/24 release carvedilol 25 mg tablet 25 mg PO BID 09/13/24 09/13/24 sodium bicarbonate 650 mg tablet 1,300 mg PO BID 09/13/24 09/13/24 sodium zirconium cyclosilicate 5 10 g PO PM 09/13/24 09/13/24 gram oral powder packet (Lokelma) Results & Data (ED) Vital Signs Vital Signs - 24 hr 09/13/24 09:16 09/13/24 09:26 09/13/24 10:10 Temperature 36.5 C Temperature Source Temporal Artery Scan Pulse Rate 74 75 Pulse Rate [Apical] Respiratory Rate 18 18 Respiratory Effort / Characteristics Non-Labored Spontaneous Non-Labored Respiratory Depth Normal Normal Blood Pressure 170/65 H Blood Pressure [Left Arm] Blood Pressure Mean 100 Blood Pressure Mean [Left Arm] Blood Pressure Position Sitting Pulse Oximetry 99 Oxygen Delivery Method Room Air Sepsis Recent Fever Within 48 Hours No Sepsis New/Unexplained Change in Mental Status No Sepsis Action Taken by Nursing No Action Required 09/13/24 10:56 09/13/24 12:00 09/13/24 14:00 Temperature Temperature Source Pulse Rate Pulse Rate [Apical] 70 68 72 Respiratory Rate 18 18 20 Respiratory Effort / Characteristics Non-Labored Non-Labored Non-Labored Spontaneous Respiratory Depth Normal Normal Normal Blood Pressure Blood Pressure [Left Arm] 153/82 H 143/78 H 165/79 H Blood Pressure Mean Blood Pressure Mean [Left Arm] 105 99 107 Blood Pressure Position Pulse Oximetry 97 97 97 Oxygen Delivery Method Room Air Room Air Room Air Sepsis Recent Fever Within 48 Hours Sepsis New/Unexplained Change in Mental Status Sepsis Action Taken by Nursing 09/13/24 14:17 Temperature Temperature Source Pulse Rate 69 Pulse Rate [Apical] Respiratory Rate Respiratory Effort / Characteristics Respiratory Depth Blood Pressure Blood Pressure [Left Arm] Blood Pressure Mean Blood Pressure Mean [Left Arm] Blood Pressure Position Pulse Oximetry Oxygen Delivery Method Sepsis Recent Fever Within 48 Hours Sepsis New/Unexplained Change in Mental Status Sepsis Action Taken by Nursing Laboratory Data 09/13/24 10:02 09/13/24 10:02 Lab Results 09/13/24 09/13/24 09/13/24 Range/Units 10:02 10:26 11:30 WBC 8.51 (4.8-10.8) K/ul RBC 3.12 L (4.70-6.10) M/uL Hgb 9.1 L (14.0-18.0) g/dl Hct 28.3 L (42.0-52.0) % MCV 90.7 (80.0-100.0) fL MCH 29.2 (25.0-34.0) pg MCHC 32.2 (32.0-36.0) g/dL RDW Std Deviation 48.7 H (36.4-46.3) fL RDW Coeff of Ralph 14.7 H (11.5-14.5) % Plt Count 177 (130-400) K/uL MPV 10.4 (9.4-12.4) fL Immature Gran % (Auto) 0.4 % Neut % (Auto) 69.9 % Lymph % (Auto) 15.4 % Simpson % (Auto) 11.0 % Eos % (Auto) 2.5 % Baso % (Auto) 0.8 % Neut # (Auto) 5.95 (1.40-6.50) K/uL Lymph # (Auto) 1.31 (1.20-3.40) K/uL Simpson # (Auto) 0.94 H (0.11-0.59) K/uL Eos # (Auto) 0.21 (0.00-0.50) K/uL Baso # (Auto) 0.07 (0.00-0.20) K/uL Immature Gran # (Auto) 0.03 (0.01-0.20) K/uL Sodium 138 (136-145) mmol/L Potassium 5.3 H (3.5-5.1) mmol/L Chloride 110 H (98-107) mmol/L Carbon Dioxide 21 (21-32) mmol/L Anion Gap 7 (3-11) BUN 64 H (6-23) mg/dl Creatinine 3.55 H (0.6-1.4) mg/dl Est Cr Clr Drug Dosing 26.8 ml/min eGFR 21.33 BUN/Creatinine Ratio 18.0 (10-20) Glucose 102 H (70-99(Fasting)) mg/dl Calcium 8.6 (8.6-10.3) mg/dl Total Bilirubin 0.4 (0.2-1.0) mg/dl AST 12 L (13-39) U/L ALT 10 (7-52) U/L Alkaline Phosphatase 63 (34-104) U/L Troponin I High Sens 6.8 (0-20) pg/ml B-Natriuretic Peptide 455 H (0-100) pg/ml Total Protein 6.3 (6.0-8.3) gm/dl Albumin 3.7 (3.4-5.0) gm/dl Globulin 2.6 (2.5-4.0) gm/dl Albumin/Globulin Ratio 1.4 (0.9-2) Urine Color Yellow Urine Appearance Clear (Clear) Urine pH 5.5 (4.5-7.5) Ur Specific [place] 1.016 (1.000-1.030) Urine Protein 3+ H (Negative) Urine Glucose (UA) Negative (Negative) Urine Ketones Negative (Negative) Urine Blood Negative (Negative) Urine Nitrite Negative (Negative) Urine Bilirubin Negative (Negative) Urine Urobilinogen Negative (Negative) Ur Leukocyte Esterase Negative (Negative) Urine WBC (Auto) 0-5 (0-5) /hpf Urine RBC (Auto) 0-2 (0-2) /hpf U Hyaline Cast (Auto) 0-2 (0-2) /lpf U Epithel Cells (Auto) 0-2 (0-2) /hpf Urine Bacteria (Auto) None Seen (None Seen) Administered Medications Discontinued Medications Carvedilol (Carvedilol 25 Mg Tab) 25 mg PO NOW ONE Stop: 09/13/24 13:41 Last Admin: 09/13/24 14:45 Dose: 25 mg Documented By: SURY Furosemide (Furosemide 40 Mg/4 Ml Vial) 40 mg IV ONE ONE Stop: 09/13/24 12:36 Last Admin: 09/13/24 12:43 Dose: 40 mg Documented By: WENDY Methylprednisolone (Methylprednisolone 125 Mg/2 Ml Vial) 125 mg IV NOW STA Stop: 09/13/24 13:38 Last Admin: 09/13/24 14:46 Dose: 125 mg Documented By: SURY Mycophenolate Sodium (Mycophenolate Sodium 180 Mg Tab) 540 mg PO ONE ONE Stop: 09/13/24 14:16 Last Admin: 09/13/24 14:45 Dose: 540 mg Documented By: SURY Tacrolimus (Tacrolimus 1 Mg Cap) 2 mg PO ONE ONE Stop: 09/13/24 14:01 Last Admin: 09/13/24 14:45 Dose: 2 mg Documented By: SURY Imaging Data Radiologist's Impression: Chest X-Ray 09/13/24 09:52 XR chest 1V portable CLINICAL HISTORY: Fluid retention. COMPARISON STUDY: Chest CT June 12, 2020. Chest radiograph September 01, 2024. FINDINGS: Lung volumes are normal. There is no pneumothorax. There is a trace left pleural effusion. Cardiomegaly with pulmonary vascular congestion. There is no consolidation to suggest pneumonia. IMPRESSION: 1. Cardiomegaly with pulmonary vascular congestion. 2. Trace left pleural effusion. ACT 112: Negative or not required by law. Electronically signed by: Sharan Bishop M.D. 09/13/2024 10:35 AM Discharge Plan Visit Data Chief Complaint: Swelling/Edema to Extremity Stated Complaint: EDEMA IN LEGS/TESTICLES ED Provider: Slick Kelsey Discharge Problem: Edema Forms Stand Alone Forms: [facility] Prescriptions Prescriptions: No Action tacrolimus 1 mg capsule See Rx Instructions .ROUTE .COMPLEX Rx Instructions: Take 2mg by mouth in the morning and 1mg by mouth in the evening. mycophenolate sodium 180 mg tablet,delayed release (DR/EC) 540 mg PO BID carvedilol 25 mg tablet 25 mg PO BID aspirin 81 mg tablet,delayed release (DR/EC) 81 mg PO DAILY sodium bicarbonate 650 mg Tablet 1,300 mg PO BID amlodipine 10 mg tablet 10 mg PO HS Lokelma 5 gram powder in packet 10 g PO PM Referrals Referrals: Rosie Duarte MD [Hospitalist] - Discharge Problem: Edema Qualifiers: Edema type: unspecified Qualified Code(s): R60.9 - Edema, unspecified
[2024-09-13 10:26] LABS: Basophils # (auto) 0.07 K/uL (0.00-0.20); Basophils % (auto) 0.8 %; Eosinophils # (auto) 0.21 K/uL (0.00-0.50); Eosinophils % (auto) 2.5 %; Hematocrit (blood only) 28.3 % (42.0-52.0); Hemoglobin 9.1 g/dl (14.0-18.0); Immature Granulocytes # (auto) 0.03 K/uL (0.01-0.20); Immature Granulocytes % (auto) 0.4 %; Lymphocytes # (auto) 1.31 K/uL (1.20-3.40); Lymphocytes % (auto) 15.4 %; Mean Corpuscular Hemoglobin 29.2 pg (25.0-34.0); Mean Corpuscular Hgb Conc 32.2 g/dL (32.0-36.0); Mean Corpuscular Volume 90.7 fL (80.0-100.0); Mean Platelet Volume 10.4 fL (9.4-12.4); Monocytes # (auto) 0.94 K/uL (0.11-0.59); Neutrophils # (auto) 5.95 K/uL (1.40-6.50); Neutrophils % (auto) 69.9 %; Platelet Count 177 K/uL (130-400); RDW Coefficient of Variation 14.7 % (11.5-14.5); RDW Standard Deviation 48.7 fL (36.4-46.3); Red Blood Count 3.12 M/uL (4.70-6.10); White Blood Count 8.51 K/ul (4.8-10.8)
[2024-09-13 10:34] LABS: Albumin Globulin Ratio 1.4 (0.9-2); Albumin Level 3.7 gm/dl (3.4-5.0); Bilirubin,Total 0.4 mg/dl (0.2-1.0); Calcium 8.6 mg/dl (8.6-10.3); Creatinine Clr Calc Pharmacy 26.8 ml/min; Globulin 2.6 gm/dl (2.5-4.0); Potassium 5.3 mmol/L (3.5-5.1); Total Protein 6.3 gm/dl (6.0-8.3)
--- NOTE | 2024-09-13 10:36 | XRay Report ---
XR chest 1V portable CLINICAL HISTORY: Fluid retention. COMPARISON STUDY: Chest CT June 12, 2020. Chest radiograph September 01, 2024. FINDINGS: Lung volumes are normal. There is no pneumothorax. There is a trace left pleural effusion. Cardiomegaly with pulmonary vascular congestion. There is no consolidation to suggest pneumonia. IMPRESSION: 1. Cardiomegaly with pulmonary vascular congestion. 2. Trace left pleural effusion. ACT 112: Negative or not required by law. Electronically signed by: Sharan Bishop M.D. 09/13/2024 10:35 AM
[2024-09-13 10:40] LABS: Troponin I High Sensitivity 6.8 pg/ml (0-20)
[2024-09-13 10:53] LABS: Appearance Urine Clear (Clear); Bacteria Urine Automated None Seen (None Seen); Bilirubin Urine Negative (Negative); Blood Urine Negative (Negative); Cast Urine Automated 0-2 /lpf (0-2); Color Urine Yellow; Epithelial Cell Urine Auto 0-2 /hpf (0-2); Glucose Urine UA Negative (Negative); Ketones Urine Negative (Negative); Leukocyte Esterase Urine Negative (Negative); Nitrite Urine Negative (Negative); Protein Urine 3+ (Negative); RBC Urine Automated 0-2 /hpf (0-2); Specific Gravity Urine 1.016 (1.000-1.030); Urobilinogen Urine Negative (Negative); WBC Urine Automated 0-5 /hpf (0-5); pH Urine 5.5 (4.5-7.5)
--- NOTE | 2024-09-13 11:49 | Electrocardiogram Report ---
Test Reason : Blood Pressure : */* mmHG Vent. Rate : 72 BPM Atrial Rate : 72 BPM P-R Int : 138 ms QRS Dur : 84 ms QT Int : 426 ms P-R-T Axes : 60 10 59 degrees QTcB Int : 466 ms Normal sinus rhythm Poor R wave progression, consider anterior [place] vs. lead placement vs. LVH Abnormal ECG When compared with ECG of 01-Sep-2024 15:45, No significant change was found Confirmed by Theo Lara ([id number]) on 09/13/2024 11:49:00 AM Referred By: Confirmed By: Theo Lara
[2024-09-13] MEDS: FUROSEMIDE 40 MG/4 ML VIAL IV ONE (12:43)
--- NOTE | 2024-09-13 13:04 | History & Physical Report ---
Date of Service September 13, 2024 Assessment & Plan (1) Bilateral lower extremity edema: (2) Scrotal edema: (3) Kidney transplanted: (4) Hyperkalemia: Plan: #History ESRD s/p kidney and pancreas transplant in 2020 at [facility] Patient is a 39-year-old male with PMH HTN, DM I, ESRD s/p simultaneous pancreas and kidney transplant in 2020 at [facility] presented to ER with c/o progressive BLE edema x 2 months and scrotal edema x 2 days. In ER afebrile, BP: 170/65 down to 143/78, R: 18, P: 74, O2 sat 99% on RA. No leukocytosis. BNP: 455. K: 5.3 BUN: 64, Cr: 3.5. (Patient able to pull up labs on his [facility] isra and on 07/13/24 had Cr: 4.7 and K: 4.3) UA: 3+ protein CXR: Cardiomegaly with pulmonary vascular congestion. Trace left pleural effusion. 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 ER physician spoke to flowers salesperson kidney transplant team at [facility], Dr Burton who recommended patient can be evaluated here and if worsening consider transfer and recommended nephro consult Will dose pt's home Lokelma now. He admits to med non-compliance. Repeat BMP tonight Give dose Solu-medrol 125mg IV now Nephrology consult Continue mycophenolate, tacrolimus, sodium bicarbonate, Lokelma CBC, BMP in am (5) Hypertension: Plan: BP elevated in ER. Did not have his home BP meds Dose now and continue carvedilol, amlodipine (6) Diabetes mellitus type 1 with complications: Plan: History DM I S/P Pancreas transplant No longer on insulin Random glucose: 102 06/27/2024 A1c: 5.2 DVT Prophylaxis Heparin SQ Admit med/tele Full Code as per discussion with pt Follows with Dr Faustin for routine care Pt was seen and care coordinated with Dr Alex. See addendum I spent a total of 78 minutes reviewing notes, outpatient records, labs, medication, coordinating, documenting and providing care for this patient excluding time spent in the performance of separately billed services. History of Present Illness Chief Complaint: Edema Primary Care Provider: Taylor Faustin DO Patient is a 39-year-old male with PMH HTN, DM I, ESRD s/p simultaneous pancreas and kidney transplant in 2020 at [facility] presented to ER with c/o progressive BLE edema x 2 months and scrotal edema x 2 days. Per inpatient chart review patient with history hospitalization at [facility] 07/02/2024-07/04/24 for hypertensive urgency, JUANA and was transferred to [facility] on 07/04/2024 and discharged on 07/13/24 with diagnosis of JUANA, acute rejection of kidney transplant, HTN urgency. Per [facility] discharge note there had Renal US showed patent vessels. CMV, BKV, HIV negative, C3 and C4 wnl. DSA Class I negative, Class II positive, ANDI 1:160, P LA2R Ab negative. 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 He was treated with 3 days IV Solu-Medrol 250mg and was discharged on aspirin 81 mg daily, carvedilol 25mg BID, amlodipine 10mg QHS, Lokelma 10 mg daily, sodium bicarb 1300mg twice daily for hyperkalemia/acidosis and mycophenolate 540mg BID, Tacrolimus 2mg in am and 1mg in PM. It was thought that patient may require prednisone 5mg daily in the future. It was recommended patient follow up with tilting head band sawyer locally. Since that time in 06/2024 patient reports progressive BLE edema. He states past 2 days with significant scrotal edema and discomfort. He states did not have his home medications today. Taking Lokelma, but admits to missing multiple doses a week. Reports last took 2 days ago. (Last filled in 07/14/24 for 30 day supply). He states sometimes feels SOB upon awakening in the morning that resolves upon sitting up. Denies CP. He states has not followed up with PCP and has not re- established with nephrology locally. He states has follow up with transplant team at [facility] later this month. Denies fever/chills, diaphoresis, N/V/D/C, LYON, dizziness, syncope, vision changes, neck pain, palpitations, cough, sore throat, abdominal pain, paresthesias, rashes, urinary symptoms. [facility] Card Clothier Saqib Joya Allergies Allergy/AdvReac Type Severity Reaction Status Date / Time NSAIDS (Non-Steroidal AdvReac Unknown RENAL Verified 09/13/24 12:54 Anti-Inflamma FAILURE Home Medications Medication Instructions Recorded Confirmed Type mycophenolate sodium 180 mg 540 mg PO BID 01/24/24 09/13/24 History tablet,delayed release tacrolimus 1 mg capsule, See Rx Instructions .Route .COMPLEX 01/24/24 09/13/24 History immediate-release amlodipine 10 mg tablet 10 mg PO HS 09/13/24 09/13/24 History aspirin 81 mg tablet,delayed 81 mg PO DAILY 09/13/24 09/13/24 History release carvedilol 25 mg tablet 25 mg PO BID 09/13/24 09/13/24 History sodium bicarbonate 650 mg tablet 1,300 mg PO BID 09/13/24 09/13/24 History sodium zirconium cyclosilicate 5 10 g PO PM 09/13/24 09/13/24 History gram oral powder packet (Lokelma) Past Med/Surg History Problem List (Updated 09/13/24 @ 15:06 by Slick Kelsey, ) Edema (Acute) Scrotal edema Bilateral lower extremity edema (Acute) Hypertension (Acute) Left leg paresthesias (Acute) Hypertensive emergency (Acute) Acute kidney injury superimposed on chronic kidney disease (Acute) History of pancreas transplant (Acute) History of kidney transplant (Acute) SIRS (systemic inflammatory response syndrome) (Acute) Immunosuppressed status (Acute) Influenza A (Acute) Hyponatremia Influenza Pneumonia Recurrent UTI Incomplete bladder emptying Hyperkalemia Complicated UTI (urinary tract infection) Acute UTI (Acute) COVID-19 (Acute) Acute hyperkalemia (Acute) At risk for fertility problems Hypertension Chronic wound of extremity Erectile dysfunction Anemia DVT prophylaxis Immunosuppressed status Pancreas transplanted January 2021-[facility], [place], operated by [facility] Kidney transplanted (Acute) January 2021-[facility], [place], operated by [facility] Acute UTI (Acute) Pneumonia of both lower lobes Hypoxia (Acute) Acute dyspnea (Acute) Cough (Acute) Fever (Acute) Fluid overload (Acute) Acute respiratory failure UTI (urinary tract infection) Hypertensive urgency Aspiration pneumonia Hypoxia Sepsis (Acute) Pneumonia (Acute) End stage renal disease (Acute) DVT prophylaxis Acute respiratory failure with hypoxia Pneumonitis ESRD on dialysis Bacteremia due to Staphylococcus aureus MSSA bacteremia 10/05/19 treated with cefazolin x 6 wks Anemia in ESRD (end-stage renal disease) (Chronic) Prolonged QT interval (Chronic) TIA (transient ischemic attack) (Chronic) Nephrotic syndrome due to diabetes mellitus (Chronic) Fatty liver (Chronic) Charcot foot due to diabetes mellitus (Chronic) Diabetic retinopathy (Chronic) 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) Medical History Peritoneal dialysis catheter in place REMOVED 11/10/19 History of peritoneal dialysis Surgical History S/P eye surgery Family History Mother Hypertension Grandfather (Maternal) Diabetes Grandmother (Maternal) Diabetes Grandmother (Paternal) Diabetes Social History Smoking Status: Former smoker Tobacco Type: Cigarettes Cigarettes Per Day: 10; Second Hand Exposure: No; Do You Dip or Chew Tobacco: No; Hx Alcohol Use: No Hx Substance Use: No Preferred Language: Nigerien Communication Ability: Effective Visual Impairment: Limited Infrastructure Software Engineer Required: No Beliefs That Will Affect Care: None marital status: Single Current Living Situation: Alone Current Living Situation Comment: lives at home alone current occupational status: employed Other Information That Helps Us Care for You: No Feels Safe at Home: Yes Safety Concerns: Feels Safe At This Time Assistive Devices: Glasses Review of Systems Review of Systems: All systems reviewed & are unremarkable except as noted in HPI & below Physical Exam Physical Exam: General: no acute distress, WDWN Head: normocephalic, atraumatic Eyes: conjunctiva non-injected, anicteric ENT: normal inspection external ears, nose, mucous membranes moist Neck: supple, trachea midline Lungs: no respiratory distress, faint rales at bases bilaterally, no wheezing/rhonchi CV: RRR, no murmur, 3+ pitting edema BLE Abd: normal BS, soft, non-tender : +diffuse severe scrotal edema without redness, +edema penis Ext: no cyanosis, +chronic deformation right ankle, no calf tenderness Neuro: A&O x 3, no focal deficits noted, normal affect Skin: warm, dry Results & Data Results & Data Vital Signs (Past 12 Hours) Vital Signs Temp Pulse Pulse Resp BP BP Pulse Ox 09/13/24 12:00 68 18 143/78 H 97 09/13/24 10:56 70 18 153/82 H 97 09/13/24 10:10 75 09/13/24 09:26 18 09/13/24 09:16 36.5 C 74 18 170/65 H 99 O2 Del Method 09/13/24 12:00 Room Air 09/13/24 10:56 Room Air 09/13/24 10:10 09/13/24 09:26 09/13/24 09:16 Room Air Laboratory Results Short CBC 09/13/24 Range/Units 10:02 WBC 8.51 (4.8-10.8) K/ul Hgb 9.1 L (14.0-18.0) g/dl Hct 28.3 L (42.0-52.0) % Plt Count 177 (130-400) K/uL BMP 09/13/24 10:02 Sodium 138 Potassium 5.3 H Chloride 110 H Carbon Dioxide 21 BUN 64 H Creatinine 3.55 H Glucose 102 H Calcium 8.6 Liver Function 09/13/24 Range/Units 10:02 Total Bilirubin 0.4 (0.2-1.0) mg/dl AST 12 L (13-39) U/L ALT 10 (7-52) U/L Alkaline Phosphatase 63 (34-104) U/L Albumin 3.7 (3.4-5.0) gm/dl Urine 09/13/24 Range/Units 10:26 Urine Color Yellow Urine Appearance Clear (Clear) Urine pH 5.5 (4.5-7.5) Ur Specific [place] 1.016 (1.000-1.030) Urine Protein 3+ H (Negative) Urine Glucose (UA) Negative (Negative) Diagnostic Findings Chest X-Ray 09/13/24 09:52 XR chest 1V portable CLINICAL HISTORY: Fluid retention. COMPARISON STUDY: Chest CT June 12, 2020. Chest radiograph September 01, 2024. FINDINGS: Lung volumes are normal. There is no pneumothorax. There is a trace left pleural effusion. Cardiomegaly with pulmonary vascular congestion. There is no consolidation to suggest pneumonia. IMPRESSION: 1. Cardiomegaly with pulmonary vascular congestion. 2. Trace left pleural effusion. ACT 112: Negative or not required by law. Electronically signed by: Sharan Bishop M.D. 09/13/2024 10:35 AM ECG Additional Comments: sinus rhythm per my interpretation Supervising Physician Co-Signing Physician Notes I have seen and discussed the case with the collaborating advanced practitioner. I agree with the above H&P. I have reviewed and confirmed the patients medical history, the findings on physical examination, and the patients diagnosis and treatment plan with Atif MURPHY and agree with the information documented. In short, Mr. Hicks is a 39 yo gentleman with DMTI and ESRD s/p kidney and pancreas transplant in 2020 at [facility] who is admitted due to worsening swelling likely iso progressive renal dysfunction. Patient reports swelling worsening over months, now progressing to scrotum prompting presentation. Patient with history T-cell mediated rejection s/p IV steroids in 06/2024. Transplant team at [facility] advised continued eval here, but can consider transfer if worsening. Exam noted for pitting edema up to sacrum 2+, plus noted scrotal edema, decreased breath sound bibasilar. #Volume overload, likely iso renal dysfuntion Nephrology recommending lasix 40mg q8 IV for now solorzano placed no need for further steroid at this time trend lytes monitor i/os Nephrology consult continue immunosuppressants tacrolevel pending rest of plan as above I spent a total of 20 minutes coordinating, documenting, and providing care for this patient excluding time spent in the performance of separately billed services. All of the aforementioned completed outside of collaborating with the assigned advanced practitioner for a full treatment plan. I have reviewed the advanced practitioner's documentation, and I agree with, and take responsibility for the plan of care
[2024-09-13] MEDS ORDERED: MYCOPHENOLATE MOFETIL 250 MG CAP PO ONE (14:00)
[2024-09-13] MEDS: TACROLIMUS 1 MG CAP PO ONE (14:45)
[2024-09-13] MEDS: carvediloL 25 MG TAB PO ONE (14:45)
[2024-09-13] MEDS: MYCOPHENOLATE SODIUM 180 MG TAB PO ONE (14:45)
[2024-09-13] MEDS: methylPREDNISolone 125 MG/2 ML VIAL IV STA (14:46)
[2024-09-13] MEDS ORDERED: POLYETHYLENE (MIRALAX) 17 GM PACK PO PRN (15:20)
[2024-09-13] MEDS ORDERED: PROMETHAZINE 6.25 MG/50.25 ML BAG IV PRN (15:20)
[2024-09-13] MEDS ORDERED: ACETAMINOPHEN 325 MG TAB PO PRN (15:20)
[2024-09-13] MEDS: SODIUM ZIRCONIUM CYCLOSILICATE 10 GM PACKET PO ONE (16:39)
[2024-09-13] MEDS: ASPIRIN 81 MG ECTAB PO SCH (16:39)
[2024-09-13] MEDS: FUROSEMIDE 40 MG/4 ML VIAL IV SCH (16:39)
[2024-09-13] MEDS: Nursing to Pharmacy Communication SCH (17:27)
[2024-09-13 19:44] LABS: BUN Creatinine Ratio 18.5 (10-20); Calcium 8.9 mg/dl (8.6-10.3); Creatinine Clr Calc Pharmacy 27.1 ml/min; Potassium 5.5 mmol/L (3.5-5.1)
[2024-09-13] MEDS ORDERED: SODIUM BICARBONATE 650 MG TAB PO SCH (21:00)
[2024-09-13] MEDS: amLODIPine BESYLATE 5 MG TAB PO SCH (21:30)
[2024-09-13] MEDS: carvediloL 25 MG TAB PO SCH (21:30)
[2024-09-13] MEDS: TACROLIMUS 1 MG CAP PO SCH (21:31)
[2024-09-13] MEDS: MYCOPHENOLATE SODIUM 180 MG TAB PO SCH (21:31)
[2024-09-13] MEDS: HEPARIN SOD 5,000 UNIT/0.5 ML VIAL SQ SCH (21:33)
[2024-09-14 04:21] LABS: Hematocrit (blood only) 26.8 % (42.0-52.0); Hemoglobin 8.7 g/dl (14.0-18.0); Mean Corpuscular Hgb Conc 32.5 g/dL (32.0-36.0); Mean Corpuscular Volume 89.3 fL (80.0-100.0); Mean Platelet Volume 10.5 fL (9.4-12.4); Platelet Count 167 K/uL (130-400); RDW Coefficient of Variation 14.5 % (11.5-14.5); RDW Standard Deviation 47.3 fL (36.4-46.3); White Blood Count 5.13 K/ul (4.8-10.8)
[2024-09-14] MEDS: TACROLIMUS 1 MG CAP PO SCH (08:03)
[2024-09-14] MEDS ORDERED: SODIUM ZIRCONIUM CYCLOSILICATE 10 GM PACKET PO SCH (09:00)
--- NOTE | 2024-09-14 12:19 | Hospitalist Progress Note ---
Date of Service September 14, 2024 Assessment & Plan (1) Kidney disease with fluid retention: (2) Hyperkalemia: (3) Kidney transplanted: (4) Hypertension: (5) Pancreas transplanted: (6) Immunosuppressed status: Plan Patient with a history of pancreas and renal transplant presents in a volume overloaded state. Patient has responded quite well to IV Lasix, continue Continue to monitor electrolytes and renal function Phone conversation with nephrology, he has reached out to the transplant team at [facility], awaiting callback. Low suspicion for rejection. Suspect patient is just in a volume overloaded state from his chronic renal dysfunction. Continue [employer] Activity as tolerated [employer] Admission and Anticipated Discharge Date Admission Date: September 13, 2024 Subjective Patient is quite pleased with his diuresis. 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 Lungs: Decreased breath sounds, few crackles at bases CV: S1-S2, regular Abdomen: Soft, nontender, nondistended Extremities: 2-3+ pitting edema lower extremities decreased edema posterior thigh Neuro: No focal deficits Psych: Cooperative, normal mood Results & Data Results & Data Vital Signs (Past 12 Hours) Vital Signs Temp Pulse Pulse Resp BP Pulse Ox O2 Del Method 09/14/24 11:24 65 17 138/63 98 Room Air 09/14/24 08:00 36.6 C 73 16 150/78 H 97 Room Air 09/14/24 07:24 66 09/14/24 03:20 37 C 70 16 177/85 H 96 Room Air Laboratory Results Reviewed imaging, laboratory and diagnostic studies. Pertinent findings as below. Hemoglobin 8.7 Potassium 5.5 Bicarb 20 Creatinine 3.51, improved from previous Echocardiogram shows's normal ejection fraction and of 60 to 65% with normal wall motion, no significant valvular disease Intake and output -4.5 L
--- NOTE | 2024-09-14 12:25 | Nephrology Consultation ---
Date of Consultation September 14, 2024 Assessment & Plan (1) Kidney disease with fluid retention: he clearly has anasarca involving entire body as well as scrotal with massive edema and massive scrotal swelling and he needs to be aggressively diuresed. He was not on any loop diuretics prior to hospitalization and almost certainly needs 1. he is currently getting Lasix 40 mg IV every 8 hours and has a Knapp catheter for accurate monitoring of urine output. he is responding very well with very brisk diuresis and even with that creatinine is holding stable for now. planning to continue IV Lasix with the aggressive diuresis for the next few days. will do daily renal panel as well as input output charting and weight measurement (2) History of kidney transplant: simultaneous kidney pancreas transplant in 2020 but in less than 5 years the allograft function is already very low. We will continue the Prograf and CellCept at the dose he was getting at home. the result of the Prograf level comes in very late in this hospital and is not really of much clinical use at this time (3) CKD (chronic kidney disease) stage 4, GFR 15-29 ml/min: reviewed his blood work from both inpatient back in June 2024 as well as recent outpatient from August 2024 and it appears his creatinine is currently running in the low 4. [facility] transplant department is aware of this abnormal lab. this gives him stage IV CKD and almost CKD 5. to lower the sodium load we will hold sodium bicarbonate as well as sodium zirconium both of which he was getting as an outpatient. however aggressive diuresis should take care of this also. Plan extensive discussion done with the hospitalist as well as patient and transplant department. Total time spent 65 minutes History of Present Illness Reason for Consultation: Status post kidney transplant now with massive anasarca Attending Physician: Mason Schumacher DO History of Present Illness 39-year-old male with DM I, ESRD s/p simultaneous pancreas and kidney transplant in 2020 at [facility] presented to ER with c/o progressive BLE edema x 2 months and scrotal edema x 2 days. he has felt significant weight gain but he does not check his weight to know the exact number. His current kidney transplant is not functioning very well. he was admitted at [facility] in June 2024 for about 1 week. He even had a renal biopsy done at the time which showed some rejection however the creatinine remained in the 4s. On the day of discharge creatinine was 4.7. he also had outpatient blood test done on September 01 and it was 4.1. blood test done yesterday showed a creatinine of 3.55. patient is not on any diuretics despite increasing edema. there is some mention of noncompliance with medication/ clinic appointments some of which is related with insurance [employer]. emergency department doctor was in contact with [facility] yesterday and was told that patient can remain at [facility] for now. patient is getting Lasix 40 mg IV Q at our and with that he has made 4.7 L of very clear dilute urine and he is starting to feel less edematous. he has some shortness of breath but is not prominent symptoms. review of systems------ as detailed in HPI unless stated otherwise 12 systems reviewed and negative. physical examination young white male who is not in any respiratory distress although he does have swelling in his face as well as around the eyes awake alert oriented and was able to give detailed account of his medical history mucous membrane is moist neck is supple no JVD chest bilateral decreased breath sound occasional basal crackles CVS S1 and S2 regular abdomen is soft nontender with abdominal wall edema extremities shows 4+ pitting edema bilaterally he also has significant scrotal swelling Allergies Allergy/AdvReac Type Severity Reaction Status Date / Time NSAIDS (Non-Steroidal AdvReac Unknown RENAL Verified 09/13/24 12:54 Anti-Inflamma FAILURE Home Medications Medication Instructions Recorded Confirmed Type mycophenolate sodium 180 mg 540 mg PO BID 01/24/24 09/13/24 History tablet,delayed release tacrolimus 1 mg capsule, See Rx Instructions .Route .COMPLEX 01/24/24 09/13/24 History immediate-release amlodipine 10 mg tablet 10 mg PO HS 09/13/24 09/13/24 History aspirin 81 mg tablet,delayed 81 mg PO DAILY 09/13/24 09/13/24 History release carvedilol 25 mg tablet 25 mg PO BID 09/13/24 09/13/24 History sodium bicarbonate 650 mg tablet 1,300 mg PO BID 09/13/24 09/13/24 History sodium zirconium cyclosilicate 5 10 g PO PM 09/13/24 09/13/24 History gram oral powder packet (Lokelma) Patient History Medical History (Updated 09/14/24 @ 12:32 by Des Marcano MD) CKD (chronic kidney disease) stage 4, GFR 15-29 ml/min Peritoneal dialysis catheter in place REMOVED 11/10/19 History of peritoneal dialysis Surgical History S/P eye surgery Family History Mother Hypertension Grandfather (Maternal) Diabetes Grandmother (Maternal) Diabetes Grandmother (Paternal) Diabetes Social History Smoking Status: Former smoker Tobacco Type: Cigarettes Cigarettes Per Day: 10; Second Hand Exposure: No; Do You Dip or Chew Tobacco: No; Hx Alcohol Use: No Hx Substance Use: No Preferred Language: Mongolian Communication Ability: Effective Visual Impairment: Limited Jewelry Facer Required: No Beliefs That Will Affect Care: None marital status: Single Current Living Situation: Alone Current Living Situation Comment: lives at home alone current occupational status: employed Other Information That Helps Us Care for You: No Feels Safe at Home: Yes Safety Concerns: Feels Safe At This Time Assistive Devices: None Results & Data Vital Signs (Past 12 Hours) Vital Signs Temp Pulse Pulse Resp BP Pulse Ox O2 Del Method 09/14/24 11:24 65 17 138/63 98 Room Air 09/14/24 08:00 36.6 C 73 16 150/78 H 97 Room Air 09/14/24 07:24 66 09/14/24 03:20 37 C 70 16 177/85 H 96 Room Air
[2024-09-15 09:17] LABS: BUN Creatinine Ratio 19.5 (10-20); Calcium 9.2 mg/dl (8.6-10.3); Creatinine Clr Calc Pharmacy 21.5 ml/min; Magnesium 1.8 mg/dl (1.7-2.4); Potassium 5.6 mmol/L (3.5-5.1)
[2024-09-15 10:52] LABS: Total Protein 24 Hour Urine 4373.6 mg/24 Hr (0-149.1); Urine Total Protein 99.4 mg/dl
--- NOTE | 2024-09-15 10:55 | Nephrology Progress Note ---
Date of Service September 15, 2024 Assessment & Plan Admission and Anticipated Discharge Date Admission Date: September 13, 2024 Subjective Assessment & Plan (1) Kidney disease with fluid retention: he clearly has anasarca involving entire body as well as scrotal with massive edema and massive scrotal swelling and he needs to be aggressively diuresed. He was not on any loop diuretics prior to hospitalization and almost certainly needs 1. he is currently getting Lasix 40 mg IV every 8 hours and has a Knapp catheter for accurate monitoring of urine output. he is responding very well with very brisk diuresis and even with that creatinine is holding stable for now. Planning to continue IV Lasix with the aggressive diuresis till AM tomorrow and then Change to oral Diuretics. maybe torsemide 40 bid. Lower lasix to 40 iv bid. will do daily renal panel as well as input output charting and weight measurement Creat up a bit today but that is expected as his Creat was falsely low with massive ansarca he had on Admission. (2) History of kidney transplant: simultaneous kidney pancreas transplant in 2020 but in less than 5 years the allograft function is already very low. We will continue the Prograf and CellCept at the dose he was getting at home. the result of the Prograf level comes in very late in this hospital and is not really of much clinical use at this time. I have called Transplant Dept at [facility] multiple times. that phone line does not work. No option to leave a message. I have sent message to his sales project coordinator to call me back. I have not heard back. even now creat is about same as what he was getting as outpt and when he was inpt in at [facility] (3) CKD (chronic kidney disease) stage 4, GFR 15-29 ml/min: reviewed his blood work from both inpatient back in June 2024 as well as recent outpatient from August 2024 and it appears his creatinine is currently running in the low 4. [facility] transplant department is aware of this abnormal lab. this gives him stage IV CKD and almost CKD 5. K does not seem to go down--so did put him on the Sodium Zirconium he was getting at home. S--massive urine output. edema is lot less. Scrotal swelling is lot less. he is happy. physical examination young white male who is not in any respiratory distress although he does have swelling in his face as well as around the eyes awake alert oriented and was able to give detailed account of his medical history mucous membrane is moist neck is supple no JVD chest bilateral decreased breath sound occasional basal crackles CVS S1 and S2 regular abdomen is soft nontender with abdominal wall edema extremities shows 2+ pitting edema bilaterally he also has significant scrotal swelling Results & Data Vital Signs (Past 12 Hours) Vital Signs Temp Pulse Resp BP Pulse Ox O2 Del Method 09/15/24 07:10 36.7 C 69 16 145/70 H 97 Room Air
--- NOTE | 2024-09-15 12:08 | Hospitalist Progress Note ---
Date of Service September 15, 2024 Assessment & Plan (1) Kidney disease with fluid retention: (2) Hyperkalemia: (3) Kidney transplanted: (4) Hypertension: (5) Pancreas transplanted: (6) Immunosuppressed status: Plan Patient with anasarca, severe volume overload due to chronic kidney disease. I reviewed nephrology notation, continue IV diuresis through today, decreasing from every 8 to every 12 hours, consider transitioning oral diuretics tomorrow Continue to monitor potassium and renal function Encourage patient if at all possible to have his boot brought in so we can see if he can ambulate with that now that the swelling is significantly decreased At this time low suspicion for transplant rejection process. Admission and Anticipated Discharge Date Admission Date: September 13, 2024 Subjective Patient is pleased with his ongoing diuresis. Physical Exam Physical Exam: Constitutional: Alert, nontoxic HEENT: Mucous membranes moist. Lungs: Clear to auscultation, decreased, no wheezes rales or rhonchi CV: S1-S2, regular Abdomen: Soft, nontender, nondistended Extremities: Edema in lower extremities and scrotum is significantly decreased. Charcot foot Neuro: No focal deficits Psych: Cooperative, normal mood Results & Data Results & Data Vital Signs (Past 12 Hours) Vital Signs Temp Pulse Resp BP Pulse Ox O2 Del Method 09/15/24 07:10 36.7 C 69 16 145/70 H 97 Room Air Diagnostic Findings Reviewed imaging, laboratory and diagnostic studies. Pertinent findings as below. Potassium 5.6 Creatinine 4.41, slightly increased but still within his baseline 24-hour urine protein 4373.6
[2024-09-15] MEDS: SODIUM ZIRCONIUM CYCLOSILICATE 10 GM PACKET PO SCH (12:25)
[2024-09-15] MEDS ORDERED: ASPIRIN 81 MG ECTAB PO SCH (19:00)
[2024-09-15] MEDS: FUROSEMIDE 40 MG/4 ML VIAL IV SCH (22:49)
[2024-09-16 07:18] LABS: BUN Creatinine Ratio 18.2 (10-20); Calcium 9.2 mg/dl (8.6-10.3); Creatinine Clr Calc Pharmacy 19.2 ml/min; Potassium 5.2 mmol/L (3.5-5.1)
[2024-09-16] MEDS ORDERED: LOPERAMIDE HCL 2 MG CAP PO PRN (11:13)
--- NOTE | 2024-09-16 11:20 | Hospitalist Progress Note ---
Date of Service September 16, 2024 Assessment & Plan (1) Kidney disease with fluid retention: (2) Hyperkalemia: (3) Kidney transplanted: (4) Hypertension: (5) Pancreas transplanted: (6) Immunosuppressed status: Plan Patient has significantly responded to IV diuresis. Another 3.7 L removed today Creatinine is essentially at his baseline now. He had better creatinine on admission due to the fact that he was significantly volume overloaded. This appears to be his baseline Discontinue IV diuretics Communication with nephrology, they will order and plan to order oral diuretics today Low suspicion for any infectious process for the patient's diarrhea. Will continue to monitor can use Imodium cautiously. Patient's potassium has been stable around 5.2 to 5.5. I suspect this is his baseline, is tolerating well. Will continue the [facility] Monitor laboratory studies in the a.m., anticipate if stable discharge tomorrow on oral diuretic to follow-up with his outpatient providers. Admission and Anticipated Discharge Date Admission Date: September 13, 2024 Subjective Patient reports some loose stools overnight 3-4 in number. No diarrhea, no a bdominal pain otherwise feels fine. Diuresed well again. Was concerned about some thickened skin around his penis after the swelling improved Review of Systems Review of Systems: Constitutional: Alert, nontoxic HEENT: Mucous membranes moist. Lungs: Clear to auscultation, decreased, no wheezes rales or rhonchi CV: S1-S2, regular Abdomen: Soft, nontender, nondistended Extremities: Edema significantly improved in the lower extremities and scrotum, some loose skin around the penis and scrotum due to that being significantly stretched with his edema. No redness, no tenderness, no lesions Neuro: No focal deficits Psych: Cooperative, normal mood Results & Data Results & Data Vital Signs (Past 12 Hours) Vital Signs Temp Pulse Resp BP Pulse Ox O2 Del Method 09/16/24 07:15 36.5 C 59 L 16 138/70 98 Room Air 09/15/24 23:35 36.6 C 60 18 152/78 H 98 Room Air Diagnostic Findings Reviewed imaging, laboratory and diagnostic studies. Pertinent findings as below. Potassium 5.2 Creatinine 4.9
--- NOTE | 2024-09-16 12:24 | Nephrology Progress Note ---
Date of Service September 16, 2024 Assessment & Plan Admission and Anticipated Discharge Date Admission Date: September 13, 2024 Subjective Assessment & Plan (1) Kidney disease with fluid retention: he clearly has anasarca involving entire body as well as scrotal with massive edema and massive scrotal swelling and he needs to be aggressively diuresed. He was not on any loop diuretics prior to hospitalization and almost certainly needs 1. he is responding very well with very brisk diuresis and even with that creatinine is holding stable for now. Planning to continue IV Lasix with the aggressive diuresis till AM tomorrow and then Change to oral Diuretics. maybe torsemide 40 bid. Stop Iv lasix for now to give him a break. Knapp is out. No oral diuretics today. will decide after labs and clinical assessment tomorrow will do daily renal panel as well as input output charting and weight measurement Creat up a bit today but that is expected as his Creat was falsely low with massive anasarca he had on Admission. (2) History of kidney transplant: simultaneous kidney pancreas transplant in 2020 but in less than 5 years the allograft function is already very low. We will continue the Prograf and CellCept at the dose he was getting at home. the result of the Prograf level comes in very late in this hospital and is not really of much clinical use at this time. I have called Transplant Dept at [facility] multiple times. That phone line does not work. No option to leave a message. I have sent message to his property coordinator to call me back. I have not heard back. Even now creat is about same as what he was getting as outpt and when he was inpt in at [facility]. creat was 4.7 when he was discharged from [facility] in . (3) CKD (chronic kidney disease) stage 4, GFR 15-29 ml/min: reviewed his blood work from both inpatient back in June 2024 as well as recent outpatient from August 2024 and it appears his creatinine is currently running in the low 4. [facility] transplant department is aware of this abnormal lab. this gives him stage IV CKD and almost CKD 5. K does not seem to go down--so did put him on the Sodium Zirconium he was getting at home. 24 hr urine protein 4.7 gm. 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 K is 5.2 and will continue oral lokelma like outpt. No Sodium bicarb for now S--massive urine output. edema is lot less. Scrotal swelling is lot less. he is happy. physical examination young white male who is not in any respiratory distress awake alert oriented and was able to give detailed account of his medical history mucous membrane is moist neck is supple no JVD chest bilateral decreased breath sound occasional basal crackles CVS S1 and S2 regular abdomen is soft nontender with abdominal wall edema extremities shows 1+ pitting edema bilaterally ( lot less ) he also has scrotal swelling--but lot lot less than before Results & Data Vital Signs (Past 12 Hours) Vital Signs Temp Pulse Resp BP Pulse Ox O2 Del Method 09/16/24 07:15 36.5 C 59 L 16 138/70 98 Room Air
[2024-09-16 20:25] VITALS: RESP 16; O2SAT 97
[2024-09-17 07:03] VITALS: BP 138/76; TEMP 97.9
[2024-09-17 08:04] LABS: BUN Creatinine Ratio 18.6 (10-20); Creatinine Clr Calc Pharmacy 19.6 ml/min; Magnesium 1.9 mg/dl (1.7-2.4); Potassium 5.1 mmol/L (3.5-5.1)
[2024-09-17 11:10] VITALS: PULSE 63
--- NOTE | 2024-09-17 11:12 | Discharge Summary ---
Discharge Summary Date of Service September 17, 2024 Principal Dx & Hospital Course #1 = Principal Diagnosis (1) Kidney disease with fluid retention: (2) Hyperkalemia: Chronic and stable 5.0-5.4 (3) Kidney transplanted: (4) Hypertension: (5) Pancreas transplanted: (6) Immunosuppressed status: Plan Patient presented to the emergency room with severe swelling in his legs and scrotum. Has been accumulating over the past couple months. Patient is now on and status post renal and pancreatic transplant had a recent hospitalization at [facility] where his transplant team is located. Baseline creatinine at the time of discharge was in the upper 4. Transplant team was contacted who recommended treatment here at [facility]. Patient was admitted to the hospital. And he was given IV diuresis with furosemide. Nephrology consultation was obtained. They recommend ongoing IV diuresis. The patient responded extremely well to the diuretic. His renal function was monitored on a daily basis and maintained within his baseline range. His potassium always remains slightly elevated but stable on his diuretic and the Lokelma. Patient's mobility significantly improved with the decreased edema in his legs. Edema in his scrotum and penis completely resolved. His other vital signs stabilized. On the day of discharge she had minimal to no edema. He already has established and scheduled follow-up with his transplant team this coming week and his PCP next week. To be discharged home on oral diuretic follow-up with these providers. Notes For Next Care Provider Anticipate patient will need daily ongoing diuretics that may need to be titrated Medication Changes From Visit Torsemide added to medical regimen Admission HPI Per Admitting Provider Patient is a 39-year-old male with PMH HTN, DM I, ESRD s/p simultaneous pancreas and kidney transplant in 2020 at [facility] presented to ER with c/o progressive BLE edema x 2 months and scrotal edema x 2 days. Per inpatient chart review patient with history hospitalization at [facility] 07/02/2024-07/04/24 for hypertensive urgency, JUANA and was transferred to [facility] on 07/04/2024 and discharged on 07/13/24 with diagnosis of JUANA, acute rejection of kidney transplant, HTN urgency. Per [facility] discharge note there had Renal US showed patent vessels. CMV, BKV, HIV negative, C3 and C4 wnl. DSA Class I negative, Class II positive, ANDI 1:160, PLA2R Ab negative. 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 He was treated with 3 days IV Solu-Medrol 250mg and was discharged on aspirin 81 mg daily, carvedilol 25mg BID, amlodipine 10mg QHS, Lokelma 10 mg daily, sodium bicarb 1300mg twice daily for hyperkalemia/acidosis and mycophenolate 540mg BID, Tacrolimus 2mg in am and 1mg in PM. It was thought that patient may require prednisone 5mg daily in the future. It was recommended patient follow up with operations research engineer locally. Since that time in 06/2024 patient reports progressive BLE edema. He states past 2 days with significant scrotal edema and discomfort. He states did not have his home medications today. Taking Lokelma, but admits to missing multiple doses a week. Reports last took 2 days ago. (Last filled in 07/14/24 for 30 day supply). He states sometimes feels SOB upon awakening in the morning that resolves upon sitting up. Denies CP. He states has not followed up with PCP and has not re-established with nephrology locally. He states has follow up with transplant team at [facility] later this month. Denies fever/chills, diaphoresis, N/V/D/C, LYON, dizziness, syncope, vision changes, neck pain, palpitations, cough, sore throat, abdominal pain, paresthesias, rashes, urinary symptoms. [facility] Manager Human Resources Saqib Joay Admission Exam Per Admitting Provider See H&P Discharge Exam Constitutional: Alert, nontoxic HEENT: Mucous membranes moist. Lungs: Clear to auscultation, decreased, no wheezes rales or rhonchi CV: S1-S2, regular Abdomen: Soft, nontender, nondistended Extremities: Essentially no residual edema and pelvic area upper thighs and lower legs, some mild chronic ankle edema. Chronic Charcot foot Neuro: No focal deficits Psych: Cooperative, normal mood Updated Medication List Medication Instructions Recorded Confirmed Type mycophenolate sodium 180 mg 540 mg PO BID 01/24/24 09/13/24 History tablet,delayed release tacrolimus 1 mg capsule, See Rx Instructions .Route .COMPLEX 01/24/24 09/13/24 History immediate-release amlodipine 10 mg tablet 10 mg PO HS 09/13/24 09/13/24 History aspirin 81 mg tablet,delayed 81 mg PO DAILY 09/13/24 09/13/24 History release carvedilol 25 mg tablet 25 mg PO BID 09/13/24 09/13/24 History sodium bicarbonate 650 mg tablet 1,300 mg PO BID 09/13/24 09/13/24 History sodium zirconium cyclosilicate 5 10 g PO PM 09/13/24 09/13/24 History gram oral powder packet (Lokelma) torsemide 20 mg tablet 20 mg PO DAILY #30 tabs 09/17/24 Rx Hospital Stay Data Consultations 09/13/24 12:50 ED Decision to Admit Stat 09/13/24 14:07 Consult Nephrology Routine Diagnostic Imagining Performed Reviewed imaging, laboratory and diagnostic studies. Pertinent findings as below. Sodium 135 Potassium 5.1 Chloride 103 BUN 90 Creatinine 4.84 within his baseline range Echocardiogram showed normal ejection fraction with normal wall motion. No significant valvular disease. Trivial pericardial effusion without any evidence of tamponade. I refer you to the full report for details Pending Results Patient Have Any Pending Studies at Discharge: No Discharge Instructions Given to Patient (Per Discharging Provider) Follow-up with your transplant team as scheduled this coming week Follow-up with your PCP as scheduled next week Total Time Total Time Spent Total Time Spent (In Minutes): 32
--- NOTE | 2024-09-17 11:16 | Nephrology Progress Note ---
Date of Service September 17, 2024 Assessment & Plan Admission and Anticipated Discharge Date Admission Date: September 13, 2024 Subjective Assessment & Plan (1) Kidney disease with fluid retention: he clearly has anasarca involving entire body as well as scrotal with massive edema and massive scrotal swelling and he needs to be aggressively diuresed. He was not on any loop diuretics prior to hospitalization and almost certainly needs 1. he is responding very well with very brisk diuresis and even with that creatinine is holding stable for now. No oral diuretics today. Creat up a bit but that is expected as his Creat was falsely low with massive anasarca he had on Admission. Swelling down a lot but still has some edema. Creat today down a bit from yesterday. Discharge on low dose torsemide 20 daily. can be discharged today he does have appt with transplant dept at [facility] in few days. other meds to continue same as before. Same dose and all meds same as before. f/u [facility] nephrology if possible ( insurance limitations) within next 2 weeks ( more important he follows with transplant dept) (2) History of kidney transplant: simultaneous kidney pancreas transplant in 2020 but in less than 5 years the allograft function is already very low. We will continue the Prograf and CellCept at the dose he was getting at home. the result of the Prograf level comes in very late in this hospital and is not really of much clinical use at this time. I have called Transplant Dept at [facility] multiple times. That phone line does not work. No option to leave a message. I have sent message to his cooperative education coordinator to call me back. I have not heard back. Even now creat is about same as what he was getting as outpt and when he was inpt in at [facility]. creat was 4.7 when he was discharged from [facility] in . So current creat of 4.8 is stable baseline (3) CKD (chronic kidney disease) stage 4, GFR 15-29 ml/min: reviewed his blood work from both inpatient back in June 2024 as well as recent outpatient from August 2024 and it appears his creatinine is currently running in the low 4. [facility] transplant department is aware of this abnormal lab. this gives him stage IV CKD and almost CKD 5. K does not seem to go down--so did put him on the Sodium Zirconium he was getting at home. 24 hr urine protein 4.7 gm. 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 K is 5.2 and will continue oral lokelma like outpt. No Sodium bicarb for now S--massive urine output. edema is lot less. Scrotal swelling is lot less. he is happy. physical examination young white male who is not in any respiratory distress awake alert oriented and was able to give detailed account of his medical history mucous membrane is moist neck is supple no JVD chest bilateral decreased breath sound occasional basal crackles CVS S1 and S2 regular abdomen is soft nontender with abdominal wall edema extremities shows 1+ pitting edema bilaterally ( lot less ) he also has scrotal swelling--but lot lot less than before Results & Data Vital Signs (Past 12 Hours) Vital Signs Temp Pulse Pulse Resp BP Pulse Ox O2 Del Method 09/17/24 11:09 36.6 C 63 60 16 138/76 97 09/17/24 07:02 36.6 C 60 16 138/76 97 Room Air
== END 2024-09-17 12:18 | disposition home or self-care (01) | DRG 948 ==
LOC: ED 09:10 → EDINP 14:06 → SUATTDRO 14:06 → 3W 15:10

== ENCOUNTER 2025-07-19 16:06 | Inpatient (IN) ==
--- NOTE | 2025-07-19 16:25 | Emergency Department Note ---
Impression & Plan Hypertensive urgency, Acute dyspnea, Pancreas transplanted, Kidney transplanted, Chest pain ED Provider Note NAME: SAVAGE KIDD AGE: 40 SEX: M : 1985 ARRIVES VIA: Walk-In INFORMANT: Patient ED PROVIDER(S): Barry Townsend MD CHIEF COMPLAINT: Hypertension, chest pain PLAN: Disposition: Admit MEDICAL DECISION MAKING: The patient is a pleasant 40-year-old gentleman with a past medical history of kidney transplant and pancreas transplant in January of 2021 on CellCept and Prograf, failure of transplanted kidney following with nephrology who presents to the emergency department via walk-in accompanied by his father for evaluation of high blood pressure and chest tightness today with associated shortness of breath and generalized weakness. Patient reports that he has been monitoring his kidney function with his assembly leader outpatient and understands that the plan will be to begin dialysis starting in July due to his worsening kidney function. Patient denies any fevers, chills, cough, congestion, GI or symptoms. He reports he still urinates daily. On evaluation the patient is in no distress, afebrile with blood pressure 180/90s and vital signs otherwise stable. He appears euvolemic to dry. EKG without overt acute ischemia. CXR with mild pulmonary edema per my personal preliminary review/interpretation. Limited bedside cardiac ultrasound was performed and demonstrates small/trivial circumferential pericardial effusion which was similarly described on formal echo in August 2024. WBC and platelets within normal limits. H/H similar to prior. Chemistry with bicarbonate of 17 similar to prior range of values. Potassium 4.0, within normal limits. Magnesium 1.7, within normal limits. Creatinine 6.81 with BUN of 100. High-sensitivity troponin 18.6, within normal limits. Lipase is normal. TSH within normal limits. UA with 4+ protein and otherwise no evidence of infection. Given the patient's symptoms of chest pain and shortness of breath with mild pulmonary edema in the setting of hypertensive urgency patient does agree with plan for admission for further management. Treatment initiated with 10 mg of IV labetalol. Case was discussed with Dr. Bennett, [facility] hospitalist who will evaluate the patient for admission. Further management per admitting team. Triage Nursing notes reviewed and agree them. Prior/external medical records reviewed Vital Signs: reviewed Differential diagnosis: Infection, dehydration, metabolic abnormality, hypo/hyperglycemia, electrolyte disturbance, anemia, hypoxia, cardiac sources, intracerebral event, toxicologic, neurologic, as well as other pathologies. ER treatment provided: See below. Diagnostics interpreted by me: ECG: Normal sinus rhythm, 80 bpm, no ectopy, no overt ST elevation or depression, QTc 493, QRS 88. Cardiac Monitoring: An order for continuous cardiac monitoring was placed and demonstrated ormal sinus rhythm, 80 bpm, no ectopy. Laboratory studies: See below Imaging studies: See below Consultation(s): Case was discussed with Dr. Bennett, [facility] hospitalist who will evaluate the patient for admission. HPI: Per MDM. ROS: See above HPI for pertinent positives & negatives. A total of 10 systems reviewed and were otherwise negative. VITALS:See Below PHYSICAL EXAMINATION: GENERAL: Awake, alert, in no distress HENT: Normocephalic, atraumatic. Oropharynx unremarkable. EYES: Normal conjunctiva. Sclera non-icteric. NECK: Supple. No nuchal rigidity. FROM. No JVD. RESPIRATORY: Clear to auscultation. CARDIAC: Regular rate, normal rhythm. Extremities warm and well perfused. Pulses equal. Right upper extremity AV fistula with palpable thrill. ABDOMEN: Soft, non-distended. No tenderness to palpation. No rebound or guarding. No masses. MUSCULOSKELETAL: Chest examination reveals no tenderness. The back is symmetrical on inspection without obvious abnormality. There is no CVA tenderness to palpation. No joint edema. LOWER EXTREMITIES: Calves are equal size bilaterally and non-tender. No edema. No discoloration. NEURO: Normal sensorium. No sensory or motor deficits noted. SKIN: No rash or jaundice noted. Barry Townsend MD Past Med/Surg History Problem List (Updated 07/19/25 @ 19:15 by Barry Townsend MD) Chest pain (Acute) Kidney disease with fluid retention Edema (Acute) Scrotal edema Hypertensive emergency (Acute) Acute kidney injury superimposed on chronic kidney disease (Acute) History of pancreas transplant (Acute) History of kidney transplant (Acute) SIRS (systemic inflammatory response syndrome) (Acute) Immunosuppressed status (Acute) Influenza A (Acute) Hyponatremia Influenza Pneumonia Recurrent UTI Incomplete bladder emptying Hyperkalemia Complicated UTI (urinary tract infection) Acute UTI (Acute) COVID-19 (Acute) Acute hyperkalemia (Acute) At risk for fertility problems Hypertension Chronic wound of extremity Erectile dysfunction Anemia DVT prophylaxis Immunosuppressed status Pancreas transplanted (Acute) January 2021-[facility] Kidney transplanted (Acute) January 2021-[facility] Acute UTI (Acute) Pneumonia of both lower lobes Hypoxia (Acute) Acute dyspnea (Acute) Cough (Acute) Fever (Acute) Fluid overload (Acute) Acute respiratory failure UTI (urinary tract infection) Hypertensive urgency (Acute) Aspiration pneumonia Hypoxia Sepsis (Acute) Pneumonia (Acute) End stage renal disease (Acute) DVT prophylaxis Acute respiratory failure with hypoxia Pneumonitis ESRD on dialysis Bacteremia due to Staphylococcus aureus MSSA bacteremia 10/05/19 treated with cefazolin x 6 wks Anemia in ESRD (end-stage renal disease) (Chronic) Prolonged QT interval (Chronic) TIA (transient ischemic attack) (Chronic) Nephrotic syndrome due to diabetes mellitus (Chronic) Fatty liver (Chronic) Charcot foot due to diabetes mellitus (Chronic) Diabetic retinopathy (Chronic) 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) Medical History CKD (chronic kidney disease) stage 4, GFR 15-29 ml/min Peritoneal dialysis catheter in place REMOVED 11/10/19 History of peritoneal dialysis Surgical History S/P eye surgery Family History Mother Hypertension Grandfather (Maternal) Diabetes Grandmother (Maternal) Diabetes Grandmother (Paternal) Diabetes Social History Smoking Status: Former smoker Tobacco Type: Cigarettes Cigarettes Per Day: 10; Second Hand Exposure: No; Do You Dip or Chew Tobacco: No; Hx Alcohol Use: No Hx Substance Use: No Preferred Language: Occitan Communication Ability: Effective Visual Impairment: Limited Able Seaman Required: No Beliefs That Will Affect Care: None marital status: Single Current Living Situation: Alone Current Living Situation Comment: lives at home alone current occupational status: employed Feels Safe at Home: Yes Assistive Devices: None Allergies Allergies Allergy/AdvReac Type Severity Reaction Status Date / Time NSAIDS (Non-Steroidal AdvReac Unknown RENAL Verified 03/18/25 09:06 Anti-Inflamma FAILURE Home Meds Home Medications Medication Instructions Recorded Confirmed mycophenolate sodium 180 mg 720 mg PO BID 01/24/24 07/19/25 tablet,delayed release tacrolimus 1 mg capsule, 4 mg PO BID 01/24/24 07/19/25 immediate-release aspirin 81 mg tablet,delayed 81 mg PO DAILY 09/13/24 07/19/25 release sodium bicarbonate 650 mg tablet 1,950 mg PO BID 09/13/24 07/19/25 torsemide 20 mg tablet 20 mg PO QAM 11/14/24 07/19/25 calcitriol 0.5 mcg capsule 0.5 mcg PO DAILY 03/18/25 07/19/25 Lokelma 10 mg PO QAM 07/19/25 07/19/25 allopurinol 100 mg tablet 100 mg PO QAM 07/19/25 07/19/25 amlodipine 10 mg PO QPM 07/19/25 07/19/25 torsemide 60 mg PO QPM 07/19/25 07/19/25 Results & Data (ED) Vital Signs Vital Signs - 24 hr 07/19/25 16:14 07/19/25 16:44 07/19/25 17:00 Temperature 37.0 C Temperature Source Oral Pulse Rate 88 77 Pulse Rate [Apical] 81 Respiratory Rate 20 20 Respiratory Effort / Characteristics Spontaneous Short of Breath Respiratory Depth Normal Blood Pressure 189/91 H Blood Pressure [Left Arm] 186/98 H Blood Pressure Mean 123 Blood Pressure Mean [Left Arm] 127 Pulse Oximetry 97 96 Oxygen Delivery Method Room Air Room Air Sepsis Recent Fever Within 48 Hours No Sepsis New/Unexplained Change in Mental Status N/A Sepsis Action Taken by Nursing No Action Required 07/19/25 17:57 07/19/25 17:57 07/19/25 18:15 Temperature Temperature Source Pulse Rate 78 75 Pulse Rate [Apical] 78 Respiratory Rate 16 Respiratory Effort / Characteristics Respiratory Depth Blood Pressure 182/93 H 188/96 H Blood Pressure [Left Arm] 182/93 H Blood Pressure Mean Blood Pressure Mean [Left Arm] 122 Pulse Oximetry 96 Oxygen Delivery Method Room Air Sepsis Recent Fever Within 48 Hours Sepsis New/Unexplained Change in Mental Status Sepsis Action Taken by Nursing 07/19/25 19:00 Temperature Temperature Source Pulse Rate Pulse Rate [Apical] 78 Respiratory Rate 18 Respiratory Effort / Characteristics Respiratory Depth Blood Pressure Blood Pressure [Left Arm] 177/91 H Blood Pressure Mean Blood Pressure Mean [Left Arm] 119 Pulse Oximetry 97 Oxygen Delivery Method Room Air Sepsis Recent Fever Within 48 Hours Sepsis New/Unexplained Change in Mental Status Sepsis Action Taken by Nursing Laboratory Data Attestation: I reviewed the patient's lab results. 07/19/25 16:30 07/19/25 16:30 Lab Results 07/19/25 07/19/25 Range/Units 16:30 17:25 WBC 7.94 (4.8-10.8) K/ul RBC 3.13 L (4.70-6.10) M/uL Hgb 8.9 L (14.0-18.0) g/dL Hct 26.3 L (42.0-52.0) % MCV 84.0 (80.0-100.0) fL MCH 28.4 (25.0-34.0) pg MCHC 33.8 (32.0-36.0) g/dL RDW Std Deviation 39.7 (36.4-46.3) fL RDW Coeff of Ralph 13.2 (11.5-14.5) % Plt Count 179 (130-400) K/uL MPV 10.4 (9.4-12.4) fL Immature Gran % (Auto) 0.4 % Neut % (Auto) 80.3 % Lymph % (Auto) 8.8 % [place] % (Auto) 8.6 % Eos % (Auto) 1.3 % Baso % (Auto) 0.6 % Neut # (Auto) 6.38 (1.40-6.50) K/uL Lymph # (Auto) 0.70 L (1.20-3.40) K/uL [place] # (Auto) 0.68 H (0.11-0.59) K/uL Eos # (Auto) 0.10 (0.00-0.50) K/uL Baso # (Auto) 0.05 (0.00-0.20) K/uL Immature Gran # (Auto) 0.03 (0.01-0.20) K/uL PT 10.8 (9.0-12.0) Seconds INR 1.0 (0.9-1.1) Sodium 138 (136-145) mmol/L Potassium 4.0 (3.5-5.1) mmol/L Chloride 106 (98-107) mmol/L Carbon Dioxide 17 L (21-32) mmol/L Anion Gap 15 H (3-11) BUN 100 H (6-23) mg/dl Creatinine 6.81 H* (0.6-1.4) mg/dl Est Cr Clr Drug Dosing 13.8 ml/min eGFR 9.70 BUN/Creatinine Ratio 14.7 (10-20) Glucose 85 (70-99(Fasting)) mg/dl Calcium 7.6 L (8.6-10.3) mg/dl Phosphorus 8.5 H (2.5-4.9) mg/dl Magnesium 1.7 (1.7-2.4) mg/dl Total Bilirubin 0.4 (0.2-1.0) mg/dl AST 11 L (13-39) U/L ALT 9 (7-52) U/L Alkaline Phosphatase 49 (34-104) U/L Troponin I High Sens 18.6 (0-20) pg/ml Total Protein 6.3 (6.0-8.3) gm/dl Albumin 3.3 L (3.4-5.0) gm/dl Globulin 3.0 (2.5-4.0) gm/dl Albumin/Globulin Ratio 1.1 (0.9-2) Lipase 35 (11-82) U/L TSH 3.145 (0.300-4.500) uIu/ml Urine Color Yellow Urine Appearance Clear (Clear) Urine pH 6.0 (4.5-7.5) Ur Specific [place] 1.015 (1.000-1.030) Urine Protein 4+ H (Negative) Urine Glucose (UA) Trace H (Negative) Urine Ketones Negative (Negative) Urine Blood 1+ H (Negative) Urine Nitrite Negative (Negative) Urine Bilirubin Negative (Negative) Urine Urobilinogen Negative (Negative) Ur Leukocyte Esterase Negative (Negative) Urine WBC (Auto) 0-5 (0-5) /hpf Urine RBC (Auto) 0-2 (0-2) /hpf U Hyaline Cast (Auto) 0-2 (0-2) /lpf U Epithel Cells (Auto) 0-2 (0-2) /hpf Urine Bacteria (Auto) None Seen (None Seen) Urine Comment Administered Medications Discontinued Medications Labetalol HCl (Labetalol Hcl Iv 5 Mg/Ml 20ml) 10 mg IV NOW STA Stop: 07/19/25 17:52 Last Admin: 07/19/25 17:57 Dose: 10 mg Documented By: amg Imaging Data Radiologist's Impression: Chest X-Ray 07/19/25 16:19 Clinical History: Chest pain and hypertension Technique: A frontal view of the chest was obtained Comparison is made to the prior examination dated 11/14/2024 Findings: There are no confluent pulmonary infiltrates. The heart is mildly enlarged. No pleural effusion or pneumothorax is seen. There is suspected mild pulmonary edema No fracture is noted. No foreign body is seen Impression: Mild cardiomegaly and mild pulmonary edema ACT 112: Positive. There are findings on this exam that require communication between the performing entity and the patient following Patient Test Result Information Act ([place] ACT 112) guidelines. Electronically signed by Jude Kaufman 07-19-2025 5:07 PM Discharge Plan Visit Data Chief Complaint: Hypertension Stated Complaint: HIGH BP, SOB, HEADACHE, KIDNEY FAILURE ED Provider: Barry Townsend Discharge Problem: Hypertensive urgency, Acute dyspnea, Pancreas transplanted, Kidney transplanted, Chest pain Patient Disposition: Admitted As Inpatient Condition: Fair Prescriptions Prescriptions: No Action tacrolimus 1 mg capsule 4 mg PO BID mycophenolate sodium 180 mg tablet,delayed release (DR/EC) 720 mg PO BID aspirin 81 mg tablet,delayed release (DR/EC) 81 mg PO DAILY sodium bicarbonate 650 mg Tablet 1,950 mg PO BID torsemide 20 mg tablet 20 mg PO QAM calcitriol 0.5 mcg capsule 0.5 mcg PO DAILY allopurinol 100 mg tablet 100 mg PO QAM Lokelma 5 MG packet 10 mg PO QAM amlodipine 10 MG tablet 10 mg PO QPM torsemide 20 MG tablet 60 mg PO QPM Referrals Referrals: Taylor Faustin DO [Primary Care Provider] - Discharge Problem: Chest pain Qualifiers: Chest pain type: unspecified Qualified Code(s): R07.9 - Chest pain, unspecified
[2025-07-19 16:52] LABS: Hematocrit (blood only) 26.3 % (42.0-52.0); Hemoglobin 8.9 g/dL (14.0-18.0); Immature Granulocytes # (auto) 0.03 K/uL (0.01-0.20); Immature Granulocytes % (auto) 0.4 %; Mean Corpuscular Hemoglobin 28.4 pg (25.0-34.0); Mean Corpuscular Volume 84.0 fL (80.0-100.0); Platelet Count 179 K/uL (130-400); RDW Standard Deviation 39.7 fL (36.4-46.3); Red Blood Count 3.13 M/uL (4.70-6.10); White Blood Count 7.94 K/ul (4.8-10.8)
--- NOTE | 2025-07-19 17:07 | XRay Report ---
Clinical History: Chest pain and hypertension Technique: A frontal view of the chest was obtained Comparison is made to the prior examination dated 11/14/2024 Findings: There are no confluent pulmonary infiltrates. The heart is mildly enlarged. No pleural effusion or pneumothorax is seen. There is suspected mild pulmonary edema No fracture is noted. No foreign body is seen Impression: Mild cardiomegaly and mild pulmonary edema ACT 112: Positive. There are findings on this exam that require communication between the performing entity and the patient following Patient Test Result Information Act ([place] ACT 112) guidelines. Electronically signed by Jude Kaufman 07-19-2025 5:07 PM
[2025-07-19 17:15] LABS: Alanine Aminotransferase 9.0 U/L (7-52); Albumin Globulin Ratio 1.1 (0.9-2); Albumin Level 3.3 gm/dl (3.4-5.0); Alkaline Phosphatase 49.0 U/L (34-104); Anion Gap 15.0 (3-11); Bilirubin,Total 0.4 mg/dl (0.2-1.0); Blood Urea Nitrogen 100.0 mg/dl (6-23); Calcium 7.6 mg/dl (8.6-10.3); Carbon Dioxide 17.0 mmol/L (21-32); Chloride 106.0 mmol/L (98-107); Creatinine Clr Calc Pharmacy 13.8 ml/min; Globulin 3.0 gm/dl (2.5-4.0); Glucose 85.0 mg/dl (70-99(Fasting)); Lipase 35.0 U/L (11-82); Magnesium 1.7 mg/dl (1.7-2.4); Potassium 4.0 mmol/L (3.5-5.1); Sodium 138.0 mmol/L (136-145); Total Protein 6.3 gm/dl (6.0-8.3)
[2025-07-19 17:20] LABS: INR 1.0 (0.9-1.1); Prothrombin Time 10.8 Seconds (9.0-12.0)
[2025-07-19 17:36] LABS: Thyroid Stimulating Hormone 3.145 uIu/ml (0.300-4.500)
[2025-07-19 17:46] LABS: Appearance Urine Clear (Clear); Bacteria Urine Automated None Seen (None Seen); Cast Urine Automated 0-2 /lpf (0-2); Epithelial Cell Urine Auto 0-2 /hpf (0-2); Glucose Urine UA Trace (Negative); RBC Urine Automated 0-2 /hpf (0-2); WBC Urine Automated 0-5 /hpf (0-5)
[2025-07-19] MEDS: LABETALOL HCL IV 5 MG/ML 20ML IV STA (17:57)
--- NOTE | 2025-07-19 18:31 | History & Physical Report ---
Date of Service July 19, 2025 Assessment & Plan (1) Hypertensive emergency: Plan: History of high blood pressure and has been on lisinopril 5 mg with kidney transplant and intestinal disease Blood pressure noted to be very high at home with systolic more than 200 and diastolic more than 100 Has a headache without any other symptoms of numbness or tingling in the extremities or any visual disturbances Gunpowder some chest pressure but no definite chest pain, palpitation or shortness of breath Received labetalol intravenously in the emergency room and the blood pressure seems to be improving Will continue lisinopril at the same dose and add Lopressor to control the blood pressure (2) Headache: Plan: Complaint headache likely secondary to high blood pressure/hypertensive urgency No other associated neurological symptoms Headache has been improving Chest pressure with the high blood pressure Improved and EKG and troponins are unremarkable Bedside ultrasound was done did show small pericardial effusion as before Will get a formal echo tomorrow (3) End stage renal disease: Plan: End-stage renal disease not on any dialysis yet with history of pancreatic and renal transplant Technical Administrator planning for peritoneal dialysis down the line BUN is 100 and creatinine 6.81 today which 173/4.31 in February of this year 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 consult 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 (4) History of pancreas transplant: (5) History of kidney transplant: (6) Immunosuppressed status: Plan: Pancreatic and renal transplant Continue current Antineoplastic medications (7) Diabetes mellitus type 1 with complications: Plan: History of diabetes with complications including Charcot joint of right foot Following pancreatic transplant he does not need any antidiabetic medications (8) Anemia: Plan: Anemia of chronic kidney disease Hemoglobin 8.9 DVT prophylaxis Subcu heparin CODE STATUS Full History of Present Illness Chief Complaint: Headache with high blood pressure than just pressure at home Primary Care Provider: Taylor Faustin DO Is a 40-year-old female significant past medical history of end-stage renal disease status post simultaneous pancreas and kidney transplant in 2000 at [facility], hypertension, diabetes apparently has been complaining of high blood pressure noted at home with systolic around 200 and diastolic more than 100 and he was feeling tired with headache and some chest pressure. He denies any chest pain as such and does not have any shortness of breath associated with. Denies any abdominal pain and he does have nausea vomiting most of the time but not anything out of usual. Denies any swelling of the legs and does not have any problem with urinary or bowel habit. His blood pressure noted to be at 182/93 in the emergency room and received intravenous labetalol and the blood pressure went down to 170s or below and he got better with the symptoms as well. He was admitted to [facility] telemetry unit for continuation of care. Allergies Allergy/AdvReac Type Severity Reaction Status Date / Time NSAIDS (Non-Steroidal AdvReac Unknown RENAL Verified 03/18/25 09:06 Anti-Inflamma FAILURE Home Medications Medication Instructions Recorded Confirmed Type mycophenolate sodium 180 mg 720 mg PO BID 01/24/24 07/19/25 History tablet,delayed release tacrolimus 1 mg capsule, 4 mg PO BID 01/24/24 07/19/25 History immediate-release aspirin 81 mg tablet,delayed 81 mg PO DAILY 09/13/24 07/19/25 History release sodium bicarbonate 650 mg tablet 1,950 mg PO BID 09/13/24 07/19/25 History torsemide 20 mg tablet 20 mg PO QAM 11/14/24 07/19/25 History calcitriol 0.5 mcg capsule 0.5 mcg PO DAILY 03/18/25 07/19/25 History Lokelma 10 mg PO QAM 07/19/25 07/19/25 History allopurinol 100 mg tablet 100 mg PO QAM 07/19/25 07/19/25 History amlodipine 10 mg PO QPM 07/19/25 07/19/25 History torsemide 60 mg PO QPM 07/19/25 07/19/25 History Past Med/Surg History Problem List (Updated 04/02/25 @ 00:05 by Background Daemon) Kidney disease with fluid retention Edema (Acute) Scrotal edema Hypertensive emergency (Acute) Acute kidney injury superimposed on chronic kidney disease (Acute) History of pancreas transplant (Acute) History of kidney transplant (Acute) SIRS (systemic inflammatory response syndrome) (Acute) Immunosuppressed status (Acute) Influenza A (Acute) Hyponatremia Influenza Pneumonia Recurrent UTI Incomplete bladder emptying Hyperkalemia Complicated UTI (urinary tract infection) Acute UTI (Acute) COVID-19 (Acute) Acute hyperkalemia (Acute) At risk for fertility problems Hypertension Chronic wound of extremity Erectile dysfunction Anemia DVT prophylaxis Immunosuppressed status Pancreas transplanted January 2021-[facility] Kidney transplanted (Acute) January 2021-[facility] Acute UTI (Acute) Pneumonia of both lower lobes Hypoxia (Acute) Acute dyspnea (Acute) Cough (Acute) Fever (Acute) Fluid overload (Acute) Acute respiratory failure UTI (urinary tract infection) Hypertensive urgency Aspiration pneumonia Hypoxia Sepsis (Acute) Pneumonia (Acute) End stage renal disease (Acute) DVT prophylaxis Acute respiratory failure with hypoxia Pneumonitis ESRD on dialysis Bacteremia due to Staphylococcus aureus MSSA bacteremia 10/05/19 treated with cefazolin x 6 wks Anemia in ESRD (end-stage renal disease) (Chronic) Prolonged QT interval (Chronic) TIA (transient ischemic attack) (Chronic) Nephrotic syndrome due to diabetes mellitus (Chronic) Fatty liver (Chronic) Charcot foot due to diabetes mellitus (Chronic) Diabetic retinopathy (Chronic) 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) Medical History CKD (chronic kidney disease) stage 4, GFR 15-29 ml/min Peritoneal dialysis catheter in place REMOVED 11/10/19 History of peritoneal dialysis Surgical History S/P eye surgery Family History Mother Hypertension Grandfather (Maternal) Diabetes Grandmother (Maternal) Diabetes Grandmother (Paternal) Diabetes Social History Smoking Status: Former smoker Tobacco Type: Cigarettes Cigarettes Per Day: 10; Second Hand Exposure: No; Do You Dip or Chew Tobacco: No; Hx Alcohol Use: No Hx Substance Use: No Preferred Language: Arabic Communication Ability: Effective Visual Impairment: Limited Supervisor [employer] Required: No Beliefs That Will Affect Care: None marital status: Single Current Living Situation: Alone Current Living Situation Comment: lives at home alone current occupational status: employed Feels Safe at Home: Yes Assistive Devices: None Review of Systems Review of Systems: All systems reviewed and are unremarkable except as noted below Physical Exam Physical Exam: Lying in bed without any apparent distress Constitutional: well developed, well nourished and + ill appearing Eyes: PERRL, conjunctivae normal, anicteric sclerae ENMT: external ear and nose normal, oropharynx normal Neck: trachea midline, no thyromegaly Respiratory: no respiratory distress Auscultation: lungs clear to auscultation bilaterally Cardiovascular: Rate/Rhythm: regular rate and regular rhythm; not tachycardic Heart Sounds: normal S1 and normal S2; no murmur Extremities: no edema Gastrointestinal (Abdomen): Inspection/Auscultation: normal bowel sounds; abd omen not distended Percussion/Palpation: abdomen soft; abdomen nontender Musculoskeletal: No acute arthritis involving any joint but he has Charcot joint involving the right ankle Neurologic: normal touch/pain/proprioception and moves all extremities; no focal motor deficits Lymphatic: no cervical or axillary lymphadenopathy Results & Data Results & Data Vital Signs (Past 12 Hours) Vital Signs Temp Pulse Pulse Resp BP BP Pulse Ox 07/19/25 17:57 78 182/93 H 07/19/25 17:57 78 16 182/93 H 96 07/19/25 17:00 81 20 186/98 H 96 07/19/25 16:44 77 07/19/25 16:14 37.0 C 88 20 189/91 H 97 O2 Del Method 07/19/25 17:57 07/19/25 17:57 Room Air 07/19/25 17:00 Room Air 07/19/25 16:44 07/19/25 16:14 Room Air Laboratory Results Short CBC 07/19/25 Range/Units 16:30 WBC 7.94 (4.8-10.8) K/ul Hgb 8.9 L (14.0-18.0) g/dL Hct 26.3 L (42.0-52.0) % Plt Count 179 (130-400) K/uL BMP 07/19/25 16:30 Sodium 138 Potassium 4.0 Chloride 106 Carbon Dioxide 17 L BUN 100 H Creatinine 6.81 H* Glucose 85 Calcium 7.6 L Liver Function 07/19/25 Range/Units 16:30 Total Bilirubin 0.4 (0.2-1.0) mg/dl AST 11 L (13-39) U/L ALT 9 (7-52) U/L Alkaline Phosphatase 49 (34-104) U/L Albumin 3.3 L (3.4-5.0) gm/dl Urine 07/19/25 Range/Units 17:25 Urine Color Yellow Urine Appearance Clear (Clear) Urine pH 6.0 (4.5-7.5) Ur Specific [place] 1.015 (1.000-1.030) Urine Protein 4+ H (Negative) Urine Glucose (UA) Trace H (Negative) Code Status & VTE Plan VTE Prophylaxis Plan VTE Prophylaxis will be ordered: Yes
[2025-07-19] MEDS: METOPROLOL TARTRATE 1 MG/ML VIAL IV PRN (20:25)
[2025-07-19] MEDS: SODIUM BICARBONATE 650 MG TAB PO SCH (21:30)
[2025-07-19] MEDS: MYCOPHENOLATE SODIUM 180 MG TAB PO SCH (21:30)
[2025-07-19] MEDS: TACROLIMUS 1 MG CAP PO SCH (21:30)
[2025-07-19] MEDS: TORSEMIDE 20 MG TAB PO SCH (21:30)
[2025-07-19] MEDS: ACETAMINOPHEN 500 MG TAB PO PRN (21:30)
[2025-07-19] MEDS: METOPROLOL TARTRATE 25 MG TAB PO SCH (21:31)
[2025-07-20 08:08] LABS: Hematocrit (blood only) 27.5 % (42.0-52.0); Hemoglobin 9.0 g/dL (14.0-18.0); Immature Granulocytes # (auto) 0.02 K/uL (0.01-0.20); Immature Granulocytes % (auto) 0.4 %; Mean Corpuscular Hemoglobin 27.5 pg (25.0-34.0); Mean Corpuscular Volume 84.1 fL (80.0-100.0); Platelet Count 176 K/uL (130-400); RDW Standard Deviation 40.4 fL (36.4-46.3); Red Blood Count 3.27 M/uL (4.70-6.10); White Blood Count 4.86 K/ul (4.8-10.8)
[2025-07-20] MEDS: CALCITRIOL 0.25 MCG CAPSULE PO SCH (08:18)
[2025-07-20] MEDS: ASPIRIN 81 MG ECTAB PO SCH (08:19)
[2025-07-20] MEDS: SODIUM ZIRCONIUM CYCLOSILICATE 10 GM PACKET PO SCH (08:19)
[2025-07-20] MEDS: TORSEMIDE 20 MG TAB PO SCH ×2 (08:19→10:56)
[2025-07-20 08:28] LABS: Anion Gap 13.0 (3-11); Blood Urea Nitrogen 102.0 mg/dl (6-23); Calcium 7.8 mg/dl (8.6-10.3); Carbon Dioxide 17.0 mmol/L (21-32); Chloride 108.0 mmol/L (98-107); Creatinine Clr Calc Pharmacy 13.8 ml/min; Glucose 85.0 mg/dl (70-99(Fasting)); Magnesium 1.7 mg/dl (1.7-2.4); Potassium 4.5 mmol/L (3.5-5.1); Sodium 138.0 mmol/L (136-145)
--- NOTE | 2025-07-20 10:32 | Electrocardiogram Report ---
Test Reason : Blood Pressure : */* mmHG Vent. Rate : 80 BPM Atrial Rate : 80 BPM P-R Int : 132 ms QRS Dur : 88 ms QT Int : 428 ms P-R-T Axes : 34 -4 65 degrees QTcB Int : 493 ms Normal sinus rhythm Prolonged QT Poor R wave progression, consider anterior NM vs. lead placement vs. LVH Abnormal ECG Confirmed by Theo Lara ([id number]) on 07/20/2025 10:32:52 AM Referred By: Confirmed By: Theo Lara
--- NOTE | 2025-07-20 15:21 | Nephrology Consultation ---
Date of Consultation July 20, 2025 Assessment & Plan (1) Acute kidney injury superimposed on chronic kidney disease: patient with the acute kidney injury on CKD in setting of hypertensive urgency. 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 Creatinine of 6.8 today. Patient is making some urine. Electrolytes are stable. He has metabolic acidosis. Even uncontrolled hypertension will reduce his sodium bicarbonate to 1300 mg twice daily. No indication for dialysis today. If his blood pressure is controlled, patient might be discharged to continue dialysis initiation as an outpatient. - Monitor input output and daily standing weight if able (2) Hypertensive emergency: patient admitted with systolic blood pressure in the 200s. We are increasing his torsemide 80 mg twice daily. We are reducing his sodium bicarbonate supplements as above. Target systolic 140-150. (3) History of pancreas transplant: Patient with a history of kidney pancreas transplant. His pancreas is working well but kidney is failing. He will continue current immunosuppression: Prograf 4 mg q.12 and mycophenolate 720 mg twice daily History of Present Illness Reason for Consultation: worsening renal function, hypertensive urgency Requesting Physician: Doug Mercado MD Attending Physician: Doug Mercado MD History of Present Illness 40-year-old with a history of ESRD due to type 1 diabetes status post kidney pancreas transplant in 2020 at [facility], checked out foot, hyperlipidemia, neurogenic bladder, hypertension and TIA who was admitted with chest pain and uncontrolled hypertension. Systolic blood pressure was in the 200s at home. His transplant kidneys failing with recent creatinine of 6.3 outpatient but has increased to 6.8 on admission. Patient also reports leg swelling, orthopnea and exertional dyspnea. On admission chest x-ray showed pulmonary edema. He is on torsemide 20 mg in the morning and 60 mg in the evening. Patient is also on Lokelma for hyperkalemia and high doses of sodium bicarbonate. Blood pressures improved with systolic now in the 150s. Patient denies any chest pain now. He has an old left upper arm AV fistula. Patient was being planned for outpatient dialysis at [facility] and then transitioned to home hemo at [facility]. Allergies Allergy/AdvReac Type Severity Reaction Status Date / Time NSAIDS (Non-Steroidal AdvReac Unknown RENAL Verified 03/18/25 09:06 Anti-Inflamma FAILURE Home Medications Medication Instructions Recorded Confirmed Type mycophenolate sodium 180 mg 720 mg PO BID 01/24/24 07/19/25 History tablet,delayed release tacrolimus 1 mg capsule, 4 mg PO BID 01/24/24 07/19/25 History immediate-release aspirin 81 mg tablet,delayed 81 mg PO DAILY 09/13/24 07/19/25 History release sodium bicarbonate 650 mg tablet 1,950 mg PO BID 09/13/24 07/19/25 History torsemide 20 mg tablet 20 mg PO QAM 11/14/24 07/19/25 History calcitriol 0.5 mcg capsule 0.5 mcg PO DAILY 03/18/25 07/19/25 History Lokelma 10 mg PO QAM 07/19/25 07/19/25 History allopurinol 100 mg tablet 100 mg PO QAM 07/19/25 07/19/25 History amlodipine 10 mg PO QPM 07/19/25 07/19/25 History torsemide 60 mg PO QPM 07/19/25 07/19/25 History Patient History Medical History CKD (chronic kidney disease) stage 4, GFR 15-29 ml/min Peritoneal dialysis catheter in place REMOVED 11/10/19 History of peritoneal dialysis Surgical History S/P eye surgery Family History Mother Hypertension Grandfather (Maternal) Diabetes Grandmother (Maternal) Diabetes Grandmother (Paternal) Diabetes Social History Smoking Status: Former smoker Tobacco Type: Cigarettes Cigarettes Per Day: 10; Second Hand Exposure: No; Do You Dip or Chew Tobacco: No; Hx Alcohol Use: No Hx Substance Use: No Preferred Language: Czech Communication Ability: Effective Visual Impairment: Limited Electric Arc Welder Required: No Beliefs That Will Affect Care: None marital status: Single Current Living Situation: Alone Current Living Situation Comment: lives at home alone current occupational status: employed Other Information That Helps Us Care for You: No Feels Safe at Home: Yes Safety Concerns: Feels Safe At This Time Assistive Devices: Glasses Review of Systems 2 Review of Systems: All other systems were reviewed and negative except as noted in HPI Physical Exam 2 Physical Exam: General exam: Appears comfortable, no acute distress HEENT: Pupils are equal and reactive to light Neck: No JVD, neck is supple trachea is midline Respiratory system: Crackles bilaterally. Gastrointestinal: Abdomen is soft, non distended, non tender, bowel sounds are present CVS: Regular rate and rhythm. No murmurs, rubs or gallops Musculoskeletal: No joint or muscle tenderness Extremities: Non tender, 1+ edema, peripheral pulses are present Neuro: Oriented, no tremors, no focal neurological deficits Skin: No rashes Results & Data Vital Signs (Past 12 Hours) Vital Signs Temp Pulse Pulse Resp BP Pulse Ox O2 Del Method 07/20/25 11:31 37.0 C 63 18 152/73 H 99 Room Air 07/20/25 10:15 69 07/20/25 07:50 36.5 C 63 18 174/86 H 96 Room Air Laboratory Results 07/20/25 07:56 07/19/25 07/20/25 16:30 07:56 WBC 7.94 4.86 RBC 3.13 L 3.27 L MCV 84.0 84.1 MCH 28.4 27.5 MCHC 33.8 32.7 RDW Std Deviation 39.7 40.4 RDW Coeff of Ralph 13.2 13.3 Plt Count 179 176 MPV 10.4 10.2 Phosphorus 8.5 H 8.9 H Albumin 3.3 L
--- NOTE | 2025-07-20 15:47 | XCELERA ---
[id number]
--- NOTE | 2025-07-20 17:45 | Hospitalist Progress Note ---
Date of Service July 20, 2025 delayed entry date of service noted above Assessment & Plan (1) Hypertensive emergency: Plan: History of high blood pressure and has been on lisinopril 5 mg with kidney transplant and intestinal disease Blood pressure noted to be very high at home with systolic more than 200 and diastolic more than 100 Has a headache without any other symptoms of numbness or tingling in the extremities or any visual disturbances [place] some chest pressure but no definite chest pain, palpitation or shortness of breath Received labetalol intravenously in the emergency room and the blood pressure seems to be improving Will continue lisinopril at the same dose and add Lopressor to control the blood pressure 07/20 Metoprolol started monitor BP CT head: no bleed (2) Headache: Plan: Complaint headache likely secondary to high blood pressure/hypertensive urgency No other associated neurological symptoms Headache has been improving 07/20 per above Chest pressure with the high blood pressure Improved and EKG and troponins are unremarkable Bedside ultrasound was done did show small pericardial effusion as before echo noted -- improving (3) End stage renal disease: Plan: End-stage renal disease not on any dialysis yet with history of pancreatic and renal transplant Appraisal Specialist planning for peritoneal dialysis down the line BUN is 100 and creatinine 6.81 today which 173/4.31 in February of this year -- Appraisal Specialist consulted (4) History of pancreas transplant: (5) History of kidney transplant: (6) Immunosuppressed status: Plan: Pancreatic and renal transplant Continue current Antineoplastic medications (7) Diabetes mellitus type 1 with complications: Plan: History of diabetes with complications including Charcot joint of right foot Following pancreatic transplant he does not need any antidiabetic medications (8) Anemia: Plan: Anemia of chronic kidney disease Hemoglobin 8.9 DVT prophylaxis Subcu heparin CODE STATUS Full Disposition admitted to [facility] at home Admission and Anticipated Discharge Date Admission Date: July 19, 2025 Subjective seen resting in bed, comfortable has a mild headache, no nausea/vomiting, dizziness, focal neuro symptoms no chest pain, dyspnea, palpitations, dizziness no other new symptoms Review of Systems Review of Systems: all noted and negative except for above Physical Exam Physical Exam: General- oriented x 3, not in distress, speaks in sentences with no effort or accessory muscle use Eyes- anicteric Neck- no JVD Lungs- clear breath sounds bilaterally, no rales/wheezes Heart- normal rate, regular rhythm; no murmurs Abdomen- normal bowel sounds, nondistended, soft, nontender Extremities- no pretibial edema, no calf tenderness R arm:fistula in place Neuro- alert, oriented x 3; no gross focal neurologic deficits Skin- warm & dry Results & Data Results & Data Vital Signs (Past 12 Hours) Vital Signs Temp Pulse Pulse Resp BP Pulse Ox O2 Del Method 07/20/25 15:29 60 07/20/25 15:27 36.9 C 59 L 18 155/72 H 98 Room Air 07/20/25 11:31 37.0 C 63 18 152/73 H 99 Room Air 07/20/25 10:15 69 07/20/25 07:50 36.5 C 63 18 174/86 H 96 Room Air all noted and reviewed including below
--- NOTE | 2025-07-20 18:57 | CT Scan Report ---
CT HEAD: HISTORY: Headaches TECHNIQUE: Noncontrast CT examination of the head is performed. Coronal and sagittal reformats were created. COMPARISON: Brain CT July 03, 2024 FINDINGS: There is no evidence of intracranial hemorrhage, focal mass effect or midline shift. No fluid collection is identified. The ventricular system is midline and symmetric. No evidence of acute major vascular territory infarction. As before there are subcortical and periventricular white matter hypodensities that are rather prominent for patient's stated age. No calvarial fracture is identified. The paranasal sinuses and mastoids are well aerated. IMPRESSION: No acute intracranial process identified. As before there are subcortical and periventricular white matter hypodensities that are rather prominent for patient's stated age. While these may represent chronic microvascular ischemic changes, other considerations in this age group may include chronic migraines, hypertensive microangiopathy as well as demyelinating/autoimmune in process. Electronically signed by Elliott Moore 07-20-2025 6:55 PM
[2025-07-20] MEDS: SODIUM BICARBONATE 650 MG TAB PO SCH (20:59)
--- NOTE | 2025-07-21 00:36 | Communication Note ---
Date of Service: July 21, 2025
[2025-07-21] MEDS: NITROGLYCERIN SL 0.4 MG/TAB TAB SL STA (00:40)
[2025-07-21] MEDS ORDERED: PROMETHAZINE 6.25 MG/50.25 ML BAG IV PRN (00:51)
[2025-07-21] MEDS: ACETAMINOPHEN 1,000 MG/100 ML VIAL IV STA (01:26)
[2025-07-21 01:36] LABS: Partial Thromboplastin Time 28 Seconds (21-31)
--- NOTE | 2025-07-21 08:24 | Electrocardiogram Report ---
Test Reason : Blood Pressure : */* mmHG Vent. Rate : 62 BPM Atrial Rate : 62 BPM P-R Int : 142 ms QRS Dur : 92 ms QT Int : 490 ms P-R-T Axes : 17 13 69 degrees QTcB Int : 497 ms Normal sinus rhythm QTcB >= 480 msec Abnormal ECG When compared with ECG of 19-Jul-2025 16:24, No significant change was found Confirmed by Theo Lara [id number]) on 07/21/2025 8:24:23 AM Referred By: REFERRED SELF Confirmed By: Theo Lara
--- NOTE | 2025-07-21 10:33 | Nephrology Progress Note ---
Date of Service July 21, 2025 Assessment & Plan (1) Acute kidney injury superimposed on chronic kidney disease: Plan: patient with the acute kidney injury on CKD in setting of hypertensive urgency. 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 Patient is making some urine. Electrolytes are stable. He has metabolic acidosis. Given uncontrolled hypertension will continue reduced sodium bicarbonate to 1300 mg twice daily. No indication for dialysis today. If his blood pressure is controlled and no further episodes of chest pain or orthopnea, patient might be discharged to continue dialysis initiation as an outpatient. -Monitor daily for dialysis need - Monitor input output and daily standing weight if able (2) Hypertensive emergency: Plan: patient admitted with systolic blood pressure in the 200s. We are starting hydralazine 25 mg twice daily. Target systolic 140. (3) History of pancreas transplant: Plan: Patient with a history of kidney pancreas transplant. His pancreas is working well but kidney is failing. He will continue current immunosuppression: Prograf 4 mg q.12 and mycophenolate 720 mg twice daily Plan Discussed plan with Dr. Mercado who agrees with BP control and possibly discharge if stable to start dialysis outpt Admission and Anticipated Discharge Date Admission Date: July 19, 2025 Subjective Seen for failing renal transplant. He had episode of chest last night for about 2hrs. EKG was sinus rhythm. No SOB now. He making more urine with the torsemide. No leg swelling. BP still high Review of Systems 2 Review of Systems: All other systems were reviewed and negative except as noted in HPI Physical Exam 2 Physical Exam: General exam: Appears comfortable, no acute distress HEENT: Pupils are equal and reactive to light Neck: No JVD, neck is supple trachea is midline Respiratory system: Crackles bilaterally. Gastrointestinal: Abdomen is soft, non distended, non tender, bowel sounds are present CVS: Regular rate and rhythm. Systolic apical murmur Musculoskeletal: No joint or muscle tenderness Extremities: Non tender, 1+ edema, peripheral pulses are present Neuro: Oriented, no tremors, no focal neurological deficits Skin: No rashes Results & Data Vital Signs (Past 12 Hours) Vital Signs Temp Pulse Resp BP Pulse Ox O2 Del Method 07/21/25 07:36 36.6 C 57 L 18 161/79 H 98 Room Air 07/21/25 03:53 36.6 C 58 L 16 144/77 H 97 Room Air 07/21/25 00:46 62 18 124/64 97 Room Air 07/21/25 00:29 64 18 164/80 H 97 Room Air 07/20/25 23:07 36.9 C 61 14 177/88 H 97 Room Air Laboratory Results 07/20/25 07:56
[2025-07-21 11:55] LABS: Anion Gap 13.0 (3-11); Blood Urea Nitrogen 111.0 mg/dl (6-23); Calcium 7.5 mg/dl (8.6-10.3); Carbon Dioxide 18.0 mmol/L (21-32); Chloride 104.0 mmol/L (98-107); Creatinine Clr Calc Pharmacy 12.0 ml/min; Glucose 110.0 mg/dl (70-99(Fasting)); Potassium 4.2 mmol/L (3.5-5.1); Sodium 135.0 mmol/L (136-145)
--- NOTE | 2025-07-21 13:22 | Hospitalist Progress Note ---
Date of Service July 21, 2025 Assessment & Plan (1) Hypertensive emergency: Plan: History of high blood pressure and has been on lisinopril 5 mg with kidney transplant and intestinal disease Blood pressure noted to be very high at home with systolic more than 200 and diastolic more than 100 Has a headache without any other symptoms of numbness or tingling in the extremities or any visual disturbances [place] some chest pressure but no definite chest pain, palpitation or shortness of breath Received labetalol intravenously in the emergency room and the blood pressure seems to be improving Will continue lisinopril at the same dose and add Lopressor to control the blood pressure 07/20 Metoprolol started monitor BP CT head: no bleed 07/21 BP still uncontrolled Hydralazine added continue to monitor closely (2) Headache: Plan: Complaint headache likely secondary to high blood pressure/hypertensive urgency No other associated neurological symptoms Headache has been improving 07/20 per above 07/21 resolved Chest pressure with the high blood pressure Improved and EKG and troponins are unremarkable Bedside ultrasound was done did show small pericardial effusion as before echo noted -- improving 07/21 recurred yesterday mostly orthopnea? 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 planning for peritoneal dialysis down the line BUN is 100 and creatinine 6.81 today which 173/4.31 in February of this year -- Wire Drawing Machine Tender consulted 07/21 crea continues to trend up Torsemide increased Bicarb decreased monitor I&O closely discussed with Nephro if with continued worsening, may need HD (4) History of pancreas transplant: (5) History of kidney transplant: (6) Immunosuppressed status: Plan: Pancreatic and renal transplant Continue current Antineoplastic medications (7) Diabetes mellitus type 1 with complications: Plan: History of diabetes with complications including Charcot joint of right foot Following pancreatic transplant he does not need any antidiabetic medications (8) Anemia: Plan: Anemia of chronic kidney disease Hemoglobin 8.9 DVT prophylaxis Subcu heparin CODE STATUS Full Disposition admitted to [facility] at home Admission and Anticipated Discharge Date Admission Date: July 19, 2025 Subjective awakened by chest pain and shortness of breath overnight BP elevated EKG no signs of acute ischemia trop negative Nitro given- provided some relief with improvement sitting up in bed, comfortable reports mild chest pressure/shortness of breath when laying flat minimal discomfort/strain over central chest region with inspiration no other new symptoms Review of Systems Review of Systems: all noted and negative except for above Physical Exam Physical Exam: General- oriented x 3, not in distress, speaks in sentences with no effort or accessory muscle use Eyes- anicteric Neck- no JVD Lungs- clear breath sounds BL Heart- normal rate, regular rhythm; no murmurs Abdomen- normal bowel sounds, nondistended, soft, nontender Extremities- no pretibial edema, no calf tenderness Neuro- alert, oriented x 3; no gross focal neurologic deficits Skin- warm & dry Results & Data Results & Data Vital Signs (Past 12 Hours) Vital Signs Temp Pulse Pulse Resp BP Pulse Ox O2 Del Method 07/21/25 11:54 36.9 C 61 18 152/79 H 99 Room Air 07/21/25 11:12 36.4 C L 66 18 161/85 H 99 Room Air 07/21/25 10:30 67 162/76 H 07/21/25 08:00 57 L 07/21/25 07:36 36.6 C 57 L 18 161/79 H 98 Room Air 07/21/25 03:53 36.6 C 58 L 16 144/77 H 97 Room Air all noted and reviewed including below
[2025-07-21] MEDS ORDERED: SODIUM CHLORIDE 0.9% 1,000 ML IV PRN (14:27)
[2025-07-21] MEDS: HEPARIN SOD (PORCINE) 1000 UNIT/ML IV ONE (16:13)
[2025-07-21] MEDS: HEPARIN SOD (PORCINE) 1000 UNIT/ML IV SCH (16:55)
[2025-07-21 19:01] LABS: Hep B Surface Ag with confirm Negative (Negative)
[2025-07-22] MEDS ORDERED: SODIUM CHLORIDE 0.9% 1,000 ML IV PRN (09:27)
--- NOTE | 2025-07-22 10:32 | Nephrology Progress Note ---
Date of Service July 22, 2025 Assessment & Plan (1) Acute kidney injury superimposed on chronic kidney disease: Plan: patient with the acute kidney injury on CKD in setting of hypertensive urgency. 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 Patient is making some urine. Electrolytes are stable. patient started dialysis 07/21/25. Will dialyze him today for 2.5hrs. Stop bicarb. marine service manager to refer patient to [facility]. - Monitor input output and daily standing weight if able (2) Hypertensive emergency: Plan: patient admitted with systolic blood pressure in the 200s. Continue hydralazine 25 mg twice daily. Target systolic 140. (3) History of pancreas transplant: Plan: Patient with a history of kidney pancreas transplant. His pancreas is working well but kidney is failing. He will continue current immunosuppression: Prograf 4 mg q.12 and mycophenolate 720 mg twice daily Plan Total of 50minutes spent on chart review and patient evaluation Admission and Anticipated Discharge Date Admission Date: July 19, 2025 Subjective Seen for ESRD. He feels better after HD yesterday. no SOB or leg swelling. BP is better. Review of Systems 2 Review of Systems: All other systems were reviewed and negative except as noted in HPI Physical Exam 2 Physical Exam: General exam: Appears comfortable, no acute distress HEENT: Pupils are equal and reactive to light Neck: No JVD, neck is supple trachea is midline Respiratory system: Crackles bilaterally. Gastrointestinal: Abdomen is soft, non distended, non tender, bowel sounds are present CVS: Regular rate and rhythm. Systolic apical murmur Musculoskeletal: No joint or muscle tenderness Extremities: Non tender, no edema, peripheral pulses are present Neuro: Oriented, no tremors, no focal neurological deficits Skin: No rashes Results & Data Vital Signs (Past 12 Hours) Vital Signs Temp Pulse Pulse Resp BP Pulse Ox O2 Del Method 07/22/25 08:00 60 07/22/25 07:47 36.6 C 64 18 139/78 97 Room Air 07/22/25 03:25 37.1 C 67 18 156/81 H 98 Room Air 07/21/25 23:23 37 C 64 18 132/63 97 Room Air Laboratory Results 07/21/25 11:20
[2025-07-22] MEDS ORDERED: LIDOCAINE 4% CREAM 15 GM TUBE EXT PRN (12:28)
[2025-07-22] MEDS: HEPARIN SOD (PORCINE) 1000 UNIT/ML IV ONE (13:41)
[2025-07-22] MEDS: HEPARIN SOD (PORCINE) 1000 UNIT/ML IV SCH (13:41)
--- NOTE | 2025-07-22 14:18 | Hospitalist Progress Note ---
Date of Service July 22, 2025 Assessment & Plan (1) Hypertensive emergency: Plan: History of high blood pressure and has been on lisinopril 5 mg with kidney transplant and intestinal disease Blood pressure noted to be very high at home with systolic more than 200 and diastolic more than 100 Has a headache without any other symptoms of numbness or tingling in the extremities or any visual disturbances [place] some chest pressure but no definite chest pain, palpitation or shortness of breath Received labetalol intravenously in the emergency room and the blood pressure seems to be improving Will continue lisinopril at the same dose and add Lopressor to control the blood pressure 07/20 Metoprolol started monitor BP CT head: no bleed 07/21 BP still uncontrolled Hydralazine added continue to monitor closely 07/22 continue Metoprolol, Hydralazine monitor closely (2) Headache: Plan: Complaint headache likely secondary to high blood pressure/hypertensive urgency No other associated neurological symptoms Headache has been improving 07/20 per above 07/21 resolved Chest pressure with the high blood pressure Improved and EKG and troponins are unremarkable Bedside ultrasound was done did show small pericardial effusion as before echo noted -- improving 07/21 recurred yesterday mostly orthopnea? ACS ruled out, trop negative x 2, EKG ok Unlikely pericarditis, CRP normal, ESD elevated, no ekg changes Torsemide increased, monitor i&o closely 07/22 resolved (3) End stage renal disease: Plan: End-stage renal disease not on any dialysis yet with history of pancreatic and renal transplant Mass Spectrometry Manager planning for peritoneal dialysis down the line BUN is 100 and creatinine 6.81 today which 173/4.31 in February of this year -- Mass Spectrometry Manager consulted 07/21 crea continues to trend up Torsemide increased Bicarb decreased monitor I&O closely discussed with Nephro if with continued worsening, may need HD 07/22 s/p HD again today tolerating well labs tomorrow (4) History of pancreas transplant: (5) History of kidney transplant: (6) Immunosuppressed status: Plan: Pancreatic and renal transplant Continue current Antineoplastic medications (7) Diabetes mellitus type 1 with complications: Plan: History of diabetes with complications including Charcot joint of right foot Following pancreatic transplant he does not need any antidiabetic medications (8) Anemia: Plan: Anemia of chronic kidney disease Hemoglobin 8.9 DVT prophylaxis Subcu heparin CODE STATUS Full Disposition admitted to [facility] Admission and Anticipated Discharge Date Admission Date: July 19, 2025 Subjective seen resting in bed, comfortable in good spirits states he feel fine overall chest pain, SOB, headache resolved feels tired but tolerating HD no other new symptoms Review of Systems Review of Systems: all noted and negative except for above Physical Exam Physical Exam: General- oriented x 3, not in distress, speaks in sentences with no effort or accessory muscle use Eyes- anicteric Neck- no JVD Lungs- clear BS BL Heart- normal rate, regular rhythm; no murmurs Abdomen- normal bowel sounds, nondistended, soft, nontender Extremities- no pretibial edema, no calf tenderness Neuro- alert, oriented x 3; no gross focal neurologic deficits Skin- warm & dry Results & Data Results & Data Vital Signs (Past 12 Hours) Vital Signs Temp Pulse Pulse Pulse Resp BP BP 07/22/25 13:59 57 L 07/22/25 13:20 36.5 C 60 145/80 H 07/22/25 13:00 57 L 149/81 H 07/22/25 12:30 55 L 144/79 H 07/22/25 12:00 58 L 142/79 H 07/22/25 11:30 60 139/76 07/22/25 11:00 58 L 148/81 H 07/22/25 10:46 61 142/79 H 07/22/25 10:39 36.6 C 61 07/22/25 08:00 60 07/22/25 07:47 36.6 C 64 18 139/78 07/22/25 03:25 37.1 C 67 18 156/81 H Pulse Ox O2 Del Method 07/22/25 13:59 07/22/25 13:20 07/22/25 13:00 07/22/25 12:30 07/22/25 12:00 07/22/25 11:30 07/22/25 11:00 07/22/25 10:46 07/22/25 10:39 07/22/25 08:00 07/22/25 07:47 97 Room Air 07/22/25 03:25 98 Room Air all noted and reviewed including below
[2025-07-23 06:41] LABS: Hematocrit (blood only) 29.4 % (42.0-52.0); Hemoglobin 9.5 g/dL (14.0-18.0); Immature Granulocytes # (auto) 0.02 K/uL (0.01-0.20); Immature Granulocytes % (auto) 0.3 %; Mean Corpuscular Hemoglobin 27.8 pg (25.0-34.0); Mean Corpuscular Volume 86.0 fL (80.0-100.0); Platelet Count 188 K/uL (130-400); RDW Standard Deviation 41.6 fL (36.4-46.3); Red Blood Count 3.42 M/uL (4.70-6.10); White Blood Count 5.79 K/ul (4.8-10.8)
[2025-07-23 07:26] LABS: Alanine Aminotransferase 8.0 U/L (7-52); Albumin Globulin Ratio 1.3 (0.9-2); Albumin Level 3.2 gm/dl (3.4-5.0); Alkaline Phosphatase 42.0 U/L (34-104); Anion Gap 10.0 (3-11); Bilirubin,Total 0.3 mg/dl (0.2-1.0); Blood Urea Nitrogen 63.0 mg/dl (6-23); Calcium 8.3 mg/dl (8.6-10.3); Carbon Dioxide 25.0 mmol/L (21-32); Chloride 102.0 mmol/L (98-107); Creatinine Clr Calc Pharmacy 17.3 ml/min; Globulin 2.4 gm/dl (2.5-4.0); Glucose 86.0 mg/dl (70-99(Fasting)); Potassium 5.1 mmol/L (3.5-5.1); Sodium 137.0 mmol/L (136-145); Total Protein 5.6 gm/dl (6.0-8.3)
[2025-07-23 07:42] VITALS: RESP 16
[2025-07-23] MEDS ORDERED: SODIUM CHLORIDE 0.9% 1,000 ML IV PRN (08:59)
--- NOTE | 2025-07-23 09:28 | Nephrology Progress Note ---
Date of Service July 23, 2025 Assessment & Plan (1) ESRD on dialysis: Plan: ESRD now on dialysis via [facility] >needs admission for chronic dialysis to [facility]; serologies and XR complete; will be MWF (since they only run MWF) >> if admission paperwork submitted, he could start as OP as soon as on 07/25 -continue dialysis diet; will start FR as well 1.8 L Care coordinated via TText w/ Dr Mercado and Case Mgt re d/c dispo, dialysis plan; we are in agreement (2) Acute kidney injury superimposed on chronic kidney disease: Plan: presented with acute kidney injury on CKD in setting of hypertensive urgency, representing renal allograft failure. Patient is making some urine. Electrolytes are stable. patient started dialysis 07/21/25. Will dialyze him today for 3.5hrs. >Stopped bicarb; do not resume. manager rn case to refer patient to [facility]. - Monitor input output and daily standing weight if able (3) Anemia in ESRD (end-stage renal disease): Plan: gave 10K of epo today; hgb improving; t sat 51% on OP labs 06/26 so no need for venofer (4) Hypertensive emergency: Plan: patient admitted with systolic blood pressure in the 200s. sbp 140-160s past 24 hrs. Target systolic sustained 130-140s and ultimately 120s Continue hydralazine 25, amlodipine, torsemide current doses; low threshold to add ARB/ACEI. (5) History of pancreas transplant: Plan: Patient with a history of kidney pancreas transplant. His pancreas is working well but kidney is failing. >for now, continue current immunosuppression: Prograf 4 mg q.12 and mycophenolate 720 mg twice daily >I will need to review IS plan w/ his OP transplant team now that he is back on dialysis (6) Acute respiratory failure with hypoxia: Plan: resolved (7) History of kidney transplant: Plan: failed now. Admission and Anticipated Discharge Date Admission Date: July 19, 2025 Subjective seen and evaluated on early AM rounds; no sob, no n/v; pain over allograft improved; no chest pain. Review of Systems 2 Review of Systems: All systems reviewed & are unremarkable except as noted in Subjective Physical Exam 2 Constitutional: well developed and well nourished Eyes: EOM intact bilaterally ENMT: Mouth: + dry oral mucous membranes Respiratory: normal respiratory effort Auscultation: + diminished lung sounds Cardiovascular: Rate/Rhythm: regular rate and regular rhythm Extremities: + AV fistula; no edema Gastrointestinal (Abdomen): Inspection/Auscultation: normal bowel sounds P ercussion/Palpation: abdomen soft; abdomen nontender (including LLQ over allograft) Musculoskeletal: Extremities: strength 5/5 throughout Skin: no rashes, warm and dry Neurologic: soria, fluent speech, no tremor Results & Data Vital Signs (Past 12 Hours) Vital Signs Temp Pulse Pulse Resp BP Pulse Ox O2 Del Method 07/23/25 07:41 36.6 C 54 L 16 166/87 H 97 Room Air 07/23/25 05:18 64 07/23/25 03:37 37.0 C 63 18 163/85 H 97 Room Air 07/23/25 00:07 36.6 C 62 18 143/69 H 98 Room Air 07/22/25 22:10 65 Laboratory Results 07/23/25 05:40 07/23/25 05:40
--- NOTE | 2025-07-23 15:29 | Discharge Summary ---
Discharge Summary Date of Service July 23, 2025 Principal Dx & Hospital Course #1 = Principal Diagnosis (1) Hypertensive emergency: History of high blood pressure and has been on lisinopril 5 mg with kidney transplant and intestinal disease Blood pressure noted to be very high at home with systolic more than 200 and diastolic more than 100 Has a headache without any other symptoms of numbness or tingling in the extremities or any visual disturbances [place] some chest pressure but no definite chest pain, palpitation or shortness of breath Received labetalol intravenously in the emergency room and the blood pressure seems to be improving 07/23 Metoprolol tartrate 25 mg twice daily, hydralazine 25 mg p.o. twice daily added Blood pressure improving Continue to monitor closely (2) Headache: Complaint headache likely secondary to high blood pressure/hypertensive urgency No other associated neurological symptoms --resolved CT head: IMPRESSION: No acute intracranial process identified. As before there are subcortical and periventricular white matter hypodensities that are rather prominent for patient's stated age. While these may represent chronic microvascular ischemic changes, other considerations in this age group may include chronic migraines, hypertensive microangiopathy as well as demyelinating/autoimmune in process. further work up and management of periventricular white matter hypodensities as outpatient Chest pressure with the high blood pressure Improved and EKG and troponins are unremarkable Bedside ultrasound was done did show small pericardial effusion as before echo : Moderate concentric LVH, no regional wall motion abnormalities, EF 60 to 65%, normal pulmonary artery systolic pressure, trace mitral regurgitation, diastolic dysfunction grade 2, Small circumferential pericardial effusion, tamponade is absent, compared to study dated September 13, 2024, the pericardial effusion is relatively unchanged 07/23 ACS ruled out, trop negative x 2, EKG No signs of acute infarct Unlikely pericarditis, CRP normal, ESD elevated, no ekg changes most likely orthopnea secondary to volume overload as patient's chest pressure resolved after hemodialysis with removal of 2.5 L fluid per session (3) End stage renal disease: with history of pancreatic and renal transplant nephrology service consulted Decision was made to initiate patient on hemodialysis status post 2 sessions of hemodialysis with removal of 2 L of fluid per session Sodium bicarbonate discontinued Next hemodialysis will be on July 25 as an outpatient (4) History of pancreas transplant: (5) History of kidney transplant: (6) Immunosuppressed status: Pancreatic and renal transplant Continue current Antineoplastic medications (7) Diabetes mellitus type 1 with complications: History of diabetes with complications including Charcot joint of right foot Following pancreatic transplant he does not need any antidiabetic medications (8) Anemia: Anemia of chronic kidney disease Hemoglobin 9.5 DVT prophylaxis Subcu heparin CODE STATUS Full Disposition Discharge to home PCP follow-up in 1 week Hemodialysis session this coming Friday, July 25, 2025 Notes For Next Care Provider Medication Changes From Visit as per med rec Admission HPI Per Admitting Provider Is a 40-year-old female significant past medical history of end-stage renal disease status post simultaneous pancreas and kidney transplant in 2000 at [facility], hypertension, diabetes apparently has been complaining of high blood pressure noted at home with systolic around 200 and diastolic more than 100 and he was feeling tired with headache and some chest pressure. He denies any chest pain as such and does not have any shortness of breath associated with. Denies any abdominal pain and he does have nausea vomiting most of the time but not anything out of usual. Denies any swelling of the legs and does not have any problem with urinary or bowel habit. His blood pressure noted to be at 182/93 in the emergency room and received intravenous labetalol and the blood pressure went down to 170s or below and he got better with the symptoms as well. He was admitted [facility] telemetry unit for continuation of care. Admission Exam Per Admitting Provider Physical Exam: Lying in bed without any apparent distress Constitutional: well developed, well nourished and + ill appearing Eyes: PERRL, conjunctivae normal, anicteric sclerae ENMT: external ear and nose normal, oropharynx normal Neck: trachea midline, no thyromegaly Respiratory: no respiratory distress Auscultation: lungs clear to auscultation bilaterally Cardiovascular: Rate/Rhythm: regular rate and regular rhythm; not tachycardic Heart Sounds: normal S1 and normal S2; no murmur Extremities: no edema Gastrointestinal (Abdomen): Inspection/Auscultation: normal bowel sounds; abdomen not distended Percussion/Palpation: abdomen soft; abdomen nontender Musculoskeletal: No acute arthritis involving any joint but he has Charcot joint involving the right ankle Neurologic: normal touch/pain/proprioception and moves all extremities; no focal motor deficits Lymphatic: no cervical or axillary lymphadenopathy Discharge Exam General- oriented x 3, not in distress, speaks in sentences with no effort or accessory muscle use Eyes- anicteric Neck- no JVD Lungs- clear breath sounds bilaterally, no rales/wheezes Heart- normal rate, regular rhythm; no murmurs Abdomen- normal bowel sounds, nondistended, soft, nontender Extremities- no pretibial edema, no calf tenderness Neuro- alert, oriented x 3; no gross focal neurologic deficits Skin- warm & dry Updated Medication List Medication Instructions Recorded Confirmed Type mycophenolate sodium 180 mg 720 mg PO BID 01/24/24 07/19/25 History tablet,delayed release tacrolimus 1 mg capsule, 4 mg PO BID 01/24/24 07/19/25 History immediate-release aspirin 81 mg tablet,delayed 81 mg PO DAILY 09/13/24 07/19/25 History release sodium bicarbonate 650 mg tablet 1,950 mg PO BID 09/13/24 07/19/25 History torsemide 20 mg tablet 20 mg PO QAM 11/14/24 07/19/25 History calcitriol 0.5 mcg capsule 0.5 mcg PO DAILY 03/18/25 07/19/25 History Lokelma 10 mg PO QAM 07/19/25 07/19/25 History allopurinol 100 mg tablet 100 mg PO QAM 07/19/25 07/19/25 History amlodipine 10 mg PO QPM 07/19/25 07/19/25 History torsemide 60 mg PO QPM 07/19/25 07/19/25 History hydralazine 25 mg tablet 25 mg PO BID 30 days #60 tabs 07/23/25 Rx metoprolol tartrate 25 mg tablet 25 mg PO BID 30 days #60 tabs 07/23/25 Rx torsemide 20 mg tablet 80 mg (4 x 20 mg) PO BIDM 30 days 07/23/25 Rx #240 tabs Hospital Stay Data Consultations 07/19/25 18:29 ED Decision to Admit Stat 07/19/25 18:35 Consult Nephrology Routine Diagnostic Imagining Performed Clinical History: Chest pain and hypertension Technique: A frontal view of the chest was obtained Comparison is made to the prior examination dated 11/14/2024 Findings: There are no confluent pulmonary infiltrates. The heart is mildly enlarged. No pleural effusion or pneumothorax is seen. There is suspected mild pulmonary edema No fracture is noted. No foreign body is seen Impression: Mild cardiomegaly and mild pulmonary edema ACT 112: Positive. There are findings on this exam that require communication between the performing entity and the patient following Patient Test Result Information Act ([place] ACT 112) guidelines. Laboratory Results WBC 5.79 K/ul (4.8-10.8) 07/23/25 05:40 RBC 3.42 M/uL (4.70-6.10) L 07/23/25 05:40 Hgb 9.5 g/dL (14.0-18.0) L 07/23/25 05:40 POC Hgb 7.8 g/dl (14.0-18.0) L 07/19/25 16:59 Hct 29.4 % (42.0-52.0) L 07/23/25 05:40 POC Hct 23 % (42-52) L 07/19/25 16:59 MCV 86.0 fL (80.0-100.0) 07/23/25 05:40 MCH 27.8 pg (25.0-34.0) 07/23/25 05:40 MCHC 32.3 g/dL (32.0-36.0) 07/23/25 05:40 RDW Std Deviation 41.6 fL (36.4-46.3) 07/23/25 05:40 RDW Coeff of Ralph 13.5 % (11.5-14.5) 07/23/25 05:40 Plt Count 188 K/uL (130-400) 07/23/25 05:40 MPV 10.7 fL (9.4-12.4) 07/23/25 05:40 Immature Gran % (Auto) 0.3 % 07/23/25 05:40 Neut % (Auto) 56.0 % 07/23/25 05:40 Lymph % (Auto) 31.1 % 07/23/25 05:40 [place] % (Auto) 10.9 % 07/23/25 05:40 Eos % (Auto) 1.2 % 07/23/25 05:40 Baso % (Auto) 0.5 % 07/23/25 05:40 Neut # (Auto) 3.24 K/uL (1.40-6.50) 07/23/25 05:40 Lymph # (Auto) 1.80 K/uL (1.20-3.40) 07/23/25 05:40 Hubbard # (Auto) 0.63 K/uL (0.11-0.59) H 07/23/25 05:40 Eos # (Auto) 0.07 K/uL (0.00-0.50) 07/23/25 05:40 Baso # (Auto) 0.03 K/uL (0.00-0.20) 07/23/25 05:40 Immature Gran # (Auto) 0.02 K/uL (0.01-0.20) 07/23/25 05:40 ESR 43 mm/hr (0-15) H 07/21/25 11:20 PT 10.8 Seconds (9.0-12.0) 07/19/25 16:30 INR 1.0 (0.9-1.1) 07/19/25 16:30 APTT 28 Seconds (21-31) 07/21/25 00:37 PTT Ratio 1.0 07/21/25 00:37 POC Sodium 138 mmol/L (135-144) 07/19/25 16:59 Sodium 137 mmol/L (136-145) 07/23/25 05:40 POC Potassium 4.1 mmol/L (3.3-5.0) 07/19/25 16:59 Potassium 5.1 mmol/L (3.5-5.1) D 07/23/25 05:40 POC Chloride 108 mmol/L (101-112) 07/19/25 16:59 Chloride 102 mmol/L (98-107) 07/23/25 05:40 Carbon Dioxide 25 mmol/L (21-32) 07/23/25 05:40 POC Total CO2 16 mmol/L (24-31) L 07/19/25 16:59 Anion Gap 10 (3-11) 07/23/25 05:40 POC Anion Gap 20.0 mmol/L (16-25) 07/19/25 16:59 POC BUN 101 mg/dl (7-18) H* 07/19/25 16:59 BUN 63 mg/dl (6-23) H D 07/23/25 05:40 Creatinine 5.31 mg/dl (0.6-1.4) H* D 07/23/25 05:40 POC Creatinine 8.2 mg/dl (0.6-1.3) H* 07/19/25 16:59 Est Cr Clr Drug Dosing 17.3 ml/min 07/23/25 05:40 eGFR 13.08 07/23/25 05:40 BUN/Creatinine Ratio 11.9 (10-20) 07/23/25 05:40 Glucose 86 mg/dl (70-99(Fasting)) 07/23/25 05:40 POC Glucose 98 mg/dl (70-99) 07/21/25 00:54 POC Glucose (other) 84 mg/dl (70-99) 07/19/25 16:59 Calcium 8.3 mg/dl (8.6-10.3) L 07/23/25 05:40 POC Ioniz Calcium Ale 1.01 mmol/l (1.12-1.32) L 07/19/25 16:59 Phosphorus 8.9 mg/dl (2.5-4.9) H 07/20/25 07:56 Magnesium 1.7 mg/dl (1.7-2.4) 07/20/25 07:56 Total Bilirubin 0.3 mg/dl (0.2-1.0) 07/23/25 05:40 AST 9 U/L (13-39) L 07/23/25 05:40 ALT 8 U/L (7-52) 07/23/25 05:40 Alkaline Phosphatase 42 U/L (34-104) 07/23/25 05:40 Troponin I High Sens 8.1 pg/ml (0-20) 07/21/25 11:20 C-Reactive Protein < 0.50 mg/dl (0-0.5) 07/21/25 11:20 Total Protein 5.6 gm/dl (6.0-8.3) L 07/23/25 05:40 Albumin 3.2 gm/dl (3.4-5.0) L 07/23/25 05:40 Globulin 2.4 gm/dl (2.5-4.0) L 07/23/25 05:40 Albumin/Globulin Ratio 1.3 (0.9-2) 07/23/25 05:40 Lipase 35 U/L (11-82) 07/19/25 16:30 TSH 3.145 uIu/ml (0.300-4.500) 07/19/25 16:30 Urine Color Yellow 07/19/25 17:25 Urine Appearance Clear (Clear) 07/19/25 17:25 Urine pH 6.0 (4.5-7.5) 07/19/25 17:25 Ur Specific [place] 1.015 (1.000-1.030) 07/19/25 17:25 Urine Protein 4+ (Negative) H 07/19/25 17:25 Urine Glucose (UA) Trace (Negative) H 07/19/25 17: Urine Ketones Negative (Negative) 07/19/25 17: Urine Blood 1+ (Negative) H 07/19/25 17:25 Urine Nitrite Negative (Negative) 07/19/25 17: Urine Bilirubin Negative (Negative) 07/19/25 17: Urine Urobilinogen Negative (Negative) 07/19/25 17: Ur Leukocyte Esterase Negative (Negative) 07/19/25 17:25 Urine WBC (Auto) 0-5 /hpf (0-5) 07/19/25 17:25 Urine RBC (Auto) 0-2 /hpf (0-2) 07/19/25 17:25 U Hyaline Cast (Auto) 0-2 /lpf (0-2) 07/19/25 17:25 U Epithel Cells (Auto) 0-2 /hpf (0-2) 07/19/25 17:25 Urine Bacteria (Auto) None Seen (None Seen) 07/19/25 17:25 Urine Comment 07/19/25 17:25 Hep Bs Antigen Negative (Negative) 07/21/25 17:51 Hep Bs Antibody Immune 07/21/25 17:51 Hep Bs Antibody, Quant > 500.00 mIU/mL (>or=10mIU/mL Immune) 07/21/25 17:51 Impressions Chest X-Ray 07/19/25 16:19 Clinical History: Chest pain and hypertension Technique: A frontal view of the chest was obtained Comparison is made to the prior examination dated 11/14/2024 Findings: There are no confluent pulmonary infiltrates. The heart is mildly enlarged. No pleural effusion or pneumothorax is seen. There is suspected mild pulmonary edema No fracture is noted. No foreign body is seen Impression: Mild cardiomegaly and mild pulmonary edema ACT 112: Positive. There are findings on this exam that require communication between the performing entity and the patient following Patient Test Result Information Act ([place] ACT 112) guidelines. Electronically signed by Jude Kaufman 07-19-2025 5:[address] 07/20/25 17:47 CT HEAD: HISTORY: Headaches TECHNIQUE: Noncontrast CT examination of the head is performed. Coronal and sagittal reformats were created. COMPARISON: Brain CT July 03, 2024 FINDINGS: There is no evidence of intracranial hemorrhage, focal mass effect or midline shift. No fluid collection is identified. The ventricular system is midline and symmetric. No evidence of acute major vascular territory infarction. As before there are subcortical and periventricular white matter hypodensities that are rather prominent for patient's stated age. No calvarial fracture is identified. The paranasal sinuses and mastoids are well aerated. IMPRESSION: No acute intracranial process identified. As before there are subcortical and periventricular white matter hypodensities that are rather prominent for patient's stated age. While these may represent chronic microvascular ischemic changes, other considerations in this age group may include chronic migraines, hypertensive microangiopathy as well as demyelinating/autoimmune in process. Electronically signed by Elliott Moore 07-20-2025 6:55 PM Pending Results Patient Have Any Pending Studies at Discharge: No Discharge Instructions Given to Patient (Per Discharging Provider) PLEASE REFER TO YOUR NEW MEDICATION LIST AND FOLLOW INSTRUCTIONS CAREFULLY. YOUR NEW MEDICATIONS INCLUDE: Hydralazine, Metoprolol-for blood pressure control Increase your torsemide to 80 mg PLEASE CALL YOUR PRIMARY CARE PHYSICIAN OR RETURN TO THE ER IF WITH WORSENING OF SYMPTOMS, INCLUDING shortness of breath, chest pain, headache, dizziness, weakness, fevers or chills, etc. FOLLOW UP WITH PRIMARY CARE PHYSICIAN OUTLINED ABOVE. Your next hemodialysis session will be on Friday, July 25, 2025. Total Time Total Time Spent Total Time Spent (In Minutes): 40 minutes
[2025-07-23] MEDS: HEPARIN SOD (PORCINE) 1000 UNIT/ML IV SCH (16:09)
[2025-07-23] MEDS: HEPARIN SOD (PORCINE) 1000 UNIT/ML IV ONE (16:09)
[2025-07-23] MEDS: EPOETIN ALFA 10,000 UNITS/ML VIAL IV ONE (16:10)
[2025-07-23 18:12] VITALS: TEMP 97.7; O2SAT 96
[2025-07-23 18:19] VITALS: PULSE 77
--- NOTE | 2025-07-23 19:00 | Communication Note ---
Date of Service: July 23, 2025 Patient complained of right upper extremity numbness briefly for several minutes half hour after dialysis session after he had his supper. Patient's attending physician requested the undersigned to assess the patient. Patient was assessed at bedside, RN at bedside. Patient states that he had right upper extremity numbness and right facial numbness and transient expressive aphasia. Per RN, patient did not have any focal weakness or any concerns for slurred speech or aphasia and he was maintaining good communication/articulation. When asked in d epth he stated he is not sure if his face was numb or he was just being anxious. By the time I reached at bedside, patient reported resolution in his numbness and denies any aphasia. Patient's vitals were stable, blood pressure was WNL. Patient did not have any headache or blurring of vision. Patient denied any focal weakness of his arms and limbs. On exam: No slurring of speech, no tongue deviation, power 5 out of 5 all 4 extremities, sensation all 4 extremities intact, heart/lung/abdominal examination WNL. Vitals are stable. Advised patient for lab and CT scan work, patient declined any further work and stated that he needs to go home as he has his transport arriving. Patient was explained the importance of ruling out electrolyte abnormalities and possibility of stroke, he declined further tests and demanded he be allowed to leave immediately. Patient was advised to come back to the hospital if this issue comes back again. Patient voiced understanding. RN was at bedside.
[2025-07-23 19:20] VITALS: BP 127/80
== END 2025-07-23 19:25 | disposition home or self-care (01) | DRG 304 ==
LOC: ED 16:06 → SUATTDRO 18:11 → 2N 18:11
DX: Z87.891 Personal history of nicotine dependence; I16.0 Hypertensive urgency; I12.0 Hypertensive chronic kidney disease with stage 5 chronic kidney disease or end stage renal disease; I31.39 Other pericardial effusion (noninflammatory); Z82.49 Family history of ischemic heart disease and other diseases of the circulatory system; R07.89 Other chest pain; D63.1 Anemia in chronic kidney disease; T86.12 Kidney transplant failure; E10.610 Type 1 diabetes mellitus with diabetic neuropathic arthropathy; Z79.899 Other long term (current) drug therapy; Z79.624 Long term (current) use of inhibitors of nucleotide synthesis; Z94.83 Pancreas transplant status; Z88.6 Allergy status to analgesic agent; Y83.0 Surgical operation with transplant of whole organ as the cause of abnormal reaction of the patient, or of later complication, without mention of misadventure at the time of the procedure; E10.22 Type 1 diabetes mellitus with diabetic chronic kidney disease; R51.9 Headache, unspecified; D84.9 Immunodeficiency, unspecified; Z79.82 Long term (current) use of aspirin; Z83.3 Family history of diabetes mellitus; N17.9 Acute kidney failure, unspecified; I16.1 Hypertensive emergency; N18.6 End stage renal disease; R20.0 Anesthesia of skin; Z79.621 Long term (current) use of calcineurin inhibitor